=== PATIENT | female | born 1960 | race Caucasian/White ===

== ENCOUNTER 2022-06-18 08:00 | Outpatient (CLI) | payer BC, SELFPAY ==
--- NOTE | 2022-06-18 08:15 | MR_ITS ---
[facility] [address] [facility] [address] Phone:?[phone] Fax:?[phone] Referring Physician Information: José Miguel Camacho [address] [facility] [address] Phone:?[phone] Fax:?[phone] Patient:Glen Buitrago D.O.B:?1960 Sex:?Female Phone:?[phone] [facility] MRN:?[id number] Exam Date:?06/18/2022 ? EXAM: MRI EXAMINATION OF THE LEFT FOOT CLINICAL INFORMATION: Left foot pain. Status post injury. No history of surgery to this area. Evaluate lateral dorsal pain. TECHNICAL INFORMATION: Axial PD and STIR. Coronal T1, T2 and STIR. Sagittal PD and T2-weighted images acquired. INTERPRETATION: Bones and joints: DJD with minimal subchondral cystic change involving the first MTP joint. No evidence for an acute fracture or osseous contusion. No abnormal marrow edema pattern or evidence for periostosis to indicate occult stress reaction or stress fracture. No discrete osteochondral lesion or discrete lesion to indicate AVN. Mild osseous cystic changes within the tibial and fibular hallux sesamoid bones. No other marrow edema pattern identified. Ligaments: The Lisfranc ligament is intact. TMT joint alignment appears within normal limits. Collateral ligaments at the MTP joints appear intact without acute sprain or tear. Tendons: Partially visualized mild changes of peroneal tenosynovitis traversing the lateral foot. No evidence for a tendon tear or appreciable changes of tendinopathy. Remainder of the visualized flexor and extensor tendons appear intact without significant tendinopathy, and without tenosynovitis, tendon split or tendon disruption. Soft tissues: Mild to moderate fluid and edema signal between the third and fourth metatarsal heads. No evidence for a more discrete mass lesion. No other soft tissue cyst, mass or fluid collection. CONCLUSION: 1. No evidence for an occult fracture, osseous contusion or osteochondral lesion. 2. Partially visualized mild changes of peroneal tenosynovitis traversing the lateral foot. 3. Mild to moderate bursitis between the third and fourth metatarsal heads. 4. Mild first MTP joint osteoarthritis. Mild osseous cystic change to indicate additional degeneration involving the tibial and fibular hallux sesamoid bones. KES Electronically signed on 06/18/2022 1:35:00 PM by Bandar Cutler M.D.
== END 2022-06-18 08:01 | disposition home or self-care (01) ==
LOC: MRI 08:02
PROVIDERS: Visit Provider Physician Assistant Surgical
DX: S99.922A Unspecified injury of left foot, initial encounter (principal); M79.672 Pain in left foot; M77.52 Other enthesopathy of left foot and ankle; M19.072 Primary osteoarthritis, left ankle and foot
CPT/HCPCS: 73718

== ENCOUNTER 2022-12-09 13:42 | Emergency (ER) | payer BC, SELFPAY ==
[2022-12-09 14:02] VITALS: BP 107/75; PULSE 81; RESP 16; TEMP 35.8; O2SAT 98; BMI 28.7
--- NOTE | 2022-12-09 14:26 | ED.NURSE ---
Signed a Refusal of Services form at 1425 Pt left without being seen.
== END 2022-12-09 14:32 | disposition home or self-care (01) ==
LOC: ED 14:26
DX: Z53.21 Procedure and treatment not carried out due to patient leaving prior to being seen by health care provider (principal)

== ENCOUNTER 2022-12-10 08:46 | Emergency (ER) | payer BC, SELFPAY ==
[2022-12-10] VITALS (16 sets, daily range): BP systolic 109–130; BP diastolic 69–94; PULSE 75–96; RESP 18; TEMP 36.5; O2SAT 94–100; BMI 28.7
--- NOTE | 2022-12-10 09:26 | CRLHL7_ITS ---
For Patients: As a result of the Century Cures Act, medical imaging exams and procedure reports are released immediately into your electronic medical record. You may view this report before your referring provider. If you have questions, please contact your health care provider. INDICATION: Epigastric pain for 6 weeks TECHNIQUE: Axial images were obtained from the diaphragm to the pubic symphysis. Reformats were obtained in the coronal and sagittal plane. IV Contrast: 79 cc Isovue 370 Oral Contrast: None COMPARISON: Abdomen and pelvis CT 07/09/2017 FINDINGS: Lower chest: Unremarkable. Liver: Unremarkable. Normal in size and attenuation. No masses. Gallbladder and bile ducts: Gallbladder is not seen suggesting prior cholecystectomy. Minimal intrahepatic biliary dilatation. Common duct measures 10 millimeters. Spleen: Unremarkable. Normal in size without mass. Pancreas: Unremarkable. No mass or inflammation. Adrenal glands: Unremarkable. No nodules. Kidneys: The left kidney is unremarkable. Status post right nephrectomy. Vasculature: Unremarkable. GI tract: The stomach is unremarkable. No dilated loops of large or small intestine. However, there is some bowel wall thickening involving the distal ileum and terminal ileum with some mucosal hyperemia. Mild muscular atrophy of the right oblique musculature, suspect prior surgery at this level (series 2, image 64). Pelvis: Unremarkable. Bones: Mild degenerative disc disease lumbar spine. IMPRESSION: 1. Wall thickening involving the distal and terminal ileum with mucosal hyperemia consistent with an enteritis. Differential diagnosis includes inflammatory bowel disease and infectious enteritis. 2. Status post apparent cholecystectomy with minimal dilatation of the intrahepatic biliary tree and borderline diameter of the common duct. Suspect this represents post cholecystectomy reservoir effect although correlation with liver function studies can be performed. If there is a cholestatic picture, MRCP may have improved characterization. Please note that all CT scans at this facility use dose modulation, iterative reconstruction, and/or weight-based dosing when appropriate to reduce radiation dose to as low as reasonably achievable. Dictated by Dontae Stratton MD @ 12/10/2022 12:01:39 PM (Electronically Signed)
[2022-12-10] MEDS: ONDANSETRON 2 MG/ML inj 4 MG IVP (09:47)
[2022-12-10] MEDS: 0.9 % SODIUM CHLORIDE 1000 ml 1,000 ML IV (09:47)
[2022-12-10] MEDS: HYDROmorphone 0.5 mg/0.5 ml inj IVP (09:47)
[2022-12-10 09:49] LABS: Basophils Absolute Auto 0.02 K/uL (0.00-0.30); Basophils Percent Auto 0.3 % (0.0-3.0); Eosinophils Absolute Auto 0.17 K/uL (0.00-0.50); Eosinophils Percent Auto 2.8 % (0.0-7.0); Hemoglobin* 11.6 gm/dL (12.0-16.0); Immature Granulocytes Abs Auto 0.03 K/uL (0.00-0.30); Immature Granulocytes Pct Auto 0.5 %; Lymphocytes Absolute Auto 1.31 K/uL (0.90-2.90); Lymphocytes Percent Auto 21.4 % (20-44); Mean Corpuscular HGB Conc 31 gm/dL (32-36); Mean Corpuscular Hemoglobin 26 pg (26-34); Mean Corpuscular Volume 83 fL (80-100); Neutrophils Absolute Auto 4.17 K/uL (1.7-7.0); Platelet Count* 306 K/uL (140-440); RDW Coefficient of Variation % 13.9 % (11.5-15.5); Red Blood Count 4.44 m/uL (4.00-5.20); White Blood Count* 6.13 K/uL (4.50-11.00)
[2022-12-10 09:51] LABS: Slide Review Reflex No
[2022-12-10 09:58] LABS: Appearance Urine Clear (Clear); Bilirubin Urine Negative (Negative); Blood Urine Negative (Negative); Color Urine Yellow (Yellow); Glucose Urine Negative (Negative); Ketones Urine Negative (Negative); Leukocyte Esterase Urine Negative (Negative); Nitrite Urine Negative (Negative); Protein Urine Negative (Negative); Specific Gravity Urine <= 1.005 (1.000-1.030); Urobilinogen Urine 0.2 (0.2-1.0); pH Urine 5.5 (5.0-8.5)
[2022-12-10 10:02] LABS: Albumin* 3.7 g/dL (3.3-5.0); Chloride* 107 mmol/L (96-114); Potassium* 4.1 mmol/L (3.6-5.1); Sodium* 137 mmol/L (135-149)
[2022-12-10 10:04] LABS: Amylase* 43 U/L (18-89); Carbon Dioxide* 25 mmol/L (20-32); Creatinine* 1.1 mg/dL (0.5-1.5); Estimated Glomerular Filt Rate 56 ml/min; Total Protein* 6.4 g/dL (6.0-8.3)
[2022-12-10 10:05] LABS: Alkaline Phosphatase* 81 U/L (40-150); Aspartate Amino Transferase* 19 U/L (12-35); Bilirubin Direct* 0.3 mg/dL (0.0-0.5); Bilirubin Total* 0.4 mg/dL (0.1-1.5); Blood Urea Nitrogen* 13 mg/dL (7-30); Calcium* 8.8 mg/dL (8.4-10.6); Glucose* 104 mg/dL (60-115); Lipase* 93 U/L (23-300)
[2022-12-10 10:06] LABS: Alanine Aminotransferase* 16 U/L (4-35)
--- NOTE | 2022-12-10 10:12 | ED_ITS ---
HPI - Abdominal Pain General Date Seen: 12/10/22 Chief Complaint: Abdominal Pain Stated Complaint: Abdominal Pain/Diarrhea Time Seen by Provider: 12/10/22 08:49 Source: patient Mode of arrival: ambulatory Limitations: no limitations History of Present Illness HPI narrative: Patient is a 62-year-old female presents here for evaluation of epigastric discomfort, she has had for the past 6 weeks. It has gradually been worse, the last 3 weeks she has lost approximately 15 lb, whenever she eats she gets the epigastric discomfort. It is always there at a low level but worse, with any sort to eating. A little bit of radiation to her back, but no other radiation anywhere else, she has tried a number remedies including Tums, Pepto-Bismol. But these have not really given her relief. She came to the emergency room yesterday but because of the wait times left, as she had another appointment. She is having some diarrhea she describes 3-4 stools per day, loose, is somewhat dark, but no blood within them. She has also vomited a couple times also did with this. Pain most recently over the weekend but there is no blood or darkening over vomit. She does have a previous history of endoscopy at least 10 years ago, for reflux. Colonoscopy was also done 10 years ago, History of previous cholecystectomy, appendectomy, and or right-sided nephrectomy done for the indication of renal cell cancer. She is taking her medications as directed, she takes nonsteroidals every day for chronic headaches and has done so for greater than 6 years. MD elicited complaint: abdominal pain Related Data Patient : No Home Medications Medication Instructions Recorded Confirmed esomeprazole magnesium 40 mg 40 mg PO DAILY 05/09/22 12/09/22 capsule,delayed release montelukast 10 mg tablet 10 mg PO QDAY 05/09/22 12/09/22 nortriptyline 25 mg capsule 25 mg PO QDAY 05/09/22 12/09/22 trazodone 100 mg tablet 200 mg PO QDAY 05/09/22 12/09/22 acetaminophen 650 mg 650 mg PO Q8H 05/10/22 12/09/22 tablet,extended release (Tylenol Arthritis Pain) ascorbic acid (vitamin C) 500 mg mg PO 05/10/22 12/09/22 capsule zinc gluconate 100 mg tablet 100 mg PO ONCE 05/10/22 12/09/22 Previous Rx's Medication Instructions Recorded albuterol sulfate 90 mcg/actuation 2 inh inhalation Q6-8H PRN 05/16/22 aerosol inhaler shortness of breath or wheezing #6.7 ea oxycodone-acetaminophen 5 mg-325 1 tab PO QID PRN pain #14 tabs 12/10/22 mg tablet (Percocet) sucralfate 1 gram tablet (Carafate) 1 g PO TID #90 tabs 12/10/22 Allergies Allergy/AdvReac Type Severity Reaction Status Date / Time aspirin Allergy Intermediate emesis Verified 12/10/22 10:52 codeine Allergy Intermediate emesis Verified 12/10/22 10:52 house dust Allergy Intermediate Difficulty Verified 12/10/22 10:52 Breathing mold Allergy Intermediate Difficulty Verified 12/10/22 10:52 Breathing Penicillins Allergy Intermediate Swelling Verified 12/10/22 10:52 of Lip/Tongue/Throat sumatriptan Allergy Unknown Verified 12/10/22 10:52 Review of Systems Status of ROS Reports: 10 or more systems reviewed and unremarkable except as noted in History and below PFSH PFS Medical History Fracture of left foot ?S92.902A - Unspecified fracture of left foot, initial encounter for closed fracture (ICD-10) Surgical History Fibroids ?D21.9 - Benign neoplasm of connective and other soft tissue, unspecified (ICD-10) H/O arthroscopy of right knee ?Z98.890 - Other specified postprocedural states (ICD-10) H/O esophagogastroduodenoscopy ?Z98.890 - Other specified postprocedural states (ICD-10) H/O: hysterectomy ?Z90.710 - Acquired absence of both cervix and uterus (ICD-10) History of appendectomy ?Z90.49 - Acquired absence of other specified parts of digestive tract (ICD- 10) History of unilateral nephrectomy ?Z90.5 - Acquired absence of kidney (ICD-10) Hx of cholecystectomy ?Z90.49 - Acquired absence of other specified parts of digestive tract (ICD- 10) Status post surgical manipulation of ankle joint ?Z98.890 - Other specified postprocedural states (ICD-10) Family History Sister Breast cancer Brother Lung cancer Mother Coronary artery disease Stroke Brain aneurysm Unknown High blood pressure Paternal Grandmother Diabetes Uncle Prostate cancer Social History Smoking Status: Former smoker Do you use any of these nicotine containing products: None Second hand tobacco smoke exposure: No How often do you have a drink containing alcohol: never AUDIT-C Alcohol total score: 0 Non-prescribed substance use: denies use Exam Narrative: Exam Narrative: Patient is seen and stabilization room 2, she has no distress speaking to me normally, her pupils are equal round reactive to light, there is no scleral icterus redness or TMs are normal her oropharynx is normal there is no lymphadenopathy anterior posterior chains, chest is good air entry bilaterally w ith no wheezing crackles noted no splinting, no signs of respiratory distress. Heart sounds no clicks murmurs or gallops are noted, there is no tenderness to palpation over chest she is very tender on light tell palpation over her epigastric region, in right upper quadrant region. Bowel sounds are normal throughout all other areas, she has a little bit of tenderness lower down, there is no peritoneal signs, no CVA tenderness, no hernias noted. No organomegaly from what I can see. Lower extremity show no pitting edema swelling she moves extremities independently and well. Skin reveals no petechiae rashes, she is neurologically intact in her upper lower extremities, and moves normally. Const: Vital Signs, click to edit/add: Vital Signs - 24 hr 12/10/22 08:53 12/10/22 09:58 12/10/22 10:00 Temperature 97.7 F Pulse Rate 82 Pulse Rate [Pulse Oximeter] 96 92 Respiratory Rate 18 18 Blood Pressure Blood Pressure [Ri ght Upper Arm] 128/82 130/94 H Pulse Oximetry 100 100 99 Oxygen Delivery Me thod Room Air Room Air 12/10/22 10:01 12/10/22 10:30 12/10/22 10:31 Temperature Pulse Rate 75 84 81 Pulse Rate [Pulse Oximeter] Respiratory Rate Blood Pressure 110/78 109/80 Blood Pressure [Ri ght Upper Arm] Pulse Oximetry 99 96 99 Oxygen Delivery Me thod 12/10/22 11:00 12/10/22 11:01 12/10/22 11:10 Temperature Pulse Rate 81 90 Pulse Rate [Pulse Oximeter] Respiratory Rate Blood Pressure 117/79 Blood Pressure [Ri ght Upper Arm] Pulse Oximetry 98 98 Oxygen Delivery Me thod 12/10/22 11:30 12/10/22 11:31 12/10/22 12:00 Temperature Pulse Rate 88 79 76 Pulse Rate [Pulse Oximeter] Respiratory Rate Blood Pressure 120/77 Blood Pressure [Ri ght Upper Arm] Pulse Oximetry 95 96 97 Oxygen Delivery Me thod 12/10/22 12:01 12/10/22 12:02 12/10/22 12:30 Temperature Pulse Rate 82 76 75 Pulse Rate [Pulse Oximeter] Respiratory Rate Blood Pressure 112/69 Blood Pressure [Ri ght Upper Arm] Pulse Oximetry 94 96 96 Oxygen Delivery Me thod 12/10/22 12:31 Temperature Pulse Rate 80 Pulse Rate [Pulse Oximeter] Respiratory Rate Blood Pressure 116/75 Blood Pressure [Ri ght Upper Arm] Pulse Oximetry 96 Oxygen Delivery Me thod Documenting provider has reviewed patient's vital signs: yes Course Course Hospital Course: Discussed with the patient, her CT shows some mild thickening possibly concerning for ileitis, given her pain however I think this is more likely upper GI in nature, I spoke to both Dr. Alejandra Solo from General surgery, and also Dr. Dagoberto Norwood. Patient is stable, and I think would benefit from a urgent upper endoscopy, explained this to the patient also, we will try to make this happen either or Friday this week, will put the patient on Carafate, continue with her proton pump inhibitor, give her some pain medication, if she has any bleeding, increasing pain, or other issue she will come back to the ER, but I think this is a good plan, if this is upper endoscopy is negative then the workup will go forward for the other possibilities including inflammatory bowel disease. Reassuring CT is discussed with her. Vital Signs Vital signs: Initial Vital Signs Temperature 97.7 F 12/10/22 08:53 Temperature Source Temporal Artery Scan 12/10/22 08:53 Pulse Rate 96 12/10/22 08:53 Respiratory Rate 18 12/10/22 08:53 Blood Pressure 128/82 12/10/22 08:53 Blood Pressure Mean 97 12/10/22 08:53 Blood Pressure Position Sitting 12/10/22 08:53 Pulse Oximetry 100 12/10/22 08:53 Oxygen Delivery Method Room Air 12/10/22 08:53 Vital Signs Temperature 97.7 F 12/10/22 08:53 Pulse Rate 96 12/10/22 08:53 Respiratory Rate 18 12/10/22 08:53 Blood Pressure 128/82 12/10/22 08:53 Pulse Oximetry 100 12/10/22 08:53 Oxygen Delivery Method Room Air 12/10/22 08:53 Temperature 97.7 F 12/10/22 08:53 Pulse Rate 80 12/10/22 12:31 Respiratory Rate 18 12/10/22 09:58 Blood Pressure 116/75 12/10/22 12:31 Pulse Oximetry 96 12/10/22 12:31 Oxygen Delivery Method Room Air 12/10/22 09:58 MDM - Abdominal Pain MDM Narrative Medical decision making narrative: During the evaluation of this patient I considered multiple differential diagnosis including life-threatening differentials which are appendicitis, aortic aneurysm, mesenteric ischemia, bowel perforation, ectopic , volvulus and bowel obstruction, other differential diagnosis include but are not limited to inflammatory bowel disease, cholecystitis, pancreatitis, hepatitis, gastritis, GERD, diverticulitis, peptic ulcer disease, pyelonephritis/UTI, renal colic/stone, pelvic inflammatory disease, cervicitis, endometritis, intrauterine , dysfunctional uterine bleeding, ovarian cyst/torsion, spontaneous as well as other etiologies Medical Records Attestation: I reviewed the patient's medical records. Lab Data Attestation: I reviewed the patient's lab results. Lab results narrative: Mildly low hemoglobin that is slightly lower than previous. Labs: Lab Results 12/10/22 Range/Units 09:40 WBC 6.13 (4.50-11.00) K/uL RBC 4.44 (4.00-5.20) m/uL Hgb 11.6 L (12.0-16.0) gm/dL Hct 37.0 (33.0-51.0) % MCV 83 (80-100) fL MCH 26 (26-34) pg MCHC 31 L (32-36) gm/dL RDW Coeff of Myriam 13.9 (11.5-15.5) % Plt Count 306 (140-440) K/uL Neut % (Auto) 68.0 (42.0-72.0) % Lymph % (Auto) 21.4 (20-44) % [place] % (Auto) 7.0 (0.0-11.0) % Eos % (Auto) 2.8 (0.0-7.0) % Baso % (Auto) 0.3 (0.0-3.0) % Neut # (Auto) 4.17 (1.7-7.0) K/uL Lymph # (Auto) 1.31 (0.90-2.90) K/uL [place] # (Auto) 0.40 (0.00-0.90) K/UL Eos # (Auto) 0.17 (0.00-0.50) K/uL Baso # (Auto) 0.02 (0.00-0.30) K/uL Sodium 137 (135-149) mmol/L Potassium 4.1 (3.6-5.1) mmol/L Chloride 107 (96-114) mmol/L Carbon Dioxide 25 (20-32) mmol/L BUN 13 (7-30) mg/dL Creatinine 1.1 (0.5-1.5) mg/dL Estimated Creat Clear 43.30 Estimated GFR 56 ml/min Glucose 104 (60-115) mg/dL Calcium 8.8 (8.4-10.6) mg/dL Total Bilirubin 0.4 (0.1-1.5) mg/dL Direct Bilirubin 0.3 (0.0-0.5) mg/dL AST 19 (12-35) U/L ALT 16 (4-35) U/L Alkaline Phosphatase 81 (40-150) U/L Total Protein 6.4 (6.0-8.3) g/dL Albumin 3.7 (3.3-5.0) g/dL Amylase 43 (18-89) U/L Lipase 93 (23-300) U/L Urine Color Yellow (Yellow) Urine Appearance Clear (Clear) Urine pH 5.5 (5.0-8.5) Ur Specific [place] <= 1.005 (1.000-1.030) Urine Protein Negative (Negative) Urine Glucose (UA) Negative (Negative) Urine Ketones Negative (Negative) Urine Blood Negative (Negative) Urine Nitrite Negative (Negative) Urine Bilirubin Negative (Negative) Urine Urobilinogen 0.2 (0.2-1.0) Ur Leukocyte Esterase Negative (Negative) Urine RBC 0-2 (0-2) Urine WBC 0-2 (0-5) Ur Squamous Epith Cells None (None-Few) Urine Bacteria Few A (None) Ethyl Alcohol < 0.01 L (0.01-0.03) % SARS-CoV-2 (PCR) Negative SARS-CoV-2 (Negative) Influenza Type A (PCR) Negative PCR FLU A (Negative) Influenza Type B (PCR) Negative PCR FLU B (Negative) RSV (PCR) Negative PCR RSV (Negative) POC Troponin I 0.00 L (0.01-0.04) ng/ml Imaging Data CT scan - abdomen: Attestation: I have reviewed the pertinent imaging results. Radiologist's impression: atient: BEVERLEY GONZALES Facility:?[facility] Patient ID:?[id number] Site Patient ID:?[id number]. Site :?[id number] Study:?CT Abdomen/Pelvis W/ 79CC [id number] 10:56:19 AM Ordering Physician:Bessie Nunez Final Report: INDICATION: Epigastric pain for 6 weeks TECHNIQUE: Axial images were obtained from the diaphragm to the pubic symphysis. Reformats were obtained in the coronal and sagittal plane. IV Contrast: 79 cc Isovue 370 Oral Contrast: None COMPARISON: Abdomen and pelvis CT 07/09/2017 FINDINGS: Lower chest: Unremarkable. Liver: Unremarkable. Normal in size and attenuation. No masses. Gallbladder and bile ducts: Gallbladder is not seen suggesting prior cholecystectomy. Minimal intrahepatic biliary dilatation. Common duct measures 10 millimeters. Spleen: Unremarkable. Normal in size without mass. Pancreas: Unremarkable. No mass or inflammation. Adrenal glands: Unremarkable. No nodules. Kidneys: The left kidney is unremarkable. Status post right nephrectomy. Vasculature: Unremarkable. GI tract: The stomach is unremarkable. No dilated loops of large or small intestine. However, there is some bowel wall thickening involving the distal ileum and terminal ileum with some mucosal hyperemia. Mild muscular atrophy of the right oblique musculature, suspect prior surgery at this level (series 2, image 64). Pelvis: Unremarkable. Bones: Mild degenerative disc disease lumbar spine. IMPRESSION: 1. Wall thickening involving the distal and terminal ileum with mucosal hyperemia consistent with an enteritis. Differential diagnosis includes inflammatory bowel disease and infectious enteritis. 2. Status post apparent cholecystectomy with minimal dilatation of the intrahepatic biliary tree and borderline diameter of the common duct. Suspect this represents post cholecystectomy reservoir effect although correlation with liver function studies can be performed. If there is a cholestatic picture, MRCP may have improved characterization. Please note that all CT scans at this facility use dose modulation, iterative reconstruction, and/or weight-based dosing when appropriate to reduce radiation dose to as low as reasonably achievable. Dictated by Dontae Stratton MD @ 12/10/2022 12:01:39 PM (Electronic Signature) Discharge Plan Discharge Clinical Impression: Abdominal pain Patient Disposition: Home w/ Parent or Adult Condition: Stable Instructions: Gastritis (ED), Diet for Stomach Ulcers and Gastritis (ED), GERD (Gastroesophageal Reflux Disease) (DC), Abdominal Pain (ED), Upper Endoscopy (DC) Additional Instructions: home,rest and clear fluids, Endoscopy on friday, discussed with and , if vomiting is worse, or passing blood then return to the ER Activity Level: Light activity Discharge Diet: Full Liquid and Clear Liquid Prescriptions: New sucralfate [Carafate] 1 gram tablet 1 g PO TID Qty: 90 2RF oxycodone-acetaminophen [Percocet] 5-325 mg tablet 1 tab PO QID PRN (Reason: pain) Qty: 14 0RF No Action zinc gluconate 100 mg tablet 100 mg PO ONCE ascorbic acid (vitamin C) 500 mg capsule PO acetaminophen [Tylenol Arthritis Pain] 650 mg tablet extended release 650 mg PO Q8H trazodone 100 mg tablet 200 mg PO QDAY esomeprazole magnesium 40 mg capsule,delayed release(DR/EC) 40 mg PO DAILY montelukast 10 mg tablet 10 mg PO QDAY Patient Comments: TAKE 1 TAB BY MOUTH AT BEDTIME nortriptyline 25 mg capsule 25 mg PO QDAY albuterol sulfate 90 mcg/actuation HFA aerosol inhaler 2 inh inhalation Q6-8H PRN (Reason: shortness of breath or wheezing) Qty: 6.7 5RF Follow Up/Referrals: Andrew Israel PA-C [Primary Care Provider] - Stand Alone Forms: [employer] Info Instructions
[2022-12-10 10:13] LABS: Ethanol* < 0.01 % (0.01-0.03)
[2022-12-10 10:22] LABS: Bacteria Urine Few; RBC Urine 0-2 (0-2); WBC Urine 0-2 (0-5)
[2022-12-10 10:26] LABS: PCR FLU A Negative PCR FLU A (Negative); PCR FLU B Negative PCR FLU B (Negative); PCR RSV Negative PCR RSV (Negative)
[2022-12-10 10:27] LABS: SARS PCR* Negative SARS-CoV-2 (Negative)
[2022-12-10] MEDS: MORPHINE 4 MG/ML INJ IVP (11:56)
== END 2022-12-10 12:40 | disposition home or self-care (01) ==
PROVIDERS: Emergency Provider Family Medicine; PCP Physician Assistant Medical
DX: R10.13 Epigastric pain (principal)
CPT/HCPCS: 36415; 74177; 80048; 80076; 81001; 82077; 82150; 83690; 84484; 85025; 87086; 87186; 87631; 96374; 96375; 99284; J1170; J2270; J2405; J7030; Q9967

== ENCOUNTER 2022-12-13 08:00 | Outpatient (CLI) | payer BC, SELFPAY ==
--- NOTE | 2022-12-13 09:49 | W.ANESCHARGE ---
Anesthesia Charges Start Date/Time Anesthesia Start Date: 12/13/22 Anesthesia Start Time: 09:29 Stop Date/Time Anesthesia Stop Date: 12/13/22 Anesthesia Stop Time: 09:46
== END 2022-12-13 08:01 | disposition home or self-care (01) ==
PROVIDERS: PCP Physician Assistant Medical; Visit Provider Internal Medicine
DX: R19.8 Other specified symptoms and signs involving the digestive system and abdomen (principal)
CPT/HCPCS: 00731; 43239; 88305; 88342; J2405; J3490

== ENCOUNTER 2023-01-02 08:59 | Outpatient (CLI) | payer BC, SELFPAY | END 2023-01-02 09:00 | disposition home or self-care (01) | LOC: NFLDREF 01-04 08:21 | PROVIDERS: PCP Physician Assistant Medical; Referring Provider Physician Assistant Medical; Visit Provider Physician Assistant Medical | DX: R19.7 Diarrhea, unspecified (principal) | CPT/HCPCS: 87505 ==

== ENCOUNTER 2023-01-07 13:55 | Outpatient (REF) | payer BC, SELFPAY ==
[2023-01-07 14:21] LABS: Basophils Absolute Auto 0.02 K/uL (0.00-0.30); Basophils Percent Auto 0.2 % (0.0-3.0); Eosinophils Absolute Auto 0.17 K/uL (0.00-0.50); Hematocrit 41.2 % (33.0-51.0); Hemoglobin* 12.7 gm/dL (12.0-16.0); Immature Granulocytes Abs Auto 0.04 K/uL (0.00-0.30); Immature Granulocytes Pct Auto 0.5 %; Lymphocytes Absolute Auto 1.81 K/uL (0.90-2.90); Lymphocytes Percent Auto 20.9 % (20-44); Mean Corpuscular HGB Conc 31 gm/dL (32-36); Mean Corpuscular Hemoglobin 26 pg (26-34); Mean Corpuscular Volume 85 fL (80-100); Monocytes Percent Auto 5.5 % (0.0-11.0); Neutrophils Absolute Auto 6.14 K/uL (1.7-7.0); Neutrophils Percent Auto 70.9 % (42.0-72.0); Platelet Count* 366 K/uL (140-440); RDW Coefficient of Variation % 13.7 % (11.5-15.5); Red Blood Count 4.87 m/uL (4.00-5.20); White Blood Count* 8.66 K/uL (4.50-11.00)
[2023-01-07 14:22] LABS: Slide Review Reflex No
[2023-01-07 15:37] LABS: Erythrocyte SedimentationRate* 9 mm/hr (2-20)
[2023-01-07 16:12] LABS: Albumin* 3.9 g/dL (3.3-5.0); Chloride* 105 mmol/L (96-114); Sodium* 139 mmol/L (135-149)
[2023-01-07 16:13] LABS: Potassium* 3.8 mmol/L (3.6-5.1)
[2023-01-07 16:15] LABS: Aspartate Amino Transferase* 19 U/L (12-35); Bilirubin Total* 0.4 mg/dL (0.1-1.5); Carbon Dioxide* 26 mmol/L (20-32); Estimated Glomerular Filt Rate 63 ml/min; Total Protein* 6.4 g/dL (6.0-8.3)
[2023-01-07 16:16] LABS: Alanine Aminotransferase* 14 U/L (4-35); Alkaline Phosphatase* 78 U/L (40-150); Blood Urea Nitrogen* 12 mg/dL (7-30); Glucose* 92 mg/dL (60-115)
[2023-01-07 16:45] LABS: Thyroid Stimulating Hormone* 0.603 uIU/mL (0.270-4.20)
== END 2023-01-07 13:56 | disposition home or self-care (01) ==
LOC: NPINS 13:55
PROVIDERS: PCP Physician Assistant Medical; Visit Provider Physician Assistant
DX: R19.7 Diarrhea, unspecified (principal)
CPT/HCPCS: 80053; 84443; 85025; 85651; 86140

== ENCOUNTER 2023-04-18 12:32 | Outpatient (REF) | payer BC, SELFPAY ==
[2023-04-18 12:53] LABS: Iron* 42 ug/dL (37-170)
[2023-04-18 13:03] LABS: Percent Iron Saturation 10 % (20-50); Total Iron Binding Capacity 417 ug/dL (265-497)
[2023-04-18 13:30] LABS: Ferritin* 14.8 ng/mL (11.1-264.0)
[2023-04-19 13:09] LABS: Folate, Serum 15.9 ng/mL (>=5.9)
== END 2023-04-18 12:33 | disposition home or self-care (01) ==
LOC: NPINS 12:32
PROVIDERS: PCP Physician Assistant Medical
DX: K50.00 Crohn's disease of small intestine without complications (principal)
CPT/HCPCS: 82728; 82746; 83540; 83550

== ENCOUNTER 2023-04-25 13:27 | Outpatient (REF) | payer BC, SELFPAY ==
[2023-04-25 15:03] LABS: C.Difficile Negative (Negative); CDIFFEPI 027 PRESUMPTIVE NEGATIVE (Negative)
== END 2023-04-25 13:28 | disposition home or self-care (01) ==
LOC: NPINS 13:27
PROVIDERS: PCP Physician Assistant Medical; Visit Provider Colon & Rectal Surgery
DX: R19.7 Diarrhea, unspecified (principal)
CPT/HCPCS: 87493

== ENCOUNTER 2023-07-18 22:28 | Outpatient (REF) | payer BC, SELFPAY ==
--- OUTSIDE RECORDS SUMMARY | 2023-07-18 22:32 | XMS_ITS | Continuity of Care Document ---
Author Name Unknown Organization [facility] Address [address] [address] [place] [address] Phone Care Team Providers Care Science Manager Name Role Phone Bhavin Rosales MD, Adithya Unavailable Unavailabl e Allergies, Adverse Reactions, Alerts Substance Reaction Status Criticality Nausea/Vomiting Active No Informati on MEPERIDINE HCL Nausea/Vomiting Active No Informa tion oxycodone Nausea/Vomiting Active No Informati on OXYCODONE HCL Nausea/Vomiting Active No Informat ion acetaminophen Nausea/Vomiting Active No Informat ion aspirin Active No Information sumatriptan Active No Information PENICILLIN Active No Information mold Active No Information codeine Active No Information latex Active No Information Medications Medication Instructions Dosage Effective Dates (start - stop) Status Comments Tylenol 325 mg tablet Take Tylenol 650mg PO half hour before infusion - Active Remicade 100 mg intravenous solution Administer Remicade 5mg/kg every eight weeks, infuse by IV route - Active Venofer 200 mg iron/10 mL intravenous solution Administer 5 200mg doses of Venofer by IV route over a 14 day period over at least 15 minutes - Active DILAUDID (unknown strength) take .5 mg by oral route every 4 - 6 hours as needed Not Available - Active enoxaparin 40 mg/0.4 mL subcutaneous syringe inject 0.4 milliliter by subcutaneous route every day 40 MG - Active cyanocobalamin (vit B-12) 1,000 mcg/mL injection solution Administer Vitamin B-12 1,000mcg/mL every month, by intramuscular route - Active sodium chloride 0.9 % intravenous solution Administer 0.9% NaCl 500mL over a minimum of 31 minutes, one time, by IV route - Active methocarbamol 500 mg tablet take 1 tablet by oral route 4 times every day 500 MG - Active Senokot 8.6 mg tablet take 2 tablet by oral route every bedtime 2 tablet - Active esomeprazole magnesium 40 mg capsule,delayed release take 1 capsule by oral route 2 times daily 30 minutes to 1 hour before breakfast and dinner - Active Remicade 100 mg intravenous solution Administer Remicade 5mg/kg at weeks 0, 2 and 6. Infuse by IV route. - Active Remicade 100 mg intravenous solution Administer Remicade 5mg/kg every eight weeks, infuse by IV route - Active acetaminophen ER 650 mg tablet,extended release take 1 tablet by oral route every 8 hours as needed swallowing whole with water. Do not break, crush, dissolve and/or chew. as needed 650 MG - Active ondansetron 4 mg disintegrating tablet Take 1-2 tablets by mouth every 8 hours as needed for nausea during colon prep. - Active procedure date 01/28/23 Proair Digihaler 90 mcg/actuation aerosol powder breath act, sensor inhale 2 puff by inhalation route every 4 - 6 hours as needed as needed 180 MCG - Active famotidine 40 mg tablet take 1 tablet by oral route every day at bedtime 40 MG - Active nortriptyline 25 mg capsule take 4 capsule by oral route every day 100 MG - Active TRAZODONE HCL (unknown strength) patient takes 200mg Not Available - Active Procedures Procedure Date Colonoscopy Flex; W/bx 1/mx Moderate Sedation, Initial 15 minutes Oc Init Inpt Cons New/est Mod-hi 3 Subsqt Hosp-da E&m Minr Compl 3 Subsqt Hosp-da E&m Minr Compl 3 Venofer Iv Infus Therap/dx-by Phys; To 23 Methylpred Na Succinate-40 Mg 3 Each Add Seq IV Push, Non Chem 23 Inj Diphenhydramine Hcl To 50 3 Venofer Iv Infus Therap/dx-by Phys; To 23 Remicade Per 10 Mg Remicade Per 10 Mg IV Infusion Up To 1 Hour Each Additional Hour Routine Serum Collection Offic/outpt E&m Estab Low-mod 3 Routine Serum Collection Init Inpt Cons New/est Mod-hi 3 Subsqt Hosp-da E&m Minr Compl 3 Remicade Per 10 Mg Remicade Per 10 Mg IV Infusion Up To 1 Hour Each Additional Hour Offic/outpt E&m Estab Low-mod 3 Subsqt Hosp-da E&m Minr Compl 3 Subsqt Hosp-da E&m Sig Compl 3 23 Subsqt Hosp-da E&m Minr Compl 3 Subsqt Hosp-da E&m Minr Compl 3 Subsqt Hosp-da E&m Minr Compl 3 Subsqt Hosp-da E&m Minr Compl 3 Subsqt Hosp-da E&m Stable 15 M 23 Subsqt Hosp-da E&m Stable 15 M 23 Init Inpt Cons New/est Mod-hi 3 Offic/outpt E&m Estab Mod-hi 2 23 Colonoscopy Flex; W/remov Les- 23 Colonoscopy Flex; W/bx 1/mx Level Iv-surg Path Gross/micro Office Cons New/estab Mod Advance Directives Directive Yes / No Effective Date File Name No Information Encounters Encounter Description Practice Location Reason(s) For Visit Diagnoses Date Provider Providers Copied on Encounter [facility], [address] [address], [place], [id number], [place] tel:[phone] [facility] Crohn's disease of small intestine without complications 3 Bhavin Haji. [address] [facility], [facility] [address], [place], [address], [place]. tel:[phone] [facility], [address] [address], [place], [place], [address], [place] tel:[phone] [facility] No Information - 3 Saulo Malave. [address], [id number], [place]. tel:[phone] Referring Provider: Andrew PRADHAN, [address], [place], [address]. tel:[phone] Init Inpt Cons New/est Mod-hi [facility], [address] [address], [place], [place], [address], [place] tel:[phone] [facility] No Information 3 Marshall Hernández. [address] [facility], [address], [id number], [place]. tel:[phone] Referring Provider: Andrew PRADHAN [address], [place], [address]. tel:[phone] [facility], [address] [address], [place], [address], [place] tel:[phone] [facility] Crohn's disease of small intestine without complications 9 3 Edstrmeredith Cuellar. [address] [facility], [facility] [address], [place], [address], [place]. tel:[phone] [facility], [address] [address], [place], [address], [place] tel:[phone] [facility] Crohn's disease of small intestine without complications 0 3 Edstrmeredith Cuellar. [address] [facility], [facility] [address], [place], [place], [address], [place]. tel:[phone] [facility], [address] [address], [place], [address], [place] tel:[phone] [facility] Iron deficiency anemia, unspecified Sep-0 3 Al Encinas. [address] [facility], [address], [address], [place]. tel:[phone] Referring Provider: Referral Self. [facility], [address] [address], [place], [address], [place] tel:[phone] [facility] Iron deficiency anemia, unspecified Sep-0 3 Manuel Lemons. [address] [facility], [facility] [address], [place], [address], [place]. tel:[phone] Referring Provider: Referral Self. [facility], [address] [address], [place], [address], [place] tel:[phone] [facility] Iron deficiency anemia, unspecified iron deficiency anemia type Sep-0 3 Edstrmeredith Cuellar. [address] [facility], [facility] [address], [place], [address], [place]. tel:[phone] [facility], [address] [address], [place], [address], [place] tel:[phone] [facility] No Information 3 Edstrmeredith Cuellar. [address] [facility], [facility] [address], [place], [address], [place]. tel:[phone] [facility], [address] [address], [place], [address], [place] tel:[phone] [facility] Crohn's disease of small intestine without complications 3 Christopher Pak. [address] [facility], [facility] [address], [place], [place], [address], [place]. tel:[phone] Referring Provider: Referral Self. [facility], [address] [address], [place], [address], [place] tel:[phone] [facility] Crohn's disease of small intestine without complications 3 Emerson Cuellar. [address] [facility], [facility] [address], [place], [place], [address], [place]. tel:[phone] Referring Provider: Alisa WEST, [address] [facility] [address], [place], [address]. tel:[phone] [facility], [address] [address], [place], [address], [place] tel:[phone] [facility] Iron deficiency anemia, unspecified iron deficiency anemia type 3 Emerson Cuellar. [address] [facility], [facility] [address], [address], [place]. tel:[phone] [facility], [address] [address], [place], [address], [place] tel:[phone] [facility] Terminal ileitis without complication 3 Emerson Cuellar. [address] [facility], [facility] [address], [address], [place]. [phone] [facility], [address] [address], [place], [address], [place] tel:[phone] [facility] Terminal ileitis without complication 3 [place] Cuellar. [address] [facility], [facility] [address], [place], [address], [place]. tel:[phone] Offic/outpt E&m Estab Low-mod [facility], [address] [address], [place], [address], [place] tel:[phone] [facility] GI Symptoms or Concerns (chief complaint) Additional Narrative (chief complaint) Terminal ileitis without complication 3 Emerson Cuellar. [address] [facility], [address], [address], [place]. tel:[phone] Referring Provider: Referral Self. [facility], [address] [address], [place], [address], [place] tel:[phone] [facility] Terminal ileitis without complication 3 Sonny Freeman. [address] [facility] [address], [place], [address], [place]. tel:[phone] [facility], [address] [address], [place], [address], [place] tel:[phone] [facility] Terminal ileitis without complication 3 Sonny Freeman. [address] [place] [address], [id number], [place]. tel:[phone] Init Inpt Cons New/est Mod-hi [facility], [address] [address], [place], [address], [place] tel:[phone] [facility] No Information 3 Citlalli Gupta. [address] [facility], [address], [address], [place]. tel:[phone] Referring Provider: Carolin Harris PAC R, [address], [place], [address]. tel:[phone] [facility], [address] [address], [place], [address], [place] tel:[phone] [facility] B12 deficiency 3 Sonny Freeman. [address] [facility], [facility] [address], [address], [place]. tel:[phone] [facility], [address] [address], [place], [address], [place] tel:[phone] [facility] Terminal ileitis without complication 3 Reji Ashley. [address] [facility], [facility] [address], [place], [address], [place]. tel:[phone] Referring Provider: Referral Self. Offic/outpt E&m Estab Low-mod [facility], [address] [address], [facility] [place], [address], [place] tel:[phone] [facility] GI Symptoms or Concerns (chief complaint) Terminal ileitis without complicationD ietary counseling and surveillance 3 Sonny Freeman. [address] [facility], [facility] [address], [address], [place]. tel:[phone] Referring Provider: Referral Self. [facility], [address] [address], [facility] [place], [address], [place] tel:[phone] [facility] Terminal ileitis without complication 3 Chong Mckeon. [address] [facility], [facility] [address], [place], [address], [place]. tel:[phone] Kenny Limon MD. tel:[phone] Subsqt Hosp-da E&m Minr Compl [facility], [address] [address], [place], [place], [address], [place] tel:[phone] [facility] No Information 3 Arjun Pascual. [address] [facility], [facility] [address], [place], [address], [place]. tel:[phone] Referring Provider: Alton Díaz DO, [address] [facility] [address], [place], [address]. tel:[phone] [facility], [address] [address], [facility], [place], [address], [place] tel:[phone] [facility] No Information 3 Edstrmeredith Cuellar. [address] [facility], [facility] [address], [address], [place]. tel:[phone] Subsqt Hosp-da E&m Sig Compl 3 [facility], [address] [address], [place], [address], [place] tel:[phone] [facility] No Information 3 Marshall Hernández. [address] [facility], [facility] [address], [place], [place], [address], [place]. tel:[phone] Referring Provider: Betty Olivares NP, [address] [facility] [address], [place], [address]. tel:[phone] Subsqt Hosp-da E&m Minr Compl [facility], [address] [address], [place], [address], [place] tel:[phone] [place] [address] No Information 3 Alexander Foley. [address] [facility], [facility] [address], [address], [place]. [phone] Referring Provider: Og Munoz MD S, [address] [facility] [address], [place], [address]. tel:[phone] [facility], [address] [address], [place], [address], [place] tel:[phone] [place] [address] No Information 3 FerrazDeTole do [facility] Jeannine. [address] [facility], [facility] [address], [place], [place], [address], [place]. tel:[phone] Subsqt Hosp-da E&m Minr Compl [facility], [address] [address], [place], [address], [place] tel:[phone] [facility] No Information 3 Zoë Bazan. [address] [facility], [facility] [address], [place], [address], [place]. [phone] Referring Provider: Betty Olivares NP, [address] [place] [address] [address], [place], [address]. tel:[phone] [facility], [address] [address], [place], [address], [place] tel:[phone] [facility] Terminal ileitis without complication 3 Citlalli Gupta. [address] [facility], [facility] [address], [place], [place], [address], [place]. tel:[phone] Subsqt Hosp-da E&m Minr Compl [facility], [address] [address], [place], [address], [place] tel:[phone] [facility] No Information 3 Citlalli Gupta. [address] [facility], [address], [address], [place]. tel:[phone] Referring Provider: Candy Lennon NP, [address] [place] [address], [address]. tel:[phone] Subsqt Hosp-da E&m Minr Compl [facility], [address] [address], [place], [address], [place] tel:[phone] [facility] No Information 3 No Information Init Inpt Cons New/est Mod-hi [facility], [address] [address], [place], [address], [place] tel:[phone] [facility] No Information 3 Edmond Pedro. [address] [facility], [facility] [address], [place], [place], [address], [place]. tel:[phone] Referring Provider: Mayela Pruitt NP, [address] [place] [address], [address]. tel:[phone] Offic/outpt E&m Estab Mod-hi 2 [facility], [address] [address], [place], [address], [place] tel:[phone] [facility] GI Symptoms or Concerns (chief complaint) Additional Narrative (chief complaint) Terminal ileitis without complicationD iarrhea, unspecifiedEp igastric painAbdominal pain, lowerWeight loss 3 Edstrom [facility] Cuellar. [address] [facility], [address], [id number], [place]. tel:[phone] Kenny Limon MD. tel:[phone] Provider: Referral Self. [facility], [address] [address], [place], [address], [place] tel:[phone] [facility] Chronic diarrhea 3 Mariano Engel [address] [facility], [facility] [address], [place], [address], [place]. tel:[phone] Kenny Limon MD. tel:[phone] [facility], [address] [address], [place], [address], [place] tel:[phone] [facility] GI Symptoms or Concerns (chief complaint) Chronic diarrheaColor ectal polyp detected on colonoscopyTe rminal ileitis without complicationD iarrhea, unspecifiedBe nign neoplasm of cecumNoninfec tive gastroenterit is and colitis, unspecifiedBe nign neoplasm of cecum 3 Mariano Engel [address] [facility], [facility] [address], [place], [address], [place]. tel:[phone] Kenny Limon MD. tel:[phone] Provider: Andrew PRADHAN, [address], [place], [address]. tel:[phone] [facility], [address] [address], [place], [address], [place] tel:[phone] [facility] No Information 3 Mariano Engel [address] [facility], [facility] [address], [place], [address], [place]. tel:[phone] [facility], [address] [address], [place], [address], [place] tel:[phone] [facility] Acute diarrhea May-0 3 Jude PRADHAN Ness. [address] [facility], [facility] [address], [place], [place], [address], [place]. tel:[phone] Referring Provider: Referral Self. Office Cons New/estab Mod [facility], [address] [address], [place], [place], [address], [place] tel:[phone] [facility] GI Symptoms or Concerns (chief complaint) Acute diarrhea 3 Jude PRADHAN Ness. [address] [facility], [address], [place], [place], [address], [place]. tel:[phone] Kenny Liomn MD. tel:[phone] Provider: Andrew PRADHAN, [address], [place], [address]. tel:[phone] Family History Family Member Type Diagnosis Age At Onset Brother Problem (finding) Cancer, esophageal Mother Problem coronary artery disease Brother Problem (finding) Alcoholism Mother Problem (finding) Hemochromatosis Brother Problem Cancer, lung Sister Problem (finding) Cancer, breast Brother Problem (finding) Asthma Sister Problem (finding) Cancer, brain Mother Problem (finding) Asthma Father Problem (finding) Cancer, lung Father Problem (finding) Alcoholism Sister Problem Cancer, breast Immunizations Vaccine Date Status Comments SARS-COV-2 (COVID-19) vaccin e, mRNA, spike protein, LNP, preservative free, 30 mcg/0.3mL dose administered Note: [facility] bi-direct ional interface ; Source: Other Registry SARS-COV-2 (COVID-19) vaccin e, mRNA, spike protein, LNP, preservative free, 30 mcg/0.3mL dose administered Note: [facility] bi-direct ional interface ; Source: Other Registry Afluria Qd administered Note: [facility] bi-directional interface ; Source: Other Registry Influenza, injectable, [place] Canine Kidney, preservative free, quadrivalent administered Note: [facility] bi- directional interface ; Source: Other Registry Afluria Qd administered Note: [facility] bi-directional interface ; Source: Other Registry influenza, high dose seasona l, preservative-free administered Note: [facility] bi-direct ional interface ; Source: Other Registry Influenza, seasonal, injecta ble, preservative free administered Note: [facility] bi-direct ional interface ; Source: Other Registry tetanus toxoid, reduced diphtheria toxoid, and acellular pertussis vaccine, adsorbed administered Note: [facility] b i-directional interface ; Source: Other Registry Influenza, seasonal, injecta ble, preservative free administered Note: [facility] bi-direct ional interface ; Source: Other Registry Influenza, seasonal, injectable administe red Note: [facility] bi- directional interface ; Source: Other Registry Payers Payer name Insurance type Covered libertarian ID Authoriza timalcolm(s) [facility] [id number] [facility] CI Remicade Social History Type Description Quantity Date Captured Comments Alcohol Use Details Unknown Caffeine Use Details Unknown Tobacco Use Status No Information Smoking Status No Information Sex Female Chief Complaint And Reason For Visit No Information Reason For Referral Reason For Referral No Information Plan Of Treatment Date Type Action Status Goal Lifestyle education regardin g diet completed Referral Ordered: follow-up visit with Pete Dennis MD 6 Months Appointment date/timeframe: 6 Months ordered Referral Ordered: Administer Vitamin B-12 1,000mcg/mL every month, by intramuscular route Appointment date/timeframe: 03/20/2023 ordered Referral Ordered: follow-up visit with IBD MD in [facility] 3 Months Appointment date/timeframe: 3 Months ordered Referral Ordered: referred to Madison Iverson MD Ileitis and severe RLQ pain First Available Appointment date/timeframe: 04/03/2023 ordered Referral Ordered: follow-up visit with Ness PRADHAN 6 Weeks Appointment date/timeframe: 6 Weeks ordered Referral Ordered: follow-up visit for [facility] First Available Appointment date/timeframe: 02/10/2023 ordered Referral Ordered: Colonoscopy Appointment date/timeframe: 01/28/2023 ordered Appointment Hortensia Buitrago BOOKED Appointment Hortensia Buitrago BOOKED History Of Present Illness Encounter Date Complaint History Of Prese nt Illness Additional Narrative Hortensia is a 63-year-old female with history of RCC s/p nephrectomy , CKD stage 3 presenting to clinic today for Crohn's disease follow up after recent hospitalization and surgery. 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 She was admitted to the hospital in February and was treated with IV steroids without improvement prompting Remicade to be given at that time. On review of records this was given February 23. She had second induction dose on March 04 through our office. Unfortunately, she continued to have ongoing pain and developed bloody diarrhea prompting her to be rehospitalized in March. CT scan at that time showed no significant change in 3 segments of TI with wall thickening and mucosal hyperenhancement with associated luminal narrowing, no abscess or fistula. This led to laparoscopic ileocecal resection with Dr. Iverson (colorectal surgery) on March 21. Pathology showed active, chronic ileitis with colon margin with tubular adenoma. No evidence of malignancy. It appears Dr. Dennis has requested review of the pathology through our office. There has been some question on NSAID induced ileitis as she has a history of Aleve use for at least the last 2 years (4 tablets a day) for headaches. She has stopped all NSAID use since the spring. Through the course of her illness she has had significant weight loss, ~30lbs. Today, she notes having increased pain after discharge from the hospital and was rehospitalized on March 31. I was able to view a portion of her records. A CT scan at that time showed wall thickening at the anastomosis and distended small bowel loop proximal to the anastomosis consistent with possible postoperative ileus, along with very small extraluminal air likely normal postoperative findings. She was treated with antibiotics and notes today that she has one more day left. C diff PCR and enteric stool panel were negative during that admission as well. She continues to have right sided abdominal pain but states it is more of a p ulling sensation. She is having 5-10 mainly liquid stools without bloody. She has lost 3 lbs since her surgery in March. Denies fevers, chills, nausea, vomiting. She has a CT scan set up with Dr. Iverson on 04/14 and a postop visit on 04/21. She has Remicade infusion arranged for 04/24 through our office. Labs from presentation to the hospital according to our consultation note showed a normal CBC, elevated creatinine 1.14, otherwise normal CMP. She had an IBD profile lab testing including ACCA, ALCA, AMCA, pANCA, Minnie levels that were not consistent with IBD in February. EGD 12/13/2022, endoscopically normal. Gastric biopsies, chronic gastritis, but negative H. pylori. Esophageal and duodenal biopsies were normal.CT abdomen and pelvis 12/10/2022 revealing thickened distal ileum with mucosal hyperemia. Prior cholecystectomy with borderline dilated CBD.CT abdomen and pelvis 01/20/2023. Stable hyperemia of distal small bowel loops suggestive of chronic inflammation and colon filled with fluid, enlarged mesenteric lymph nodes, stable.Colonoscopy 01/28/2023: Narrowing, ulcerations, scarring in the terminal ileum. Biopsies revealed nonspecific mildly active chronic ileitis without specific features. Random right and left colon biopsies were normal. She had a 4 mm cecal with SSA.Stool studies including C. diff were negative in the past.Health Maintenance:Hepatitis B surface Ag negative, not immune (02/2023). Quantiferon - negative 02/2023. TPMT - pending today. Vitamin D - not taking. Vitamin B12 - low 218. On vitamin B12 injections. Flu vaccine - 2019. COVID 19 vaccine - initial series 2020, ?boosters. Zoster vaccine - undocumented. Hepatitis B vaccine - will discuss at a later visit. Pneumococcal vaccines - undocumented. Derm eval - will discuss if Remicade is continued for skin cancer screening annually. GI Symptoms or Concerns GI Symptoms or Concerns Hortensia is a 62-year-old recently diagnosed with stricturing ileal Crohn's and started on Remicade during recent hospitalization. She is scheduled for her 2nd induction infusion at [facility] tomorrow. Additionally, she is on a prednisone taper, currently 30 mg along with Zofran, nortriptyline, Pepcid, Nexium, and Senokot.She is very frustrated with her current symptoms and does not feel like she is improving. During my exam a mild palpation of the right lower quadrant caused her to have severe pain and tears. Although she has persistent severe pain she reports that it is much better than prior to the hospitalization. Currently, she reports her pain is a 3/10, whereas prior to hospitalization, it was 10/10 and disabling. Prior to hospitalization, she was stooling 10-15 times a day and now she is describing stooling about 5 times a day. Although stooling 5 times a day, she reports that occasionally she feels constipated and cannot go. She still has the pain in her right lower quadrant. The only thing she is taking for the pain is Tylenol. She no longer uses Aleve.On November 2022, she developed acute onset of pain across her lower abdomen, nausea, vomiting, and diarrhea. She was having up to 15 liquid nonbloody stools. She reports a 30 pounds weight loss. She was prescribed Nexium and famotidine without relief. It was discovered that she was using Aleve 2 tablets twice a day (4 tablets daily) every day for at least 2 years because of headaches.EGD 12/13/2022, endoscopically normal. Gastric biopsies, chronic gastritis, but negative H. pylori. Esophageal and duodenal biopsies were normal.CT abdomen and pelvis 12/10/2022 revealing thickened distal ileum with mucosal hyperemia. Prior cholecystectomy with borderline dilated CBD.CT abdomen and pelvis 01/20/2023. Stable hyperemia of distal small bowel loops suggestive of chronic inflammation and colon filled with fluid, enlarged mesenteric lymph nodes, stable.Colonoscopy 01/28/2023: Narrowing, ulcerations, scarring in the terminal ileum. Biopsies revealed nonspecific mildly active chronic ileitis without specific features. Random right and left colon biopsies were normal. She had a 4 mm cecal with SSA.Stool studies including C. diff were negative.Because of severe abdominal pain and poor response to high-dose oral prednisone, she was admitted to the hospital. She was seen by Colorectal surgeon, Dr. Madison Iverson. She was given IV Solu-Medrol and 1 dose of IV Remicade. Additional Narrative GI Symptoms or Concerns This is a pleasant 62-year-old female presenting to clinic today accompanied by her for follow-up after recent colonoscopy performed for symptoms of nonbloody diarrhea and abdominal pain, weight loss. Patient developed acute onset of epigastric pain with associated nausea, vomiting, diarrhea on November 28. Unfortunately, she has not had any improvement of her symptoms since the onset other than vomiting. She mainly just has nausea at this point. Her abdominal pain initially was more epigastric but now also includes her lower abdomen. She has been experiencing frequent nonbloody diarrhea, approximately 14-15 liquid stools a day. She reports losing approximately 30 pounds since November. She reports eating or drinking tend to worsen her symptoms. She has been supplementing with Pedialyte to stay hydrated. No associated fevers or chills. No hematemesis. She has tried Imodium without relief. She is also been placed on Nexium and her dose was increased to 20 milligrams twice a day after her last visit in December along with the addition of famotidine 40mg at bedtime. She tends to forget the 2nd dose of Nexium. Overall, these medications have not been helpful. I note that she is down 3 pounds since her last visit a little over a month ago. She has a history of chronic NSAID use with Aleve for years on a regular basis. She stopped this after her last visit approximately 5 weeks ago. Denies any other NSAIDs. She recently had a colonoscopy on January 28 and was placed on 40mg of prednisone after biopsy showed chronic ileitis. She has been on this for over a week, reportedly taking 30mg presently. She has had no change in her symptoms even on 40mg of prednisone. Patient has had extensive workup for her symptoms. Labs on December 10 showed mild anemia with a hemoglobin of 11.6, otherwise unremarkable CBC. BMP, hepatic function panel, normal. Urinalysis with few bacteria, otherwise unremarkable. COVID and influenza testing negative. Infections stool studies for Giardia, Cryptosporidium, Cyclospora, routine enteric culture negative in December. Recent infectious stool studies with a comprehensive stool panel were negative on January 06 through our office (C diff included). Repeat labs on January 07 showed a normal ESR, CRP, CBC, CMP, and TSH. On December 10 - CT abdomen and pelvis with contrast that showed wall thickening in the distal and terminal ileum with some mucosal hyperemia, evidence of prior cholecystectomy with minimal dilation of the intrahepatic biliary tree and borderline diameter of the common bile duct. On January [address] abdomen/pelvis with IV contrast showed stable hyperemia of the distal small bowel loops suggestive of chronic inflammation, fluid-filled colon suggestive of diarrheal illness, persistent enlarged mesenteric lymph nodes (stable prior scan), measuring up to 2.1 centimeters, prior cholecystectomy with improved appearance of the biliary tree without common bile duct stone. On December 13 she had an upper endoscopy through [facility] that was endoscopically normal. mid and distal esophageal biopsies and duodenal biopsies were normal. Gastric biopsy showed chronic, active gastritis, negative for H pylori. On January 28 colonoscopy showed inflammation with ulceration and stenosis at the terminal ileum, internal hemorrhoids, sessile serrated adenoma at the cecum. Right and left colon biopsies were normal. Terminal ileum biopsy showed nonspecific mild active chronic ileitis. GI Symptoms or Concerns GI Symptoms or Concerns Hortensia Buitrago is a 62-year-old female seen today at the request of Andrew Israel PA-C for concerns of diarrhea and reflux.Past medical history is significant for hypertension, GERD, hyperlipidemia and osteoarthritis. I received 36 pages of outside records from [facility] which I reviewed in preparation for this visit. These included several outpatient visits with Andrew Israel as well as an ER visit to [facility] on 12/10/22. Labs 12/10 revaled mild anemia with Hgb 11.6- CBC otherwise unremarkable. BMP, hepatic function panel wnl. UA with few bacteria but otherwise unremarkable. . COVID and Influenza testing negative. CT Abdomen pelvis with contrast revealed wall thickening in the distal and terminal ileum with some mucosal hyperemia. She was noted to be s/p cholecystectomy with minimal dilatation of the intrahepatic biliary tree and borderline diameter of the CBD. EGD was subsequently completed at [facility] on 12/13/22 which revealed chronic active gastritis but was otherwise unremarkable including biopsies of the mid/ distal esophagus and duodenum. Stool studies were also ordered which patient reports she dropped off at her clinic yesterday. This included a GI parasite panel, rotavirus antigen, stool culture, ova and parasites, C diff, H pylori antigen and norovirus PCR. patient reports that she went on vacation to [place] on November 28 developed a stabbing epigastric pain while eating pretzels on the plane and has had nausea, vomiting, diarrhea and abdominal pain since that time. Although, she does report that the vomiting has now subsided. She denies any sick contacts or suspicious foods while she was on vacation and her has not gotten sick. She was recently treated for UTI however, this was after her symptoms began. She has not had any melena or hematochezia. She has had some chills but no fevers.. Prior to her upper endoscopy she had been taking for Aleve daily for years for headaches. Since the onset of symptoms she has lost about 30 pounds as she is unable to eat. Eating and drinking makes her abdominal pain worse. She does note that magic mouthwash did help somewhat and she was able to eat with this. She has been trying to drink Pedialyte as well to stay hydrated.She notes that since onset of symptoms pain has moved from the upper abdomen to the lower abdomen. She continues with significant diarrhea 5 bowel movements so far today and on average has been having around 12 bowel movements daily. Stool starts out more formed in the morning and become complete liquid later on. She has not been trying any medications to manage her diarrhea. she does note a significant history of reflux since she was in her 20s. She was previously on omeprazole daily was recently changed to Nexium from omeprazole and has also been taking famotidine at night which she reports has been managing her reflux symptoms well. She does note a prior colonoscopy with [facility] about 12 years ago. She notes she was advised at that time to repeat colonoscopy in 10 years. SURGICAL HISTORY Hysterectomy, appendectomy, unilateral nephrectomy for renal cell cancer, cholecystectomyFAMILY HISTORY No history of colon cancerNephew and 3 nieces with Crohn'sNiece has Celiac? Grandmother with IBD? SOCIAL HISTORY Endorses very little alcohol intake ~ 10 alcohlic drinks yearly No history of tobacco use Functional Status Date Functional Assessmen t No Information Instructions Date Instruction Additional Infor shayna Question NSAID or Cr ohns. [facility] 03/21/2023 RS [id number] Related to Terminal ileitis without complication Pathology review Related to Term inal ileitis without complication B12 1000 mcg IM week ly x 4 then monthly indefinitely Related to B12 deficiency - Labs tomorrow incl uding IBD profile- Continue Remicade induction- Follow up with colorectal surgeon Dr. Madison Iverson - Follow up IBD clinic in [facility]- Colonoscopy in ~ 5 months- Taper prednisone as previously directed- Address health maintenance in follow up when off prednisone- Avoid all NSAIDS including Aleve Related to Terminal ileitis without complication IBD Folder Related to Termi nal ileitis without complication IBD Health Maintenance Related t o Terminal ileitis without complication Lifestyle education regarding di et Related to Dietary counseling and surveillance Infliximab IV per standard je[facility] col. Related to Crohn's disease of small intestine without complications I recommended going to the hospital for admission for IV steroids given her non-response to prednisone and degree of pain/diarrhea, weight loss. She may require colorectal surgery consult and potentially initiation of infliximab in the hospital. I contacted the Allan JANSEN MD working today to provide update on patient pending presentation. I also updated Dr. Vernon who is covering [facility] this week. Related to Terminal ileitis without complication Colon Cancer Prevention Related to Colorectal polyp detected on colonoscopy Colon Polyps Related to Color ectal polyp detected on colonoscopy Hemorrhoids Related to Color ectal polyp detected on colonoscopy High Fiber Diet Related to Color ectal polyp detected on colonoscopy Assessments Type Assessment Date assessment Crohn's disease of small intesti ne without complications Patient Care Teams Name Effective Dates (start - stop) Status Members No Information
[2023-07-19 00:34] LABS: Basophils Absolute Auto 0.03 K/uL (0.00-0.30); Basophils Percent Auto 0.6 % (0.0-3.0); Eosinophils Absolute Auto 0.12 K/uL (0.00-0.50); Eosinophils Percent Auto 2.3 % (0.0-7.0); Hemoglobin* 13.6 gm/dL (12.0-16.0); Immature Granulocytes Abs Auto 0.04 K/uL (0.00-0.30); Immature Granulocytes Pct Auto 0.8 %; Lymphocytes Absolute Auto 2.21 K/uL (0.90-2.90); Lymphocytes Percent Auto 42.7 % (20-44); Mean Corpuscular HGB Conc 32 gm/dL (32-36); Mean Corpuscular Hemoglobin 27 pg (26-34); Mean Corpuscular Volume 84 fL (80-100); Monocytes Percent Auto 8.5 % (0.0-11.0); Neutrophils Absolute Auto 2.33 K/uL (1.7-7.0); Neutrophils Percent Auto 45.1 % (42.0-72.0); Platelet Count* 244 K/uL (140-440); White Blood Count* 5.17 K/uL (4.50-11.00)
[2023-07-19 00:44] LABS: Slide Review Reflex No
[2023-07-19 02:32] LABS: Iron* 103 ug/dL (37-170)
[2023-07-19 02:42] LABS: Percent Iron Saturation 34 % (20-50); Total Iron Binding Capacity 300 ug/dL (265-497)
[2023-07-19 03:09] LABS: Ferritin* 34.4 ng/mL (11.1-264.0)
[2023-07-19 03:22] LABS: Vitamin B12* 734 pg/mL (243-894)
== END 2023-07-18 22:29 | disposition home or self-care (01) ==
LOC: NPINS 22:28
PROVIDERS: PCP Physician Assistant Medical; Visit Provider Internal Medicine Gastroenterology
DX: K50.00 Crohn's disease of small intestine without complications (principal)
CPT/HCPCS: 82607; 82728; 83540; 83550; 85025

== ENCOUNTER 2023-08-12 13:57 | Outpatient (REF) | payer BC, SELFPAY ==
[2023-08-15 07:12] LABS: Calprotectin, Fecal 57 ug/g (<=49)
[2023-08-16 01:36] LABS: Cryptosporidium by PCR Not Detected; Cyclospora cayetanensis by PCR Not Detected; Dientamoeba fragilis by PCR Not Detected; Entamoeba histolytica by PCR Not Detected; Giardia by PCR Not Detected
== END 2023-08-12 13:58 | disposition home or self-care (01) ==
LOC: NPINS 13:57
PROVIDERS: PCP Physician Assistant Medical
DX: K50.00 Crohn's disease of small intestine without complications (principal)
CPT/HCPCS: 83993; 87505

== ENCOUNTER 2023-09-17 14:30 | Outpatient (REF) | payer BC, SELFPAY ==
--- OUTSIDE RECORDS SUMMARY | 2023-09-17 14:34 | XMS_ITS | Encounter Summary ---
Author Name Unknown Organization [facility] Address [address] [place] [id number] Care Team Providers Care Sheet Metal Technician Name Role Phone Andrew Israel PA-C Primary Care Provider [phone] Encounter Details Date Type Department Care Team (Latest Contact Info) Description 08/07/2023 Travel Social History Tobacco Use Types Packs/Day Years Used Date Smoking Tobacco: Never Assessed Adolescent Education Answer Date Record ed Getting School Help Needed Not on file 06/17 Sex and Gender Information Value Date Recorded Sex Assigned at Not on file Gender Identity Not on file Sexual Orientation Not on file documented as of this encounter Plan of Treatment Upcoming Encounters Date Type Department Care Team (Late st Contact Info) Description 10/01/2023 12:45 PM ELECTRONICS INSTRUCTOR Appointment [facility] [id number] [place] [id number] EdstromAlisa PA-C [facility] [address] [place] [address] [place] JOSHI [id number] documented as of this encounter Visit Diagnoses Not on filedocumented in this encounter Care Teams Sheet Metal Technician Relationship Specialty Start Date End Date Andrew Israel PA-C [place] [id number] [facility] [place] [id number] PCP - General 05/15/23 documented as of this encounter
--- OUTSIDE RECORDS SUMMARY | 2023-09-17 14:34 | XMS_ITS | Referral Summary ---
Author Name Unknown Organization [facility] Address [address] [place] [id number] Care Team Providers Care Track Service Worker Name Role Phone Andrew Israel PA-C Primary Care Provider [phone] Encounters Date Type Department Care Team Description 08/07/2023 Travel 08/07/2023 4:15 PM LOGISTICS SUPERVISOR - 08/07/2023 8:41 PM LOGISTICS SUPERVISOR Emergency [facility] Emergency Dept [address] [place] [address] Car Paris MD Crohn's disease of colon without complication (H) Discharge Disposition: Home or Self Care 06/16/2023 5:22 PM CDT - 06/22/2023 6:15 PM CDT Hospital Encounter [facility] [address] [place] [address] Ruma Ponce MD McDonald, Lindsey E, DO Rigstad, Beau, MD Farnan, Christopher M, MD Abdominal pain, unspecified abdominal location (Primary Dx); Acute colitis; Crohn's disease with complication, unspecified gastrointestinal tract location (H); Pyuria Discharge Disposition: Home or Self Care 06/20/2023 8:50 AM CDT - 06/20/2023 9:[address] [facility] [place] [address] [place] [address] Ananda Vernon MD Colonoscopy with biopsies from Last 3 Months Allergies Active Allergy Reactions Criticality Noted Date Comments Aspirin Nausea and Vomiting Medium 02/11/2023 Codeine Nausea and Vomiting 02/11/2023 Meperidine Nausea and Vomiting Medium 02/10/2023 N/V Latex Hives High 02/11/2023 Mold 02/11/2023 Oxycodone Anaphylaxis,Hives,Sw el ling High 02/10/2023 Throat swelling, per pt Pt tolerates [place]/Vicodin (06/22/2023) Penicillin G Anaphylaxis High 02/11/2023 Oxycodone-Acetaminoph en Nausea and Vomiting Medium 02/10/2023 N/V Sumatriptan Palpitations High 02/11/2023 Medications Medication Sig Dispensed Refills Start Date End Date Status acetaminophen (TYLENOL) 650 MG CR tablet Take 650 mg by mouth At Bedtime 0 Active montelukast (SINGULAIR) 10 MG tablet Take 10 mg by mouth At Bedtime 0 Active traZODone (DESYREL) 100 MG tablet Take 200 mg by mouth At Bedtime 0 Active esomeprazole (NEXIUM) [address] capsule Take 40 mg by mouth 2 times daily (before meals) Take 30-60 minutes before eating. 0 Active nortriptyline (PAMELOR) 25 MG capsule Take 25 mg by mouth At Bedtime 0 Active famotidine (PEPCID) 40 MG tablet Take 40 mg by mouth At Bedtime 0 Active albuterol (PROAIR HFA/PROVENTIL HFA/VENTOLIN HFA) 108 (90 Base) MCG/ACT inhaler Inhale 2 puffs into the lungs every 6 hours as needed for shortness of breath, wheezing or cough 0 Active bisacodyl (DULCOLAX) 10 MG suppositoryIndication s:RLQ abdominal pain,Partial small bowel obstruction (H) Place 1 suppository (10 mg) rectally 2 times daily as needed for constipation 10 suppository 1 3 Active ondansetron (ZOFRAN ODT) 4 MG ODT tabIndications:IBD (inflammatory bowel disease),Nausea Take 1 tablet (4 mg) by mouth every 8 hours as needed for nausea 15 tablet 2 3 Active methocarbamol (ROBAXIN) 500 MG tabletIndications:RLQ abdominal pain,Partial small bowel obstruction (H),IBD (inflammatory bowel disease),Nausea Take 1 tablet (500 mg) by mouth 4 times daily as needed for muscle spasms 15 tablet 1 3 Active cyanocobalamin (CYANOCOBALAMIN) 1000 MCG/ML injection Inject 1,000 mcg as directed every 30 days 0 Active acetaminophen (TYLENOL) 500 MG tabletIndications:RLQ abdominal pain Take 1-2 tablets (500-1,000 mg) by mouth every 6 hours as needed for mild pain 0 3 Active diphenhydrAMINE (BENADRYL) 25 MG capsule Take 1 capsule (25 mg) by mouth every 6 hours as needed for itching or allergies 30 capsule 0 3 Active HYDROcodone-acetamino phen (NORCO) 5-325 MG tabletIndications:Acu te colitis,Crohn's disease with complication, unspecified gastrointestinal tract location (H),Abdominal pain, unspecified abdominal location Take 1-2 tablets by mouth every 6 hours as needed for severe pain (max acetaminophen (4 gram a day including tylenol)) 20 tablet 0 3 Active hydrOXYzine (ATARAX) 25 MG tabletIndications:Acu te colitis,Crohn's disease with complication, unspecified gastrointestinal tract location (H),Abdominal pain, unspecified abdominal location Take 1 tablet (25 mg) by mouth every 6 hours as needed for other (adjuvant pain) 20 tablet 0 3 Active Active Problems Problem Noted Date Diagnosed Date Acute colitis 06/16/2023 Dizziness 03/31/2023 Abnormal stools 03/31/2023 History of colon surgery 03/31/2023 Abdominal pain, unspecified abdominal location 0 03/31/2023 Intractable abdominal pain 03/19/2023 Crohn's disease of colon with complication 03/19 RLQ abdominal pain 02/10/2023 Immunizations Name Administration Dates Next Due COVID-19 MONOVALENT 12+ (Pfizer) 12/26/2020,11/08 Social History Tobacco Use Types Packs/Day Years Used Date Smoking Tobacco: Never Assessed Tobacco Cessation:Counseling Given: Not Answered Adolescent Education Answer Date Record ed Getting School Help Needed Not on file 06/17 Sex and Gender Information Value Date Recorded Sex Assigned at Not on file Gender Identity Not on file Sexual Orientation Not on file Last Filed Vital Signs Vital Sign Reading Time Taken Comments Blood Pressure 142/92 08/07/2023 7:17 PM LOGISTICS SUPERVISOR Pulse 92 08/07/2023 2:20 PM LOGISTICS SUPERVISOR Temperature 36.1 ??C (97 ??F) 08/07/2023 2:20 PM LOGISTICS SUPERVISOR Respiratory Rate 18 08/07/2023 2:20 PM LOGISTICS SUPERVISOR Oxygen Saturation 99% 08/07/2023 7:20 PM LOGISTICS SUPERVISOR Inhaled Oxygen Concentration - - Weight 69.3 kg (152 lb 12.5 oz) 06/19/2023 9:00 AM CDT Height 160 cm (5' 3) 03/31/2023 10:48 PM CDT Body Mass Index 27.06 03/31/2023 10:48 PM CDT Plan of Treatment Upcoming Encounters Date Type Department Care Team (Late st Contact Info) Description 10/01/2023 12:45 PM LOGISTICS SUPERVISOR Appointment [facility] Imaging [id number] [facility] [address] [place] [address] Edstrom, Alisa Andrews PA-C [facility] [address] [place] [address] [address] [place] [id number] Procedures Procedure Name Priority Date/Time Associated Diagnosis Comments CT ABDOMEN PELVIS W CONTRAST STAT 08/07/2023 6:19 PM LOGISTICS SUPERVISOR ROUTINE UA WITH MICROSCOPIC STAT 08/07/2023 5:26 PM LOGISTICS SUPERVISOR CBC WITH PLATELETS & DIFFERENTIAL STAT 08/07/2023 3:05 PM LOGISTICS SUPERVISOR CBC WITH PLATELETS AND DIFFERENTIAL STAT 08/07/2023 3:05 PM LOGISTICS SUPERVISOR COMPREHENSIVE METABOLIC PANEL STAT 08/07/2023 3:05 PM LOGISTICS SUPERVISOR SURGICAL PATHOLOGY EXAM Routine 06/20/2023 9:04 AM CDT COLONOSCOPY Routine 06/20/2023 8:38 AM CDT COLONOSCOPY, WITH POLYPECTOMY AND BIOPSY 06/20/2023 8:36 AM CDT Crohn disease (H) CBC WITH PLATELETS & DIFFERENTIAL Routine 06/20/2023 6:22 AM CDT CBC WITH PLATELETS AND DIFFERENTIAL Routine 06/20/2023 6:22 AM CDT BASIC METABOLIC PANEL Routine 06/20/2023 6:22 AM CDT CALPROTECTIN FECES STAT 06/17/2023 2: 20 PM CDT C. DIFFICILE TOXIN B PCR WITH REFLEX TO C. DIFFICILE ANTIGEN AND TOXINS A/B EIA STAT 06/17/2023 2:19 PM CDT ENTERIC BACTERIA AND VIRUS PANEL BY PCR STAT 06/17/2023 2:19 PM CDT CBC WITH PLATELETS STAT 06/17/2023 7: 18 AM CDT BASIC METABOLIC PANEL STAT 06/17/2023 7:18 AM CDT from Last 3 Months Results * Abd/pelvis CT, IV contrast only TRAUMA / AAA (08/07/2023 6:19 PM LOGISTICS SUPERVISOR) Anatomical Region Laterality Modality Abdomen/Pelvis, SUBRAD CT TIFFANIE DY, UMP CT ABDOMEN PELVIS, RAD CT Computed Tomography 08/07/2023 6:19 PM LOGISTICS SUPERVISOR Impressions 08/07/2023 6:53 PM LOGISTICS SUPERVISOR IMPRESSION: 1. ??Mild acute colitis of the rectum and residual colon, improved from prior. 2. ??Ileocolic resection. 3. ??Right nephrectomy. 4. ??Hysterectomy. 5. ??Cholecystectomy. Narrative 08/07/2023 6:53 PM LOGISTICS SUPERVISOR EXAM: CT ABDOMEN PELVIS W CONTRAST LOCATION: [facility] DATE: 08/07/2023 INDICATION: Right lower quadrant pain; Crohn's disease with recent ileocolic anastomosis. COMPARISON: 06/16/2023. TECHNIQUE: CT scan of the abdomen and pelvis was performed following injection of IV contrast. Multiplanar reformats were obtained. Dose reduction techniques were used. CONTRAST: 78 mL Isovue 370. FINDINGS: LOWER CHEST: Atherosclerosis of coronary arteries. HEPATOBILIARY: Liver enhances normally and is normal in size. Gallbladder is normal. No intrahepatic or intrahepatic biliary ductal dilatation. PANCREAS: Enhances normally. No peripancreatic inflammatory fat stranding. SPLEEN: Enhances normally. Normal size. Likely benign, small hypodense lesion of the spleen; no further follow-up recommended. ADRENAL GLANDS: Normal. KIDNEYS: Right nephrectomy. Left kidney enhances normally, without hydronephrosis. No nephroureterolithiasis. Urinary bladder is unremarkable. PELVIC ORGANS: Hysterectomy. BOWEL: Previous ileocolic resection. Mild diffuse wall thickening of the residual colon and rectum, improved from previous examination. Liquefied stool throughout the residual colon and rectum. No evidence of acute gastrointestinal obstruction. No intraperitoneal free fluid or free air. LYMPH NODES: No suspicious abdominal or pelvic lymphadenopathy. VASCULATURE: No abdominal aortic aneurysm. Qyhf-pa-jawqtthm atheromatous disease. MUSCULOSKELETAL: No suspicious abnormality. OTHER: No additionally significant abnormalities. Procedure Note Stan Meehan MD - 08/07/2023 EXAM: CT ABDOMEN PELVIS W CONTRAST LOCATION: [facility] DATE: 08/07/2023 INDICATION: Right lower quadrant pain; Crohn's disease with recentileocolic anastomosis. COMPARISON: 06/16/2023. TECHNIQUE: CT scan of the abdomen and pelvis was performed followinginjection of IV contrast. Multiplanar reformats were obtained. Dosereduction techniques were used. CONTRAST: 78 mL Isovue 370. FINDINGS: LOWER CHEST: Atherosclerosis of coronary arteries. HEPATOBILIARY: Liver enhances normally and is normal in size. Gallbladder is normal. No intrahepatic or intrahepatic biliary ductal dilatation. PANCREAS: Enhances normally. No peripancreatic inflammatory fatstranding. SPLEEN: Enhances normally. Normal size. Likely benign, small hypodenselesion of the spleen; no further follow-up recommended. ADRENAL GLANDS: Normal. KIDNEYS: Right nephrectomy. Left kidney enhances normally, withouthydronephrosis. No nephroureterolithiasis. Urinary bladder is unremarkable. PELVIC ORGANS: Hysterectomy. BOWEL: Previous ileocolic resection. Mild diffuse wall thickening of theresidual colon and rectum, improved from previous examination. Liquefiedstool throughout the residual colon and rectum. No evidence of acutegastrointestinal obstruction. No intraperitoneal free fluid or free air. LYMPH NODES: No suspicious abdominal or pelvic lymphadenopathy. VASCULATURE: No abdominal aortic aneurysm. Qwoq-io-ofbkmeam atheromatousdisease. MUSCULOSKELETAL: No suspicious abnormality. OTHER: No additionally significant abnormalities. IMPRESSION: 1. Mild acute colitis of the rectum and residual colon, improved fromprior. 2. Ileocolic resection. 3. Right nephrectomy. 4. Hysterectomy. 5. Cholecystectomy. Car Paris MD G CT ORDERABLES * (ABNORMAL) UA with Microscopic (08/07/2023 5:26 PM LOGISTICS SUPERVISOR) Color Urine Light Yellow Colorless, Straw, Light Yellow, Yellow 08/07/2023 5:42 PM LOGISTICS SUPERVISOR [facility] Appearance Urine Clear Clear 08/07/20 5:42 PM LOGISTICS SUPERVISOR [facility] Glucose Urine Negative Negative mg/dL 08/07/2023 5:42 PM LOGISTICS SUPERVISOR [facility] Bilirubin Urine Negative Negative 5:42 PM LOGISTICS SUPERVISOR [facility] Ketones Urine Negative Negative mg/dL 08/07/2023 5:42 PM LOGISTICS SUPERVISOR [facility] Specific [place] Urine 1.006 1.003 - 1.035 08/07/2023 5:42 PM LOGISTICS SUPERVISOR [facility] Blood Urine Negative Negative 08/07/2023 5:42 PM LOGISTICS SUPERVISOR [facility] pH Urine 5.0 5.0 - 7.0 08/07/2023 5:42 PM LOGISTICS SUPERVISOR [facility] Protein Albumin Urine Negative Negative mg/dL 08/07/2023 5:42 PM LOGISTICS SUPERVISOR [facility] Urobilinogen Urine Normal Normal, 2.0 mg/dL 08/07/2023 5:42 PM LOGISTICS SUPERVISOR [facility] Nitrite Urine Negative Negative 08/07/2023 5:42 PM LOGISTICS SUPERVISOR [facility] Leukocyte Esterase Urine Negative Negative 08/07/2023 5:42 PM LOGISTICS SUPERVISOR [facility] Mucus Urine Present(A) None Seen /LPF 08/07/2023 5:42 PM LOGISTICS SUPERVISOR [facility] RBC Urine <1 <=2 /HPF 08/07/2023 5:42 PM LOGISTICS SUPERVISOR [facility] WBC Urine <1 <=5 /HPF 08/07/2023 5:42 PM LOGISTICS SUPERVISOR [facility] Urine MID-STREAM URINE SPECIMEN / Unknown Non-blood Collection / Unknown 08/07/2023 5:26 PM LOGISTICS SUPERVISOR 08/07/2023 5:30 PM LOGISTICS SUPERVISOR Car Paris MD LAB - URINE ORDER [facility] Lab [address] Lab (1st floor, no room number) [place] [address], [facility] [phone] * CBC with platelets and differential (08/07/2023 3:05 PM LOGISTICS SUPERVISOR) Only the most recent of2 resultswithin the time period is included. WBC Count 4.5 4.0 - 11.0 10e3/uL 08/07/2023 3:14 PM LOGISTICS SUPERVISOR [facility] RBC Count 4.78 3.80 - 5.20 10e6/uL 08/07/2023 3:14 PM LOGISTICS SUPERVISOR [facility] Hemoglobin 13.2 11.7 - 15.7 g/dL 08/07/2023 3:14 PM LOGISTICS SUPERVISOR [facility] Hematocrit 40.7 35.0 - 47.0 % 08/07/2023 3:14 PM LOGISTICS SUPERVISOR [facility] MCV 85 78 - 100 fL 08/07/2023 3:14 PM LOGISTICS SUPERVISOR [facility] MCH 27.6 26.5 - 33.0 pg 08/07/2023 3:14 PM LOGISTICS SUPERVISOR [facility] MCHC 32.4 31.5 - 36.5 g/dL 08/07/2023 3:14 PM LOGISTICS SUPERVISOR [facility] RDW 14.6 10.0 - 15.0 % 08/07/2023 3:14 PM LOGISTICS SUPERVISOR [facility] Platelet Count 215 150 - 450 10e3/uL 08/07/2023 3:14 PM LOGISTICS SUPERVISOR [facility] % Neutrophils 48 % 08/07/2023 3:14 PM LOGISTICS SUPERVISOR [facility] % Lymphocytes 35 % 08/07/2023 3:14 PM LOGISTICS SUPERVISOR [facility] % Monocytes 13 % 08/07/2023 3:14 PM LOGISTICS SUPERVISOR [facility] % Eosinophils 2 % 08/07/2023 3:14 PM LOGISTICS SUPERVISOR [facility] % Basophils 1 % 08/07/2023 3:14 PM LOGISTICS SUPERVISOR [facility] % Immature Granulocytes 1 % 08/07/2023 3:14 PM LOGISTICS SUPERVISOR [facility] NRBCs per 100 WBC 0 <1 /100 023 3:14 PM LOGISTICS SUPERVISOR [facility] Absolute Neutrophils 2.3 1.6 - 8.3 10e3/uL 08/07/2023 3:14 PM LOGISTICS SUPERVISOR [facility] Absolute Lymphocytes 1.6 0.8 - 5.3 10e3/uL 08/07/2023 3:14 PM LOGISTICS SUPERVISOR [facility] Absolute Monocytes 0.6 0.0 - 1.3 10e3/uL 08/07/2023 3:14 PM LOGISTICS SUPERVISOR [facility] Absolute Eosinophils 0.1 0.0 - 0.7 10e3/uL 08/07/2023 3:14 PM LOGISTICS SUPERVISOR [facility] Absolute Basophils 0.0 0.0 - 0.2 10e3/uL 08/07/2023 3:14 PM LOGISTICS SUPERVISOR [facility] Absolute Immature Granulocytes 0.0 <=0.4 10e3/uL 08/07/2023 3:14 PM LOGISTICS SUPERVISOR [facility] Absolute NRBCs 0.0 10e3/uL 08/07/2023 3:14 PM LOGISTICS SUPERVISOR [facility] Blood STRUCTURE OF LEFT UPPER LIMB / Unknown Venipuncture / Unknown 08/07/2023 3:05 PM LOGISTICS SUPERVISOR 08/07/2023 3:10 PM LOGISTICS SUPERVISOR Car Paris MD LAB - BLOOD ORDER [facility] Acute [facility] Lab [address] Lab (1st floor, no room number) [place] [address], [facility] [phone] * (ABNORMAL) Comprehensive metabolic panel (08/07/2023 3:05 PM LOGISTICS SUPERVISOR) [facility] Signature Sodium 139 135 - 145 mmol/L 08/07/2023 3:34 PM LOGISTICS SUPERVISOR LABORATORY Comment:Reference intervals for this test were updated on 06/03/2023 to more accurately reflect our healthy population. There may be differences in the flagging of prior results with similar values performed with this method. Interpretation of those prior results can be made in the context of the updated reference intervals. Potassium 4.3 3.4 - 5.3 mmol/L 08/07/2023 3:34 PM LOGISTICS SUPERVISOR LABORATORY Carbon Dioxide (CO2) 23 22 - 29 mmol/L 08/07/2023 3:34 PM LOGISTICS SUPERVISOR [facility] Anion Gap 11 7 - 15 mmol/L 08/07/2023 3:34 PM LOGISTICS SUPERVISOR LABORATORY Urea Nitrogen 6.8(L) 8.0 - 23.0 mg/dL 08/07/2023 3:34 PM LOGISTICS SUPERVISOR LABORATORY Creatinine 1.08(H) 0.51 - 0.95 mg/dL 08/07/2023 3:34 PM LOGISTICS SUPERVISOR [facility] GFR Estimate 57(L) >60 mL/min/1. 73m2 08/07/2023 3:34 PM LOGISTICS SUPERVISOR [facility] Calcium 8.9 8.8 - 10.2 mg/dL 08/07/2023 3:34 PM LOGISTICS SUPERVISOR [facility] Chloride 105 98 - 107 mmol/L 08/07/2023 3:34 PM LOGISTICS SUPERVISOR [facility] Glucose 116(H) 70 - 99 mg/dL 08/07/2023 3:34 PM LOGISTICS SUPERVISOR [facility] Alkaline Phosphatase 95 40 - 150 U/L 08/07/2023 3:34 PM LOGISTICS SUPERVISOR [facility] Comment:Reference intervals for this test were updated on 07/22/2023 to more accurately reflect our healthy population. There may be differences in the flagging of prior results with similar values performed with this method. Interpretation of those prior results can be made in the context of the updated reference intervals. AST 28 0 - 45 U/L 08/07/2023 3:34 PM LOGISTICS SUPERVISOR [facility] Comment:Reference intervals for this test were updated on 02/17/2023 to more accurately reflect our healthy population. There may be differences in the flagging of prior results with similar values performed with this method. Interpretation of those prior results can be made in the context of the updated reference intervals. ALT 28 0 - 50 U/L 08/07/2023 3:34 PM LOGISTICS SUPERVISOR [facility] Comment:Reference intervals for this test were updated on 02/17/2023 to more accurately reflect our healthy population. There may be differences in the flagging of prior results with similar values performed with this method. Interpretation of those prior results can be made in the context of the updated reference intervals. Protein Total 6.9 6.4 - 8.3 g/dL 08/07/2023 3:34 PM LOGISTICS SUPERVISOR [facility] Albumin 4.2 3.5 - 5.2 g/dL 08/07/2023 3:34 PM LOGISTICS SUPERVISOR [facility] Bilirubin Total 0.4 <=1.2 mg/dL 08/07/2023 3:34 PM LOGISTICS SUPERVISOR [facility] Blood STRUCTURE OF LEFT UPPER LIMB / Unknown Venipuncture / Unknown 08/07/2023 3:05 PM LOGISTICS SUPERVISOR 08/07/2023 3:10 PM LOGISTICS SUPERVISOR Car Paris MD LAB - BLOOD ORDER [facility] Lab [address] [facility] Lab (1st floor, no room number) [place] [address], [facility] [phone] * Surgical Pathology Exam (06/20/2023 9:04 AM CDT) Case Report Surgical Pathology Report ? Case: [id number] ? Authorizing Provider: ??Ananda Vernon MD ?Collected: ? 06/20/2023 09:04 AM ? Ordering Location: ? [facility] ?Received: ?06/20/2023 09:19 AM ? End[facility] [place] ? Pathologist: ? Cecile St MD PhD ? Specimen: ?Large Intestine, Colon, Random, Random Right Colon biopsies R/O CMV ? 06/23/2023 11:42 AM CDT LABORATORY Final Diagnosis A.Colon, right side, random locations , biopsies: - Colonic mucosa with no specific histopathologic abnormalities. - No features of an acute, chronic or microscopic colitis identified. - Negative for dysplasia or malignancy. 06/23/2023 11:42 AM CDT LABORATORY Clinical Information Procedure: Colonoscopy with biopsies Pre-op Diagnosis: Crohn disease (H) [K50.90] Post-op Diagnosis: K50.90 - Crohn disease (H) [ICD-10-CM] 06/23/2023 11:42 AM CDT LABORATORY Gross Description A(1). Large Intestine, Colon, Random, Random Right Colon biopsies R/O CMV: The specimen is received in formalin, labeled with the patient's name, medical record number and other identifying information and designated ? random right colon biopsies r/o CMV? . It consists of 6 claudio soft tissue fragments ranging from 0.2-0.5 cm. Entirely submitted in one cassette. ([facility]) 06/23/2023 11:42 AM CDT LABORATORY Microscopic Description Microscopic examination was performed. 06/23/2023 11:42 AM CDT LABORATORY Performing Labs The technical component of this testing was completed at [facility] Laboratory 06/23/2023 11:42 AM CDT LABORATORY Case Images 06/23/2023 11:42 AM CDT LABORATORY Biopsy COLON STRUCTURE / Unknown 06/20/2023 9:04 AM CDT 06/20/2023 9:19 AM CDT [facility] Lab [address] [facility] Lab (1st floor, no room number) [place] [address], [facility] [phone] * COLONOSCOPY (06/20/2023 8:38 AM CDT) COLONOSCOPY [facility] Patient Name: Hortensia Buitrago ?Procedure Date: 06/20/2023 8:38 AM ? Date of : 1960 ? Admit Type: Inpatient Age: 63 ? Gender: Female Attending MD: ANANDA VERNON MD, ?Total Sedation Time: _22_ minutes of continuous bedside 1:1 Instrument Name: 253 - Pediatric Colonoscope Procedure: ?Colonoscopy Indications: ?Crohn's disease of the colon Providers: ?ANANDA VERNON MD (Doctor) Referring MD: ? Medicines: ?Midazolam 4 mg IV, Fentanyl 150 micrograms IV, ?Ondansetron 4 mg IV Complications: ?No immediate complications. Procedure: ?Pre-Anesthesia Assessment: ?- Prior to the procedure, a History and Physical ?was performed, and patient medications and ?allergies were reviewed. The patient is competent. ?The risks and benefits of the procedure and the ?sedation options and risks were discussed with the ?patient. All questions were answered and informed ?consent was obtained. Patient identification and ?proposed procedure were verified by the physician ?in the procedure room. Mental Status Examination: ?alert and oriented. Airway Examination: normal ?oropharyngeal airway and neck mobility. Respiratory ?Examination: clear to auscultation. CV Examination: ?regular rate and rhythm. ASA Grade Assessment: II - ?A patient with mild systemic disease. After ?reviewing the risks and benefits, the patient was ?deemed in satisfactory condition to undergo the ?procedure. The anesthesia plan was to use moderate ?sedation / analgesia (conscious sedation). ?Immediately prior to administration of medications, ?the patient was re-assessed for adequacy to receive ?sedatives. The heart rate, respiratory rate, oxygen ?saturations, blood pressure, adequacy of pulmonary ?ventilation, and response to care were monitored ?throughout the procedure. The physical status of ?the patient was re-assessed after the procedure. ?After obtaining informed consent, the colonoscope ?was passed under direct vision. Throughout the ?procedure, the patient's blood pressure, pulse, and ?oxygen saturations were monitored continuously. The ?Olympus Pediatric Colonoscope Model #[id number]-II236B, ?[place] #253, SN #[id number] was introduced through the ?anus and advanced to the terminal ileum. The ?colonoscopy was performed without difficulty. The ?patient tolerated the procedure well. The quality ?of the bowel preparation was good. ? Findings: ? The perianal and digital rectal examinations were normal. ? The terminal ileum appeared normal. ? There was evidence of a prior end-to-side ileo-colonic anastomosis in ? the ascending colon. This was patent and was characterized by healthy ? appearing mucosa. The anastomosis was traversed. ? Normal mucosa was found in the entire colon. Biopsies were taken of the ? right colon with a cold forceps for histology. ? Internal hemorrhoids were found during retroflexion. ? Impression: ? - The examined portion of the ileum was normal. ?- Patent end-to-side ileo-colonic anastomosis, ?characterized by healthy appearing mucosa. ?- Normal mucosa in the entire examined colon. ?Biopsied. ?- Internal hemorrhoids. Recommendation: ? - Return patient to [facility] for [facility] care. ?- Advance diet as tolerated. ?- Hopefully she continues to improve. Will follow. ? Electonically signed by Ananda Vernon MD ANANDA VERNON MD 06/20/2023 9:29:14 AM I was physically present for the entire viewing portion of the exam. ANANDA VERNON MD Number of Addenda: 0 Note Initiated On: 06/20/2023 8:38 AM MRN: ?[id number] Procedure Date: ? 06/20/2023 8:38:02 AM Total Procedure Duration: 0 hours 17 minutes 16 seconds Estimated Blood Loss: ? Scope In: 8:54:15 AM Scope Out: 9:11:31 AM RADIOLOGY RESULTS 06/20/2023 8:38 AM CDT Ananda Vernon MD PROCEDURES RADIOLOGY RESULTS * (ABNORMAL) Basic metabolic panel (06/20/2023 6:22 AM CDT) Only the most recent of2 resultswithin the time period is included. Sodium 141 135 - 145 mmol/L 06/20/2023 6:52 AM CDT [facility] Comment:Reference intervals for this test were updated on 06/03/2023 to more accurately reflect our healthy population. There may be differences in the flagging of prior results with similar values performed with this method. Interpretation of those prior results can be made in the context of the updated reference intervals. Potassium 3.8 3.4 - 5.3 mmol/L 06/20/2023 6:52 AM CDT [facility] Chloride 104 98 - 107 mmol/L 06/20/2023 6:52 AM CDT [facility] Carbon Dioxide (CO2) 28 22 - 29 mmol/L 06/20/2023 6:52 AM CDT [facility] Anion Gap 9 7 - 15 mmol/L 06/20/2023 6:52 AM CDT [facility] Urea Nitrogen 9.2 8.0 - 23.0 mg/dL 06/20/2023 6:52 AM CDT [facility] Creatinine 1.00(H) 0.51 - 0.95 mg/dL 06/20/2023 6:52 AM CDT [facility] GFR Estimate 63 >60 mL/min/1. 73m2 06/20/2023 6:52 AM CDT [facility] Calcium 9.5 8.8 - 10.2 mg/dL 06/20/2023 6:52 AM CDT [facility] Glucose 110(H) 70 - 99 mg/dL 06/20/2023 6:52 AM CDT [facility] Blood STRUCTURE OF LEFT UPPER LIMB / Unknown Venipuncture / Unknown 06/20/2023 6:22 AM CDT 06/20/2023 6:28 AM CDT Valdez Gallardo MD LAB - BLOOD ORDER [facility] [address] ([facility]st [facility], no room number) [place] [address], [facility] [phone] * Calprotectin Feces (06/17/2023 2:20 PM CDT) Calprotectin Feces 30.1 0.0 - 49.9 mg/kg 06/18/2023 12:45 PM CDT [facility] Comment:Normal Stool RECTAL CONTENTS / Unknown Non-blood Collection / Unknown 06/17/2023 2:20 PM CDT 06/17/2023 2:25 PM CDT Aldo Flores MD LAB - STOOLS ORDERAB LES [facility]Endo [address] [facility] [address], [facility] [phone] * Enteric Bacteria and Virus Panel PCR (06/17/2023 2:19 PM CDT) Campylobacter species Negative Negative 06/17/2023 7:17 PM CDT [facility] Salmonella species Negative Negative 2022 7:17 PM CDT [facility] Vibrio species Negative Negative 06/17/2023 7:17 PM CDT [facility] Vibrio cholerae Negative Negative 7:17 PM CDT [facility] Yersinia enterocolitica Negative Negative 06/17/2023 7:17 PM CDT [facility] Enteropathogenic E. coli (EPEC) Negative Negative, NA 06/17/2023 7:17 PM CDT [facility] Shiga-like toxin-producing E. coli (STEC) Negative Negative 06/17/2023 7:17 PM CDT [facility] Shigella/Enteroinvas tammi E. coli (EIEC) Negative Negative 06/17/2023 7:17 PM CDT [facility] Cryptosporidium species Negative Negative 06/17/2023 7:17 PM CDT [facility] Giardia lamblia Negative Negative 7:17 PM CDT [facility] Norovirus Gl/Gll Negative Negative 06/17/20 7:17 PM CDT [facility] Rotavirus A Negative Negative 06/17/2023 7:17 PM CDT [facility] Plesiomonas shigelloides Negative Negative 06/17/2023 7:17 PM CDT [facility] Enteroaggregative E. coli (EAEC) Negative Negative 06/17/2023 7:17 PM CDT [facility] Enterotoxigenic E. coli (ETEC) Negative Negative 06/17/2023 7:17 PM CDT [facility] E. coli O157 NA Negative, NA 06/17/2023 7:17 PM CDT [facility] Cyclospora cayetanensis Negative Negative 06/17/2023 7:17 PM CDT [facility] Entamoeba histolytica Negative Negative 06/17/2023 7:17 PM CDT [facility] Adenovirus F40/41 Negative Negative 023 7:17 PM CDT [facility] Astrovirus Negative Negative 06/17/2023 7:17 PM CDT [facility] Sapovirus Negative Negative 06/17/2023 7:17 PM CDT [facility] Stool RECTAL CONTENTS / Unknown Non-blood Collection / Unknown 06/17/2023 2:19 PM CDT 06/17/2023 2:26 PM CDT Narrative [facility] - 06/17/2023 7:17 PM CDT Assay performed using the FDA-cleared FilmArray GI Panel from [facility] ??A negative result should not rule out infection in patients with a probability for gastrointestinal infection. The assay does not test for all potential infectious agents of diarrheal disease. ??Positive results do not distinguish between a viable or replicating organism and the presence of a nonviable organism or nucleic acid, nor do they exclude the possibility of coinfection by organisms not in the panel. ??Results are intended to aid in the diagnosis of illness and are meant to be used in conjunction with other clinical findings. This test has been verified and is performed by the Infectious [facility] Diagnostic Laboratory at [facility]. This laboratory is certified under the Clinical Laboratory Improvement Amendments of 1988 (CLIA-88) as qualified to perform high complexity clinical laboratory testing. Ruma Ponce MD LAB - MICRO GENERAL ORDERABLES [facility] Inf. Diseases Diag. Lab [address] [place] [address], [facility] [phone] * C. difficile Toxin B PCR with reflex to C. difficile Antigen and Toxins A/B EIA (06/17/2023 2:19 PMCDT) [facility] C Difficile Toxin B by PCR Negative Negative 06/17/2023 6:04 PM CDT [facility] Comment:A negative result do es not exclude actual disease due to C. difficile and may be due to improper collection, handling and storage of the specimen or the number of organisms in the specimen is below the detection limit of the assay. Stool RECTAL CONTENTS / Unknown Non-blood Collection / Unknown 06/17/2023 2:19 PM CDT 06/17/2023 2:26 PM CDT [facility] - 06/17/2023 6:04 PM CDT The Cepheid Xpert C. difficile Assay, performed on the [employer], is a qualitative in vitro diagnostic test for rapid detection of toxin B gene sequences from unformed (liquid or soft) stool specimens collected from patients suspected of having Clostridioides difficile infection (CDI). The test utilizes automated real-time polymerase chain reaction (PCR) to detect toxin gene sequences associated with toxin producing C. difficile. The Xpert C. difficile Assay is intended as an aid in the diagnosis of CDI. Ruma Ponce MD LAB - MICRO GENERAL ORDERABLES [facility] Inf. Diseases Diag. Lab [address] [place] [address], [place] [phone] * CBC with platelets (06/17/2023 7:18 AM CDT) [facility] WBC Count 4.0 4.0 - 11.0 10e3/uL 06/17/2023 7:34 AM CDT [facility] RBC Count 4.56 3.80 - 5.20 10e6/uL 06/17/2023 7:34 AM CDT [facility] Hemoglobin 12.4 11.7 - 15.7 g/dL 06/17/2023 7:34 AM CDT [facility] Hematocrit 39.0 35.0 - 47.0 % 06/17/2023 7:34 AM CDT [facility] MCV 86 78 - 100 fL 06/17/2023 7:34 AM CDT [facility] MCH 27.2 26.5 - 33.0 pg 06/17/2023 7:34 AM CDT [facility] MCHC 31.8 31.5 - 36.5 g/dL 06/17/2023 7:34 AM CDT [facility] RDW 13.1 10.0 - 15.0 % 06/17/2023 7:34 AM CDT [facility] Platelet Count 188 150 - 450 10e3/uL 06/17/2023 7:34 AM CDT [facility] Blood STRUCTURE OF LEFT UPPER LIMB / Unknown Venipuncture / Unknown 06/17/2023 7:18 AM CDT 06/17/2023 7:30 AM CDT Aldo Flores MD LAB - BLOOD ORDERABL ES [facility] [address] Lab (1st floor, no room number) [place] [address], [facility] [phone] from Last 3 Months Advance Directives For more information, please contact: [phone] Latest Code Status on File Code Status Date Activated Date Inactivated Comments Full Code 06/16/2023 11:50 PM 06/22/2023 8:34 PM All basic and advanced life-sustaining interventions are performed as appropriate Question Answer Comments Code status determined by: Discussion with patient/ legal decision maker Code Status History Code Status Date Activated Date Inactivated Comments Full Code 03/31/2023 10:48 PM 04/02/2023 3:29 PM All basic and advanced life-sustaining interventions are performed as appropriate Question Answer Comments Code status determined by: Discussion with patient/ legal decision maker Full Code 03/21/2023 8:47 PM 03/26/2023 2:37 PM All b asic and advanced life-sustaining interventions are performed as appropriate Question Answer Comments Code status determined by: Discussion with patient/ legal decision maker Full Code 03/20/2023 12:00 AM 03/21/2023 8:47 PM All basic and advanced life-sustaining interventions are performed as appropriate Question Answer Comments Code status determined by: Discussion with patient/ legal decision maker Full Code 02/10/2023 11:59 PM 02/23/2023 3:03 PM All b asic and advanced life-sustaining interventions are performed as appropriate Question Answer Comments Code status determined by: Discussion with patient/ legal decision maker Care Teams Track Service Worker Relationship Specialty Start Date End Date Andrew Israel PA-C [facility] [address] [place] [address] PCP - General 05/15/23
--- OUTSIDE RECORDS SUMMARY | 2023-09-17 14:34 | XMS_ITS | Encounter Summary ---
Author Name Unknown Organization [facility] Address [address] [place] [id number] Care Team Providers Care Senior Counsel Commercial Name Role Phone Andrew Israel PA-C Primary Care Provider [phone] Reason for Visit * Reason Comments Diarrhea Encounter Details Date Type Department Care Team ([facility] st Contact Info) Description 08/07/2023 4:15 PM CREAM DIPPER - 08/07/2023 8:41 PM CREAM DIPPER Emergency [facility] Emergency Dept [address] [place] [address] Car Paris MD [facility] [address] [place] [address] [place] [address] [phone] Crohn's disease of colon without complication (H) Discharge Disposition: Home or Self Care Social History Tobacco Use Types Packs/Day Years Used Date Smoking Tobacco: Never Assessed Adolescent Education Answer Date Record ed Getting School Help Needed Not on file 06/17 Sex and Gender Information Value Date Recorded Sex Assigned at Not on file Gender Identity Not on file Sexual Orientation Not on file documented as of this encounter Last Filed Vital Signs Vital Sign Reading Time Taken Comments Blood Pressure 142/92 08/07/2023 7:17 PM CREAM DIPPER Pulse 92 08/07/2023 2:20 PM CREAM DIPPER Temperature 36.1 ??C (97 ??F) 08/07/2023 2:20 PM CREAM DIPPER Respiratory Rate 18 08/07/2023 2:20 PM CREAM DIPPER Oxygen Saturation 99% 08/07/2023 7:20 PM CREAM DIPPER Inhaled Oxygen Concentration - - Weight - - Height - - Body Mass Index - - documented in this encounter Discharge Instructions * Discharge Instructions* Car Paris MD - 08/07/2023 7:40 PM CREAM DIPPER We will call you to try to arrange close follow-up for you early next week. You should take 40 mg of prednisone to help treat your flare, you should return here if she develop worsening pain, high fever or significant bloody stool. M DIPPER documented in this encounter Medications at Time of Discharge Medication Sig Dispensed Refills Start Date End Date acetaminophen (TYLENOL) 500 MG tabletIndications:RLQ abdominal pain Take 1-2 tablets (500-1,000 mg) by mouth every 6 hours as needed for mild pain 0 04/02/2023 acetaminophen (TYLENOL) 650 MG CR tablet Take 650 mg by mouth At Bedtime 0 albuterol (PROAIR HFA/PROVENTIL HFA/VENTOLIN HFA) 108 (90 Base) MCG/ACT inhaler Inhale 2 puffs into the lungs every 6 hours as needed for shortness of breath, wheezing or cough 0 bisacodyl (DULCOLAX) 10 MG suppositoryIndications :RLQ abdominal pain,Partial small bowel obstruction (H) Place 1 suppository (10 mg) rectally 2 times daily as needed for constipation 10 suppository 1 02/23/2023 cyanocobalamin (CYANOCOBALAMIN) 1000 MCG/ML injection Inject 1,000 mcg as directed every 30 days 0 diphenhydrAMINE (BENADRYL) 25 MG capsule Take 1 capsule (25 mg) by mouth every 6 hours as needed for itching or allergies 30 capsule 0 05/15/2023 esomeprazole (NEXIUM) [address] capsule Take 40 mg by mouth 2 times daily (before meals) Take 30-60 minutes before eating. 0 famotidine (PEPCID) 40 MG tablet Take 40 mg by mouth At Bedtime 0 HYDROcodone-acetaminop hen (NORCO) 5-325 MG tabletIndications:Acut e colitis,Crohn's disease with complication, unspecified gastrointestinal tract location (H),Abdominal pain, unspecified abdominal location Take 1-2 tablets by mouth every 6 hours as needed for severe pain (max acetaminophen (4 gram a day including tylenol)) 20 tablet 0 06/22/2023 hydrOXYzine (ATARAX) 25 MG tabletIndications:Acut e colitis,Crohn's disease with complication, unspecified gastrointestinal tract location (H),Abdominal pain, unspecified abdominal location Take 1 tablet (25 mg) by mouth every 6 hours as needed for other (adjuvant pain) 20 tablet 0 06/22/2023 methocarbamol (ROBAXIN) 500 MG tabletIndications:RLQ abdominal pain,Partial small bowel obstruction (H),IBD (inflammatory bowel disease),Nausea Take 1 tablet (500 mg) by mouth 4 times daily as needed for muscle spasms 15 tablet 1 02/23/2023 montelukast (SINGULAIR) 10 MG tablet Take 10 mg by mouth At Bedtime 0 nortriptyline (PAMELOR) 25 MG capsule Take 25 mg by mouth At Bedtime 0 ondansetron (ZOFRAN ODT) 4 MG ODT tabIndications:IBD (inflammatory bowel disease),Nausea Take 1 tablet (4 mg) by mouth every 8 hours as needed for nausea 15 tablet 2 02/23/2023 traZODone (DESYREL) 100 MG tablet Take 200 mg by mouth At Bedtime 0 predniSONE (DELTASONE) 20 MG tablet Take 2 tablets (40 mg) by mouth daily for 5 days 10 tablet 0 08/07/2023 3 documented as of this encounter ED Notes * Irma Rice RN - 08/07/2023 2:21 PM CST Pt here for diarrhea, nausea, and vomiting. Hx of crohn's and usually flares shortly before her next Remicade infusion which is scheduled for next week. M DIPPER * Car Paris MD - 08/07/2023 2:14 PM CST History Chief Complaint: Diarrhea The history is provided by the patient. Hortensia Buitrago is a 63 year old female with history of Crohn's disease who presents to the ED for evaluation of nausea, vomiting, and diarrhea. Hortensia reports diffuse lower abdominal pain that wraps around her right side to her back. She had a dark stool today that gradually lightened with 8 bowel movements today. She states she usually experiences a flare of her Crohn's shortly before her Remicade infusions. Her next infusion is scheduled for next week. She has received 4 doses so far. She has been taking Tylenol at home for these symptoms. She was recently on steroids during her [id number]/9-06/22 and was discharged home with them. Independent Historian: None - Patient Only Review of External Notes: Discharge summary from June of this year, admission for Crohn's flare required IV high-dose steroids. Medications: Bisacodyl Albuterol Cyanocobalamin Diphenhydramine Esomeprazole Famotidine Hydromorphone Methocarbamol Montelukast Nortriptyline Zofran Senokot Trazodone Past Medical History: Crohn's disease Allergic rhinitis due to pollen Headache Grave's disease PONV Past Surgical History: Laparoscopic resect ileocecal Appendectomy Cholecystectomy Nephrectomy Colonoscopy Physical Exam Patient Vitals for the past 24 hrs: BP Temp Temp src Pulse Resp SpO2 08/07/231919 -- -- -- -- -- 99 % 08/07/231916 (!) 142/92 -- -- -- -- -- 08/07/23 1420 126/88 97 ??F (36.1 ??C) Temporal 92 18 100 % Physical Exam Constitutional: Alert, attentive, GCS 15 Eyes: EOM are normal, anicteric, conjugate gaze CV: distal extremities warm, well perfused Chest: Non-labored breathing on RA GI: No distension. No guarding or rebound. Focal RLQ tenderness. Neurological: Alert, attentive, moving all extremities equally. Skin: Skin is warm and dry. Emergency Department Course Imaging: Abd/pelvis CT, IV contrast only TRAUMA / AAA Final Result IMPRESSION: 1. Mild acute colitis of the rectum and residual colon, improved from prior. 2. Ileocolic resection. 3. Right nephrectomy. 4. Hysterectomy. 5. Cholecystectomy. Report per radiology Laboratory: Labs Ordered and Resulted from Time of ED Arrival to Time of ED Departure COMPREHENSIVE METABOLIC PANEL - Abnormal Result Value Sodium 139 Potassium 4.3 Carbon Dioxide (CO2) 23 Anion Gap 11 Urea Nitrogen 6.8 (*) Creatinine 1.08 (*) GFR Estimate 57 (*) Calcium 8.9 Chloride 105 Glucose 116 (*) Alkaline Phosphatase 95 AST 28 ALT 28 Protein Total 6.9 Albumin 4.2 Bilirubin Total 0.4 ROUTINE UA WITH MICROSCOPIC - Abnormal Color Urine Light Yellow Appearance Urine Clear Glucose Urine Negative Bilirubin Urine Negative Ketones Urine Negative Specific [place] Urine 1.006 Blood Urine Negative pH Urine 5.0 Protein Albumin Urine Negative Urobilinogen Urine Normal Nitrite Urine Negative Leukocyte Esterase Urine Negative Mucus Urine Present (*) RBC Urine <1 WBC Urine <1 CBC WITH PLATELETS AND DIFFERENTIAL WBC Count 4.5 RBC Count 4.78 Hemoglobin 13.2 Hematocrit 40.7 MCV 85 MCH 27.6 MCHC 32.4 RDW 14.6 Platelet Count 215 % Neutrophils 48 % Lymphocytes 35 % Monocytes 13 % Eosinophils 2 % Basophils 1 % Immature Granulocytes 1 NRBCs per 100 WBC 0 Absolute Neutrophils 2.3 Absolute Lymphocytes 1.6 Absolute Monocytes 0.6 Absolute Eosinophils 0.1 Absolute Basophils 0.0 Absolute Immature Granulocytes 0.0 Absolute NRBCs 0.0 Procedures None Emergency Department Course & Assessments: Interventions: Medications HYDROmorphone (PF) (DILAUDID) injection 0.5 mg (has no administration in time range) ondansetron (ZOFRAN) injection 4 mg (4 mg Intravenous $Given 08/07/23 1734) sodium chloride (PF) 0.9% PF flush 100 mL (59 mLs Intravenous $Given 08/07/231810) iopamidol (ISOVUE-370) solution 500 mL (78 mLs Intravenous $Given 08/07/231810) Assessments: 1620 I obtained history and examined the patient as noted above. 2038 I rechecked the patient and explained findings. Patient discharged home with instructions regarding supportive care, medications, and reasons to return. The importance of close follow-up was reviewed. Independent Interpretation (X-rays, CTs, rhythm strip): None Consultations/Discussion of Management or Tests: [address] Sheriff of [facility] regarding the patient's history and presentation in the emergency department today. Social Determinants of Health affecting care: None Disposition: The patient was discharged to home. Impression & Plan [facility] Diagnoses: None Medical Decision Makin-year-old woman past medical history seen for Crohn's disease status post ileocolic anastomosis on Remicade presenting for worsening lower abdominal pain and diarrhea which she reports is typical to happen several days prior to her next Remicade infusion which is due next week. Due to her degree of tenderness, I did proceed with CT imaging which shows mild colitis, she does not have any overt infectious symptoms, I did review her presentation with on-call GI provider given her previous admission for high-dose of steroids, he felt this time she can be managed as an outpatient with oral prednisone, 40 mg she was given enough for through the weekend, Ritika will plan to reach out to her to arr angie follow-up in clinic and will plan to either increase her Remicade dose or move up her frequency. Precautions reviewed and she was discharged. Diagnosis: ICD-10-CM 1. Crohn's disease of colon without complication (H) K50.10 Discharge Medications: Discharge Medication List as of 08/07/2023 7:47 PM START taking these medications Details predniSONE (DELTASONE) 20 MG tablet Take 2 tablets (40 mg) by mouth daily for 5 days, Disp-10 tablet, R-0, Local Print Car Paris MD [facility] 12:15 AM 08/08/23 Scribe Disclosure: Johanna Ruffin Hailie, am serving as a scribe at 4:20 PM on 08/07/2023 to document services personally performed by Car Paris MD based on my observations and the provider's statements to me. 08/07/2023 Car Paris MD Dunbar, John Forrest, MD 08/08/23 0015 M DIPPER 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/2023 12:45 PM CREAM DIPPER Appointment [facility] [address] [place] [address] DavidtrAlisa harper PA-C [facility] [address] [place] [address] COLTEN JOSHI [phone] documented as of this encounter Procedures Procedure Name Priority Date/Time Associated Diagnosis Comments CT ABDOMEN PELVIS W CONTRAST STAT 08/07/2023 6:19 PM CREAM DIPPER ROUTINE UA WITH MICROSCOPIC STAT 08/07/2023 5:26 PM CREAM DIPPER CBC WITH PLATELETS AND DIFFERENTIAL STAT 08/07/2023 3:05 PM CREAM DIPPER CBC WITH PLATELETS & DIFFERENTIAL STAT 08/07/2023 3:05 PM CREAM DIPPER COMPREHENSIVE METABOLIC PANEL STAT 08/07/2023 3:05 PM CREAM DIPPER documented in this encounter Results * Abd/pelvis CT, IV contrast only TRAUMA / AAA (08/07/2023 6:19 PM CREAM DIPPER) Anatomical Region Laterality Modality Abdomen/Pelvis, SUBRAD CT TIFFANIE DY, UMP CT ABDOMEN PELVIS, RAD CT Computed Tomography 08/07/2023 6:19 PM CREAM DIPPER Impressions 08/07/2023 6:53 PM CREAM DIPPER IMPRESSION: 1. ??Mild acute colitis of the rectum and residual colon, improved from prior. 2. ??Ileocolic resection. 3. ??Right nephrectomy. 4. ??Hysterectomy. 5. ??Cholecystectomy. Narrative 08/07/2023 6:53 PM CREAM DIPPER EXAM: CT ABDOMEN PELVIS W CONTRAST LOCATION: [facility] DATE: 08/07/2023 INDICATION: Right lower quadrant pain; [...] pelvic lymphadenopathy. VASCULATURE: No abdominal aortic aneurysm. [id number] atheromatous disease. MUSCULOSKELETAL: No suspicious abnormality. OTHER: No additionally significant abnormalities. Procedure Note Stan Meehan MD - 08/07/2023 EXAM: CT ABDOMEN PELVIS W CONTRAST LOCATION: [facility] DATE: 08/07/2023 INDICATION: Right lower quadrant pain; [...] pelvic lymphadenopathy. VASCULATURE: No abdominal aortic aneurysm. Ihqn-[id number] atheromatousdisease. MUSCULOSKELETAL: No suspicious abnormality. OTHER: No additionally significant abnormalities. IMPRESSION: 1. Mild acute colitis of the rectum and residual colon, improved fromprior. 2. Ileocolic resection. 3. Right nephrectomy. 4. Hysterectomy. 5. Cholecystectomy. Car Paris MD [facility] ORDERABLES * (ABNORMAL) UA with Microscopic (08/07/2023 5:26 PM CREAM DIPPER) Color Urine Light Yellow Colorless, Straw, Light Yellow, Yellow 08/07/2023 5:42 PM [facility] LAB[facility]ORY Appearance Urine Clear Clear 08/07/20 5:42 PM [facility] Glucose Urine Negative Negative mg/dL 08/07/2023 5:42 PM CREAM DIPPER [facility] Bilirubin Urine Negative Negative 5:42 PM [facility] Ketones Urine Negative Negative mg/dL 08/07/2023 5:42 PM [facility]PER LABORAT[facility] Specific [place] Urine 1.006 1.003 - 1.035 08/07/2023 5:42 PM [facility] Blood Urine Negative Negative 08/07/2023 5:42 PM [facility] pH Urine 5.0 5.0 - 7.0 08/07/2023 5:42 PM [facility] Protein Albumin Urine Negative Negative mg/dL 08/07/2023 5:42 PM [facility] Urobilinogen Urine Normal Normal, 2.0 mg/dL 08/07/2023 5:42 PM [facility] Nitrite Urine Negative Negative 08/07/2023 5:42 PM [facility] Leukocyte Esterase Urine Negative Negative 08/07/2023 5:42 PM [facility] Mucus Urine Present(A) None Seen /LPF 08/07/2023 5:42 PM [facility] RBC Urine <1 <=2 /HPF 08/07/2023 5:42 PM [facility] WBC Urine <1 <=5 /HPF 08/07/2023 5:42 PM [facility] Urine MID-STREAM URINE SPECIMEN / Unknown Non-blood Collection / Unknown 08/07/2023 5:26 PM CREAM DIPPER 08/07/2023 5:30 PM CREAM DIPPER Car Paris MD LAB - URINE ORDER [facility] [address] Lab (1st floor, no room number) [place] [address], [facility] [phone] * CBC with platelets and differential (08/07/2023 3:05 PM CREAM DIPPER) WBC Count 4.5 4.0 - 11.0 10e3/uL 08/07/2023 3:14 PM [facility] RBC Count 4.78 3.80 - 5.20 10e6/uL 08/07/2023 3:14 PM [facility] Hemoglobin 13.2 11.7 - 15.7 g/dL 08/07/2023 3:14 PM [facility] Hematocrit 40.7 35.0 - 47.0 % 08/07/2023 3:14 PM [facility] MCV 85 78 - 100 fL 08/07/2023 3:14 PM [facility] MCH 27.6 26.5 - 33.0 pg 08/07/2023 3:14 PM [facility] MCHC 32.4 31.5 - 36.5 g/dL 08/07/2023 3:14 PM [facility] RDW 14.6 10.0 - 15.0 % 08/07/2023 3:14 PM [facility] Platelet Count 215 150 - 450 10e3/uL 08/07/2023 3:14 PM [facility] % Neutrophils 48 % 08/07/2023 3:14 PM [facility] % Lymphocytes 35 % 08/07/2023 3:14 PM [facility] % Monocytes 13 % 08/07/2023 3:14 PM [facility] % Eosinophils 2 % 08/07/2023 3:14 PM [facility] % Basophils 1 % 08/07/2023 3:14 PM [facility] % Immature Granulocytes 1 % 08/07/2023 3:14 PM [facility] NRBCs per 100 WBC 0 <1 /100 023 3:14 PM [facility] Absolute Neutrophils 2.3 1.6 - 8.3 10e3/uL 08/07/2023 3:14 PM [facility] Absolute Lymphocytes 1.6 0.8 - 5.3 10e3/uL 08/07/2023 3:14 PM [facility] Absolute Monocytes 0.6 0.0 - 1.3 10e3/uL 08/07/2023 3:14 PM [facility] Absolute Eosinophils 0.1 0.0 - 0.7 10e3/uL 08/07/2023 3:14 PM [facility] Absolute Basophils 0.0 0.0 - 0.2 10e3/uL 08/07/2023 3:14 PM [facility] Absolute Immature Granulocytes 0.0 <=0.4 10e3/uL 08/07/2023 3:14 PM [facility] Absolute NRBCs 0.0 10e3/uL 08/07/2023 3:14 PM [facility] Blood STRUCTURE OF LEFT UPPER LIMB / Unknown Venipuncture / Unknown 08/07/2023 3:05 PM CREAM DIPPER 08/07/2023 3:10 PM CREAM DIPPER Car Paris MD LAB - BLOOD ORDER [facility] [address] Lab (1st floor, no room number) [place] [address], [facility] [phone] * (ABNORMAL) Comprehensive metabolic panel (08/07/2023 3:05 PM CREAM DIPPER) [facility] Sodium 139 135 - 145 mmol/L 08/07/2023 3:34 PM [facility] Comment:Reference intervals for this test were updated on 06/03/2023 to more accurately reflect our healthy population. There may be differences in the flagging of prior results with similar values performed with this method. Interpretation of those prior results can be made in the context of the updated reference intervals. Potassium 4.3 3.4 - 5.3 mmol/L 08/07/2023 3:34 PM [facility] Carbon Dioxide (CO2) 23 22 - 29 mmol/L 08/07/2023 3:34 PM [facility] Anion Gap 11 7 - 15 mmol/L 08/07/2023 3:34 PM [facility] Urea Nitrogen 6.8(L) 8.0 - 23.0 mg/dL 08/07/2023 3:34 PM [facility] Creatinine 1.08(H) 0.51 - 0.95 mg/dL 08/07/2023 3:34 PM [facility] GFR Estimate 57(L) >60 mL/min/1. 73m2 08/07/2023 3:34 PM [facility] Calcium 8.9 8.8 - 10.2 mg/dL 08/07/2023 3:34 PM [facility] Chloride 105 98 - 107 mmol/L 08/07/2023 3:34 PM [facility] Glucose 116(H) 70 - 99 mg/dL 08/07/2023 3:34 PM [facility] Alkaline Phosphatase 95 40 - 150 U/L 08/07/2023 3:34 PM [facility] Comment:Reference intervals for this test were updated on 07/22/2023 to more accurately reflect our healthy population. There may be differences in the flagging of prior results with similar values performed with this method. Interpretation of those prior results can be made in the context of the updated reference intervals. AST 28 0 - 45 U/L 08/07/2023 3:34 PM [facility] Comment:Reference intervals for this test were updated on 02/17/2023 to more accurately reflect our healthy population. There may be differences in the flagging of prior results with similar values performed with this method. Interpretation of those prior results can be made in the context of the updated reference intervals. ALT 28 0 - 50 U/L 08/07/2023 3:34 PM [facility] Comment:Reference intervals for this test were updated on 02/17/2023 to more accurately reflect our healthy population. There may be differences in the flagging of prior results with similar values performed with this method. Interpretation of those prior results can be made in the context of the updated reference intervals. Protein Total 6.9 6.4 - 8.3 g/dL 08/07/2023 3:34 PM [facility] Albumin 4.2 3.5 - 5.2 g/dL 08/07/2023 3:34 PM [facility] Bilirubin Total 0.4 <=1.2 mg/dL 08/07/2023 3:34 PM [facility] Blood STRUCTURE OF LEFT UPPER LIMB / Unknown Venipuncture / Unknown 08/07/2023 3:05 PM CREAM DIPPER 08/07/2023 3:10 PM CREAM DIPPER Car Paris MD LAB - BLOOD ORDER [facility] [address] [facility] Lab (1st floor, no room number) [place] [address], [facility] [phone] documented in this encounter Visit Diagnoses Diagnosis Crohn's disease of colon without complication (H) documented in this encounter Administered Medications Inactive Administered Medications - up to 3 most recent administrations Medication Order MAR Action Action Date Dose Rate Site HYDROmorphone (PF) (DILAUDID) injection 0.5 mg 0.5 mg, Intravenous, EVERY 15 MIN PRN, severe pain, Starting on Betty 08/07/23 at 1625, For 3 doses iopamidol (ISOVUE-370) solution 500 mL 500 mL, Intravenous, ONCE, On Betty 08/07/23 at 1810, For 1 dose $Given 08/07/2023 6:11 PM CREAM DIPPER 78 mLs ondansetron (ZOFRAN) injection 4 mg 4 mg, Intravenous, ONCE, Administer over 2-5 Minutes, On Betty 08/07/23 at 1630, For 1 dose, Irritant. $Given 08/07/2023 5:34 PM CREAM DIPPER 4 mg sodium chloride (PF) 0.9% PF flush 100 mL 100 mL, Intravenous, ONCE, On Betty 08/07/23 at 1810, For 1 dose $Given 08/07/2023 6:11 PM CREAM DIPPER 59 mLs documented in this encounter Active and Recently Administered Medications Times are shown in CREAM DIPPER. Scheduled Medication Order 08/05/2023 08/06/2023 08/07/2023 iopamidol (ISOVUE-370) solution 500 mL (COMPLETED) 500 mL, Intravenous, ONCE, On Betty 08/07/23 at 1810, For 1 dose 1810 ($Given - Provi courtney: Jana Ventura) ondansetron (ZOFRAN) injection 4 mg (COMPLETED) 4 mg, Intravenous, ONCE, Administer over 2-5 Minutes, On Betty 08/07/23 at 1630, For 1 dose, Irritant. 1734 ($Given - Provi courtney: Irma Rice RN) sodium chloride (PF) 0.9% PF flush 100 mL (COMPLETED) 100 mL, Intravenous, ONCE, On Betty 08/07/23 at 1810, For 1 dose 1810 ($Given - Provi courtney: Jana Ventura) PRN Medication Order 08/05/2023 08/06/2023 08/07/2023 HYDROmorphone (PF) (DILAUDID) injection 0.5 mg 0.5 mg, Intravenous, EVERY 15 MIN PRN, severe pain, Starting on Betty 08/07/23 at 1625, For 3 doses documented in this encounter Care Teams Senior Counsel Commercial Relationship Specialty Start Date End Date Israel, Mukti, PA-C [place] [address] [place] [address] PCP - General 05/15/23 documented as of this encounter
--- OUTSIDE RECORDS SUMMARY | 2023-09-17 14:34 | XMS_ITS | Clinical Summary ---
Author Name Unknown Organization [place] Address [address] [place] [address] Care Team Providers Care Interface Control Officer Name Role Phone Andrew Israel PA-C Primary Care Provider [phone] Allergies Active Allergy Reactions Criticality Noted Date Comments Aspirin Nausea and Vomiting Medium 02/11/2023 Codeine Nausea and Vomiting 02/11/2023 Meperidine Nausea and Vomiting Medium 02/10/2023 N/V Latex Hives High 02/11/2023 Mold 02/11/2023 Oxycodone Anaphylaxis,Hives,Sw el ling High 02/10/2023 Throat swelling, per pt Pt tolerates Tetonia/Vicodin (06/22/2023) Penicillin G Anaphylaxis High 02/11/2023 Oxycodone-Acetaminoph [...] with complication 03/19 RLQ abdominal pain 02/10/2023 Encounters Date Type Department Care Team Description 08/07/2023 4:15 PM FEDERAL JAVA DEVELOPER - 08/07/2023 8:41 PM FEDERAL JAVA DEVELOPER Emergency [facility] Emergency Dept [address] [place] [address] Car Paris MD Crohn's disease of colon without complication (H) Discharge Disposition: Home or Self Care 08/07/2023 Travel 06/20/2023 8:50 AM CDT - 06/20/2023 9:40 AM CDT Surgery [facility] [address] [place] [address] Veronika Vernon MD Colonoscopy with biopsies 06/16/2023 5:22 PM CDT - 06/22/2023 6:15 PM CDT Hospital Encounter [facility] [address] [place] [address] Ruma Ponce MD McDonald, Lindsey E, DO Rigstad, Beau, MD Farnan, Christopher M, MD Abdominal pain, unspecified abdominal location (Primary Dx); Acute colitis; Crohn's disease with complication, unspecified gastrointestinal tract location (H); Pyuria Discharge Disposition: Home or Self Care from Last 3 Months Immunizations Name Administration Dates Next Due COVID-19 MONOVALENT 12+ (Pfizer) 12/26/2020,11/08 Family History Medical History Relation Comments Colon Cancer Niece Relation Status Comments Niece Social History Tobacco Use Types Packs/Day Years [...] Comments Blood Pressure 142/92 08/07/2023 7:17 PM FEDERAL JAVA DEVELOPER Pulse 92 08/07/2023 2:20 PM FEDERAL JAVA DEVELOPER Temperature 36.1 ??C (97 ??F) 08/07/2023 2:20 PM FEDERAL JAVA DEVELOPER Respiratory Rate 18 08/07/2023 2:20 PM FEDERAL JAVA DEVELOPER Oxygen Saturation 99% 08/07/2023 7:20 PM FEDERAL JAVA DEVELOPER Inhaled Oxygen Concentration - - Weight 69.3 kg (152 lb 12.5 oz) 06/19/2023 9:00 AM CDT Height 160 cm (5' 3) 03/31/2023 10:48 PM CDT Body Mass Index 27.06 03/31/2023 10:48 PM CDT Plan of Treatment Upcoming Encounters Date Type Department Care Team (Late st Contact Info) Description 10/01/2023 12:45 PM FEDERAL JAVA DEVELOPER Appointment [facility] [address] [place] [address] [place] [address] Edstrom, Alisa Andrews PA-C [place] [facility] [address] [place] [address] [place] [address] Health Maintenance Due Date Last Done Comments ADVANCE CARE PLANNING 1960 ANNUAL REVIEW OF HM ORDERS 1960 CT COLONOGRAPHY 1960 FIT 1960 FLEX SIG 1960 MAMMO SCREENING 1960 YEARLY PREVENTIVE VISIT 1960 sDNA (Cologuard) 1960 Pneumococcal Vaccine: Pediatrics (0 to 5 Years) and At-Risk Patients (6 to 64 Years) (1 of 2 - PCV) 1965 HIV SCREENING 1974 HEPATITIS C SCREENING 1977 PAP 1980 LIPID 2004 RSV VACCINE ( & 60+) (1 - 1-dose 60+ series) 2019 PHQ-2 (once per calendar year) 2023 COVID-19 Vaccine (4 - 2022- season) 2023 08/04/2023, 12/26/2020, 12/05/2020 ZOSTER IMMUNIZATION (2 of 2) 09/29/2023 08/04/2023 DTAP/TDAP/TD IMMUNIZATION (3 - Td or Tdap) 01/03/2032 01/02/2022, 05/28/2011, 05/17/2004 COLONOSCOPY 06/20/2033 06/20/2023, 06/08, 06/20/2023, Additional history exists COLORECTAL CANCER SCREENING 06/20/2033 INFLUENZA VACCINE Completed 08/04/2023, , 07/03/2017, Additional history exists HPV IMMUNIZATION Aged Out No longer e ligible based on patient's age to complete this topic IPV IMMUNIZATION Aged Out No longer e ligible based on patient's age to complete this topic MENINGITIS IMMUNIZATION Aged Out No l onger eligible based on patient's age to complete this topic RSV MONOCLONAL ANTIBODY Aged Out No l onger eligible based on patient's age to complete this topic Procedures Procedure Name Priority Date/Time Associated Diagnosis Comments CT ABDOMEN PELVIS W CONTRAST STAT 08/07/2023 6:19 PM FEDERAL JAVA DEVELOPER ROUTINE UA WITH MICROSCOPIC STAT 08/07/2023 5:26 PM FEDERAL JAVA DEVELOPER CBC WITH PLATELETS & DIFFERENTIAL STAT 08/07/2023 3:05 PM FEDERAL JAVA DEVELOPER CBC WITH PLATELETS AND DIFFERENTIAL STAT 08/07/2023 3:05 PM FEDERAL JAVA DEVELOPER COMPREHENSIVE METABOLIC PANEL STAT 08/07/2023 3:05 PM FEDERAL JAVA DEVELOPER SURGICAL PATHOLOGY EXAM Routine 06/20/2023 9:04 AM [...] only TRAUMA / AAA (08/07/2023 6:19 PM FEDERAL JAVA DEVELOPER) Anatomical Region Laterality Modality Abdomen/Pelvis, SUBRAD CT TIFFANIE DY, UMP CT ABDOMEN PELVIS, RAD CT Computed Tomography 08/07/2023 6:19 PM FEDERAL JAVA DEVELOPER Impressions 08/07/2023 6:53 PM FEDERAL JAVA DEVELOPER IMPRESSION: 1. ??Mild acute colitis of the rectum and residual colon, improved from prior. 2. ??Ileocolic resection. 3. ??Right nephrectomy. 4. ??Hysterectomy. 5. ??Cholecystectomy. Narrative 08/07/2023 6:53 PM FEDERAL JAVA DEVELOPER EXAM: CT ABDOMEN PELVIS W CONTRAST LOCATION: [facility] DATE: 08/07/2023 INDICATION: Right lower quadrant [...] pelvic lymphadenopathy. VASCULATURE: No abdominal aortic aneurysm. Cxrk-eb-nonjaotc atheromatous disease. MUSCULOSKELETAL: No suspicious abnormality. OTHER: No additionally significant abnormalities. Procedure Note Stan Meehan MD - 08/07/2023 EXAM: CT ABDOMEN PELVIS W CONTRAST LOCATION: [facility] DATE: 08/07/2023 INDICATION: Right lower quadrant [...] pelvic lymphadenopathy. VASCULATURE: No abdominal aortic aneurysm. Rkzb-fo-ohcttace atheromatousdisease. MUSCULOSKELETAL: No suspicious abnormality. OTHER: No additionally significant abnormalities. IMPRESSION: 1. Mild acute colitis of the rectum and residual colon, improved fromprior. 2. Ileocolic resection. 3. Right nephrectomy. 4. Hysterectomy. 5. Cholecystectomy. Car Paris MD G CT ORDERABLES * (ABNORMAL) UA with Microscopic (08/07/2023 5:26 PM FEDERAL JAVA DEVELOPER) Color Urine Light Yellow Colorless, Straw, Light Yellow, Yellow 08/07/2023 5:42 PM FEDERAL JAVA DEVELOPER LABORATORY Appearance Urine Clear Clear 08/07/20 5:42 PM FEDERAL JAVA DEVELOPER [facility] Glucose Urine Negative Negative mg/dL 08/07/2023 5:42 PM FEDERAL JAVA DEVELOPER LABORATORY Bilirubin Urine Negative Negative 5:42 PM FEDERAL JAVA DEVELOPER [facility] Ketones Urine Negative Negative mg/dL 08/07/2023 5:42 PM FEDERAL JAVA DEVELOPER LABORATORY Specific [place] Urine 1.006 1.003 - 1.035 08/07/2023 5:42 PM FEDERAL JAVA DEVELOPER LABORATORY Blood Urine Negative Negative 08/07/2023 5:42 PM FEDERAL JAVA DEVELOPER LABORATORY pH Urine 5.0 5.0 - 7.0 08/07/2023 5:42 PM FEDERAL JAVA DEVELOPER LABORATORY Protein Albumin Urine Negative Negative mg/dL 08/07/2023 5:42 PM FEDERAL JAVA DEVELOPER LABORATORY Urobilinogen Urine Normal Normal, 2.0 mg/dL 08/07/2023 5:42 PM FEDERAL JAVA DEVELOPER LABORATORY Nitrite Urine Negative Negative 08/07/2023 5:42 PM FEDERAL JAVA DEVELOPER [facility] Leukocyte Esterase Urine Negative Negative 08/07/2023 5:42 PM FEDERAL JAVA DEVELOPER LABORATORY Mucus Urine Present(A) None Seen /LPF 08/07/2023 5:42 PM FEDERAL JAVA DEVELOPER LABORATORY RBC Urine <1 <=2 /HPF 08/07/2023 5:42 PM FEDERAL JAVA DEVELOPER [facility] WBC Urine <1 <=5 /HPF 08/07/2023 5:42 PM FEDERAL JAVA DEVELOPER LABORATORY Urine MID-STREAM URINE SPECIMEN / Unknown Non-blood Collection / Unknown 08/07/2023 5:26 PM FEDERAL JAVA DEVELOPER 08/07/2023 5:30 PM FEDERAL JAVA DEVELOPER Car Paris MD LAB - URINE ORDER NATALIIA LABORAT[facility] Lab [address] Lab (1st floor, no room number) [place] [address], [facility] [phone] * CBC with platelets and differential (08/07/2023 3:05 PM FEDERAL JAVA DEVELOPER) Only the most recent of2 resultswithin the time period is included. WBC Count 4.5 4.0 - 11.0 10e3/uL 08/07/2023 3:14 PM FEDERAL JAVA DEVELOPER [facility] RBC Count 4.78 3.80 - 5.20 10e6/uL 08/07/2023 3:14 PM FEDERAL JAVA DEVELOPER [facility] Hemoglobin 13.2 11.7 - 15.7 g/dL 08/07/2023 3:14 PM FEDERAL JAVA DEVELOPER [facility] Hematocrit 40.7 35.0 - 47.0 % 08/07/2023 3:14 PM FEDERAL JAVA DEVELOPER [facility] MCV 85 78 - 100 fL 08/07/2023 3:14 PM FEDERAL JAVA DEVELOPER [facility] MCH 27.6 26.5 - 33.0 pg 08/07/2023 3:14 PM FEDERAL JAVA DEVELOPER [facility] MCHC 32.4 31.5 - 36.5 g/dL 08/07/2023 3:14 PM FEDERAL JAVA DEVELOPER [facility] RDW 14.6 10.0 - 15.0 % 08/07/2023 3:14 PM FEDERAL JAVA DEVELOPER [facility] Platelet Count 215 150 - 450 10e3/uL 08/07/2023 3:14 PM FEDERAL JAVA DEVELOPER [facility] % Neutrophils 48 % 08/07/2023 3:14 PM FEDERAL JAVA DEVELOPER [facility] % Lymphocytes 35 % 08/07/2023 3:14 PM FEDERAL JAVA DEVELOPER [facility] % Monocytes 13 % 08/07/2023 3:14 PM FEDERAL JAVA DEVELOPER [facility] % Eosinophils 2 % 08/07/2023 3:14 PM FEDERAL JAVA DEVELOPER [facility] % Basophils 1 % 08/07/2023 3:14 PM FEDERAL JAVA DEVELOPER [facility] % Immature Granulocytes 1 % 08/07/2023 3:14 PM FEDERAL JAVA DEVELOPER [facility] NRBCs per 100 WBC 0 <1 /100 023 3:14 PM FEDERAL JAVA DEVELOPER [facility] Absolute Neutrophils 2.3 1.6 - 8.3 10e3/uL 08/07/2023 3:14 PM FEDERAL JAVA DEVELOPER [facility] Absolute Lymphocytes 1.6 0.8 - 5.3 10e3/uL 08/07/2023 3:14 PM FEDERAL JAVA DEVELOPER [facility] Absolute Monocytes 0.6 0.0 - 1.3 10e3/uL 08/07/2023 3:14 PM FEDERAL JAVA DEVELOPER [facility] Absolute Eosinophils 0.1 0.0 - 0.7 10e3/uL 08/07/2023 3:14 PM FEDERAL JAVA DEVELOPER [facility] Absolute Basophils 0.0 0.0 - 0.2 10e3/uL 08/07/2023 3:14 PM FEDERAL JAVA DEVELOPER [facility] Absolute Immature Granulocytes 0.0 <=0.4 10e3/uL 08/07/2023 3:14 PM FEDERAL JAVA DEVELOPER [facility] Absolute NRBCs 0.0 10e3/uL 08/07/2023 3:14 PM FEDERAL JAVA DEVELOPER [facility] Blood STRUCTURE OF LEFT UPPER LIMB / Unknown Venipuncture / Unknown 08/07/2023 3:05 PM FEDERAL JAVA DEVELOPER 08/07/2023 3:10 PM FEDERAL JAVA DEVELOPER Car Paris MD LAB - BLOOD ORDER [facility] Lab [address] [facility] Lab (1st floor, no room number) [place] [address], [facility] [phone] * (ABNORMAL) Comprehensive metabolic panel (08/07/2023 3:05 PM FEDERAL JAVA DEVELOPER) Sodium 139 135 - 145 mmol/L 08/07/2023 3:34 PM FEDERAL JAVA DEVELOPER LABORATORY Comment:Reference intervals for this test were updated on 06/03/2023 to more accurately reflect our healthy population. There may be differences in the flagging of prior results with similar values performed with this method. Interpretation of those prior results can be made in the context of the updated reference intervals. Potassium 4.3 3.4 - 5.3 mmol/L 08/07/2023 3:34 PM FEDERAL JAVA DEVELOPER LABORATORY Carbon Dioxide (CO2) 23 22 - 29 mmol/L 08/07/2023 3:34 PM FEDERAL JAVA DEVELOPER LABORATORY Anion Gap 11 7 - 15 mmol/L 08/07/2023 3:34 PM FEDERAL JAVA DEVELOPER LABORATORY Urea Nitrogen 6.8(L) 8.0 - 23.0 mg/dL 08/07/2023 3:34 PM FEDERAL JAVA DEVELOPER LABORATORY Creatinine 1.08(H) 0.51 - 0.95 mg/dL 08/07/2023 3:34 PM FEDERAL JAVA DEVELOPER LABORATORY GFR Estimate 57(L) >60 mL/min/1. 73m2 08/07/2023 3:34 PM FEDERAL JAVA DEVELOPER LABORATORY Calcium 8.9 8.8 - 10.2 mg/dL 08/07/2023 3:34 PM FEDERAL JAVA DEVELOPER [facility] Chloride 105 98 - 107 mmol/L 08/07/2023 3:34 PM FEDERAL JAVA DEVELOPER [facility] Glucose 116(H) 70 - 99 mg/dL 08/07/2023 3:34 PM FEDERAL JAVA DEVELOPER [facility] Alkaline Phosphatase 95 40 - 150 U/L 08/07/2023 3:34 PM FEDERAL JAVA DEVELOPER [facility] Comment:Reference intervals for this test were updated on 07/22/2023 to more accurately reflect our healthy population. There may be differences in the flagging of prior results with similar values performed with this method. Interpretation of those prior results can be made in the context of the updated reference intervals. AST 28 0 - 45 U/L 08/07/2023 3:34 PM FEDERAL JAVA DEVELOPER [facility] Comment:Reference intervals for this test were updated on 02/17/2023 to more accurately reflect our healthy population. There may be differences in the flagging of prior results with similar values performed with this method. Interpretation of those prior results can be made in the context of the updated reference intervals. ALT 28 0 - 50 U/L 08/07/2023 3:34 PM FEDERAL JAVA DEVELOPER [facility] Comment:Reference intervals for this test were updated on 02/17/2023 to more accurately reflect our healthy population. There may be differences in the flagging of prior results with similar values performed with this method. Interpretation of those prior results can be made in the context of the updated reference intervals. Protein Total 6.9 6.4 - 8.3 g/dL 08/07/2023 3:34 PM FEDERAL JAVA DEVELOPER [facility] Albumin 4.2 3.5 - 5.2 g/dL 08/07/2023 3:34 PM FEDERAL JAVA DEVELOPER [facility] Bilirubin Total 0.4 <=1.2 mg/dL 08/07/2023 3:34 PM FEDERAL JAVA DEVELOPER [facility] Blood STRUCTURE OF LEFT UPPER LIMB / Unknown Venipuncture / Unknown 08/07/2023 3:05 PM FEDERAL JAVA DEVELOPER 08/07/2023 3:10 PM FEDERAL JAVA DEVELOPER Car Paris MD LAB - BLOOD ORDER NATALIIA [facility] [address] [facility] (1st floor, no room number) [place] [address], [facility] [phone] * Surgical Pathology Exam (06/20/2023 9:04 AM CDT) Case Report Surgical Pathology Report ? Case: [id number] ? Authorizing Provider: ??Veronika Vernon MD ?Collected: ? 06/20/2023 09:04 AM ? Ordering Location: ? [facility] ?Received: ?06/20/2023 09:19 AM ? [facility] ? Pathologist: ? Cecile St MD PhD [...] 0.2-0.5 cm. Entirely submitted in one cassette. (Ana Rosa Michealjasejohn) 06/23/2023 11:42 AM CDT LABORATORY Microscopic Description Microscopic examination was performed. 06/23/2023 11:42 AM CDT LABORATORY Performing Labs The technical component of this testing was completed at [facility] 06/23/2023 11:42 AM CDT LABORATORY Case Images 06/23/2023 11:42 AM CDT LABORATORY Biopsy COLON STRUCTURE / Unknown 06/20/2023 9:04 AM CDT 06/20/2023 9:19 AM CDT Veronika CAZARES - GERBER [facility] Acute Care Lab [address] [facility] Lab (1st floor, no room number) [place] [address], [facility] [phone] * COLONOSCOPY (06/20/2023 8:38 AM CDT) COLONOSCOPY [facility] Patient Name: Hortensia Buitrago ?Procedure Date: 06/20/2023 8:38 AM ? Date of : 1960 ? Admit Type: Inpatient Age: 63 ? Gender: Female Attending MD: VERONIKA VERNON MD, ?Total Sedation Time: _22_ minutes of continuous bedside 1:1 Instrument Name: 253 - Pediatric Colonoscope Procedure: ?Colonoscopy Indications: ?Crohn's disease of the colon Providers: ?VERONIKA VERNON MD (Doctor) Referring MD: ? Medicines: [...] monitored continuously. The ?Olympus Pediatric Colonoscope Model #[id number], ?[place] #253, SN #[id number] was introduced through the ?anus and advanced [...] improve. Will follow. ? Electonically signed by Veronika Vernon MD VERONIKA VERNON MD 06/20/2023 9:29:14 AM I was physically present for the entire viewing portion of the exam. VERONIKA VERNON MD Number of Addenda: 0 Note Initiated On: 06/20/2023 8:38 AM MRN: ?[id number] Procedure Date: ? 06/20/2023 8:38:02 AM Total Procedure Duration: 0 hours 17 minutes 16 seconds Estimated Blood Loss: ? Scope In: 8:54:15 AM Scope Out: 9:11:31 AM RADIOLOGY RESULTS 06/20/2023 8:38 AM CDT Veronika Vernon MD PROCEDURES RADIOLOGY RESULTS * (ABNORMAL) [...] - 10.2 mg/dL 06/20/2023 6:52 AM CDT [facility] LAB[facility]AT[facility] Glucose 110(H) 70 - 99 mg/dL 06/20/2023 6:52 AM CDT [facility] Blood STRUCTURE OF LEFT UPPER LIMB / Unknown Venipuncture / Unknown 06/20/2023 6:22 AM CDT 06/20/2023 6:28 AM CDT Valdez Gallardo MD LAB - BLOOD ORDER NATALIIA [facility] Acute Care Lab [address] [facility] Lab (1st floor, no room number) [place] [address], [facility] [phone] * Calprotectin Feces (06/17/2023 2:20 PM CDT) Calprotectin Feces 30.1 0.0 - 49.9 mg/kg 06/18/2023 12:45 PM CDT [facility]/PROT/END O Comment:Normal Stool RECTAL CONTENTS / Unknown Non-blood Collection / Unknown 06/17/2023 2:20 PM CDT 06/17/2023 2:25 PM CDT Aldo Flores MD LAB - STOOLS ORDERAB LES [facility]/PROT/ENDO [facility] Core/Prot/Endo [address] [facility] [address] [facility], [address] [place] [address], [facility] [phone] * Enteric Bacteria and Virus Panel PCR [...] PM CDT Assay performed using the FDA-cleared AnimalvitaeArray GI Panel from [employer] ??A negative result should not rule [...] by the Infectious Diseases Diagnostic Laboratory at [facility]. This laboratory is certified under the Clinical Laboratory Improvement Amendments of 1988 (CLIA-88) as qualified to perform high complexity clinical laboratory testing. Ruma Ponce MD LAB - MICRO GENERAL ORDERABLES Performing Organization Address City/[facility]/ZIP Co de Phone Number [facility] Inf. Diseases Diag. Lab [address] [facility], [address] [place] [address], [facility] [phone] * C. difficile Toxin B PCR with reflex to C. difficile Antigen and Toxins A/B EIA (06/17/2023 2:19 PMCDT) [facility] C Difficile Toxin B by PCR [...] 2:19 PM CDT 06/17/2023 2:[address] [facility] IDD LABORATORY - 06/17/2023 6:04 PM CDT The CepKidlandiaid Xpert C. difficile Assay, performed on the [employer] GeneXpert?? Instrument Systems, is a qualitative in vitro [...] Ponce MD LAB - MICRO GENERAL ORDERABLES Performing Organization Address [facility] Co de Phone Number [facility] Inf. Diseases Diag. Lab [address] [facility], [address] [place] [address], [facility] [phone] * CBC with platelets (06/17/2023 7:18 AM CDT) WBC Count 4.0 4.0 - 11.0 10e3/uL [...] LAB - BLOOD ORDERABL ES [facility] LAB[facility]AT[facility] Acute Care Lab [address] Lab (1st floor, no room number) [place] [address], [facility] [phone] from Last 3 Months Advance Directives For more information, please contact: [phone] Latest Code Status on File Code Status [...] with patient/ legal decision maker Care Teams Interface Control Officer Relationship Specialty Start Date End Date Andrew Israel PA-C [facility] [address] [place] [place] [address] PCP - General 05/15/23
--- OUTSIDE RECORDS SUMMARY | 2023-09-17 14:35 | XMS_ITS | Encounter Summary ---
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 Name Role Phone Andrew Israel PA-C Primary Care Provider [phone] Reason for Visit * Reason Comments Diarrhea * Auth/Cert (Routine) Specialty Diagnoses / Procedures Referred By Contac t Referred To Contact EMERGENCY MEDICINE Diagnoses Acute colitis Acute colitis Emergency Dept [address] [place] [address] Referral ID Status Reason Start Date Expiration Date Visits Re quested Visits Authorized [id number] 1 1 Encounter Details Date Type Department Care Team (Late st Contact Info) Description 06/20/2023 8:50 AM CDT - 06/20/2023 9:40 AM CDT Surgery [facility] [place] [address] [place] [address] Veronika Glass MD [facility] [address] [place] [id number] Colonoscopy with biopsies Surgery Details Date/Time Status Location OR Service Patient Class Case Class Case Type Trauma Case? 06/20/23 8:50 AM Posted GI GI B Gastroenterology Inpatient NEST 5 - Semi-Urg ent (within 48hrs) Panel 1 Procedure LRB Anes Op Region Wound Class Comments Colonoscopy with biopsies N/A Moderate Sedation Rectum II-Clean Contaminated Surgeon Surgeon Role Service Panel Veronika Glass MD Primary Gastroenterology 1 documented in this encounter Social History Tobacco Use Types Packs/Day Years Used Date Smoking Tobacco: Never Assessed Tobacco Cessation:Counseling Given: Not Answered Adolescent Education Answer Date Record ed Getting School Help Needed Not on file 06/17 Sex and Gender Information Value Date Recorded Sex Assigned at Not on file Gender Identity Not on file Sexual Orientation Not on file COVID-19 Exposure Response Date Recorded In the last 10 days, have yo u been in contact with someone who was confirmed or suspected to have Coronavirus/COVID-19? No / Unsure 06/16/2023 5:14 PM CDT documented as of this encounter Last Filed Vital Signs Vital Sign Reading Time Taken Comments Blood Pressure 128/84 06/20/2023 9:38 AM CDT Pulse 76 06/20/2023 9:38 AM CDT Temperature 36.9 ??C (98.4 ??F) 06/20/2023 1 2:24 AM CDT Respiratory Rate 14 06/20/2023 9:38 AM CDT Oxygen Saturation 97% 06/20/2023 9:38 AM CDT Inhaled Oxygen Concentration - - Weight 69.3 kg (152 lb 12.5 oz) 06/19/2023 9:00 AM CDT Height - - Body Mass Index 27.06 03/31/2023 10:48 PM CDT documented in this encounter Discharge Summaries * Philipp Bynum MD - 06/22/2023 10:35 AM CDT [facility] Hospitalist Discharge Summary Date of Admission: 06/16/2023 Date of Discharge: 06/22/2023 Discharging Provider: Philipp Bynum MD Discharge Service: Hospitalist Service Primary Care Physician Andrew Israel Discharge Diagnoses Crohn's disease with acute flare Abdominal pain History of ileocolic resection Possible E. coli UTI Stage II chronic kidney disease Hospital Course Hortensia Buitrago is a 63 year old female admitted on 06/16/2023. She has a history of Crohn's diseasefor which she had ileocolic resection for refractory disease in March, Remicade as needed therapy. Surgery in March had several months of good symptom control without issue. Over the last 5 days has had persistent watery diarrhea, upwards of 10 stools each day, no blood in the stool but mucus present. [facility] consulted from the ED, recommended starting IV Solu-Medrol, formal GI consult placed patient underwent a colonoscopy 06/20/2023. Crohn's disease with acute flare/ S/p ileocolic resection 03/2023 Admitted in February of this year with SBO related to Crohn's disease, initially treated medically but eventually opted for ileocolic resection 03/21. Since then treated with steroid taper, started on Remicade and did not have any diarrhea or abdominal pain since discharge. About 5 days higher to admission she started having worsening abdominal pain and frequent watery diarrhea with some mucus present. No blood appreciated in the stool. CT on admission showed wall thickening and mucosal enhancement of the ascending and sigmoid colon suggesting of acute colitis, but no joanna complications with the anastomosis or evidence of obstruction. Systemic inflammatory markers were negative, fecal calprotectin was 30.1. She was started on IV steroids and has remained on them since admission along with Remicade. Her symptoms are slowly improving. Her C. difficile was negative. She was placed on a full liquid diet. She was seen by GI and underwent a colonoscopy 06/20/2023 which did not show any significant inflammation. Biopsies were taken, pathology pending from 06/20 I suspect will not be useful. She was found to have internal hemorrhoids. She was placed back on a full liquid diet and will advanceher diet slowly. She continues to have pain though seems to be doing better. Her goal is to be using oral pain medication Vicodin and atarax so she can go home. She has been getting Dilaudid which has been stopped. Her diet is being tolerated. Denies any nausea or vomiting. Goal is for her to go home with a prednisone taper which I have ordered as well. She will return home when she feels that her symptoms can be controlled with oral medications. #Suspected urinary tract infection with isolated E. coli on earlier urine culture -Urinalysis sent earlier during admission process showed bacteriuria and some pyuria. Culture showed susceptible E. coli 50-100 K. Patient is allergic to penicillin and it was resistant to Macrobid. Patient was placed on a short course of Cipro which she will continue and finish. Chronic kidney disease, stage II Baseline creatinine appears to be 1-1.1. Creatinine on arrival 1.08. Will monitor with daily labs. Patient's creatinine now is 1 with a GFR of 63. Clinically Significant Risk Factors Significant Results and Procedures Most Recent 3 CBC's: Recent Labs Lab Test 06/20/23 0622 06/17/23 0718 06/16/23 1737 WBC 6.7 4.0 5.7 HGB 12.5 12.4 13.9 MCV 84 86 86 PLT 224 188 209 Most Recent 3 BMP's: Recent Labs Lab Test 06/20/23 0622 06/17/23 0718 06/16/23 1737 NA 141 141 139 POTASSIUM 3.8 4.3 3.6 CHLORIDE 104 109* 103 CO2 23 BUN 9.2 6.4* 7.4* CR 1.00* 0.91 1.08* ANIONGAP 9 10 13 DAJA 9.5 9.2 9.4 GLC 110* 123* 95 Most Recent Urinalysis: Recent Labs Lab Test 06/16/23 1750 COLOR Light Yellow APPEARANCE Clear URINEGLC Negative URINEBILI Negative URINEKETONE Negative SG 1.013 UBLD Negative URINEPH 5.0 PROTEIN Negative NITRITE Negative LEUKEST Small* RBCU 1 WBCU 7* , Results for orders placed or performed during the hospital encounter of 06/16/23 CT Abdomen Pelvis w Contrast Narrative EXAM: CT ABDOMEN PELVIS W CONTRAST LOCATION: [facility] DATE: 06/16/2023 INDICATION: hx Crohn's, RUQ epigastric pain COMPARISON: CT abdomen and pelvis 03/31/2023 TECHNIQUE: CT scan of the abdomen and pelvis was performed following injection of IV contrast. Multiplanar reformats were obtained. Dose reduction techniques were used. CONTRAST: 75mL Isovue 370 FINDINGS: LOWER CHEST: Normal. HEPATOBILIARY: The liver is unremarkable. Cholecystectomy. PANCREAS: Normal. SPLEEN: Small hypodense splenic lesion is unchanged. ADRENAL GLANDS: Normal. KIDNEYS/BLADDER: Right nephrectomy. BOWEL: Ileocolic resection. Mild wall thickening and mucosal enhancement involving the residual ascending colon and sigmoid colon. Fluid within the sigmoid colon. No evidence for obstruction. LYMPH NODES: Normal. VASCULATURE: Unremarkable. PELVIC ORGANS: Hysterectomy. No free pelvic fluid. MUSCULOSKELETAL: Advanced degenerative disc disease L5 level. Impression IMPRESSION: 1. Ileocolic anastomosis. Wall thickening and mucosal enhancement involving the ascending and sigmoid colon suggesting an acute colitis. No evidence for obstruction. 2. Fluid in the sigmoid colon well likely result in diarrhea. Follow up/instructions: Patient can follow-up with her primary care provider for ongoing pain control Pending test results at discharge: Unresulted Labs Ordered in the Past 30 Days of this Admission Date and Time Order Name Status Description 06/20/2023 9:09 AM Surgical Pathology Exam In process These results will be followed up by primary care provider/GI Discharge Orders Reason for your hospital stay Abdominal pain, crohn's Follow-up and recommended labs and tests Follow up with primary care provider, Andrew Israel, within 7 days for hospital follow- up. No followup labs or test are needed.Follow up pain Activity Your activity upon discharge: activity as tolerated Diet Follow this diet upon discharge: Orders Placed This Encounter Snacks/Supplements Adult: Other; Chocolate Ensure + 4 oz milk at 10 am + chocolate Ensure w/ ice cream at dinner; With Meals Advance Diet as Tolerated: Regular Diet Adult Discharge Disposition Discharged to home Condition at discharge: Stable Consultations This Hospital Stay GASTROENTEROLOGY IP CONSULT Code Status Full Code Time Spent on this Encounter I, Philipp Bynum MD, personally saw the patient today and spent less than or equal to 30 minutes discharging this patient. Brandt with nursing, GI notes reviewed This document was created using voice recognition technology. Please excuse any typographical errors that may have occurred. Please call with any questions. Philipp Bynum MD [facility] [address] [facility] [address] Physical Exam Vital Signs: Temp: 98 ??F (36.7 ??C) Temp src: Oral BP: 130/85 Pulse: 82 Resp: 16 SpO2: 96 % O2 Device: None (Room air) Weight: 152 lbs 12.46 oz Exam seems to be slightly better from yesterday GEN: Patient appears her stated age, sitting up in bed, does not appear appreciably ill, wants to go home but also wants to make sure she is not can come back HEENT; membranes are moist Lungs: equal chest expansion, clear to auscultation, no wheezes, no stridor, no crackles, good air movement Heart: normal rate, normal rhythm, no murmurs Abdomen: Little hypoactive bowel sounds, some right-sided tenderness, no rebound or guarding Extremities: no deformities, no edema moves all extremities Neuro; follow commands, alert and oriented x3, spontaneous speech, coherent, moves all extremities spontaneously, no focal deficits Discharge Medications Current Discharge Medication List START taking these medications Details HYDROcodone-acetaminophen (NORCO) 5-325 MG tablet Take 1-2 tablets by mouth every 6 hours as neededfor severe pain (max acetaminophen (4 gram a day including tylenol)) Qty: 20 tablet, Refills: 0 Associated Diagnoses: Acute colitis; Crohn's disease with complication, unspecified gastrointestinal tract location (H); Abdominal pain, unspecified abdominal location hydrOXYzine (ATARAX) 25 MG tablet Take 1 tablet (25 mg) by mouth every 6 hours as needed for other (adjuvant pain) Qty: 20 tablet, Refills: 0 Associated Diagnoses: Acute colitis; Crohn's disease with complication, unspecified gastrointestinal tract location (H); Abdominal pain, unspecified abdominal location predniSONE (DELTASONE) 10 MG tablet Take 6 tablets (60 mg) by mouth daily for 3 days, THEN 4 tablets (40 mg) daily for 3 days, THEN 2 tablets (20 mg) daily for 3 days, THEN 1 tablet (10 mg) daily for4 days. Qty: 40 tablet, Refills: 0 Associated Diagnoses: Acute colitis; Crohn's disease with complication, unspecified gastrointestinal tract location (H); Abdominal pain, unspecified abdominal location CONTINUE these medications which have NOT CHANGED Details acetaminophen (TYLENOL) 500 MG tablet Take 1-2 tablets (500-1,000 mg) by mouth every 6 hours as needed for mild pain Associated Diagnoses: RLQ abdominal pain acetaminophen (TYLENOL) 650 MG CR tablet Take 650 mg by mouth At Bedtime albuterol (PROAIR HFA/PROVENTIL HFA/VENTOLIN HFA) 108 (90 Base) MCG/ACT inhaler Inhale 2 puffs intothe lungs every 6 hours as needed for shortness of breath, wheezing or cough bisacodyl (DULCOLAX) [address] 1 suppository (10 mg) rectally 2 times daily as neededfor constipation Qty: 10 suppository, Refills: 1 Associated Diagnoses: RLQ abdominal pain; Partial small bowel obstruction (H) cyanocobalamin (CYANOCOBALAMIN) 1000 MCG/ML injection Inject 1,000 mcg as directed every 30 days diphenhydrAMINE (BENADRYL) 25 MG capsule Take 1 capsule (25 mg) by mouth every 6 hours as needed for itching or allergies Qty: 30 capsule, Refills: 0 esomeprazole (NEXIUM) [address] capsule Take 40 mg by mouth 2 times daily (before meals) Take 30-60 minutes before eating. famotidine (PEPCID) 40 MG tablet Take 40 mg by mouth At Bedtime methocarbamol (ROBAXIN) 500 MG tablet Take 1 tablet (500 mg) by mouth 4 times daily as needed for muscle spasms Qty: 15 tablet, Refills: 1 Associated Diagnoses: RLQ abdominal pain; Partial small bowel obstruction (H); IBD (inflammatory bowel disease); Nausea montelukast (SINGULAIR) 10 MG tablet Take 10 mg by mouth At Bedtime nortriptyline (PAMELOR) 25 MG capsule Take 25 mg by mouth At Bedtime ondansetron (ZOFRAN ODT) 4 MG ODT tab Take 1 tablet (4 mg) by mouth every 8 hours as needed for nausea Qty: 15 tablet, Refills: 2 Associated Diagnoses: IBD (inflammatory bowel disease); Nausea traZODone (DESYREL) 100 MG tablet Take 200 mg by mouth At Bedtime Allergies Allergies Allergen Reactions Latex Hives Oxycodone Anaphylaxis, Hives and Swelling Throat swelling, per pt Penicillin G Anaphylaxis Sumatriptan Palpitations Aspirin Nausea and Vomiting Demerol Hcl [Meperidine] Nausea and Vomiting N/V Percocet [Oxycodone-Acetaminophen] Nausea and Vomiting N/V Codeine Nausea and Vomiting Mold documented in this encounter Discharge Instructions * Discharge Instructions* Jade Jean RN - 06/20/2023 9:24 AM CDT The patient has received a copy of the Provation Report the doctor has written and was discussed with the patient and given to primary RN prior to returning to the inpatient floor. All questions wereanswered and patient has provider's office phone number for further questions or concerns. * Attachments The following attachments cannot be sent through Care Everywhere. * Hemorrhoids (Tanzanian) documented in this encounter Medications at Time [...] by mouth At Bedtime 0 predniSONE (DELTASONE) 10 MG tabletIndications:Acut e colitis,Crohn's disease with complication, unspecified gastrointestinal tract location (H),Abdominal pain, unspecified abdominal location Take 6 tablets (60 mg) by mouth daily for 3 days, THEN 4 tablets (40 mg) daily for 3 days, THEN 2 tablets (20 mg) daily for 3 days, THEN 1 tablet (10 mg) daily for 4 days. 40 tablet 0 06/22/2023 3 documented as of this encounter Progress Notes * Stan Harrington MD - 06/21/2023 3:57 PM CDT [facility] Medicine Progress Note - GI Date of Admission: 06/16/2023 Assessment & Plan Abdominal pain, etiology unclear. This patient has a history of Crohn's ileocolitis with an unremarkable colonoscopy, and no evidence for active disease. The abdominal pain is point like and is not consistent with Crohn's, or partial bowel obstruction. There is no evidence for pancreatitis or biliary colic. There may be a functional component to the pain as I cannot come up with any organic source at this time. The pain certainly seems disproportionate to the findings and exam. At this time we will maintain the patient's pain control and maintain a regular diet. I am okay with discharge except that we do not have the patient's pain under control at this time. Diet: Snacks/Supplements Adult: Other; Chocolate Ensure + 4 oz milk at 10 am + chocolate Ensure w/ ice cream at dinner; With Meals Advance Diet as Tolerated: Regular Diet Adult DVT Prophylaxis: Defer to primary service Uribe Catheter: Not present Lines: None Cardiac Monitoring: None Code Status: Full Code Clinically Significant Risk Factors Stan Harrington MD, [facility] Securely message with [employer] (more info) Text page via [employer] Paging/Directory Interval History The patient reports no ongoing diarrhea and has actually had no stool since last night. She still reports abdominal pain in the right mid and right lower abdomen but this is relatively localized. There is been no nausea or vomiting the patient has a decreased appetite but says she is eating and tolerating a regular diet. She has no heartburn or regurgitation no dysphagia or odynophagia. Note is made that the patient's recent colonoscopy showed an unremarkable anastomosis and unremarkable colon biopsies are pending. CT scan did show mucosal enhancement and wall thickening in the leftcolon consistent with colitis but this was not seen at colonoscopy. Physical Exam Vital Signs: Temp: 98.6 ??F (37 ??C) Temp src: Oral BP: (!) 148/85 Pulse: 73 Resp: 18 SpO2: 97 % [id number]: None (Room air) Weight: 152 lbs 12.46 oz General Appearance: normal Respiratory: clear Cardiovascular: rrr GI: soft, abd. Mild tenderness without guarding or rebound in point areas of the right mid and right lower abd 25 MINUTES SPENT BY ME on the date of service doing chart review, history, exam, documentation & further activities per the note. Data PAST 24 HR DATA REVIEWED Imaging results reviewed over the past 24 hrs: No results found for this or any previous visit (from the past 24 hour(s)). * See Milton RN - 06/21/2023 1:23 PM CDT Pts pain down to a 5/10 after dilaudid given, Pt up walking halls x3 this shift. Family was at bedside, * Philipp Bynum MD - 06/21/2023 9:18 AM CDT [facility] Medicine Progress Note - Hospitalist Service Date of Admission: 06/16/2023 Assessment & Plan Hortensia Buitrago is a 63 year old female admitted on 06/16/2023. She has a history of Crohn's diseasefor which she had ileocolic resection for refractory disease in March, Remicade as needed therapy. Surgery in March had several months of good symptom control without issue. Over the last 5 days has had persistent watery diarrhea, upwards of 10 stools each day, no blood in the stool but mucus present. [facility] consulted from the ED, recommended starting IV Solu-Medrol, formal GI consult placed patient underwent a colonoscopy 06/20/2023. Crohn's disease with acute flare/ S/p ileocolic resection 03/2023 Admitted in February of this year with SBO related to Crohn's disease, initially treated medically but eventually opted for ileocolic resection 03/21. Since then treated with steroid taper, started on Remicade and did not have any diarrhea or abdominal pain since discharge. About 5 days higher to admission she started having worsening abdominal pain and frequent watery diarrhea with some mucus present. No blood appreciated in the stool. CT this admission showed wall thickening and mucosal enhancement of the ascending and sigmoid colon suggesting of acute colitis, but no joanna complications with the anastomosis or evidence of obstruction. Systemic inflammatory markers were negative, fecal calprotectin was 30.1. She was started on IV steroids and has remained on them since admission along with Remicade. Her symptoms are slowly improving. Her C. difficile was negative. She was placed on a full liquid diet. She was seen by GI and underwent a colonoscopy 06/20/2023 which did not show any significant inflammation. Biopsies were taken, pathology pending from 06/20. She was found to have internal hemorrhoids. She was placed back on a full liquid diet and will advance her diet slowly. She continues to have pain. Her goal is to be using oral pain medication Vicodin and atarax so she can go home. We will place the patient back on full liquid diet today and hopefully can transition her to a soft diet as her symptoms improved. GI needs to weigh in and make a decision on ongoing steroids for home and a taper. Transition to orals. #Suspected urinary tract infection with isolated E. coli on earlier urine culture -Urinalysis sent earlier during admission process showed bacteriuria and some pyuria. Culture showed susceptible E. coli 50-100 K. Patient is allergic to penicillin and it was resistant to Macrobid. Patient was placed on a short course of Cipro which she will continue and finish. Chronic kidney disease, stage II Baseline creatinine appears to be 1-1.1. Creatinine on arrival 1.08. Will monitor with daily labs. Patient's creatinine now is 1 with a GFR of 63. Diet: Snacks/Supplements Adult: Other; Chocolate Ensure + 4 oz milk at 10 am + chocolate Ensure w/ ice cream at dinner; With Meals Advance Diet as Tolerated: Regular Diet Adult DVT Prophylaxis: Pneumatic Compression Devices Uribe Catheter: Not present Lines: None Cardiac Monitoring: None Code Status: Full Code Clinically Significant Risk Factors Disposition Plan Expected Discharge Date: Anticipating she will still be requiring inpatient care at least in the next 1-2 more days, need to be able to advance her diet so she can sustain herself at home. Needs to be using oral pain medicines that she can use at home. Also need a plan for oral steroids per GI Discussed with bedside nursing Philipp Bynum MD Hospitalist Service [facility] Securely message with [employer] (more info) Text page via [facility] Paging/Directory Interval History Patient has started to advance her diet. She still has ongoing pain but overall seems to be doing better. Has not had any bowel movements but has not been eating much yet. Has had minimal flatus. Physical Exam Vital Signs: Temp: 98.6 ??F (37 ??C) Temp src: Oral BP: (!) 148/85 Pulse: 73 Resp: 18 SpO2: 97 % [id number]: None (Room air) Weight: 152 lbs 12.46 oz Exam is really unchanged from yesterday GEN: Patient appears her stated age, sitting up in bed, does not appear appreciably ill, is frustrated that she still here HEENT; membranes are moist Lungs: equal chest expansion, clear to auscultation, no wheezes, no stridor, no crackles, good air movement Heart: normal rate, normal rhythm, no murmurs Abdomen: Little hypoactive bowel sounds, no significant tenderness, no rebound or guarding Extremities: no deformities, no edema moves all extremities Neuro; follow commands, alert and oriented x3, spontaneous speech, coherent, moves all extremities spontaneously, no focal deficits Data Imaging results reviewed over the past 24 hrs: No results found for this or any previous visit (from the past 24 hour(s)). * Philipp Bynum MD - 06/20/2023 1:04 PM CDT [facility] Medicine Progress Note - Hospitalist Service Date of Admission: 06/16/2023 Assessment & Plan Hortensia Buitrago is a 63 year old female admitted on 06/16/2023. She has a history of Crohn's diseasefor which she had ileocolic resection for refractory disease in March, Remicade as needed therapy. Surgery in March had several months of good symptom control without issue. Over the last 5 days has had persistent watery diarrhea, upwards of 10 stools each day, no blood in the stool but mucus present. [facility] consulted from the ED, recommended starting IV Solu-Medrol, formal GI consult placed patient underwent a colonoscopy 06/20/2023. Crohn's disease with acute flare/ S/p ileocolic resection 03/2023 Admitted in February of this year with SBO related to Crohn's disease, initially treated medically but eventually opted for ileocolic resection 03/21. Since then treated with steroid taper, started on Remicade and did not have any diarrhea or abdominal pain since discharge. About 5 days higher to admission she started having worsening abdominal pain and frequent watery diarrhea with some mucus present. No blood appreciated in the stool. CT this admission showed wall thickening and mucosal enhancement of the ascending and sigmoid colon suggesting of acute colitis, but no joanna complications with the anastomosis or evidence of obstruction. Systemic inflammatory markers were negative, fecal calprotectin ordered but not collected yet. She has been started on IV steroids since admission along with Remicade. Her symptoms are slowly improving. Her C. difficile was negative. She was placed on a fullliquid diet. She was seen by GI and underwent a colonoscopy 06/20/2023 which did not show any significant inflammation. Biopsies were taken. She was found to have internal hemorrhoids. We will place the patient back on full liquid diet today and hopefully can transition her to a soft diet as her symptoms improved. #Suspected urinary tract infection with isolated E. coli on earlier urine culture -Urinalysis sent earlier during admission process showed bacteriuria and some pyuria. Culture showed susceptible E. coli 50-100 K. Patient is allergic to penicillin and it was resistant to Macrobid. Patient was placed on a short course of Cipro which she will continue and finish. Chronic kidney disease, stage II Baseline creatinine appears to be 1-1.1. Creatinine on arrival 1.08. Will monitor with daily labs. Patient's creatinine now is 1 with a GFR of 63. Diet: Snacks/Supplements Adult: Other; Chocolate Ensure + 4 oz milk at 10 am + chocolate Ensure w/ ice cream at dinner; With Meals Full Liquid Diet DVT Prophylaxis: Pneumatic Compression Devices Uribe Catheter: Not present Lines: None Cardiac Monitoring: None Code Status: Full Code Clinically Significant Risk Factors Disposition Plan Expected Discharge Date: Anticipating she will still be requiring inpatient care at least in the next 1-2 more days, need to be able to advance her diet so she can sustain herself at home. Discussed with bedside nursing, social work, case management, also was informed of the results fromGI about her colonoscopy Philipp Bynum MD Hospitalist Service [facility] Securely message with [employer] (more info) Text page via [facility] Paging/Directory Interval History Patient is new to me. States that maybe her pains a little bit better but still having loose stools. She underwent no colonoscopy prep overnight and did fine. I saw the patient prior to colonoscopy but this note is written after it and she did fine with the procedure that did not show any significant inflammation. She had been tolerating her full liquid diet. She is passing gas. Denies any blood i n her stools. She states that the pain is little bit more tolerable today. She is feeling hungry and wants to be able to eat. Physical Exam Vital Signs: Temp: 98.4 ??F (36.9 ??C) Temp src: Oral BP: 128/84 Pulse: 76 Resp: 14 SpO2: 97 % O2 Device: None (Room air) Oxygen Delivery: 4 LPM Weight: 152 lbs 12.46 oz Exam is really unchanged from yesterday GEN: Patient appears her stated age, sitting up in bed, does not appear appreciably ill HEENT; membranes are moist Lungs: equal chest expansion, clear to auscultation, no wheezes, no stridor, no crackles, good air movement Heart: normal rate, normal rhythm, no murmurs Abdomen: normal bowel sounds, no significant tenderness, no rebound or guarding Extremities: no deformities, no edema moves all extremities Neuro; follow commands, alert and oriented x3, spontaneous speech, coherent, moves all extremities spontaneously, no focal deficits Data I have personally reviewed the following data over the past 24 hrs: 6.7 \ 12.5 / 224 141 104 9.2 / 110 (H) 3.8 28 1.00 (H) \ Imaging results reviewed over the past 24 hrs: No results found for this or any previous visit (from the past 24 hour(s)). * Betty Olivares APRN SENIOR FORMULATION SCIENTIST - 06/19/2023 11:17 AM CDT Images from the original note were not included. GASTROENTEROLOGY PROGRESS NOTE CC: Abdominal pain, diarrhea SUBJECTIVE: Not much improvement in abdominal pain. Tolerating full liquid OBJECTIVE: General Appearance: Not in distress BP (!) 141/72 (BP Location: Left arm) Pulse 95 Temp 98.5 ??F (36.9 ??C) (Oral) Resp 16 Wt 69.3 kg (152 lb 12.5 oz) SpO2 100% BMI 27.06 kg/m?? Temp (24hrs), Av.1 ??F (36.7 ??C), Min:97.6 ??F (36.4 ??C), Max:98.6 ??F (37 ??C) Patient Vitals for the past 72 hrs: Weight 06/19/23 0900 69.3 kg (152 lb 12.5 oz) Intake/Output Summary (Last 24 hours) at 06/18/2023 1028 Last data filed at 06/17/2023 1526 Gross per 24 hour Intake 1884 ml Output -- Net 1884 ml PHYSICAL EXAM General: alert, oriented, NAD SKIN: no suspicious lesions, rashes, jaundice, or spider angiomas EYES: No scleral icterus RESPIRATORY: Non labored breathing GASTROINTESTINAL: Active bowel sounds, abdomen soft and very tender on palpation. NEURO:Grossly WNL. Additional Comments: ROS, FH, SH: See initial GI consult for details. I have reviewed the patient's new clinical lab results: Recent Labs Lab Test 06/17/2371706/16/23173604/02/23621 WBC 4.0 5.7 7.3 HGB 12.4 13.9 8.6* MCV 86 86 91 PLT 188 209 339 Recent Labs Lab Test 06/17/2371706/16/23173604/02/23621 POTASSIUM 4.3 3.6 3.7 CHLORIDE 109* 103 110* CO2 BUN 6.4* 7.4* 13.4 ANIONGAP 10 13 9 Recent Labs Lab Test 06/16/23 1750 06/16/23 1737 03/31/23 1717 03/31/23 1608 03/19/23 1816 03/19/23 1530 ALBUMIN -- 4.7 -- 3.9 -- 4.3 BILITOTAL -- 0.4 -- 0.3 -- 0.5 ALT -- 15 -- 28 -- 17 AST -- 24 -- 29 -- 18 PROTEIN Negative -- Negative -- Negative -- LIPASE -- 27 -- 56 -- -- Imaging and procedures: CTAP 06/16 IMPRESSION: 1. Ileocolic anastomosis. Wall thickening and mucosal enhancement involving the ascending and sigmoid colon suggesting an acute colitis. No evidence for obstruction. 2. Fluid in the sigmoid colon well likely result in diarrhea. I personally reviewed the patient's new imaging results. Problem list pertaining to GI: Abdominal pain Diarrhea Crohn's disease S/p ileal resection Assessment: This is a 63 y-o female with a stricturing ileal disease, this was diagnosed in January 2023, underwent ileal resection due to ongoing symptoms, on remicade 5mg/kg every Q8 weeks, who presented to hospital for on evaluation of worsening abdominal pain, non bloody diarrhea. No fevers or chills or ill contact with anyone who was sick. CT showed wall thickening and mucosal enhancement involving the ascending and sigmoid colon suggesting an acute colitis. No evidence for obstruction. She had three small bowel movements yesterday. Non today. C-diff and enteric pathogen negative. Fecal calprotectin level within normal range Plan: - Continue clear liquid diet - Continue IV steroid - Remicade infusing - Pain medication and antiemetics as needed - Ambulate - Minimize narcotics as much as possible - Colonoscopy tomorrow I will discuss with Dr. Glass Time spent: 20 minutes, greater than 50% of the visit was spent in counseling/coordination of care. Betty Oliavres CNP [facility] ([facility]) [phone] * Valdez Gallardo MD - 06/19/2023 10:34 AM CDT [facility] Progress Note - Hospitalist Service Date of Admission: 06/16/2023 Assessment & Plan Hortensia Buitrago is a 63 year old female admitted on 06/16/2023. She has a history of Crohn's diseasefor which she had ileocolic resection for refractory disease in March, Remicade as needed therapy. Surgery in March had several months of good symptom control without issue. Over the last 5 days has had persistent watery diarrhea, upwards of 10 stools each day, no blood in the stool but mucus present. [facility] consulted from the ED, recommended starting IV Solu-Medrol, formal GI consult placed. Crohn's disease S/p ileocolic resection 03/2023 Admitted in February of this year with SBO related to Crohn's disease, initially treated medically but eventually opted for ileocolic resection 03/21. Since then treated with steroid taper, started on Remicade and did not have any diarrhea or abdominal pain since discharge. -About 5 days ago started having worsening abdominal pain and frequent watery diarrhea with some mucus present. No blood appreciated in the stool. CT this admission showed wall thickening and mucosalenhancement of the ascending and sigmoid colon suggesting of acute colitis, but no joanna complications with the anastomosis or evidence of obstruction. Systemic inflammatory markers were negative, fecal calprotectin ordered but not collected yet. -Started on IV steroids since admission -Tolerating liquid diet currently on full -Remain on IV methylprednisone care of GI service -Plans for Remicade infusion - Negative C. difficile study #Suspected urinary tract infection with isolated E. coli on earlier urine culture -Urinalysis sent earlier during admission process -Showed bacteriuria and some pyuria -Urine cultures grew E. Coli -Allergic to penicillin -We will cover with short course of oral Cipro at least the next 3 days Chronic kidney disease Baseline creatinine appears to be 1-1.1. Creatinine on arrival 1.08. Will monitor with daily labs. -Most recent kidney function normal at 0.9 Diet: Full Liquid Diet DVT Prophylaxis: Pneumatic Compression Devices Uribe Catheter: Not present Lines: None Cardiac Monitoring: None Code Status: Full Code Clinically Significant Risk Factors Disposition Plan Expected Discharge Date: Anticipating she will still be requiring inpatient care at least in the next 1-2 more days Valdez Gallardo MD, MD Hospitalist Service [facility] Securely message with [employer] (more info) Text page via [facility] Paging/Directory Interval History Continuing medicine service care today. Seen and examined. Chart reviewed. I met this very pleasantlady while she is sitting comfortably in hospital bed. Case discussed with nursing service. No significant issues reported overnight such as bloody stooling. No diarrhea. Passing flatus. Voiding freely. Some abdominal cramps earlier but no complaints of any uncontrolled pain. Tolerating liquid diet. Afebrile. Denies any urinary symptoms such as hematuria or hematuria or dysuria. Not requiring oxygen support, remained afebrile. Physical Exam Vital Signs: Temp: 98.1 ??F (36.7 ??C) Temp src: Oral BP: (!) 142/74 Pulse: 72 Resp: 16 SpO2: 97 % O2 Device: None (Room air) Weight: 152 lbs 12.46 oz HEENT; Atraumatic, normocephalic, pinkish conjuctiva, pupils bilateral reactive Skin: warm and moist, no rashes Lungs: equal chest expansion, clear to auscultation, no wheezes, no stridor, no crackles, Heart: normal rate, normal rhythm, no rubs or gallops. Abdomen: normal bowel sounds, no significant tenderness, no guarding, no peritoneal signs Extremities: no deformities, no edema Neuro; follow commands, alert and oriented x3, spontaneous speech, coherent, moves all extremities spontaneously Psych; no hallucination, euthymic mood, not agitated Medical Decision Making 45 MINUTES SPENT BY ME on the date of service doing chart review, history, exam, documentation & further activities per the note. MANAGEMENT DISCUSSED with the following over the past 24 hours: Yes NOTE(S)/MEDICAL RECORDS REVIEWED over the past 24 hours: Yes Data Imaging results reviewed over the past 24 hrs: No results found for this or any previous visit (from the past 24 hour(s)). * Jelani Sullivan, RD - 06/19/2023 7:56 AM CDT CLINICAL NUTRITION SERVICES - ASSESSMENT NOTE Recommendations Ordered by Registered Dietitian (RD): - Ordered chocolate Ensure Enlive at 10 am snack and chocolate Ensure milkshake with dinner - Encouraged po intake, emphasizing the importance of choosing options that don't exacerbate GI symptoms. Future/Additional Recommendations: check tolerance of oral nutrition supplements Malnutrition: Patient does not meet two of the above criteria necessary for diagnosing malnutritionbut is at risk for developing malnutrition REASON FOR ASSESSMENT Hortensia Buitrago is a 63 year old female seen by Registered Dietitian for Admission Nutrition Risk Screen PMHx: Crohn's disease for which she had ileocolic resection for refractory disease in March, Remicade as needed therapy. Surgery in March had several months of good symptom control without issue. Over the last 5 days has had persistent watery diarrhea, upwards of 10 stools each day, no blood in the stool but mucus presen. Also found to have a UTI and CKD. NUTRITION HISTORY - Information obtained from chart review and pt at bedside, who was very polite and engaging - Patient follows a low fiber diet at home/knows what foods do/don't cause GI distress. - Typical food/fluid intake is toast and cream of wheat or bananas breakfast, diced chicken salad or a grilled chicken sandwich, and dinner is a hamburger or steak, if cooked well done. Pt main source of protein is chicken. - Diet history pt endorsed the poor appetite, stating this has been going on for years and didn't even increase when on Prednisone. Hortensia said the diarrhea issues have been going on for much of herlife, while the Crohn's Dx is relatively new, and she thinks her attenuated appetite is compensatory to avoid GI distress/diarrhea. Hortensia thought her UBW was 146-151 or 152 lb. Bedside RN took a bed weight during interview, which was 69.3 kg (152.5 lb). - Supplements - Hortensia drinks Ensure at times at home, and loves chocolate in general. She was eager to receive a chocolate Ensure Enlive @ 10 am snack and likes to mix that with milk, to drink in two sittings. When told about the Ensure milkshake, pt was eager to have that with dinner. Hortensia has tried the Gelatein and doesn't like these. CURRENT NUTRITION ORDERS Diet Order: Full liquid Current Intake/Tolerance: No BM recorded so far this admit (x3 BM per GI note 06/18). No po intake on 06/17 and 50% x1 meal 06/18. NUTRITION FOCUSED PHYSICAL ASSESSMENT FOR DIAGNOSING MALNUTRITION) Yes Observed: Muscle wasting (refer to documentation in Malnutrition section) Obtained from Chart/Interdisciplinary Team: Per MD and H&P notes, - I met this very pleasant lady while she is sitting comfortably in hospital bed. She mentioned that she had no issues with tolerance of her liquid diet. No nausea or vomiting. Had no bowel movement this morning. Appears to be in better spirits. - Over the last 5 days has had persistent watery diarrhea, upwards of 10 stools each day, no bloodin the stool but mucus present. ANTHROPOMETRICS Height: 5' 3 Weight: 67.6 kg (03/31/2023) Weight Status: Overweight BMI 25-29.9 IBW: 115 lb (52.3 kg) % IBW: 130% Weight History: wt is fluctuating Wt Readings from Last 10 Encounters: 06/19/23 69.3 kg (152 lb 12.5 oz) 03/31/23 67.6 kg (149 lb) 03/25/23 70.8 kg (156 lb 1.6 oz) 02/21/23 64.7 kg (142 lb 11.2 oz) LABS BUN 6.4 (L), BGM 107-123 (H) MEDICATIONS Medications reviewed ASSESSED NUTRITION NEEDS PER APPROVED PRACTICE GUIDELINES: Dosing Weight 56.1 kg Adjusted BW Estimated Energy Needs: 4618-7919 kcals (25-30 Kcal/Kg) Justification: maintenance Estimated Protein Needs: 56-67 grams protein (1-1.2 g pro/Kg) Justification: maintenance Estimated Fluid Needs: 4308-2751 mL (1 mL/Kcal) Justification: maintenance MALNUTRITION: % Weight Loss: Weight loss does not meet criteria for malnutrition % Intake: Decreased intake does not meet criteria for malnutrition Subcutaneous Fat Loss: None observed Muscle Loss: Temporal region mild depletion, Upper Arm region mild depletion, and Dorsal hand region mild depletion Fluid Retention: None noted Malnutrition Diagnosis: Patient does not meet two of the above criteria necessary for diagnosing malnutrition but is at risk for developing malnutrition NUTRITION DIAGNOSIS: Inadequate oral intake related to Altered GI function as evidenced by poor appetite, sub-optimal pointake and mild muscle wasting. NUTRITION INTERVENTIONS Recommendations / Nutrition Prescription - Ordered chocolate Ensure Enlive at 10 am snack and chocolate Ensure milkshake with dinner - Encouraged po intake, emphasizing the importance of choosing options that don't exacerbate GI symptoms. Implementation Nutrition education: Per Provider order if indicated General/healthful diet and Medical Food Supplement, as above Nutrition Goals Patient to consume 75-100% of nutritionally adequate meal trays TID, or the equivalent with supplements/snacks. MONITORING AND EVALUATION: Progress towards goals will be monitored and evaluated per protocol and Practice Guidelines Jelani Sullivan RD Associated attestation - Yulissa Peguero RD - 06/19/2023 11:24 AM CDT Co-signing chart note for registration and licensure eligible staff. Yulissa Peguero RDN, LD Clinical Dietitian 3rd floor/ICU: [phone] All other floors: [phone] Weekend/holiday: [phone] Office: [phone] * Valdez Gallardo MD - 06/18/2023 11:09 AM CDT [facility] Progress Note - Hospitalist Service Date of Admission: 06/16/2023 Assessment & Plan Hortensia Buitrago is a 63 year old female admitted on 06/16/2023. She has a history of Crohn's diseasefor which she had ileocolic resection for refractory disease in March, Remicade as needed therapy. Surgery in March had several months of good symptom control without issue. Over the last 5 days has had persistent watery diarrhea, upwards of 10 stools each day, no blood in the stool but mucus present. [facility] consulted from the ED, recommended starting IV Solu-Medrol, formal GI consult placed. Crohn's disease S/p ileocolic resection 03/2023 Admitted in February of this year with SBO related to Crohn's disease, initially treated medically but eventually opted for ileocolic resection 03/21. Since then treated with steroid taper, started on Remicade and did not have any diarrhea or abdominal pain since discharge. -About 5 days ago started having worsening abdominal pain and frequent watery diarrhea with some mucus present. No blood appreciated in the stool. CT this admission showed wall thickening and mucosalenhancement of the ascending and sigmoid colon suggesting of acute colitis, but no joanna complications with the anastomosis or evidence of obstruction. Systemic inflammatory markers were negative, fecal calprotectin ordered but not collected yet. -Started on IV steroids since admission -Tolerating clear liquid diet. Ms. Buitrago is asking for advancement to at least full liquids as she was able to tolerate liquids earlier with no further recurrent issues of worsening abdominal symptomatology - GI consulted, appreciate assistance - IV methylprednisolone 20 mg every 8 hours -Plans for Remicade infusion - Negative C. difficile study #Suspected urinary tract infection with isolated E. coli on earlier urine culture -Urinalysis sent earlier during admission process -Showed bacteriuria and some pyuria -Urine cultures grew E. Coli -Allergic to penicillin -We will cover with short course of oral Cipro at least the next 3 days Chronic kidney disease Baseline creatinine appears to be 1-1.1. Creatinine on arrival 1.08. Will monitor with daily labs. -Most recent kidney function normal at 0.9 Diet: Full Liquid Diet DVT Prophylaxis: Pneumatic Compression Devices Uribe Catheter: Not present Lines: None Cardiac Monitoring: None Code Status: Full Code Clinically Significant Risk Factors Disposition Plan Expected Discharge Date: Anticipating she will still be requiring inpatient care at least in the next 2 more days Valdez Gallardo MD, MD Hospitalist Service [facility] Secure[employer] message with [employer] (more info) Text page via [facility] Paging/Directory Interval History Continuing medicine service care today. Seen and examined. Chart reviewed. I met this very pleasantlady while she is sitting comfortably in hospital bed. She mentioned that she had no issues with tolerance of her liquid diet. No nausea or vomiting. Had no bowel movement this morning. No reported bleeding tendencies either. Remained afebrile. Not requiring oxygen support. Appears to be in better spirits. Denies any abdominal cramping, shortness of breath. Not requiring oxygen support. No mentalstatus changes. Physical Exam Vital Signs: Temp: 97.6 ??F (36.4 ??C) Temp src: Oral BP: 114/66 Pulse: 72 Resp: 18 SpO2: 95 % O2 Device: None (Room air) Weight: 0 lbs 0 oz HEENT; Atraumatic, normocephalic, pinkish conjuctiva, pupils bilateral reactive Skin: warm and moist, no rashes Lungs: equal chest expansion, clear to auscultation, no wheezes, no stridor, no crackles, Heart: normal rate, normal rhythm, no rubs or gallops. Abdomen: normal bowel sounds, no significant tenderness, no guarding, no peritoneal signs Extremities: no deformities, no edema Neuro; follow commands, alert and oriented x3, spontaneous speech, coherent, moves all extremities spontaneously Psych; no hallucination, euthymic mood, not agitated Medical Decision Making 40 MINUTES SPENT BY ME on the date of service doing chart review, history, exam, documentation & further activities per the note. MANAGEMENT DISCUSSED with the following over the past 24 hours: Yes NOTE(S)/MEDICAL RECORDS REVIEWED over the past 24 hours: Y Data Imaging results reviewed over the past 24 hrs: No results found for this or any previous visit (from the past 24 hour(s)). * Betty Olivares APRN SENIOR FORMULATION SCIENTIST - 06/18/2023 10:28 AM CDT Images from the original note were not included. GASTROENTEROLOGY PROGRESS NOTE CC: Abdominal pain, diarrhea SUBJECTIVE: She reports ongoing right sided abdominal pain. This is intermittent and severe in intensity. OBJECTIVE: General Appearance: Not in distress BP 114/66 Pulse 72 Temp 97.6 ??F (36.4 ??C) (Oral) Resp 18 SpO2 95% Temp (24hrs), Av.1 ??F (36.7 ??C), Min:97.6 ??F (36.4 ??C), Max:98.6 ??F (37 ??C) No data found. Intake/Output Summary (Last 24 hours) at 06/18/2023 1028 Last data filed at 06/17/2023 1526 Gross per 24 hour Intake 1884 ml Output -- Net 1884 ml PHYSICAL EXAM General: alert, oriented, NAD SKIN: no suspicious lesions, rashes, jaundice, or spider angiomas EYES: No scleral icterus RESPIRATORY: Non labored breathing GASTROINTESTINAL: Active bowel sounds, abdomen soft and very tender on palpation. NEURO:Grossly WNL. Additional Comments: ROS, FH, SH: See initial GI consult for details. I have reviewed the patient's new clinical lab results: Recent Labs Lab Test 06/17/23 0706/16/23173604/02/23 0622 WBC 4.0 5.7 7.3 HGB 12.4 13.9 8.6* MCV 86 86 91 PLT 188 209 339 Recent Labs Lab Test 06/17/23 0718 06/16/23173604/02/23 0622 POTASSIUM 4.3 3.6 3.7 CHLORIDE 109* 103 110* CO2 23 26 BUN 6.4* 7.4* 13.4 ANIONGAP 10 13 9 Recent Labs Lab Test 06/16/23 1750 06/16/23 1737 03/31/23 1717 03/31/23 1608 03/19/23 1816 03/19/23 1530 ALBUMIN -- 4.7 -- 3.9 -- 4.3 BILITOTAL -- 0.4 -- 0.3 -- 0.5 ALT -- 15 -- 28 -- 17 AST -- 24 -- 29 -- 18 PROTEIN Negative -- Negative -- Negative -- LIPASE -- 27 -- 56 -- -- Imaging and procedures: CTAP 06/16 IMPRESSION: 1. Ileocolic anastomosis. Wall thickening and mucosal enhancement involving the ascending and sigmoid colon suggesting an acute colitis. No evidence for obstruction. 2. Fluid in the sigmoid colon well likely result in diarrhea. I personally reviewed the patient's new imaging results. Problem list pertaining to GI: Abdominal pain Diarrhea Crohn's disease S/p ileal resection Assessment: This is a 63 y-o female with a stricturing ileal disease, this was diagnosed in January 2023, underwent ileal resection due to ongoing symptoms, on remicade 5mg/kg every Q8 weeks, who presented to hospital for on evaluation of worsening abdominal pain, non bloody diarrhea. No fevers or chills or ill contact with anyone who was sick. CT showed wall thickening and mucosal enhancement involving the ascending and sigmoid colon suggesting an acute colitis. No evidence for obstruction. She had three small bowel movements yesterday. Non today. C-diff and enteric pathogen negative. Fecal calprotectin is pending. Plan: - Continue clear liquid diet - Continue IV steroid - Remicade tomorrow - Pain medication and antiemetics as needed - Ambulate - Minimize narcotics as much as possible - GI will follow I will discuss with Dr. Glass Time spent: 20 minutes, greater than 50% of the visit was spent in counseling/coordination of care. Betty Olivares CNP [facility] ([facility]) [phone] * Valdez Gallardo MD - 06/18/2023 7:34 AM CDT Urine culture grew E coli. UA earlier showed some bacteriuria and pyuria Allergic to PCN Added short course of Cipro C diff studies earlier negative * Jana Haque RN - 06/17/2023 6:21 PM CDT Pt admitted from ED today with Chron's and r/o C.diff. She is A/O x4, up independent in the room. Had BM x1 which was watery. Cidff was negative, enteric panel pending. Continues to have abd pain which she has received IV dilaudid x2, Robaxin x2, and tylenol. She is also using a heating pad. BS faint and not passing flatus. On IV Solumedrol. Clear liquid diet, tolerating. No N/V. GI following. * Valdez Gallardo MD - 06/17/2023 10:16 AM CDT [facility] Progress Note - Hospitalist Service Date of Admission: 06/16/2023 Assessment & Plan Hortensia Buitrago is a 63 year old female admitted on 06/16/2023. She has a history of Crohn's diseasefor which she had ileocolic resection for refractory disease in March, Remicade as needed therapy. Surgery in March had several months of good symptom control without issue. Over the last 5 days has had persistent watery diarrhea, upwards of 10 stools each day, no blood in the stool but mucus present. [facility] consulted from the ED, recommended starting IV Solu-Medrol, formal GI consult placed. Crohn's disease S/p ileocolic resection 03/2023 Admitted in February of this year with SBO related to Crohn's disease, initially treated medically but eventually opted for ileocolic resection 03/21. Since then treated with steroid taper, started on Remicade and did not have any diarrhea or abdominal pain since discharge. -About 5 days ago started having worsening abdominal pain and frequent watery diarrhea with some mucus present. No blood appreciated in the stool. CT this admission showed wall thickening and mucosalenhancement of the ascending and sigmoid colon suggesting of acute colitis, but no joanna complications with the anastomosis or evidence of obstruction. Systemic inflammatory markers were negative, fecal calprotectin ordered but not collected yet. -Started on IV steroids since admission -Currently n.p.o. since midnight. Will await further instructions from GI service - GI consulted, appreciate assistance - IV methylprednisolone 20 mg every 8 hours - Follow-up stool studies, fecal calprotectin Chronic kidney disease Baseline creatinine appears to be 1-1.1. Creatinine on arrival 1.08. Will monitor with daily labs. -Most recent kidney function normal at 0.9 Diet: Clear Liquid Diet DVT Prophylaxis: Pneumatic Compression Devices Uribe Catheter: Not present Lines: None Cardiac Monitoring: None Code Status: Full Code Clinically Significant Risk Factors Present on Admission Disposition Plan Expected Discharge Date: Anticipating she will still be requiring inpatient care at least in the next 2 more days Valdez Gallardo MD, MD Hospitalist Service [facility] Securely message with Vocera (more info) Text page via [facility] Paging/Directory Interval History I assume medicine service care today. Seen and examined. Chart reviewed. I met this very pleasant lady while she is lying comfortably in bed and was able to tolerate her liquids. Earlier this morning patient is complaining of some intermittent nausea and still with intermittentabdominal discomfort. No diarrhea. No reported bleeding tendencies either. Currently not requiring oxygen support. Afebrile. No reports of being agitated or combative overnight. Physical Exam Vital Signs: Temp: 97.9 ??F (36.6 ??C) Temp src: Oral BP: 132/83 Pulse: 81 Resp: 18 SpO2: 98 % O2 Device: None (Room air) Weight: 0 lbs 0 oz HEENT; Atraumatic, normocephalic, pinkish conjuctiva, pupils bilateral reactive Skin: warm and moist, no rashes Lungs: equal chest expansion, clear to auscultation, no wheezes, no stridor, no crackles, Heart: normal rate, normal rhythm, no rubs or gallops. Abdomen: normal bowel sounds, some diffuse tenderness, no guarding, no peritoneal signs Extremities: no deformities, no edema Neuro; follow commands, alert and oriented x3, spontaneous speech, coherent, moves all extremities spontaneously Psych; no hallucination, euthymic mood, not agitated Medical Decision Making 50 MINUTES SPENT BY ME on the date of service doing chart review, history, exam, documentation & further activities per the note. MANAGEMENT DISCUSSED with the following over the past 24 hours: Yes NOTE(S)/MEDICAL RECORDS REVIEWED over the past 24 hours: Yes Data I have personally reviewed the following data over the past 24 hrs: 4.0 \ 12.4 / 188 141 109 (H) 6.4 (L) / 123 (H) 4.3 22 0.91 \ ALT: 15 AST: 24 AP: 87 TBILI: 0.4 ALB: 4.7 TOT PROTEIN: 7.0 LIPASE: 27 Procal: N/A CRP: <3.00 Lactic Acid: N/A Imaging results reviewed over the past 24 hrs: Recent Results (from the past 24 hour(s)) CT Abdomen Pelvis w Contrast Narrative EXAM: CT ABDOMEN PELVIS W CONTRAST LOCATION: [facility] DATE: 06/16/2023 INDICATION: hx Crohn's, RUQ epigastric pain COMPARISON: CT abdomen and pelvis 03/31/2023 TECHNIQUE: CT scan of the abdomen and pelvis was performed following injection of IV contrast. Multiplanar reformats were obtained. Dose reduction techniques were used. CONTRAST: 75mL Isovue 370 FINDINGS: LOWER CHEST: Normal. HEPATOBILIARY: The liver is unremarkable. Cholecystectomy. PANCREAS: Normal. SPLEEN: Small hypodense splenic lesion is unchanged. ADRENAL GLANDS: Normal. KIDNEYS/BLADDER: Right nephrectomy. BOWEL: Ileocolic resection. Mild wall thickening and mucosal enhancement involving the residual ascending colon and sigmoid colon. Fluid within the sigmoid colon. No evidence for obstruction. LYMPH NODES: Normal. VASCULATURE: Unremarkable. PELVIC ORGANS: Hysterectomy. No free pelvic fluid. MUSCULOSKELETAL: Advanced degenerative disc disease L5 level. Impression IMPRESSION: 1. Ileocolic anastomosis. Wall thickening and mucosal enhancement involving the ascending and sigmoid colon suggesting an acute colitis. No evidence for obstruction. 2. Fluid in the sigmoid colon well likely result in diarrhea. * Shreya Mace RN - 06/17/2023 9:47 AM CDT [facility] ED Boarding Nurse Handoff Addendum Report: Date/time: 06/17/2023, 9:47 AM Activity Level: standby Fall Risk: Yes: nonskid shoes/slippers when out of bed, arm band in place, and patient and family education Active Infusions: NS 100ml/hr Current Meds Due: NA Current care needs: Collect stool specimen Oxygen requirements (liters/min and/or FiO2): NA Respiratory status: Room air Vital signs (within last 30 minutes): Vitals: 06/16/23 1720 06/16/23 2300 06/16/23 2346 06/17/23 0742 BP: (!) 134/96 135/76 (!) 128/97 99/70 BP Location: Right arm Pulse: 101 80 80 Resp: 16 18 Temp: 97.8 ??F (36.6 ??C) 97.9 ??F (36.6 ??C) 97.9 ??F (36.6 ??C) TempSrc: Temporal Oral Oral SpO2: 100% 97% 100% Focused assessment within last 30 minutes: A&Ox4, SBA. Pain RUQ, RLQ abdominal and epigastric. Had dilaudid 0624, can have next at 1024. Tylenol & zofran given 0930. May advance to CL diet per MD. Has not been able to produce BM, feels she may have better luck after drinking some coffee. ED Boarding Nurse name: Shreya Mace RN documented in this encounter H&P Notes * Aldo Flores MD - 06/16/2023 10:57 PM CDT [facility] History and Physical - Hospitalist Service Date of Admission: 06/16/2023 Assessment & Plan Hortensia Buitrago is a 63 year old female admitted on 06/16/2023. She has a history of Crohn's diseasefor which she had ileocolic resection for refractory disease in March, Remicade as needed therapy. Surgery in March had several months of good symptom control without issue. Over the last 5 days has had persistent watery diarrhea, upwards of 10 stools each day, no blood in the stool but mucus present. [facility] consulted from the ED, recommended starting IV Solu-Medrol, formal GI consult placed. Crohn's disease S/p ileocolic resection 03/2023 Admitted in February of this year with SBO related to Crohn's disease, initially treated medically but eventually opted for ileocolic resection 03/21. Since then treated with steroid taper, started on Remicade and did not have any diarrhea or abdominal pain since discharge. About 5 days ago started having worsening abdominal pain and frequent watery diarrhea with some mucus present. No blood appreciated in the stool. CT this admission showed wall thickening and mucosal enhancement of the ascending and sigmoid colon suggesting of acute colitis, but no joanna complications with the anastomosis or evidence of obstruction. Systemic inflammatory markers were negative, fecal calprotectin ordered but not collected yet. ED physician spoke with [facility], recommended starting IV methylprednisolone every 8 hours. Formal consult to [facility] placed. We will keep n.p.o. at midnight. - GI consulted, appreciate assistance - IV methylprednisolone 20 mg every 8 hours - N.p.o. at midnight - Follow-up stool studies, fecal calprotectin Chronic kidney disease Baseline creatinine appears to be 1-1.1. Creatinine on arrival 1.08. Will monitor with daily labs. Diet: Regular, n.p.o. at midnight DVT Prophylaxis: Pneumatic Compression Devices Uribe Catheter: Not present Lines: None Cardiac Monitoring: None Code Status: Full code Clinically Significant Risk Factors Present on Admission Disposition Plan Expected Discharge Date: 06/18/2023 Aldo Flores MD Hospitalist Service [facility] Securely message with HeatGenie (more info) Text page via [facility] Paging/Directory Chief Complaint Abdominal pain, diarrhea History is obtained from the patient History of Present Illness Hortensia Buitrago is a 63 year old female with history of Crohn's disease on Remicade for maintenancetherapy, ileocolic resection 03/21/2023 for refractory Crohn's disease who presented to the ED with 5 days of worsening abdominal discomfort and diarrhea. Following her discharge from the hospital in March, patient had good control of her symptoms with no abdominal pain, soft stools but no significant diarrhea since then. Over the last 4 days abdominal discomfort in the right lower and right upper quadrants has gotten worse, diarrhea becoming more frequent with 8-10 stools per day. Diarrhea has been watery brown, occasional mucus present, but no blood in the diarrhea. Denies any fevers, chills,night sweats. In the ED CT of the abdomen was obtained which showed no significant changes to the stenosis from prior surgery, but thickening of the ascending and sigmoid colon consistent with acute colitis. Systemic inflammatory markers negative. C. difficile, enteric panel, and fecal calprotectin ordered. [facility] consulted from the ED, recommended starting IV methylprednisolone and admitting for pain control and further work-up of acute colitis. Past Medical History No past medical history on file. Past Surgical History Past Surgical History: Procedure Laterality Date LAPAROSCOPIC RESECTION ILEOCECAL N/A 03/21/2023 Procedure: Laparoscopic assisted ileocolic resection; Surgeon: Madison Iverson MD; Location: OR Prior to Admission Medications Prior to Admission Medications Prescriptions Last Dose Informant Patient Reported? Taking? acetaminophen (TYLENOL) 500 MG tablet prn No Yes Sig: Take 1-2 tablets (500-1,000 mg) by mouth every 6 hours as needed for mild pain acetaminophen (TYLENOL) 650 MG CR tablet 06/15/2023 Yes Yes Sig: Take 650 mg by mouth At Bedtime albuterol (PROAIR HFA/PROVENTIL HFA/VENTOLIN HFA) 108 (90 Base) MCG/ACT inhaler prn Yes Yes Sig: Inhale 2 puffs into the lungs every 6 hours as needed for shortness of breath, wheezing or cough bisacodyl (DULCOLAX) 10 MG suppository prn No Yes Sig: Place 1 suppository (10 mg) rectally 2 times daily as needed for constipation cyanocobalamin (CYANOCOBALAMIN) 1000 MCG/ML injection 05/16/2023 Yes Yes Sig: Inject 1,000 mcg as directed every 30 days diphenhydrAMINE (BENADRYL) 25 MG capsule prn No Yes Sig: Take 1 capsule (25 mg) by mouth every 6 hours as needed for itching or allergies esomeprazole (NEXIUM) [address] capsule 06/16/2023 at am Yes Yes Sig: Take 40 mg by mouth 2 times daily (before meals) Take 30-60 minutes before eating. famotidine (PEPCID) 40 MG tablet 06/15/2023 Yes Yes Sig: Take 40 mg by mouth At Bedtime methocarbamol (ROBAXIN) 500 MG tablet 06/16/2023 at am No Yes Sig: Take 1 tablet (500 mg) by mouth 4 times daily as needed for muscle spasms montelukast (SINGULAIR) 10 MG tablet 06/15/2023 Yes Yes Sig: Take 10 mg by mouth At Bedtime nortriptyline (PAMELOR) 25 MG capsule 06/15/2023 Yes Yes Sig: Take 25 mg by mouth At Bedtime ondansetron (ZOFRAN ODT) 4 MG ODT tab No Yes Sig: Take 1 tablet (4 mg) by mouth every 8 hours as needed for nausea traZODone (DESYREL) 100 MG tablet 06/15/2023 Yes Yes Sig: Take 200 mg by mouth At Bedtime Facility-Administered Medications: None Review of Systems The 10 point Review of Systems is negative other than noted in the HPI or here. Physical Exam Vital Signs: Temp: 97.8 ??F (36.6 ??C) Temp src: Temporal BP: (!) 134/96 Pulse: 101 Resp: 16 SpO2: 100 % O2 Device: None (Room air) Weight: 0 lbs 0 oz Constitutional: awake, alert, cooperative, no apparent distress, and appears stated age Respiratory: No increased work of breathing, good air exchange, clear to auscultation bilaterally, no crackles or wheezing Cardiovascular: Normal apical impulse, regular rate and rhythm, normal S1 and S2, no S3 or S4, and no murmur noted GI: Soft, quite tender to palpation in the left lower, right lower, and right upper quadrants. No guarding, rigidity, or rebound tenderness present Musculoskeletal: There is no redness, warmth, or swelling of the joints. Full range of motion noted. Motor strength is 5 out of 5 all extremities bilaterally. Tone is normal. Neurologic: Awake alert and oriented x3, mentating appropriately, answering questions Medical Decision Making 60 MINUTES SPENT BY ME on the date of service doing chart review, history, exam, documentation & further activities per the note. Data I have personally reviewed the following data over the past 24 hrs: 5.7 \ 13.9 / 209 139 103 7.4 (L) / 95 3.6 23 1.08 (H) \ ALT: 15 AST: 24 AP: 87 TBILI: 0.4 ALB: 4.7 TOT PROTEIN: 7.0 LIPASE: 27 Procal: N/A CRP: <3.00 Lactic Acid: N/A Imaging results reviewed over the past 24 hrs: Recent Results (from the past 24 hour(s)) CT Abdomen Pelvis w Contrast Narrative EXAM: CT ABDOMEN PELVIS W CONTRAST LOCATION: [facility] DATE: 06/16/2023 INDICATION: hx Crohn's, RUQ epigastric pain COMPARISON: CT abdomen and pelvis 03/31/2023 TECHNIQUE: CT scan of the abdomen and pelvis was performed following injection of IV contrast. Multiplanar reformats were obtained. Dose reduction techniques were used. CONTRAST: 75mL Isovue 370 FINDINGS: LOWER CHEST: Normal. HEPATOBILIARY: The liver is unremarkable. Cholecystectomy. PANCREAS: Normal. SPLEEN: Small hypodense splenic lesion is unchanged. ADRENAL GLANDS: Normal. KIDNEYS/BLADDER: Right nephrectomy. BOWEL: Ileocolic resection. Mild wall thickening and mucosal enhancement involving the residual ascending colon and sigmoid colon. Fluid within the sigmoid colon. No evidence for obstruction. LYMPH NODES: Normal. VASCULATURE: Unremarkable. PELVIC ORGANS: Hysterectomy. No free pelvic fluid. MUSCULOSKELETAL: Advanced degenerative disc disease L5 level. Impression IMPRESSION: 1. Ileocolic anastomosis. Wall thickening and mucosal enhancement involving the ascending and sigmoid colon suggesting an acute colitis. No evidence for obstruction. 2. Fluid in the sigmoid colon well likely result in diarrhea. documented in this encounter Consult Notes * Betty Olivares APRN SENIOR FORMULATION SCIENTIST - 06/17/2023 8:16 AM CDTAssociated Order(s): GASTROENTEROLOGY IP CONSULT Images from the original note were not included. GASTROENTEROLOGY CONSULTATION Hortensia Buitrago [address] [place] [id number] 63 year old female Admission Date/Time: 06/16/2023 Primary Care Provider: Andrwe Israel We were asked to see the patient in consultation by Dr. Flores for evaluation of Colitis in the setting of Crohn's . CC: Abdominal pain and diarrhea HPI: Hortensia Buitrago is a 63 year old female with a history of ileal stricturing crohn's in Jan, 2023 . She was admitted to the hospital in February and was treated with IV steroids without improvement prompting. She was treated with Remicade on February 23. She had second induction dose on March 04 throughour office. Unfortunately, she continued to pain and developed bloody diarrhea prompting her to be rehospitalized in March. CTAP showed no significant change in 3 segments of TI with wall thickening and mucosal hyperenhancement with associated luminal narrowing, no abscess or fistula. This led to laparoscopic ileocecal resection with Dr. Iverson (colorectal surgery) on March 21. Pathology showed active, chronic ileitis with colon margin with tubular adenoma. The ileum was markedly strictured, narrowing the lumen to approximately 1 cm in diameter. No evidence of malignancy. Today, patient reports that she had multiple loose, watery, non bloody stools since last week. This was associated with sever right sided abdominal pain and nausea. No fevers or chills. No contact with anyone who was sick with GI symptoms. No stools today. She is on remicade at this time. Next dose is scheduled on this . CTAP on this admission showed Ileocolic anastomosis. Wall thickening and mucosal enhancement involving the ascending and sigmoid colon suggesting an acute colitis. No evidence for obstruction. Fluid in the sigmoid colon well likely result in diarrhea. CBC, CMP, and CRP is unremarkable. EGD 12/13/2022, endoscopically normal. Gastric biopsies, chronic gastritis, but negative H. pylori.Esophageal and duodenal biopsies were normal. Colonoscopy 01/28/2023: Narrowing, ulcerations, scarring in the terminal ileum. Biopsies revealed nonspecific mildly active chronic ileitis without specific features. Random right and left colon biopsies were normal. She had a 4 mm cecal with SSA. PAST MEDICAL HISTORY: Patient Active Problem List Diagnosis Date Noted Acute colitis 06/16/2023 Priority: Medium Dizziness 03/31/2023 Priority: Medium Abnormal stools 03/31/2023 Priority: Medium History of colon surgery 03/31/2023 Priority: Medium Abdominal pain, unspecified abdominal location 03/31/2023 Priority: Medium Intractable abdominal pain 03/19/2023 Priority: Medium Crohn's disease of colon with complication (H) 03/19/2023 Priority: Medium RLQ abdominal pain 02/10/2023 Priority: Medium ROS: A comprehensive ten point review of systems was negative aside from those in mentioned in the HPI. MEDICATIONS: Prior to Admission medications Medication Sig Start Date End Date Taking? Authorizing Provider acetaminophen (TYLENOL) 500 MG tablet Take 1-2 tablets (500-1,000 mg) by mouth every 6 hours as needed for mild pain 04/02/23 Yes Jackie Hooks PA-C acetaminophen (TYLENOL) 650 MG CR tablet Take 650 mg by mouth At Bedtime Yes Unknown, Entered By History albuterol (PROAIR HFA/PROVENTIL HFA/VENTOLIN HFA) 108 (90 Base) MCG/ACT inhaler Inhale 2 puffs intothe lungs every 6 hours as needed for shortness of breath, wheezing or cough Yes Unknown, Entered By History bisacodyl (DULCOLAX) [address] 1 suppository (10 mg) rectally 2 times daily as neededfor constipation 02/23/23 Yes Eva Hammond DO cyanocobalamin (CYANOCOBALAMIN) 1000 MCG/ML injection Inject 1,000 mcg as directed every 30 days Yes Unknown, Entered By History diphenhydrAMINE (BENADRYL) 25 MG capsule Take 1 capsule (25 mg) by mouth every 6 hours as needed for itching or allergies 05/15/23 Yes Isreal Stark MD esomeprazole (NEXIUM) [address] capsule Take 40 mg by mouth 2 times daily (before meals) Take 30-60 minutes before eating. Yes Unknown, Entered By History famotidine (PEPCID) 40 MG tablet Take 40 mg by mouth At Bedtime Yes Unknown, Entered By History methocarbamol (ROBAXIN) 500 MG tablet Take 1 tablet (500 mg) by mouth 4 times daily as needed for muscle spasms 02/23/23 Yes Eva Hammond DO montelukast (SINGULAIR) 10 MG tablet Take 10 mg by mouth At Bedtime Yes Unknown, Entered By History nortriptyline (PAMELOR) 25 MG capsule Take 25 mg by mouth At Bedtime Yes Unknown, Entered By History ondansetron (ZOFRAN ODT) 4 MG ODT tab Take 1 tablet (4 mg) by mouth every 8 hours as needed for nausea 02/23/23 Yes Eva Hammond DO traZODone (DESYREL) 100 MG tablet Take 200 mg by mouth At Bedtime Yes Unknown, Entered By History ALLERGIES: Allergies Allergen Reactions Latex Hives Oxycodone Anaphylaxis, Hives and Swelling Throat swelling, per pt Penicillin G Anaphylaxis Sumatriptan Palpitations Aspirin Nausea and Vomiting Demerol Hcl [Meperidine] Nausea and Vomiting N/V Percocet [Oxycodone-Acetaminophen] Nausea and Vomiting N/V Codeine Nausea and Vomiting Mold SOCIAL HISTORY: FAMILY HISTORY: No family history on file. PHYSICAL EXAM: BP 99/70 (BP Location: Right arm) Pulse 80 Temp 97.9 ??F (36.6 ??C) (Oral) Resp 18 SpO2 100% General: alert, oriented, NAD SKIN: no suspicious lesions, rashes, jaundice, or spider angiomas EYES: No scleral icterus RESPIRATORY: Non labored breathing, Lungs clear CARDIOVASCULAR: RRR. No murmurs, clicks gallops or rub GASTROINTESTINAL: Active bowel sounds, abdomen soft and right upper and lower abdominal tenderness on palpation. JOINT/EXTREMITIES: extremities normal- no gross deformities noted. No edema. NEURO: Grossly WNL. PSYCH: no abnormal anxiety/depression LABS: I reviewed the patient's new clinical lab test results. Recent Labs Lab Test 06/17/2371706/16/23173604/02/23 06 WBC 4.0 5.7 7.3 HGB 12.4 13.9 8.6* MCV 86 86 91 PLT 188 209 339 Recent Labs Lab Test 06/17/2371706/16/23173604/02/23 0622 NA 141 139 145 POTASSIUM 4.3 3.6 3.7 CHLORIDE 109* 103 110* CO2 23 26 BUN 6.4* 7.4* 13.4 ANIONGAP 10 13 9 DAJA 9.2 9.4 8.8 Recent Labs Lab Test 06/16/23 1750 06/16/23 17303/31/23 1717 03/31/23 1608 03/19/23 1816 03/19/23 1530 ALBUMIN -- 4.7 -- 3.9 -- 4.3 BILITOTAL -- 0.4 -- 0.3 -- 0.5 ALT -- 15 -- 28 -- 17 AST -- 24 -- 29 -- 18 ALKPHOS -- 87 -- 72 -- 66 PROTEIN Negative -- Negative -- Negative -- LIPASE -- 27 -- 56 -- -- IMAGING/PROCEDURES: CTAP 06/16 IMPRESSION: 1. Ileocolic anastomosis. Wall thickening and mucosal enhancement involving the ascending and sigmoid colon suggesting an acute colitis. No evidence for obstruction. 2. Fluid in the sigmoid colon well likely result in diarrhea. I personally reviewed the patient's new imaging results. Problem list pertaining to GI: Abdominal pain Diarrhea Crohn's disease S/p ileal resection Assessment: This is a 63 y-o female with a stricturing ileal disease, this was diagnosed in January 2023, underwent ileac resection due to ongoing symptoms, on remicade 5mg/kg every Q8 weeks, who presented to hospital for on evaluation of worsening abdominal pain, diarrhea. CT showed wall thickening and mucosal enhancement involving the ascending and sigmoid colon suggesting an acute colitis. No evidence for obstruction. No diarrhea since the admission. Differentials considered are infectious or inflammatory colitis. Plan: - agree with stool studies - Pain management - Antiemetics as needed. - If no improvement we might consider colonoscopy - Clear liquid diet for now - GI will follow I will discuss with Dr. Glass Thank you for allowing me to participate in the care of this patient. Please contact me with any questions or concerns. Total time spent: Approximately, 45 minutes was spent providing patient care, including patient evaluation, reviewing documentation/test results, and order puller. Thank you for asking us to participate in the care of this patient. Betty Olivares, DELANEY [facility] ([facility]) [phone] Associated attestation - eVronika Glass MD - 06/17/2023 5:18 PM CDT GI/Hepatology Staff addendum This patient was discussed in detail with NPPA, seen and examined by myself, please see my findingsas outlined below. She was well until June 12, when she began to experience right lower quadrant abdominal pain as well as multiple episodes per day of diarrhea. She denies any blood in her stool. She denies any fevers, nausea, or weight loss. Her symptoms did not improve and therefore she presented to the emergency room. She states she did not have a bowel movement today until she started taking liquids, at which time she again had diarrhea. Physical Exam: General Appearance: alert, oriented x3, no acute distress. BP 133/83 (BP Location: Left arm) Pulse 77 Temp 98 ??F (36.7 ??C) (Oral) Resp 18 SpO2 97% : COMMENTS: Reviewed the patient's pertinent lab and imaging results. Assessment and Plan: 63 year old female history of Crohn's disease, who was admitted with abdominalpain and diarrhea. CT scan shows colitis. Main differential is inflammatory versus infectious. We are awaiting stool studies. Continue supportive care with IV fluids, pain control as you are. Steroids were started in the ER, can continue pending results of the stool studies. Will follow with you. Total time spent on patient care activities 25 minutes Veronika Glsas MD documented in this encounter ED Notes * Jana Haque, RN - 06/16/2023 8:41 PM CDT [facility] ED Nurse Handoff Report ED Chief complaint: Diarrhea . ED Diagnosis: Final diagnoses: Acute colitis Allergies: Allergies Allergen Reactions Latex Hives Oxycodone Anaphylaxis, Hives and Swelling Throat swelling, per pt Penicillin G Anaphylaxis Sumatriptan Palpitations Aspirin Nausea and Vomiting Demerol Hcl [Meperidine] Nausea and Vomiting N/V Percocet [Oxycodone-Acetaminophen] Nausea and Vomiting N/V Codeine Nausea and Vomiting Mold Code Status: Full Code Activity level - Baseline/Home: independent. Activity Level - Current: independent. Lift room needed: No. Bariatric: No Supervisor [employer] Needed: No Isolation: Yes. Infection: Not Applicable C-Diff Pending. Respiratory status: Room air Vital Signs (within 30 minutes): Vitals: 06/16/23 1720 BP: (!) 134/96 Pulse: 101 Resp: 16 Temp: 97.8 ??F (36.6 ??C) TempSrc: Temporal SpO2: 100% Cardiac Rhythm: , Pain level: Patient confused: No. Patient Falls Risk: patient and family education and room door open. Elimination Status: Has voided Patient Report - Initial Complaint: diarrhea. Focused Assessment: Patient presented with abdominal pain and diarrhea. Patient has a history of Crohn's disease with last round of Remicade 8 weeks prior. She follows with [facility] as well as Dr. Madison Iverson of colorectal surgery. Crohn's has been complicated by ileocolic resection for refractory Crohn's. 4 days prior she had the gradual onset of epigastric/right upper quadrant and lower abdominal pain. Pain is severe and radiates to the back. This been accompanied by increased stool frequency from 3-8 stools per day. No associated bloody stool or fever. She is nauseated without vomiting. Abnormal Results: Labs Ordered and Resulted from Time of ED Arrival to Time of ED Departure COMPREHENSIVE METABOLIC PANEL - Abnormal Result Value Sodium 139 Potassium 3.6 Carbon Dioxide (CO2) 23 Anion Gap 13 Urea Nitrogen 7.4 (*) Creatinine 1.08 (*) GFR Estimate 57 (*) Calcium 9.4 Chloride 103 Glucose 95 Alkaline Phosphatase 87 AST 24 ALT 15 Protein Total 7.0 Albumin 4.7 Bilirubin Total 0.4 ROUTINE UA WITH MICROSCOPIC REFLEX TO CULTURE - Abnormal Color Urine Light Yellow Appearance Urine Clear Glucose Urine Negative Bilirubin Urine Negative Ketones Urine Negative Specific Woodruff Urine 1.013 Blood Urine Negative pH Urine 5.0 Protein Albumin Urine Negative Urobilinogen Urine Normal Nitrite Urine Negative Leukocyte Esterase Urine Small (*) Bacteria Urine Many (*) Mucus Urine Present (*) RBC Urine 1 WBC Urine 7 (*) Squamous Epithelials Urine <1 LIPASE - Normal Lipase 27 ERYTHROCYTE SEDIMENTATION RATE AUTO - Normal Erythrocyte Sedimentation Rate 5 CRP INFLAMMATION - Normal CRP Inflammation <3.00 CBC WITH PLATELETS AND DIFFERENTIAL WBC Count 5.7 RBC Count 5.02 Hemoglobin 13.9 Hematocrit 43.2 MCV 86 MCH 27.7 MCHC 32.2 RDW 13.2 Platelet Count 209 % Neutrophils 55 % Lymphocytes 36 % Monocytes 7 Mids % (Monos, Eos, Basos) % Eosinophils 1 % Basophils 1 % Immature Granulocytes 0 NRBCs per 100 WBC 0 Absolute Neutrophils 3.1 Absolute Lymphocytes 2.1 Absolute Monocytes 0.4 Mids Abs (Monos, Eos, Basos) Absolute Eosinophils 0.1 Absolute Basophils 0.1 Absolute Immature Granulocytes 0.0 Absolute NRBCs 0.0 CALPROTECTIN FECES ENTERIC BACTERIA AND VIRUS PANEL BY PCR C. DIFFICILE TOXIN B PCR WITH REFLEX TO C. DIFFICILE ANTIGEN AND TOXINS A/B EIA URINE CULTURE CT Abdomen Pelvis w Contrast Final Result IMPRESSION: 1. Ileocolic anastomosis. Wall thickening and mucosal enhancement involving the ascending and sigmoid colon suggesting an acute colitis. No evidence for obstruction. 2. Fluid in the sigmoid colon well likely result in diarrhea. Treatments provided: see MAR Family Comments: at bedside OBS brochure/video discussed/provided to patient: Yes ED Medications: Medications lactated ringers BOLUS 1,000 mL (has no administration in time range) methylPREDNISolone sodium succinate (solu-MEDROL) injection 20 mg (20 mg Intravenous $Given ) sodium chloride 0.9% BOLUS 1,000 mL (1,000 mLs Intravenous $New Bag 06/16/23 4117) ondansetron (ZOFRAN) injection 4 mg (4 mg Intravenous $Given 06/16/23 174) iopamidol (ISOVUE-370) solution 500 mL (75 mLs Intravenous $Given 06/16/23 180) CT scan flush (59 mLs Intravenous $Given 06/16/231801) Drips infusing: No For the majority of the shift this patient was Green. Interventions performed were NA. Sepsis treatment initiated: No Cares/treatment/interventions/medications to be completed following ED care: NA ED Nurse Name: Angella Negro RN 8:41 PM RECEIVING UNIT ED HANDOFF REVIEW Above ED Nurse Handoff Report was reviewed: Yes Reviewed by: Jana Haque RN on June 17, 2023 at 9:11 AM * Gabriella Solitario RN - 06/16/2023 5:19 PM CDT Pt presents to the ED with complaint of diarrhea for the last 3 days. Today pt states she had 8 watery stools. Pt states she has abd pain 03/17. Pt had surgery for chron's in March. Triage Assessment Row Name 06/16/23 1718 Triage Assessment (Adult) Airway WDL WDL Respiratory WDL Respiratory WDL WDL Skin Circulation/Temperature WDL Skin Circulation/Temperature WDL WDL Cardiac WDL Cardiac WDL X;rhythm Pulse Rate & Regularity tachycardic Peripheral/Neurovascular WDL Peripheral Neurovascular WDL WDL Cognitive/Neuro/Behavioral WDL Cognitive/Neuro/Behavioral WDL WDL * Manuel Rossi MD - 06/16/2023 5:14 PM CDT PIT/Triage Evaluation Patient presented with abdominal pain and diarrhea. Patient has a history of Crohn's disease with last round of Remicade 8 weeks prior. She follows with [facility] as well as Dr. Madison Iverson of colorectal surgery. Crohn's has been complicated by ileocolic resection for refractory Crohn's. 4 days prior she had the gradual onset of epigastric/right upper quadrant and lower abdominal pain. Pain issevere and radiates to the back. This been accompanied by increased stool frequency from 3-8 stoolsper day. No associated bloody stool or fever. She is nauseated without vomiting. Exam is notable for: Patient Vitals for the past 24 hrs: BP Temp Temp src Pulse Resp SpO2 06/16/23 1720 (!) 134/96 97.8 ??F (36.6 ??C) Temporal 101 16 100 % HEENT: Oropharynx is moist Eyes: Conjunctiva normal CV: Normal perfusion PULM: No respiratory distress. No stridor. ABD: Soft, non-distended. Moderate-severe tenderness in the RUQ/epigastric area. Bowel sounds normal. No pulsatile masses. No rebound, guarding or rigidity. No CVA tenderness. MSK: No gross deformity to all four extremities. LYMPH: No cervical lymphadenopathy. NEURO: Alert. Good muscular tone, no atrophy. Skin: Warm, dry and intact. Psych: Mood is good and affect is appropriate. Appropriate interventions for symptom management were initiated if applicable. Appropriate diagnostic tests were initiated if indicated. Important information for subsequent clinician: Fluids, antiemetics, labs including C. difficile testing and CT scan of the abdomen ordered. I briefly evaluated the patient and developed an initial plan of care. I discussed this plan and explained that this brief interaction does not constitute a full evaluation. Patient/family understands that they should wait to be fully evaluated and discuss any test results with another clinician prior to leaving the hospital. Manuel Rossi MD 06/16/23 1733 * Ruma Ponce MD - 06/16/2023 5:14 PM CDT History Chief Complaint: Diarrhea HPI Hortensia Buitrago is a 63 year old female with a history of Crohn's who presents to the ED with diarrhea and abdominal pain. Patient reports that 4 days ago she began having diarrhea and right sided abdominal pain which has been progressively worsening. Reports 8 episodes of diarrhea today. Also complains of nausea. Denies fever, cough, or cold symptoms, dysuria, urinary frequency, recent antibiotics, blood in stool, melena, history of c-difficile, medications for Crohn's disease, or vomiting. Patient follows with [facility]. Recently had a cholecystectomy for Chron's disease 3 months ago. Patient recently went to [place] but denies any other travel. Independent Historian: None - Patient Only Review of External Notes: I reviewed the note from 03/31/23 when patient was admitted for Crohn's disease and RLQ abdominal pain. Medications: Bisacodyl Albuterol Cyanocobalamin Diphenhydramine Esomeprazole Famotidine Hydromorphone Methocarbamol Montelukast Nortriptyline Zofran Senokot Trazodone Past Medical History: Chron's disease of colon Past Surgical History: Laparoscopic resect ileocecal Appendectomy Cholecystectomy Physical Exam Patient Vitals for the past 24 hrs: BP Temp Temp src Pulse Resp SpO2 06/16/23 1720 (!) 134/96 97.8 ??F (36.6 ??C) Temporal 101 16 100 % Physical Exam Nursing note and vitals reviewed. Constitutional: Appears well-developed and well-nourished. HENT: Head: Atraumatic. Mouth/Throat: Oropharynx is clear and moist. No oropharyngeal exudate. Dry mucous membranes. Eyes: Pupils are equal, round, and reactive to light. Neck: Normal range of motion. Neck supple. No tracheal deviation present. No thyromegaly present. Cardiovascular: Normal rate, regular rhythm, no murmur Pulmonary/Chest: Breath sounds are clear and equal without wheezes or crackles. Abdominal: Soft. Bowel sounds are normal. Exhibits no distension and no mass. Tenderness across lower abdomen and right side of abdomen with guarding but no rebound. Musculoskeletal: Exhibits no edema. Lymphadenopathy: No cervical adenopathy. Neurological: Alert and oriented to person, place, and time. Skin: Skin is warm and dry. No rash noted. No pallor. Emergency Department Course Imaging: CT Abdomen Pelvis w Contrast Final Result IMPRESSION: 1. Ileocolic anastomosis. Wall thickening and mucosal enhancement involving the ascending and sigmoid colon suggesting an acute colitis. No evidence for obstruction. 2. Fluid in the sigmoid colon well likely result in diarrhea. Report per radiology Laboratory: Labs Ordered and Resulted from Time of ED Arrival to Time of ED Departure COMPREHENSIVE METABOLIC PANEL - Abnormal Result Value Sodium 139 Potassium 3.6 Carbon Dioxide (CO2) 23 Anion Gap 13 Urea Nitrogen 7.4 (*) Creatinine 1.08 (*) GFR Estimate 57 (*) Calcium 9.4 Chloride 103 Glucose 95 Alkaline Phosphatase 87 AST 24 ALT 15 Protein Total 7.0 Albumin 4.7 Bilirubin Total 0.4 ROUTINE UA WITH MICROSCOPIC REFLEX TO CULTURE - Abnormal Color Urine Light Yellow Appearance Urine Clear Glucose Urine Negative Bilirubin Urine Negative Ketones Urine Negative Specific Woodruff Urine 1.013 Blood Urine Negative pH Urine 5.0 Protein Albumin Urine Negative Urobilinogen Urine Normal Nitrite Urine Negative Leukocyte Esterase Urine Small (*) Bacteria Urine Many (*) Mucus Urine Present (*) RBC Urine 1 WBC Urine 7 (*) Squamous Epithelials Urine <1 LIPASE - Normal Lipase 27 ERYTHROCYTE SEDIMENTATION RATE AUTO - Normal Erythrocyte Sedimentation Rate 5 CRP INFLAMMATION - Normal CRP Inflammation <3.00 CBC WITH PLATELETS AND DIFFERENTIAL WBC Count 5.7 RBC Count 5.02 Hemoglobin 13.9 Hematocrit 43.2 MCV 86 MCH 27.7 MCHC 32.2 RDW 13.2 Platelet Count 209 % Neutrophils 55 % Lymphocytes 36 % Monocytes 7 Mids % (Monos, Eos, Basos) % Eosinophils 1 % Basophils 1 % Immature Granulocytes 0 NRBCs per 100 WBC 0 Absolute Neutrophils 3.1 Absolute Lymphocytes 2.1 Absolute Monocytes 0.4 Mids Abs (Monos, Eos, Basos) Absolute Eosinophils 0.1 Absolute Basophils 0.1 Absolute Immature Granulocytes 0.0 Absolute NRBCs 0.0 C. DIFFICILE TOXIN B PCR WITH REFLEX TO C. DIFFICILE ANTIGEN AND TOXINS A/B EIA Procedures None Emergency Department Course & Assessments: Interventions: Medications sodium chloride 0.9% BOLUS 1,000 mL (1,000 mLs Intravenous $New Bag 06/16/231739) ondansetron (ZOFRAN) injection 4 mg (4 mg Intravenous $Given 06/16/231741) iopamidol (ISOVUE-370) solution 500 mL (75 mLs Intravenous $Given 06/16/231801) CT scan flush (59 mLs Intravenous $Given 06/16/231801) Assessments: 1941 I obtained history and examined the patient as noted above. Independent Interpretation (X-rays, CTs, rhythm strip): none Consultations/Discussion of Management or Tests: [address] Sheriff from [facility] about the care and treatment of the patient. [address] Flores of the hospitalist service who accepts the patient for admission. Social Determinants of Health affecting care: None Disposition: The patient was admitted to the hospital under the care of Dr. Flores. Impression & Plan [facility] Diagnoses: None Medical Decision Making: I found this patient to have acute colitis as a cause of her diarrhea and abdominal pain. I feel that this is likely an exacerbation of Crohn's colitis, so I consulted [facility] on-call who recommended to give her Solu-Medrol 20 mg every 8 hours and she was admitted to the care of the hospitalist service. She was also given pain medication and IV fluid hydration. C. difficile stool testing was ordered. She was not having any signs of bacterial sepsis at this time. Her urine showed 7 WBCs and many bacteria so her urine was cultured, however I did not feel that antibiotics wereindicated at this time pending urine culture, since she does not have any UTI symptoms or fever. Diagnosis: ICD-10-CM 1. Acute colitis K52.9 2. Crohn's disease with complication, unspecified gastrointestinal tract location (H) K50.919 3. Pyuria R82.81 Discharge Medications: New Prescriptions No medications on file Scribe Disclosure: Moise Ruffin, am serving as a scribe at 6:44 PM on 06/16/2023 to document services personally performed by Ruma Ponce MD based on my observations and the provider's statements to me. 06/16/2023 Ruma Ponce MD [place], Cheri Lee, MD 06/16/23 1724 documented in this encounter Miscellaneous Notes * Plan of Care - Lucille Day RN - 06/22/2023 6:15 PM CDT Removed PIV. Patient received discharge meds. Reviewed AVS with patient. All questions/concerns were addressed. Provided wheelchair transport to 's waiting car. * Plan of Care - Kallie Etienne RN - 06/22/2023 7:46 AM CDT Pt is alert and oriented x4 pain managed by IV Dilaudid and [place], Independent in the room, voidingw/o difficulty, passing flatus, on Low fiber diet, possible discharge today. Continue with POC. BP 138/83 (BP Location: Left arm, Patient Position: Semi-Gould's, Cuff Size: Adult Large) Pulse 68 Temp 98.4 ??F (36.9 ??C) (Oral) Resp 18 Wt 69.3 kg (152 lb 12.5 oz) SpO2 96% BMI 27.06 kg/m?? * Plan of Care - Lucille Day RN - 06/21/2023 6:05 PM CDT A&Ox4, independent in the room and SBA ambulating the halls, low appetite due to pain, giving IV dilaudid and po norco for pain. VSS on RA. Due for BM. Patient frustrated that MNCAMILO LOU stated he was unable to determine cause of pain. * Plan of Care - See Milton RN - 06/21/2023 1:06 PM CDT Goal Outcome Evaluation: Pt alert and orientated x4, pleasant. Up independent in room, ambulated in hallways x2 this shift. Now on regular diet. L/S clear. PIV S/L patent. [place] and then dilaudid given for pain, as pt was not getting relief from oral meds. Pt at bedside. Tried to eat lunch, did not go very well as pt was in pain 7/10. Pt stated pain goal is 2-3. After giving dilaudid pain is 5/10. Pt is voiding fine. * Plan of Care - Chari Kwon RN - 06/21/2023 6:12 AM CDT BP 147/85 Pulse 73 Temp 97.9 ??F Resp 16 SpO2 98% Patient is alert and oriented x4, IV dilaudid and robaxin was given for pain, RA, IV saline locked,independent in room with transfers, on a regular diet at this time, if patient is tolerating diet well can go home. * Plan of Care - Wilian Fischer RN - 06/20/2023 8:24 PM CDT RN - VSS. Pt c/o ongoing abdominal discomfort however endorsing improvement since admission. Still requiring occasional IV medication for relief. Diet adv to low fiber - Pt attempting - but not tolerating well - Diet adv to regular for tomorrow AM at req of pt. Pt up ad gerry in room. Endorsed nauseax1 and receiving zofran. No bowel movement since prior to colonoscopy earlier. Plan for ongoing monitoring of diet tolerance. * Utilization Review - Diana Rm MD - 06/20/2023 11:52 AM CDT Admission Status; Secondary Review Determination Under the authority of the Utilization Management Committee, the utilization review process indicated a secondary review on the above patient. The review outcome is based on review of the medical records, discussions with staff, and applying clinical experience noted on the date of the review. (xxx) Inpatient Status Appropriate - This patient's medical care is consistent with medical management for inpatient care and reasonable inpatient medical practice. () Observation Status Appropriate - This patient does not meet hospital inpatient criteria and is placed in observation status. If this patient's primary payer is Medicare and was admitted as an inpatient, Condition Code 44 should be used and patient status changed to observation. () Admission Status NOT Appropriate - This patient's medical care is not consistent with medical management for Inpatient or Observation Status. RATIONALE FOR DETERMINATION Hortensia Buitrago is a 63 year old female with a history of Crohn's disease for which she had ileocolic resection in March, now admitted 06/16/2023 with 5 days of abdominal pain and persistent watery diarrhea. CT scan showed wall thickening and mucosal enhancement of the ascending and sigmoid colon suggestive of acute colitis. No joanna complications with the anastomosis or evidence of obstruction. C diff and stool studies negative. She was admitted for close clinical monitoring, IV steroids, IV pain medication, GI consultation and further evaluation. She continues to have pain requiring repeated doses of IV pain medication. Colonoscopy completed this morning due to persistent symptoms. IP status is appropriate. The severity of illness, intensity of service provided, expected LOS and risk for adverse outcome make the care complex, high risk and appropriate for hospital admission. The information on this document is developed by the utilization review team in order for the business office to ensure compliance. This only denotes the appropriateness of proper admission status and does not reflect the quality of care rendered. The definitions of Inpatient Status and Observation Status used in making the determination above are those provided in the CMS Coverage Manual, Chapter 1 and Chapter 6, section 70.4. Sincerely, Diana Rm MD Physician Advisor Utilization Review/ Case Management [facility]. * Plan of Care - See Milton RN - 06/20/2023 11:24 AM CDT Goal Outcome Evaluation: Pt had colonoscopy this am. Pt alert and orientated x4 pleasant. Up and Independent in room. Showered today and linens changed. Dilaudid given for pain. Using heating pad on abdomen for pain. for pain, Robaxin given x1, dilaudid x2, tylenol x1. Lung sounds clear. Full liquid diet, had some cream ofwheat. Pt wanted to sleep, gave benadryl. * Pre-Procedure - Veronika Glass MD - 06/20/2023 8:48 AM CDT INPATIENT PRE-PROCEDURE NOTE CHIEF COMPLAINT / REASON FOR PROCEDURE: crohn;s Admission History and Physical Reviewed, including past medical history, social history family history, ROS, and interval progress notes: on chart-<30 days old; updated within 7 days. PRE-SEDATION ASSESSMENT: Lung Exam: normal Heart Exam: normal Airway Exam: Normal Previous reaction to anesthesia/sedation: NO Sedation plan based on assessment:Moderate (conscious) sedation ASA Classification: 2 - Mild systemic disease IMPRESSION: crohn's PLAN: colonoscopy Veronika Glass MD * Plan of Care - Irma Santillan RN - 06/20/2023 5:42 AM CDT Shift from [id number] Inpatient Progress Note: For complete assessment see flow sheet documentation. BP 138/87 (BP Location: Left arm) Pulse 70 Temp 98.4 ??F (36.9 ??C) (Oral) Resp 16 Wt 69.3 kg (152 lb 12.5 oz) SpO2 95% BMI 27.06 kg/m?? Orientation: AO x4 Neuros: Intact Pain status: Rated pain 6-8/10 in lower abdomen, dilaudid given x2 and was effective. Activity: Up independently Resp: WDL Cardiac: WDL GI: Abdominal discomfort noted : WDL LDA: PIV in RAC Infusions: SL Diet: Clear liquid Safety: Call light within reach, gripper socks on, reminder to call if dizzy/lightheaded Discharge Plan: Discharge when medically stable * Care Plan - Alpa Story RN - 06/19/2023 10:48 AM CDT Started remicade at 137ml/hr. Premedicated with tylenol. Patient got a headache, so decreased to 68.5ml/hr. tolerated well besides headache.tolerating clear liquids well. Gave iv dilaudid for pain. Bowel prep for colonoscopy tomorrow started around 1700, gave zofran prior. Temp: 98 ??F (36.7 ??C) Temp src: Oral BP: 133/86 Pulse: 69 Resp: 16 SpO2: 96 % O2 Device: None (Room air) * Plan of Care - Yanna Salgado RN - 06/19/2023 5:13 AM CDT Vitals are Temp: 98.1 ??F (36.7 ??C) Temp src: Oral BP: 125/71 Pulse: 67 Resp: 16 SpO2: 93 %. Patient is Alert and Oriented x4. They are independent with no assistive devices . Pt is a Full liquid diet. Tolerating well. They are complaining of 6-8/10 pain in their abdomen. Dilaudid given for pain. Patient is Saline locked. Denies nausea/dizziness/SOB. RA. Solu-Medrol q8hrs. PO Cipro q12hrs.GI following. Plan is for Remicade infusion today and pain control. * Plan of Care - Candy Dixon RN - 06/18/2023 2:24 PM CDT VSS, able to progress diet to full liquid and patient is tolerating this well. Ambulating up ad-gerry. Was able to shower today and patient expressed this helped her. Still having some pain that is treated with tylenol and IV dilaudid. Plan to advance diet, continue steroids, and possibly discharge tomorrow. * Plan of Care - Bernadine Wilhelm RN - 06/18/2023 5:01 AM CDT Aox4. VSS on RA. Tolerating IV Dilaudid for right abdominal pain. Zofran given for nausea. NS running @ 100. On IV Solu Medrol. Voiding good, passing gas. Hypoactive bowel sound. Skin wdl. Clear liquid diet, tolerating. Up ad gerry. Pt refusing bed alarm. Cdiff came back negative. Plan: Pain management, await further instructions from GI service, IVF, follow up stool studies and daily lab monitoring. * Plan of Care - Christa Bowen RN - 06/17/2023 6:30 AM CDT [facility] ED Boarding Nurse Handoff Addendum Report: Date/time: 06/17/2023, 6:37 AM Activity Level: standby Fall Risk: Yes: nonskid shoes/slippers when out of bed, patient and family education, and activity supervised Active Infusions: NS Current Meds Due: See MAR Current care needs: Per plan of care Respiratory status: Room air Vital signs (within last 30 minutes): Vitals: 06/16/23 1720 06/16/23 2300 06/16/23 2346 BP: (!) 134/96 135/76 (!) 128/97 Pulse: 101 80 Resp: 16 Temp: 97.8 ??F (36.6 ??C) 97.9 ??F (36.6 ??C) TempSrc: Temporal Oral SpO2: 100% 97% Focused assessment within last 30 minutes: A&O x4. VSS, RA. Up w/ SBA; steady gait. NPO since midnight. Enteric precautions for c-diff rule-out. Pt unable to produce stool sample at this time. Abd pain managed w/ PRN IV dilaudid x2. Cont NS infusing at 125 ml/hr. On IV solumedrol q8h. Plan for GI. ED Boarding Nurse name: Christa Nguyễn RN * Pharmacy-Admission Medication History - Car Kramer RPH - 06/16/2023 9:26 PM CDT Pharmacist Admission Medication History Admission medication history is complete. The information provided in this note is only as accurateas the sources available at the time of the update. Information Source(s): Patient via in-person Pertinent Information: none Changes made to MATERIAL DISPOSITION INSPECTOR medication list: Added: None Deleted: dilaudid, miralax, senna Changed: None Medication Affordability: Not including over the counter (OTC) medications, was there a time in the past 3 months when you did not take your medications as prescribed because of cost?: No Allergies reviewed with patient and updates made in EHR: yes Medication History Completed By: Car Kramer RPH 06/16/2023 9:26 PM MATERIAL DISPOSITION INSPECTOR Med List Medication Sig Last Dose acetaminophen (TYLENOL) 500 MG tablet Take 1-2 tablets (500-1,000 mg) by mouth every 6 hours as needed for mild pain prn acetaminophen (TYLENOL) 650 MG CR tablet Take 650 mg by mouth At Bedtime 06/15/2023 albuterol (PROAIR HFA/PROVENTIL HFA/VENTOLIN HFA) 108 (90 Base) MCG/ACT inhaler Inhale 2 puffs intothe lungs every 6 hours as needed for shortness of breath, wheezing or cough prn bisacodyl (DULCOLAX) [address] 1 suppository (10 mg) rectally 2 times daily as neededfor constipation prn cyanocobalamin (CYANOCOBALAMIN) 1000 MCG/ML injection Inject 1,000 mcg as directed every 30 days 05/16/2023 diphenhydrAMINE (BENADRYL) 25 MG capsule Take 1 capsule (25 mg) by mouth every 6 hours as needed for itching or allergies prn esomeprazole (NEXIUM) [address] capsule Take 40 mg by mouth 2 times daily (before meals) Take 30-60 minutes before eating. 06/16/2023 at am famotidine (PEPCID) 40 MG tablet Take 40 mg by mouth At Bedtime 06/15/2023 methocarbamol (ROBAXIN) 500 MG tablet Take 1 tablet (500 mg) by mouth 4 times daily as needed for muscle spasms 06/16/2023 at am montelukast (SINGULAIR) 10 MG tablet Take 10 mg by mouth At Bedtime 06/15/2023 nortriptyline (PAMELOR) 25 MG capsule Take 25 mg by mouth At Bedtime 06/15/2023 ondansetron (ZOFRAN ODT) 4 MG ODT tab Take 1 tablet (4 mg) by mouth every 8 hours as needed for nausea traZODone (DESYREL) 100 MG tablet Take 200 mg by mouth At Bedtime 06/15/2023 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/2023 12:45 PM PERSONAL INJURY LEGAL ASSISTANT Appointment [facility] [id number] [address] [place] [phone] Alisa Norman PA-C [facility] [address] [place] [address] COLTEN JOSHI [id number] documented as of this encounter Procedures Procedure Name Priority Date/Time Associated Diagnosis Comments SURGICAL PATHOLOGY EXAM Routine 06/20/2023 9:04 AM CDT COLONOSCOPY Routine 06/20/2023 8:38 AM CDT COLONOSCOPY, WITH POLYPECTOMY AND BIOPSY 06/20/2023 8:36 AM CDT Crohn disease (H) CBC WITH PLATELETS AND DIFFERENTIAL Routine 06/20/2023 6:22 AM CDT CBC WITH PLATELETS & DIFFERENTIAL Routine 06/20/2023 6:22 AM CDT BASIC METABOLIC PANEL Routine 06/20/2023 6:22 AM CDT CALPROTECTIN FECES STAT 06/17/2023 2: 20 PM CDT ENTERIC BACTERIA AND VIRUS PANEL BY PCR STAT 06/17/2023 2:19 PM CDT C. DIFFICILE TOXIN B PCR WITH REFLEX TO C. DIFFICILE ANTIGEN AND TOXINS A/B EIA STAT 06/17/2023 2:19 PM CDT BASIC METABOLIC PANEL STAT 06/17/2023 7:18 AM CDT CBC WITH PLATELETS STAT 06/17/2023 7: [address] ABDOMEN PELVIS W CONTRAST STAT 06/16/2023 6:09 PM CDT ROUTINE UA WITH MICROSCOPIC REFLEX TO CULTURE STAT 06/16/2023 5:50 PM CDT URINE CULTURE Add-On 06/16/2023 5:50 PM CDT EXTRA TUBE STAT 06/16/2023 5:37 PM CDT EXTRA RED TOP TUBE STAT 06/16/2023 5: 37 PM CDT EXTRA BLUE TOP TUBE STAT 06/16/2023 5 :37 PM CDT CBC WITH PLATELETS AND DIFFERENTIAL STAT 06/16/2023 5:37 PM CDT CBC WITH PLATELETS & DIFFERENTIAL STAT 06/16/2023 5:37 PM CDT LIPASE STAT 06/16/2023 5:37 PM CDT ERYTHROCYTE SEDIMENTATION RATE AUTO STAT 06/16/2023 5:37 PM CDT CRP INFLAMMATION STAT 06/16/2023 5:37 PM CDT COMPREHENSIVE METABOLIC PANEL STAT 06/16/2023 5:37 PM CDT documented in this encounter Results * Surgical Pathology Exam (06/20/2023 9:04 AM CDT) Case Report Surgical Pathology Report ? Case: [id number] ? Authorizing Provider: ??Veronika Glass MD ?Collected: ? 06/20/2023 09:04 AM ? Ordering Location: ? [facility] ?Received: ?06/20/2023 09:19 AM ? [facility] [place] ? Pathologist: ? Cecile St MD PhD ? Specimen: ?Large Intestine, Colon, Random, Random Right Colon biopsies R/O CMV ? 06/23/2023 11:42 AM [facility] LABORATORY Final Diagnosis A.Colon, right side, random locations , biopsies: - Colonic mucosa with no specific histopathologic abnormalities. - No features of an acute, chronic or microscopic colitis identified. - Negative for dysplasia or malignancy. 06/23/2023 11:42 AM [facility] Clinical Information Procedure: Colonoscopy with biopsies Pre-op Diagnosis: Crohn disease (H) [K50.90] Post-op Diagnosis: K50.90 - Crohn disease (H) [ICD-10-CM] 06/23/2023 11:42 AM [facility] Gross Description A(1). Large Intestine, Colon, Random, Random Right Colon biopsies R/O CMV: The specimen is received in formalin, labeled with the patient's name, medical record number and other identifying information and designated ? random right colon biopsies r/o CMV? . It consists of 6 claudio soft tissue fragments ranging from 0.2-0.5 cm. Entirely submitted in one cassette. ([facility]) 06/23/2023 11:42 AM [facility] Microscopic Description Microscopic examination was performed. 06/23/2023 11:42 AM [facility] Performing Labs The technical component of this testing was completed at [facility] 06/23/2023 11:42 AM [facility] Case Images 06/23/2023 11:42 AM [facility] Biopsy COLON STRUCTURE / Unknown 06/20/2023 9:04 AM CDT 06/20/2023 9:19 AM CDT Veronika CAZARES - GERBER [facility] Acute Care Lab [address] [facility] Lab (1st floor, no room number) [place] [address], [facility] [phone] * COLONOSCOPY (06/20/2023 8:38 AM CDT) COLONOSCOPY [facility] Patient Name: Hortensia Buitrago ?Procedure Date: 06/20/2023 8:38 AM ? Date of : 1960 ? Admit Type: Inpatient Age: 63 ? Gender: Female Attending MD: VERONIKA GLASS MD, ?Total Sedation Time: _22_ minutes of continuous bedside 1:1 Instrument Name: 253 - Pediatric Colonoscope Procedure: ?Colonoscopy Indications: ?Crohn's disease of the colon Providers: ?VERONIKA GLASS MD (Doctor) Referring MD: ? Medicines: ?Midazolam [...] monitored continuously. The ?Olympus Pediatric Colonoscope Model #[id number]-XZ303W, ?[place] #253, SN #[id number] was introduced through the ?anus and advanced [...] Will follow. ? Electonically signed by Veronika Glass MD VERONIKA GLASS MD 06/20/2023 9:29:14 AM I was physically present for the entire viewing portion of the exam. VERONIKA GLASS MD Number of Addenda: 0 Note Initiated On: 06/20/2023 8:38 AM MRN: ?[id number] Procedure Date: ? 06/20/2023 8:38:02 AM Total Procedure Duration: 0 hours 17 minutes 16 seconds Estimated Blood Loss: ? Scope In: 8:54:15 AM Scope Out: 9:11:31 AM RADIOLOGY RESULTS 06/20/2023 8:38 AM CDT Veronika Glass MD PROCEDURES RADIOLOGY RESULTS * CBC with platelets and differential (06/20/2023 6:22 AM CDT) WBC Count 6.7 4.0 - 11.0 10e3/uL 06/20/2023 6:38 AM CDT [facility] RBC Count 4.59 3.80 - 5.20 10e6/uL 06/20/2023 6:38 AM CDT [facility] Hemoglobin 12.5 11.7 - 15.7 g/dL 06/20/2023 6:38 AM CDT [facility] Hematocrit 38.6 35.0 - 47.0 % 06/20/2023 6:38 AM CDT [facility] MCV 84 78 - 100 fL 06/20/2023 6:38 AM CDT [facility] MCH 27.2 26.5 - 33.0 pg 06/20/2023 6:38 AM CDT [facility] MCHC 32.4 31.5 - 36.5 g/dL 06/20/2023 6:38 AM CDT [facility] RDW 13.1 10.0 - 15.0 % 06/20/2023 6:38 AM CDT [facility] Platelet Count 224 150 - 450 10e3/uL 06/20/2023 6:38 AM CDT [facility] % Neutrophils 75 % 06/20/2023 6:38 AM CDT [facility] % Lymphocytes 18 % 06/20/2023 6:38 AM CDT [facility] % Monocytes 6 % 06/20/2023 6:38 AM CDT [facility] Mids % (Monos, Eos, Basos) MAMIE 06/20/2023 6:38 AM CDT [facility] % Eosinophils 0 % 06/20/2023 6:38 AM CDT [facility] % Basophils 0 % 06/20/2023 6:38 AM CDT [facility] % Immature Granulocytes 1 % 06/20/2023 6:38 AM CDT [facility] NRBCs per 100 WBC 0 <1 /100 023 6:38 AM CDT [facility] Absolute Neutrophils 5.1 1.6 - 8.3 10e3/uL 06/20/2023 6:38 AM CDT [facility] Absolute Lymphocytes 1.2 0.8 - 5.3 10e3/uL 06/20/2023 6:38 AM CDT [facility] Absolute Monocytes 0.4 0.0 - 1.3 10e3/uL 06/20/2023 6:38 AM CDT [facility] Mids Abs (Monos, Eos, Basos) MAMIE 06/20/2023 6:38 AM CDT [facility] Absolute Eosinophils 0.0 0.0 - 0.7 10e3/uL 06/20/2023 6:38 AM CDT [facility] Absolute Basophils 0.0 0.0 - 0.2 10e3/uL 06/20/2023 6:38 AM CDT [facility] Absolute Immature Granulocytes 0.0 <=0.4 10e3/uL 06/20/2023 6:38 AM CDT [facility] Absolute NRBCs 0.0 10e3/uL 06/20/2023 6:38 AM CDT LABORATORY Blood STRUCTURE OF LEFT UPPER LIMB / Unknown Venipuncture / Unknown 06/20/2023 6:22 AM CDT 06/20/2023 6:28 AM CDT Al Berny Gallardo MD LAB - BLOOD ORDER NATALIIA LABORATORY [facility] Acute Care Lab [address] Lab (1st floor, no room number) [place] [address] [phone] * (ABNORMAL) Basic metabolic panel (06/20/2023 6:22 AM CDT) [facility] Sodium 141 135 - 145 mmol/L 06/20/2023 6:52 AM CDT LABORATORY Comment:Reference intervals for this test were updated on 06/03/2023 to more accurately reflect our healthy population. There may be differences in the flagging of prior results with similar values performed with this method. Interpretation of those prior results can be made in the context of the updated reference intervals. Potassium 3.8 3.4 - 5.3 mmol/L 06/20/2023 6:52 AM CDT LABORATORY Chloride 104 98 - 107 mmol/L 06/20/2023 6:52 AM CDT LABORATORY Carbon Dioxide (CO2) 28 22 - 29 mmol/L 06/20/2023 6:52 AM CDT LABORATORY Anion Gap 9 7 - 15 mmol/L 06/20/2023 6:52 AM CDT LABORATORY Urea Nitrogen 9.2 8.0 - 23.0 mg/dL 06/20/2023 6:52 AM CDT LABORATORY Creatinine 1.00(H) 0.51 - 0.95 mg/dL 06/20/2023 6:52 AM CDT LABORATORY GFR Estimate 63 >60 mL/min/1. 73m2 06/20/2023 6:52 AM CDT LABORATORY Calcium 9.5 8.8 - 10.2 mg/dL 06/20/2023 6:52 AM CDT LABORATORY Glucose 110(H) 70 - 99 mg/dL 06/20/2023 6:52 AM CDT LABORATORY Blood STRUCTURE OF LEFT UPPER LIMB / Unknown Venipuncture / Unknown 06/20/2023 6:22 AM CDT 06/20/2023 6:28 AM CDT Valdez Gallardo MD LAB - BLOOD ORDER NATALIIA [facility] Acute Care Lab [address] Lab (1st floor, no room number) [place] [address], [facility] [phone] * Calprotectin Feces (06/17/2023 2:20 PM CDT) Calprotectin Feces 30.1 0.0 - 49.9 mg/kg 06/18/2023 12:45 PM CDT [facility]PROT/END O Comment:Normal Stool RECTAL CONTENTS / Unknown Non-blood Collection / Unknown 06/17/2023 2:20 PM CDT 06/17/2023 2:25 PM CDT Aldo Flores MD LAB - STOOLS ORDERAB LES [facility]PROT/ENDO [facility]/Prot/Endo [address] [facility] [address], [facility] [phone] * C. difficile Toxin B PCR with reflex to C. difficile Antigen and Toxins A/B EIA (06/17/2023 2:19 PMCDT) C Difficile Toxin B by PCR Negative [...] CDT Narrative [facility] - 06/17/2023 6:04 PM CDT The Cepheid Xpert C. difficile Assay, performed on the [employer] Gene[employer]pert?? Instrument Systems, is a qualitative in [...] - MICRO GENERAL ORDERABLES [facility] Inf. Diseases Diag. Lab [address] [facility], [address] [place] [address], [facility] [phone] * Enteric Bacteria and Virus Panel PCR [...] using the FDA-cleared FilmArray GI Panel from [employer] ??A negative result should not rule [...] by the Infectious Diseases Diagnostic Laboratory at [facility]. This laboratory is certified under the Clinical Laboratory Improvement Amendments of 1988 (CLIA-88) as qualified to perform high complexity clinical laboratory testing. Ruma Ponce MD LAB - MICRO GENERAL ORDERABLES [facility] Inf. Diseases Diag. Lab [address] [facility], [address] [place] [address], [place] [phone] * CBC with platelets (06/17/2023 7:18 AM [...] LAB - BLOOD ORDERABL ES [facility] Acute Care Lab [address] [facility] Lab (1st floor, no room number) [place] [address], [place] [phone] * (ABNORMAL) Basic metabolic panel (06/17/2023 7:18 AM CDT) Sodium 141 135 - 145 mmol/L 06/17/2023 7:56 AM CDT [facility] Comment:Reference intervals for this test were updated on 06/03/2023 to more accurately reflect our healthy population. There may be differences in the flagging of prior results with similar values performed with this method. Interpretation of those prior results can be made in the context of the updated reference intervals. Potassium 4.3 3.4 - 5.3 mmol/L 06/17/2023 7:56 AM CDT LABORATORY Chloride 109(H) 98 - 107 mmol/L 06/17/2023 7:56 AM CDT LABORATORY Carbon Dioxide (CO2) 22 22 - 29 mmol/L 06/17/2023 7:56 AM CDT LABORATORY Anion Gap 10 7 - 15 mmol/L 06/17/2023 7:56 AM CDT LABORATORY Urea Nitrogen 6.4(L) 8.0 - 23.0 mg/dL 06/17/2023 7:56 AM CDT LABORATORY Creatinine 0.91 0.51 - 0.95 mg/dL 06/17/2023 7:56 AM CDT LABORATORY GFR Estimate 70 >60 mL/min/1. 73m2 06/17/2023 7:56 AM CDT LABORATORY Calcium 9.2 8.8 - 10.2 mg/dL 06/17/2023 7:56 AM CDT LABORATORY Glucose 123(H) 70 - 99 mg/dL 06/17/2023 7:56 AM CDT LABORATORY Blood STRUCTURE OF LEFT UPPER LIMB / Unknown Venipuncture / Unknown 06/17/2023 7:18 AM CDT 06/17/2023 7:30 AM CDT Aldo Flores MD LAB - BLOOD ORDERABL ES LABORATORY [facility] Acute Care Lab [address] [facility] Lab (1st floor, no room number) [place] [address], [facility] [phone] * CT Abdomen Pelvis w Contrast (06/16/2023 6:09 PM CDT) Anatomical Region Laterality Modality Abdomen/Pelvis, SUBRAD CT TIFFANIE DY, UMP CT ABDOMEN PELVIS, RAD CT Computed Tomography 06/16/2023 6:09 PM CDT Impressions 06/16/2023 6:28 PM CDT IMPRESSION: 1. ??Ileocolic anastomosis. Wall thickening and mucosal enhancement involving the ascending and sigmoid colon suggesting an acute colitis. No evidence for obstruction. 2. ??Fluid in the sigmoid colon well likely result in diarrhea. Narrative 06/16/2023 6:28 PM CDT EXAM: CT ABDOMEN PELVIS W CONTRAST LOCATION: [facility] DATE: 06/16/2023 INDICATION: hx Crohn's, RUQ epigastric pain COMPARISON: CT abdomen and pelvis 03/31/2023 TECHNIQUE: CT scan of the abdomen and pelvis was performed following injection of IV contrast. Multiplanar reformats were obtained. Dose reduction techniques were used. CONTRAST: 75mL Isovue 370 FINDINGS: LOWER CHEST: Normal. HEPATOBILIARY: The liver is unremarkable. Cholecystectomy. PANCREAS: Normal. SPLEEN: Small hypodense splenic lesion is unchanged. ADRENAL GLANDS: Normal. KIDNEYS/BLADDER: Right nephrectomy. BOWEL: Ileocolic resection. Mild wall thickening and mucosal enhancement involving the residual ascending colon and sigmoid colon. Fluid within the sigmoid colon. No evidence for obstruction. LYMPH NODES: Normal. VASCULATURE: Unremarkable. PELVIC ORGANS: Hysterectomy. No free pelvic fluid. MUSCULOSKELETAL: Advanced degenerative disc disease L5 level. Procedure Note Yury Shepherd MD - 06/16/2023 EXAM: CT ABDOMEN PELVIS W CONTRAST LOCATION: [facility] DATE: 06/16/2023 INDICATION: hx Crohn's, RUQ epigastric pain COMPARISON: CT abdomen and pelvis 03/31/2023 TECHNIQUE: CT scan of the abdomen and pelvis was performed followinginjection of IV contrast. Multiplanar reformats were obtained. Dosereduction techniques were used. CONTRAST: 75mL Isovue 370 FINDINGS: LOWER CHEST: Normal. HEPATOBILIARY: The liver is unremarkable. Cholecystectomy. PANCREAS: Normal. SPLEEN: Small hypodense splenic lesion is unchanged. ADRENAL GLANDS: Normal. KIDNEYS/BLADDER: Right nephrectomy. BOWEL: Ileocolic resection. Mild wall thickening and mucosal enhancementinvolving the residual ascending colon and sigmoid colon. Fluid within thesigmoid colon. No evidence for obstruction. LYMPH NODES: Normal. VASCULATURE: Unremarkable. PELVIC ORGANS: Hysterectomy. No free pelvic fluid. MUSCULOSKELETAL: Advanced degenerative disc disease L5 level. IMPRESSION: 1. Ileocolic anastomosis. Wall thickening and mucosal enhancementinvolving the ascending and sigmoid colon suggesting an acute colitis. Noevidence for obstruction. 2. Fluid in the sigmoid colon well likely result in diarrhea. Manuel Rossi MD IMG CT ORDERABLES * (ABNORMAL) Urine Culture (06/16/2023 5:50 PM CDT) Culture 50,000-100,000 CFU/mL Escherichia coli(A) MAMIE 06/18/2023 3:38 AM CDT [facility] Urine URINE SPECIMEN OBTAINED BY CLEAN CATCH PROCEDURE / Unknown Non-blood Collection / Unknown 06/16/2023 5:50 PM CDT 06/16/2023 6:05 PM CDT Narrative Organism Antibiotic Method Susceptibility Escherichia coli Ampicillin MAMIE 4 ug/mL: Susceptible Escherichia coli Ampicillin/ Sulbactam MAMIE <=2 ug/mL: Susceptible Escherichia coli Piperacillin/Tazobactam MAMIE <=4 ug/mL: Susceptible Escherichia coli Cefazolin MAMIE <=4 ug/mL: Susceptible Comment:Cefazolin PA C breakpoints are for the treatment of uncomplicated urinary tract infections. For the treatment of systemic infections, please contact the laboratory for additional testing. Escherichia coli Cefoxitin MAMIE <=4 ug/mL: Susceptible Escherichia coli Ceftazidime MAMIE <=1 ug/mL: Susceptible Escherichia coli Ceftriaxone MAMIE <=1 ug/mL: Susceptible Escherichia coli Cefepime MAMIE <=1 ug/mL: Susceptible Escherichia coli Gentamicin MAMIE <=1 ug/mL: Susceptible Escherichia coli Tobramycin MAMIE <=1 ug/mL: Susceptible Escherichia coli Ciprofloxacin MAMIE <=0.25 ug/mL: Susceptible Escherichia coli Levofloxacin MAMIE <=0.12 ug/mL: Susceptible Escherichia coli Nitrofurantoin MAMIE 128 ug/mL: Resistant Escherichia coli Trimethoprim/Sulfamethoxazole MAMIE <=1/19 ug/mL: Susceptible Ruma Ponce MD LAB - MICRO GENERAL ORDERABLES [facility] Inf. Diseases Diag. Lab [address] [facility] [place] [address], [facility] [phone] * (ABNORMAL) UA with Microscopic reflex to Culture (06/16/2023 5:50 PM CDT) Color Urine Light Yellow Colorless, Straw, Light Yellow, Yellow 06/16/2023 6:16 PM CDT [facility] Appearance Urine Clear Clear 06/16/20 6:16 PM CDT [facility] Glucose Urine Negative Negative mg/dL 06/16/2023 6:16 PM CDT [facility] Bilirubin Urine Negative Negative 6:16 PM CDT [facility] Ketones Urine Negative Negative mg/dL 06/16/2023 6:16 PM CDT [facility] Specific [place] Urine 1.013 1.003 - 1.035 06/16/2023 6:16 PM CDT [facility] Blood Urine Negative Negative 06/16/2023 6:16 PM CDT LABORATORY pH Urine 5.0 5.0 - 7.0 06/16/2023 6:16 PM CDT [facility] Protein Albumin Urine Negative Negative mg/dL 06/16/2023 6:16 PM CDT LABORATORY Urobilinogen Urine Normal Normal, 2.0 mg/dL 06/16/2023 6:16 PM CDT [facility] Nitrite Urine Negative Negative 06/16/2023 6:16 PM CDT [facility] Leukocyte Esterase Urine Small(A) Negative 06/16/2023 6:16 PM CDT LABORATORY Bacteria Urine Many(A) None Seen /HPF 06/16/2023 6:16 PM CDT LABORATORY Mucus Urine Present(A) None Seen /LPF 06/16/2023 6:16 PM CDT LABORATORY RBC Urine 1 <=2 /HPF 06/16/2023 6:16 PM CDT LABORATORY WBC Urine 7(H) <=5 /HPF 06/16/2023 6:16 PM CDT LABORATORY Squamous Epithelials Urine <1 <=1 /HPF 06/16/2023 6:16 PM CDT LABORATORY Urine URINE SPECIMEN OBTAINED BY CLEAN CATCH PROCEDURE / Unknown Non-blood Collection / Unknown 06/16/2023 5:50 PM CDT 06/16/2023 6:05 PM CDT Narrative [facility] - 06/16/2023 6:16 PM CDT Urine Culture not indicated Manuel Rossi MD LAB - URINE ORDER NATALIIA [facility] Acute Care Lab [address] Lab (1st floor, no room number) [place] [phone], [facility] [phone] * Extra Red Top Tube (06/16/2023 5:37 PM CDT) Hold Specimen [facility] 06/16/2023 7:02 PM CDT [facility] Blood STRUCTURE OF RIGHT UPPER LIMB / Unknown Venipuncture / Unknown 06/16/2023 5:37 PM CDT 06/16/2023 5:47 PM CDT Ruma Ponce MD LAB - BLOOD ORDERAB LES Performing Organization Address City/[facility]/ZIP Co de Phone Number [facility] [address] Lab (1st floor, no room number) [place] [phone], [facility] [phone] * Extra Blue Top Tube (06/16/2023 5:37 PM CDT) Hold Specimen [facility] 06/16/2023 7:02 PM CDT [facility] Blood STRUCTURE OF RIGHT UPPER LIMB / Unknown Venipuncture / Unknown 06/16/2023 5:37 PM CDT 06/16/2023 5:47 PM CDT Ruma Ponce MD LAB - BLOOD ORDERAB LES [facility] Acute Care Lab [address] Lab (1st floor, no room number) [place] [phone], [facility] [phone] * CBC with platelets and differential (06/16/2023 5:37 PM CDT) WBC Count 5.7 4.0 - 11.0 10e3/uL 06/16/2023 5:50 PM CDT LABORATORY RBC Count 5.02 3.80 - 5.20 10e6/uL 06/16/2023 5:50 PM CDT [facility] Hemoglobin 13.9 11.7 - 15.7 g/dL 06/16/2023 5:50 PM CDT [facility] Hematocrit 43.2 35.0 - 47.0 % 06/16/2023 5:50 PM CDT [facility] MCV 86 78 - 100 fL 06/16/2023 5:50 PM CDT [facility] MCH 27.7 26.5 - 33.0 pg 06/16/2023 5:50 PM CDT [facility] MCHC 32.2 31.5 - 36.5 g/dL 06/16/2023 5:50 PM CDT [facility] RDW 13.2 10.0 - 15.0 % 06/16/2023 5:50 PM CDT [facility] Platelet Count 209 150 - 450 10e3/uL 06/16/2023 5:50 PM CDT [facility] % Neutrophils 55 % 06/16/2023 5:50 PM CDT [facility] % Lymphocytes 36 % 06/16/2023 5:50 PM CDT [facility] % Monocytes 7 % 06/16/2023 5:50 PM CDT [facility] Mids % (Monos, Eos, Basos) MAMIE 06/16/2023 5:50 PM CDT [facility] % Eosinophils 1 % 06/16/2023 5:50 PM CDT [facility] % Basophils 1 % 06/16/2023 5:50 PM CDT [facility] % Immature Granulocytes 0 % 06/16/2023 5:50 PM CDT [facility] NRBCs per 100 WBC 0 <1 /100 023 5:50 PM CDT [facility] Absolute Neutrophils 3.1 1.6 - 8.3 10e3/uL 06/16/2023 5:50 PM CDT [facility] Absolute Lymphocytes 2.1 0.8 - 5.3 10e3/uL 06/16/2023 5:50 PM CDT [facility] Absolute Monocytes 0.4 0.0 - 1.3 10e3/uL 06/16/2023 5:50 PM CDT [facility] Mids Abs (Monos, Eos, Basos) MAMIE 06/16/2023 5:50 PM CDT [facility] Absolute Eosinophils 0.1 0.0 - 0.7 10e3/uL 06/16/2023 5:50 PM CDT [facility] Absolute Basophils 0.1 0.0 - 0.2 10e3/uL 06/16/2023 5:50 PM CDT [facility] Absolute Immature Granulocytes 0.0 <=0.4 10e3/uL 06/16/2023 5:50 PM CDT [facility] Absolute NRBCs 0.0 10e3/uL 06/16/2023 5:50 PM CDT [facility] Blood STRUCTURE OF RIGHT UPPER LIMB / Unknown Venipuncture / Unknown 06/16/2023 5:37 PM CDT 06/16/2023 5:47 PM CDT Manuel Rossi MD LAB - BLOOD ORDER NATALIIA [facility] Lab [address] Lab (1st floor, no room number) [place] [phone], [facility] [phone] * CRP inflammation (06/16/2023 5:37 PM CDT) CRP Inflammation <3.00 <5.00 mg/L 06/16/20 6:19 PM CDT [facility] Blood STRUCTURE OF RIGHT UPPER LIMB / Unknown Venipuncture / Unknown 06/16/2023 5:37 PM CDT 06/16/2023 5:47 PM CDT Manuel Rossi MD LAB - BLOOD ORDER NATALIIA [facility] Acute Care Lab [address] Lab (1st floor, no room number) [place] [address], [place] [phone] * Erythrocyte sedimentation rate auto (06/16/2023 5:37 PM CDT) Erythrocyte Sedimentation Rate 5 0 - 30 mm/hr 06/16/2023 6:27 PM CDT [facility] Blood STRUCTURE OF RIGHT UPPER LIMB / Unknown Venipuncture / Unknown 06/16/2023 5:37 PM CDT 06/16/2023 5:47 PM CDT Manuel Rossi MD LAB - BLOOD ORDER NATALIIA LABORATORY [facility] Lab [address] Lab (1st floor, no room number) [place] [address], [facility] [phone] * Lipase (06/16/2023 5:37 PM CDT) Lipase 27 13 - 60 U/L 06/16/2023 6:19 PM CDT LABORATORY Blood STRUCTURE OF RIGHT UPPER LIMB / Unknown Venipuncture / Unknown 06/16/2023 5:37 PM CDT 06/16/2023 5:47 PM CDT Manuel Rossi MD LAB - BLOOD ORDER NATALIIA Performing Organization Address City/[facility]/ZIP Co de Phone Number LABORATORY [facility] [address] Lab (1st floor, no room number) [place] [address], [facility] [phone] * (ABNORMAL) Comprehensive metabolic panel (06/16/2023 5:37 PM CDT) Sodium 139 135 - 145 mmol/L 06/16/2023 6:19 PM CDT LABORATORY Comment:Reference intervals for this test were updated on 06/03/2023 to more accurately reflect our healthy population. There may be differences in the flagging of prior results with similar values performed with this method. Interpretation of those prior results can be made in the context of the updated reference intervals. Potassium 3.6 3.4 - 5.3 mmol/L 06/16/2023 6:19 PM CDT [facility] Carbon Dioxide (CO2) 23 22 - 29 mmol/L 06/16/2023 6:19 PM CDT [facility] Anion Gap 13 7 - 15 mmol/L 06/16/2023 6:19 PM CDT [facility] Urea Nitrogen 7.4(L) 8.0 - 23.0 mg/dL 06/16/2023 6:19 PM CDT [facility] Creatinine 1.08(H) 0.51 - 0.95 mg/dL 06/16/2023 6:19 PM CDT [facility] GFR Estimate 57(L) >60 mL/min/1. 73m2 06/16/2023 6:19 PM CDT [facility] Calcium 9.4 8.8 - 10.2 mg/dL 06/16/2023 6:19 PM CDT [facility] Chloride 103 98 - 107 mmol/L 06/16/2023 6:19 PM CDT [facility] Glucose 95 70 - 99 mg/dL 06/16/2023 6:19 PM CDT [facility] Alkaline Phosphatase 87 35 - 104 U/L 06/16/2023 6:19 PM CDT [facility] AST 24 0 - 45 U/L 06/16/2023 6:19 PM CDT [facility] Comment:Reference intervals for this test were updated on 02/17/2023 to more accurately reflect our healthy population. There may be differences in the flagging of prior results with similar values performed with this method. Interpretation of those prior results can be made in the context of the updated reference intervals. ALT 15 0 - 50 U/L 06/16/2023 6:19 PM CDT [facility] Comment:Reference intervals for this test were updated on 02/17/2023 to more accurately reflect our healthy population. There may be differences in the flagging of prior results with similar values performed with this method. Interpretation of those prior results can be made in the context of the updated reference intervals. Protein Total 7.0 6.4 - 8.3 g/dL 06/16/2023 6:19 PM CDT [facility] Albumin 4.7 3.5 - 5.2 g/dL 06/16/2023 6:19 PM CDT [facility] Bilirubin Total 0.4 <=1.2 mg/dL 06/16/2023 6:19 PM CDT [facility] Blood STRUCTURE OF RIGHT UPPER LIMB / Unknown Venipuncture / Unknown 06/16/2023 5:37 PM CDT 06/16/2023 5:47 PM CDT Manuel Rossi MD LAB - BLOOD ORDER NATAL[facility] [address] [facility] (1st floor, no room number) [place] [address], [facility] [phone] documented in this encounter Visit Diagnoses Diagnosis Acute colitis- Primary Other and unspecified noninfectious gastroenteritis and colitis Acute colitis Other and unspecified noninfectious gastroenteritis and colitis Crohn's disease with complication, unspecified gastrointestinal tract location (H) Pyuria Other nonspecific finding on examination of urine Abdominal pain, unspecified abdominal location Crohn disease (H) Regional enteritis of unspecified site documented in this encounter Admitting Diagnoses Diagnosis Acute colitis Other and unspecified noninfectious gastroenteritis and colitis documented in this encounter Administered Medications Inactive Administered Medications - up to 3 most recent administrations Medication Order MAR Action Action Date Dose Rate Site acetaminophen (TYLENOL) tablet 500-1,000 mg 500-1,000 mg, Oral, EVERY 6 HOURS PRN, mild pain, Starting on 06/16/23 at 2350, Maximum acetaminophen dose from all sources = 75 mg/kg/day not to exceed 4 gram $Given 06/22/2023 8:16 AM CDT 1,000 mg $Given 06/21/2023 3:41 PM CDT 1,000 mg $Given 06/20/2023 7:58 PM CDT 1,000 mg diphenhydrAMINE (BENADRYL) capsule 50 mg 50 mg, Oral, AT BEDTIME PRN, itching, sleep, Starting on Fri06/20/23 at 1409 $Given 06/20/2023 2:27 PM CDT 50 m g HYDROcodone-acetaminophen (NORCO) 5-325 MG per tablet 1-2 tablet 1-2 tablet, Oral, EVERY 6 HOURS PRN, severe pain, Starting on Fri06/22/23 at 1139, Maximum acetaminophen dose from all sources= 75 mg/kg/day not to exceed 4 grams $Given 06/22/2023 6:00 PM CDT 2 tablets $Given 06/22/2023 11:48 AM CDT 1 tablet hydrOXYzine (ATARAX) tablet 25 mg 25 mg, Oral, EVERY 6 HOURS PRN, other, adjuvant pain, Starting on 06/21/23 at 0922, Start with 25 mg for the initial dose. If the 25 mg dose is ineffective, increase to the 50 mg dose at the next administration time and maintain further doses at 50 mg. If the 50 mg dose is ineffective, contact the provider. hydrOXYzine (ATARAX) tablet 50 mg 50 mg, Oral, EVERY 6 HOURS PRN, other, adjuvant pain, Starting on Fri06/21/23 at 0922, Start with 25 mg for the initial dose. If the 25 mg dose is ineffective, increase to the 50 mg dose at the next administration time and maintain further doses at 50 mg. If the 50 mg dose is ineffective, contact the provider. $Given 06/22/2023 6:00 PM CDT 50 mg $Given 06/22/2023 9:58 AM CDT 50 mg methocarbamol (ROBAXIN) tablet 500 mg 500 mg, Oral, 4 TIMES DAILY PRN, muscle spasms, Starting on Fri06/17/23 at 1057 $Given 06/22/2023 6:00 PM CDT 500 mg $Given 06/22/2023 1:05 PM CDT 500 mg $Given 06/22/2023 8:16 AM CDT 500 mg montelukast (SINGULAIR) tablet 10 mg 10 mg, Oral, AT BEDTIME, First dose on Fri06/16/23 at 2355 $Given 06/21/2023 10:15 PM CDT 10 mg $Given 06/20/2023 9:55 PM CDT 10 mg $Given 06/19/2023 10:04 PM CDT 10 mg naloxone (NARCAN) injection 0.2 mg 0.2 mg, Intravenous, EVERY 2 MIN PRN, opioid reversal, Starting on Fri06/17/23 at 1123, Administer intravenous route when available and notify provider when administered. For unintended sedation or respiratory depression if all of the below criteria are met: ~ respiratory rate LESS than or EQUAL to 8. ~SaO2 less than 92% and or/end-tidal CO2 is greater than 50. ~ the patient is receiving an opioid, has unintended sedations assessed as RASS (-3), and is currently not on mechanical ventilation. RASS scale moderate (-3) is movement or eye opening to voice but no eye contact. Patient Monitoring Once the patient has demonstrated a response to the naloxone, continue to monitor respiratory rate, depth, oxygen saturation and end-tidal CO2 (if available) every 15 minutes x 2, then every 30 minutes x 2, then every 1 hour x 1 after each naloxone dose. Consider transfer to ICU if patient respiratory parameters have not improved after 4 naloxone doses. naloxone (NARCAN) injection 0.2 mg 0.2 mg, Intramuscular, EVERY 2 MIN PRN, opioid reversal, Starting on Fri06/17/23 at 1123, Administer intramuscular if an intravenous route is not available and notify provider when administered. For unintended sedation or respiratory depression if all of the below criteria are met: ~ respiratory rate LESS than or EQUAL to 8. ~SaO2 less than 92% and or/end-tidal CO2 is greater than 50. ~ the patient is receiving an opioid, has unintended sedations assessed as RASS (-3), and is currently not on mechanical ventilation. RASS scale moderate (-3) is movement or eye opening to voice but no eye contact. Patient Monitoring Once the patient has demonstrated a response to the naloxone, continue to monitor respiratory rate, depth, oxygen saturation and end-tidal CO2 (if available) every 15 minutes x 2, then every 30 minutes x 2, then every 1 hour x 1 after each naloxone dose. Consider transfer to ICU if patient respiratory parameters have not improved after 4 naloxone doses. naloxone (NARCAN) injection 0.4 mg 0.4 mg, Intravenous, EVERY 2 MIN PRN, opioid reversal, Starting on Fri06/17/23 at 1123, Administer intravenous route when available and notify provider when administered. For unintended sedation or respiratory depression if all of the below criteria are met: ~ respiratory rate LESS than or EQUAL to 8. ~ SaO2 less than 92% and or/end-tidal CO2 is greater than 50. ~ the patient is receiving an opioid, has unintended sedation assessed as RASS (-4) or (-5) and patient is currently not on mechanical ventilation. RASS scale (-4) is deep sedation with no response to voice but movement or eye opening to physical stimulation. RASS scale (-5) is unarousable. Patient Monitoring Once the patient has demonstrated a response to the naloxone, continue to monitor respiratory rate, depth, oxygen saturation and end-tidal CO2 (if available) every 15 minutes x 2, then every 30 minutes x 2, then every 1 hour x 1 after each naloxone dose. Consider transfer to ICU if patient respiratory parameters have not improved after 4 naloxone doses. naloxone (NARCAN) injection 0.4 mg 0.4 mg, Intramuscular, EVERY 2 MIN PRN, opioid reversal, Starting on Fri06/17/23 at 1123, Administer intramuscular if an intravenous route is not available and notify provider when administered. For unintended sedation or respiratory depression if all of the below criteria are met: ~ respiratory rate LESS than or EQUAL to 8. ~ SaO2 less than 92% and or/end-tidal CO2 is greater than 50. ~ the patient is receiving an opioid, has unintended sedation assessed as RASS (-4) or (-5) and patient is currently not on mechanical ventilation. RASS scale (-4) is deep sedation with no response to voice but movement or eye opening to physical stimulation. RASS scale (-5) is unarousable. Patient Monitoring Once the patient has demonstrated a response to the naloxone, continue to monitor respiratory rate, depth, oxygen saturation and end-tidal CO2 (if available) every 15 minutes x 2, then every 30 minutes x 2, then every 1 hour x 1 after each naloxone dose. Consider transfer to ICU if patient respiratory parameters have not improved after 4 naloxone doses. nortriptyline (PAMELOR) capsule 25 mg 25 mg, Oral, AT BEDTIME, First dose on Fri06/17/23 at 2200 $Given 06/21/2023 10:15 PM CDT 25 mg $Given 06/20/2023 9:55 PM CDT 25 mg $Given 06/19/2023 10:04 PM CDT 25 mg ondansetron (ZOFRAN) injection 4 mg 4 mg, Intravenous, EVERY 6 HOURS PRN, nausea, vomiting, Administer over 2-5 Minutes, Starting on Fri06/17/23 at 0843, Irritant. $Given 06/21/2023 12:09 PM CDT 4 mg $Given 06/20/2023 10:35 PM CDT 4 mg $Given 06/20/2023 12:54 AM CDT 4 mg pantoprazole (PROTONIX) EC tablet 40 mg 40 mg, Oral, 2 TIMES DAILY BEFORE MEALS, First dose on Fri06/17/23 at 0730, DO NOT CRUSH. $Given 06/22/2023 4:37 PM CDT 40 mg $Given 06/22/2023 8:09 AM CDT 40 mg $Given 06/21/2023 4:34 PM CDT 40 mg predniSONE (DELTASONE) tablet 10 mg 10 mg, Oral, DAILY, First dose on Fri07/01/23 at 0900, For 4 doses, 4th order in taper predniSONE (DELTASONE) tablet 20 mg 20 mg, Oral, DAILY, First dose on Fri06/28/23 at 0900, For 3 doses, 3rd order in taper predniSONE (DELTASONE) tablet 40 mg 40 mg, Oral, DAILY, First dose on Fri06/25/23 at 0900, For 3 doses, 2nd order in taper predniSONE (DELTASONE) tablet 60 mg 60 mg, Oral, DAILY, First dose on Fri06/22/23 at 0900, For 3 doses, 1st order in taper $Given 06/22/2023 8:09 AM CDT 60 mg sodium chloride 0.9 % infusion Intravenous, CONTINUOUS PRN, Intra-procedure, Starting on Fri06/20/23 at 0846, Until Fri06/20/23 at 0944 $New Bag 06/20/2023 8:46 AM CDT 125 mL/hr 125 mL/hr traZODone (DESYREL) tablet 200 mg 200 mg, Oral, AT BEDTIME, First dose on Fri06/17/23 at 2200 $Given 06/21/2023 10:15 PM CDT 200 mg $Given 06/20/2023 9:55 PM CDT 200 mg $Given 06/19/2023 10:03 PM CDT 200 mg documented in this encounter Active and Recently Administered Medications Times are shown in CDT. Scheduled Medication Order 06/20/2023 06/21/2023 06/22/2023 ciprofloxacin (CIPRO) tablet 500 mg (COMPLETED) Routine, 500 mg, Oral, EVERY 12 HOURS SCHEDULED, First dose on Fri06/18/23 at 0800, For 3 days, Administer at least 2 hours before or 4 hours after aluminum, calcium, iron, zinc or magnesium containing medications. May be taken with food or on an empty stomach. Do not administer alone with a dairy product like milk or yogurt or calcium-fortified juice, but may be administered with a meal containing dairy. Hold tube feeding 1 hour before and 1 hour after administration, Indications: Urinary Tract Infection 1011 ($Given - Provider: See Milton RN)1957 ($Given - Provider: Wilian Fischer RN) methylPREDNISolone sodium succinate (solu-MEDROL) injection 20 mg (CANCELED) 20 mg, Intravenous, EVERY 8 HOURS, First dose on Fri06/16/23 at 1955, Doses greater than or equal to 1000 mg administer over 60 minutes Doses greater than or equal to 500 mg administer over 30-60 minutes Doses greater than or equal to 250 mg administer over 15-30 minutes Doses less than or equal to 125 mg IVP over 3-5 minutes 0444 ($Given - Provider: Irma Santillan RN)1144 ($Given - Provider: See Milton, IFRAH)1959 ($Given - Provider: Wilian Fischer, IFRAH) 0434 ($Given - Provider: Chari Kwon, IFRAH)1200 ($Given - Provider: See Milton RN - Comment: 20mg)2034 ($Given - Provider: Kallie Etienne RN) 0428 ($Given - Provider: Kallie Etienne RN) montelukast (SINGULAIR) tablet 10 mg 10 mg, Oral, AT BEDTIME, First dose on Fri06/16/23 at 2355 2155 ($Given - Provider: Wilian Fischer RN) 2215 ($Given - Provider: Kallie Etienne RN) nortriptyline (PAMELOR) capsule 25 mg 25 mg, Oral, AT BEDTIME, First dose on Fri06/17/23 at 2200 2155 ($Given - Provider: Wilian Fischer, IFRAH) 2215 ($Given - Provider: Kallie Etienne RN) pantoprazole (PROTONIX) EC tablet 40 mg 40 mg, Oral, 2 TIMES DAILY BEFORE MEALS, First dose on Fri06/17/23 at 0730, DO NOT CRUSH. 0634 ($Given - Provider: Irma Santillan RN)1713 ($Given - Provider: Wilian Fischer RN) 0655 ($Given - Provider: Chari Kwon, IFRAH)1634 ($Given - Provider: Lucille Day, IFRAH) 0809 ($Given - Provider: Lucille Day, RN)1637 ($Given - Provider: Lucille Day, IFRAH) predniSONE (DELTASONE) tablet 10 mg(Linked Group 1) 10 mg, Oral, DAILY, First dose on Fri07/01/23 at 0900, For 4 doses, 4th order in taper predniSONE (DELTASONE) tablet 20 mg(Linked Group 1) 20 mg, Oral, DAILY, First dose on Fri06/28/23 at 0900, For 3 doses, 3rd order in taper predniSONE (DELTASONE) tablet 40 mg(Linked Group 1) 40 mg, Oral, DAILY, First dose on Fri06/25/23 at 0900, For 3 doses, 2nd order in taper predniSONE (DELTASONE) tablet 60 mg(Linked Group 1) 60 mg, Oral, DAILY, First dose on Fri06/22/23 at 0900, For 3 doses, 1st order in taper 0809 ($Given - Provider: Lucille Day, IFRAH) traZODone (DESYREL) tablet 200 mg 200 mg, Oral, AT BEDTIME, First dose on Fri06/17/23 at 2200 2155 ($Given - Provider: Wilian Fischer, IFRAH) 2215 ($Given - Provider: Kallie Etienne RN) PRN Medication Order 06/20/2023 06/21/2023 06/22/2023 acetaminophen (TYLENOL) tablet 500-1,000 mg 500-1,000 mg, Oral, EVERY 6 HOURS PRN, mild pain, Starting on Fri06/16/23 at 2350, Maximum acetaminophen dose from all sources = 75 mg/kg/day not to exceed 4 gram 1354 ($Given - Provider: See Milton RN)1958 ($Given - Provider: Wilian Fischer, IFRAH) 1541 ($Given - Provider: Lucille Day, IFRAH) 0816 ($Given - Provider: Lucille Day, IFRAH) albuterol (PROVENTIL HFA/VENTOLIN HFA) inhaler 2 puff, Inhalation, EVERY 6 HOURS PRN, shortness of breath, wheezing, cough, Starting on Fri06/16/23 at 2350, Check the dose counter on the inhaler to ensure there are doses remaining before administering. Prime by spraying into the air 4 times prior to first use and if not used within 2 weeks. diphenhydrAMINE (BENADRYL) capsule 50 mg 50 mg, Oral, AT BEDTIME PRN, itching, sleep, Starting on Fri06/20/23 at 1409 1427 ($Given - Provider: See Milton RN) fentaNYL (PF) (SUBLIMAZE) injection 50-100 mcg (CANCELED) 50-100 mcg, Intravenous, EVERY 5 MIN PRN, severe pain, If inadequate response may repeat every 3 min PRN severe pain; when verbally requested by provider., Starting on Fri06/20/23 at 0848, Doses can be exceeded under direct oversight of patient by physician., Intra-procedure 0850 ($Given - Provider: Wilfrido Mcgowan, RN)0854 ($Given - Provider: Wilfrido Mcgowan RN) HYDROcodone-acetaminophe n (NORCO) 5-325 MG per tablet 1 tablet (CANCELED) 1 tablet, Oral, EVERY 6 HOURS PRN, severe pain, Starting on Fri06/21/23 at 0919, Maximum acetaminophen dose from all sources= 75 mg/kg/day not to exceed 4 grams 1201 ($Given - Provider: See Milton RN)1832 ($Given - Provider: Lucille Day, IFRAH) 0427 ($Given - Provider: Kallie Etienne RN)0958 ($Given - Provider: Lucille Day, RN) HYDROcodone-acetaminophe n (NORCO) 5-325 MG per tablet 1-2 tablet 1-2 tablet, Oral, EVERY 6 HOURS PRN, severe pain, Starting on Fri06/22/23 at 1139, Maximum acetaminophen dose from all sources= 75 mg/kg/day not to exceed 4 grams 1148 ($Given - Provider: Lucille Day, IFRAH)1800 ($Given - Provider: Lucille Day, IFRAH) HYDROmorphone (PF) (DILAUDID) injection 0.5 mg (CANCELED) 0.5 mg, Intravenous, EVERY 4 HOURS PRN, moderate pain, Starting on 06/16/23 at 2319 0046 ($Given - Provider: Irma Santillan, IFRAH)0444 ($Given - Provider: Irma Santillan, IFRAH)1011 ($Given - Provider: See Milton, IFRAH)1354 ($Given - Provider: See Milton RN)2156 ($Given - Provider: Wilian Fischer RN) 0447 ($Given - Provider: Chari Kwon RN)0830 ($Given - Provider: See Milton, IFRAH)1246 ($Given - Provider: See Milton RN)1636 ($Given - Provider: Lucille Day RN)2041 ($Given - Provider: Kallie Etienne, IFRAH) 0042 ($Given - Provider: Kallie Etienne, IFRAH) hydrOXYzine (ATARAX) tablet 25 mg(Linked Group 2) 25 mg, Oral, EVERY 6 HOURS PRN, other, adjuvant pain, Starting on 06/21/23 at 0922, Start with 25 mg for the initial dose. If the 25 mg dose is ineffective, increase to the 50 mg dose at the next administration time and maintain further doses at 50 mg. If the 50 mg dose is ineffective, contact the provider. 0958 (See Alternativ e - Provider: Lucille Day RN)1800 (See Alternative - Provider: Lucille Day RN) hydrOXYzine (ATARAX) tablet 50 mg(Linked Group 2) 50 mg, Oral, EVERY 6 HOURS PRN, other, adjuvant pain, Starting on 06/21/23 at 0922, Start with 25 mg for the initial dose. If the 25 mg dose is ineffective, increase to the 50 mg dose at the next administration time and maintain further doses at 50 mg. If the 50 mg dose is ineffective, contact the provider. 0958 ($Given - Provider: Lucille Dya RN)1800 ($Given - Provider: Lucille Day RN) methocarbamol (ROBAXIN) tablet 500 mg 500 mg, Oral, 4 TIMES DAILY PRN, muscle spasms, Starting on Fri06/17/23 at 1057 1149 ($Given - Provider: See Milton, IFRAH)1721 ($Given - Provider: Wilian Fischer, IFRAH)2207 ($Given - Provider: Wilian Fischer, IFRAH) 0447 ($Given - Provider: Chari Kwon, IFRAH)1201 ($Given - Provider: See Milton, IFRAH)1541 ($Given - Provider: Lucille Day RN) 0816 ($Given - Provider: Lucille Day, IFRAH)1305 ($Given - Provider: Lucille Day, RN)1800 ($Given - Provider: Lucille Day, RN) midazolam (VERSED) injection 0.5-2 mg (CANCELED) 0.5-2 mg, Intravenous, EVERY 4 MIN PRN, sedation, If inadequate response may repeat every 4 minutes PRN sedation until desired response; when verbally requested by provider., Starting on Fri06/20/23 at 0848, Doses can be exceeded under direct oversight of patient by physician. This drug may cause significant respiratory depression. Monitor respiratory status and vital signs carefully for 1 hour after each dose., Intra-procedure 0849 ($Given - Provider: Wilfrido Mcgowan RN)0854 ($Given - Provider: Wilfrido Mcgowan RN)0858 ($Given - Provider: Wilfrido Mcgowan RN) naloxone (NARCAN) injection 0.2 mg(Linked Group 3) 0.2 mg, Intravenous, EVERY 2 MIN PRN, opioid reversal, Starting on Fri06/17/23 at 1123, Administer intravenous route when available and notify provider when administered. For unintended sedation or respiratory depression if all of the below criteria are met: ~ respiratory rate LESS than or EQUAL to 8. ~SaO2 less than 92% and or/end-tidal CO2 is greater than 50. ~ the patient is receiving an opioid, has unintended sedations assessed as RASS (-3), and is currently not on mechanical ventilation. RASS scale moderate (-3) is movement or eye opening to voice but no eye contact. Patient Monitoring Once the patient has demonstrated a response to the naloxone, continue to monitor respiratory rate, depth, oxygen saturation and end-tidal CO2 (if available) every 15 minutes x 2, then every 30 minutes x 2, then every 1 hour x 1 after each naloxone dose. Consider transfer to ICU if patient respiratory parameters have not improved after 4 naloxone doses. naloxone (NARCAN) injection 0.2 mg(Linked Group 3) 0.2 mg, Intramuscular, EVERY 2 MIN PRN, opioid reversal, Starting on Fri06/17/23 at 1123, Administer intramuscular if an intravenous route is not available and notify provider when administered. For unintended sedation or respiratory depression if all of the below criteria are met: ~ respiratory rate LESS than or EQUAL to 8. ~SaO2 less than 92% and or/end-tidal CO2 is greater than 50. ~ the patient is receiving an opioid, has unintended sedations assessed as RASS (-3), and is currently not on mechanical ventilation. RASS scale moderate (-3) is movement or eye opening to voice but no eye contact. Patient Monitoring Once the patient has demonstrated a response to the naloxone, continue to monitor respiratory rate, depth, oxygen saturation and end-tidal CO2 (if available) every 15 minutes x 2, then every 30 minutes x 2, then every 1 hour x 1 after each naloxone dose. Consider transfer to ICU if patient respiratory parameters have not improved after 4 naloxone doses. naloxone (NARCAN) injection 0.4 mg(Linked Group 3) 0.4 mg, Intravenous, EVERY 2 MIN PRN, opioid reversal, Starting on Fri06/17/23 at 1123, Administer intravenous route when available and notify provider when administered. For unintended sedation or respiratory depression if all of the below criteria are met: ~ respiratory rate LESS than or EQUAL to 8. ~ SaO2 less than 92% and or/end-tidal CO2 is greater than 50. ~ the patient is receiving an opioid, has unintended sedation assessed as RASS (-4) or (-5) and patient is currently not on mechanical ventilation. RASS scale (-4) is deep sedation with no response to voice but movement or eye opening to physical stimulation. RASS scale (-5) is unarousable. Patient Monitoring Once the patient has demonstrated a response to the naloxone, continue to monitor respiratory rate, depth, oxygen saturation and end-tidal CO2 (if available) every 15 minutes x 2, then every 30 minutes x 2, then every 1 hour x 1 after each naloxone dose. Consider transfer to ICU if patient respiratory parameters have not improved after 4 naloxone doses. naloxone (NARCAN) injection 0.4 mg(Linked Group 3) 0.4 mg, Intramuscular, EVERY 2 MIN PRN, opioid reversal, Starting on Fri06/17/23 at 1123, Administer intramuscular if an intravenous route is not available and notify provider when administered. For unintended sedation or respiratory depression if all of the below criteria are met: ~ respiratory rate LESS than or EQUAL to 8. ~ SaO2 less than 92% and or/end-tidal CO2 is greater than 50. ~ the patient is receiving an opioid, has unintended sedation assessed as RASS (-4) or (-5) and patient is currently not on mechanical ventilation. RASS scale (-4) is deep sedation with no response to voice but movement or eye opening to physical stimulation. RASS scale (-5) is unarousable. Patient Monitoring Once the patient has demonstrated a response to the naloxone, continue to monitor respiratory rate, depth, oxygen saturation and end-tidal CO2 (if available) every 15 minutes x 2, then every 30 minutes x 2, then every 1 hour x 1 after each naloxone dose. Consider transfer to ICU if patient respiratory parameters have not improved after 4 naloxone doses. ondansetron (ZOFRAN) injection 4 mg 4 mg, Intravenous, EVERY 6 HOURS PRN, nausea, vomiting, Administer over 2-5 Minutes, Starting on Fri06/17/23 at 0843, Irritant. 0054 ($Given - Provider: Irma Santillan RN)2235 ($Given - Provider: Wilian Fischer RN) 1209 ($Given - Provider: See Milton, IFRAH) ondansetron (ZOFRAN) injection 4 mg (COMPLETED) 4 mg, Intravenous, ONCE PRN, nausea, vomiting, Administer over 2-5 Minutes, Starting on Fri06/20/23 at 0757, For 1 dose, Give in ENDO pre procedure prep area. Irritant., Pre-procedure 0807 ($Given - Provider: Wilfrido Mcgowan RN) sodium chloride 0.9 % infusion (COMPLETED) Intravenous, CONTINUOUS PRN, Intra-procedure, Starting on Fri06/20/23 at 0846, Until Fri06/20/23 at 0944 0846 ($New Bag - Provider: Wilfrido Mcgowan RN - Comment: GREGORY) Linked Groups Order Group 1: predniSONE (DELTASONE) tablet 60 mgJump to med 60 mg, Oral, DAILY, First dose on Fri06/22/23 at 0900, For 3 doses, 1st order in taper Followed by predniSONE (DELTASONE) tablet 40 mgJump to med 40 mg, Oral, DAILY, First dose on Fri06/25/23 at 0900, For 3 doses, 2nd order in taper Followed by predniSONE (DELTASONE) tablet 20 mgJump to med 20 mg, Oral, DAILY, First dose on Fri06/28/23 at 0900, For 3 doses, 3rd order in taper Followed by predniSONE (DELTASONE) tablet 10 mgJump to med 10 mg, Oral, DAILY, First dose on Fri07/01/23 at 0900, For 4 doses, 4th order in taper Group 2: hydrOXYzine (ATARAX) tablet 25 mgJump to med 25 mg, Oral, EVERY 6 HOURS PRN, other, adjuvant pain, Starting on Fri06/21/23 at 0922, Start with 25 mg for the initial dose. If the 25 mg dose is ineffective, increase to the 50 mg dose at the next administration time and maintain further doses at 50 mg. If the 50 mg dose is ineffective, contact the provider. Or hydrOXYzine (ATARAX) tablet 50 mgJump to med 50 mg, Oral, EVERY 6 HOURS PRN, other, adjuvant pain, Starting on Fri06/21/23 at 0922, Start with 25 mg for the initial dose. If the 25 mg dose is ineffective, increase to the 50 mg dose at the next administration time and maintain further doses at 50 mg. If the 50 mg dose is ineffective, contact the provider. Group 3: naloxone (NARCAN) injection 0.2 mgJump to med 0.2 mg, Intravenous, EVERY 2 MIN PRN, opioid reversal, Starting on Fri06/17/23 at 1123, Administer intravenous route when available and notify provider when administered. For unintended sedation or respiratory depression if all of the below criteria are met: ~ respiratory rate LESS than or EQUAL to 8. ~SaO2 less than 92% and or/end-tidal CO2 is greater than 50. ~ the patient is receiving an opioid, has unintended sedations assessed as RASS (-3), and is currently not on mechanical ventilation. RASS scale moderate (-3) is movement or eye opening to voice but no eye contact. Patient Monitoring Once the patient has demonstrated a response to the naloxone, continue to monitor respiratory rate, depth, oxygen saturation and end-tidal CO2 (if available) every 15 minutes x 2, then every 30 minutes x 2, then every 1 hour x 1 after each naloxone dose. Consider transfer to ICU if patient respiratory parameters have not improved after 4 naloxone doses. Or naloxone (NARCAN) injection 0.4 mgJump to med 0.4 mg, Intravenous, EVERY 2 MIN PRN, opioid reversal, Starting on Fri06/17/23 at 1123, Administer intravenous route when available and notify provider when administered. For unintended sedation or respiratory depression if all of the below criteria are met: ~ respiratory rate LESS than or EQUAL to 8. ~ SaO2 less than 92% and or/end-tidal CO2 is greater than 50. ~ the patient is receiving an opioid, has unintended sedation assessed as RASS (-4) or (-5) and patient is currently not on mechanical ventilation. RASS scale (-4) is deep sedation with no response to voice but movement or eye opening to physical stimulation. RASS scale (-5) is unarousable. Patient Monitoring Once the patient has demonstrated a response to the naloxone, continue to monitor respiratory rate, depth, oxygen saturation and end-tidal CO2 (if available) every 15 minutes x 2, then every 30 minutes x 2, then every 1 hour x 1 after each naloxone dose. Consider transfer to ICU if patient respiratory parameters have not improved after 4 naloxone doses. Or naloxone (NARCAN) injection 0.2 mgJump to med 0.2 mg, Intramuscular, EVERY 2 MIN PRN, opioid reversal, Starting on Fri06/17/23 at 1123, Administer intramuscular if an intravenous route is not available and notify provider when administered. For unintended sedation or respiratory depression if all of the below criteria are met: ~ respiratory rate LESS than or EQUAL to 8. ~SaO2 less than 92% and or/end-tidal CO2 is greater than 50. ~ the patient is receiving an opioid, has unintended sedations assessed as RASS (-3), and is currently not on mechanical ventilation. RASS scale moderate (-3) is movement or eye opening to voice but no eye contact. Patient Monitoring Once the patient has demonstrated a response to the naloxone, continue to monitor respiratory rate, depth, oxygen saturation and end-tidal CO2 (if available) every 15 minutes x 2, then every 30 minutes x 2, then every 1 hour x 1 after each naloxone dose. Consider transfer to ICU if patient respiratory parameters have not improved after 4 naloxone doses. Or naloxone (NARCAN) injection 0.4 mgJump to med 0.4 mg, Intramuscular, EVERY 2 MIN PRN, opioid reversal, Starting on Fri06/17/23 at 1123, Administer intramuscular if an intravenous route is not available and notify provider when administered. For unintended sedation or respiratory depression if all of the below criteria are met: ~ respiratory rate LESS than or EQUAL to 8. ~ SaO2 less than 92% and or/end-tidal CO2 is greater than 50. ~ the patient is receiving an opioid, has unintended sedation assessed as RASS (-4) or (-5) and patient is currently not on mechanical ventilation. RASS scale (-4) is deep sedation with no response to voice but movement or eye opening to physical stimulation. RASS scale (-5) is unarousable. Patient Monitoring Once the patient has demonstrated a response to the naloxone, continue to monitor respiratory rate, depth, oxygen saturation and end-tidal CO2 (if available) every 15 minutes x 2, then every 30 minutes x 2, then every 1 hour x 1 after each naloxone dose. Consider transfer to ICU if patient respiratory parameters have not improved after 4 naloxone doses. documented in this encounter Additional Health Concerns Infection Onset Date Last Indicated Resolved Time Rule Out C-difficile 06/16/2023 06/16/2023 023 6:46 PM CDT Rule Out C-difficile 06/16/2023 06/17/2023 023 6:04 PM CDT documented as of this encounter Care Teams [employer] Relationship Specialty Start Date End Date Andrew Israel PA-C [address] [place] [address] PCP - General 05/15/23 documented as of this encounter
--- OUTSIDE RECORDS SUMMARY | 2023-09-17 14:35 | XMS_ITS | Encounter Summary ---
Author Name Unknown Organization [facility] Address [address] [place] [address] Care Team Providers Care Horse Racing Analyst Name Role Phone Andrew Israel PA-C Primary Care Provider [phone] Reason for Visit * Reason Comments Diarrhea * Auth/Cert (Routine) Specialty Diagnoses / Procedures Referred By Contac t Referred To Contact EMERGENCY MEDICINE Diagnoses Acute colitis Acute colitis Emergency Dept [address] [place] [address] Referral ID Status Reason Start Date Expiration Date Visits Re quested Visits Authorized [id number] 1 1 Encounter Details Date Type Department Care Team (Late st Contact Info) Description 06/16/2023 5:22 PM CDT - 06/22/2023 6:15 PM CDT Hospital Encounter [facility] [address] [place] [address] Ruma Ponce MD [facility] [address] [address] Miryam Sebastian DO [facility] [address] [facility] [address] [facility] [place] [address] Aldo Flores MD [address], [facility] [place] [address] Jesus Angulo MD [facility] [address] [address] [address] [address] [place] [address] Abdominal pain, unspecified abdominal location (Primary Dx); Acute colitis; Crohn's disease with complication, unspecified gastrointestinal tract location (H); Pyuria Discharge Disposition: Home or Self Care Social [...] Sign Reading Time Taken Comments Blood Pressure 130/85 06/22/2023 8:19 AM CDT Pulse 82 06/22/2023 8:19 AM CDT Temperature 36.7 ??C (98 ??F) 06/22/2023 8:19 AM CDT Respiratory Rate 16 06/22/2023 8:19 AM CDT Oxygen Saturation 96% 06/22/2023 8:19 AM CDT Inhaled Oxygen Concentration - - Weight 69.3 kg (152 lb 12.5 oz) 06/19/2023 9:00 AM CDT Height - - Body Mass Index 27.06 03/31/2023 10:48 PM CDT documented in this encounter Discharge Summaries * Philipp Bynum MD - 06/22/2023 10:35 AM CDT [facility] Hospitalist Discharge Summary Date of Admission: 06/16/2023 [...] Recent 3 CBC's: Recent Labs Lab Test 06/20/2362106/17/2371706/16/23 1737 WBC 6.7 4.0 5.7 HGB 12.5 12.4 13.9 MCV 84 86 86 PLT 224 188 209 Most Recent 3 BMP's: Recent Labs Lab Test 06/20/2362106/17/2371706/16/23 1737 NA 141 141 139 POTASSIUM 3.8 4.3 3.6 CHLORIDE 104 109* 103 CO2 28 22 23 BUN 9.2 6.4* 7.4* CR 1.00* [...] EXAM: CT ABDOMEN PELVIS W CONTRAST LOCATION: [facility] DATE: 06/16/2023 INDICATION: hx Crohn's, RUQ epigastric [...] call with any questions. Philipp Bynum MD [facility] [address] [facility] [address] Physical Exam Vital Signs: Temp: 98 ??F [...] be sent through Care Everywhere. * Hemorrhoids (Belgian) documented in this encounter Medications at Time [...] Harrington MD - 06/21/2023 3:57 PM CDT [facility] Medicine Progress Note - GI Date of [...] Clinically Significant Risk Factors Stan Harrington MD, [facility] Securely message with [employer] (more info) Text page via [employer] Paging/Directory Interval History The patient reports no [...] Pulse: 73 Resp: 18 SpO2: 97 % O6Qubisx: None (Room air) Weight: 152 lbs 12.46 [...] shift. Family was at bedside, * Philipp yBnum MD - 06/21/2023 9:18 AM CDT [facility] Medicine Progress Note - Hospitalist Service [...] bedside nursing Philipp Bynum MD Hospitalist Service [facility] Securely message with [employer] (more info) Text page via [employer] Paging/Directory Interval History Patient has started to advance her diet. She still has ongoing pain but overall seems to be doing better. Has not had any bowel movements but has not been eating much yet. Has had minimal flatus. Physical Exam Vital Signs: Temp: 98.6 ??F (37 ??C) Temp src: Oral BP: (!) 148/85 Pulse: 73 Resp: 18 SpO2: 97 % U8Qiwjdm: None (Room air) Weight: 152 lbs 12.46 [...] Bynum MD - 06/20/2023 1:04 PM CDT [facility] Medicine Progress Note - Hospitalist Service [...] her colonoscopy Philipp Bynum MD Hospitalist Service [facility] Securely message with [employer] (more info) Text page via [facility] Paging/Directory Interval History Patient is new to [...] past 24 hour(s)). * Betty Olivares APRN FINANCIAL AUDITOR - 06/19/2023 11:17 AM CDT Images from [...] lab results: Recent Labs Lab Test 06/17/23 0718 06/16/23 1737 04/02/23 0622 WBC 4.0 5.7 7.3 HGB 12.4 13.9 8.6* MCV 86 86 91 PLT 188 209 339 Recent Labs Lab Test 06/17/23 0718 06/16/23 1737 04/02/23 0622 POTASSIUM 4.3 3.6 3.7 CHLORIDE 109* 103 110* CO2 26 BUN 6.4* 7.4* 13.4 ANIONGAP 10 [...] in counseling/coordination of care. Betty Olivares CNP [facility] ([facility]) [phone] * Valdez Gallardo MD - 06/19/2023 10:34 AM CDT [facility] Medicine Progress Note - Hospitalist Service [...] blood in the stool but mucus present. [facility] consulted from the ED, recommended starting IV [...] next 1-2 more days Valdez Gallardo MD, Hospitalist Service [facility] Securely message with [employer] (more info) Text page via [facility] Paging/Directory Interval History Continuing medicine service care [...] (from the past 24 hour(s)). * Jelani Sullivan RD - 06/19/2023 7:56 AM CDT CLINICAL [...] 56.1 kg Adjusted BW Estimated Energy Needs: 6579-5268 kcals (25-30 Kcal/Kg) Justification: maintenance Estimated Protein Needs: 56-67 grams protein (1-1.2 g pro/Kg) Justification: maintenance Estimated Fluid Needs: 2852-6543 mL (1 mL/Kcal) Justification: maintenance MALNUTRITION: % [...] Peguero RDN, LD Clinical Dietitian 3rd floor/ICU: [phone] All other floors: [phone] Weekend/holiday: [phone] Office: [phone] * Valdez Gallardo MD - 06/18/2023 11:09 AM CDT [facility] Medicine Progress Note - Hospitalist Service [...] days Valdez Gallardo MD, MD Hospitalist Service [facility] Securely message with [employer] (more info) Text page via [employer] Paging/Directory Interval History Continuing medicine service care [...] past 24 hour(s)). * Betty Olivares APRN FINANCIAL AUDITOR - 06/18/2023 10:28 AM CDT Images from [...] lab results: Recent Labs Lab Test 06/17/23 0718 06/16/23173604/02/23 0622 WBC 4.0 5.7 7.3 HGB 12.4 13.9 8.6* MCV 86 86 91 PLT 188 209 339 Recent Labs Lab Test 06/17/23 0718 06/16/23 1737 04/02/23 0622 POTASSIUM 4.3 3.6 3.7 CHLORIDE 109* 103 110* CO2 26 BUN 6.4* 7.4* 13.4 ANIONGAP 10 [...] in counseling/coordination of care. Betty Olivares CNP [facility] ([facility]) [phone] * Valdez Gallardo MD - 06/18/2023 7:34 [...] Gallardo MD - 06/17/2023 10:16 AM CDT [facility] Medicine Progress Note - Hospitalist Service [...] days Valdez Gallardo MD, MD Hospitalist Service [facility] Securely message with [employer] (more info) Text page via [employer] Paging/Directory Interval History I assume medicine service [...] EXAM: CT ABDOMEN PELVIS W CONTRAST LOCATION: [facility] DATE: 06/16/2023 INDICATION: hx Crohn's, RUQ epigastric [...] Mace RN - 06/17/2023 9:47 AM CDT [facility] ED Boarding Nurse Handoff Addendum Report: Date/time: [...] Flores MD - 06/16/2023 10:57 PM CDT [facility] History and Physical - Hospitalist Service Date [...] not collected yet. ED physician spoke with [facility], recommended starting IV methylprednisolone every 8 hours. [...] Date: 06/18/2023 Aldo Flores MD Hospitalist Service [facility] Securely message with Armed[employer]illa (more info) Text page via [facility] Paging/Directory Chief Complaint Abdominal pain, diarrhea History [...] EXAM: CT ABDOMEN PELVIS W CONTRAST LOCATION: [facility] DATE: 06/16/2023 INDICATION: hx Crohn's, RUQ epigastric [...] encounter Consult Notes * Betty Olivares APRN FINANCIAL AUDITOR - 06/17/2023 8:16 AM CDTAssociated Order(s): GASTROENTEROLOGY IP CONSULT Images from the original note were not included. GASTROENTEROLOGY CONSULTATION Hortensia Buitrago [address] [place] [id number] 63 year old female Admission Date/Time: 06/16/2023 Primary Care Provider: Andrew Israel We were asked to see the [...] lab test results. Recent Labs Lab Test 06/17/2371706/16/23173604/02/23621 WBC 4.0 5.7 7.3 HGB 12.4 13.9 8.6* MCV 86 86 91 PLT 188 209 339 Recent Labs Lab Test 06/17/2371706/16/23173604/02/2322 NA 141 139 145 POTASSIUM 4.3 3.6 3.7 CHLORIDE 109* 103 110* CO2 23 26 BUN 6.4* 7.4* 13.4 ANIONGAP 10 13 9 DAJA 9.2 9.4 8.8 Recent Labs Lab Test 06/16/23 1750 06/16/23173603/31/23 1717 03/31/23 1608 03/19/23 1816 03/19/23 1530 [...] including patient evaluation, reviewing documentation/test results, and bordereau clerk. Thank you for asking us to participate in the care of this patient. Betty Olivares, DELANEY [facility] ([facility]) [phone] Associated attestation - Veronika Glass MD - 06/17/2023 5:18 PM CDT [...] spent on patient care activities 25 minutes Veroniak Glass MD documented in this encounter ED Notes * Jana Haque RN - 06/16/2023 8:41 PM CDT [facility] ED Nurse Handoff Report ED Chief [...] independent. Lift room needed: No. Bariatric: No Gate Agent Needed: No Isolation: Yes. Infection: Not Applicable [...] Bilirubin Urine Negative Ketones Urine Negative Specific [place] Urine 1.013 Blood Urine Negative pH Urine [...] in March. Triage Assessment Row Name 06/16/23 7008 Triage Assessment (Adult) Airway WDL WDL Respiratory [...] leaving the hospital. Manuel Rossi MD 06/16/23 1731 * Ruma Ponce MD - 06/16/2023 5:14 [...] 3 months ago. Patient recently went to [place] but denies any other travel. Independent Historian: [...] Bilirubin Urine Negative Ketones Urine Negative Specific [place] Urine 1.013 Blood Urine Negative pH Urine [...] flush (59 mLs Intravenous $Given 06/16/231801) Assessments: 194 I obtained history and examined the patient as noted above. Independent Interpretation (X-rays, CTs, rhythm strip): none Consultations/Discussion of Management or Tests: [address] Sheriff from [facility] about the care and treatment of the patient. [address] Flores of the hospitalist service who accepts the patient for admission. Social Determinants of Health affecting care: None Disposition: The patient was admitted to the hospital under the care of Dr. Flores. Impression & Plan [facility] Diagnoses: None Medical Decision Making: I found [...] Prescriptions No medications on file Scribe Disclosure: Augustin Moise Alves, am serving as a scribe at 6:44 PM on 06/16/2023 to document services personally performed by Ruma Ponce MD based on my observations and the provider's statements to me. 06/16/2023 Ruma Ponce MD [place], Cheri Lee, MD 06/16/23 8853 documented in this encounter Miscellaneous Notes * [...] x4 pain managed by IV Dilaudid and [place], Independent in the room, voidingw/o difficulty, passing [...] Due for BM. Patient frustrated that MNCAMILO OLU stated he was unable to determine cause of pain. * Plan of Care - See Milton RN - 06/21/2023 1:06 PM CDT Goal Outcome Evaluation: Pt alert and orientated x4, pleasant. Up independent in room, ambulated in hallways x2 this shift. Now on regular diet. L/S clear. PIV S/L patent. [place] and then dilaudid given for pain, as [...] MD Physician Advisor Utilization Review/ Case Management [facility]. * Plan of Care - See [...] - 06/20/2023 5:42 AM CDT Shift from [id number] Inpatient Progress Note: For complete assessment see [...] monitoring. * Plan of Care - Christa Bowen, IFRAH - 06/17/2023 6:30 AM CDT [facility] ED Boarding Nurse Handoff Addendum Report: Date/time: [...] Nguyễn RN * Pharmacy-Admission Medication History - Cra Kramer RPH - 06/16/2023 9:26 PM CDT Pharmacist Admission Medication History Admission medication history is complete. The information provided in this note is only as accurateas the sources available at the time of the update. 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 Case: [id number] ? Authorizing Provider: ??Link, Veronika Downing MD ?Collected: ? 06/20/2023 09:04 AM ? Ordering Location: ? [facility] ?Received: ?06/20/2023 09:19 AM ? [facility] [place] ? Pathologist: ? Cecile St MD PhD [...] 0.2-0.5 cm. Entirely submitted in one cassette. ([facility]) 06/23/2023 11:42 AM CDT LABORATORY Microscopic Description Microscopic examination was performed. 06/23/2023 11:42 AM CDT LABORATORY Performing Labs The technical component of this testing was completed at [facility] 06/23/2023 11:42 AM CDT LABORATORY Case Images 06/23/2023 11:42 AM CDT LABORATORY Biopsy COLON STRUCTURE / Unknown 06/20/2023 9:04 AM CDT 06/20/2023 9:19 AM CDT Veronika [facility] [place] [facility] Acute Care Lab [address] [facility] Lab (1st floor, no room number) [place] [address], [facility] [phone] * COLONOSCOPY (06/20/2023 8:38 AM CDT) COLONOSCOPY [facility] Patient Name: Hortensia Buitrago ?Procedure Date: [...] and ?oxygen saturations were monitored continuously. The ?Markerly Pediatric Colonoscope Model #[id number]-OT285Q, ?Endora #253, SN #[id number] was introduced through the ?anus and advanced [...] Note Initiated On: 06/20/2023 8:38 AM MRN: ?[id number] Procedure Date: ? 06/20/2023 8:38:02 AM Total [...] NRBCs 0.0 10e3/uL 06/20/2023 6:38 AM CDT [facility] Blood STRUCTURE OF LEFT UPPER LIMB / Unknown Venipuncture / Unknown 06/20/2023 6:22 AM CDT 06/20/2023 6:28 AM CDT Al Berny Gallardo MD LAB - BLOOD ORDER NATALIIA [facility] Acute Care Lab [address] [facility] Lab (1st floor, no room number) [place] [address], [facility] [phone] * (ABNORMAL) Basic metabolic panel (06/20/2023 6:22 AM CDT) Sodium 141 135 - 145 mmol/L 06/20/2023 [...] MD LAB - BLOOD ORDER NATALIIA LABORATORY [facility] Acute Care Lab [address] Lab (1st floor, no room number) [place] [address], [place] [phone] * Calprotectin Feces (06/17/2023 2:20 PM CDT) Calprotectin Feces 30.1 0.0 - 49.9 mg/kg 06/18/2023 12:45 PM CDT [facility] SPECIAL[facility] CORE/PROT/END O Comment:Normal Stool RECTAL CONTENTS / Unknown Non-blood Collection / Unknown 06/17/2023 2:20 PM CDT 06/17/2023 2:25 PM CDT Aldo Flores MD LAB - STOOLS ORDERAB LES [facility] SPECIALTY CORE/PROT/ENDO [facility] Specialty Core/Prot/Endo [address] [facility] [address] [facility], [address] [place] [address], [facility] [phone] * C. difficile Toxin B PCR with [...] LABORATORY - 06/17/2023 6:04 PM CDT The EnGeneIC Xpert C. difficile Assay, performed on the [employer] Systems, is a qualitative in vitro [...] - MICRO GENERAL ORDERABLES [facility] IDD LABORATORY [facility] Inf. Diseases Diag. Lab [address] [facility], [address] [place] [address], [facility] [phone] * Enteric Bacteria and Virus Panel PCR [...] PM CDT Assay performed using the FDA-cleared Arrayent HealthArray GI Panel from [employer] ??A negative result should not rule [...] by the Infectious Diseases Diagnostic Laboratory at [facility]. This laboratory is certified under the Clinical Laboratory Improvement Amendments of 1988 (CLIA-88) as qualified to perform high complexity clinical laboratory testing. Ruma Ponce MD LAB - MICRO GENERAL ORDERABLES [facility] Inf. Diseases Diag. Lab [address] [facility], [address] [place] [address], [facility] [phone] * CBC with platelets (06/17/2023 7:18 AM CDT) Pathologist [facility] WBC Count 4.0 4.0 - 11.0 10e3/uL [...] LAB - BLOOD ORDERABL ES RH LABORATORY [facility] Acute Care Lab [address] Lab (1st floor, no room number) [place] [address], [facility] [phone] * (ABNORMAL) Basic metabolic panel (06/17/2023 7:18 AM CDT) Sodium 141 135 - 145 mmol/L 06/17/2023 7:56 AM CDT LABORATORY Comment:Reference intervals for this [...] MD LAB - BLOOD ORDERABL ES LABORATORY [facility] Acute Care Lab [address] Lab (1st floor, no room number) [place] [address], [facility] [phone] * CT Abdomen Pelvis w Contrast (06/16/2023 [...] EXAM: CT ABDOMEN PELVIS W CONTRAST LOCATION: [facility] DATE: 06/16/2023 INDICATION: hx Crohn's, RUQ epigastric [...] EXAM: CT ABDOMEN PELVIS W CONTRAST LOCATION: [facility] DATE: 06/16/2023 INDICATION: hx Crohn's, RUQ epigastric [...] (ABNORMAL) Urine Culture (06/16/2023 5:50 PM CDT) Pathologist [facility] Culture 50,000-100,000 CFU/mL Escherichia coli(A) MAMIE 06/18/2023 [...] coli Cefazolin MAMIE <=4 ug/mL: Susceptible Comment:Cefazolin ID C breakpoints are for the treatment of [...] - MICRO GENERAL ORDERABLES [facility] ID[facility]ORAT[facility] Inf. Diseases Diag. Lab [address] [facility], [address] [place] [address], [facility] [phone] * (ABNORMAL) UA with Microscopic reflex to [...] 06/16/2023 6:16 PM CDT [facility] Specific [place] Urine 1.013 1.003 - 1.035 06/16/2023 6:16 PM CDT [facility] Blood Urine Negative Negative 06/16/2023 6:16 PM CDT [facility] pH Urine 5.0 5.0 - 7.0 06/16/2023 6:16 PM CDT [facility] Protein Albumin Urine Negative Negative mg/dL 06/16/2023 6:16 PM CDT [facility] Urobilinogen Urine Normal Normal, 2.0 mg/dL 06/16/2023 6:16 PM CDT [facility] Nitrite Urine Negative Negative 06/16/2023 6:16 PM CDT [facility] Leukocyte Esterase Urine Small(A) Negative 06/16/2023 6:16 PM CDT [facility] Bacteria Urine Many(A) None Seen /HPF 06/16/2023 6:16 PM CDT [facility] Mucus Urine Present(A) None Seen /LPF 06/16/2023 6:16 PM CDT [facility] RBC Urine 1 <=2 /HPF 06/16/2023 6:16 PM CDT [facility] WBC Urine 7(H) <=5 /HPF 06/16/2023 6:16 PM CDT [facility] Squamous Epithelials Urine <1 <=1 /HPF 06/16/2023 6:16 PM CDT [facility] Urine URINE SPECIMEN OBTAINED BY CLEAN CATCH PROCEDURE / Unknown Non-blood Collection / Unknown 06/16/2023 5:50 PM CDT 06/16/2023 6:05 PM CDT Narrative [facility] - 06/16/2023 6:16 PM CDT Urine Culture not indicated Manuel Rossi MD LAB - URINE ORDER NATALIIA [facility] Care Lab [address] Lab (1st floor, no room number) [place] [address], [facility] [phone] * Extra Red Top Tube (06/16/2023 5:37 PM CDT) Hold Specimen [facility] 06/16/2023 7:02 PM CDT [facility] Blood STRUCTURE OF RIGHT UPPER LIMB / Unknown Venipuncture / Unknown 06/16/2023 5:37 PM CDT 06/16/2023 5:47 PM CDT Ruma Ponce MD LAB - BLOOD ORDERAB LES [facility] Care Lab [address] Lab (1st floor, no room number) [place] [address], [facility] [phone] * Extra Blue Top Tube (06/16/2023 5:37 PM CDT) Hold Specimen [facility] 06/16/2023 7:02 PM CDT [facility] Blood STRUCTURE OF RIGHT UPPER LIMB / Unknown Venipuncture / Unknown 06/16/2023 5:37 PM CDT 06/16/2023 5:47 PM CDT Ruma Ponce MD LAB - BLOOD ORDERAB LES [facility] Care Lab [address] Lab (1st floor, no room number) [place] [address], [facility] [phone] * CBC with platelets and differential (06/16/2023 5:37 PM CDT) [facility] Signature WBC Count 5.7 4.0 - 11.0 10e3/uL 06/16/2023 5:50 PM CDT [facility] LAB[facility] RBC Count 5.02 3.80 - 5.20 [...] Rossi MD LAB - BLOOD ORDER NATALIIA [facility] Acute Care Lab [address] Lab (1st floor, no room number) [place] [address], [facility] [phone] * CRP inflammation (06/16/2023 5:37 PM CDT) CRP Inflammation <3.00 <5.00 mg/L 06/16/20 6:19 PM CDT [facility] LAB[facility] Blood STRUCTURE OF RIGHT UPPER LIMB / Unknown Venipuncture / Unknown 06/16/2023 5:37 PM CDT 06/16/2023 5:47 PM CDT Manuel Rossi MD LAB - BLOOD ORDER NATALIIA [facility] Acute Care Lab [address] Lab (1st floor, no room number) [place] [address], [facility] [phone] * Erythrocyte sedimentation rate auto (06/16/2023 5:37 PM CDT) Erythrocyte Sedimentation Rate 5 0 - 30 mm/hr 06/16/2023 6:27 PM CDT [facility] Blood STRUCTURE OF RIGHT UPPER LIMB / Unknown Venipuncture / Unknown 06/16/2023 5:37 PM CDT 06/16/2023 5:47 PM CDT Manuel Rossi MD LAB - BLOOD ORDER NATALIIA LABORATORY [facility] Acute Care Lab [address] Lab (1st floor, no room number) [place] [address], [facility] [phone] * Lipase (06/16/2023 5:37 PM CDT) Lipase 27 13 - 60 U/L 06/16/2023 6:19 PM CDT LABORATORY Blood STRUCTURE OF RIGHT UPPER LIMB / Unknown Venipuncture / Unknown 06/16/2023 5:37 PM CDT 06/16/2023 5:47 PM CDT Manuel Rossi MD LAB - BLOOD ORDER NATALIIA Performing Organization Address City/[facility]/ZIP Co de Phone Number [facility] Care Lab [address] Lab (1st floor, no room number) [place] [address], [facility] [phone] * (ABNORMAL) Comprehensive metabolic panel (06/16/2023 5:37 PM CDT) Sodium 139 135 - 145 mmol/L 06/16/2023 6:19 PM CDT [facility] Comment:Reference [...] - 23.0 mg/dL 06/16/2023 6:19 PM CDT [facility] Creatinine 1.08(H) 0.51 - 0.95 mg/dL [...] Rossi MD LAB - BLOOD ORDER NATALIIA [facility] Acute Care Lab [address] Lab (1st floor, no room number) [place] [address], [facility] [phone] documented in this encounter Visit Diagnoses Diagnosis Acute colitis- Primary Other and unspecified noninfectious gastroenteritis and colitis Acute colitis Other and unspecified noninfectious gastroenteritis and colitis Crohn's disease with complication, unspecified gastrointestinal tract location (H) Pyuria Other nonspecific finding on examination of urine Abdominal pain, unspecified abdominal location documented in this encounter Admitting Diagnoses Diagnosis [...] $Given 06/20/2023 7:58 PM CDT 1,000 mg bisacodyl (DULCOLAX) EC tablet 10 mg 10 mg, Oral, ONCE, On Betyt 06/19/23 at 1500, For 1 dose, To be given now. Hold for loose stools unless being administered as part of a bowel prep regimen prior to a procedure. $Given 06/19/2023 4:09 PM CDT 1 0 mg ciprofloxacin (CIPRO) tablet 500 mg Routine, 500 mg, Oral, EVERY 12 HOURS [...] hour after administration, Indications: Urinary Tract Infection $Given 06/20/2023 7:58 PM CDT 500 mg $Given 06/20/2023 10:11 AM CDT 500 mg $Given 06/19/2023 8:47 PM CDT [address] scan flush Intravenous, 100 mL, ONCE, On 06/16/23 at 1805, For 1 dose, This entry is for use by Radiology to intermittently used as a flush in patients receiving a CT scan. $Given 06/16/2023 6:02 PM CDT 59 mLs diphenhydrAMINE (BENADRYL) capsule 50 mg 50 mg, Oral, AT BEDTIME PRN, itching, sleep, Starting on Fri06/20/23 at 1409 $Given 06/20/2023 2:27 PM CDT 50 mg fentaNYL (PF) (SUBLIMAZE) injection 50-100 mcg 50-100 mcg, Intravenous, EVERY 5 MIN PRN, severe pain, If inadequate response may repeat every 3 min PRN severe pain; when verbally requested by provider., Starting on Fri06/20/23 at 0848, Doses can be exceeded under direct oversight of patient by physician., Intra-procedure $Given 06/20/2023 8:54 AM CDT 50 mcg $Given 06/20/2023 8:50 AM CDT 100 mcg HYDROcodone-acetaminophen (NORCO) 5-325 MG per tablet 1 tablet 1 tablet, Oral, EVERY 6 HOURS PRN, severe pain, Starting on 06/21/23 at 0919, Maximum acetaminophen dose from all sources= 75 mg/kg/day not to exceed 4 grams $Given 06/22/2023 9:58 AM CDT 1 tablet $Given 06/22/2023 4:27 AM CDT 1 tablet $Given 06/21/2023 6:32 PM CDT 1 tablet HYDROcodone-acetaminophen (NORCO) 5-325 MG per tablet 1-2 tablet 1-2 tablet, Oral, EVERY 6 HOURS PRN, severe pain, Starting on 06/22/23 at 1139, Maximum acetaminophen dose from all sources= 75 mg/kg/day not to exceed 4 grams $Given 06/22/2023 6:00 PM CDT 2 tablets $Given 06/22/2023 11:48 AM CDT 1 tablet HYDROmorphone (PF) (DILAUDID) injection 0.5 mg 0.5 mg, Intravenous, EVERY 30 MIN PRN, moderate pain, severe pain, Starting on 06/16/23 at 2114, For 3 doses $Given 06/16/2023 10:48 PM CDT 0.5 mg HYDROmorphone (PF) (DILAUDID) injection 0.5 mg 0.5 mg, Intravenous, EVERY 4 HOURS PRN, moderate pain, Starting on 06/16/23 at 2319 $Given 06/22/2023 12:42 AM CDT 0.5 mg $Given 06/21/2023 8:41 PM CDT 0.5 mg $Given 06/21/2023 4:36 PM CDT 0.5 mg hydrOXYzine (ATARAX) tablet 25 mg 25 mg, [...] $Given 06/22/2023 9:58 AM CDT 50 mg inFLIXimab (REMICADE) 300 mg in sodium chloride 0.9 % 275 mL infusion 300 mg, Intravenous, ONCE, On Betty 06/19/23 at 1000, For 1 dose, Administer over 120 Minutes, Monitor for infusion reaction. Decrease rate by 1/2 and notify prescriber if patient experiences headache, fever, chills, nausea, back pain, chest tightness, palpitations, dizziness, sweating, itching, flushing, or irritation at infusion site. STOP the infusion, maintain line patency with NS, and notify the prescriber STAT if the patient experiences hypotension (drop in BP by 20% of baseline), shortness of breath, dyspnea, wheezing, sneezing, or hives. Dose rounded to nearest 100 mg (ordered as 5 mg/kg) Administer through an in-line, sterile, non-pyrogenic, low protein-binding 0.2-0.22 micron filter. Rate/Dose Change 06/19/2023 10:40 AM CDT 68.5 mL/hr $New Bag 06/19/2023 9:52 AM CDT 300 mg 137.5 mL/hr iopamidol (ISOVUE-370) solution 500 mL 500 mL, Intravenous, ONCE, On Fri06/16/23 at 1805, For 1 dose $Given 06/16/2023 6:02 PM CDT 75 mLs lactated ringers BOLUS 1,000 mL Intravenous, 1,000 mL, ONCE, at 1,000 mL/hr, Administer over 1 Hours, On Fri06/16/23 at 1850, For 1 dose $New Bag 06/16/2023 8:43 PM CDT 1,000 mLs 1000 mL/hr methocarbamol (ROBAXIN) tablet 500 mg 500 mg, Oral, 4 TIMES DAILY PRN, muscle spasms, Starting on Fri06/17/23 at 1057 $Given 06/22/2023 6:00 PM CDT 500 mg $Given 06/22/2023 1:05 PM CDT 500 mg $Given 06/22/2023 8:16 AM CDT 500 mg methylPREDNISolone sodium succinate (solu-MEDROL) injection 20 mg 20 mg, Intravenous, EVERY 8 HOURS, First dose on Fri06/16/23 at 1955, Doses greater than or equal to 1000 mg administer over 60 minutes Doses greater than or equal to 500 mg administer over 30-60 minutes Doses greater than or equal to 250 mg administer over 15-30 minutes Doses less than or equal to 125 mg IVP over 3-5 minutes $Given 06/22/2023 4:28 AM CDT 20 mg $Given 06/21/2023 8:34 PM CDT 20 mg $Given 06/21/2023 12:00 PM CDT 20 mg midazolam (VERSED) injection 0.5-2 mg 0.5-2 mg, Intravenous, EVERY 4 MIN PRN, sedation, If inadequate response may repeat every 4 minutes PRN sedation until desired response; when verbally requested by provider., Starting on Fri06/20/23 at 0848, Doses can be exceeded under direct oversight of patient by physician. This drug may cause significant respiratory depression. Monitor respiratory status and vital signs carefully for 1 hour after each dose., Intra-procedure $Given 06/20/2023 8:58 AM CDT 1 mg $Given 06/20/2023 8:54 AM CDT 1 mg $Given 06/20/2023 8:49 AM CDT 2 mg montelukast (SINGULAIR) tablet 10 mg 10 [...] AT BEDTIME, First dose on Fri06/16/23 at 2325 $Given 06/17/2023 12:10 AM CDT 25 mg nortriptyline (PAMELOR) capsule 25 mg 25 mg, Oral, AT BEDTIME, First dose on Fri06/17/23 at 2200 $Given 06/21/2023 10:15 PM CDT 25 mg $Given 06/20/2023 9:55 PM CDT 25 mg $Given 06/19/2023 10:04 PM CDT 25 mg ondansetron (ZOFRAN) injection 4 mg 4 mg, Intravenous, ONCE, Administer over 2-5 Minutes, On Fri06/16/23 at 1735, For 1 dose, Irritant. $Given 06/16/2023 5:42 PM CDT 4 mg ondansetron (ZOFRAN) injection 4 mg 4 mg, Intravenous, EVERY 6 HOURS PRN, nausea, vomiting, Administer over 2-5 Minutes, Starting on Fri06/17/23 at 0843, Irritant. $Given 06/21/2023 12:09 PM CDT 4 mg $Given 06/20/2023 10:35 PM CDT 4 mg $Given 06/20/2023 12:54 AM CDT 4 mg ondansetron (ZOFRAN) injection 4 mg 4 mg, Intravenous, ONCE PRN, nausea, vomiting, Administer over 2-5 Minutes, Starting on Fri06/20/23 at 0757, For 1 dose, Give in ENDO pre procedure prep area. Irritant., Pre-procedure $Given 06/20/2023 8:07 AM CDT 4 mg pantoprazole (PROTONIX) EC tablet 40 mg 40 mg, Oral, 2 TIMES DAILY BEFORE MEALS, First dose on Fri06/17/23 at 0730, DO NOT CRUSH. $Given 06/22/2023 4:37 PM CDT 40 mg $Given 06/22/2023 8:09 AM CDT 40 mg $Given 06/21/2023 4:34 PM CDT 40 mg polyethylene glycol (MIRALAX) powder 238 g 238 g, Oral, ONCE, On Betty 06/19/23 at 1600, For 1 dose, Mix with 64 oz. of Gatorade. At 1700 begin drinking 8 oz. every 15 minutes until gone. $Given 06/19/2023 5:01 PM CDT 238 g predniSONE (DELTASONE) tablet 10 mg 10 mg, [...] 60 mg sodium chloride 0.9 % infusion at 100 mL/hr, Intravenous, CONTINUOUS, Starting on Fri06/16/23 at 2115, Until Fri06/18/23 at 1109 $New Bag 06/18/2023 9:03 AM CDT 100 mL/hr $New Bag 06/18/2023 12:18 AM CDT 100 mL/hr $New Bag 06/17/2023 3:26 PM CDT 100 mL/hr sodium chloride 0.9% BOLUS 1,000 mL Intravenous, 1,000 mL, ONCE, at 1,000 mL/hr, Administer over 1 Hours, On Fri06/16/23 at 1735, For 1 dose $New Bag 06/16/2023 5:40 PM CDT 1,000 mLs 1000 mL/hr traZODone (DESYREL) tablet 200 mg 200 mg, Oral, AT BEDTIME, First dose on Fri06/16/23 at 2325 $Given 06/16/2023 11:51 PM CDT 200 mg traZODone (DESYREL) tablet 200 mg 200 mg, [...] Irma Santillan RN)1144 ($Given - Provider: See Milton RN)195 ($Given - Provider: Wilian Fischer, IFRAH) 0434 ($Given - Provider: Chari Kwon RN)1200 ($Given - Provider: See Milton RN - Comment: 20mg)2033 ($Given - Provider: Kallie Etienne RN) 0428 ($Given - Provider: Kallie Etienne RN) montelukast (SINGULAIR) tablet 10 mg 10 mg, Oral, AT BEDTIME, First dose on Fri06/16/23 at 2355 2155 ($Given - Provider: Wilian Fischer, IFRAH) 2215 ($Given - Provider: Kallie Etienne, IFRAH) nortriptyline (PAMELOR) capsule 25 mg 25 mg, Oral, AT BEDTIME, First dose on Fri06/17/23 at 2200 2155 ($Given - Provider: Wilian Fischer, IFRAH) 2215 ($Given - Provider: Kallie Etienne, IFRAH) pantoprazole (PROTONIX) EC tablet 40 mg 40 mg, Oral, 2 TIMES DAILY BEFORE MEALS, First dose on Fri06/17/23 at 0730, DO NOT CRUSH. 0634 ($Given - Provider: Irma Santillan RN)1713 ($Given - Provider: Wilian Fischer, IFRAH) 0655 ($Given - Provider: Chari Kwon RN)1634 ($Given - Provider: Lucille Day RN) 0809 ($Given - Provider: Lucille Day, IFRAH)1637 ($Given - Provider: Lucille Day, IFRAH) predniSONE [...] in taper 0809 ($Given - Provider: Lucille Day RN) traZODone (DESYREL) tablet 200 mg 200 mg, Oral, AT BEDTIME, First dose on Fri06/17/23 at 2200 2155 ($Given - Provider: Wilian Fischer, IFRAH) 2371 ($Given - Provider: Kallie Etienne RN) PRN Medication Order 06/20/2023 06/21/2023 06/22/2023 acetaminophen (TYLENOL) tablet 500-1,000 mg 500-1,000 mg, Oral, EVERY 6 HOURS PRN, mild pain, Starting on Fri06/16/23 at 2350, Maximum acetaminophen dose from all sources = 75 mg/kg/day not to exceed 4 gram 1354 ($Given - Provider: See Milton RN)1958 ($Given - Provider: Wilian Fischer, RN) 1541 ($Given - Provider: Lucille Day, RN) 0816 ($Given - Provider: Lucille Day, RN) albuterol (PROVENTIL HFA/VENTOLIN HFA) inhaler 2 puff, Inhalation, EVERY 6 HOURS PRN, shortness of breath, wheezing, cough, Starting on 06/16/23 at 2350, Check the dose counter on [...] Intra-procedure 0850 ($Given - Provider: Wilfrido Mcgowan, IFRAH)0854 ($Given - Provider: Wilfrido Mcgowan RN) HYDROcodone-acetaminophe n (NORCO) 5-325 MG per tablet 1 tablet (CANCELED) 1 tablet, Oral, EVERY 6 HOURS PRN, severe pain, Starting on Fri06/21/23 at 0919, Maximum acetaminophen dose from all sources= 75 mg/kg/day not to exceed 4 grams 1201 ($Given - Provider: See Milton RN)1832 ($Given - Provider: Lucille Day, IFRAH) 0427 ($Given - Provider: Kallie Etienne, IFRAH)0958 ($Given - Provider: Lucille Day RN) HYDROcodone-acetaminophe n (NORCO) 5-325 MG per tablet 1-2 tablet 1-2 tablet, Oral, EVERY 6 HOURS PRN, severe pain, Starting on Fri06/22/23 at 1139, Maximum acetaminophen dose from all sources= 75 mg/kg/day not to exceed 4 grams 1148 ($Given - Provider: Lucille Day RN)1800 ($Given - Provider: Lucille Day RN) HYDROmorphone (PF) (DILAUDID) injection 0.5 mg (CANCELED) 0.5 mg, Intravenous, EVERY 4 HOURS PRN, moderate pain, Starting on 06/16/23 at 2319 0046 ($Given - Provider: Irma Santillan RN)0444 ($Given - Provider: Irma Santillan RN)1011 ($Given - Provider: See Milton RN)1354 ($Given - Provider: See Milton, IFRAH)2156 ($Given - Provider: Wilian Fischer RN) 0447 ($Given - Provider: Chari Kwon RN)0830 ($Given - Provider: See Milton, IFRAH)1246 ($Given - Provider: See Milton, IFRAH)1636 ($Given - Provider: Lucille Day RN)2041 ($Given - Provider: Kallie Etienne RN) 0042 ($Given - Provider: Kallie Etienne RN) hydrOXYzine (ATARAX) tablet 25 mg(Linked Group 2) [...] the provider. 0958 ($Given - Provider: Lucille Day RN)1800 ($Given - Provider: Lucille Day RN) methocarbamol (ROBAXIN) tablet 500 mg 500 mg, Oral, 4 TIMES DAILY PRN, muscle spasms, Starting on Fri06/17/23 at 1057 1149 ($Given - Provider: See Milton RN)1721 ($Given - Provider: Wilian Fischer, IFRAH)2207 ($Given - Provider: Wilian Fischer, IFRAH) 0447 ($Given - Provider: Chari Kwon RN)1201 ($Given - Provider: See Milton, IFRAH)1541 ($Given - Provider: Lucille Day, IFRAH) 0816 ($Given - Provider: Lucille Day, RN)1305 ($Given - Provider: Lucille Day, IFRAH)1800 ($Given - Provider: Lucille Day, IFRAH) midazolam (VERSED) injection 0.5-2 mg (CANCELED) 0.5-2 [...] 0843, Irritant. 0054 ($Given - Provider: Irma Santillan, IFRAH)2235 ($Given - Provider: Wilian Fischer RN) 1209 ($Given - Provider: See Milton RN) ondansetron (ZOFRAN) injection 4 mg (COMPLETED) 4 mg, Intravenous, ONCE PRN, nausea, vomiting, Administer over 2-5 Minutes, Starting on Fri06/20/23 at 0757, For 1 dose, Give in ENDO pre procedure prep area. Irritant., Pre-procedure 0807 ($Given - Provider: Wilfrido Mcgowan RN) sodium chloride 0.9 % infusion (COMPLETED) Intravenous, CONTINUOUS PRN, Intra-procedure, Starting on Fri06/20/23 at 0846, Until Discontinued 0846 ($New Bag - Provider: Wilfrido Mcgowan [...] 20 mg, Oral, DAILY, First dose on 06/28/23 at 0900, For 3 doses, 3rd order in taper Followed by predniSONE (DELTASONE) tablet 10 mgJump to med 10 mg, Oral, DAILY, First dose on Tu07/01/23 at 0900, For 4 doses, 4th order [...] documented as of this encounter Care Teams Horse Racing Analyst Relationship Specialty Start Date End Date Andrew Israel PA-C [facility] [address] [place] [address] PCP - General 05/15/23 documented as of this encounter
--- OUTSIDE RECORDS SUMMARY | 2023-09-17 14:35 | XMS_ITS | Encounter Summary ---
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 Appointment [facility] [id number] [address] [place] [address] Alisa Norman PA-C [facility] [address] [place] [address] COLTEN JOSHI [phone] documented as of this encounter Visit Diagnoses Not on filedocumented in this encounter Additional Health Concerns Infection Onset Date Last Indicated Resolved Time Rule Out C-difficile 06/16/2023 06/16/2023 023 6:46 PM CDT Rule Out C-difficile 06/16/2023 06/17/2023 023 6:04 PM CDT documented as of this encounter Care Teams Aviation Safety Inspector Relationship Specialty Start Date End Date Andrew Israel PA-C [address] [place] [address] PCP - General 05/15/23 documented as of this encounter
--- OUTSIDE RECORDS SUMMARY | 2023-09-17 14:36 | XMS_ITS | Encounter Summary ---
Author Name Unknown Organization [facility] Address [address] [place] [address] Care Team Providers Care Quality Technician Name Role Phone No Ref-Primary, Physician Primary Care Provider Reason for Visit * Reason Comments Dizziness * Auth/Cert (Routine) Specialty Diagnoses / Procedures Referred By Contac t Referred To Contact Med Surg Diagnoses Dizziness Abnormal stools History of colon surgery Abdominal pain, unspecified abdominal location Dizziness History of colon surgery Abdominal pain, unspecified abdominal location Abnormal stools Observation Dept [address] [place] [address] Referral ID Status Reason Start Date Expiration Date Visits Re quested Visits Authorized [id number] 1 1 Encounter Details Date Type Department Care Team (Late st Contact Info) Description 03/31/2023 4:16 PM CDT - 04/02/2023 1:29 PM CDT Emergency [facility] Observation Dept [address] [place] [address] Stan Toure MD [facility] [address] [place], [place] [id number] Aiden Borjas MD [address] [place] [address] RLQ abdominal pain (Primary Dx); Dizziness; History of colon surgery; Abdominal pain, unspecified abdominal location; Abnormal stools; Crohn disease (H) Discharge Disposition: Home or Self Care Social History Tobacco Use Types Packs/Day Years Used Date Smoking Tobacco: Never Assessed Sex and Gender Information Value Date Recorded Sex Assigned at Not on file Gender Identity Not on file Sexual Orientation Not on file COVID-19 Exposure Response Date Recorded In the last 10 days, have yo u been in contact with someone who was confirmed or suspected to have Coronavirus/COVID-19? No / Unsure 03/31/2023 3:56 PM CDT documented as of this encounter Last Filed Vital Signs Vital Sign Reading Time Taken Comments Blood Pressure 141/83 04/02/2023 8:00 AM CDT Pulse 84 04/02/2023 8:00 AM CDT Temperature 36.7 ??C (98.1 ??F) 04/02/2023 8:00 AM CD T Respiratory Rate 16 04/02/2023 11:06 AM CDT Oxygen Saturation 100% 04/02/2023 11:06 AM CDT Inhaled Oxygen Concentration - - Weight 67.6 kg (149 lb) 03/31/2023 10:48 PM CDT Height 160 cm (5' 3) 03/31/2023 10:48 PM CDT Body Mass Index 26.39 03/31/2023 10:48 PM CDT documented in this encounter Discharge Summaries * Jackie Hooks PA-C - 04/02/2023 1:29 PM CDT [facility] Hospitalist Discharge Summary Date of Admission: 03/31/2023 Date of Discharge: 04/02/2023 1:29 PM Discharging Provider: Jackie Hooks PA-C Discharge Service: Hospitalist Service Discharge Diagnoses Abdominal pain Crohn's disease with recent complication S/p open ileocolic resection for crohn's with TI stricture, with post-op course c/b anastomotic bleed Anemia Follow-ups Needed After Discharge Follow-up Appointments Follow-up and recommended labs and tests Follow up with PCP 7-14 days to recheck hgb, discuss when due for repeat B12 injection. - Continue low dose Flagyl for perianastomotic inflammation. Will need 10 days at discharge. - Will need CT scan in 10 days which our office can set up. Post op clinic visit scheduled for 04/21. ??For questions, please contact the CRS office at [phone]. ?? Unresulted Labs Ordered in the Past 30 Days of this Admission No orders found from 03/01/2023 to 04/01/2023. These results will be followed up by n/a Discharge Disposition Discharged to home Condition at discharge: Stable Hospital Course }Hortensia Buitrago??is a 63 year old??female??with a PMH significant for??Crohn's disease??s/p ileocolic resection 03/21 due to medically refractory Crohn's colitis,??asthma, migraines, CKD??and renal cell cancer that was managed surgically with right nephrectomy in 2008, who was??admitted on??03/31/2023??with increasing abdominal pain, malaise. ?? She was admitted in February with SBO related to Crohn's disease, treated with Prednisone taper and started on Remicade. Discharged home with planned follow up. Returned to hospital on 03/19 with ongoing abd pain and diarrhea, found to have ileitis with luminal narrowing. GI and CRS consulted, CRS optedfor ileocolic resection on 03/21 and continued on prednisone taper, next dose of Remicade held. Alsohad acute blood loss anemia during that admission due to presumed anastomotic bleed, received 1 unit PRBCs. ?? Returned to ED with increase in abd pain, malaise, 2 episodes of melena. Work up including??CT abd/pelvis shows postop changes with wall thickening around anastomosis with distended loops of small bowel, concerning for post op ileus. CRS aware, reviewed CT, felt changes are post op, recommend monitoring and stool studies. WBC normal, Hgb stable at 10.3.??Admitted. Hgb stable. CRS consulted. Enteric, c diff testing was negative. Started on flagyl for kirsten anastomotic inflammation with plans for follow up imaging with CRS office. ? Crohn's disease with complication S/p open ileocolic resection for crohn's with TI stricture, with post-op course c/b anastomotic bleed Returned to ED with increase in abd pain, malaise, 2 episodes of melena. Work up including??CT abd/pelvis shows postop changes with wall thickening around anastomosis with distended loops of small bowel, concerning for post op ileus. CRS aware, reviewed CT, felt changes are post op, recommend monitoring and stool studies. WBC normal, Hgb stable at 10.3.??Admitted to observation, NPO. Advancing diet, monitoring hgb. -> CRS consulted: recommending holding off on Remicade infusion until clearance post op with Dr Iverson 04/21.Will need CT scan in 10 days which CRS office can set up. Post op clinic visit scheduled for 04/21. -low fiber diet, regress if issues -low dose Flagyl for perianastomotic inflammation. Will need 10 days at discharge. - Pain management as needed -stool studies c diff, enteric in process -continue Prednisone??(5 mg for 7 days)??and Lovenox - tolerating diet, hemoglobin stable and pain better controlled ?? Acute Blood Loss anemia Had acute blood loss anemia during that admission due to presumed anastomotic bleed, received 1 unit PRBCs. WBC normal, Hgb stable at 10.3 -> 8.7, possible dilutional contribution. No melena here.May have symptomatic anemia with occasional lightheadedness. Last EGD 12/13/2022, endoscopically normal. Gastric biopsies, chronic gastritis, but negative H. pylori. Esophageal and duodenal biopsies were normal. - continue ENGINE TURNER b12, ppi ?? Chronic kidney disease Renal cell ca s/p nephrectomy - Creatinine stable - Continue follow labs - Avoid nephrotoxins? Asthma: no acute exacerbation - resume singulair, ok to use home albuterol inhaler prn ?? Consultations This Hospital Stay COLORECTAL SURGERY IP CONSULT CARE MANAGEMENT / SOCIAL WORK IP CONSULT Code Status Prior Time Spent on this Encounter I, Jackie Hooks PA-C, personally saw the patient today and spent greater than 30 minutes discharging this patient. Jackie Hooks PA-C Interval History Mild right sided abdominal discomfort, intermittent. Improved with pain medication. Tolerating normal diet. No nausea, vomiting. Fewer loose stools, no hematochezia. No lightheadedness dizziness. Physical Exam BP (!) 141/83 (BP Location: Right arm) Pulse 84 Temp 98.1 ??F (36.7 ??C) (Oral) Resp 16 Ht 1.6 m (5' 3) Wt 67.6 kg (149 lb) SpO2 100% BMI 26.39 kg/m?? Constitutional: Awake, alert, no apparent distress Respiratory: Normal work of breathing. Lungs clear to auscultation bilaterally, no crackles or wheezing. Cardiovascular: Regular rate and rhythm, normal S1 and S2, and no murmur appreciated. GI: Bowel sounds present. soft, non-distended, midline tenderness near incisions. No guarding or rebound tenderness. Skin/Integument: Warm, dry. no peripheral edema. Neuro: No focal deficits. Moving all extremities with normal strength. Coordination and sensation grossly intact. Speech clear. No focal deficits. Psych: Appropriate affect. Primary Care Physician Physician No Ref-Primary Discharge Orders Reason for your hospital stay Abdominal pain Follow-up and recommended labs and tests Follow up with PCP 7-14 days to recheck hgb, discuss when due for repeat B12 injection. - Continue low dose Flagyl for perianastomotic inflammation. Will need 10 days at discharge. - Will need CT scan in 10 days which our office can set up. Post op clinic visit scheduled for 04/21. ??For questions, please contact the CRS office at [phone]. ?? Activity Your activity upon discharge: activity as tolerated, take extra time going from sitting to standing When to contact your care team Call your primary care doctor if you have any of the following: temperature greater than 101 F, worsening shortness of breath, increased swelling, worsening pain, new or unrelenting diarrhea, or any other concerning symptoms. Call 911 or go to the emergency room if you need immediate assistance. Diet Follow this diet upon discharge: Orders Placed This Encounter Low Fiber Diet Significant Results and Procedures Results for orders placed or performed during the hospital encounter of 03/31/23 CT Abdomen Pelvis w Contrast Narrative EXAM: CT ABDOMEN PELVIS W CONTRAST LOCATION: [facility] DATE: 03/31/2023 INDICATION: Abd pain, recent iliocolic resection on 03/21/2023. History of Crohn's disease. COMPARISON: CT abdomen and pelvis 03/19/2023 TECHNIQUE: CT scan of the abdomen and pelvis was performed following injection of IV contrast. Multiplanar reformats were obtained. Dose reduction techniques were used. CONTRAST: 79 mL Isovue 370 FINDINGS: LOWER CHEST: Normal. HEPATOBILIARY: Cholecystectomy. PANCREAS: Normal. SPLEEN: Small hypodense splenic lesion too small to further characterize, but likely represents a cyst. ADRENAL GLANDS: Normal. KIDNEYS/BLADDER: Right nephrectomy. BOWEL: Recent postoperative changes ileocolic resection, with wall thickening and tiny gas pocket at the surgical anastomosis, and stranding in the adjacent mesentery. No localized fluid collections or evidence for abscess. The small bowel proximal to the anastomosis is distended with fluid, but no definite evidence for obstruction. LYMPH NODES: Normal. VASCULATURE: Atherosclerotic disease abdominal aorta. PELVIC ORGANS: Hysterectomy. No free pelvic fluid. MUSCULOSKELETAL: Degenerative disc disease L5 level. Impression IMPRESSION: 1. Postop changes ileocolic resection with wall thickening at the anastomosis and stranding/edema in the mesentery. Tiny extraluminal gas collection near the anastomosis presumed postoperative. No other findings for free air. 2. No evidence for abscess formation. 3. Small bowel loop proximal to the anastomosis is distended with fluid and may represent a postoperative ileus. No definite findings for obstruction. Discharge Medications Discharge Medication List as of 04/02/2023 1:19 PM START taking these medications Details acetaminophen (TYLENOL) 500 MG tablet Take 1-2 tablets (500-1,000 mg) by mouth every 6 hours as needed for mild pain, No Print Out metroNIDAZOLE (FLAGYL) 500 MG tablet Take 1 tablet (500 mg) by mouth 2 times daily for 10 days, Disp-20 tablet, R-0, E-Prescribe CONTINUE these medications which have CHANGED Details HYDROmorphone (DILAUDID) 2 MG tablet Take 0.5 tablets (1 mg) by mouth every 4 hours as needed for severe pain, Disp-9 tablet, R-0, Local Print inFLIXimab (REMICADE) 100 MG injection Inject 338 mg into the vein once for 1 dose at weeks 0, 2 and 6, then every 8 weeks. Infuse by IV route. Hold until approved outpatient follow up., No Print Out CONTINUE these medications which have NOT CHANGED Details acetaminophen (TYLENOL) 650 MG CR tablet Take 650 mg by mouth At Bedtime, Historical albuterol (PROAIR HFA/PROVENTIL HFA/VENTOLIN HFA) 108 (90 Base) MCG/ACT inhaler Inhale 2 puffs intothe lungs every 6 hours as needed for shortness of breath, wheezing or cough, Historical bisacodyl (DULCOLAX) [address] 1 suppository (10 mg) rectally 2 times daily as neededfor constipation, Disp-10 suppository, R-1, E-Prescribe cyanocobalamin (CYANOCOBALAMIN) 1000 MCG/ML injection Inject 1,000 mcg as directed every 30 days, Historical enoxaparin ANTICOAGULANT (LOVENOX) 40 MG/0.4ML syringe Inject 0.4 mLs (40 mg) Subcutaneous every 24hours for 28 days, Disp-11.2 mL, R-0, E-Prescribe esomeprazole (NEXIUM) [address] capsule Take 40 mg by mouth 2 times daily (before meals) Take 30-60 minutes before eating., Historical famotidine (PEPCID) 40 MG tablet Take 40 mg by mouth At Bedtime, Historical methocarbamol (ROBAXIN) 500 MG tablet Take 1 tablet (500 mg) by mouth 4 times daily as needed for muscle spasms, Disp-15 tablet, R-1, E-Prescribe montelukast (SINGULAIR) 10 MG tablet Take 10 mg by mouth At Bedtime, Historical nortriptyline (PAMELOR) 25 MG capsule Take 25 mg by mouth At Bedtime, Historical ondansetron (ZOFRAN ODT) 4 MG ODT tab Take 1 tablet (4 mg) by mouth every 8 hours as needed for nausea, Disp-15 tablet, R-2, E-Prescribe polyethylene glycol (MIRALAX) 17 GM/Dose powder Take 17 g by mouth daily, Disp- 510 g, R-3, E-Prescribe predniSONE (DELTASONE) 10 MG tablet Take 1 tablet (10 mg) by mouth daily for 7 days, THEN 0.5 tablets (5 mg) daily for 7 days., Disp-11 tablet, R-0, No Print Out sennosides (SENOKOT) 8.6 MG tablet Take 1-2 tablets by mouth 2 times daily as needed for constipation, Disp-90 tablet, R-1, E-Prescribe traZODone (DESYREL) 100 MG tablet Take 200 mg by mouth At Bedtime, Historical Allergies Allergies Allergen Reactions ??? Latex Hives ??? Oxycodone Anaphylaxis, Hives and Swelling Throat swelling, per pt ??? Penicillin G Anaphylaxis ??? Sumatriptan Palpitations ??? Aspirin Nausea and Vomiting ??? Demerol Hcl [Meperidine] Nausea and Vomiting N/V ??? Percocet [Oxycodone-Acetaminophen] Nausea and Vomiting N/V ??? Codeine Nausea and Vomiting ??? Mold Associated attestation - Aiden Borjas MD - 04/10/2023 2:57 PM CDT Physician Attestation I have reviewed and discussed with the advanced practice provider their discharge plan for Hortensia Buitrago. I did not participate in a shared visit by interviewing or examining the patient and this should be billed as an advanced practice provider only discharge. Aiden Borjas MD Date of Service (when I saw the patient): I did not personally see this patient today. documented in this encounter Medications at Time of Discharge Medication Sig Dispensed Refills Start Date End Date acetaminophen (TYLENOL) 500 MG tabletIndications:RL Q abdominal pain Take 1-2 tablets (500-1,000 mg) [...] or cough 0 bisacodyl (DULCOLAX) 10 MG suppositoryIndicatio ns:RLQ abdominal pain,Partial small bowel obstruction (H) Place 1 suppository (10 mg) rectally 2 times daily as needed for constipation 10 suppository 1 02/23/2023 cyanocobalamin (CYANOCOBALAMIN) 1000 MCG/ML injection Inject 1,000 mcg as directed every 30 days 0 esomeprazole (NEXIUM) [address] capsule Take 40 mg by mouth 2 times daily (before meals) Take 30-60 minutes before eating. 0 famotidine (PEPCID) 40 MG tablet Take 40 mg by mouth At Bedtime 0 methocarbamol (ROBAXIN) 500 MG tabletIndications:RL Q abdominal pain,Partial small bowel obstruction (H),IBD (inflammatory [...] 200 mg by mouth At Bedtime 0 enoxaparin ANTICOAGULANT (LOVENOX) 40 MG/0.4ML syringeIndications:C rohn's disease of colon with complication (H) Inject 0.4 mLs (40 mg) Subcutaneous every 24 hours for 28 days 11.2 mL 0 03/26/2023 04/23/2023 inFLIXimab (REMICADE) 100 MG injectionIndications :RLQ abdominal pain Inject 338 mg into the vein once for 1 dose at weeks 0, 2 and 6, then every 8 weeks. Infuse by IV route. Hold until approved outpatient follow up. 0 04/02/2023 04/02/2023 metroNIDAZOLE (FLAGYL) 500 MG tabletIndications:Po ssible post-op infection Take 1 tablet (500 mg) by mouth 2 times daily for 10 days 20 tablet 0 04/02/2023 04/12/2023 predniSONE (DELTASONE) 10 MG tabletIndications:Cr ohn's disease of colon with complication (H) Take 1 tablet (10 mg) by mouth daily for 7 days, THEN 0.5 tablets (5 mg) daily for 7 days. 11 tablet 0 03/27/2023 04/10/2023 HYDROmorphone (DILAUDID) 2 MG tabletIndications:RL Q abdominal pain Take 0.5 tablets (1 mg) by mouth every 4 hours as needed for severe pain 9 tablet 0 04/02/2023 06/16/2023 polyethylene glycol (MIRALAX) 17 GM/Dose powderIndications:RL Q abdominal pain,Partial small bowel obstruction (H) Take 17 g by mouth daily 510 g 3 02/23/2023 06/16/2023 sennosides (SENOKOT) 8.6 MG tabletIndications:RL Q abdominal pain,Partial small bowel obstruction (H) Take 1-2 tablets by mouth 2 times daily as needed for constipation 90 tablet 1 02/23/2023 06/16/2023 documented as of this encounter Progress Notes * Roberta Ramirez PA-C - 04/02/2023 9:07 AM CDT [facility] PROGRESS NOTE April 02, 2023 Post-op Day # 12 SUBJECTIVE: Patient feeling okay. Still having some right sided abdominal pain. Tolerating regular diet. Occasional nausea. Had 4 loose stools yesterday, none today. OBJECTIVE: Temp: [98 ??F (36.7 ??C)-98.7 ??F (37.1 ??C)] 98.1 ??F (36.7 ??C) Pulse: [84-102] 84 Resp: [16-20] 20 BP: (118-145)/(66-83) 141/83 SpO2: [96 %-98 %] 98 % No intake or output data in the 24 hours ending 04/02/23 0907 GENERAL: Awake, alert, no acute distress, sitting up in bed HEAD: Nomocephalic atraumatic SCLERA: anicteric EXTREMITIES: warm and well perfused ABDOMEN: Soft, RLQ tenderness, non-distended, no rebound or guarding, no peritoneal signs INCISION: C/d/i. Some bruising. LABS: Lab Results Component Value Date WBC 7.3 04/02/2023 Lab Results Component Value Date HGB 8.6 04/02/2023 Lab Results Component Value Date HCT 27.6 04/02/2023 Lab Results Component Value Date PLT 339 04/02/2023 Last Basic Metabolic Panel: Lab Results Component Value Date NA 145 04/02/2023 Lab Results Component Value Date POTASSIUM 3.7 04/02/2023 Lab Results Component Value Date CHLORIDE 110 04/02/2023 Lab Results Component Value Date DAJA 8.8 04/02/2023 Lab Results Component Value Date CO2 26 04/02/2023 Lab Results Component Value Date BUN 13.4 04/02/2023 Lab Results Component Value Date CR 0.97 04/02/2023 Lab Results Component Value Date GLC 88 04/02/2023 GLC 107 03/21/2023 ASSESSMENT/PLAN: Jorjeis a 63 year old??POD#12 s/p open ileocolic resection for crohn's with TIstricture, with post-op course c/b anastomotic bleed, now presenting with overall malaise/weakness with worsening abdominal pain and increasing bowel frequency. CT scan with some wall thickening around the anastomosis with small gas collection presumed to be postoperative changes. No abscess identified. Stool studies negative. ?? - Low fiber diet - Continue low dose Flagyl for perianastomotic inflammation. Will need 10 days at discharge. - Pain management as needed - No plans for surgery - Okay to discharge from a CRS standpoint. Will need CT scan in 10 days which our office can set up. Post op clinic visit scheduled for 04/21. For questions/paging, please contact the CRS office at [phone]. Roberta Ramirez PA-C [facility] * Jackie Hooks PA-C - 04/01/2023 10:10 AM CDT [facility] Progress Note - Hospitalist Service Date of Admission: 03/31/2023 Assessment & Plan Hortensia Buitrago is a 63 year old female with a PMH significant for??Crohn's disease s/p ileocolic resection 03/21 due to medically refractory Crohn's colitis,??asthma, migraines,CKD and renal cell cancer that was managed surgically with right nephrectomy in 2008, who was admitted on 03/31/2023 with increasing abdominal pain, malaise. She was admitted in February with SBO related to Crohn's disease, treated with Prednisone taper and started on Remicade. Discharged home with planned follow up. Returned to hospital on 03/19 with ongoing abd pain and diarrhea, found to have ileitis with luminal narrowing. GI and CRS consulted, CRS optedfor ileocolic resection on 03/21 and continued on prednisone taper, next dose of Remicade held. Alsohad acute blood loss anemia during that admission due to presumed anastomotic bleed, received 1 unit PRBCs. Returned to ED with increase in abd pain, malaise, 2 episodes of melena. Work up including CT abd/pelvis shows postop changes with wall thickening around anastomosis with distended loops of small bowel, concerning for post op ileus. CRS aware, reviewed CT, felt changes are post op, recommend monitoring and stool studies. WBC normal, Hgb stable at 10.3. Admitted to observation, NPO. Advancing diet, monitoring hgb. Crohn's disease with complication S/p open ileocolic resection for crohn's with TI stricture, with post-op course c/b anastomotic bleed Returned to ED with increase in abd pain, malaise, 2 episodes of melena. Work up including CT abd/pelvis shows postop changes with wall thickening around anastomosis with distended loops of small bowel, concerning for post op ileus. CRS aware, reviewed CT, felt changes are post op, recommend monitoring and stool studies. WBC normal, Hgb stable at 10.3. Admitted to observation, NPO. Advancing diet, monitoring hgb. -> CRS consulted: recommending holding off on Remicade infusion until clearance post op with Dr Iverson 04/21 -low fiber diet, regress if issues -starting flagyl empirically -analgesia prn -stool studies c diff, enteric in process -continue Prednisone (2 more days of 10 mg then 5 mg for 7 days) and Lovenox -Dissipate home tomorrow if tolerating diet, hemoglobin stable and pain better controlled Acute Blood Loss anemia Had acute blood loss anemia during that admission due to presumed anastomotic bleed, received 1 unit PRBCs. WBC normal, Hgb stable at 10.3 -> 8.7, possible dilutional contribution. No melena here.May have symptomatic anemia with occasional lightheadedness. Last EGD 12/13/2022, endoscopically normal. Gastric biopsies, chronic gastritis, but negative H. pylori. Esophageal and duodenal biopsies were normal. - monitor stool output for melena -asked RN to check orthostatic BP today - trend hgb, repeating in AM unless melanotic stools today in which case would make npo - type and cross - transfuse for hgb <7 - continue ENGINE TURNER b12, ppi Chronic kidney disease Renal cell ca s/p nephrectomy - Creatinine stable - Continue follow labs - IVFs per above - Avoid nephrotoxins ?? Asthma: no acute exacerbation - resume singulair, ok to use home albuterol inhaler prn ?? Diet: Low Fiber Diet DVT Prophylaxis: Enoxaparin (Lovenox) SQ Uribe Catheter: Not present Lines: None Cardiac Monitoring: None Code Status: Full Code Clinically Significant Risk Factors Present on Admission # Drug Induced Coagulation Defect: home medication list includes an anticoagulant medication # Overweight: Estimated body mass index is 26.39 kg/m?? as calculated from the following: Height as of this encounter: 1.6 m (5' 3). Weight as of this encounter: 67.6 kg (149 lb). Disposition Plan Expected Discharge Date: 04/01/2023 Jackie Hooks PA-C Hospitalist Service [facility] Securely message with Web and Rank (more info) Text page via [facility] Paging/Directory Interval History One loose bm today, no blood. Abdominal pain better, 4/10 Tolerating diet, ate breakfast. No nausea or vomiting Afebrile Passing gas Lightheadedness better, not oob yet today Physical Exam Vital Signs: Temp: 98.4 ??F (36.9 ??C) Temp src: Oral BP: 132/75 Pulse: 86 Resp: 18 SpO2: 96 % O2 Device: None (Room air) Weight: 149 lbs 0 oz Constitutional: Awake, alert, no apparent distress Respiratory: Normal work of breathing. Lungs clear to auscultation bilaterally, no crackles or wheezing. Cardiovascular: Regular rate and rhythm, normal S1 and S2, and no murmur appreciated. GI: Bowel sounds present. soft, non-distended, midline tenderness near incisions. No guarding or rebound tenderness. Skin/Integument: Warm, dry. no peripheral edema. Neuro: No focal deficits. Moving all extremities with normal strength. Coordination and sensation grossly intact. Speech clear. No focal deficits. Psych: Appropriate affect. Medical Decision Making 55 MINUTES SPENT BY ME on the date of service doing chart review, history, exam, documentation & further activities per the note. Data PAST 24 HR DATA REVIEWED [id number]} Associated attestation - Aiden Borjas MD - 04/01/2023 3:30 PM CDT Physician Attestation I have reviewed and discussed with the advanced practice provider their history, physical and plan for Hortensia Salina Buitrago. I did not participate in a shared visit by interviewing or examining the patient and this should be billed as an advanced practice provider only visit. Aiden Borjas MD Date of Service (when I saw the patient): I did not personally see this patient today. * Madison Iverson MD - 04/01/2023 9:42 AM CDT Images from the original note were not included. [facility]ON [facility] RECTAL SURGERY PROGRESS NOTE April 01, 2023 Post-op Day: #11 SUBJECTIVE: Feeling a little better today. No nausea or vomiting. Pain is better today and is controlled. Had one loose bowel movement this morning. No blood. Does report 2 dark/black loose stool yesterday morning. OBJECTIVE: Temp: [97.7 ??F (36.5 ??C)-98.4 ??F (36.9 ??C)] 98.4 ??F (36.9 ??C) Pulse: [82-110] 86 Resp: [12-18] 18 BP: (116-156)/(72-93) 132/75 SpO2: [95 %-100 %] 96 % No intake or output data in the 24 hours ending 04/01/23 0942 GENERAL: Awake, alert, no acute distress, lying in bed HEAD: Nomocephalic atraumatic SCLERA: anicteric EXTREMITIES: warm and well perfused ABDOMEN: Soft, mild tenderness on the right, non-distended, no rebound or guarding, no peritoneal signs INCISION: C/d/i LABS: Lab Results Component Value Date WBC 7.9 04/01/2023 Lab Results Component Value Date HGB 8.7 04/01/2023 Lab Results Component Value Date HCT 27.7 04/01/2023 Lab Results Component Value Date PLT 339 04/01/2023 Last Basic Metabolic Panel: Lab Results Component Value Date NA 141 04/01/2023 Lab Results Component Value Date POTASSIUM 3.6 04/01/2023 Lab Results Component Value Date CHLORIDE 109 04/01/2023 Lab Results Component Value Date DAJA 8.7 04/01/2023 Lab Results Component Value Date CO2 24 04/01/2023 Lab Results Component Value Date BUN 12.4 04/01/2023 Lab Results Component Value Date CR 0.89 04/01/2023 Lab Results Component Value Date GLC 89 04/01/2023 GLC 107 03/21/2023 ASSESSMENT/PLAN: Hortensia is a 63 year old POD#11 s/p open ileocolic resection for crohn's with TI stricture, with post-op course c/b anastomotic bleed, now presenting with overall malaise/weakness with worsening abdominal pain and increasing bowel frequency. CT scan with some wall thickening aroundthe anastomosis with small gas collection presumed to be postoperative changes. No abscess identified. - Low fiber diet - Await stool studies - Start Flagyl today - Pain management as needed - No plans for surgery - Would recommend holding off Remicade infusion until after her post op visit with Dr. Iverson on 04/21 given recent surgery. For questions/paging, please contact the CRS office at [phone]. Roberta Ramirez PA-C [facility] Attending Note Patient seen and examined independently. Agree with above assessment and plan. Feeling better today. Having loose bowel movements. No bleeding. No narcotics recently although didget to yesterday. C. difficile negative Abdomen soft with focal right lower quadrant tenderness without rebound or guarding. Plan: Okay to resume low fiber diet. We will start low-dose oral Flagyl to help with perianastomotic inflammation. Will allow for outpatient follow-up with [facility] for Remicade typically 4 weeks after surgery if doingwell. Discussed this with Dr. Dennis No plans for surgery at this time. If clinical decline or fails to improve may need to consider repeat imaging however overall seems better than yesterday. I suspect a component of dehydration with frequent loose stools. Madison Iverson MD [facility] [address], [address] [place] [address] T: [phone] F: [phone] [email or web address] documented in this encounter H&P Notes * Odalys Knight PA-C - 03/31/2023 8:49 PM CDT [facility] History and Physical - Hospitalist Service Date of Admission: 03/31/2023 Assessment & Plan Hortensia Buitrago is a 63 year old female with a PMH significant for Crohn's disease s/p ileocolic resection 03/21 due to medically refractory Crohn's colitis, asthma, migraines, CKD and renal cell cancer that was managed surgically with right nephrectomy in 2008, who was admitted on 03/31/2023 with increasing abdominal pain and feeling off POD#10 from ileocolic resection. 1. Crohn's disease POD#10 ileocolic resection with anastomosis Occasional melena Increasing abdominal pain Possible ileus Admitted in February with SBO related to Crohn's disease, treated with Prednisone taper and started on Remicade. Discharged home with planned follow up. Returned to hospital on 03/19 with ongoing abd painand diarrhea, found to have ileitis with luminal narrowing. GI and CRS consulted, CRS opted for ileocolic resection on 03/21 and continued on prednisone taper, next dose of Remicade held. Also had acute blood loss anemia during that admission due to presumed anastomotic bleed, received 1 unit PRBCs. Returns today with increase in abd pain and feeling off since yesterday. 2 episodes of melena this morning, then returned to watery stools of normal color. Notes hot flashes (does not typically measure temp) and one measured temp of [address] abd/pelvis shows postop changes with wall thickening around anastomosis with distended loops of small bowel, concerning for post op ileus. CRS aware,reviewed CT, felt changes are post op, recommend monitoring and stool studies. WBC normal, Hgb stable at 10.3. R bound tenderness noted in RUQ. - admit to OBS - send stool sample for c diff and enteric panel - gentle IVFs overnight - pain control and supportive cares - NPO per CRS - continue Prednisone (2 more days of 10 mg then 5 mg for 7 days) and Lovenox - CRS consult 2. Chronic kidney disease Renal cell ca s/p nephrectomy - Creatinine stable - Continue follow labs - IVFs per above - Avoid nephrotoxins 3. Asthma: no acute exacerbation - resume maria del carmen donato to use home albuterol inhaler prn Diet: NPO DVT Prophylaxis: Enoxaparin (Lovenox) SQ Uribe Catheter: Not present Lines: None Cardiac Monitoring: None Code Status: Full code Clinically Significant Risk Factors Present on Admission # Drug Induced Coagulation Defect: home medication list includes an anticoagulant medication # Overweight: Estimated body mass index is 27.65 kg/m?? as calculated from the following: Height as of 03/20/23: 1.6 m (5' 3). Weight as of 03/25/23: 70.8 kg (156 lb 1.6 oz). Disposition Plan Expected Discharge Date: 04/01/2023 The patient's care was discussed with the Patient, Patient's Family, and ED provider, Dr. Toure . Odalys Knight PA-C Hospitalist Service [facility] Securely message with [employer] (more info) Text page via [facility] Paging/Directory Chief Complaint Abd pain History is obtained from the patient History of Present Illness Hortensia Buitrago is a 63 year old female with a PMH significant for Crohn's disease s/p ileocolic resection 03/21 due to medically refractory Crohn's colitis, asthma, migraines, CKD and renal cell cancer that was managed surgically with right nephrectomy in 2008, who presents to the ED with increasing abdominal pain and feeling off since yesterday. Patient notes a history of Crohn's, she was treated for Crohn's flare in early February but did not improve. She was admitted here on 03/19 for concerns ofacute on chronic ileitis. Colorectal surgery was consulted and patient ultimately underwent an ileocolic resection with anastomosis. Patient symptoms improved and she was able to tolerate oral intakeprior to discharge. She states her stools have not been normal for very long time. She states this morning she woke up and had to dark black stools followed by normal colored watery stools. She noteshot flashes but does not always measure her temperature. She did check a temp last Friday which was99. She denies chest pain, shortness of breath, nausea, vomiting or dysuria. She is on Lovenox injections for DVT prophylaxis. She is also still on a prednisone taper. In the ED, she is mildly tachycardic, vital signs otherwise stable. CMP is fairly unremarkable, creatinine is stable at 1.03. CBC is unremarkable, hemoglobin stable at 10.3. UA is unremarkable. EKG shows sinus rhythm. CT abdomen pelvis shows postop changes of ileocolic resection with wall thickening at the anastomosis and stranding in the mesentery, no evidence of abscess formation. There is a small bowel loop proximal to the anastomosis that is distended with fluid and may represent a postoperative ileus. She was given 1 L normal saline bolus and 40 mg IV Protonix. Colorectal surgery was consulted from the ED and did evaluate the patient. They recommended stool studies, observation overnight, recheck hemoglobin in the morning and n.p.o. Past Medical History Crohn's disease CKD RCC s/p nephrectomy Asthma Migraines Past Surgical History Past Surgical History: Procedure Laterality Date LAPAROSCOPIC RESECTION ILEOCECAL N/A 03/21/2023 Procedure: Laparoscopic assisted ileocolic resection; Surgeon: Madison Iverson MD; Location: [facility] OR S/p R nephrectomy 2008 Prior to Admission Medications Prior to Admission Medications Prescriptions Last Dose Informant Patient Reported? Taking? acetaminophen (TYLENOL) 650 MG CR tablet Yes No Sig: Take 650 mg by mouth At Bedtime albuterol (PROAIR HFA/PROVENTIL HFA/VENTOLIN HFA) 108 (90 Base) MCG/ACT inhaler Yes No Sig: Inhale 2 puffs into the lungs every 6 hours as needed for shortness of breath, wheezing or cough bisacodyl (DULCOLAX) 10 MG suppository No No Sig: Place 1 suppository (10 mg) rectally 2 times daily as needed for constipation enoxaparin ANTICOAGULANT (LOVENOX) 40 MG/0.4ML syringe No No Sig: Inject 0.4 mLs (40 mg) Subcutaneous every 24 hours for 28 days esomeprazole (NEXIUM) [address] capsule Yes No Sig: Take 40 mg by mouth 2 times daily (before meals) Take 30-60 minutes before eating. famotidine (PEPCID) 40 MG tablet Yes No Sig: Take 40 mg by mouth At Bedtime methocarbamol (ROBAXIN) 500 MG tablet No No Sig: Take 1 tablet (500 mg) by mouth 4 times daily as needed for muscle spasms montelukast (SINGULAIR) 10 MG tablet Yes No Sig: Take 10 mg by mouth At Bedtime nortriptyline (PAMELOR) 25 MG capsule Yes No Sig: Take 25 mg by mouth At Bedtime ondansetron (ZOFRAN ODT) 4 MG ODT tab No No Sig: Take 1 tablet (4 mg) by mouth every 8 hours as needed for nausea polyethylene glycol (MIRALAX) 17 GM/Dose powder No No Sig: Take 17 g by mouth daily predniSONE (DELTASONE) 10 MG tablet No No Sig: Take 1 tablet (10 mg) by mouth daily for 7 days, THEN 0.5 tablets (5 mg) daily for 7 days. sennosides (SENOKOT) 8.6 MG tablet No No Sig: Take 1-2 tablets by mouth 2 times daily as needed for constipation traZODone (DESYREL) 100 MG tablet Yes No Sig: Take 200 mg by mouth At Bedtime Facility-Administered Medications: None Physical Exam Vital Signs: Temp: 97.7 ??F (36.5 ??C) Temp src: Temporal BP: (!) 146/93 Pulse: 110 Resp: 16 SpO2: 99 % O2 Device: None (Room air) Weight: 0 lbs 0 oz GENERAL: Comfortable. PSYCH: pleasant, oriented, No acute distress. HEENT: Atraumatic, normocephalic. Normal conjunctiva, normal hearing, and oropharynx is normal. NECK: Supple, no neck vein distention. HEART: Normal S1, S2 with no murmur, no pericardial rub, gallops or S3 or S4. LUNGS: Clear to auscultation, normal Respiratory effort. No wheezing, rales or ronchi. GI: Soft, normal bowel sounds. Rebound tenderness in RUQ, non distended. Midline incision healing well EXTREMITIES: No pedal edema, +2 pulses bilateral and equal. SKIN: Dry to touch, No rash, wound or ulcerations. NEUROLOGIC: CN 2-12 intact, BL 5/5 symmetric upper and lower extremity strength, sensation is intact with no focal deficits. Medical Decision Making 75+ MINUTES SPENT BY ME on the date of service doing chart review, history, exam, documentation & further activities per the note. Data I have personally reviewed the following data over the past 24 hrs: 10.6 \ 10.3 (L) / 405 139; 140 105; 105 18.7; 18.5 / 111 (H); 112 (H) 3.9; 4.1 21 (L); 20 (L) 1.01 (H); 1.03 (H) \ ALT: 28 AST: 29 AP: 72 TBILI: 0.3 ALB: 3.9 TOT PROTEIN: 7.0 LIPASE: 56 Imaging results reviewed over the past 24 hrs: Recent Results (from the past 24 hour(s)) CT Abdomen Pelvis w Contrast Narrative EXAM: CT ABDOMEN PELVIS W CONTRAST LOCATION: [facility] DATE: 03/31/2023 INDICATION: Abd pain, recent iliocolic resection on 03/21/2023. History of Crohn's disease. COMPARISON: CT abdomen and pelvis 03/19/2023 TECHNIQUE: CT scan of the abdomen and pelvis was performed following injection of IV contrast. Multiplanar reformats were obtained. Dose reduction techniques were used. CONTRAST: 79 mL Isovue 370 FINDINGS: LOWER CHEST: Normal. HEPATOBILIARY: Cholecystectomy. PANCREAS: Normal. SPLEEN: Small hypodense splenic lesion too small to further characterize, but likely represents a cyst. ADRENAL GLANDS: Normal. KIDNEYS/BLADDER: Right nephrectomy. BOWEL: Recent postoperative changes ileocolic resection, with wall thickening and tiny gas pocket at the surgical anastomosis, and stranding in the adjacent mesentery. No localized fluid collections or evidence for abscess. The small bowel proximal to the anastomosis is distended with fluid, but no definite evidence for obstruction. LYMPH NODES: Normal. VASCULATURE: Atherosclerotic disease abdominal aorta. PELVIC ORGANS: Hysterectomy. No free pelvic fluid. MUSCULOSKELETAL: Degenerative disc disease L5 level. Impression IMPRESSION: 1. Postop changes ileocolic resection with wall thickening at the anastomosis and stranding/edema in the mesentery. Tiny extraluminal gas collection near the anastomosis presumed postoperative. No other findings for free air. 2. No evidence for abscess formation. 3. Small bowel loop proximal to the anastomosis is distended with fluid and may represent a postoperative ileus. No definite findings for obstruction. Associated attestation - Aiden Borjas MD - 04/01/2023 3:30 PM CDT Physician Attestation I have reviewed and discussed with the advanced practice provider their history, physical and plan for Hortensia Buitrago. I did not participate in a shared visit by interviewing or examining the patient and this should be billed as an advanced practice provider only visit. Aiden Borjas MD Date of Service (when I saw the patient): I did not personally see this patient today. documented in this encounter Consult Notes * Peggy Strong RN - 04/01/2023 11:48 AM CDTAssociated Order(s): CARE MANAGEMENT / SOCIAL WORK IP CONSULT Care Management Discharge Note Discharge Date: 04/02/2023 Discharge Disposition: Home Additional Information: Pt admitted with possible ileus, history of Crohn's disease and is POD#10 ileocolic resection with anastomosis. Pt was recently admitted from 03/19-03/26 she was seen by IFRAH DOMINGUEZ on 03/23 and denied havingany discharge needs. Per chart review, she lives at home with her spouse and is independent at baseline. Pt noted to have unplanned readmission risk of 23%. Per AM care rounds, pt does not have any anticipated discharge needs at this time. Will clear consult, please call if needs arise. Peggy Strong [employer] INVENTORY CLERK Inpatient Care Coordination [facility] * Issa Bruno MD - 03/31/2023 5:14 PM CDT Images from the original note were not included. [facility] Colon and Rectal Surgery Consult Note Name: Hortensia Buitrago Date of : 1960 Age: [age] year old Date of admission: 03/31/2023 Primary care provider: No Ref-Primary, Physician Requesting Physician: n/a Reason for consult: recent surgery History of Present Illness: Hortensia Buitrago is a 63 year old woman with recent open ileocolic resection on 03/21/2023 (Dr. Iverson) for medical refractory crohn's with recurrent SBO from TI stricture. Post-op course was complicated by anastomotic bleed, which was managed and resolved conservatively and with PRBC transfusion. Patient was discharged home on POD#5 on PO steroid taper and lovenox injection. Patient reported that she was initially doing well upon discharge; tolerating diet, no nausea/vomiting, fevers or chills. Was having flatus and multiple loose BMs per day. However, yesterday she began not feeling well with dizziness and weakness, also intermittent right sided abdominal pain, crampy in nature, which was man aged with tylenol. She was also having increased bowel frequency; 8 yesterday and 13 today, two of which were black stools. She reports episodic cold sweats today, denied fevers, SOB, CP, dysuria or productive cough. She does report chest tightness. She has been taking her steroids and lovenox injection, though lovenox not taken today. In the ED, patient was afeb, but tachy to 110s. BP stable. Labs pending, but ones from earlier withWBC of 10.6, H/H 10.3/33 from 8.2/26 upon discharge. Cr 1.0 Colonoscopy History: 01/28/23: Inflammation with ulceration and stenosis at the terminal ileum. Pathrevealed mild active chronic ileitis at the terminal ileum. Past abdominal surgery:Right nephrectomy, appendectomy, cholecystectomy Past Medical History: No past medical history on file. Past Surgical History: Past Surgical History: Procedure Laterality Date LAPAROSCOPIC RESECTION ILEOCECAL N/A 03/21/2023 Procedure: Laparoscopic assisted ileocolic resection; Surgeon: Madison Iverson MD; Location: OR Social History: Social History Tobacco Use Smoking status: Not on file Smokeless tobacco: Not on file Substance Use Topics Alcohol use: Not on file Family History: No family history on file. Allergies: Allergies Allergen Reactions Latex Hives Oxycodone Anaphylaxis, Hives and Swelling Throat swelling, per pt Penicillin G Anaphylaxis Sumatriptan Palpitations Aspirin Nausea and Vomiting Demerol Hcl [Meperidine] Nausea and Vomiting N/V Percocet [Oxycodone-Acetaminophen] Nausea and Vomiting N/V Codeine Nausea and Vomiting Mold Medications: sodium chloride 0.9% 1,000 mL Intravenous Once Review of Systems: A comprehensive greater than 10 system review of systems was carried out. Pertinent positives and negatives are noted above. Otherwise negative for contributory info. Physical Exam: Blood pressure (!) 146/93, pulse 110, temperature 97.7 ??F (36.5 ??C), temperature source Temporal,resp. rate 16, SpO2 99 %. No intake or output data in the 24 hours ending 03/31/23 1656 Exam: General - Awake alert and oriented, non toxic, but slightly lethargic Pulm - Non-labored breathing with normal respiratory effort CVS - tachy with normal rhythm, no peripheral edema Abd - soft, mild distension, ttp on right side. No guarding, rigidity or peritoneal signs. Incisionsites c/d/i Data Reviewed: No results found for this or any previous visit (from the past 24 hour(s)). Recent Labs Lab 03/31/23 1608 03/26/23 0659 03/25/23 0638 WBC 10.6 7.2 7.1 HGB 10.3* 8.2* 8.6* HCT 33.1* 25.7* 26.5* MCV 92 92 91 PLT 405 220 214 Lab Results Component Value Date NA 139 03/31/2023 NA 143 03/25/2023 NA 139 03/24/2023 Lab Results Component Value Date CHLORIDE 105 03/31/2023 CHLORIDE 107 03/25/2023 CHLORIDE 105 03/24/2023 Lab Results Component Value Date BUN 18.7 03/31/2023 BUN 12.7 03/25/2023 BUN 17.5 03/24/2023 Lab Results Component Value Date POTASSIUM 3.9 03/31/2023 POTASSIUM 3.9 03/25/2023 POTASSIUM 4.0 03/24/2023 Lab Results Component Value Date CO2 21 03/31/2023 CO2 29 03/25/2023 CO2 28 03/24/2023 Lab Results Component Value Date CR 1.01 03/31/2023 CR 1.00 03/25/2023 CR 1.01 03/24/2023 Assessment and Plan: Hortensia Buitrago is a 63 year old POD#5 s/p open ileocolic resection for crohn's with TI stricture, with post-op course c/b anastomotic bleed, now presenting with overall malaise/weakness with worsening abdominal pain and increasing bowel frequency. Although patient is tender on right side, there isno evidence of peritonitis and she is clinically stable. No indication for acute surgical intervention. Differential includes C diff infection, anastomotic leak, intra- abdominal abscess or dehydration from increased GI loss. Agree with full evaluation by ED- labs, C diff/stool studies and CT A/P. Further reccs pending complete work up. Although, if work up is unremarkable, will recommend admission to medicine for resuscitation and further observation. Plan: Admit to medicine pending ED evaluation Surgery: no indication for urgent surgery at this time. Diet: NPO IV Fluids: LR @100 Antibiotics: No indication for abx at this time Medications: Cont home steroids and lovenox injection for DVT PPx I&O? s: strict I&O? s Labs: - Reviewed: Yes Imaging: - CT abd/pelvis pending - Ordered Activity: OOB, ambulate as able DVT prophylaxis: SCD???s, lovenox Ppx pending ED evaluation This plan has been discussed with Dr. Iverson Patient specific identified risk factors considered as part of today???s evaluation include: crohns, immunosuppressed, recent surgery Additional history obtained from chart review. Time spent on consultation: 30 minutes, greater than50% spent on counseling and/or coordination of care. Issa Bruno MD [facility] Fellow [facility] [id number] [place] [address] [place] [address] T: [phone] F: [phone] Associated attestation - Madison Iverson MD - 04/11/2023 7:23 AM CDT Physician Attestation I saw and evaluated Hortensia Buitrago as part of a shared VAMP LINER/PA visit. Postop day 10 Having loose bowel movements. No bleeding. No narcotics recently although did get to yesterday. C. difficile negative Abdomen soft with focal right lower quadrant tenderness without rebound or guarding. Plan: Okay to resume low fiber diet. We will start low-dose oral Flagyl to help with perianastomotic inflammation. Will allow for outpatient follow-up with [facility] for Remicade typically 4 weeks after surgery if doingwell. Discussed this with Dr. Dennis No plans for surgery at this time. If clinical decline or fails to improve may need to consider repeat imaging however overall seems better than yesterday. I suspect a component of dehydration with frequent loose stools. Madison Iverson MD, MD Date of Service (when I saw the patient): 04/01/23 documented in this encounter ED Notes * Tyler Roberson RN - 03/31/2023 10:10 PM CDT [facility] ED Nurse Handoff Report ED Chief complaint: Dizziness . ED Diagnosis: Final diagnoses: Dizziness History of colon surgery Abdominal pain, unspecified abdominal location Abnormal stools Allergies: Allergies Allergen Reactions Latex Hives Oxycodone Anaphylaxis, Hives and Swelling Throat swelling, per pt Penicillin G Anaphylaxis Sumatriptan Palpitations Aspirin Nausea and Vomiting Demerol Hcl [Meperidine] Nausea and Vomiting N/V Percocet [Oxycodone-Acetaminophen] Nausea and Vomiting N/V Codeine Nausea and Vomiting Mold Code Status: Full Code Activity level - Baseline/Home: independent. Activity Level - Current: standby. Lift room needed: No. Bariatric: No Bean Sorter Needed: No Isolation: Yes. Infection: Not Applicable C-Diff Pending. Respiratory status: Room air Vital Signs (within 30 minutes): Vitals: 03/31/23 1600 03/31/23 2000 03/31/23 2100 03/31/23 2200 BP: (!) 146/93 (!) 144/86 (!) 141/88 (!) 130/93 Pulse: 110 89 82 83 Resp: 16 12 14 Temp: 97.7 ??F (36.5 ??C) TempSrc: Temporal SpO2: 99% 95% 96% 96% Cardiac Rhythm: , Pain level: Patient confused: No. Patient Falls Risk: patient and family education. Elimination Status: Has voided Patient Report - Initial Complaint: Colon surgery on 03/21. Required hospitalization and blood transfusion after surgery. Started feeling dizzy yesterday. Feels similar to when she needed blood in thehospital. Went to clinic appointment today, immediately sent her to ER for eval. VSS in triage. . Focused Assessment: Hortensia Buitrago is a 63 year old female who presents with some dizziness. States that she was hospitalized from 03/19-03/26. She has a history of crohn's disease. States that stool was black this morning 2 times and then after went to normal. State she has increased tiredness and dizziness. states she does not feel right. Was not on antibiotics in the hospital. 2 tylenolevery 6 hours but does not seem to subsided the pain. Yesterday the stool was brown and is liquid. Weak and dizzy feels like anemia when she was in the hospital. Denies any fevers, vomiting, and alcohol use. Abnormal Results: Labs Ordered and Resulted from Time of ED Arrival to Time of ED Departure BASIC METABOLIC PANEL - Abnormal Result Value Sodium 139 Potassium 3.9 Chloride 105 Carbon Dioxide (CO2) 21 (*) Anion Gap 13 Urea Nitrogen 18.7 Creatinine 1.01 (*) Calcium 9.6 Glucose 111 (*) GFR Estimate 62 CBC WITH PLATELETS AND DIFFERENTIAL - Abnormal WBC Count 10.6 RBC Count 3.60 (*) Hemoglobin 10.3 (*) Hematocrit 33.1 (*) MCV 92 MCH 28.6 MCHC 31.1 (*) RDW 15.2 (*) Platelet Count 405 % Neutrophils 82 % Lymphocytes 12 % Monocytes 3 % Eosinophils 1 % Basophils 0 % Immature Granulocytes 2 NRBCs per 100 WBC 0 Absolute Neutrophils 8.5 (*) Absolute Lymphocytes 1.3 Absolute Monocytes 0.3 Absolute Eosinophils 0.1 Absolute Basophils 0.0 Absolute Immature Granulocytes 0.2 Absolute NRBCs 0.0 COMPREHENSIVE METABOLIC PANEL - Abnormal Sodium 140 Potassium 4.1 Chloride 105 Carbon Dioxide (CO2) 20 (*) Anion Gap 15 Urea Nitrogen 18.5 Creatinine 1.03 (*) Calcium 9.7 Glucose 112 (*) Alkaline Phosphatase 72 AST 29 ALT 28 Protein Total 7.0 Albumin 3.9 Bilirubin Total 0.3 GFR Estimate 60 (*) ROUTINE UA WITH MICROSCOPIC REFLEX TO CULTURE - Abnormal Color Urine Light Yellow Appearance Urine Clear Glucose Urine Negative Bilirubin Urine Negative Ketones Urine Negative Specific [place] Urine 1.010 Blood Urine Negative pH Urine 5.0 Protein Albumin Urine Negative Urobilinogen Urine Normal Nitrite Urine Negative Leukocyte Esterase Urine Negative Mucus Urine Present (*) RBC Urine <1 WBC Urine <1 LIPASE - Normal Lipase 56 ENTERIC BACTERIA AND VIRUS PANEL BY PCR C. DIFFICILE TOXIN B PCR WITH REFLEX TO C. DIFFICILE ANTIGEN AND TOXINS A/B EIA CT Abdomen Pelvis w Contrast Final Result IMPRESSION: 1. Postop changes ileocolic resection with wall thickening at the anastomosis and stranding/edema in the mesentery. Tiny extraluminal gas collection near the anastomosis presumed postoperative. No other findings for free air. 2. No evidence for abscess formation. 3. Small bowel loop proximal to the anastomosis is distended with fluid and may represent a postoperative ileus. No definite findings for obstruction. Treatments provided: See MAR Family Comments: spouse at bedside OBS brochure/video discussed/provided to patient: Yes ED Medications: Medications HYDROmorphone (PF) (DILAUDID) injection 0.5 mg (0.5 mg Intravenous $Given 03/31/232032) 0.9% sodium chloride BOLUS (0 mLs Intravenous Stopped 03/31/232032) iopamidol (ISOVUE-370) solution 120 mL (79 mLs Intravenous $Given 03/31/231715) Saline CT scan flush (60 mLs Intravenous $Given 03/31/231716) pantoprazole (PROTONIX) IV push injection 40 mg (40 mg Intravenous $Given 03/31/232032) Drips infusing: No For the majority of the shift this patient was Green. Interventions performed were N/A. Sepsis treatment initiated: No Cares/treatment/interventions/medications to be completed following ED care: stool studies, pain management ED Nurse Name: Natasha Frazier RN 10:10 PM RECEIVING UNIT ED HANDOFF REVIEW Above ED Nurse Handoff Report was reviewed: Yes Reviewed by: Tyler Roberson RN on March 31, 2023 at 10:19 PM * Brenda Jc RN - 03/31/2023 4:43 PM CDT Colorectal seeing pt then pt will go wait in lobby. * Isreal Stark MD - 03/31/2023 4:24 PM CDT Tele-PIT/Intake Evaluation Video-Visit Details Type of service: Video Visit Video Start Time (time video started): 4:24 PM Video End Time (time video stopped): 4:30 PM Originating Location (pt. Location): [facility] Distant Location (provider location): [facility] Mode of Communication: Video Conference via Payoff Patient verbally consented to [place] televisit. History: This patient is a 63-year-old woman with a history of Crohn's disease. She was admitted to the hospital earlier this month and discharged on March 26. On the she had an ileocolic resection. GI and colorectal surgery continue to follow. She is due to restart her Remicade tomorrow. While in the hospital she became anemic and required a blood transfusion. Over the course of the last 1 to 2 days now she has become increasingly weak and fatigued. She was referred by her primary care physician for consideration of worsening anemia or need for blood transfusion. She denies fever or vomiting. Shehas very frequent loose stools which she says she has had related to her Crohn's disease in the past. Her abdominal incisions seem to be healing well. Exam: General: No distress Respiratory: Breathing comfortably Abdomen: No distention Skin: Well perfused Neurologic: Sitting up, speech is fluent Patient Vitals for the past 24 hrs: BP Temp Temp src Pulse Resp SpO2 03/31/23 1600 (!) 146/93 97.7 ??F (36.5 ??C) Temporal 110 16 99 % Appropriate interventions for symptom management were initiated if applicable. Appropriate diagnostic tests were initiated if indicated. Important information for subsequent clinician: Given that the patient was recently in the hospital we will proceed with a work- up. She will have IV fluids. Hemoglobin actually has increased compared to previously. We will get stool studies to rule out C. difficile given that she was recently in the hospital. We will get a CT scan to look at theanastomosis. I briefly evaluated the patient and developed an initial plan of care. I discussed this plan and explained that this brief interaction does not constitute a full evaluation. Patient/family understands that they should wait to be fully evaluated and discuss any test results with another clinician prior to leaving the hospital. Isreal Stark MD 03/31/23 1632 * Cori Hull RN - 03/31/2023 4:01 PM CDT Colon surgery on 03/21. Required hospitalization and blood transfusion after surgery. Started feeling dizzy yesterday. Feels similar to when she needed blood in the hospital. Went to clinic appointment today, MD immediately sent her to ER for eval. VSS in triage. * Stan Toure MD - 03/31/2023 3:56 PM CDT History Chief Complaint: Dizziness, weakness and abdominal pain The history is provided by the patient and the spouse. Hortensia Buitrago is a 63 year old female who presents with weakness, dizziness and abdominal symptoms. States that she was hospitalized from 03/19-03/26 for complications related to her previously diagnosed Crohn's disease, she had an ileocolic resection with a local colorectal surgery team while hospitalized and required blood transfusion for acute blood loss anemia. Over the last day or so she hasbeen feeling overall more weak and tired. She had several episodes of liquid black stool this morning, though stool has now returned to its normal creamy brown color, always very loose. No vomiting. No fever. She feels similarly to the way she felt when she was hospitalized and needed blood transf usion. Independent Historian: Spouse/Partner - They report per HPI at bedside, who expresses that the patient is frustrated by having to be back in the hospital yet again. Review of External Notes: I personally performed electronic chart review including the discharge summary from March 26 at which time she was discharged from a 1 week hospitalization here at [facility], she had been admitted for anemia and Crohn's ileitis, she also has a history of renal cell carcinoma status post prior nephrectomy. Patient was seen in the emergency department today by the colorectal surgery fellow before I first met the patient, I reviewed their note as part of the patient's evaluation today. Medications: Albuterol Bisacodyl Enoxaparin Esomeprazole Famotidine Methocarbamol Montelukast Nortriptyline Ondansetron Prednisone Sennosides Trazodone Past Medical History: Allergic rhinitis Headache Kidney cancer Grave's disease Past Surgical History: Laparoscopic resection ileocecal Physical Exam Patient Vitals for the past 24 hrs: BP Temp Temp src Pulse Resp SpO2 Height Weight 03/31/23 2248 (!) 156/91 98 ??F (36.7 ??C) Oral 96 15 100 % 1.6 m (5' 3) 67.6 kg (149 lb) 03/31/23 2200 (!) 130/93 -- -- 83 14 96 % -- -- 03/31/23 2100 (!) 141/88 -- -- 82 12 96 % -- -- 03/31/23 2000 (!) 144/86 -- -- 89 -- 95 % -- -- 03/31/23 1600 (!) 146/93 97.7 ??F (36.5 ??C) Temporal 110 16 99 % -- -- Physical Exam General: Chronically ill appearing woman recumbent in room 34, at bedside HENT: mucous membranes slightly dry CV: rate as above, no murmur audible Resp: normal effort, speaks in full phrases, no stridor, no cough observed GI: Abdomen soft but tender especially in the right side, negative Garces sign, no distention MSK: no bony tenderness, no CVAT Skin: appropriately warm and dry, multiple abdominal surgical sites are clean dry and intact Neuro: alert, clear speech, oriented Psych: cooperative, manifests frustration at her recurrent symptoms, no apparent hallucinations Emergency Department Course ECG ECG taken at 2017, ECG read at 2018 Normal sinus rhythm Minim al voltage criteria for LVH, may be normal variant. Rate 84 bpm. PA interval 138 ms. QRS duration 76 ms. QT/QTc 376/444 ms. P-R-T axes 40 -15 45. Imaging: CT Abdomen Pelvis w Contrast Final Result IMPRESSION: 1. Postop changes ileocolic resection with wall thickening at the anastomosis and stranding/edema in the mesentery. Tiny extraluminal gas collection near the anastomosis presumed postoperative. No other findings for free air. 2. No evidence for abscess formation. 3. Small bowel loop proximal to the anastomosis is distended with fluid and may represent a postoperative ileus. No definite findings for obstruction. Report per radiology Laboratory: Labs Ordered and Resulted from Time of ED Arrival to Time of ED Departure BASIC METABOLIC PANEL - Abnormal Result Value Sodium 139 Potassium 3.9 Chloride 105 Carbon Dioxide (CO2) 21 (*) Anion Gap 13 Urea Nitrogen 18.7 Creatinine 1.01 (*) Calcium 9.6 Glucose 111 (*) GFR Estimate 62 CBC WITH PLATELETS AND DIFFERENTIAL - Abnormal WBC Count 10.6 RBC Count 3.60 (*) Hemoglobin 10.3 (*) Hematocrit 33.1 (*) MCV 92 MCH 28.6 MCHC 31.1 (*) RDW 15.2 (*) Platelet Count 405 % Neutrophils 82 % Lymphocytes 12 % Monocytes 3 % Eosinophils 1 % Basophils 0 % Immature Granulocytes 2 NRBCs per 100 WBC 0 Absolute Neutrophils 8.5 (*) Absolute Lymphocytes 1.3 Absolute Monocytes 0.3 Absolute Eosinophils 0.1 Absolute Basophils 0.0 Absolute Immature Granulocytes 0.2 Absolute NRBCs 0.0 COMPREHENSIVE METABOLIC PANEL - Abnormal Sodium 140 Potassium 4.1 Chloride 105 Carbon Dioxide (CO2) 20 (*) Anion Gap 15 Urea Nitrogen 18.5 Creatinine 1.03 (*) Calcium 9.7 Glucose 112 (*) Alkaline Phosphatase 72 AST 29 ALT 28 Protein Total 7.0 Albumin 3.9 Bilirubin Total 0.3 GFR Estimate 60 (*) ROUTINE UA WITH MICROSCOPIC REFLEX TO CULTURE - Abnormal Color Urine Light Yellow Appearance Urine Clear Glucose Urine Negative Bilirubin Urine Negative Ketones Urine Negative Specific [place] Urine 1.010 Blood Urine Negative pH Urine 5.0 Protein Albumin Urine Negative Urobilinogen Urine Normal Nitrite Urine Negative Leukocyte Esterase Urine Negative Mucus Urine Present (*) RBC Urine <1 WBC Urine <1 LIPASE - Normal Lipase 56 ENTERIC BACTERIA AND VIRUS PANEL BY PCR C. DIFFICILE TOXIN B PCR WITH REFLEX TO C. DIFFICILE ANTIGEN AND TOXINS A/B EIA Emergency Department Course & Assessments: Interventions: Medications enoxaparin ANTICOAGULANT (LOVENOX) injection 40 mg (has no administration in time range) pantoprazole (PROTONIX) EC tablet 40 mg (has no administration in time range) famotidine (PEPCID) tablet 40 mg (40 mg Oral $Given 03/31/232315) methocarbamol (ROBAXIN) tablet 500 mg (has no administration in time range) nortriptyline (PAMELOR) capsule 25 mg (25 mg Oral $Given 03/31/232301) montelukast (SINGULAIR) tablet 10 mg (10 mg Oral $Given 03/31/232301) predniSONE (DELTASONE) tablet 10 mg (has no administration in time range) traZODone (DESYREL) tablet 200 mg (200 mg Oral $Given 03/31/232301) predniSONE (DELTASONE) tablet 5 mg (has no administration in time range) melatonin tablet 1 mg (has no administration in time range) ondansetron (ZOFRAN ODT) ODT tab 4 mg (4 mg Oral $Given 03/31/232315) Or ondansetron (ZOFRAN) injection 4 mg ( Intravenous See Alternative 03/31/232315) lidocaine 1 % 0.1-1 mL (has no administration in time range) lidocaine (LMX4) cream (has no administration in time range) sodium chloride (PF) 0.9% PF flush 3 mL (has no administration in time range) sodium chloride (PF) 0.9% PF flush 3 mL (3 mLs Intracatheter $Given 03/31/232307) lactated ringers infusion ( Intravenous $New Bag 03/31/232306) acetaminophen (TYLENOL) tablet 975 mg (975 mg Oral $Given 03/31/232301) HYDROmorphone (DILAUDID) half-tab 1 mg (has no administration in time range) HYDROmorphone (DILAUDID) injection 0.2 mg (0.2 mg Intravenous $Given 03/31/232315) naloxone (NARCAN) injection 0.2 mg (has no administration in time range) Or naloxone (NARCAN) injection 0.4 mg (has no administration in time range) Or naloxone (NARCAN) injection 0.2 mg (has no administration in time range) Or naloxone (NARCAN) injection 0.4 mg (has no administration in time range) 0.9% sodium chloride BOLUS (0 mLs Intravenous Stopped 03/31/232032) iopamidol (ISOVUE-370) solution 120 mL (79 mLs Intravenous $Given 03/31/231715) Saline CT scan flush (60 mLs Intravenous $Given 03/31/231716) pantoprazole (PROTONIX) IV push injection 40 mg (40 mg Intravenous $Given 03/31/232032) Assessments: 1999 I obtained history and examined the patient as noted above. Independent Interpretation (X-rays, CTs, rhythm strip): I personally reviewed the CT and noted the findings. Consultations/Discussion of Management or Tests: [address] Santos, Colon Rectal, regarding the patient's history and presentation in theemergency department today. [address] Knight of the hospitalist team regarding the patient, who accepted the patient for admission. Social Determinants of Health affecting care: Healthcare Access/Compliance Disposition: The patient was admitted to the hospital under the care of Dr. Borjas. Impression & Plan Medical Decision Making: The specific etiology of her presenting symptoms is unclear despite extensive testing as above. Shereports feeling dizzy though on further questioning this seems to be a generalized weakness and lightheadedness, likely multifactorial including some degree of dehydration and deconditioning from herrecent hospitalizations and surgery. She describes some liquid black stool today, upper GI bleed but certainly considered and remains on the differential, though fortunately, her hemoglobin at this time is actually several grams higher than it had been at last check. For this reason, in combinationwith satisfactory blood pressures at this time, I do not think she requires immediate transfusion of blood though she will require close monitoring here in the hospital and serial hemoglobins at a minimum. She does have some abdominal tenderness especially on the right side, she has had a CT, has been seen in person by the colorectal surgery team, and I did speak with the surgery team again afterCT was resulted to confirm that they do not feel she needs any immediate procedural intervention. However, they do recommend that she be admitted to the hospitalist service for further multidisciplinary care, the colorectal surgery team they will continue to follow her as well. C. difficile colitisand other infectious etiologies remain on the differential. Findings and plan explained to the patie nt and her , who agree with them. Diagnosis: ICD-10-CM 1. Dizziness R42 2. History of colon surgery Z98.890 3. Abdominal pain, unspecified abdominal location R10.9 4. Abnormal stools R19.5 Scribe Disclosure: I, Doroteo Lake, am serving as a scribe at 7:57 PM on 03/31/2023 to document services personally performed by Stan Toure MD based on my observations and the provider's statements to me. 03/31/2023 Stan Toure MD Reitsema, Jeffrey Alan, MD 04/01/23 0206 documented in this encounter Miscellaneous Notes * Plan of Care - Martir Armas RN - 04/02/2023 1:27 PM CDT Patient's After Visit Summary was reviewed with patient and/or spouse. Patient verbalized understanding of After Visit Summary, recommended follow up and was given an opportunity to ask questions. Discharge medications sent home with patient/family: YES Discharged with spouse OBSERVATION patient END time: 1328 * Plan of Care - Martir Armas RN - 04/02/2023 12:00 PM CDT PRIMARY DIAGNOSIS: Abdominal pain OUTPATIENT/OBSERVATION GOALS TO BE MET BEFORE DISCHARGE: ADLs back to baseline: Yes Activity and level of assistance: Ambulating independently. Pain status: Pain free. Return to near baseline physical activity: Yes [employer] Nurse Safe discharge environment identified: Yes Barriers to discharge: No Entered by: Martir Armas RN 04/02/2023 Please review provider order for any additional goals. Nurse to notify provider when observation goals have been met and patient is ready for discharge. A&O X4. VSS. Independent in room. Tolerating low fiber diet and oral medications. No IV access.Colorectal following and has cleared for discharge and pt will have to follow outpatient. Pt reports pain in right lower abdomen, 1mg PO dilaudid given. Pt negative for otho bp. Discharge today. Bed in lowest position and call light within reach. Blood pressure (!) 141/83, pulse 84, temperature 98.1 ??F (36.7 ??C), temperature source Oral, resp. rate 16, height 1.6 m (5' 3), weight 67.6 kg (149 lb), SpO2 100 %. * Plan of Care - Martir Armas RN - 04/02/2023 8:00 AM CDT PRIMARY DIAGNOSIS: Abdominal pain OUTPATIENT/OBSERVATION GOALS TO BE MET BEFORE DISCHARGE: ADLs back to baseline: Yes Activity and level of assistance: Ambulating independently. Pain status: Pain free. Return to near baseline physical activity: Yes [employer] Nurse Safe discharge environment identified: Yes Barriers to discharge: No Entered by: Martir Armas RN 04/02/2023 Please review provider order for any additional goals. Nurse to notify provider when observation goals have been met and patient is ready for discharge. A&O X4. VSS. Independent in room. Tolerating low fiber diet and oral medications. No IV access.Colorectal following and has cleared for discharge and pt will have to follow outpatient. Pt reports pain in right lower abdomen, 1mg PO dilaudid given. Pt negative for otho bp. Discharge later today. Bed in lowest position and call light within reach. Blood pressure (!) 141/83, pulse 84, temperature 98.1 ??F (36.7 ??C), temperature source Oral, resp. rate 16, height 1.6 m (5' 3), weight 67.6 kg (149 lb), SpO2 100 %. * Plan of Care - Leesa Vernon RN - 04/02/2023 4:00 AM CDT PRIMARY DIAGNOSIS: Abdominal pain OUTPATIENT/OBSERVATION GOALS TO BE MET BEFORE DISCHARGE: ADLs back to baseline: Yes Activity and level of assistance: Ambulating independently. Pain status: Pain free. Return to near baseline physical activity: Yes [employer] Nurse Safe discharge environment identified: Yes Barriers to discharge: No BP 118/66 (BP Location: Right arm) Pulse 86 Temp 98 ??F (36.7 ??C) (Oral) Resp 17 Ht 1.6 m (5' 3) Wt 67.6 kg (149 lb) SpO2 96% BMI 26.39 kg/m?? Pt is A&Ox4. VSS on RA. Pt denies pain. Pt on low fiber diet. No IV access. Colorectal following. Entered by: Leesa Vernon RN 04/02/2023 Please review provider order for any additional goals. Nurse to notify provider when observation goals have been met and patient is ready for discharge. * Plan of Care - Leesa Vernon RN - 04/02/2023 12:00 AM CDT PRIMARY DIAGNOSIS: Abdominal pain OUTPATIENT/OBSERVATION GOALS TO BE MET BEFORE DISCHARGE: ADLs back to baseline: Yes Activity and level of assistance: Ambulating independently. Pain status: Pain free. Return to near baseline physical activity: Yes [employer] Nurse Safe discharge environment identified: Yes Barriers to discharge: No Entered by: Leesa Vernon RN 04/02/2023 Please review provider order for any additional goals. Nurse to notify provider when observation goals have been met and patient is ready for discharge. * Plan of Care - Kelsey Peralta RN - 04/01/2023 8:00 PM CDT PRIMARY DIAGNOSIS: Dizziness,Weakness & Abdominal Pain OUTPATIENT/OBSERVATION GOALS TO BE MET BEFORE DISCHARGE: 1. Pain Status: Improved-controlled with oral pain medications. 2. Return to near baseline physical activity: No 3. Cleared for discharge by consultants (if involved): No [employer] Nurse Safe discharge environment identified: Yes Barriers to discharge: Yes Entered by: Kelsey Peralta RN 04/01/2023 Patient is A & O x 4, Lung sounds CTA. Bowel sounds hyperactive, LBM 04/01. Patient is independent, took a shower, expressed feeling fresh afterwards. Pt has not reported pain this shift. Scheduled Tylenol given at 2119. Denies any rectal bleeding, continent of bladder, voiding adequately. Pt onLow fibre diet, tolerating well. After the shower, patient's IV became wet and loose. Sanitation Technician tried to change the dressing but the IV came out. Pt refused to get a new one, said she can have a new onetomorrow if needed. Hgb 8.7, Colorectal surgery is following. Will continue to monitor. BP (!) 143/77 (BP Location: Right arm) Pulse 84 Temp 98.1 ??F (36.7 ??C) (Oral) Resp 16 Ht 1.6 m (5' 3) Wt 67.6 kg (149 lb) SpO2 96% BMI 26.39 kg/m?? Please review provider order for any additional goals. Nurse to notify provider when observation goals have been met and patient is ready for discharge. * Plan of Care - Kelsey Peralta RN - 04/01/2023 4:00 PM CDT PRIMARY DIAGNOSIS: Dizziness,Weakness & Abdominal Pain OUTPATIENT/OBSERVATION GOALS TO BE MET BEFORE DISCHARGE: 1. Pain Status: Improved-controlled with oral pain medications. 2. Return to near baseline physical activity: No 3. Cleared for discharge by consultants (if involved): No [employer] Nurse Safe discharge environment identified: Yes Barriers to discharge: Yes Entered by: Kelsey Peralta RN 04/01/2023 Patient is A & O x 4, Lung sounds CTA. Bowel sounds hyperactive, LBM 04/01. Patient is independent, has not reported pain so far during this shift. Denies any rectal bleeding, continent of bladder, voiding adequately. Pt on Low fibre diet, tolerating well. Hgb 8.7, PIV to left hand infusing LR at 100 ml/hr, Colorectal surgery is following. BP 125/75 (BP Location: Right arm) Pulse 102 Temp 98.6 ??F (37 ??C) (Oral) Resp 17 Ht 1.6 m(5' 3) Wt 67.6 kg (149 lb) SpO2 97% BMI 26.39 kg/m?? Please review provider order for any additional goals. Nurse to notify provider when observation goals have been met and patient is ready for discharge. * Pharmacy-Admission Medication History - Ron Villagomez [facility] - 04/01/2023 9:18 AM CDT Pharmacist Admission Medication History Admission medication history is complete. The information provided in this note is only as accurateas the sources available at the time of the update. Medication reconciliation/reorder completed by provider prior to medication history? Yes Information Source(s): [facility] Pertinent Information: None Changes made to [facility] [employer] medication list: Added: Cyanocobalamin inj, Infliximab inj [both clinic administered] Deleted: None Changed: None Medication Affordability: Not including over the counter (OTC) medications, was there a time in the past 3 months when you did not take your medications as prescribed because of cost?: No Allergies reviewed with patient and updates made in EHR: no Medication History Completed By: Ron Villagomez Nicol 04/01/2023 9:19 AM Prior to Admission medications Medication Sig Last Dose Taking? Auth Provider Research And Development Researcher End Date acetaminophen (TYLENOL) 650 MG CR tablet Take 650 mg by mouth At Bedtime 03/30/2023 at Yes Unknown, Entered By History albuterol (PROAIR HFA/PROVENTIL HFA/VENTOLIN HFA) 108 (90 Base) MCG/ACT inhaler Inhale 2 puffs intothe lungs every 6 hours as needed for shortness of breath, wheezing or cough More than a month Yes Unknown, Entered By History Yes bisacodyl (DULCOLAX) [address] 1 suppository (10 mg) rectally 2 times daily as neededfor constipation Unknown Yes Eva Hammond, cyanocobalamin (CYANOCOBALAMIN) 1000 MCG/ML injection Inject 1,000 mcg as directed every 30 days More than a month at Was due 03/20/23 Yes Unknown, Entered By History enoxaparin ANTICOAGULANT (LOVENOX) 40 MG/0.4ML syringe Inject 0.4 mLs (40 mg) Subcutaneous every 24hours for 28 days 03/30/2023 at 1100 Yes Homar Colón MD 04/23/23 esomeprazole (NEXIUM) [address] capsule Take 40 mg by mouth 2 times daily (before meals) Take 30-60 minutes before eating. 03/31/2023 at x1 Yes Unknown, Entered By History famotidine (PEPCID) 40 MG tablet Take 40 mg by mouth At Bedtime 03/30/2023 Yes Unknown, Entered By History inFLIXimab (REMICADE) 100 MG injection Inject 5 mg/kg into the vein at weeks 0, 2 and 6, then every8 weeks. Infuse by IV route. 03/04/2023 at Next dose (wk 6) due 04/01 Yes Unknown, Entered By History methocarbamol (ROBAXIN) 500 MG tablet Take 1 tablet (500 mg) by mouth 4 times daily as needed for muscle spasms Unknown Yes Eva Hammond DO montelukast (SINGULAIR) 10 MG tablet Take 10 mg by mouth At Bedtime 03/30/2023 at HS Yes Unknown, Entered By History Yes nortriptyline (PAMELOR) 25 MG capsule Take 25 mg by mouth At Bedtime 03/30/2023 at HS Yes Unknown, Entered By History Yes ondansetron (ZOFRAN ODT) 4 MG ODT tab Take 1 tablet (4 mg) by mouth every 8 hours as needed for nausea Unknown Yes Eva Hammond DO polyethylene glycol (MIRALAX) 17 GM/Dose powder Take 17 g by mouth daily Unknown Yes Eva Hammond DO predniSONE (DELTASONE) 10 MG tablet Take 1 tablet (10 mg) by mouth daily for 7 days, THEN 0.5 tablets (5 mg) daily for 7 days. 03/31/2023 at AM (1 dose of 10mg left, then 5mg x7 days) Yes Homar Colón MD No 04/10/23 sennosides (SENOKOT) 8.6 MG tablet Take 1-2 tablets by mouth 2 times daily as needed for constipation Unknown Yes Eva Hammond DO traZODone (DESYREL) 100 MG tablet Take 200 mg by mouth At Bedtime 03/30/2023 at HS Yes Unknown, Entered By History Yes * Plan of Care - Kaylie Noonan RN - 04/01/2023 8:00 AM CDT PRIMARY DIAGNOSIS: GENERALIZED WEAKNESS/Abdominal Sx OUTPATIENT/OBSERVATION GOALS TO BE MET BEFORE DISCHARGE 1. Orthostatic performed: No 2. Tolerating PO medications: Yes 3. Return to near baseline physical activity: Yes 4. Cleared for discharge by consultants (if involved): No [employer] Nurse Safe discharge environment identified: Yes Barriers to discharge: Yes Entered by: Kaylie Noonan RN 04/01/2023 3:02 PM Pt A/O x4 and makes needs known. Independent of mobility. C/O 4-5/10 abdominal pain. 1mg PO dilaudid given for pain and was effective. LR restarted at 100 mL/hr. Stool sample collected. Enteric precautions maintained. Low fiber diet, tolerating. VSS. Vital signs: Temp: 98.7 ??F (37.1 ??C) Temp src: Oral BP: 124/75 Pulse: 95 Resp: 18 SpO2: 97 % O2 Device: None (Room air) Height: 160 cm (5' 3) Weight: 67.6 kg (149 lb) Estimated body mass index is 26.39 kg/m?? as calculated from the following: Height as of this encounter: 1.6 m (5' 3). Weight as of this encounter: 67.6 kg (149 lb). Please review provider order for any additional goals. Nurse to notify provider when observation goals have been met and patient is ready for discharge. * Plan of Care - Kaylie Noonan RN - 04/01/2023 8:00 AM CDT PRIMARY DIAGNOSIS: GENERALIZED WEAKNESS/Abdominal Sx OUTPATIENT/OBSERVATION GOALS TO BE MET BEFORE DISCHARGE 1. Orthostatic performed: No 2. Tolerating PO medications: Yes 3. Return to near baseline physical activity: Yes 4. Cleared for discharge by consultants (if involved): No [employer] Nurse Safe discharge environment identified: Yes Barriers to discharge: Yes Entered by: Kaylie Noonan RN 04/01/2023 3:05 PM Pt A/O x4 and makes needs known. Independent of mobility. C/O 4-5/10 abdominal pain. 1mg PO dilaudid given for pain and was effective. LR restarted at 100 mL/hr. Stool sample collected. Enteric precautions maintained. Low fiber diet, tolerating. VSS. *1200 addendum: enteric precautions discontinued. Ambulated the unit. No s/s of bleeding. Scheduledtylenol given. Vital signs: Temp: 98.7 ??F (37.1 ??C) Temp src: Oral BP: 124/75 Pulse: 95 Resp: 18 SpO2: 97 % O2 Device: None (Room air) Height: 160 cm (5' 3) Weight: 67.6 kg (149 lb) Estimated body mass index is 26.39 kg/m?? as calculated from the following: Height as of this encounter: 1.6 m (5' 3). Weight as of this encounter: 67.6 kg (149 lb). Please review provider order for any additional goals. Nurse to notify provider when observation goals have been met and patient is ready for discharge. * Plan of Care - Tyler Roberson RN - 04/01/2023 5:41 AM CDT PRIMARY DIAGNOSIS: Dizziness, Abnormal Stools OUTPATIENT/OBSERVATION GOALS TO BE MET BEFORE DISCHARGE: ADLs back to baseline: Yes Activity and level of assistance: Ambulating independently. Pain status: Improved but still requiring IV narcotics. Return to near baseline physical activity: Yes [employer] Nurse Safe discharge environment identified: Yes Barriers to discharge: Yes Entered by: Tyler Roberson RN 04/01/2023 5:41 AM BP 116/72 (BP Location: Right arm) Pulse 87 Temp 98 ??F (36.7 ??C) (Oral) Resp 16 Ht 1.6 m (5' 3) Wt 67.6 kg (149 lb) SpO2 98% BMI 26.39 kg/m?? Pt is A&O x4, Pt tolerated oral medications. Pt was curious if she will be receiving her Remicade while she is admitted and wants to know if she will also be seeing Gastroenterology as well. Pt has had IVF at 100 ml/hr overnight. Pt is still needing stool samples collected. Pt is sleeping and able to make needs known. Will continue to follow plan of care. Please review provider order for any additional goals. Nurse to notify provider when observation goals have been met and patient is ready for discharge. * Plan of Care - Tyler Roberson RN - 04/01/2023 12:06 AM CDT ROOM # 221 Living Situation (if not independent, order SW consult): Home w/ spouse Facility name: chain person: Dominic [phone] Activity level at baseline: Ind Activity level on admit: Ind Who will be transporting you at discharge: Dominic Patient registered to observation; given Patient Bill of Rights; given the opportunity to ask questions about observation status and their plan of care. Patient has been oriented to the observation room, bathroom and call light is in place. Discussed discharge goals and expectations with patient/family. 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 [address] [facility] [address] [place] [address] Alisa Norman PA-C [facility] [address] [place] [address] [place] [id number] Scheduled Orders Name Type Priority Associated Diagnoses Orde r Schedule CT Abdomen Pelvis w Contrast Imaging Routine Crohn disease (H) One time imaging for 1 Occurrences starting 04/02/2023 until 04/02/2023 documented as of this encounter Procedures Procedure Name Priority Date/Time Associated Diagnosis Comments BASIC METABOLIC PANEL Routine 04/02/2023 6:22 AM CDT CBC WITH PLATELETS Routine 04/02/2023 6: 22 AM CDT ENTERIC BACTERIA AND VIRUS PANEL BY PCR STAT 04/01/2023 8:14 AM CDT C. DIFFICILE TOXIN B PCR WITH REFLEX TO C. DIFFICILE ANTIGEN AND TOXINS A/B EIA STAT 04/01/2023 8:13 AM CDT TYPE AND SCREEN, ADULT Routine 7:58 AM CDT ABO/RH TYPE AND SCREEN Routine 7:58 AM CDT BASIC METABOLIC PANEL Routine 04/01/2023 7:02 AM CDT CBC WITH PLATELETS Routine 04/01/2023 7: 02 AM CDT EKG 12-LEAD, TRACING ONLY STAT 03/31/2023 8:[address] ABDOMEN PELVIS W CONTRAST STAT 03/31/2023 5:40 PM CDT ROUTINE UA WITH MICROSCOPIC REFLEX TO CULTURE STAT 03/31/2023 5:17 PM CDT EXTRA TUBE STAT 03/31/2023 4:08 PM CDT EXTRA BLOOD BANK PURPLE TOP TUBE STAT 03/31/2023 4:08 PM CDT EXTRA BLOOD BANK PURPLE TOP TUBE STAT 03/31/2023 4:08 PM CDT EXTRA RED TOP TUBE STAT 03/31/2023 4: 08 PM CDT EXTRA BLUE TOP TUBE STAT 03/31/2023 4 :08 PM CDT CBC WITH PLATELETS AND DIFFERENTIAL STAT 03/31/2023 4:08 PM CDT CBC WITH PLATELETS & DIFFERENTIAL STAT 03/31/2023 4:08 PM CDT LIPASE Add-On 03/31/2023 4:08 PM CDT COMPREHENSIVE METABOLIC PANEL STAT 03/31/2023 4:08 PM CDT BASIC METABOLIC PANEL STAT 03/31/2023 4:08 PM CDT documented in this encounter Results * (ABNORMAL) CBC with platelets (04/02/2023 6:22 AM CDT) [facility] WBC Count 7.3 4.0 - 11.0 10e3/uL 04/02/2023 6:38 AM CDT [facility] RBC Count 3.04(L) 3.80 - 5.20 10e6/uL 04/02/2023 6:38 AM CDT [facility] Hemoglobin 8.6(L) 11.7 - 15.7 g/dL 04/02/2023 6:38 AM CDT [facility] Hematocrit 27.6(L) 35.0 - 47.0 % 04/02/2023 6:38 AM CDT [facility] MCV 91 78 - 100 fL 04/02/2023 6:38 AM CDT [facility] MCH 28.3 26.5 - 33.0 pg 04/02/2023 6:38 AM CDT [facility] MCHC 31.2(L) 31.5 - 36.5 g/dL 04/02/2023 6:38 AM CDT [facility] RDW 15.3(H) 10.0 - 15.0 % 04/02/2023 6:38 AM CDT [facility] Platelet Count 339 150 - 450 10e3/uL 04/02/2023 6:38 AM CDT [facility] Blood STRUCTURE OF RIGHT UPPER LIMB / Unknown Venipuncture / Unknown 04/02/2023 6:22 AM CDT 04/02/2023 6:34 AM CDT Jackie Hooks PA-C LAB - BLOOD ORD ERABLES [facility] [address] Lab (1st floor, no room number) [place] [address], [facility] [phone] * (ABNORMAL) Basic metabolic panel (04/02/2023 6:22 AM CDT) Pathologist [facility] Sodium 145 136 - 145 mmol/L 04/02/2023 6:59 AM CDT LABORATORY Potassium 3.7 3.4 - 5.3 mmol/L 04/02/2023 6:59 AM CDT LABORATORY Chloride 110(H) 98 - 107 mmol/L 04/02/2023 6:59 AM CDT LABORATORY Carbon Dioxide (CO2) 26 22 - 29 mmol/L 04/02/2023 6:59 AM CDT LABORATORY Anion Gap 9 7 - 15 mmol/L 04/02/2023 6:59 AM CDT LABORATORY Urea Nitrogen 13.4 8.0 - 23.0 mg/dL 04/02/2023 6:59 AM CDT LABORATORY Creatinine 0.97(H) 0.51 - 0.95 mg/dL 04/02/2023 6:59 AM CDT LABORATORY Calcium 8.8 8.8 - 10.2 mg/dL 04/02/2023 6:59 AM CDT LABORATORY Glucose 88 70 - 99 mg/dL 04/02/2023 6:59 AM CDT LABORATORY GFR Estimate 65 >60 mL/min/1.7 3m2 04/02/2023 6:59 AM CDT LABORATORY Blood STRUCTURE OF RIGHT UPPER LIMB / Unknown Venipuncture / Unknown 04/02/2023 6:22 AM CDT 04/02/2023 6:34 AM CDT Jackie Hooks PA-C LAB - BLOOD ORD ERABLES LABORATORY [facility] [address] Lab (1st floor, no room number) [place] [address], [facility] [phone] * Enteric Bacteria and Virus Panel PCR (04/01/2023 8:14 AM CDT) Pathologist [facility] Campylobacter species Negative Negative 04/01/2023 12:45 PM CDT [facility] Salmonella species Negative Negative 2022 12:45 PM CDT [facility] Vibrio species Negative Negative 04/01/2023 12:45 PM CDT [facility] Vibrio cholerae Negative Negative 12:45 PM CDT [facility] Yersinia enterocolitica Negative Negative 04/01/2023 12:45 PM CDT [facility] Enteropathogenic E. coli (EPEC) Negative Negative, NA 04/01/2023 12:45 PM CDT [facility] Shiga-like toxin-producing E. coli (STEC) Negative Negative 04/01/2023 12:45 PM CDT [facility] Shigella/Enteroinvas tammi E. coli (EIEC) Negative Negative 04/01/2023 12:45 PM CDT [facility] Cryptosporidium species Negative Negative 04/01/2023 12:45 PM CDT [facility] Giardia lamblia Negative Negative 12:45 PM CDT [facility] Norovirus Gl/Gll Negative Negative 04/01/20 12:45 PM CDT [facility] Rotavirus A Negative Negative 04/01/2023 12:45 PM CDT [facility] Plesiomonas shigelloides Negative Negative 04/01/2023 12:45 PM CDT [facility] Enteroaggregative E. coli (EAEC) Negative Negative 04/01/2023 12:45 PM CDT [facility] Enterotoxigenic E. coli (ETEC) Negative Negative 04/01/2023 12:45 PM CDT [facility] E. coli O157 NA Negative, NA 04/01/2023 12:45 PM CDT [facility] Cyclospora cayetanensis Negative Negative 04/01/2023 12:45 PM CDT [facility] Entamoeba histolytica Negative Negative 04/01/2023 12:45 PM CDT [facility] Adenovirus F40/41 Negative Negative 023 12:45 PM CDT [facility] Astrovirus Negative Negative 04/01/2023 12:45 PM CDT [facility] Sapovirus Negative Negative 04/01/2023 12:45 PM CDT [facility] Stool RECTAL CONTENTS / Unknown Non-blood Collection / Unknown 04/01/2023 8:14 AM CDT 04/01/2023 8:21 AM CDT Narrative [facility] - 04/01/2023 12:45 PM CDT Assay performed using the FDA-cleared HexaTechArray GI Panel from [employer] ??A negative result should not rule [...] by the Infectious Diseases Diagnostic Laboratory at [facility]. This laboratory is certified under the Clinical Laboratory Improvement Amendments of 1988 (CLIA-88) as qualified to perform high complexity clinical laboratory testing. Odalys Knight PA-C LAB - MICRO GENE [facility] ORDERABLES [facility] Inf. Diseases Diag. Lab [address], [address] [place] [address], [facility] [phone] * C. difficile Toxin B PCR with reflex to C. difficile Antigen and Toxins A/B EIA (04/01/2023 8:13 AMCDT) Pathologist [facility] C Difficile Toxin B by PCR Negative Negative 04/01/2023 11:56 AM CDT [facility] Comment:A negative result do es not exclude actual disease due to C. difficile and may be due to improper collection, handling and storage of the specimen or the number of organisms in the specimen is below the detection limit of the assay. Stool RECTAL CONTENTS / Unknown Non-blood Collection / Unknown 04/01/2023 8:13 AM CDT 04/01/2023 8:21 AM CDT Narrative [facility] - 04/01/2023 11:56 AM CDT The [employer] Xpert C. difficile Assay, performed on the [employer] GeneXpert?? Instrument Systems, is a qualitative in [...] an aid in the diagnosis of CDI. Odalys Knight PA-C LAB - MICRO GENE RAL ORDERABLES [facility] Inf. Diseases Diag. Lab [address], [address] [place] [address], [facility] [phone] * Adult Type and Screen (04/01/2023 7:58 AM CDT) ABO/RH(D) A POS 04/01/2023 7:48 AM CDT [facility] BLOOD BANK Antibody Screen Negative Negative 04/01/2023 7:48 AM CDT [facility] SPECIMEN EXPIRATION DATE [id number] 04/01/2023 7:48 AM CDT [facility] Blood STRUCTURE OF RIGHT UPPER LIMB / Unknown Venipuncture / Unknown 04/01/2023 7:58 AM CDT 04/01/2023 8:13 AM CDT Jackie Hooks PA-C LAB - BLOOD BAN K TEST ORDER [facility] BLOOD BANK [address] [place] [address], [facility] * (ABNORMAL) CBC with platelets (04/01/2023 7:02 AM CDT) WBC Count 7.9 4.0 - 11.0 10e3/uL 04/01/2023 7:32 AM CDT [facility] RBC Count 3.08(L) 3.80 - 5.20 10e6/uL 04/01/2023 7:32 AM CDT [facility] Hemoglobin 8.7(L) 11.7 - 15.7 g/dL 04/01/2023 7:32 AM CDT [facility] Hematocrit 27.7(L) 35.0 - 47.0 % 04/01/2023 7:32 AM CDT [facility] MCV 90 78 - 100 fL 04/01/2023 7:32 AM CDT [facility] MCH 28.2 26.5 - 33.0 pg 04/01/2023 7:32 AM CDT [facility] MCHC 31.4(L) 31.5 - 36.5 g/dL 04/01/2023 7:32 AM CDT [facility] RDW 15.3(H) 10.0 - 15.0 % 04/01/2023 7:32 AM CDT [facility] Platelet Count 339 150 - 450 10e3/uL 04/01/2023 7:32 AM CDT [facility] Blood STRUCTURE OF RIGHT UPPER LIMB / Unknown Venipuncture / Unknown 04/01/2023 7:02 AM CDT 04/01/2023 7:28 AM CDT Odalys Knight PA-C LAB - BLOOD [place] [facility] LABORAT[facility] Lab [address] [facility] Lab (1st floor, no room number) [place] [address], [facility] [phone] * (ABNORMAL) Basic metabolic panel (04/01/2023 7:02 AM CDT) Sodium 141 136 - 145 mmol/L 04/01/2023 7:51 AM CDT [facility] Potassium 3.6 3.4 - 5.3 mmol/L 04/01/2023 7:51 AM CDT LABORATORY Chloride 109(H) 98 - 107 mmol/L 04/01/2023 7:51 AM CDT [facility] Carbon Dioxide (CO2) 24 22 - 29 mmol/L 04/01/2023 7:51 AM CDT [facility] Anion Gap 8 7 - 15 mmol/L 04/01/2023 7:51 AM CDT [facility] Urea Nitrogen 12.4 8.0 - 23.0 mg/dL 04/01/2023 7:51 AM CDT [facility] Creatinine 0.89 0.51 - 0.95 mg/dL 04/01/2023 7:51 AM CDT [facility] Calcium 8.7(L) 8.8 - 10.2 mg/dL 04/01/2023 7:51 AM CDT [facility] Glucose 89 70 - 99 mg/dL 04/01/2023 7:51 AM CDT [facility] GFR Estimate 72 >60 mL/min/1.7 3m2 04/01/2023 7:51 AM CDT [facility] Blood STRUCTURE OF RIGHT UPPER LIMB / Unknown Venipuncture / Unknown 04/01/2023 7:02 AM CDT 04/01/2023 7:28 AM CDT Odalys Knight PA-C LAB - BLOOD ORDE SAMANTHA [facility] Lab [address] Lab (1st floor, no room number) [place] [address] [phone] * EKG 12 lead (03/31/2023 8:17 PM CDT) Systolic Blood Pressure mmHg RADIOLOGY RESULTS Diastolic Blood Pressure mmHg RADIOLOGY RESULTS Ventricular Rate 84 BPM RAD IOLOGY RESULTS Atrial Rate 84 BPM RADIOLOG Y RESULTS PA Interval 138 ms RADIOLOG Y RESULTS QRS Duration 76 ms RADIOLO GY RESULTS QT 376 ms RADIOLOGY RESULTS QTc 444 ms RADIOLOGY RESULTS P [place] 40 degrees RADIOLOGY RESULTS R AXIS -15 degrees RADIOLOGY RESULTS T [place] 45 degrees RADIOLOGY RESULTS Interpretation ECG Sinus rhythm Minimal voltage criteria for LVH, may be normal variant Borderline ECG No previous ECGs available Confirmed by - EMERGENCY ROOM, PHYSICIAN ([id number]), state editor EMILIO CERVANTES ([id number]) on 04/01/2023 7:11:59 AM RADIOLOGY RESULTS 03/31/2023 8:17 PM CDT 04/01/2023 7:11 AM CDT Stan Toure MD ECG ORDERABLES RADIOLOGY RESULTS * CT Abdomen Pelvis w Contrast (03/31/2023 5:40 PM CDT) Anatomical Region Laterality Modality Abdomen/Pelvis, SUBRAD CT TIFFANIE DY, UMP CT ABDOMEN PELVIS, RAD CT Computed Tomography 03/31/2023 5:40 PM CDT Impressions 03/31/2023 6:01 PM CDT IMPRESSION: 1. ??Postop changes ileocolic resection with wall thickening at the anastomosis and stranding/edema in the mesentery. Tiny extraluminal gas collection near the anastomosis presumed postoperative. No other findings for free air. 2. ??No evidence for abscess formation. 3. ??Small bowel loop proximal to the anastomosis is distended with fluid and may represent a postoperative ileus. No definite findings for obstruction. Narrative 03/31/2023 6:01 PM CDT EXAM: CT ABDOMEN PELVIS W CONTRAST LOCATION: [facility] DATE: 03/31/2023 INDICATION: Abd pain, recent iliocolic resection on 03/21/2023. History of Crohn's disease. COMPARISON: CT abdomen and pelvis 03/19/2023 TECHNIQUE: CT scan of the abdomen and pelvis was performed following injection of IV contrast. Multiplanar reformats were obtained. Dose reduction techniques were used. CONTRAST: 79 mL Isovue 370 FINDINGS: LOWER CHEST: Normal. HEPATOBILIARY: Cholecystectomy. PANCREAS: Normal. SPLEEN: Small hypodense splenic lesion too small to further characterize, but likely represents a cyst. ADRENAL GLANDS: Normal. KIDNEYS/BLADDER: Right nephrectomy. BOWEL: Recent postoperative changes ileocolic resection, with wall thickening and tiny gas pocket at the surgical anastomosis, and stranding in the adjacent mesentery. No localized fluid collections or evidence for abscess. The small bowel proximal to the anastomosis is distended with fluid, but no definite evidence for obstruction. LYMPH NODES: Normal. VASCULATURE: Atherosclerotic disease abdominal aorta. PELVIC ORGANS: Hysterectomy. No free pelvic fluid. MUSCULOSKELETAL: Degenerative disc disease L5 level. Procedure Note Yury Shepherd MD - 03/31/2023 EXAM: CT ABDOMEN PELVIS W CONTRAST LOCATION: [facility] DATE: 03/31/2023 INDICATION: Abd pain, recent iliocolic resection on 03/21/2023. History ofCrohn's disease. COMPARISON: CT abdomen and pelvis 03/19/2023 TECHNIQUE: CT scan of the abdomen and pelvis was performed followinginjection of IV contrast. Multiplanar reformats were obtained. Dosereduction techniques were used. CONTRAST: 79 mL Isovue 370 FINDINGS: LOWER CHEST: Normal. HEPATOBILIARY: Cholecystectomy. PANCREAS: Normal. SPLEEN: Small hypodense splenic lesion too small to further characterize,but likely represents a cyst. ADRENAL GLANDS: Normal. KIDNEYS/BLADDER: Right nephrectomy. BOWEL: Recent postoperative changes ileocolic resection, with wallthickening and tiny gas pocket at the surgical anastomosis, and strandingin the adjacent mesentery. No localized fluid collections or evidence forabscess. The small bowel proximal to the anastomosis is distended with fluid, but no definite evidence forobstruction. LYMPH NODES: Normal. VASCULATURE: Atherosclerotic disease abdominal aorta. PELVIC ORGANS: Hysterectomy. No free pelvic fluid. MUSCULOSKELETAL: Degenerative disc disease L5 level. IMPRESSION: 1. Postop changes ileocolic resection with wall thickening at theanastomosis and stranding/edema in the mesentery. Tiny extraluminal gascollection near the anastomosis presumed postoperative. No other findingsfor free air. 2. No evidence for abscess formation. 3. Small bowel loop proximal to the anastomosis is distended with fluidand may represent a postoperative ileus. No definite findings forobstruction. Isreal Stark MD IMG CT ORDERABL ES * (ABNORMAL) UA with Microscopic reflex to Culture (03/31/2023 5:17 PM CDT) Color Urine Light Yellow Colorless, Straw, Light Yellow, Yellow 03/31/2023 5:29 PM CDT [facility] Appearance Urine Clear Clear 03/31/20 5:29 PM CDT [facility] Glucose Urine Negative Negative mg/dL 03/31/2023 5:29 PM CDT [facility] Bilirubin Urine Negative Negative 5:29 PM CDT [facility] Ketones Urine Negative Negative mg/dL 03/31/2023 5:29 PM CDT [facility] Specific [place] Urine 1.010 1.003 - 1.035 03/31/2023 5:29 PM CDT [facility] Blood Urine Negative Negative 03/31/2023 5:29 PM CDT LABORATORY pH Urine 5.0 5.0 - 7.0 03/31/2023 5:29 PM CDT [facility] Protein Albumin Urine Negative Negative mg/dL 03/31/2023 5:29 PM CDT [facility] Urobilinogen Urine Normal Normal, 2.0 mg/dL 03/31/2023 5:29 PM CDT [facility] Nitrite Urine Negative Negative 03/31/2023 5:29 PM CDT [facility] Leukocyte Esterase Urine Negative Negative 03/31/2023 5:29 PM CDT [facility] Mucus Urine Present(A) None Seen /LPF 03/31/2023 5:29 PM CDT [facility] RBC Urine <1 <=2 /HPF 03/31/2023 5:29 PM CDT [facility] WBC Urine <1 <=5 /HPF 03/31/2023 5:29 PM CDT [facility] Urine URINE SPECIMEN OBTAINED BY CLEAN CATCH PROCEDURE / Unknown Non-blood Collection / Unknown 03/31/2023 5:17 PM CDT 03/31/2023 5:22 PM CDT Narrative [facility] - 03/31/2023 5:29 PM CDT Urine Culture not indicated Isreal Stark MD LAB - URINE ORD ERABLES [facility] [address] Lab (1st floor, no room number) [place] [address], [facility] [phone] * Lipase (03/31/2023 4:08 PM CDT) Lipase 56 13 - 60 U/L 03/31/2023 8:31 PM CDT [facility] Blood BLOOD SPECIMEN / Unknown Venipuncture / Unknown 03/31/2023 4:08 PM CDT 03/31/2023 4:13 PM CDT Stan Toure MD LAB - BLOOD ORD ERABLES [facility] [address] Lab (1st floor, no room number) [place] [address], [facility] [phone] * (ABNORMAL) Comprehensive metabolic panel (03/31/2023 4:08 PM CDT) Sodium 140 136 - 145 mmol/L 03/31/2023 5:13 PM CDT [facility] Potassium 4.1 3.4 - 5.3 mmol/L 03/31/2023 5:13 PM CDT [facility] Chloride 105 98 - 107 mmol/L 03/31/2023 5:13 PM CDT [facility] Carbon Dioxide (CO2) 20(L) 22 - 29 mmol/L 03/31/2023 5:13 PM CDT [facility] Anion Gap 15 7 - 15 mmol/L 03/31/2023 5:13 PM CDT [facility] Urea Nitrogen 18.5 8.0 - 23.0 mg/dL 03/31/2023 5:13 PM CDT [facility] Creatinine 1.03(H) 0.51 - 0.95 mg/dL 03/31/2023 5:13 PM CDT [facility] Calcium 9.7 8.8 - 10.2 mg/dL 03/31/2023 5:13 PM CDT [facility] Glucose 112(H) 70 - 99 mg/dL 03/31/2023 5:13 PM CDT [facility] Alkaline Phosphatase 72 35 - 104 U/L 03/31/2023 5:13 PM CDT [facility] AST 29 0 - 45 U/L 03/31/2023 5:13 PM CDT [facility] Comment:Reference intervals for this test were updated on 02/17/2023 to more accurately reflect our healthy population. There may be differences in the flagging of prior results with similar values performed with this method. Interpretation of those prior results can be made in the context of the updated reference intervals. ALT 28 0 - 50 U/L 03/31/2023 5:13 PM CDT [facility] Comment:Reference intervals for this test were updated on 02/17/2023 to more accurately reflect our healthy population. There may be differences in the flagging of prior results with similar values performed with this method. Interpretation of those prior results can be made in the context of the updated reference intervals. Protein Total 7.0 6.4 - 8.3 g/dL 03/31/2023 5:13 PM CDT [facility] Albumin 3.9 3.5 - 5.2 g/dL 03/31/2023 5:13 PM CDT [facility] Bilirubin Total 0.3 <=1.2 mg/dL 03/31/2023 5:13 PM CDT [facility] GFR Estimate 60(L) >60 mL/min/1. 73m2 03/31/2023 5:13 PM CDT [facility] Blood BLOOD SPECIMEN / Unknown Venipuncture / Unknown 03/31/2023 4:08 PM CDT 03/31/2023 4:13 PM CDT Isreal Stark MD LAB - BLOOD ORD ERABLES [facility] Lab [address] Lab (1st floor, no room number) [place] [id number], [facility] [phone] * Extra Blood Bank Purple Top Tube (03/31/2023 4:08 PM CDT) Hold Specimen [facility] 03/31/2023 5:16 PM CDT [facility] Blood BLOOD SPECIMEN / Unknown Venipuncture / Unknown 03/31/2023 4:08 PM CDT 03/31/2023 4:13 PM CDT Stan Toure MD LAB - BLOOD ORD ERABLES [facility] Lab [address] Lab (1st floor, no room number) [place] [address], [facility] [phone] * Extra Blood Bank Purple Top Tube (03/31/2023 4:08 PM CDT) Hold Specimen [facility] 03/31/2023 5:16 PM CDT [facility] Blood BLOOD SPECIMEN / Unknown Venipuncture / Unknown 03/31/2023 4:08 PM CDT 03/31/2023 4:13 PM CDT Stan Toure MD LAB - BLOOD ORD ERABLES [facility] [address] Lab (1st floor, no room number) [place] [address], [facility] [phone] * Extra Red Top Tube (03/31/2023 4:08 PM CDT) Hold Specimen [facility] 03/31/2023 5:16 PM CDT [facility] Blood BLOOD SPECIMEN / Unknown Venipuncture / Unknown 03/31/2023 4:08 PM CDT 03/31/2023 4:13 PM CDT Stan Toure MD LAB - BLOOD ORD ERABLES [facility] [address] Lab (1st floor, no room number) [place] [address], [facility] [phone] * Extra Blue Top Tube (03/31/2023 4:08 PM CDT) Hold Specimen [facility] 03/31/2023 5:16 PM CDT [facility] Blood BLOOD SPECIMEN / Unknown Venipuncture / Unknown 03/31/2023 4:08 PM CDT 03/31/2023 4:13 PM CDT Stan Toure MD LAB - BLOOD ORD ERABLES [facility] [address] Lab (1st floor, no room number) [place] [address], [facility] [phone] * (ABNORMAL) CBC with platelets and differential (03/31/2023 4:08 PM CDT) Pathologist [facility] WBC Count 10.6 4.0 - 11.0 10e3/uL 03/31/2023 4:17 PM CDT [facility] RBC Count 3.60(L) 3.80 - 5.20 10e6/uL 03/31/2023 4:17 PM CDT [facility] Hemoglobin 10.3(L) 11.7 - 15.7 g/dL 03/31/2023 4:17 PM CDT [facility] Hematocrit 33.1(L) 35.0 - 47.0 % 03/31/2023 4:17 PM CDT [facility] MCV 92 78 - 100 fL 03/31/2023 4:17 PM CDT [facility] MCH 28.6 26.5 - 33.0 pg 03/31/2023 4:17 PM CDT [facility] MCHC 31.1(L) 31.5 - 36.5 g/dL 03/31/2023 4:17 PM CDT [facility] RDW 15.2(H) 10.0 - 15.0 % 03/31/2023 4:17 PM CDT [facility] Platelet Count 405 150 - 450 10e3/uL 03/31/2023 4:17 PM CDT [facility] % Neutrophils 82 % 03/31/2023 4:17 PM CDT [facility] % Lymphocytes 12 % 03/31/2023 4:17 PM CDT [facility] % Monocytes 3 % 03/31/2023 4:17 PM CDT [facility] % Eosinophils 1 % 03/31/2023 4:17 PM CDT [facility] % Basophils 0 % 03/31/2023 4:17 PM CDT [facility] % Immature Granulocytes 2 % 03/31/2023 4:17 PM CDT [facility] NRBCs per 100 WBC 0 <1 /100 023 4:17 PM CDT [facility] Absolute Neutrophils 8.5(H) 1.6 - 8.3 10e3/uL 03/31/2023 4:17 PM CDT [facility] Absolute Lymphocytes 1.3 0.8 - 5.3 10e3/uL 03/31/2023 4:17 PM CDT [facility] Absolute Monocytes 0.3 0.0 - 1.3 10e3/uL 03/31/2023 4:17 PM CDT [facility] Absolute Eosinophils 0.1 0.0 - 0.7 10e3/uL 03/31/2023 4:17 PM CDT [facility] Absolute Basophils 0.0 0.0 - 0.2 10e3/uL 03/31/2023 4:17 PM CDT [facility] Absolute Immature Granulocytes 0.2 <=0.4 10e3/uL 03/31/2023 4:17 PM CDT [facility] Absolute NRBCs 0.0 10e3/uL 03/31/2023 4:17 PM CDT [facility] Blood BLOOD SPECIMEN / Unknown Venipuncture / Unknown 03/31/2023 4:08 PM CDT 03/31/2023 4:13 PM CDT Stan Torue MD LAB - BLOOD ORD ERABLES [facility] [address] Lab (1st floor, no room number) [place] [address], [facility] [phone] * (ABNORMAL) Basic metabolic panel (BMP) (03/31/2023 4:08 PM CDT) Sodium 139 136 - 145 mmol/L 03/31/2023 4:35 PM [facility]T [facility] Potassium 3.9 3.4 - 5.3 mmol/L 03/31/2023 4:35 PM CDT [facility] Chloride 105 98 - 107 mmol/L 03/31/2023 4:35 PM CDT [facility] Carbon Dioxide (CO2) 21(L) 22 - 29 mmol/L 03/31/2023 4:35 PM CDT [facility] Anion Gap 13 7 - 15 mmol/L 03/31/2023 4:35 PM CDT [facility] Urea Nitrogen 18.7 8.0 - 23.0 mg/dL 03/31/2023 4:35 PM CDT [facility] Creatinine 1.01(H) 0.51 - 0.95 mg/dL 03/31/2023 4:35 PM CDT [facility] Calcium 9.6 8.8 - 10.2 mg/dL 03/31/2023 4:35 PM CDT [facility] Glucose 111(H) 70 - 99 mg/dL 03/31/2023 4:35 PM CDT [facility] GFR Estimate 62 >60 mL/min/1.7 3m2 03/31/2023 4:35 PM CDT [facility] Blood BLOOD SPECIMEN / Unknown Venipuncture / Unknown 03/31/2023 4:08 PM CDT 03/31/2023 4:13 PM CDT Stan Toure MD LAB - BLOOD ORD ERABLES [facility] [address] [facility] Lab (1st floor, no room number) [place] [address], [place] [phone] documented in this encounter Visit Diagnoses Diagnosis Abnormal stools- Primary Abnormal feces Dizziness Dizziness and giddiness History of colon surgery Abdominal pain, unspecified abdominal location Abnormal stools Abnormal feces RLQ abdominal pain Abdominal pain, right lower quadrant Crohn disease (H) Regional enteritis of unspecified site Dizziness Dizziness and giddiness History of colon surgery Abdominal pain, unspecified abdominal location documented in this encounter Admitting Diagnoses Diagnosis Abnormal stools Abnormal feces documented in this encounter Administered Medications Inactive Administered Medications - up to 3 most recent administrations Medication Order MAR Action Action Date Dose Rate Site 0.9% sodium chloride BOLUS Intravenous, 1,000 mL, ONCE, at 1,000 mL/hr, Administer over 1 Hours, On Fri03/31/23 at 1635, For 1 dose $New Bag 03/31/2023 4:42 PM CDT 1,000 mLs 1000 mL/hr acetaminophen (TYLENOL) tablet 975 mg 975 mg, Oral, EVERY 8 HOURS, First dose on Fri03/31/23 at 2300, Maximum acetaminophen dose from all sources = 75 mg/kg/day not to exceed 4 grams/day. $Given 04/02/2023 6:14 AM CDT 975 mg $Given 04/01/2023 9:19 PM CDT 975 mg $Given 04/01/2023 2:37 PM CDT 975 mg enoxaparin ANTICOAGULANT (LOVENOX) injection 40 mg 40 mg, Subcutaneous, EVERY 24 HOURS, First dose on Fri04/01/23 at 0800 $Given 04/02/2023 8:18 AM CDT 40 mg $Given 04/01/2023 9:13 AM CDT 40 mg famotidine (PEPCID) tablet 40 mg 40 mg, Oral, AT BEDTIME, First dose on Fri03/31/23 at 2300 $Given 04/01/2023 9:20 PM CDT 40 mg $Given 03/31/2023 11:16 PM CDT 40 mg HYDROmorphone (DILAUDID) half-tab 1 mg 1 mg, Oral, EVERY 4 HOURS PRN, moderate pain, IF pain not managed with non-pharmacological and non-opioid interventions, Starting on Fri03/31/23 at 2247, May use concomitant with non-opioid analgesics. $Given 04/02/2023 8:39 AM CDT 1 mg $Given 04/01/2023 10:34 AM CDT 1 mg HYDROmorphone (DILAUDID) injection 0.2 mg 0.2 mg, Intravenous, EVERY 2 HOURS PRN, moderate pain, IF patient cannot take oral opioid OR IF pain not managed with non-pharmacological, non-opioid, or oral opioid interventions if ordered, Starting on Fri03/31/23 at 2247, May use concomitant with non-opioid analgesics. $Given 03/31/2023 11:16 PM CDT 0.2 mg HYDROmorphone (PF) (DILAUDID) injection 0.5 mg 0.5 mg, Intravenous, EVERY 20 MIN PRN, severe pain, Starting on Fri03/31/23 at 2006, For 2 doses $Given 03/31/2023 8:33 PM CDT 0.5 mg iopamidol (ISOVUE-370) solution 120 mL 120 mL, Intravenous, ONCE, On Fri03/31/23 at 1720, For 1 dose $Given 03/31/2023 5:16 PM CDT 79 mLs lactated ringers infusion at 100 mL/hr, Intravenous, CONTINUOUS, Starting on Fri03/31/23 at 2300, Until Fri04/01/23 at 0859 $New Bag 03/31/2023 11:07 PM CDT 100 mL/hr lactated ringers infusion at 100 mL/hr, Intravenous, CONTINUOUS, Saline lock when tolerating PO, Starting on Fri04/01/23 at 1030, Until Fri04/01/23 at 1033 $New Bag 04/01/2023 10:29 AM CDT 100 mL/hr lactated ringers infusion at 100 mL/hr, Intravenous, CONTINUOUS, Saline lock when tolerating PO, Starting on Fri04/01/23 at 1100, Until Fri04/01/23 at 1559 $New Bag 04/01/2023 10:37 AM CDT 100 mL/hr metroNIDAZOLE (FLAGYL) tablet 500 mg Routine, 500 mg, Oral, 2 TIMES DAILY, First dose on Fri04/01/23 at 0930, Changed to Metronidazole 500mg BID per Automatic Dose Adjustment Policy., Indications: Possible post-op infection $Given 04/02/2023 8:18 AM CDT 500 mg $Given 04/01/2023 7:29 PM CDT 500 mg $Given 04/01/2023 10:29 AM CDT 500 mg montelukast (SINGULAIR) tablet 10 mg 10 mg, Oral, AT BEDTIME, First dose on Fri03/31/23 at 2300 $Given 04/01/2023 9:19 PM CDT 10 mg $Given 03/31/2023 11:02 PM CDT 10 mg naloxone (NARCAN) injection 0.2 mg 0.2 mg, Intravenous, EVERY 2 MIN PRN, opioid reversal, Starting on Fri03/31/23 at 2250, Administer intravenous route when available and notify [...] 2 MIN PRN, opioid reversal, Starting on Fri03/31/23 at 2250, Administer intramuscular if an intravenous route is [...] 2 MIN PRN, opioid reversal, Starting on Fri03/31/23 at 2250, Administer intravenous route when available and notify [...] 2 MIN PRN, opioid reversal, Starting on Fri03/31/23 at 2250, Administer intramuscular if an intravenous route is [...] mg, Oral, AT BEDTIME, First dose on Fri03/31/23 at 2300 $Given 04/01/2023 9:19 PM CDT 25 mg $Given 03/31/2023 11:02 PM CDT 25 mg ondansetron (ZOFRAN ODT) ODT tab 4 mg 4 mg, Oral, EVERY 6 HOURS PRN, nausea, vomiting, Starting on Fri03/31/23 at 2247, This is Step 1 of nausea and vomiting management. If nausea not resolved in 15 minutes, go to Step 2 prochlorperazine (COMPAZINE). With dry hands, peel back foil backing and gently remove tablet. Do not push oral disintegrating tablet through foil backing. Administer immediately on tongue and oral disintegrating tablet dissolves in seconds, then swallow with saliva. Liquid not required. $Given 03/31/2023 11:16 PM CDT 4 mg ondansetron (ZOFRAN) injection 4 mg 4 mg, Intravenous, EVERY 6 HOURS PRN, nausea, vomiting, Administer over 2-5 Minutes, Starting on Fri03/31/23 at 2247, Give IF patient unable to tolerate oral medication. This is Step 1 of nausea and vomiting management. If nausea not resolved in 15 minutes, go to Step 2 prochlorperazine (COMPAZINE). Irritant. pantoprazole (PROTONIX) EC tablet 40 mg 40 mg, Oral, 2 TIMES DAILY BEFORE MEALS, First dose on Fri04/01/23 at 0930, This therapy was substituted for esomeprazole (NEXIUM) 20 mg every morning before breakfast. $Given 04/02/2023 6:14 AM CDT 40 mg $Given 04/01/2023 4:22 PM CDT 40 mg $Given 04/01/2023 9:13 AM CDT 40 mg pantoprazole (PROTONIX) IV push injection 40 mg 40 mg, Intravenous, ONCE, On Fri03/31/23 at 2009, For 1 dose, Irritant. $Given 03/31/2023 8:33 PM CDT 40 mg predniSONE (DELTASONE) tablet 10 mg 10 mg, Oral, DAILY, First dose on Fri04/01/23 at 0930, For 1 dose $Given 04/01/2023 10:29 AM CDT 10 mg predniSONE (DELTASONE) tablet 5 mg 5 mg, Oral, DAILY, First dose on Fri04/02/23 at 0800, For 7 days $Given 04/02/2023 8:18 AM CDT [address] scan flush Intravenous, 100 mL, ONCE, On Fri03/31/23 at 1720, For 1 dose $Given 03/31/2023 5:17 PM CDT 60 mLs sodium chloride (PF) 0.9% PF flush 3 mL 3 mL, Intracatheter, EVERY 8 HOURS, First dose on Fri03/31/23 at 2300, And Q1H PRN, to lock peripheral IV dormant line. $Given 03/31/2023 11:08 PM CDT 3 mLs traZODone (DESYREL) tablet 200 mg 200 mg, Oral, AT BEDTIME, First dose on Fri03/31/23 at 2300 $Given 04/01/2023 9:19 PM CDT 200 mg $Given 03/31/2023 11:02 PM CDT 200 mg documented in this encounter Active and Recently Administered Medications Times are shown in CDT. Scheduled Medication Order 03/31/2023 04/01/2023 04/02/2023 0.9% sodium chloride BOLUS (COMPLETED) Intravenous, 1,000 mL, ONCE, at 1,000 mL/hr, Administer over 1 Hours, On Fri03/31/23 at 1635, For 1 dose 1642 ($New Bag - Provider: Brenda Jc, RN)2032 (Stopped - Provider: Natasha Frazier RN) acetaminophen (TYLENOL) tablet 975 mg 975 mg, Oral, EVERY 8 HOURS, First dose on Fri03/31/23 at 2300, Maximum acetaminophen dose from all sources = 75 mg/kg/day not to exceed 4 grams/day. 2302 ($Given - Provider: Tyler Roberson RN) 0633 ($Given - Provider: Tyler Roberson RN)1437 ($Given - Provider: Kaylie Noonan RN)2119 ($Given - Provider: Kelsey Peralta RN) 0614 ($Given - Provider: Leesa Vernon RN)1400 (Canceled Entry - Provider: Orders Generic Provider - Comment: Automatically canceled at discontinue of medication order) enoxaparin ANTICOAGULANT (LOVENOX) injection 40 mg 40 mg, Subcutaneous, EVERY 24 HOURS, First dose on Fri04/01/23 at 0800 0913 ($Given - Provider: Kaylie Noonan RN) 0818 ($Given - Provider: Martir Armas RN) famotidine (PEPCID) tablet 40 mg 40 mg, Oral, AT BEDTIME, First dose on Fri03/31/23 at 2300 2316 ($Given - Provider: Tyler Roberson RN) 2119 ($Given - Provider: Kelsey Peralta RN) iopamidol (ISOVUE-370) solution 120 mL (COMPLETED) 120 mL, Intravenous, ONCE, On Fri03/31/23 at 1720, For 1 dose 1716 ($Given - Provider: TAHIR Ortega) metroNIDAZOLE (FLAGYL) tablet 500 mg Routine, 500 mg, Oral, 2 TIMES DAILY, First dose on Fri04/01/23 at 0930, Changed to Metronidazole 500mg BID per Automatic Dose Adjustment Policy., Indications: Possible post-op infection 1029 ($Given - Provider: Kaylie Noonan RN)1929 ($Given - Provider: Kelsey Peralta RN) 0818 ($Given - Provider: Martir Armas RN) montelukast (SINGULAIR) tablet 10 mg 10 mg, Oral, AT BEDTIME, First dose on Fri03/31/23 at 2300 2302 ($Given - Provider: Tyler Roberson RN) 2118 ($Given - Provider: Kelsey Peralta RN) nortriptyline (PAMELOR) capsule 25 mg 25 mg, Oral, AT BEDTIME, First dose on Fri03/31/23 at 2300 2302 ($Given - Provider: Tyler Rboerson RN) 2118 ($Given - Provider: Kelsey Peralta RN) pantoprazole (PROTONIX) EC tablet 40 mg 40 mg, Oral, 2 TIMES DAILY BEFORE MEALS, First dose on Fri04/01/23 at 0930, This therapy was substituted for esomeprazole (NEXIUM) 20 mg every morning before breakfast. 09 ($Given - Provider: Kaylie Noonan RN)1622 ($Given - Provider: Kelsey Peralta RN) 0614 ($Given - Provider: Leesa Vernon, RN) pantoprazole (PROTONIX) IV push injection 40 mg (COMPLETED) 40 mg, Intravenous, ONCE, On Fri03/31/23 at 2009, For 1 dose, Irritant. 2032 ($Given - Provider: Natasha Frazier RN) predniSONE (DELTASONE) tablet 10 mg (COMPLETED) 10 mg, Oral, DAILY, First dose on Fri04/01/23 at 0930, For 1 dose 1029 ($Given - Provider: Kaylie Noonan RN) predniSONE (DELTASONE) tablet 5 mg 5 mg, Oral, DAILY, First dose on Fri04/02/23 at 0800, For 7 days 0818 ($Given - Provider: Martir Armas RN) Saline CT scan flush (COMPLETED) Intravenous, 100 mL, ONCE, On Fri03/31/23 at 1720, For 1 dose 1717 ($Given - Provider: EPIFANIO OrtegaT) sodium chloride (PF) 0.9% PF flush 3 mL 3 mL, Intracatheter, EVERY 8 HOURS, First dose on Fri03/31/23 at 2300, And Q1H PRN, to lock peripheral IV dormant line. 2308 ($Given - Provider: Tyler Roberson RN) 0642 (Not Given - Provider: Tyler Roberson RN - Reason: IV Infusing)1414 (Not Given - Provider: Kaylie Noonan RN - Reason: IV Infusing)2233 (Not Given - Provider: Kelsey Peralta RN - Reason: No IV Access - Comment: IV pulled out after shower. Pt didn't want a new one.) 0629 (Not Given - Provider: Leesa Vernon, IFRAH - Reason: Loss of IV access)1500 (Canceled Entry - Provider: Orders Generic Provider - Comment: Automatically canceled at discontinue of medication order) traZODone (DESYREL) tablet 200 mg 200 mg, Oral, AT BEDTIME, First dose on Fri03/31/23 at 2300 2302 ($Given - Provider: Tyler Roberson, RN) 2119 ($Given - Provider: Kelsey Peralta RN) Continuous Medication Order 03/31/2023 04/01/2023 04/02/2023 lactated ringers infusion () at 100 mL/hr, Intravenous, CONTINUOUS, Starting on Fri03/31/23 at 2300, Until Fri04/01/23 at 0859 2307 ($New Bag - Provider: Tyler Roberson RN) lactated ringers infusion (CANCELED) at 100 mL/hr, Intravenous, CONTINUOUS, Saline lock when tolerating PO, Starting on Fri04/01/23 at 1030, Until Fri04/01/23 at 1033 1029 ($New Bag - Provider: Kaylie Noonan RN) lactated ringers infusion () at 100 mL/hr, Intravenous, CONTINUOUS, Saline lock when tolerating PO, Starting on Fri04/01/23 at 1100, Until Fri04/01/23 at 1559 1037 ($New Bag - Provider: Kaylie Noonan RN) PRN Medication Order 03/31/2023 04/01/2023 04/02/2023 HYDROmorphone (DILAUDID) half-tab 1 mg 1 mg, Oral, EVERY 4 HOURS PRN, moderate pain, IF pain not managed with non-pharmacological and non-opioid interventions, Starting on Fri03/31/23 at 2247, May use concomitant with non-opioid analgesics. 1034 ($Given - Provider: Kaylie Noonan RN) 0839 ($Given - Provider: Martir Armas RN) HYDROmorphone (DILAUDID) injection 0.2 mg 0.2 mg, Intravenous, EVERY 2 HOURS PRN, moderate pain, IF patient cannot take oral opioid OR IF pain not managed with non-pharmacological, non-opioid, or oral opioid interventions if ordered, Starting on Fri03/31/23 at 2247, May use concomitant with non-opioid analgesics. 2316 ($Given - Provider: Tyler Roberson RN) HYDROmorphone (PF) (DILAUDID) injection 0.5 mg (CANCELED) 0.5 mg, Intravenous, EVERY 20 MIN PRN, severe pain, Starting on Fri03/31/23 at 2005, For 2 doses 2032 ($Given - Provider: Natasha Frazier RN) lidocaine (LMX4) cream Topical, EVERY 1 HOUR PRN, pain, with VAD insertion or accessing implanted port., Starting on Fri03/31/23 at 2247, Do NOT give if patient has a history of allergy to any local anesthetic or any carlos product. Apply at least 30 minutes prior to VAD insertion or port access. In divided doses as needed for size of site for VAD insertion with MAX Dose: 2.5 g (?? of 5 g tube). lidocaine 1 % 0.1-1 mL 0.1-1 mL, Other, EVERY 1 HOUR PRN, mild pain with VAD insertion., Starting on Fri03/31/23 at 2247, Do NOT give if patient has a history of allergy to any local anesthetic or any carlos product. MAX dose 1 mL subcutaneous OR intradermal in divided doses as needed for VAD insertion. melatonin tablet 1 mg 1 mg, Oral, AT BEDTIME PRN, sleep, Starting on Fri03/31/23 at 2247, Do not give unless at least 6 hours of uninterrupted sleep is expected. methocarbamol (ROBAXIN) tablet 500 mg 500 mg, Oral, 4 TIMES DAILY PRN, muscle spasms, Starting on Fri03/31/23 at 2247 naloxone (NARCAN) injection 0.2 mg(Linked Group 1) 0.2 mg, Intravenous, EVERY 2 MIN PRN, opioid reversal, Starting on Fri03/31/23 at 2250, Administer intravenous route when available and notify [...] doses. naloxone (NARCAN) injection 0.2 mg(Linked Group 1) 0.2 mg, Intramuscular, EVERY 2 MIN PRN, opioid reversal, Starting on Fri03/31/23 at 2250, Administer intramuscular if an intravenous route is [...] doses. naloxone (NARCAN) injection 0.4 mg(Linked Group 1) 0.4 mg, Intravenous, EVERY 2 MIN PRN, opioid reversal, Starting on Fri03/31/23 at 2250, Administer intravenous route when available and notify [...] doses. naloxone (NARCAN) injection 0.4 mg(Linked Group 1) 0.4 mg, Intramuscular, EVERY 2 MIN PRN, opioid reversal, Starting on Fri03/31/23 at 2250, Administer intramuscular if an intravenous route is [...] not improved after 4 naloxone doses. ondansetron (ZOFRAN ODT) ODT tab 4 mg(Linked Group 2) 4 mg, Oral, EVERY 6 HOURS PRN, nausea, vomiting, Starting on Fri03/31/23 at 2247, This is Step 1 of nausea and vomiting management. If nausea not resolved in 15 minutes, go to Step 2 prochlorperazine (COMPAZINE). With dry hands, peel back foil backing and gently remove tablet. Do not push oral disintegrating tablet through foil backing. Administer immediately on tongue and oral disintegrating tablet dissolves in seconds, then swallow with saliva. Liquid not required. 2316 ($Given - Provider: Tyler Roberson RN) ondansetron (ZOFRAN) injection 4 mg(Linked Group 2) 4 mg, Intravenous, EVERY 6 HOURS PRN, nausea, vomiting, Administer over 2-5 Minutes, Starting on Fri03/31/23 at 2247, Give IF patient unable to tolerate oral medication. This is Step 1 of nausea and vomiting management. If nausea not resolved in 15 minutes, go to Step 2 prochlorperazine (COMPAZINE). Irritant. 2316 (See Alternative - Provider: Tyler Roberson RN) sodium chloride (PF) 0.9% PF flush 3 mL 3 mL, Intracatheter, EVERY 1 MIN PRN, line flush, Starting on Fri03/31/23 at 2247, for peripheral IV flush post IV meds Linked Groups Order Group 1: naloxone (NARCAN) injection 0.2 mgJump to med 0.2 mg, Intravenous, EVERY 2 MIN PRN, opioid reversal, Starting on Fri03/31/23 at 2250, Administer intravenous route when available and notify [...] 2 MIN PRN, opioid reversal, Starting on Fri03/31/23 at 2250, Administer intravenous route when available and notify [...] 2 MIN PRN, opioid reversal, Starting on Fri03/31/23 at 2250, Administer intramuscular if an intravenous route is [...] 2 MIN PRN, opioid reversal, Starting on Fri03/31/23 at 2250, Administer intramuscular if an intravenous route is [...] have not improved after 4 naloxone doses. Group 2: ondansetron (ZOFRAN ODT) ODT tab 4 mgJump to med 4 mg, Oral, EVERY 6 HOURS PRN, nausea, vomiting, Starting on Fri03/31/23 at 2247, This is Step 1 of nausea and vomiting management. If nausea not resolved in 15 minutes, go to Step 2 prochlorperazine (COMPAZINE). With dry hands, peel back foil backing and gently remove tablet. Do not push oral disintegrating tablet through foil backing. Administer immediately on tongue and oral disintegrating tablet dissolves in seconds, then swallow with saliva. Liquid not required. Or ondansetron (ZOFRAN) injection 4 mgJump to med 4 mg, Intravenous, EVERY 6 HOURS PRN, nausea, vomiting, Administer over 2-5 Minutes, Starting on 03/31/23 at 2247, Give IF patient unable to tolerate oral medication. This is Step 1 of nausea and vomiting management. If nausea not resolved in 15 minutes, go to Step 2 prochlorperazine (COMPAZINE). Irritant. documented in this encounter Additional Health Concerns Infection Onset Date Last Indicated Resolved Time Rule Out C-difficile 03/31/2023 04/01/2023 023 11:56 AM CDT documented as of this encounter Care Teams Quality Technician Relationship Specialty Start Date End Date No Ref-Primary, Physician PCP - General 02/10/23 05/14/23 documented as of this encounter
--- OUTSIDE RECORDS SUMMARY | 2023-09-17 14:36 | XMS_ITS | Encounter Summary ---
Author Name Unknown Organization [facility] Address [address] [place] [address] Care Team Providers Care City Distribution Clerk Name Role Phone No Ref-Primary, Physician Primary Care Provider Encounter Details Date Type Department Care Team (Latest Contact Info) Description 03/31/2023 Travel Social History Tobacco Use Types Packs/Day [...] st Contact Info) Description 10/01/2023 12:45 PM MEDICAL COMMUNICATION SPECIALIST Appointment [facility] [id number] [facility] [address] [place] [address] Alisa Norman PA-C [facility] [address] [place] [address] [place]HI [id number] documented as of this encounter Visit Diagnoses Not on filedocumented in this encounter Additional Health Concerns Infection Onset Date Last Indicated Resolved Time Rule Out C-difficile 03/31/2023 04/01/2023 023 11:56 AM CDT documented as of this encounter Care Teams City Distribution Clerk Relationship Specialty Start Date End Date No Ref-Primary, Physician PCP - General 6/5/23 9/6/23 documented as of this encounter
--- OUTSIDE RECORDS SUMMARY | 2023-09-17 14:36 | XMS_ITS | Encounter Summary ---
Author Name Unknown Organization [place] Address [address] [place] [id number] Care Team Providers Care Exhibition Specialist Name Role Phone Andrew Israel PA-C Primary Care Provider [phone] Reason for Visit * Reason Comments Allergic Reaction Encounter Details Date Type Department Care Team (Late st Contact Info) Description 05/15/2023 12:05 PM CDT - 05/15/2023 2:[address] [facility] Emergency Dept [address] [place] [address] Thomas Sosa MD [facility] [address] [place] [address] [id number] Isreal Abarca MD [address] [place] [id number] Allergic reaction, initial encounter Discharge Disposition: Home or Self Care Social History Tobacco Use Types Packs/Day Years Used Date Smoking Tobacco: Never Assessed Sex and Gender Information Value Date Recorded Sex Assigned at Not on file Gender Identity Not on file Sexual Orientation Not on file documented as of this encounter Last Filed Vital Signs Vital Sign Reading Time Taken Comments Blood Pressure 123/70 05/15/2023 2:25 PM CDT Pulse 98 05/15/2023 2:30 PM CDT Temperature 36.4 ??C (97.6 ??F) 05/15/2023 12:09 PM C DT Respiratory Rate 16 05/15/2023 2:45 PM CDT Oxygen Saturation 98% 05/15/2023 2:45 PM CDT Inhaled Oxygen Concentration - - Weight - - Height - - Body Mass Index - - documented in this encounter Discharge Instructions * Discharge Instructions* Isreal Abarca MD - 05/15/2023 2:38 PM CDT Return to the ER for difficulty breathing, recurrent rash, or any new concerns. * Attachments The following attachments cannot be sent through Care Everywhere. * Allergic Reaction (Lib[place]) documented in this encounter Medications at Time of Discharge Medication Sig Dispensed Refills Start Date End Date diphenhydrAMINE (BENADRYL) 25 MG capsule Take 1 capsule (25 mg) by mouth every 6 hours as needed for itching or allergies 30 capsule 0 05/15/2023 acetaminophen (TYLENOL) 500 MG tabletIndications:R LQ abdominal pain Take 1-2 tablets (500-1,000 mg) [...] or cough 0 bisacodyl (DULCOLAX) 10 MG suppositoryIndicati ons:RLQ abdominal pain,Partial small bowel obstruction (H) Place [...] At Bedtime 0 methocarbamol (ROBAXIN) 500 MG tabletIndications:R LQ abdominal pain,Partial small bowel obstruction (H),IBD (inflammatory [...] tablets (40 mg) by mouth daily for 2 days Take two tablets daily for 4 more days. 4 tablet 0 05/16/2023 05/18/2023 HYDROmorphone (DILAUDID) 2 MG tabletIndications:R LQ abdominal pain Take 0.5 tablets (1 mg) by mouth every 4 hours as needed for severe pain 9 tablet 0 04/02/2023 06/16/2023 polyethylene glycol (MIRALAX) 17 GM/Dose powderIndications:R LQ abdominal pain,Partial small bowel obstruction (H) Take 17 g by mouth daily 510 g 3 02/23/2023 06/16/2023 sennosides (SENOKOT) 8.6 MG tabletIndications:R LQ abdominal pain,Partial small bowel obstruction (H) Take 1-2 tablets by mouth 2 times daily as needed for constipation 90 tablet 1 02/23/2023 06/16/2023 documented as of this encounter ED Notes * Luna Paz RN - 05/15/2023 12:11 PM CDT Patient arrives via EMS from clinic were she was getting an iron infusion. She reports she had someitching, rash, and throat swelling. ABCs intact, A&Ox4. 50mg benadryl and 50 solumedrol given at clinic prior to arrival. Triage Assessment Row Name 05/15/23 1211 Triage Assessment (Adult) Airway WDL WDL Respiratory WDL Respiratory WDL WDL Skin Circulation/Temperature WDL Skin Circulation/Temperature WDL WDL Cardiac WDL Cardiac WDL WDL Peripheral/Neurovascular WDL Peripheral Neurovascular WDL WDL Cognitive/Neuro/Behavioral WDL Cognitive/Neuro/Behavioral WDL WDL [place] Coma Scale Best Eye Response 4-->(E4) spontaneous Best Motor Response 6-->(M6) obeys commands Best Verbal Response 5-->(V5) oriented [place] Coma Scale Score 15 * Emy Jung RN - 05/15/2023 12:05 PM CDT Bed: ED11 Expected date: Expected time: Means of arrival: Comments: [facility] allergic rxn- TRIAGE * Isreal Abarca MD - 05/15/2023 12:05 PM CDT History Chief Complaint: Allergic Reaction HPI Hortensia Buitrago is a 63 year old female with history of Crohn's disease who follows through [facility]. She had an ileocolic resection on March 21 due to medically refractory Crohn's colitis. She has been on Remicade. She has previously been on steroid tapers. She has had multiple hospitalizationsfor Crohn's disease with complications including anemia. Today she was at the outpatient infusion center getting an iron infusion. She was noted to have a pruritic rash and sensation of swelling of the throat. She was given 2 doses of diphenhydramine, 25 mg each IV. She is also given 50 mg of Solu-Medrol along with IV fluids. She feels that her rash has resolved but she continues to have a scratchy and swollen sensation in the throat. She is not drooling or stridorous. Independent Historian: History taken from EMS who provides information about the patient's treatment at the infusion center. Review of External Notes: Discharge summary reviewed from April 02, 2023 and the patient was admitted for complications related to her Crohn's disease. Medications: diphenhydrAMINE (BENADRYL) 25 MG capsule [START ON 05/16/2023] predniSONE (DELTASONE) 20 MG tablet acetaminophen (TYLENOL) 500 MG tablet acetaminophen (TYLENOL) 650 MG CR tablet albuterol (PROAIR HFA/PROVENTIL HFA/VENTOLIN HFA) 108 (90 Base) MCG/ACT inhaler bisacodyl (DULCOLAX) 10 MG suppository cyanocobalamin (CYANOCOBALAMIN) 1000 MCG/ML injection esomeprazole (NEXIUM) [address] capsule famotidine (PEPCID) 40 MG tablet HYDROmorphone (DILAUDID) 2 MG tablet methocarbamol (ROBAXIN) 500 MG tablet montelukast (SINGULAIR) 10 MG tablet nortriptyline (PAMELOR) 25 MG capsule ondansetron (ZOFRAN ODT) 4 MG ODT tab polyethylene glycol (MIRALAX) 17 GM/Dose powder sennosides (SENOKOT) 8.6 MG tablet traZODone (DESYREL) 100 MG tablet Past Medical History: No past medical history on file. Past Surgical History: Past Surgical History: Procedure Laterality Date LAPAROSCOPIC RESECTION ILEOCECAL N/A 03/21/2023 Procedure: Laparoscopic assisted ileocolic resection; Surgeon: Madison Iverson MD; Location: OR Physical Exam Patient Vitals for the past 24 hrs: BP Temp Temp src Pulse Resp SpO2 05/15/23 1425 123/70 -- -- -- -- 99 % 05/15/23 1420 -- -- -- -- -- 99 % 05/15/23 1415 -- -- -- 101 -- 98 % 05/15/23 1410 115/70 -- -- -- -- 96 % 05/15/23 1405 -- -- -- -- -- 98 % 05/15/23 1400 -- -- -- 105 -- 97 % 05/15/23 1355 128/69 -- -- -- -- 98 % 05/15/23 1350 -- -- -- -- -- 100 % 05/15/23 1345 -- -- -- 102 -- 98 % 05/15/23 1340 132/62 -- -- -- 16 96 % 05/15/23 1325 (!) 140/72 -- -- -- 16 100 % 05/15/23 1315 -- -- -- 103 -- 100 % 05/15/23 1310 127/70 -- -- -- 16 98 % 05/15/23 1305 -- -- -- -- -- 100 % 05/15/23 1300 -- -- -- 96 -- 98 % 05/15/23 1255 129/73 -- -- -- -- 99 % 05/15/23 1250 -- -- -- -- -- 99 % 05/15/23 1245 (!) 150/78 -- -- 93 -- 99 % 05/15/23 1225 -- -- -- -- 16 100 % 05/15/23 1220 -- -- -- -- -- 98 % 05/15/23 1215 -- -- -- -- -- 95 % 05/15/23 1209 (!) 140/85 97.6 ??F (36.4 ??C) Oral 82 18 99 % Physical Exam Constitutional: General: She is not in acute distress. Appearance: Normal appearance. She is not diaphoretic. HENT: Head: Atraumatic. Right Ear: External ear normal. Left Ear: External ear normal. Nose: Nose normal. Mouth/Throat: Mouth: Mucous membranes are moist. Pharynx: Oropharynx is clear. No oropharyngeal exudate or posterior oropharyngeal erythema. Comments: No drooling or stridor. Airway widely patent. No elevation of the floor the mouth. Tongueappears normal. Uvula appears normal. Eyes: General: No scleral icterus. Conjunctiva/sclera: Conjunctivae normal. Cardiovascular: Rate and Rhythm: Normal rate. Heart sounds: Normal heart sounds. Pulmonary: Effort: No respiratory distress. Breath sounds: Normal breath sounds. Abdominal: General: Abdomen is flat. There is no distension. Tenderness: There is no abdominal tenderness. Musculoskeletal: Cervical back: Neck supple. Skin: General: Skin is warm. Capillary Refill: Capillary refill takes less than 2 seconds. Findings: No rash. Neurological: General: No focal deficit present. Mental Status: She is alert and oriented to person, place, and time. Psychiatric: Mood and Affect: Mood normal. Behavior: Behavior normal. Emergency Department Course Emergency Department Course & Assessments: Interventions: Medications lidocaine 1 % 0.1-1 mL (has no administration in time range) lidocaine (LMX4) cream (has no administration in time range) sodium chloride (PF) 0.9% PF flush 3 mL (has no administration in time range) sodium chloride (PF) 0.9% PF flush 3 mL (has no administration in time range) 0.9% sodium chloride BOLUS (0 mLs Intravenous Stopped 05/15/23 1436) famotidine (PEPCID) injection 20 mg (20 mg Intravenous $Given 05/15/23 1237) EPINEPHrine (ADRENALIN) kit 0.3-0.5 mg (0.5 mg Intramuscular $Given 05/15/23 1224) Disposition: The patient was discharged to home. Impression & Plan Medical Decision Making: This patient is a 63-year-old who presents to the ED with an allergic reaction following an iron infusion through [facility]. She received Solu-Medrol and Benadryl prehospital. The rash resolved but she still had an abnormal sensation in her throat. She received epinephrine and IV Pepcid. She hasbeen observed for another 2-1/2 hours. She feels improved. No difficulty breathing or swallowing. No recurrence of her rash or any rebound reaction. She is appropriate for discharge. She is already been working with her provider for different iron formulation. She will continue 2 more days of prednisone and continue outpatient antihistamines as well. We discussed return precautions. Diagnosis: ICD-10-CM 1. Allergic reaction, initial encounter T78.40XA Discharge Medications: New Prescriptions DIPHENHYDRAMINE (BENADRYL) 25 MG CAPSULE Take 1 capsule (25 mg) by mouth every 6 hours as needed for itching or allergies PREDNISONE (DELTASONE) 20 MG TABLET Take 2 tablets (40 mg) by mouth daily for 2 days Take two tablets daily for 4 more days. Isreal Abarca MD 05/15/2023 Isreal Abarca MD 05/15/23 144 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/2023 12:45 PM ENGINEERING ILLUSTRATOR Appointment [facility] [id number] [facility] [address] [place] [address] Alisa Norman PA-C [facility] [address] [place] [address] [place] [id number] documented as of this encounter Visit Diagnoses Diagnosis Allergic reaction, initial encounter documented in this encounter Administered Medications Inactive Administered Medications - up to 3 most recent administrations Medication Order MAR Action Action Date Dose Rate Site 0.9% sodium chloride BOLUS Intravenous, 1,000 mL, ONCE, On Betty 05/15/23 at 1215, For 1 dose, Wide Open $New Bag 05/15/2023 12:37 PM CDT 1,000 mLs EPINEPHrine (ADRENALIN) kit 0.3-0.5 mg 0.3-0.5 mg, Intramuscular, ONCE, On Betty 05/15/23 at 1215, For 1 dose, 0.3 mg for patient 30-50 kg 0.5 mg for patient greater than 50 kg For anaphylaxis Administer IM in mid outer thigh if possible due to faster absorption See kit labeling for dosing instructions. Not for direct undiluted intravenous injection (1mg/mL = 1:1000). Protect from light. $Given 05/15/2023 12:24 PM CDT 0.5 mg famotidine (PEPCID) injection 20 mg 20 mg, Intravenous, Administer over 2 Minutes, ONCE, On Betty 05/15/23 at 1215, For 1 dose, For ordered IV doses 1-20 mg, give IV Push diluted with 5-10 mL NS over a minimum of 2 minutes. $Given 05/15/2023 12:37 PM CDT 20 mg lidocaine (LMX4) cream Topical, EVERY 1 HOUR PRN, pain, with VAD insertion, Starting on Betty 05/15/23 at 1211, Apply at least 30 minutes prior to VAD insertion in divided doses as needed for size of site for insertion. MAX Dose: 2.5 g (?? of 5 g tube) Do NOT give if patient has a history of allergy to any local anesthetic or any carlos product. Do NOT use both lidocaine intradermal/subcutaneous injection and the lidocaine cream on the same site. lidocaine 1 % 0.1-1 mL 0.1-1 mL, Other, EVERY 1 HOUR PRN, mild pain with VAD insertion, Starting on Betty 05/15/23 at 1211, MAX dose 1 mL subcutaneous OR intradermal along the side of the vein in divided doses as needed for VAD insertion. Do NOT give if patient has a history of allergy to any local anesthetic or any carlos product. Do NOT use both lidocaine intradermal/subcutaneous injection and the lidocaine cream on the same site. sodium chloride (PF) 0.9% PF flush 3 mL 3 mL, Intracatheter, EVERY 8 HOURS, First dose on Betty 05/15/23 at 1215, to lock peripheral IV dormant line sodium chloride (PF) 0.9% PF flush 3 mL 3 mL, Intracatheter, EVERY 1 MIN PRN, line flush, other, to ensure patency or to lock dormant line, Starting on Betty 05/15/23 at 1211 documented in this encounter Active and Recently Administered Medications Times are shown in CDT. Scheduled Medication Order 05/13/2023 05/14/2023 05/15/2023 0.9% sodium chloride BOLUS (COMPLETED) Intravenous, 1,000 mL, ONCE, On Betty 05/15/23 at 1215, For 1 dose, Wide Open 1237 ($New Bag - Pro vider: Luna Paz RN)1436 (Stopped - Provider: Luna Paz RN) EPINEPHrine (ADRENALIN) kit 0.3-0.5 mg (COMPLETED) 0.3-0.5 mg, Intramuscular, ONCE, On Betty 05/15/23 at 1215, For 1 dose, 0.3 mg for patient 30-50 kg 0.5 mg for patient greater than 50 kg For anaphylaxis Administer IM in mid outer thigh if possible due to faster absorption See kit labeling for dosing instructions. Not for direct undiluted intravenous injection (1mg/mL = 1:1000). Protect from light. 1224 ($Given - Provi courtney: Luna Paz RN) famotidine (PEPCID) injection 20 mg (COMPLETED) 20 mg, Intravenous, Administer over 2 Minutes, ONCE, On Betty 05/15/23 at 1215, For 1 dose, For ordered IV doses 1-20 mg, give IV Push diluted with 5-10 mL NS over a minimum of 2 minutes. 1237 ($Given - Provi courtney: Luna Paz RN) sodium chloride (PF) 0.9% PF flush 3 mL 3 mL, Intracatheter, EVERY 8 HOURS, First dose on Betty 05/15/23 at 1215, to lock peripheral IV dormant line 1215 (Canceled Entry - Provider: Orders Generic Provider - Comment: Automatically canceled at discontinue of medication order) PRN Medication Order 05/13/2023 05/14/2023 05/15/2023 lidocaine (LMX4) cream Topical, EVERY 1 HOUR PRN, pain, with VAD insertion, Starting on Betty 05/15/23 at 1211, Apply at least 30 minutes prior to VAD insertion in divided doses as needed for size of site for insertion. MAX Dose: 2.5 g (?? of 5 g tube) Do NOT give if patient has a history of allergy to any local anesthetic or any carlos product. Do NOT use both lidocaine intradermal/subcutaneous injection and the lidocaine cream on the same site. lidocaine 1 % 0.1-1 mL 0.1-1 mL, Other, EVERY 1 HOUR PRN, mild pain with VAD insertion, Starting on Betty 05/15/23 at 1211, MAX dose 1 mL subcutaneous OR intradermal along the side of the vein in divided doses as needed for VAD insertion. Do NOT give if patient has a history of allergy to any local anesthetic or any carlos product. Do NOT use both lidocaine intradermal/subcutaneous injection and the lidocaine cream on the same site. sodium chloride (PF) 0.9% PF flush 3 mL 3 mL, Intracatheter, EVERY 1 MIN PRN, line flush, other, to ensure patency or to lock dormant line, Starting on Betty 05/15/23 at 1211 documented in this encounter Care Teams Exhibition Specialist Relationship Specialty Start Date End Date Andrew Israel PA-C [place] [id number] [place] [id number] PCP - General 05/15/23 documented as of this encounter
--- OUTSIDE RECORDS SUMMARY | 2023-09-17 14:37 | XMS_ITS | Encounter Summary ---
Author Name Unknown Organization [facility] Address [address] [place] [address]. [place] [address] Care Team Providers Care [employer] Name Role Phone No Ref-Primary, Physician Primary Care Provider Georges Car Bermudez DO Unavailable Reason for Visit * Auth/Cert (Routine) Specialty Diagnoses / Procedures Referred By Contjn t Referred To Contact EMERGENCY MEDICINE Diagnoses Intractable abdominal pain Crohn's disease of colon with complication (H) Intractable abdominal pain Emergency Dept [address] [place] [address] Referral ID Status Reason Start Date Expiration Date Visits Re quested Visits Authorized [id number] 1 1 Encounter Details Date Type Department Care Team (Late st Contact Info) Description 03/21/2023 3:18 PM CDT Anesthesia Event [facility] PeriOp Services [address] [place] [address] Eldon Story MD [facility] [id number] [place] [address] Len Lopez APRN [facility] [place] [address] [facility] [place] [address] Anesthesia Record Procedure Summary Procedure Name Responsible Anesthesiologist Anesthesia Start Time Anesthesia Stop Time Laparoscopic assisted ileocolic resection (Abdomen) Eldon Story MD 03/21/23 1518 03/21/23 1829 Events Date Time Event Comment 03/21/2023 1518 An Start 1518 MD Present 1519 An Start Data 1520 AN REASSESS I attest that I have identified and re-evaluated the patient immediately before the induction of anesthesia and I am satisfied that the anesthetic plan is suitable for the patient's condition and procedure. The first vital signs recorded are pre- induction. Jesus Alberto Juarez APRN [employer] 1527 Present 1527 An Induction 1529 MD Present 1530 An Intubation 1531 MD Present 1535 MD Present 1535 MD Present 1535 MD Present 1541 Anesthesia Ready for Procedu re 1543 Present 1543 MD Present 1630 MD Present 1707 MD Present 1740 MD Present 1753 Present 1807 MD Present 1822 AN Extubation All extubation criteria met prior to removal. 182 an stop data 1829 An Stop Electronically signed by Kaylie Stuart APRN [employer] W[employer] on March 21, 2023 6:29 PM Meds Name Total midazolam 1 mg/mL 2 mg fentaNYL 50 mcg/mL 100 mcg HYDROmorphone 1 mg/mL 1 mg ketorolac 30 mg/mL 15 mg lidocaine 2% 50 mg propofol 10 mg/mL 747.56 mg rocuronium 10 mg/mL 100 mg phenylephrine (GINO-SYNEPHRINE) injection 100 mcg dexamethasone (DECADRON) 4 mg/mL 8 mg ondansetron 2 mg/mL 4 mg glycopyrrolate 0.2 mg/mL 0.2 mg sugammadex (BRIDION) 200mg/2mL 200 mg clindamycin (CLEOCIN) 900 mg in 50 mL NS intermittent infusion 900 mg gentamicin (GARAMYCIN) 300 m g in sodium chloride 0.9 % 50 mL intermittent infusion 300 mg hydrocortisone 100mg 100 mg lactated ringers infusion 500 mL sodium chloride 0.9% infusion 1,000 mL * Agents Name NO HELIOX O2 N2O Air Exp Sevoflurane Exp Isoflurane Exp Desflurane Exp N2O Ins Sevoflurane Ins Isoflurane Ins Desflurane O2 Auxiliary * Blood No blood administrations on file. Lines, Drains, and Airways Type Details Placement Removal Incision/Surgical Site 03/21/23; 180; Abdomen; glue x3 incisions (1 mini lap, 2 port sites) 03/21/23 180 by Tiarra Ferro RN Peripheral IV 03/19/23; 1900; 20 G ; BD; Right; Antecubital fossa 03/19/23 1900 by Karuna Matta RN 03/23/23 1900 by Liberty Louis RN ETT Placement Date: 03/21/23; Placement Time: 1530 (created via procedure documentation); Mask Ventilation: 1; Induction Type: Intravenous; Ease of Intubation: Easy; Technique: Direct laryngoscopy; ETT Type: Single; Tube Size: 7 mm; DL Blade Size: MAC 3; Grade View: 1; Adjucts: Stylet; Placement Person: [employer] WATCHER; Attempts: 1; Depth: 21 cm 03/21/23 1530 by Jesus Alberto Juarez APRN [employer] W[employer] 03/21/23 1822 by Kaylie Francisco APRN CRNA Urethral Catheter 03/21/23; 1540; No; /GI/GROUP MARKETING VP Pelvic Procedure; 16 fr; POD 1 03/21/23 1540 by Tiarra Ferro RN 03/22/23 1230 by Subha Ball RN documented in this encounter Social History Tobacco [...] suspected to have Coronavirus/COVID-19? No / Unsure 03/19/2023 3:05 PM CDT documented as of this encounter OR Notes * Anesthesia Postprocedure Evaluation - Jana Gil MD - 03/21/2023 6:31 PM CDT Patient: Hortensia Buitrago Procedure: Procedure(s): Laparoscopic ileocolic resection Anesthesia Type: General Note: Disposition: Inpatient Postop Pain Control: Uneventful Sign Out: Well controlled pain PONV: No Neuro/Psych: Uneventful Sign Out: Acceptable/Baseline neuro status Airway/Respiratory: Uneventful Sign Out: Acceptable/Baseline resp. status CV/Hemodynamics: Uneventful Sign Out: Acceptable CV status; No obvious hypovolemia; No obvious fluid overload Other NRE: DID A NON-ROUTINE EVENT OCCUR? No Last vitals: Vitals Value Taken Time BP 123/78 03/21/23 1825 Temp Pulse 100 03/21/23 1829 Resp 23 03/21/23 1829 SpO2 99 % 03/21/23 1829 Vitals shown include unvalidated device data. Electronically Signed By: Jana Gil MD March 21, 2023 6:31 PM * Anesthesia Procedure Notes - Jesus Alberto Juarez APRN CRNA - 03/21/2023 3:56 PM CDTAssociated Order(s): Airway Airway Procedure Start/Stop Times: 03/21/2023 3:30 PM Staff - [employer] WATCHER: Jesus Alberto Juarez APRN CRNA Performed By: CRNAIndications and Patient Condition Indications for airway management: kirsten-procedural, airway protection and altered level of consciousness Induction type:intravenous Mask difficulty assessment: 1 - vent by mask Final Airway Details Final airway type: endotracheal airway Successful airway: ETT - single Endotracheal Airway Details ETT size (mm): 7.0 Cuffed: yes Successful intubation technique: direct laryngoscopy DL Blade Type: MAC 3 Grade View of Cords: 1 Adjucts: stylet Position: Right Measured from: gums/teeth Secured at (cm): 21 Bite block used: None Post intubation assessment Placement verified by: capnometry, equal breath sounds and chest rise Number of attempts at approach: 1 Secured with: plastic tape Ease of procedure: easy Dentition: Intact Medication(s) Administered Medication Administration Time: 03/21/2023 3:30 PM * Anesthesia Preprocedure Evaluation - Stan Lazcano MD - 03/21/2023 2:18 PM CDT Anesthesia Pre-Procedure Evaluation Patient: Hortensia Buitrago : 1960 Procedure : Procedure(s): Laparoscopic ileocolic resection, possible stoma No past medical history on file. No past surgical history on file. Allergies Allergen Reactions ??? Latex Hives ??? Oxycodone Anaphylaxis, Hives and Swelling Throat swelling, per pt ??? Penicillin G Anaphylaxis ??? Sumatriptan Palpitations ??? Aspirin Nausea and Vomiting ??? Demerol Hcl [Meperidine] Nausea and Vomiting N/V ??? Percocet [Oxycodone-Acetaminophen] Nausea and Vomiting N/V ??? Codeine Nausea and Vomiting ??? Mold Social History Tobacco Use ??? Smoking status: Not on file ??? Smokeless tobacco: Not on file Substance Use Topics ??? Alcohol use: Not on file Wt Readings from Last 1 Encounters: 03/20/23 70.2 kg (154 lb 12.8 oz) Anesthesia Evaluation Pt has had prior anesthetic. Type: General. History of anesthetic complications - PONV. nauseated with multiple medications. ROS/MED HX ENT/Pulmonary: - neg pulmonary ROS Neurologic: - neg neurologic ROS Cardiovascular: - neg cardiovascular ROS METS/Exercise Tolerance: Hematologic: - neg hematologic ROS Musculoskeletal: - neg musculoskeletal ROS GI/Hepatic: Comment: Crohn's disease with sx ileal narrowing (+) Inflammatory bowel disease, Renal/Genitourinary: (+) renal disease, Endo: - neg endo ROS Psychiatric/Substance Use: - neg psychiatric ROS Infectious Disease: - neg infectious disease ROS Malignancy: (+) Malignancy, History of Other.Other CA renal cell cancer with nephrectomy Remission status post Surgery. Other: - neg other ROS Physical Exam Airway Mallampati: I TM distance: > 3 FB Neck ROM: full Mouth opening: > 3 cm Respiratory Devices and Support Dental (+) Modest Abnormalities - crowns, retainers, 1 or 2 missing teeth Cardiovascular cardiovascular exam normal Rhythm and rate: regular and normal Pulmonary pulmonary exam normal Other findings: Lab Test 03/20/23 03/19/23 02/22/23 0806 1530 0649 WBC 7.4 9.8 13.5* HGB 11.5* 12.7 12.5 MCV 92 91 88 PLT 242 294 244 Lab Test 03/21/23 03/20/23 03/19/23 02/23/23 1338 0806 1530 0648 NA -- 140 138 137 POTASSIUM -- 4.2 4.7 4.0 4.0 CHLORIDE -- 105 101 101 CO2 -- 27 26 23 BUN -- 9.7 10.0 20.0 CR -- 1.04* 1.14* 1.11* ANIONGAP -- 8 11 13 DAJA -- 8.5* 9.4 8.9 GLC 107* 87 102* 118* OUTSIDE LABS: CBC: Lab Results Component Value Date WBC 7.4 03/20/2023 WBC 9.8 03/19/2023 HGB 11.5 (L) 03/20/2023 HGB 12.7 03/19/2023 HCT 37.3 03/20/2023 HCT 41.4 03/19/2023 PLT 242 03/20/2023 PLT 294 03/19/2023 BMP: Lab Results Component Value Date NA 140 03/20/2023 NA 138 03/19/2023 POTASSIUM 4.2 03/20/2023 POTASSIUM 4.7 03/19/2023 CHLORIDE 105 03/20/2023 CHLORIDE 101 03/19/2023 CO2 27 03/20/2023 CO2 26 03/19/2023 BUN 9.7 03/20/2023 BUN 10.0 03/19/2023 CR 1.04 (H) 03/20/2023 CR 1.14 (H) 03/19/2023 GLC 107 (H) 03/21/2023 GLC 87 03/20/2023 COAGS: No results found for: PTT, INR, FIBR POC: No results found for: BGM, HCG, HCGS HEPATIC: Lab Results Component Value Date ALBUMIN 4.3 03/19/2023 PROTTOTAL 6.5 03/19/2023 ALT 17 03/19/2023 AST 18 03/19/2023 ALKPHOS 66 03/19/2023 BILITOTAL 0.5 03/19/2023 OTHER: Lab Results Component Value Date LACT 1.0 03/19/2023 DAJA 8.5 (L) 03/20/2023 PHOS 2.8 02/23/2023 MAG 2.3 02/23/2023 Anesthesia Plan ASA Status: 3 NPO Status: NPO Appropriate Anesthesia Type: General. - Airway: ETT Induction: Intravenous. Maintenance: Balanced. Consents Anesthesia Plan(s) and associated risks, benefits, and realistic alternatives discussed. Questions answered and patient/veterans service representative(s) expressed understanding. - Discussed: Risks, Benefits and Alternatives for BOTH SEDATION and the PROCEDURE were discussed - Discussed with: Patient - Extended Intubation/Ventilatory Support Discussed: No. - Patient is DNR/DNI Status: No Use of blood products discussed: No . Postoperative Care Pain management: IV analgesics, Oral pain medications, Multi-modal analgesia. PONV prophylaxis: Ondansetron (or other 5HT-3), Dexamethasone or Solumedrol, Background Propofol Infusion, Scopolamine patch Comments: Stan Lazcano MD documented in this encounter Miscellaneous Notes * Anesthesia Care Transfer Note - Kaylie Stuart APRN CRNA - 03/21/2023 6:28 PM CDT Patient: Hortnesia Buitrago Procedure: Procedure(s): Laparoscopic ileocolic resection Diagnosis: Crohn's disease of colon with complication (H) [K50.119] Diagnosis Additional Information: No value filed. Anesthesia Type: General Note: Oropharynx: oropharynx clear of all foreign objects Level of Consciousness: drowsy Oxygen Supplementation: face mask Independent Airway: airway patency satisfactory and stable Dentition: dentition unchanged Vital Signs Stable: post-procedure vital signs reviewed and stable Report to RN Given: handoff report given Patient transferred to: PACU Handoff Report: Identifed the Patient, Identified the Reponsible Provider, Reviewed the pertinent medical history, Discussed the surgical course, Reviewed Intra-OP anesthesia mangement and issues during anesthesia, Set expectations for post-procedure period and Allowed opportunity for questions andacknowledgement of understanding Vitals: Vitals Value Taken Time BP 123/78 03/21/23 1825 Temp Pulse 88 03/21/23 1828 Resp 17 03/21/23 1828 SpO2 99 % 03/21/23 1828 Vitals shown include unvalidated device data. Electronically Signed By: Kaylie Stuart APRN CRNA March 21, 2023 6:28 PM 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/2023 12:45 PM HAND POLISHER Appointment [facility] [id number] [place] [address] Alisa Norman PA-C [facility] [address] [place] [address] [place] [address] documented as of this encounter Procedures Procedure Name Priority Date/Time Associated Diagnosis Comments ANE AIRWAY ETT PERFORMABLE Routine 03/21/2023 3:30 PM CDT documented in this encounter Results * ANE AIRWAY ETT PERFORMABLE (03/21/2023 3:30 PM CDT) Narrative Jesus Alberto Juarez APRN [employer]ATCH[employer] - 03/21/2023 3:30 PM CDT Jesus Alberto Juarez APRN CRNA ? 03/21/2023 ??3:56 PM Airway ? Procedure Start/Stop Times: 03/21/2023 3:30 PM Staff - ? [employer] WATCHER: Jesus Alberto Juarez APRN CRNA ? Performed By: CRNAIndications and Patient Condition ? Indications for airway management: kirsten-procedural, airway protection and altered level of consciousness ? Induction type:intravenous ? Mask difficulty assessment: 1 - vent by mask Final Airway Details ? Final airway type: endotracheal airway ? Successful airway: ETT - single Endotracheal Airway Details ? ETT size (mm): 7.0 ? Cuffed: yes ? Successful intubation technique: direct laryngoscopy ? DL Blade Type: MAC 3 ? Grade View of Cords: 1 ? Adjucts: stylet ? Position: Right ? Measured from: gums/teeth ? Secured at (cm): 21 ? Bite block used: None Post intubation assessment ? Placement verified by: capnometry, equal breath sounds and chest rise ? Number of attempts at approach: 1 ? Secured with: plastic tape ? Ease of procedure: easy ? Dentition: Intact Medication(s) Administered Medication Administration Time: 03/21/2023 3:30 PM Stan Lazcano MD [facility] [place] documented in this encounter Visit Diagnoses Not on filedocumented in this encounter Administered Medications Inactive Administered Medications - up to 3 most recent administrations Medication Order MAR Action Action Date Dose Rate Site clindamycin (CLEOCIN) 900 mg in 50 mL NS intermittent infusion Routine, 900 mg, Intravenous, PRE-OP/PRE-PROCEDURE, Starting on Fri03/21/23 at 1445, For 1 dose, Give first dose within 1 hour PRIOR to incision, Indications: Perioperative Pharmacoprophylaxis, Pre-procedure $Given 03/21/2023 3:24 PM CDT 900 mg dexamethasone (DECADRON) injection Intravenous, PRN, Administer over 1 Minutes, Starting on Fri03/21/23 at 1524, Anesthesia Intra-op $Given 03/21/2023 3:24 PM CDT 8 mg fentaNYL (PF) (SUBLIMAZE) injection Intravenous, PRN, Administer over 3-5 Minutes, Starting on Fri03/21/23 at 1524, Anesthesia Intra-op $Given 03/21/2023 3:24 PM CDT 100 mcg gentamicin (GARAMYCIN) 300 mg in sodium chloride 0.9 % 50 mL intermittent infusion Routine, 300 mg (rounded from 297.5 mg = 5 mg/kg ? 59.5 kg Adjusted weight), Intravenous, PRE-OP/PRE-PROCEDURE, Starting on Fri03/21/23 at 1445, For 1 dose, Give first dose within 1 hour PRIOR to incision., Indications: Perioperative Pharmacoprophylaxis, Pre-procedure $New Bag 03/21/2023 3:20 PM CDT 300 mg glycopyrrolate (ROBINUL) injection Intravenous, PRN, Administer over 1-2 Minutes, Starting on Fri03/21/23 at 1524, Anesthesia Intra-op $Given 03/21/2023 3:24 PM CDT 0.2 mg hydrocortisone sodium succinate PF (solu-CORTEF) injection Intravenous, PRN, Administer over 1-4 Minutes, Starting on Fri03/21/23 at 1632, Anesthesia Intra-op $Given 03/21/2023 4:32 PM CDT 100 mg HYDROmorphone (DILAUDID) injection Intravenous, PRN, Starting on Fri03/21/23 at 1524, Anesthesia Intra-op $Given 03/21/2023 3:24 PM CDT 1 mg ketorolac (TORADOL) injection Intravenous, PRN, Administer over 2 Minutes, Starting on Fri03/21/23 at 1524, Anesthesia Intra-op $Given 03/21/2023 3:24 PM CDT 15 mg lactated ringers infusion at 10 mL/hr, Intravenous, CONTINUOUS, IF patient NOT on dialysis., Pre-procedure, Starting on Fri03/21/23 at 1500, Until Fri03/21/23 at 1824 $New Bag 03/21/2023 4:39 PM CDT lidocaine 2% injection (MDV) Intravenous, PRN, Starting on Fri03/21/23 at 1524, Anesthesia Intra-op $Given 03/21/2023 3:24 PM CDT 50 mg midazolam (VERSED) injection Intravenous, Administer over 2 Minutes, PRN, Starting on Fri03/21/23 at 1518, Anesthesia Intra-op $Given 03/21/2023 3:18 PM CDT 2 mg ondansetron (ZOFRAN) injection Intravenous, PRN, Administer over 2-5 Minutes, Starting on Fri03/21/23 at 1524, Anesthesia Intra-op $Given 03/21/2023 3:24 PM CDT 4 mg phenylephrine (GINO-SYNEPHRINE) injection Intravenous, CONTINUOUS PRN, Starting on Fri03/21/23 at 1552, Anesthesia Intra-op $New Bag 03/21/2023 3:52 PM CDT 100 mcg propofol (DIPRIVAN) injection 10 mg/mL vial Intravenous, PRN, Starting on Fri03/21/23 at 1524, Anesthesia Intra-op $New Bag 03/21/2023 4:18 PM CDT 75 mcg/kg/min 31.59 mL/hr $Given 03/21/2023 3:24 PM CDT 200 mg rocuronium injection Intravenous, PRN, Starting on Fri03/21/23 at 1524, Anesthesia Intra-op $Given 03/21/2023 4:55 PM CDT 10 mg $Given 03/21/2023 4:36 PM CDT 20 mg $Given 03/21/2023 4:01 PM CDT 20 mg sodium chloride 0.9% infusion at 75 mL/hr, Intravenous, CONTINUOUS, Starting on Betty 03/20/23 at 0005, Until 03/22/23 at 1308 Restarted 03/21/2023 3:18 PM CDT Rate/Dose Change 03/21/2023 10:12 AM CDT 75 mL/ hr $New Bag 03/20/2023 11:58 PM CDT 100 mL/hr sugammadex (BRIDION) injection Intravenous, PRN, Starting on Fri03/21/23 at 1807, Anesthesia Intra-op $Given 03/21/2023 6:07 PM CDT 200 mg documented in this encounter Care Teams [employer] Relationship Specialty Start Date End Date No Ref-Primary, Physician PCP - General 02/10/23 05/14/23 Car Su DO [address] [place] [address] Assigned Pain Medication Provider 02/22/23 03/21/23 documented as of this encounter
--- OUTSIDE RECORDS SUMMARY | 2023-09-17 14:37 | XMS_ITS | Encounter Summary ---
Author Name Unknown Organization [facility] Address [address] [place] [id number] Care Team Providers Care Process Eng Name Role Phone No Ref-Primary, Physician Primary Care Provider Georges Car Bermudez DO Unavailable [phone] Reason for Visit * Reason Comments Abdominal Pain * Auth/Cert (Routine) Specialty Diagnoses / Procedures Referred By Esa t Referred To Contact EMERGENCY MEDICINE Diagnoses Intractable abdominal pain Crohn's disease of colon with complication (H) Intractable abdominal pain Emergency Dept [address] [place] [address] Referral ID Status Reason Start Date Expiration Date Visits Re quested Visits Authorized [id number] 1 1 Encounter Details Date Type Department Care Team (Late st Contact Info) Description 03/21/2023 3:15 PM CDT - 03/21/2023 7:50 PM CDT Surgery [facility] PeriOp Services [address] [place] [id number] Madison Iverson MD COLON RECTAL SURGERY [address] [id number] Laparoscopic assisted ileocolic resection Surgery Details Date/Time Status Location OR Service Patient Class Case Class Case Type Trauma Case? 03/21/23 3:15 PM Posted RH OR OR 03 [place] Inpatient Panel 1 Procedure [facility] Anes Op Region Wound Class Comments Laparoscopic assisted ileoco lic resection N/A General Abdomen II-Clean Contaminated Surgeon Surgeon Role Service Panel Roberta Ramirez PA-C Assisting Terminal Gauger Authori radha 1 Madison Iverson MD Primary [place] 1 Special Needs Multiple allergies documented in this encounter Social History Tobacco [...] Sign Reading Time Taken Comments Blood Pressure 119/102 03/21/2023 7:40 PM CDT Pulse 92 03/21/2023 7:40 PM CDT Temperature 36.2 ??C (97.2 ??F) 03/21/2023 7:25 PM CD T Respiratory Rate 11 03/21/2023 7:40 PM CDT Oxygen Saturation 100% 03/21/2023 7:40 PM CDT Inhaled Oxygen Concentration - - Weight 70.2 kg (154 lb 12.8 oz) 03/20/2023 9:26 AM CDT Height 160 cm (5' 3) 03/20/2023 9:26 AM CDT Body Mass Index 27.65 03/20/2023 9:26 AM CDT documented in this encounter Discharge Summaries * Mayela Fung RN - 03/26/2023 12:24 PM CDT Discharge Note Patient discharged to home via private vehicle accompanied by friend. IV: Discontinued Prescriptions printed and given to patient/family. Belongings reviewed and sent with patient and family. Home medications returned to patient: NA Equipment sent with: N/A. patient verbalizes understanding of discharge instructions. AVS given to patient. Additional education completed? Anticoagulation Therapy and Low fiber diet * Homar Colón MD - 03/26/2023 10:04 AM CDT [facility] Hospitalist Discharge Summary Date of Admission: 03/19/2023 Date of Discharge: 03/26/2023 Discharging Provider: Homar Colón MD Discharge Service: Hospitalist Service Discharge Diagnoses ABLA Acute on chronic Crohn's ileitis Lactic acidosis CKD stage III History of RCC status post nephrectomy Clinically Significant Risk Factors # Overweight: Estimated body mass index is 27.65 kg/m?? as calculated from the following: Height as of this encounter: 1.6 m (5' 3). Weight as of this encounter: 70.8 kg (156 lb 1.6 oz). Follow-ups Needed After Discharge Follow-up Appointments Follow-up and recommended labs and tests Follow up with primary care provider, Physician No Ref-Primary, within 7 days for hospital follow- up. No follow up labs or test are needed. Follow up with Dr. Madison Iverson ,Colon & Rectal Surgery [id number] [place] [address], [address] [place] [address] within 2 - 4 weeks or hospital follow- up and to follow up on results. No follow up labs or test are needed. Unresulted Labs Ordered in the Past 30 Days of this Admission Date and Time Order Name Status Description 03/21/2023 6:04 PM Surgical Pathology Exam In process These results will be followed up by CRS Discharge Disposition Discharged to home Condition at discharge: Stable Hospital Course 63F with hx of RCC s/p nephrectomy w/ CKD Stage III and Crohn's disease on Remicade with recent hospitalization discharged on steroid taper re-presents with ongoing abdominal pain and diarrhea and found to have ongoing evidence of ileitis on CT scan with luminal narrowing. CRS and GI were consultedand patient underwent ileocolic resection on 03/21/23. ?? PLAN ?? Acute blood loss anemia - Colorectal surgery following. [place] to be secondary to an anastomotic bleed. Blood is decreasing and dark, so possible that bleeding has stopped. - Hemodynamically stable. - CRS transfuse 1 unit(s) PRBCs on 03/23 due to symptomatic anemia.??Only one episode of dark blood today. -Hg 8.6 g - Continue to trend Hgb.??Transfuse if Hgb < 7 or per CRS. - SubQ Lovenox on hold -Plan to monitor CBC if hemoglobin stable in the a.m. she can be discharged ?? Crohn's Ileitis, Acute on Chronic -Presents with ongoing abdominal pain 2/2 ileitis that continues after recent admission under similar circumstances where she received IV steroids -Abdominal pain and diarrhea continued despite steroid taper and Remicade on outpatient basis - On admission, ongoing evidence of ileitis on CT scan with luminal narrowing - CRS and GI were consulted and patient underwent ileocolic resection on 03/21/23. - Planning to complete steroid taper. If bleeding below resolves and tolerating diet, can consider transition to oral regimen in coming days. - Diet advanced per CRS.??Does still have IVF running at 75 ml/hour. If tolerating diet well enoughtomorrow, would consider stopping. - Continue to encourage mobility and ambulation. - GI has signed off. Cancel upcoming dose of Remicade. Keep follow up appointment at [facility] [place], colonoscopy in 5-6 months. - Avoid NSAIDS. ?? Lactic Acidosis - Present on admission. Suspect 2/2 hypovolemia. Resolved. ?? RCC s/p nephrectomy w/ CKD Stage III - Cr at baseline - Avoid nephrotoxins ?? Consultations This Hospital Stay GASTROENTEROLOGY IP CONSULT COLORECTAL SURGERY IP CONSULT WOUND OSTOMY CONTINENCE NURSE IP CONSULT PHYSICAL THERAPY ADULT IP CONSULT CARE MANAGEMENT / SOCIAL WORK IP CONSULT Code Status Full Code Time Spent on this Encounter I, Homar Colón MD, personally saw the patient today and spent greater than 30 minutes discharging this patient. Homar Colón MD [place] [address] MEDICAL SURGICAL [address] [facility] [id number] Physical Exam Vital Signs: Temp: 97.7 ??F (36.5 ??C) Temp src: Oral BP: 134/68 Pulse: 81 Resp: 16 SpO2: 96 % O2 Device: None (Room air) Weight: 156 lbs 1.6 oz Constitutional:??Pleasant woman seen sitting up in bed in the afternoon. Family at bedside. Alert and oriented x3. Continues to appear slightly uncomfortable, but otherwise no acute distress. HEENT:??NCAT. EOMI. Moist oral mucosa. Respiratory:??Clear to auscultation bilaterally on anterior exam. No crackles or wheezes. Cardiovascular:??Regular rate and rhythm. GI:??Patient defers abdominal exam at this time secondary to pain. Note that colorectal surgery is following post-operatively after bowel resection. ?? Musculoskeletal:??No gross deformities. Neurologic:??Alert and oriented x3. No focal neurologic deficits. Did not assess gait. Primary Care Physician Physician No Ref-Primary Discharge Orders Reason for your hospital stay Acute on Chronic Crohn's Ileitis s/p underwent ileocolic resection on 03/21/23 Follow-up and recommended labs and tests Follow up with primary care provider, Physician No Ref-Primary, within 7 days for hospital follow- up. No follow up labs or test are needed. Follow up with Dr. Madison Iverson ,Colon & Rectal Surgery [id number] [place] [address], [address] [place] [address] within 2 - 4 weeks or hospital follow- up and to follow up on results. No follow up labs or test are needed. Activity Your activity upon discharge: activity as tolerated Diet Follow this diet upon discharge: Orders Placed This Encounter Snacks/Supplements Adult: Ensure Enlive; Between Meals Low Fiber Diet Significant Results and Procedures Results for orders placed or performed during the hospital encounter of 03/19/23 CT Abdomen Pelvis w Contrast Narrative EXAM: CT ABDOMEN PELVIS W CONTRAST LOCATION: [facility] DATE: 03/19/2023 INDICATION: Abdominal pain. Crohn's disease. COMPARISON: 02/20/2023 TECHNIQUE: CT scan of the abdomen and pelvis was performed following injection of IV contrast. Multiplanar reformats were obtained. Dose reduction techniques were used. CONTRAST: 71mL Isovue 370 FINDINGS: LOWER CHEST: Unremarkable. HEPATOBILIARY: Liver appears normal. Status post cholecystectomy. No biliary dilatation. PANCREAS: Normal. SPLEEN: Unchanged 0.6 cm low-attenuation lesion in the spleen, too small to characterize. ADRENAL GLANDS: Normal. KIDNEYS/BLADDER: Status post right nephrectomy. Left kidney appears normal. No hydronephrosis. Urinary bladder appears normal. BOWEL: No significant change in 3 segments of terminal ileum demonstrating wall thickening and mucosal hyperenhancement with associated luminal narrowing. The mid to distal sigmoid colon is decompressed, which obscures the previously described segments of luminal narrowing. No definite inflammatory change involving the colon. No bowel obstruction. Noabscess. Appendix not visualized, although no secondary signs of acute appendicitis. LYMPH NODES: No lymphadenopathy. VASCULATURE: Moderate atherosclerotic calcifications. PELVIC ORGANS: Status post hysterectomy. MUSCULOSKELETAL: Multilevel degenerative changes of the spine. Impression IMPRESSION: 1. No significant change in 3 segments of terminal ileum demonstrating acute on chronic ileitis with luminal narrowing. No bowel obstruction. No abscess. Discharge Medications Current Discharge Medication List START taking these medications Details enoxaparin ANTICOAGULANT (LOVENOX) 40 MG/0.4ML syringe Inject 0.4 mLs (40 mg) Subcutaneous every 24hours for 28 days Qty: 11.2 mL, Refills: 0 Associated Diagnoses: Crohn's disease of colon with complication (H) CONTINUE these medications which have CHANGED Details predniSONE (DELTASONE) 10 MG tablet Take 1 tablet (10 mg) by mouth daily for 7 days, THEN 0.5 tablets (5 mg) daily for 7 days. Qty: 11 tablet, Refills: 0 Associated Diagnoses: Crohn's disease of colon with complication (H) CONTINUE these medications which have NOT CHANGED [...] abdominal pain; Partial small bowel obstruction (H) esomeprazole (NEXIUM) [address] capsule Take [...] Associated Diagnoses: IBD (inflammatory bowel disease); Nausea polyethylene glycol (MIRALAX) 17 GM/Dose powder Take 17 g by mouth daily Qty: 510 g, Refills: 3 Associated Diagnoses: RLQ abdominal pain; Partial small bowel obstruction (H) sennosides (SENOKOT) 8.6 MG tablet Take 1-2 tablets by mouth 2 times daily as needed for constipation Qty: 90 tablet, Refills: 1 Associated Diagnoses: RLQ abdominal pain; Partial small bowel obstruction (H) traZODone (DESYREL) 100 MG tablet Take 200 mg by mouth At Bedtime Allergies Allergies Allergen Reactions ??? Latex Hives ??? Oxycodone Anaphylaxis, Hives and Swelling Throat swelling, per pt ??? Penicillin G Anaphylaxis ??? Sumatriptan Palpitations ??? Aspirin Nausea and Vomiting ??? Demerol Hcl [Meperidine] Nausea and Vomiting N/V ??? Percocet [Oxycodone-Acetaminophen] Nausea and Vomiting N/V ??? Codeine Nausea and Vomiting ??? Mold documented in this encounter Discharge Instructions * Attachments The following attachments cannot be sent through Care Everywhere. * (S) EATING A LOW-FIBER DIET ([place]ORUBA) * Diet, Low-Fiber (Guatemalan) documented in this encounter Medications at Time of Discharge Medication Sig Dispensed Refills Start Date End Date acetaminophen (TYLENOL) 650 MG CR [...] needed for constipation 10 suppository 1 02/23/2023 esomeprazole (NEXIUM) [address] capsule Take [...] 28 days 11.2 mL 0 03/26/2023 04/23/2023 predniSONE (DELTASONE) 10 MG tabletIndications:Cr ohn's disease of colon with complication (H) Take 1 tablet (10 mg) by mouth daily for 7 days, THEN 0.5 tablets (5 mg) daily for 7 days. 11 tablet 0 03/27/2023 04/10/2023 polyethylene glycol (MIRALAX) 17 GM/Dose powderIndications:RL Q [...] Progress Notes * Roberta Ramirez PA-C - 03/26/2023 8:25 AM CDT Images from the original note were not included. COLON & RECTAL SURGERY PROGRESS NOTE March 26, 2023 Post-op Day # 5 SUBJECTIVE: Tolerating a diet. +BM/gas. Darker stool last night. No nausea and vomiting. Feels ready to go home. Pain is controlled. OBJECTIVE: Temp: [97.7 ??F (36.5 ??C)-98.6 ??F (37 ??C)] 97.7 ??F (36.5 ??C) Pulse: [81-89] 81 Resp: [16-18] 16 BP: (111-134)/(41-68) 134/68 SpO2: [94 %-96 %] 96 % No intake or output data in the 24 hours ending 03/26/23 0825 GENERAL: Awake, alert, no acute distress, lying in bed HEAD: Nomocephalic atraumatic SCLERA: anicteric EXTREMITIES: warm and well perfused ABDOMEN: Soft, appropriately tender, non-distended, no rebound or guarding, no peritoneal signs. INCISION: C/d/i. LABS: Lab Results Component Value Date WBC 7.2 03/26/2023 Lab Results Component Value Date HGB 8.2 03/26/2023 Lab Results Component Value Date HCT 25.7 03/26/2023 Lab Results Component Value Date PLT 220 03/26/2023 Last Basic Metabolic Panel: Lab Results Component Value Date NA 143 03/25/2023 Lab Results Component Value Date POTASSIUM 3.9 03/25/2023 Lab Results Component Value Date CHLORIDE 107 03/25/2023 Lab Results Component Value Date DAJA 8.5 03/25/2023 Lab Results Component Value Date CO2 29 03/25/2023 Lab Results Component Value Date BUN 12.7 03/25/2023 Lab Results Component Value Date CR 1.00 03/25/2023 Lab Results Component Value Date GLC 94 03/25/2023 GLC 107 03/21/2023 ASSESSMENT/PLAN: 63 y/o woman??POD#5??s/p ileocolic resection with post-course complicated by anastomotic bleed. Hgb 8.2 this morning. ?? - Low fiber diet - Steroid taper. 10mg of prednisone for 7 days total. Then decrease to 5mg for 7 days. - Pain management as needed - Encourage ambulation - Restart Lovenox today for ppx. Will need this at discharge for 28 days post op so please provide education. - May be able to discharge later today if no further bleeding with Lovenox. - Would hold off on next Remicade infusion until after her post op visit in one month For questions/paging, please contact the CRS office at [phone]. Roberta Ramirez PA-C [facility] Attending Note Patient seen and examined independently. Agree with above assessment and plan. Green/ dark stools. Tolerating low fiber. Wants to go home abd soft, incision CDI Plan restart lovenox if doing well can discharge after lunch. Follow up for a ost op check in 3-4 weeks Hold Remicade until after post op visit. Madison Iverson MD [facility] [address] [facility], [address] [place] [address] T: [phone] F: [phone] [email or web address] ADDENDUM: Length of stay: 5 days Indicate Y or N for the following: UTI No C diff No PNA No SSI No DVT No PE No CVA No VT No Enterocutaneous fistula No Peripheral nerve injury No Abscess (not adjacent to anastomosis) No Leak No Treated with: Antibiotics N/A Drain N/A Reoperation N/A within 30 days No Reintubation No Reoperation No Procedure N/A * Madison Iverson MD - 03/25/2023 12:18 PM CDT Images from the original note were not included. COLON & RECTAL SURGERY PROGRESS NOTE March 25, 2023 Post-op Day # 4 SUBJECTIVE: Feels well. Tolerating low fiber diet. No nausea or vomiting. + gas. No BM. Has had a few more episodes of passing dark blood, most recently this morning. Pain is controlled. AVSS. Hgb 8.6. OBJECTIVE: Temp: [98 ??F (36.7 ??C)-99.2 ??F (37.3 ??C)] 98 ??F (36.7 ??C) Pulse: [86-91] 86 Resp: [18-20] 18 BP: (100-121)/(55-66) 121/66 SpO2: [90 %-98 %] 90 % Intake/Output Summary (Last 24 hours) at 03/25/2023 1218 Last data filed at 03/24/2023 2100 Gross per 24 hour Intake 1307 ml Output 900 ml Net 407 ml GENERAL: Awake, alert, no acute distress, sitting up in her chair HEAD: Nomocephalic atraumatic SCLERA: anicteric EXTREMITIES: warm and well perfused ABDOMEN: Soft, appropriately tender, non-distended, no rebound or guarding, no peritoneal signs INCISION: C/d/i, some bruising LABS: Lab Results Component Value Date WBC 7.1 03/25/2023 Lab Results Component Value Date HGB 8.6 03/25/2023 Lab Results Component Value Date HCT 26.5 03/25/2023 Lab Results Component Value Date PLT 214 03/25/2023 Last Basic Metabolic Panel: Lab Results Component Value Date NA 143 03/25/2023 Lab Results Component Value Date POTASSIUM 3.9 03/25/2023 Lab Results Component Value Date CHLORIDE 107 03/25/2023 Lab Results Component Value Date DAJA 8.5 03/25/2023 Lab Results Component Value Date CO2 29 03/25/2023 Lab Results Component Value Date BUN 12.7 03/25/2023 Lab Results Component Value Date CR 1.00 03/25/2023 Lab Results Component Value Date GLC 94 03/25/2023 GLC 107 03/21/2023 ASSESSMENT/PLAN: 63 y/o woman??POD#4??s/p ileocolic resection with post-course complicated by anastomotic bleed. No further bleeding since yesterday afternoon. Hgb 8.6 this morning. ?? - Low fiber diet - Steroid taper - Pain management as needed - Encourage ambulation - Hold Lovenox. Continue to monitor hemoglobin and for signs of bleeding. For questions/paging, please contact the CRS office at [phone]. Roberta Ramirez PA-C [facility] Attending Note Patient seen and examined independently. Agree with above assessment and plan. Frequent loose stools this after noon. No further blood abd soft, incision cdi Plan Oral steroids LFD Likely discharge home tomorrow. Madison Iverson MD [facility] [address] [facility], [address] [place] [address] T: [phone] F: [phone] [email or web address] * Homar Colón MD - 03/25/2023 10:12 AM CDT [facility] Medicine Progress Note - Hospitalist Service Date of Admission: 03/19/2023 Assessment & Plan 63F with hx of RCC s/p nephrectomy w/ CKD Stage III and Crohn's disease on Remicade with recent hospitalization discharged on steroid taper re-presents with ongoing abdominal pain and diarrhea and found to have ongoing evidence of ileitis on CT scan with luminal narrowing. CRS and GI were consultedand patient underwent ileocolic resection on 03/21/23. ?? PLAN ?? Acute blood loss anemia - Colorectal surgery following. [place] to be secondary to an anastomotic bleed. Blood is decreasing and dark, so possible that bleeding has stopped. - Hemodynamically stable. - CRS transfuse 1 unit(s) PRBCs on 03/23 due to symptomatic anemia. Only one episode of dark blood today. -Hg 8.6 g - Continue to trend Hgb. Transfuse if Hgb < 7 or per CRS. - SubQ Lovenox on hold -Plan to monitor CBC if hemoglobin stable in the a.m. she can be discharged ?? Crohn's Ileitis, Acute on Chronic -Presents with ongoing abdominal pain 2/2 ileitis that continues after recent admission under similar circumstances where she received IV steroids -Abdominal pain and diarrhea continued despite steroid taper and Remicade on outpatient basis - On admission, ongoing evidence of ileitis on CT scan with luminal narrowing - CRS and GI were consulted and patient underwent ileocolic resection on 03/21/23. - Planning to complete steroid taper. If bleeding below resolves and tolerating diet, can consider transition to oral regimen in coming days. - Diet advanced per CRS. Does still have IVF running at 75 ml/hour. If tolerating diet well enough tomorrow, would consider stopping. - Continue to encourage mobility and ambulation. - GI has signed off. Cancel upcoming dose of Remicade. Keep follow up appointment at [facility] in scheduled, colonoscopy in 5-6 months. - Avoid NSAIDS. ?? Lactic Acidosis - Present on admission. Suspect 2/2 hypovolemia. Resolved. ?? RCC s/p nephrectomy w/ CKD Stage III - Cr at baseline - Avoid nephrotoxins Diet: Low Fiber Diet Snacks/Supplements Adult: Ensure Enlive; Between Meals DVT Prophylaxis: Pneumatic Compression Devices Salazar Catheter: Not present Lines: None Cardiac Monitoring: None Code Status: Full Code Clinically Significant Risk Factors # Overweight: Estimated body mass index is 28.35 kg/m?? as calculated from the following: Height as of this encounter: 1.6 m (5' 3). Weight as of this encounter: 72.6 kg (160 lb 0.9 oz). Disposition Plan Expected Discharge Date: 03/25/2023 Destination: home Homar Colón MD Hospitalist Service [facility] Securely message with [employer] (more info) Text page via [facility] Paging/Directory Interval History Patient seen examined at bedside/chart reviewed. She complains of moderate abdominal pain with somenausea. She has been up and ambulatory and walking the halls. She reported a bowel movement that was dark this AM. Hg 8.6 g this a.m. Physical Exam Vital Signs: Temp: 98 ??F (36.7 ??C) Temp src: Oral BP: 121/66 Pulse: 86 Resp: 18 SpO2: 90 % O2 Device: None (Room air) Weight: 160 lbs .86 oz Nurse guardian family member Mayela Constitutional: Pleasant woman seen sitting up in bed in the afternoon. Family at bedside. Alert and oriented x3. Continues to appear slightly uncomfortable, but otherwise no acute distress. HEENT: NCAT. EOMI. Moist oral mucosa. Respiratory: Clear to auscultation bilaterally on anterior exam. No crackles or wheezes. Cardiovascular: Regular rate and rhythm. GI: Patient defers abdominal exam at this time secondary to pain. Note that colorectal surgery is following post-operatively after bowel resection. Musculoskeletal: No gross deformities. Neurologic: Alert and oriented x3. No focal neurologic deficits. Did not assess gait. Medical Decision Making 40 MINUTES SPENT BY ME on the date of service doing chart review, history, exam, documentation & further activities per the note. Data NOTE: Data reviewed over the past 24 hrs contributes toward MDM complexity * Chris Mcmahan, RD - 03/25/2023 12:43 AM CDT CLINICAL NUTRITION SERVICES - ASSESSMENT NOTE Nutrition Prescription RECOMMENDATIONS FOR MDs/PROVIDERS TO ORDER: None Malnutrition Status: Patient does not meet criteria for malnutrition Recommendations already ordered by Registered Dietitian (RD): Chocolate ensure BID b/ln meals Multivitamin w/ cosign as pt is meeting < 75% nutrition needs Future/Additional Recommendations: Adjust supplements pending PO intake/pt preference REASON FOR ASSESSMENT Hortensia Buitrago is a/an 63 year old female assessed by the dietitian for Admission Nutrition Risk Screen for positive Patient presents with Crohn's, RCC s/p nephrectomy, CKD3, acute blood loss anemia NUTRITION HISTORY Patient was following a low fiber diet at home of no more than 13g fiber daily. Pt was concerned that she was getting too much fiber at home as she was having up to 8g of fiber in a single meal. Pt could not verbalize how she felt after eating the 8g of fiber. Pt's family bought her two Crohn's disease books/cookbooks written by a Physician and a Registered Dietitian respectively. Pt stated she has had a poor appetite of < 50% usual intake since November 28, 2022. Pt noted herweight fluctuates with stated UBW 175-180lbs. Pt drinks a chocolate Ensure at 10am and 2pm CURRENT NUTRITION ORDERS Diet: Low Fiber Intake/Tolerance: pt eating 50-100% of meals per nursing records and receiving on average 751kcals and 28g protein daily LABS Labs reviewed: Cr 1.01, anion gap 6, hgb 9.2, hematocrit 27.4, rbc 2.99, RDW 16.1 MEDICATIONS Medications reviewed: deltasone, lactated ringers ANTHROPOMETRICS Height: 160 cm (5' 3) Most Recent Weight: 73.5 kg (162 lb 0.6 oz) IBW: 52.4 kg BMI: Overweight BMI 25-29.9 Weight History: Wt Readings from Last 30 Encounters: 03/24/23 73.5 kg (162 lb 0.6 oz) 02/21/23 64.7 kg (142 lb 11.2 oz) No other wt hx available Dosing Weight: 73.5 kg and 57.7kg ABW for protein/fluid ASSESSED NUTRITION NEEDS Estimated Energy Needs: 1512 kcals/day ([place] Jeor) Justification: Maintenance and Overweight Estimated Protein Needs: 46 grams protein/day (0.8 grams of pro/kg) Justification: CKD and Maintenance Estimated Fluid Needs: 1730 mL/day (30 mL/kg) Justification: Maintenance PHYSICAL FINDINGS See malnutrition section below. No abnormal nutrition-related physical findings observed. MALNUTRITION: % Weight Loss: None noted % Intake: Decreased intake does not meet criteria for malnutrition as it has only been 6 days of eating < 75% estimated energy needs Subcutaneous Fat Loss: None observed Muscle Loss: Temporal region mild depletion, Clavicle bone region mild depletion and Posterior calfregion mild depletion Fluid Retention: None noted Malnutrition Diagnosis: Patient does not meet two of the above criteria necessary for diagnosing malnutrition NUTRITION DIAGNOSIS Inadequate protein-energy intake related to Crohn's disease as evidenced by meeting < 75% nutrition needs for 6 days INTERVENTIONS Implementation Nutrition Education: Provided education on slowing increasing fiber as tolerated per physician direction Multivitamin/mineral supplement therapy Goals Patient to consume 75-100% of nutritionally adequate meals three times per day, or the equivalent with supplements/snacks. Total avg nutritional intake to meet a minimum of 1512 kcal/kg and 46 g PRO/kg daily (per dosing wt73.5 kg and 57.7 kg). Monitoring/Evaluation Progress toward goals will be monitored and evaluated per protocol. PO intake, supplement tolerance, wt, labs * Ella Suarez MD - 03/24/2023 8:38 PM CDT [facility] Hospitalist Progress Note Assessment & Plan ASSESSMENT 63F with hx of RCC s/p nephrectomy w/ CKD Stage III and Crohn's disease on Remicade with recent hospitalization discharged on steroid taper re-presents with ongoing abdominal pain and diarrhea and found to have ongoing evidence of ileitis on CT scan with luminal narrowing. CRS and GI were consultedand patient underwent ileocolic resection on 03/21/23. PLAN Acute blood loss anemia - Colorectal surgery following. [place] to be secondary to an anastomotic bleed. Blood is decreasing and dark, so possible that bleeding has stopped. - Hemodynamically stable. - Colorectal surgery did transfuse 1 unit(s) PRBCs on 03/23 due to symptomatic anemia. Only one episode of dark blood today. No bright red blood. - Continue to trend Hgb. Transfuse if Hgb < 7 or per CRS. - SubQ Lovenox on hold. Crohn's Ileitis, Acute on Chronic -Presents with ongoing abdominal pain 2/2 ileitis that continues after recent admission under similar circumstances where she received IV steroids -Abdominal pain and diarrhea continued despite steroid taper and Remicade on outpatient basis - On admission, ongoing evidence of ileitis on CT scan with luminal narrowing - CRS and GI were consulted and patient underwent ileocolic resection on 03/21/23. - Planning to complete steroid taper. If bleeding below resolves and tolerating diet, can consider transition to oral regimen in coming days. - Diet advanced per CRS. Does still have IVF running at 75 ml/hour. If tolerating diet well enough tomorrow, would consider stopping. - Continue to encourage mobility and ambulation. - GI has signed off. Cancel upcoming dose of Remicade. Keep follow up appointment at [facility] in scheduled, colonoscopy in 5-6 months. - Avoid NSAIDS. Lactic Acidosis - Present on admission. Suspect 2/2 hypovolemia. Resolved. RCC s/p nephrectomy w/ CKD Stage III - Cr at baseline - Avoid nephrotoxins DVT Prophylaxis: Enoxaparin (Lovenox) subcutaneous is now held with bleeding. SCDs are ordered. Code Status: Full Code Expected discharge: Pending post-operative course. Ella Suarez MD FACP Hospitalist Service [facility] Securely message with [employer] (more info) Text page via [facility] Paging/Directory Subjective Patient with one episode of dark blood reported from rectum today. No bright red blood. Tolerating low fiber diet. Ambulating well in hallway today. Otherwise no new complaints or acute events. Objective Blood pressure 100/55, pulse 91, temperature 99.2 ??F (37.3 ??C), temperature source Oral, resp. rate 20, height 1.6 m (5' 3), weight 73.5 kg (162 lb 0.6 oz), SpO2 98 %. Constitutional: Pleasant woman seen sitting up in bed in the afternoon. Family at bedside. Alert and oriented x3. Continues to appear slightly uncomfortable, but otherwise no acute distress. HEENT: NCAT. EOMI. Moist oral mucosa. Respiratory: Clear to auscultation bilaterally on anterior exam. No crackles or wheezes. Cardiovascular: Regular rate and rhythm. GI: Patient defers abdominal exam at this time secondary to pain. Note that colorectal surgery is following post-operatively after bowel resection. Musculoskeletal: No gross deformities. Neurologic: Alert and oriented x3. No focal neurologic deficits. Did not assess gait. Medications ??? lactated ringers 75 mL/hr at 03/24/23 1659 ??? [Held by provider] enoxaparin ANTICOAGULANT 40 mg Subcutaneous Q24H ??? esomeprazole 40 mg Oral BID AC ??? montelukast 10 mg Oral At Bedtime ??? nortriptyline 25 mg Oral At Bedtime ??? predniSONE 10 mg Oral Daily ??? sodium chloride (PF) 3 mL Intracatheter Q8H ??? traZODone 200 mg Oral At Bedtime Data Recent Labs Lab 03/24/23 0658 03/23/23 2211 03/23/23 1723 03/23/23 0607 03/22/23 1611 03/22/23 0638 03/20/23 0806 03/19/23 1530 WBC 9.8 -- -- 9.8 -- 14.2* < > 9.8 HGB 8.7* 9.4* 9.6* 7.9* < > 9.5* < > 12.7 MCV 92 -- -- 92 -- 92 < > 91 PLT 195 -- -- 240 -- 277 < > 294 NA 139 -- -- 139 -- 139 < > 138 POTASSIUM 4.0 -- -- 4.2 -- 4.1 < > 4.7 CHLORIDE 105 -- -- 106 -- 106 < > 101 CO2 28 -- -- 26 -- 25 < > 26 BUN 17.5 -- -- 29.0* -- 16.0 < > 10.0 CR 1.01* -- -- 1.05* -- 1.01* < > 1.14* ANIONGAP 6* -- -- 7 -- 8 < > 11 DAJA 8.6* -- -- 8.5* -- 8.3* < > 9.4 GLC 96 -- -- 104* -- 103* < > 102* ALBUMIN -- -- -- -- -- -- -- 4.3 PROTTOTAL -- -- -- -- -- -- -- 6.5 BILITOTAL -- -- -- -- -- -- -- 0.5 ALKPHOS -- -- -- -- -- -- -- 66 ALT -- -- -- -- -- -- -- 17 AST -- -- -- -- -- -- -- 18 < > = values in this interval not displayed. No results found for this or any previous visit (from the past 24 hour(s)). * Johnnie Eduardo - 03/24/2023 11:22 AM CDT [facility] Progress Note [facility] Med/Surg 5 Saw pt, [place], per admission request. She had company ([employer]) and requested that I come visit later, but requested prayer for healing and pain relief. We shared prayer together. Plan: I and other chaplains remain available for further support. Sam Lal Qc Analyst [facility] routine referrals *[id number] [facility] available 31/03 for emergent requests/referrals, either by paging the on-call disability rater or by entering an BUSTER/STAT consult in [facility] (this will also page the on-call disability rater). * Madison Iverson MD - 03/24/2023 10:53 AM CDT Images from the original note were not included. COLON & RECTAL SURGERY PROGRESS NOTE March 24, 2023 Post-op Day # 3 SUBJECTIVE: Pain is controlled. She has been tolerating full liquids without nausea and vomiting. No BM or gas yet. No further bleeding episodes since transfusion yesterday. Hgb 8.7 from 9.4. OBJECTIVE: Temp: [97.2 ??F (36.2 ??C)-98.9 ??F (37.2 ??C)] 98.8 ??F (37.1 ??C) Pulse: [84-98] 94 Resp: [18-20] 20 BP: (100-120)/(56-71) 100/62 SpO2: [94 %-99 %] 97 % Intake/Output Summary (Last 24 hours) at 03/24/2023 1053 Last data filed at 03/24/2023 0942 Gross per 24 hour Intake 1088 ml Output 1250 ml Net -162 ml GENERAL: Awake, alert, no acute distress, lying in bed HEAD: Nomocephalic atraumatic SCLERA: anicteric EXTREMITIES: warm and well perfused ABDOMEN: Soft, appropriately tender, non-distended, no rebound or guarding, no peritoneal signs. INCISION: C/d/i, some bruising noted LABS: Lab Results Component Value Date WBC 9.8 03/24/2023 Lab Results Component Value Date HGB 8.7 03/24/2023 Lab Results Component Value Date HCT 27.4 03/24/2023 Lab Results Component Value Date PLT 195 03/24/2023 Last Basic Metabolic Panel: Lab Results Component Value Date NA 139 03/24/2023 Lab Results Component Value Date POTASSIUM 4.0 03/24/2023 Lab Results Component Value Date CHLORIDE 105 03/24/2023 Lab Results Component Value Date DAJA 8.6 03/24/2023 Lab Results Component Value Date CO2 28 03/24/2023 Lab Results Component Value Date BUN 17.5 03/24/2023 Lab Results Component Value Date CR 1.01 03/24/2023 Lab Results Component Value Date GLC 96 03/24/2023 GLC 107 03/21/2023 ASSESSMENT/PLAN: 63 y/o woman POD#3 s/p ileocolic resection with post-course complicated by anastomotic bleed. No further bleeding since yesterday afternoon. Hgb 8.7 this morning. - Low fiber diet - Steroid taper - Pain management as needed - Encourage ambulation - Hold Lovenox. Continue to monitor hemoglobin and for signs of bleeding. For questions/paging, please contact the CRS office at [phone]. Roberta Ramirez PA-C [facility]al [facility] Attending Note Patient seen and examined independently. Agree with above assessment and plan. Up walking some. Voiding well. Pain controlled with occasional oral Dilaudid and Tylenol. Did have some gas with some dark blood this morning. No bright red blood. Abdomen: Soft, nontender, nondistended. Incision clean dry and intact. Plan: Continue low fiber diet, oral steroids, pain management as needed, continue to hold Lovenox until hemoglobin stable. CBC ordered for tomorrow morning. Pathology results pending. Madison Iverson MD [facility] [address], [address] [place] [address] T: [phone] F: [phone] [email or web address] * Subha Ball RN - 03/23/2023 6:46 PM CDT End of Shift Summary For vital signs and complete assessments, please see documentation flowsheets. Pertinent assessments: A/Ox4, VSS, c/o abdominal pain but much improved since yesterday, tylenol & ice given & dilaudid x1. Lap sites and midline incision open to air, Denies N/V. X3 episodesof dark blood when going to the BR, did relay to MD. Pt initially symptomatic of low hgb w/ dizziness, but did improve w/ blood administration. Major Shift Events: Blood transfusion for bleeding + symptomatic low hgb Treatment Plan: Pain management. IV Hydrocortisone. Diet advancement. Encourage mobility. Return ofbowel function. Bedside Nurse: Subha Ball RN * Ella Suarez MD - 03/23/2023 5:00 PM CDT [facility] Hospitalist Progress Note Assessment & Plan ASSESSMENT 63F with hx of RCC s/p nephrectomy w/ CKD Stage III and Crohn's disease on Remicade with recent hospitalization discharged on steroid taper re-presents with ongoing abdominal pain and diarrhea and found to have ongoing evidence of ileitis on CT scan with luminal narrowing. CRS and GI were consultedand patient underwent ileocolic resection on 03/21/23. PLAN Crohn's Ileitis, Acute on Chronic -Presents with ongoing abdominal pain 2/2 ileitis that continues after recent admission under similar circumstances where she received IV steroids -Abdominal pain and diarrhea continued despite steroid taper and Remicade on outpatient basis - On admission, ongoing evidence of ileitis on CT scan with luminal narrowing - CRS and GI were consulted and patient underwent ileocolic resection on 03/21/23. - Planning to complete steroid taper. If bleeding below resolves and tolerating diet, can consider transition to oral regimen in coming days. - Diet advanced per CRS. - GI has signed off. Cancel upcoming dose of Remicade. Keep follow up appointment at [facility] [place], colonoscopy in 5-6 months. - Avoid NSAIDS Acute blood loss anemia - Colorectal surgery following. [place] to be secondary to an anastomotic bleed. Blood is decreasing and dark, so possible that bleeding has stopped. - Hemodynamically stable. - Colorectal surgery did transfuse 1 unit(s) PRBCs on 03/23 due to symptomatic anemia. - Continue to trend Hgb. - SubQ Lovenox on hold. Lactic Acidosis - Present on admission. Suspect 2/2 hypovolemia. Resolved. RCC s/p nephrectomy w/ CKD Stage III - Cr at baseline - Avoid nephrotoxins DVT Prophylaxis: Enoxaparin (Lovenox) subcutaneous is now held with bleeding. SCDs are ordered. Code Status: Full Code Expected discharge: Inpatient for another 2-3 more days depending on clinical progression after surgery. Ella Suarez MD FACP Hospitalist Service [facility] Securely message with [employer] (more info) Text page via [facility] Paging/Directory Subjective Patient with blood reported from rectum this morning. Hgb has trended down to 7.9 this morning. Colorectal surgery transfusing 1 unit(s) PRBCs due to symptomatic anemia. Has had 3 more episodes of dark blood from rectum for remainder of day, though amount decreasing and patient remaining hemodynamically stable. Continue full liquid diet at this time per CRS. Objective Blood pressure 120/58, pulse 89, temperature 97.2 ??F (36.2 ??C), temperature source Oral, resp. rate 18, height 1.6 m (5' 3), weight 70.2 kg (154 lb 12.8 oz), SpO2 98 %. Constitutional: Pleasant woman seen sitting up in bed in the afternoon. Family at bedside. Alert and oriented x3. Continues to appear slightly uncomfortable, but otherwise no acute distress. HEENT: NCAT. EOMI. Moist oral mucosa. Respiratory: Clear to auscultation bilaterally on anterior exam. No crackles or wheezes. Cardiovascular: Regular rate and rhythm. GI: Patient defers abdominal exam at this time secondary to pain. Note that colorectal surgery is following post-operatively after bowel resection. Musculoskeletal: No gross deformities. Neurologic: Alert and oriented x3. No focal neurologic deficits. Did not assess gait. Medications ??? lactated ringers 75 mL/hr at 03/23/23 0721 ??? acetaminophen 975 mg Oral Q8H ??? [Held by provider] enoxaparin ANTICOAGULANT 40 mg Subcutaneous Q24H ??? esomeprazole 40 mg Oral BID AC ??? hydrocortisone sodium succinate PF 25 mg Intravenous Q12H ??? montelukast 10 mg Oral At Bedtime ??? nortriptyline 25 mg Oral At Bedtime ??? sodium chloride (PF) 3 mL Intracatheter Q8H ??? traZODone 200 mg Oral At Bedtime Data Recent Labs Lab 03/23/23 0607 03/22/23 1611 03/22/23 0638 03/21/23 2128 03/21/23 1338 03/20/23 0806 03/19/23 1530 WBC 9.8 -- 14.2* -- -- 7.4 9.8 HGB 7.9* 8.8* 9.5* -- -- 11.5* 12.7 MCV 92 -- 92 -- -- 92 91 PLT 240 -- 277 -- -- 242 294 NA 139 -- 139 -- -- 140 138 POTASSIUM 4.2 -- 4.1 -- -- 4.2 4.7 CHLORIDE 106 -- 106 -- -- 105 101 CO2 26 -- 25 -- -- 27 26 BUN 29.0* -- 16.0 -- -- 9.7 10.0 CR 1.05* -- 1.01* 0.99* -- 1.04* 1.14* ANIONGAP 7 -- 8 -- -- 8 11 DAJA 8.5* -- 8.3* -- -- 8.5* 9.4 GLC 104* -- 103* -- 107* 87 102* ALBUMIN -- -- -- -- -- -- 4.3 PROTTOTAL -- -- -- -- -- -- 6.5 BILITOTAL -- -- -- -- -- -- 0.5 ALKPHOS -- -- -- -- -- -- 66 ALT -- -- -- -- -- -- 17 AST -- -- -- -- -- -- 18 No results found for this or any previous visit (from the past 24 hour(s)). * Issa Bruno MD - 03/23/2023 11:45 AM CDT Images from the original note were not included. Colon & Rectal Surgery Progress Note Interval History: POD#2 3 episodes of large volume of dark blood per rectum, with last episode overnight. Hgb also downtrending from 11.5 to 9.5 to 8.8 to 7.9 Reports dizziness this morning. Otherwise, tolerating fulls, no bowel function and voiding adequately. Medications: I have reviewed this patient's current medications Physical Exam: BP 100/60 Pulse 88 Temp 97.8 ??F (36.6 ??C) (Oral) Resp 18 Ht 1.6 m (5' 3) Wt 70.2 kg (154 lb 12.8 oz) SpO2 97% BMI 27.42 kg/m?? Intake/Output Summary (Last 24 hours) at 03/22/2023 1046 Last data filed at 03/22/2023 0723 Gross per 24 hour Intake 2303.75 ml Output 725 ml Net 1578.75 ml GEN: alert ABD: Soft, mild distension, ttp on right side, no rebound or guarding. Incision sites- c.d.i Data: Lab Results Component Value Date WBC 14.2 03/22/2023 Lab Results Component Value Date RBC 3.38 03/22/2023 Lab Results Component Value Date HGB 9.5 03/22/2023 Lab Results Component Value Date HCT 31.2 03/22/2023 No components found for: MCT Lab Results Component Value Date MCV 92 03/22/2023 Lab Results Component Value Date MCH 28.1 03/22/2023 Lab Results Component Value Date MCHC 30.4 03/22/2023 Lab Results Component Value Date RDW 16.4 03/22/2023 Lab Results Component Value Date PLT 277 03/22/2023 Last Comprehensive Metabolic Panel: Lab Results Component Value Date NA 139 03/23/2023 POTASSIUM 4.2 03/23/2023 CHLORIDE 106 03/23/2023 CO2 26 03/23/2023 ANIONGAP 7 03/23/2023 GLC 104 (H) 03/23/2023 BUN 29.0 (H) 03/23/2023 CR 1.05 (H) 03/23/2023 GFRESTIMATED 59 (L) 03/23/2023 DAJA 8.5 (L) 03/23/2023 Assessment and Plan: 63 y/o woman POD#2 s/p lap ileocolic resection with post-course complicated by anastomotic bleed. Patient is clinically stable but symptomatic, so will transfuse 1uPRBC. Given trend of hgb and that blood was dark, likely the bleeding has stopped, but might still have further dark BMs from residuals - Cont fulls - Will give 1uPRBC for symptomatic anemia, check post-tx hgb. - Can stop IVFs after transusion - Strict I/Os, monitor UOP - Multimodal pain meds - steroid taper - Lovenox held Discussed with Dr. Sergio Bruno MD [facility] Fellow [facility] [address] [place] [address] T: [phone] F: [phone] * Ritesh Leach, PT - 03/23/2023 10:26 AM CDT 03/23/23 0942 Appointment Info Signing Clinician's Name / Credentials (PT) Ritesh Leach DPT Living Environment People in Home spouse Current Living Arrangements house Home Accessibility stairs to enter home Number of Stairs, Main Entrance 2 Stair Railings, Main Entrance railings safe and in good condition Transportation Anticipated family or friend will provide Self-Care Usual Activity Tolerance excellent Current Activity Tolerance good Equipment Currently Used at Home none Fall history within last six months no General Information Onset of Illness/Injury or Date of Surgery 03/19/23 Referring Physician Ella Suarez MD Patient/Family Therapy Goals Statement (PT) Return home Pertinent History of Current Problem (include personal factors and/or comorbidities that impact thePOC) Per chart review patient is a 63F with hx of RCC s/p nephrectomy w/ CKD Stage III and Crohn's disease on Remicade with recent hospitalization discharged on steroid taper re-presents with ongoingabdominal pain and diarrhea and found to have ongoing evidence of ileitis on CT scan with luminal narrowing. CRS and GI were consulted and patient underwent ileocolic resection on 03/21/23. Cognition Affect/Mental Status (Cognition) WNL Orientation Status (Cognition) oriented x 4 Follows Commands (Cognition) WNL Integumentary/Edema Integumentary/Edema no deficits were identifed Posture Posture Not impaired Range of Motion (ROM) Range of Motion ROM is WFL Strength (Manual Muscle Testing) Strength (Manual Muscle Testing) strength is WFL;No deficits observed during functional mobility Bed Mobility Bed Mobility no deficits identified Transfers Transfers no deficits identified Gait/Stairs (Locomotion) [place] Level (Gait) independent Distance in Feet 35 Pattern (Gait) step-through;swing-through Balance Balance no deficits were identified Coordination Coordination no deficits were identified Muscle Tone Muscle Tone no deficits were identified Clinical Impression Criteria for Skilled Therapeutic Intervention Evaluation only PT Diagnosis (PT) Impaired functional mobility Influenced by the following impairments decreased activity tolerance Functional limitations due to impairments Impaired functional mobility Clinical Presentation (PT Evaluation Complexity) Stable/Uncomplicated Clinical Presentation Rationale clinical judgement Clinical Decision Making (Complexity) low complexity Clinical Impression Comments Patient presents near functional baseline. No skilled physical therapyneeds identified PT Total Evaluation Time PT Eval, Low Complexity Minutes (21594) 24 PT Discharge Planning PT Plan Evaluation only PT Discharge Recommendation (DC Rec) home PT Rationale for DC Rec Patient performed functional mobility with independence and good safety awarenss. Able to ambulate hallway with nursing staff. No skilled physical therapy needs identified. Good support at home Total Session Time Total Session Time (sum of timed and untimed services) 24 * Subha Ball RN - 03/22/2023 6:36 PM CDT End of Shift Summary For vital signs and complete assessments, please see documentation flowsheets. Pertinent assessments: Pt A/O. VSS. Weaned off o2. Dilaudid 5x given for abdo pain. Zofran for intermittent nausea. BS hypo. Midline incision and lap sited w/ liquid bandage, BASILIA. [place] removed, pt voided. Pt needs encouragement to eat the fulls. Pt had an episode of when she went to the bathroom she had a medium amount of blood come out when she tried to have a BM, MD notified, denies being symptomatic w/ any abnormal dizziness or any other symptoms. Ambulated hallways x2 Major Shift Events: Sal[place] removed, med amount of blood on trying to have a BM Treatment Plan: pain management, encourage diet, encourage ambulation, monitor for return of bowel function Bedside Nurse: Subha Ball RN * Ella Suarez MD - 03/22/2023 1:01 PM CDT [facility] Hospitalist Progress Note Assessment & Plan ASSESSMENT 63F with hx of RCC s/p nephrectomy w/ CKD Stage III and Crohn's disease on Remicade with recent hospitalization discharged on steroid taper re-presents with ongoing abdominal pain and diarrhea and found to have ongoing evidence of ileitis on CT scan with luminal narrowing. CRS and GI were consultedand patient underwent ileocolic resection on 03/21/23. PLAN Crohn's Ileitis, Acute on Chronic -Presents with ongoing abdominal pain 2/2 ileitis that continues after recent admission under similar circumstances where she received IV steroids -Abdominal pain and diarrhea continued despite steroid taper and Remicade on outpatient basis - On admission, ongoing evidence of ileitis on CT scan with luminal narrowing - CRS and GI were consulted and patient underwent ileocolic resection on 03/21/23. - Can complete solu-cortef taper. - IV fluids. - Diet advanced per CRS. - GI has signed off. Cancel upcoming dose of Remicade. Keep follow up appointment at [facility] in [place], colonoscopy in 5-6 months. - Avoid NSAIDS Lactic Acidosis - Suspect 2/2 hypovolemia. Resolved. RCC s/p nephrectomy w/ CKD Stage III - Cr at baseline - Avoid nephrotoxins DVT Prophylaxis: Enoxaparin (Lovenox) SQ Code Status: Full Code Expected discharge: Inpatient for another 2-3 more days depending on clinical progression after surgery. Ella Suarez MD [facility] Hospitalist Service [facility] Securely message with [employer] (more info) Text page via [facility] Paging/Directory Subjective Patient seen. Family at bedside. Reporting continued pain. CRS has advanced to full liquids. Other than pain, no new complaints. Objective Blood pressure 104/56, pulse 72, temperature 98.2 ??F (36.8 ??C), temperature source Oral, resp. rate 17, height 1.6 m (5' 3), weight 70.2 kg (154 lb 12.8 oz), SpO2 95 %. Constitutional: Pleasant woman seen resting in bed. Family at bedside. Alert and oriented x3. Appears slightly uncomfortable, but otherwise no acute distress. HEENT: NCAT. EOMI. Moist oral mucosa. Respiratory: Clear to auscultation bilaterally on anterior exam. No crackles or wheezes. Cardiovascular: Regular rate and rhythm. GI: Soft. Tender post-op. Musculoskeletal: No gross deformities. Neurologic: Alert and oriented x3. No focal neurologic deficits. Did not assess gait. Medications ??? lactated ringers 75 mL/hr at 03/22/23 0802 ??? acetaminophen 975 mg Oral Q8H ??? enoxaparin ANTICOAGULANT 40 mg Subcutaneous Q24H ??? esomeprazole 40 mg Oral BID AC ??? hydrocortisone sodium succinate PF 50 mg Intravenous Q8H Followed by ??? hydrocortisone sodium succinate PF 50 mg Intravenous BID Followed by ??? [START ON 03/23/2023] hydrocortisone sodium succinate PF 25 mg Intravenous Q12H ??? montelukast 10 mg Oral At Bedtime ??? nortriptyline 25 mg Oral At Bedtime ??? scopolamine 1 patch Transdermal Once ??? scopolamine Transdermal Q8H ??? sodium chloride (PF) 3 mL Intracatheter Q8H ??? traZODone 200 mg Oral At Bedtime Data Recent Labs Lab 03/22/23 0638 03/21/23 2128 03/21/23 1338 03/20/23 0806 03/19/23 1530 WBC 14.2* -- -- 7.4 9.8 HGB 9.5* -- -- 11.5* 12.7 MCV 92 -- -- 92 91 PLT 277 -- -- 242 294 NA 139 -- -- 140 138 POTASSIUM 4.1 -- -- 4.2 4.7 CHLORIDE 106 -- -- 105 101 CO2 25 -- -- 27 26 BUN 16.0 -- -- 9.7 10.0 CR 1.01* 0.99* -- 1.04* 1.14* ANIONGAP 8 -- -- 8 11 DAJA 8.3* -- -- 8.5* 9.4 GLC 103* -- 107* 87 102* ALBUMIN -- -- -- -- 4.3 PROTTOTAL -- -- -- -- 6.5 BILITOTAL -- -- -- -- 0.5 ALKPHOS -- -- -- -- 66 ALT -- -- -- -- 17 AST -- -- -- -- 18 No results found for this or any previous visit (from the past 24 hour(s)). * Ana Luisa Hill MD - 03/22/2023 10:45 AM CDT Images from the original note were not included. Colon & Rectal Surgery Progress Note Interval History: POD#1 Acute pain overnigth after moving in bed. Pain better this am. Denies n/v. No Flatus or BM. VSS. Medications: I have reviewed this patient's current medications Physical Exam: BP 104/56 (BP Location: Left arm) Pulse 72 Temp 98.2 ??F (36.8 ??C) (Oral) Resp 17 Ht 1.6 m(5' 3) Wt 70.2 kg (154 lb 12.8 oz) SpO2 95% BMI 27.42 kg/m?? Intake/Output Summary (Last 24 hours) at 03/22/2023 1046 Last data filed at 03/22/2023 0723 Gross per 24 hour Intake 2303.75 ml Output 725 ml Net 1578.75 ml GEN: alert ABD: Soft, ttp per midline incision, mild distention Data: Lab Results Component Value Date WBC 14.2 03/22/2023 Lab Results Component Value Date RBC 3.38 03/22/2023 Lab Results Component Value Date HGB 9.5 03/22/2023 Lab Results Component Value Date HCT 31.2 03/22/2023 No components found for: MCT Lab Results Component Value Date MCV 92 03/22/2023 Lab Results Component Value Date MCH 28.1 03/22/2023 Lab Results Component Value Date MCHC 30.4 03/22/2023 Lab Results Component Value Date RDW 16.4 03/22/2023 Lab Results Component Value Date PLT 277 03/22/2023 Last Comprehensive Metabolic Panel: Lab Results Component Value Date NA 139 03/22/2023 POTASSIUM 4.1 03/22/2023 CHLORIDE 106 03/22/2023 CO2 25 03/22/2023 ANIONGAP 8 03/22/2023 GLC 103 (H) 03/22/2023 BUN 16.0 03/22/2023 CR 1.01 (H) 03/22/2023 GFRESTIMATED 62 03/22/2023 DAJA 8.3 (L) 03/22/2023 Assessment and Plan: POD#1 s/p lap ileocolic resection. - ok for fulls - IVFs - IV/PO pain meds - remove salazar - Lovenox for DVT ppx Maryse Hill MD, FACS FASCRS Colorectal [facility] [address] [address] T: [phone] F: [phone] * Subha Ball RN - 03/21/2023 6:47 PM CDT End of Shift Summary For vital signs and complete assessments, please see documentation flowsheets. Pertinent assessments: Pt A/Ox4. VSS. IV dilaudid given for abd pain. BS hypoactive. LS clear. HS regular Major Shift Events: Surgery today Treatment Plan: pain management, bowel management Bedside Nurse: Subha Ball RN * Candy Lennon APRN [employer] - 03/21/2023 12:32 PM CDT Images from the original note were not included. [facility] Progress Note Interval History: Pain 6/10 in RLQ today. Nervous, but ready for surgery. Physical Exam: BP 118/74 (BP Location: Left arm) Pulse 79 Temp 98.1 ??F (36.7 ??C) (Oral) Resp 20 Ht 1.6 m(5' 3) Wt 70.2 kg (154 lb 12.8 oz) SpO2 98% BMI 27.42 kg/m?? Temp (24hrs), Av.3 ??F (36.8 ??C), Min:98 ??F (36.7 ??C), Max:98.7 ??F (37.1 ??C) Patient Vitals for the past 72 hrs: Weight 03/20/23 0926 70.2 kg (154 lb 12.8 oz) Intake/Output Summary (Last 24 hours) at 03/21/2023 1232 Last data filed at 03/21/2023 0053 Gross per 24 hour Intake 2453.33 ml Output -- Net 2453.33 ml Constitutional: No acute distress Abdomen: Soft, mild RLQ tenderness (after pain medication), hyperactive BS Laboratory Data Recent Labs Lab Test 03/20/23 0806 03/19/23 1530 02/22/23 0649 WBC 7.4 9.8 13.5* HGB 11.5* 12.7 12.5 MCV 92 91 88 PLT 242 294 244 Recent Labs Lab Test 03/20/23 0806 03/19/23 1530 02/23/23 0648 NA 140 138 137 POTASSIUM 4.2 4.7 4.0 4.0 CHLORIDE 105 101 101 CO2 27 26 23 BUN 9.7 10.0 20.0 CR 1.04* 1.14* 1.11* ANIONGAP 8 11 13 DAJA 8.5* 9.4 8.9 Recent Labs Lab Test 03/19/23 1816 03/19/23 1530 02/17/23 0721 02/11/23 0700 ALBUMIN -- 4.3 3.1* 3.6 BILITOTAL -- 0.5 0.4 0.2 DBIL -- <0.20 -- -- ALT -- 17 15 8* AST -- 18 10 13 ALKPHOS -- 66 57 68 PROTEIN Negative -- -- -- Imaging EXAM: CT ABDOMEN PELVIS W CONTRAST LOCATION: [facility] DATE: 03/19/2023 ?? INDICATION: Abdominal pain. Crohn's disease. COMPARISON: 02/20/2023 TECHNIQUE: CT scan of the abdomen and pelvis was performed following injection of IV contrast. Multiplanar reformats were obtained. Dose reduction techniques were used. CONTRAST: 71mL Isovue 370 ?? FINDINGS: LOWER CHEST: Unremarkable. ?? HEPATOBILIARY: Liver appears normal. Status post cholecystectomy. No biliary dilatation. ?? PANCREAS: Normal. ?? SPLEEN: Unchanged 0.6 cm low-attenuation lesion in the spleen, too small to characterize. ?? ADRENAL GLANDS: Normal. ?? KIDNEYS/BLADDER: Status post right nephrectomy. Left kidney appears normal. No hydronephrosis. Urinary bladder appears normal. ?? BOWEL: No significant change in 3 segments of terminal ileum demonstrating wall thickening and mucosal hyperenhancement with associated luminal narrowing. The mid to distal sigmoid colon is decompressed, which obscures the previously described segments of luminal narrowing. No definite inflammatory change involving the colon. No bowel obstruction. Noabscess. Appendix not visualized, although no secondary signs of acute appendicitis. ?? LYMPH NODES: No lymphadenopathy. ?? VASCULATURE: Moderate atherosclerotic calcifications. ?? PELVIC ORGANS: Status post hysterectomy. ?? MUSCULOSKELETAL: Multilevel degenerative changes of the spine. ? IMPRESSION: 1. ??No significant change in 3 segments of terminal ileum demonstrating acute on chronic ileitis with luminal narrowing. No bowel obstruction. No abscess. Assessment & Plan: 63 year old female with PMH including asthma, migraines and renal cell cancer that was managed surgically with right nephrectomy in 2008??who presented to emergency room??with??complaints of ongoing abdominal pain, nausea/vomiting and loose stools since her discharge from [facility] about 3 weeks ago for suspected Crohn's ileitis. Colonoscopy in January showed TI inflammation with ulceration and stricture. Biopsies showed chronic ileitis with nonspecific features, nondiagnostic in setting of previous chronic Aleve use. No NSAID use since January. Continued symptoms of severe abdominal pain, nausea, occasional vomiting and loose stools since November. Treated for presumed Crohn's ileitis with steroids and initiation of Remicade 02/18/2023 without improvement. She has failed to respond to outpatient treatment(prednisone and first two remicade doses). CT on admission shows no significant change in 3 segments of TI showing acute on chronic ileitis with luminal narrowing. Plan is for ileocolonic resection with Dr. Iverson today. ?? Plan -Cares per CRS -Due for next Vitamin B12 IM in 6 days -IV solumedrol 8mg/day (equivelant to 10mg prednisone per day)- taper per CRS -Tentative plan: cancel upcoming dose of Remicade, follow up appointment at [facility] in April as scheduled, colonoscopy in 5-6 months -Avoid NSAIDS -No further GI recommendations at this time. We will sign off. Please call with any concerns or questions/reconsult as needed. Discussed with Dr. Saulo Lennon, [facility] Office: [phone] * Jassi Nolasco MD - 03/21/2023 9:38 AM CDT [facility] Hospitalist Progress Note Assessment & Plan ASSESSMENT 63F with hx of RCC s/p nephrectomy w/ CKD Stage III and Crohn's disease on Remicade with recent hospitalization discharged on steroid taper re-presents with ongoing abdominal pain and diarrhea and found to have ongoing evidence of ileitis on CT scan with luminal narrowing. CRS and GI following, surgical options are being considered. Colorectal Surgery have plans for surgery today. PLAN Crohn's Ileitis, Acute on Chronic -Presents with ongoing abdominal pain 2/2 ileitis that continues after recent adm under similar circumstances where she received IV steroids -Abdominal pain and diarrhea continue despite steroid taper and Remicade on outpatient basis -On adm, ongoing evidence of ileitis on CT scan with luminal narrowing -CRS and GI following, surgical options are being considered PLAN -Methylprednisolone 8mg IV q24 (equiv to pt's home pred taper per GI recs) -NS@75ml/hr -NPO for surgery -CRS and GI following, appreciate recommendations Lactic Acidosis -Suspect 2/2 hypovolemia, no evidence of sepsis RCC s/p nephrectomy w/ CKD Stage III -Cr currently at baseline -Avoid nephrotoxins DVT Prophy -SCDs Disposition -Inpatient for another 2-3 more days depending on clinical progression after surgery Karan Hines MD Subjective Seen at bedside. Still mild ongoing pain. CRS have plans for surgery this afternoon. Objective Blood pressure 118/74, pulse 79, temperature 98.1 ??F (36.7 ??C), temperature source Oral, resp. rate 20, height 1.6 m (5' 3), weight 70.2 kg (154 lb 12.8 oz), SpO2 98 %. PHYSICAL EXAM General: In no acute distress CV: RRR. Lungs: CTAB. Nl WOB. Abd: Mild tenderness in BL lower quadrants. Ext: No edema. LABS AND IMAGING Reviewed and pertinent results discussed in assessment and plan. * Madison Iverson MD - 03/21/2023 8:32 AM CDT Colon & Rectal Surgery Progress Note Interval History: HD#2 Tolerated prep with numerous lose stools, no bleeding, continued abdominal pain. Stoma site marked yesterday Medications: I have reviewed this patient's current medications Physical Exam: Blood pressure 118/74, pulse 79, temperature 98.1 ??F (36.7 ??C), temperature source Oral, resp. rate 20, height 1.6 m (5' 3), weight 70.2 kg (154 lb 12.8 oz), SpO2 98 %. Intake/Output Summary (Last 24 hours) at 03/21/2023 0832 Last data filed at 03/21/2023 0053 Gross per 24 hour Intake 2453.33 ml Output -- Net 2453.33 ml GEN: alert ABD: Soft, round mild tenderness without rebound or guarding Data: Lab Results Component Value Date NA 140 03/20/2023 Lab Results Component Value Date CHLORIDE 105 03/20/2023 Lab Results Component Value Date BUN 9.7 03/20/2023 Lab Results Component Value Date POTASSIUM 4.2 03/20/2023 Lab Results Component Value Date CO2 27 03/20/2023 Lab Results Component Value Date CR 1.04 03/20/2023 CR 1.14 03/19/2023 Lab Results Component Value Date HGB 11.5 (L) 03/20/2023 HGB 12.7 03/19/2023 Lab Results Component Value Date PLT 242 03/20/2023 PLT 294 03/19/2023 Lab Results Component Value Date WBC 7.4 03/20/2023 WBC 9.8 03/19/2023 Assessment and Plan: Plan for surgery this after noon. Questions answered. Hibiclens shower today. NPO Madison Iverson MD [facility] Office * Jassi Nolasco MD - 03/20/2023 9:57 AM CDT [facility] Hospitalist Progress Note Assessment & Plan ASSESSMENT 63F with hx of RCC s/p nephrectomy w/ CKD Stage III and Crohn's disease on Remicade with recent hospitalization discharged on steroid taper re-presents with ongoing abdominal pain and diarrhea and found to have ongoing evidence of ileitis on CT scan with luminal narrowing. CRS and GI following, surgical options are being considered. PLAN Crohn's Ileitis, Acute on Chronic -Presents with ongoing abdominal pain 2/2 ileitis that continues after recent adm under similar circumstances where she received IV steroids -Abdominal pain and diarrhea continue despite steroid taper and Remicade on outpatient basis -On adm, ongoing evidence of ileitis on CT scan with luminal narrowing -CRS and GI following, surgical options are being considered PLAN -Methylprednisolone 20mg IV q8 -NS@100ml/hr -CLD -CRS and GI following, appreciate recommendations Lactic Acidosis -Suspect 2/2 hypovolemia, no evidence of sepsis RCC s/p nephrectomy w/ CKD Stage III -Cr currently at baseline -Avoid nephrotoxins DVT Prophy -SCDs Disposition -Inpatient for another 2-3 more days depending on surgical plans Karan Hines MD Subjective Seen at bedside along with CRS PA. Considering surgical options and patient seems like she would beagreeable to this. Objective Blood pressure 123/70, pulse 75, temperature 98.6 ??F (37 ??C), temperature source Oral, resp. rate20, height 1.6 m (5' 3), weight 70.2 kg (154 lb 12.8 oz), SpO2 97 %. PHYSICAL EXAM General: In no acute distress CV: RRR. Lungs: CTAB. Nl WOB. Abd: Mild tenderness in BL lower quadrants. Ext: No edema. LABS AND IMAGING Reviewed and pertinent results discussed in assessment and plan. documented in this encounter H&P Notes * Carolin Harris PA-C - 03/19/2023 11:35 PM CDT [facility] Admission History and Physical Examination NAME: Hortensia Buitrago : 1960 Date of Admission: 03/19/2023 Assessment & Plan Hortensia Buitrago is a 63 year old female with a PMH significant for Crohn's disease, asthma, migraines and renal cell cancer that was managed surgically with right nephrectomy in 2008 who presented toemergency room with complaints of ongoing abdominal pain [facility]. She was seen by GI and CRS and the plan for was her to see how she responds to steroid taper and continued Remicaid. However since discharge home, she has persistent abd pain, in fact she saw Dr. Iverson last Friday and felt that given her persistent pain and minimal response to steroids and Remicaid, she will likely need to undergo surgery for ileal stricture. #Acute on chronic ileitis with luminal narrowing without obvious bowel obstruction or abscess Unfortunately patient has had persistent pain and limited response to steroid taper (currently on 10 mg QW) and Remicade. She comes in with worsening lower abdominal pain along with nausea and vomiting. Seen by Dr. Iverson last Friday as well as discussion with GI recommending proceeding with likely surgery. -Admit as inpatient status -Continue IV fluid hydration -Clear liquid diet for now -Pain control as needed -GI as well as colorectal surgery consult -Continue MANAGER OF RADIOLOGY oral steroids for now #Lactic acidosis -Resolved after IV fluids, likely related to hypovolemia #Chronic kidney disease #Renal cell ca s/p nephrectomy -Creatinine stable -Continue follow labs - Avoid nephrotoxins #Asthma: no acute exacerbation Awaiting formal pharmacy reconciliation to resume home medications. DVT Prophylaxis: Low Risk/Ambulatory with no VTE prophylaxis indicated Code Status: Full Code Expected Discharge Date: 03/21/2023 Carolin Harris PA-C Primary Care Physician Physician No Ref-Primary Chief Complaint Abd pain History is obtained from the patient Discussed with Dr. Villarreal in the ED, full chart review including lab work, imaging, and vital signs were reviewed. History of Present Illness Hortensia Buitrago is a 63 year old female with a PMH significant for Crohn's disease, asthma, migraines and renal cell cancer that was managed surgically with right nephrectomy in 2008 who presented toemergency room with complaints of ongoing abdominal pain [facility]. She was seen by GI and CRS and the plan for was her to see how she responds to steroids and continued Remicaid. However since discharge home,she has persistent abd pain, in fact she saw Dr. Iverson last Friday and felt that given her persistent pain and minimal response to steroids and Remicaid, she will likely need to undergo surgery for ileal stricture. Past Medical History I have reviewed this patient's medical history and updated it with pertinent information if needed. No past medical history on file. Past Surgical History I have reviewed this patient's surgical history and updated it with pertinent information if needed. No past surgical history on file. Prior to Admission Medications Prior to Admission [...] 2 times daily as needed for constipation esomeprazole (NEXIUM) [address] capsule Yes [...] ondansetron (ZOFRAN ODT) 4 MG ODT tab Yes No Sig: Take 4-8 mg by mouth every 8 hours as needed for nausea ondansetron (ZOFRAN ODT) 4 MG ODT tab No No Sig: Take 1 tablet (4 mg) by mouth every 8 hours as needed for nausea polyethylene glycol (MIRALAX) 17 GM/Dose powder No No Sig: Take 17 g by mouth daily predniSONE (DELTASONE) 5 MG tablet No No Sig: Take 3 tablets (15 mg) by mouth daily for 7 days, THEN 2 tablets (10 mg) daily for 7 days, THEN 1 tablet (5 mg) daily for 7 days. sennosides (SENOKOT) 8.6 MG tablet No No Sig: Take 1-2 tablets by mouth 2 times daily as needed for constipation traZODone (DESYREL) 100 MG tablet Yes No Sig: Take 200 mg by mouth At Bedtime Facility-Administered Medications: None Allergies Allergies Allergen Reactions Latex Hives Oxycodone Anaphylaxis, Hives and Swelling Throat swelling, per pt Penicillin G Anaphylaxis Sumatriptan Palpitations Aspirin Nausea and Vomiting Demerol Hcl [Meperidine] Nausea and Vomiting N/V Percocet [Oxycodone-Acetaminophen] Nausea and Vomiting N/V Codeine Nausea and Vomiting Mold Social History I have reviewed this patient's social history and updated it with pertinent information if needed. Hortensia Buitrago Family History I have reviewed this patient's family history and updated it with pertinent information if needed. No family history on file. Review of Systems The 10 point Review of Systems is negative other than noted in the HPI or here. Physical Exam Temp: 97.7 ??F (36.5 ??C) Temp src: Oral BP: 128/79 Pulse: 83 Resp: 18 SpO2: 100 % O2 Device: None (Room air) Vital Signs with Ranges Temp: [97.7 ??F (36.5 ??C)-98.2 ??F (36.8 ??C)] 97.7 ??F (36.5 ??C) Pulse: [74-98] 83 Resp: [18] 18 BP: (123-140)/(79-97) 128/79 SpO2: [100 %] 100 % 0 lbs 0 oz Constitutional: Awake, alert, no apparent distress. Eyes: Conjunctiva and pupils examined and normal. HEENT: Moist mucous membranes, normal dentition. Respiratory: Clear to auscultation bilaterally, no crackles or wheezing. Cardiovascular: Regular rate and rhythm, normal S1 and S2, and no murmur noted. GI: Soft, non-distended, mild tenderness to palpation, bowel sounds present. No rebound tenderness or guarding. Lymph/Hematologic: No anterior cervical or supraclavicular adenopathy. Skin: No rashes, no cyanosis, no edema. Musculoskeletal: No deformities noted. No erythema or tenderness. Moving all extremities. Neurologic: No focal deficits noted. Speech is clear. Coordination and strength grossly normal. Psychiatric: Appropriate affect. Data Data reviewed today: Imaging: Recent Results (from the past 24 hour(s)) CT Abdomen Pelvis w Contrast Narrative EXAM: CT ABDOMEN PELVIS W CONTRAST LOCATION: [facility] DATE: 03/19/2023 INDICATION: Abdominal pain. Crohn's disease. COMPARISON: 02/20/2023 TECHNIQUE: CT scan of the abdomen and pelvis was performed following injection of IV contrast. Multiplanar reformats were obtained. Dose reduction techniques were used. CONTRAST: 71mL Isovue 370 FINDINGS: LOWER CHEST: Unremarkable. HEPATOBILIARY: Liver appears normal. Status post cholecystectomy. No biliary dilatation. PANCREAS: Normal. SPLEEN: Unchanged 0.6 cm low-attenuation lesion in the spleen, too small to characterize. ADRENAL GLANDS: Normal. KIDNEYS/BLADDER: Status post right nephrectomy. Left kidney appears normal. No hydronephrosis. Urinary bladder appears normal. BOWEL: No significant change in 3 segments of terminal ileum demonstrating wall thickening and mucosal hyperenhancement with associated luminal narrowing. The mid to distal sigmoid colon is decompressed, which obscures the previously described segments of luminal narrowing. No definite inflammatory change involving the colon. No bowel obstruction. Noabscess. Appendix not visualized, although no secondary signs of acute appendicitis. LYMPH NODES: No lymphadenopathy. VASCULATURE: Moderate atherosclerotic calcifications. PELVIC ORGANS: Status post hysterectomy. MUSCULOSKELETAL: Multilevel degenerative changes of the spine. Impression IMPRESSION: 1. No significant change in 3 segments of terminal ileum demonstrating acute on chronic ileitis with luminal narrowing. No bowel obstruction. No abscess. Recent Labs Lab 03/19/23 1530 WBC 9.8 HGB 12.7 MCV 91 PLT 294 NA 138 POTASSIUM 4.7 CHLORIDE 101 CO2 26 BUN 10.0 CR 1.14* ANIONGAP 11 DAJA 9.4 GLC 102* ALBUMIN 4.3 PROTTOTAL 6.5 BILITOTAL 0.5 ALKPHOS 66 ALT 17 AST 18 Carolin Harris PA-C [facility] Medicine March 19, 2023 Securely message with the [employer] Console (learn more here) Text page via [facility] Paging/Directory Associated attestation - Kai Su DO - 03/29/2023 2:19 PM CDT Physician Attestation I have reviewed and discussed with the advanced practice provider their history, physical and plan for Hortensia Buitrago. I did not participate in a shared visit by interviewing or examining the patient and this should be billed as an advanced practice provider only visit. Kai Su, Date of Service (when I saw the patient): I did not personally see this patient today. documented in this encounter Consult Notes * Laine Clemens RN - 03/23/2023 11:06 AM CDTAssociated Order(s): CARE MANAGEMENT / SOCIAL WORK IP CONSULT Care Management Initial Consult General Information Assessment completed with: Patient, Type of CM/SW Visit: Initial Assessment Primary Care Provider verified and updated as needed: Readmission within the last 30 days: Reason for Consult: discharge planning Communication Assessment Patient's communication style: spoken language (Guatemalan or Bilingual) Cognitive Cognitive/Neuro/Behavioral: WDL Living Environment: People in home: Spouse Current living Arrangements: House Able to return to prior arrangements: Yes Family/Social Support: Care provided by: Self Provides care for: Marital Status: Description of Support System: Supportive, Involved Support Assessment: Adequate family and caregiver support Current Resources: Patient receiving home care services: No Community Resources: Equipment currently used at home: none Supplies currently used at home: Does the patient's insurance plan have a 3 day qualifying hospital stay waiver? No Lifestyle & Psychosocial Needs: Social Determinants of Health Tobacco Use: Not on file Alcohol Use: Not on file Financial Resource Strain: Not on file Food Insecurity: Not on file Transportation Needs: Not on file Physical Activity: Not on file Stress: Not on file Social Connections: Not on file Intimate Partner Violence: Not on file Depression: Not on file Housing Stability: Not on file Functional Status: Prior to admission patient needed assistance: Dependent ADLs:: Independent Dependent IADLs:: Independent Assesssment of Functional Status: At functional baseline Care Management Discharge Note Discharge Date: 03/24/2023 Discharge Disposition: Home Discharge Services: Discharge DME: Raised Toilet Seat Discharge Transportation: family or friend will provide Private pay costs discussed: Not applicable Does the patient's insurance plan have a 3 day qualifying hospital stay waiver? No Patient/Family in Agreement with the Plan: yes Handoff Referral Completed: No Additional Information: CM consulted for elevated URR. Pt admitted with Crohns Ileitis, S/P ileocolic resection. PT evaluated pt and determined pt is safe to discharge home. Met with pt at bedside. Pt lives with supportive spouse and is not anticipating any discharge needs other than the possible need for an elevated toilet seat which she will either borrow or purchase. Spouse will provide transportation home. Please call if any needs arise. Laine Clemens RN Inpatient Care Coordination [facility] * Odalys Valladares RN - 03/20/2023 1:16 PM CDTAssociated Order(s): WOUND OSTOMY CONTINENCE NURSE IP CONSULT [facility] WOC Nurse Ostomy Marking and Education Data: History: 63F with hx of RCC s/p nephrectomy w/ CKD Stage III and Crohn's disease on Remicade with recent hospitalization discharged on steroid taper re-presents with ongoing abdominal pain and diarrhea and found to have ongoing evidence of ileitis on CT scan with luminal narrowing. CRS and GI following, surgical options are being considered. ??? Pt referred by Dr. Iverson ??? Who is present for marking and education: Patient ??? Type of ostomy surgery: Ileostomy ??? Abdomen: Crease to right side near umbilicus. Previous kidney removal with flat scar. Intervention: ?? Patient's chart evaluated. ?? Assessments done today: Belt line, previous abdominal surgeries and scars, and abdominal muscles. Pt observed lying, sitting and standing. ?? Education: Reviewed upcoming surgery, stoma construction, post-op expectations, and general ostomy cares/concerns. ?? All patient / family questions answered. ?? Patient marked with x using surgical marker then allowed to dry 3 minutes and sealed with 3M Cavilon No Sting barrier film. Pt marked RUQ Assessment: ?? Abdomen marked on the RUQ ?? Learning needs/ comprehension: Patient familiar with intestinal anatomy. Reviewed stoma creation, pouching, WOC role, and post op expectations. Plan: ?? Plan: ? Surgery scheduled for: 03/21 ?? Will plan to follow patient post operatively Odalys Valladares RN CWOCN Contact [facility] Nurse ([facility]) Dept. Office Number: [phone] * Roberta Ramirez PA-C - 03/20/2023 11:52 AM CDTAssociated Order(s): COLORECTAL SURGERY IP CONSULT [facility] Colon and Rectal Surgery Consult Note Name: Hortensia Buitrago Date of : 1960 Age: [age] year old Date of admission: 03/19/2023 Primary care provider: Jeana Ref-Primary, Physician Requesting Physician: Carolin Harris PA-C Reason for consult: Crohn's ileitis with stricture History of Present Illness: Hortensia Buitrago is a 63 year old female with a history of renal cell carcinoma s/p right nephrectomy in 2008, CKD, Crohn's disease (on Remicade), seen at the request of Carolin Harris PA-C, presents with abdominal pain. Patient was recently hospitalized from 02/11 - 02/23 for Crohn's ileitis with a small bowel obstruction and stricture. She was started on IV steroids and had a Remicade infusion while inpatient. Patientwas subsequently discharged on an oral steroid taper. Since discharging from the hospital, she reports having ongoing intermittent abdominal pain. She had another infusion of Remicade on 03/04 and is currently on an oral steroid taper (10mg). She unfortunately had worsening abdominal pain and then developed some nausea with 3 episodes of emesis. She presented to the ER given her worsening symptoms. In the ER, patient was afebrile with normal vital signs. Labs were remarkable for creatinine 1.14, albumin 4.3, WBC 9.8, hgb 12.7. A CT scan of the abdomen/pelvis revealed persistent wall thickeningand luminal narrowing in 3 segments of the terminal ileum suggestive of acute on chronic ileitis. Patient was admitted for further management. She is comfortably resting in bed. She reports ongoing abdominal pain that has slightly improved since being admitted. She has some nausea, but has not had any further emesis. She has had continued daily loose bowel movements. Her last bowel movement was this morning without any blood. She had 4 loose stools yesterday and 8 loose stools the day prior. Of note, patient was seen in clinic with Dr. Iverson on 03/07/23 and a laparoscopic ileocolic resection was discussed. At that time, patient wished to think about surgery. In further discussion today, patient is now open to surgical resection. Colonoscopy History: 01/28/23: Inflammation with ulceration and stenosis at the terminal ileum. Pathrevealed mild active chronic ileitis at the terminal ileum. Surgical History: Right nephrectomy, appendectomy, cholecystectomy Past Medical History: No past medical history on file. Past Surgical History: No past surgical history on file. Social History: Social History Tobacco Use ??? Smoking status: Not on file ??? Smokeless tobacco: Not on file Substance Use Topics ??? Alcohol use: Not on file Family History: No family history on file. Allergies: Allergies Allergen Reactions ??? Latex Hives ??? Oxycodone Anaphylaxis, Hives and Swelling Throat swelling, per pt ??? Penicillin G Anaphylaxis ??? Sumatriptan Palpitations ??? Aspirin Nausea and Vomiting ??? Demerol Hcl [Meperidine] Nausea and Vomiting N/V ??? Percocet [Oxycodone-Acetaminophen] Nausea and Vomiting N/V ??? Codeine Nausea and Vomiting ??? Mold Medications: ??? acetaminophen 650 mg Oral At Bedtime ??? esomeprazole 40 mg Oral BID AC ??? methylPREDNISolone 20 mg Intravenous Q8H ??? montelukast 10 mg Oral At Bedtime ??? nortriptyline 25 mg Oral At Bedtime ??? polyethylene glycol 17 g Oral Daily ??? polyethylene glycol 238 g Oral Once ??? senna-docusate 1 tablet Oral BID Or ??? senna-docusate 2 tablet Oral BID ??? traZODone 200 mg Oral At Bedtime Review of Systems: A comprehensive greater than 10 system review of systems was carried out. Pertinent positives and negatives are noted above. Otherwise negative for contributory info. Physical Exam: Blood pressure 123/70, pulse 75, temperature 98.6 ??F (37 ??C), temperature source Oral, resp. rate20, height 1.6 m (5' 3), weight 70.2 kg (154 lb 12.8 oz), SpO2 97 %. No intake or output data in the 24 hours ending 03/20/23 1151 EXAM: GEN: Awake alert and oriented, appears stated age PULM: Non-labored breathing with normal respiratory effort CVS: reg rate and rhythm, no peripheral edema ABD: Soft, lower abdominal tenderness greater on the right, non- distended. No rebound or guarding RECTAL: Rectal exam was deferred NEURO: CN II-XII grossly intact MSK: extremeties with no clubbing, cyanosis or edema; able to ambulate PSYCH: responsive, alert, cooperative; oriented x3; appropriate mood and affect EXT/SKIN: inspection reveals no rashes, lesions or ulcers, normal coloring Data Reviewed: Results for orders placed or performed during the hospital encounter of 03/19/23 CT Abdomen Pelvis w Contrast Narrative EXAM: CT ABDOMEN PELVIS W CONTRAST LOCATION: [facility] DATE: 03/19/2023 INDICATION: Abdominal pain. Crohn's disease. COMPARISON: 02/20/2023 TECHNIQUE: CT scan of the abdomen and pelvis was performed following injection of IV contrast. Multiplanar reformats were obtained. Dose reduction techniques were used. CONTRAST: 71mL Isovue 370 FINDINGS: LOWER CHEST: Unremarkable. HEPATOBILIARY: Liver appears normal. Status post cholecystectomy. No biliary dilatation. PANCREAS: Normal. SPLEEN: Unchanged 0.6 cm low-attenuation lesion in the spleen, too small to characterize. ADRENAL GLANDS: Normal. KIDNEYS/BLADDER: Status post right nephrectomy. Left kidney appears normal. No hydronephrosis. Urinary bladder appears normal. BOWEL: No significant change in 3 segments of terminal ileum demonstrating wall thickening and mucosal hyperenhancement with associated luminal narrowing. The mid to distal sigmoid colon is decompressed, which obscures the previously described segments of luminal narrowing. No definite inflammatory change involving the colon. No bowel obstruction. Noabscess. Appendix not visualized, although no secondary signs of acute appendicitis. LYMPH NODES: No lymphadenopathy. VASCULATURE: Moderate atherosclerotic calcifications. PELVIC ORGANS: Status post hysterectomy. MUSCULOSKELETAL: Multilevel degenerative changes of the spine. Impression IMPRESSION: 1. No significant change in 3 segments of terminal ileum demonstrating acute on chronic ileitis with luminal narrowing. No bowel obstruction. No abscess. Recent Labs Lab 03/20/23 0806 03/19/23 1530 WBC 7.4 9.8 HGB 11.5* 12.7 HCT 37.3 41.4 MCV 92 91 PLT 242 294 Recent Labs Lab 03/20/23 0806 03/19/23 1530 NA 140 138 POTASSIUM 4.2 4.7 CHLORIDE 105 101 CO2 27 26 ANIONGAP 8 11 GLC 87 102* BUN 9.7 10.0 CR 1.04* 1.14* GFRESTIMATED 60* 53* DAJA 8.5* 9.4 PROTTOTAL -- 6.5 ALBUMIN -- 4.3 BILITOTAL -- 0.5 ALKPHOS -- 66 AST -- 18 ALT -- 17 No results for input(s): INR in the last 168 hours. Recent Labs Lab 03/19/23 2130 03/19/23 1909 LACT 1.0 2.1* Recent Labs Lab 03/19/23 1816 COLOR Straw APPEARANCE Clear URINEGLC Negative URINEBILI Negative URINEKETONE Negative SG 1.005 UBLD Negative URINEPH 5.5 PROTEIN Negative NITRITE Negative LEUKEST Negative RBCU <1 WBCU 0 Assessment and Plan: Hortensia Buitrago is a 63 year old female with a history of renal cell carcinoma s/p right nephrectomy in 2008, CKD, Crohn's disease (on Remicade), seen at the request of Carolin Harris PA-C, who was recently hospitalized from 02/11 - 02/23 for Crohn's ileitis with a small bowel obstruction. She was started on IV steroids and had a Remicade infusion while inpatient. Patient was discharged on an oral steroid taper. Since discharging from the hospital, she reports having ongoing intermittent abdominalpain despite being on Remicade and on an oral steroid taper. A CT scan of the abdomen pelvis revealed persistent wall thickening and luminal narrowing in 3 segments of the terminal ileum suggestive of acute on chronic ileitis. Abdominal exam was soft with some lower abdominal tenderness that was greater on the right. She is currently hemodynamically stable. No emergent surgery is indicated. Discussed that as she has had persistent symptoms despite Remicade and oral steroids, would recommend surgery this admission. This would likely include a laparoscopic ileocolic resection with a possible stoma. Patient understood and is open to surgery. Surgery is tentatively scheduled for tomorrow afternoon with Dr. Iverson. Will try a slow Miralax bowel prep today. She should be NPO at midnight. WOCN consult for marking of a possible stoma. Plan: 1. Admit to hospitalist 2. Surgery: No emergent surgery indicated. Laparoscopic ileocolic resection with possible stoma tentatively scheduled for tomorrow afternoon with Dr. Iverson 3. Diet: Clear liquids. NPO at midnight. 4. IV Fluids: Per hospitalist 5. Antibiotics: Not indicated at this time. 6. Medications: Continue home meds per hospitalist 7. I&O? s: strict I&O? s 8. Labs: - Reviewed - Ordered: None 9. Imaging: - Dr. Iverson and myself have personally viewed: CT abd/pelvis - Ordered: None 10. Activity: ambulate as tolerated, encourage OOB 11. DVT prophylaxis: SCD???s 12. This plan has been discussed with Dr. Iverson Patient specific identified risk factors considered as part of today???s evaluation include: Crohn's disease, on steroids, previous abdominal surgeries including a right nephrectomy Additional history obtained from chart and patient. Time spent on consultation: 55 minutes, greaterthan 50 percent of the total encounter time is spent in counseling and/or coordination of care Roberta Ramirez PA-C [facility] Associated attestation - Madison Iverson MD - 03/20/2023 4:31 PM CDT Physician Attestation I saw and evaluated Hortensia Buitrago as part of a shared HOUSE SHORER/PA visit. I personally reviewed the vital signs, medications, labs, and imaging. I personally performed the substantive portion of the history for this visit - please see the NATHALIA'sdocumentation for full details. Vogel additional history findings made by me: Hawa is a 63-year-old woman who had a right nephrectomy in 2008 for renal cell carcinoma. She has some mild renal insufficiency, Remicade who was hospitalized in mid February for ileitis. During that admission she was treated with IV steroids and started on Remicade. She had tapered down to 10 mg yesterday. She has worsening abdominal pain with diarrhea that may have had some blood in it, and vomiting. This prompted her to come into the ER where she was found to have a creatinine of 1.1, albumin of 4, hemoglobin of near 13, and a CT scan with persistent wall thickening and luminal narrowing withmultifocal distal small bowel disease coming up to the terminal ileum. At this point she is relatively comfortable on IV steroids. She has no further nausea today. She did tolerate a Gatorade and MiraLAX bowel prep since admission. She is having loose stools without bleeding. Prior surgery includes a right nephrectomy, appendectomy, open cholecystectomy, and a vaginal hysterectomy. I personally performed the substantive portion of the physical exam - please see the NATHALIA's documentation for full details. She is awake alert and oriented. Abdomen is soft with mild right lower quadrant and suprapubic tenderness. No rebound or guarding. I personally performed the substantive portion of the medical decision making for this visit - please see the NATHALIA's documentation for full details. Vogel management decisions made by me and carried out under my direction: Hawa is a 63-year-old woman with Remicade who has had 2 doses of Remicade and continues to have significant abdominal pain, intermittent nausea and vomiting as well as diarrhea. I saw her at her last admission as well as in the office and she is mentally ready to proceed with surgery. We discussedplan for laparoscopic assisted likely open ileocolic resection with possible stoma. We reviewed therisks of bleeding, infection, damage surrounding structures, fistula, hernias, and other risks associated with major abdominal surgery and general anesthesia including but not limited to DVT, PE, heart attack, stroke, other cardiopulmonary events, and even . Patient agreed and wished to proceed with surgery tomorrow. She should be n.p.o. after midnight, wound ostomy care nurse marking, continue IV steroids at maintenance dose. Madison Iverson MD, MD Date of Service (when I saw the patient): 03/20/23 * Candy Lennon, SUN LEGUILLON DEBEADER - 03/20/2023 7:54 AM CDTAssociated Order(s): GASTROENTEROLOGY IP CONSULT Images from the original note were not included. GASTROENTEROLOGY CONSULTATION Hortensia Buitrago [address] [place] [id number] 63 year old female Admission Date/Time: 03/19/2023 Primary Care Provider: No Ref-Primary, Physician We were asked to see the patient in consultation by Dr. Harris for evaluation of persistent Crohn's ileitis. HPI: Hortensia Buitrago is a 63 year old female with PMH including Crohn's disease, asthma, migraines and renal cell cancer that was managed surgically with right nephrectomy in 2008??who presented to emergency room with complaints of ongoing abdominal pain decreased stool output since her discharge from [facility] about 3 weeks ago for Crohn's flare. She developed acute GI symptoms of abdominal pain, nausea/vomiting and diarrhea in November of this year while on vacation. EGD 12/13/2022: endoscopically normal. Gastric biopsy showed chronic gastritis, H pylori neg. Esophageal and duodenal biopsies normal. Colonoscopy 01/28/2023: narrowing, ulcerations, scarring in TI. Biopsies showed nonspecific mildly active chronic ileitis without specific features. Random right and left colon biopsies normal. 4mm Cecal with SSA. This was in the setting of NSAID use. She failed outpatient treatment with PO prednisone. At last admission (02/10- 02/23/23) she was startedon Remicade 5mg/kg on 02/18/23 and has received the first two induction doses. Next dose is scheduled April 01. She was transitioned to PO prednisone with taper and discharged to home. She states shehas continued to have severe RLQ pain. The only time she had any relief of the pain was when she was on IV steroids. This past Friday she had increase in her usual bowel movement frequency (baseline3) to 8 diarrheal stools with associated vomiting, prompting her to come in. She is nauseated without vomiting since admission. Zofran is helping. She feels miserable and frustrated with ongoing symptoms. No NSAID use since her colonoscopy. Per H&P, she saw Dr. Iverson last Friday and felt that given her persistent pain and minimal response to steroids and Remicaid, she will likely need to undergo surgery for ileal stricture. This is tentatively planned tomorrow. Labs: WBC normal 9.8, Hgb 12.7, CMP shows elevated creatinine at 1.14 with otherwise unremarkable CMP. Lactic acid initially elevated at 2.1, 1.[address] Abdomen 03/19/23: No significant change in 3 segments of terminal ileum demonstrating acute on chronic ileitis with luminal narrowing. No bowel obstruction. No abscess. She has vitamin B12 deficiency (218) and was started on Vitamin B12 injections two weeks ago (weekly for 1 month, monthly thereafter). IBD profile normal 03/04/2023. ROS: A comprehensive ten point review of systems was negative aside from those in mentioned in the HPI. MEDICATIONS: No current facility-administered medications on file prior to encounter. acetaminophen (TYLENOL) 650 MG CR tablet, Take 650 mg by mouth At Bedtime albuterol (PROAIR HFA/PROVENTIL HFA/VENTOLIN HFA) 108 (90 Base) MCG/ACT inhaler, Inhale 2 puffs into the lungs every 6 hours as needed for shortness of breath, wheezing or cough bisacodyl (DULCOLAX) 10 MG suppository, Place 1 suppository (10 mg) rectally 2 times daily as needed for constipation esomeprazole (NEXIUM) [address] capsule, Take 40 mg by mouth 2 times daily (before meals) Take 30-60minutes before eating. famotidine (PEPCID) 40 MG tablet, Take 40 mg by mouth At Bedtime methocarbamol (ROBAXIN) 500 MG tablet, Take 1 tablet (500 mg) by mouth 4 times daily as needed for muscle spasms montelukast (SINGULAIR) 10 MG tablet, Take 10 mg by mouth At Bedtime nortriptyline (PAMELOR) 25 MG capsule, Take 25 mg by mouth At Bedtime ondansetron (ZOFRAN ODT) 4 MG ODT tab, Take 1 tablet (4 mg) by mouth every 8 hours as needed for nausea ondansetron (ZOFRAN ODT) 4 MG ODT tab, Take 4-8 mg by mouth every 8 hours as needed for nausea polyethylene glycol (MIRALAX) 17 GM/Dose powder, Take 17 g by mouth daily predniSONE (DELTASONE) 5 MG tablet, Take 3 tablets (15 mg) by mouth daily for 7 days, THEN 2 tablets (10 mg) daily for 7 days, THEN 1 tablet (5 mg) daily for 7 days. sennosides (SENOKOT) 8.6 MG tablet, Take 1-2 tablets by mouth 2 times daily as needed for constipation traZODone (DESYREL) 100 MG tablet, Take 200 mg by mouth At Bedtime ALLERGIES: Allergies Allergen Reactions ??? Latex Hives ??? Oxycodone Anaphylaxis, Hives and Swelling Throat swelling, per pt ??? Penicillin G Anaphylaxis ??? Sumatriptan Palpitations ??? Aspirin Nausea and Vomiting ??? Demerol Hcl [Meperidine] Nausea and Vomiting N/V ??? Percocet [Oxycodone-Acetaminophen] Nausea and Vomiting N/V ??? Codeine Nausea and Vomiting ??? Mold No past medical history on file. No past surgical history on file. SOCIAL HISTORY: FAMILY HISTORY: No family history on file. PHYSICAL EXAM: BP 129/78 (BP Location: Left arm) Pulse 79 Temp 97.6 ??F (36.4 ??C) (Oral) Resp 20 SpO2 98% Constitutional: healthy, alert, no acute distress Cardiovascular: regular rate and rhythm, no murmur or edema Respiratory: clear to auscultation bilaterally Psychiatric: normal pleasant affect ENT: mucous membranes are moist, no oral lesions are noted, no scleral icterus Abdomen: soft, severe RLQ tenderness with rebound, non-distended, normally active bowel sounds Neuro: Neurologically intact grossly Skin: warm, dry, no rashes are noted LABORATORY WORK Recent Labs Lab Test 03/19/23 1530 02/22/23 0649 02/21/23 0643 WBC 9.8 13.5* 12.1* HGB 12.7 12.5 12.5 MCV 91 88 88 PLT 294 244 238 Recent Labs Lab Test 03/19/23 1530 02/23/23 0648 02/22/23 0649 NA 138 137 140 POTASSIUM 4.7 4.0 4.0 4.8 CHLORIDE 101 101 102 CO2 26 23 30* BUN 10.0 20.0 20.2 CR 1.14* 1.11* 1.10* ANIONGAP 11 13 8 DAJA 9.4 8.9 9.2 Recent Labs Lab Test 03/19/23 1816 03/19/23 1530 02/17/23 0721 02/11/23 0700 ALBUMIN -- 4.3 3.1* 3.6 BILITOTAL -- 0.5 0.4 0.2 DBIL -- <0.20 -- -- ALT -- 17 15 8* AST -- 18 10 13 ALKPHOS -- 66 57 68 PROTEIN Negative -- -- -- IMAGING EXAM: CT ABDOMEN PELVIS W CONTRAST LOCATION: [facility] DATE: 03/19/2023 ?? INDICATION: Abdominal pain. Crohn's disease. COMPARISON: 02/20/2023 TECHNIQUE: CT scan of the abdomen and pelvis was performed following injection of IV contrast. Multiplanar reformats were obtained. Dose reduction techniques were used. CONTRAST: 71mL Isovue 370 ?? FINDINGS: LOWER CHEST: Unremarkable. ?? HEPATOBILIARY: Liver appears normal. Status post cholecystectomy. No biliary dilatation. ?? PANCREAS: Normal. ?? SPLEEN: Unchanged 0.6 cm low-attenuation lesion in the spleen, too small to characterize. ?? ADRENAL GLANDS: Normal. ?? KIDNEYS/BLADDER: Status post right nephrectomy. Left kidney appears normal. No hydronephrosis. Urinary bladder appears normal. ?? BOWEL: No significant change in 3 segments of terminal ileum demonstrating wall thickening and mucosal hyperenhancement with associated luminal narrowing. The mid to distal sigmoid colon is decompressed, which obscures the previously described segments of luminal narrowing. No definite inflammatory change involving the colon. No bowel obstruction. Noabscess. Appendix not visualized, although no secondary signs of acute appendicitis. ?? LYMPH NODES: No lymphadenopathy. ?? VASCULATURE: Moderate atherosclerotic calcifications. ?? PELVIC ORGANS: Status post hysterectomy. ?? MUSCULOSKELETAL: Multilevel degenerative changes of the spine. ?? IMPRESSION: 1. No significant change in 3 segments of terminal ileum demonstrating acute on chronic ileitis with luminal narrowing. No bowel obstruction. No abscess. CONSULTATION ASSESSMENT AND PLAN 63 year old female with PMH including asthma, migraines and renal cell cancer that was managed surgically with right nephrectomy in 2008??who presented to emergency room with complaints of ongoing abdominal pain decreased stool output since her discharge from [facility] about 3 weeks ago for suspected Crohn's ileitis. Colonoscopy in January showed TI ulcerating and stricture. Biopsies showed chronic ileitiswith nonspecific features, nondiagnostic in setting of previous chronic Aleve use. No NSAID use since January. Continued symptoms of severe abdominal pain, nausea, occasional vomiting and loose stools since November. Treated for presumed Crohn's ileitis with steroids and initiation of Remicade 02/18/2023 without improvement. She has failed to respond to outpatient treatment. CT on admission shows no significant change in 3 segments of TI showing acute on chronic ileitis with luminal narrowing. She has severe RLQ tenderness on exam. Plan -NPO/diet per surgery -Vitamin B12 today; repeat in 7 days, monthly thereafter -IV solumedrol 8mg/day (equivelant to 10mg prednisone per day) -Colorectal surgery has been consulted and is planning tentative resection tomorrow -IBD clinic follow up after surgery to review path/determine maintenance plan/next colonoscopy timing -Avoid all NSAIDS I will discuss the patient plan with Dr. Vernon. Thank you for asking us to participate in the care of this patient. Total time: 50 minutes [facility]andy Lennon [facility] Office: [phone] Associated attestation - Ananda Vernon MD - 03/20/2023 4:38 PM CDT GI/Hepatology Staff addendum This patient was discussed in detail with NPPA, seen and examined by myself, please see my findingsas outlined below. She was admitted at the beginning of February with ileal inflammation and a partial bowel obstruction. Concern was for Crohn's disease, however she was also taking 3 to 4 tablets of Aleve per day. She was treated with steroids and Remicade and discharged. She got a second dose of Remicade as an outpatient. Despite this, she continues to have severe abdominal pain, and does not feel that her symptoms have been getting better. If anything, over the past week she feels they have been getting worse, which caused her to present to the emergency room. Physical Exam: General Appearance: alert, oriented x3, no acute distress. BP 123/70 (BP Location: Left arm) Pulse 75 Temp 98.6 ??F (37 ??C) (Oral) Resp 20 Ht 1.6 m (5' 3) Wt 70.2 kg (154 lb 12.8 oz) SpO2 97% BMI 27.42 kg/m?? : Eye: sclera anicteric. GI: Soft, NABS, moderate diffuse tenderness without rebound. COMMENTS: Reviewed the patient's pertinent lab and imaging results. Assessment and Plan: 63 year old female with ileum inflammation. This may represent Crohn's disease, however it also may be secondary to her Aleve. She did undergo an IBD panel which was totally normal, which does make Crohn's disease less likely. I did discuss her case with Dr. Iverson. She has not responded to steroids and 2 doses of Remicade, and I do agree with surgery as scheduled for tomorrow. If there is no definitive evidence of Crohn's disease on pathology, I would not recommend continuing the Remicade. Total time spent on patient care activities 32 minutes Ananda Vernon MD documented in this encounter ED Notes * Brina Harmon RN - 03/19/2023 9:28 PM CDT [facility] ED Nurse Handoff Report ED Chief complaint: Abdominal Pain . ED Diagnosis: Final diagnoses: Crohn's disease of colon with complication (H) Intractable abdominal pain Allergies: Allergies Allergen Reactions ??? Latex Hives ??? Oxycodone Anaphylaxis, Hives and Swelling Throat swelling, per pt ??? Penicillin G Anaphylaxis ??? Sumatriptan Palpitations ??? Aspirin Nausea and Vomiting ??? Demerol Hcl [Meperidine] Nausea and Vomiting N/V ??? Percocet [Oxycodone-Acetaminophen] Nausea and Vomiting N/V ??? Codeine Nausea and Vomiting ??? Mold Code Status: Full Code Activity level - Baseline/Home: independent. Activity Level - Current: standby. Lift room needed: No. Bariatric: No Check Clerk Needed: No Isolation: No. Infection: Not Applicable. Respiratory status: Room air Vital Signs (within 30 minutes): Vitals: 03/19/23 1517 03/19/23 1944 BP: (!) 123/97 (!) 140/82 Pulse: 98 74 Resp: 18 Temp: 98.2 ??F (36.8 ??C) TempSrc: Oral SpO2: 100% Cardiac Rhythm: , Pain level: Patient confused: No. Patient Falls Risk: patient and family education. Elimination Status: Has voided Patient Report - Initial Complaint: Abdominal pain. Focused Assessment: Pt arrives for Chrons flair up x2 bloody stools yesterdat, emesis x3 yesterday. 4 diarrhea episodes today without blood. Abd cramping and pain, back pain, nausea. ABCs intact A&Ox4 Abnormal Results: Labs Ordered and Resulted from Time of ED Arrival to Time of ED Departure CBC WITH PLATELETS - Abnormal Result Value WBC Count 9.8 RBC Count 4.56 Hemoglobin 12.7 Hematocrit 41.4 MCV 91 MCH 27.9 MCHC 30.7 (*) RDW 16.5 (*) Platelet Count 294 BASIC METABOLIC PANEL - Abnormal Sodium 138 Potassium 4.7 Chloride 101 Carbon Dioxide (CO2) 26 Anion Gap 11 Urea Nitrogen 10.0 Creatinine 1.14 (*) Calcium 9.4 Glucose 102 (*) GFR Estimate 53 (*) LACTIC ACID WHOLE BLOOD - Abnormal Lactic Acid 2.1 (*) ROUTINE UA WITH MICROSCOPIC REFLEX TO CULTURE - Abnormal Color Urine Straw Appearance Urine Clear Glucose Urine Negative Bilirubin Urine Negative Ketones Urine Negative Specific [place] Urine 1.005 Blood Urine Negative pH Urine 5.5 Protein Albumin Urine Negative Urobilinogen Urine Normal Nitrite Urine Negative Leukocyte Esterase Urine Negative Mucus Urine Present (*) RBC Urine <1 WBC Urine 0 HEPATIC FUNCTION PANEL - Normal Protein Total 6.5 Albumin 4.3 Bilirubin Total 0.5 Alkaline Phosphatase 66 AST 18 ALT 17 Bilirubin Direct <0.20 LACTIC ACID WHOLE BLOOD LACTIC ACID WHOLE BLOOD CT Abdomen Pelvis w Contrast Final Result IMPRESSION: 1. No significant change in 3 segments of terminal ileum demonstrating acute on chronic ileitis with luminal narrowing. No bowel obstruction. No abscess. Treatments provided: See MAR Family Comments: family at bedside OBS brochure/video discussed/provided to patient: No ED Medications: Medications ondansetron (ZOFRAN) injection 4 mg (4 mg Intravenous $Given 03/19/231905) HYDROmorphone (PF) (DILAUDID) injection 0.5 mg (0.5 mg Intravenous Not Given 03/19/231956) HYDROmorphone (DILAUDID) injection 1 mg (has no administration in time range) ondansetron (ZOFRAN ODT) ODT tab 4 mg (4 mg Oral $Given 03/19/23 152) 0.9% sodium chloride BOLUS (0 mLs Intravenous Stopped 03/19/232125) iopamidol (ISOVUE-370) solution 500 mL (71 mLs Intravenous $Given 03/19/232030) CT scan flush (58 mLs Intravenous $Given 03/19/232030) Drips infusing: No For the majority of the shift this patient was Green. Interventions performed were NA. Sepsis treatment initiated: No Cares/treatment/interventions/medications to be completed following ED care: NA ED Nurse Name: Karina Alvarado RN 9:28 PM RECEIVING UNIT ED HANDOFF REVIEW Above ED Nurse Handoff Report was reviewed: Yes Reviewed by: Brina Harmon RN on March 20, 2023 at 8:56 AM * Alicia Dockery RN - 03/19/2023 7:36 PM CDT Bed: ED18 Expected date: 03/19/23 Expected time: 7:24 PM Means of arrival: Comments: Endo rm 46 * Angella Negro RN - 03/19/2023 3:12 PM CDT Pt arrives for Chrons flair up x2 bloody stools yesterdat, emesis x3 yesterday. 4 diarrhea episodes today without blood. Abd cramping and pain, back pain, nausea. ABCs intact A&Ox4 * Mona Villarreal MD - 03/19/2023 3:05 PM CDT History Chief Complaint: Abdominal Pain The history is provided by the patient. Hortensia Buitrago is a 63 year old female who has a history of Crohn's and presents with lower abdominal pain. Patient states that she has had diarrhea and has had 8 episodes. States that she has noticed blood in a few of them. Also notices that she well get the sweats and then the next minute have the chills. She also recently started throwing up. She takes prednisone and then infusions of remicade. Last time she was in the hospital was February 10. Independent Historian: None - Patient Only Review of External Notes: None Medications: Albuterol Bisacodyl Esomeprazole Famotidine Methocarbamol Montelukast Nortriptyline Ondansetron Polyethylene glycol Prednisone Sennosides Trazodone Past Medical History: Kidney cancer Graves disease Allergic rhinitis Kidney cancer Physical Exam Patient Vitals for the past 24 hrs: BP Temp Temp src Pulse Resp SpO2 03/19/23 1944 (!) 140/82 -- -- 74 -- -- 03/19/23 1517 (!) 123/97 98.2 ??F (36.8 ??C) Oral 98 18 100 % Physical Exam Constitutional: Appearance: She is well-developed. HENT: Right Ear: External ear normal. Left Ear: External ear normal. Mouth/Throat: Mouth: Mucous membranes are moist. Pharynx: Oropharynx is clear. No oropharyngeal exudate or posterior oropharyngeal erythema. Eyes: General: No scleral icterus. Conjunctiva/sclera: Conjunctivae normal. Pupils: Pupils are equal, round, and reactive to light. Cardiovascular: Rate and Rhythm: Regular rhythm. Tachycardia present. Heart sounds: Normal heart sounds. No murmur heard. No friction rub. No gallop. Pulmonary: Effort: Pulmonary effort is normal. No respiratory distress. Breath sounds: Normal breath sounds. No wheezing or rales. Abdominal: General: Bowel sounds are normal. There is no distension. Palpations: Abdomen is soft. There is no mass. Tenderness: There is abdominal tenderness. There is guarding. There is no right CVA tenderness or left CVA tenderness. Comments: Diffuse abd TTP Musculoskeletal: General: Normal range of motion. Cervical back: Normal range of motion and neck supple. Skin: General: Skin is warm and dry. Capillary Refill: Capillary refill takes less than 2 seconds. Findings: No rash. Neurological: Mental Status: She is alert. Emergency Department Course Imaging: CT Abdomen Pelvis w Contrast Final Result IMPRESSION: 1. No significant change in 3 segments of terminal ileum demonstrating acute on chronic ileitis with luminal narrowing. No bowel obstruction. No abscess. Report per radiology Laboratory: Labs Ordered and Resulted from Time of ED Arrival to Time of ED Departure CBC WITH PLATELETS - Abnormal Result Value WBC Count 9.8 RBC Count 4.56 Hemoglobin 12.7 Hematocrit 41.4 MCV 91 MCH 27.9 MCHC 30.7 (*) RDW 16.5 (*) Platelet Count 294 BASIC METABOLIC PANEL - Abnormal Sodium 138 Potassium 4.7 Chloride 101 Carbon Dioxide (CO2) 26 Anion Gap 11 Urea Nitrogen 10.0 Creatinine 1.14 (*) Calcium 9.4 Glucose 102 (*) GFR Estimate 53 (*) LACTIC ACID WHOLE BLOOD - Abnormal Lactic Acid 2.1 (*) ROUTINE UA WITH MICROSCOPIC REFLEX TO CULTURE - Abnormal Color Urine Straw Appearance Urine Clear Glucose Urine Negative Bilirubin Urine Negative Ketones Urine Negative Specific [place] Urine 1.005 Blood Urine Negative pH Urine 5.5 Protein Albumin Urine Negative Urobilinogen Urine Normal Nitrite Urine Negative Leukocyte Esterase Urine Negative Mucus Urine Present (*) RBC Urine <1 WBC Urine 0 HEPATIC FUNCTION PANEL - Normal Protein Total 6.5 Albumin 4.3 Bilirubin Total 0.5 Alkaline Phosphatase 66 AST 18 ALT 17 Bilirubin Direct <0.20 Emergency Department Course & Assessments: Interventions: Medications ondansetron (ZOFRAN) injection 4 mg (4 mg Intravenous $Given 03/19/231905) HYDROmorphone (PF) (DILAUDID) injection 0.5 mg (0.5 mg Intravenous Not Given 03/19/231956) ondansetron (ZOFRAN ODT) ODT tab 4 mg (4 mg Oral $Given 03/19/231524) 0.9% sodium chloride BOLUS (1,000 mLs Intravenous $New Bag 03/19/231906) iopamidol (ISOVUE-370) solution 500 mL (71 mLs Intravenous $Given 03/19/232030) CT scan flush (58 mLs Intravenous $Given 03/19/232030) Assessments: 1801 I obtained history and examined the patient as noted above. Independent Interpretation (X-rays, CTs, rhythm strip): None Consultations/Discussion of Management or Tests: Hospitalist APC Harris, admitting for Social Determinants of Health affecting care: None Disposition: The patient was admitted to the hospital under the care of Dr. Su. Impression & Plan [facility] Diagnoses: None Medical Decision Making: Patient presents today for evaluation of severe abdominal pain. She had a long hospital stay in February for Crohn's flare. She is having recurrent pain with vomiting and nausea. She has not had surgery yet. Her evaluation showed mildly elevated lactic likely due to dehydration. CT was performed which did not show any acute complication. She is having severe pain still and requires pain control with IV narcotics. She also requires GI and colorectal surgery evaluation at this point. She is agreeablewith the plan. She will continue to receive IV fluids and pain medication. She is admitted to Dr. Su. Diagnosis: ICD-10-CM 1. Crohn's disease of colon with complication (H) K50.119 2. Intractable abdominal pain R10.9 Scribe Disclosure: IDoroteo, am serving as a scribe at 6:10 PM on 03/19/2023 to document services personally performed by Mona Villarreal MD based on my observations and the provider's statements to me. 03/19/2023 Mona Villarreal MD Cheng, Wenlan, MD 03/19/23 2130 documented in this encounter Miscellaneous Notes * Pharmacy - Discharge Medication Reconciliation and Education - Blaine Hinson [facility] - 03/26/2023 11:53 AM CDT Discharge medication review for this patient is complete. [id number] medication education was provided by the pharmacist. See [facility] for allergy information, immunization status, and discharge medication list. Pharmacist assisted with medication reconciliation of discharge medications. Patient was informed to START taking the following NEW medications (and reason why, if known): Lovenox subcutaneous for 28 days. Patient was educated on the following for each new or changed medication listed above: Rationale for therapy Duration of treatment Common side effects Importance of compliance Missed doses Self monitoring parameters Left written materials and instructions (Clinical notes from [facility]) for new medications: Yes OUTCOMES: Patient verbalized understanding * Plan of Care - Stephanie Chawla RN - 03/26/2023 6:10 AM CDT A&Ox4, Ind. LS clear, denied SOB, N/V. Midline abdominal incision-dermabond BASILIA, no drainage, healing well.Moderate abdominal pain overnight described as cramping-PO dilaudid, ice & binder with relief. VSS. Continent B&B. No peripheral IV. Major Shift Events: Uneventful night, slept well. No significant change in condition. Treatment Plan: Pt hopes to discharge to home today. Tolerating low fiber diet. Pain management- PO dilaudid, monitor HgB-patient received 1unit on 03/23 for HgB 7.9. * Plan of Care - Candy Michel RN - 03/25/2023 10:37 PM CDT To Do: End of Shift Summary For vital signs and complete assessments, please see documentation flowsheets. Pertinent assessments: A&Ox4, Ind. LS clear, denied SOB, N/V. Abd incision BASILIA, no drainage, healing well. Pain at abd 6/10, give P.O dilaudid. VSS. Continent B&B. No peripheral IV. Major Shift Events: none Treatment Plan: may discharge tomorrow depending on hemoglobin level. Bedside Nurse: Candy Michel RN * Plan of Care - Mayela Fung RN - 03/25/2023 2:59 PM CDT Goal Outcome Evaluation: Pertinent assessments: A&O, VSS, up ind in room and halls. Ate fair, did not want the protein supplements. HGB trending down, 9.2-8.6. No IV access, ok'd per hospitalist. Major Shift Events: Cont to have tarry dark stools. C/o abd pain, received Tylenol and Dilaudid, effective at pain management. Treatment Plan: CBC in AM, will determine discharge. * Plan of Care - Ingrid Jeter RN - 03/25/2023 6:07 AM CDT Goal Outcome Evaluation: Pertinent assessments: Pt A&Ox4, VSS, on RA. SBA to BR. PIV infusing LR at 75mL /hr, infiltrated. Admitting paged and OK to leave PIV out overnight since pt is such a hard stick and she is drinking water. To be addressed in morning, may need vascular access. Midline incision, lap sites CDI, some bruising. Scheduled tylenol for abd pain. Slept well. Major Shift Events: none Treatment Plan: Cont to advance diet, pain management. Steroid taper. Bedside Nurse: Ingrid Jeter RN * Plan of Care - Chris Mcmahan RD - 03/25/2023 1:18 AM CDT Goal Outcome Evaluation: Plan of Care Reviewed With: patient Overall Patient Progress: no changeOverall Patient Progress: no change Outcome Evaluation: Pt has been eating <75% estimated energy needs for 6 days. Ordered chocolateEnsure Enlive BID b/n meals and multivitamin w/ cosign. * Plan of Care - Liberty Louis RN - 03/24/2023 11:42 PM CDT Goal Outcome Evaluation: Plan of Care Reviewed With: patient Overall Patient Progress: improvingOverall Patient Progress: improving Pertinent assessments: A&Ox4, VSS. SBA to BR. 4x liquid BM this shift. Dark black, no visible clots. PIV infusing LR at 75mL /hr, infiltrated. Admitting paged and OK to leave PIV out overnight since pt is such a hard stick and she is drinking water. To be addressed in morning, may need vascularaccess. Abd pain throughout shift, PRN dilaudid and robaxin given with some relief. Low fiber diet tolerated. Midline incision, lap sites CDI, some bruising. Hgb recheck 9.2. Major Shift Events: loss of PIV Treatment Plan: Cont to advance diet, pain management. Steroid taper, monitor hgb. Bedside Nurse: LIBERTY LOUIS, IFRAH * Plan of Care - Mayela Fung RN - 03/24/2023 2:22 PM CDT Goal Outcome Evaluation: Pertinent assessments: A&O, VSS afebrile. C/o abdominal pain throughout shift, 5-7 pain rating.Using IS intermittenly. Ate fair. Major Shift Events: Up SBA around unit, pain controlled with scheduled Tylenol and PRN Dilaudid. Treatment Plan: Cont to advance diet, pain management. Steroid taper. * Plan of Care - Carmella Conway RN - 03/24/2023 6:39 AM CDT Pertinent assessments: Pt Aox4, VSS on room air. Ambulates SBA. C/o abdominal pain. Dilaudid PO andtylenol given with relief. Ice applied intermittently. Lap sites and midline incision open to air, CDI with brusing. Denies feeling dizzy, nausea, SOB. LR infusing at 75mL/hr. Encourage oral fluids, activity as tolerated. No BM this shift. No gas yet. Voiding in the bathroom. Major Shift Events: Pain management. Slept. Treatment Plan: Pain management. IV Hydrocortisone. Diet advancement. Encourage mobility. Return ofbowel function. Monitor Hgb. * Plan of Care - Liberty Louis RN - 03/23/2023 11:36 PM CDT Goal Outcome Evaluation: Plan of Care Reviewed With: patient Overall Patient Progress: no changeOverall Patient Progress: no change Pertinent assessments: Assumed cares [id number]. Pt A&Ox4, VSS, c/o abdominal pain, PRN dilaudidand robaxin given with some relief. Ice applied intermittently. Lap sites and midline incision opento air, CDI with brusing. Denies feeling dizzy, nausea, SOB. New PIV placed by saul RG in R forearm. IVF LR running at 75mL/hr. Encouraged oral fluids, activity as tolerated. No BM this shift. Major Shift Events: new PIV Treatment Plan: Pain management. IV Hydrocortisone. Diet advancement. Encourage mobility. Return ofbowel function. Bedside Nurse: LIBERTY LOUIS RN * Plan of Care - Brayden Baxter RN - 03/23/2023 5:37 AM CDT End of Shift Summary For vital signs and complete assessments, please see documentation flowsheets. Pertinent assessments: A/Ox4, VSS, c/o abdominal pain 03/17. PRN Dilaudid given x1 Lap sites and midline incision open to air, Denies N/V. Major Shift Events: None Treatment Plan: Pain management. IV Hydrocortisone. Diet advancement. Encourage mobility. Return ofbowel function. Bedside Nurse: Brayden Baxter RN * Plan of Care - Edelmira Gibson RN - 03/22/2023 6:50 AM CDT Goal Outcome Evaluation: Plan of Care Reviewed With: patient To Do: End of Shift Summary For vital signs and complete assessments, please see documentation flowsheets. Pertinent assessments: Pt A/O. VSS. Capno, O2 4L NC, Dilaudid 5x given for abdo pain.Zofran for intermittent nausea. BS hypo. Midline incision and lap sited w/ liquid bandage, BASILIA. Salazar patent Major Shift Events Transferred from PACU Treatment Plan: symptom management, solu-Cortef, await bowel return and diet advancement. Bedside Nurse: Edelmira Gibson RN * Brief Op Note - Issa Bruno MD - 03/21/2023 6:52 PM CDT [facility] Brief Operative Note Pre-operative diagnosis: Crohn's disease of colon with complication (H) [K50.119] Post-operative diagnosis Same as pre-operative diagnosis Procedure: Procedure(s): Laparoscopic ileocolic resection Surgeon: Surgeon(s) and Role: * Madison Iverson MD - Primary * Roberta Ramirez PA-C - Assisting Anesthesia: General Estimated Blood Loss: Less than 50 ml Drains: none Specimens: ID Type Source Tests Collected by Time Destination 1 : TERMINAL ILEUM AND CECUM Resection Small Intestine, Terminal Ileum SURGICAL PATHOLOGY EXAM Madison Iverson MD 03/21/2023 5:39 PM Findings: ~50cm of diseased terminal ileum resected and stapled side to side ileocolic anastomosis created. . Complications: None. Implants: * No implants in log * Condition on discharge from OR: Satisfactory Issa Bruno MD [facility] [phone]. ADDENDUM: PATIENT DATA Indicate Y or N: Home O2 No Hemodialysis No Transplant patient No Cirrhosis No Steroids in last 30 days Yes Immunomodulators in last 30 days Yes Anticoagulation at time of surgery No List medication n/a Prior abdominal surgery Yes Pelvic irradiation No Albumin within 30 days if known 4.3 Hgb within 30 days if known 11.5 Hemoglobin Date Value Ref Range Status 03/20/2023 11.5 (L) 11.7 - 15.7 g/dL Final ] Cr within 30 days if known 1.04 Creatinine Date Value Ref Range Status 03/20/2023 1.04 (H) 0.51 - 0.95 mg/dL Final ] Body mass index is 27.42 kg/m??. OR DATA Emergent No <24 hours No <1 week Yes Bowel Prep Yes Antibiotics No DVT prophylaxis Heparin No SCD Yes None No Drain No ASA (1,2,3,4) 3 OR time (min) 143 Stents No Transfuse >/= 2U No Anastomosis Stapled Yes Handsewn No Leak Test Positive No Negative No Not done No * Op Note - Madison Iverson MD - 03/21/2023 3:45 PM CDT OPERATIVE NOTE PERIOPERATIVE DIAGNOSIS: Medically refractory Crohn's with bowel obstruction POSTOPERATIVE DIAGNOSIS: Same PROCEDURE: Laparoscopic assisted ileocolic resection SURGEON: Madison Iverson MD Terminal Gauger: Roberta Ramirez PA-C and Dr. Bruno, [facility] colorectal surgery fellow ANESTHESIA: Tap block and general anesthesia INDICATIONS FOR PROCEDURE: Hawa is a 63-year-old woman has recently been diagnosed with Crohn's. She was admitted earlier in February after failing outpatient steroids and started on IV steroids and subsequently given Remicade. She was discharged and had her second dose of Remicade. She comes back to the hospital several days ago with increased abdominal pain, nausea, and vomiting. Imaging shows long segment of terminal ileum inflammation without abscess or fistula. We discussed the possibility ofcontinued management medical management versus proceeding with surgery. Reviewed the risks of bleeding, infection, alteration of bowel function, stoma, and other risks associated with major abdominalsurgery and general anesthesia including but not limited to DVT, PE, heart attack, stroke, hernias,fistula, demonstrating structures, other infectious complications, and even . She is at increased risk of having had prior right nephrectomy, open cholecystectomy, and hysterectomy as well and on going immunosuppression on steroids (10 mg of prednisone), and Remicade. She understood and she very much wished to proceed with surgery as she has been feeling miserable since her diagnosis. FINDINGS: -Approximately 40 cm of inflamed terminal ileum was removed and primary anastomosis was created. The colon and small bowel margin appeared grossly normal on the specimen. DESCRIPTION OF PROCEDURE: After informed consent was obtained patient was taken the operating positioned in the supine position. She was intubated. Salazar catheter and orogastric tube were placed. Shewas positioned in modified lithotomy position with her arm padded and tucked at her side. After appropriate timeout we began laparoscopically by making a 1 cm incision above the umbilicus. Dissectionwas carried to the fascia and the peritoneal cavity was entered without. Small port was inserted. Inspection revealed adhesions consistent with a open cholecystectomy. The visualized portion of the small bowel showed thickening and creeping fat on the distal small bowel. A tap block was done injecting 7.5 cc of quarter percent Marcaine into 3-4 quadrants, of the right upper quadrant could not be seen at that time. Two 5 mm ports were placed in the left lateral abdomen. The patient was to from the right side abdomen and the cecum was identified. The lateral attachments were incised to enter around the hepatic flexure. This was somewhat tedious as she had a right nephrectomy colon as well as the mesentery was adherent into the retroperitoneum. Able to release the anterior attachments of the. And obesity duration for surgery. We turned our attention to the small bowel and could see that this was thickened but not adherent to the sigmoid colon or any other areas. Once we had done as this bleeding could laterally we elected to open. Port was removed and we also endoscopically 3 cm above and below the umbilicus incorporating the Chaves incision. 5 mm ports were removed. A large Kaleb was placed. We were able to bring out the right colon and complete the dissection carefully identifying the duodenum and fully mobilizing the hepatic flexure. We then palpated the small bowel and found soft compliant small bowel roughly 40 cm from the ileocecal valve. A window was made through the mesentery here and the LigaSure was used to divide the mesentery somewhat close to the bowel although where the mesentery was more soft and compliant. Numerous fires were made with each bite and careful inspection for hemostasis was confirmed. Wemade a window in the right colon mesentery as well and joined our small bowel dissection. The treatment inspected for hemostasis which was excellent. We then lined up a [id number] functional end-to-end anastomosis. Colotomy and enterotomy were made and soft complete bowel. The common channel was created using a LISA 75 blue load. Inspection within the anastomosis revealed healthy bowel and hemostatic anastomosis. We then used the TA 90 to close the common enterotomy after offsetting the staplelines with the specimen was then divided and passed off the field. We opened the specimen revealingmargins with grossly normal bowel for several centimeters. We then irrigated the abdomen with several liters of warm saline. Was irrigated with several liters of warm saline and reinspected in the retroperitoneum which was nicely hemostatic. We inspected the cut edge of the mesentery which was nicely hemostatic as well. The small bowel and no additional lesions were noted. We then removed the Kaleb and switch to clean gowns and gloves as well as a clean closure tray. The fascia was reapproximated using 0 PDS. Skin edges reapproximated 4-0 Monocryl and the extraction site as well as the 2 port sites. Dermabond was placed. Sponge, instrument, and needle counts were correct at the end of the case. COMPLICATIONS: No immediate complications SPECIMENS: Terminal ileum and right colon Estimated blood loss 50 cc Madison Iverson MD * Plan of Care - Edelmira Gibson RN - 03/21/2023 6:38 AM CDT Goal Outcome Evaluation: Plan of Care Reviewed With: patient To Do: End of Shift Summary For vital signs and complete assessments, please see documentation flowsheets. Pertinent assessments: Pt A/Ox4. VSS. Dilaudid given for abdo pain. Zofran for intermittent nausea.Up ind Major Shift Events: none Treatment Plan: symptom management for surgery today. Bedside Nurse: Edelmira Gibson RN * Plan of Care - Brina Harmon RN - 03/20/2023 6:21 PM CDT End of Shift Summary For vital signs and complete assessments, please see documentation flowsheets. Pertinent assessments: A&Ox4. VSS. Zofran x1. Tylenol x1 for abdominal pain. Abdomen tender. BShypoactive. Stoma marking done by WOC. CLD, npo at midnight. Up ind. Major Shift Events: bowel prep finished, good results Treatment Plan: Surgery 03/21 with CRS. * Pharmacy-Admission Medication History - Jassi Lynch RPH - 03/20/2023 9:47 AM CDT Pharmacist Admission Medication History Admission medication history is complete. The information provided in this note is only as accurateas the sources available at the time of the update. Medication reconciliation/reorder completed by provider prior to medication history? No Information Source(s): Patient via in-person Pertinent Information: Patient brought in her esomeprazole because she knows we don't have it and she will want it insteadof omeprazole. Changes made to MANAGER OF RADIOLOGY medication list: ??? Added: None ??? Deleted: None ??? Changed: None Medication Affordability: Not including over the counter (OTC) medications, was there a time in the past 3 months when you did not take your medications as prescribed because of cost?: No Allergies reviewed with patient and updates made in EHR: yes Medication History Completed By: Jassi Lynch RPH 03/20/2023 9:47 AM Prior to Admission medications Medication Sig Last Dose Taking? Auth Provider [facility] End Date acetaminophen (TYLENOL) 650 MG CR tablet Take 650 mg by mouth At Bedtime 03/20/2023 at 0020 Yes Unknown, Entered By History albuterol (PROAIR HFA/PROVENTIL HFA/VENTOLIN HFA) 108 (90 Base) MCG/ACT inhaler Inhale 2 puffs intothe lungs every 6 hours as needed for shortness of breath, wheezing or cough Past Week at prn Yes Unknown, Entered By History Yes bisacodyl (DULCOLAX) [address] 1 suppository (10 mg) rectally 2 times daily as neededfor constipation Past Month Yes Eva Hammond DO esomeprazole (NEXIUM) [address] capsule Take 40 mg by mouth 2 times daily (before meals) Take 30-60 minutes before eating. 03/19/2023 at AM Yes Unknown, Entered By History famotidine (PEPCID) 40 MG tablet Take 40 mg by mouth At Bedtime 03/18/2023 at PM Yes Unknown, Entered By History methocarbamol (ROBAXIN) 500 MG tablet Take 1 tablet (500 mg) by mouth 4 times daily as needed for muscle spasms 03/18/2023 at prn Yes Eva Hammond DO montelukast (SINGULAIR) 10 MG tablet Take 10 mg by mouth At Bedtime 03/20/2023 at 0053 Yes Unknown, Entered By History Yes nortriptyline (PAMELOR) 25 MG capsule Take 25 mg by mouth At Bedtime 03/20/2023 at 0053 Yes Unknown,Entered By History Yes ondansetron (ZOFRAN ODT) 4 MG ODT tab Take 1 tablet (4 mg) by mouth every 8 hours as needed for nausea 03/19/2023 at 1525 Yes Eva Hammond DO polyethylene glycol (MIRALAX) 17 GM/Dose powder Take 17 g by mouth daily 03/20/2023 at 0800 Yes Eva Hammond DO predniSONE (DELTASONE) 5 MG tablet Take 3 tablets (15 mg) by mouth daily for 7 days, THEN 2 tablets(10 mg) daily for 7 days, THEN 1 tablet (5 mg) daily for 7 days. 03/19/2023 Yes Eva Hammond DO No 04/03/23 sennosides (SENOKOT) 8.6 MG tablet Take 1-2 tablets by mouth 2 times daily as needed for constipation at prn Yes Eva Hammond, traZODone (DESYREL) 100 MG tablet Take 200 mg by mouth At Bedtime 03/20/2023 at 0020 Yes Unknown, Entered By History Yes * Plan of Care - Jesus Negrete RN - 03/20/2023 6:55 AM CDT Pt is alert and oriented x4. Pt was given Dilaudid for abdominal pain. Pt is on IVF NS @100ml/hr. Pt is on clear liquid diet. Pt is SBA in transfer and cares. VSS. Plan: GI and Colorectal consult. Noacute distress noted during the shift. Pt is sleeping in bed and call light within reach. Will continue to monitor and assess pt. 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 [facility] [id number] [facility] [address] [place] [address] Alisa Norman PA-C [facility] [address] [place] [address] [place] J[place]HI [id number] documented as of this encounter Procedures Procedure Name Priority Date/Time Associated Diagnosis Comments CBC WITH PLATELETS AND DIFFERENTIAL Routine 03/26/2023 6:59 AM CDT EXTRA GREEN TOP TUBE (LAB USE ONLY) Routine 03/26/2023 6:59 AM CDT CBC WITH PLATELETS & DIFFERENTIAL Routine 03/26/2023 6:59 AM CDT BASIC METABOLIC PANEL Routine 03/25/2023 6:38 AM CDT CBC WITH PLATELETS Routine 03/25/2023 6: 38 AM CDT HEMOGLOBIN Routine 03/24/2023 9:04 PM CDT CBC WITH PLATELETS AND DIFFERENTIAL Routine 03/24/2023 6:58 AM CDT CBC WITH PLATELETS & DIFFERENTIAL Routine 03/24/2023 6:58 AM CDT BASIC METABOLIC PANEL Routine 03/24/2023 6:58 AM CDT HEMOGLOBIN Timed 03/23/2023 10:11 PM CDT HEMOGLOBIN Timed 03/23/2023 5:23 PM CDT TRANSFUSE RED BLOOD CELLS (UNIT) Routine 03/23/2023 12:22 PM CDT PREPARE RED BLOOD CELLS (UNIT) Routine 03/23/2023 11:32 AM CDT CBC WITH PLATELETS AND DIFFERENTIAL Routine 03/23/2023 6:07 AM CDT CBC WITH PLATELETS & DIFFERENTIAL Routine 03/23/2023 6:07 AM CDT BASIC METABOLIC PANEL Routine 03/23/2023 6:07 AM CDT HEMOGLOBIN Routine 03/22/2023 4:11 PM CDT BASIC METABOLIC PANEL Routine 03/22/2023 6:38 AM CDT CBC WITH PLATELETS Routine 03/22/2023 6: 38 AM CDT CREATININE Routine 03/21/2023 9:28 PM CDT SURGICAL PATHOLOGY EXAM Routine 03/21/2023 5:39 PM CDT EXCISION, CECUM WITH ILEUM, LAPAROSCOPIC 03/21/2023 2:53 PM CDT Crohn's disease of colon with complication (H) Special Needs Multiple allergies GLUCOSE BY METER Routine 03/21/2023 1:38 PM CDT TYPE AND SCREEN, ADULT Routine 03/20/2023 12:12 PM CDT PREALBUMIN Routine 03/20/2023 12:12 PM CDT ABO/RH TYPE AND SCREEN Routine 03/20/2023 12:12 PM CDT BASIC METABOLIC PANEL STAT 03/20/2023 8:06 AM CDT CBC WITH PLATELETS STAT 03/20/2023 8: 06 AM CDT LACTIC ACID WHOLE BLOOD STAT 03/19/2023 9:[address] ABDOMEN PELVIS W CONTRAST STAT 03/19/2023 8:56 PM CDT LACTIC ACID WHOLE BLOOD STAT 03/19/2023 7:09 PM CDT ROUTINE UA WITH MICROSCOPIC REFLEX TO CULTURE STAT 03/19/2023 6:16 PM CDT EXTRA TUBE STAT 03/19/2023 3:30 PM CDT EXTRA RED TOP TUBE STAT 03/19/2023 3: 30 PM CDT EXTRA BLUE TOP TUBE STAT 03/19/2023 3 :30 PM CDT HEPATIC FUNCTION PANEL STAT 03/19/2023 3:30 PM CDT BASIC METABOLIC PANEL STAT 03/19/2023 3:30 PM CDT CBC WITH PLATELETS STAT 03/19/2023 3: 30 PM CDT documented in this encounter Results * (ABNORMAL) CBC with platelets and differential (03/26/2023 6:59 AM CDT) [facility] WBC Count 7.2 4.0 - 11.0 10e3/uL 03/26/2023 7:12 AM CDT [facility] RBC Count 2.81(L) 3.80 - 5.20 10e6/uL 03/26/2023 7:12 AM CDT [facility] Hemoglobin 8.2(L) 11.7 - 15.7 g/dL 03/26/2023 7:12 AM CDT [facility] Hematocrit 25.7(L) 35.0 - 47.0 % 03/26/2023 7:12 AM CDT [facility] MCV 92 78 - 100 fL 03/26/2023 7:12 AM CDT [facility] MCH 29.2 26.5 - 33.0 pg 03/26/2023 7:12 AM CDT [facility] MCHC 31.9 31.5 - 36.5 g/dL 03/26/2023 7:12 AM CDT [facility] RDW 15.9(H) 10.0 - 15.0 % 03/26/2023 7:12 AM CDT [facility] Platelet Count 220 150 - 450 10e3/uL 03/26/2023 7:12 AM CDT [facility] % Neutrophils 57 % 03/26/2023 7:12 AM CDT [facility] % Lymphocytes 33 % 03/26/2023 7:12 AM CDT [facility] % Monocytes 7 % 03/26/2023 7:12 AM CDT [facility] % Eosinophils 2 % 03/26/2023 7:12 AM CDT [facility] % Basophils 0 % 03/26/2023 7:12 AM CDT [facility] % Immature Granulocytes 1 % 03/26/2023 7:12 AM CDT [facility] NRBCs per 100 WBC 0 <1 /100 023 7:12 AM CDT [facility] Absolute Neutrophils 4.1 1.6 - 8.3 10e3/uL 03/26/2023 7:12 AM CDT [facility] Absolute Lymphocytes 2.4 0.8 - 5.3 10e3/uL 03/26/2023 7:12 AM CDT [facility] Absolute Monocytes 0.5 0.0 - 1.3 10e3/uL 03/26/2023 7:12 AM CDT [facility] Absolute Eosinophils 0.1 0.0 - 0.7 10e3/uL 03/26/2023 7:12 AM CDT [facility] Absolute Basophils 0.0 0.0 - 0.2 10e3/uL 03/26/2023 7:12 AM CDT [facility] Absolute Immature Granulocytes 0.1 <=0.4 10e3/uL 03/26/2023 7:12 AM CDT [facility] Absolute NRBCs 0.0 10e3/uL 03/26/2023 7:12 AM CDT [facility] Blood STRUCTURE OF RIGHT HAND / Unknown Venipuncture / Unknown 03/26/2023 6:59 AM CDT 03/26/2023 7:07 AM CDT Homar Colón MD LAB - BLOOD ORDERABL ES [facility] [address] Lab (1st floor, no room number) [place] [phone], [facility] [phone] * Extra Green Top Tube (LAB USE ONLY) (03/26/2023 6:59 AM CDT) Hold Specimen JIC 03/26/2023 8:16 AM CDT [facility] Blood STRUCTURE OF RIGHT HAND / Unknown Venipuncture / Unknown 03/26/2023 6:59 AM CDT 03/26/2023 7:07 AM CDT Mona Villarreal MD LAB - BLOOD ORDERABL ES [facility] [address] Lab (1st floor, no room number) [place] [phone], [facility] [phone] * (ABNORMAL) Basic metabolic panel (03/25/2023 6:38 AM CDT) Sodium 143 136 - 145 mmol/L 03/25/2023 7:15 AM CDT [facility] Potassium 3.9 3.4 - 5.3 mmol/L 03/25/2023 7:15 AM CDT [facility] Chloride 107 98 - 107 mmol/L 03/25/2023 7:15 AM CDT [facility] Carbon Dioxide (CO2) 29 22 - 29 mmol/L 03/25/2023 7:15 AM CDT [facility] Anion Gap 7 7 - 15 mmol/L 03/25/2023 7:15 AM CDT [facility] Urea Nitrogen 12.7 8.0 - 23.0 mg/dL 03/25/2023 7:15 AM CDT [facility] Creatinine 1.00(H) 0.51 - 0.95 mg/dL 03/25/2023 7:15 AM CDT [facility] Calcium 8.5(L) 8.8 - 10.2 mg/dL 03/25/2023 7:15 AM CDT [facility] Glucose 94 70 - 99 mg/dL 03/25/2023 7:15 AM CDT [facility] GFR Estimate 63 >60 mL/min/1.7 3m2 03/25/2023 7:15 AM CDT LABORATORY Blood STRUCTURE OF RIGHT UPPER LIMB / Unknown Venipuncture / Unknown 03/25/2023 6:38 AM CDT 03/25/2023 6:55 AM CDT Ella Suarez MD LAB - BLOOD ORDER NATALIIA LABORAT[facility] [address] [facility] Lab (1st floor, no room number) [place] [address] [phone] * (ABNORMAL) CBC with platelets (03/25/2023 6:38 AM CDT) WBC Count 7.1 4.0 - 11.0 10e3/uL 03/25/2023 6:59 AM CDT [facility] RBC Count 2.91(L) 3.80 - 5.20 10e6/uL 03/25/2023 6:59 AM CDT [facility] Hemoglobin 8.6(L) 11.7 - 15.7 g/dL 03/25/2023 6:59 AM CDT [facility] Hematocrit 26.5(L) 35.0 - 47.0 % 03/25/2023 6:59 AM CDT [facility] MCV 91 78 - 100 fL 03/25/2023 6:59 AM CDT [facility] MCH 29.6 26.5 - 33.0 pg 03/25/2023 6:59 AM CDT [facility] MCHC 32.5 31.5 - 36.5 g/dL 03/25/2023 6:59 AM CDT [facility] RDW 16.0(H) 10.0 - 15.0 % 03/25/2023 6:59 AM CDT [facility] Platelet Count 214 150 - 450 10e3/uL 03/25/2023 6:59 AM CDT [facility] Blood STRUCTURE OF RIGHT UPPER LIMB / Unknown Venipuncture / Unknown 03/25/2023 6:38 AM CDT 03/25/2023 6:55 AM CDT Madison Iverson MD LAB - BLOOD ORDERA BLES LABORATORY [facility] [address] Lab (1st floor, no room number) [place] [address], [facility] [phone] * (ABNORMAL) Hemoglobin (03/24/2023 9:04 PM CDT) Hemoglobin 9.2(L) 11.7 - 15.7 g/dL 03/24/2023 9:30 PM CDT [facility] Blood STRUCTURE OF LEFT UPPER LIMB / Unknown Venipuncture / Unknown 03/24/2023 9:04 PM CDT 03/24/2023 9:22 PM CDT Ella Suarez MD LAB - BLOOD ORDER NATALIIA LABORATORY [facility] [address] Lab (1st floor, no room number) [place] [address], [facility] [phone] * (ABNORMAL) CBC with platelets and differential (03/24/2023 6:58 AM CDT) WBC Count 9.8 4.0 - 11.0 10e3/uL 03/24/2023 7:26 AM CDT [facility] RBC Count 2.99(L) 3.80 - 5.20 10e6/uL 03/24/2023 7:26 AM CDT [facility] Hemoglobin 8.7(L) 11.7 - 15.7 g/dL 03/24/2023 7:26 AM CDT [facility] Hematocrit 27.4(L) 35.0 - 47.0 % 03/24/2023 7:26 AM CDT [facility] MCV 92 78 - 100 fL 03/24/2023 7:26 AM CDT [facility] MCH 29.1 26.5 - 33.0 pg 03/24/2023 7:26 AM CDT [facility] MCHC 31.8 31.5 - 36.5 g/dL 03/24/2023 7:26 AM CDT [facility] RDW 16.1(H) 10.0 - 15.0 % 03/24/2023 7:26 AM CDT [facility] Platelet Count 195 150 - 450 10e3/uL 03/24/2023 7:26 AM CDT [facility] % Neutrophils 66 % 03/24/2023 7:26 AM CDT [facility] % Lymphocytes 24 % 03/24/2023 7:26 AM CDT [facility] % Monocytes 8 % 03/24/2023 7:26 AM CDT [facility] % Eosinophils 1 % 03/24/2023 7:26 AM CDT [facility] % Basophils 0 % 03/24/2023 7:26 AM CDT [facility] % Immature Granulocytes 1 % 03/24/2023 7:26 AM CDT [facility] NRBCs per 100 WBC 0 <1 /100 023 7:26 AM CDT [facility] Absolute Neutrophils 6.5 1.6 - 8.3 10e3/uL 03/24/2023 7:26 AM CDT [facility] Absolute Lymphocytes 2.3 0.8 - 5.3 10e3/uL 03/24/2023 7:26 AM CDT [facility] Absolute Monocytes 0.8 0.0 - 1.3 10e3/uL 03/24/2023 7:26 AM CDT [facility] Absolute Eosinophils 0.1 0.0 - 0.7 10e3/uL 03/24/2023 7:26 AM CDT [facility] Absolute Basophils 0.0 0.0 - 0.2 10e3/uL 03/24/2023 7:26 AM CDT [facility] Absolute Immature Granulocytes 0.1 <=0.4 10e3/uL 03/24/2023 7:26 AM CDT [facility] Absolute NRBCs 0.0 10e3/uL 03/24/2023 7:26 AM CDT [facility] Blood STRUCTURE OF LEFT UPPER LIMB / Unknown Venipuncture / Unknown 03/24/2023 6:58 AM CDT 03/24/2023 7:18 AM CDT Ella Suarez MD LAB - BLOOD ORDER NATALIIA [facility] [address] Lab (1st floor, no room number) [place] [address], [facility] [phone] * (ABNORMAL) Basic metabolic panel (03/24/2023 6:58 AM CDT) Sodium 139 136 - 145 mmol/L 03/24/2023 7:51 AM CDT LABORATORY Potassium 4.0 3.4 - 5.3 mmol/L 03/24/2023 7:51 AM CDT LABORATORY Chloride 105 98 - 107 mmol/L 03/24/2023 7:51 AM CDT LABORATORY Carbon Dioxide (CO2) 28 22 - 29 mmol/L 03/24/2023 7:51 AM CDT LABORATORY Anion Gap 6(L) 7 - 15 mmol/L 03/24/2023 7:51 AM CDT LABORATORY Urea Nitrogen 17.5 8.0 - 23.0 mg/dL 03/24/2023 7:51 AM CDT LABORATORY Creatinine 1.01(H) 0.51 - 0.95 mg/dL 03/24/2023 7:51 AM CDT LABORATORY Calcium 8.6(L) 8.8 - 10.2 mg/dL 03/24/2023 7:51 AM CDT LABORATORY Glucose 96 70 - 99 mg/dL 03/24/2023 7:51 AM CDT LABORATORY GFR Estimate 62 >60 mL/min/1.7 3m2 03/24/2023 7:51 AM CDT [facility] Blood STRUCTURE OF LEFT UPPER LIMB / Unknown Venipuncture / Unknown 03/24/2023 6:58 AM CDT 03/24/2023 7:19 AM CDT Ella Suarez MD LAB - BLOOD ORDER NATALIIA [facility] [address] Lab (1st floor, no room number) [place] [address], [facility] [phone] * (ABNORMAL) Hemoglobin (03/23/2023 10:11 PM CDT) Hemoglobin 9.4(L) 11.7 - 15.7 g/dL 03/23/2023 10:25 PM CDT [facility] Blood STRUCTURE OF LEFT UPPER LIMB / Unknown Venipuncture / Unknown 03/23/2023 10:11 PM CDT 03/23/2023 10:22 PM CDT Ella Suarez MD LAB - BLOOD ORDER NATALIIA Performing Organization Address City/[facility]/ZIP Co de Phone Number [facility] [address] Lab (1st floor, no room number) [place] [address], [facility] [phone] * (ABNORMAL) Hemoglobin (03/23/2023 5:23 PM CDT) Hemoglobin 9.6(L) 11.7 - 15.7 g/dL 03/23/2023 5:28 PM CDT [facility] Blood STRUCTURE OF LEFT UPPER LIMB / Unknown Venipuncture / Unknown 03/23/2023 5:23 PM CDT 03/23/2023 5:25 PM CDT Madison Iverson MD LAB - BLOOD ORDERA BLES [facility] [address] Lab (1st floor, no room number) [place] [address], [facility] [phone] * Transfuse red blood cells (unit) (03/23/2023 4:18 PM CDT) Issa Bruno MD BLOOD TRANSFUSION OR DERABLES * Transfuse red blood cells (unit), 1 Units (03/23/2023 4:18 PM CDT) Issa Bruno MD BLOOD TRANSFUSION OR DERABLES * Prepare red blood cells (unit) (03/23/2023 11:32 AM CDT) Pathologist [facility] Blood Component Type Red Blood Cells RH BLOOD BANK Product Code [id number] RH BLOO D BANK Unit Status Transfused RH BLOO D BANK Unit Number [id number] RH B LOOD BANK CROSSMATCH Compatible RH BLOOD BANK CODING SYSTEM [id number] RH BLO OD BANK ISSUE DATE AND TIME [id number] RH BLOOD BANK UNIT ABO/RH A+ RH BLOOD BANK UNIT TYPE [id number] RH BL OOD BANK 03/23/2023 11:3 2 AM CDT Issa Bruno MD BLOOD BANK PRODUCT O RDERABLES RH BLOOD BANK [address] [place] [address], [facility] * (ABNORMAL) CBC with platelets and differential (03/23/2023 6:07 AM CDT) Pathologist [facility] WBC Count 9.8 4.0 - 11.0 10e3/uL 03/23/2023 6:23 AM CDT [facility] RBC Count 2.80(L) 3.80 - 5.20 10e6/uL 03/23/2023 6:23 AM CDT [facility] Hemoglobin 7.9(L) 11.7 - 15.7 g/dL 03/23/2023 6:23 AM CDT [facility] Hematocrit 25.8(L) 35.0 - 47.0 % 03/23/2023 6:23 AM CDT [facility] MCV 92 78 - 100 fL 03/23/2023 6:23 AM CDT [facility] MCH 28.2 26.5 - 33.0 pg 03/23/2023 6:23 AM CDT [facility] MCHC 30.6(L) 31.5 - 36.5 g/dL 03/23/2023 6:23 AM CDT [facility] RDW 16.6(H) 10.0 - 15.0 % 03/23/2023 6:23 AM CDT [facility] Platelet Count 240 150 - 450 10e3/uL 03/23/2023 6:23 AM CDT [facility] % Neutrophils 70 % 03/23/2023 6:23 AM CDT [facility] % Lymphocytes 21 % 03/23/2023 6:23 AM CDT [facility] % Monocytes 7 % 03/23/2023 6:23 AM CDT [facility] % Eosinophils 1 % 03/23/2023 6:23 AM CDT [facility] % Basophils 0 % 03/23/2023 6:23 AM CDT [facility] % Immature Granulocytes 1 % 03/23/2023 6:23 AM CDT [facility] NRBCs per 100 WBC 0 <1 /100 023 6:23 AM CDT [facility] Absolute Neutrophils 6.9 1.6 - 8.3 10e3/uL 03/23/2023 6:23 AM CDT [facility] Absolute Lymphocytes 2.1 0.8 - 5.3 10e3/uL 03/23/2023 6:23 AM CDT [facility] Absolute Monocytes 0.7 0.0 - 1.3 10e3/uL 03/23/2023 6:23 AM CDT [facility] Absolute Eosinophils 0.1 0.0 - 0.7 10e3/uL 03/23/2023 6:23 AM CDT [facility] Absolute Basophils 0.0 0.0 - 0.2 10e3/uL 03/23/2023 6:23 AM CDT [facility] Absolute Immature Granulocytes 0.1 <=0.4 10e3/uL 03/23/2023 6:23 AM CDT [facility] Absolute NRBCs 0.0 10e3/uL 03/23/2023 6:23 AM CDT [facility] Blood STRUCTURE OF LEFT UPPER LIMB / Unknown Venipuncture / Unknown 03/23/2023 6:07 AM CDT 03/23/2023 6:12 AM CDT Ella Suarez MD LAB - BLOOD ORDER NATALIIA LABORATORY [facility] [address] Lab (1st floor, no room number) [place] [address], [facility] [phone] * (ABNORMAL) Basic metabolic panel (03/23/2023 6:07 AM CDT) Sodium 139 136 - 145 mmol/L 03/23/2023 6:40 AM CDT LABORATORY Potassium 4.2 3.4 - 5.3 mmol/L 03/23/2023 6:40 AM CDT LABORATORY Chloride 106 98 - 107 mmol/L 03/23/2023 6:40 AM CDT LABORATORY Carbon Dioxide (CO2) 26 22 - 29 mmol/L 03/23/2023 6:40 AM CDT LABORATORY Anion Gap 7 7 - 15 mmol/L 03/23/2023 6:40 AM CDT LABORATORY Urea Nitrogen 29.0(H) 8.0 - 23.0 mg/dL 03/23/2023 6:40 AM CDT LABORATORY Creatinine 1.05(H) 0.51 - 0.95 mg/dL 03/23/2023 6:40 AM CDT LABORATORY Calcium 8.5(L) 8.8 - 10.2 mg/dL 03/23/2023 6:40 AM CDT LABORATORY Glucose 104(H) 70 - 99 mg/dL 03/23/2023 6:40 AM CDT LABORATORY GFR Estimate 59(L) >60 mL/min/1.7 3m2 03/23/2023 6:40 AM CDT LABORATORY Blood STRUCTURE OF LEFT UPPER LIMB / Unknown Venipuncture / Unknown 03/23/2023 6:07 AM CDT 03/23/2023 6:12 AM CDT Ella Suarez MD LAB - BLOOD ORDER NATALIIA [facility] [address] Lab (1st floor, no room number) [place] [address], [facility] [phone] * (ABNORMAL) Hemoglobin (03/22/2023 4:11 PM CDT) Hemoglobin 8.8(L) 11.7 - 15.7 g/dL 03/22/2023 4:18 PM CDT [facility] Blood STRUCTURE OF LEFT UPPER LIMB / Unknown Venipuncture / Unknown 03/22/2023 4:11 PM CDT 03/22/2023 4:15 PM CDT Issa Bruno MD LAB - BLOOD ORDERABL ES [facility] [address] [facility] Lab (1st floor, no room number) [place] [address], [facility] [phone] * (ABNORMAL) CBC with platelets (03/22/2023 6:38 AM CDT) WBC Count 14.2(H) 4.0 - 11.0 10e3/uL 03/22/2023 7:09 AM CDT [facility] RBC Count 3.38(L) 3.80 - 5.20 10e6/uL 03/22/2023 7:09 AM CDT [facility] Hemoglobin 9.5(L) 11.7 - 15.7 g/dL 03/22/2023 7:09 AM CDT [facility] Hematocrit 31.2(L) 35.0 - 47.0 % 03/22/2023 7:09 AM CDT [facility] MCV 92 78 - 100 fL 03/22/2023 7:09 AM CDT [facility] MCH 28.1 26.5 - 33.0 pg 03/22/2023 7:09 AM CDT [facility] MCHC 30.4(L) 31.5 - 36.5 g/dL 03/22/2023 7:09 AM CDT [facility] RDW 16.4(H) 10.0 - 15.0 % 03/22/2023 7:09 AM CDT [facility] Platelet Count 277 150 - 450 10e3/uL 03/22/2023 7:09 AM CDT [facility] Blood STRUCTURE OF LEFT UPPER LIMB / Unknown Venipuncture / Unknown 03/22/2023 6:38 AM CDT 03/22/2023 7:04 AM CDT Jassi Nolasco MD LAB - BLOO D ORDERABLES [facility] [address] Lab (1st floor, no room number) [place] [address], [facility] [phone] * (ABNORMAL) Basic metabolic panel (03/22/2023 6:38 AM CDT) [facility] Sodium 139 136 - 145 mmol/L 03/22/2023 7:28 AM CDT LABORATORY Potassium 4.1 3.4 - 5.3 mmol/L 03/22/2023 7:28 AM CDT LABORATORY Chloride 106 98 - 107 mmol/L 03/22/2023 7:28 AM CDT LABORATORY Carbon Dioxide (CO2) 25 22 - 29 mmol/L 03/22/2023 7:28 AM CDT LABORATORY Anion Gap 8 7 - 15 mmol/L 03/22/2023 7:28 AM CDT LABORATORY Urea Nitrogen 16.0 8.0 - 23.0 mg/dL 03/22/2023 7:28 AM CDT LABORATORY Creatinine 1.01(H) 0.51 - 0.95 mg/dL 03/22/2023 7:28 AM CDT LABORATORY Calcium 8.3(L) 8.8 - 10.2 mg/dL 03/22/2023 7:28 AM CDT LABORATORY Glucose 103(H) 70 - 99 mg/dL 03/22/2023 7:28 AM CDT LABORATORY GFR Estimate 62 >60 mL/min/1.7 3m2 03/22/2023 7:28 AM CDT LABORATORY Blood STRUCTURE OF LEFT UPPER LIMB / Unknown Venipuncture / Unknown 03/22/2023 6:38 AM CDT 03/22/2023 7:04 AM CDT Jassi Nolasco MD LAB - BLOO D ORDERABLES [facility] [address] Lab (1st floor, no room number) [place] [address], [facility] [phone] * (ABNORMAL) Creatinine (03/21/2023 9:28 PM CDT) Creatinine 0.99(H) 0.51 - 0.95 mg/dL 03/21/2023 9:52 PM CDT LABORATORY GFR Estimate 63 >60 mL/min/1.7 3m2 03/21/2023 9:52 PM CDT LABORATORY Blood STRUCTURE OF LEFT UPPER LIMB / Unknown Venipuncture / Unknown 03/21/2023 9:28 PM CDT 03/21/2023 9:34 PM CDT Madison Iverson MD LAB - BLOOD ORDERA BLES Performing Organization Address City/State/[facility] Co de Phone Number LABORATORY [facility] [address], no room number) [place] [id number], [facility] [phone] * Surgical Pathology Exam (03/21/2023 5:39 PM CDT) Case Report Surgical Pathology Report ? Case: [id number] ? Authorizing Provider: ??Madison Iverson MD ?Collected: ? 03/21/2023 05:39 PM ? Ordering Location: ? [facility] ?? Received: ?03/21/2023 06:19 PM ? Main OR ? Pathologist: ? Cecile St MD PhD ? Specimen: ?Small Intestine, Terminal Ileum, TERMINAL ILEUM AND CECUM ? 03/27/2023 3:28 PM CDT LABORATORY Final Diagnosis A(1). TERMINAL ILEUM AND CECUM, EXCISION: -Small bowel with active chronic ileitis and prominent reactive epithelial changes. -Active chronic inflammatory changes extend to proximal (small bowel) margin. -Colon with distal (colonic) margin tubular adenoma (1 mm) -Negative for high-grade dysplasia and malignancy. 03/27/2023 3:28 PM CDT LABORATORY Clinical Information Procedure: Laparoscopic assisted ileocolic resection Pre-op Diagnosis: Crohn's disease of colon with complication (H) [K50.119] Post-op Diagnosis: K50.119 - Crohn's disease of colon with complication (H) [ICD-10-CM] 03/27/2023 3:28 PM CDT LABORATORY Gross Description A(1). Small Intestine, Terminal Ileum, TERMINAL ILEUM AND CECUM: The specimen is received in formalin labeled with the patient's name, medical record number and other identifying information and designated terminal ileum and cecum. It consists of an ileocolic resection specimen including terminal ileum (32 cm in length by 1.5-2 cm in diameter) and cecum (8.5 cm in length by 3-6 cm in diameter). An appendix is not appreciated grossly. The specimen is opened to reveal diffuse claudio, nodular mucosa predominantly within the ileum. The ileum is also markedly strictured, narrowing the lumen to approximately 1 cm in diameter. Sectioning reveals no discrete lesions or masses. Locomotive Oiler sections are submitted. Summary of sections: A1-en face proximal margin, split sections A2-en face distal margin, split sections G8-W9-xzzdnauwlvsxpy terminal ileum mucosa sequentially submitted from proximal to distal every 10 cm A6-ileocecal valve A7-cecal mucosa (BRETT Green ASCP CM) 03/27/2023 3:28 PM CDT [facility] Microscopic Description Microscopic examination was performed. Case was reviewed intradepartmentally 03/27/2023 3:28 PM CDT [facility] Performing Labs The technical component of this testing was completed at [facility] 03/27/2023 3:28 PM CDT [facility] Case Images 03/27/2023 3:28 PM CDT [facility] Resection STRUCTURE OF DISTAL PORTION OF ILEUM / Unknown 03/21/2023 5:39 PM CDT 03/21/2023 6:19 PM CDT Madison CAZARES - GERBER AP [facility] [address] Lab (1st floor, no room number) [place] [id number], [place] [phone] * (ABNORMAL) Glucose by meter (03/21/2023 1:38 PM CDT) GLUCOSE BY METER POCT 107(H) 70 - 99 mg/dL 03/21/2023 1:45 PM CDT [facility] POC Blood, Capillary BLOOD SPECIMEN / Unknown 03/21/2023 1:38 PM CDT 03/21/2023 1:45 PM CDT Mona Villarreal MD LAB - BEDEEPAK POCT LABORATORY POC [facility] [address] Lab (1st floor, no room number) [place] [phone], [place] [phone] * Adult Type and Screen (03/20/2023 12:12 PM CDT) ABO/RH(D) A POS 03/20/2023 12:03 PM CDT [facility] B[facility] Antibody Screen Negative Negative 03/20/2023 12:03 PM CDT [facility] B[facility] SPECIMEN EXPIRATION DATE [id number] 03/20/2023 12:03 PM CDT [facility] Blood STRUCTURE OF LEFT UPPER LIMB / Unknown Venipuncture / Unknown 03/20/2023 12:12 PM CDT 03/20/2023 12:16 PM CDT Roberta Ramirez PA-C LAB - BLOOD BANK T EST ORDER [facility] BLOOD BANK [address] [place] [address], [facility] * Prealbumin (03/20/2023 12:12 PM CDT) Prealbumin 39 15 - 45 mg/dL 03/21/2023 12:15 PM CDT [facility] C[facility]/PROT/ENDO Blood STRUCTURE OF LEFT UPPER LIMB / Unknown Venipuncture / Unknown 03/20/2023 12:12 PM CDT 03/20/2023 12:16 PM CDT Roberta Ramirez PA-C LAB - BLOOD ORDERA BLES [facility] CORE/PROT/ENDO [facility] Core/Prot/Endo [facility], Room [address] [phone] * (ABNORMAL) CBC with platelets (03/20/2023 8:06 AM CDT) WBC Count 7.4 4.0 - 11.0 10e3/uL 03/20/2023 8:19 AM CDT [facility] RBC Count 4.06 3.80 - 5.20 10e6/uL 03/20/2023 8:19 AM CDT [facility] Hemoglobin 11.5(L) 11.7 - 15.7 g/dL 03/20/2023 8:19 AM CDT [facility] Hematocrit 37.3 35.0 - 47.0 % 03/20/2023 8:19 AM CDT [facility] MCV 92 78 - 100 fL 03/20/2023 8:19 AM CDT [facility] MCH 28.3 26.5 - 33.0 pg 03/20/2023 8:19 AM CDT [facility] MCHC 30.8(L) 31.5 - 36.5 g/dL 03/20/2023 8:19 AM CDT [facility] RDW 16.6(H) 10.0 - 15.0 % 03/20/2023 8:19 AM CDT [facility] Platelet Count 242 150 - 450 10e3/uL 03/20/2023 8:19 AM CDT [facility] Blood STRUCTURE OF RIGHT HAND / Unknown Venipuncture / Unknown 03/20/2023 8:06 AM CDT 03/20/2023 8:16 AM CDT Carolin Harris PA-C LAB - BLOOD ORDER NATALIIA LABORAT[facility] [address] Lab (1st floor, no room number) [place] [address] [phone] * (ABNORMAL) Basic metabolic panel (03/20/2023 8:06 AM CDT) Sodium 140 136 - 145 mmol/L 03/20/2023 8:37 AM CDT LABORATORY Potassium 4.2 3.4 - 5.3 mmol/L 03/20/2023 8:37 AM CDT LABORATORY Chloride 105 98 - 107 mmol/L 03/20/2023 8:37 AM CDT LABORATORY Carbon Dioxide (CO2) 27 22 - 29 mmol/L 03/20/2023 8:37 AM CDT LABORATORY Anion Gap 8 7 - 15 mmol/L 03/20/2023 8:37 AM CDT LABORATORY Urea Nitrogen 9.7 8.0 - 23.0 mg/dL 03/20/2023 8:37 AM CDT LABORATORY Creatinine 1.04(H) 0.51 - 0.95 mg/dL 03/20/2023 8:37 AM CDT LABORATORY Calcium 8.5(L) 8.8 - 10.2 mg/dL 03/20/2023 8:37 AM CDT LABORATORY Glucose 87 70 - 99 mg/dL 03/20/2023 8:37 AM CDT [facility] GFR Estimate 60(L) >60 mL/min/1.7 3m2 03/20/2023 8:37 AM CDT [facility] Blood STRUCTURE OF RIGHT HAND / Unknown Venipuncture / Unknown 03/20/2023 8:06 AM CDT 03/20/2023 8:17 AM CDT Carolin Harris PA-C LAB - BLOOD ORDER NATALIIA LABORAT[facility] [address] Lab (1st floor, no room number) [place] [address], [facility] [phone] * Lactic acid whole blood (03/19/2023 9:30 PM CDT) Lactic Acid 1.0 0.7 - 2.0 mmol/L 03/19/2023 9:38 PM CDT [facility] Blood BLOOD SPECIMEN / Unknown Venipuncture / Unknown 03/19/2023 9:30 PM CDT 03/19/2023 9:36 PM CDT Mona Villarreal MD LAB - BLOOD ORDERABL ES [facility] [address] Lab (1st floor, no room number) [place] [address], [facility] [phone] * CT Abdomen Pelvis w Contrast (03/19/2023 8:56 PM CDT) Anatomical Region Laterality Modality Abdomen/Pelvis, SUBRAD CT TIFFANIE DY, UMP CT ABDOMEN PELVIS, RAD CT Computed Tomography 03/19/2023 8:56 PM CDT Impressions 03/19/2023 9:10 PM CDT IMPRESSION: 1. ??No significant change in 3 segments of terminal ileum demonstrating acute on chronic ileitis with luminal narrowing. No bowel obstruction. No abscess. Narrative 03/19/2023 9:10 PM CDT EXAM: CT ABDOMEN PELVIS W CONTRAST LOCATION: [facility] DATE: 03/19/2023 INDICATION: Abdominal pain. Crohn's disease. COMPARISON: 02/20/2023 TECHNIQUE: CT scan of the abdomen and pelvis was performed following injection of IV contrast. Multiplanar reformats were obtained. Dose reduction techniques were used. CONTRAST: 71mL Isovue 370 FINDINGS: LOWER CHEST: Unremarkable. HEPATOBILIARY: Liver appears normal. Status post cholecystectomy. No biliary dilatation. PANCREAS: Normal. SPLEEN: Unchanged 0.6 cm low-attenuation lesion in the spleen, too small to characterize. ADRENAL GLANDS: Normal. KIDNEYS/BLADDER: Status post right nephrectomy. Left kidney appears normal. No hydronephrosis. Urinary bladder appears normal. BOWEL: No significant change in 3 segments of terminal ileum demonstrating wall thickening and mucosal hyperenhancement with associated luminal narrowing. The mid to distal sigmoid colon is decompressed, which obscures the previously described segments of luminal narrowing. No definite inflammatory change involving the colon. No bowel obstruction. No abscess. Appendix not visualized, although no secondary signs of acute appendicitis. LYMPH NODES: No lymphadenopathy. VASCULATURE: Moderate atherosclerotic calcifications. PELVIC ORGANS: Status post hysterectomy. MUSCULOSKELETAL: Multilevel degenerative changes of the spine. Procedure Note Dylan Correa MD - 03/19/2023 EXAM: CT ABDOMEN PELVIS W CONTRAST LOCATION: [facility] DATE: 03/19/2023 INDICATION: Abdominal pain. Crohn's disease. COMPARISON: 02/20/2023 TECHNIQUE: CT scan of the abdomen and pelvis was performed followinginjection of IV contrast. Multiplanar reformats were obtained. Dosereduction techniques were used. CONTRAST: 71mL Isovue 370 FINDINGS: LOWER CHEST: Unremarkable. HEPATOBILIARY: Liver appears normal. Status post cholecystectomy. Nobiliary dilatation. PANCREAS: Normal. SPLEEN: Unchanged 0.6 cm low-attenuation lesion in the spleen, too smallto characterize. ADRENAL GLANDS: Normal. KIDNEYS/BLADDER: Status post right nephrectomy. Left kidney appearsnormal. No hydronephrosis. Urinary bladder appears normal. BOWEL: No significant change in 3 segments of terminal ileum demonstratingwall thickening and mucosal hyperenhancement with associated luminalnarrowing. The mid to distal sigmoid colon is decompressed, which obscuresthe previously described segments of luminal narrowing. No definite inflammatory change involving the colon.No bowel obstruction. No abscess. Appendix not visualized, although nosecondary signs of acute appendicitis. LYMPH NODES: No lymphadenopathy. VASCULATURE: Moderate atherosclerotic calcifications. PELVIC ORGANS: Status post hysterectomy. MUSCULOSKELETAL: Multilevel degenerative changes of the spine. IMPRESSION: 1. No significant change in 3 segments of terminal ileum demonstratingacute on chronic ileitis with luminal narrowing. No bowel obstruction. Noabscess. Mona Villarreal MD IMG CT ORDERABLES * (ABNORMAL) Lactic acid whole blood (03/19/2023 7:09 PM CDT) Lactic Acid 2.1(H) 0.7 - 2.0 mmol/L 03/19/2023 7:17 PM CDT LABORATORY Blood BLOOD SPECIMEN / Unknown Venipuncture / Unknown 03/19/2023 7:09 PM CDT 03/19/2023 7:16 PM CDT Mona Villarreal MD LAB - BLOOD ORDERABL ES LABORATORY [facility] [address] [facility] Lab (1st floor, no room number) [place] [address], [facility] [phone] * (ABNORMAL) UA with Microscopic reflex to Culture (03/19/2023 6:16 PM CDT) Color Urine Straw Colorless, Straw, Light Yellow, Yellow 03/19/2023 6:30 PM CDT LABORATORY Appearance Urine Clear Clear 03/19/20 23 6:30 PM CDT LABORATORY Glucose Urine Negative Negative mg/dL 03/19/2023 6:30 PM CDT LABORATORY Bilirubin Urine Negative Negative 3 6:30 PM CDT LABORATORY Ketones Urine Negative Negative mg/dL 03/19/2023 6:30 PM CDT LABORATORY Specific [place] Urine 1.005 1.003 - 1.035 03/19/2023 6:30 PM CDT LABORATORY Blood Urine Negative Negative 03/19/2023 6:30 PM CDT LABORATORY pH Urine 5.5 5.0 - 7.0 03/19/2023 6:30 PM CDT LABORATORY Protein Albumin Urine Negative Negative mg/dL 03/19/2023 6:30 PM CDT [facility] Urobilinogen Urine Normal Normal, 2.0 mg/dL 03/19/2023 6:30 PM CDT [facility] Nitrite Urine Negative Negative 03/19/2023 6:30 PM CDT [facility] Leukocyte Esterase Urine Negative Negative 03/19/2023 6:30 PM CDT [facility] Mucus Urine Present(A) None Seen /LPF 03/19/2023 6:30 PM CDT [facility] RBC Urine <1 <=2 /HPF 03/19/2023 6:30 PM CDT [facility] WBC Urine 0 <=5 /HPF 03/19/2023 6:30 PM CDT [facility] Urine URINE SPECIMEN OBTAINED BY CLEAN CATCH PROCEDURE / Unknown Non-blood Collection / Unknown 03/19/2023 6:16 PM CDT 03/19/2023 6:23 PM CDT Narrative [facility] - 03/19/2023 6:30 PM CDT Urine Culture not indicated Mona Villarreal MD LAB - URINE ORDERABL ES LABORATORY [facility] [address] [facility] Lab (1st floor, no room number) [place] [address], [facility] [phone] * Hepatic function panel (03/19/2023 3:30 PM CDT) Protein Total 6.5 6.4 - 8.3 g/dL 03/19/2023 6:21 PM CDT [facility] Albumin 4.3 3.5 - 5.2 g/dL 03/19/2023 6:21 PM CDT [facility] Bilirubin Total 0.5 <=1.2 mg/dL 03/19/2023 6:21 PM CDT [facility] Alkaline Phosphatase 66 35 - 104 U/L 03/19/2023 6:21 PM CDT [facility] AST 18 0 - 45 U/L 03/19/2023 6:21 PM CDT [facility] Comment:Reference intervals for this test were updated on 02/17/2023 to more accurately reflect our healthy population. There may be differences in the flagging of prior results with similar values performed with this method. Interpretation of those prior results can be made in the context of the updated reference intervals. ALT 17 0 - 50 U/L 03/19/2023 6:21 PM CDT [facility] Comment:Reference intervals for this test were updated on 02/17/2023 to more accurately reflect our healthy population. There may be differences in the flagging of prior results with similar values performed with this method. Interpretation of those prior results can be made in the context of the updated reference intervals. Bilirubin Direct <0.20 0.00 - 0.30 mg/dL 03/19/2023 6:21 PM CDT [facility] Blood STRUCTURE OF RIGHT UPPER LIMB / Unknown Venipuncture / Unknown 03/19/2023 3:30 PM CDT 03/19/2023 3:34 PM CDT Mona Villarreal MD LAB - BLOOD ORDERABL ES Performing Organization Address City/[facility]/ZIP Co de Phone Number [facility] [address] Lab (1st floor, no room number) [place] [address], [facility] [phone] * Extra Red Top Tube (03/19/2023 3:30 PM CDT) Hold Specimen [facility] 03/19/2023 4:47 PM CDT [facility] Blood STRUCTURE OF RIGHT UPPER LIMB / Unknown Venipuncture / Unknown 03/19/2023 3:30 PM CDT 03/19/2023 3:34 PM CDT Mona Villarreal MD LAB - BLOOD ORDERABL ES [facility] [address] Lab (1st floor, no room number) [place] [address], [facility] [phone] * Extra Blue Top Tube (03/19/2023 3:30 PM CDT) Hold Specimen [facility] 03/19/2023 4:47 PM CDT [facility] Blood STRUCTURE OF RIGHT UPPER LIMB / Unknown Venipuncture / Unknown 03/19/2023 3:30 PM CDT 03/19/2023 3:34 PM CDT Mona Villarreal MD LAB - BLOOD ORDERABL ES [facility] [address] Lab (1st floor, no room number) [place] [address], [facility] [phone] * (ABNORMAL) Basic metabolic panel (BMP) (03/19/2023 3:30 PM CDT) [facility] Sodium 138 136 - 145 mmol/L 03/19/2023 3:57 PM CDT LABORATORY Potassium 4.7 3.4 - 5.3 mmol/L 03/19/2023 3:57 PM CDT LABORATORY Chloride 101 98 - 107 mmol/L 03/19/2023 3:57 PM CDT LABORATORY Carbon Dioxide (CO2) 26 22 - 29 mmol/L 03/19/2023 3:57 PM CDT LABORATORY Anion Gap 11 7 - 15 mmol/L 03/19/2023 3:57 PM CDT LABORATORY Urea Nitrogen 10.0 8.0 - 23.0 mg/dL 03/19/2023 3:57 PM CDT LABORATORY Creatinine 1.14(H) 0.51 - 0.95 mg/dL 03/19/2023 3:57 PM CDT LABORATORY Calcium 9.4 8.8 - 10.2 mg/dL 03/19/2023 3:57 PM CDT LABORATORY Glucose 102(H) 70 - 99 mg/dL 03/19/2023 3:57 PM CDT LABORATORY GFR Estimate 53(L) >60 mL/min/1.7 3m2 03/19/2023 3:57 PM CDT LABORATORY Blood STRUCTURE OF RIGHT UPPER LIMB / Unknown Venipuncture / Unknown 03/19/2023 3:30 PM CDT 03/19/2023 3:34 PM CDT Mona Villarreal MD LAB - BLOOD ORDERABL ES [facility] [address] Lab (1st floor, no room number) [place] [address], [facility] [phone] * (ABNORMAL) CBC (platelets, no diff) (03/19/2023 3:30 PM CDT) WBC Count 9.8 4.0 - 11.0 10e3/uL 03/19/2023 3:38 PM CDT [facility] RBC Count 4.56 3.80 - 5.20 10e6/uL 03/19/2023 3:38 PM CDT [facility] Hemoglobin 12.7 11.7 - 15.7 g/dL 03/19/2023 3:38 PM CDT [facility] Hematocrit 41.4 35.0 - 47.0 % 03/19/2023 3:38 PM CDT RH [facility] MCV 91 78 - 100 fL 03/19/2023 3:38 PM CDT [facility] MCH 27.9 26.5 - 33.0 pg 03/19/2023 3:38 PM CDT [facility] MCHC 30.7(L) 31.5 - 36.5 g/dL 03/19/2023 3:38 PM CDT [facility] RDW 16.5(H) 10.0 - 15.0 % 03/19/2023 3:38 PM CDT [facility] Platelet Count 294 150 - 450 10e3/uL 03/19/2023 3:38 PM CDT [facility] Blood STRUCTURE OF RIGHT UPPER LIMB / Unknown Venipuncture / Unknown 03/19/2023 3:30 PM CDT 03/19/2023 3:34 PM CDT Mona Villarreal MD LAB - BLOOD ORDERABL ES [facility] LAB[facility]ORY [facility] [address] Lab (1st floor, no room number) [place] [address], [facility] [phone] documented in this encounter Visit Diagnoses Diagnosis Intractable abdominal pain- Primary Abdominal pain, unspecified site Crohn's disease of colon with complication (H) Intractable abdominal pain Abdominal pain, unspecified site Crohn's disease of colon with complication (H) Crohn's disease of colon with complication (H) documented in this encounter Admitting Diagnoses Diagnosis Intractable abdominal pain Abdominal pain, unspecified site documented in this encounter Administered Medications Inactive Administered Medications - up to 3 most recent administrations Medication Order MAR Action Action Date Dose Rate Site acetaminophen (TYLENOL) tablet 650 mg 650 mg, Oral, EVERY 4 HOURS PRN, other, For optimal non-opioid multimodal pain management to improve pain control., Starting on 03/24/23 at 0000, May give first dose 4 hours after last scheduled dose of acetaminophen (TYLENOL). Maximum acetaminophen dose from all sources = 75 mg/kg/day not to exceed 4 grams/day. $Given 03/26/2023 9:34 AM CDT 650 mg $Given 03/25/2023 1:09 PM CDT 650 mg $Given 03/25/2023 8:15 AM CDT 650 mg benzocaine 20% (HURRICAINE/TOPEX) 20 % spray 0.5-1 mL 0.5-1 mL (1-2 spray), Mouth/Throat, EVERY 3 HOURS PRN, sore throat, Starting on 03/22/23 at 1440 $Given 03/22/2023 3:05 PM CDT 0.5 mLs bupivacaine 0.25 % - EPINEPHrine 1:200,000 (PF) injection PRN, Starting on Fri03/21/23 at 1727, Intra-procedure $Given 03/21/2023 5:27 PM CDT 22 mLs enoxaparin ANTICOAGULANT (LOVENOX) injection 40 mg 40 mg, Subcutaneous, EVERY 24 HOURS, First dose on 03/22/23 at 1300, Check to make sure start date/time is 12-24 hours post op unless documented complication, AND no sooner than 22 hours post op if spinal anesthesia used. Continue until discharge to home. HOLD if platelet count falls below 50% of baseline or less than 100,000/??L and notify provider. $Given 03/22/2023 12:32 PM CDT 40 mg esomeprazole (nexIUM) CR caps 40 mg [PT SUPPLIED] 40 mg, Oral, 2 TIMES DAILY BEFORE MEALS, First dose on Betty 03/20/23 at 1100 $Given 03/26/2023 6:19 AM CDT 40 mg $Given 03/25/2023 5:20 PM CDT 40 mg $Given 03/25/2023 8:15 AM CDT 40 mg HYDROmorphone (DILAUDID) injection 0.2 mg 0.2 mg, Intravenous, EVERY 2 HOURS PRN, moderate pain, Starting on Fri03/21/23 at 2046, IF patient unable to take oral pain medication or pain not controlled with oral analgesics. Hold IV PRN opioid dose for analgesic side effects. Notify provider to assess for uncontrolled pain or analgesic side effects. $Given 03/22/2023 11:46 AM CDT 0.2 mg $Given 03/22/2023 11:19 AM CDT 0.2 mg HYDROmorphone (DILAUDID) injection 0.4 mg 0.4 mg, Intravenous, EVERY 2 HOURS PRN, severe pain, Starting on Fri03/21/23 at 2046, IF patient unable to take oral pain medication or pain not controlled with oral analgesics. Hold IV PRN opioid dose for analgesic side effects. Notify provider to assess for uncontrolled pain or analgesic side effects. $Given 03/22/2023 8:58 AM CDT 0.4 mg $Given 03/22/2023 7:05 AM CDT 0.4 mg $Given 03/22/2023 5:05 AM CDT 0.4 mg HYDROmorphone (DILAUDID) tablet 2 mg 2 mg, Oral, EVERY 4 HOURS PRN, moderate pain, Starting on Fri03/21/23 at 2046, Hold oral PRN dose for analgesic side effects. Notify provider to assess for uncontrolled pain or analgesic side effects. Hold while on IV COMMIS CHEF or with regular IV opioid dosing. $Given 03/25/2023 9:39 PM CDT 2 mg $Given 03/25/2023 2:11 PM CDT 2 mg $Given 03/24/2023 7:53 PM CDT 2 mg HYDROmorphone (DILAUDID) tablet 4 mg 4 mg, Oral, EVERY 4 HOURS PRN, severe pain, Starting on Fri03/21/23 at 2046, Hold oral PRN dose for analgesic side effects. Notify provider to assess for uncontrolled pain or analgesic side effects. Hold while on IV COMMIS CHEF or with regular IV opioid dosing. $Given 03/26/2023 6:19 AM CDT 4 mg $Given 03/26/2023 1:59 AM CDT 4 mg $Given 03/23/2023 4:48 AM CDT 4 mg lactated ringers infusion at 75 mL/hr, Intravenous, CONTINUOUS, Change to saline lock when well tolerated., Starting on Fri03/21/23 at 2100, Until Fri03/26/23 at 1437 Rate/Dose Verify 03/24/2023 4:59 PM CDT 7 5 mL/hr Rate/Dose Verify 03/24/2023 2:00 PM CDT 75 mL/h r $New Bag 03/23/2023 8:48 PM CDT 75 mL/hr methocarbamol (ROBAXIN) tablet 500 mg 500 mg, Oral, 4 TIMES DAILY PRN, muscle spasms, Starting on Fri03/20/23 at 0000 $Given 03/26/2023 9:34 AM CDT 500 mg $Given 03/26/2023 12:20 AM CDT 500 mg $Given 03/24/2023 10:29 PM CDT 500 mg montelukast (SINGULAIR) tablet 10 mg 10 mg, Oral, AT BEDTIME, First dose on Fri03/20/23 at 0005 $Given 03/25/2023 9:35 PM CDT 10 mg $Given 03/24/2023 10:03 PM CDT 10 mg $Given 03/23/2023 9:13 PM CDT 10 mg multivitamin, therapeutic (THERA-VIT) tablet 1 tablet 1 tablet, Oral, DAILY, First dose on Fri03/25/23 at 0900 $Given 03/26/2023 9:22 AM CDT 1 tablet $Given 03/25/2023 8:15 AM CDT 1 tablet naloxone (NARCAN) injection 0.2 mg 0.2 mg, Intravenous, EVERY 2 MIN PRN, opioid reversal, Starting on Fri03/20/23 at 1023, Administer intravenous route when available and notify [...] 2 MIN PRN, opioid reversal, Starting on Betty 03/20/23 at 1023, Administer intramuscular if an intravenous route is [...] 2 MIN PRN, opioid reversal, Starting on Betty 03/20/23 at 1023, Administer intravenous route when available and notify [...] 2 MIN PRN, opioid reversal, Starting on Betty 03/20/23 at 1023, Administer intramuscular if an intravenous route is [...] mg, Oral, AT BEDTIME, First dose on Betty 03/20/23 at 0005 $Given 03/25/2023 9:35 PM CDT 25 mg $Given 03/24/2023 10:03 PM CDT 25 mg $Given 03/23/2023 9:13 PM CDT 25 mg ondansetron (ZOFRAN ODT) ODT tab 4 mg 4 mg, Oral, EVERY 6 HOURS PRN, nausea, vomiting, Starting on Fri03/21/23 at 2047, This is Step 1 of nausea and vomiting management. If nausea not resolved in 15 minutes, go to Step 2 prochlorperazine (COMPAZINE). Do NOT administer if patient received granisetron (KYTRIL) pre-operatively. With dry hands, peel back foil backing and gently remove tablet. Do not push oral disintegrating tablet through foil backing. Administer immediately on tongue and oral disintegrating tablet dissolves in seconds, then swallow with saliva. Liquid not required. ondansetron (ZOFRAN) injection 4 mg 4 mg, Intravenous, EVERY 6 HOURS PRN, nausea, vomiting, Administer over 2-5 Minutes, Starting on Fri03/21/23 at 2047, Give IF patient unable to tolerate oral medication. This is Step 1 of nausea and vomiting management. If nausea not resolved in 15 minutes, go to Step 2 prochlorperazine (COMPAZINE). Do NOT administer if patient received granisetron (KYTRIL) pre-operatively. Irritant. $Given 03/22/2023 12:32 PM CDT 4 mg $Given 03/21/2023 9:24 PM CDT 4 mg predniSONE (DELTASONE) tablet 10 mg 10 mg, Oral, DAILY, First dose on Fri03/24/23 at 1700 $Given 03/26/2023 9:22 AM CDT 10 mg $Given 03/25/2023 8:15 AM CDT 10 mg $Given 03/24/2023 4:55 PM CDT 10 mg prochlorperazine (COMPAZINE) injection 10 mg 10 mg, Intravenous, EVERY 6 HOURS PRN, nausea, vomiting, Administer over 1-2 Minutes, Starting on Betty 03/20/23 at 0000, IF patient unable to tolerate oral medication. This is Step 2 of nausea and vomiting management. Give if nausea not resolved 15 minutes after giving ondansetron (ZOFRAN). $Given 03/20/2023 8:56 PM CDT 1 0 mg prochlorperazine (COMPAZINE) suppository 25 mg 25 mg, Rectal, EVERY 12 HOURS PRN, nausea, vomiting, Starting on Betty 03/20/23 at 0000, This is Step 2 of nausea and vomiting management. Give if nausea not resolved 15 minutes after giving ondansetron (ZOFRAN). prochlorperazine (COMPAZINE) tablet 10 mg 10 mg, Oral, EVERY 6 HOURS PRN, vomiting, Starting on Betty 03/20/23 at 0000, This is Step 2 of nausea and vomiting management. Give if nausea not resolved 15 minutes after giving ondansetron (ZOFRAN). sodium chloride (PF) 0.9% PF flush 3 mL 3 mL, Intracatheter, EVERY 8 HOURS, First dose on Fri03/21/23 at 2100, to lock peripheral IV dormant line $Given 03/23/2023 8:51 PM CDT 3 mLs $Given 03/22/2023 10:35 PM CDT 3 mLs sodium chloride 0.9% (bottle) irrigation PRN, Starting on Fri03/21/23 at 1750, Intra-procedure $Given 03/21/2023 5:50 PM CDT 3,000 mLs traZODone (DESYREL) tablet 200 mg 200 mg, Oral, AT BEDTIME, First dose on Betty 03/20/23 at 0005 $Given 03/25/2023 9:35 PM CDT 200 mg $Given 03/24/2023 10:03 PM CDT 200 mg $Given 03/23/2023 9:13 PM CDT 200 mg documented in this encounter Active and Recently Administered Medications Times are shown in CDT. Scheduled Medication Order 03/24/2023 03/25/2023 03/26/2023 acetaminophen (TYLENOL) tablet 975 mg (COMPLETED) 975 mg, Oral, EVERY 8 HOURS, First dose on Fri03/21/23 at 2100, For 3 days, Administer for multimodal surgical pain management. Maximum acetaminophen dose from all sources = 75 mg/kg/day not to exceed 4 grams/day. 0539 ($Given - Provider: Carmella Conway RN)1401 ($Given - Provider: Mayela Fung RN) enoxaparin ANTICOAGULANT (LOVENOX) injection 40 mg 40 mg, Subcutaneous, EVERY 24 HOURS, First dose on Fri03/22/23 at 1300, Check to make sure start date/time is 12-24 hours post op unless documented complication, AND no sooner than 22 hours post op if spinal anesthesia used. Continue until discharge to home. HOLD if platelet count falls below 50% of baseline or less than 100,000/??L and notify provider. 1300 (Automatically Held - Provider: Issa Bruno MD) 1300 (Automatically Held - Provider: Issa Bruno MD) 0827 (Unheld by provider - Provider: Roberta Ramirez PA-C)1300 (Canceled Entry - Provider: Orders Generic Provider - Comment: Automatically canceled at discontinue of medication order) esomeprazole (nexIUM) CR caps 40 mg [PT SUPPLIED] 40 mg, Oral, 2 TIMES DAILY BEFORE MEALS, First dose on Betty 03/20/23 at 1100 0908 ($Given - Provider: Mayela Fung RN)1656 ($Given - Provider: Liberty Louis RN) 0815 ($Given - Provider: Mayela Fung RN)1720 ($Given - Provider: Candy Michel RN) 0619 ($Given - Provider: Stephanie Chawla, IFRAH)0649 (Canceled Entry - Provider: Stephanie Chawla, RN) hydrocortisone sodium succinate PF (solu-CORTEF) injection 25 mg (CANCELED)(Linked Group 1) 25 mg, Intravenous, EVERY 12 HOURS, Administer over 1-4 Minutes, First dose on Fri03/23/23 at 2100, For 14 days, 3rd order in taper 0948 ($Given - Provider: Mayela Fung RN) montelukast (SINGULAIR) tablet 10 mg 10 mg, Oral, AT BEDTIME, First dose on Fri03/20/23 at 0005 2203 ($Given - Provider: Liberty Louis RN) 2135 ($Given - Provider: Candy Michel RN) multivitamin, therapeutic (THERA-VIT) tablet 1 tablet 1 tablet, Oral, DAILY, First dose on Fri03/25/23 at 0900 0815 ($Given - Provider: Mayela Fung RN) 0922 ($Given - Provider: Mayela Fung RN) nortriptyline (PAMELOR) capsule 25 mg 25 mg, Oral, AT BEDTIME, First dose on Fri03/20/23 at 0005 2203 ($Given - Provider: Liberty Louis RN) 2135 ($Given - Provider: Candy Michel RN) predniSONE (DELTASONE) tablet 10 mg 10 mg, Oral, DAILY, First dose on Fri03/24/23 at 1700 1655 ($Given - Provider: Liberty Louis RN) 0815 ($Given - Provider: Mayela Fung RN) 0922 ($Given - Provider: Mayela Fung RN) sodium chloride (PF) 0.9% PF flush 3 mL 3 mL, Intracatheter, EVERY 8 HOURS, First dose on Fri03/21/23 at 2100, to lock peripheral IV dormant line 0403 (Not Given - Provider: Carmella Conway RN - Reason: IV Infusing)1352 (Not Given - Provider: Mayela Fung RN - Reason: IV Infusing)2032 (Not Given - Provider: Liberty Louis RN - Reason: IV Infusing) 0400 (Not Given - Provider: Ingrid Jeter RN - Reason: No IV Access)1301 (Not Given - Provider: Myaela Fung RN - Reason: Loss of IV access)2136 (Not Given - Provider: Candy Michel RN - Reason: No IV Access) 0913 (Not Given - Provider: Mayela Fung RN - Reason: No IV Access) traZODone (DESYREL) tablet 200 mg 200 mg, Oral, AT BEDTIME, First dose on Betty 03/20/23 at 0005 2203 ($Given - Provider: Liberty Louis RN) 2135 ($Given - Provider: Candy Michel RN) Continuous Medication Order 03/24/2023 03/25/2023 03/26/2023 lactated ringers infusion at 75 mL/hr, Intravenous, CONTINUOUS, Change to saline lock when well tolerated., Starting on Fri03/21/23 at 2100, Until Fri03/26/23 at 1437 1400 (Rate/Dose Verify - Provider: Mayela Fung RN)1659 (Rate/Dose Verify - Provider: Liberty Louis RN)2100 (Stopped - Provider: Liberty Louis RN) PRN Medication Order 03/24/2023 03/25/2023 03/26/2023 acetaminophen (TYLENOL) tablet 650 mg 650 mg, Oral, EVERY 4 HOURS PRN, other, For optimal non-opioid multimodal pain management to improve pain control., Starting on Fri03/24/23 at 0000, May give first dose 4 hours after last scheduled dose of acetaminophen (TYLENOL). Maximum acetaminophen dose from all sources = 75 mg/kg/day not to exceed 4 grams/day. 0815 ($Given - Provider: Mayela Fung RN)1309 ($Given - Provider: Mayela Fung RN) 0934 ($Given - Provider: Mayela Fung RN) benzocaine 20% (HURRICAINE/TOPEX) 20 % spray 0.5-1 mL 0.5-1 mL (1-2 spray), Mouth/Throat, EVERY 3 HOURS PRN, sore throat, Starting on Fri03/22/23 at 1440 HYDROmorphone (DILAUDID) injection 0.2 mg(Linked Group 2) 0.2 mg, Intravenous, EVERY 2 HOURS PRN, moderate pain, Starting on Fri03/21/23 at 2046, IF patient unable to take oral pain medication or pain not controlled with oral analgesics. Hold IV PRN opioid dose for analgesic side effects. Notify provider to assess for uncontrolled pain or analgesic side effects. HYDROmorphone (DILAUDID) injection 0.4 mg(Linked Group 2) 0.4 mg, Intravenous, EVERY 2 HOURS PRN, severe pain, Starting on Fri03/21/23 at 2046, IF patient unable to take oral pain medication or pain not controlled with oral analgesics. Hold IV PRN opioid dose for analgesic side effects. Notify provider to assess for uncontrolled pain or analgesic side effects. HYDROmorphone (DILAUDID) tablet 2 mg(Linked Group 3) 2 mg, Oral, EVERY 4 HOURS PRN, moderate pain, Starting on Fri03/21/23 at 2046, Hold oral PRN dose for analgesic side effects. Notify provider to assess for uncontrolled pain or analgesic side effects. Hold while on IV COMMIS CHEF or with regular IV opioid dosing. 0154 ($Given - Provider: Carmella Conway RN)0959 ($Given - Provider: Mayela Fung RN)1952 ($Given - Provider: Liberty Louis RN) 1411 ($Given - Provider: Mayela Fung RN)2139 ($Given - Provider: Candy Michel RN) 0159 (See Alternative - Provider: Stephanie Chawla RN)0619 (See Alternative - Provider: Stephanie Chawla, IFRAH) HYDROmorphone (DILAUDID) tablet 4 mg(Linked Group 3) 4 mg, Oral, EVERY 4 HOURS PRN, severe pain, Starting on Fri03/21/23 at 2046, Hold oral PRN dose for analgesic side effects. Notify provider to assess for uncontrolled pain or analgesic side effects. Hold while on IV COMMIS CHEF or with regular IV opioid dosing. 0154 (See Alternative - Provider: Carmella Conway RN)0959 (See Alternative - Provider: Mayela Fung RN)1953 (See Alternative - Provider: Liberty Louis RN) 1411 (See Alternative - Provider: Mayela Fung, RN)2139 (See Alternative - Provider: Candy Michel RN) 0159 ($Given - Provider: Stephanie Chawla, RN)0619 ($Given - Provider: Stephanie Chawla, RN) lidocaine (LMX4) cream Topical, EVERY 1 HOUR PRN, pain, with VAD insertion, Starting on Fri03/21/23 at 2046, Apply at least 30 minutes prior to [...] mild pain with VAD insertion, Starting on Fri03/21/23 at 2046, MAX dose 1 mL subcutaneous OR intradermal along the side of the vein in divided doses as needed for VAD insertion. Do NOT give if patient has a history of allergy to any local anesthetic or any carlos product. Do NOT use both lidocaine intradermal/subcutaneous injection and the lidocaine cream on the same site. melatonin tablet 1 mg 1 mg, Oral, AT BEDTIME PRN, sleep, Starting on Fri03/20/23 at 0000, Do not give unless at least 6 hours of uninterrupted sleep is expected. methocarbamol (ROBAXIN) tablet 500 mg 500 mg, Oral, 4 TIMES DAILY PRN, muscle spasms, Starting on Fri03/20/23 at 0000 2229 ($Given - Provider: Liberty Louis, RN) 0020 ($Given - Provider: Stephanie Chawla, RN)0934 ($Given - Provider: Mayela Fung, IFRAH) naloxone (NARCAN) injection 0.2 mg(Linked Group 4) 0.2 mg, Intravenous, EVERY 2 MIN PRN, opioid reversal, Starting on Fri03/20/23 at 1023, Administer intravenous route when available and notify [...] doses. naloxone (NARCAN) injection 0.2 mg(Linked Group 4) 0.2 mg, Intramuscular, EVERY 2 MIN PRN, opioid reversal, Starting on Betty 03/20/23 at 1023, Administer intramuscular if an intravenous route is [...] doses. naloxone (NARCAN) injection 0.4 mg(Linked Group 4) 0.4 mg, Intravenous, EVERY 2 MIN PRN, opioid reversal, Starting on Betty 03/20/23 at 1023, Administer intravenous route when available and notify [...] doses. naloxone (NARCAN) injection 0.4 mg(Linked Group 4) 0.4 mg, Intramuscular, EVERY 2 MIN PRN, opioid reversal, Starting on Betty 03/20/23 at 1023, Administer intramuscular if an intravenous route is [...] (ZOFRAN ODT) ODT tab 4 mg(Linked Group 5) 4 mg, Oral, EVERY 6 HOURS PRN, nausea, vomiting, Starting on Fri03/21/23 at 2047, This is Step 1 of nausea and vomiting management. If nausea not resolved in 15 minutes, go to Step 2 prochlorperazine (COMPAZINE). Do NOT administer if patient received granisetron (KYTRIL) pre-operatively. With dry hands, peel back foil backing and gently remove tablet. Do not push oral disintegrating tablet through foil backing. Administer immediately on tongue and oral disintegrating tablet dissolves in seconds, then swallow with saliva. Liquid not required. ondansetron (ZOFRAN) injection 4 mg(Linked Group 5) 4 mg, Intravenous, EVERY 6 HOURS PRN, nausea, vomiting, Administer over 2-5 Minutes, Starting on Fri03/21/23 at 7, Give IF patient unable to tolerate oral medication. This is Step 1 of nausea and vomiting management. If nausea not resolved in 15 minutes, go to Step 2 prochlorperazine (COMPAZINE). Do NOT administer if patient received granisetron (KYTRIL) pre-operatively. Irritant. prochlorperazine (COMPAZINE) injection 10 mg(Linked Group 6) 10 mg, Intravenous, EVERY 6 HOURS PRN, nausea, vomiting, Administer over 1-2 Minutes, Starting on Betty 03/20/23 at 0000, IF patient unable to tolerate oral medication. This is Step 2 of nausea and vomiting management. Give if nausea not resolved 15 minutes after giving ondansetron (ZOFRAN). prochlorperazine (COMPAZINE) suppository 25 mg(Linked Group 6) 25 mg, Rectal, EVERY 12 HOURS PRN, nausea, vomiting, Starting on Betyt 03/20/23 at 0000, This is Step 2 of nausea and vomiting management. Give if nausea not resolved 15 minutes after giving ondansetron (ZOFRAN). prochlorperazine (COMPAZINE) tablet 10 mg(Linked Group 6) 10 mg, Oral, EVERY 6 HOURS PRN, vomiting, Starting on Betty 03/20/23 at 0000, This is Step 2 of nausea and vomiting management. Give if nausea not resolved 15 minutes after giving ondansetron (ZOFRAN). sennosides (SENOKOT) tablet 1-2 tablet 1-2 tablet, Oral, 2 TIMES DAILY PRN, constipation, Starting on Betty 03/20/23 at 0000, Hold for loose stools. sodium chloride (PF) 0.9% PF flush 3 mL 3 mL, Intracatheter, EVERY 1 MIN PRN, line flush, other, to ensure patency or to lock dormant line, Starting on Fri03/21/23 at 2047 Linked Groups Order Group 1: hydrocortisone sodium succinate PF (solu-CORTEF) injection 50 mg (COMPLETED) 50 mg, Intravenous, EVERY 8 HOURS, Administer over 1-4 Minutes, First dose on Fri03/21/23 at 2100, For 3 doses, 1st order in taper Followed by hydrocortisone sodium succinate PF (solu-CORTEF) injection 50 mg (COMPLETED) 50 mg, Intravenous, 2 TIMES DAILY, Administer over 1-4 Minutes, First dose on Fri03/22/23 at 2100, For 2 doses, 2nd order in taper Followed by hydrocortisone sodium succinate PF (solu-CORTEF) injection 25 mg (CANCELED)Jump to med 25 mg, Intravenous, EVERY 12 HOURS, Administer over 1-4 Minutes, First dose on Fri03/23/23 at 2100, For 14 days, 3rd order in taper Group 2: HYDROmorphone (DILAUDID) injection 0.2 mgJump to med 0.2 mg, Intravenous, EVERY 2 HOURS PRN, moderate pain, Starting on Fri03/21/23 at 2047, IF patient unable to take oral pain medication or pain not controlled with oral analgesics. Hold IV PRN opioid dose for analgesic side effects. Notify provider to assess for uncontrolled pain or analgesic side effects. Or HYDROmorphone (DILAUDID) injection 0.4 mgJump to med 0.4 mg, Intravenous, EVERY 2 HOURS PRN, severe pain, Starting on Fri03/21/23 at 2047, IF patient unable to take oral pain medication or pain not controlled with oral analgesics. Hold IV PRN opioid dose for analgesic side effects. Notify provider to assess for uncontrolled pain or analgesic side effects. Group 3: HYDROmorphone (DILAUDID) tablet 2 mgJump to med 2 mg, Oral, EVERY 4 HOURS PRN, moderate pain, Starting on Fri03/21/23 at 2047, Hold oral PRN dose for analgesic side effects. Notify provider to assess for uncontrolled pain or analgesic side effects. Hold while on IV COMMIS CHEF or with regular IV opioid dosing. Or HYDROmorphone (DILAUDID) tablet 4 mgJump to med 4 mg, Oral, EVERY 4 HOURS PRN, severe pain, Starting on Fri03/21/23 at 2047, Hold oral PRN dose for analgesic side effects. Notify provider to assess for uncontrolled pain or analgesic side effects. Hold while on IV COMMIS CHEF or with regular IV opioid dosing. Group 4: naloxone (NARCAN) injection 0.2 mgJump to med 0.2 mg, Intravenous, EVERY 2 MIN PRN, opioid reversal, Starting on Fri03/20/23 at 1023, Administer intravenous route when available and notify [...] 2 MIN PRN, opioid reversal, Starting on Betty 03/20/23 at 1023, Administer intravenous route when available and notify [...] 2 MIN PRN, opioid reversal, Starting on Betty 03/20/23 at 1023, Administer intramuscular if an intravenous route is [...] 2 MIN PRN, opioid reversal, Starting on Fri03/20/23 at 1023, Administer intramuscular if an intravenous route is [...] not improved after 4 naloxone doses. Group 5: ondansetron (ZOFRAN ODT) ODT tab 4 mgJump to med 4 mg, Oral, EVERY 6 HOURS PRN, nausea, vomiting, Starting on Fri03/21/23 at 2047, This is Step 1 of nausea and vomiting management. If nausea not resolved in 15 minutes, go to Step 2 prochlorperazine (COMPAZINE). Do NOT administer if patient received granisetron (KYTRIL) pre-operatively. With dry hands, peel back foil backing and gently remove tablet. Do not push oral disintegrating tablet through foil backing. Administer immediately on tongue and oral disintegrating tablet dissolves in seconds, then swallow with saliva. Liquid not required. Or ondansetron (ZOFRAN) injection 4 mgJump to med 4 mg, Intravenous, EVERY 6 HOURS PRN, nausea, vomiting, Administer over 2-5 Minutes, Starting on 03/21/23 at 2047, Give IF patient unable to tolerate oral medication. This is Step 1 of nausea and vomiting management. If nausea not resolved in 15 minutes, go to Step 2 prochlorperazine (COMPAZINE). Do NOT administer if patient received granisetron (KYTRIL) pre-operatively. Irritant. Group 6: prochlorperazine (COMPAZINE) injection 10 mgJump to med 10 mg, Intravenous, EVERY 6 HOURS PRN, nausea, vomiting, Administer over 1-2 Minutes, Starting on Betty 03/20/23 at 0000, IF patient unable to tolerate oral medication. This is Step 2 of nausea and vomiting management. Give if nausea not resolved 15 minutes after giving ondansetron (ZOFRAN). Or prochlorperazine (COMPAZINE) tablet 10 mgJump to med 10 mg, Oral, EVERY 6 HOURS PRN, vomiting, Starting on Betty 03/20/23 at 0000, This is Step 2 of nausea and vomiting management. Give if nausea not resolved 15 minutes after giving ondansetron (ZOFRAN). Or prochlorperazine (COMPAZINE) suppository 25 mgJump to med 25 mg, Rectal, EVERY 12 HOURS PRN, nausea, vomiting, Starting on Betty 03/20/23 at 0000, This is Step 2 of nausea and vomiting management. Give if nausea not resolved 15 minutes after giving ondansetron (ZOFRAN). documented in this encounter Care Teams Process Eng Relationship Specialty Start Date End Date No Ref-Primary, Physician PCP - General 02/10/23 05/14/23 Car Su DO [address] [place] [address] Assigned Pain Medication Provider 02/22/23 03/21/23 documented as of this encounter
--- OUTSIDE RECORDS SUMMARY | 2023-09-17 14:37 | XMS_ITS | Encounter Summary ---
Author Name Unknown Organization [facility] Address [address] [place] [address] Care Team Providers Care Director Of Rooms Name Role Phone No Ref-Primary, Physician Primary Care Provider Car Su DO Unavailable Reason for Visit * Reason Comments Abdominal Pain * Auth/Cert (Routine) Specialty Diagnoses / Procedures Referred By Esa carvajal Referred To Contact EMERGENCY MEDICINE Diagnoses Intractable abdominal pain Crohn's disease of colon with complication (H) Intractable abdominal pain Emergency Dept [address] [place] [address] Referral ID Status Reason Start Date Expiration Date Visits Re quested Visits Authorized [id number] 1 1 Encounter Details Date Type Department Care Team (Late st Contact Info) Description 03/19/2023 5:35 PM CDT - 03/26/2023 12:37 PM CDT Hospital Encounter [place] [address] Medical Surgical [address] [place] [id number] Mona Villarreal MD [facility] [address] [place] [address] Miryam Sebastian DO [facility] [address] [address] Kai Su DO [address] [place], [place] [id number] Crohn's disease of colon with complication (H); Intractable abdominal pain Discharge Disposition: Home or Self Care Social [...] Sign Reading Time Taken Comments Blood Pressure 134/68 03/26/2023 7:52 AM CDT Pulse 81 03/26/2023 7:52 AM CDT Temperature 36.5 ??C (97.7 ??F) 03/26/2023 7:52 AM CD T Respiratory Rate 16 03/26/2023 7:52 AM CDT Oxygen Saturation 96% 03/26/2023 7:52 AM CDT Inhaled Oxygen Concentration - - Weight 70.8 kg (156 lb 1.6 oz) 03/25/2023 7:30 A M CDT Height 160 cm (5' 3) 03/20/2023 [...] Colón MD - 03/26/2023 10:04 AM CDT [facility] Hospitalist Discharge Summary Date of Admission: [...] Dr. Madison Iverson ,Colon & Rectal Surgery [id number] [place] [address], [address] [place] [id number] within 2 - 4 weeks or hospital [...] blood loss anemia - Colorectal surgery following. [place] to be secondary to an anastomotic bleed. [...] of Remicade. Keep follow up appointment at [facility] [place], colonoscopy in 5-6 [...] minutes discharging this patient. Homar Colón MD [place] [address] MEDICAL SURGICAL [address] [facility] [facility] [place] [address] Physical Exam Vital Signs: Temp: 97.7 ??F [...] Dr. Madison Iverson ,Colon & Rectal Surgery [id number] [place] [address], [address] [place] [address] within 2 - 4 weeks or hospital [...] EXAM: CT ABDOMEN PELVIS W CONTRAST LOCATION: [facility] DATE: 03/19/2023 INDICATION: Abdominal pain. Crohn's [...] Everywhere. * (S) EATING A LOW-FIBER DIET (BELARUSIAN) * Diet, Low-Fiber (Occitan) documented in this encounter Medications at Time [...] questions/paging, please contact the CRS office at [phone]. Roberta Ramirez PA-C Colon & Rectal Surgery [...] Iverson MD [facility] [address], [address] [place] [address] T: [phone] F: [phone] [email or web address] ADDENDUM: Length of stay: 5 days Indicate Y or N for the following: UTI No C diff No PNA No SSI No DVT No PE No CVA No MS No Enterocutaneous fistula No Peripheral nerve injury [...] questions/paging, please contact the CRS office at [phone]. Roberta Ramirez PA-C [facility] Colon [facility] Surgery Attending Note Patient seen and examined independently. Agree with above assessment and plan. Frequent loose stools this after noon. No further blood abd soft, incision cdi Plan Oral steroids LFD Likely discharge home tomorrow. Madison Iverson MD [facility] [address], [address] [place] [address] T: [phone] F: [phone] [email or web address] * Homar Colón MD - 03/25/2023 10:12 AM CDT [facility] Medicine Progress Note - Hospitalist Service [...] blood loss anemia - Colorectal surgery following. [place] to be secondary to an anastomotic bleed. [...] of Remicade. Keep follow up appointment at [facility] [place], colonoscopy in 5-6 months. - Avoid [...] Destination: home Homar Colón MD Hospitalist Service [facility] Securely message with AXS-One (more info) Text page via [facility] Paging/Directory Interval History Patient seen examined [...] air) Weight: 160 lbs .86 oz Nurse design lead Mayela Constitutional: Pleasant woman seen sitting up [...] NUTRITION NEEDS Estimated Energy Needs: 1512 kcals/day (Arabi St Jeor) Justification: Maintenance and Overweight Estimated [...] Suarez MD - 03/24/2023 8:38 PM CDT [facility] Hospitalist Progress Note Assessment & Plan [...] blood loss anemia - Colorectal surgery following. [place] to be secondary to an anastomotic bleed. [...] of Remicade. Keep follow up appointment at [facility] [place], colonoscopy in 5-6 months. - Avoid NSAIDS. Lactic Acidosis - Present on admission. Suspect 2/2 hypovolemia. Resolved. RCC s/p nephrectomy w/ CKD Stage III - Cr at baseline - Avoid nephrotoxins DVT Prophylaxis: Enoxaparin (Lovenox) subcutaneous is now held with bleeding. SCDs are ordered. Code Status: Full Code Expected discharge: Pending post-operative course. Ella Suarez MD FACP Hospitalist Service [facility] Securely message with AXS-One (more info) Text page via [facility] Paging/Directory Subjective Patient with one episode [...] Hortensia, per admission request. She had company ([employer]) and requested that I come visit later, but requested prayer for healing and pain relief. We shared prayer together. Plan: I and other chaplains remain available for further support. Sam Lal Freight Representative Plant Changer [facility] routine referrals *[id number] [facility] available 31/03 for emergent requests/referrals, either by paging the on-call biztalk administrator or by entering an BUSTER/STAT consult in [facility] (this will also page the on-call biztalk administrator). * Madison Iverson MD - 03/24/2023 10:53 [...] questions/paging, please contact the CRS office at [phone]. Roberta Ramirez PA-C Colon & Rectal Surgery [...] Iverson MD [facility] [address], [address] [place] [id number] T: [phone] F: [phone] [email or web address] * Subha Ball RN - 03/23/2023 [...] Suarez MD - 03/23/2023 5:00 PM CDT [facility] Hospitalist Progress Note Assessment & Plan [...] of Remicade. Keep follow up appointment at [facility] in [place], colonoscopy in 5-6 months. - Avoid NSAIDS Acute blood loss anemia - Colorectal surgery following. [place] to be secondary to an anastomotic bleed. [...] surgery. Ella Suarez MD FACP Hospitalist Service [facility] Securely message with AXS-One (more info) Text page via [email or web address] Paging/Directory Subjective Patient with blood reported from [...] Surgery Fellow [facility] [address] [address] T: [phone] F: * Ritesh Leach, PT - 03/23/2023 10:26 [...] Transfers Transfers no deficits identified Gait/Stairs (Locomotion) Winkler Level (Gait) independent Distance in Feet 35 [...] Evaluation Time PT Eval, Low Complexity Minutes (86589) 24 PT Discharge Planning PT Plan Evaluation only PT Discharge Recommendation (DC Rec) home PT Rationale for DC Rec Patient performed functional mobility with independence and good safety awarenss. Able to ambulate hallway with nursing staff. No skilled physical therapy needs identified. Good support at home Total Session Time Total Session Time (sum of timed and untimed services) 24 * Subha Ball, RN - 03/22/2023 6:36 PM CDT End [...] return of bowel function Bedside Nurse: Subha Ball, RN * Ella Suarez MD - 03/22/2023 1:01 PM CDT [facility] Hospitalist Progress Note Assessment & Plan [...] of Remicade. Keep follow up appointment at [facility] in scheduled, colonoscopy in 5-6 months. - Avoid NSAIDS Lactic Acidosis - Suspect 2/2 hypovolemia. Resolved. RCC s/p nephrectomy w/ CKD Stage III - Cr at baseline - Avoid nephrotoxins DVT Prophylaxis: Enoxaparin (Lovenox) SQ Code Status: Full Code Expected discharge: Inpatient for another 2-3 more days depending on clinical progression after surgery. Ella Suarez MD [facility] Hospital[facility] Service [facility] Securely message with AXS-One (more info) Text page via [facility] Paging/Directory Subjective Patient seen. Family at [...] Colorectal Surgery [facility] [address] [facility] [place] [address] T: [phone] F: [phone] * Subha Ball RN - 03/21/2023 6:47 PM CDT End of Shift Summary For vital signs and complete assessments, please see documentation flowsheets. Pertinent assessments: Pt A/Ox4. VSS. IV dilaudid given for abd pain. BS hypoactive. LS clear. HS regular Major Shift Events: Surgery today Treatment Plan: pain management, bowel management Bedside Nurse: Subha Ball RN * Candy Lennon APRN MANAGER RENEWABLE ENERGY - 03/21/2023 12:32 PM CDT Images from [...] EXAM: CT ABDOMEN PELVIS W CONTRAST LOCATION: [facility] DATE: 03/19/2023 ?? INDICATION: Abdominal pain. [...] and loose stools since her discharge from [facility] about 3 weeks ago for suspected Crohn's [...] dose of Remicade, follow up appointment at [facility] in [place] scheduled, colonoscopy in 5-6 months -Avoid NSAIDS -No further GI recommendations at this time. We will sign off. Please call with any concerns or questions/reconsult as needed. Discussed with Dr. Saulo Lennon, MANAGER RENEWABLE ENERGY [facility] Digestive Health Office: [phone] * Jassi Nolasco MD - 03/21/2023 9:38 AM CDT [facility] Hospitalist Progress Note Assessment & Plan [...] Nolasco MD - 03/20/2023 9:57 AM CDT [facility] Hospitalist Progress Note Assessment & Plan [...] Harris PA-C - 03/19/2023 11:35 PM CDT [facility] Admission History and Physical Examination NAME: Hortensia Buitrago : 1960 Date of Admission: 03/19/2023 Assessment & Plan Hortensia Buitrago is a 63 year old female with a PMH significant for Crohn's disease, asthma, migraines and renal cell cancer that was managed surgically with right nephrectomy in 2008 who presented toemergency room with complaints of ongoing abdominal pain [facility] [...] as well as colorectal surgery consult -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 Crohn's [...] ALT 17 AST 18 Carolin Harris PA-C [facility] Medicine March 19, 2023 Securely message with the LightPath Apps Console (learn more here) Text page via [facility] Paging/Directory Associated attestation - Kai Su [...] Communication Assessment Patient's communication style: spoken language (Occitan or Bilingual) Cognitive Cognitive/Neuro/Behavioral: WDL Living Environment: [...] arise. Laine Clemens RN Inpatient Care Coordination [facility] * Odalys Valladares RN - 03/20/2023 1:16 PM CDTAssociated Order(s): WOUND OSTOMY CONTINENCE NURSE IP CONSULT [facility] WOC Nurse Ostomy Marking and Education Data: [...] operatively Odalys Valladares RN CWOCN Contact Via [facility] Nurse ([facility]) Dept. Office Number: [phone] * Roberta Ramirez PA-C - 03/20/2023 11:52 AM CDTAssociated Order(s): COLORECTAL SURGERY IP CONSULT [facility] Colon and Rectal Surgery Consult Note [...] (on Remicade), seen at the request of Carolni Harris PA-C, presents with abdominal pain. Patient [...] EXAM: CT ABDOMEN PELVIS W CONTRAST LOCATION: [facility] DATE: 03/19/2023 INDICATION: Abdominal pain. Crohn's [...] Hortensia Buitrago as part of a shared SEED TESTER/PA visit. I personally reviewed the vital signs, [...] the patient): 03/20/23 * Candy Lennon, SUN MANAGER RENEWABLE ENERGY - 03/20/2023 7:54 AM CDTAssociated Order(s): GASTROENTEROLOGY IP CONSULT Images from the original note were not included. GASTROENTEROLOGY CONSULTATION Hortensia Buitrago [address] [place] [id number] 63 year old female Admission Date/Time: 03/19/2023 [...] decreased stool output since her discharge from [facility] about 3 weeks ago for Crohn's flare. [...] EXAM: CT ABDOMEN PELVIS W CONTRAST LOCATION: [facility] DATE: 03/19/2023 ?? INDICATION: Abdominal pain. [...] decreased stool output since her discharge from [facility] about 3 weeks ago for suspected Crohn's [...] Total time: 50 minutes [facility]andy [facility] Office: [phone] Associated attestation - Ananda Vernon MD - [...] Harmon RN - 03/19/2023 9:[address] [facility] ED Nurse Handoff Report ED Chief [...] standby. Lift room needed: No. Bariatric: No Drapery Hemmer Automatic Needed: No Isolation: No. Infection: Not Applicable. [...] Bilirubin Urine Negative Ketones Urine Negative Specific Hurst Urine 1.005 Blood Urine Negative pH Urine [...] BP Temp Temp src Pulse Resp SpO2 07/12/23 1944 (!) 140/82 -- -- 74 -- [...] Bilirubin Urine Negative Ketones Urine Negative Specific Hurst Urine 1.005 Blood Urine Negative pH Urine [...] care of Dr. Su. Impression & Plan [facility] Diagnoses: None Medical Decision Making: Patient presents [...] 2. Intractable abdominal pain R10.9 Scribe Disclosure: Doroteo Ruffin, am serving as a scribe at 6:10 PM on 03/19/2023 to document services personally performed by Mona Villarreal MD based on my observations and the provider's statements to me. 03/19/2023 Mona Villarreal MD Cheng, Wenlan, MD 03/19/23 2130 documented in this encounter Miscellaneous Notes * Pharmacy - Discharge Medication Reconciliation and Education - Blaine Hinson [facility] - 03/26/2023 11:53 AM CDT Discharge medication review for this patient is complete. [id number]-ftgu medication education was provided by the pharmacist. See [facility] for allergy information, immunization status, [...] written materials and instructions (Clinical notes from [facility]) for new medications: Yes OUTCOMES: Patient [...] LS clear, denied SOB, N/V. Abd incision PLASTICS FABRICATOR OR WELDER, no drainage, healing well. Pain at abd 02/15, give P.O dilaudid. VSS. Continent B&B. No [...] Steroid taper, monitor hgb. Bedside Nurse: LIBERTY LOUIS RN * Plan of Care - Mayela [...] changeOverall Patient Progress: no change Pertinent assessments: [facility] cares [phone]. Pt A&Ox4, VSS, c/o abdominal pain, PRN [...] incision and lap sited w/ liquid bandage, PLASTICS FABRICATOR OR WELDER. Salazar patent Major Shift Events Transferred from PACU Treatment Plan: symptom management, solu-Cortef, await bowel return and diet advancement. Bedside Nurse: Edelmira Gibson RN * Brief Op Note - Issa Bruno MD - 03/21/2023 6:52 PM CDT [facility] Brief Operative Note Pre-operative diagnosis: Crohn's disease [...] MD [facility] [phone]. ADDENDUM: PATIENT DATA Indicate Y or N: [...] assisted ileocolic resection SURGEON: Madison Iverson MD Blood Tester: Roberta Ramirez PA-C and Dr. Bruno, [facility] colorectal surgery fellow ANESTHESIA: Tap block [...] was excellent. We then lined up a [id number]-cf-tgzj functional end-to-end anastomosis. Colotomy and enterotomy were [...] want it insteadof omeprazole. Changes made to INDUCTION COORDINATION POWER ENGINEER medication list: ??? Added: None ??? Deleted: [...] Medication Sig Last Dose Taking? Auth Provider Business Operations Analyst End Date acetaminophen (TYLENOL) 650 MG CR [...] st Contact Info) Description 10/01/2023 12:45 PM BINDERY MACHINE OPERATOR Appointment [facility] [address] [place] [address] Alisa Norman PA-C [facility] [address] [place] [address] [address] [phone] documented as of this encounter Procedures Procedure [...] platelets and differential (03/26/2023 6:59 AM CDT) WBC Count 7.2 4.0 - 11.0 10e3/uL [...] Colón MD LAB - BLOOD ORDERABL ES [facility] [address] [employer] Lab (1st floor, no room number) [place] [id number], [facility] [phone] * Extra Green Top Tube (LAB USE ONLY) (03/26/2023 6:59 AM CDT) Hold Specimen [facility] 03/26/2023 8:16 AM CDT [facility] Blood STRUCTURE OF RIGHT HAND / Unknown Venipuncture / Unknown 03/26/2023 6:59 AM CDT 03/26/2023 7:07 AM CDT Mona Villarreal MD LAB - BLOOD ORDERABL ES [facility] [address] Lab (1st floor, no room number) [place] [address], [place] [phone] * (ABNORMAL) Basic metabolic panel (03/25/2023 6:38 [...] MD LAB - BLOOD ORDER NATALIIA LABORATORY [facility] [address] [facility] Lab (1st floor, no room number) [place] [address], [facility] [phone] * (ABNORMAL) CBC with platelets (03/25/2023 6:38 [...] Iverson MD LAB - BLOOD ORDERA BLES [facility] [address] Lab (1st floor, no room number) [place] [address], [facility] [phone] * (ABNORMAL) Hemoglobin (03/24/2023 9:04 PM CDT) Hemoglobin 9.2(L) 11.7 - 15.7 g/dL 03/24/2023 9:30 PM CDT [facility] Blood STRUCTURE OF LEFT UPPER LIMB / Unknown Venipuncture / Unknown 03/24/2023 9:04 PM CDT 03/24/2023 9:22 PM CDT Ella Suarez MD LAB - BLOOD ORDER NATALIIA LAB[facility]AT[facility] [address] Lab (1st floor, no room number) [place] [address], [facility] [phone] * (ABNORMAL) CBC with platelets and differential [...] LAB - BLOOD ORDER NATALIIA [facility] [address] [facility] Lab (1st floor, no room number) [place] [address], [facility] [phone] * (ABNORMAL) Basic metabolic panel (03/24/2023 6:58 [...] - 10.2 mg/dL 03/24/2023 7:51 AM CDT [facility] Glucose 96 70 - 99 mg/dL 03/24/2023 7:51 AM CDT LABORATORY GFR Estimate 62 >60 mL/min/1.7 3m2 03/24/2023 7:51 AM CDT LABORATORY Blood STRUCTURE OF LEFT UPPER LIMB / Unknown Venipuncture / Unknown 03/24/2023 6:58 AM CDT 03/24/2023 7:19 AM CDT Ella Suarez MD LAB - BLOOD ORDER NATALIIA [facility] [address] Lab (1st floor, no room number) [place] [address], [facility] [phone] * (ABNORMAL) Hemoglobin (03/23/2023 10:11 PM CDT) Hemoglobin 9.4(L) 11.7 - 15.7 g/dL 03/23/2023 10:25 PM CDT [facility] Blood STRUCTURE OF LEFT UPPER LIMB / Unknown Venipuncture / Unknown 03/23/2023 10:11 PM CDT 03/23/2023 10:22 PM CDT Ella Suarez MD LAB - BLOOD ORDER NATAILIA Performing Organization Address City/[facility]/ZIP Co de Phone Number [facility] [address] Lab (1st floor, no room number) [place] [address], [facility] [phone] * (ABNORMAL) Hemoglobin (03/23/2023 5:23 PM CDT) Hemoglobin 9.6(L) 11.7 - 15.7 g/dL 03/23/2023 5:28 PM CDT [facility] Blood STRUCTURE OF LEFT UPPER LIMB / Unknown Venipuncture / Unknown 03/23/2023 5:23 PM CDT 03/23/2023 5:25 PM CDT Madison Iverson MD LAB - BLOOD ORDERA BLES [facility] [address] Lab (1st floor, no room number) [place] [address], [facility] [phone] * Transfuse red blood cells (unit) (03/23/2023 4:18 PM CDT) Issa Bruno MD BLOOD TRANSFUSION OR DERABLES * Transfuse red blood cells (unit), 1 Units (03/23/2023 4:18 PM CDT) Issa Bruno MD BLOOD TRANSFUSION OR DERABLES * Prepare red blood cells (unit) (03/23/2023 11:32 AM CDT) Blood Component Type Red Blood Cells [facility] BLOOD BANK Product Code [id number] RH BLOO D BANK Unit Status Transfused RH BLOO D BANK Unit Number [id number] RH B LOOD BANK CROSSMATCH Compatible RH BLOOD BANK CODING SYSTEM [id number] RH BLO OD BANK ISSUE DATE AND TIME [id number] RH BLOOD BANK UNIT ABO/RH A+ RH BLOOD BANK UNIT TYPE ISBT 6200 RH BL OOD BANK 03/23/2023 11:3 2 AM CDT Issa Bruno MD BLOOD BANK PRODUCT O RDERABLES [facility] BLOOD BANK [address] [place] [address], [facility] * (ABNORMAL) CBC with platelets and differential (03/23/2023 6:07 AM CDT) WBC Count 9.8 4.0 - [...] LAB - BLOOD ORDER NATALIIA [facility] LAB[facility]AT[facility] [address] Lab (1st floor, no room number) [place] [address], [facility] [phone] * (ABNORMAL) Basic metabolic panel (03/23/2023 6:07 [...] MD LAB - BLOOD ORDER NATALIIA LABORATORY [facility] [address] Lab (1st floor, no room number) [place] [address], [facility] [phone] * (ABNORMAL) Hemoglobin (03/22/2023 4:11 PM CDT) Hemoglobin 8.8(L) 11.7 - 15.7 g/dL 03/22/2023 4:18 PM CDT [facility] Blood STRUCTURE OF LEFT UPPER LIMB / Unknown Venipuncture / Unknown 03/22/2023 4:11 PM CDT 03/22/2023 4:15 PM CDT Issa Bruno MD LAB - BLOOD ORDERABL ES [facility] [address] [facility] Lab (1st floor, no room number) [place] [address], [facility] [phone] * (ABNORMAL) CBC with platelets (03/22/2023 6:38 [...] Nolasco MD LAB - BLOO D ORDERABLES LABORATORY [facility] [address] Lab (1st floor, no room number) [place] [address], [facility] [phone] * (ABNORMAL) Basic metabolic panel (03/22/2023 6:38 AM CDT) [facility] Sodium 139 136 - 145 mmol/L [...] Nolasco MD LAB - BLOO D ORDERABLES LABORATORY [facility] [address] Lab (1st floor, no room number) [place] [id number], [facility] [phone] * (ABNORMAL) Creatinine (03/21/2023 9:28 PM CDT) Creatinine 0.99(H) 0.51 - 0.95 mg/dL 03/21/2023 9:52 PM CDT LABORATORY GFR Estimate 63 >60 mL/min/1.7 3m2 03/21/2023 9:52 PM CDT LABORATORY Blood STRUCTURE OF LEFT UPPER LIMB / Unknown Venipuncture / Unknown 03/21/2023 9:28 PM CDT 03/21/2023 9:34 PM CDT Madison Iverson MD LAB - BLOOD ORDERA BLES LABORATORY [facility] [address] [facility], no room number) [place] [address], [facility] [phone] * Surgical Pathology Exam (03/21/2023 5:39 PM CDT) Case Report Surgical Pathology Report ? Case: [id number] ? Authorizing Provider: ??Madison Iverson MD ?Collected: ? 03/21/2023 05:39 PM ? Ordering Location: ? [facility] ?? Received: ?03/21/2023 06:19 PM ? [...] Sectioning reveals no discrete lesions or masses. Gas Analyst sections are submitted. Summary of sections: A1-en face proximal margin, split sections A2-en face distal margin, split sections A9-W4-okmcezmbdegqpr terminal ileum mucosa sequentially submitted from proximal to distal every 10 cm A6-ileocecal valve A7-cecal mucosa (BRETT Green [facility]P CM) 03/27/2023 3:28 PM CDT [facility] Microscopic Description Microscopic examination was performed. Case was reviewed intradepartmentally 03/27/2023 3:28 PM CDT [facility] LABORATORY Performing Labs The technical component of this testing was completed at [facility] 03/27/2023 3:28 PM CDT [facility] LABORATORY Case Images 03/27/2023 3:28 PM CDT [facility] LABORATORY Resection STRUCTURE OF DISTAL PORTION OF ILEUM / Unknown 03/21/2023 5:39 PM CDT 03/21/2023 6:19 PM CDT Madison Iverson MD LAB - GERBER AP LABORATORY [facility] [address] (1st floor, no room number) [place] [id number], [facility] [phone] * (ABNORMAL) Glucose by meter (03/21/2023 1:38 PM CDT) GLUCOSE BY METER POCT 107(H) 70 - 99 mg/dL 03/21/2023 1:45 PM CDT LABORATORY POC Blood, Capillary BLOOD SPECIMEN / Unknown 03/21/2023 1:38 PM CDT 03/21/2023 1:45 PM CDT Mona Villarreal MD LAB - GERBER POCT LABORATORY POC [facility] [address] (1st floor, no room number) [place] [phone], [place] [phone] * Adult Type and Screen (03/20/2023 12:12 PM CDT) ABO/RH(D) A POS 03/20/2023 12:03 PM CDT RH BLOOD BANK Antibody Screen Negative Negative 03/20/2023 12:03 PM CDT RH BLOOD BANK SPECIMEN EXPIRATION DATE [id number] 03/20/2023 12:03 PM CDT RH BLOOD BANK Blood STRUCTURE OF LEFT UPPER LIMB / Unknown Venipuncture / Unknown 03/20/2023 12:12 PM CDT 03/20/2023 12:16 PM CDT Roberta Ramirez PA-C LAB - BLOOD BANK T EST ORDER RH BLOOD BANK [address] [place] [address], [facility] * Prealbumin (03/20/2023 12:12 PM CDT) Prealbumin 39 15 - 45 mg/dL 03/21/2023 12:15 PM CDT [facility] CORE/PROT/ENDO Blood STRUCTURE OF LEFT UPPER LIMB / Unknown Venipuncture / Unknown 03/20/2023 12:12 PM CDT 03/20/2023 12:16 PM CDT Roberta Ramirez PA-C LAB - BLOOD ORDERA BLES [facility] CORE/PROT/ENDO [facility] Special[facility] Core/Prot/Endo [address] [facility], Room [address] [phone] * (ABNORMAL) CBC with platelets (03/20/2023 8:06 [...] PA-C LAB - BLOOD ORDER NATALIIA LABORATORY [facility] [address] Lab (1st floor, no room number) [place] [address], [facility] [phone] * (ABNORMAL) Basic metabolic panel (03/20/2023 8:06 [...] Harris PA-C LAB - BLOOD ORDER NATALIIA [facility] [address] Lab (1st floor, no room number) [place] [address], [facility] [phone] * Lactic acid whole blood (03/19/2023 9:30 PM CDT) Lactic Acid 1.0 0.7 - 2.0 mmol/L 03/19/2023 9:38 PM CDT [facility] LABORATORY Blood BLOOD SPECIMEN / Unknown Venipuncture / Unknown 03/19/2023 9:30 PM CDT 03/19/2023 9:36 PM CDT Mona Villarreal MD LAB - BLOOD ORDERABL ES [facility] [address] Lab (1st floor, no room number) [place] [address], [facility] [phone] * CT Abdomen Pelvis w Contrast (03/19/2023 [...] EXAM: CT ABDOMEN PELVIS W CONTRAST LOCATION: [facility] DATE: 03/19/2023 INDICATION: Abdominal pain. Crohn's [...] degenerative changes of the spine. Procedure Note GuDylan MD - 03/19/2023 EXAM: CT ABDOMEN PELVIS W CONTRAST LOCATION: [facility] DATE: 03/19/2023 INDICATION: Abdominal pain. Crohn's [...] MD LAB - BLOOD ORDERABL ES LABORATORY [facility] [address] Lab (1st floor, no room number) [place] [address], [facility] [phone] * (ABNORMAL) UA with Microscopic reflex to Culture (03/19/2023 6:16 PM CDT) Color Urine Straw Colorless, Straw, Light Yellow, Yellow 03/19/2023 6:30 PM CDT LABORATORY Appearance Urine Clear Clear 03/19/20 6:30 PM CDT LABORATORY Glucose Urine Negative Negative mg/dL 03/19/2023 6:30 PM CDT LABORATORY Bilirubin Urine Negative Negative 3 6:30 PM CDT LABORATORY Ketones Urine Negative Negative mg/dL 03/19/2023 6:30 PM CDT LABORATORY Specific [place]st Urine 1.005 1.003 - 1.035 03/19/2023 6:30 PM CDT RH LABORATORY Blood Urine Negative Negative 03/19/2023 6:30 [...] MD LAB - URINE ORDERABL ES LABORATORY [facility] [address] [facility] Lab (1st floor, no room number) [place] [address], [facility] [phone] * Hepatic function panel (03/19/2023 3:30 PM [...] - BLOOD ORDERABL ES Performing Organization Address City/[facility]/ZIP Co de Phone Number [facility] [address] Lab (1st floor, no room number) [place] [address], [facility] [phone] * Extra Red Top Tube (03/19/2023 3:30 PM CDT) Hold Specimen [facility] 03/19/2023 4:47 PM CDT RH LABORATORY Blood STRUCTURE OF RIGHT UPPER LIMB / Unknown Venipuncture / Unknown 03/19/2023 3:30 PM CDT 03/19/2023 3:34 PM CDT Mona Villarreal MD LAB - BLOOD ORDERABL ES [facility] [address] Lab (1st floor, no room number) [place] [address], [facility] [phone] * Extra Blue Top Tube (03/19/2023 3:30 PM CDT) Hold Specimen [facility] 03/19/2023 4:47 PM CDT RH LABORATORY Blood STRUCTURE OF RIGHT UPPER LIMB / Unknown Venipuncture / Unknown 03/19/2023 3:30 PM CDT 03/19/2023 3:34 PM CDT Mona Villarreal MD LAB - BLOOD ORDERABL ES [facility] [address] Lab (1st floor, no room number) [place] [address], [facility] [phone] * (ABNORMAL) Basic metabolic panel (BMP) (03/19/2023 3:30 PM CDT) [facility] Sodium 138 136 - 145 mmol/L [...] Villarreal MD LAB - BLOOD ORDERABL ES [facility] [address] Lab (1st floor, no room number) [place] [address], [facility] [phone] * (ABNORMAL) CBC (platelets, no diff) (03/19/2023 [...] LAB - BLOOD ORDERABL ES RH LABORATORY [facility] [address] Lab (1st floor, no room number) [place] [address], [facility] [phone] documented in this encounter Visit Diagnoses Diagnosis [...] 1,000 mL/hr, Administer over 1 Hours, On Fri03/19/23 at 1805, For 1 dose $New Bag 03/19/2023 7:07 PM CDT 1,000 mLs 1000 mL/hr acetaminophen (TYLENOL) tablet 650 mg 650 mg, Oral, AT BEDTIME, First dose on Fri03/20/23 at 0005, DO NOT CRUSH. Formulary alternate for Tylenol CR Maximum acetaminophen dose from all sources = 75 mg/kg/day not to exceed 4 grams/day. $Given 03/20/2023 9:36 PM CDT 650 mg $Given 03/20/2023 12:20 AM CDT 650 mg acetaminophen (TYLENOL) tablet 650 mg 650 mg, Oral, EVERY 6 HOURS PRN, mild pain, other, and adjunct with moderate or severe pain or per patient request, Starting on Fri03/20/23 at 0000, Alternate with ibuprofen if ordered. Maximum acetaminophen dose from all sources = 75 mg/kg/day not to exceed 4 grams/day. $Given 03/20/2023 4:47 PM CDT 650 mg acetaminophen (TYLENOL) tablet 650 mg 650 mg, [...] $Given 03/25/2023 8:15 AM CDT 650 mg acetaminophen (TYLENOL) tablet 975 mg 975 mg, Oral, EVERY 8 HOURS, First dose on Fri03/21/23 at 2100, For 3 days, Administer for multimodal surgical pain management. Maximum acetaminophen dose from all sources = 75 mg/kg/day not to exceed 4 grams/day. $Given 03/24/2023 2:01 PM CDT 97 5 mg $Given 03/24/2023 5:39 AM CDT 975 mg $Given 03/23/2023 8:15 PM CDT 975 mg benzocaine 20% (HURRICAINE/TOPEX) 20 % spray 0.5-1 mL 0.5-1 mL (1-2 spray), Mouth/Throat, EVERY 3 HOURS PRN, sore throat, Starting on 03/22/23 at 1440 $Given 03/22/2023 3:05 PM CDT 0.5 mLs clindamycin (CLEOCIN) 900 mg in 50 mL NS intermittent infusion Routine, 900 mg, Intravenous, SEE ADMIN INSTRUCTIONS, Starting on Fri03/21/23 at 1445, Intra-Op Dose. Give every 6 hours while patient in surgery, starting 6 hours after pre-op dose., Indications: Perioperative Pharmacoprophylaxis, Pre-procedure $Given 03/21/2023 3:10 PM CDT 900 mg 100 mL/hr CT scan flush Intravenous, 100 mL, ONCE, On Fri03/19/23 at 2035, For 1 dose, This entry is for use by Radiology to intermittently used as a flush in patients receiving a CT scan. $Given 03/19/2023 8:31 PM CDT 58 mLs cyanocobalamin injection 1,000 mcg 1,000 mcg, Intramuscular, ONCE, On Betty 03/20/23 at 1400, For 1 dose $Given 03/20/2023 2:03 PM CDT 1,000 mcg enoxaparin ANTICOAGULANT (LOVENOX) injection 40 mg 40 [...] $Given 03/25/2023 8:15 AM CDT 40 mg fentaNYL (PF) (SUBLIMAZE) injection 50 mcg 50 mcg, Intravenous, EVERY 5 MIN PRN, severe pain, Give fentaNYL (SUBLIMAZE) first if HYDROmorphone (DILAUDID) also ordered., Starting on Fri03/21/23 at 1841, Administer fentaNYL (SUBLIMAZE) for acute pain control. Move to HYDROmorphone (DILAUDID): - IF patient has received up to 200 mcg of fentaNYL (SUBLIMAZE), OR - IF patient has received 2 doses of fentaNYL (SUBLIMAZE) AND continues to have severe pain (pain score greater than or equal to seven (7) or is unable to participate in post op recovery due to pain. Wait 5 minutes AFTER last fentaNYL (SUBLIMAZE) dose before administering HYDROmorphone (DILADUDID). Postop Anesthesia Phase I only. Notify Provider to assess for uncontrolled pain or analgesic side effects. DO NOT revert back to fentanyl (SUBLIMAZE) after administering HYDROmorphone (DILAUDID)., PACU $Given 03/21/2023 7:51 PM CDT 50 mcg $Given 03/21/2023 7:43 PM CDT 50 mcg $Given 03/21/2023 7:13 PM CDT 50 mcg hydrocortisone sodium succinate PF (solu-CORTEF) injection 25 mg 25 mg, Intravenous, EVERY 12 HOURS, Administer over 1-4 Minutes, First dose on Fri03/23/23 at 2100, For 14 days, 3rd order in taper $Given 03/24/2023 9:48 AM CDT 25 mg $Given 03/23/2023 9:13 PM CDT 25 mg hydrocortisone sodium succinate PF (solu-CORTEF) injection 50 mg 50 mg, Intravenous, EVERY 8 HOURS, Administer over 1-4 Minutes, First dose on Fri03/21/23 at 2100, For 3 doses, 1st order in taper $Given 03/22/2023 1:52 PM CDT 50 mg $Given 03/22/2023 5:04 AM CDT 50 mg $Given 03/21/2023 10:06 PM CDT 50 mg hydrocortisone sodium succinate PF (solu-CORTEF) injection 50 mg 50 mg, Intravenous, 2 TIMES DAILY, Administer over 1-4 Minutes, First dose on Fri03/22/23 at 2100, For 2 doses, 2nd order in taper $Given 03/23/2023 9:05 AM CDT 50 mg $Given 03/22/2023 10:32 PM CDT 50 mg HYDROmorphone (DILAUDID) injection 0.2 mg 0.2 mg, Intravenous, EVERY 2 HOURS PRN, moderate pain, IF patient cannot take oral opioid OR IF pain not managed with non-pharmacological, non-opioid, or oral opioid interventions if ordered, Starting on Betty 03/20/23 at 0000, May use concomitant with non-opioid analgesics. $Given 03/21/2023 12:13 PM CDT 0.2 mg $Given 03/21/2023 10:12 AM CDT 0.2 mg $Given 03/21/2023 7:32 AM CDT 0.2 mg HYDROmorphone (DILAUDID) injection 0.2 mg 0.2 [...] 5:05 AM CDT 0.4 mg HYDROmorphone (DILAUDID) injection 1 mg 1 mg, Intravenous, ONCE, On Fri03/19/23 at 2125, For 1 dose $Given 03/19/2023 9:30 PM CDT 1 mg HYDROmorphone (DILAUDID) tablet 2 mg 2 mg, Oral, EVERY 4 HOURS PRN, moderate pain, Starting on Fri03/21/23 at 2047, Hold oral PRN dose for analgesic side effects. Notify provider to assess for uncontrolled pain or analgesic side effects. Hold while on IV BOTTLE CAPPING MACHINE OPERATOR or with regular IV opioid dosing. $Given [...] analgesic side effects. Hold while on IV BOTTLE CAPPING MACHINE OPERATOR or with regular IV opioid dosing. $Given 03/26/2023 6:19 AM CDT 4 mg $Given 03/26/2023 1:59 AM CDT 4 mg $Given 03/23/2023 4:48 AM CDT 4 mg HYDROmorphone (PF) (DILAUDID) injection 0.5 mg 0.5 mg, Intravenous, EVERY 30 MIN PRN, moderate pain, severe pain, Starting on Fri03/19/23 at 1801, For 3 doses, Notify the provider to assess for uncontrolled pain or analgesic side effects. Hold while on IV BOTTLE CAPPING MACHINE OPERATOR or with regular IV opioid dosing. $Given 03/19/2023 7:07 PM CDT 0.5 mg iopamidol (ISOVUE-370) solution 500 mL 500 mL, Intravenous, ONCE, On Fri03/19/23 at 2035, For 1 dose $Given 03/19/2023 8:31 PM CDT 71 mLs lactated ringers infusion at 75 mL/hr, Intravenous, CONTINUOUS, Change to saline lock when well tolerated., Starting on Fri03/21/23 at 2100, Until Fri03/26/23 at 1437 Rate/Dose Verify 03/24/2023 4:59 PM CDT 75 mL/hr Rate/Dose Verify 03/24/2023 2:00 PM CDT 75 mL/h r $New Bag 03/23/2023 8:48 PM CDT 75 mL/hr methocarbamol (ROBAXIN) tablet 500 mg 500 mg, Oral, 4 TIMES DAILY PRN, muscle spasms, Starting on Fri03/20/23 at 0000 $Given 03/26/2023 9:34 AM CDT 500 mg $Given 03/26/2023 12:20 AM CDT 500 mg $Given 03/24/2023 10:29 PM CDT 500 mg methylPREDNISolone sodium succinate (solu-MEDROL) injection 20 mg 20 mg, Intravenous, EVERY 8 HOURS, First dose on Fri03/20/23 at 0805, Doses greater than or equal to 1000 mg administer over 60 minutes Doses greater than or equal to 500 mg administer over 30-60 minutes Doses greater than or equal to 250 mg administer over 15-30 minutes Doses less than or equal to 125 mg IVP over 3-5 minutes $Given 03/21/2023 8:39 AM CDT 20 mg $Given 03/20/2023 11:58 PM CDT 20 mg $Given 03/20/2023 4:45 PM CDT 20 mg montelukast (SINGULAIR) tablet 10 mg 10 [...] ODT tab 4 mg 4 mg, Oral, ONCE, On Fri03/19/23 at 1520, For 1 dose, With dry hands, peel back foil backing and gently remove tablet. Do not push oral disintegrating tablet through foil backing. Administer immediately on tongue and oral disintegrating tablet dissolves in seconds, then swallow with saliva. Liquid not required. $Given 03/19/2023 3: 25 PM CDT 4 mg ondansetron (ZOFRAN ODT) ODT tab 4 [...] injection 4 mg 4 mg, Intravenous, EVERY 30 MIN PRN, nausea, vomiting, Administer over 2-5 Minutes, Starting on Fri03/19/23 at 1801, For 3 doses, May repeat in 30 minutes as needed, up to 3 doses. Irritant. $Given 03/19/2023 7:06 PM CDT 4 mg ondansetron (ZOFRAN) injection 4 mg 4 mg, Intravenous, EVERY 6 HOURS PRN, nausea, vomiting, Administer over 2-5 Minutes, Starting on Fri03/20/23 at 0000, Give IF patient unable to tolerate oral medication. This is Step 1 of nausea and vomiting management. If nausea not resolved in 15 minutes, go to Step 2 prochlorperazine (COMPAZINE). Irritant. $Given 03/20/2023 3:46 PM CDT 4 mg $Given 03/20/2023 9:35 AM CDT 4 mg ondansetron (ZOFRAN) injection [...] $Given 03/21/2023 9:24 PM CDT 4 mg polyethylene glycol (MIRALAX) Packet 17 g 17 g, Oral, DAILY, First dose on Betty 03/20/23 at 0800, 1 Packet = 17 grams. Mix each gram with at least 1/2 ounce (15 mL) of water - 8 ounces for 17 g dose, 4 ounces for 8.5 g dose, 2 ounces for 4 g dose. Follow with the same volume of water. Hold for loose stools unless being administered as part of a bowel prep regimen or bowel clean out. $Given 03/20/2023 8:08 AM CDT 17 g polyethylene glycol (MIRALAX) powder 238 g 238 g, Oral, ONCE, On Fri03/20/23 at 1100, For 1 dose, Mix 238 grams with 64 ounces of lemonade or Powerade/Gatorade until dissolved. Patient to drink one 8-ounce glass every 15 minutes until solution is completed (total of 1920 mL $Given 03/20/2023 11:58 AM CDT 238 g predniSONE (DELTASONE) tablet 10 mg 10 mg, Oral, DAILY, First dose on Fri03/24/23 at 1700 $Given 03/26/2023 9:22 AM CDT 10 mg $Given 03/25/2023 8:15 AM CDT 10 mg $Given 03/24/2023 4:55 PM CDT 10 mg prochlorperazine (COMPAZINE) injection 10 mg 10 mg, Intravenous, EVERY 6 HOURS PRN, nausea, vomiting, Administer over 1-2 Minutes, Starting on Fri03/20/23 at 0000, IF patient unable to tolerate oral medication. This is Step 2 of nausea and vomiting management. Give if nausea not resolved 15 minutes after giving ondansetron (ZOFRAN). $Given 03/20/2023 8:56 PM CDT 10 mg prochlorperazine (COMPAZINE) suppository 25 mg 25 mg, Rectal, EVERY 12 HOURS PRN, nausea, vomiting, Starting on Fri03/20/23 at 0000, This is Step 2 of nausea and vomiting management. Give if nausea not resolved 15 minutes after giving ondansetron (ZOFRAN). prochlorperazine (COMPAZINE) tablet 10 mg 10 mg, Oral, EVERY 6 HOURS PRN, vomiting, Starting on Fri03/20/23 at 0000, This is Step 2 of nausea and vomiting management. Give if nausea not resolved 15 minutes after giving ondansetron (ZOFRAN). scopolamine (TRANSDERM) 72 hr patch 1 patch 1 patch, Transdermal, ONCE, Administer over 24 Hours, On Fri03/21/23 at 1430, For 1 dose, Apply patch to skin, behind ear. Place in Pre-Op. Remove patch after 24 hours. Each 1.5 mg patch delivers 1 mg of scopolamine. Reminder: Remove previous patch before applying new patch., Pre-procedure $Patch/Med Applied 03/21/2023 2:30 PM CDT 1 patch Behind Left Ear senna-docusate (SENOKOT-S/PERICOLACE) 8.6-50 MG per tablet 1 tablet 1 tablet, Oral, 2 TIMES DAILY, First dose on Fri03/20/23 at 0800, If no bowel movement in 24 hours, increase to 2 tablets by mouth. Hold for loose stools. $Given 03/20/2023 8:08 AM CDT 1 tablet sodium chloride (PF) 0.9% PF flush 3 mL 3 mL, Intracatheter, EVERY 8 HOURS, First dose on Fri03/21/23 at 2100, to lock peripheral IV dormant line $Given 03/23/2023 8:51 PM CDT 3 mLs $Given 03/22/2023 10:35 PM CDT 3 mLs sodium chloride 0.9% infusion at 75 mL/hr, Intravenous, CONTINUOUS, Starting on Betty 03/20/23 at 0005, Until 03/22/23 at 1308 Restarted 03/21/2023 3:18 PM CDT Rate/Dose Change 03/21/2023 10:12 AM CDT 75 mL/ hr $New Bag 03/20/2023 11:58 PM CDT 100 mL/hr traZODone (DESYREL) tablet 200 mg 200 [...] Mayela Fung RN)1720 ($Given - Provider: Candy Michel, IFRAH) 0619 ($Given - Provider: Stephanie Chawla, IFRAH)0649 (Canceled Entry - Provider: Stephanie Chawla RN) hydrocortisone sodium succinate PF (solu-CORTEF) injection [...] 2203 ($Given - Provider: Liberty Louis RN) 213 ($Given - Provider: Candy Michel RN) predniSONE (DELTASONE) tablet 10 mg 10 mg, Oral, DAILY, First dose on Fri03/24/23 at 1700 1655 ($Given - Provider: Liberty Luois RN) 0815 ($Given - Provider: Mayela Fung RN) 0922 ($Given - Provider: Mayela Fung RN) sodium chloride (PF) 0.9% PF flush 3 mL 3 mL, Intracatheter, EVERY 8 HOURS, First dose on Fri03/21/23 at 2100, to lock peripheral IV dormant line 0403 (Not Given - Provider: Carmella Conway RN - Reason: IV Infusing)1352 (Not Given - Provider: Mayela Fung RN - Reason: IV Infusing)2033 (Not Given - Provider: Liberty Louis RN - Reason: IV Infusing) 0400 (Not Given - Provider: Ingrid Jeter RN - Reason: No IV Access)1301 (Not Given - Provider: Mayela Fung RN - Reason: Loss of IV access)2136 (Not Given - Provider: Candy Michel RN - Reason: No IV Access) 0913 (Not Given - Provider: Mayela Fung RN - Reason: No IV Access) traZODone (DESYREL) tablet 200 mg 200 mg, Oral, AT BEDTIME, First dose on Fri03/20/23 at 0005 2203 ($Given - Provider: Liberty Louis RN) 213 ($Given - Provider: Candy Michel RN) Continuous Medication Order 03/24/2023 03/25/2023 03/26/2023 lactated ringers infusion at 75 mL/hr, Intravenous, CONTINUOUS, Change to saline lock when well tolerated., Starting on Fri03/21/23 at 2100, Until Fri03/26/23 at 1437 1400 (Rate/Dose Verify - Provider: Mayela Fung RN)1659 (Rate/Dose Verify - Provider: Liberty Louis, RN)2100 (Stopped - Provider: Liberty Louis, RN) PRN Medication Order 03/24/2023 03/25/2023 03/26/2023 [...] analgesic side effects. Hold while on IV BOTTLE CAPPING MACHINE OPERATOR or with regular IV opioid dosing. 0154 ($Given - Provider: Carmella Conway RN)0959 ($Given - Provider: Mayela Fung RN)1952 ($Given - Provider: Liberty Louis RN) 1410 ($Given - Provider: Mayela Fung RN)2138 ($Given - Provider: Candy Michel RN) 0159 (See Alternative - Provider: Stephanie Chawla, IFRAH)0619 (See Alternative - Provider: Stephanie Chawla, IFRAH) HYDROmorphone (DILAUDID) tablet 4 mg(Linked Group 3) 4 mg, Oral, EVERY 4 HOURS PRN, severe pain, Starting on Fri03/21/23 at 2046, Hold oral PRN dose for analgesic side effects. Notify provider to assess for uncontrolled pain or analgesic side effects. Hold while on IV BOTTLE CAPPING MACHINE OPERATOR or with regular IV opioid dosing. 0154 (See Alternative - Provider: Carmella Conway RN)0959 (See Alternative - Provider: Mayela Fung RN)1952 (See Alternative - Provider: Liberty Louis RN) 1410 (See Alternative - Provider: Mayela Fung RN)2138 (See Alternative - Provider: Candy Michel RN) 015 ($Given - Provider: Stephanie Chawla, IFRAH)0619 ($Given - Provider: Stephanie Chawla, IFRAH) lidocaine (LMX4) cream Topical, EVERY 1 HOUR [...] with VAD insertion, Starting on Fri03/21/23 at 2047, MAX dose 1 mL subcutaneous OR intradermal [...] Oral, AT BEDTIME PRN, sleep, Starting on Betty 03/20/23 at 0000, Do not give unless at least 6 hours of uninterrupted sleep is expected. methocarbamol (ROBAXIN) tablet 500 mg 500 mg, Oral, 4 TIMES DAILY PRN, muscle spasms, Starting on Fri03/20/23 at 0000 2229 ($Given - Provider: Liberty Louis, IFRAH) 0020 ($Given - Provider: Stephanie Chawla RN)0934 ($Given - Provider: Mayela Fung RN) naloxone (NARCAN) injection 0.2 mg(Linked Group 4) [...] lock dormant line, Starting on Fri03/21/23 at 2046 Linked Groups Order Group 1: hydrocortisone sodium [...] analgesic side effects. Hold while on IV BOTTLE CAPPING MACHINE OPERATOR or with regular IV opioid dosing. Or HYDROmorphone (DILAUDID) tablet 4 mgJump to med 4 mg, Oral, EVERY 4 HOURS PRN, severe pain, Starting on Fri03/21/23 at 2046, Hold oral PRN dose for analgesic side effects. Notify provider to assess for uncontrolled pain or analgesic side effects. Hold while on IV BOTTLE CAPPING MACHINE OPERATOR or with regular IV opioid dosing. Group [...] (ZOFRAN). documented in this encounter Care Teams Director Of Rooms Relationship Specialty Start Date End Date No Ref-Primary, Physician PCP - General 02/10/23 05/14/23 Car Su DO [address] [place] [address] Assigned Pain Medication Provider 02/22/23 03/21/23 documented as of this encounter
--- OUTSIDE RECORDS SUMMARY | 2023-09-17 14:38 | XMS_ITS | Encounter Summary ---
Author Name Unknown Organization [facility] Address [address] [place] [id number] Care Team Providers Care Steel Heater Name Role Phone No Ref-Primary, Physician Primary Care Provider Car Su Aidan DO Unavailable Reason for Visit * Reason Comments Abdominal Pain * Auth/Cert (Routine) Specialty Diagnoses / Procedures Referred By Esa carvajal Referred To Contact Pediatrics Diagnoses RLQ abdominal pain Partial small bowel obstruction (H) RLQ abdominal pain Pediatrics [address] [place] [address] Referral ID Status Reason Start Date Expiration Date Visits Re quested Visits Authorized [id number] 1 1 Encounter Details Date Type Department Care Team (Late st Contact Info) Description 02/10/2023 9:11 PM CDT - 02/23/2023 12:45 PM CDT Hospital Encounter [facility] Pediatric [address] [place] [address] Philipp Schneider DO [facility] [address] [place] [id number] Lukasz Weaver MD HOSPITALIST [address] [place], [place] [id number] IBD (inflammatory bowel disease) (Primary Dx); RLQ abdominal pain; Partial small bowel obstruction (H); Nausea Discharge Disposition: Home or Self Care Social [...] suspected to have Coronavirus/COVID-19? No / Unsure 02/10/2023 6:46 PM CDT documented as of this encounter Last Filed Vital Signs Vital Sign Reading Time Taken Comments Blood Pressure 125/82 02/23/2023 8:21 AM CDT Pulse 83 02/23/2023 8:21 AM CDT Temperature 36.6 ??C (97.9 ??F) 02/23/2023 8:21 AM CD T Respiratory Rate 18 02/23/2023 8:21 AM CDT Oxygen Saturation 99% 02/23/2023 8:21 AM CDT Inhaled Oxygen Concentration - - Weight 64.7 kg (142 lb 11.2 oz) 02/21/2023 7:59 AM CDT Height 160 cm (5' 3) 02/11/2023 12:52 AM CDT Body Mass Index 25.28 02/11/2023 12:52 AM CDT documented in this encounter Discharge Summaries * Eva Hammond DO - 02/23/2023 9:26 AM CDT [facility] Hospitalist Discharge Summary Date of Admission: 02/10/2023 Date of Discharge: 02/23/2023 Discharging Provider: Eva Hammond DO Discharge Service: Hospitalist Service Discharge Diagnoses Partial SBO, resolved Recent dx Crohns with evidence of ileal stricture. Leukocytosis, thought to be demargination primarily related to steroids, ongoing but stable FRANCISCO Moderate Protein-Calorie Malnutrition GERD MDD Insomnia Clinically Significant Risk Factors # Overweight: Estimated body mass index is 25.28 kg/m?? as calculated from the following: Height as of this encounter: 1.6 m (5' 3). Weight as of this encounter: 64.7 kg (142 lb 11.2 oz). # Moderate Malnutrition: based on nutrition assessment Follow-ups Needed After Discharge Follow-up Appointments Follow-up and recommended labs and tests Follow up with primary care provider, Physician No Ref-Primary, within 7 days for hospital follow- up. IBD clinic follow up within 2-4 wks. Discharge Disposition Discharged to home Condition at discharge: Stable Hospital Course Ms. Hortensia Buitrago is a 62 year old female??with hx Crohn's disease diagnosed early this year, asthma, migraines and renal cell cancer that was managed surgically with right nephrectomy in 2008 who presented to emergency room with diarrhea, nausea, and abdominal pain. ??Working dx is Crohn's disease, unclear whether acutely inflammed v scarring causing partial small bowel obstruction.GI following while inpatient and recommended a steroid taper and close [facility] and IBD clinic follow. Patient understood and agreed to the plan. All questions were answered with plan as outlined below. ?? Partial SBO, resolved. This appears to be due to the Crohns' associated areas of small intestinal narrowing. Recent dx Crohns with evidence of ileal stricture. It is not fully clear to what degree the stricture is still inflammatory (and reversible) v whether it is scar (and irreversible). Pain is improved after initiation of Remicade, but no change yet regarding the stool output, etc. Leukocytosis, thought to be demargination primarily related to steroids, ongoing but stable She presented to emergency room with diarrhea, nausea, and abdominal pain. Ms. Buitrago was admitted and initiated on IV solumedrol and had been improving when she transitioned to oral prednisone on 02/14. Following the discontinuation of IV steroids, she developed increased post prandial abd pain, nausea, decreased gas and no BM since Friday. GI signed off Wednesday 02/14, but re-consulted on 02/16. On 02/17 she was again started on IV methylprednisolone. CRS was included in the evaluation on 02/17 and pt was seen by Dr. Snowden. On 02/18, started on Remicade and appears to have tolerated that well. 02/22 Pain was improved, she had had flatus and 2 small BMs in the last 24 hours. Had some gas pain and reported symptoms of GERD on interview. Of note, colonoscopy completed through [facility] evidently showed a distal ileal stricture due to scar. This was also seen on CT scan dated 02/10/2023. CT scan on 02/20 - Several segments of luminal narrowing and mucosal hyperenhancement in the distal ileum suggest acute on chronic Crohn's ileitis, apparent narrowed short segments in the distal sigmoid colon, no SBO -GI following - transitioned to PO steroids, taper down by 10mg/wk, until at 20mg, then down by 5mg per wk. - Received remicade on 02/18, outpatient infusion already scheduled - PRN suppository - Colorectal surgery with no surgery planned at this time. -Low Fiber diet -PRN robaxin for pain -PRN zofran for nausea -bowel regimen with miralax, senna and suppository - titrate to BMs daily or every other day ?? FRANCISCO, Probably due to dehydration on admission; baseline creat is 0.9. -outpatient BMP in follow up ?? Moderate Protein-Calorie Malnutrition ?? 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 MDD - EMBOSSER OPERATOR nortriptyline ?? Insomnia - EMBOSSER OPERATOR trazodone Consultations This Hospital Stay GASTROENTEROLOGY IP CONSULT SPIRITUAL HEALTH SERVICES IP CONSULT GASTROENTEROLOGY IP CONSULT COLORECTAL SURGERY IP CONSULT NUTRITION SERVICES ADULT IP CONSULT SPIRITUAL HEALTH SERVICES IP CONSULT Code Status Full Code Time Spent on this Encounter I, Eva Hammond DO, personally saw the patient today and spent greater than 30 minutes discharging this patient. Eva Hammond DO [facility] [address] [facility] [address] Physical Exam Vital Signs: Temp: 97.9 ??F (36.6 ??C) Temp src: Oral BP: 125/82 Pulse: 83 Resp: 18 SpO2: 99 % O2 Device: None (Room air) Weight: 142 lbs 11.2 oz Constitutional:??awake,??alert??and cooperative HEENT:??normocepalic, atramatic Respiratory:??no increased work of breathing,??good air exchange??and clear to auscultation Cardiovascular:??regular rate and rhythm??and no murmur noted GI: soft and non tender, slightly distended to abdomen. No rebound tenderness Skin:??no rashes or lesions on exposed skin Neurologic:??alert, oriented, no focal deficits noted Primary Care Physician Physician No Ref-Primary Discharge Orders Basic metabolic panel Reason for your hospital stay IBD flare Partial SBO. This appears to be due to the Crohns' associated areas of small intestinal narrowing. Recent dx Crohns with evidence of ileal stricture Follow-up and recommended labs and tests Follow up with primary care provider, Physician No Ref-Primary, within 7 days for hospital follow- up. IBD clinic follow up within 2-4 wks. Activity Your activity upon discharge: activity as tolerated Miscellaneous DME Order DME Documentation: Describe the reason for need to support medical necessity: IBD, chronic chrons with stricture causing intermittent abdominal pain and cramping. I, the undersigned, certify that the above prescribed supplies are medically necessary for this patient and is both reasonable and necessary in reference to accepted standards of medical and necessary in reference to accepted standards of medical practice in the treatment of this patient's condition and is not prescribed as a convenience. Diet Follow this diet upon discharge: Orders Placed This Encounter Snacks/Supplements Adult: Ensure Enlive; Between Meals Low Fiber Diet Significant Results and Procedures Most Recent 3 CBC's: Recent Labs Lab Test 02/22/23 0649 02/21/23 0643 02/19/23 0522 WBC 13.5* 12.1* 8.2 HGB 12.5 12.5 11.7 MCV 88 88 89 PLT 244 238 222 Most Recent 3 BMP's: Recent Labs Lab Test 02/23/23 0648 02/22/23 0649 02/21/23 0643 02/20/23 0658 NA -- 140 139 138 POTASSIUM 4.0 4.8 4.8 4.4 CHLORIDE -- 102 104 104 CO2 -- 30* 28 25 BUN -- 20.2 14.0 14.8 CR -- 1.10* 1.09* 1.06* ANIONGAP -- 8 7 9 DAJA -- 9.2 9.1 9.0 GLC -- 91 116* 154* Most Recent 2 LFT's: Recent Labs Lab Test 02/17/23 0721 02/11/23 0700 AST 10 13 ALT 15 8* ALKPHOS 57 68 BILITOTAL 0.4 0.2 7-Day Micro Results No results found for the last 168 hours. , Results for orders placed or performed during the hospital encounter of 02/10/23 CT Abdomen Pelvis w Contrast Narrative EXAM: CT ABDOMEN PELVIS W CONTRAST LOCATION: [facility] DATE/TIME: 02/10/2023 10:57 PM CDT INDICATION: RLQ pain; Crohn's. COMPARISON: None. TECHNIQUE: CT scan of the abdomen and pelvis was performed following injection of IV contrast. Multiplanar reformats were obtained. Dose reduction techniques were used. CONTRAST: 75 mL Isovue 370 FINDINGS: LOWER CHEST: Normal. HEPATOBILIARY: The gallbladder is absent. PANCREAS: Normal. SPLEEN: Normal. ADRENAL GLANDS: Normal. KIDNEYS/BLADDER: The right kidney is absent. The left kidney is unremarkable. BOWEL: There are several narrowed segments of ileum with resulting small bowel dilatation proximally. No definite active inflammatory changes. There is no free intraperitoneal gas. Trace amount of free pelvic fluid. LYMPH NODES: Normal. VASCULATURE: Atherosclerotic calcification of the aorta and its branches. No aneurysm. PELVIC ORGANS: The uterus is absent. There is no adnexal mass. MUSCULOSKELETAL: Degenerative disease in the spine. Impression IMPRESSION: 1. There are segments of narrowed distal small bowel causing a partial small bowel obstruction. No definite active inflammation. No abscess formation. US Lower Extremity Venous Duplex Right Narrative VENOUS ULTRASOUND RIGHT LOWER EXTREMITY 02/17/2023 2:32 PM HISTORY: Pain without obvious swelling. Question of deep vein thrombosis (DVT) COMPARISON: None. Technique: Color Doppler and spectral waveform analysis performed throughout the deep veins of the right lower extremity. FINDINGS: The right common femoral, proximal greater saphenous, femoral, and popliteal veins demonstrate normal blood flow, compression, and augmentation. Posterior tibial and peroneal veins are compressible. Contralateral left common femoral vein is patent. Impression IMPRESSION: Negative for DVT in the right lower extremity. MAIKEL PATEL MD XR Abdomen 2 Views Narrative ABDOMEN TWO VIEWS 02/17/2023 1:04 PM HISTORY: Admit with partial small bowel obstruction re Crohn's, recurrent symptoms. Evaluate for obstruction vs ileus. COMPARISON: CT abdomen and pelvis on 02/10/2023. Impression IMPRESSION: Upright and supine views of the abdomen and pelvis were obtained. Nonobstructive bowel gas pattern. No free peritoneal or portal venous gas. Surgical clips in the right upper quadrant and right mid abdomen. Multiple pelvic phleboliths. QUETA MCLEOD MD XR Gastrografin Challenge Narrative XR GASTROGRAFIN CHALLENGE 02/17/2023 9:45 PM HISTORY: Persistent SBO COMPARISON: Same date abdominal radiograph, CT abdomen/pelvis 02/10/2023 Impression IMPRESSION: Mildly dilated distal small bowel, similar to prior CT scan same day radiograph. Administered oral contrast reached the colon by 8 hours. Cholecystectomy. Multiple pelvic phleboliths. Bones are unchanged. MAIKEL GOODEN MD SYSTEM ID: [id number] CT Abdomen Pelvis w Contrast Narrative CT ABDOMEN AND PELVIS WITH CONTRAST 02/20/2023 11:36 AM CLINICAL HISTORY: Abdominal pain. TECHNIQUE: CT scan of the abdomen and pelvis was performed following injection of IV contrast. Multiplanar reformats were obtained. Dose reduction techniques were used. CONTRAST: 58mL Isovue-370 COMPARISON: CT of the abdomen and pelvis performed 02/10/2023. FINDINGS: LOWER CHEST: Small calcified granuloma in the right lower lobe. HEPATOBILIARY: The gallbladder is not seen, and is likely surgically absent. No hepatic masses are seen. PANCREAS: Normal. SPLEEN: Normal. ADRENAL GLANDS: Normal. KIDNEYS/BLADDER: Right nephrectomy. Left kidney is unremarkable. No hydronephrosis. BOWEL: Several narrowed segments of distal ileum demonstrate mucosal hyperenhancement. These overall have a similar appearance to the previous exam (for example, series 3 image 160). Short segments of apparent narrowing in the distal sigmoid colon were not as well seen on the previous exam, but also likely unchanged with no convincing associated mucosal hyperenhancement. No evidence for associated bowel obstruction. The appendix is not visualized, however, there are no secondary signs of appendicitis. PELVIC ORGANS: Hysterectomy. No free fluid in the pelvis. LYMPH NODES: No enlarged lymph nodes are identified in the abdomen or pelvis. VASCULATURE: Mild atherosclerotic aortoiliac calcification. ADDITIONAL FINDINGS: Degenerative changes in the visualized thoracolumbar spine. MUSCULOSKELETAL: Unremarkable. Impression IMPRESSION: 1. Several segments of luminal narrowing and mucosal hyperenhancement in the distal ileum suggest acute on chronic Crohn's ileitis. 2. There are also apparent narrowed short segments in the distal sigmoid colon. 3. No evidence for associated bowel obstruction. JOAQUÍN LUNA MD Discharge Medications Current Discharge Medication List START taking these medications Details bisacodyl (DULCOLAX) [address] 1 suppository (10 mg) rectally 2 times daily as neededfor constipation Qty: 10 suppository, Refills: 1 Associated Diagnoses: RLQ abdominal pain; Partial small bowel obstruction (H) methocarbamol (ROBAXIN) 500 MG tablet Take 1 tablet (500 mg) by mouth 4 times daily as needed for muscle spasms Qty: 15 tablet, Refills: 1 Associated Diagnoses: RLQ abdominal pain; Partial small bowel obstruction (H); IBD (inflammatory bowel disease); Nausea !! ondansetron (ZOFRAN ODT) 4 MG ODT tab [...] abdominal pain; Partial small bowel obstruction (H) !! - Potential duplicate medications found. Please discuss with provider. CONTINUE these medications which have CHANGED Details !! predniSONE (DELTASONE) 10 MG tablet Take 4 tablets (40 mg) by mouth daily for 3 days, THEN 3 tablets (30 mg) daily for 7 days, THEN 2 tablets (20 mg) daily for 7 days. Qty: 47 tablet, Refills: 0 Associated Diagnoses: IBD (inflammatory bowel disease) !! predniSONE (DELTASONE) 5 MG tablet Take 3 tablets (15 mg) by mouth daily for 7 days, THEN 2 tablets (10 mg) daily for 7 days, THEN 1 tablet (5 mg) daily for 7 days. Qty: 42 tablet, Refills: 0 Associated Diagnoses: IBD (inflammatory bowel disease) !! - Potential duplicate medications found. Please discuss with provider. CONTINUE these medications which have NOT CHANGED Details acetaminophen (TYLENOL) 650 MG CR tablet Take 650 mg by mouth At Bedtime albuterol (PROAIR HFA/PROVENTIL HFA/VENTOLIN HFA) 108 (90 Base) MCG/ACT inhaler Inhale 2 puffs intothe lungs every 6 hours as needed for shortness of breath, wheezing or cough esomeprazole (NEXIUM) [address] capsule Take 40 mg by mouth 2 times daily (before meals) Take 30-60 minutes before eating. famotidine (PEPCID) 40 MG tablet Take 40 mg by mouth At Bedtime montelukast (SINGULAIR) 10 MG tablet Take 10 mg by mouth At Bedtime nortriptyline (PAMELOR) 25 MG capsule Take 25 mg by mouth At Bedtime !! ondansetron (ZOFRAN ODT) 4 MG ODT tab Take 4-8 mg by mouth every 8 hours as needed for nausea traZODone (DESYREL) 100 MG tablet Take 200 mg by mouth At Bedtime !! - Potential duplicate medications found. Please discuss with provider. Allergies Allergies Allergen Reactions ??? Latex Hives ??? Oxycodone Anaphylaxis, Hives and Swelling Throat swelling, per pt ??? Penicillin G Anaphylaxis ??? Sumatriptan Palpitations ??? Aspirin Nausea and Vomiting ??? Demerol Hcl [Meperidine] Nausea and Vomiting N/V ??? Percocet [Oxycodone-Acetaminophen] Nausea and Vomiting N/V ??? Codeine Nausea and Vomiting ??? Mold documented in this encounter Discharge Instructions * Discharge Instructions* Cori Hassan RN - 02/23/2023 11:46 AM CDT Images from the original note were not included. Crohn???s Disease Crohn???s disease is inflammation of the intestinal tract that comes and goes in flare-ups. This duke chronic (long-term) illness. During a flare-up, intense abdominal (belly) pain and fever may be felt. Mucus, blood, or pus may appear in the stool. Between flare-ups, inflammation lessens and thereusually are no symptoms. Crohn???s disease is a form of inflammatory bowel disease (IBD). Symptoms of Crohn's disease may include: Abdominal cramps and pain Diarrhea, sometimes bloody, occasionally alternating with constipation Mucus in stools Rectal bleeding Rectal pain Fever Low energy Decreased appetite and weight loss Bloating or swollen abdomen Nausea or vomiting Joint aches Sores in mouth Red, painful eye problems Rashes in anal area or other anal problems Abscess (infection) or fistula (abnormal opening in the digestive tract) No one knows exactly what causes Crohn's disease, and there is no cure. The goal of treatment is tocontrol and relieve symptoms and prevent complications, so you can lead a full and active life. No single treatment works for everyone, but many things can be done to help. Diet Foods did not cause your Crohn's disease. But they can affect it. Unfortunately, there is no one diet that works for everyone. Keep a food log to figure out what you are sensitive to. Below are some things to try. Eat more slowly and smaller amounts at a time, but more often. Remember, you can always eat more ifyou are still hungry. But you can???t eat less once you???ve eaten too much. High fiber foods are complicated. While they may help constipation and diarrhea, they can make the bloating, cramping, and gas worse. If your Crohn's disease involves the small intestine, staying away from lactose- containing dairy products can help relieve some symptoms. Try limiting spicy or fatty foods. Consume lean protein meats, such as fish and poultry. Eat less sugar. Bloating or passing excess gas may be controlled. Stay away from gassy foods, such as beans, cabbage, broccoli, and cauliflower. Stay away from certain types of fruits and fruit juices, such as pear, peach, and prune. Caffeine, alcohol, and stimulants may make symptoms worse. These include coffee, tea, sodas, energydrinks, and chocolate. Lifestyle Although stress does not cause Crohn's, it's often a factor in flare-ups. It can also affect how you feel about and cope with your health problem. Look for things that seem to make your symptoms worse, such as stress and emotions. Counseling can often help relieve stress. So can self-help measures, such as exercise, yoga, and meditation. Depression can be a part of this illness and antidepressants may be prescribed. This may actually help with diarrhea, constipation, and cramping, as well as depression. Smoking doesn't cause Crohn's. But it can make the symptoms worse. It can also make the disease more severe and harder to control. It's very important to stop smoking if you have Crohn's disease. Medicines Your healthcare provider may prescribe medicines. If so, take them as directed. In Crohn's disease,long-term medicine is usually needed. This is because control of the disease is very important to prevent complications in the future. Control is called remission. The goal of treatment is remission.Complications can include continued inflammation, a blockage (obstruction), a communication betweendifferent organs (a fistula), a pocket of pus (abscess), and anal problems. This is why it's very important to follow your treatment plan carefully. For acute flare-ups, prescription medicine can be prescribed. Call your healthcare provider if you need this. Ask your healthcare provider before taking any antidiarrheal medicines. Medicines to control Crohn's disease include pills, intravenous infusions, and injections. Your healthcare provider can discuss the pros and cons of different medicines with you. Don???t take anti-inflammatory medicines like ibuprofen or naproxen. Consider nutritional supplements. This is especially true if the diarrhea is prolonged, or you aren't eating or are losing weight. If you need supplements, talk it over with your healthcare provider for the best recommendation. Stay away from herbal supplements. They are not evaluated by the FDA. Because of this, there is no wayto be certain of their safety and purity. Follow-up care Follow up with your healthcare provider, or as advised. If a stool sample was taken or cultures were done, you will be advised if your treatment plan needs to change. You may also need blood tests, procedures, or imaging studies. Call as directed for the results. Support Joining a support group for people with Crohn???s disease can be a source of useful information on how others are coping with this illness. They are available in person, on the phone, or on the Web. Contact the following resources for more information: Crohn???s and Colitis Foundation of [employer] , www.ccfa.org National Digestive Diseases Information Clearinghouse (NDDIC), www.digestive.niddk.nih.gov When to get medical advice Call your healthcare provider right away if any of the following occur: Fever of 100.4??F (38??C) or higher, or as directed by your healthcare provider Abdominal (belly) pain that doesn't get better when you take the usual measures Mucus, pus, or small amounts of blood in the stool (dark or bright red) Repeated vomiting Abdominal swelling and pain that doesn???t go away after a few hours Call 911 Call 911 if any of the following occur: Trouble breathing Confusion Extreme sleepiness or trouble waking up Fainting or loss of consciousness Rapid heart rate Large amount of blood in the stool (dark or bright red) Mele phillips reviewed this educational content on 06/08/2022 ?? [id number] [employer], [employer]. All rights reserved. This information is not intended as a substitute for professional medical care. Always follow your healthcare professional's instructions. * Attachments The following attachments cannot be sent through Care Everywhere. * (S) EATING A LOW-FIBER DIET (KINYARWANDA) * Diet, Low-Fiber (Ugandan) * Eating a Low-Fiber Diet (Ugandan) documented in this encounter Medications at Time [...] At Bedtime 0 predniSONE (DELTASONE) 10 MG tabletIndications:I BD (inflammatory bowel disease) Take 4 tablets (40 mg) by mouth daily for 3 days, THEN 3 tablets (30 mg) daily for 7 days, THEN 2 tablets (20 mg) daily for 7 days. 47 tablet 0 02/24/2023 03/13/2023 ondansetron (ZOFRAN ODT) 4 MG ODT tab Take 4-8 mg by mouth every 8 hours as needed for nausea 0 03/20/2023 polyethylene glycol (MIRALAX) 17 GM/Dose powderIndications:R LQ abdominal pain,Partial small bowel obstruction (H) Take 17 g by mouth daily 510 g 3 02/23/2023 06/16/2023 predniSONE (DELTASONE) 5 MG tabletIndications:I BD (inflammatory bowel disease) Take 3 tablets (15 mg) by mouth daily for 7 days, THEN 2 tablets (10 mg) daily for 7 days, THEN 1 tablet (5 mg) daily for 7 days. 42 tablet 0 03/13/2023 03/26/2023 sennosides (SENOKOT) 8.6 MG tabletIndications:R LQ abdominal pain,Partial small bowel obstruction (H) Take 1-2 tablets by mouth 2 times daily as needed for constipation 90 tablet 1 02/23/2023 06/16/2023 documented as of this encounter Progress Notes * Alton Díaz DO - 02/22/2023 2:48 PM CDT Images from the original note were not included. [facility] Progress Note IMPRESSION: Ileitis, non-diagnostic pathology from colonoscopy 01/2023 in the setting of chronic NSAIDs, being treated as Crohn's ileitis with steroids and Remicade, first dose 02/18. RECOMMENDATIONS: -May be able to discharge tomorrow pending diet tolerance and additional BMs. -Suggest IBD clinic follow up within 2-4 wks. -Prednisone taper down by 10mg/wk, until at 20mg, then down by 5mg per wk. Please call with questions, will sign off. Total time spent in chart review, direct medical discussion, examination, and documentation was 20 minutes Alton Díaz DO [facility] SUBJECTIVE: Feeling somewhat better, tolerating po, no BM today. OBJECTIVE: BP (!) 113/90 (BP Location: Right arm, Patient Position: Semi-Gould's, Cuff Size: Adult Regular) Pulse 86 Temp 97.8 ??F (36.6 ??C) (Oral) Resp 16 Ht 1.6 m (5' 3) Wt 64.7 kg (142 lb 11.2 oz) SpO2 97% BMI 25.28 kg/m?? Temp (24hrs), Av.9 ??F (36.6 ??C), Min:97.8 ??F (36.6 ??C), Max:98 ??F (36.7 ??C) Patient Vitals for the past 72 hrs: Weight 02/21/23 0759 64.7 kg (142 lb 11.2 oz) Intake/Output Summary (Last 24 hours) at 02/22/2023 1448 Last data filed at 02/22/2023 1100 Gross per 24 hour Intake 2830 ml Output 2550 ml Net 280 ml PHYSICAL EXAM GEN: Alert, oriented x3, communicative and in NAD. ABD: ND, +BS, mildly TTP throughout. SKIN: No rash, jaundice or spider angiomata Additional Data: I have reviewed the patient's new clinical lab results: Recent Labs Lab Test 02/22/23 0649 02/21/23 0643 02/19/23 0522 WBC 13.5* 12.1* 8.2 HGB 12.5 12.5 11.7 MCV 88 88 89 PLT 244 238 222 Recent Labs Lab Test 02/22/23 0649 02/21/23 0643 06/15/23 0658 POTASSIUM 4.8 4.8 4.4 CHLORIDE 102 104 104 CO2 30* 28 25 BUN 20.2 14.0 14.8 ANIONGAP 8 7 9 Recent Labs Lab Test 02/17/23 0721 02/11/23 0700 02/10/23 1854 ALBUMIN 3.1* 3.6 4.2 BILITOTAL 0.4 0.2 0.3 ALT 15 8* 12 AST 10 13 13 * Eva Hammond DO - 02/22/2023 8:51 AM CDT [facility] Medicine Progress Note - Hospitalist Service Date of Admission: 02/10/2023 Assessment & Plan Ms. Hortensia Buitrago is a 62 year old female with hx Crohn's disease diagnosed early this year, asthma, migraines and renal cell cancer that was managed surgically with right nephrectomy in 2008 who presented to emergency room with diarrhea, nausea, and abdominal pain. Working dx is Crohn's disease,unclear whether acutely inflammed v scarring causing partial small bowel obstruction.GI following, pending ongoing clinical improvement and passage of gas/bowel movement. Likely discharge 02/23. Partial SBO. This appears to be due to the Crohns' associated areas of small intestinal narrowing. Recent dx Crohns with evidence of ileal stricture. It is not fully clear to what degree the stricture is still inflammatory (and reversible) v whether it is scar (and irreversible). Pain is improved after initiation of Remicade, but no change yet regarding the stool output, etc. Leukocytosis, thought to be demargination primarily related to steroids, ongoing but stable She presented to emergency room with diarrhea, nausea, and abdominal pain. Ms. Buitrago was admitted and initiated on IV solumedrol and had been improving when she transitioned to oral prednisone on 02/14. Following the discontinuation of IV steroids, she developed increased post prandial abd pain, nausea, decreased gas and no BM since Friday. GI signed off Wednesday 02/14, but re-consulted on 02/16. On 02/17 she was again started on IV methylprednisolone. CRS was included in the evaluation on 02/17 and pt was seen by Dr. Snowden. On 02/18, started on Remicade and appears to have tolerated that well. 02/22 Pain is now improved, she has had flatus and 2 small BMs in the last 24 hours. Having some gas pain and reporting symptoms of GERD on interview. Of note, colonoscopy completed through [facility] showed a distal ileal stricture due to scar. This was also seen on CT scan dated 02/10/2023. -CT scan on 02/20 - Several segments of luminal narrowing and mucosal hyperenhancement in the distalileum suggest acute on chronic Crohn's ileitis, apparent narrowed short segments in the distal sigmoid colon, no SBO -GI following - transitioned to PO steroids, prednisone 40 mg daily on 02/21 - Received remicade on 02/18 - PRN suppository - Colorectal surgery with no surgery planned at this time. -Low Fiber diet -start PRN simethicone, robaxin for pain -continue PRN zofran for nausea , TUMS added for GERD FRANCISCO, persistent Probably due to dehydration on admission; baseline creat is 0.9. -BMP in AM Moderate Protein-Calorie Malnutrition GERD - EMBOSSER OPERATOR pantoprazole MDD - EMBOSSER OPERATOR nortriptyline Insomnia - EMBOSSER OPERATOR trazodone Diet: Advance Diet as Tolerated: Low Fiber; Low Fiber DVT Prophylaxis: Pneumatic Compression Devices Uribe Catheter: Not present Lines: None Cardiac Monitoring: None Code Status: Full Code Disposition Plan: likely 02/23/23 Eva Hammond DO Hospitalist Service [facility] Securely message with [employer] (more info) Text page via [facility] Paging/Directory Interval History Stable night. Patient passed gas and had a bowel movement yesterday Had some GERD symptoms this morning in addition to some RLQ pain consistent with gas pains She has no melena, hematochezia, no other bleeding Reports no other new concerns or complaints Physical Exam Vital Signs: Temp: 97.6 ??F (36.4 ??C) Temp src: Oral BP: 113/70 Pulse: 79 Resp: 20 SpO2: 97 % O2 Device: None (Room air) Weight: 147 lbs 7.8 oz Constitutional:??awake,??alert??and cooperative HEENT:??normocepalic, atramatic Respiratory:??no increased work of breathing,??good air exchange??and clear to auscultation Cardiovascular:??regular rate and rhythm??and no murmur noted GI: minimally tender to RLQ with slightly distended to abdomen. No rebound tenderness Skin:??no rashes or lesions on exposed skin Neurologic:??alert, oriented, no focal deficits noted Data PAST 24 HR DATA REVIEWED Results for orders placed or performed during the hospital encounter of 02/10/23 (from the past 24 hour(s)) CBC with platelets Result Value Ref Range WBC Count 13.5 (H) 4.0 - 11.0 10e3/uL RBC Count 4.60 3.80 - 5.20 10e6/uL Hemoglobin 12.5 11.7 - 15.7 g/dL Hematocrit 40.5 35.0 - 47.0 % MCV 88 78 - 100 fL MCH 27.2 26.5 - 33.0 pg MCHC 30.9 (L) 31.5 - 36.5 g/dL RDW 15.0 10.0 - 15.0 % Platelet Count 244 150 - 450 10e3/uL Magnesium Result Value Ref Range Magnesium 2.4 (H) 1.7 - 2.3 mg/dL Phosphorus Result Value Ref Range Phosphorus 3.5 2.5 - 4.5 mg/dL * Johnnie Eduardo - 02/21/2023 1:29 PM CDT [facility] Progress Note [facility] (Adults Overflow) I met with Hortensia per consult request. I introduced myself and my role and Hortensia indicated that she did not need a supervisor shop at this time. She indicated that she would let the nurse know if she wanted to see a supervisor shop. Plan: I and other chaplains remain available for further support. [facility] Licensed Practical Nurse [employer] [facility] routine referrals *[id number] available 31/03 for emergent requests/referrals, either by paging the on-call supervisor shop or by entering an BUSTER/STAT consult in [facility] (this will also page the on-call supervisor shop). Associated attestation - Calin Trent - 02/24/2023 10:24 AM CDT Calin Ruffin, staff supervisor shop have reviewed and agree with the following supervisor shop student's note on 02/24/2023 at 10:24 AM. * Eva Hammond DO - 02/21/2023 12:50 PM CDT [facility] Medicine Progress Note - Hospitalist Service Date of Admission: 02/10/2023 Assessment & Plan Ms. Hortensia Buitrago is a 62 year old female with hx Crohn's disease diagnosed early this year, asthma, migraines and renal cell cancer that was managed surgically with right nephrectomy in 2008 who presented to emergency room with diarrhea, nausea, and abdominal pain. Working dx is Crohn's disease,unclear whether acutely inflammed v scarring causing partial small bowel obstruction.GI following, pending ongoing clinical improvement and passage of gas/bowel movement. Partial SBO. This appears to be due to the Crohns' associated areas of small intestinal narrowing. Recent dx Crohns with evidence of ileal stricture. It is not fully clear to what degree the stricture is still inflammatory (and reversible) v whether it is scar (and irreversible). Pain is improved after initiation of Remicade, but no change yet regarding the stool output, etc. Leukocytosis, thought to be demargination primarily related to steroids, ongoing but stable Presented to emergency room with diarrhea, nausea, and abdominal pain. Ms. Buitrago was admitted and initiated on IV solumedrol and had been improving when she transitioned to oral prednisone on 02/14. Following the discontinuation of IV steroids, she developed increased post prandial abd pain, nausea, decreased gas and no BM since Friday. GI signed off Wednesday 02/14, but re-consulted on 02/16. On 02/17 she was again started on IV methylprednisolone. CRS was included in the evaluation on 02/17 and pt was seen by Dr. Snowden. On 02/18, started on Remicade and appears to have tolerated that well. 02/21 Painis now improved, but she continues to have decreased flatus and stool output. Nausea also persists e specially with meals, is premedicating with Zofran. Of note, colonoscopy completed through [facility] showed a distal ileal stricture due to scar. This was also seen on CT scan dated 02/10/2023. -CT scan on 02/20 - Several segments of luminal narrowing and mucosal hyperenhancement in the distalileum suggest acute on chronic Crohn's ileitis, apparent narrowed short segments in the distal sigmoid colon, no SBO -GI following - transitioned to PO steroids - Received remicade on 02/18 - PRN suppository - Colorectal surgery with no surgery planned at this time. -Cont IVF to TKO until pt is able to take adequate volume of food -Low Fiber diet today. FRANCISCO, persistent Probably due to dehydration on admission; baseline creat is 0.9. -monitor BMP Moderate Protein-Calorie Malnutrition Diet: Advance Diet as Tolerated: Low Fiber; Low Fiber DVT Prophylaxis: Pneumatic Compression Devices Uribe Catheter: Not present Lines: None Cardiac Monitoring: None Code Status: Full Code Disposition Plan: TBD. Pt will need to able to take adequate oral intake prior to discharge, pass gas/bowel movement as well Eva Hammond DO Hospitalist Service [facility] Securely message with [employer] (more info) Text page via [facility] Paging/Directory Interval History Stable night. No major changes overnight. Patient reports trying to eat dinner without any premedication of Zofran last night, this resulted in pretty significant nausea for her, this morning she premedicated her breakfast with Zofran and reports that her nausea was much improved She has not had a bowel movement or passed gas, abdominal pain is well managed She remains frustrated with the fact that nothing is moving from her bottom, but she does not report any new fever or chills, otherwise symptoms are stable and she reports no other new concerns or complaints today Physical Exam Vital Signs: Temp: 97.6 ??F (36.4 ??C) Temp src: Oral BP: 113/70 Pulse: 79 Resp: 20 SpO2: 97 % O2 Device: None (Room air) Weight: 147 lbs 7.8 oz Constitutional:??awake,??alert??and cooperative HEENT:??normocepalic, atramatic Respiratory:??no increased work of breathing,??good air exchange??and clear to auscultation Cardiovascular:??regular rate and rhythm??and no murmur noted GI: minimally tender and distended to abdomen. No rebound tenderness, mildly distended Skin:??no rashes or lesions on exposed skin Neurologic:??alert, oriented, no focal deficits noted Data PAST 24 HR DATA REVIEWED Results for orders placed or performed during the hospital encounter of 02/10/23 (from the past 24 hour(s)) CBC with platelets Result Value Ref Range WBC Count 12.1 (H) 4.0 - 11.0 10e3/uL RBC Count 4.59 3.80 - 5.20 10e6/uL Hemoglobin 12.5 11.7 - 15.7 g/dL Hematocrit 40.2 35.0 - 47.0 % MCV 88 78 - 100 fL MCH 27.2 26.5 - 33.0 pg MCHC 31.1 (L) 31.5 - 36.5 g/dL RDW 14.9 10.0 - 15.0 % Platelet Count 238 150 - 450 10e3/uL Basic metabolic panel Result Value Ref Range Sodium 139 136 - 145 mmol/L Potassium 4.8 3.4 - 5.3 mmol/L Chloride 104 98 - 107 mmol/L Carbon Dioxide (CO2) 28 22 - 29 mmol/L Anion Gap 7 7 - 15 mmol/L Urea Nitrogen 14.0 8.0 - 23.0 mg/dL Creatinine 1.09 (H) 0.51 - 0.95 mg/dL Calcium 9.1 8.8 - 10.2 mg/dL Glucose 116 (H) 70 - 99 mg/dL GFR Estimate 57 (L) >60 mL/min/1.73m2 Magnesium Result Value Ref Range Magnesium 2.3 1.7 - 2.3 mg/dL Phosphorus Result Value Ref Range Phosphorus 3.8 2.5 - 4.5 mg/dL * Deidra Ramirez RD, LANI - 02/21/2023 11:25 AM CDT Clinical Nutrition Brief Note Chart check on patient being followed by nutrition services. Spoke with patient about PO intake andoral nutritional supplements. Patient reports that she is feeling full after consuming AM ensure, not feeling hungry for lunch given this. Low appetite at baseline. Encouraged small more frequent meals, plan to change oral nutritional supplements to half portions BID thinned out with skim milk and placed over ice. Discussed low fiber options on the menu. Deidra Ramirez RD, LANI Clinical Dietitian 3rd floor/ICU: [phone] All other floors: [phone] Weekend/holiday: [phone] Office: [phone] * Eva Hammond DO - 02/20/2023 4:03 PM CDT [facility] Medicine Progress Note - Hospitalist Service Date of Admission: 02/10/2023 Assessment & Plan Ms. Hortensia Buitrago is a 62 year old female with hx Crohn's disease diagnosed early this year, asthma, migraines and renal cell cancer that was managed surgically with right nephrectomy in 2008 who presented to emergency room with diarrhea, nausea, and abdominal pain. Working dx is Crohn's disease,unclear whether acutely inflammed v scarring causing partial small bowel obstruction.GI following, no ongoing clinical improvement. Partial SBO. This appears to be due to the Crohns' associated areas of small intestinal narrowing. Recent dx Crohns with evidence of ileal stricture. It is not fully clear to what degree the stricture is still inflammatory (and reversible) v whether it is scar (and irreversible). Pain is improved after initiation of Remicade, but no change yet regarding the stool output, etc. Leukocytosis, thought to be demargination primarily related to steroids. Presented to emergency room with diarrhea, nausea, and abdominal pain. Ms. Buitrago was admitted and initiated on IV solumedrol and had been improving when she transitioned to oral prednisone on 02/14. Following the discontinuation of IV steroids, she developed increased post prandial abd pain, nausea, decreased gas and no BM since Friday. GI had signed off Wednesday 02/14, but re-consulted GI on 02/16. On 02/17 at which point she was again started on IV methylprednisolone. CRS was included in the evaluation on 02/17 and pt was seen by Dr. Snowden. On 02/18, Ms. Buitrago was started on Remicade and appears to have tolerated that well. Pain is now improved, but she continues to have decreased flatus and stooloutput. Nausea also persists. Of note, colonoscopy completed through [facility] showed a distal ileal stricture due to scar. This was also seen on CT scan dated 02/10/2023. -GI following - On IV steroid - Received remicade on 02/18 - Colorectal surgery following, no surgery planned at this time. - CT abdomen and pelvis due to ongoing symptoms. -Cont IVF until pt is able to take adequate volume of food. Advanced to Low Fiber diet today. FRANCISCO. Probably due to dehydration on admission; baseline creat is 0.9. -monitor BMP Diet: Advance Diet as Tolerated: Low Fiber; Low Fiber DVT Prophylaxis: Pneumatic Compression Devices Uribe Catheter: Not present Lines: None Cardiac Monitoring: None Code Status: Full Code Disposition Plan: TBD. Pt will need to able to take adequate oral intake prior to discharge. [facility] Hammond [facility] Securely message with [employer] (more info) Text page via [facility] Paging/Directory Interval History Stable night. No major changes overnight. She reports that she tried to eat scrambled eggs last night and had nausea with this, she again tried to eat some breakfast today and had a couple bites with recurrent symptoms But frustrated with her symptoms but understands that she needs to stay in the hospital to figure out what is going on and so that she can tolerate p.o. intake She does not report any new fever or chills, otherwise symptoms are stable and she reports no othernew concerns or complaints Physical Exam Vital Signs: Temp: 97.6 ??F (36.4 ??C) Temp src: Oral BP: 113/70 Pulse: 79 Resp: 20 SpO2: 97 % O2 Device: None (Room air) Weight: 147 lbs 7.8 oz Constitutional:??awake,??alert??and cooperative HEENT:??normocepalic, atramatic Respiratory:??no increased work of breathing,??good air exchange??and clear to auscultation Cardiovascular:??regular rate and rhythm??and no murmur noted GI:??tender to palpation RLQ with milder discomfort diffusely. No rebound tenderness, mildly distended Skin:??no rashes or lesions on exposed skin Neurologic:??alert, oriented, no focal deficits noted Data PAST 24 HR DATA REVIEWED Results for orders placed or performed during the hospital encounter of 02/10/23 (from the past 24 hour(s)) Basic metabolic panel Result Value Ref Range Sodium 138 136 - 145 mmol/L Potassium 4.4 3.4 - 5.3 mmol/L Chloride 104 98 - 107 mmol/L Carbon Dioxide (CO2) 25 22 - 29 mmol/L Anion Gap 9 7 - 15 mmol/L Urea Nitrogen 14.8 8.0 - 23.0 mg/dL Creatinine 1.06 (H) 0.51 - 0.95 mg/dL Calcium 9.0 8.8 - 10.2 mg/dL Glucose 154 (H) 70 - 99 mg/dL GFR Estimate 59 (L) >60 mL/min/1.73m2 CT Abdomen Pelvis w Contrast Narrative CT ABDOMEN AND PELVIS WITH CONTRAST 02/20/2023 11:36 AM CLINICAL HISTORY: Abdominal pain. TECHNIQUE: CT scan of the abdomen and pelvis was performed following injection of IV contrast. Multiplanar reformats were obtained. Dose reduction techniques were used. CONTRAST: 58mL Isovue-370 COMPARISON: CT of the abdomen and pelvis performed 02/10/2023. FINDINGS: LOWER CHEST: Small calcified granuloma in the right lower lobe. HEPATOBILIARY: The gallbladder is not seen, and is likely surgically absent. No hepatic masses are seen. PANCREAS: Normal. SPLEEN: Normal. ADRENAL GLANDS: Normal. KIDNEYS/BLADDER: Right nephrectomy. Left kidney is unremarkable. No hydronephrosis. BOWEL: Several narrowed segments of distal ileum demonstrate mucosal hyperenhancement. These overall have a similar appearance to the previous exam (for example, series 3 image 160). Short segments of apparent narrowing in the distal sigmoid colon were not as well seen on the previous exam, but also likely unchanged with no convincing associated mucosal hyperenhancement. No evidence for associated bowel obstruction. The appendix is not visualized, however, there are no secondary signs of appendicitis. PELVIC ORGANS: Hysterectomy. No free fluid in the pelvis. LYMPH NODES: No enlarged lymph nodes are identified in the abdomen or pelvis. VASCULATURE: Mild atherosclerotic aortoiliac calcification. ADDITIONAL FINDINGS: Degenerative changes in the visualized thoracolumbar spine. MUSCULOSKELETAL: Unremarkable. Impression IMPRESSION: 1. Several segments of luminal narrowing and mucosal hyperenhancement in the distal ileum suggest acute on chronic Crohn's ileitis. 2. There are also apparent narrowed short segments in the distal sigmoid colon. 3. No evidence for associated bowel obstruction. JOAQUÍN LUNA MD * Betty Olivares APRN APPLICATION DESIGN ENGINEER - 02/20/2023 10:50 AM CDT Images from the original note were not included. GASTROENTEROLOGY PROGRESS NOTE SUBJECTIVE: On low residue diet. Concerned about inadequate oral intake. Reports nausea which responds to Zofran. Not passing gas. No bowel movements. OBJECTIVE: General Appearance: Sitting on he recliner BP 114/71 Pulse 100 Temp 97.9 ??F (36.6 ??C) (Oral) Resp 20 Ht 1.6 m (5' 3) Wt 66.1 kg (145 lb 11.2 oz) SpO2 98% BMI 25.81 kg/m?? Temp (24hrs), Av.9 ??F (36.6 ??C), Min:97.6 ??F (36.4 ??C), Max:98.2 ??F (36.8 ??C) No data found. Intake/Output Summary (Last 24 hours) at 02/20/2023 0842 Last data filed at 02/19/2023 2200 Gross per 24 hour Intake 740 ml Output -- Net 740 ml PHYSICAL EXAM General: alert, oriented, NAD SKIN: no suspicious lesions, rashes, jaundice, or spider angiomas EYES: No scleral icterus RESPIRATORY: Non labored breathing GASTROINTESTINAL: Active bowel sounds, soft NEURO:Grossly WNL. Additional Comments: ROS, FH, SH: See initial GI consult for details. I have reviewed the patient's new clinical lab results: Recent Labs Lab Test 02/19/2352102/17/2372002/16/2358 02/15/23 1011 WBC 8.2 9.6 -- 14.3* HGB 11.7 11.5* -- 12.5 MCV 89 87 -- 87 PLT 222 239 283 303 Recent Labs Lab Test 02/20/2358 02/19/23 0522 02/17/23 0721 POTASSIUM 4.4 4.4 3.8 CHLORIDE 104 104 105 CO2 25 26 26 BUN 14.8 12.0 18.4 ANIONGAP 9 7 8 Recent Labs Lab Test 02/17/23 0721 02/11/23 0700 02/10/23 1854 ALBUMIN 3.1* 3.6 4.2 BILITOTAL 0.4 0.2 0.3 ALT 15 8* 12 AST 10 13 13 Creatinine Date Value Ref Range Status 02/20/2023 1.06 (H) 0.51 - 0.95 mg/dL Final Imaging and procedures: XR GASTROGRAFIN CHALLENGE 02/17/2023 9:45 PM ?? HISTORY: Persistent SBO ?? COMPARISON: Same date abdominal radiograph, CT abdomen/pelvis 02/10/2023 ?? IMPRESSION: Mildly dilated distal small bowel, similar to prior CT scan same day radiograph. Administered oral contrast reached the colon by 8 hours. Cholecystectomy. Multiple pelvic phleboliths. Bones are Unchanged. CT scan 02/20 BOWEL: Several narrowed segments of distal ileum demonstrate mucosal hyperenhancement. These overall have a similar appearance to the previous exam (for example, series 3 image 160). Short segments of apparent narrowing in the distal sigmoid colon were not as well seen on the previous exam, but also likely unchanged with no convincing associated mucosal hyperenhancement. No evidence for associated bowel obstruction. The appendix is not visualized, however, there are no secondary signs of appendicitis. IMPRESSION: 1. Several segments of luminal narrowing and mucosal hyperenhancement in the distal ileum suggest acute on chronic Crohn's ileitis. 2. There are also apparent narrowed short segments in the distal sigmoid colon. 3. No evidence for associated bowel obstruction. Problem list pertaining to GI: Crohn's disease Assessment: This is a 62 y-o female with Crohn' disease. Who was sent to ED for an evaluation of worsening nausea or vomiting. Imaging on arrival showed narrowed distal small bowel causing a partial small bowel obstruction. No definite active inflammation noted on CT scan, though she has had inflammation noted on recent imaging. Colonoscopy in January 2023 showed stenosis as well as an ulceration at the ileum, pathology showed nonspecific mildly active chronic ileitis. Repeat CT yesterday showed chronic ileitis, negative for evidence of SBO. EGD 12/13/2022 was endoscopically normal. Esophageal and duodenal biopsies normal. Gastric biopsies showed chronic gastritis, negative for H. Pylori. Plan: - Oral steroids - Received remicade on 02/18, next infusions are scheduled. - Colorectal surgery following, no surgery planned at this time. - CT shows chronic ileitis, negative for evidence of SBO. - Discontinue IVF, strict Intake and out put - Possible discharge tomorrow I will discuss with Dr. Munoz Time spent: 30 minutes, greater than 50% of the visit was spent in counseling/coordination of care. Betty Olivares CNP [facility] ([facility]) [phone] * Apolinar Munoz MD - 02/19/2023 2:36 PM CDT GASTROENTEROLOGY PROGRESS NOTE SUBJECTIVE: Pain is gone since getting Remicade. Still has cramping and diarrhea. Ready to advance diet. OBJECTIVE: BP 117/86 (BP Location: Right arm) Pulse 63 Temp 98.2 ??F (36.8 ??C) (Oral) Resp 18 Ht 1.6 m (5' 3) Wt 66.1 kg (145 lb 11.2 oz) SpO2 98% BMI 25.81 kg/m?? Temp (24hrs), Av.9 ??F (36.6 ??C), Min:97.5 ??F (36.4 ??C), Max:98.2 ??F (36.8 ??C) Patient Vitals for the past 72 hrs: Weight 02/17/23 1044 66.1 kg (145 lb 11.2 oz) 02/16/23 1532 66.9 kg (147 lb 7.8 oz) Intake/Output Summary (Last 24 hours) at 02/19/2023 1436 Last data filed at 02/19/2023 0900 Gross per 24 hour Intake 1445 ml Output -- Net 1445 ml PHYSICAL EXAM Cardiovascular: Normal Respiratory: Normal Gastrointestinal: Active BS, soft, minimal tenderness RLQ JOINT/EXTREMITIES: No calf tenderness Recent Labs Lab Test 02/19/23 0522 02/17/23 0721 02/16/23 0558 02/15/23 1011 WBC 8.2 9.6 -- 14.3* HGB 11.7 11.5* -- 12.5 MCV 89 87 -- 87 PLT 222 239 283 303 Recent Labs Lab Test 02/19/23 0522 02/17/23 0721 02/15/23 1011 POTASSIUM 4.4 3.8 3.2* CHLORIDE 104 105 104 CO2 26 26 24 BUN 12.0 18.4 22.6 ANIONGAP 7 8 10 Recent Labs Lab Test 02/17/23 0721 02/11/23 0700 02/10/23 1854 ALBUMIN 3.1* 3.6 4.2 BILITOTAL 0.4 0.2 0.3 ALT 15 8* 12 AST 10 13 13 Principal Problem: Ileal Crohn's Assessment: Pain is gone since Remicade. Hope that there will be continued improvement in the narrowing at the ileocecal area. Plan: Advance diet. Continue IV steroids. Hope to transition to oral prednisone soon. Apolinar Munoz MD [facility] Office: [phone] * Madison Iverson MD - 02/19/2023 8:50 AM CDT Colon & Rectal Surgery Progress Note Interval History: Remicade given yesterday. Overall feeling better. Several small loose stools. No bleeding. Medications: I have reviewed this patient's current medications Physical Exam: Blood pressure 129/80, pulse 62, temperature 97.5 ??F (36.4 ??C), temperature source Oral, resp. rate 18, height 1.6 m (5' 3), weight 66.1 kg (145 lb 11.2 oz), SpO2 98 %. Intake/Output Summary (Last 24 hours) at 02/19/2023 0851 Last data filed at 02/18/2023 2233 Gross per 24 hour Intake 1325 ml Output -- Net 1325 ml GEN: Alert ABD: Soft, nontender, nondistended Data: Lab Results Component Value Date NA 137 02/19/2023 Lab Results Component Value Date CHLORIDE 104 02/19/2023 Lab Results Component Value Date BUN 12.0 02/19/2023 Lab Results Component Value Date POTASSIUM 4.4 02/19/2023 Lab Results Component Value Date CO2 26 02/19/2023 Lab Results Component Value Date CR 1.01 02/19/2023 CR 1.12 02/17/2023 Lab Results Component Value Date HGB 11.7 02/19/2023 HGB 11.5 (L) 02/17/2023 Lab Results Component Value Date PLT 222 02/19/2023 PLT 239 02/17/2023 Lab Results Component Value Date WBC 8.2 02/19/2023 WBC 9.6 02/17/2023 Assessment and Plan: No plans for urgent surgery at this time. Diet per GI. we will follow more peripherally as GI is managing her Crohn's disease medically. Please call if there is any concerns relevant to the colorectal surgery team. Madison Iverson MD [facility] Office * Ulises Rondon MD - 02/19/2023 7:57 AM CDT [facility] Medicine Progress Note - Hospitalist Service Date of Admission: 02/10/2023 Assessment & Plan Hortensia Buitrago is a 62 year old female with hx Crohn's disease diagnosed early this year, asthma, and migraines. She presented to emergency room with diarrhea, nausea, and abdominal pain. Working dxis Crohn's disease, unclear whether acutely inflammed v scarring causing partial small bowel obstruction. Note past medical history includes renal cell cancer that was managed surgically with right nephrectomy in 2008. In addition, patient underwent hysterectomy in the remote past though she did not tellme the indication. Otherwise, the patient has been quite healthy until this past year when she was having abdominal complaints and was ultimately diagnosed with chron's disease. [facility] showed a distal ileal stricture due to scar. This was also seen on CT scan dated 02/10/2023. Ms. Buitrago was admitted and initiated on IV solumedrol and had been improving when she transitioned to oral prednisone on 02/14. Following the discontinuation of IV steroids, she developed increased post prandial abd pain, nausea, decreased gas and no BM since Friday. GI had signed off Wednesday 02/14, butre- consulted GI on 02/16. Since admission on 02/10. Ms. Buitrago had seen minimal improvement until 02/17 at which point she was again started on IV methylprednisolone. CRS was included in the evaluation on 02/17 and pt was seen by Dr. Snowden. On 02/18, Ms. Buitrago was started on Remicade and appears to have tolerated that well. Painis now improved, but she continues to have decreased flatus and stool output. Nausea also persists. DX: 1. Partial SBO. This appears to be due to the Crohns' associated areas of small intestinal narrowing. 2. Recent dx Crohns with evidence of ileal stricture. It is not fully clear to what degree the stricture is still inflammatory (and reversible) v whether it is scar (and irreversible). Pain is improved after initiation of Remicade, but no change yet regarding the stool output, etc. 3. FRANCISCO, improved. Probably due to dehydration on admission; baseline creat is 0.9. 4. Leukocytosis, thought to be demargination primarily related to steroids. PLAN: 1. Continues steroid taper per gastroenterology. 2. Cont IVF until pt is able to take adequate volume of food. Advanced to Low Fiber diet today. 3. Remicade and steroids per [place] [facility]. Diet: Advance Diet as Tolerated: Low Fiber; Low Fiber DVT Prophylaxis: Pneumatic Compression Devices Uribe Catheter: Not present Lines: None Cardiac Monitoring: None Code Status: Full Code Disposition Plan TBD. Pt will need to able to take adequate oral intake prior to discharge. Ulises Rondon MD Hospitalist Service [facility] Securely message with [employer] (more info) Text page via [facility] Paging/Directory Interval History Stable night. No major changes overnight. No flatus or stool, no emesis but continues to have mild nausea. Pt very hungry. RLQ pain is improved. Physical Exam Vital Signs: Temp: 97.6 ??F (36.4 ??C) Temp src: Oral BP: 113/70 Pulse: 79 Resp: 20 SpO2: 97 % O2 Device: None (Room air) Weight: 147 lbs 7.8 oz Constitutional:??awake,??alert??and cooperative Eyes:??pupils equal, round and reactive to light??and conjunctiva normal ENT:??normocepalic, without obvious abnormality, atramatic Respiratory:??no increased work of breathing,??good air exchange??and clear to auscultation Cardiovascular:??regular rate and rhythm??and no murmur noted GI:??tender to palpation RLQ with milder discomfort diffusely. No rebound tenderness, diminished bowel sounds Skin:??no bruising or bleeding Neurologic:??alert, oriented, no focal deficits 40 MINUTES SPENT BY ME on the date of service doing chart review, history, exam, documentation & further activities per the note. Data PAST 24 HR DATA REVIEWED Results for orders placed or performed during the hospital encounter of 02/10/23 (from the past 24 hour(s)) CBC with platelets Result Value Ref Range WBC Count 8.2 4.0 - 11.0 10e3/uL RBC Count 4.36 3.80 - 5.20 10e6/uL Hemoglobin 11.7 11.7 - 15.7 g/dL Hematocrit 38.6 35.0 - 47.0 % MCV 89 78 - 100 fL MCH 26.8 26.5 - 33.0 pg MCHC 30.3 (L) 31.5 - 36.5 g/dL RDW 14.6 10.0 - 15.0 % Platelet Count 222 150 - 450 10e3/uL Extra Tube Narrative The following orders were created for panel order Extra Tube. Procedure Abnormality Status --------- ------ Extra Green Top (Naomi...[[id number]] Final result Please view results for these tests on the individual orders. Extra Green Top (Naomi Heparin) Tube Result Value Ref Range Hold Specimen [facility] Basic metabolic panel Result Value Ref Range Sodium 137 136 - 145 mmol/L Potassium 4.4 3.4 - 5.3 mmol/L Chloride 104 98 - 107 mmol/L Carbon Dioxide (CO2) 26 22 - 29 mmol/L Anion Gap 7 7 - 15 mmol/L Urea Nitrogen 12.0 8.0 - 23.0 mg/dL Creatinine 1.01 (H) 0.51 - 0.95 mg/dL Calcium 8.8 8.8 - 10.2 mg/dL Glucose 119 (H) 70 - 99 mg/dL GFR Estimate 62 >60 mL/min/1.73m2 * Keiry Freeman RN - 02/19/2023 6:58 AM CDT Orientation: Alert and oriented. VSS. RA. LS: Clear GI: Abdominal discomfort and tenderness. Denies passing gas. No BM. Low constant nausea, IV compazine x1 with relief. : Adequate urine output. Skin: Bilateral bruising on forearms from previous PIV sites. Activity: Independent. Pt slept comfortably throughout shift. Pain: 0-6/10. Updates/Plan: Pt tolerated water intake with slight increase in nausea, ate a popsicle and reportedincrease in pain, nausea, and bloating but resolved over time. Continue with current cares. * Hortensia Dominguez PA-C - 02/18/2023 1:10 PM CDT Images from the original note were not included. GASTROENTEROLOGY PROGRESS NOTE SUBJECTIVE: Continued abdominal pain of 3 out of 10. This is tolerable for her. No nausea or vomiting. She has not been passing any gas or stool. She is tolerating clear liquids. OBJECTIVE: BP 106/77 (BP Location: Right arm, Patient Position: Semi-Gould's, Cuff Size: Adult Regular) Pulse 70 Temp 97.9 ??F (36.6 ??C) (Oral) Resp 16 Ht 1.6 m (5' 3) Wt 66.1 kg (145 lb 11.2 oz) SpO2 95% BMI 25.81 kg/m?? Temp (24hrs), Av.7 ??F (36.5 ??C), Min:97.3 ??F (36.3 ??C), Max:97.9 ??F (36.6 ??C) Patient Vitals for the past 72 hrs: Weight 02/17/23 1044 66.1 kg (145 lb 11.2 oz) 02/16/23 1532 66.9 kg (147 lb 7.8 oz) No intake or output data in the 24 hours ending 02/18/23 1310 PHYSICAL EXAM Constitutional: NAD Abdomen: soft, RLQ tenderness, no rebound or guarding Additional Comments: ROS, FH, SH: See initial GI consult for details. I have reviewed the patient's new clinical lab results: Recent Labs Lab Test 02/17/23 0721 02/16/23 0558 02/15/23 1011 02/14/23 0639 WBC 9.6 -- 14.3* 13.5* HGB 11.5* -- 12.5 12.4 MCV 87 -- 87 86 PLT 239 283 303 323 Recent Labs Lab Test 02/17/23 0721 02/15/23 1011 02/14/23 0639 POTASSIUM 3.8 3.2* 4.2 CHLORIDE 105 104 106 CO2 26 24 26 BUN 18.4 22.6 18.1 ANIONGAP 8 10 8 Recent Labs Lab Test 02/17/23 0721 02/11/23 0700 02/10/23 1854 ALBUMIN 3.1* 3.6 4.2 BILITOTAL 0.4 0.2 0.3 ALT 15 8* 12 AST 10 13 13 ASSESSMENT/ PLAN Hortensia Buitrago is a 62-year-old female recently diagnosed with ileal Crohn's disease presenting with worsening symptoms of nausea, vomiting, abdominal pain, unintentional weight loss and diarrhea. Additional medical history includes nephrectomy for kidney cancer, appendectomy, and cholecystectomy. 1. Ileal Crohn's disease: Patient has undergone extensive work-up in November. ??Recent colonoscopy was performed that showed inflammation, stenosis as well as an ulceration at the ileum, pathology showed nonspecific mildly active chronic ileitis. ??Presentation and work-up is most consistent with ileal Crohn's disease, though do note that she had been using NSAIDs regularly which may affect findings. The patient's symptoms had not been responding to outpatient prednisone. ??Imaging on arrival showed narrowed distal small bowel causing a partial small bowel obstruction. No??definite active inflammation noted on CT scan, though she has had inflammation noted on recent imaging.?It is likely that her symptoms are a combination of??inflammation related to her underlying Crohn's disease as well as??ileal stenosis??seen during her colonoscopy. ?? --No evidence of abscess/fistula on imaging. -- As patient was failing steroids, colorectal surgery was consulted. Concern for fibrostenotic component of her disease given lack of improvement on IV steroids. -- Gastrografin study 02/17 revealed mildly dilated small bowel with oral contrast reaching the colon. No plans for immediate surgery per colorectal team. May need to be considered in the future. -- Plan to maximize medical therapy with initiation of Remicade today, 5 mg/kg. Patient does have insurance coverage for Remicade. We will give urgent rescue dose today. My office will contact patient for her next dose in 2 weeks. QuantiFERON negative, hepatitis B negative. We will continue to follow. Discussed with Dr. Alexander Dominguez PA-C [facility] ( [facility]) * Madison Iverson MD - 02/18/2023 8:31 AM CDT Images from the original note were not included. COLON & RECTAL SURGERY PROGRESS NOTE February 18, 2023 SUBJECTIVE: Still reporting some right sided abdominal pain. Has had 2 small loose stools yesterday. No flatus. Some mild nausea, no vomiting. OBJECTIVE: Temp: [97.3 ??F (36.3 ??C)-97.9 ??F (36.6 ??C)] 97.5 ??F (36.4 ??C) Pulse: [68-98] 98 Resp: [18] 18 BP: (118-123)/(75-86) 123/86 SpO2: [96 %-98 %] 98 % No intake or output data in the 24 hours ending 02/18/23 0831 GENERAL: Awake, alert, no acute distress, lying in bed HEAD: Nomocephalic atraumatic SCLERA: anicteric EXTREMITIES: warm and well perfused ABDOMEN: Soft, mild right-sided tenderness, mildly distended, no rebound or guarding, no peritonealsigns LABS: Lab Results Component Value Date WBC 9.6 02/17/2023 Lab Results Component Value Date HGB 11.5 02/17/2023 Lab Results Component Value Date HCT 36.7 02/17/2023 Lab Results Component Value Date PLT 239 02/17/2023 Last Basic Metabolic Panel: Lab Results Component Value Date NA 139 02/17/2023 Lab Results Component Value Date POTASSIUM 3.8 02/17/2023 Lab Results Component Value Date CHLORIDE 105 02/17/2023 Lab Results Component Value Date DAJA 8.4 02/17/2023 Lab Results Component Value Date CO2 26 02/17/2023 Lab Results Component Value Date BUN 18.4 02/17/2023 Lab Results Component Value Date CR 1.12 02/17/2023 Lab Results Component Value Date GLC 89 02/17/2023 ASSESSMENT/PLAN: Hortensia is a 62 year old woman with a recent diagnosis of Crohn's that was admitted on 02/11 with abdominal pain and nausea. A CT scan of the abdomen pelvis revealed segments of narrowed distal small bowel causing a SBO. She was intitially started on IV steroids and had some improvement. She was transitioned to oral steroids on 02/14. Unfortunately, she had a reoccurrence of obstructive symptoms so was restarted on IV steroids on 02/17. Gastrografin study 02/17 revealed mildly dilated distal small bowel with oral contrast reaching the colon. - Clear liquids. If worsening pain, nausea, or vomiting would back down to NPO. - Pain management as needed - Medical management of Crohn's per GI - No current plans for surgery Will discuss with Dr. Iverson For questions/paging, please contact the CRS office at [phone]. Roberta Ramirez PA-C [facility] Colon and Rectal Surgery Attending Note Patient seen and examined independently. Agree with above assessment and plan. Feeling better. + small liquid stool after SBFT. abd soft, non-tender Plan Per GI Remicade about to start. No plan for urgent surgery at this time Diet recommendations per GI. Madison Iverson MD [facility] [address], [address] [place] [address] T: [phone] F: [phone] [email or web address] * Ulises Rondon MD - 02/18/2023 7:39 AM CDT [facility] Medicine Progress Note - Hospitalist Service Date of Admission: 02/10/2023 Assessment & Plan Hortensia Buitrago is a 62 year old female with hx Crohn's disease diagnosed early this year, asthma, and migraines. She presented to emergency room with diarrhea, nausea, and abdominal pain. Working dxis Crohn's disease, unclear whether acutely inflammed v scarring causing partial small bowel obstruction. Note past medical history includes renal cell cancer that was managed surgically with right nephrectomy in 2008. In addition, patient underwent hysterectomy in the remote past though she did not tellme the indication. Otherwise, the patient has been quite healthy until this past year when she was having abdominal complaints and was ultimately diagnosed with chron's disease. [facility]oscopy completed[facility] evidently showed a distal ileal stricture due to scar. This was also seen on CT scan dated 02/10/2023. Ms. Buitrago was admitted and initiated on IV solumedrol and had been improving when she transitioned to oral prednisone on 02/14. Following the discontinuation of IV steroids, she developed increased post prandial abd pain, nausea, decreased gas and no BM since Friday. GI had signed off Wednesday 02/14, butre- consulted GI on 02/16. Since admission on 02/10. Ms. Buitrago had seen minimal improvement until 02/17 at which point she was again started on IV methylprednisolone. CRS was ultimately included in the evaluation on 02/17. At thistime, the plan is for the patient to undergo a trial of Remicade in a hope to avoid surgery. Partial small bowel obstruction, persistent pain and low stool output Ileal stricture identified on prior colonoscopy and confirmed on CT. Unclear to what degree this isscar v reversible inflammatory -noted on CT segments of narrowed distal small bowel causing a partial SBO. No definite active inflammation... -Records from [facility] indicates stenosis of her terminal ileum which I believewas identified on January 28, 2023 on colonoscopy. -CRS completed a gastrografin small bowel study which continues to show lengths of small intestinalnarrowing. GI and CRS have decided to pursue medical therapy today with initiation of Remicade for therapeutic trial. ?? Possible Crohn's exacerbation. -Gastroenterology following, on PPI -completed 3 days IV steroids, started on long oral prednisone taper 02/14 but had worsening symptomssince transition. Preceding this admission, also had treatment failure after transitioning to oral prednisone Acute kidney injury. -Creatinine initially elevated at 1.3. -Likely prerenal due to dehydration from profuse diarrhea -off fluids, Cr stable Leukocytosis -likely from steroids, c dif negative Diarrhea -negative for C dif, sounds like chronic issue for her w/SBO possibly contributing Diet: Advance Diet as Tolerated: Low Fiber; Low Fiber DVT Prophylaxis: Pneumatic Compression Devices Uribe Catheter: Not present Lines: None Cardiac Monitoring: None Code Status: Full Code Disposition Plan To be determined. Patient continues to have incompletely managed medical issues. Ulises Rondon MD Hospitalist Service [facility] Securely message with [employer] (more info) Text page via [employer] Paging/Directory Interval History Stable night. GI has decided to proceed with Remicade. I returned to the pt after Remicade infusion which evidently went well. Minimal stool and gas output. Some nausea with oral intake. Still on clear liquid diet only. Denies SOB. Up and ambulating in halls. Physical Exam Vital Signs: Temp: 97.6 ??F (36.4 ??C) Temp src: Oral BP: 113/70 Pulse: 79 Resp: 20 SpO2: 97 % O2 Device: None (Room air) Weight: 147 lbs 7.8 oz Constitutional:??awake,??alert??and cooperative Eyes:??pupils equal, round and reactive to light??and conjunctiva normal ENT:??normocepalic, without obvious abnormality, atramatic Respiratory:??no increased work of breathing,??good air exchange??and clear to auscultation Cardiovascular:??regular rate and rhythm??and no murmur noted GI:??tender to palpation RLQ with milder discomfort diffusely. No rebound tenderness, diminished bowel sounds Skin:??no bruising or bleeding Neurologic:??alert, oriented, no focal deficits 40 MINUTES SPENT BY ME on the date of service doing chart review, history, exam, documentation & further activities per the note. Data PAST 24 HR DATA REVIEWED Results for orders placed or performed during the hospital encounter of 02/10/23 (from the past 24 hour(s)) XR Gastrografin Challenge Narrative XR GASTROGRAFIN CHALLENGE 02/17/2023 9:45 PM HISTORY: Persistent SBO COMPARISON: Same date abdominal radiograph, CT abdomen/pelvis 02/10/2023 Impression IMPRESSION: Mildly dilated distal small bowel, similar to prior CT scan same day radiograph. Administered oral contrast reached the colon by 8 hours. Cholecystectomy. Multiple pelvic phleboliths. Bones are unchanged. MAIKEL GOODEN MD SYSTEM ID: [id number] * Candy Lennon APRN APPLICATION DESIGN ENGINEER - 02/17/2023 10:17 AM CDT Images from the original note were not included. [facility] Gastroenterology Progress note Interval History: Called back Friday for recurrent symptoms on PO prednisone. Stopped stooling Friday morning (had scant stool x1 yesterday). Nausea got worse this weekend. No vomiting. Moderate RLQ pain. Vital Signs: BP 119/85 (BP Location: Right arm, Patient Position: Semi-Gould's, Cuff Size: Adult Regular) Pulse 73 Temp 97.9 ??F (36.6 ??C) (Oral) Resp 18 Ht 1.6 m (5' 3) Wt 66.9 kg (147 lb 7.8 oz) SpO2 96% BMI 26.13 kg/m?? Temp (24hrs), Av ??F (36.7 ??C), Min:97.9 ??F (36.6 ??C), Max:98.1 ??F (36.7 ??C) Patient Vitals for the past 72 hrs: Weight 02/16/23 1532 66.9 kg (147 lb 7.8 oz) Intake/Output Summary (Last 24 hours) at 02/14/2023 1001 Last data filed at 02/14/2023 0732 Gross per 24 hour Intake 680 ml Output 600 ml Net 80 ml Constitutional: NAD with heating pad on Respiratory: non-labored Abdomen: soft, moderate RLQ pain without rebound nondistended, extremely rare BS Additional Comments: ROS, FH, SH: See initial GI consult for details. Laboratory Data: Recent Labs Lab Test 02/17/23 0702/16/23 0558 02/15/23 1011 02/14/23 0639 WBC 9.6 -- 14.3* 13.5* HGB 11.5* -- 12.5 12.4 MCV 87 -- 87 86 PLT 239 283 303 323 Recent Labs Lab Test 02/17/23 0721 02/16/23 0558 02/15/23 1011 02/14/23 0639 NA 139 -- 138 140 POTASSIUM 3.8 -- 3.2* 4.2 CHLORIDE 105 -- 104 106 CO2 26 -- 24 26 BUN 18.4 -- 22.6 18.1 CR 1.12* 1.13* 1.16* 1.06* ANIONGAP 8 -- 10 8 DAJA 8.4* -- 8.7* 9.0 Recent Labs Lab Test 02/17/23 0721 02/11/23 0700 02/10/23 1854 ALBUMIN 3.1* 3.6 4.2 BILITOTAL 0.4 0.2 0.3 ALT 15 8* 12 AST 10 13 [address] A/P 02/10/2023 1. ??There are segments of narrowed distal small bowel causing a partial small bowel obstruction. No definite active inflammation. No abscess formation. ?? ASSESSMENT AND PLAN:? Crohn's Disease Abdominal Pain Diarrhea Partial SBO ?? This patient is a 62-year-old female who has had gastrointestinal symptoms including nausea, vomiting, unintended weight loss, abdominal pain, and diarrhea in November for which she has undergone an extensive work-up. ??Recent colonoscopy was performed that showed stenosis as well as an ulceration at the ileum, pathology showed nonspecific mildly active chronic ileitis. ??Presentation and work-up ismost consistent with ileal Crohn's disease, though do note that she had been using NSAIDs regularlywhich may affect findings. ?? She was advised to come to the ED due to the severity of her symptoms and as she had not responded to oral prednisone. ??Imaging on arrival showed narrowed distal small bowel causing a partial small bowel obstruction. No??definite active inflammation noted on CT scan, though she has had inflammation noted on recent imaging.?It is likely that her symptoms are a combination of??inflammation related to her underlying Crohn's disease as well as??ileal stenosis??seen during her colonoscopy. Hepatitis B and TB quant gold negative. C. Diff negative. Steroids started 02/11 with resolution of abdominal pain and improvement of diarrhea-- switched back to oral steroid taper on 02/14. Failing PO steroids after being switched on 02/14 with recurrent obstructive symptoms. May need surgery vs initiation of biologic while inpatient. ?? Plan -- NPO, ice chips OK -- Stop oral prednisone. Restart IV solumedrol -- Repeat imaging-- creat slightly up. Will discuss XR vs CT with Dr. Munoz -- Consult CRS after imaging Addendum: Discussed with Dr. Munoz. XR showed nonobstructive bowel gas pattern. Will plan on starting Remicade tomorrow after discussion with patient. Will send note to our biologics department to get approval for outpatient coverage. 25 minutes spent on patient care including chart review, patient visit, documentation, coordination. Candy Lennon CNP [facility] Office: [phone] * Ulises Rondon MD - 02/17/2023 7:23 AM CDT [facility] Medicine Progress Note - Hospitalist Service Date of Admission: 02/10/2023 Assessment & Plan Hortensia Buitrago is a 62 year old female with hx Crohn's disease diagnosed early this year, asthma, and migraines. She presented to emergency room with diarrhea, nausea, and abdominal pain. Working dxis Crohn's disease, unclear whether acutely inflammed v scarring causing partial small bowel obstruction. Admitted and initiated on IV solumedrol and had been improving and transitioned to oral prednisone on 02/14. Since then has had increased post prandial abd pain, nausea and decreased gas and no BM since Friday. GI signed off Friday but re- consulted GI on 02/16. Note past medical history includes renal cell cancer that was managed surgically with right nephrectomy in 2008. In addition, patient underwent hysterectomy in the remote past though she did not tellme the indication. Otherwise, the patient has been quite healthy until this past year when she was having abdominal complaints and was ultimately diagnosed with chron's disease. Colonoscopy completedthrough [facility] evidently showed a distal ileal stricture due to scar. This was also seen on CT scan dated 02/10/2023. Partial small bowel obstruction, persistent pain and low stool output. -noted on CT segments of narrowed distal small bowel causing a partial SBO. No definite active inflammation... -Records from [facility] indicates stenosis of her terminal ileum which I believewas identified on January 28, 2023 on colonoscopy. -possible contribution of narcotics (though the patient has only received about 100 mg tramadol in the last 24 hours). -Refractory to multiple courses of steroid. -Colorectal surgery consultation is requested ?? Possible Crohn's exacerbation. -Gastroenterology following, on PPI -completed 3 days IV steroids, started on long oral prednisone taper 02/14 but has had worsening symptoms since transition. Preceding this admission, also had treatment failure after transitioning to oral prednisone -reconsult GI to evaluate, unclear if developing treatment failure. Acute kidney injury. -Creatinine initially elevated at 1.3. -Likely prerenal due to dehydration from profuse diarrhea -off fluids, Cr stable Leukocytosis -likely from steroids, c dif negative Diarrhea -negative for C dif, sounds like chronic issue for her w/SBO possibly contributing Diet: Advance Diet as Tolerated: Low Fiber; Low Fiber DVT Prophylaxis: Pneumatic Compression Devices Uribe Catheter: Not present Lines: None Cardiac Monitoring: None Code Status: Full Code Disposition Plan To be determined. Patient continues to have incompletely managed medical issues. Ulises Rondon MD Hospitalist Service [facility] Securely message with [employer] (more info) Text page via [facility] Paging/Directory Interval History Chart reviewed, pt interviewed. Pt admitted on 02/10 and started on IV solumedrol with equivocal improvement. In the past couple of days improvement has stalled. I communicated with Dr. Og Munoz today who indicated that it was appropriate to include colorectal surgery and considerations. I later spoke with Dr. Madison Iverson who already completed a consultation today. Gastrografin small bowel follow-through is pending. The patient incidentally noted right calf pain without significant swelling. Physical Exam Vital Signs: Temp: 97.6 ??F (36.4 ??C) Temp src: Oral BP: 113/70 Pulse: 79 Resp: 20 SpO2: 97 % O2 Device: None (Room air) Weight: 147 lbs 7.8 oz Constitutional:??awake,??alert??and cooperative Eyes:??pupils equal, round and reactive to light??and conjunctiva normal ENT:??normocepalic, without obvious abnormality, atramatic Respiratory:??no increased work of breathing,??good air exchange??and clear to auscultation Cardiovascular:??regular rate and rhythm??and no murmur noted GI:??tender to palpation RLQ and milder discomfort diffusely as well. No rebound tenderness, diminished bowel sounds Skin:??no bruising or bleeding Neurologic:??alert, oriented, no focal deficits 50 MINUTES SPENT BY ME on the date of service doing chart review, history, exam, documentation & further activities per the note. Data PAST 24 HR DATA REVIEWED Imaging results reviewed over the past 24 hrs: Results for orders placed or performed during the hospital encounter of 02/10/23 (from the past 24 hour(s)) CBC with Platelets & Differential Narrative The following orders were created for panel order CBC with Platelets & Differential. Procedure Abnormality Status --------- ------ CBC with platelets and d...[[id number]] Abnormal Final result Please view results for these tests on the individual orders. Comprehensive metabolic panel Result Value Ref Range Sodium 139 136 - 145 mmol/L Potassium 3.8 3.4 - 5.3 mmol/L Chloride 105 98 - 107 mmol/L Carbon Dioxide (CO2) 26 22 - 29 mmol/L Anion Gap 8 7 - 15 mmol/L Urea Nitrogen 18.4 8.0 - 23.0 mg/dL Creatinine 1.12 (H) 0.51 - 0.95 mg/dL Calcium 8.4 (L) 8.8 - 10.2 mg/dL Glucose 89 70 - 99 mg/dL Alkaline Phosphatase 57 35 - 104 U/L AST 10 10 - 35 U/L ALT 15 10 - 35 U/L Protein Total 5.0 (L) 6.4 - 8.3 g/dL Albumin 3.1 (L) 3.5 - 5.2 g/dL Bilirubin Total 0.4 <=1.2 mg/dL GFR Estimate 55 (L) >60 mL/min/1.73m2 CBC with platelets and differential Result Value Ref Range WBC Count 9.6 4.0 - 11.0 10e3/uL RBC Count 4.22 3.80 - 5.20 10e6/uL Hemoglobin 11.5 (L) 11.7 - 15.7 g/dL Hematocrit 36.7 35.0 - 47.0 % MCV 87 78 - 100 fL MCH 27.3 26.5 - 33.0 pg MCHC 31.3 (L) 31.5 - 36.5 g/dL RDW 14.7 10.0 - 15.0 % Platelet Count 239 150 - 450 10e3/uL % Neutrophils 64 % % Lymphocytes 25 % % Monocytes 8 % % Eosinophils 1 % % Basophils 0 % % Immature Granulocytes 2 % NRBCs per 100 WBC 0 <1 /100 Absolute Neutrophils 6.2 1.6 - 8.3 10e3/uL Absolute Lymphocytes 2.4 0.8 - 5.3 10e3/uL Absolute Monocytes 0.8 0.0 - 1.3 10e3/uL Absolute Eosinophils 0.1 0.0 - 0.7 10e3/uL Absolute Basophils 0.0 0.0 - 0.2 10e3/uL Absolute Immature Granulocytes 0.2 <=0.4 10e3/uL Absolute NRBCs 0.0 10e3/uL XR Abdomen 2 Views Narrative ABDOMEN TWO VIEWS 02/17/2023 1:04 PM HISTORY: Admit with partial small bowel obstruction re Crohn's, recurrent symptoms. Evaluate for obstruction vs ileus. COMPARISON: CT abdomen and pelvis on 02/10/2023. Impression IMPRESSION: Upright and supine views of the abdomen and pelvis were obtained. Nonobstructive bowel gas pattern. No free peritoneal or portal venous gas. Surgical clips in the right upper quadrant and right mid abdomen. Multiple pelvic phleboliths. QUETA MCLEOD MD US Lower Extremity Venous Duplex Right Narrative VENOUS ULTRASOUND RIGHT LOWER EXTREMITY 02/17/2023 2:32 PM HISTORY: Pain without obvious swelling. Question of deep vein thrombosis (DVT) COMPARISON: None. Technique: Color Doppler and spectral waveform analysis performed throughout the deep veins of the right lower extremity. FINDINGS: The right common femoral, proximal greater saphenous, femoral, and popliteal veins demonstrate normal blood flow, compression, and augmentation. Posterior tibial and peroneal veins are compressible. Contralateral left common femoral vein is patent. Impression IMPRESSION: Negative for DVT in the right lower extremity. MAIKEL PATEL MD * Massiel Mckenna MD - 02/16/2023 6:21 PM CDT GI Brief Note Contacted this evening about request for GI re-evaluation. GI had signed off 02/14. Patient admitted 02/11 with new, recent diagnosis of Crohn's and CT showing partial SBO. Transitioned to oral steroids 02/14, patient with minimal stool output and flatus still having abdominal pain. Is tolerating some low fiber diet and ambulating. Notes reviewed, ongoing abdominal tenderness. Last dilaudid 02/15. Cr trending up slightly. May be having some ileus from narcotics v. Ongoing symptoms from Crohns. - if worsening of pain tonight of fever make NPO and consider repeat imaging - repeat BMP and CBC with morning labs - if no improvement in symptoms tomorrow and creatinine stable could consider repeating imaging We will plan to formally see patient tomorrow, please call in the meantime with questions. Massiel Mckenna MD [facility] [phone] * Calin Pradhan DO - 02/16/2023 1:19 PM CDT [facility] Medicine Progress Note - Hospitalist Service Date of Admission: 02/10/2023 Assessment & Plan Hortensia Buitrago is a 62 year old female with a past medical history significant for Crohn's disease, asthma, and migraines. She presented to emergency room with diarrhea, nausea, and abdominal pain. Found to have acute Crohn's exacerbation causing partial small bowel obstruction. Admitted and initiated on IV solumedrol and had been improving and transitioned to oral prednisone on 02/14. Since then has had increased post prandial abd pain, nausea and decreased gas and no BM since Friday. GI signed off Friday but will reconsult today ?? Partial small bowel obstruction. -noted on CT, 2/2 acute crohns dx -stop IV narcotics, due to drug allergies ok for tramadol -seemed to have resolved but worsening symptoms past 48 hours are concerning ?? Acute Crohn's exacerbation. -Gastroenterology previously following, on PPI -completed 3 days IV steroids, started on long oral prednisone taper 02/14 but has had worsening symptoms since transition. Preceding this admission had treatment failure after transitioning to oral prednisone and is concerned could be happening again -reconsult GI to evaluate, unclear if developing treatment failure. ? If repeat CT would be beneficial Acute kidney injury. -Creatinine initially elevated at 1.3. -Likely prerenal due to dehydration from profuse diarrhea -off fluids, Cr stable Leukocytosis -likely from steroids, c dif negative Diarrhea -negative for C dif, sounds like chronic issue for her w/SBO possibly contributing Diet: Advance Diet as Tolerated: Low Fiber; Low Fiber DVT Prophylaxis: Pneumatic Compression Devices Uribe Catheter: Not present Lines: None Cardiac Monitoring: None Code Status: Full Code Disposition Plan await GI reevaluation and improvement, unclear timetable Calin Pradhan, Hospitalist Service [facility] Securely message with [email or web address] (more info) Text page via [employer] Paging/Directory Interval History Continues to have some post prandial abd discomfort, nausea but no vomiting. Oral intake has been variable but poorer last 24 hours. No fever or chills but has not been passing gas and no BM for a few days. She is concerned about going home on the oral steroids as she had to be readmitted last timeand symptoms have gotten worse since we transitioned from IV to PO steroids. Physical Exam Vital Signs: Temp: (P) 98.8 ??F (37.1 ??C) Temp src: (P) Oral BP: (P) 119/70 Pulse: (P) 83 Resp: (P) 18 SpO2: (P) 96 % O2 Device: (P) None (Room air) Weight: 147 lbs 12.8 oz Constitutional:??awake,??alert??and cooperative Eyes:??pupils equal, round and reactive to light??and conjunctiva normal ENT:??normocepalic, without obvious abnormality, atramatic Respiratory:??no increased work of breathing,??good air exchange??and clear to auscultation Cardiovascular:??regular rate and rhythm??and no murmur noted GI:??exquisitely tender to palpation RLQ and diffusely as well, rebound tenderness, diminished bowel sounds Skin:??no bruising or bleeding Neurologic:??alert, oriented, no focal deficits 45 MINUTES SPENT BY ME on the date of service doing chart review, history, exam, documentation & further activities per the note. Data PAST 24 HR DATA REVIEWED I have personally reviewed the following data over the past 24 hrs: N/A \ N/A / 283 N/A N/A N/A / N/A N/A N/A 1.13 (H) \ Imaging results reviewed over the past 24 hrs: No results found for this or any previous visit (from the past 24 hour(s)). * Calin Pradhan DO - 02/15/2023 2:14 PM CDT [facility] Medicine Progress Note - Hospitalist Service Date of Admission: 02/10/2023 Assessment & Plan Hortensia Buitrago is a 62 year old female with a past medical history significant for Crohn's disease, asthma, and migraines. She presented to emergency room with diarrhea, nausea, and abdominal pain. Found to have acute Crohn's exacerbation causing partial small bowel obstruction. ?? Partial small bowel obstruction. -noted on CT, 2/2 acute crohns dx -seems to be slowly improving as abd pain much improved although nausea and diarrhea persist -diet advanced and overall tolerating well, some mild discomfort while eating rapidly -ok to discharge when patient agreeable, wishes to wait additional day -stop IV narcotics, due to drug allergies ok for tramadol ?? Acute Crohn's exacerbation. -Gastroenterology following -completed 3 days IV steroids, started on long oral prednisone taper 02/14 -on PPI ?? Acute kidney injury. -Creatinine initially elevated at 1.3. -Likely prerenal due to dehydration from profuse diarrhea -off fluids, Cr stable Leukocytosis -likely from steroids, c dif negative Diarrhea -negative for C dif, sounds like chronic issue for her w/SBO possibly contributing Diet: Advance Diet as Tolerated: Low Fiber; Low Fiber DVT Prophylaxis: Pneumatic Compression Devices Uribe Catheter: Not present Lines: None Cardiac Monitoring: None Code Status: Full Code Disposition Plan Ok to discharge from medical perspective, patient wishes to be monitored additional day Calin Pradhan DO Hospitalist Service [facility] Securely message with [employer] (more info) Text page via [facility] Paging/Directory Interval History Mild abd pain, occasional nausea but tolerating diet ok. Reports eating too hastily last night and had some recurrence of discomfort. Afebrile and tolerating steroids well Physical Exam Vital Signs: Temp: 97.7 ??F (36.5 ??C) Temp src: Oral BP: 111/82 Pulse: 76 Resp: 20 SpO2: 98 % O2 Device: None (Room air) Weight: 147 lbs 12.8 oz Constitutional:??awake,??alert??and cooperative Eyes:??pupils equal, round and reactive to light??and conjunctiva normal ENT:??normocepalic, without obvious abnormality, atramatic Respiratory:??no increased work of breathing,??good air exchange??and clear to auscultation Cardiovascular:??regular rate and rhythm??and no murmur noted GI:??markedly improved abd tenderness, no rebound, improved bowel sounds Skin:??no bruising or bleeding Neurologic:??alert, oriented, no focal deficits 45 MINUTES SPENT BY ME on the date of service doing chart review, history, exam, documentation & further activities per the note. Data PAST 24 HR DATA REVIEWED I have personally reviewed the following data over the past 24 hrs: 14.3 (H) \ 12.5 / 303 138 104 22.6 / 115 (H) 3.2 (L) 24 1.16 (H) \ Imaging results reviewed over the past 24 hrs: No results found for this or any previous visit (from the past 24 hour(s)). * Ella Lucia PA-C - 02/14/2023 10:01 AM CDT Images from the original note were not included. [facility]ology Progress note Interval History: No abdominal pain. 4 small loose (not liquid) bowel movements. No rectal bleeding or melena. No n/v. Tolerating low fiber diet. Vital Signs: BP (!) 146/76 (BP Location: Left arm) Pulse 69 Temp 97.9 ??F (36.6 ??C) (Oral) Resp 16 Ht 1.6 m (5' 3) Wt 67 kg (147 lb 12.8 oz) SpO2 97% BMI 26.18 kg/m?? Temp (24hrs), Av ??F (36.7 ??C), Min:97.9 ??F (36.6 ??C), Max:98.1 ??F (36.7 ??C) Patient Vitals for the past 72 hrs: Weight 02/12/23 1203 67 kg (147 lb 12.8 oz) Intake/Output Summary (Last 24 hours) at 02/14/2023 1001 Last data filed at 02/14/2023 0732 Gross per 24 hour Intake 680 ml Output 600 ml Net 80 ml Constitutional: NAD, comfortable, just showered, sitting in bed in street clothes Respiratory: non-labored Abdomen: soft, non-tender, nondistended, +BS Additional Comments: ROS, FH, SH: See initial GI consult for details. Laboratory Data: Recent Labs Lab Test 02/14/23 0639 02/13/23 0656 02/12/23 0858 02/11/23 0700 WBC 13.5* -- 15.2* 12.3* HGB 12.4 -- 12.9 12.1 MCV 86 -- 86 88 PLT 323 327 363 313 Recent Labs Lab Test 02/14/23 0639 02/13/23 0656 02/12/23 0858 02/11/23 0700 NA 140 -- 140 140 POTASSIUM 4.2 -- 5.2 5.1 CHLORIDE 106 -- 105 105 CO2 26 -- 26 25 BUN 18.1 -- 14.2 16.9 CR 1.06* 0.99* 0.93 1.10* ANIONGAP 8 -- 9 10 DAJA 9.0 -- 9.3 8.7* Recent Labs Lab Test 02/11/23 0700 02/10/23 1854 ALBUMIN 3.6 4.2 BILITOTAL 0.2 0.3 ALT 8* 12 AST 13 [address] A/P 02/10/2023 1. ??There are segments of narrowed distal small bowel causing a partial small bowel obstruction. No definite active inflammation. No abscess formation. ?? ASSESSMENT AND PLAN:? Crohn's Disease Abdominal Pain Diarrhea Partial SBO ?? This patient is a 62-year-old female who has had gastrointestinal symptoms including nausea, vomiting, unintended weight loss, abdominal pain, and diarrhea in November for which she has undergone an extensive work-up. ??Recent colonoscopy was performed that showed stenosis as well as an ulceration at the ileum, pathology showed nonspecific mildly active chronic ileitis. ??Presentation and work-up ismost consistent with ileal Crohn's disease, though do note that she had been using NSAIDs regularlywhich may affect findings. ?? She was advised to come to the ED due to the severity of her symptoms and as she had not responded to oral prednisone. ??Imaging on arrival showed narrowed distal small bowel causing a partial small bowel obstruction. No??definite active inflammation noted on CT scan, though she has had inflammation noted on recent imaging.?It is likely that her symptoms are a combination of??inflammation related to her underlying Crohn's disease as well as??ileal stenosis??seen during her colonoscopy. Hepatitis B and TB quant gold negative. C. Diff negative. Steroids started 02/11 with resolution of abdominal pain and improvement of diarrhea-- switched back to oral steroid taper on 02/14 ?? Plan -- Will start on oral prednisone taper-- start with 40mg daily x 7 days and decrease by 5mg every 7days. -- Has [facility] follow up already scheduled at the end of February, continue with this visit. -- Ok for discharge from GI perspective. GI will sign off, please call with questions/concerns. Discussed with Dr. Vernon. 15 minutes spent on patient care including chart review, patient visit, documentation, coordination. Ella Lucia PA-C [facility] Dig[facility]ive Health until 12PM Office: [phone] * Calin Pradhan DO - 02/14/2023 9:08 AM CDT [facility] Medicine Progress Note - Hospitalist Service Date of Admission: 02/10/2023 Assessment & Plan Hortensia Buitrago is a 62 year old female with a past medical history significant for Crohn's disease, asthma, and migraines. She presented to emergency room with diarrhea, nausea, and abdominal pain. Found to have acute Crohn's exacerbation causing partial small bowel obstruction. ?? Partial small bowel obstruction. -noted on CT, 2/2 acute crohns dx -seems to be slowly improving as abd pain much improved although nausea and diarrhea persist -GI advanced diet to clears, patient has been hesitant to advance further so far but obstructive symptoms seem to be resolved -fluids stopped ?? Acute Crohn's exacerbation. -Gastroenterology following -completed 3 days IV steroids, defer start of oral steroids to GI team ?? Acute kidney injury. -Creatinine initially elevated at 1.3. -Likely prerenal due to dehydration from profuse diarrhea -oral intake improving, stop fluids and follow-up BMP in am Leukocytosis -likely from steroids, ruling out C dif as below -afebrile, monitor off antibiotics for now Diarrhea -negative for C dif, sounds like chronic issue for her w/SBO possibly contributing Diet: Advance Diet as Tolerated: Low Fiber; Low Fiber DVT Prophylaxis: Pneumatic Compression Devices Uribe Catheter: Not present Lines: None Cardiac Monitoring: None Code Status: Full Code Disposition Plan Possibly next 1-3 days Calin Pradhan DO Hospitalist Service [facility] Securely message with [email or web address] (more info) Text page via [employer] Paging/Directory Interval History No overnight events. Passing gas and liquid stool but no significant abd pain. Tolerating clear liquids, some nausea but seemed more psychological as didn't like the chicken broth apparently. Physical Exam Vital Signs: Temp: 97.9 ??F (36.6 ??C) Temp src: Oral BP: (!) 146/76 Pulse: 69 Resp: 16 SpO2: 97 % O2 Device: None (Room air) Weight: 147 lbs 12.8 oz Constitutional:??awake,??alert??and cooperative Eyes:??pupils equal, round and reactive to light??and conjunctiva normal ENT:??normocepalic, without obvious abnormality, atramatic Respiratory:??no increased work of breathing,??good air exchange??and clear to auscultation Cardiovascular:??regular rate and rhythm??and no murmur noted GI:??markedly improved abd tenderness, no rebound, improved bowel sounds Skin:??no bruising or bleeding Neurologic:??alert, oriented, no focal deficits 45 MINUTES SPENT BY ME on the date of service doing chart review, history, exam, documentation & further activities per the note. Data PAST 24 HR DATA REVIEWED I have personally reviewed the following data over the past 24 hrs: 13.5 (H) \ 12.4 / 323 140 106 18.1 / 100 (H) 4.2 26 1.06 (H) \ Imaging results reviewed over the past 24 hrs: No results found for this or any previous visit (from the past 24 hour(s)). * Deidra Ramirez RD, LD - 02/14/2023 9:02 AM CDT CLINICAL NUTRITION SERVICES - ASSESSMENT NOTE Recommendations Ordered by Registered Dietitian (RD): Diet per GI - currently on a low fiber diet Malnutrition Diagnosis: Unable to determine due to lack of weight hx, nutrition hx and nutrition focused physical exam REASON FOR ASSESSMENT Hortensia Buitrago is a 62 year old female seen by Registered Dietitian for Admission Nutrition Risk Screen for positive Past medical history: migraine, asthma,? Depression/insomnia Admitted for: Moderately severe exacerbation of Crohn's disease NUTRITION HISTORY - Information obtained from chart - attempted to see patient x 2, patient not available - Food allergies: NKFA CURRENT NUTRITION ORDERS Diet Order: ADAT: Low Fiber Current Intake/Tolerance: No information recorded in the flowsheets to comment on. NPO/clear liquids x 2-3 days. Obtained from Chart/Interdisciplinary Team: - GI following - Reviewed stooling patterns - No documented PI ANTHROPOMETRICS Height: 5' 3 Weight: 67 kg ( 147 lbs 12.8 oz) Body mass index is 26.18 kg/m??. Weight Status: Overweight BMI 25-29.9 Weight History: No weight history to comment Wt Readings from Last 10 Encounters: 02/12/23 67 kg (147 lb 12.8 oz) LABS Labs reviewed Labs: Electrolytes Potassium (mmol/L) Date Value 02/14/2023 4.2 02/12/2023 5.2 02/11/2023 5.1 Blood Glucose Glucose (mg/dL) Date Value 02/14/2023 100 (H) 02/12/2023 130 (H) 02/11/2023 142 (H) 02/10/2023 131 (H) Inflammatory Markers WBC Count (10e3/uL) Date Value 02/14/2023 13.5 (H) 02/12/2023 15.2 (H) 02/11/2023 12.3 (H) Albumin (g/dL) Date Value 02/11/2023 3.6 02/10/2023 4.2 Sodium (mmol/L) Date Value 02/14/2023 140 02/12/2023 140 02/11/2023 140 Renal Urea Nitrogen (mg/dL) Date Value 02/14/2023 18.1 02/12/2023 14.2 02/11/2023 16.9 Creatinine (mg/dL) Date Value 02/14/2023 1.06 (H) 02/13/2023 0.99 (H) 02/12/2023 0.93 Additional Ketones Urine (mg/dL) Date Value 11/30/2004 Negative MEDICATIONS Medications reviewed ??? nortriptyline 25 mg Oral At Bedtime ??? sodium chloride (PF) 3 mL Intracatheter Q8H ??? traZODone 200 mg Oral At Bedtime diphenhydrAMINE, HYDROmorphone, lidocaine 4%, lidocaine (buffered or not buffered), melatonin, naloxone OR naloxone OR naloxone OR naloxone, oxyCODONE, prochlorperazine OR prochlorperazine, sodium chloride (PF) ASSESSED NUTRITION NEEDS PER APPROVED PRACTICE GUIDELINES: Dosing Weight 67 kg Estimated Energy Needs: 9559-8539 kcals (25-30 Kcal/Kg) Justification: maintenance Estimated Protein Needs: 67-80 grams protein (1-1.2 g pro/Kg) Justification: maintenance Estimated Fluid Needs: per MD NUTRITION DIAGNOSIS: Predicted inadequate nutrient intake related to potential for PO intake to decline pending clinicalcourse - diet tolerance NUTRITION INTERVENTIONS Recommendations / Nutrition Prescription Diet per GI - currently on a low fiber diet Implementation Nutrition education: patient not available in the room with 2 attempts, left low fiber handouts in her room. Nutrition Goals Patient to consume 75% of meals or oral nutritional supplements ordered TID MONITORING AND EVALUATION: Progress towards goals will be monitored and evaluated per protocol and Practice Guidelines Deidra Ramirez RD, LD Clinical Dietitian 3rd floor/ICU: [phone] All other floors: [phone] Weekend/holiday: [phone] Office: [phone] * Calin Pradhan DO - 02/13/2023 1:00 PM CDTFormatting of this note is different from the [facility] Medicine Progress Note - Hospitalist Service Date of Admission: 02/10/2023 Assessment & Plan Hortensia Buitrago is a 62 year old female with a past medical history significant for Crohn's disease, asthma, and migraines. She presented to emergency room with diarrhea, nausea, and abdominal pain. Found to have acute Crohn's exacerbation causing partial small bowel obstruction. ?? Partial small bowel obstruction. -noted on CT, 2/2 acute crohns dx -seems to be slowly improving as abd pain much improved although nausea and diarrhea persist -GI advanced diet to clears today, monitor response -decrease IVF to 75 until consistently tolerating oral intake ?? Acute Crohn's exacerbation. -Gastroenterology following -tolerating IV steroids well, await further improvement ?? Acute kidney injury. -Creatinine initially elevated at 1.3. -Likely prerenal due to dehydration from profuse diarrhea -CLD and fluids as above Leukocytosis -likely from steroids, ruling out C dif as below -afebrile, monitor off antibiotics for now Diarrhea -negative for C dif Diet: NPO for Medical/Clinical Reasons Except for: Ice Chips DVT Prophylaxis: Pneumatic Compression Devices Uribe Catheter: Not present Lines: None Cardiac Monitoring: None Code Status: Full Code Disposition Plan await improvement, unclear timetable Calin Pradhan, DO Hospitalist Service [facility] Securely message with [employer] (more info) Text page via [facility] Paging/Directory Interval History No significant overnight events, still with some pain but seems more positional and able to press on her own abdomen today. Still with some persistent nausea and diarrhea but no vomiting. No fever orchills Physical Exam Vital Signs: Temp: 98.2 ??F (36.8 ??C) Temp src: Oral BP: (!) 145/86 Pulse: 74 Resp: 13 SpO2: 97 % O2 Device: None (Room air) Weight: 147 lbs 12.8 oz Constitutional: awake, alert and cooperative Eyes: pupils equal, round and reactive to light and conjunctiva normal ENT: normocepalic, without obvious abnormality, atramatic Respiratory: no increased work of breathing, good air exchange and clear to auscultation Cardiovascular: regular rate and rhythm and no murmur noted GI: markedly improved abd tenderness, no rebound, improved bowel sounds Skin: no bruising or bleeding Neurologic: alert, oriented, no focal deficits 55 MINUTES SPENT BY ME on the date of service doing chart review, history, exam, documentation & further activities per the note. Data PAST 24 HR DATA REVIEWED I have personally reviewed the following data over the past 24 hrs: N/A \ N/A / 327 N/A N/A N/A / N/A N/A N/A 0.99 (H) \ Imaging results reviewed over the past 24 hrs: No results found for this or any previous visit (from the past 24 hour(s)). * Ella Lucia PA-C - 02/13/2023 12:54 PM CDT Images from the original note were not included. [place] [facility] G[facility]ology Progress note Interval History: Doing much better- feels like a new person. No abdominal pain even with palpation. Stools seem barak forming up somewhat. About 8 bowel movements per 24 hours. No bloody or black stools. No n/v. Vital Signs: BP (!) 145/86 (BP Location: Right arm) Pulse 74 Temp 98.2 ??F (36.8 ??C) (Oral) Resp 13 Ht 1.6 m (5' 3) Wt 67 kg (147 lb 12.8 oz) SpO2 97% BMI 26.18 kg/m?? Temp (24hrs), Av.1 ??F (36.7 ??C), Min:98.1 ??F (36.7 ??C), Max:98.2 ??F (36.8 ??C) Patient Vitals for the past 72 hrs: Weight 02/12/23 1203 67 kg (147 lb 12.8 oz) 02/11/23 0052 68.9 kg (152 lb) Intake/Output Summary (Last 24 hours) at 02/13/2023 1254 Last data filed at 02/13/2023 0400 Gross per 24 hour Intake -- Output 1000 ml Net -1000 ml Constitutional: NAD, comfortable, sitting up in bed. Is in street clothes- t shirt and shorts. Cardiovascular: RRR Respiratory: Non-labored Abdomen: soft, non-tender, nondistended, +BS Additional Comments: ROS, FH, SH: See initial GI consult for details. Laboratory Data: Recent Labs Lab Test 02/13/2356 02/12/23 0858 02/11/23 0702/10/23 1854 WBC -- 15.2* 12.3* 14.2* HGB -- 12.9 12.1 13.1 MCV -- 86 88 87 PLT 327 363 313 404 Recent Labs Lab Test 02/13/2356 02/12/23 0858 02/11/23 0702/10/23 1854 NA -- 140 140 140 POTASSIUM -- 5.2 5.1 4.7 CHLORIDE -- 105 105 102 CO2 -- 26 25 24 BUN -- 14.2 16.9 14.7 CR 0.99* 0.93 1.10* 1.26* ANIONGAP -- 9 10 14 DAJA -- 9.3 8.7* 9.1 Recent Labs Lab Test 02/11/23 0700 02/10/23 1854 ALBUMIN 3.6 4.2 BILITOTAL 0.2 0.3 ALT 8* 12 AST 13 [address] A/P 02/10/2023 1. ??There are segments of narrowed distal small bowel causing a partial small bowel obstruction. No definite active inflammation. No abscess formation. ?? ASSESSMENT AND PLAN:? Crohn's Disease Abdominal Pain Diarrhea Partial SBO ?? This patient is a 62-year-old female who has had gastrointestinal symptoms including nausea, vomiting, unintended weight loss, abdominal pain, and diarrhea in November for which she has undergone an extensive work-up. ??Recent colonoscopy was performed that showed stenosis as well as an ulceration at the ileum, pathology showed nonspecific mildly active chronic ileitis. ??Presentation and work-up ismost consistent with ileal Crohn's disease, though do note that she had been using NSAIDs regularlywhich may affect findings. She was advised to come to the ED due to the severity of her symptoms and as she had not responded to oral prednisone. ??Imaging on arrival showed narrowed distal small bowel causing a partial small bowel obstruction. No??definite active inflammation noted on CT scan, though she has had inflammation noted on recent imaging.?It is likely that her symptoms are a combination of??inflammation related to her underlying Crohn's disease as well as??ileal stenosis??seen during her colonoscopy. She may benefit from colorectal surgery consult if she does not respond to steroids-- hepatitis B negative, TB quant pending. C. Diff negative. Steroids started 02/11 with resolution of abdominal pain and improvement of diarrhea. ?? Plan --Advance to clear liquids and if going well, can advance as tolerated to low fiber --Pain management per primary team. --IV Solumedrol Q8H. Will likely switch to oral steroid taper tomorrow. --Quantiferon gold pending Will discuss with Dr. Vernon. 20 minutes spent on patient care including chart review, patient visit, documentation, coordination. Ella Lucia PA-C [facility] until 12PM Office: [phone] * Keiry Freeman, RN - 02/12/2023 11:40 PM CDT [id number] Orientation: Alert and oriented. VSS. Htn. RA. LS: Clear GI: Abdominal discomfort and tenderness. Per pt improved since yesterday. Passing gas. BM x5. Continuous nausea. Compazine x3 with relief. Per pt when has ice chips she feels she has a BM shortly after. C-diff tested, negative. : Adequate urine output. Skin: WDL Activity: Independent. Pt attempting to sleep between cares. IV benadryl x2 for sleep. Pain: 2-02/15. IV dilaudid x1 Updates/Plan: Pt got new IV in left forearm, intermittently tender. Hot compress applied with decrease in IV rate to 75 mL/hr with relief. Continue with IVF, Q8 IV solumedrol. Pain/nausea management.Monitor I&Os. * Calin Pradhan DO - 02/12/2023 1:36 PM CDT [facility] Medicine Progress Note - Hospitalist Service Date of Admission: 02/10/2023 Assessment & Plan Hortensia Buitrago is a 62 year old female with a past medical history significant for Crohn's disease, asthma, and migraines. She presented to emergency room with diarrhea, nausea, and abdominal pain. Found to have acute Crohn's exacerbation causing partial small bowel obstruction. ?? Partial small bowel obstruction. -noted on CT, tolerating some ice chips -GI following, advance diet per them ?? Acute Crohn's exacerbation. -Gastroenterology following -tolerating IV steroids well, await further improvement ?? Acute kidney injury. -Creatinine initially elevated at 1.3. -Likely prerenal due to dehydration from profuse diarrhea. -now improved, cont IVF until oral intake improved Leukocytosis -likely from steroids, ruling out C dif as below -afebrile, monitor off antibiotics for now Diarrhea -check C dif Diet: NPO for Medical/Clinical Reasons Except for: Ice Chips DVT Prophylaxis: Pneumatic Compression Devices Uribe Catheter: Not present Lines: None Cardiac Monitoring: None Code Status: Full Code Disposition Plan Await improvement, likely another 1-2 days at least Calin Pradhan DO Hospitalist Service [facility] Securely message with [employer] (more info) Text page via [employer] Paging/Directory Interval History She's hungry but only tolerating ice chips currently. Severe abd pain with palpation but not in much pain at rest. Afebrile overnight, did have some diarrhea overnight-appx 8 stools and C dif is ordered Physical Exam Vital Signs: Temp: 98.1 ??F (36.7 ??C) Temp src: Oral BP: (!) 153/90 Pulse: 76 Resp: 16 SpO2: 98 % O2 Device: None (Room air) Weight: 147 lbs 12.8 oz Constitutional: awake, alert and cooperative Eyes: pupils equal, round and reactive to light and conjunctiva normal ENT: normocepalic, without obvious abnormality, atramatic Respiratory: no increased work of breathing, good air exchange and clear to auscultation Cardiovascular: regular rate and rhythm and no murmur noted GI: exquisitely tender to palpation rather diffusely, decreased but present bowel sounds Skin: no bruising or bleeding Neurologic: alert, oriented, no focal deficits 45 MINUTES SPENT BY ME on the date of service doing chart review, history, exam, documentation & further activities per the note. Data PAST 24 HR DATA REVIEWED I have personally reviewed the following data over the past 24 hrs: 15.2 (H) \ 12.9 / 363 140 105 14.2 / 130 (H) 5.2 26 0.93 \ Imaging results reviewed over the past 24 hrs: No results found for this or any previous visit (from the past 24 hour(s)). * Ella Lucia PA-C - 02/12/2023 10:12 AM CDT Images from the original note were not included. [place] [facility] Gastroenterology Progress note Interval History: Patient seen in the morning. RLQ pain persists but has improved. 8 bowel movements since 1 AM (notes that as an outpatient she had been having 15 BMs per 24 hours). Some waves of nausea, no vomiting.Ice chips with some increased pain. Vital Signs: BP 137/83 Pulse 88 Temp 98 ??F (36.7 ??C) (Oral) Resp 16 Ht 1.6 m (5' 3) Wt 68.9 kg (152lb) SpO2 98% BMI 26.93 kg/m?? Temp (24hrs), Av.1 ??F (36.7 ??C), Min:97.8 ??F (36.6 ??C), Max:98.2 ??F (36.8 ??C) Patient Vitals for the past 72 hrs: Weight 02/11/23 0052 68.9 kg (152 lb) Intake/Output Summary (Last 24 hours) at 02/12/2023 1012 Last data filed at 02/12/2023 0527 Gross per 24 hour Intake 2201.25 ml Output 2300 ml Net -98.75 ml Constitutional: NAD, comfortable, laying in bed, wearing street clothes Cardiovascular: RRR Respiratory: non-labored Abdomen: soft, non-distended, +BS, tender RLQ Additional Comments: ROS, FH, SH: See initial GI consult for details. Laboratory Data: Recent Labs Lab Test 02/12/23 0858 02/11/23 0700 02/10/23 1854 WBC 15.2* 12.3* 14.2* HGB 12.9 12.1 13.1 MCV 86 88 87 PLT 363 313 404 Recent Labs Lab Test 02/12/23 0858 02/11/23 0700 02/10/23 1854 NA 140 140 140 POTASSIUM 5.2 5.1 4.7 CHLORIDE 105 105 102 CO2 26 25 24 BUN 14.2 16.9 14.7 CR 0.93 1.10* 1.26* ANIONGAP 9 10 14 DAJA 9.3 8.7* 9.1 Recent Labs Lab Test 02/11/23 0700 02/10/23 1854 ALBUMIN 3.6 4.2 BILITOTAL 0.2 0.3 ALT 8* 12 AST 13 [address] A/P 02/10/2023 1. ??There are segments of narrowed distal small bowel causing a partial small bowel obstruction. No definite active inflammation. No abscess formation. ?? ASSESSMENT AND PLAN:?? Crohn's Disease Abdominal Pain Diarrhea Partial SBO ?? This patient is a 62-year-old female who has had gastrointestinal symptoms including nausea, vomiting, unintended weight loss, abdominal pain, and diarrhea in November for which she has undergone an extensive work-up. Recent colonoscopy was performed that showed stenosis as well as an ulceration at the ileum, pathology showed nonspecific mildly active chronic ileitis. Presentation and work-up is most consistent with ileal Crohn's disease, though do note that she had been using NSAIDs regularly which may affect findings. ?? She was advised to come to the ED yesterday due to the severity of her symptoms and as she had not responded to oral prednisone. Imaging on arrival showed narrowed distal small bowel causing a partial small bowel obstruction. No definite active inflammation noted on CT scan, though she has had inflammation noted on recent imaging. It is likely that her symptoms are a combination of inflammation related to her underlying Crohn's disease as well as ileal stenosis seen during her colonoscopy. She may benefit from colorectal surgery consult if she does not respond to steroids. We did briefly discuss long-term management of Crohn's disease with biologic therapy as well today. IV steroids started on 02/11. ?? Plan --NPO for now. --C diff pending. --Pain management per primary team. --IV Solumedrol Q8H. --Hepatitis B serologies, quantiferon gold pending --Will consider CRS consult if she does not respond to steroids- would give the IV steroids at least another day. Will discuss with Dr. Vernon. 20 minutes spent on patient care including chart review, patient visit, documentation, coordination. Ella Lucia PA-C [facility] until 12PM Office: [phone] * Candy Miller RN - 02/12/2023 6:34 AM CDT Shift Summary - Pt vital sign stable and afebrile. Pt has appeared to have rested throughout shift, but reports shewas unable to sleep much at all. Pt did receive a new PIV to right hand, and IV fluids continue to infuse per orders. Pt remains NPO, except for ice chips. Pt received dilaudid x1 and compazine x1 this shift. Many visitors at beginning of shift, but no calls/visits since 2029. Passing flatus. Pt upto bathroom to void and reports several loose/liqud stools since around 0. Will continue to monitor pts comfort level, intake/output, vital signs, and provide interventions as needed. * Keiry Fereman RN - 02/11/2023 7:09 PM CDT Orientation: Alert and oriented. VSS. RA. LS: Clear GI: Abdominal discomfort/tenderness. Not Passing gas. No BM. Denies N/V. : Adequate urine output. Skin: WDL Activity: Independent. SBA with unplugging PIV pole. Pain: 3-6/10. 0.3 mg IV dilaudid x1. Heat applied. Updates/Plan: IVF. IV solumedrol. Continue with current cares. * Swapnil Lawrence DO - 02/11/2023 12:32 PM CDT [facility] Medicine Progress Note - Hospitalist Service Date of Admission: 02/10/2023 Assessment & Plan Hortensia Buitrago is a 62 year old female with a past medical history significant for Crohn's disease, asthma, and migraines. She presented to emergency room with diarrhea, nausea, and abdominal pain. Found to have acute Crohn's exacerbation causing partial small bowel obstruction. Partial small bowel obstruction. -NPO. -Continuous IV fluids. -Gastroenterology consult. Acute Crohn's exacerbation. -Gastroenterology consult. -IV fluids. -IV methylprednisolone. -Pain medications as needed. Acute kidney injury. -Creatinine initially elevated at 1.3. -Likely prerenal due to dehydration from profuse diarrhea. -Creatinine improved 1.1 today. -Continue IV fluids. -Avoid nephrotoxins as able. -Recheck metabolic panel tomorrow. Diet: NPO for Medical/Clinical Reasons Except for: Ice Chips DVT Prophylaxis: Pneumatic Compression Devices Uribe Catheter: Not present Lines: None Cardiac Monitoring: None Code Status: Full Code Clinically Significant Risk Factors Present on Admission # Overweight: Estimated body mass index is 26.93 kg/m?? as calculated from the following: Height as of this encounter: 1.6 m (5' 3). Weight as of this encounter: 68.9 kg (152 lb). Disposition Plan Expected Discharge Date: 02/12/2023 Swapnil Lawrence DO Hospitalist Service [facility] Securely message with [employer] (more info) Text page via [employer] Paging/Directory Interval History Having abdominal pain. No diarrhea since last night. Occasional nausea. [place] chills. Denies chest pain, shortness of breath, fevers. Physical Exam Vital Signs: Temp: 97.8 ??F (36.6 ??C) Temp src: Oral BP: 132/77 Pulse: 78 Resp: 16 SpO2: 97 % O2 Device: None (Room air) Weight: 152 lbs 0 oz Gen: NAD, A&Ox3. Eyes: PERRL, sclera anicteric. OP: MMM, no lesions. Neck: Supple. CV: Regular, no murmurs. Lung: CTA b/l, normal effort. Ab: +BS, soft. Skin: Warm, dry to touch. No rash. Ext: No pitting edema LE b/l. Medical Decision Making 32 MINUTES SPENT BY ME on the date of service doing chart review, history, exam, documentation & further activities per the note. Data I have personally reviewed the following data over the past 24 hrs: 12.3 (H) \ 12.1 / 313 140 105 16.9 / 142 (H) 5.1 25 1.10 (H) \ ALT: 8 (L) AST: 13 AP: 68 TBILI: 0.2 ALB: 3.6 TOT PROTEIN: 5.7 (L) LIPASE: N/A Imaging results reviewed over the past 24 hrs: Recent Results (from the past 24 hour(s)) CT Abdomen Pelvis w Contrast Narrative EXAM: CT ABDOMEN PELVIS W CONTRAST LOCATION: [facility] DATE/TIME: 02/10/2023 10:57 PM CDT INDICATION: RLQ pain; Crohn's. COMPARISON: None. TECHNIQUE: CT scan of the abdomen and pelvis was performed following injection of IV contrast. Multiplanar reformats were obtained. Dose reduction techniques were used. CONTRAST: 75 mL Isovue 370 FINDINGS: LOWER CHEST: Normal. HEPATOBILIARY: The gallbladder is absent. PANCREAS: Normal. SPLEEN: Normal. ADRENAL GLANDS: Normal. KIDNEYS/BLADDER: The right kidney is absent. The left kidney is unremarkable. BOWEL: There are several narrowed segments of ileum with resulting small bowel dilatation proximally. No definite active inflammatory changes. There is no free intraperitoneal gas. Trace amount of free pelvic fluid. LYMPH NODES: Normal. VASCULATURE: Atherosclerotic calcification of the aorta and its branches. No aneurysm. PELVIC ORGANS: The uterus is absent. There is no adnexal mass. MUSCULOSKELETAL: Degenerative disease in the spine. Impression IMPRESSION: 1. There are segments of narrowed distal small bowel causing a partial small bowel obstruction. No definite active inflammation. No abscess formation. * Candy Westbrook - 02/11/2023 11:41 AM CDT SPIRITUAL HEALTH SERVICES Progress Note Peds (Adult patient) Saw pt Hortensia Buitrago per admission request for visit. Daughter present. Patient/Family Understanding of Illness and Goals of Care - Patient understands that she is at due to complications from Crohn's disease. Distress and Loss - She is concerned that she might need surgery. Strengths, Coping, and Resources - Her daughters are loving and supportive. Meaning, Beliefs and Spirituality - She is [employer] and finds comfort in reading scripture. Plan of Care - No spiritual needs at this time. [facility] Licensed Practical Nurse * Candy Miller RN - 02/11/2023 12:50 AM CDT Pt arrived to floor, from ED, at this time. Pt transported via cart and escorted by ED staff. Pt ambulated from cart to scale, then to bed, independently. Pt rating abdominal pain 5 (0-10 scale), andreports it is less than earlier. Pt is complaining of intermittent nausea. Pt oriented to room, floor, and plan for shift. Pt given scheduled solumedrol and prn compazine. Pts allergies reviewed and allergy band placed on right wrist. Pt became tearful when she stated it was recently her 20th anniversary and they were to be in [place] at this time. Pt accepted spiritual health services visit whilehere. Will continue to monitor pt comfort level, intake/output, vital signs, and provide interventions as needed. documented in this encounter H&P Notes * Lukasz Weaver MD - 02/10/2023 11:36 PM CDT [facility] History and Physical - Hospitalist Service Date of Admission: 02/10/2023 Assessment & Plan Hortensia Buitrago is a 62 year old female admitted on 02/10/2023. Moderately severe exacerbation of Crohn's disease CT scan shows segments of narrowing distal small bowel causing a partial bowel obstruction Patient comes with nausea vomiting abdominal pain and diarrhea Has failed oral prednisone therapy of 40 mg daily as outpatient and continue to have up to 14 loosestools. Will give IV Solu-Medrol IV fluids Nausea medication Compazine which could also help in her headache Pain medication Keep patient n.p.o. Consult GI Give Lovenox for DVT prophylax Asthma Without any acute exacerbation Give ProAir as needed Migraine We will give Compazine which will have both nausea as well as migraine Acute kidney injury Probably from dehydration from having 14 loose stools Insomnia Depression Trazodone will be continued after medication reconciliation is done and patient can eat Medication reconciliation has not been completed as yet Diet: NPO DVT Prophylaxis: Enoxaparin (Lovenox) SQ Uribe Catheter: Not present Lines: None Cardiac Monitoring: None Code Status: Full code Clinically Significant Risk Factors Present on Admission Disposition Plan Inpatient admission Lukasz Weaver MD Hospitalist Service [facility] Securely message with [employer] (more info) Text page via [employer] Paging/Directory Chief Complaint Diarrhea History is obtained from the patient, medical records and my discussion with emergency department physician History of Present Illness Hortensia Buitrago is a 62 year old lady with history of migraine, asthma,? Depression/insomnia came into [facility] 02/10/2023 with symptoms of diarrhea which has been ongoing for the past 10 days for more. She was started on prednisone 10 days ago increased from 5 mg daily to 40 mg daily. This has not decreased her symptoms but rather has increased abdominal pain which she describes as10/10 in the lower abdomen suprapubic area. She had 14 loose stools on the day of admission. There was no blood in it it was somewhat dark in color. She denies any fever because she does not check itnevertheless had chills on and off. She has nausea and vomited many times since November. She vomited a day prior to admission. Past Medical History Asthma Migraine Crohn's disease diagnosed in colonoscopy that was done 01/29/2023 Past Surgical History No past surgical history on file. Prior to Admission Medications Patient said that she takes Lasix 40 mg daily Nortriptyline 25 mg daily for migraine prednisone 5 mg daily that was increased as mentioned above ProAir inhaler for asthma Zofran as needed Trazodone 200 mg daily Review of Systems Has had a headache especially since contrast was given for CT scan, there is no blurring of vision or double vision, neck pain jaw pain or shoulder pain, chest pain, shortness of breath, cough or increased sputum production, otherwise as mentioned above has nausea, vomiting, abdominal pain, diarrhea. Denies any urinary symptoms of burning or increased frequency. Denies any weakness of upper or lower extremities or any seizure activity. Fever but has chills. Denies bleeding from anywhere else. No rashes or cellulitis. Social History Denies any smoking rarely drinks alcohol lives with her Family History Patient's nieces and nephews have Crohn's disease Allergies Allergies Allergen Reactions ??? Demerol Hcl [Meperidine] N/V ??? Oxycodone N/V ??? Percocet [Oxycodone-Acetaminophen] N/V Physical Exam Vital Signs: Temp: 98.2 ??F (36.8 ??C) Temp src: Temporal BP: (!) 140/98 Pulse: 100 Resp: 20 SpO2: 98 % Weight: 0 lbs 0 oz GENERAL: Patient does not look in any acute distress HEENT: EOM+, Conjunctiva is clear NECK: no Jugular Venous distention HEART: S1 S2 regular Rate and Rhythm, no murmur, LUNGS: Respirations are not laboured, Lungs are clear to auscultation Crepitations or Wheezing ABDOMEN: Soft, there is RLQ tenderness, Bowel Sounds are Positive LOWER LIMBS: no Pedal Edema Bilaterally DIRECTOR OF FINANCIAL REPORTING: Alert, Oriented x 3, Moving all the Four Limbs Data Imaging results reviewed over the past 24 hrs: Recent Results (from the past 24 hour(s)) CT Abdomen Pelvis w Contrast Narrative EXAM: CT ABDOMEN PELVIS W CONTRAST LOCATION: [facility] DATE/TIME: 02/10/2023 10:57 PM CDT INDICATION: RLQ pain; Crohn's. COMPARISON: None. TECHNIQUE: CT scan of the abdomen and pelvis was performed following injection of IV contrast. Multiplanar reformats were obtained. Dose reduction techniques were used. CONTRAST: 75 mL Isovue 370 FINDINGS: LOWER CHEST: Normal. HEPATOBILIARY: The gallbladder is absent. PANCREAS: Normal. SPLEEN: Normal. ADRENAL GLANDS: Normal. KIDNEYS/BLADDER: The right kidney is absent. The left kidney is unremarkable. BOWEL: There are several narrowed segments of ileum with resulting small bowel dilatation proximally. No definite active inflammatory changes. There is no free intraperitoneal gas. Trace amount of free pelvic fluid. LYMPH NODES: Normal. VASCULATURE: Atherosclerotic calcification of the aorta and its branches. No aneurysm. PELVIC ORGANS: The uterus is absent. There is no adnexal mass. MUSCULOSKELETAL: Degenerative disease in the spine. Impression IMPRESSION: 1. There are segments of narrowed distal small bowel causing a partial small bowel obstruction. No definite active inflammation. No abscess formation. Most Recent 3 CBC's:Recent Labs Lab Test 02/10/23 185 WBC 14.2* HGB 13.1 MCV 87 PLT 404 Most Recent 3 BMP's:Recent Labs Lab Test 02/10/231853 NA 140 POTASSIUM 4.7 CHLORIDE 102 CO2 24 BUN 14.7 CR 1.26* ANIONGAP 14 DAJA 9.1 GLC 131* Most Recent 2 LFT's:Recent Labs Lab Test 02/10/231853 AST 13 ALT 12 ALKPHOS 81 BILITOTAL 0.3 documented in this encounter Consult Notes * Deidra Ramirez, BERNARDINO, LD - 02/18/2023 12:36 PM CDTAssociated Order(s): NUTRITION SERVICES ADULT IP CONSULT CLINICAL NUTRITION SERVICES - REASSESSMENT NOTE Recommendations Ordered by Registered Dietitian (RD): Diet advancement per MD - if unable to advance the diet and considering alternative nutrition supplementation please consult with pharmacy/nutrition to start and manage TPN Ordered Ensure Clear BID between meals (la), discussed changing to more calorically dense optionof ensure enlive once diet advances. Ariel prefers chocolate. Malnutrition: % Weight Loss: > 2% in 1 week (severe malnutrition) % Intake: </= 75% for >/= 7 days (moderatemalnutrition) Subcutaneous Fat Loss: None observed Muscle Loss: None observed Fluid Retention: None noted Malnutrition Diagnosis: Moderate malnutrition In Context of: Acute illness or injury Chronic illness or disease EVALUATION OF PROGRESS TOWARD GOALS Diet: Clear Liquids Intake/Tolerance: Patient NPO/clear liquids x 3 days, then advanced to low fiber on 02/14. Downgradedto NPO on 02/17 given recurrence of obstructive symptoms. Increased back to clear liquids on 02/18. Patient consuming bites-50% of meals ordered when diet order allowed. Overall consuming <50-75% ofnutritional needs during admission. 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 Was consuming a meal food and beverage associate at the request of her daughter. NKFA. Answered questions surrounding low fiber diet handout provided on 02/14. ASSESSED NUTRITION NEEDS: ?? Dosing Weight 67 kg Estimated Energy Needs: 4756-9330 kcals (25-30 Kcal/Kg) Justification: maintenance Estimated Protein Needs: 67-80 grams protein (1-1.2 g pro/Kg) Justification: maintenance Estimated Fluid Needs: per MD ?? NEW FINDINGS: - GI following - Received nutrition education consult with the comment pt with Crohns and related partial SBO. ??Needs info about supplements as well as ultimate plan for low fiber diet. RD provided handouts on the low fiber diet on 02/14. - labs: Labs: Electrolytes Potassium (mmol/L) Date Value 02/17/2023 3.8 02/15/2023 3.2 (L) 02/14/2023 4.2 Blood Glucose Glucose (mg/dL) Date Value 02/17/2023 89 02/15/2023 115 (H) 02/14/2023 100 (H) 02/12/2023 130 (H) 02/11/2023 142 (H) Inflammatory Markers WBC Count (10e3/uL) Date Value 02/17/2023 9.6 02/15/2023 14.3 (H) 02/14/2023 13.5 (H) Albumin (g/dL) Date Value 02/17/2023 3.1 (L) 02/11/2023 3.6 02/10/2023 4.2 Sodium (mmol/L) Date Value 02/17/2023 139 02/15/2023 138 02/14/2023 140 Renal Urea Nitrogen (mg/dL) Date Value 02/17/2023 18.4 02/15/2023 22.6 02/14/2023 18.1 Creatinine (mg/dL) Date Value 02/17/2023 1.12 (H) 02/16/2023 1.13 (H) 02/15/2023 1.16 (H) Additional Ketones Urine (mg/dL) Date Value 11/30/2004 Negative - medications: ??? famotidine 20 mg Oral At Bedtime ??? inFLIXimab 300 mg Intravenous Once ??? methylPREDNISolone 20 mg Intravenous Q8H ??? montelukast 10 mg Oral At Bedtime ??? nortriptyline 25 mg Oral At Bedtime ??? sodium chloride (PF) 3 mL Intracatheter Q8H ??? traZODone 200 mg Oral At Bedtime ??? 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 Weight loss of 2.8 kg (4%) since admission Vitals: 02/11/23 0052 02/12/23 1203 02/16/23 1532 02/17/23 1044 Weight: 68.9 kg (152 lb) 67 kg (147 lb 12.8 oz) 66.9 kg (147 lb 7.8 oz) 66.1 kg (145 lb 11.2 oz) Previous Goals: Patient to consume 75% of meals or oral nutritional supplements ordered TID Evaluation: Not met Previous Nutrition Diagnosis: Predicted inadequate nutrient intake related to potential for PO intake to decline pending clinicalcourse - diet tolerance Evaluation: Declining CURRENT NUTRITION DIAGNOSIS Inadequate oral intake related to altered GI function as evidenced by patient likely consuming <50-75% of nutritional needs x 8 days, currently on clear liquids INTERVENTIONS Recommendations / Nutrition Prescription Diet advancement per MD - if unable to advance the diet and considering alternative nutrition supplementation please consult with pharmacy/nutrition to start and manage TPN Ordered Ensure Clear BID between meals (la), discussed changing to more calorically dense optionof ensure enlive once diet advances. Ariel prefers chocolate. Implementation Medical Food Supplement: as above Goals Diet advancement to >/=full liquids in the next 24-48 hours vs consideration of nutrition support MONITORING AND EVALUATION: Progress towards goals will be monitored and evaluated per protocol and Practice Guidelines Deidra Ramirez RD, LD Clinical Dietitian 3rd floor/ICU: [phone] All other floors: [phone] Weekend/holiday: [phone] Office: [phone] * Roberta Ramirez PA-C - 02/17/2023 12:54 PM CDTAssociated Order(s): COLORECTAL SURGERY IP CONSULT [facility] Colon [facility] Rectal Surgery Consult Note Name: Hortensia Buitrago Date of : 1960 Age: [age] year old Date of admission: 02/10/2023 Primary care provider: No Ref-Primary, Physician Requesting Physician: Dr. Rondon Reason for consult: SBO History of Present Illness: Hortensia Buitrago is a 62 year old female with a recent diagnosis of Crohn's, seen at the request of Dr. Rondon, presents with abdominal pain and nausea. Patient has been having ongoing abdominal symptoms since November. She then had a colonoscopy on January 28 which revealed inflammation with ulceration and stenosis at the terminal ileum. Biopsies showed mild active chronic ileitis at the TI. She was started on oral steroids for 10 days for which she did not have any improvement. She was then recommended to present to the ER given ongoing symptoms for possible IV steroids. In the ER, she was afebrile and vital signs were within normal limits. Labs were remarkable for creatinine 1.26, WBC 14.2, and a hgb 13.1. A CT scan of the abdomen/pelvis revealedsegments of narrowed distal small bowel causing a partial SBO. She was admitted for further manageme nt. GI was consulted and she was started on IV steroids. Initially she showed improvement and was advanced to a low fiber diet. Unfortunately, after starting the oral steroids on 02/14 she started to have repeat obstructive symptoms including increased nausea and abdominal pain. GI was re-consulted and are planning to restart her on IV steroids. Patient was resting comfortably in her chair. She is still having abdominal pain that is worse withany oral intake. She is nauseous, but has not had any episodes of vomiting. Her last true bowel movement was on Friday (4 days ago). She had a small loose stool yesterday. She has not passed any gas recently. Colonoscopy History: 01/28/23: Inflammation with ulceration and stenosis at the terminal ileum. Biopsies showed mild active chronic ileitis at the TI. Surgical History: Right nephrectomy, appendectomy, cholecystectomy Past [...] Nausea and Vomiting ??? Mold Medications: ??? famotidine 20 mg Oral At Bedtime ??? methylPREDNISolone 20 mg Intravenous Q8H ??? [...] for contributory info. Physical Exam: Blood pressure 119/85, pulse 73, temperature 97.9 ??F (36.6 ??C), temperature source Oral, resp. rate 18, height 1.6 m (5' 3), weight 66.1 kg (145 lb 11.2 oz), SpO2 96 %. Intake/Output Summary (Last 24 hours) at 02/17/2023 1255 Last data filed at 02/16/2023 1800 Gross per 24 hour Intake 120 ml Output -- Net 120 ml EXAM: GEN: Awake alert and oriented, appears stated age PULM: Non-labored breathing with normal respiratory effort CVS: reg rate and rhythm, no peripheral edema ABD: Soft, right sided tenderness, non distended. No rebound or guarding RECTAL: Rectal exam was deferred NEURO: CN II-XII grossly intact MSK: extremeties with no clubbing, cyanosis or edema; able to ambulate PSYCH: responsive, alert, cooperative; oriented x3; appropriate mood and affect EXT/SKIN: inspection reveals no rashes, lesions or ulcers, normal coloring Data Reviewed: Results for orders placed or performed during the hospital encounter of 02/10/23 CT Abdomen Pelvis w Contrast Narrative EXAM: CT ABDOMEN PELVIS W CONTRAST LOCATION: [facility] DATE/TIME: 02/10/2023 10:57 PM CDT INDICATION: RLQ pain; Crohn's. COMPARISON: None. TECHNIQUE: CT scan of the abdomen and pelvis was performed following injection of IV contrast. Multiplanar reformats were obtained. Dose reduction techniques were used. CONTRAST: 75 mL Isovue 370 FINDINGS: LOWER CHEST: Normal. HEPATOBILIARY: The gallbladder is absent. PANCREAS: Normal. SPLEEN: Normal. ADRENAL GLANDS: Normal. KIDNEYS/BLADDER: The right kidney is absent. The left kidney is unremarkable. BOWEL: There are several narrowed segments of ileum with resulting small bowel dilatation proximally. No definite active inflammatory changes. There is no free intraperitoneal gas. Trace amount of free pelvic fluid. LYMPH NODES: Normal. VASCULATURE: Atherosclerotic calcification of the aorta and its branches. No aneurysm. PELVIC ORGANS: The uterus is absent. There is no adnexal mass. MUSCULOSKELETAL: Degenerative disease in the spine. Impression IMPRESSION: 1. There are segments of narrowed distal small bowel causing a partial small bowel obstruction. No definite active inflammation. No abscess formation. Recent Labs Lab 02/17/23 0721 02/16/23 0558 02/15/23 1011 02/14/23 0639 WBC 9.6 -- 14.3* 13.5* HGB 11.5* -- 12.5 12.4 HCT 36.7 -- 39.9 39.3 MCV 87 -- 87 86 PLT 239 283 303 323 Recent Labs Lab 02/17/23 0721 02/16/23 0558 02/15/23 1011 02/14/23 0639 02/12/23 0858 02/11/23 0700 02/10/23 1854 NA 139 -- 138 140 < > 140 140 POTASSIUM 3.8 -- 3.2* 4.2 < > 5.1 4.7 CHLORIDE 105 -- 104 106 < > 105 102 CO2 26 -- 24 26 < > 25 24 ANIONGAP 8 -- 10 8 < > 10 14 GLC 89 -- 115* 100* < > 142* 131* BUN 18.4 -- 22.6 18.1 < > 16.9 14.7 CR 1.12* 1.13* 1.16* 1.06* < > 1.10* 1.26* GFRESTIMATED 55* 54* 53* 59* < > 56* 48* DAJA 8.4* -- 8.7* 9.0 < > 8.7* 9.1 PROTTOTAL 5.0* -- -- -- -- 5.7* 6.8 ALBUMIN 3.1* -- -- -- -- 3.6 4.2 BILITOTAL 0.4 -- -- -- -- 0.2 0.3 ALKPHOS 57 -- -- -- -- 68 81 AST 10 -- -- -- -- 13 13 ALT 15 -- -- -- -- 8* 12 < > = values in this interval not displayed. No results for input(s): INR in the last 168 hours. No results for input(s): LACT in the last 168 hours. No results for input(s): COLOR, APPEARANCE, URINEGLC, URINEBILI, URINEKETONE, SG, UBLD, URINEPH, PROTEIN, UROBILINOGEN, NITRITE, LEUKEST, RBCU, WBCU in the last 168 hours. Assessment and Plan: Hortensia Buitrago is a 62 year old female with a recent diagnosis of Crohn's, seen at the request of Dr. Ronodn, presents with abdominal pain and nausea. CT scan of the abdomen pelvis revealed segmentsof narrowed distal small bowel causing a partial SBO. She has had a recent colonoscopy on 01/28/23 that revealed inflammation with ulceration and stenosis at the terminal ileum. Pathology showed mild active chronic ileitis at the TI. She has been on oral steroids twice now within the past month without much improvement in her symptoms. She is now restarting IV steroids per GI. She is currently hemodynamically stable, so no emergent surgery is indicated at this time. Recommend to continue conserva tive management at this time including bowel rest and IV steroids. A gastrografin challenge was ordered to further evaluate the obstruction. Briefly discussed that if she continues to not improve with conservative management, she may require surgical resection of this area which may result in a temporary stoma. Patient understood. Appreciate GI assistance with the medical management of her Crohn's disease. Will await the results of the gastrografin challenge. Plan: 1. Surgery: No emergent surgery indicated 2. Diet: NPO 3. IV Fluids: Per hospitalist 4. Antibiotics: Not indicated 5. Medications: Continue home meds per hospitalist 6. I&O? s: strict I&O? s 7. Labs: - Reviewed: - Ordered: Prealbumin 8. Imaging: - Dr. Iverson and myself have personally viewed: CT abd/pelvis - Ordered: Gastrografin challenge 9. Activity: ambulate as tolerated, encourage OOB 10. DVT prophylaxis: SCD???s, 11. This plan has been discussed with Dr. Grahn Patient specific identified risk factors considered as part of today???s evaluation include: RecentCrohn's diagnosis, persistent SBO, previous abdominal surgeries including a right nephrectomy Additional history obtained from chart and patient. Time spent on consultation: 50 minutes, yfnan 50 percent of the total encounter time is spent in counseling and/or coordination of care Roberta Ramirez PA-C [facility] Associated attestation - Madison Iverson MD - 02/17/2023 6:10 PM CDT Images from the original note were not included. Physician Attestation I saw and evaluated Hortensia Buitrago as part of a shared CORPORATION SECRETARY/PA visit. I personally reviewed the vital signs, medications, labs, and imaging. I personally performed the substantive portion of the medical decision making for this visit - please see the NATHALIA's documentation for full details. I personally performed the substantive portion of the history for this visit - please see the NATHALIA'sdocumentation for full details. Vogel additional history findings made by me: Hawa is a 62-year-old woman who has been having intermittent pains in the abdomen for several months. She had a CT scan showing some terminal ileal inflammation. This prompted her to get a colonoscopy on January 28 which showed inflammation and ulceration of the terminal ileum. Biopsies of the colon were normal. She was given oral steroids and had minimal improvement in her abdominal pain. She came into the emergency room and started on IV steroids 7 days ago. She felt better on IV steroids after a few days and was switched to oral steroids again and has now had no further bowel movements over the past 3 days. She does note she passed a small amount of gas and a small amount of liquid stool yesterday but it was very tiny. No bleeding. She had half a grilled cheese sandwich last night withoutany increased pain. She has baseline nausea that is not made worse with eating. No vomiting recently. She feels mildly distended. Past surgical history includes a right nephrectomy for kidney cancer, appendectomy, and cholecystectomy. I personally performed the substantive portion of the physical exam - please see the NATHALIA's documentation for full details. I concur with the NATHALIA exam findings, in addition I have noted: She is awake alert and oriented resting comfortably in bed. She is able to move around to flatten out. Abdomen is soft, mildly distended. No rebound or guarding. There is a well- healed right subcostal incision without hernias. Vogel management decisions made by me and carried out under my direction: Hawa is a 62-year-old woman with ileocolic Crohn's. In reviewing her CT scan there is multifocal stenosis within the distal ileum. There were 2 short segment stenosis and then a more long segment with dilatation between and proximal to the longer segment. There is no clear evidence of fistula or abscess. In absence of improve ment on 5 days of steroids plus the 10-day she had preoperatively 1 would certainly be concerned ofa more fibrostenotic component of her disease. That is the case and she has no other medical options that are thought to be realistic options we might need to consider a laparoscopic assisted ileocolic resection. In anticipation of this but potential we will obtain a small bowel follow- through as well as some nutritional lab studies. I discussed with Hawa that if she has poor nutrition or concerns of her healing with dilatation ofthe bowel we often need to consider an ileostomy. She is at high risk for dehydration and acute renal injury given her solitary kidney. We will need to complete the rest of her work-up here and discussed with GI next best steps. Fortunately at this point she is not toxic. I remember commend backingher down to clears only if she is really not having any bowel function but will await the results of the Gastrografin study. A total of 60 minutes was spent on this consultation. Greater than 50% was spent in counseling coordinating care, reviewing images and reports, and coordinating with other providers. Madison Iverson MD [facility] [id number], [address] [place] [address] T: [phone] F: [phone] [email or web address] Madison Iverson MD, MD Date of Service (when I saw the patient): 02/17/23 * Mayela Pruitt APRN APPLICATION DESIGN ENGINEER - 02/11/2023 1:30 PM CDTAssociated Order(s): GASTROENTEROLOGY IP CONSULT Images from the original note were not included. GASTROENTEROLOGY CONSULTATION Hortensia Buitrago [address] [facility] [id number] 62 year old female Admission Date/Time: 02/10/2023 Primary Care Provider: No Ref-Primary, Physician We were asked to see the patient in consultation by Dr. Weaver for evaluation of Crohn's disease. CC: Abdominal pain, diarrhea HPI: Hortensia Buitrago is a 62 year old female who recently underwent work-up at [facility] with findings suggestive of Crohn's disease and was seen in IBD clinic yesterday where she was advised to come to the emergency room due to the severity of her symptoms and treatment failure with oral steroids. CT scan upon arrival noted segments of narrowed distal small bowel causing a partial small bowel obstruction. No definite active inflammation or abscess formation noted. CBC with mildly elevated WBC at 14.2, hemoglobin normal at 13.1. The patient began having symptoms of nausea, vomiting, diarrhea on November 28. She underwent a colonoscopy on January 28 which showed inflammation with ulceration and stenosis at the terminal ileum. Terminal ileum biopsy showed nonspecific mild active chronic ileitis. Right and left colon biopsies were normal. Following her procedure she was started on prednisone 40 mg daily which she took for 10 days. Unfortunately she did not find any improvement with the prednisone. In fact her symptoms have continued to worsen. Over the past several weeks she reports an average of 10-15 urgent and urgent and watery bowel movements per day. Denies blood in her stool. She also has had significant and severe abdominal pain that is diffuse and exacerbated by oral intake. She has not yet have a bowel movement today. Her pain has improved with analgesics. Of note, she had been using Aleve twice daily for years but discontinued this as advised in December. She does have a nephew and nieces with Crohn's disease. She has undergone an extensive work-up for her symptoms as outlined below: EGD 12/13/2022 was endoscopically normal. Esophageal and duodenal biopsies normal. Gastric biopsies showed chronic gastritis, negative for H. Pylori. CT A/P on 12/10/2022 showed wall thickening in the distal and terminal ileum with some mucosal hyperemia, evidence of prior cholecystectomy with minimal dilation of biliary tree and borderline diameterof CBD. CT A/P on 01/20/2023 showed stable hyperemia of the distal small bowel loops suggestive of chronic inflammation, fluid-filled colon suggestive of diarrheal illness, enlarged mesenteric lymph nodes that were stable, improved appearance of biliary tree without CBD stone. Prior negative enteric pathogen panel and C. Diff testing. PAST MEDICAL HISTORY: Patient Active Problem List Diagnosis Date Noted ??? RLQ abdominal pain 02/10/2023 Priority: Medium ROS: A comprehensive ten point review of systems was negative aside from those in mentioned in the HPI. MEDICATIONS: Prior to Admission medications Medication Sig Start Date End Date Taking? Authorizing Provider acetaminophen (TYLENOL) 650 MG CR tablet Take 650 mg by mouth At Bedtime Yes Unknown, Entered By History albuterol (PROAIR HFA/PROVENTIL HFA/VENTOLIN HFA) 108 (90 Base) MCG/ACT inhaler Inhale 2 puffs intothe lungs every 6 hours as needed for shortness of breath, wheezing or cough Yes Unknown, Entered By History esomeprazole (NEXIUM) [address] capsule Take 40 mg by mouth 2 times daily (before meals) Take 30-60 minutes before eating. Yes Unknown, Entered By History famotidine (PEPCID) 40 MG tablet Take 40 mg by mouth At Bedtime Yes Unknown, Entered By History montelukast (SINGULAIR) 10 MG tablet Take 10 mg by mouth At Bedtime Yes Unknown, Entered By History nortriptyline (PAMELOR) 25 MG capsule Take 25 mg by mouth At Bedtime Yes Unknown, Entered By History ondansetron (ZOFRAN ODT) 4 MG ODT tab Take 4-8 mg by mouth every 8 hours as needed for nausea Yes Unknown, Entered By History predniSONE (DELTASONE) 5 MG tablet Take by mouth See Admin Instructions Yes Unknown, Entered By History traZODone (DESYREL) 100 MG tablet Take 200 mg by mouth At Bedtime Yes Unknown, Entered By History ALLERGIES: Allergies Allergen Reactions ??? Latex Hives ??? Penicillin G Anaphylaxis ??? Sumatriptan Palpitations ??? Aspirin Nausea and Vomiting ??? Demerol Hcl [Meperidine] Nausea and Vomiting N/V ??? Oxycodone Nausea and Vomiting N/V ??? Percocet [Oxycodone-Acetaminophen] Nausea and Vomiting N/V ??? Codeine Nausea and Vomiting ??? Mold SOCIAL HISTORY: FAMILY HISTORY: No family history on file. PHYSICAL EXAM: BP 132/77 Pulse 78 Temp 97.8 ??F (36.6 ??C) (Oral) Resp 16 Ht 1.6 m (5' 3) Wt 68.9 kg (152 lb) SpO2 97% BMI 26.93 kg/m?? PHYSICAL EXAM: General: alert, oriented, NAD SKIN: no suspicious lesions, rashes, jaundice, or spider angiomas HEAD: Normocephalic. No masses, lesions, tenderness or abnormalities EYES: No scleral icterus ENT: ENT exam normal, no neck nodes or sinus tenderness RESPIRATORY: negative, Good diaphragmatic excursion. Lungs clear CARDIOVASCULAR: negative, PMI normal. No lifts, heaves, or thrills. RRR. No murmurs, clicks gallopsor rub GASTROINTESTINAL: abdomen rounded, soft, marked tenderness to palpation of lower quadrants, hypoactive bowel sounds. JOINT/EXTREMITIES: extremities normal- no gross deformities noted, gait normal and normal muscle tone NEURO: alert and oriented PSYCH: appropriate LABS: I reviewed the patient's new clinical lab test results. Recent Labs Lab Test 02/11/23 0702/10/23 1854 WBC 12.3* 14.2* HGB 12.1 13.1 MCV 88 87 PLT 313 404 Recent Labs Lab Test 02/11/23 0700 02/10/23 1854 NA 140 140 POTASSIUM 5.1 4.7 CHLORIDE 105 102 CO2 25 24 BUN 16.9 14.7 ANIONGAP 10 14 DAJA 8.7* 9.1 Recent Labs Lab Test 02/11/23 0700 02/10/23 1854 ALBUMIN 3.6 4.2 BILITOTAL 0.2 0.3 ALT 8* 12 AST 13 13 ALKPHOS 68 81 IMAGING I personally reviewed the patient's new imaging results CT A/P 02/10/2023 1. There are segments of narrowed distal small bowel causing a partial small bowel obstruction. No definite active inflammation. No abscess formation. CONSULTATION ASSESSMENT AND PLAN: Crohn's Disease Abdominal Pain Diarrhea Partial SBO This patient is a 62-year-old female who has had gastrointestinal symptoms including nausea, vomiting, unintended weight loss, abdominal pain, and diarrhea in November for which she has undergone an extensive work-up. Recent colonoscopy was performed that showed stenosis as well as an ulceration at the ileum, pathology showed nonspecific mildly active chronic ileitis. Presentation and work-up is most consistent with ileal Crohn's disease, though do note that she had been using NSAIDs regularly which may affect findings. She was advised to come to the ED yesterday due to the severity of her symptoms and as she had not responded to oral prednisone. Imaging on arrival showed narrowed distal small bowel causing a partial small bowel obstruction. No definite active inflammation noted on CT scan, though she has had inflammation noted on recent imaging. It is likely that her symptoms are a combination of inflammation related to her underlying Crohn's disease as well as ileal stenosis seen during her colonoscopy. She may benefit from colorectal surgery consult if she does not respond to steroids. We did briefly discuss long-term management of Crohn's disease with biologic therapy as well today. Plan --NPO for now. --Pain management per primary team. --IV Solumedrol Q8H. --Hepatitis B serologies, quantiferon gold in anticipation of starting biologic therapy. --Consider Colorectal Surgery Consultation if she does not respond to steroids. --We will continue to follow. I will discuss her case with Dr. Vernon, GI staff physician. Total time spent: Approximately, 45 minutes was spent providing patient care, including patient evaluation, reviewing documentation/test results, and parts order and stock clerk. Thank you for asking us to participate in the care of this patient. [facility] [phone] Associated attestation - Ananda Vernon MD - 02/11/2023 5:12 PM CDT GI/Hepatology Staff addendum This patient was discussed in detail with NPPA, seen and examined by myself, please see my findingsas outlined below. She began to have symptoms in November, and had a CT scan which showed inflammation of the terminal ileum. In January she underwent a colonoscopy which showed inflammation and stenosis of the terminal ileum. She was started on oral prednisone, but has not had significant response. She continues to have sig nificant right lower quadrant pain and diarrhea, and therefore was instructed to present to the emergency room. She was started on IV steroids. Today she states that her diarrhea has resolved, although she actually notes she has not passed flatus today. She continues to have abdominal pain. She feels that this is improved from when she came in, but still a 5 out of 10 in severity. She does feel somewhat hungry. Physical Exam: General Appearance: alert, oriented x3, no acute distress. BP 139/78 Pulse 72 Temp 98.1 ??F (36.7 ??C) (Oral) Resp 16 Ht 1.6 m (5' 3) Wt 68.9 kg (152 lb) SpO2 97% BMI 26.93 kg/m?? : Eye: sclera anicteric. GI: Soft, NABS, NT/ND. Neuro: no asterixis. COMMENTS: Reviewed the patient's pertinent lab and imaging results. Assessment and Plan: 62 year old female with signs and symptoms most consistent with Crohn's disease. She has stenosis of her terminal ileum, and it is unclear how much of this is related to active inflammation versus scarring. I do agree with IV Solu-Medrol. I explained that if she does not have improvement over the next 24 to 48 hours, we would likely need to consult colorectal surgery. However if she does improve, then we would be able to advance her diet, and discussed transitioning her to a biologic. Total time spent on patient care activities 22 minutes Ananda Vernon MD documented in this encounter ED Notes * Phil Herrera RN - 02/10/2023 11:11 PM CDT Bed: ED19 Expected date: Expected time: Means of arrival: Comments: FT1 * Candy Miller RN - 02/10/2023 10:49 PM CDT [facility] ED Nurse Handoff Report ED Chief complaint: Abdominal Pain . ED Diagnosis: Final diagnoses: RLQ abdominal pain Allergies: Allergies Allergen Reactions ??? Demerol Hcl [Meperidine] N/V ??? Oxycodone N/V ??? Percocet [Oxycodone-Acetaminophen] N/V Code Status: Full Code Activity level - Baseline/Home: independent. Activity Level - Current: assist of 1. Lift room needed: No. Bariatric: No Computer Tape Librarian Needed: No Isolation: No. Infection: Not Applicable. Respiratory status: Room air Vital Signs (within 30 minutes): Vitals: 02/10/23 1847 BP: (!) 140/98 Pulse: 100 Resp: 20 Temp: 98.2 ??F (36.8 ??C) TempSrc: Temporal SpO2: 98% Cardiac Rhythm: , Pain level: Patient confused: No. Patient Falls Risk: nonskid shoes/slippers when out of bed and patient and family education. Elimination Status: Has voided Patient Report - Initial Complaint: Abdominal pain. Focused Assessment: ED arrival note: Diarrhea and lower abdominal pain. Colonoscopy done last month that shows crohns. Sent here for IV steroids. Hortensia Buitrago is a 62 year old female with history of Crohn's disease who presents with lower abdominal pain and diarrhea for a few weeks now with 14 episodes of diarrhea today. She was seen for a follow-up at [facility] today and referred here for IV steroids. She has been on 40 mg prednisone for 10 days without relief. Denies blood in stool. Reports when she eats, she immediately passes watery stool. Denies vomiting. Abnormal Results: Labs Ordered and Resulted from Time of ED Arrival to Time of ED Departure COMPREHENSIVE METABOLIC PANEL - Abnormal Result Value Sodium 140 Potassium 4.7 Chloride 102 Carbon Dioxide (CO2) 24 Anion Gap 14 Urea Nitrogen 14.7 Creatinine 1.26 (*) Calcium 9.1 Glucose 131 (*) Alkaline Phosphatase 81 AST 13 ALT 12 Protein Total 6.8 Albumin 4.2 Bilirubin Total 0.3 GFR Estimate 48 (*) CBC WITH PLATELETS AND DIFFERENTIAL - Abnormal WBC Count 14.2 (*) RBC Count 4.85 Hemoglobin 13.1 Hematocrit 42.1 MCV 87 MCH 27.0 MCHC 31.1 (*) RDW 15.0 Platelet Count 404 % Neutrophils 86 % Lymphocytes 8 % Monocytes 4 % Eosinophils 0 % Basophils 0 % Immature Granulocytes 2 NRBCs per 100 WBC 0 Absolute Neutrophils 12.2 (*) Absolute Lymphocytes 1.2 Absolute Monocytes 0.5 Absolute Eosinophils 0.0 Absolute Basophils 0.1 Absolute Immature Granulocytes 0.[address] Abdomen Pelvis w Contrast (Results Pending) Treatments provided: See MAR Family Comments: at bedside OBS brochure/video discussed/provided to patient: Yes ED Medications: Medications 0.9% sodium chloride BOLUS (1,000 mLs Intravenous $New Bag 02/10/23 0592) iopamidol (ISOVUE-370) solution 500 mL (has no administration in time range) CT scan flush (has no administration in time range) morphine (PF) injection 4 mg (4 mg Intravenous $Given 02/10/23 5122) ondansetron (ZOFRAN) injection 4 mg (4 mg Intravenous $Given 02/10/23 9610) Drips infusing: No For the majority of the shift this patient was Green. Interventions performed were N/A. Sepsis treatment initiated: No Cares/treatment/interventions/medications to be completed following ED care: N/A ED Nurse Name: Samantha Garcia RN 10:49 PM RECEIVING UNIT ED HANDOFF REVIEW Above ED Nurse Handoff Report was reviewed: Yes Reviewed by: Candy Miller RN on February 11, 2023 at 12:29 AM * Dagoberto Mazariegos RN - 02/10/2023 6:45 PM CDT Diarrhea and lower abdominal pain. Colonoscopy done last month that shows crohns. Sent here for IV steroids. * Philipp Schneider DO - 02/10/2023 6:30 PM CDT History Chief Complaint: Abdominal Pain The history is provided by the patient. Hortensia Buitrago is a 62 year old female with history of Crohn's disease who presents with lower abdominal pain and diarrhea for a few weeks now with 14 episodes of diarrhea today. She was seen for a follow-up at [facility] today and referred here for IV steroids. She has been on 40 mg prednisone for 10 days without relief. Denies blood in stool. Reports when she eats, she immediately passes watery stool. Denies vomiting. Independent Historian: None - Patient Only Review of External Notes: Reviewed [facility] notes. Reviewed ED note from [facility] on 01/20. She had imaging performed at that time, results summarized below. CT Abdomen Pelvis from 01/20/23 showed mcuosal hyperemia of small bowel suggesting chronic inflammatory bowel disease. ROS: See HPI Allergies: Demerol Hcl [Meperidine] Oxycodone Percocet [Oxycodone-Acetaminophen] Physical Exam Patient Vitals for the past 24 hrs: BP Temp Temp src Pulse Resp SpO2 Height Weight 02/11/23 0052 (!) 141/92 98 ??F (36.7 ??C) Oral 82 18 98 % 1.6 m (5' 3) 68.9 kg (152 lb) 02/10/23 1847 (!) 140/98 98.2 ??F (36.8 ??C) Temporal 100 20 98 % -- -- Physical Exam Constitutional: Vital signs reviewed as above. HENT: Head: No external signs of trauma noted. Eyes: Conjunctivae are normal. Pupils are equal, round, and reactive to light. Cardiovascular: Tachycardic rate, regular rhythm and normal heart sounds. Exam reveals no friction rub. No murmur heard. Pulmonary/Chest: Effort normal and breath sounds normal. No respiratory distress. There are no wheezes. There are no rales. Gastrointestinal: Soft. Bowel sounds normal. There is no distension. There is significant RLQ tenderness. There is no rebound or guarding. Musculoskeletal: Normal range of motion. Normal Tone Neurological: Patient is alert and oriented to person, place, and time. Skin: Skin is warm and dry. Patient is not diaphoretic Psychiatric: The patient appears calm Emergency Department Course Imaging: CT Abdomen Pelvis w Contrast Final Result IMPRESSION: 1. There are segments of narrowed distal small bowel causing a partial small bowel obstruction. No definite active inflammation. No abscess formation. Report per radiology Laboratory: Labs Ordered and Resulted from Time of ED Arrival to Time of ED Departure COMPREHENSIVE METABOLIC PANEL - Abnormal Result Value Sodium 140 Potassium 4.7 Chloride 102 Carbon Dioxide (CO2) 24 Anion Gap 14 Urea Nitrogen 14.7 Creatinine 1.26 (*) Calcium 9.1 Glucose 131 (*) Alkaline Phosphatase 81 AST 13 ALT 12 Protein Total 6.8 Albumin 4.2 Bilirubin Total 0.3 GFR Estimate 48 (*) CBC WITH PLATELETS AND DIFFERENTIAL - Abnormal WBC Count 14.2 (*) RBC Count 4.85 Hemoglobin 13.1 Hematocrit 42.1 MCV 87 MCH 27.0 MCHC 31.1 (*) RDW 15.0 Platelet Count 404 % Neutrophils 86 % Lymphocytes 8 % Monocytes 4 % Eosinophils 0 % Basophils 0 % Immature Granulocytes 2 NRBCs per 100 WBC 0 Absolute Neutrophils 12.2 (*) Absolute Lymphocytes 1.2 Absolute Monocytes 0.5 Absolute Eosinophils 0.0 Absolute Basophils 0.1 Absolute Immature Granulocytes 0.2 Absolute NRBCs 0.0 Emergency Department Course & Assessments: Interventions: Medications lidocaine 1 % 0.1-1 mL (has no administration in time range) lidocaine (LMX4) cream (has no administration in time range) sodium chloride (PF) 0.9% PF flush 3 mL (3 mLs Intracatheter Not Given 02/11/23 0000) sodium chloride (PF) 0.9% PF flush 3 mL (has no administration in time range) melatonin tablet 1 mg (has no administration in time range) enoxaparin ANTICOAGULANT (LOVENOX) injection 40 mg (has no administration in time range) sodium chloride 0.9% infusion ( Intravenous $New Bag 02/11/23 0021) methylPREDNISolone sodium succinate (solu-MEDROL) injection 62.5 mg (has no administration in time range) prochlorperazine (COMPAZINE) injection 10 mg (has no administration in time range) Or prochlorperazine (COMPAZINE) suppository 25 mg (has no administration in time range) 0.9% sodium chloride BOLUS (0 mLs Intravenous Stopped 02/10/23 235) morphine (PF) injection 4 mg (4 mg Intravenous $Given 02/10/23 2242) ondansetron (ZOFRAN) injection 4 mg (4 mg Intravenous $Given 02/10/23 223) iopamidol (ISOVUE-370) solution 500 mL (75 mLs Intravenous $Given 02/10/23 2251) CT scan flush (59 mLs Intravenous $Given 02/10/23 225) morphine (PF) injection 4 mg (4 mg Intravenous $Given 02/10/23 2338) Assessments, Independent Interpretation, Consult/Discussion of ManagementTests: ED Course as of 02/11/23 0110 FriFeb 10, [id number] I obtained the history and examined the patient as noted above. 2227 D/W Dr. Turcios ([facility]). Would like repeat CT. If no abscess/surgical problem, would start solumedrol 20mg IV q8h [address] Weaver, of the hospitalist team, regarding the patient. They accepted the patient for admission. 2305 I rechecked and updated the patient. 2325 I rechecked and updated the patient. [address] Weaver once again. Social Determinants of Health affecting care: None Disposition: The patient was admitted to the hospital under the care of Dr. Weaver. Impression & Plan [facility] Diagnoses: None Code Status: Full Code Medical Decision Making: This 62-year-old female patient presents to the ED due to abdominal pain. Please see the HPI and exam for specifics. The patient was referred here from GI due to concerns for terminal ileitis. Lab results and CT results are noted above. Findings are most notable for leukocytosis, increased creatinine, and a partial small bowel obstruction. I discussed the case with gastroenterology and the hospitalist service and we will admit the patient for ongoing monitoring and care. Critical Care time: was 0 minutes for this patient excluding procedures. Diagnosis: ICD-10-CM 1. RLQ abdominal pain R10.31 2. Partial small bowel obstruction (H) K56.600 Scribe Disclosure: I, Rachel Leyva, am serving as a scribe at 10:15 PM on 02/10/2023 to document services personally performed by Philipp Schneider DO based on my observations and the provider's statements to me. 02/10/2023 Philipp Schneider DO Burns, Bradley Joseph, DO 02/11/23 0111 documented in this encounter Miscellaneous Notes * Plan of Care - Cori Hassan RN - 02/23/2023 9:23 AM CDT Goal Outcome Evaluation: [phone] Plan of Care Reviewed With: patient Overall Patient Progress: improving A&O x3, vital signs WDL for patient. Continues to have RLQ cramping pain, well managed with PRNTylenol and heat. Eating a low fat diet, small frequent meals. Heartburn improved with home medication. Passing gas, had another small BM this morning. Voiding without difficulty. Walking in the halls. All discharge goals met. Discharge education, follow-up, and medications reviewed with patient and spouse per MD orders; both verbalizing understanding. Patient discharged home with spouse at 1240.No additional concerns at this time. * Plan of Care - Guerda Sharma RN - 02/23/2023 4:44 AM CDT VS: Afebrile. Occasional hypertension. Respiratory: WDL. GI: Normoactive bowel sounds. Intermittent nausea. Pain and tenderness located in RLQ. Pt reports not passing gas. PRN senna x1 given. : Voiding. Activity: Independent. Pt walking frequently in room and in the halls. Pain: Rated pain 3-6. PRN Tylenol x2 and PRN Robaxin x1 given. Plan: Encourage oral intake. Encourage ambulation. * Plan of Care - Cori Hassan RN - 02/22/2023 11:31 AM CDT Goal Outcome Evaluation: [id number] Plan of Care Reviewed With: patient Overall Patient Progress: improving A&O x3, vitals WDL for patient. Complaining of sharp abd pain in RLQ, thinking gas pains. Well managed with PRN Tylenol and simethicone. Continues to eat small frequent meals, drinking fluids without difficulty. Giving PRN Zofran before meals. Active bowel sounds, passing gas. No BM since last night, giving scheduled Miralax and PRN Senna. Encouraging frequent ambulation today, patient going for several walks in the halls/outside. No additional concerns at this time. * Plan of Care - Guerda Sharma RN - 02/22/2023 5:38 AM CDT VS: VSS. Afebrile. Respiratory: WDL. GI: Tender in RLQ area and general abdominal discomfort. Normoactive bowel sounds. Intermittent nausea and reflux when ambulating; PRN Zofran x1 given. Occasionally passing gas. : Voiding. Skin: Brusing on R and L arms from previous IV pokes. Activity: Independent. Showered. Pain: Rated pain 2-6. PRN Tylenol x1 given. Lines: IV removed due to pain at site. Plan: Pain management. Encourage oral intake. * Plan of Care - Cori Hassan RN - 02/21/2023 2:53 PM CDT Goal Outcome Evaluation: [phone] Plan of Care Reviewed With: patient Overall Patient Progress: no change A&O x3, vital signs WDL for patient. Denies abdominal pain, describes it more as discomfort andnausea post meal. Well managed with PRN Zofran before meals. Eating small portions of low fiber diet, encouraging protein intake and fluids. IV running at TKO for PO trial; good PO intake today. Transitioned to PO Prednisone today. Started on Miralax and suppository this morning, small hard BM thisafternoon x2 and passing gas. Ambulating independently in the [place]. Patient teary and frustrated this morning due to longer than expected hospital stay, however, feeling hopeful now that she's had a BM. Family visit this afternoon. No additional concerns at this time. * Plan of Care - Odalys Yoder RN - 02/21/2023 5:42 AM CDT Goal Outcome Evaluation: Orientation: Alert and oriented x4 VSS. 98% on RA. afebrile. LS: clear and equal bilaterally. GI: denies Passing gas. no BM. Denies N/V. Hypoactive bowel sounds on L, active bowel sounds on R. : Adequate urine output. Skin: scattered bruising to bilateral arms from prior IV access Activity: Independent. Pt slept comfortably throughout shift. Pain: 4/10 abdominal cramping. Tylenol x1. Heating pad for comfort. Updates/Plan: frustrated but understanding with hospitalization. Expressed desires to get home soonbut that she knows she's where she needs to be to get the best care possible. Continue with currentcares. * Plan of Care - Marisa Isaacs RN - 02/20/2023 11:50 PM CDT Goal Outcome Evaluation: Overall Patient Progress: no changeOverall Patient Progress: no change Vital Signs: Afebrile, VSS Pain/Comfort: Pt continues to have discomfort after eating, feeling like she had a heavy blockagein mid upper stomach, given po zofran and pt started to feel better Assessment: Not passing gas, bowel sounds present, no stool, Overall feels pain has improved Diet: Ate 100% of tray (low fiber diet-soft mushy food), was hungry, but then felt discomfort aftereating Output: voiding, not passing gas Activity/Ambulation: Up walking frequently Social: here to visit Plan: Continue with IV solumedrol, continue with present cares, keep pt updated on plan of care. * Plan of Care - Kristin Mabry RN - 02/20/2023 1:41 PM CDT Goal Outcome Evaluation: Updates: Hawa is doing well today. VSS. Independent in room/hallways. Pt rested comfortably between cares. Repeat CT done today. Resp: WDL GI/: Last liquid stool / evening before having dinner. Since dinner, no BMs today. Still - flatus. Feels distended, abd tender in RLQ. No N/V. Tolerating ensures and some chips, not tolerating low fiber diet well today. Going to try more low fiber food for dinner. Voiding, UO WDL. IV: WDL R forearm, infusing D5 1/2NS +20 KCL@75. Monitor closely. Will need midline per VAT if thisIV infiltrates. Pain/Comfort: 12/16. Tylenol providing adequate pain management per pt. Skin: WDL x bruises scattered on arms from multiple needle sticks Social: Friends visited today Plan: IV solumedrol q8h, monitor diet tolerance and GI symptoms, and provide for comfort and needs. * Plan of Care - Keiry Freeman RN - 02/20/2023 5:53 AM CDT Goal Outcome Evaluation: Orientation: Alert and oriented. VSS. RA. LS: clear GI: Abdominal discomfort, bloating per pt. Not passing gas. No BM. Intermittent nausea, PO zofran x1 : Adequate urine output. Skin: Bilateral scattered bruises on forearms from previous PIVs Activity: Independent. Pt slept comfortably throughout shift. Pain: 3/10. Tylenol x1 Updates/Plan: IVF, pain/nausea management. Continue with current cares. * Plan of Care - Isa Nix RN - 02/19/2023 6:59 PM CDT Pt. A/O x4. VSS. Slight pain and discomfort in abdomen. Frequent diarrhea. Tolerating clears throughout the morning- needed PRN Zofran x1. Pt advanced to low fiber diet this afternoon. Ate half of scrambled eggs and some cooked carrots at 1800 with increased discomfort in stomach. Heat pack applied. Pt on IV solumedrol. IVF running at 75ml/hr. Independent in the room. [facility] following. Plan to continue IV steroids and advance on low fiber diet as tolerated. Will continue to provide supportive cares. * Provider Notification - Keiry Freeman RN - 02/18/2023 9:28 PM CDT Paged at 2127 - - pt felt like IV was feeling tender, decreased fluids from 100 to 75 mL with relief per pt. * Plan of Care - Shanika Reilly RN - 02/18/2023 6:49 PM CDT BP 104/73 (BP Location: Right arm) Pulse 68 Temp 97.8 ??F (36.6 ??C) (Oral) Resp 16 Ht 1.6 m (5' 3) Wt 66.1 kg (145 lb 11.2 oz) SpO2 95% BMI 25.81 kg/m?? Problem: Plan of Care - These are the overarching goals to be used throughout the patient stay. Goal: Absence of Hospital-Acquired Illness or Injury Outcome: Progressing Intervention: Prevent Skin Injury Recent Flowsheet Documentation Taken 02/18/20231828 by Shanika Reilly RN Body Position: position changed independently Intervention: Prevent and Manage VTE (Venous Thromboembolism) Risk Recent Flowsheet Documentation Taken 02/18/20231828 by Shanika Reilly RN VTE Prevention/Management: SCDs (sequential compression devices) off, pt up and independent in the room Taken 02/18/2023 08 by Shanika Reilly RN VTE Prevention/Management: SCDs (sequential compression devices) off Problem: Intestinal Obstruction Goal: Optimal Bowel Function Intervention: Promote Bowel Function Recent Flowsheet Documentation Taken 02/18/20231828 by Shanika Reilly RN Body Position: position changed independently, up walking in the hallways Head of Bed (HOB) Positioning: HOB at 30-45 degrees Positioning/Transfer Devices: ??? pillows ??? in use Chair: Shifted weight Goal Outcome Evaluation: * Plan of Care - Deidra Ramirez RD, LD - 02/18/2023 3:31 PM CDT Goal Outcome Evaluation: Patient now returned to clear liquids. Added diet appropriate oral nutritional supplements. Deidra Ramirez RD, [facility] Clinical Dietitian 3rd floor/ICU: [phone] All other floors: [phone] Weekend/holiday: [phone] Office: [phone] * Plan of Care - Yulissa Culp RN - 02/18/2023 6:05 AM CDT Goal Outcome Evaluation: Patient alert and oriented x4, vital sign stubble, Pt on a room air, Pt has been NPO since last night. Up ind in room. X2 BM and Passing flatus this shift. RLQ abd pain, given tylenol, tramadol and Zofran. Pt c/o intermittent nausea, given zofran x1. New IV placed by vascular access this afternoon shift. Pt slept throughout the night shift manager. Will continue to provide supportive cares. * Plan of Care - Marisa Isaacs RN - 02/18/2023 12:07 AM CDT Goal Outcome Evaluation: Plan of Care Reviewed With: patient Overall Patient Progress: improvingOverall Patient Progress: improving Afebrile, VSS, abdomen soft, bowel sounds heard, pt NPO t/o shift, did go down to gastrografin x ray at 2130. IV fluids continue at 100/hr. Pt received IV solumedrol as ordered this evening. Pt did c/o some R lower quadrant pain at HS rating pain to a 7, ultram given and pt resting comfortably whenrounding at 2330. Did state she had passed small amount of liquid stool (2300), denied passing gas.Will continue to monitor pain, continue with present plan. * Plan of Care - Katia Thomason RN - 02/17/2023 2:52 PM CDT Goal Outcome Evaluation: Plan of Care Reviewed With: patient Overall Patient Progress: improvingOverall Patient Progress: improving VSS. Pt has been NPO since last night. Up ind in room. No BM and denies passing flatus this shift. RLQ abd pain, given tylenol and tramadol. C/o intermittent nausea, given zofran x1. New IV placed byvascular access this afternoon. Pt completed gastrografin at 1330, plan on Xray at 2130. * Plan of Care - Vale Irwin RN - 02/17/2023 12:30 AM CDT Patient vitals stable. Patient up and walking halls this evening and up in room chair. Patient has been up to the restroom. Patient reports intermittent nausea and RLQ tenderness. Patient states thatshe is not passing gas or belching. BS audible and active in al 4 quadrants. States that she hasn'montrell a BM in 4 days, except for a small liquid BM earlier today. Patient requested her IV be removed due to discomfort and she is aware that she may need another one, if an IV is required tomorrow, she would rather have removed now and another placed, if need be. Patient resting comfortably overnight. Plan is for GI consult tomorrow morning. Goal Outcome Evaluation: Plan of Care Reviewed With: patient Overall Patient Progress: improvingOverall Patient Progress: improving * Plan of Care - Marisa Isaacs RN - 02/16/2023 11:33 PM CDT Goal Outcome Evaluation: Plan of Care Reviewed With: patient Overall Patient Progress: no changeOverall Patient Progress: no change [id number] Afebrile, VSS, lungs clear, bowel sounds heard in all 4 quadrants. Pt denies passing gas but had 1 small liq stool. Up walking frequently to try to get things moving. GI reconsulted today, unable to come today but will see in am. Dr. Mckenna (GI) did order labs for am. Pt continues on low fiber diet but does state she has some mild pain after eating. Pain in RLQ down to groin. Pain to a 5 and tylenol given. Will continue to assess pain and toleration of diet. Keep pt updated on plan of care. * Plan of Care - Rhonda Ramon RN - 02/16/2023 2:00 PM CDT Goal Outcome Evaluation: Plan of Care Reviewed With: patient Vital Signs: VSS. Afebrile. Pain/Comfort: Pain this morning a 6/10 after breakfast and 3 cups of coffee. Ultram given. Pain now3/10. Assessment: Bowel sounds active in upper quadrants. Not audible in lower quadrants. Abdomen soft, slightly rounded. Tender. Diet: Tolerating low fiber diet without nausea. Output: Voiding. No gas. No stool Activity/Ambulation: Ambulating frequently. Sitting up in chair. Social: here to visit. * Plan of Care - Odalys Yoder RN - 02/16/2023 5:36 AM CDT Goal Outcome Evaluation: Orientation: Alert and oriented x4 VSS. 97% on RA. Afebrile. LS: clear and equal bilaterally. GI: denies Passing gas. no BM. Denies N/V. : Adequate urine output. Skin: scattered bruising to bilateral forearms from prior IV sites. Activity: Independent. Pt slept comfortably throughout shift. Pain: 4/10 abdominal pain radiating to back. Tramadol x1. Updates/Plan: possible discharge home later today. Pt anxious about this as she has not passed gas yet. Continue with current cares. * Plan of Care - Marisa Isaacs RN - 02/15/2023 10:28 PM CDT Goal Outcome Evaluation: Plan of Care Reviewed With: patient Overall Patient Progress: no changeOverall Patient Progress: no change Vital Signs: afebrile, VSS Pain/Comfort:Is having mild discomfort after eating supper, feels like it is blocked in mid upperabdomen. Bowel sounds present but not passing gas Assessment: continuing to have some abdominal pain after eating and has stated she will eat very light tomorrow, zofran x1 this evening for nausea (2217) Diet: mild discomfort after eating low fiber diet, good fluid intake Output: No stools, voiding well Activity/Ambulation:up frequently this evening walking in halls Plan: will continue with present cares, update pt on plan of care * Plan of Care - Blanka Montes RN - 02/15/2023 2:25 PM CDT Goal Outcome Evaluation: Pt up ad gerry in room. Alert and oriented. IV at TKO to maintain access. Oral zofran today and also tylenol for headache with relief. She feels like she needs her nexium and pepcid added to meds as is feeling some acid reflux with eating and so MD restarted pepcid. present today. Tolerating low fiber diet. She feels off today and that she wants to stay one more night due to symptoms. Tolerating her own bottled water as she does not like the water at the hospital. No loose stools. Will monitor. * Plan of Care - Odalys Yoder RN - 02/15/2023 5:07 AM CDT Goal Outcome Evaluation: Orientation: Alert and oriented x4 VSS. 99% on RA. Afebrile. LS: clear and equal bilaterally. GI: denies Passing gas. no BM. Intermittent nausea. Compazine x1 with relief in symptoms : Adequate urine output. Skin: intact Activity: Independent. Pt slept comfortably throughout shift. Pain: 5/10 abdominal pain. Well controlled with IV pain medication. Dilaudid x1 with relief in symptoms. Updates/Plan: new IV placed and set to TKO to maintain patency of line. Pain control and nausea control as needed. Pt states increased pain attributed to overdoing it at dinner. Continue with current cares. * Plan of Care - Marisa Isaacs RN - 02/14/2023 11:37 PM CDT Goal Outcome Evaluation: Plan of Care Reviewed With: patient Overall Patient Progress: improvingOverall Patient Progress: improving Vital Signs: Afebrile, VSS Pain/Comfort: Having some abdominal cramping after eating low fiber diet, tyl given x1 Assessment: having intermittent nausea, zofran IV given x2 for good relief, sheron low fiber diet although having some cramping after eating, liq stool x1, good bowel sounds heard although states is notpassing gas Diet:ate about half of low fiber diet Output:voiding well, stool x1 Activity/Ambulation: Up ad gerry in halls and in room Social: family here to visit Plan: will continue to monitor pain, toleration of diet * Plan of Care - Blanka Montes RN - 02/14/2023 2:33 PM CDT Goal Outcome Evaluation: Pt up ad gerry in halls. Denies pain or nausea. Able to tolerate clears today and small amount low fiber foods for late breakfast. Hyper bowel sounds. Voiding well and 1 loose stool today with with red tinge but had red jello so is switching to orange jello. PO prednisone begun today. Alert and oriented, pleasant. Showered today. Will monitor. * Plan of Care - Kristin Mabry RN - 02/14/2023 1:57 AM CDT Goal Outcome Evaluation: Updates: VSS, Bps slighlty elevated. Independent in room. Ambulated in [place] x1. Pt rested comfortably between cares. 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 Continues to decline trazodone until she is able to tolerate more PO, so IV benadryl given at bedtime at pt's request. Reports back soreness, requested staff give back rub. Resp: WDL GI/: + flatus, 1 loose BM overnight at 2100, hyperactive BS. Abdominal tenderness to R/LLQ on palpation, nondistended. Mild nausea, compazine given x1 with good effect. Tolerating clear liquid dietok, some increased abdominal pain after lemon ice and taking too large of sips of water. Tolerated about 500mL throughout the night. Voiding, UO WDL. IV: New IV placed by flyer in R forearm. WDL, infusing NS@50. Pain/Comfort: 0/10. Skin: WDL Plan: Possible oral steroids today, goal is to ADAT to low fiber, AM labs pending, and provide for comfort and needs. * Plan of Care - Destini Koch RN - 02/13/2023 7:53 PM CDT Goal Outcome Evaluation: Plan of Care Reviewed With: patient Overall Patient Progress: improvingOverall Patient Progress: improving Elevated BP. Denies pain. Tolerating clears. IV solumedrol complete; plan to transition to orals inmorning. * Plan of Care - Madison Ferraro RN - 02/13/2023 12:08 PM CDT Goal Outcome Evaluation [id number]: Orientation: Alert and oriented x4. VSS except for hypertension. 99% on room air. LS: Clear and equal bilaterally. GI: Patient is passing gas. No BM this shift. Denies N/V. Audible bowel sounds. Advanced to a clearliquid diet. : Adequate urine output. Patient ambulating to the bathroom independently as needed. Skin: C/d/i. Activity: Independent. Patient took a shower this shift. Pt rested comfortably throughout shift between cares. Pain: 0/10. Patient denies any pain. Updates/Plan: Advanced to clear liquid diet, monitor tolerance. IV steroids. Monitor vital signs. Manage pain. Continue with current cares. * Plan of Care - Guerda Sharma RN - 02/13/2023 6:39 AM CDT VS: Afebrile. Respiratory: WDL. GI: Audible bowel sounds. 2 loose stools overnight per pt; passing gas. Intermittent nausea; IV compazine x1 given. Abdominal discomfort. : Voiding. Activity: Independent in room. Pain: Rated pain 4-6. IV Dilaudid x1 given. Lines: L PIV infusing NS @ 75 mL/hr. Plan: Pain management. IV fluids. Promote pt comfort. * Provider Notification - Keiry Freeman RN - 02/12/2023 3:28 PM CDT Paged at [phone]: FYI when trouble shooting pt IV, flushed and pt had severe pain at insertion site that traveled up her arm about 2 inches. IV removed with pain intermittently present. Cold applied intermittently. New IV placed. * Provider Notification - Keiry Freeman RN - 02/11/2023 3:45 PM CDT Paged at [phone]: Pt requesting her Trazodone and Nortiptyline scheduled at 2100 d/t these are home medications she takes consistently to help her sleep and with her headaches. * Plan of Care - Madison Ferraro RN - 02/11/2023 1:01 PM CDT Goal Outcome Evaluation: Orientation: Alert and oriented x4. VSS. 97% on room air. LS: Clear and equal bilaterally. GI: Patient is not passing gas. Last BM yesterday per patient. Denies N/V. : Adequate urine output. Tracking input and output. Skin: C/d/I. Activity: SBA. Pt ambulated to bathroom with SBA as needed. Pain: 2-7/10 pain in lower abdomen. PRN Dilaudid given x2 with relief per pt. Patient complaining of hunger frequently, this nurse provided education on NPO status and patient verbalized understanding. Updates/Plan: Continue NPO status. IVF. Manage pain. IV Solumedrol Q8H. Continue with current cares. * Pharmacy-Admission Medication History - Tyler Calhoun [facility] - 02/11/2023 11:44 AM CDT Pharmacist Admission Medication History Admission medication history is complete. The information provided in this note is only as accurateas the sources available at the time of the update. Medication reconciliation/reorder completed by provider prior to medication history? No Information Source(s): Patient via written list Changes made to EMBOSSER OPERATOR medication list: ??? Added: all medications ??? Deleted: None ??? Changed: None Medication Affordability: Not including over the counter (OTC) medications, was there a time in the past 3 months when you did not take your medications as prescribed because of cost?: No Allergies reviewed with patient and updates made in EHR: yes Medication History Completed By: Tyler Calhoun Nicol 02/11/2023 11:44 AM Prior to Admission medications Medication Sig Last Dose Taking? Auth Provider Jail End Date acetaminophen (TYLENOL) 650 MG CR tablet Take 650 mg by mouth At Bedtime 02/09/2023 at hs Yes Unknown, Entered By History albuterol (PROAIR HFA/PROVENTIL HFA/VENTOLIN HFA) 108 (90 Base) MCG/ACT inhaler Inhale 2 puffs intothe lungs every 6 hours as needed for shortness of breath, wheezing or cough Yes Unknown, Entered By History Yes esomeprazole (NEXIUM) [address] capsule Take 40 mg by mouth 2 times daily (before meals) Take 30-60 minutes before eating. 02/10/2023 at am Yes Unknown, Entered By History famotidine (PEPCID) 40 MG tablet Take 40 mg by mouth At Bedtime 02/09/2023 at hs Yes Unknown, EnteredBy History montelukast (SINGULAIR) 10 MG tablet Take 10 mg by mouth At Bedtime 02/09/2023 at hs Yes Unknown, Entered By History Yes nortriptyline (PAMELOR) 25 MG capsule Take 25 mg by mouth At Bedtime 02/09/2023 at hs Yes Unknown, Entered By History Yes ondansetron (ZOFRAN ODT) 4 MG ODT tab Take 4-8 mg by mouth every 8 hours as needed for nausea Yes Unknown, Entered By History predniSONE (DELTASONE) 5 MG tablet Take by mouth See Admin Instructions 02/10/2023 at am Yes Unknown,Entered By History traZODone (DESYREL) 100 MG tablet Take 200 mg by mouth At Bedtime 02/09/2023 at hs Yes Unknown, Entered By History Yes * Plan of Care - Candy Miller RN - 02/11/2023 6:14 AM CDT Shift Summary [id number]- Pt reports she has not slept well since arriving to floor, but has been trying to rest. Dilaudid given x1 for abdominal discomfort. Compazine given x1 for nausea. No diarrhea episodes. VSS. Afebrile.Pt remains NPO. Will continue to monitor pts comfort level, intake/output, vital signs, and provideinterventions as needed. 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 PACKER Appointment [facility] [id number] [address] [facility] [place] [address] Alisa Norman PA-C [facility] [address] [place] [address] COLTEN JOSHI [id number] documented as of this encounter Procedures Procedure Name Priority Date/Time Associated Diagnosis Comments POTASSIUM Routine 02/23/2023 6:48 AM CDT PHOSPHORUS Routine 02/23/2023 6:48 AM CDT MAGNESIUM Routine 02/23/2023 6:48 AM CDT BASIC METABOLIC PANEL Add-On 02/23/2023 6:48 AM CDT RLQ abdominal pain Partial small bowel obstruction (H) IBD (inflammatory bowel disease) Nausea PHOSPHORUS Routine 02/22/2023 6:49 AM CDT MAGNESIUM Routine 02/22/2023 6:49 AM CDT BASIC METABOLIC PANEL Add-On 02/22/2023 6:49 AM CDT CBC WITH PLATELETS STAT 02/22/2023 6: 49 AM CDT PHOSPHORUS Routine 02/21/2023 6:43 AM CDT MAGNESIUM Routine 02/21/2023 6:43 AM CDT BASIC METABOLIC PANEL Routine 02/21/2023 6:43 AM CDT CBC WITH PLATELETS Routine 02/21/2023 6: [address] ABDOMEN PELVIS W CONTRAST STAT 02/20/2023 11:36 AM CDT BASIC METABOLIC PANEL Routine 02/20/2023 6:58 AM CDT EXTRA TUBE Routine 02/19/2023 5:22 AM CDT EXTRA GREEN TOP (LITHIUM HEPARIN) TUBE Routine 02/19/2023 5:22 AM CDT BASIC METABOLIC PANEL Add-On 02/19/2023 5:22 AM CDT CBC WITH PLATELETS STAT 02/19/2023 5: 22 AM CDT XR GASTROGRAFIN CHALLENGE Routine 02/17/2023 9:45 PM CDT US LOWER EXTREMITY VENOUS DUPLEX RIGHT Routine 02/17/2023 2:32 PM CDT XR ABDOMEN 2 VIEWS Routine 02/17/2023 1: 04 PM CDT CBC WITH PLATELETS AND DIFFERENTIAL Routine 02/17/2023 7:21 AM CDT CBC WITH PLATELETS & DIFFERENTIAL Routine 02/17/2023 7:21 AM CDT PREALBUMIN Add-On 02/17/2023 7:21 AM CDT COMPREHENSIVE METABOLIC PANEL Routine 02/17/2023 7:21 AM CDT PLATELET COUNT STAT 02/16/2023 5:58 AM CDT CREATININE Routine 02/16/2023 5:58 AM CDT BASIC METABOLIC PANEL Routine 02/15/2023 10:11 AM CDT CBC WITH PLATELETS Routine 02/15/2023 10 :11 AM CDT BASIC METABOLIC PANEL Routine 02/14/2023 6:39 AM CDT CBC WITH PLATELETS Routine 02/14/2023 6: 39 AM CDT PLATELET COUNT STAT 02/13/2023 6:56 AM CDT CREATININE Routine 02/13/2023 6:56 AM CDT C. DIFFICILE TOXIN B PCR WITH REFLEX TO C. DIFFICILE ANTIGEN AND TOXINS A/B EIA Routine 02/12/2023 12:38 PM CDT BASIC METABOLIC PANEL Routine 02/12/2023 8:58 AM CDT CBC WITH PLATELETS Routine 02/12/2023 8: 58 AM CDT QUANTIFERON TB GOLD PLUS Routine 02/11/2023 2:28 PM CDT QUANTIFERON TB GOLD PLUS PURPLE TUBE Routine 02/11/2023 2:28 PM CDT QUANTIFERON TB GOLD PLUS YELLOW TUBE Routine 02/11/2023 2:28 PM CDT QUANTIFERON TB GOLD PLUS GREEN TUBE Routine 02/11/2023 2:28 PM CDT QUANTIFERON TB GOLD PLUS FATIMA TUBE Routine 02/11/2023 2:28 PM CDT QUANTIFERON-TB GOLD PLUS Routine 02/11/2023 2:28 PM CDT COMPREHENSIVE METABOLIC PANEL Routine 02/11/2023 7:00 AM CDT CBC WITH PLATELETS Routine 02/11/2023 7: [address] ABDOMEN PELVIS W CONTRAST STAT 02/10/2023 10:57 PM CDT EXTRA TUBE STAT 02/10/2023 6:54 PM CDT EXTRA RED TOP TUBE STAT 02/10/2023 6: 54 PM CDT EXTRA BLUE TOP TUBE STAT 02/10/2023 6 :54 PM CDT CBC WITH PLATELETS AND DIFFERENTIAL STAT 02/10/2023 6:54 PM CDT HEPATITIS B SURFACE ANTIBODY Add-On 02/10/2023 6:54 PM CDT CBC WITH PLATELETS & DIFFERENTIAL STAT 02/10/2023 6:54 PM CDT HEPATITIS B SURFACE ANTIGEN Add-On 02/10/2023 6:54 PM CDT HEPATITIS B CORE ANTIBODY Add-On 02/10/2023 6:54 PM CDT COMPREHENSIVE METABOLIC PANEL STAT 02/10/2023 6:54 PM CDT documented in this encounter Results * (ABNORMAL) Basic metabolic panel (02/23/2023 6:48 AM CDT) Sodium 137 136 - 145 mmol/L 02/23/2023 10:08 AM CDT LABORATORY Potassium 4.0 3.4 - 5.3 mmol/L 02/23/2023 10:08 AM CDT LABORATORY Chloride 101 98 - 107 mmol/L 02/23/2023 10:08 AM CDT LABORATORY Carbon Dioxide (CO2) 23 22 - 29 mmol/L 02/23/2023 10:08 AM CDT LABORATORY Anion Gap 13 7 - 15 mmol/L 02/23/2023 10:08 AM CDT LABORATORY Urea Nitrogen 20.0 8.0 - 23.0 mg/dL 02/23/2023 10:08 AM CDT LABORATORY Creatinine 1.11(H) 0.51 - 0.95 mg/dL 02/23/2023 10:08 AM CDT LABORATORY Calcium 8.9 8.8 - 10.2 mg/dL 02/23/2023 10:08 AM CDT LABORATORY Glucose 118(H) 70 - 99 mg/dL 02/23/2023 10:08 AM CDT LABORATORY GFR Estimate 56(L) >60 mL/min/1.7 3m2 02/23/2023 10:08 AM CDT LABORATORY Comment:eGFR calculated usin 2020 CKD-EPI equation. Blood STRUCTURE OF RIGHT HAND / Unknown Venipuncture / Unknown 02/23/2023 6:48 AM CDT 02/23/2023 6:56 AM CDT Eva Hammond DO LAB - BLOOD ORDERA BLES LABORATORY [facility] Acute Care Lab [address] [facility] Lab (1st floor, no room number) [place] [address], [facility] [phone] * Phosphorus (02/23/2023 6:48 AM CDT) Phosphorus 2.8 2.5 - 4.5 mg/dL 02/23/2023 7:27 AM CDT RH LABORATORY Blood STRUCTURE OF RIGHT HAND / Unknown Venipuncture / Unknown 02/23/2023 6:48 AM CDT 02/23/2023 6:56 AM CDT Lukasz Weaver MD LAB - BLOOD ORDERABL ES Performing Organization Address City/[facility]/ZIP Co de Phone Number [facility] Acute Care Lab [address] Lab (1st floor, no room number) [place] [address], [facility] [phone] * Magnesium (02/23/2023 6:48 AM CDT) Magnesium 2.3 1.7 - 2.3 mg/dL 02/23/2023 7:27 AM CDT RH LABORATORY Blood STRUCTURE OF RIGHT HAND / Unknown Venipuncture / Unknown 02/23/2023 6:48 AM CDT 02/23/2023 6:56 AM CDT Lukasz Weaver MD LAB - BLOOD ORDERABL ES Performing Organization Address [facility]/ZIP Co de Phone Number [facility] Care Lab [address] Lab (1st floor, no room number) [place] [address], [facility] [phone] * Potassium (02/23/2023 6:48 AM CDT) Potassium 4.0 3.4 - 5.3 mmol/L 02/23/2023 7:27 AM CDT RH LABORATORY Blood STRUCTURE OF RIGHT HAND / Unknown Venipuncture / Unknown 02/23/2023 6:48 AM CDT 02/23/2023 6:56 AM CDT Lukasz Weaver MD LAB - BLOOD ORDERABL ES [facility] Acute Care Lab [address] Lab (1st floor, no room number) [place] [address], [facility] [phone] * (ABNORMAL) Basic metabolic panel (02/22/2023 6:49 AM CDT) Sodium 140 136 - 145 mmol/L 02/22/2023 10:38 AM CDT LABORATORY Potassium 4.8 3.4 - 5.3 mmol/L 02/22/2023 10:38 AM CDT LABORATORY Chloride 102 98 - 107 mmol/L 02/22/2023 10:38 AM CDT LABORATORY Carbon Dioxide (CO2) 30(H) 22 - 29 mmol/L 02/22/2023 10:38 AM CDT LABORATORY Anion Gap 8 7 - 15 mmol/L 02/22/2023 10:38 AM CDT LABORATORY Urea Nitrogen 20.2 8.0 - 23.0 mg/dL 02/22/2023 10:38 AM CDT LABORATORY Creatinine 1.10(H) 0.51 - 0.95 mg/dL 02/22/2023 10:38 AM CDT LABORATORY Calcium 9.2 8.8 - 10.2 mg/dL 02/22/2023 10:38 AM CDT LABORATORY Glucose 91 70 - 99 mg/dL 02/22/2023 10:38 AM CDT LABORATORY GFR Estimate 56(L) >60 mL/min/1.7 3m2 02/22/2023 10:38 AM CDT LABORATORY Comment:eGFR calculated usin 2020 CKD-EPI equation. Blood BLOOD SPECIMEN / Unknown Venipuncture / Unknown 02/22/2023 6:49 AM CDT 02/22/2023 10:15 AM CDT Lukasz Weaver MD LAB - BLOOD ORDERABL ES LABORATORY [facility] Acute Care Lab [address] Lab (1st floor, no room number) [place] [address], [facility] [phone] * Phosphorus (02/22/2023 6:49 AM CDT) Phosphorus 3.5 2.5 - 4.5 mg/dL 02/22/2023 7:25 AM CDT LABORATORY Blood STRUCTURE OF RIGHT UPPER LIMB / Unknown Venipuncture / Unknown 02/22/2023 6:49 AM CDT 02/22/2023 7:01 AM CDT Lukasz Weaver MD LAB - BLOOD ORDERABL ES LABORATORY [facility] Acute Care Lab [address] Lab (1st floor, no room number) [place] [phone], [facility] [phone] * (ABNORMAL) Magnesium (02/22/2023 6:49 AM CDT) Magnesium 2.4(H) 1.7 - 2.3 mg/dL 02/22/2023 7:25 AM CDT RH LABORATORY Blood STRUCTURE OF RIGHT UPPER LIMB / Unknown Venipuncture / Unknown 02/22/2023 6:49 AM CDT 02/22/2023 7:01 AM CDT Lukasz Weaver MD LAB - BLOOD ORDERABL ES Performing Organization Address [facility]/ZIP Co de Phone Number LABORATORY [facility] Acute Care Lab [address] Lab (1st floor, no room number) [place] [address], [facility] [phone] * (ABNORMAL) CBC with platelets (02/22/2023 6:49 AM CDT) WBC Count 13.5(H) 4.0 - 11.0 10e3/uL 02/22/2023 7:09 AM CDT RH LABORATORY RBC Count 4.60 3.80 - 5.20 10e6/uL 02/22/2023 7:09 AM CDT RH LABORATORY Hemoglobin 12.5 11.7 - 15.7 g/dL 02/22/2023 7:09 AM CDT RH LABORATORY Hematocrit 40.5 35.0 - 47.0 % 02/22/2023 7:09 AM CDT RH LABORATORY MCV 88 78 - 100 fL 02/22/2023 7:09 AM CDT RH LABORATORY MCH 27.2 26.5 - 33.0 pg 02/22/2023 7:09 AM CDT RH LABORATORY MCHC 30.9(L) 31.5 - 36.5 g/dL 02/22/2023 7:09 AM CDT RH LABORATORY RDW 15.0 10.0 - 15.0 % 02/22/2023 7:09 AM CDT RH LABORATORY Platelet Count 244 150 - 450 10e3/uL 02/22/2023 7:09 AM CDT RH LABORATORY Blood STRUCTURE OF RIGHT UPPER LIMB / Unknown Venipuncture / Unknown 02/22/2023 6:49 AM CDT 02/22/2023 7:01 AM CDT Eva Hammond DO LAB - BLOOD ORDERA BLES LABORATORY [facility] [address] [facility], no room number) [place] [phone], [facility] [phone] * Phosphorus (02/21/2023 6:43 AM CDT) Phosphorus 3.8 2.5 - 4.5 mg/dL 02/21/2023 7:16 AM CDT RH LABORATORY Blood STRUCTURE OF LEFT UPPER LIMB / Unknown Venipuncture / Unknown 02/21/2023 6:43 AM CDT 02/21/2023 6:49 AM CDT Eva Hammond DO LAB - BLOOD ORDERA BLES LABORATORY [facility] Acute Care Lab [address] Lab (1st floor, no room number) [place] [address], [facility] [phone] * Magnesium (02/21/2023 6:43 AM CDT) Magnesium 2.3 1.7 - 2.3 mg/dL 02/21/2023 7:16 AM CDT RH LABORATORY Blood STRUCTURE OF LEFT UPPER LIMB / Unknown Venipuncture / Unknown 02/21/2023 6:43 AM CDT 02/21/2023 6:49 AM CDT Eav Hammond DO LAB - BLOOD ORDERA BLES LABORATORY [facility] Acute Care Lab [address] Lab (1st floor, no room number) [place] [address], [facility] [phone] * (ABNORMAL) Basic metabolic panel (02/21/2023 6:43 AM CDT) Sodium 139 136 - 145 mmol/L 02/21/2023 7:16 AM CDT LABORATORY Potassium 4.8 3.4 - 5.3 mmol/L 02/21/2023 7:16 AM CDT LABORATORY Chloride 104 98 - 107 mmol/L 02/21/2023 7:16 AM CDT LABORATORY Carbon Dioxide (CO2) 28 22 - 29 mmol/L 02/21/2023 7:16 AM CDT LABORATORY Anion Gap 7 7 - 15 mmol/L 02/21/2023 7:16 AM CDT LABORATORY Urea Nitrogen 14.0 8.0 - 23.0 mg/dL 02/21/2023 7:16 AM CDT LABORATORY Creatinine 1.09(H) 0.51 - 0.95 mg/dL 02/21/2023 7:16 AM CDT LABORATORY Calcium 9.1 8.8 - 10.2 mg/dL 02/21/2023 7:16 AM CDT LABORATORY Glucose 116(H) 70 - 99 mg/dL 02/21/2023 7:16 AM CDT LABORATORY GFR Estimate 57(L) >60 mL/min/1.7 3m2 02/21/2023 7:16 AM CDT LABORATORY Comment:eGFR calculated usin 2020 CKD-EPI equation. Blood STRUCTURE OF LEFT UPPER LIMB / Unknown Venipuncture / Unknown 02/21/2023 6:43 AM CDT 02/21/2023 6:49 AM CDT Eva Hammond DO LAB - BLOOD ORDERA BLES LABORATORY [facility] Lab [address] Lab (1st floor, no room number) [place] [address], [facility] [phone] * (ABNORMAL) CBC with platelets (02/21/2023 6:43 AM CDT) WBC Count 12.1(H) 4.0 - 11.0 10e3/uL 02/21/2023 6:52 AM CDT RH LABORATORY RBC Count 4.59 3.80 - 5.20 10e6/uL 02/21/2023 6:52 AM CDT RH LABORATORY Hemoglobin 12.5 11.7 - 15.7 g/dL 02/21/2023 6:52 AM CDT RH LABORATORY Hematocrit 40.2 35.0 - 47.0 % 02/21/2023 6:52 AM CDT RH LABORATORY MCV 88 78 - 100 fL 02/21/2023 6:52 AM CDT RH LABORATORY MCH 27.2 26.5 - 33.0 pg 02/21/2023 6:52 AM CDT RH LABORATORY MCHC 31.1(L) 31.5 - 36.5 g/dL 02/21/2023 6:52 AM CDT RH LABORATORY RDW 14.9 10.0 - 15.0 % 02/21/2023 6:52 AM CDT RH LABORATORY Platelet Count 238 150 - 450 10e3/uL 02/21/2023 6:52 AM CDT RH LABORATORY Blood STRUCTURE OF LEFT UPPER LIMB / Unknown Venipuncture / Unknown 02/21/2023 6:43 AM CDT 02/21/2023 6:49 AM CDT Eva Hammond DO LAB - BLOOD ORDERA BLES RH LABORATORY [facility] Acute Care Lab [address] Lab (1st floor, no room number) [place] [address], [facility] [phone] * CT Abdomen Pelvis w Contrast (02/20/2023 11:36 AM CDT) Anatomical Region Laterality Modality Abdomen/Pelvis, SUBRAD CT TIFFANIE DY, UMP CT ABDOMEN PELVIS, RAD CT Computed Tomography Impressions 02/20/2023 12:50 PM CDT IMPRESSION: 1. ??Several segments of luminal narrowing and mucosal hyperenhancement in the distal ileum suggest acute on chronic Crohn's ileitis. 2. ??There are also apparent narrowed short segments in the distal sigmoid colon. 3. ??No evidence for associated bowel obstruction. JOAQUÍN LUNA MD Narrative 02/20/2023 12:[address] ABDOMEN AND PELVIS WITH CONTRAST 02/20/2023 11:36 AM CLINICAL HISTORY: Abdominal pain. TECHNIQUE: CT scan of the abdomen and pelvis was performed following injection of IV contrast. Multiplanar reformats were obtained. Dose reduction techniques were used. CONTRAST: 58mL Isovue-370 COMPARISON: CT of the abdomen and pelvis performed 02/10/2023. FINDINGS: LOWER CHEST: Small calcified granuloma in the right lower lobe. HEPATOBILIARY: The gallbladder is not seen, and is likely surgically absent. No hepatic masses are seen. PANCREAS: Normal. SPLEEN: Normal. ADRENAL GLANDS: Normal. KIDNEYS/BLADDER: Right nephrectomy. Left kidney is unremarkable. No hydronephrosis. BOWEL: Several narrowed segments of distal ileum demonstrate mucosal hyperenhancement. These overall have a similar appearance to the previous exam (for example, series 3 image 160). Short segments of apparent narrowing in the distal sigmoid colon were not as well seen on the previous exam, but also likely unchanged with no convincing associated mucosal hyperenhancement. No evidence for associated bowel obstruction. The appendix is not visualized, however, there are no secondary signs of appendicitis. PELVIC ORGANS: Hysterectomy. No free fluid in the pelvis. LYMPH NODES: No enlarged lymph nodes are identified in the abdomen or pelvis. VASCULATURE: Mild atherosclerotic aortoiliac calcification. ADDITIONAL FINDINGS: Degenerative changes in the visualized thoracolumbar spine. MUSCULOSKELETAL: Unremarkable. Procedure Note Joaquín Luna MD - 02/20/2023 CT ABDOMEN AND PELVIS WITH CONTRAST 02/20/2023 11:36 AM CLINICAL HISTORY: Abdominal pain. TECHNIQUE: CT scan of the abdomen and pelvis was performed following injection of IV contrast. Multiplanar reformats were obtained. Dose reduction techniques were used. CONTRAST: 58mL Isovue-370 COMPARISON: CT of the abdomen and pelvis performed 02/10/2023. FINDINGS: LOWER CHEST: Small calcified granuloma in the right lower lobe. HEPATOBILIARY: The gallbladder is not seen, and is likely surgically absent. No hepatic masses are seen. PANCREAS: Normal. SPLEEN: Normal. ADRENAL GLANDS: Normal. KIDNEYS/BLADDER: Right nephrectomy. Left kidney is unremarkable. No hydronephrosis. BOWEL: Several narrowed segments of distal ileum demonstrate mucosal hyperenhancement. These overall have a similar appearance to the previous exam (for example, series 3 image 160). Short segments of apparent narrowing in the distal sigmoid colon were not as well seen on the previous exam, but also likely unchanged with no convincing associated mucosal hyperenhancement. No evidence for associated bowel obstruction. The appendix is not visualized, however, there are no secondary signs of appendicitis. PELVIC ORGANS: Hysterectomy. No free fluid in the pelvis. LYMPH NODES: No enlarged lymph nodes are identified in the abdomen or pelvis. VASCULATURE: Mild atherosclerotic aortoiliac calcification. ADDITIONAL FINDINGS: Degenerative changes in the visualized thoracolumbar spine. MUSCULOSKELETAL: Unremarkable. IMPRESSION: 1. Several segments of luminal narrowing and mucosal hyperenhancement in the distal ileum suggest acute on chronic Crohn's ileitis. 2. There are also apparent narrowed short segments in the distal sigmoid colon. 3. No evidence for associated bowel obstruction. JOAQUÍN LUNA MD [facility] CT ORDERABL ES * (ABNORMAL) Basic metabolic panel (02/20/2023 6:58 AM CDT) Sodium 138 136 - 145 mmol/L 02/20/2023 7:32 AM CDT [facility] Potassium 4.4 3.4 - 5.3 mmol/L 02/20/2023 7:32 AM CDT [facility] Chloride 104 98 - 107 mmol/L 02/20/2023 7:32 AM CDT [facility] Carbon Dioxide (CO2) 25 22 - 29 mmol/L 02/20/2023 7:32 AM CDT [facility] Anion Gap 9 7 - 15 mmol/L 02/20/2023 7:32 AM CDT [facility] Urea Nitrogen 14.8 8.0 - 23.0 mg/dL 02/20/2023 7:32 AM CDT [facility] Creatinine 1.06(H) 0.51 - 0.95 mg/dL 02/20/2023 7:32 AM CDT LABORATORY Calcium 9.0 8.8 - 10.2 mg/dL 02/20/2023 7:32 AM CDT LABORATORY Glucose 154(H) 70 - 99 mg/dL 02/20/2023 7:32 AM CDT LABORATORY GFR Estimate 59(L) >60 mL/min/1.7 3m2 02/20/2023 7:32 AM CDT LABORATORY Comment:eGFR calculated usin 2020 CKD-EPI equation. Blood STRUCTURE OF LEFT UPPER LIMB / Unknown Venipuncture / Unknown 02/20/2023 6:58 AM CDT 02/20/2023 7:02 AM CDT Ulises Rondon MD LAB - BLOOD ORDERABL ES LABORATORY [facility] Lab [address] Lab (1st floor, no room number) [place] [address] [phone] * (ABNORMAL) Basic metabolic panel (02/19/2023 5:22 AM CDT) Sodium 137 136 - 145 mmol/L 02/19/2023 7:28 AM CDT LABORATORY Potassium 4.4 3.4 - 5.3 mmol/L 02/19/2023 7:28 AM CDT LABORATORY Chloride 104 98 - 107 mmol/L 02/19/2023 7:28 AM CDT LABORATORY Carbon Dioxide (CO2) 26 22 - 29 mmol/L 02/19/2023 7:28 AM CDT LABORATORY Anion Gap 7 7 - 15 mmol/L 02/19/2023 7:28 AM CDT LABORATORY Urea Nitrogen 12.0 8.0 - 23.0 mg/dL 02/19/2023 7:28 AM CDT LABORATORY Creatinine 1.01(H) 0.51 - 0.95 mg/dL 02/19/2023 7:28 AM CDT LABORATORY Calcium 8.8 8.8 - 10.2 mg/dL 02/19/2023 7:28 AM CDT LABORATORY Glucose 119(H) 70 - 99 mg/dL 02/19/2023 7:28 AM CDT [facility] GFR Estimate 62 >60 mL/min/1.7 3m2 02/19/2023 7:28 AM CDT [facility] Comment:eGFR calculated usin 2020 CKD-EPI equation. Blood STRUCTURE OF RIGHT UPPER LIMB / Unknown Venipuncture / Unknown 02/19/2023 5:22 AM CDT 02/19/2023 5:43 AM CDT Lukasz Weaver MD LAB - BLOOD ORDERABL ES LABORATORY [facility] Lab [address] Lab (1st floor, no room number) [place] [address], [facility] [phone] * Extra Green Top (Naomi Heparin) Tube (02/19/2023 5:22 AM CDT) Hold Specimen [facility] 02/19/2023 6:46 AM CDT [facility] Blood STRUCTURE OF RIGHT UPPER LIMB / Unknown Venipuncture / Unknown 02/19/2023 5:22 AM CDT 02/19/2023 5:43 AM CDT Lukasz Weaver MD LAB - BLOOD ORDERABL ES LABORATORY [facility] Lab [address] Lab (1st floor, no room number) [place] [address], [facility] [phone] * (ABNORMAL) CBC with platelets (02/19/2023 5:22 AM CDT) WBC Count 8.2 4.0 - 11.0 10e3/uL 02/19/2023 5:37 AM CDT [facility] RBC Count 4.36 3.80 - 5.20 10e6/uL 02/19/2023 5:37 AM CDT [facility] Hemoglobin 11.7 11.7 - 15.7 g/dL 02/19/2023 5:37 AM CDT [facility] Hematocrit 38.6 35.0 - 47.0 % 02/19/2023 5:37 AM CDT [facility] MCV 89 78 - 100 fL 02/19/2023 5:37 AM CDT [facility] MCH 26.8 26.5 - 33.0 pg 02/19/2023 5:37 AM CDT [facility] MCHC 30.3(L) 31.5 - 36.5 g/dL 02/19/2023 5:37 AM CDT [facility] RDW 14.6 10.0 - 15.0 % 02/19/2023 5:37 AM CDT [facility] Platelet Count 222 150 - 450 10e3/uL 02/19/2023 5:37 AM CDT [facility] Blood STRUCTURE OF RIGHT UPPER LIMB / Unknown Venipuncture / Unknown 02/19/2023 5:22 AM CDT 02/19/2023 5:32 AM CDT Ulises Rondon MD LAB - BLOOD ORDERABL ES [facility] [address] Lab (1st floor, no room number) [place] [address], [facility] [phone] * XR Gastrografin Challenge (02/17/2023 9:45 PM CDT) Anatomical Region Laterality Modality Abdomen/Pelvis Digital Radiogra phy Impressions 02/17/2023 10:11 PM CDT IMPRESSION: Mildly dilated distal small bowel, similar to prior CT scan same day radiograph. Administered oral contrast reached the colon by 8 hours. Cholecystectomy. Multiple pelvic phleboliths. Bones are unchanged. MAIKEL GOODEN MD SYSTEM ID: [id number] Narrative 02/17/2023 10:11 PM CDT XR GASTROGRAFIN CHALLENGE ?? 02/17/2023 9:45 PM HISTORY: Persistent SBO COMPARISON: Same date abdominal radiograph, CT abdomen/pelvis 02/10/2023 Procedure Note Maikel Gooden MD - 02/17/2023 XR GASTROGRAFIN CHALLENGE 02/17/2023 9:45 PM HISTORY: Persistent SBO COMPARISON: Same date abdominal radiograph, CT abdomen/pelvis 02/10/2023 IMPRESSION: Mildly dilated distal small bowel, similar to prior CT scan same day radiograph. Administered oral contrast reached the colon by 8 hours. Cholecystectomy. Multiple pelvic phleboliths. Bones are unchanged. MAIKEL GOODEN MD SYSTEM ID: [id number] Roberta James GARCIA IMG DIAGNOSTIC MELVA GING ORDERABLES * US Lower Extremity Venous Duplex Right (02/17/2023 2:32 PM CDT) Anatomical Region Laterality Modality Lower Extremity Ultrasound Impressions 02/17/2023 3:04 PM CDT IMPRESSION: Negative for DVT in the right lower extremity. MAIKEL PATEL MD Narrative 02/17/2023 3:04 PM CDT VENOUS ULTRASOUND RIGHT LOWER EXTREMITY ??02/17/2023 2:32 PM HISTORY: Pain without obvious swelling. Question of deep vein thrombosis (DVT) COMPARISON: None. Technique: Color Doppler and spectral waveform analysis performed throughout the deep veins of the right lower extremity. FINDINGS: The right common femoral, proximal greater saphenous, femoral, and popliteal veins demonstrate normal blood flow, compression, and augmentation. Posterior tibial and peroneal veins are compressible. Contralateral left common femoral vein is patent. Procedure Note Maikel Patel MD - 02/17/2023 VENOUS ULTRASOUND RIGHT LOWER EXTREMITY 02/17/2023 2:32 PM HISTORY: Pain without obvious swelling. Question of deep vein thrombosis (DVT) COMPARISON: None. Technique: Color Doppler and spectral waveform analysis performed throughout the deep veins of the right lower extremity. FINDINGS: The right common femoral, proximal greater saphenous, femoral, and popliteal veins demonstrate normal blood flow, compression, and augmentation. Posterior tibial and peroneal veins are compressible. Contralateral left common femoral vein is patent. IMPRESSION: Negative for DVT in the right lower extremity. MAIKEL PATEL MD Ulises Rondon MD IMG US ORDERABLES * XR Abdomen 2 Views (02/17/2023 1:04 PM CDT) Anatomical Region Laterality Modality Abdomen/Pelvis Digital Radiogra phy Impressions 02/17/2023 2:28 PM CDT IMPRESSION: Upright and supine views of the abdomen and pelvis were obtained. Nonobstructive bowel gas pattern. No free peritoneal or portal venous gas. Surgical clips in the right upper quadrant and right mid abdomen. Multiple pelvic phleboliths. QUETA MCLEOD MD Narrative 02/17/2023 2:28 PM CDT ABDOMEN TWO VIEWS ?? 02/17/2023 1:04 PM HISTORY: Admit with partial small bowel obstruction re Crohn's, recurrent symptoms. Evaluate for obstruction vs ileus. COMPARISON: CT abdomen and pelvis on 02/10/2023. Procedure Note Queta Mcleod MD - 02/17/2023 ABDOMEN TWO VIEWS 02/17/2023 1:04 PM HISTORY: Admit with partial small bowel obstruction re Crohn's, recurrent symptoms. Evaluate for obstruction vs ileus. COMPARISON: CT abdomen and pelvis on 02/10/2023. IMPRESSION: Upright and supine views of the abdomen and pelvis were obtained. Nonobstructive bowel gas pattern. No free peritoneal or portal venous gas. Surgical clips in the right upper quadrant and right mid abdomen. Multiple pelvic phleboliths. QUETA MCLEOD MD [employer] IMG DIAGNO STIC IMAGING ORDERABLES * Prealbumin (02/17/2023 7:21 AM CDT) Prealbumin 32 15 - 45 mg/dL 02/18/2023 12:33 PM CDT SPECIALTY CORE/PROT/ENDO Blood STRUCTURE OF RIGHT UPPER LIMB / Unknown Venipuncture / Unknown 02/17/2023 7:21 AM CDT 02/17/2023 7:29 AM CDT Roberta Ramirez PA-C LAB - BLOOD ORDERA BLES [facility] [address] [facility] [address] [facility], [address] [place] [address], [facility] [phone] SPECIALTY CORE/PROT/ENDO Specialty Core/Prot/Endo [address] [facility] [place], [address] [place] [address] * (ABNORMAL) CBC with platelets and differential (02/17/2023 7:21 AM CDT) WBC Count 9.6 4.0 - 11.0 10e3/uL 02/17/2023 7:35 AM CDT [facility] RBC Count 4.22 3.80 - 5.20 10e6/uL 02/17/2023 7:35 AM CDT [facility] Hemoglobin 11.5(L) 11.7 - 15.7 g/dL 02/17/2023 7:35 AM CDT [facility] Hematocrit 36.7 35.0 - 47.0 % 02/17/2023 7:35 AM CDT [facility] MCV 87 78 - 100 fL 02/17/2023 7:35 AM CDT [facility] MCH 27.3 26.5 - 33.0 pg 02/17/2023 7:35 AM CDT [facility] MCHC 31.3(L) 31.5 - 36.5 g/dL 02/17/2023 7:35 AM CDT [facility] RDW 14.7 10.0 - 15.0 % 02/17/2023 7:35 AM CDT [facility] Platelet Count 239 150 - 450 10e3/uL 02/17/2023 7:35 AM CDT [facility] % Neutrophils 64 % 02/17/2023 7:35 AM CDT [facility] % Lymphocytes 25 % 02/17/2023 7:35 AM CDT [facility] % Monocytes 8 % 02/17/2023 7:35 AM CDT [facility] % Eosinophils 1 % 02/17/2023 7:35 AM CDT [facility] % Basophils 0 % 02/17/2023 7:35 AM CDT [facility] % Immature Granulocytes 2 % 02/17/2023 7:35 AM CDT [facility] NRBCs per 100 WBC 0 <1 /100 023 7:35 AM CDT [facility] Absolute Neutrophils 6.2 1.6 - 8.3 10e3/uL 02/17/2023 7:35 AM CDT [facility] Absolute Lymphocytes 2.4 0.8 - 5.3 10e3/uL 02/17/2023 7:35 AM CDT LABORATORY Absolute Monocytes 0.8 0.0 - 1.3 10e3/uL 02/17/2023 7:35 AM CDT [facility] Absolute Eosinophils 0.1 0.0 - 0.7 10e3/uL 02/17/2023 7:35 AM CDT LABORATORY Absolute Basophils 0.0 0.0 - 0.2 10e3/uL 02/17/2023 7:35 AM CDT [facility] Absolute Immature Granulocytes 0.2 <=0.4 10e3/uL 02/17/2023 7:35 AM CDT [facility] Absolute NRBCs 0.0 10e3/uL 02/17/2023 7:35 AM CDT LABORATORY Blood STRUCTURE OF RIGHT UPPER LIMB / Unknown Venipuncture / Unknown 02/17/2023 7:21 AM CDT 02/17/2023 7:29 AM CDT Massiel Mckenna MD LAB - BLOOD ORD ERABLES LABORATORY [facility] [address] [facility] Lab (1st floor, no room number) [place] [address], [facility] [phone] * (ABNORMAL) Comprehensive metabolic panel (02/17/2023 7:21 AM CDT) Sodium 139 136 - 145 mmol/L 02/17/2023 7:53 AM CDT LABORATORY Potassium 3.8 3.4 - 5.3 mmol/L 02/17/2023 7:53 AM CDT LABORATORY Chloride 105 98 - 107 mmol/L 02/17/2023 7:53 AM CDT LABORATORY Carbon Dioxide (CO2) 26 22 - 29 mmol/L 02/17/2023 7:53 AM CDT LABORATORY Anion Gap 8 7 - 15 mmol/L 02/17/2023 7:53 AM CDT LABORATORY Urea Nitrogen 18.4 8.0 - 23.0 mg/dL 02/17/2023 7:53 AM CDT LABORATORY Creatinine 1.12(H) 0.51 - 0.95 mg/dL 02/17/2023 7:53 AM CDT LABORATORY Calcium 8.4(L) 8.8 - 10.2 mg/dL 02/17/2023 7:53 AM CDT LABORATORY Glucose 89 70 - 99 mg/dL 02/17/2023 7:53 AM CDT [facility] Alkaline Phosphatase 57 35 - 104 U/L 02/17/2023 7:53 AM CDT [facility] AST 10 10 - 35 U/L 02/17/2023 7:53 AM CDT LABORATORY ALT 15 10 - 35 U/L 02/17/2023 7:53 AM CDT LABORATORY Protein Total 5.0(L) 6.4 - 8.3 g/dL 02/17/2023 7:53 AM CDT [facility] Albumin 3.1(L) 3.5 - 5.2 g/dL 02/17/2023 7:53 AM CDT LABORATORY Bilirubin Total 0.4 <=1.2 mg/dL 02/17/2023 7:53 AM CDT LABORATORY GFR Estimate 55(L) >60 mL/min/1.7 3m2 02/17/2023 7:53 AM CDT LABORATORY Comment:eGFR calculated usin g 2020 CKD-EPI equation. Blood STRUCTURE OF RIGHT UPPER LIMB / Unknown Venipuncture / Unknown 02/17/2023 7:21 AM CDT 02/17/2023 7:29 AM CDT Massiel Mckenna MD LAB - BLOOD ORD ERABLES LABORATORY [facility] [address] [facility] Lab (1st floor, no room number) [place] [address] [phone] * (ABNORMAL) Creatinine (02/16/2023 5:58 AM CDT) Creatinine 1.13(H) 0.51 - 0.95 mg/dL 02/16/2023 7:04 AM CDT LABORATORY GFR Estimate 54(L) >60 mL/min/1.7 3m2 02/16/2023 7:04 AM CDT LABORATORY Comment:eGFR calculated usin g 2020 CKD-EPI equation. Blood STRUCTURE OF LEFT UPPER LIMB / Unknown Venipuncture / Unknown 02/16/2023 5:58 AM CDT 02/16/2023 6:45 AM CDT Lukasz Weaver MD LAB - BLOOD ORDERABL ES LABORATORY [facility] [address] Lab (1st floor, no room number) [place] [address], [facility] [phone] * Platelet count (02/16/2023 5:58 AM CDT) Platelet Count 283 150 - 450 10e3/uL 02/16/2023 6:49 AM CDT LABORATORY Blood STRUCTURE OF LEFT UPPER LIMB / Unknown Venipuncture / Unknown 02/16/2023 5:58 AM CDT 02/16/2023 6:46 AM CDT Lukasz Weaver MD LAB - BLOOD ORDERABL ES LABORATORY [facility] [address] Lab (1st floor, no room number) [place] [phone], [facility] [phone] * (ABNORMAL) Basic metabolic panel (02/15/2023 10:11 AM CDT) Sodium 138 136 - 145 mmol/L 02/15/2023 10:47 AM CDT LABORATORY Potassium 3.2(L) 3.4 - 5.3 mmol/L 02/15/2023 10:47 AM CDT LABORATORY Chloride 104 98 - 107 mmol/L 02/15/2023 10:47 AM CDT LABORATORY Carbon Dioxide (CO2) 24 22 - 29 mmol/L 02/15/2023 10:47 AM CDT LABORATORY Anion Gap 10 7 - 15 mmol/L 02/15/2023 10:47 AM CDT LABORATORY Urea Nitrogen 22.6 8.0 - 23.0 mg/dL 02/15/2023 10:47 AM CDT LABORATORY Creatinine 1.16(H) 0.51 - 0.95 mg/dL 02/15/2023 10:47 AM CDT [facility] Calcium 8.7(L) 8.8 - 10.2 mg/dL 02/15/2023 10:47 AM CDT [facility] Glucose 115(H) 70 - 99 mg/dL 02/15/2023 10:47 AM CDT [facility] GFR Estimate 53(L) >60 mL/min/1.7 3m2 02/15/2023 10:47 AM CDT [facility] Comment:eGFR calculated usin 2020 CKD-EPI equation. Blood STRUCTURE OF LEFT UPPER LIMB / Unknown Venipuncture / Unknown 02/15/2023 10:11 AM CDT 02/15/2023 10:24 AM CDT Calin Pradhan DO LAB - BLOOD ORDERABL ES [facility] [address] [facility] ([facility], no room number) [place] [address] [phone] * (ABNORMAL) CBC with platelets (02/15/2023 10:11 AM CDT) WBC Count 14.3(H) 4.0 - 11.0 10e3/uL 02/15/2023 10:28 AM CDT [facility] RBC Count 4.61 3.80 - 5.20 10e6/uL 02/15/2023 10:28 AM CDT [facility] Hemoglobin 12.5 11.7 - 15.7 g/dL 02/15/2023 10:28 AM CDT [facility] Hematocrit 39.9 35.0 - 47.0 % 02/15/2023 10:28 AM CDT [facility] MCV 87 78 - 100 fL 02/15/2023 10:28 AM CDT [facility] MCH 27.1 26.5 - 33.0 pg 02/15/2023 10:28 AM CDT [facility] MCHC 31.3(L) 31.5 - 36.5 g/dL 02/15/2023 10:28 AM CDT [facility] RDW 14.6 10.0 - 15.0 % 02/15/2023 10:28 AM CDT [facility] Platelet Count 303 150 - 450 10e3/uL 02/15/2023 10:28 AM CDT LABORATORY Blood STRUCTURE OF LEFT UPPER LIMB / Unknown Venipuncture / Unknown 02/15/2023 10:11 AM CDT 02/15/2023 10:23 AM CDT Calin A Carolynn DO LAB - BLOOD ORDERABL ES LABORATORY [facility] [address] Lab (1st floor, no room number) [place] [address], [facility] [phone] * (ABNORMAL) Basic metabolic panel (02/14/2023 6:39 AM CDT) Sodium 140 136 - 145 mmol/L 02/14/2023 7:16 AM CDT LABORATORY Potassium 4.2 3.4 - 5.3 mmol/L 02/14/2023 7:16 AM CDT LABORATORY Chloride 106 98 - 107 mmol/L 02/14/2023 7:16 AM CDT LABORATORY Carbon Dioxide (CO2) 26 22 - 29 mmol/L 02/14/2023 7:16 AM CDT LABORATORY Anion Gap 8 7 - 15 mmol/L 02/14/2023 7:16 AM CDT LABORATORY Urea Nitrogen 18.1 8.0 - 23.0 mg/dL 02/14/2023 7:16 AM CDT LABORATORY Creatinine 1.06(H) 0.51 - 0.95 mg/dL 02/14/2023 7:16 AM CDT LABORATORY Calcium 9.0 8.8 - 10.2 mg/dL 02/14/2023 7:16 AM CDT LABORATORY Glucose 100(H) 70 - 99 mg/dL 02/14/2023 7:16 AM CDT LABORATORY GFR Estimate 59(L) >60 mL/min/1.7 3m2 02/14/2023 7:16 AM CDT LABORATORY Comment:eGFR calculated usin g 2020 CKD-EPI equation. Blood STRUCTURE OF LEFT UPPER LIMB / Unknown Venipuncture / Unknown 02/14/2023 6:39 AM CDT 02/14/2023 6:42 AM CDT Calin A Carolynn DO LAB - BLOOD ORDERABL ES LABORATORY [facility] [address] Lab (1st floor, no room number) [place] [address], [facility] [phone] * (ABNORMAL) CBC with platelets (02/14/2023 6:39 AM CDT) [facility] WBC Count 13.5(H) 4.0 - 11.0 10e3/uL 02/14/2023 6:45 AM CDT [facility] RBC Count 4.57 3.80 - 5.20 10e6/uL 02/14/2023 6:45 AM CDT [facility] Hemoglobin 12.4 11.7 - 15.7 g/dL 02/14/2023 6:45 AM CDT [facility] Hematocrit 39.3 35.0 - 47.0 % 02/14/2023 6:45 AM CDT [facility] MCV 86 78 - 100 fL 02/14/2023 6:45 AM CDT [facility] MCH 27.1 26.5 - 33.0 pg 02/14/2023 6:45 AM CDT [facility] MCHC 31.6 31.5 - 36.5 g/dL 02/14/2023 6:45 AM CDT [facility] RDW 14.6 10.0 - 15.0 % 02/14/2023 6:45 AM CDT [facility] Platelet Count 323 150 - 450 10e3/uL 02/14/2023 6:45 AM CDT [facility] Blood STRUCTURE OF LEFT UPPER LIMB / Unknown Venipuncture / Unknown 02/14/2023 6:39 AM CDT 02/14/2023 6:42 AM CDT Calin A Carolynn DO LAB - BLOOD ORDERABL ES LABORATORY [facility] [address] Lab (1st floor, no room number) [place] [address], [facility] [phone] * (ABNORMAL) Creatinine (02/13/2023 6:56 AM CDT) Creatinine 0.99(H) 0.51 - 0.95 mg/dL 02/13/2023 7:27 AM CDT [facility] GFR Estimate 64 >60 mL/min/1.7 3m2 02/13/2023 7:27 AM CDT [facility] Comment:eGFR calculated usin g 2020 CKD-EPI equation. Blood STRUCTURE OF RIGHT UPPER LIMB / Unknown Venipuncture / Unknown 02/13/2023 6:56 AM CDT 02/13/2023 7:06 AM CDT Lukasz Weaver MD LAB - BLOOD ORDERABL ES [facility] [address] Lab (1st floor, no room number) [place] [address], [facility] [phone] * Platelet count (02/13/2023 6:56 AM CDT) Platelet Count 327 150 - 450 10e3/uL 02/13/2023 7:11 AM CDT LABORATORY Blood STRUCTURE OF RIGHT UPPER LIMB / Unknown Venipuncture / Unknown 02/13/2023 6:56 AM CDT 02/13/2023 7:06 AM CDT Lukasz Weaver MD LAB - BLOOD ORDERABL ES [facility] [address] Lab (1st floor, no room number) [place] [address], [place] [phone] * C. difficile Toxin B PCR with reflex to C. difficile Antigen and Toxins A/B EIA (02/12/2023 12:38 PM CDT) C Difficile Toxin B by PCR Negative Negative 02/12/2023 5:16 PM CDT [facility] Comment:A negative result do es not exclude actual disease due to C. difficile and may be due to improper collection, handling and storage of the specimen or the number of organisms in the specimen is below the detection limit of the assay. Stool RECTAL CONTENTS / Unknown Non-blood Collection / Unknown 02/12/2023 12:38 PM CDT 02/12/2023 12:59 PM CDT Narrative [facility] - 02/12/2023 5:16 PM CDT [employer] Xpert C. difficile Assay, performed on the [employer], is a qualitative in vitro [...] an aid in the diagnosis of CDI. Calin Pradhan DO LAB - MICRO GENERAL ORDERABLES [facility] Inf. Diseases Diag. Lab [address] [facility], [address] [place] [address] [phone] * (ABNORMAL) CBC with platelets (02/12/2023 8:58 AM CDT) WBC Count 15.2(H) 4.0 - 11.0 10e3/uL 02/12/2023 9:06 AM CDT [facility] RBC Count 4.82 3.80 - 5.20 10e6/uL 02/12/2023 9:06 AM CDT [facility] Hemoglobin 12.9 11.7 - 15.7 g/dL 02/12/2023 9:06 AM CDT [facility] Hematocrit 41.2 35.0 - 47.0 % 02/12/2023 9:06 AM CDT [facility] MCV 86 78 - 100 fL 02/12/2023 9:06 AM CDT [facility] MCH 26.8 26.5 - 33.0 pg 02/12/2023 9:06 AM CDT [facility] MCHC 31.3(L) 31.5 - 36.5 g/dL 02/12/2023 9:06 AM CDT LABORATORY RDW 14.6 10.0 - 15.0 % 02/12/2023 9:06 AM CDT LABORATORY Platelet Count 363 150 - 450 10e3/uL 02/12/2023 9:06 AM CDT LABORATORY Blood STRUCTURE OF LEFT UPPER LIMB / Unknown Venipuncture / Unknown 02/12/2023 8:58 AM CDT 02/12/2023 9:02 AM CDT Swapnil Lawrence DO LAB - BLOOD ORDERA [facility] [address] [facility] (1st floor, no room number) [place] [address], [facility] [phone] * (ABNORMAL) Basic metabolic panel (02/12/2023 8:58 AM CDT) Sodium 140 136 - 145 mmol/L 02/12/2023 9:24 AM CDT LABORATORY Potassium 5.2 3.4 - 5.3 mmol/L 02/12/2023 9:24 AM CDT LABORATORY Chloride 105 98 - 107 mmol/L 02/12/2023 9:24 AM CDT LABORATORY Carbon Dioxide (CO2) 26 22 - 29 mmol/L 02/12/2023 9:24 AM CDT LABORATORY Anion Gap 9 7 - 15 mmol/L 02/12/2023 9:24 AM CDT LABORATORY Urea Nitrogen 14.2 8.0 - 23.0 mg/dL 02/12/2023 9:24 AM CDT LABORATORY Creatinine 0.93 0.51 - 0.95 mg/dL 02/12/2023 9:24 AM CDT LABORATORY Calcium 9.3 8.8 - 10.2 mg/dL 02/12/2023 9:24 AM CDT LABORATORY Glucose 130(H) 70 - 99 mg/dL 02/12/2023 9:24 AM CDT LABORATORY GFR Estimate 69 >60 mL/min/1.7 3m2 02/12/2023 9:24 AM CDT LABORATORY Comment:eGFR calculated usin 2020 CKD-EPI equation. Blood STRUCTURE OF LEFT UPPER LIMB / Unknown Venipuncture / Unknown 02/12/2023 8:58 AM CDT 02/12/2023 9:02 AM CDT Swapnil Lawrence DO LAB - BLOOD ORDERA BLES [facility] [address] Lab (1st floor, no room number) [place] [address], [facility] [phone] * Quantiferon TB Gold Plus (02/11/2023 2:28 PM CDT) [facility] Quantiferon-TB Gold Plus Negative Negative 02/13/2023 11:24 AM CDT UM SPECIALTY CORE/PROT/END O Comment: No interferon gamma response to M.tuberculosis antigens was detected. Infection with M.tuberculosis is unlikely, however a single negative result does not exclude infection. In patients at high risk for infection, a second test should be considered in accordance with the 2017 ATS/IDSA/CDC Clinical Pract ice Guidelines for Diagnosis of Tuberculosis in Adults and Children TB1 Ag minus Nil Value 0.00 IU/mL 02/13/2023 11:24 AM CDT UM SPECIALTY CORE/PROT/END O TB2 Ag minus Nil Value 0.00 IU/mL 02/13/2023 11:24 AM CDT UM SPECIALTY CORE/PROT/END O Mitogen minus Nil Result 3.46 IU/mL 02/13/2023 11:24 AM CDT UM SPECIALTY CORE/PROT/END O Nil Result 0.00 IU/mL 02/13/2023 11:24 AM CDT UM SPECIALTY CORE/PROT/END O Blood STRUCTURE OF LEFT UPPER LIMB / Unknown Venipuncture / Unknown 02/11/2023 2:28 PM CDT 02/11/2023 2:33 PM CDT Mayela Pruitt APRN APPLICATION DESIGN ENGINEER LAB - MAMIE RO GENERAL ORDERABLES UM SPECIALTY CORE/PROT/ENDO UM Specialty Core/Prot/Endo [address], [address] [place], [place] [address] [phone] * Quantiferon TB Gold Plus Purple Tube (02/11/2023 2:28 PM CDT) Quantiferon Mitogen 3.46 IU/mL 02/13/2023 10:35 AM CDT SPECIALTY CORE/PROT/ENDO Blood STRUCTURE OF LEFT UPPER LIMB / Unknown Venipuncture / Unknown 02/11/2023 2:28 PM CDT 02/11/2023 2:33 PM CDT Mayela Pruitt APRN [facility] LAB - MAMIE RO GENERAL ORDERABLES UM SPECIALTY CORE/PROT/ENDO Specialty Core/Prot/Endo [address] [facility], [facility] [address] [phone] * Quantiferon TB Gold Plus Yellow Tube (02/11/2023 2:28 PM CDT) Quantiferon TB2 Tube 0.00 02/13/2023 10:34 AM CDT SPECIALTY CORE/PROT/ENDO Blood STRUCTURE OF LEFT UPPER LIMB / Unknown Venipuncture / Unknown 02/11/2023 2:28 PM CDT 02/11/2023 2:33 PM CDT Mayela Pruitt APRN [facility] LAB - [facility] RO GENERAL ORDERABLES UM SPECIALTY CORE/PROT/ENDO Specialty Core/Prot/Endo [address] [facility], Room [address] [phone] * Quantiferon TB Gold Plus Green Tube (02/11/2023 2:28 PM CDT) Quantiferon TB1 Tube 0.00 IU/mL 02/13/2023 10:34 AM CDT SPECIALTY CORE/PROT/ENDO Blood STRUCTURE OF LEFT UPPER LIMB / Unknown Venipuncture / Unknown 02/11/2023 2:28 PM CDT 02/11/2023 2:33 PM CDT Mayela Pruitt APRN [facility] LAB - MAMIE RO GENERAL ORDERABLES UM SPECIALTY CORE/PROT/ENDO Specialty Core/Prot/Endo [address] [facility], Room [address] [phone] * Quantiferon TB Gold Plus Fatima Tube (02/11/2023 2:28 PM CDT) Pathologist [facility] Quantiferon Nil Tube 0.00 IU/mL 02/13/2023 10:33 AM CDT SPECIALTY CORE/PROT/ENDO Blood STRUCTURE OF LEFT UPPER LIMB / Unknown Venipuncture / Unknown 02/11/2023 2:28 PM CDT 02/11/2023 2:33 PM CDT Mayela Pruitt APRN [facility] LAB - [facility] RO GENERAL ORDERABLES Performing Organization Address City/[facility]/ZIP Co de Phone Number UM SPECIALTY CORE/PROT/ENDO Specialty Core/Prot/Endo [address] [facility], Room [address] [phone] * (ABNORMAL) CBC with platelets (02/11/2023 7:00 AM CDT) WBC Count 12.3(H) 4.0 - 11.0 10e3/uL 02/11/2023 7:24 AM CDT [facility] LABORATORY RBC Count 4.52 3.80 - 5.20 10e6/uL 02/11/2023 7:24 AM CDT [facility] LABORATORY Hemoglobin 12.1 11.7 - 15.7 g/dL 02/11/2023 7:24 AM CDT [facility] LABORATORY Hematocrit 39.8 35.0 - 47.0 % 02/11/2023 7:24 AM CDT RH LABORATORY MCV 88 78 - 100 fL 02/11/2023 7:24 AM CDT RH LABORATORY MCH 26.8 26.5 - 33.0 pg 02/11/2023 7:24 AM CDT RH LABORATORY MCHC 30.4(L) 31.5 - 36.5 g/dL 02/11/2023 7:24 AM CDT LABORATORY RDW 15.1(H) 10.0 - 15.0 % 02/11/2023 7:24 AM CDT LABORATORY Platelet Count 313 150 - 450 10e3/uL 02/11/2023 7:24 AM CDT LABORATORY Blood STRUCTURE OF LEFT UPPER LIMB / Unknown Venipuncture / Unknown 02/11/2023 7:00 AM CDT 02/11/2023 7:16 AM CDT Lukasz Weaver MD LAB - BLOOD ORDERABL ES LABORATORY [facility] Acute [facility] Lab [address] Lab (1st floor, no room number) [place] [address], [facility] [phone] * (ABNORMAL) Comprehensive metabolic panel (02/11/2023 7:00 AM CDT) Sodium 140 136 - 145 mmol/L 02/11/2023 7:39 AM CDT LABORATORY Potassium 5.1 3.4 - 5.3 mmol/L 02/11/2023 7:39 AM CDT LABORATORY Chloride 105 98 - 107 mmol/L 02/11/2023 7:39 AM CDT LABORATORY Carbon Dioxide (CO2) 25 22 - 29 mmol/L 02/11/2023 7:39 AM CDT LABORATORY Anion Gap 10 7 - 15 mmol/L 02/11/2023 7:39 AM CDT LABORATORY Urea Nitrogen 16.9 8.0 - 23.0 mg/dL 02/11/2023 7:39 AM CDT LABORATORY Creatinine 1.10(H) 0.51 - 0.95 mg/dL 02/11/2023 7:39 AM CDT LABORATORY Calcium 8.7(L) 8.8 - 10.2 mg/dL 02/11/2023 7:39 AM CDT LABORATORY Glucose 142(H) 70 - 99 mg/dL 02/11/2023 7:39 AM CDT LABORATORY Alkaline Phosphatase 68 35 - 104 U/L 02/11/2023 7:39 AM CDT LABORATORY AST 13 10 - 35 U/L 02/11/2023 7:39 AM CDT LABORATORY ALT 8(L) 10 - 35 U/L 02/11/2023 7:39 AM CDT LABORATORY Protein Total 5.7(L) 6.4 - 8.3 g/dL 02/11/2023 7:39 AM CDT RH LABORATORY Albumin 3.6 3.5 - 5.2 g/dL 02/11/2023 7:39 AM CDT LABORATORY Bilirubin Total 0.2 <=1.2 mg/dL 02/11/2023 7:39 AM CDT LABORATORY GFR Estimate 56(L) >60 mL/min/1.7 3m2 02/11/2023 7:39 AM CDT [facility] LABORATORY Comment:eGFR calculated usin 2020 CKD-EPI equation. Blood STRUCTURE OF LEFT UPPER LIMB / Unknown Venipuncture / Unknown 02/11/2023 7:00 AM CDT 02/11/2023 7:16 AM CDT Lukasz Weaver MD LAB - BLOOD ORDERABL ES [facility] [address] Lab (1st floor, no room number) [place] [address], [facility] [phone] * CT Abdomen Pelvis w Contrast (02/10/2023 10:57 PM CDT) Anatomical Region Laterality Modality Abdomen/Pelvis, SUBRAD CT TIFFANIE DY, UMP CT ABDOMEN PELVIS, RAD CT Computed Tomography 02/10/2023 10:5 7 PM CDT Impressions 02/10/2023 11:58 PM CDT IMPRESSION: 1. ??There are segments of narrowed distal small bowel causing a partial small bowel obstruction. No definite active inflammation. No abscess formation. Narrative 02/10/2023 11:58 PM CDT EXAM: CT ABDOMEN PELVIS W CONTRAST LOCATION: [facility] DATE/TIME: 02/10/2023 10:57 PM CDT INDICATION: RLQ pain; Crohn's. COMPARISON: None. TECHNIQUE: CT scan of the abdomen and pelvis was performed following injection of IV contrast. Multiplanar reformats were obtained. Dose reduction techniques were used. CONTRAST: 75 mL Isovue 370 FINDINGS: LOWER CHEST: Normal. HEPATOBILIARY: The gallbladder is absent. PANCREAS: Normal. SPLEEN: Normal. ADRENAL GLANDS: Normal. KIDNEYS/BLADDER: The right kidney is absent. The left kidney is unremarkable. BOWEL: There are several narrowed segments of ileum with resulting small bowel dilatation proximally. No definite active inflammatory changes. There is no free intraperitoneal gas. Trace amount of free pelvic fluid. LYMPH NODES: Normal. VASCULATURE: Atherosclerotic calcification of the aorta and its branches. No aneurysm. PELVIC ORGANS: The uterus is absent. There is no adnexal mass. MUSCULOSKELETAL: Degenerative disease in the spine. Procedure Note Swapnil Mathews MD - 02/11/2023 EXAM: CT ABDOMEN PELVIS W CONTRAST LOCATION: [facility] DATE/TIME: 02/10/2023 10:57 PM CDT INDICATION: RLQ pain; Crohn's. COMPARISON: None. TECHNIQUE: CT scan of the abdomen and pelvis was performed followinginjection of IV contrast. Multiplanar reformats were obtained. Dosereduction techniques were used. CONTRAST: 75 mL Isovue 370 FINDINGS: LOWER CHEST: Normal. HEPATOBILIARY: The gallbladder is absent. PANCREAS: Normal. SPLEEN: Normal. ADRENAL GLANDS: Normal. KIDNEYS/BLADDER: The right kidney is absent. The left kidney isunremarkable. BOWEL: There are several narrowed segments of ileum with resulting smallbowel dilatation proximally. No definite active inflammatory changes.There is no free intraperitoneal gas. Trace amount of free pelvic fluid. LYMPH NODES: Normal. VASCULATURE: Atherosclerotic calcification of the aorta and its branches.No aneurysm. PELVIC ORGANS: The uterus is absent. There is no adnexal mass. MUSCULOSKELETAL: Degenerative disease in the spine. IMPRESSION: 1. There are segments of narrowed distal small bowel causing a partialsmall bowel obstruction. No definite active inflammation. No abscessformation. Philipp Schneider DO IMG CT ORDERABLE S * Hepatitis B Surface Antibody (02/10/2023 6:54 PM CDT) Hepatitis B Surface Antibody Instrument Value 0.79 <8.00 m[IU]/mL 02/12/2023 11:12 AM CDT SPECIALTY CORE/PROT/END O Hepatitis B Surface Antibody Nonreactive 02/12/2023 11:12 AM CDT UM SPECIALTY CORE/PROT/END O Comment:No antibody detected when the value is less than 8.00 mIU/mL. Blood STRUCTURE OF RIGHT UPPER LIMB / Unknown Venipuncture / Unknown 02/10/2023 6:54 PM CDT 02/10/2023 7:01 PM CDT Mayela Pruitt APRN APPLICATION DESIGN ENGINEER LAB - BLO OD ORDERABLES Performing Organization Address City/[facility]/ZIP Co de Phone Number UM SPECIALTY CORE/PROT/ENDO UM Specialty Core/Prot/Endo [address] [facility], Room [address] [phone] * Hepatitis B surface antigen (02/10/2023 6:54 PM CDT) Hepatitis B Surface Antigen Nonreactive Nonreactive 02/12/2023 11:12 AM CDT SPECIALTY CORE/PROT/EN DO Blood STRUCTURE OF RIGHT UPPER LIMB / Unknown Venipuncture / Unknown 02/10/2023 6:54 PM CDT 02/10/2023 7:01 PM CDT Mayela Pruitt APRN APPLICATION DESIGN ENGINEER LAB - BLO OD ORDERABLES Performing Organization Address City/[facility] Co de Phone Number UM SPECIALTY CORE/PROT/ENDO Specialty Core/Prot/Endo [address] [place] [address], [address] [phone] * Hepatitis B core antibody (02/10/2023 6:54 PM CDT) Hepatitis B Core Antibody Total Nonreactive Nonreactive 02/12/2023 11:12 AM CDT SPECIALTY CORE/PROT/EN DO Blood STRUCTURE OF RIGHT UPPER LIMB / Unknown Venipuncture / Unknown 02/10/2023 6:54 PM CDT 02/10/2023 7:01 PM CDT Mayela Pruitt APRN APPLICATION DESIGN ENGINEER LAB - BLO OD ORDERABLES UM SPECIALTY CORE/PROT/ENDO UM Specialty Core/Prot/Endo [address] [facility] [address] Building, [address] [place] [address], [facility] [phone] * Extra Red Top Tube (02/10/2023 6:54 PM CDT) Hold Specimen [facility] 02/10/2023 8:04 PM CDT RH LABORATORY Blood STRUCTURE OF RIGHT UPPER LIMB / Unknown Venipuncture / Unknown 02/10/2023 6:54 PM CDT 02/10/2023 7:01 PM CDT Philipp Schneider LAB - BLOOD [facility] Lab [address] Lab (1st floor, no room number) [place] [address], [facility] [phone] * Extra Blue Top Tube (02/10/2023 6:54 PM CDT) Hold Specimen [facility] 02/10/2023 8:04 PM CDT RH LABORATORY Blood STRUCTURE OF RIGHT UPPER LIMB / Unknown Venipuncture / Unknown 02/10/2023 6:54 PM CDT 02/10/2023 7:01 PM CDT Philipp Schneider LAB - BLOOD ORDE SAMANTHA [facility] Lab [address] Lab (1st floor, no room number) [place] [address], [facility] [phone] * (ABNORMAL) CBC with platelets and differential (02/10/2023 6:54 PM CDT) WBC Count 14.2(H) 4.0 - 11.0 10e3/uL 02/10/2023 7:04 PM CDT RH LABORATORY RBC Count 4.85 3.80 - 5.20 10e6/uL 02/10/2023 7:04 PM CDT RH LABORATORY Hemoglobin 13.1 11.7 - 15.7 g/dL 02/10/2023 7:04 PM CDT [facility] LABORATORY Hematocrit 42.1 35.0 - 47.0 % 02/10/2023 7:04 PM CDT RH LABORATORY MCV 87 78 - 100 fL 02/10/2023 7:04 PM CDT RH LABORATORY MCH 27.0 26.5 - 33.0 pg 02/10/2023 7:04 PM CDT RH LABORATORY MCHC 31.1(L) 31.5 - 36.5 g/dL 02/10/2023 7:04 PM CDT RH LABORATORY RDW 15.0 10.0 - 15.0 % 02/10/2023 7:04 PM CDT RH LABORATORY Platelet Count 404 150 - 450 10e3/uL 02/10/2023 7:04 PM CDT RH LABORATORY % Neutrophils 86 % 02/10/2023 7:04 PM CDT RH LABORAT[facility] % Lymphocytes 8 % 02/10/2023 7:04 PM CDT RH LAB[facility]AT[facility] % Monocytes 4 % 02/10/2023 7:04 PM CDT [facility] LAB[facility]AT[facility] % Eosinophils 0 % 02/10/2023 7:04 PM CDT RH LAB[facility]ATORY % Basophils 0 % 02/10/2023 7:04 PM CDT RH LABORATORY % Immature Granulocytes 2 % 02/10/2023 7:04 PM CDT RH LABORATORY NRBCs per 100 WBC 0 <1 /100 023 7:04 PM CDT RH LABORATORY Absolute Neutrophils 12.2(H) 1.6 - 8.3 10e3/uL 02/10/2023 7:04 PM CDT RH LABORATORY Absolute Lymphocytes 1.2 0.8 - 5.3 10e3/uL 02/10/2023 7:04 PM CDT RH LABORATORY Absolute Monocytes 0.5 0.0 - 1.3 10e3/uL 02/10/2023 7:04 PM CDT RH LABORATORY Absolute Eosinophils 0.0 0.0 - 0.7 10e3/uL 02/10/2023 7:04 PM CDT RH LABORATORY Absolute Basophils 0.1 0.0 - 0.2 10e3/uL 02/10/2023 7:04 PM CDT RH LABORATORY Absolute Immature Granulocytes 0.2 <=0.4 10e3/uL 02/10/2023 7:04 PM CDT RH LABORATORY Absolute NRBCs 0.0 10e3/uL 02/10/2023 7:04 PM CDT LABORATORY Blood STRUCTURE OF RIGHT UPPER LIMB / Unknown Venipuncture / Unknown 02/10/2023 6:54 PM CDT 02/10/2023 7:01 PM CDT Philipp Schneider LAB - BLOOD RUSS SAMANTHA [facility] LABORATORY [facility] Acute [facility] Lab [address] Lab (1st floor, no room number) [place] [address], [facility] [phone] * (ABNORMAL) Comprehensive metabolic panel (02/10/2023 6:54 PM CDT) Sodium 140 136 - 145 mmol/L 02/10/2023 7:19 PM CDT LABORATORY Potassium 4.7 3.4 - 5.3 mmol/L 02/10/2023 7:19 PM CDT LABORATORY Chloride 102 98 - 107 mmol/L 02/10/2023 7:19 PM CDT LABORATORY Carbon Dioxide (CO2) 24 22 - 29 mmol/L 02/10/2023 7:19 PM CDT LABORATORY Anion Gap 14 7 - 15 mmol/L 02/10/2023 7:19 PM CDT LABORATORY Urea Nitrogen 14.7 8.0 - 23.0 mg/dL 02/10/2023 7:19 PM CDT LABORATORY Creatinine 1.26(H) 0.51 - 0.95 mg/dL 02/10/2023 7:19 PM CDT LABORATORY Calcium 9.1 8.8 - 10.2 mg/dL 02/10/2023 7:19 PM CDT LABORATORY Glucose 131(H) 70 - 99 mg/dL 02/10/2023 7:19 PM CDT RH LABORATORY Alkaline Phosphatase 81 35 - 104 U/L 02/10/2023 7:19 PM CDT [facility] LABORATORY AST 13 10 - 35 U/L 02/10/2023 7:19 PM CDT RH LABORATORY ALT 12 10 - 35 U/L 02/10/2023 7:19 PM CDT LABORATORY Protein Total 6.8 6.4 - 8.3 g/dL 02/10/2023 7:19 PM CDT RH LABORATORY Albumin 4.2 3.5 - 5.2 g/dL 02/10/2023 7:19 PM CDT RH LABORATORY Bilirubin Total 0.3 <=1.2 mg/dL 02/10/2023 7:19 PM CDT RH LABORATORY GFR Estimate 48(L) >60 mL/min/1.7 3m2 02/10/2023 7:19 PM CDT RH LABORATORY Comment:eGFR calculated usin g 2020 CKD-EPI equation. Blood STRUCTURE OF RIGHT UPPER LIMB / Unknown Venipuncture / Unknown 02/10/2023 6:54 PM CDT 02/10/2023 7:01 PM CDT Philipp Schneider DO LAB - BLOOD RUSS SINGH LABORATORY [facility] Lab [address] Lab (1st floor, no room number) [place] [address], [facility] [phone] documented in this encounter Visit Diagnoses Diagnosis RLQ abdominal pain- Primary Abdominal pain, right lower quadrant RLQ abdominal pain Abdominal pain, right lower quadrant Partial small bowel obstruction (H) Unspecified intestinal obstruction IBD (inflammatory bowel disease) Other and unspecified noninfectious gastroenteritis and colitis Nausea Nausea alone documented in this encounter Admitting Diagnoses Diagnosis RLQ abdominal pain Abdominal pain, right lower quadrant documented in this encounter Administered Medications Inactive Administered Medications - up to 3 most recent administrations Medication Order MAR Action Action Date Dose Rate Site 0.9% sodium chloride BOLUS Intravenous, 1,000 mL, ONCE, at 1,000 mL/hr, Administer over 1 Hours, On 02/10/23 at 2225, For 1 dose $New Bag 02/10/2023 10:45 PM CDT 1,000 mLs 1000 mL/hr 0.9% sodium chloride BOLUS Intravenous, 100 mL, ONCE, On Betty 02/20/23 at 1200, For 1 dose $New Bag 02/20/2023 11:32 AM CDT 100 mLs acetaminophen (TYLENOL) Suppository 650 mg 650 mg, Rectal, EVERY 4 HOURS PRN, mild pain, Starting on 02/22/23 at 0930, Maximum acetaminophen dose from all sources= 75 mg/kg/day or 4 g/day. acetaminophen (TYLENOL) tablet 650 mg 650 mg, Oral, EVERY 4 HOURS PRN, mild pain, Starting on Fri02/14/23 at 2114, Maximum acetaminophen dose from all sources = 75 mg/kg/day not to exceed 4 grams/day. $Given 02/22/2023 8:36 AM CDT 650 mg $Given 02/21/2023 10:49 PM CDT 650 mg $Given 02/21/2023 12:03 AM CDT 650 mg acetaminophen (TYLENOL) tablet 975 mg 975 mg, Oral, 3 TIMES DAILY PRN, mild pain, Starting on 02/22/23 at 0930, Maximum acetaminophen dose from all sources = 75 mg/kg/day not to exceed 4 grams/day. $Given 02/23/2023 5:40 AM CDT 975 mg $Given 02/22/2023 9:46 PM CDT 975 mg $Given 02/22/2023 11:45 AM CDT 975 mg bisacodyl (DULCOLAX) suppository 10 mg 10 mg, Rectal, ONCE, On Fri02/21/23 at 0900, For 1 dose, Hold for loose stools. $Given 02/21/2023 12:35 PM CDT 10 mg bisacodyl (DULCOLAX) suppository 10 mg 10 mg, Rectal, 2 TIMES DAILY PRN, constipation, Starting on Fri02/21/23 at 1249, Hold for loose stools. calcium carbonate (TUMS) chewable tablet 500 mg 500 mg, Oral, DAILY PRN, heartburn, Starting on Fri02/22/23 at 0827 $Given 02/22/2023 2:43 PM CDT [address] scan flush Intravenous, 100 mL, ONCE, On Fri02/10/23 at 2250, For 1 dose, This entry is for use by Radiology to intermittently used as a flush in patients receiving a CT scan. $Given 02/10/2023 10:51 PM CDT 59 mLs dextrose 5% and 0.45% NaCl + KCl 20 mEq/L infusion at 1-30 mL/hr, Intravenous, CONTINUOUS, Starting on Fri02/17/23 at 1530, Until 02/22/23 at 0853 Rate/Dose Change 02/21/2023 2:25 PM CDT 10 mL/hr $New Bag 02/21/2023 11:29 AM CDT 100 mL/hr $New Bag 02/20/2023 9:54 PM CDT 100 mL/hr diatrizoate meglumine-sodium (GASTROGRAFIN/GASTROVIEW) 66-10 % solution 75 mL 75 mL, Oral, ONCE, On Fri02/17/23 at 1300, For 1 dose, Mix 75 ml of Gastrografin with 75ml of water have patient drink, Call XR @ *[id number] when done drinking. Keep patient NPO until test done with abd film 8 hours after drinking contrast $Given 02/17/2023 1:31 PM CDT 75 mLs diphenhydrAMINE (BENADRYL) injection 25 mg 25 mg, Intravenous, EVERY 6 HOURS PRN, itching, sleep, Starting on Fri02/12/23 at 1159 $Given 02/13/2023 10:04 PM CDT 25 mg $Given 02/12/2023 9:06 PM CDT 25 mg $Given 02/12/2023 12:31 PM CDT 25 mg enoxaparin ANTICOAGULANT (LOVENOX) injection 40 mg 40 mg, Subcutaneous, EVERY 24 HOURS, First dose on Fri02/11/23 at 0800, HOLD if platelet count falls below 50% of baseline or less than 100,000/??L and notify provider. $Given 02/11/2023 8:30 AM CDT 40 mg esomeprazole (nexIUM) CR capsule 40 mg - Patient Supplied 40 mg, Oral, 2 TIMES DAILY BEFORE MEALS, First dose on Fri02/22/23 at 1800 $Given 02/23/2023 8:20 AM CDT 40 mg $Given 02/22/2023 8:25 PM CDT 40 mg famotidine (PEPCID) tablet 20 mg 20 mg, Oral, AT BEDTIME, First dose (after last modification) on Fri02/16/23 at 2200, Dose adjusted per renal dosing policy. Estimated CrCl = 30-50 mL/min. $Given 02/21/2023 10:48 PM CDT 20 mg $Given 02/20/2023 9:01 PM CDT 20 mg $Given 02/19/2023 10:06 PM CDT 20 mg famotidine (PEPCID) tablet 40 mg 40 mg, Oral, AT BEDTIME, First dose on 02/15/23 at 2200 $Given 02/15/2023 10:01 PM CDT 40 mg HYDROmorphone (PF) (DILAUDID) injection 0.3 mg 0.3 mg, Intravenous, EVERY 2 HOURS PRN, severe pain, Starting on Fri02/11/23 at 0148 $Given 02/15/2023 12:19 AM CDT 0.3 mg $Given 02/13/2023 4:45 AM CDT 0.3 mg $Given 02/12/2023 3:37 PM CDT 0.3 mg inFLIXimab (REMICADE) 300 mg in sodium chloride 0.9 % 275 mL infusion 300 mg, Intravenous, ONCE, On Fri02/18/23 at 1130, For 1 dose, Administer over 120 Minutes, [...] of breath, dyspnea, wheezing, sneezing, or hives. Administer through an in-line, sterile, non-pyrogenic, low protein-binding 0.2-0.22 micron filter. $New Bag 02/18/2023 12:40 PM CDT 300 mg 137.5 mL/hr iopamidol (ISOVUE-370) solution 500 mL 500 mL, Intravenous, ONCE, On Fri02/10/23 at 2250, For 1 dose $Given 02/10/2023 10:51 PM CDT 75 mLs iopamidol (ISOVUE-370) solution 500 mL 500 mL, Intravenous, ONCE, On Betty 02/20/23 at 1200, For 1 dose $Given 02/20/2023 11:34 AM CDT 58 mLs lidocaine (LMX4) cream Topical, EVERY 1 HOUR PRN, pain, with VAD insertion, Starting on Fri02/10/23 at 2359, Apply at least 30 minutes prior to VAD insertion in divided doses as needed for size of site for insertion. MAX Dose: 2.5 g (?? of 5 g tube) Do NOT give if patient has a history of allergy to any local anesthetic or any carlos product. Do NOT use both lidocaine intradermal/subcutaneous injection and the lidocaine cream on the same site. $Given 02/11/2023 9:05 PM CDT lidocaine (LMX4) cream Topical, DAILY PRN, other, for IV start, Starting on Fri02/11/23 at 2034, For 1 dose, Apply to area of IV $Given 02/11/2023 9:05 PM CDT methocarbamol (ROBAXIN) tablet 500 mg 500 mg, Oral, 4 TIMES DAILY PRN, muscle spasms, Starting on Fri02/22/23 at 0828 $Given 02/23/2023 4:18 AM CDT 500 mg $Given 02/22/2023 1:09 PM CDT 500 mg methylPREDNISolone sodium succinate (solu-MEDROL) injection 20 mg 20 mg, Intravenous, EVERY 8 HOURS, First dose on Fri02/17/23 at 1200, Doses greater than or equal to 1000 mg administer over 60 minutes Doses greater than or equal to 500 mg administer over 30-60 minutes Doses greater than or equal to 250 mg administer over 15-30 minutes Doses less than or equal to 125 mg IVP over 3-5 minutes $Given 02/21/2023 7:49 AM CDT 20 mg $Given 02/21/2023 12:04 AM CDT 20 mg $Given 02/20/2023 4:01 PM CDT 20 mg methylPREDNISolone sodium succinate (solu-MEDROL) injection 62.5 mg 62.5 mg (rounded from 60 mg), Intravenous, EVERY 8 HOURS, First dose on Fri02/11/23 at 0130, For 3 days, 1st order in taper $Given 02/13/2023 5:55 PM CDT 62.5 mg $Given 02/13/2023 9:10 AM CDT 62.5 mg $Given 02/13/2023 1:24 AM CDT 62.5 mg montelukast (SINGULAIR) tablet 10 mg 10 mg, Oral, AT BEDTIME, First dose on Fri02/15/23 at 2200 $Given 02/22/2023 9:48 PM CDT 10 mg $Given 02/21/2023 10:49 PM CDT 10 mg $Given 02/20/2023 9:02 PM CDT 10 mg morphine (PF) injection 4 mg 4 mg, Intravenous, ONCE, On Fri02/10/23 at 2225, For 1 dose $Given 02/10/2023 10:42 PM CDT 4 mg morphine (PF) injection 4 mg 4 mg, Intravenous, ONCE, On Fri02/10/23 at 2335, For 1 dose $Given 02/10/2023 11:38 PM CDT 4 mg naloxone (NARCAN) injection 0.2 mg 0.2 mg, Intravenous, EVERY 2 MIN PRN, opioid reversal, Starting on Fri02/11/23 at 0154, Administer intravenous route when available and notify [...] 2 MIN PRN, opioid reversal, Starting on Fri02/11/23 at 0154, Administer intramuscular if an intravenous route is [...] 2 MIN PRN, opioid reversal, Starting on Fri02/11/23 at 0154, Administer intravenous route when available and notify [...] 2 MIN PRN, opioid reversal, Starting on Fri02/11/23 at 0154, Administer intramuscular if an intravenous route is [...] mg, Oral, AT BEDTIME, First dose on Fri02/11/23 at 2200 $Given 02/22/2023 9:48 PM CDT 25 mg $Given 02/21/2023 10:48 PM CDT 25 mg $Given 02/20/2023 9:02 PM CDT 25 mg ondansetron (ZOFRAN ODT) ODT tab 4 mg 4 mg, Oral, EVERY 6 HOURS PRN, nausea, vomiting, Starting on Fri02/15/23 at 0721, With dry hands, peel back foil backing and gently remove tablet. Do not push oral disintegrating tablet through foil backing. Administer immediately on tongue and oral disintegrating tablet dissolves in seconds, then swallow with saliva. Liquid not required. $Given 02/23/2023 8: 43 AM CDT 4 mg $Given 02/22/2023 2:43 PM CDT 4 mg $Given 02/22/2023 6:21 AM CDT 4 mg ondansetron (ZOFRAN) injection 4 mg 4 mg, Intravenous, ONCE, Administer over 2-5 Minutes, On Fri02/10/23 at 2225, For 1 dose, Irritant. $Given 02/10/2023 10:36 PM CDT 4 mg ondansetron (ZOFRAN) injection 4 mg 4 mg, Intravenous, EVERY 6 HOURS PRN, nausea, vomiting, Administer over 2-5 Minutes, Starting on Fri02/14/23 at 1547, Irritant. $Given 02/14/2023 10:36 PM CDT 4 mg $Given 02/14/2023 4:11 PM CDT 4 mg pantoprazole (PROTONIX) EC tablet 40 mg 40 mg, Oral, 2 TIMES DAILY BEFORE MEALS, First dose on Fri02/22/23 at 0900, DO NOT CRUSH. $Given 02/22/2023 9:55 AM CDT 40 mg polyethylene glycol (MIRALAX) Packet 17 g 17 g, Oral, DAILY, First dose on Fri02/21/23 at 0900, 1 Packet = 17 grams. Mix each gram with at least 1/2 ounce (15 mL) of water - 8 ounces for 17 g dose, 4 ounces for 8.5 g dose, 2 ounces for 4 g dose. Follow with the same volume of water. Hold for loose stools unless being administered as part of a bowel prep regimen or bowel clean out. $Given 02/23/2023 8:20 AM CDT 17 g $Given 02/22/2023 8:36 AM CDT 17 g $Given 02/21/2023 12:36 PM CDT 17 g predniSONE (DELTASONE) tablet 40 mg 40 mg, Oral, DAILY, First dose on Fri02/14/23 at 1230, Prednisone taper: 40mg daily x 7 days then decrease by 5mg every 7 days. $Given 02/17/2023 9:20 AM CDT 40 m g $Given 02/16/2023 8:38 AM CDT 40 mg $Given 02/15/2023 9:32 AM CDT 40 mg predniSONE (DELTASONE) tablet 40 mg 40 mg, Oral, DAILY, First dose on Fri02/21/23 at 1600, Start steroid taper $Given 02/23/2023 8:20 AM CDT 40 mg $Given 02/22/2023 8:36 AM CDT 40 mg $Given 02/21/2023 4:46 PM CDT 40 mg prochlorperazine (COMPAZINE) injection 10 mg 10 mg, Intravenous, EVERY 6 HOURS PRN, nausea, vomiting, Administer over 1-2 Minutes, Starting on Fri02/10/23 at 2359 $Given 02/18/2023 10:20 PM CDT 10 mg $Given 02/18/2023 12:29 PM CDT 10 mg $Given 02/15/2023 12:18 AM CDT 10 mg prochlorperazine (COMPAZINE) suppository 25 mg 25 mg, Rectal, EVERY 12 HOURS PRN, nausea, vomiting, Starting on Fri02/10/23 at 2359 prochlorperazine (COMPAZINE) tablet 10 mg 10 mg, Oral, EVERY 6 HOURS PRN, nausea, vomiting, Starting on Fri02/18/23 at 1141 sennosides (SENOKOT) tablet 8.6 mg 8.6 mg, Oral, 2 TIMES DAILY PRN, constipation, Starting on Fri02/21/23 at 1248, If the patient has multiple cough medications ordered PRN, offer in the following order per policy. ??Move to the next available step if the earlier step is ineffective. Step 1 - guaifenesin (single agent); Step 2 - dextromethorphan (or dextromethorphan + guaifenesin); Step 3 - benzonatate; Step 4 - codeine (or codeine + guaifenesin). Hold for loose stools. $Given 02/23/2023 4:18 AM CDT 8.6 mg $Given 02/22/2023 4:19 PM CDT 8.6 mg $Given 02/22/2023 11:46 AM CDT 8.6 mg simethicone (MYLICON) chewable tablet 80 mg 80 mg, Oral, EVERY 6 HOURS PRN, cramping, Starting on 02/22/23 at 0827 $Given 02/22/2023 9:55 AM CDT 80 mg sodium chloride (PF) 0.9% PF flush 3 mL 3 mL, Intracatheter, EVERY 8 HOURS, First dose on Fri02/11/23 at 0000, to lock peripheral IV dormant line $Given 02/19/2023 11:59 PM CDT 3 mLs $Given 02/19/2023 5:50 PM CDT 3 mLs $Given 02/19/2023 9:43 AM CDT 3 mLs sodium chloride (PF) 0.9% PF flush 3 mL 3 mL, Intracatheter, EVERY 1 MIN PRN, line flush, other, to ensure patency or to lock dormant line, Starting on Fri02/10/23 at 2359 $Given 02/14/2023 10:3 9 PM CDT 3 mLs $Given 02/14/2023 10:37 PM CDT 3 mLs $Given 02/14/2023 9:14 PM CDT 3 mLs sodium chloride 0.9% infusion at 50 mL/hr, Intravenous, CONTINUOUS, Starting on Fri02/11/23 at 0000, Until Fri02/14/23 at 0908 Restarted 02/13/2023 10:03 PM CDT 50 mL/hr $New Bag 02/13/2023 6:11 PM CDT 50 mL/hr Rate/Dose Change 02/13/2023 1:55 PM CDT 50 mL/h r traMADol (ULTRAM) tablet 50 mg 50 mg, Oral, EVERY 6 HOURS PRN, moderate pain, Starting on 02/15/23 at 0957 $Given 02/18/2023 3:26 AM CDT 50 mg $Given 02/17/2023 10:21 PM CDT 50 mg $Given 02/17/2023 12:26 PM CDT 50 mg traZODone (DESYREL) tablet 200 mg 200 mg, Oral, AT BEDTIME, First dose on Fri02/11/23 at 2200 $Given 02/22/2023 9:47 PM CDT 200 mg $Given 02/21/2023 10:47 PM CDT 200 mg $Given 02/20/2023 9:04 PM CDT 200 mg documented in this encounter Active and Recently Administered Medications Times are shown in CDT. Scheduled Medication Order 02/21/2023 02/22/2023 02/23/2023 bisacodyl (DULCOLAX) suppository 10 mg (COMPLETED) 10 mg, Rectal, ONCE, On Fri02/21/23 at 0900, For 1 dose, Hold for loose stools. 1235 ($Given - Provider: Cori Hassan RN) esomeprazole (nexIUM) CR capsule 40 mg - Patient Supplied 40 mg, Oral, 2 TIMES DAILY BEFORE MEALS, First dose on Fri02/22/23 at 1800 2024 ($Given - Provider: Guerda Sharma RN - Comment: pt request to take before bed tonight) 0820 ($Given - Provider: Cori Hassan RN) famotidine (PEPCID) tablet 20 mg (CANCELED) 20 mg, Oral, AT BEDTIME, First dose (after last modification) on Fri02/16/23 at 2200, Dose adjusted per renal dosing policy. Estimated CrCl = 30-50 mL/min. 2248 ($Given - Provider: Guerda Sharma RN) methylPREDNISolone sodium succinate (solu-MEDROL) injection 20 mg (CANCELED) 20 mg, Intravenous, EVERY 8 HOURS, First dose on Fri02/17/23 at 1200, Doses greater than or equal to 1000 mg administer over 60 minutes Doses greater than or equal to 500 mg administer over 30-60 minutes Doses greater than or equal to 250 mg administer over 15-30 minutes Doses less than or equal to 125 mg IVP over 3-5 minutes 0004 ($Given - Provider: Odalys Rodas RN)0749 ($Given - Provider: Cori Hassan RN) montelukast (SINGULAIR) tablet 10 mg 10 mg, Oral, AT BEDTIME, First dose on Fri02/15/23 at 2200 2249 ($Given - Provider: Guerda Sharma, IFRAH) 2148 ($Given - Provider: Guerda Sharma, RN) nortriptyline (PAMELOR) capsule 25 mg 25 mg, Oral, AT BEDTIME, First dose on Fri02/11/23 at 2200 2248 ($Given - Provider: Guerda Sharma, IFRAH) 2148 ($Given - Provider: Guerda Sharma, RN) pantoprazole (PROTONIX) EC tablet 40 mg (CANCELED) 40 mg, Oral, 2 TIMES DAILY BEFORE MEALS, First dose on Fri02/22/23 at 0900, DO NOT CRUSH. 0955 ($Given - Provider: Cori Hassan RN)1754 (Canceled Entry - Provider: Ewa Booth RN) polyethylene glycol (MIRALAX) Packet 17 g 17 g, Oral, DAILY, First dose on Fri02/21/23 at 0900, 1 Packet = 17 grams. Mix each gram with at least 1/2 ounce (15 mL) of water - 8 ounces for 17 g dose, 4 ounces for 8.5 g dose, 2 ounces for 4 g dose. Follow with the same volume of water. Hold for loose stools unless being administered as part of a bowel prep regimen or bowel clean out. 1236 ($Given - Provider: Cori Hassan RN) 0836 ($Given - Provider: Cori Hassan RN) 0820 ($Given - Provider: Cori Hassan, RN) predniSONE (DELTASONE) tablet 40 mg 40 mg, Oral, DAILY, First dose on Fri02/21/23 at 1600, Start steroid taper 1646 ($Given - Provider: Chong Finn RN) 0836 ($Given - Provider: Cori Hassan, RN) 0820 ($Given - Provider: Cori Hassan, RN) sodium chloride (PF) 0.9% PF flush 3 mL 3 mL, Intracatheter, EVERY 8 HOURS, First dose on Fri02/11/23 at 0000, to lock peripheral IV dormant line 0010 (Not Given - Provider: Odalys Rodas RN - Reason: IV Infusing)0816 (Not Given - Provider: Cori Hassan RN - Reason: IV Infusing)1645 (Not Given - Provider: Chong Finn RN - Reason: IV Infusing) 0000 (Not Given - Provider: uGerda Sharma RN - Reason: Loss of IV access)0844 (Not Given - Provider: Cori Hassan RN - Reason: No IV Access)1719 (Not Given - Provider: Ewa Booth RN - Reason: Patient/family refused) 0000 (Not Given - Provider: Guerda Sharma RN - Reason: No IV Access)0849 (Not Given - Provider: Cori Hassan RN - Reason: No IV Access) traZODone (DESYREL) tablet 200 mg 200 mg, Oral, AT BEDTIME, First dose on Fri02/11/23 at 2200 2247 ($Given - Provider: Guerda Sharma RN) 2147 ($Given - Provider: Guerda Sharma RN) Continuous Medication Order 02/21/2023 02/22/2023 02/23/2023 dextrose 5% and 0.45% NaCl + KCl 20 mEq/L infusion (CANCELED) at 1-30 mL/hr, Intravenous, CONTINUOUS, Starting on Fri02/17/23 at 1530, Until 02/22/23 at 0853 1129 ($New Bag - Provider: Cori Hassan RN)1425 (Rate/Dose Change - Provider: Cori Hassan RN - Comment: TKO rate.) PRN Medication Order 02/21/2023 02/22/2023 02/23/2023 acetaminophen (TYLENOL) Suppository 650 mg(Linked Group 1) 650 mg, Rectal, EVERY 4 HOURS PRN, mild pain, Starting on 02/22/23 at 0930, Maximum acetaminophen dose from all sources= 75 mg/kg/day or 4 g/day. 1145 (See Alternative - Provider: Cori Hassan RN)2146 (See Alternative - Provider: Guerda Sharma RN) 0540 (See Alternative - Provider: Guerda Sharma RN) acetaminophen (TYLENOL) tablet 650 mg (CANCELED) 650 mg, Oral, EVERY 4 HOURS PRN, mild pain, Starting on Fri02/14/23 at 2114, Maximum acetaminophen dose from all sources = 75 mg/kg/day not to exceed 4 grams/day. 0003 ($Given - Provider: Odalys Rodas RN)2249 ($Given - Provider: Guerda Sharma, IFRAH) 0836 ($Given - Provider: Cori Hassan, IRFAH) acetaminophen (TYLENOL) tablet 975 mg(Linked Group 1) 975 mg, Oral, 3 TIMES DAILY PRN, mild pain, Starting on 02/22/23 at 0930, Maximum acetaminophen dose from all sources = 75 mg/kg/day not to exceed 4 grams/day. 1145 ($Given - Provider: Cori Hassan RN)2146 ($Given - Provider: Guerda Sharma RN) 0540 ($Given - Provider: Guerda Sharma RN) bisacodyl (DULCOLAX) suppository 10 mg 10 mg, Rectal, 2 TIMES DAILY PRN, constipation, Starting on Fri02/21/23 at 1249, Hold for loose stools. calcium carbonate (TUMS) chewable tablet 500 mg 500 mg, Oral, DAILY PRN, heartburn, Starting on 02/22/23 at 0827 1443 ($Given - Provider: Cori Hassan RN) lidocaine (LMX4) cream Topical, EVERY 1 HOUR PRN, pain, with VAD insertion, Starting on Fri02/10/23 at 2359, Apply at least 30 minutes prior to [...] mild pain with VAD insertion, Starting on Fri02/10/23 at 2359, MAX dose 1 mL subcutaneous OR intradermal [...] Oral, AT BEDTIME PRN, sleep, Starting on 02/10/23 at 2359, Do not give unless at least 6 hours of uninterrupted sleep is expected. methocarbamol (ROBAXIN) tablet 500 mg 500 mg, Oral, 4 TIMES DAILY PRN, muscle spasms, Starting on 02/22/23 at 0828 1309 ($Given - Provider: Cori Hassan RN) 0418 ($Given - Provider: Guerda Sharma RN) naloxone (NARCAN) injection 0.2 mg(Linked Group 2) 0.2 mg, Intravenous, EVERY 2 MIN PRN, opioid reversal, Starting on Fri02/11/23 at 0154, Administer intravenous route when available and notify [...] doses. naloxone (NARCAN) injection 0.2 mg(Linked Group 2) 0.2 mg, Intramuscular, EVERY 2 MIN PRN, opioid reversal, Starting on Fri02/11/23 at 0154, Administer intramuscular if an intravenous route is [...] doses. naloxone (NARCAN) injection 0.4 mg(Linked Group 2) 0.4 mg, Intravenous, EVERY 2 MIN PRN, opioid reversal, Starting on Fri02/11/23 at 0154, Administer intravenous route when available and notify [...] doses. naloxone (NARCAN) injection 0.4 mg(Linked Group 2) 0.4 mg, Intramuscular, EVERY 2 MIN PRN, opioid reversal, Starting on Fri02/11/23 at 0154, Administer intramuscular if an intravenous route is [...] doses. ondansetron (ZOFRAN ODT) ODT tab 4 mg 4 mg, Oral, EVERY 6 HOURS PRN, nausea, vomiting, Starting on 02/15/23 at 0721, With dry hands, peel back foil backing and gently remove tablet. Do not push oral disintegrating tablet through foil backing. Administer immediately on tongue and oral disintegrating tablet dissolves in seconds, then swallow with saliva. Liquid not required. 0748 ($Given - Provider: Cori Hassan, RN)1404 ($Given - Provider: Cori Hassan, RN)1940 ($Given - Provider: Cori Hassan, RN) 0621 ($Given - Provider: Guerda Sharma RN)1443 ($Given - Provider: Cori Hassan, RN) 0843 ($Given - Provider: Cori Hassan, RN) prochlorperazine (COMPAZINE) injection 10 mg(Linked Group 3) 10 mg, Intravenous, EVERY 6 HOURS PRN, nausea, vomiting, Administer over 1-2 Minutes, Starting on 02/10/23 at 2359 prochlorperazine (COMPAZINE) suppository 25 mg(Linked Group 3) 25 mg, Rectal, EVERY 12 HOURS PRN, nausea, vomiting, Starting on Fri02/10/23 at 2359 prochlorperazine (COMPAZINE) tablet 10 mg 10 mg, Oral, EVERY 6 HOURS PRN, nausea, vomiting, Starting on Tu02/18/23 at 1141 sennosides (SENOKOT) tablet 8.6 mg 8.6 mg, Oral, 2 TIMES DAILY PRN, constipation, Starting on Fri02/21/23 at 1248, If the patient has multiple cough medications ordered PRN, offer in the following order per policy. ??Move to the next available step if the earlier step is ineffective. Step 1 - guaifenesin (single agent); Step 2 - dextromethorphan (or dextromethorphan + guaifenesin); Step 3 - benzonatate; Step 4 - codeine (or codeine + guaifenesin). Hold for loose stools. 1646 ($Given - Provider: Chong Finn RN) 1146 ($Given - Provider: Cori Hassan, RN)1619 ($Given - Provider: Ewa Booth, RN) 0418 ($Given - Provider: Guerda Sharma RN) simethicone (MYLICON) chewable tablet 80 mg 80 mg, Oral, EVERY 6 HOURS PRN, cramping, Starting on 02/22/23 at 0827 0955 ($Given - Provider: Cori Hassan, RN) sodium chloride (PF) 0.9% PF flush 3 mL 3 mL, Intracatheter, EVERY 1 MIN PRN, line flush, other, to ensure patency or to lock dormant line, Starting on 02/10/23 at 2359 traMADol (ULTRAM) tablet 50 mg 50 mg, Oral, EVERY 6 HOURS PRN, moderate pain, Starting on 02/15/23 at 0957 Linked Groups Order Group 1: acetaminophen (TYLENOL) tablet 975 mgJump to med 975 mg, Oral, 3 TIMES DAILY PRN, mild pain, Starting on 02/22/23 at 0930, Maximum acetaminophen dose from all sources = 75 mg/kg/day not to exceed 4 grams/day. Or acetaminophen (TYLENOL) Suppository 650 mgJump to med 650 mg, Rectal, EVERY 4 HOURS PRN, mild pain, Starting on 02/22/23 at 0930, Maximum acetaminophen dose from all sources= 75 mg/kg/day or 4 g/day. Group 2: naloxone (NARCAN) injection 0.2 mgJump to med 0.2 mg, Intravenous, EVERY 2 MIN PRN, opioid reversal, Starting on Fri02/11/23 at 0154, Administer intravenous route when available and notify [...] 2 MIN PRN, opioid reversal, Starting on Fri02/11/23 at 0154, Administer intravenous route when available and notify [...] 2 MIN PRN, opioid reversal, Starting on Fri02/11/23 at 0154, Administer intramuscular if an intravenous route is [...] 2 MIN PRN, opioid reversal, Starting on Fri02/11/23 at 0154, Administer intramuscular if an intravenous route is [...] not improved after 4 naloxone doses. Group 3: prochlorperazine (COMPAZINE) injection 10 mgJump to med 10 mg, Intravenous, EVERY 6 HOURS PRN, nausea, vomiting, Administer over 1-2 Minutes, Starting on Fri02/10/23 at 2359 Or prochlorperazine (COMPAZINE) suppository 25 mgJump to med 25 mg, Rectal, EVERY 12 HOURS PRN, nausea, vomiting, Starting on Fri02/10/23 at 2359 documented in this encounter Additional Health Concerns Infection Onset Date Last Indicated Resolved Time Rule Out C-difficile 02/12/2023 02/12/2023 023 5:16 PM CDT documented as of this encounter Care Teams Steel Heater Relationship Specialty Start Date End Date No Ref-Primary, Physician PCP - General 02/10/23 05/14/23 Car Su DO [address] [place] [address] Assigned Pain Medication Provider 02/22/23 03/21/23 documented as of this encounter
--- OUTSIDE RECORDS SUMMARY | 2023-09-17 14:38 | XMS_ITS | Encounter Summary ---
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 [id number] [address] [place] [id number] Alisa Norman PA-C [place] [facility] [address] [place] [address] [place] [id number] documented as of this encounter Visit Diagnoses Not on filedocumented in this encounter Care Teams Children'S Aide Relationship Specialty Start Date End Date No Ref-Primary, Physician PCP - General 02/10/23 05/14/23 Car Su DO [address] [place] [address] Assigned Pain Medication Provider 02/22/23 03/21/23 documented as of this encounter
--- OUTSIDE RECORDS SUMMARY | 2023-09-17 14:39 | XMS_ITS | Clinical Summary ---
Author Name Unknown Organization [facility] Address [place], [place] [address] Care Team Providers Care Laborer Operator Name Role Phone Adithya Patten MD Primary Care Provider Allergies Active Allergy Reactions Criticality Noted Date Comments Aspirin Shortness Of Breath,Rash,Palpitations,Vomiting 12/10/2005 Codeine Vomiting 12/10/2005 Mold Shortness Of Breath 02/13/2017 Penicillins Shortness Of Breath,Rash,Palpitations 12/10/2005 Medications Medication Sig Dispensed Refills Start Date End Date Status acetaminophen SR (TYLENOL ARTHRITIS) 650 mg extended release tablet Take 1 tablet by mouth every 8 hours if needed. Max acetaminophen dose: 4000mg in 24 hrs. 1 in am 1 in pm 0 11/01/2010 Active montelukast (SINGULAIR) 10 mg tablet Take 1 tablet by mouth at bedtime. 0 11/01/2010 Active traZODone (DESYREL) 50 mg tablet TAKE 1-3 TABS BY MOUTH AT BEDTIME 11 02/04/2017 Active esomeprazole (NEXIUM) 40 mg capsule Take 40 mg by mouth once daily. 11 02/03/2017 Active loratadine-pseudoep hedrine, 10-240 mg, 24 hr (CLARITIN-D 24 HOUR) 10-240 mg per tablet Take 1 tablet by mouth once daily. 0 02/13/2017 Active nortriptyline (PAMELOR) 25 mg capsule 0 09/11/2019 Active Active Problems No known active problems Family History Medical History Relation Name Comments Hypertension Mother Diabetes Paternal Grandmother Other Paternal Grandmother Glaucom a-blind Relation Name Status Comments Mother Paternal Grandmother Social History Tobacco Use Types Packs/Day Years Used Date Smoking Tobacco: Former Cigarettes Q uit: 12/07/2008 Smokeless Tobacco: Never Alcohol Use Standard Drinks/Week Comments Not Asked 0 (1 standard drink = 0.6 oz pur e alcohol) Sex and Gender Information Value Date Recorded Sex Assigned at Not on file Gender Identity Not on file Sexual Orientation Not on file Obstetrics History Last Filed Vital Signs Vital Sign Reading Time Taken Comments Blood Pressure 114/81 02/18/2017 1:29 PM CDT Pulse 78 02/18/2017 1:29 PM CDT Temperature 36.9 ??C (98.5 ??F) 05/23/2009 10:00 AM C DT Respiratory Rate 18 05/23/2009 4:30 PM CDT Oxygen Saturation 99% 05/23/2009 4:30 PM CDT Inhaled Oxygen Concentration - - Weight 68 kg (150 lb) 05/23/2009 10:00 AM CDT Height 157.5 cm (5' 2) 05/23/2009 10:00 AM CDT Body Mass Index 27.44 05/23/2009 10:00 AM CDT Plan of Treatment Health Maintenance Due Date Last Done Comments COVID-19 vaccine series (#1) 1959 Tdap 1970 Depression screening for age 12+ 1971 HIV for age 15-65 1974 BMI (ht and wt on same day) for age 18+ 1977 Hepatitis C screening for ag e 18-79 1977 Tetanus booster 1979 Pap test for age 21-65 1980 Colonoscopy through age 75 2004 Lipids for age 45-75 2004 Mammogram for age 45-75 2004 Zoster (shingles) series for age 50+ (1 of 2) 2009 Influenza for age 50-64 05/09/2023 Pneumococcal series for age 6-64 Aged Out No longer eligible based on patient's age to complete this topic Advance Directives Latest Code Status on File Code Status Date Activated Date Inactivated Comments Full Code 05/23/2009 10:06 AM 05/24/2009 2:39 AM Care Teams Laborer Operator Relationship Specialty Start Date End Date Adithya Patten MD PCP - General 05/21/09
--- OUTSIDE RECORDS SUMMARY | 2023-09-17 14:39 | XMS_ITS | Encounter Summary ---
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
--- OUTSIDE RECORDS SUMMARY | 2023-09-17 14:39 | XMS_ITS ---
Author Name Unknown Organization [facility] Address [address] [place] [address] Care Team Providers Care Earring Maker Name Role Phone Andrew Israel PA-C Primary Care Provider [phone] Transitional Care Management Status:Closed (Closed) Start date:03/27/2023 Enrollment date:03/27/2023 End date:04/10/2023 Close reason:Goals met Continued Care and Services Coordination
[2023-09-17 16:05] LABS: C.Difficile Negative (Negative); CDIFFEPI 027 PRESUMPTIVE NEGATIVE (Negative)
== END 2023-09-17 14:31 | disposition home or self-care (01) ==
LOC: NPINS 14:30
PROVIDERS: PCP Physician Assistant Medical
DX: K50.00 Crohn's disease of small intestine without complications (principal)
CPT/HCPCS: 87493

== ENCOUNTER 2023-10-01 13:23 | Outpatient (CLI) | payer BC, SELFPAY | END 2023-10-01 13:24 | disposition home or self-care (01) | PROVIDERS: PCP Physician Assistant Medical; Visit Provider Family Medicine | DX: K50.10 Crohn's disease of large intestine without complications (principal) | CPT/HCPCS: 80053; 86140 ==

== ENCOUNTER 2023-10-13 10:32 | Outpatient (CLI) | payer BC, SELFPAY ==
[2023-10-13 16:23] LABS: Vitamin B12* 997 pg/mL (243-894)
== END 2023-10-13 10:33 | disposition home or self-care (01) ==
PROVIDERS: PCP Physician Assistant Medical; Visit Provider Family Medicine
DX: D50.9 Iron deficiency anemia, unspecified (principal); E78.5 Hyperlipidemia, unspecified; I10 Essential (primary) hypertension
CPT/HCPCS: 80061; 82043; 82570; 82607

== ENCOUNTER 2023-10-20 07:40 | Outpatient (CLI) | payer BC, SELFPAY ==
--- OUTSIDE RECORDS SUMMARY | 2023-10-20 07:43 | XMS_ITS | Clinical Summary ---
Author Name Unknown Organization [facility] Address [address] [place] [id number] Care Team Providers Care Harbor Engineer Name Role Phone Andrew Israel PA-C Primary Care Provider [phone] Allergies Active Allergy Reactions Criticality Noted Date Comments Aspirin Nausea and Vomiting Medium 02/11/2023 Codeine Nausea and Vomiting 02/11/2023 Meperidine Nausea and Vomiting Medium 02/10/2023 N/V Latex Hives High 02/11/2023 Mold 02/11/2023 Oxycodone Anaphylaxis,Hives,Sw el ling High 02/10/2023 Throat swelling, per pt Pt tolerates [place]/Vicodin (06/22/2023) Penicillin G Anaphylaxis High 02/11/2023 Oxycodone-Acetaminoph [...] cough 0 Active bisacodyl (DULCOLAX) 10 MG suppositoryIndicatio ns:RLQ abdominal pain,Partial small bowel obstruction (H) Place 1 suppository (10 mg) rectally 2 times daily as needed for constipation 10 suppository 1 3 Active ondansetron (ZOFRAN ODT) 4 MG ODT tabIndications:IBD (inflammatory bowel disease),Nausea Take 1 tablet (4 mg) by mouth every 8 hours as needed for nausea 15 tablet 2 3 Active methocarbamol (ROBAXIN) 500 MG tabletIndications:RL Q abdominal pain,Partial small bowel obstruction (H),IBD (inflammatory bowel disease),Nausea Take 1 tablet (500 mg) by mouth 4 times daily as needed for muscle spasms 15 tablet 1 3 Active cyanocobalamin (CYANOCOBALAMIN) 1000 MCG/ML injection Inject 1,000 mcg as directed every 30 days 0 Active acetaminophen (TYLENOL) 500 MG tabletIndications:RL Q abdominal pain Take 1-2 tablets (500-1,000 mg) by mouth every 6 hours as needed for mild pain 0 3 Active cholecalciferol (VITAMIN D3) 10 mcg (400 units) TABS tablet Take 10 mcg by mouth daily 0 Active Bioflavonoid Products (VITAMIN C) CHEW Take 1 tablet by mouth daily 0 Active medical cannabis (Patient's own supply) Take 1 Dose by mouth See Admin Instructions (The purpose of this order is to document that the patient reports taking medical cannabis. This is not a prescription, and is not used to certify that the patient has a qualifying medical condition.) 25 MG EDIBLE 0 Active inFLIXimab (REMICADE IV)Indications:Gastr oenterologist has changed the frequency to every 6 weeks Inject 10 mg/kg into the vein once every eight weeks 0 Active dicyclomine (BENTYL) 20 MG tabletIndications:In tractable abdominal pain Take 1 tablet (20 mg) by mouth 4 times daily (before meals and nightly) 30 tablet 0 4 Active hydrOXYzine HCl (ATARAX) 25 MG tabletIndications:Ac comanche colitis,Crohn's disease with complication, unspecified gastrointestinal tract location (H),Abdominal pain, unspecified abdominal location Take 1 tablet (25 mg) by mouth every 6 hours as needed for other (adjuvant pain) 30 tablet 0 4 Active HYDROmorphone (DILAUDID) 2 MG tabletIndications:In tractable abdominal pain Take 1 tablet (2 mg) by mouth every 4 hours as needed for severe pain (IF pain not managed with non-pharmacologic al and non-opioid interventions) 12 tablet 0 4 Active simethicone (MYLICON) 80 MG chewable tabletIndications:In tractable abdominal pain Take 1 tablet (80 mg) by mouth every 6 hours as needed for cramping 30 tablet 0 4 Active diphenhydrAMINE (BENADRYL) 25 MG capsule Take 1 capsule (25 mg) by mouth every 6 hours as needed for itching or allergies 30 capsule 0 3 024 Discontin ued(Stop at Discharge ) HYDROcodone-acetamin ophen (NORCO) 5-325 MG tabletIndications:Ac comanche colitis,Crohn's disease with complication, unspecified gastrointestinal tract location (H),Abdominal pain, unspecified abdominal location Take 1-2 tablets by mouth every 6 hours as needed for severe pain (max acetaminophen (4 gram a day including tylenol)) 20 tablet 0 3 024 Discontin ued(Med Rec(No AVS / No eCancel)) hydrOXYzine (ATARAX) 25 MG tabletIndications:Ac comanche colitis,Crohn's disease with complication, unspecified gastrointestinal tract location (H),Abdominal pain, unspecified abdominal location Take 1 tablet (25 mg) by mouth every 6 hours as needed for other (adjuvant pain) 20 tablet 0 3 024 Discontin ued(Med Rec(No AVS / No eCancel)) dicyclomine (BENTYL) 10 MG capsule Take 10 mg by mouth 4 times daily (before meals and nightly) 0 024 Discontin ued(Stop at Discharge ) Active Problems Problem Noted Date Diagnosed Date History of Crohn's disease 09/22/2023 Intractable lower abdominal pain 09/22/2023 Diarrhea, unspecified type 09/22/2023 Acute colitis 06/16/2023 Dizziness 03/31/2023 Abnormal stools 03/31/2023 History of colon surgery 03/31/2023 Abdominal pain, unspecified abdominal location 0 03/31/2023 Intractable abdominal pain 03/19/2023 Crohn's disease of colon with complication 03/19 RLQ abdominal pain 02/10/2023 Encounters Date Type Department Care Team Description 09/22/2023 5:27 PM TRAVELING STOREKEEPER - 09/25/2023 1:15 PM TRAVELING STOREKEEPER Emergency [facility] Pediatric [address] [place] [address] Eddy Mackay MD Ancona, Brent A, DO Pappas Richter, Ellen, DO Dunbar, John Forrest, MD Intractable abdominal pain (Primary Dx); Intractable lower abdominal pain; Diarrhea, unspecified type; History of Crohn's disease; Acute colitis; Crohn's disease with complication, unspecified gastrointestinal tract location (H); Abdominal pain, unspecified abdominal location Discharge Disposition: Home or Self Care 09/22/2023 Travel 08/07/2023 4:15 PM TRAVELING STOREKEEPER - 08/07/2023 8:41 PM TRAVELING STOREKEEPER Emergency [facility] Emergency Dept [address] [place] [address] Car Paris MD Crohn's disease of colon without complication (H) Discharge Disposition: Home or Self Care 08/07/2023 Travel from Last 3 Months Immunizations Name Administration Dates Next Due COVID-19 MONOVALENT 12+ (Pfizer) 12/26/2020,03 Family History Medical History Relation Comments Colon [...] Sign Reading Time Taken Comments Blood Pressure 126/92 09/25/2023 8:18 AM TRAVELING STOREKEEPER Pulse 97 09/25/2023 8:18 AM TRAVELING STOREKEEPER Temperature 36.6 ??C (97.9 ??F) 09/25/2023 8:18 AM CS T Respiratory Rate 16 09/25/2023 8:18 AM TRAVELING STOREKEEPER Oxygen Saturation 98% 09/25/2023 8:18 AM TRAVELING STOREKEEPER Inhaled Oxygen Concentration - - Weight 70.5 kg (155 lb 8 oz) 09/23/2023 2:55 PM TRAVELING STOREKEEPER Height 160 cm (5' 3) 03/31/2023 10:48 PM CDT Body Mass Index 27.55 03/31/2023 10:48 PM CDT Plan of Treatment Health Maintenance Due [...] HEPATITIS C SCREENING 1977 PAP 1980 LIPID 1999 RSV VACCINE ( & 60+) (1 - 1-dose 60+ series) 2019 PHQ-2 (once per calendar year) 2023 ZOSTER IMMUNIZATION (2 of 2) 09/29/2023 08/04/2023 GLUCOSE 09/23/2026 09/23/2023, 09/08, 08/07/2023, Additional history exists DTAP/TDAP/TD IMMUNIZATION (3 - Td or Tdap) 01/03/2032 01/02/2022, 05/28/2011, 05/17/2004 COLONOSCOPY 06/20/2033 06/20/2023, 06/20/2023 COLORECTAL CANCER SCREENING 06/20/2033 COVID-19 Vaccine Completed 08/04/2023, , 12/05/2020 INFLUENZA VACCINE Completed 08/04/2023, , 07/03/2017, Additional [...] Procedure Name Priority Date/Time Associated Diagnosis Comments CRP INFLAMMATION Routine 09/25/2023 6:57 AM TRAVELING STOREKEEPER MR ENTEROGRAPHY W/O AND W CONTRAST Routine 09/23/2023 9:25 PM TRAVELING STOREKEEPER CBC WITH PLATELETS STAT 09/23/2023 8: 16 AM TRAVELING STOREKEEPER COMPREHENSIVE METABOLIC PANEL STAT 09/23/2023 8:[address] ABDOMEN PELVIS W CONTRAST STAT 09/22/2023 7:20 PM TRAVELING STOREKEEPER CBC WITH PLATELETS & DIFFERENTIAL STAT 09/22/2023 6:23 PM TRAVELING STOREKEEPER ERYTHROCYTE SEDIMENTATION RATE AUTO STAT 09/22/2023 6:23 PM TRAVELING STOREKEEPER CRP INFLAMMATION STAT 09/22/2023 6:23 PM TRAVELING STOREKEEPER CBC WITH PLATELETS AND DIFFERENTIAL STAT 09/22/2023 6:23 PM TRAVELING STOREKEEPER LACTIC ACID WHOLE BLOOD STAT 09/22/2023 6:23 PM TRAVELING STOREKEEPER COMPREHENSIVE METABOLIC PANEL STAT 09/22/2023 6:23 PM TRAVELING STOREKEEPER ROUTINE UA WITH MICROSCOPIC REFLEX TO CULTURE STAT 09/22/2023 6:[address] ABDOMEN PELVIS W CONTRAST STAT 08/07/2023 6:19 PM TRAVELING STOREKEEPER ROUTINE UA WITH MICROSCOPIC STAT 08/07/2023 5:26 PM TRAVELING STOREKEEPER CBC WITH PLATELETS & DIFFERENTIAL STAT 08/07/2023 3:05 PM TRAVELING STOREKEEPER CBC WITH PLATELETS AND DIFFERENTIAL STAT 08/07/2023 3:05 PM TRAVELING STOREKEEPER COMPREHENSIVE METABOLIC PANEL STAT 08/07/2023 3:05 PM TRAVELING STOREKEEPER from Last 3 Months Results * CRP inflammation (09/25/2023 6:57 AM TRAVELING STOREKEEPER) Only the most recent of2 resultswithin the time period is included. CRP Inflammation <3.00 <5.00 mg/L 09/25/19 7:39 AM TRAVELING STOREKEEPER LABORATORY Blood STRUCTURE OF LEFT UPPER LIMB / Unknown Venipuncture / Unknown 09/25/2023 6:57 AM TRAVELING STOREKEEPER 09/25/2023 7:10 AM TRAVELING STOREKEEPER Lukasz Weaver MD LAB - BLOOD ORDERABL ES [facility] Acute Care Lab [address] Lab (1st floor, no room number) [place] [address], [facility] [phone] * MR Enterography w/o & wContrast (09/23/2023 9:25 PM TRAVELING STOREKEEPER) Anatomical Region Laterality Modality Abdomen/Pelvis, SUBRAD MR BODY, UMP MR BODY, RAD MR Magnetic Resonance 09/23/2023 9:25 PM TRAVELING STOREKEEPER Impressions 09/23/2023 9:52 PM TRAVELING STOREKEEPER IMPRESSION: 1. ??Crohn disease status post ileocecectomy. No imaging signs of active inflammation. 2. ??No extraintestinal manifestations. Narrative 09/23/2023 9:52 PM TRAVELING STOREKEEPER EXAM: MRI ENTEROGRAPHY/MRI ABDOMEN AND MRI PELVIS WITHOUT AND WITH CONTRAST LOCATION: [facility] DATE: 09/23/2023 INDICATION: History of small bowel Crohn's COMPARISON: CT 09/22/2023 TECHNIQUE: Routine enterography protocol including imaging of abdomen and pelvis with axial T1 in/out phase, axial T2, coronal T2. Post contrast abdomen and pelvis axial and coronal thin-section T1 with fat sat. 1 mg Glucagon. Oral VoLumen. CONTRAST: 7mL Gadavist FINDINGS: ENTEROGRAPHY: Post surgical changes from ileocecectomy. No mural thickening, enhancement or stratification of the bowel wall. No strictures or dilatation. No stranding in the adjacent mesenteric fat or engorgement of the vasa recta. No fistulas, abscess, or obstruction. The stomach and colon are within normal limits. ADDITIONAL FINDINGS: No significant abnormality in the liver, spleen, left kidney, pancreas, and adrenal glands where visualized. The right kidney is absent. Cholecystectomy. No adenopathy. Normal pelvis. Procedure Note Tyler Dhillon MD - 09/23/2023 EXAM: MRI ENTEROGRAPHY/MRI ABDOMEN AND MRI PELVIS WITHOUT AND WITHCONTRAST LOCATION: [facility] DATE: 09/23/2023 INDICATION: History of small bowel Crohn's COMPARISON: CT 09/22/2023 TECHNIQUE: Routine enterography protocol including imaging of abdomen andpelvis with axial T1 in/out phase, axial T2, coronal T2. Post contrastabdomen and pelvis axial and coronal thin-section T1 with fat sat. 1 mgGlucagon. Oral VoLumen. CONTRAST: 7mL Gadavist FINDINGS: ENTEROGRAPHY: Post surgical changes from ileocecectomy. No muralthickening, enhancement or stratification of the bowel wall. No stricturesor dilatation. No stranding in the adjacent mesenteric fat or engorgementof the vasa recta. No fistulas, abscess, or obstruction. The stomach and colon are within normal limits. ADDITIONAL FINDINGS: No significant abnormality in the liver, spleen, leftkidney, pancreas, and adrenal glands where visualized. The right kidney isabsent. Cholecystectomy. No adenopathy. Normal pelvis. IMPRESSION: 1. Crohn disease status post ileocecectomy. No imaging signs of activeinflammation. 2. No extraintestinal manifestations. Apolinar Munoz MD [facility] MRI ORDERABLES * (ABNORMAL) Comprehensive metabolic panel (09/23/2023 8:16 AM TRAVELING STOREKEEPER) Only the most recent of3 resultswithin the time period is included. [facility] Sodium 139 135 - 145 mmol/L 09/23/2023 8:40 AM TRAVELING STOREKEEPER LABORATORY Comment:Reference intervals for this test were updated on 06/03/2023 to more accurately reflect our healthy population. There may be differences in the flagging of prior results with similar values performed with this method. Interpretation of those prior results can be made in the context of the updated reference intervals. Potassium 4.5 3.4 - 5.3 mmol/L 09/23/2023 8:40 AM [facility] Carbon Dioxide (CO2) 24 22 - 29 mmol/L 09/23/2023 8:40 AM [facility] Anion Gap 8 7 - 15 mmol/L 09/23/2023 8:40 AM [facility] Urea Nitrogen 7.1(L) 8.0 - 23.0 mg/dL 09/23/2023 8:40 AM [facility] Creatinine 0.85 0.51 - 0.95 mg/dL 09/23/2023 8:40 AM [facility] GFR Estimate 76 >60 mL/min/1. 73m2 09/23/2023 8:40 AM [facility] Calcium 8.6(L) 8.8 - 10.2 mg/dL 09/23/2023 8:40 AM [facility] Chloride 107 98 - 107 mmol/L 09/23/2023 8:40 AM [facility] Glucose 133(H) 70 - 99 mg/dL 09/23/2023 8:40 AM [facility] Alkaline Phosphatase 64 40 - 150 U/L 09/23/2023 8:40 AM [facility] Comment:Reference intervals for this test were updated on 07/22/2023 to more accurately reflect our healthy population. There may be differences in the flagging of prior results with similar values performed with this method. Interpretation of those prior results can be made in the context of the updated reference intervals. AST 16 0 - 45 U/L 09/23/2023 8:40 AM [facility] Comment:Reference intervals for this test were updated on 02/17/2023 to more accurately reflect our healthy population. There may be differences in the flagging of prior results with similar values performed with this method. Interpretation of those prior results can be made in the context of the updated reference intervals. ALT 11 0 - 50 U/L 09/23/2023 8:40 AM [facility] Comment:Reference intervals for this test were updated on 02/17/2023 to more accurately reflect our healthy population. There may be differences in the flagging of prior results with similar values performed with this method. Interpretation of those prior results can be made in the context of the updated reference intervals. Protein Total 6.0(L) 6.4 - 8.3 g/dL 09/23/2023 8:40 AM TRAVELING STOREKEEPER [facility] LABORATORY Albumin 3.9 3.5 - 5.2 g/dL 09/23/2023 8:40 AM TRAVELING STOREKEEPER [facility] Bilirubin Total 0.6 <=1.2 mg/dL 09/23/2023 8:40 AM TRAVELING STOREKEEPER [facility] LAB[facility] Blood STRUCTURE OF RIGHT UPPER LIMB / Unknown Venipuncture / Unknown 09/23/2023 8:16 AM TRAVELING STOREKEEPER 09/23/2023 8:21 AM TRAVELING STOREKEEPER Calin Pradhan DO LAB - BLOOD ORDERABL ES LABORATORY [facility] Acute Care Lab [address] Lab (1st floor, no room number) [place] [address], [facility] [phone] * CBC with platelets (09/23/2023 8:16 AM TRAVELING STOREKEEPER) Pathologist [facility] WBC Count 6.0 4.0 - 11.0 10e3/uL 09/23/2023 8:26 AM TRAVELING STOREKEEPER RH LABORATORY RBC Count 4.24 3.80 - 5.20 10e6/uL 09/23/2023 8:26 AM TRAVELING STOREKEEPER [facility] Hemoglobin 12.6 11.7 - 15.7 g/dL 09/23/2023 8:26 AM TRAVELING STOREKEEPER [facility] Hematocrit 38.4 35.0 - 47.0 % 09/23/2023 8:26 AM TRAVELING STOREKEEPER [facility] MCV 91 78 - 100 fL 09/23/2023 8:26 AM TRAVELING STOREKEEPER RH [facility]AT[facility] MCH 29.7 26.5 - 33.0 pg 09/23/2023 8:26 AM TRAVELING STOREKEEPER RH LAB[facility]AT[facility] MCHC 32.8 31.5 - 36.5 g/dL 09/23/2023 8:26 AM TRAVELING STOREKEEPER [facility] LAB[facility]AT[facility] RDW 14.3 10.0 - 15.0 % 09/23/2023 8:26 AM TRAVELING STOREKEEPER [facility] Platelet Count 191 150 - 450 10e3/uL 09/23/2023 8:26 AM TRAVELING STOREKEEPER [facility] Blood STRUCTURE OF RIGHT UPPER LIMB / Unknown Venipuncture / Unknown 09/23/2023 8:16 AM TRAVELING STOREKEEPER 09/23/2023 8:21 AM TRAVELING STOREKEEPER Calin A Carolynn DO LAB - BLOOD ORDERABL ES [facility] Acute Care Lab [address] Lab (1st floor, no room number) [place] [address], [facility] [phone] * Abd/pelvis CT, IV contrast only TRAUMA / AAA (09/22/2023 7:20 PM TRAVELING STOREKEEPER) Only the most recent of2 resultswithin the time period is included. Anatomical Region Laterality Modality Abdomen/Pelvis, SUBRAD CT TIFFANIE DY, UMP CT ABDOMEN PELVIS, RAD CT Computed Tomography 09/22/2023 7:20 PM TRAVELING STOREKEEPER Impressions 09/22/2023 7:43 PM TRAVELING STOREKEEPER IMPRESSION: 1. ??No acute findings in the abdomen or pelvis. Narrative 09/22/2023 7:43 PM TRAVELING STOREKEEPER EXAM: CT ABDOMEN PELVIS W CONTRAST LOCATION: [facility] DATE: 09/22/2023 INDICATION: Abdominal pain, hx of Crohns COMPARISON: 08/07/2023 TECHNIQUE: CT scan of the abdomen and pelvis was performed following injection of IV contrast. Multiplanar reformats were obtained. Dose reduction techniques were used. CONTRAST: 76mL Isovue 370 FINDINGS: LOWER CHEST: Normal. HEPATOBILIARY: Cholecystectomy. PANCREAS: Normal. SPLEEN: Normal size. ADRENAL GLANDS: Normal. KIDNEYS/BLADDER: Status post right nephrectomy. BOWEL: Status post ileocecectomy. No bowel obstruction or inflammatory change. LYMPH NODES: Normal. VASCULATURE: Unremarkable. PELVIC ORGANS: Hysterectomy MUSCULOSKELETAL: Unremarkable. Procedure Note Alex Miramontes MD - 09/22/2023 EXAM: CT ABDOMEN PELVIS W CONTRAST LOCATION: [facility] DATE: 09/22/2023 INDICATION: Abdominal pain, hx of Crohns COMPARISON: 08/07/2023 TECHNIQUE: CT scan of the abdomen and pelvis was performed followinginjection of IV contrast. Multiplanar reformats were obtained. Dosereduction techniques were used. CONTRAST: 76mL Isovue 370 FINDINGS: LOWER CHEST: Normal. HEPATOBILIARY: Cholecystectomy. PANCREAS: Normal. SPLEEN: Normal size. ADRENAL GLANDS: Normal. KIDNEYS/BLADDER: Status post right nephrectomy. BOWEL: Status post ileocecectomy. No bowel obstruction or inflammatorychange. LYMPH NODES: Normal. VASCULATURE: Unremarkable. PELVIC ORGANS: Hysterectomy MUSCULOSKELETAL: Unremarkable. IMPRESSION: 1. No acute findings in the abdomen or pelvis. Eddy Mackay MD IMG CT ORDERABLE S * CBC with platelets and differential (09/22/2023 6:23 PM TRAVELING STOREKEEPER) Only the most recent of2 resultswithin the time period is included. WBC Count 7.0 4.0 - 11.0 10e3/uL 09/22/2023 6:38 PM TRAVELING STOREKEEPER [facility] LAB[facility]AT[facility] RBC Count 4.44 3.80 - 5.20 10e6/uL 09/22/2023 6:38 PM TRAVELING STOREKEEPER [facility] Hemoglobin 13.4 11.7 - 15.7 g/dL 09/22/2023 6:38 PM TRAVELING STOREKEEPER [facility] LAB[facility]AT[facility] Hematocrit 40.7 35.0 - 47.0 % 09/22/2023 6:38 PM TRAVELING STOREKEEPER [facility] LAB[facility]ATORY MCV 92 78 - 100 fL 09/22/2023 6:38 PM TRAVELING STOREKEEPER [facility] LAB[facility]ATORY MCH 30.2 26.5 - 33.0 pg 09/22/2023 6:38 PM TRAVELING STOREKEEPER RH LABORATORY MCHC 32.9 31.5 - 36.5 g/dL 09/22/2023 6:38 PM TRAVELING STOREKEEPER [facility] LAB[facility] RDW 14.5 10.0 - 15.0 % 09/22/2023 6:38 PM TRAVELING STOREKEEPER [facility] Platelet Count 223 150 - 450 10e3/uL 09/22/2023 6:38 PM TRAVELING STOREKEEPER [facility] % Neutrophils 74 % 09/22/2023 6:38 PM TRAVELING STOREKEEPER [facility] % Lymphocytes 16 % 09/22/2023 6:38 PM TRAVELING STOREKEEPER [facility] LAB[facility]AT[facility] % Monocytes 7 % 09/22/2023 6:38 PM TRAVELING STOREKEEPER [facility] % Eosinophils 1 % 09/22/2023 6:38 PM TRAVELING STOREKEEPER [facility] % Basophils 1 % 09/22/2023 6:38 PM TRAVELING STOREKEEPER [facility] LAB[facility] % Immature Granulocytes 1 % 09/22/2023 6:38 PM TRAVELING STOREKEEPER RH LAB[facility]ATORY NRBCs per 100 WBC 0 <1 /100 024 6:38 PM TRAVELING STOREKEEPER [facility] LABORATORY Absolute Neutrophils 5.3 1.6 - 8.3 10e3/uL 09/22/2023 6:38 PM TRAVELING STOREKEEPER RH LABORATORY Absolute Lymphocytes 1.1 0.8 - 5.3 10e3/uL 09/22/2023 6:38 PM TRAVELING STOREKEEPER RH LABORATORY Absolute Monocytes 0.5 0.0 - 1.3 10e3/uL 09/22/2023 6:38 PM TRAVELING STOREKEEPER RH LAB[facility]AT[facility] Absolute Eosinophils 0.1 0.0 - 0.7 10e3/uL 09/22/2023 6:38 PM TRAVELING STOREKEEPER RH LABORATORY Absolute Basophils 0.0 0.0 - 0.2 10e3/uL 09/22/2023 6:38 PM TRAVELING STOREKEEPER RH LABORATORY Absolute Immature Granulocytes 0.1 <=0.4 10e3/uL 09/22/2023 6:38 PM TRAVELING STOREKEEPER RH LABORATORY Absolute NRBCs 0.0 10e3/uL 09/22/2023 6:38 PM TRAVELING STOREKEEPER [facility] LAB[facility]AT[facility] Blood BLOOD SPECIMEN / Unknown Venipuncture / Unknown 09/22/2023 6:23 PM TRAVELING STOREKEEPER 09/22/2023 6:32 PM TRAVELING STOREKEEPER Eddy Mackay MD LAB - BLOOD [facility] [address] [employer] Lab (1st floor, no room number) [place] [address], [facility] [phone] * Lactic acid whole blood (09/22/2023 6:23 PM TRAVELING STOREKEEPER) [facility] Lactic Acid 1.5 0.7 - 2.0 mmol/L 09/22/2023 6:35 PM TRAVELING STOREKEEPER LABORATORY Blood BLOOD SPECIMEN / Unknown Venipuncture / Unknown 09/22/2023 6:23 PM TRAVELING STOREKEEPER 09/22/2023 6:33 PM TRAVELING STOREKEEPER Eddy Makcay MD LAB - BLOOD [facility] Acute Care Lab [address] Lab (1st floor, no room number) [place] [address], [facility] [phone] * Erythrocyte sedimentation rate auto (09/22/2023 6:23 PM TRAVELING STOREKEEPER) Erythrocyte Sedimentation Rate 6 0 - 30 mm/hr 09/22/2023 9:40 PM TRAVELING STOREKEEPER LABORATORY Blood BLOOD SPECIMEN / Unknown Venipuncture / Unknown 09/22/2023 6:23 PM TRAVELING STOREKEEPER 09/22/2023 6:32 PM TRAVELING STOREKEEPER Eddy Mackay MD LAB - BLOOD [facility] LABORATORY [facility] Lab [address] [facility] Lab (1st floor, no room number) [place] [address], [facility] [phone] * (ABNORMAL) UA with Microscopic reflex to Culture (09/22/2023 6:01 PM TRAVELING STOREKEEPER) Color Urine Straw Colorless, Straw, Light Yellow, Yellow 09/22/2023 6:11 PM TRAVELING STOREKEEPER LABORATORY Appearance Urine Clear Clear 09/22/19 24 6:11 PM TRAVELING STOREKEEPER LABORATORY Glucose Urine Negative Negative mg/dL 09/22/2023 6:11 PM TRAVELING STOREKEEPER LABORATORY Bilirubin Urine Negative Negative 6:11 PM TRAVELING STOREKEEPER LABORATORY Ketones Urine Negative Negative mg/dL 09/22/2023 6:11 PM TRAVELING STOREKEEPER LABORATORY Specific [place] Urine 1.005 1.003 - 1.035 09/22/2023 6:11 PM TRAVELING STOREKEEPER LABORATORY Blood Urine Negative Negative 09/22/2023 6:11 PM TRAVELING STOREKEEPER LABORATORY pH Urine 5.0 5.0 - 7.0 09/22/2023 6:11 PM TRAVELING STOREKEEPER LABORATORY Protein Albumin Urine Negative Negative mg/dL 09/22/2023 6:11 PM TRAVELING STOREKEEPER LABORATORY Urobilinogen Urine Normal Normal, 2.0 mg/dL 09/22/2023 6:11 PM TRAVELING STOREKEEPER LABORATORY Nitrite Urine Negative Negative 09/22/2023 6:11 PM TRAVELING STOREKEEPER LABORATORY Leukocyte Esterase Urine Negative Negative 09/22/2023 6:11 PM [facility] Bacteria Urine Few(A) None Seen /HPF 09/22/2023 6:11 PM TRAVELING STOREKEEPER LABORATORY RBC Urine <1 <=2 /HPF 09/22/2023 6:11 PM TRAVELING STOREKEEPER LABORATORY WBC Urine <1 <=5 /HPF 09/22/2023 6:11 PM TRAVELING STOREKEEPER LABORATORY Urine URINE SPECIMEN OBTAINED BY CLEAN CATCH PROCEDURE / Unknown Non-blood Collection / Unknown 09/22/2023 6:01 PM TRAVELING STOREKEEPER 09/22/2023 6:06 PM TRAVELING STOREKEEPER Narrative LABORATORY - 09/22/2023 6:11 PM TRAVELING STOREKEEPER Urine Culture not indicated Eddy Mackay MD LAB - URINE [facility] LABORATORY [facility] Lab [address] [facility] Lab (1st floor, no room number) [place] [address], [facility] [phone] * (ABNORMAL) UA with Microscopic (08/07/2023 5:26 PM TRAVELING STOREKEEPER) Color Urine Light Yellow Colorless, Straw, Light Yellow, Yellow 08/07/2023 5:42 PM TRAVELING STOREKEEPER LABORATORY Appearance Urine Clear Clear 08/07/20 5:42 PM TRAVELING STOREKEEPER LABORATORY Glucose Urine Negative Negative mg/dL 08/07/2023 5:42 PM TRAVELING STOREKEEPER LABORATORY Bilirubin Urine Negative Negative 5:42 PM TRAVELING STOREKEEPER LABORATORY Ketones Urine Negative Negative mg/dL 08/07/2023 5:42 PM TRAVELING STOREKEEPER LABORATORY Specific [place] Urine 1.006 1.003 - 1.035 08/07/2023 5:42 PM [facility] Blood Urine Negative Negative 08/07/2023 5:42 PM [facility] pH Urine 5.0 5.0 - 7.0 08/07/2023 5:42 PM [facility] Protein Albumin Urine Negative Negative mg/dL 08/07/2023 5:42 PM [facility] Urobilinogen Urine Normal Normal, 2.0 mg/dL 08/07/2023 5:42 PM [facility] Nitrite Urine Negative Negative 08/07/2023 5:42 PM [facility] Leukocyte Esterase Urine Negative Negative 08/07/2023 5:42 PM [facility] Mucus Urine Present(A) None Seen /LPF 08/07/2023 5:42 PM [facility] RBC Urine <1 <=2 /HPF 08/07/2023 5:42 PM [facility] WBC Urine <1 <=5 /HPF 08/07/2023 5:42 PM [facility] Urine MID-STREAM URINE SPECIMEN / Unknown Non-blood Collection / Unknown 08/07/2023 5:26 PM TRAVELING STOREKEEPER 08/07/2023 5:30 PM TRA[facility]ELING STOREKEEPER Car Paris MD LAB - URINE ORDER NATAL[facility]A [facility] Acute Care Lab [address] Lab (1st floor, no room number) [place] [address], [facility] [phone] from Last 3 Months Advance Directives For more information, please contact: [phone] Latest Code Status on File Code Status Date Activated Date Inactivated Comments Full Code 09/22/2023 10:47 PM 09/25/2023 3:43 PM All basic and advanced life-sustaining interventions [...] with patient/ legal decision maker Full Code 03/31/2023 10:48 PM 04/02/2023 3:29 [...] with patient/ legal decision maker Care Teams Harbor Engineer Relationship Specialty Start Date End Date Andrew Israel PA-C [place] [address] [place] [address] PCP - General 05/15/23
--- OUTSIDE RECORDS SUMMARY | 2023-10-20 07:44 | XMS_ITS | Referral Summary ---
Author Name Unknown Organization [facility] Address [address] [place] [address] Care Team Providers Care Marriage And Family Counselor Name Role Phone Andrew Israel PA-C Primary Care Provider [phone] Encounters Date Type Department Care Team Description 09/22/2023 5:27 PM MECHANICAL ESTIMATOR - 09/25/2023 1:15 PM MECHANICAL ESTIMATOR Emergency [facility] Pediatric [address] [place] [address] Eddy Mackay MD Ancona, Brent A, DO Pappas Richter, Ellen, DO Dunbar, John Forrest, MD Intractable abdominal pain (Primary Dx); Intractable lower abdominal pain; Diarrhea, unspecified type; History of Crohn's disease; Acute colitis; Crohn's disease with complication, unspecified gastrointestinal tract location (H); Abdominal pain, unspecified abdominal location Discharge Disposition: Home or Self Care 09/22/2023 Travel 08/07/2023 Travel 08/07/2023 4:15 PM MECHANICAL ESTIMATOR - 08/07/2023 8:41 PM MECHANICAL ESTIMATOR Emergency [facility] Emergency Dept [address] [place] [address] Car Paris MD Crohn's disease of colon without complication (H) Discharge Disposition: Home or Self Care from Last 3 Months Allergies Active Allergy Reactions Criticality Noted Date Comments Aspirin Nausea and Vomiting Medium 02/11/2023 Codeine Nausea and Vomiting 02/11/2023 Meperidine Nausea and Vomiting Medium 02/10/2023 N/V Latex Hives High 02/11/2023 Mold 02/11/2023 Oxycodone Anaphylaxis,Hives,Sw el ling High 02/10/2023 Throat swelling, per pt Pt tolerates Spring/Vicodin (06/22/2023) Penicillin G Anaphylaxis High 02/11/2023 Oxycodone-Acetaminoph [...] Active hydrOXYzine HCl (ATARAX) 25 MG tabletIndications:Ac [place] colitis,Crohn's disease with complication, unspecified gastrointestinal tract [...] ) HYDROcodone-acetamin ophen (NORCO) 5-325 MG tabletIndications:Ac [place] colitis,Crohn's disease with complication, unspecified gastrointestinal tract location (H),Abdominal pain, unspecified abdominal location Take 1-2 tablets by mouth every 6 hours as needed for severe pain (max acetaminophen (4 gram a day including tylenol)) 20 tablet 0 3 024 Discontin ued(Med Rec(No AVS / No eCancel)) hydrOXYzine (ATARAX) 25 MG tabletIndications:Ac [place] colitis,Crohn's disease with complication, unspecified gastrointestinal tract [...] Comments Blood Pressure 126/92 09/25/2023 8:18 AM MECHANICAL ESTIMATOR Pulse 97 09/25/2023 8:18 AM MECHANICAL ESTIMATOR Temperature 36.6 ??C (97.9 ??F) 09/25/2023 8:18 AM CS T Respiratory Rate 16 09/25/2023 8:18 AM MECHANICAL ESTIMATOR Oxygen Saturation 98% 09/25/2023 8:18 AM MECHANICAL ESTIMATOR Inhaled Oxygen Concentration - - Weight 70.5 kg (155 lb 8 oz) 09/23/2023 2:55 PM MECHANICAL ESTIMATOR Height 160 cm (5' 3) 03/31/2023 10:48 PM CDT Body Mass Index 27.55 03/31/2023 10:48 PM CDT Plan of Treatment Not on file Procedures Procedure Name Priority Date/Time Associated Diagnosis Comments CRP INFLAMMATION Routine 09/25/2023 6:57 AM MECHANICAL ESTIMATOR MR ENTEROGRAPHY W/O AND W CONTRAST Routine 09/23/2023 9:25 PM MECHANICAL ESTIMATOR CBC WITH PLATELETS STAT 09/23/2023 8: 16 AM MECHANICAL ESTIMATOR COMPREHENSIVE METABOLIC PANEL STAT 09/23/2023 8:[address] ABDOMEN PELVIS W CONTRAST STAT 09/22/2023 7:20 PM MECHANICAL ESTIMATOR CBC WITH PLATELETS & DIFFERENTIAL STAT 09/22/2023 6:23 PM MECHANICAL ESTIMATOR ERYTHROCYTE SEDIMENTATION RATE AUTO STAT 09/22/2023 6:23 PM MECHANICAL ESTIMATOR CRP INFLAMMATION STAT 09/22/2023 6:23 PM MECHANICAL ESTIMATOR CBC WITH PLATELETS AND DIFFERENTIAL STAT 09/22/2023 6:23 PM MECHANICAL ESTIMATOR LACTIC ACID WHOLE BLOOD STAT 09/22/2023 6:23 PM MECHANICAL ESTIMATOR COMPREHENSIVE METABOLIC PANEL STAT 09/22/2023 6:23 PM MECHANICAL ESTIMATOR ROUTINE UA WITH MICROSCOPIC REFLEX TO CULTURE STAT 09/22/2023 6:[address] ABDOMEN PELVIS W CONTRAST STAT 08/07/2023 6:19 PM MECHANICAL ESTIMATOR ROUTINE UA WITH MICROSCOPIC STAT 08/07/2023 5:26 PM MECHANICAL ESTIMATOR CBC WITH PLATELETS & DIFFERENTIAL STAT 08/07/2023 3:05 PM MECHANICAL ESTIMATOR CBC WITH PLATELETS AND DIFFERENTIAL STAT 08/07/2023 3:05 PM MECHANICAL ESTIMATOR COMPREHENSIVE METABOLIC PANEL STAT 08/07/2023 3:05 PM MECHANICAL ESTIMATOR from Last 3 Months Results * CRP inflammation (09/25/2023 6:57 AM MECHANICAL ESTIMATOR) Only the most recent of2 resultswithin the time period is included. CRP Inflammation <3.00 <5.00 mg/L 09/25/19 7:39 AM [facility] Blood STRUCTURE OF LEFT UPPER LIMB / Unknown Venipuncture / Unknown 09/25/2023 6:57 AM MECHANICAL ESTIMATOR 09/25/2023 7:10 AM MECHANICAL ESTIMATOR Lukasz Weaver MD LAB - BLOOD ORDERABL ES [facility] Acute Care Lab [address] [facility] Lab (1st floor, no room number) [place] [address], [facility] [phone] * MR Enterography w/o & wContrast (09/23/2023 9:25 PM MECHANICAL ESTIMATOR) Anatomical Region Laterality Modality Abdomen/Pelvis, SUBRAD MR BODY, UMP MR BODY, RAD MR Magnetic Resonance 09/23/2023 9:25 PM MECHANICAL ESTIMATOR Impressions 09/23/2023 9:52 PM MECHANICAL ESTIMATOR IMPRESSION: 1. ??Crohn disease status post ileocecectomy. No imaging signs of active inflammation. 2. ??No extraintestinal manifestations. Narrative 09/23/2023 9:52 PM MECHANICAL ESTIMATOR EXAM: MRI ENTEROGRAPHY/MRI ABDOMEN AND MRI PELVIS [...] 2. No extraintestinal manifestations. Apolinar Munoz [place] [facility] [place] * (ABNORMAL) Comprehensive metabolic panel (09/23/2023 8:16 AM MECHANICAL ESTIMATOR) Only the most recent of3 resultswithin the time period is included. Sodium 139 135 - 145 mmol/L 09/23/2023 8:40 AM [facility] Comment:Reference intervals for this test were updated on 06/03/2023 to more accurately reflect our healthy population. There may be differences in the flagging of prior results with similar values performed with this method. Interpretation of those prior results can be made in the context of the updated reference intervals. Potassium 4.5 3.4 - 5.3 mmol/L 09/23/2023 8:40 AM [facility] Carbon Dioxide (CO2) 24 22 - 29 mmol/L 09/23/2023 8:40 AM [facility] Anion Gap 8 7 - 15 mmol/L 09/23/2023 8:40 AM [facility] Urea Nitrogen 7.1(L) 8.0 - 23.0 mg/dL 09/23/2023 8:40 AM [facility] Creatinine 0.85 0.51 - 0.95 mg/dL 09/23/2023 8:40 AM [facility] GFR Estimate 76 >60 mL/min/1. 73m2 09/23/2023 8:40 AM [facility] Calcium 8.6(L) 8.8 - 10.2 mg/dL 09/23/2023 8:40 AM [facility] Chloride 107 98 - 107 mmol/L 09/23/2023 8:40 AM [facility] Glucose 133(H) 70 - 99 mg/dL 09/23/2023 8:40 AM [facility] Alkaline Phosphatase 64 40 - 150 U/L 09/23/2023 8:40 AM [facility] Comment:Reference intervals for this test were updated on 07/22/2023 to more accurately reflect our healthy population. There may be differences in the flagging of prior results with similar values performed with this method. Interpretation of those prior results can be made in the context of the updated reference intervals. AST 16 0 - 45 U/L 09/23/2023 8:40 AM [facility] Comment:Reference intervals for this test were updated on 02/17/2023 to more accurately reflect our healthy population. There may be differences in the flagging of prior results with similar values performed with this method. Interpretation of those prior results can be made in the context of the updated reference intervals. ALT 11 0 - 50 U/L 09/23/2023 8:40 AM [facility] Comment:Reference intervals for this test were updated on 02/17/2023 to more accurately reflect our healthy population. There may be differences in the flagging of prior results with similar values performed with this method. Interpretation of those prior results can be made in the context of the updated reference intervals. Protein Total 6.0(L) 6.4 - 8.3 g/dL 09/23/2023 8:40 AM MECHANICAL ESTIMATOR [facility] Albumin 3.9 3.5 - 5.2 g/dL 09/23/2023 8:40 AM MECHANICAL ESTIMATOR [facility] Bilirubin Total 0.6 <=1.2 mg/dL 09/23/2023 8:40 AM MECHANICAL ESTIMATOR [facility] Blood STRUCTURE OF RIGHT UPPER LIMB / Unknown Venipuncture / Unknown 09/23/2023 8:16 AM MECHANICAL ESTIMATOR 09/23/2023 8:21 AM MECHANICAL ESTIMATOR Calin Salina Pradhan DO LAB - BLOOD ORDERABL ES [facility] Acute Care Lab [address] [facility] Lab (1st floor, no room number) [place] [address], [facility] [phone] * CBC with platelets (09/23/2023 8:16 AM MECHANICAL ESTIMATOR) WBC Count 6.0 4.0 - 11.0 10e3/uL 09/23/2023 8:26 AM MECHANICAL ESTIMATOR [facility] RBC Count 4.24 3.80 - 5.20 10e6/uL 09/23/2023 8:26 AM MECHANICAL ESTIMATOR [facility] Hemoglobin 12.6 11.7 - 15.7 g/dL 09/23/2023 8:26 AM MECHANICAL ESTIMATOR [facility] Hematocrit 38.4 35.0 - 47.0 % 09/23/2023 8:26 AM MECHANICAL ESTIMATOR [facility] MCV 91 78 - 100 fL 09/23/2023 8:26 AM MECHANICAL ESTIMATOR [facility] MCH 29.7 26.5 - 33.0 pg 09/23/2023 8:26 AM MECHANICAL ESTIMATOR [facility] MCHC 32.8 31.5 - 36.5 g/dL 09/23/2023 8:26 AM MECHANICAL ESTIMATOR [facility] RDW 14.3 10.0 - 15.0 % 09/23/2023 8:26 AM MECHANICAL ESTIMATOR [facility] Platelet Count 191 150 - 450 10e3/uL 09/23/2023 8:26 AM MECHANICAL ESTIMATOR LAB[facility]ORY Blood STRUCTURE OF RIGHT UPPER LIMB / Unknown Venipuncture / Unknown 09/23/2023 8:16 AM MECHANICAL ESTIMATOR 09/23/2023 8:21 AM MECHANICAL ESTIMATOR Calin A Carolynn DO LAB - BLOOD ORDERABL ES LABORATORY [facility] Acute Care Lab [address] Lab (1st floor, no room number) [place] [address], [facility] [phone] * Abd/pelvis CT, IV contrast only TRAUMA / AAA (09/22/2023 7:20 PM MECHANICAL ESTIMATOR) Only the most recent of2 resultswithin the time period is included. Anatomical Region Laterality Modality Abdomen/Pelvis, SUBRAD CT TIFFANIE DY, UMP CT ABDOMEN PELVIS, RAD CT Computed Tomography 09/22/2023 7:20 PM MECHANICAL ESTIMATOR Impressions 09/22/2023 7:43 PM MECHANICAL ESTIMATOR IMPRESSION: 1. ??No acute findings in the abdomen or pelvis. Narrative 09/22/2023 7:43 PM MECHANICAL ESTIMATOR EXAM: CT ABDOMEN PELVIS W CONTRAST LOCATION: [...] with platelets and differential (09/22/2023 6:23 PM MECHANICAL ESTIMATOR) Only the most recent of2 resultswithin the time period is included. WBC Count 7.0 4.0 - 11.0 10e3/uL 09/22/2023 6:38 PM MECHANICAL ESTIMATOR [facility] RBC Count 4.44 3.80 - 5.20 10e6/uL 09/22/2023 6:38 PM MECHANICAL ESTIMATOR [facility] Hemoglobin 13.4 11.7 - 15.7 g/dL 09/22/2023 6:38 PM MECHANICAL ESTIMATOR [facility] Hematocrit 40.7 35.0 - 47.0 % 09/22/2023 6:38 PM MECHANICAL ESTIMATOR [facility] MCV 92 78 - 100 fL 09/22/2023 6:38 PM MECHANICAL ESTIMATOR [facility] MCH 30.2 26.5 - 33.0 pg 09/22/2023 6:38 PM MECHANICAL ESTIMATOR [facility] MCHC 32.9 31.5 - 36.5 g/dL 09/22/2023 6:38 PM MECHANICAL ESTIMATOR [facility] RDW 14.5 10.0 - 15.0 % 09/22/2023 6:38 PM MECHANICAL ESTIMATOR [facility] Platelet Count 223 150 - 450 10e3/uL 09/22/2023 6:38 PM MECHANICAL ESTIMATOR [facility] % Neutrophils 74 % 09/22/2023 6:38 PM MECHANICAL ESTIMATOR [facility] % Lymphocytes 16 % 09/22/2023 6:38 PM MECHANICAL ESTIMATOR [facility] % Monocytes 7 % 09/22/2023 6:38 PM MECHANICAL ESTIMATOR [facility] % Eosinophils 1 % 09/22/2023 6:38 PM MECHANICAL ESTIMATOR [facility] % Basophils 1 % 09/22/2023 6:38 PM MECHANICAL ESTIMATOR [facility] % Immature Granulocytes 1 % 09/22/2023 6:38 PM MECHANICAL ESTIMATOR [facility] NRBCs per 100 WBC 0 <1 /100 024 6:38 PM MECHANICAL ESTIMATOR [facility] Absolute Neutrophils 5.3 1.6 - 8.3 10e3/uL 09/22/2023 6:38 PM MECHANICAL ESTIMATOR [facility] Absolute Lymphocytes 1.1 0.8 - 5.3 10e3/uL 09/22/2023 6:38 PM MECHANICAL ESTIMATOR [facility] Absolute Monocytes 0.5 0.0 - 1.3 10e3/uL 09/22/2023 6:38 PM MECHANICAL ESTIMATOR [facility] Absolute Eosinophils 0.1 0.0 - 0.7 10e3/uL 09/22/2023 6:38 PM MECHANICAL ESTIMATOR [facility] Absolute Basophils 0.0 0.0 - 0.2 10e3/uL 09/22/2023 6:38 PM MECHANICAL ESTIMATOR [facility] Absolute Immature Granulocytes 0.1 <=0.4 10e3/uL 09/22/2023 6:38 PM MECHANICAL ESTIMATOR [facility] Absolute NRBCs 0.0 10e3/uL 09/22/2023 6:38 PM MECHANICAL ESTIMATOR LABORATORY Blood BLOOD SPECIMEN / Unknown Venipuncture / Unknown 09/22/2023 6:23 PM MECHANICAL ESTIMATOR 09/22/2023 6:32 PM MECHANICAL ESTIMATOR Eddy Mackay MD LAB - BLOOD R[place] SINGH [facility] Acute Care Lab [address] Lab (1st floor, no room number) [place] [address], [facility] [phone] * Lactic acid whole blood (09/22/2023 6:23 PM MECHANICAL ESTIMATOR) Lactic Acid 1.5 0.7 - 2.0 mmol/L 09/22/2023 6:35 PM MECHANICAL ESTIMATOR LABORATORY Blood BLOOD SPECIMEN / Unknown Venipuncture / Unknown 09/22/2023 6:23 PM MECHANICAL ESTIMATOR 09/22/2023 6:33 PM MECHANICAL ESTIMATOR Eddy Mackay MD LAB - BLOOD [place] S[place] [facility] Acute Care Lab [address] Lab (1st floor, no room number) [place] [address], [facility] [phone] * Erythrocyte sedimentation rate auto (09/22/2023 6:23 PM MECHANICAL ESTIMATOR) Erythrocyte Sedimentation Rate 6 0 - 30 mm/hr 09/22/2023 9:40 PM MECHANICAL ESTIMATOR LABORATORY Blood BLOOD SPECIMEN / Unknown Venipuncture / Unknown 09/22/2023 6:23 PM MECHANICAL ESTIMATOR 09/22/2023 6:32 PM MECHANICAL ESTIMATOR Eddy Mackay MD LAB - BLOOD [place] S[place] Acute Care Lab [address] Lab (1st floor, no room number) [place] [address], [facility] [phone] * (ABNORMAL) UA with Microscopic reflex to Culture (09/22/2023 6:01 PM MECHANICAL ESTIMATOR) Color Urine Straw Colorless, Straw, Light Yellow, Yellow 09/22/2023 6:11 PM MECHANICAL ESTIMATOR LABORATORY Appearance Urine Clear Clear 09/22/19 24 6:11 PM MECHANICAL ESTIMATOR LABORATORY Glucose Urine Negative Negative mg/dL 09/22/2023 6:11 PM MECHANICAL ESTIMATOR LABORATORY Bilirubin Urine Negative Negative 6:11 PM MECHANICAL ESTIMATOR LABORATORY Ketones Urine Negative Negative mg/dL 09/22/2023 6:11 PM MECHANICAL ESTIMATOR LABORATORY Specific [place] Urine 1.005 1.003 - 1.035 09/22/2023 6:11 PM MECHANICAL ESTIMATOR LABORATORY Blood Urine Negative Negative 09/22/2023 6:11 PM MECHANICAL ESTIMATOR LABORATORY pH Urine 5.0 5.0 - 7.0 09/22/2023 6:11 PM MECHANICAL ESTIMATOR LABORATORY Protein Albumin Urine Negative Negative mg/dL 09/22/2023 6:11 PM MECHANICAL ESTIMATOR LABORATORY Urobilinogen Urine Normal Normal, 2.0 mg/dL 09/22/2023 6:11 PM MECHANICAL ESTIMATOR LABORATORY Nitrite Urine Negative Negative 09/22/2023 6:11 PM MECHANICAL ESTIMATOR LABORATORY Leukocyte Esterase Urine Negative Negative 09/22/2023 6:11 PM MECHANICAL ESTIMATOR LABORATORY Bacteria Urine Few(A) None Seen /HPF 09/22/2023 6:11 PM MECHANICAL ESTIMATOR [facility] RBC Urine <1 <=2 /HPF 09/22/2023 6:11 PM MECHANICAL ESTIMATOR [facility] WBC Urine <1 <=5 /HPF 09/22/2023 6:11 PM MECHANICAL ESTIMATOR LABORATORY Urine URINE SPECIMEN OBTAINED BY CLEAN CATCH PROCEDURE / Unknown Non-blood Collection / Unknown 09/22/2023 6:01 PM MECHANICAL ESTIMATOR 09/22/2023 6:06 PM MECHANICAL ESTIMATOR Narrative [facility] - 09/22/2023 6:11 PM MECHANICAL ESTIMATOR Urine Culture not indicated Eddy Mackay MD LAB - URINE [facility] [facility]H LABORAT[facility] Acute Care Lab [address] [facility] Lab (1st floor, no room number) [place] [address], [facility] [phone] * (ABNORMAL) UA with Microscopic (08/07/2023 5:26 PM MECHANICAL ESTIMATOR) Color Urine Light Yellow Colorless, Straw, Light Yellow, Yellow 08/07/2023 5:42 PM MECHANICAL ESTIMATOR LABORATORY Appearance Urine Clear Clear 08/07/20 5:42 PM MECHANICAL ESTIMATOR LABORATORY Glucose Urine Negative Negative mg/dL 08/07/2023 5:42 PM MECHANICAL ESTIMATOR LABORATORY Bilirubin Urine Negative Negative 5:42 PM MECHANICAL ESTIMATOR LABORATORY Ketones Urine Negative Negative mg/dL 08/07/2023 5:42 PM MECHANICAL ESTIMATOR LABORATORY Specific [place] Urine 1.006 1.003 - 1.035 08/07/2023 5:42 PM MECHANICAL ESTIMATOR LABORATORY Blood Urine Negative Negative 08/07/2023 5:42 PM MECHANICAL ESTIMATOR LABORATORY pH Urine 5.0 5.0 - 7.0 08/07/2023 5:42 PM MECHANICAL ESTIMATOR LABORATORY Protein Albumin Urine Negative Negative mg/dL 08/07/2023 5:42 PM MECHANICAL ESTIMATOR LABORATORY Urobilinogen Urine Normal Normal, 2.0 mg/dL 08/07/2023 5:42 PM MECHANICAL ESTIMATOR LABORATORY Nitrite Urine Negative Negative 08/07/2023 5:42 PM MECHANICAL ESTIMATOR LABORATORY Leukocyte Esterase Urine Negative Negative 08/07/2023 5:42 PM MECHANICAL ESTIMATOR [facility] Mucus Urine Present(A) None Seen /LPF 08/07/2023 5:42 PM MECHANICAL ESTIMATOR [facility] RBC Urine <1 <=2 /HPF 08/07/2023 5:42 PM MECHANICAL ESTIMATOR [facility] WBC Urine <1 <=5 /HPF 08/07/2023 5:42 PM MECHANICAL ESTIMATOR [facility] Urine MID-STREAM URINE SPECIMEN / Unknown Non-blood Collection / Unknown 08/07/2023 5:26 PM MECHANICAL ESTIMATOR 08/07/2023 5:30 PM MECHANICAL ESTIMATOR Car Paris MD LAB - URINE ORDER NATALIIA [facility] Acute Care Lab [address] Lab (1st floor, no room number) [place] [address], [facility] [phone] from Last 3 Months Advance Directives For more information, please contact: [phone] Latest Code Status on File Code Status [...] with patient/ legal decision maker Care Teams Marriage And Family Counselor Relationship Specialty Start Date End Date Andrew Israel PA-C [facility] [address] [place] [address] PCP - General 05/15/23
--- OUTSIDE RECORDS SUMMARY | 2023-10-20 07:44 | XMS_ITS | Encounter Summary ---
Author Name Unknown Organization [facility] Address [address] [place] [address] Care Team Providers Care Outdoor Adventure Guides Name Role Phone Andrew Israel PA-C Primary Care Provider [phone] Encounter Details Date Type Department Care Team [...] as of this encounter Plan of Treatment Not on file documented as of this encounter Visit Diagnoses Not on filedocumented in this encounter Care Teams Outdoor Adventure Guides Relationship Specialty Start Date End Date Andrew Israel PA-C [place] [address] [place] [address] PCP - General 05/15/23 documented as of this encounter
--- OUTSIDE RECORDS SUMMARY | 2023-10-20 07:44 | XMS_ITS | Encounter Summary ---
Author Name Unknown Organization [facility] Address [address] [place] [id number] Care Team Providers Care Pigs Feet Finisher Name Role Phone Andrew Israel PA-C Primary Care Provider [phone] Reason for Visit * Reason Comments Abdominal Pain * Auth/Cert (Routine) Specialty Diagnoses / Procedures Referred By Contac t Referred To Contact Pediatrics Diagnoses History of Crohn's disease Intractable lower abdominal pain Diarrhea, unspecified type Intractable lower abdominal pain Diarrhea, unspecified type History of Crohn's disease Pediatrics [address] [place] [address] Referral ID Status Reason Start Date Expiration Date Visits Re quested Visits Authorized [id number] 1 1 Encounter Details Date Type Department Care Team (Late st Contact Info) Description 09/22/2023 5:27 PM STEEL POST INSTALLER - 09/25/2023 1:15 PM STEEL POST INSTALLER Emergency [facility] [address] [place] [address] Eddy Mackay MD [facility] [address] [place], [place] [address] Calin Pradhan DO [address] [place] [id number] Radha Sommers DO [facility] [address] [place] [id number] Car Paris MD [facility] [address] [facility] [address] [facility] [address] [place] [phone] Intractable abdominal pain (Primary Dx); Intractable lower abdominal pain; Diarrhea, unspecified type; History of Crohn's disease; Acute colitis; Crohn's disease with complication, unspecified gastrointestinal tract location (H); Abdominal pain, unspecified abdominal location Discharge Disposition: Home or Self Care Social [...] Comments Blood Pressure 126/92 09/25/2023 8:18 AM STEEL POST INSTALLER Pulse 97 09/25/2023 8:18 AM STEEL POST INSTALLER Temperature 36.6 ??C (97.9 ??F) 09/25/2023 8:18 AM CS T Respiratory Rate 16 09/25/2023 8:18 AM STEEL POST INSTALLER Oxygen Saturation 98% 09/25/2023 8:18 AM STEEL POST INSTALLER Inhaled Oxygen Concentration - - Weight 70.5 kg (155 lb 8 oz) 09/23/2023 2:55 PM STEEL POST INSTALLER Height - - Body Mass Index 27.55 03/31/2023 10:48 PM CDT documented in this encounter Discharge Summaries * Lukasz Weaver MD - 09/25/2023 12:21 PM CST [facility] Hospitalist Discharge Summary Date of Admission: 09/22/2023 Date of Discharge: 09/25/2023 Discharging Provider: Lukasz Weaver MD Discharge Service: Hospitalist Service Discharge Diagnoses Crohn's disease with acute exacerbation Clinically Significant Risk Factors Follow-ups Needed After Discharge Follow-up Appointments Follow-up and recommended labs and tests Follow up with primary care provider, Andrew Israel, within 7 days for hospital follow- up. The following labs/tests are recommended: CRP Follow-up with gastroenterology as planned. Discharge Disposition Discharged to home Condition at discharge: Good Hospital Course Hortensia Buitrago is a 63 year old lady with history of Crohn's disease s/p ileocecal resection in March 2023 on chronic treatment with Remicade and steroids which are being tapered, renal cell carcinoma s/p right nephrectomy 2008, appendicectomy, cholecystectomy who came to [facility] 09/22/2023 with symptoms of diarrhea, abdominal pain, nausea and vomiting despite aggressive outpatient management she was getting worse for the past 10 days. At admission her temperature was 98.9 ??F pulse 76 blood pressure 137/84 WBC 7000 hemoglobin 13.4 platelet count 223,000 sodium 140 potassium 4.2 chloride 104 bicarb 25 BUN 7.8 creatinine 1.03 CRP less than [address] abdomen and pelvis did not show any acute findings. Patient was evaluated by gastroenterology. Dr. Munoz felt thatthe patient symptoms very beginning at 7 weeks after Remicade and therefore Remicade infusion was given in the hospital with a change plan to give it every 6 weeks as outpatient. MR enterography showe d Crohn disease status post ileocecectomy. No imaging signs of active inflammation. 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 She is currently on Remicade and prednisone, seems to get symptoms several weeks before Remicade due. Per GI, increasing frequency of Remicade and if no response, they will consider another biologic. -remicade infusion was given with solumedrol prior to infusion -continue pain control and advance diet as tolerated Consultations This Hospital Stay GASTROENTEROLOGY IP CONSULT CARE MANAGEMENT / SOCIAL WORK IP CONSULT Code Status Full Code Time Spent on this Encounter I, Lukasz Weaver MD, personally saw the patient today and spent greater than 30 minutes dischargingthis patient. Lukasz Weaver MD [facility] [address] [place] [address] Physical Exam Vital Signs: Temp: 97.9 ??F (36.6 ??C) Temp src: Oral BP: (!) 126/92 Pulse: 97 Resp: 16 SpO2: 98 % O2 Device: None (Room air) Weight: 155 lbs 8 oz GENERAL: Patient is not in acute distress HEENT: EOM+,Conjunctiva is clear NECK: no Jugular Venous distention HEART: S1 S2 regular Rate and Rhythm, there is no murmur, LUNGS: Respirations are not laboured, Lungs are clear to auscultation without Crepitations or Wheezing ABDOMEN: Soft , there is minima tenderness ,Bowel Sounds are Positive LOWER LIMBS: no Pedal Edema Bilaterally CAGE SUPERVISOR: Alert, Oriented x 3, Moving all the Four Limbs Primary Care Physician Andrew Israel Discharge Orders Reason for your hospital stay came to [facility] 09/22/2023 with symptoms of diarrhea, abdominal pain, nausea and vomiting Follow-up and recommended labs and tests Follow up with primary care provider, Andrew Israel, within 7 days for hospital follow- up. The following labs/tests are recommended: CRP Follow-up with gastroenterology as planned. Activity Your activity upon discharge: activity as tolerated Diet Follow this diet upon discharge: Orders Placed This Encounter Regular Diet Adult Significant Results and Procedures Most Recent 3 CBC's: Recent Labs Lab Test 09/23/23 0816 09/22/23 1823 08/07/23 1505 WBC 6.0 7.0 4.5 HGB 12.6 13.4 13.2 MCV 91 92 85 PLT 191 223 215 Most Recent 3 BMP's: Recent Labs Lab Test 09/23/23 0816 09/22/23 1823 08/07/23 1505 NA 139 140 139 POTASSIUM 4.5 4.2 4.3 CHLORIDE 107 104 105 CO2 23 BUN 7.1* 7.8* 6.8* CR 0.85 1.03* 1.08* ANIONGAP 8 11 11 DAJA 8.6* 9.0 8.9 GLC 133* 100* 116* Most Recent 2 LFT's: Recent Labs Lab Test 09/23/23 0816 09/22/23 1823 AST 16 15 ALT 11 15 ALKPHOS 64 71 BILITOTAL 0.6 0.7 Most Recent Urinalysis: Recent Labs Lab Test 09/22/23 1801 COLOR Straw APPEARANCE Clear URINEGLC Negative URINEBILI Negative URINEKETONE Negative SG 1.005 UBLD Negative URINEPH 5.0 PROTEIN Negative NITRITE Negative LEUKEST Negative RBCU <1 WBCU <1 , Results for orders placed or performed during the hospital encounter of 09/22/23 Abd/pelvis CT, IV contrast only TRAUMA / AAA Narrative EXAM: CT ABDOMEN PELVIS W CONTRAST LOCATION: [facility] DATE: 09/22/2023 INDICATION: Abdominal pain, hx of [...] VASCULATURE: Unremarkable. PELVIC ORGANS: Hysterectomy MUSCULOSKELETAL: Unremarkable. Impression IMPRESSION: 1. No acute findings in the abdomen or pelvis. MR Enterography w/o & wContrast Narrative EXAM: MRI ENTEROGRAPHY/MRI ABDOMEN AND MRI PELVIS WITHOUT AND WITH CONTRAST LOCATION: [facility] DATE: 09/23/2023 INDICATION: History of small bowel [...] is absent. Cholecystectomy. No adenopathy. Normal pelvis. Impression IMPRESSION: 1. Crohn disease status post ileocecectomy. No imaging signs of active inflammation. 2. No extraintestinal manifestations. Discharge Medications Current Discharge Medication List START taking these medications Details dicyclomine (BENTYL) 20 MG tablet Take 1 tablet (20 mg) by mouth 4 times daily (before meals and nightly) Qty: 30 tablet, Refills: 0 Associated Diagnoses: Intractable abdominal pain HYDROmorphone (DILAUDID) 2 MG tablet Take 1 tablet (2 mg) by mouth every 4 hours as needed for severe pain (IF pain not managed with non-pharmacological and non- opioid interventions) Qty: 12 tablet, Refills: 0 Associated Diagnoses: Intractable abdominal pain simethicone (MYLICON) 80 MG chewable tablet Take 1 tablet (80 mg) by mouth every 6 hours as needed for cramping Qty: 30 tablet, Refills: 0 Associated Diagnoses: Intractable abdominal pain CONTINUE these medications which have CHANGED Details hydrOXYzine HCl (ATARAX) 25 MG tablet Take 1 tablet (25 mg) by mouth every 6 hours as needed for other (adjuvant pain) Qty: 30 tablet, Refills: 0 Associated Diagnoses: Acute colitis; [...] for shortness of breath, wheezing or cough Bioflavonoid Products (VITAMIN C) CHEW Take 1 tablet by mouth daily bisacodyl (DULCOLAX) [address] 1 suppository (10 mg) rectally 2 times daily as neededfor constipation Qty: 10 suppository, Refills: 1 Associated Diagnoses: RLQ abdominal pain; Partial small bowel obstruction (H) cholecalciferol (VITAMIN D3) 10 mcg (400 units) TABS tablet Take 10 mcg by mouth daily cyanocobalamin (CYANOCOBALAMIN) 1000 MCG/ML injection Inject 1,000 mcg as directed every 30 days esomeprazole (NEXIUM) [address] capsule Take 40 mg by mouth 2 times daily (before meals) Take 30-60 minutes before eating. famotidine (PEPCID) 40 MG tablet Take 40 mg by mouth At Bedtime inFLIXimab (REMICADE IV) Inject 10 mg/kg into the vein once every eight weeks medical cannabis (Patient's own supply) Take 1 Dose by mouth See Admin Instructions (The purpose ofthis order is to document that the patient reports taking medical cannabis. This is not a prescription, and is not used to certify that the patient has a qualifying medical condition.) 25 MG EDIBLE methocarbamol (ROBAXIN) 500 MG tablet Take 1 [...] Take 200 mg by mouth At Bedtime STOP taking these medications dicyclomine (BENTYL) 10 MG capsule Comments: Reason for Stopping: diphenhydrAMINE (BENADRYL) 25 MG capsule Comments: Reason for Stopping: Allergies Allergies Allergen Reactions Latex Hives Oxycodone Anaphylaxis, Hives and Swelling Throat swelling, per pt Pt tolerates [place]/Vicodin (06/22/2023) Penicillin G Anaphylaxis Sumatriptan Palpitations Aspirin Nausea and Vomiting Demerol Hcl [Meperidine] Nausea and Vomiting N/V Percocet [Oxycodone-Acetaminophen] Nausea and Vomiting N/V Codeine Nausea and Vomiting Mold L POST INSTALLER documented in this encounter Discharge Instructions * Discharge Instructions* Eddy Mackay MD - 09/22/2023 8:46 PM STEEL POST INSTALLER Discharge Instructions Abdominal Pain Abdominal pain (belly pain) can be caused by many things. Your evaluation today does not show the exact cause for your pain. Your provider today has decided that it is unlikely your pain is due to a life threatening problem, or a problem requiring surgery or hospital admission. Sometimes those problems cannot be found right away, so it is very important that you follow up as directed. Sometimes only the changes which occur over time allow the cause of your pain to be found. Generally, every Emergency Department visit should have a follow-up clinic visit with either a primary or a specialty clinic/provider. Please follow-up as instructed by your emergency provider today.With abdominal pain, we often recommend very close follow-up, such as the following day. ADULTS: Return to the Emergency Department right away if: You get an oral temperature above 102oF or as directed by your provider. You have blood in your stools. This may be bright red or appear as black, tarry stools. You keep vomiting (throwing up) or cannot drink liquids. You see blood when you vomit. You cannot have a bowel movement or you cannot pass gas. Your stomach gets bloated or bigger. Your skin or the whites of your eyes look yellow. You faint. You have bloody, frequent or painful urination (peeing). You have new symptoms or anything that worries you. CHILDREN: Return to the Emergency Department right away if your child has any of the above-listed symptoms or the following: Pushes your hand away or screams/cries when his/her belly is touched. You notice your child is very fussy or weak. Your child is very tired and is too tired to eat or drink. Your child is dehydrated. Signs of dehydration can be: Significant change in the amount of wet diapers/urine. Your or child starts to have dry mouth and lips, or no saliva (spit) or tears. WOMEN: Return to the Emergency Department right away if you have any of the above-listed symptoms or the following: You have bleeding, leaking fluid or passing tissue from the vagina. You have worse pain or cramping, or pain in your shoulder or back. You have vomiting that will not stop. You have a temperature of 100oF or more. Your baby is not moving as much as usual. You faint. You get a bad headache with or without eye problems and abdominal pain. You have a seizure. You have unusual discharge from your vagina and abdominal pain. Abdominal pain is pretty common during . Your pain may or may not be related to your . You should follow-up closely with your OB provider so they can evaluate you and your baby. Until you follow-up with your regular provider, do the following: Avoid sex and do not put anything in your vagina. Drink clear fluids. Only take medications approved by your provider. MORE INFORMATION: Appendicitis: A possible cause of abdominal pain in any person who still has their appendix is acute appendicitis. Appendicitis is often hard to diagnose. Testing does not always rule out early appendicitis or other causes of abdominal pain. Close follow-up with your provider and re-evaluations maybe needed to figure out the reason for your abdominal pain. Follow-up: It is very important that you make an appointment with your clinic and go to the appointment. If you do not follow-up with your primary provider, it may result in missing an important development which could result in permanent injury or disability and/or lasting pain. If there is any problem keeping your appointment, call your provider or return to the Emergency Department. Medications: Take your medications as directed by your provider today. Before using [id number] medications, ask your provider and make sure to take the medications as directed. If you have any questions about medications, ask your provider. Diet: Resume your normal diet as much as possible, but do not eat fried, fatty or spicy foods whileyou have pain. Do not drink alcohol or have caffeine. Do not smoke tobacco. Probiotics: If you have been given an antibiotic, you may want to also take a probiotic pill or eatyogurt with live cultures. Probiotics have good bacteria to help your intestines stay healthy. Studies have shown that probiotics help prevent diarrhea (loose stools) and other intestine problems (including C. diff infection) when you take antibiotics. You can buy these without a prescription in the pharmacy section of the store. If you were given a prescription for medicine here today, be sure to read all of the information (including the package insert) that comes with your prescription. This will include important information about the medicine, its side effects, and any warnings that you need to know about. The pharmacist who fills the prescription can provide more information and answer questions you may have about the medicine. If you have questions or concerns that the pharmacist cannot address, please call or return to the Emergency Department. Remember that you can always come back to the Emergency Department if you are not able to see your regular provider in the amount of time listed above, if you get any new symptoms, or if there is anything that worries you. Discharge Instructions Adult Diarrhea You have been seen today for diarrhea (loose stools). This is usually caused by a virus, but some bacteria, parasites, medicines, or other medical conditions can cause similar symptoms. At this time your provider does not find that your diarrhea is a sign of anything dangerous or life-threatening. However, sometimes the signs of serious illness do not show up right away. If you have new or worse symptoms, you may need to be seen again in the Emergency Department or by your primary provider. Generally, every Emergency Department visit should have a follow-up clinic visit with either a primary or a specialty clinic/provider. Please follow-up as instructed by your emergency provider today. Return to the Emergency Department if: You feel you are getting dehydrated, such as being very thirsty, not urinating (peeing) like usual,or feeling faint or lightheaded. You develop a new fever. You have abdominal (belly) pain that seems worse than cramps, is in one spot, or is getting worse over time. You have blood in your stool or your stool becomes black. (Remember that if you take Pepto-Bismol??, this will turn your stool black). You feel very weak. What can I do to help myself? The most important thing to do is to drink clear liquids. It is best to have only small, frequent sips of liquids. Drinking too much at once may cause more diarrhea. You should also replace minerals,sodium and potassium lost with diarrhea. Pedialyte?? and sports drinks can help you replace these minerals. You can also drink clear liquids such as water, weak tea, apple juice, and 7-Up??. Avoid acidic liquids (orange juice), caffeine (coffee) or alcohol. Milk products will make the diarrhea worse. Eat bland (plain) foods. Soda crackers, toast, plain noodles, gelatin, applesauce and bananas are good first choices. Avoid foods that have acid, are spicy, fatty or fibrous (such as meats, coarse grains, vegetables). You may start eating these foods again in about 3 days when you are better. Sometimes treatment includes prescription medicine to prevent diarrhea. If your provider prescribesthese for you, take them as directed. Nonprescription medicine is available for the treatment of diarrhea and can be very effective. If you use it, make sure you use the dose recommended on the package. Check with your healthcare provider before you use any medicine for diarrhea. Do not take ibuprofen, or other nonsteroidal anti-inflammatory medicines, without checking with your healthcare provider. Probiotics: If you have been given an antibiotic, you may want to also take a probiotic pill or eatyogurt with live cultures. Probiotics have good bacteria to help your intestines stay healthy. Studies have shown that probiotics help prevent diarrhea and other intestine problems (including C. diff infection) when you take antibiotics. You can buy these without a prescription in the pharmacy section of the store. If you were given a prescription for medicine here today, be sure to read all of the information (including the package insert) that comes with your prescription. This will include important information about the medicine, its side effects, and any warnings that you need to know about. The pharmacist who fills the prescription can provide more information and answer questions you may have about the medicine. If you have questions or concerns that the pharmacist cannot address, please call or return to the Emergency Department. Remember that you can always come back to the Emergency Department if you are not able to see your regular provider in the amount of time listed above, if you get any new symptoms, or if there is anything that worries you. L POST INSTALLER documented in this encounter Medications at Time [...] shortness of breath, wheezing or cough 0 Bioflavonoid Products (VITAMIN C) CHEW Take 1 tablet by mouth daily 0 bisacodyl (DULCOLAX) 10 MG suppositoryIndications :RLQ abdominal pain,Partial small bowel obstruction (H) Place 1 suppository (10 mg) rectally 2 times daily as needed for constipation 10 suppository 1 02/23/2023 cholecalciferol (VITAMIN D3) 10 mcg (400 units) TABS tablet Take 10 mcg by mouth daily 0 cyanocobalamin (CYANOCOBALAMIN) 1000 MCG/ML injection Inject 1,000 mcg as directed every 30 days 0 dicyclomine (BENTYL) 20 MG tabletIndications:Intr actable abdominal pain Take 1 tablet (20 mg) by mouth 4 times daily (before meals and nightly) 30 tablet 0 09/25/2023 esomeprazole (NEXIUM) [address] capsule Take 40 mg by mouth 2 times daily (before meals) Take 30-60 minutes before eating. 0 famotidine (PEPCID) 40 MG tablet Take 40 mg by mouth At Bedtime 0 HYDROmorphone (DILAUDID) 2 MG tabletIndications:Intr actable abdominal pain Take 1 tablet (2 mg) by mouth every 4 hours as needed for severe pain (IF pain not managed with non-pharmacologica l and non-opioid interventions) 12 tablet 0 09/25/2023 hydrOXYzine HCl (ATARAX) 25 MG tabletIndications:Acut e colitis,Crohn's disease with complication, unspecified gastrointestinal tract location (H),Abdominal pain, unspecified abdominal location Take 1 tablet (25 mg) by mouth every 6 hours as needed for other (adjuvant pain) 30 tablet 0 09/25/2023 inFLIXimab (REMICADE IV)Indications:Gastroe nterologist has changed the frequency to every 6 weeks Inject 10 mg/kg into the vein once every eight weeks 0 medical cannabis (Patient's own supply) Take 1 Dose by mouth See Admin Instructions (The purpose of this order is to document that the patient reports taking medical cannabis. This is not a prescription, and is not used to certify that the patient has a qualifying medical condition.) 25 MG EDIBLE 0 methocarbamol (ROBAXIN) 500 MG tabletIndications:RLQ abdominal pain,Partial [...] needed for nausea 15 tablet 2 02/23/2023 simethicone (MYLICON) 80 MG chewable tabletIndications:Intr actable abdominal pain Take 1 tablet (80 mg) by mouth every 6 hours as needed for cramping 30 tablet 0 09/25/2023 traZODone (DESYREL) 100 MG tablet Take 200 mg by mouth At Bedtime 0 documented as of this encounter Progress Notes * Destini Koch RN - 09/25/2023 12:51 PM CST VSS. Pain controlled with simethicone, ambulation and oral pain medication prior to discharge. Tolerating regular diet. Feels full. Ambulating often in halls. Oral zofran given; states she is generally nauseated at baseline. Discharged home to self care. Discharge instructions given; all questions answered. Aware of follow up recommendations. L POST INSTALLER * Lukasz Weaver MD - 09/24/2023 2:12 PM CST .Hospitalist Medicine Progress Note [facility] Hortensai Buitrago is a 63 year old lady with history of Crohn's disease s/p ileocecal resection in March 2023 on chronic treatment with Remicade and steroids which are being tapered, renal cell carcinoma s/p right nephrectomy 2008, appendicectomy, cholecystectomy who came to [facility] 09/22/2023 with symptoms of diarrhea, abdominal pain, nausea and vomiting despite aggressive outpatient management she was getting worse for the past 10 days. At admission her temperature was 98.9 ??F pulse 76 blood pressure 137/84 WBC 7000 hemoglobin 13.4 platelet count 223,000 sodium 140 potassium 4.2 chloride 104 bicarb 25 BUN 7.8 creatinine 1.03 CRP less than [address] abdomen and pelvis did not show any acute findings. Patient was evaluated by gastroenterology. Dr. Munoz felt thatthe patient symptoms very beginning at 7 weeks after Remicade and therefore Remicade infusion was given in the hospital with a change plan to give it every 6 weeks as outpatient. MR enterography showe d Crohn disease status post ileocecectomy. No imaging signs of active inflammation. 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 She is currently on Remicade and prednisone, seems to get symptoms several weeks before Remicade due. Per GI, increasing frequency of Remicade and if no response, they will consider another biologic. -remicade infusion was given this AM with solumedrol prior to infusion -continue pain control and advance diet as tolerated Plan: Check CRP in a.m. Discharge 09/25/2023 Diet: Regular Diet Adult DVT Prophylaxis: Pneumatic Compression Devices Uribe Catheter: Not present Code Status: Full Code The patient's care was discussed with the Patient . Lukasz Weaver MD Hospitalist Service [facility] Interval History Symptoms Patient says that the abdominal pain was improved but after pressing on it this has increased to 10/10 Review of Systems: She feels that she needs to go to the bathroom at the time of my examination Data reviewed today: I reviewed all medications, new labs and imaging results over the last 24 hours. Physical Exam Vital Signs: Temp: 97.7 ??F (36.5 ??C) Temp src: Oral BP: (!) 144/97 Pulse: 96 Resp: 20 SpO2: 96 % O2 Device: None (Room air) Weight: 155 lbs 8 oz GENERAL: Patient is not in acute distress HEENT: EOM+,Conjunctiva is clear NECK: no Jugular Venous distention HEART: S1 S2 regular Rate and Rhythm, there is no murmur, LUNGS: Respirations are not laboured, Lungs are clear to auscultation without Crepitations or Wheezing ABDOMEN: Soft , there is minima tenderness ,Bowel Sounds are Positive LOWER LIMBS: no Pedal Edema Bilaterally CAGE SUPERVISOR: Alert, Oriented x 3, Moving all the Four Limbs Data Recent Labs Lab 09/23/23 0816 09/22/23 1823 WBC 6.0 7.0 HGB 12.6 13.4 MCV 91 92 PLT 191 223 NA 139 140 POTASSIUM 4.5 4.2 CHLORIDE 107 104 CO2 24 25 BUN 7.1* 7.8* CR 0.85 1.03* ANIONGAP 8 11 DAJA 8.6* 9.0 GLC 133* 100* ALBUMIN 3.9 4.5 PROTTOTAL 6.0* 7.0 BILITOTAL 0.6 0.7 ALKPHOS 64 71 ALT 11 15 AST 16 15 Recent Results (from the past 24 hour(s)) MR Enterography w/o & wContrast Narrative EXAM: MRI ENTEROGRAPHY/MRI ABDOMEN AND MRI PELVIS WITHOUT AND WITH CONTRAST LOCATION: [facility] DATE: 09/23/2023 INDICATION: History of small bowel [...] is absent. Cholecystectomy. No adenopathy. Normal pelvis. Impression IMPRESSION: 1. Crohn disease status post ileocecectomy. No imaging signs of active inflammation. 2. No extraintestinal manifestations. L POST INSTALLER * Hortensia Dominguez PA-C - 09/24/2023 11:24 AM CST Images from the original note were not included. GASTROENTEROLOGY PROGRESS NOTE SUBJECTIVE: Improvement in right-sided abdominal pain. Some bloating this morning. No diarrhea. No hematochezia. Eating regular diet without symptoms OBJECTIVE: BP (!) 140/82 Pulse 86 Temp 97.7 ??F (36.5 ??C) (Oral) Resp 20 Wt 70.5 kg (155 lb 8 oz) SpO2 97% BMI 27.55 kg/m?? Temp (24hrs), Av.9 ??F (36.6 ??C), Min:97.7 ??F (36.5 ??C), Max:98 ??F (36.7 ??C) Patient Vitals for the past 72 hrs: Weight 09/23/23 1455 70.5 kg (155 lb 8 oz) PHYSICAL EXAM Constitutional: No distress, resting comfortably Abdomen: Soft, minimal right lower quadrant abdominal discomfort, no rebound or guarding Additional Comments: ROS, FH, SH: See initial GI consult for details. I have reviewed the patient's new clinical lab results: Recent Labs Lab Test 09/23/23 0816 09/22/23 1823 08/07/23 1505 WBC 6.0 7.0 4.5 HGB 12.6 13.4 13.2 MCV 91 92 85 PLT 191 223 215 Recent Labs Lab Test 09/23/23 0816 09/22/23 1823 08/07/23 1505 POTASSIUM 4.5 4.2 4.3 CHLORIDE 107 104 105 CO2 24 25 23 BUN 7.1* 7.8* 6.8* ANIONGAP 8 11 11 Recent Labs Lab Test 09/23/23 0816 09/22/23 1823 09/22/23 1801 08/07/23 1726 08/07/23 1505 06/16/23 1750 06/16/23 1737 03/31/23 1717 03/31/23 1608 ALBUMIN 3.9 4.5 -- -- 4.2 -- 4.7 -- 3.9 BILITOTAL 0.6 0.7 -- -- 0.4 -- 0.4 -- 0.3 ALT 11 15 -- -- 28 -- 15 -- 28 AST 16 15 -- -- 28 -- 24 -- 29 PROTEIN -- -- Negative Negative -- Negative -- < > -- LIPASE -- -- -- -- -- -- 27 -- 56 < > = values in this interval not displayed. 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 1. Right lower quadrant abdominal pain with loose stool: Patient's been struggling with abdominal pain for the past few months. She has found relief with higher doses of prednisone, higher dose of infliximab, and with use of dicyclomine. CT scan of her abdomen and pelvis does not reveal any obstruction or inflammatory change. CRP is normal. Enterography just completed yesterday does not show any small bowel or colonic inflammation. No stricturing or evidence of bowel obstruction. --Given clinical picture of breakthrough symptoms at week 5-6 post Remicade, gave dose of Remicade today with plans for approval of Remicade every 6 weeks. [facility] will contact the patient once approvedto schedule infusions. -- Patient does have GI follow-up in 3 weeks with IBD MD in [place] Total time: 35 minutes of total time was spent providing patient care, including patient evaluation, reviewing documentation/test results, and eating disorder specialist. Discussed with Dr. Alexander Dominguez PA-C [facility] ( [facility]) L POST INSTALLER * Cathy Childers DO - 09/23/2023 5:44 PM CST [facility] Medicine Progress Note - Hospitalist Service Date of Admission: 09/22/2023 Assessment & Plan 63-year-old female with history of Crohn's disease status post ileocecal resection 03/2023, renal cell carcinoma status post nephrectomy with resulting CKD stage III, on Remicade chronic steroid therapy admitted with diarrhea, right-sided abdominal pain, admitted for suspected Crohn's flare. GI consulted while inpatient, Crohn's disease Stricturing ileal Crohn's disease diagnosed in January 2023, underwent ileal cecal resection for stricture in March 2023. She is currently on Remicade and prednisone, seems to get symptoms several weeks before Remicade due. Per GI, increasing frequency of Remicade and if no response, they will consider another biologic. -remicade infusion in AM -premedicating with claritin 10 mg tonight and tomorrow morning along with solumedrol prior to infusion -continue pain control and IVF Diet: Regular Diet Adult DVT Prophylaxis: Pneumatic Compression Devices Uribe Catheter: Not present Lines: None Cardiac Monitoring: None Code Status: Full Code Clinically Significant Risk Factors Present on Admission Disposition Plan Expected Discharge Date: 09/23/2023 Cathy Childers DO Hospitalist Service [facility] Securely message with [employer] (more info) Text page via [employer] Paging/Directory Interval History pain is relatively well-controlled today, no further diarrhea Physical Exam Vital Signs: Temp: 97.9 ??F (36.6 ??C) Temp src: Oral BP: (!) 149/84 Pulse: 82 Resp: 16 SpO2: 95 % O2 Device: None (Room air) Weight: 155 lbs 8 oz General: Very pleasant female , NAD Respiratory: Normal work of breathing. Musculoskeletal: Moving all extremities appropriately. Skin: No rashes or abrasions on exposed skin. Neurologic: Alert. No gross focal deficits. Psychologic: Appropriate mood and affect. Medical Decision Making 40 MINUTES SPENT BY ME on the date of service doing chart review, history, exam, documentation & further activities per the note. Data I have personally reviewed the following data over the past 24 hrs: 6.0 \ 12.6 / 191 139 107 7.1 (L) / 133 (H) 4.5 24 0.85 \ ALT: 11 AST: 16 AP: 64 TBILI: 0.6 ALB: 3.9 TOT PROTEIN: 6.0 (L) LIPASE: N/A Procal: N/A CRP: <3.00 Lactic Acid: 1.5 Imaging results reviewed over the past 24 hrs: Recent Results (from the past 24 hour(s)) Abd/pelvis CT, IV contrast only TRAUMA / AAA Narrative EXAM: CT ABDOMEN PELVIS W CONTRAST LOCATION: [facility] DATE: 09/22/2023 INDICATION: Abdominal pain, hx of [...] VASCULATURE: Unremarkable. PELVIC ORGANS: Hysterectomy MUSCULOSKELETAL: Unremarkable. Impression IMPRESSION: 1. No acute findings in the abdomen or pelvis. L POST INSTALLER documented in this encounter H&P Notes * Calin Pradhan DO - 09/22/2023 10:03 PM CST [facility] History and Physical - Hospitalist Service Date of Admission: 09/22/2023 Assessment & Plan Hortensia Buitrago is a 63 year old female w/PMH crohns disease s/p ileocolic resection on remicade and chronic steroids who presents with diarrhea and abd pain and admitted for possible crohns flare Possible crohn's flare Hx ileocolic resection on remicade, steroids -has long hx of resistant crohns, has been on remicade and steroids added in July. Had been trying to taper her steroids down but symptoms have been persistent with nausea, occasional vomiting and large volume diarrhea despite aggressive outpt management acutely worsening past 10 days. She was told by her GI team to present to ED today. They had been considering an MRI enterography study but I'm unclear if we do that here. Recent C dif testing neg as outpt -in ED no leukocytosis, afebrile. CT abd/pelvis without acute findings. Inflammatory markers are normal -discussed with patient, she feels she's improved on IV steroids in past, she's unsure if she's absorbing the prednisone -IV solumedrol 60 daily and will consult GI -antiemetics, pain control, IVF. States immodium constipates her so will avoid Mild FRANCISCO -Cr 1.03, likely from diarrhea -gentle fluids, serial labs Diet: regular DVT Prophylaxis: Pneumatic Compression Devices Uribe Catheter: Not present Lines: None Cardiac Monitoring: None Code Status: full code Calin Pradhan DO Hospitalist Service [facility] Securely message with [employer] (more info) Text page via [facility] Paging/Directory Chief Complaint Abd pain, diarrhea History of Present Illness Hortensia Buitrago is a 63 year old female w/PMH crohns disease s/p ileocolic resection on remicade and chronic steroids who presents with diarrhea and abd pain. She reports ongoing diarrhea and abd pain despite being on remicade and steroids since July. Over past 10 days has been getting worse and talked with her GI team who recommended she present to ED today. She denies any fever, CP, sob butreports chills, chronic nausea, occasional vomiting. Had C dif testing recently as outpt that was negative. Notes that she's unsure if she is absorbing her prednisone very well, feels she had improved previously while on IV steroids. In ED had CT abdomen/pelvis negative for any acute findings. No leukocytosis or fever. Cr up at 1.03. UA negative Past Medical History Past Medical History: Diagnosis Date Crohn's disease (H) PONV (postoperative nausea and vomiting) Past Surgical History Past Surgical History: Procedure Laterality Date APPENDECTOMY CHOLECYSTECTOMY COLONOSCOPY N/A 06/20/2023 Procedure: Colonoscopy with biopsies; Surgeon: Ananda Vernon MD; Location: GI LAPAROSCOPIC RESECTION ILEOCECAL N/A 03/21/2023 Procedure: Laparoscopic assisted ileocolic resection; Surgeon: Madison Iverson MD; Location: [facility] OR NEPHRECTOMY Right 2008 Prior to Admission Medications Prior to Admission Medications Prescriptions Last Dose Informant Patient Reported? Taking? HYDROcodone-acetaminophen (NORCO) 5-325 MG tablet No No Sig: Take 1-2 tablets by mouth every 6 hours as needed for severe pain (max acetaminophen (4 gram aday including tylenol)) acetaminophen (TYLENOL) 500 MG tablet No No Sig: Take 1-2 tablets (500-1,000 mg) by mouth every 6 hours as needed for mild pain acetaminophen (TYLENOL) 650 MG CR tablet Yes [...] for constipation cyanocobalamin (CYANOCOBALAMIN) 1000 MCG/ML injection Yes No Sig: Inject 1,000 mcg as directed every 30 days diphenhydrAMINE (BENADRYL) 25 MG capsule No No Sig: Take 1 capsule (25 mg) by mouth every 6 hours as needed for itching or allergies esomeprazole (NEXIUM) [address] capsule Yes No Sig: Take 40 mg by mouth 2 times daily (before meals) Take 30-60 minutes before eating. famotidine (PEPCID) 40 MG tablet Yes No Sig: Take 40 mg by mouth At Bedtime hydrOXYzine (ATARAX) 25 MG tablet No No Sig: Take 1 tablet (25 mg) by mouth every 6 hours as needed for other (adjuvant pain) methocarbamol (ROBAXIN) 500 MG tablet No No [...] for nausea traZODone (DESYREL) 100 MG tablet Yes No Sig: Take 200 mg by mouth At Bedtime Facility-Administered Medications: None Review of Systems The 10 point Review of Systems is negative other than noted in the HPI or here. Social History I have reviewed this patient's social history and updated it with pertinent information if needed. Family History I have reviewed this patient's family history and updated it with pertinent information if needed. Family History Problem Relation Age of Onset Colon Cancer Niece Allergies Allergies Allergen Reactions Latex Hives Oxycodone Anaphylaxis, Hives and Swelling Throat swelling, per pt Pt tolerates [place]/Vicodin (06/22/2023) Penicillin G Anaphylaxis Sumatriptan Palpitations Aspirin Nausea and Vomiting Demerol Hcl [Meperidine] Nausea and Vomiting N/V Percocet [Oxycodone-Acetaminophen] Nausea and Vomiting N/V Codeine Nausea and Vomiting Mold Physical Exam Vital Signs: Temp: 98.9 ??F (37.2 ??C) BP: 137/84 Pulse: 76 Resp: 20 SpO2: 98 % Weight: 0 lbs 0 oz Constitutional: awake, alert, and cooperative Eyes: pupils equal, round and reactive to light and conjunctiva normal ENT: normocepalic, without obvious abnormality, atramatic Respiratory: no increased work of breathing, good air exchange, and clear to auscultation Cardiovascular: regular rate and rhythm and no murmur noted GI: hypoactive bowel sounds, soft, non-distended, very tender to palpation mostly R side with some questionable rebound Skin: no bruising or bleeding Neurologic: alert, oriented, no focal deficits 60 MINUTES SPENT BY ME on the date of service doing chart review, history, exam, documentation & further activities per the note. Data PAST 24 HR DATA REVIEWED I have personally reviewed the following data over the past 24 hrs: 7.0 \ 13.4 / 223 140 104 7.8 (L) / 100 (H) 4.2 25 1.03 (H) \ ALT: 15 AST: 15 AP: 71 TBILI: 0.7 ALB: 4.5 TOT PROTEIN: 7.0 LIPASE: N/A Procal: N/A CRP: <3.00 Lactic Acid: 1.5 Imaging results reviewed over the past 24 hrs: Recent Results (from the past 24 hour(s)) Abd/pelvis CT, IV contrast only TRAUMA / AAA Narrative EXAM: CT ABDOMEN PELVIS W CONTRAST LOCATION: [facility] DATE: 09/22/2023 INDICATION: Abdominal pain, hx of [...] VASCULATURE: Unremarkable. PELVIC ORGANS: Hysterectomy MUSCULOSKELETAL: Unremarkable. Impression IMPRESSION: 1. No acute findings in the abdomen or pelvis. L POST INSTALLER documented in this encounter Consult Notes * Hortensia Dominguez PA-C - 09/23/2023 9:56 AM CSTAssociated Order(s): GASTROENTEROLOGY IP CONSULT Images from the original note were not included. GASTROENTEROLOGY CONSULTATION Hortensia Buitrago [address] [place] [id number] 63 year old female Admission Date/Time: 09/22/2023 Primary Care Provider: Andrew Israel Referring / Attending Physician: Dr. Pradhan We were asked to see the patient in consultation by Dr. Pradhan for evaluation of abdominal pain anddiarrhea. 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 Additional history includes RCC s/p nephrectomy with CKD stage 3 and previous cholecystectomy. Patientpresents to the emergency room with ongoing right-sided abdominal pain and loose stool. Patient reports she has been struggling with right-sided abdominal pain for the past few months. She has been experiencing loose stool and diarrhea since her ileocecal resection in March. Her IBD provider did start a course of prednisone in July. The patient notes that at higher doses it does alleviate her abdominal pain and somewhat helps with loose stool. When she gets down to 10 and 5 mg ofprednisone her abdominal pain comes back. She has tried both Imodium and cholestyramine for loose stool. The cholestyramine works very well but on a 2 g dose she was constipated for 3 days and does not want to use it again. She is not experiencing any GI bleeding. Recent C. difficile testing through [facility] was negative in early September. Her dose of infliximab was recently increased to 10 mg/kg every 8 weeks. She received 1 infusion at this dosage in early August and notes that she had relief ofall her symptoms for at least 3 weeks. Additionally in a clinic, she was given a prescription for dicyclomine. She notes that this does also help her abdominal pain when she takes it 4 times a day. Colonoscopy 06/17/2023 revealed normal colon and TI, patent anastomosis, and internal hemorrhoids. Random colon biopsy was unremarkable. A CT scan of the abdomen and pelvis with contrast did not reveal any inflammatory change nor bowel obstruction. CBC was entirely normal with normal hemoglobin and normal white count. Electrolytes andkidney function are stable. CRP is normal. PAST MEDICAL HISTORY: Patient Active Problem List Diagnosis Date Noted History of Crohn's disease 09/22/2023 Priority: Medium Intractable lower abdominal pain 09/22/2023 Priority: Medium Diarrhea, unspecified type 09/22/2023 Priority: Medium Acute colitis 06/16/2023 Priority: Medium Dizziness 03/31/2023 [...] or cough Yes Unknown, Entered By History Bioflavonoid Products (VITAMIN C) CHEW Take 1 tablet by mouth daily Yes Unknown, Entered By History bisacodyl (DULCOLAX) [address] 1 suppository (10 mg) rectally 2 times daily as neededfor constipation 02/23/23 Yes Eva Hammond DO cholecalciferol (VITAMIN D3) 10 mcg (400 units) TABS tablet Take 10 mcg by mouth daily Yes Unknown,Entered By History cyanocobalamin (CYANOCOBALAMIN) 1000 MCG/ML injection Inject 1,000 mcg as directed every 30 days Yes Unknown, Entered By History dicyclomine (BENTYL) 10 MG capsule Take 10 mg by mouth 4 times daily (before meals and nightly) YesUnknown, Entered By History diphenhydrAMINE (BENADRYL) 25 MG [...] At Bedtime Yes Unknown, Entered By History inFLIXimab (REMICADE IV) Inject 10 mg/kg into the vein once every eight weeks Yes Unknown, Entered By History medical cannabis (Patient's own supply) Take 1 Dose by mouth See Admin Instructions (The purpose ofthis order is to document that the patient reports taking medical cannabis. This is not a prescription, and is not used to certify that the patient has a qualifying medical condition.) 25 MG EDIBLE Yes Unknown, Entered By History methocarbamol (ROBAXIN) [...] Hives and Swelling Throat swelling, per pt Pt tolerates [place]/Vicodin (06/22/2023) Penicillin G Anaphylaxis Sumatriptan Palpitations Aspirin Nausea and Vomiting Demerol Hcl [Meperidine] Nausea and Vomiting N/V Percocet [Oxycodone-Acetaminophen] Nausea and Vomiting N/V Codeine Nausea and Vomiting Mold SOCIAL HISTORY: FAMILY HISTORY: Family History Problem Relation Age of Onset Colon Cancer Niece PHYSICAL EXAM: BP 133/87 (BP Location: Right arm, Patient Position: Semi-Gould's, Cuff Size: Adult Regular) Pulse 94 Temp 97.7 ??F (36.5 ??C) (Oral) Resp 18 SpO2 98% PHYSICAL EXAM: GENERAL: No distress, resting comfortably SKIN: no suspicious lesions, rashes, jaundice HEAD: Normocephalic. Atraumatic. NECK: Neck supple. No adenopathy. EYES: No scleral icterus GASTROINTESTINAL: +BS, soft, RLQ tenderness, non distended, no guarding/rebound JOINT/EXTREMITIES: no gross deformities noted, normal muscle tone NEURO: CN 2-12 grossly intact, no focal deficits PSYCH: Normal affect ADDITIONAL COMMENTS: I reviewed the patient's new clinical lab test results. Recent Labs Lab 09/23/23 0816 09/22/231822 WBC 6.0 7.0 RBC 4.24 4.44 HGB 12.6 13.4 HCT 38.4 40.7 MCV 91 92 MCH 29.7 30.2 MCHC 32.8 32.9 RDW 14.3 14.5 PLT 191 223 Recent Labs Lab Test 09/23/23 0816 09/22/23 1823 08/07/23 1505 POTASSIUM 4.5 4.2 4.3 CHLORIDE 107 104 105 CO2 24 25 23 BUN 7.1* 7.8* 6.8* ANIONGAP 8 11 11 Recent Labs Lab Test 09/23/23 0816 09/22/23 1823 09/22/23 1801 08/07/23 1726 08/07/23 1505 06/16/23 1750 06/16/23 1737 03/31/23 1717 03/31/23 1608 ALBUMIN 3.9 4.5 -- -- 4.2 -- 4.7 -- 3.9 BILITOTAL 0.6 0.7 -- -- 0.4 -- 0.4 -- 0.3 ALT 11 15 -- -- 28 -- 15 -- 28 AST 16 15 -- -- 28 -- 24 -- 29 PROTEIN -- -- Negative Negative -- Negative -- < > -- LIPASE -- -- -- -- -- -- 27 -- 56 < > = values in this interval not displayed. IMAGING / ENDOSCOPY Recent Results (from the past 24 hour(s)) Abd/pelvis CT, IV contrast only TRAUMA / AAA Narrative EXAM: CT ABDOMEN PELVIS W CONTRAST LOCATION: [facility] DATE: 09/22/2023 INDICATION: Abdominal pain, hx of [...] VASCULATURE: Unremarkable. PELVIC ORGANS: Hysterectomy MUSCULOSKELETAL: Unremarkable. Impression IMPRESSION: 1. No acute findings in the abdomen or pelvis. 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 1. Right lower quadrant abdominal pain with loose stool: Patient's been struggling with abdominal pain for the past few months. She has found relief with higher doses of prednisone, higher dose of infliximab, and with use of dicyclomine. CT scan of her abdomen and pelvis does not reveal any obstruction or inflammatory change. CRP is normal. She has no white count or fever. No evidence of GI bleeding. LFTs, electrolytes, and lactate are all normal. Most recent colonoscopy, 4 months ago did not show evidence of active disease. Patient has struggled with loose stool since her ileocecal resectionin March. -- High suspicion for functional disorder in addition to her Crohn's disease. -- Will discuss plan for IV solumedrol and possible MRe w Dr. Munoz. -- Bentyl 20 mg QID I discussed the patient plan with Dr. Munoz, GI staff physician. Thank you for asking us to participate in the care of this patient. 70 min of total time was spent providing patient care, including patient evaluation, reviewing documentation/ test results, and eating disorder specialist. Shiela Dominguez PA-C [facility] ( [facility]) L POST INSTALLER Associated attestation - Apolinar Munoz MD - 09/23/2023 2:14 PM STEEL POST INSTALLER Does not have objective evidence of Crohn's, but symptoms beginning at seven weeks after Remicade are highly suggestive. Will try to get Remicade infusion now and then every six weeks as outpatient. If Remicade not working, will need to consider different biologic. RRR CTA No BS, soft, tender lower abdomen. Twenty minutes spent on patient care. * Miryam Arredondo LGSW - 09/23/2023 8:56 AM CSTAssociated Order(s): CARE MANAGEMENT / SOCIAL WORK IP CONSULT Care Management Follow Up Length of Stay (days): 0 Expected Discharge Date: 09/23/2023 Concerns to be Addressed: elevated risk score Patient plan of care discussed at interdisciplinary rounds: No Anticipated Discharge Disposition: home Anticipated Discharge Services: none Anticipated Discharge DME: Referrals Placed by CM/SW: none Private pay costs discussed: Not applicable Additional Information: Patient has a high URR of 24%. Patient has hx of crohn's. SW reviewed chart and there are no anticipated discharge needs at this time. Please consult care management if needs arise. ERICA Butler, JORGE Emergency Room Corn Lab Technician Please contact the SW on the floor in which the patient is staying for any questions or concerns L POST INSTALLER documented in this encounter ED Notes * Adrianna Lopez RN - 09/23/2023 12:12 PM CST [facility] ED Boarding Nurse Handoff Addendum Report: Date/time: 09/23/2023, 12:12 PM Activity Level: standby Fall Risk: No Active Infusions: NS 100 mL/hr Current Meds Due: None Current care needs: None Oxygen requirements (liters/min and/or FiO2): None Respiratory status: Room air Vital signs (within last 30 minutes): Vitals: 09/23/23 0048 09/23/23 0620 09/23/23 0900 09/23/23 1208 BP: 131/83 119/78 133/87 (!) 131/97 BP Location: Right arm Right arm Right arm Right arm Patient Position: Semi-Gould's Semi-Gould's Cuff Size: Adult Regular Adult Regular Pulse: 63 77 94 82 Resp: 20 18 18 18 Temp: 98.8 ??F (37.1 ??C) 97.6 ??F (36.4 ??C) 97.7 ??F (36.5 ??C) TempSrc: Oral Oral Oral SpO2: 97% 96% 98% 96% Focused assessment within last 30 minutes: A&Ox4. VSS. C/o 7/10 pain. PRN PO Dilaudid given. Pt stated symptoms improved to 5/10 pain. C/onausea. PRN IV Zofran given. Pt stated symptoms improved. ED Boarding Nurse name: Adrianna Lopez RN L POST INSTALLER * Mayela Danielle RN - 09/22/2023 11:14 PM CST Bed: ED26 Expected date: Expected time: Means of arrival: Comments: 9 for Pa L POST INSTALLER * Alicia Dockery RN - 09/22/2023 9:44 PM CST [facility] ED Nurse Handoff Report ED Chief complaint: Abdominal Pain . ED Diagnosis: Final diagnoses: Intractable lower abdominal pain Diarrhea, unspecified type History of Crohn's disease Allergies: Allergies Allergen Reactions Latex Hives Oxycodone Anaphylaxis, Hives and Swelling Throat swelling, per pt Pt tolerates [place]/Vicodin (06/22/2023) Penicillin G Anaphylaxis Sumatriptan Palpitations Aspirin Nausea and Vomiting Demerol Hcl [Meperidine] Nausea and Vomiting N/V Percocet [Oxycodone-Acetaminophen] Nausea and Vomiting N/V Codeine Nausea and Vomiting Mold Code Status: Full Code Activity level - Baseline/Home: independent. Activity Level - Current: independent. Lift room needed: No. Bariatric: No Sugar Reprocess Operator Head Needed: No Isolation: Yes. Infection: Not Applicable C-Diff Pending. Respiratory status: Room air Vital Signs (within 30 minutes): Vitals: 09/22/23 1902 09/22/23 1930 09/22/23199909/22/23 2102 BP: 122/80 128/73 137/84 Pulse: 78 76 Resp: Temp: SpO2: 98% 99% 98% 98% Cardiac Rhythm: , Pain level: Patient confused: No. Patient Falls Risk: nonskid shoes/slippers when out of bed, arm band in place, and patient and family education. Elimination Status: Has voided Patient Report - Initial Complaint: Abdominal pain . Focused Assessment: Hortensia Buitrago is a 63 year old female with the history of Crohn's disease whopresents to the emergency room with abdominal pain. The patient states that she has had a pain in the right lower quadrant of her abdomen that radiates to her back for the past week. She reports thather pain is constant. She has also had a lot of diarrhea and reports having to use the restroom 11 times today. She has had chills and hot flashes. She reports that this pain feels like her Crohns disease flare in November. She denies being constipated, recorded fevers, issues urinating, bloody stools, and vomiting. Denies recent travel out of country, new foods, and recent courses of antibiotics. She did take Aleve which did help slightly with the pain. She did also take Tylenol every 6 hours butit did not help with pain. She started taking dicyclomine on the 8th of this month. She does receive Remicade infusions. Her last one was in August and her next on is 10/09/22. She has tried to take m edications for diarrhea but they have left her constipated for days. Abnormal Results: Labs Ordered and Resulted from Time of ED Arrival to Time of ED Departure COMPREHENSIVE METABOLIC PANEL - Abnormal Result Value Sodium 140 Potassium 4.2 Carbon Dioxide (CO2) 25 Anion Gap 11 Urea Nitrogen 7.8 (*) Creatinine 1.03 (*) GFR Estimate 60 (*) Calcium 9.0 Chloride 104 Glucose 100 (*) Alkaline Phosphatase 71 AST 15 ALT 15 Protein Total 7.0 Albumin 4.5 Bilirubin Total 0.7 ROUTINE UA WITH MICROSCOPIC REFLEX TO CULTURE - Abnormal Color Urine Straw Appearance Urine Clear Glucose Urine Negative Bilirubin Urine Negative Ketones Urine Negative Specific Chrisney Urine 1.005 Blood Urine Negative pH Urine 5.0 Protein Albumin Urine Negative Urobilinogen Urine Normal Nitrite Urine Negative Leukocyte Esterase Urine Negative Bacteria Urine Few (*) RBC Urine <1 WBC Urine <1 LACTIC ACID WHOLE BLOOD - Normal Lactic Acid 1.5 CRP INFLAMMATION - Normal CRP Inflammation <3.00 ERYTHROCYTE SEDIMENTATION RATE AUTO - Normal Erythrocyte Sedimentation Rate 6 CBC WITH PLATELETS AND DIFFERENTIAL WBC Count 7.0 RBC Count 4.44 Hemoglobin 13.4 Hematocrit 40.7 MCV 92 MCH 30.2 MCHC 32.9 RDW 14.5 Platelet Count 223 % Neutrophils 74 % Lymphocytes 16 % Monocytes 7 % Eosinophils 1 % Basophils 1 % Immature Granulocytes 1 NRBCs per 100 WBC 0 Absolute Neutrophils 5.3 Absolute Lymphocytes 1.1 Absolute Monocytes 0.5 Absolute Eosinophils 0.1 Absolute Basophils 0.0 Absolute Immature Granulocytes 0.1 Absolute NRBCs 0.0 ENTERIC BACTERIA AND VIRUS PANEL BY PCR C. DIFFICILE TOXIN B PCR WITH REFLEX TO C. DIFFICILE ANTIGEN AND TOXINS A/B EIA Abd/pelvis CT, IV contrast only TRAUMA / AAA Final Result IMPRESSION: 1. No acute findings in the abdomen or pelvis. Treatments provided: See MAR Family Comments: none OBS brochure/video discussed/provided to patient: Yes ED Medications: Medications ondansetron (ZOFRAN) injection 4 mg (4 mg Intravenous $Given 09/22/231822) sodium chloride 0.9% BOLUS 1,000 mL (1,000 mLs Intravenous $New Bag 09/22/232120) sodium chloride 0.9% BOLUS 1,000 mL (0 mLs Intravenous Stopped 09/22/232111) HYDROmorphone (PF) (DILAUDID) injection 0.5 mg (0.5 mg Intravenous $Given 09/22/232121) iopamidol (ISOVUE-370) solution 500 mL (76 mLs Intravenous $Given 09/22/231910) CT scan flush (59 mLs Intravenous $Given 09/22/231910) Drips infusing: No For the majority of the shift this patient was Green. Interventions performed were n/a. Sepsis treatment initiated: No Cares/treatment/interventions/medications to be completed following ED care: n/a ED Nurse Name: Alicia Dockery RN 9:44 PM L POST INSTALLER * Cari Angel RN - 09/22/2023 4:55 PM CST Pt referred from for a Chron's flair up. States she is having 9/10 pain and frequent diarrhea. ABCs intact. BP (!) 134/91 Pulse 77 Temp 98.9 ??F (37.2 ??C) Resp 20 SpO2 100% Triage Assessment (Adult) Row Name 09/22/23 5126 Triage Assessment Airway WDL WDL Respiratory WDL Respiratory WDL WDL Cardiac WDL Cardiac WDL WDL Cognitive/Neuro/Behavioral WDL Cognitive/Neuro/Behavioral WDL WDL L POST INSTALLER * Eddy Mackay MD - 09/22/2023 4:38 PM CST History Chief Complaint: Abdominal Pain HPI Hortensia Buitrago is a 63 year old female with the history of Crohn's disease who presents to the emergency room with abdominal pain. The patient states that she has had a pain in the right lower quadrant of her abdomen that radiates to her back for the past week. She reports that her pain is constant. She has also had a lot of diarrhea and reports having to use the restroom 11 times today. She has had chills and hot flashes. She reports that this pain feels like her Crohns disease flare in November. She denies being constipated, recorded fevers, issues urinating, bloody stools, and vomiting. Denies recent travel out of country, new foods, and recent courses of antibiotics. She did take Aleve which did help slightly with the pain. She did also take Tylenol every 6 hours but it did not help with pain. She started taking dicyclomine on the of this month. She does receive Remicade infusions. Her last one was in August and her next on is 10/09/22. She has tried to take medications for diarrhea but they have left her constipated for days. Independent Historian: None. Review of External Notes: None Medications: Albuterol inhaler Cyanocobalamin Nexium Pepcid Robaxin Pamelor Trazodone Remicade Past Medical History: Crohn's disease Graves' disease Past Surgical History: Appendectomy Cholecystectomy Colonoscopy Ileocecal resection Nephrectomy Physical Exam Patient Vitals for the past 24 hrs: BP Temp Pulse Resp SpO2 09/22/23 2200 123/76 -- 75 -- 93 % 09/22/23 210 137/84 -- 76 -- 98 % 09/22/231999 128/73 -- 78 -- 98 % 09/22/23 1930 122/80 -- -- -- 99 % 09/22/231901 -- -- -- -- 98 % 09/22/231900 -- -- -- -- 99 % 09/22/231899 (!) 126/96 -- 75 -- 98 % 09/22/231858 -- -- -- -- 99 % 09/22/231857 -- -- -- -- 98 % 09/22/231856 -- -- -- -- 99 % 09/22/231854 -- -- -- -- 99 % 09/22/231853 -- -- -- -- 99 % 09/22/231852 -- -- -- -- 100 % 09/22/231851 -- -- -- -- 99 % 09/22/231850 -- -- -- -- 99 % 09/22/231849 -- -- -- -- 99 % 09/22/231848 -- -- -- -- 100 % 09/22/231847 -- -- -- -- 98 % 09/22/231846 -- -- -- -- 98 % 09/22/231845 -- -- -- -- 98 % 09/22/231844 -- -- -- -- 98 % 09/22/231842 -- -- -- -- 98 % 09/22/231841 -- -- -- -- 98 % 09/22/231830 -- -- -- -- 96 % 09/22/231829 -- -- -- -- 96 % 09/22/231827 -- -- -- -- 97 % 09/22/231826 -- -- -- -- 97 % 09/22/231825 (!) 138/92 -- 91 -- 98 % 09/22/231824 -- -- -- -- 96 % 09/22/23 1654 (!) 134/91 98.9 ??F (37.2 ??C) 77 20 100 % Physical Exam General: Alert, no acute distress HEENT: Moist mucous membranes. Conjunctiva normal. CV: Skin warm and well perfused Pulm: No acute distress, breathing comfortably GI: Soft, right side/lower abdominal tenderness, nondistended. No guarding. + rebound tenderness MSK: Moving all extremities. No focal areas of edema, erythema Skin: WWP, no rashes, skin color normal, no diaphoresis Psych: Well-appearing, normal affect, regular speech Emergency Department Course Imaging: Abd/pelvis CT, IV contrast only TRAUMA / AAA Final Result IMPRESSION: 1. No acute findings in the abdomen or pelvis. Report per radiology Laboratory: Labs Ordered and Resulted from Time of ED Arrival to Time of ED Departure COMPREHENSIVE METABOLIC PANEL - Abnormal Result Value Sodium 140 Potassium 4.2 Carbon Dioxide (CO2) 25 Anion Gap 11 Urea Nitrogen 7.8 (*) Creatinine 1.03 (*) GFR Estimate 60 (*) Calcium 9.0 Chloride 104 Glucose 100 (*) Alkaline Phosphatase 71 AST 15 ALT 15 Protein Total 7.0 Albumin 4.5 Bilirubin Total 0.7 ROUTINE UA WITH MICROSCOPIC REFLEX TO CULTURE - Abnormal Color Urine Straw Appearance Urine Clear Glucose Urine Negative Bilirubin Urine Negative Ketones Urine Negative Specific Chrisney Urine 1.005 Blood Urine Negative pH Urine 5.0 Protein Albumin Urine Negative Urobilinogen Urine Normal Nitrite Urine Negative Leukocyte Esterase Urine Negative Bacteria Urine Few (*) RBC Urine <1 WBC Urine <1 LACTIC ACID WHOLE BLOOD - Normal Lactic Acid 1.5 CRP INFLAMMATION - Normal CRP Inflammation <3.00 ERYTHROCYTE SEDIMENTATION RATE AUTO - Normal Erythrocyte Sedimentation Rate 6 CBC WITH PLATELETS AND DIFFERENTIAL WBC Count 7.0 RBC Count 4.44 Hemoglobin 13.4 Hematocrit 40.7 MCV 92 MCH 30.2 MCHC 32.9 RDW 14.5 Platelet Count 223 % Neutrophils 74 % Lymphocytes 16 % Monocytes 7 % Eosinophils 1 % Basophils 1 % Immature Granulocytes 1 NRBCs per 100 WBC 0 Absolute Neutrophils 5.3 Absolute Lymphocytes 1.1 Absolute Monocytes 0.5 Absolute Eosinophils 0.1 Absolute Basophils 0.0 Absolute Immature Granulocytes 0.1 Absolute NRBCs 0.0 Emergency Department Course & Assessments: Interventions: Medications ondansetron (ZOFRAN) injection 4 mg (4 mg Intravenous $Given 09/22/231822) hydrOXYzine HCl (ATARAX) tablet 25 mg (has no administration in time range) montelukast (SINGULAIR) tablet 10 mg (has no administration in time range) nortriptyline (PAMELOR) capsule 25 mg (has no administration in time range) traZODone (DESYREL) tablet 200 mg (has no administration in time range) pantoprazole (PROTONIX) EC tablet 40 mg (has no administration in time range) albuterol (PROVENTIL HFA/VENTOLIN HFA) inhaler (has no administration in time range) acetaminophen (TYLENOL) CR tablet 650 mg (has no administration in time range) senna-docusate (SENOKOT-S/PERICOLACE) 8.6-50 MG per tablet 1 tablet (has no administration in time range) Or senna-docusate (SENOKOT-S/PERICOLACE) 8.6-50 MG per tablet 2 tablet (has no administration in time range) ondansetron (ZOFRAN ODT) ODT tab 4 mg (has no administration in time range) Or ondansetron (ZOFRAN) injection 4 mg (has no administration in time range) sodium chloride 0.9 % infusion (has no administration in time range) HYDROmorphone (DILAUDID) half-tab 1 mg (has no administration in time range) HYDROmorphone (DILAUDID) tablet 2 mg (has no administration in time range) HYDROmorphone (DILAUDID) injection 0.2 mg (has no administration in time range) HYDROmorphone (DILAUDID) injection 0.4 mg (has no administration in time range) methylPREDNISolone sodium succinate (solu-MEDROL) injection 62.5 mg (has no administration in time range) sodium chloride 0.9% BOLUS 1,000 mL (0 mLs Intravenous Stopped 09/22/232111) HYDROmorphone (PF) (DILAUDID) injection 0.5 mg (0.5 mg Intravenous $Given 09/22/232121) iopamidol (ISOVUE-370) solution 500 mL (76 mLs Intravenous $Given 09/22/231910) CT scan flush (59 mLs Intravenous $Given 09/22/231910) sodium chloride 0.9% BOLUS 1,000 mL (1,000 mLs Intravenous $New Bag 09/22/232120) Assessments: 1734 I obtained the history and examined the patient as noted above. Independent Interpretation (X-rays, CTs, rhythm strip): None Consultations/Discussion of Management or Tests: ED Course as of 09/22/238 FriSep 22, 20232047 I rechecked and updated the patient. She still has 7/10 pain. We will admit the patient. [address] Pradhan, of the hospitalist team, regarding the patient. They accepted thepatient for admission. Social Determinants of Health affecting care: None Disposition: The patient was admitted to the hospital under the care of Dr. Pradhan. Impression & Plan Medical Decision Makin-year-old female with history of Crohn's disease on Remicade presents emergency department valuation of 1 week of lower abdominal pain with diarrhea. Please above details of HPI and exam. She is afebrile vitally stable. She has lower abdominal tenderness on exam with notable rebound tenderness. Idid consider broad differential including Crohn's flare, gastroenteritis, nonspecific colitis, mesenteric ischemia, amongst other things. UA is normal. The rest of her basic lab studies including herinflammatory markers are normal. CT was obtained without any evidence of any acute findings. Unfortunately, patient continues to have intractable abdominal pain on reassessment despite the interventions provided above. Given her continued pain and IBD history, I feel hospital observation may be of benefit would likely consultation to GI. Patient is comfortable with this plan. Discussed case with the medicine service who accepted the patient for continued monitoring and care. Diagnosis: ICD-10-CM 1. Intractable lower abdominal pain R10.30 2. Diarrhea, unspecified type R19.7 3. History of Crohn's disease Z87.19 Scribe Disclosure: Rachel Ruffin, am serving as a scribe first aid trainer for Concepcion Perez at 7:41 PM on 09/22/2023 to document services personally performed by Eddy Mackay MD based on my observations and the provider's statements to me. Scribe Disclosure: Aida Ruffin, am serving as a scribe at 8:04 PM on 09/22/2023 to document services personally performed by Eddy Mackay MD based on my observations and the provider's statements to me. 09/22/2023 Eddy Mackay MD [place], Edgar Ronald, MD 09/22/23 9338 L POST INSTALLER documented in this encounter Miscellaneous Notes * Plan of Care - Kaylie Gao RN - 09/25/2023 4:27 AM CST Goal Outcome Evaluation: Vital Signs: WNL. Pain/Comfort: Patient rating pain as a 5-8/10. PRN pain medications given per MAR - oxy x3. Heat also applied. Patient encouraged multiple times to call RN if pain gets worse and additional IV pain medications could be given and PIV could be placed. Patient stated an understanding. Assessment: Abdomen soft, rounded and tender. Patient passing gas. Diet: patient tolerating PO intake. Drinking well - not much of an appetite. Output: patient voiding independently. No BMs this shift . Activity/Ambulation: patient up independently in room. OOB encouraged as tolerated. Social: patient calm and cooperative. Plan: Pain control. Monitor VS. Monitor I&O. Encourage PO intake as tolerated. Will continue tomonitor and will notify service with any questions or concerns. Patient reminded multiple time that an PIV could be placed if needed for additional pain medications if pain not adequately controlled with oral pain medications. Patient stated an understanding. L POST INSTALLER * Utilization Review - Nabila Gilbert MD - 09/24/2023 4:00 PM CST [facility] Utilization Review Admission Status; Secondary Review Determination Admission Date: 09/22/2023 5:27 PM Under the authority of the Utilization Management Committee, the utilization review process indicated a secondary review on the above patient. The review outcome is based on review of the medical records, discussions with staff, and applying clinical experience noted on the date of the review. (X) Observation Status Appropriate - This patient does not meet hospital inpatient criteria and is placed in observation status. If this patient's primary payer is Medicare and was admitted as an inpatient, Condition Code 44 should be used and patient status changed to observation. () Observation Status concurrent Review RATIONALE FOR DETERMINATION 63-year-old female with history of Crohn's disease status post ileocecal resection on chronic treatment with Remicade and steroids, tapered, renal cell carcinoma status post right nephrectomy, appendicectomy, cholecystectomy, admitted with diarrhea, abdominal pain, nausea and vomiting, worsening for the past 10 days, found to have low-grade fevers with normal CRP, CT abdomen pelvis unremarkable. Patient was seen by GI team and recommended to change interval of Remicade, after receiving dose this morning with Solu-Medrol and plan for advancing diet and pain control with plan for discharge tomorrow morning, does not meet criteria for inpatient stay, recommend continue observation status The severity of illness, intensity of service provided, expected LOS make the care appropriate for observation status at this time. The information on this document is developed by the utilization review team in order for the business office to ensure compliance. This only denotes the appropriateness of proper admission status and does not reflect the quality of care rendered. Sincerely, Nabila Gilbert MD Physician Advisor Utilization Review-[place] L POST INSTALLER * Plan of Care - Madison Pastor RN - 09/24/2023 11:04 AM CST Shift: 699 - 1929 Goal Outcome Evaluation: Plan of Care reviewed with: patient Overall patient progress: stable Vitals: VSS Pain: PO dilaudid given x3, IV dilaudid given x1 for pain Notable Events: Pt A&O x4, up ind in room with IV pole. Denies dizziness, lightheadedness, n/v/d. Remicade infusion administered, tolerated well. Pt got up to shower, states she had to sit down on the edge of the tub d/t shaking, reports the source as being from pain. PIV access lost after shower, removed PIV and paged MD regarding need for new one to be placed. Pt ambulated in hallways. Plan: monitor VS, manage pain/discomfort, promote rest L POST INSTALLER * Plan of Care - Odalys Yoder RN - 09/24/2023 5:36 AM STEEL POST INSTALLER Goal Outcome Evaluation: Orientation: Alert and oriented x4 VSS. 95% on RA. afebrile. LS: clear and equal bilaterally. GI: denies Passing gas. Loose BMs, intermittently incontinent per pt report. Denies N/V. : Adequate urine output. Skin: intact Activity: Independent. Pt slept comfortably throughout shift. Pain: 5/10 abdominal pain. Well controlled with IV pain medication. Dilaudid x1. Updates/Plan: pain control. Plan for Remicade infusion later today. Continue with current cares. L POST INSTALLER * Plan of Care - Kristin Mabry RN - 09/23/2023 10:50 PM CST Goal Outcome Evaluation: : Hawa is doing well, up independently. Dilaudid and zofran given x1 for abdominal pain 05/18. Went to MRI at the beginning of the shift, tolerated okay per pt. Ate cream of wheat upon return to the floor. Bedtime meds given, resting comfortably currently. NS@100. Plan: provide for comfortand needs, remicade and solumedrol tomorrow, GI following. L POST INSTALLER * Plan of Care - Anju Barrett RN - 09/23/2023 5:48 PM CST Afebrile. Received Dilaudid times one for c/o abdominal pain with relief. Received Compazine times one for c/o nausea with relief.. Abdomen distended. Denies passing flatus. Hypoactive bowel sounds. Abdomen tender in LLQ, RLQ and RUQ. Loose stool times one. Voiding. Up in room independently. Plan: IVF. IV steroids. Pain and nausea control. NPO for MRI this evening. Remicade tomorrow. Encourage ambulation. GI consulting. Monitor and provide for needs. L POST INSTALLER * Provider Notification - Kristin Mabry RN - 09/23/2023 4:10 PM STEEL POST INSTALLER Pt reporting that she has been getting migraines with remicade infusions. At her next outpatient infusion, they were going to prescribe some pre-meds to help mitigate those migraines. Pt hoping thosecan be ordered inpatient before her dose of remicade tomorrow. Called [facility] infusion clinic toinquire what those medications were. Spoke with Lucinda RG who said the pt was to get 10mg claritin the night before and the day of the infusion, along with 40mg IV SoluMedrol before the remicade to decrease risk of migraines. Shiela Dominguez paged [phone] to relay this information and hopefully get premeds ordered before remicade infusion. Awaiting call back. L POST INSTALLER * Plan of Care - Adrianna Lopez RN - 09/23/2023 8:00 AM CST PRIMARY DIAGNOSIS: NURSING - Abdominal Pain OUTPATIENT/OBSERVATION GOALS TO BE MET BEFORE DISCHARGE: ADLs back to baseline: No Activity and level of assistance: Up with standby assistance. Pain status: Improved-controlled with oral pain medications. Return to near baseline physical activity: No Duplicating Machine Operator Nurse Safe discharge environment identified: Yes Barriers to discharge: Yes Entered by: Adrianna Lopez RN 09/23/2023 A&Ox4. VSS. C/o 7/10 abdominal pain. PRN Dilaudid given. C/o nausea. PRN IV Zofran given. No further needs at this time. Please review provider order for any additional goals. Nurse to notify provider when observation goals have been met and patient is ready for discharge. L POST INSTALLER * Plan of Care - Anju Barrett RN - 09/23/2023 6:41 AM CST [facility] ED Boarding Nurse Handoff Addendum Report: Date/time: 09/23/2023, 6:41 AM Activity Level: independent Fall Risk: No Active Infusions: NS @ 100 mL Current Meds Due: 0800 med due Current care needs: pain management, fluid maintenance Oxygen requirements (liters/min and/or FiO2): no Respiratory status: Room air Vital signs (within last 30 minutes): Vitals: 09/22/23 2102 09/22/23 2200 09/23/23 0048 09/23/23 0620 BP: 137/84 123/76 131/83 119/78 BP Location: Right arm Right arm Pulse: 76 75 63 77 Resp: 20 18 Temp: 98.8 ??F (37.1 ??C) 97.6 ??F (36.4 ??C) TempSrc: Oral Oral SpO2: 98% 93% 97% 96% Focused assessment within last 30 minutes: A&Ox4. VSS. Pt reports 8/10 pain, IV PRN dilaudid given. Pt reports of nausea, PRN IV zofran was given. Pt did decline tylenol as she already received dilaudid. Meds given via IV has been causingpain/ burning feeling to pt's veins. Oral medications should just be given. IV meds should be pushed very slow. ED Boarding Nurse name: Geoffrey Bunch RN RECEIVING UNIT ED HANDOFF REVIEW Above ED Nurse Handoff Report was reviewed: Yes Reviewed by: Anju Barrett RN on September 23, 2023 at 11:41 AM L POST INSTALLER * Pharmacy-Admission Medication History - Madison Costa - 09/22/2023 10:51 PM CST [facility] Admission Medication History Admission medication history is complete. The information provided in this note is only as accurateas the sources available at the time of the update. Information Source(s): Patient via in-person Pertinent Information: NA Changes made to [employer] medication list: Added: Dicyclomine, VITAMIN D3, VITAMIN C, Remicade Deleted: norco, hydroxyzine, hydromorphone Changed: None Medication Affordability: Not including over the counter (OTC) medications, was there a time in the past 3 months when you did not take your medications as prescribed because of cost?: No Allergies reviewed with patient and updates made in EHR: yes Medication History Completed By: Madison Igor 09/22/2023 10:51 PM [employer] Med List Medication Sig Last Dose acetaminophen (TYLENOL) 500 MG tablet Take 1-2 tablets (500-1,000 mg) by mouth every 6 hours as needed for mild pain 09/21/2023 acetaminophen (TYLENOL) 650 MG CR tablet Take 650 mg by mouth At Bedtime 09/21/2023 albuterol (PROAIR HFA/PROVENTIL HFA/VENTOLIN HFA) 108 (90 Base) MCG/ACT inhaler Inhale 2 puffs intothe lungs every 6 hours as needed for shortness of breath, wheezing or cough Past Month Bioflavonoid Products (VITAMIN C) CHEW Take 1 tablet by mouth daily 09/21/2023 at AM bisacodyl (DULCOLAX) 10 MG suppository Place 1 suppository (10 mg) rectally 2 times daily as neededfor constipation More than a month cholecalciferol (VITAMIN D3) 10 mcg (400 units) TABS tablet Take 10 mcg by mouth daily 09/21/2023 atAM cyanocobalamin (CYANOCOBALAMIN) 1000 MCG/ML injection Inject 1,000 mcg as directed every 30 days 09/15/2023 dicyclomine (BENTYL) 10 MG capsule Take 10 mg by mouth 4 times daily (before meals and nightly) 09/22/2023 at AM diphenhydrAMINE (BENADRYL) 25 MG capsule Take 1 capsule (25 mg) by mouth every 6 hours as needed for itching or allergies More than a month esomeprazole (NEXIUM) [address] capsule Take 40 mg by mouth 2 times daily (before meals) Take 30-60 minutes before eating. 09/22/2023 at AM famotidine (PEPCID) 40 MG tablet Take 40 mg by mouth At Bedtime 09/21/2023 at PM inFLIXimab (REMICADE IV) Inject 10 mg into the vein once every eight weeks 08/14/2023 medical cannabis (Patient's own supply) Take 1 Dose by mouth See Admin Instructions (The purpose ofthis order is to document that the patient reports taking medical cannabis. This is not a prescription, and is not used to certify that the patient has a qualifying medical condition.) 25 MG EDIBLE 09/21/2023 at PM methocarbamol (ROBAXIN) 500 MG tablet Take 1 tablet (500 mg) by mouth 4 times daily as needed for muscle spasms 09/22/2023 at AM montelukast (SINGULAIR) 10 MG tablet Take 10 mg by mouth At Bedtime 09/21/2023 at PM nortriptyline (PAMELOR) 25 MG capsule Take 25 mg by mouth At Bedtime 09/21/2023 at PM ondansetron (ZOFRAN ODT) 4 MG ODT tab Take 1 tablet (4 mg) by mouth every 8 hours as needed for nausea Past Month traZODone (DESYREL) 100 MG tablet Take 200 mg by mouth At Bedtime 09/21/2023 at PM L POST INSTALLER Associated attestation - Car Kramer RPH - 09/22/2023 11:28 PM STEEL [employer] INSTALLER Reviewed Medication Reconcilliation completed by Poultry Sexer on September 22, 2023 Updated remicade dose from 10mg to 10mg/kg IV [id number] documented in this encounter Plan of Treatment Not on file documented as of this encounter Procedures Procedure Name Priority Date/Time Associated Diagnosis Comments CRP INFLAMMATION Routine 09/25/2023 6:57 AM STEEL POST INSTALLER MR ENTEROGRAPHY W/O AND W CONTRAST Routine 09/23/2023 9:25 PM STEEL POST INSTALLER COMPREHENSIVE METABOLIC PANEL STAT 09/23/2023 8:16 AM STEEL POST INSTALLER CBC WITH PLATELETS STAT 09/23/2023 8: [address] [address] [address] ABDOMEN PELVIS W CONTRAST STAT 09/22/2023 7:20 PM STEEL [employer] INSTALLER CBC WITH PLATELETS AND DIFFERENTIAL STAT 09/22/2023 6:23 PM STEEL [employer] INSTALLER CBC WITH PLATELETS & DIFFERENTIAL STAT 09/22/2023 6:23 PM STEEL POST INSTALLER LACTIC ACID WHOLE BLOOD STAT 09/22/2023 6:23 PM STEEL POST INSTALLER ERYTHROCYTE SEDIMENTATION RATE AUTO STAT 09/22/2023 6:23 PM STEEL POST INSTALLER CRP INFLAMMATION STAT 09/22/2023 6:23 PM STEEL [employer] INSTALLER COMPREHENSIVE METABOLIC PANEL STAT 09/22/2023 6:23 PM STEEL [employer] INSTALLER ROUTINE UA WITH MICROSCOPIC REFLEX TO CULTURE STAT 09/22/2023 6:01 PM STEEL POST INSTALLER documented in this encounter Results * CRP inflammation (09/25/2023 6:57 AM STEEL POST INSTALLER) CRP Inflammation <3.00 <5.00 mg/L 09/25/19 7:39 AM STEEL POST INSTALLER [facility] Blood STRUCTURE OF LEFT UPPER LIMB / Unknown Venipuncture / Unknown 09/25/2023 6:57 AM STEEL POST INSTALLER 09/25/2023 7:10 AM STEEL POST INSTALLER Lukasz Weaver MD LAB - BLOOD ORDERABL ES [facility] [address] Lab (1st floor, no room number) [place] [address], [facility] [phone] * MR Enterography w/o & wContrast (09/23/2023 9:25 PM STEEL POST INSTALLER) Anatomical Region Laterality Modality Abdomen/Pelvis, SUBRAD MR BODY, UMP MR BODY, RAD MR Magnetic Resonance 09/23/2023 9:25 PM STEEL POST INSTALLER Impressions 09/23/2023 9:52 PM STEEL POST INSTALLER IMPRESSION: 1. ??Crohn disease status post ileocecectomy. No imaging signs of active inflammation. 2. ??No extraintestinal manifestations. Narrative 09/23/2023 9:52 PM STEEL POST INSTALLER EXAM: MRI ENTEROGRAPHY/MRI ABDOMEN AND MRI PELVIS WITHOUT AND WITH CONTRAST LOCATION: [facility] DATE: 09/23/2023 INDICATION: History of small bowel [...] AND MRI PELVIS WITHOUT AND WITHCONTRAST LOCATION: [facility] DATE: 09/23/2023 INDICATION: History of small bowel [...] 2. No extraintestinal manifestations. Apolinar Munoz MD IMG MRI ORDERABLES * CBC with platelets (09/23/2023 8:16 AM STEEL POST INSTALLER) WBC Count 6.0 4.0 - 11.0 10e3/uL 09/23/2023 8:26 AM STEEL [employer] INST[employer]ER [facility] RBC Count 4.24 3.80 - 5.20 10e6/uL 09/23/2023 8:26 AM STEEL [employer] INST[employer] [facility] Hemoglobin 12.6 11.7 - 15.7 g/dL 09/23/2023 8:26 AM STEEL [employer] INST[employer] [facility] Hematocrit 38.4 35.0 - 47.0 % 09/23/2023 8:26 AM STEEL [employer] INST[employer]ER [facility] MCV 91 78 - 100 fL 09/23/2023 8:26 AM STEEL [employer] INST[employer]ER [facility] MCH 29.7 26.5 - 33.0 pg 09/23/2023 8:26 AM STEEL POST INSTALLER [facility] MCHC 32.8 31.5 - 36.5 g/dL 09/23/2023 8:26 AM STEEL [employer] INST[employer] [facility] RDW 14.3 10.0 - 15.0 % 09/23/2023 8:26 AM STEEL [employer] INST[employer]ER [facility] Platelet Count 191 150 - 450 10e3/uL 09/23/2023 8:26 AM STEEL POST INSTALLER [facility] Blood STRUCTURE OF RIGHT UPPER LIMB / Unknown Venipuncture / Unknown 09/23/2023 8:16 AM STEEL POST INSTALLER 09/23/2023 8:21 AM STEEL POST INSTALLER Calin A Carolynn DO LAB - BLOOD ORDERABL ES LABORATORY [facility] [address] Lab (1st floor, no room number) [place] [address], [facility] [phone] * (ABNORMAL) Comprehensive metabolic panel (09/23/2023 8:16 AM STEEL POST INSTALLER) [facility] Sodium 139 135 - 145 mmol/L 09/23/2023 8:40 AM [facility] Comment:Reference intervals for this test were updated on 06/03/2023 to more accurately reflect our healthy population. There may be differences in the flagging of prior results with similar values performed with this method. Interpretation of those prior results can be made in the context of the updated reference intervals. Potassium 4.5 3.4 - 5.3 mmol/L 09/23/2023 8:40 AM [facility] Carbon Dioxide (CO2) 24 22 - 29 mmol/L 09/23/2023 8:40 AM [facility] Anion Gap 8 7 - 15 mmol/L 09/23/2023 8:40 AM [facility] Urea Nitrogen 7.1(L) 8.0 - 23.0 mg/dL 09/23/2023 8:40 AM [facility] Creatinine 0.85 0.51 - 0.95 mg/dL 09/23/2023 8:40 AM [facility] GFR Estimate 76 >60 mL/min/1. 73m2 09/23/2023 8:40 AM [facility] Calcium 8.6(L) 8.8 - 10.2 mg/dL 09/23/2023 8:40 AM [facility] Chloride 107 98 - 107 mmol/L 09/23/2023 8:40 AM [facility] Glucose 133(H) 70 - 99 mg/dL 09/23/2023 8:40 AM [facility] Alkaline Phosphatase 64 40 - 150 U/L 09/23/2023 8:40 AM STEEL [employer] INST[employer] [facility] Comment:Reference intervals for this test were updated on 07/22/2023 to more accurately reflect our healthy population. There may be differences in the flagging of prior results with similar values performed with this method. Interpretation of those prior results can be made in the context of the updated reference intervals. AST 16 0 - 45 U/L 09/23/2023 8:40 AM STEEL [employer] INST[employer]ER [facility] Comment:Reference intervals for this test were updated on 02/17/2023 to more accurately reflect our healthy population. There may be differences in the flagging of prior results with similar values performed with this method. Interpretation of those prior results can be made in the context of the updated reference intervals. ALT 11 0 - 50 U/L 09/23/2023 8:40 AM STEEL [employer] INST[employer] [facility] Comment:Reference intervals for this test were updated on 02/17/2023 to more accurately reflect our healthy population. There may be differences in the flagging of prior results with similar values performed with this method. Interpretation of those prior results can be made in the context of the updated reference intervals. Protein Total 6.0(L) 6.4 - 8.3 g/dL 09/23/2023 8:40 AM STEEL [employer] INST[employer] [facility] Albumin 3.9 3.5 - 5.2 g/dL 09/23/2023 8:40 AM STEEL [employer] INST[employer] [facility] Bilirubin Total 0.6 <=1.2 mg/dL 09/23/2023 8:40 AM STEEL [employer] INST[employer] [facility] Blood STRUCTURE OF RIGHT UPPER LIMB / Unknown Venipuncture / Unknown 09/23/2023 8:16 AM STEEL POST INSTALLER 09/23/2023 8:21 AM STEEL POST INSTALLER Calin Pradhan DO LAB - BLOOD ORDERABL ES [facility] [address] [facility] Lab (1st floor, no room number) [place] [address], [facility] [phone] * Abd/pelvis CT, IV contrast only TRAUMA / AAA (09/22/2023 7:20 PM STEEL POST INSTALLER) Anatomical Region Laterality Modality Abdomen/Pelvis, SUBRAD CT TIFFANIE DY, UMP CT ABDOMEN PELVIS, RAD CT Computed Tomography 09/22/2023 7:20 PM STEEL POST INSTALLER Impressions 09/22/2023 7:43 PM STEEL POST INSTALLER IMPRESSION: 1. ??No acute findings in the abdomen or pelvis. Narrative 09/22/2023 7:43 PM STEEL POST INSTALLER EXAM: CT ABDOMEN PELVIS W CONTRAST LOCATION: [facility] DATE: 09/22/2023 INDICATION: Abdominal pain, hx of [...] EXAM: CT ABDOMEN PELVIS W CONTRAST LOCATION: [facility] DATE: 09/22/2023 INDICATION: Abdominal pain, hx of [...] the abdomen or pelvis. Eddy Mackay MD IM CT ORDERABLE S * Erythrocyte sedimentation rate auto (09/22/2023 6:23 PM STEEL POST INSTALLER) Erythrocyte Sedimentation Rate 6 0 - 30 mm/hr 09/22/2023 9:40 PM STEEL [employer] INSTALLER [facility] Blood BLOOD SPECIMEN / Unknown Venipuncture / Unknown 09/22/2023 6:23 PM STEEL POST INSTALLER 09/22/2023 6:32 PM STEEL POST INSTALLER Eddy Mackay MD LAB - BLOOD [facility] LABORATORY [facility] [address] Lab (1st floor, no room number) [place] [address], [facility] [phone] * CRP inflammation (09/22/2023 6:23 PM STEEL POST INSTALLER) CRP Inflammation <3.00 <5.00 mg/L 09/22/19 9:35 PM STEEL POST INSTALLER [facility] Blood BLOOD SPECIMEN / Unknown Venipuncture / Unknown 09/22/2023 6:23 PM STEEL POST INSTALLER 09/22/2023 6:32 PM STEEL POST INSTALLER Eddy Mackay MD LAB - BLOOD [facility] Performing Organization Address City/[facility]/ZIP Co de Phone Number LABORATORY [facility] [address] Lab (1st floor, no room number) [place] [address], [facility] [phone] * CBC with platelets and differential (09/22/2023 6:23 PM STEEL POST INSTALLER) WBC Count 7.0 4.0 - 11.0 10e3/uL 09/22/2023 6:38 PM STEEL [employer] INSTALLER [facility] RBC Count 4.44 3.80 - 5.20 10e6/uL 09/22/2023 6:38 PM STEEL [employer] INST[employer]ER [facility] Hemoglobin 13.4 11.7 - 15.7 g/dL 09/22/2023 6:38 PM STEEL [employer] INST[employer] [facility] Hematocrit 40.7 35.0 - 47.0 % 09/22/2023 6:38 PM STEEL [employer] INST[employer]ER [facility] MCV 92 78 - 100 fL 09/22/2023 6:38 PM STEEL [employer] INSTALLER [facility] MCH 30.2 26.5 - 33.0 pg 09/22/2023 6:38 PM STEEL [employer] INSTALLER [facility] MCHC 32.9 31.5 - 36.5 g/dL 09/22/2023 6:38 PM STEEL [employer] INST[employer]ER [facility] RDW 14.5 10.0 - 15.0 % 09/22/2023 6:38 PM STEEL [employer] INST[employer] [facility] Platelet Count 223 150 - 450 10e3/uL 09/22/2023 6:38 PM STEEL [employer] INST[employer] [facility] % Neutrophils 74 % 09/22/2023 6:38 PM STEEL [employer] INST[employer] [facility] % Lymphocytes 16 % 09/22/2023 6:38 PM STEEL [employer] INST[employer]ER [facility] % Monocytes 7 % 09/22/2023 6:38 PM STEEL [employer] INST[employer] [facility] % Eosinophils 1 % 09/22/2023 6:38 PM STEEL [employer] INSTALLER [facility] % Basophils 1 % 09/22/2023 6:38 PM STEEL [employer] INST[employer] [facility] % Immature Granulocytes 1 % 09/22/2023 6:38 PM STEEL [employer] INST[employer]ER [facility] NRBCs per 100 WBC 0 <1 /100 024 6:38 PM STEEL [employer] INSTALLER [facility] Absolute Neutrophils 5.3 1.6 - 8.3 10e3/uL 09/22/2023 6:38 PM STEEL [employer] INST[employer] [facility] Absolute Lymphocytes 1.1 0.8 - 5.3 10e3/uL 09/22/2023 6:38 PM STEEL [employer] INST[employer]ER [facility] Absolute Monocytes 0.5 0.0 - 1.3 10e3/uL 09/22/2023 6:38 PM STEEL [employer] INSTALLER [facility] Absolute Eosinophils 0.1 0.0 - 0.7 10e3/uL 09/22/2023 6:38 PM STEEL [employer] INSTALLER [facility] Absolute Basophils 0.0 0.0 - 0.2 10e3/uL 09/22/2023 6:38 PM STEEL [employer] INST[employer]ER [facility] Absolute Immature Granulocytes 0.1 <=0.4 10e3/uL 09/22/2023 6:38 PM STEEL [employer] INST[employer]ER [facility] Absolute NRBCs 0.0 10e3/uL 09/22/2023 6:38 PM STEEL [employer] INSTALLER [facility] Blood BLOOD SPECIMEN / Unknown Venipuncture / Unknown 09/22/2023 6:23 PM STEEL POST INSTALLER 09/22/2023 6:32 PM STEEL POST INSTALLER Eddy Mackay MD LAB - BLOOD [facility] [address] [facility] Lab (1st floor, no room number) [place] [address], [facility] [phone] * Lactic acid whole blood (09/22/2023 6:23 PM STEEL POST INSTALLER) Lactic Acid 1.5 0.7 - 2.0 mmol/L 09/22/2023 6:35 PM STEEL [employer] INSTALLER LABORATORY Blood BLOOD SPECIMEN / Unknown Venipuncture / Unknown 09/22/2023 6:23 PM STEEL POST INSTALLER 09/22/2023 6:33 PM STEEL POST INSTALLER Eddy Mackay MD LAB - BLOOD [facility] [address] Lab (1st floor, no room number) [place] [address], [facility] [phone] * (ABNORMAL) Comprehensive metabolic panel (09/22/2023 6:23 PM STEEL POST INSTALLER) Pathologist [facility] Sodium 140 135 - 145 mmol/L 09/22/2023 6:55 PM [facility] Comment:Reference intervals for this test were updated on 06/03/2023 to more accurately reflect our healthy population. There may be differences in the flagging of prior results with similar values performed with this method. Interpretation of those prior results can be made in the context of the updated reference intervals. Potassium 4.2 3.4 - 5.3 mmol/L 09/22/2023 6:55 PM [facility] Carbon Dioxide (CO2) 25 22 - 29 mmol/L 09/22/2023 6:55 PM [facility] Anion Gap 11 7 - 15 mmol/L 09/22/2023 6:55 PM [facility] Urea Nitrogen 7.8(L) 8.0 - 23.0 mg/dL 09/22/2023 6:55 PM [facility] Creatinine 1.03(H) 0.51 - 0.95 mg/dL 09/22/2023 6:55 PM [facility] GFR Estimate 60(L) >60 mL/min/1. 73m2 09/22/2023 6:55 PM [facility] Calcium 9.0 8.8 - 10.2 mg/dL 09/22/2023 6:55 PM [facility] Chloride 104 98 - 107 mmol/L 09/22/2023 6:55 PM [facility] Glucose 100(H) 70 - 99 mg/dL 09/22/2023 6:55 PM STEEL [employer] INST[employer] [facility] Alkaline Phosphatase 71 40 - 150 U/L 09/22/2023 6:55 PM [employer] INST[employer] [facility] Comment:Reference intervals for this test were updated on 07/22/2023 to more accurately reflect our healthy population. There may be differences in the flagging of prior results with similar values performed with this method. Interpretation of those prior results can be made in the context of the updated reference intervals. AST 15 0 - 45 U/L 09/22/2023 6:55 PM STEEL [employer] INST[employer]ER [facility] Comment:Reference intervals for this test were updated on 02/17/2023 to more accurately reflect our healthy population. There may be differences in the flagging of prior results with similar values performed with this method. Interpretation of those prior results can be made in the context of the updated reference intervals. ALT 15 0 - 50 U/L 09/22/2023 6:55 PM STEEL [employer] INST[employer] [facility] Comment:Reference intervals for this test were updated on 02/17/2023 to more accurately reflect our healthy population. There may be differences in the flagging of prior results with similar values performed with this method. Interpretation of those prior results can be made in the context of the updated reference intervals. Protein Total 7.0 6.4 - 8.3 g/dL 09/22/2023 6:55 PM STEEL [employer] INST[employer] [facility] Albumin 4.5 3.5 - 5.2 g/dL 09/22/2023 6:55 PM [employer] IN[employer] [facility] Bilirubin Total 0.7 <=1.2 mg/dL 09/22/2023 6:55 PM STE[employer] INST[employer] [facility] Blood BLOOD SPECIMEN / Unknown Venipuncture / Unknown 09/22/2023 6:23 PM STEEL POST INSTALLER 09/22/2023 6:32 PM STEEL POST INSTALLER Eddy Mackay MD LAB - BLOOD [facility] [address] [facility], no room number) [place] [address], [facility] [phone] * (ABNORMAL) UA with Microscopic reflex to Culture (09/22/2023 6:01 PM STEEL POST INSTALLER) Color Urine Straw Colorless, Straw, Light Yellow, Yellow 09/22/2023 6:11 PM STEEL [employer] INST[employer] [facility] Appearance Urine Clear Clear 09/22/19 6:11 PM STEEL [employer] INST[employer]ER LABORATORY Glucose Urine Negative Negative mg/dL 09/22/2023 6:11 PM STEEL [employer] INST[employer]ER LABORATORY Bilirubin Urine Negative Negative 6:11 PM STEEL [employer] INST[employer]ER LABORATORY Ketones Urine Negative Negative mg/dL 09/22/2023 6:11 PM STEEL [employer] INST[employer]ER LABORATORY Specific Chrisney Urine 1.005 1.003 - 1.035 09/22/2023 6:11 PM STEEL [employer] INST[employer]ER LABORATORY Blood Urine Negative Negative 09/22/2023 6:11 PM [employer] LABORATORY pH Urine 5.0 5.0 - 7.0 09/22/2023 6:11 PM [employer] LABORATORY Protein Albumin Urine Negative Negative mg/dL 09/22/2023 6:11 PM [employer] IN[employer] LABORATORY Urobilinogen Urine Normal Normal, 2.0 mg/dL 09/22/2023 6:11 PM [employer] IN[employer] LABORATORY Nitrite Urine Negative Negative 09/22/2023 6:11 PM [employer] LABORATORY Leukocyte Esterase Urine Negative Negative 09/22/2023 6:11 PM [employer] IN[employer] LABORATORY Bacteria Urine Few(A) None Seen /HPF 09/22/2023 6:11 PM [employer]EL [employer] LABORATORY RBC Urine <1 <=2 /HPF 09/22/2023 6:11 PM [employer] LABORATORY WBC Urine <1 <=5 /HPF 09/22/2023 6:11 PM [employer] INST[employer] LABORATORY Urine URINE SPECIMEN OBTAINED BY CLEAN CATCH PROCEDURE / Unknown Non-blood Collection / Unknown 09/22/2023 6:01 PM STEEL POST INSTALLER 09/22/2023 6:06 PM STEEL POST INSTALLER Narrative LABORATORY - 09/22/2023 6:11 PM STEEL [employer] INSTALLER Urine Culture not indicated Eddy Mackay MD LAB - URINE [facility] LABORATORY [facility] [address] [facility] Lab (1st floor, no room number) [place] [address], [facility] [phone] documented in this encounter Visit Diagnoses Diagnosis History of Crohn's disease- Primary Personal history of unspecified digestive disease Intractable lower abdominal pain Diarrhea, unspecified type History of Crohn's disease Personal history of unspecified digestive disease Acute colitis Other and unspecified noninfectious gastroenteritis and colitis Crohn's disease with complication, unspecified gastrointestinal tract location (H) Abdominal pain, unspecified abdominal location Intractable abdominal pain Abdominal pain, unspecified site Intractable lower abdominal pain Diarrhea, unspecified type documented in this encounter Admitting Diagnoses Diagnosis History of Crohn's disease Personal history of unspecified digestive disease documented in this encounter Administered Medications Inactive Administered Medications - up to 3 most recent administrations Medication Order MAR Action Action Date Dose Rate Site acetaminophen (TYLENOL) tablet 650 mg 650 mg, Oral, AT BEDTIME, First dose on Fri09/23/23 at 0025, Formulary alternate for Tylenol 650mg CR Maximum acetaminophen dose from all sources = 75 mg/kg/day not to exceed 4 grams/day. $Given 09/24/2023 10:34 PM STEEL [employer] INSTALLER 650 mg $Given 09/23/2023 9:46 PM STEEL [employer] INST[employer]ER [address] scan flush Intravenous, 100 mL, ONCE, On Fri09/22/23 at 1915, For 1 dose, This entry is for use by Radiology to intermittently used as a flush in patients receiving a CT scan. $Given 09/22/2023 7:11 PM STEEL [employer] INSTALLER 59 mL s dicyclomine (BENTYL) tablet 20 mg 20 mg, Oral, 4 TIMES DAILY BEFORE MEALS & NIGHTLY, First dose on Fri09/23/23 at 1630, Recommended to take before meals. $Given 09/25/2023 12:33 PM STEEL [employer] INSTALLER 20 mg $Given 09/25/2023 8:35 AM STEEL [employer] INSTALLER 20 mg $Given 09/24/2023 10:34 PM STEEL [employer] INSTALLER 20 mg gadobutrol (GADAVIST) injection 7 mL 7 mL, Intravenous, ONCE, On Fri09/23/23 at 2130, For 1 dose, Supplied by, and administered by MRI. $Given 09/23/2023 9:27 PM STEEL [employer] INSTALLER 7 mLs glucagon injection 1 mg 1 mg, Intravenous, ONCE, On Fri09/23/23 at 2130, For 1 dose $Given 09/23/2023 9:28 PM STEEL [employer] INSTALLER 1 mg HYDROmorphone (DILAUDID) half-tab 1 mg 1 mg, Oral, EVERY 4 HOURS PRN, moderate pain, IF pain not managed with non-pharmacological and non-opioid interventions, Starting on Fri09/22/23 at 2247, May use concomitant with non-opioid analgesics. $Given 09/25/2023 12:42 PM STEEL [employer] INSTALLER 1 mg $Given 09/25/2023 12:33 PM STEEL [employer] INSTALLER 1 mg HYDROmorphone (DILAUDID) injection 0.4 mg 0.4 mg, Intravenous, EVERY 2 HOURS PRN, severe pain, IF patient cannot take oral opioid OR IF pain not managed with non-pharmacological, non-opioid, or oral opioid interventions if ordered, Starting on Fri09/22/23 at 2247, May use concomitant with non-opioid analgesics. $Given 09/24/2023 11:46 AM STEEL [employer] INSTALLER 0.4 mg $Given 09/24/2023 12:09 AM STEEL [employer] INSTALLER 0.4 mg $Given 09/23/2023 7:33 PM STEEL [employer] INST[employer]ER 0.4 mg HYDROmorphone (DILAUDID) tablet 2 mg 2 mg, Oral, EVERY 4 HOURS PRN, severe pain, IF pain not managed with non-pharmacological and non-opioid interventions, Starting on Fri09/22/23 at 2247, May use concomitant with non-opioid analgesics. $Given 09/25/2023 6:37 AM STEEL [employer] INSTALLER 2 mg $Given 09/25/2023 2:20 AM STEEL [employer] INSTALLER 2 mg $Given 09/24/2023 10:34 PM STEEL [employer] INSTALLER 2 mg HYDROmorphone (PF) (DILAUDID) injection 0.5 mg 0.5 mg, Intravenous, EVERY 1 HOUR PRN, severe pain, moderate pain, Starting on Fri09/22/23 at 1742, For 3 doses $Given 09/22/2023 9:22 PM STEEL [employer] INST[employer]ER 0.5 mg $Given 09/22/2023 7:25 PM STEEL [employer] INST[employer]ER 0.5 mg $Given 09/22/2023 6:23 PM STEEL [employer] INST[employer]ER 0.5 mg hydrOXYzine HCl (ATARAX) tablet 25 mg 25 mg, Oral, EVERY 6 HOURS PRN, other, adjuvant pain, Starting on Fri09/22/23 at 2247 $Given 09/25/2023 2:20 AM STEEL [employer] INST[employer]ER 25 mg $Given 09/24/2023 7:41 PM STEEL [employer] INST[employer]ER 25 mg inFLIXimab (REMICADE) 700 mg in sodium chloride 0.9 % 275 mL infusion 700 mg, Intravenous, ONCE, On Fri09/24/23 at 1000, For 1 dose, Administer over [...] breath, dyspnea, wheezing, sneezing, or hives. Dose 700mg = 10 mg/kg Administer through an in-line, sterile, non-pyrogenic, low protein-binding 0.2-0.22 micron filter. $New Bag 09/24/2023 9:54 AM STEEL [employer] INSTALLER 700 mg 137.5 mL/hr iopamidol (ISOVUE-370) solution 500 mL 500 mL, Intravenous, ONCE, On Fri09/22/23 at 1915, For 1 dose $Given 09/22/2023 7:11 PM [employer]EL [employer] IN[employer]ER 76 mLs loratadine (CLARITIN) tablet 10 mg 10 mg, Oral, AT BEDTIME, First dose on Fri09/23/23 at 2200, For 1 dose $Given 09/23/2023 9:47 PM [employer]EL [employer] INST[employer]ER 10 mg loratadine (CLARITIN) tablet 10 mg 10 mg, Oral, EVERY MORNING, First dose on Fri09/24/23 at 0800, For 1 dose $Given 09/24/2023 7:56 AM [employer]EL [employer] INST[employer]ER 10 mg LORazepam (ATIVAN) tablet 0.5 mg 0.5 mg, Oral, EVERY 4 HOURS PRN, anxiety, prior to MRI, Starting on Fri09/23/23 at 1409 $Given 09/23/2023 6:58 PM STEEL [employer] INST[employer]ER 0.5 mg methylPREDNISolone sodium succinate (solu-MEDROL) injection 62.5 mg 62.5 mg (rounded from 60 mg), Intravenous, DAILY, First dose on Fri09/22/23 at 2250, Doses greater than or equal to 1000 mg administer over 60 minutes Doses greater than or equal to 500 mg administer over 30-60 minutes Doses greater than or equal to 250 mg administer over 15-30 minutes Doses less than or equal to 125 mg IVP over 3-5 minutes $Given 09/24/2023 7:56 AM [employer] 62.5 mg $Given 09/23/2023 9:31 AM [employer] 62.5 mg $Given 09/23/2023 12:08 AM [employer] 62.5 mg montelukast (SINGULAIR) tablet 10 mg 10 mg, Oral, AT BEDTIME, First dose on Fri09/23/23 at 0020 $Given 09/24/2023 10:34 PM [employer] 10 mg $Given 09/23/2023 9:47 PM [employer] 10 mg $Given 09/23/2023 12:33 AM [employer] 10 mg naloxone (NARCAN) injection 0.2 mg 0.2 mg, Intravenous, EVERY 2 MIN PRN, opioid reversal, Starting on Fri09/23/23 at 1604, Administer intravenous route when available and notify [...] 2 MIN PRN, opioid reversal, Starting on Fri09/23/23 at 1604, Administer intramuscular if an intravenous route is [...] 2 MIN PRN, opioid reversal, Starting on Fri09/23/23 at 1604, Administer intravenous route when available and notify [...] 2 MIN PRN, opioid reversal, Starting on Fri09/23/23 at 1604, Administer intramuscular if an intravenous route is [...] mg, Oral, AT BEDTIME, First dose on Fri09/23/23 at 0025 $Given 09/24/2023 10:34 PM [employer] 25 mg $Given 09/23/2023 9:47 PM [employer] 25 mg $Given 09/23/2023 12:32 AM [employer] 25 mg ondansetron (ZOFRAN ODT) ODT tab 4 mg 4 mg, Oral, EVERY 6 HOURS PRN, nausea, vomiting, Starting on Fri09/22/23 at 2247, This is Step 1 of nausea and vomiting management. If nausea not resolved in 15 minutes, go to Step 2 prochlorperazine (COMPAZINE). With dry hands, peel back foil backing and gently remove tablet. Do not push oral disintegrating tablet through foil backing. Administer immediately on tongue and oral disintegrating tablet dissolves in seconds, then swallow with saliva. Liquid not required. $Given 09/25/2023 8:44 AM [employer] 4 mg $Given 09/24/2023 2:25 PM [employer] 4 mg $Given 09/23/2023 12:32 AM [employer] 4 mg ondansetron (ZOFRAN) injection 4 mg 4 mg, Intravenous, EVERY 15 MIN PRN, nausea, up to three doses, Administer over 2-5 Minutes, Starting on Fri09/22/23 at 1742, Irritant. $Given 09/22/2023 6:23 PM [employer] 4 mg ondansetron (ZOFRAN) injection 4 mg 4 mg, Intravenous, EVERY 6 HOURS PRN, nausea, vomiting, Administer over 2-5 Minutes, Starting on Fri09/22/23 at 2247, Give IF patient unable to tolerate oral medication. This is Step 1 of nausea and vomiting management. If nausea not resolved in 15 minutes, go to Step 2 prochlorperazine (COMPAZINE). Irritant. $Given 09/23/2023 7:34 PM [employer] 4 mg $Given 09/23/2023 9:50 AM [employer] 4 mg pantoprazole (PROTONIX) EC tablet 40 mg 40 mg, Oral, EVERY MORNING BEFORE BREAKFAST, First dose on Fri09/23/23 at 0730, This therapy was substituted for esomeprazole (NEXIUM) 40 mg every morning before breakfast. $Given 09/25/2023 8:35 AM [employer] 40 mg $Given 09/24/2023 7:56 AM [employer] 40 mg $Given 09/23/2023 9:31 AM [employer] 40 mg prochlorperazine (COMPAZINE) injection 5 mg 5 mg, Intravenous, EVERY 6 HOURS PRN, nausea, vomiting, Administer over 1-2 Minutes, Starting on Fri09/23/23 at 1428 $Given 09/23/2023 2:51 PM [employer] 5 mg prochlorperazine (COMPAZINE) suppository 25 mg 25 mg, Rectal, EVERY 12 HOURS PRN, nausea, vomiting, Starting on Fri09/23/23 at 1428 prochlorperazine (COMPAZINE) tablet 5 mg 5 mg, Oral, EVERY 6 HOURS PRN, nausea, vomiting, Starting on Fri09/23/23 at 1428 senna-docusate (SENOKOT-S/PERICOLACE) 8.6-50 MG per tablet 1 tablet 1 tablet, Oral, 2 TIMES DAILY PRN, constipation, Starting on Fri09/22/23 at 2247, If no bowel movement in 24 hours, increase to 2 tablets by mouth. IF more than 1 constipation PRN medication is ordered, administer step-walsh as indicated, moving to the next step ONLY if prior step ineffective. Step 1: senna-docusate (SENOKOT-S; PERICOLACE) OR bisacodyl (DULCOLAX) EC tablet Step 2: polyethylene glycol (MIRALAX/GLYCOLAX) Step 3: bisacodyl (DULCOLAX) suppository Step 4: enema Hold for loose stools. $Given 09/25/2023 8:48 AM [employer] 1 tablet senna-docusate (SENOKOT-S/PERICOLACE) 8.6-50 MG per tablet 2 tablet 2 tablet, Oral, 2 TIMES DAILY PRN, constipation, Starting on Fri09/22/23 at 2247, IF more than 1 constipation PRN medication is ordered, administer step-walsh as indicated, moving to the next step ONLY if prior step ineffective. Step 1: senna-docusate (SENOKOT-S; PERICOLACE) OR bisacodyl (DULCOLAX) EC tablet Step 2: polyethylene glycol (MIRALAX/GLYCOLAX) Step 3: bisacodyl (DULCOLAX) suppository Step 4: enema Hold for loose stools. simethicone (MYLICON) chewable tablet 80 mg 80 mg, Oral, EVERY 6 HOURS PRN, cramping, Starting on Fri09/25/23 at 0643 $Given 09/25/2023 8:35 AM [employer] 80 mg sodium chloride 0.9 % infusion at 100 mL/hr, Intravenous, CONTINUOUS, Starting on Fri09/22/23 at 2250, Until Fri09/24/23 at 1928 $New Bag 09/24/2023 9:25 AM [employer] 100 mL/hr Rate/Dose Verify 09/24/2023 8:00 AM [employer] 100 mL/ hr $New Bag 09/23/2023 11:27 PM [employer] 100 mL/hr sodium chloride 0.9% BOLUS 1,000 mL Intravenous, 1,000 mL, ONCE, at 1,000 mL/hr, Administer over 1 Hours, On Fri09/22/23 at 1745, For 1 dose $New Bag 09/22/2023 6:22 PM [employer] 1,000 mLs 1000 mL/hr sodium chloride 0.9% BOLUS 1,000 mL Intravenous, 1,000 mL, ONCE, at 1,000 mL/hr, Administer over 1 Hours, On Fri09/22/23 at 2105, For 1 dose $New Bag 09/22/2023 9:21 PM [employer] 1,000 mLs 1000 mL/hr traZODone (DESYREL) tablet 200 mg 200 mg, Oral, AT BEDTIME, First dose on Fri09/23/23 at 0025 $Given 09/24/2023 10:34 PM [employer] 200 mg $Given 09/23/2023 9:46 PM [employer] 200 mg $Given 09/23/2023 12:32 AM [employer] 200 mg documented in this encounter Active and Recently Administered Medications Times are shown in [employer]. Scheduled Medication Order 09/23/2023 09/24/2023 09/25/2023 acetaminophen (TYLENOL) tablet 650 mg 650 mg, Oral, AT BEDTIME, First dose on Fri09/23/23 at 0025, Formulary alternate for Tylenol 650mg CR Maximum acetaminophen dose from all sources = 75 mg/kg/day not to exceed 4 grams/day. 0040 (Not Given - Provider: Geoffrey Bunch RN - Reason: Patient/family refused)2146 ($Given - Provider: Kristin R Mabry, RN) 2234 ($Given - Provider: Kaylie Gao, IFRAH) dicyclomine (BENTYL) tablet 20 mg 20 mg, Oral, 4 TIMES DAILY BEFORE MEALS & NIGHTLY, First dose on Fri09/23/23 at 1630, Recommended to take before meals. 1654 ($Given - Provider: Anju Barrett RN)2147 ($Given - Provider: Kristin Mabry RN) 0756 ($Given - Provider: Madison Pastor, RN)1149 ($Given - Provider: Madison Pastor, RN)1700 ($Given - Provider: Madison Pastor, RN)2234 ($Given - Provider: Kaylie Gao, IFRAH) 0835 ($Given - Provider: Destini Koch, IFRAH)1233 ($Given - Provider: Destini Koch, IFRAH) gadobutrol (GADAVIST) injection 7 mL (COMPLETED) 7 mL, Intravenous, ONCE, On Fri09/23/23 at 2130, For 1 dose, Supplied by, and administered by MRI. 2126 ($Given - Provider: Aashish Stuart) glucagon injection 1 mg (COMPLETED) 1 mg, Intravenous, ONCE, On Fri09/23/23 at 2130, For 1 dose 2127 ($Given - Provider: Aashish Stuart) inFLIXimab (REMICADE) 700 mg in sodium chloride 0.9 % 275 mL infusion (COMPLETED) 700 mg, Intravenous, ONCE, On Fri09/24/23 at 1000, For 1 dose, Administer over [...] breath, dyspnea, wheezing, sneezing, or hives. Dose 700mg = 10 mg/kg Administer through an in-line, sterile, non-pyrogenic, low protein-binding 0.2-0.22 micron filter. 0996 ($New Bag - Provider: Madison Pastor RN) loratadine (CLARITIN) tablet 10 mg (COMPLETED) 10 mg, Oral, AT BEDTIME, First dose on Fri09/23/23 at 2200, For 1 dose 2146 ($Given - Provider: Kristin Mabry RN) loratadine (CLARITIN) tablet 10 mg (COMPLETED) 10 mg, Oral, EVERY MORNING, First dose on Fri09/24/23 at 0800, For 1 dose 075 ($Given - Provider: Madison Pastor RN) methylPREDNISolone sodium succinate (solu-MEDROL) injection 62.5 mg (CANCELED) 62.5 mg (rounded from 60 mg), Intravenous, DAILY, First dose on Fri09/22/23 at 2250, Doses greater than or equal to 1000 mg administer over 60 minutes Doses greater than or equal to 500 mg administer over 30-60 minutes Doses greater than or equal to 250 mg administer over 15-30 minutes Doses less than or equal to 125 mg IVP over 3-5 minutes 0008 ($Given - Provider: Geoffrey Bunch RN)0931 ($Given - Provider: Adrianna Lopez RN) 0756 ($Given - Provider: Madison Pastor RN) montelukast (SINGULAIR) tablet 10 mg 10 mg, Oral, AT BEDTIME, First dose on Fri09/23/23 at 0020 0033 ($Given - Provider: Geoffrey Bunch RN)214 ($Given - Provider: Kristin Mabry, IFRAH) 2234 ($Given - Provider: Kaylie Gao, IFRAH) nortriptyline (PAMELOR) capsule 25 mg 25 mg, Oral, AT BEDTIME, First dose on Fri09/23/23 at 0025 0032 ($Given - Provider: Geoffrey Bunch RN)214 ($Given - Provider: Kristin Mabry, IFRAH) 223 ($Given - Provider: Kaylie Gao RN) pantoprazole (PROTONIX) EC tablet 40 mg 40 mg, Oral, EVERY MORNING BEFORE BREAKFAST, First dose on Fri09/23/23 at 0730, This therapy was substituted for esomeprazole (NEXIUM) 40 mg every morning before breakfast. 0931 ($Given - Provider: Adrianna Lopez RN) 0756 ($Given - Provider: Madison Pastor RN) 0835 ($Given - Provider: Destini Koch, IFRAH) traZODone (DESYREL) tablet 200 mg 200 mg, Oral, AT BEDTIME, First dose on Fri09/23/23 at 0025 0032 ($Given - Provider: Geoffrey Bunch RN)2146 ($Given - Provider: Kristin Mabry RN) 2234 ($Given - Provider: Kaylie Gao RN) Continuous Medication Order 09/23/2023 09/24/2023 09/25/2023 sodium chloride 0.9 % infusion (CANCELED) at 100 mL/hr, Intravenous, CONTINUOUS, Starting on Fri09/22/23 at 2250, Until Fri09/24/23 at 1928 0009 ($New Bag - Provider: Geoffrey Bunch RN)0343 (Rate/Dose Verify - Provider: Geoffrey Bunch RN)0559 (Rate/Dose Verify - Provider: Geoffrey Bunch RN)0930 (Rate/Dose Verify - Provider: Adrianna Lopez RN)1008 ($New Bag - Provider: See Milton RN)1210 (Rate/Dose Verify - Provider: Adrianna Lopez RN)2327 ($New Bag - Provider: Kristin aMbry RN) 0800 (Rate/Dose Verify - Provider: Madison Pastor RN)0925 ($New Bag - Provider: Madison Pastor RN)0954 (Stopped - Provider: Madison Pastor RN - Comment: coinciding with remicade) PRN Medication Order 09/23/2023 09/24/2023 09/25/2023 albuterol (PROVENTIL HFA/VENTOLIN HFA) inhaler 2 puff, Inhalation, EVERY 6 HOURS PRN, shortness of breath, wheezing, cough, Starting on Fri09/22/23 at 2247, Check the dose counter on the inhaler to ensure there are doses remaining before administering. Prime by spraying into the air 4 times prior to first use and if not used within 2 weeks. HYDROmorphone (DILAUDID) half-tab 1 mg 1 mg, Oral, EVERY 4 HOURS PRN, moderate pain, IF pain not managed with non-pharmacological and non-opioid interventions, Starting on Fri09/22/23 at 2247, May use concomitant with non-opioid analgesics. 1233 ($Given - Provider: Destini Koch RN)1242 ($Given - Provider: Destini Koch RN - Comment: Pulled 2 1/2 tablets to total 2 mg as is ordered on a different order.) HYDROmorphone (DILAUDID) injection 0.2 mg 0.2 mg, Intravenous, EVERY 2 HOURS PRN, moderate pain, IF patient cannot take oral opioid OR IF pain not managed with non-pharmacological, non-opioid, or oral opioid interventions if ordered, Starting on Fri09/22/23 at 2247, May use concomitant with non-opioid analgesics. HYDROmorphone (DILAUDID) injection 0.4 mg 0.4 mg, Intravenous, EVERY 2 HOURS PRN, severe pain, IF patient cannot take oral opioid OR IF pain not managed with non-pharmacological, non-opioid, or oral opioid interventions if ordered, Starting on Fri09/22/23 at 2247, May use concomitant with non-opioid analgesics. 0008 ($Given - Provider: Geoffrey Bunch RN)0351 ($Given - Provider: Geoffrey Bunch RN)1307 ($Given - Provider: Anju Barrett RN)1933 ($Given - Provider: Kristin Mabry RN) 0009 ($Given - Provider: Odalys Rodas RN)1146 ($Given - Provider: Madisno Pastor, IFRAH) HYDROmorphone (DILAUDID) tablet 2 mg 2 mg, Oral, EVERY 4 HOURS PRN, severe pain, IF pain not managed with non-pharmacological and non-opioid interventions, Starting on Fri09/22/23 at 2247, May use concomitant with non-opioid analgesics. 0945 ($Given - Provider: Adrianna Lopez RN) 0756 ($Given - Provider: Madison Pastor RN)1422 ($Given - Provider: Madison Pastor RN)1827 ($Given - Provider: Sheldon Lee RN)2234 ($Given - Provider: Kaylie Gao RN) 0220 ($Given - Provider: Kaylie Gao RN)0637 ($Given - Provider: Kaylie Gao RN) hydrOXYzine HCl (ATARAX) tablet 25 mg 25 mg, Oral, EVERY 6 HOURS PRN, other, adjuvant pain, Starting on Fri09/22/23 at 2247 1941 ($Given - Provider: Kaylie Gao RN) 0220 ($Given - Provider: Kaylie Gao RN) LORazepam (ATIVAN) tablet 0.5 mg 0.5 mg, Oral, EVERY 4 HOURS PRN, anxiety, prior to MRI, Starting on Fri09/23/23 at 1409 1858 ($Given - Provider: Anju Barrett RN) naloxone (NARCAN) injection 0.2 mg(Linked Group 1) 0.2 mg, Intravenous, EVERY 2 MIN PRN, opioid reversal, Starting on Fri09/23/23 at 1604, Administer intravenous route when available and notify [...] 2 MIN PRN, opioid reversal, Starting on Fri09/23/23 at 1604, Administer intramuscular if an intravenous route is [...] 2 MIN PRN, opioid reversal, Starting on Fri09/23/23 at 1604, Administer intravenous route when available and notify [...] 2 MIN PRN, opioid reversal, Starting on Fri09/23/23 at 1604, Administer intramuscular if an intravenous route is [...] 6 HOURS PRN, nausea, vomiting, Starting on Fri09/22/23 at 2247, This is Step 1 of nausea and vomiting management. If nausea not resolved in 15 minutes, go to Step 2 prochlorperazine (COMPAZINE). With dry hands, peel back foil backing and gently remove tablet. Do not push oral disintegrating tablet through foil backing. Administer immediately on tongue and oral disintegrating tablet dissolves in seconds, then swallow with saliva. Liquid not required. 0032 ($Given - Provider: Geoffrey Bunch RN)0950 (See Alternative - Provider: Adrianna Lopez RN)193 (See Alternative - Provider: Kristin Mabry, IFRAH) 1425 ($Given - Provider: Madison Pastor, IFRAH) 0844 ($Given - Provider: Destini Koch, IFRAH) ondansetron (ZOFRAN) injection 4 mg(Linked Group 2) 4 mg, Intravenous, EVERY 6 HOURS PRN, nausea, vomiting, Administer over 2-5 Minutes, Starting on Fri09/22/23 at 2247, Give IF patient unable to tolerate oral medication. This is Step 1 of nausea and vomiting management. If nausea not resolved in 15 minutes, go to Step 2 prochlorperazine (COMPAZINE). Irritant. 0032 (See Alternative - Provider: Geoffrey Bunch RN)0950 ($Given - Provider: Adrianna Lopez RN)193 ($Given - Provider: Kristin Mabry, IFRAH) 1425 (See Alternative - Provider: Madison Pastor, IFRAH) 0844 (See Alternative - Provider: Destini Koch, IFRAH) prochlorperazine (COMPAZINE) injection 5 mg(Linked Group 3) 5 mg, Intravenous, EVERY 6 HOURS PRN, nausea, vomiting, Administer over 1-2 Minutes, Starting on Fri09/23/23 at 1428 1451 ($Given - Provider: Anju Barrett RN) prochlorperazine (COMPAZINE) suppository 25 mg(Linked Group 3) 25 mg, Rectal, EVERY 12 HOURS PRN, nausea, vomiting, Starting on Fri09/23/23 at 1428 1451 (See Alternative - Provider: Anju Barrett RN) prochlorperazine (COMPAZINE) tablet 5 mg(Linked Group 3) 5 mg, Oral, EVERY 6 HOURS PRN, nausea, vomiting, Starting on Fri09/23/23 at 1428 1451 (See Alternative - Provider: Anju Barrett RN) senna-docusate (SENOKOT-S/PERICOLACE) 8.6-50 MG per tablet 1 tablet(Linked Group 4) 1 tablet, Oral, 2 TIMES DAILY PRN, constipation, Starting on Fri09/22/23 at 2247, If no bowel movement in 24 hours, increase to 2 tablets by mouth. IF more than 1 constipation PRN medication is ordered, administer step-walsh as indicated, moving to the next step ONLY if prior step ineffective. Step 1: senna-docusate (SENOKOT-S; PERICOLACE) OR bisacodyl (DULCOLAX) EC tablet Step 2: polyethylene glycol (MIRALAX/GLYCOLAX) Step 3: bisacodyl (DULCOLAX) suppository Step 4: enema Hold for loose stools. 0848 ($Given - Provider: Destini Koch RN) senna-docusate (SENOKOT-S/PERICOLACE) 8.6-50 MG per tablet 2 tablet(Linked Group 4) 2 tablet, Oral, 2 TIMES DAILY PRN, constipation, Starting on Fri09/22/23 at 2247, IF more than 1 constipation PRN medication is ordered, administer step-walsh as indicated, moving to the next step ONLY if prior step ineffective. Step 1: senna-docusate (SENOKOT-S; PERICOLACE) OR bisacodyl (DULCOLAX) EC tablet Step 2: polyethylene glycol (MIRALAX/GLYCOLAX) Step 3: bisacodyl (DULCOLAX) suppository Step 4: enema Hold for loose stools. 0848 (See Alternative - Provider: Destini Koch, IFRAH) simethicone (MYLICON) chewable tablet 80 mg 80 mg, Oral, EVERY 6 HOURS PRN, cramping, Starting on Betty 09/25/23 at 0643 0835 ($Given - Provider: Destini Koch RN) Linked Groups Order Group 1: naloxone (NARCAN) injection 0.2 mgJump to med 0.2 mg, Intravenous, EVERY 2 MIN PRN, opioid reversal, Starting on Fri09/23/23 at 1604, Administer intravenous route when available and notify [...] 2 MIN PRN, opioid reversal, Starting on Fri09/23/23 at 1604, Administer intravenous route when available and notify [...] 2 MIN PRN, opioid reversal, Starting on Fri09/23/23 at 1604, Administer intramuscular if an intravenous route is [...] 2 MIN PRN, opioid reversal, Starting on Fri09/23/23 at 1604, Administer intramuscular if an intravenous route is [...] 6 HOURS PRN, nausea, vomiting, Starting on Fri09/22/23 at 2247, This is Step 1 of [...] vomiting, Administer over 2-5 Minutes, Starting on Fri09/22/23 at 2247, Give IF patient unable to tolerate oral medication. This is Step 1 of nausea and vomiting management. If nausea not resolved in 15 minutes, go to Step 2 prochlorperazine (COMPAZINE). Irritant. Group 3: prochlorperazine (COMPAZINE) injection 5 mgJump to med 5 mg, Intravenous, EVERY 6 HOURS PRN, nausea, vomiting, Administer over 1-2 Minutes, Starting on Fri09/23/23 at 1428 Or prochlorperazine (COMPAZINE) tablet 5 mgJump to med 5 mg, Oral, EVERY 6 HOURS PRN, nausea, vomiting, Starting on Fri09/23/23 at 1428 Or prochlorperazine (COMPAZINE) suppository 25 mgJump to med 25 mg, Rectal, EVERY 12 HOURS PRN, nausea, vomiting, Starting on Fri09/23/23 at 1428 Group 4: senna-docusate (SENOKOT-S/PERICOLACE) 8.6-50 MG per tablet 1 tabletJump to med 1 tablet, Oral, 2 TIMES DAILY PRN, constipation, Starting on Fri09/22/23 at 2247, If no bowel movement in 24 hours, increase to 2 tablets by mouth. IF more than 1 constipation PRN medication is ordered, administer step-walsh as indicated, moving to the next step ONLY if prior step ineffective. Step 1: senna-docusate (SENOKOT-S; PERICOLACE) OR bisacodyl (DULCOLAX) EC tablet Step 2: polyethylene glycol (MIRALAX/GLYCOLAX) Step 3: bisacodyl (DULCOLAX) suppository Step 4: enema Hold for loose stools. Or senna-docusate (SENOKOT-S/PERICOLACE) 8.6-50 MG per tablet 2 tabletJump to med 2 tablet, Oral, 2 TIMES DAILY PRN, constipation, Starting on Fri09/22/23 at 2247, IF more than 1 constipation PRN medication is ordered, administer step-walsh as indicated, moving to the next step ONLY if prior step ineffective. Step 1: senna-docusate (SENOKOT-S; PERICOLACE) OR bisacodyl (DULCOLAX) EC tablet Step 2: polyethylene glycol (MIRALAX/GLYCOLAX) Step 3: bisacodyl (DULCOLAX) suppository Step 4: enema Hold for loose stools. documented in this encounter Additional Health Concerns Infection Onset Date Last Indicated Resolved Time Rule Out C-difficile 09/22/2023 09/22/2023 024 10:33 PM [employer] documented as of this encounter Care Teams P[employer] Relationship Specialty Start Date End Date Andrew Israel PA-C [address] [place] [address] PCP - General 05/15/23 documented as of this encounter
--- OUTSIDE RECORDS SUMMARY | 2023-10-20 07:44 | XMS_ITS | Encounter Summary ---
Author Name Unknown Organization [facility] Address [address] [place] [address] Care Team Providers Care Manager Logistic Name Role Phone Andrew Israel PA-C Primary Care Provider [phone] Reason for Visit * Reason Comments Diarrhea Encounter Details Date Type Department Care Team ([facility] st Contact Info) Description 08/07/2023 4:15 PM GEOINT ANALYST - 08/07/2023 8:41 PM GEOINT ANALYST Emergency [facility] Emergency Dept [address] [place] [address] Car Paris MD [facility] [address] [place] [address] [place] [id number] Crohn's disease of colon without complication (H) [...] Comments Blood Pressure 142/92 08/07/2023 7:17 PM GEOINT ANALYST Pulse 92 08/07/2023 2:20 PM GEOINT ANALYST Temperature 36.1 ??C (97 ??F) 08/07/2023 2:20 PM GEOINT ANALYST Respiratory Rate 18 08/07/2023 2:20 PM GEOINT ANALYST Oxygen Saturation 99% 08/07/2023 7:20 PM GEOINT ANALYST Inhaled Oxygen Concentration - - Weight - - Height - - Body Mass Index - - documented in this encounter Discharge Instructions * Discharge Instructions* Car Paris MD - 08/07/2023 7:40 PM GEOINT ANALYST We will call you to try to arrange close follow-up for you early next week. You should take 40 mg of prednisone to help treat your flare, you should return here if she develop worsening pain, high fever or significant bloody stool. NT ANALYST documented in this encounter Medications at Time [...] At Bedtime 0 methocarbamol (ROBAXIN) 500 MG tabletIndications:RLQ abdominal [...] 5 days 10 tablet 0 08/07/2023 3 diphenhydrAMINE (BENADRYL) 25 MG capsule Take 1 capsule (25 mg) by mouth every 6 hours as needed for itching or allergies 30 capsule 0 05/15/2023 4 HYDROcodone-acetaminop hen (NORCO) 5-325 MG tabletIndications:Acut e colitis,Crohn's disease with complication, unspecified gastrointestinal tract location (H),Abdominal pain, unspecified abdominal location Take 1-2 tablets by mouth every 6 hours as needed for severe pain (max acetaminophen (4 gram a day including tylenol)) 20 tablet 0 06/22/2023 4 hydrOXYzine (ATARAX) 25 MG tabletIndications:Acut e colitis,Crohn's disease with complication, unspecified gastrointestinal tract location (H),Abdominal pain, unspecified abdominal location Take 1 tablet (25 mg) by mouth every 6 hours as needed for other (adjuvant pain) 20 tablet 0 06/22/2023 4 documented as of this encounter ED Notes * Irma Rice RN - 08/07/2023 2:21 PM CST Pt here for diarrhea, nausea, and vomiting. Hx of crohn's and usually flares shortly before her next Remicade infusion which is scheduled for next week. NT ANALYST * Car Paris MD - 08/07/2023 2:14 [...] She was recently on steroids during her rejjnhouv04/9-06/22 and was discharged home with them. Independent [...] BP Temp Temp src Pulse Resp SpO2 08/07/230 -- -- -- -- -- 99 % 08/07/23 1917 (!) 142/92 -- -- -- -- -- [...] Bilirubin Urine Negative Ketones Urine Negative Specific [place] Urine 1.006 Blood Urine Negative pH Urine [...] [address] Sheriff of [facility] regarding the patient's history and presentation in the emergency department today. Social Determinants of Health affecting care: None Disposition: The patient was discharged to home. Impression & Plan [facility] Diagnoses: None Medical Decision Makin-year-old woman past [...] MD Dunbar, John Forrest, MD 08/08/23 0015 NT ANALYST documented in this encounter Plan of Treatment Not on file documented as of this encounter Procedures Procedure Name Priority Date/Time Associated Diagnosis Comments CT ABDOMEN PELVIS W CONTRAST STAT 08/07/2023 6:19 PM GEOINT ANALYST ROUTINE UA WITH MICROSCOPIC STAT 08/07/2023 5:26 PM GEOINT ANALYST CBC WITH PLATELETS AND DIFFERENTIAL STAT 08/07/2023 3:05 PM GEOINT ANALYST CBC WITH PLATELETS & DIFFERENTIAL STAT 08/07/2023 3:05 PM GEOINT ANALYST COMPREHENSIVE METABOLIC PANEL STAT 08/07/2023 3:05 PM GEOINT ANALYST documented in this encounter Results * Abd/pelvis CT, IV contrast only TRAUMA / AAA (08/07/2023 6:19 PM GEOINT ANALYST) Anatomical Region Laterality Modality Abdomen/Pelvis, SUBRAD CT TIFFANIE DY, UMP CT ABDOMEN PELVIS, RAD CT Computed Tomography 08/07/2023 6:19 PM GEOINT ANALYST Impressions 08/07/2023 6:53 PM GEOINT ANALYST IMPRESSION: 1. ??Mild acute colitis of the rectum and residual colon, improved from prior. 2. ??Ileocolic resection. 3. ??Right nephrectomy. 4. ??Hysterectomy. 5. ??Cholecystectomy. Narrative 08/07/2023 6:53 PM GEOINT ANALYST EXAM: CT ABDOMEN PELVIS W CONTRAST LOCATION: [facility] DATE: 08/07/2023 INDICATION: Right lower quadrant pain; [...] pelvic lymphadenopathy. VASCULATURE: No abdominal aortic aneurysm. Yozq-pd-[id number] atheromatous disease. MUSCULOSKELETAL: No suspicious abnormality. OTHER: No additionally significant abnormalities. Procedure Note Stan Meehan MD - 08/07/2023 EXAM: CT ABDOMEN PELVIS W CONTRAST LOCATION: [facility] DATE: 08/07/2023 INDICATION: Right lower quadrant pain; [...] pelvic lymphadenopathy. VASCULATURE: No abdominal aortic aneurysm. [id number]-[id number] atheromatousdisease. MUSCULOSKELETAL: No suspicious abnormality. OTHER: No additionally significant abnormalities. IMPRESSION: 1. Mild acute colitis of the rectum and residual colon, improved fromprior. 2. Ileocolic resection. 3. Right nephrectomy. 4. Hysterectomy. 5. Cholecystectomy. Car Paris MD [facility] [place] * (ABNORMAL) UA with Microscopic (08/07/2023 5:26 PM GEOINT ANALYST) Color Urine Light Yellow Colorless, Straw, Light Yellow, Yellow 08/07/2023 5:42 PM GEOINT ANALYST [facility] Appearance Urine Clear Clear 08/07/20 23 5:42 PM GEOINT ANALYST [facility] Glucose Urine Negative Negative mg/dL 08/07/2023 5:42 PM GEOINT ANALYST [facility] Bilirubin Urine Negative Negative 3 5:42 PM GEOINT ANALYST [facility] Ketones Urine Negative Negative mg/dL 08/07/2023 5:42 PM GEOINT ANALYST [facility] Specific [place] Urine 1.006 1.003 - 1.035 08/07/2023 5:42 PM GEOINT ANALYST [facility] Blood Urine Negative Negative 08/07/2023 5:42 PM GEOINT ANALYST [facility] pH Urine 5.0 5.0 - 7.0 08/07/2023 5:42 PM GEOINT ANALYST [facility] Protein Albumin Urine Negative Negative mg/dL 08/07/2023 5:42 PM GEOINT ANALYST [facility] Urobilinogen Urine Normal Normal, 2.0 mg/dL 08/07/2023 5:42 PM GEOINT ANALYST [facility] Nitrite Urine Negative Negative 08/07/2023 5:42 PM GEOINT ANALYST [facility] Leukocyte Esterase Urine Negative Negative 08/07/2023 5:42 PM GEOINT ANALYST [facility] Mucus Urine Present(A) None Seen /LPF 08/07/2023 5:42 PM GEOINT ANALYST [facility] RBC Urine <1 <=2 /HPF 08/07/2023 5:42 PM GEOINT ANALYST [facility] WBC Urine <1 <=5 /HPF 08/07/2023 5:42 PM GEOINT ANALYST LABORATORY Urine MID-STREAM URINE SPECIMEN / Unknown Non-blood Collection / Unknown 08/07/2023 5:26 PM GEOINT ANALYST 08/07/2023 5:30 PM GEOINT ANALYST Car Paris MD LAB - URINE ORDER [facility] Lab [address] [facility] Lab (1st floor, no room number) [place] [address], [facility] [phone] * CBC with platelets and differential (08/07/2023 3:05 PM GEOINT ANALYST) WBC Count 4.5 4.0 - 11.0 10e3/uL 08/07/2023 3:14 PM GEOINT ANALYST [facility] RBC Count 4.78 3.80 - 5.20 10e6/uL 08/07/2023 3:14 PM GEOINT ANALYST [facility] Hemoglobin 13.2 11.7 - 15.7 g/dL 08/07/2023 3:14 PM GEOINT ANALYST [facility] Hematocrit 40.7 35.0 - 47.0 % 08/07/2023 3:14 PM GEOINT ANALYST [facility] MCV 85 78 - 100 fL 08/07/2023 3:14 PM GEOINT ANALYST [facility] MCH 27.6 26.5 - 33.0 pg 08/07/2023 3:14 PM GEOINT ANALYST [facility] MCHC 32.4 31.5 - 36.5 g/dL 08/07/2023 3:14 PM GEOINT ANALYST [facility] RDW 14.6 10.0 - 15.0 % 08/07/2023 3:14 PM GEOINT ANALYST [facility] Platelet Count 215 150 - 450 10e3/uL 08/07/2023 3:14 PM GEOINT ANALYST [facility] % Neutrophils 48 % 08/07/2023 3:14 PM GEOINT ANALYST [facility] % Lymphocytes 35 % 08/07/2023 3:14 PM GEOINT ANALYST [facility] % Monocytes 13 % 08/07/2023 3:14 PM GEOINT ANALYST [facility] % Eosinophils 2 % 08/07/2023 3:14 PM GEOINT ANALYST [facility] % Basophils 1 % 08/07/2023 3:14 PM GEOINT ANALYST [facility] % Immature Granulocytes 1 % 08/07/2023 3:14 PM GEOINT ANALYST [facility] NRBCs per 100 WBC 0 <1 /100 023 3:14 PM GEOINT ANALYST [facility] Absolute Neutrophils 2.3 1.6 - 8.3 10e3/uL 08/07/2023 3:14 PM GEOINT ANALYST [facility] Absolute Lymphocytes 1.6 0.8 - 5.3 10e3/uL 08/07/2023 3:14 PM GEOINT ANALYST [facility] Absolute Monocytes 0.6 0.0 - 1.3 10e3/uL 08/07/2023 3:14 PM GEOINT ANALYST [facility] Absolute Eosinophils 0.1 0.0 - 0.7 10e3/uL 08/07/2023 3:14 PM GEOINT ANALYST [facility] Absolute Basophils 0.0 0.0 - 0.2 10e3/uL 08/07/2023 3:14 PM GEOINT ANALYST [facility] Absolute Immature Granulocytes 0.0 <=0.4 10e3/uL 08/07/2023 3:14 PM GEOINT ANALYST [facility] Absolute NRBCs 0.0 10e3/uL 08/07/2023 3:14 PM GEOINT ANALYST [facility] Blood STRUCTURE OF LEFT UPPER LIMB / Unknown Venipuncture / Unknown 08/07/2023 3:05 PM GEOINT ANALYST 08/07/2023 3:10 PM GEOINT ANALYST Car Paris MD LAB - BLOOD ORDER [facility] Lab [address] Lab (1st floor, no room number) [place] [address], [facility] [phone] * (ABNORMAL) Comprehensive metabolic panel (08/07/2023 3:05 PM GEOINT ANALYST) Sodium 139 135 - 145 mmol/L 08/07/2023 3:34 PM [facility] Comment:Reference intervals for this test were updated on 06/03/2023 to more accurately reflect our healthy population. There may be differences in the flagging of prior results with similar values performed with this method. Interpretation of those prior results can be made in the context of the updated reference intervals. Potassium 4.3 3.4 - 5.3 mmol/L 08/07/2023 3:34 PM [facility] Carbon Dioxide (CO2) 23 22 - 29 mmol/L 08/07/2023 3:34 PM [facility] Anion Gap 11 7 - 15 mmol/L 08/07/2023 3:34 PM [facility] Urea Nitrogen 6.8(L) 8.0 - 23.0 mg/dL 08/07/2023 3:34 PM [facility] Creatinine 1.08(H) 0.51 - 0.95 mg/dL 08/07/2023 3:34 PM [facility] GFR Estimate 57(L) >60 mL/min/1. 73m2 08/07/2023 3:34 PM [facility] Calcium 8.9 8.8 - 10.2 mg/dL 08/07/2023 3:34 PM [facility] Chloride 105 98 - 107 mmol/L 08/07/2023 3:34 PM [facility] Glucose 116(H) 70 - 99 mg/dL 08/07/2023 3:34 PM [facility] Alkaline Phosphatase 95 40 - 150 U/L 08/07/2023 3:34 PM [facility] Comment:Reference intervals for this test were updated on 07/22/2023 to more accurately reflect our healthy population. There may be differences in the flagging of prior results with similar values performed with this method. Interpretation of those prior results can be made in the context of the updated reference intervals. AST 28 0 - 45 U/L 08/07/2023 3:34 PM GEOINT ANALYST [facility] Comment:Reference intervals for this test were updated on 02/17/2023 to more accurately reflect our healthy population. There may be differences in the flagging of prior results with similar values performed with this method. Interpretation of those prior results can be made in the context of the updated reference intervals. ALT 28 0 - 50 U/L 08/07/2023 3:34 PM GEOINT ANALYST [facility] Comment:Reference intervals for this test were updated on 02/17/2023 to more accurately reflect our healthy population. There may be differences in the flagging of prior results with similar values performed with this method. Interpretation of those prior results can be made in the context of the updated reference intervals. Protein Total 6.9 6.4 - 8.3 g/dL 08/07/2023 3:34 PM GEOINT ANALYST [facility] Albumin 4.2 3.5 - 5.2 g/dL 08/07/2023 3:34 PM GEOINT ANALYST [facility] Bilirubin Total 0.4 <=1.2 mg/dL 08/07/2023 3:34 PM GEOINT ANALYST [facility] Blood STRUCTURE OF LEFT UPPER LIMB / Unknown Venipuncture / Unknown 08/07/2023 3:05 PM GEOINT ANALYST 08/07/2023 3:10 PM GEOINT ANALYST Car Paris MD LAB - BLOOD ORDER [facility] [address] [facility] Lab (1st floor, no room number) [place] [address], [facility] [phone] documented in this encounter Visit Diagnoses Diagnosis [...] For 1 dose $Given 08/07/2023 6:11 PM GEOINT ANALYST 78 mLs ondansetron (ZOFRAN) injection 4 mg 4 mg, Intravenous, ONCE, Administer over 2-5 Minutes, On Betty 08/07/23 at 1630, For 1 dose, Irritant. $Given 08/07/2023 5:34 PM GEOINT ANALYST 4 mg sodium chloride (PF) 0.9% PF flush 100 mL 100 mL, Intravenous, ONCE, On Betty 08/07/23 at 1810, For 1 dose $Given 08/07/2023 6:11 PM GEOINT ANALYST 59 mLs documented in this encounter Active and Recently Administered Medications Times are shown in GEOINT ANALYST. Scheduled Medication Order 08/05/2023 08/06/2023 08/07/2023 iopamidol (ISOVUE-370) solution 500 mL (COMPLETED) 500 mL, Intravenous, ONCE, On Betty 08/07/23 at 1810, For 1 dose 1811 ($Given - Provi courtney: Jana Ventura) ondansetron (ZOFRAN) injection 4 mg (COMPLETED) 4 mg, Intravenous, ONCE, Administer over 2-5 Minutes, On Betty 08/07/23 at 1630, For 1 dose, Irritant. 1734 ($Given - Provi courtney: Irma Rice RN) sodium chloride (PF) 0.9% PF flush 100 mL (COMPLETED) 100 mL, Intravenous, ONCE, On Betty 08/07/23 at 1810, For 1 dose 1811 ($Given - Provi courtney: Jana Shawn Contrerasosmarion) PRN Medication Order 08/05/2023 08/06/2023 08/07/2023 HYDROmorphone (PF) (DILAUDID) injection 0.5 mg 0.5 mg, Intravenous, EVERY 15 MIN PRN, severe pain, Starting on Betty 08/07/23 at 1625, For 3 doses documented in this encounter Care Teams Manager Logistic Relationship Specialty Start Date End Date Andrew Israel PA-C [facility] [address] [place] [address] PCP - General 05/15/23 documented as of this encounter
--- OUTSIDE RECORDS SUMMARY | 2023-10-20 07:44 | XMS_ITS | Encounter Summary ---
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
--- NOTE | 2023-10-20 07:45 | MM_ITS ---
BILATERAL SCREENING MAMMOGRAPHY. COMPARISON: 12/05/2020, 01/26/2018, 05/16/2016. FINDINGS: SCATTERED FIBROGLANDULAR DENSITIES ARE PRESENT. NO SUSPICIOUS MASSES OR ARCHITECTURAL DISTORTION. IMPRESSION: BENIGN. NO EVIDENCE OF MALIGNANCY. BI-RADS CATEGORY 2. BENIGN. RECOMMENDATIONS: ANNUAL BILATERAL SCREENING MAMMOGRAPHY.
--- OUTSIDE RECORDS SUMMARY | 2023-10-20 07:45 | XMS_ITS | Encounter Summary ---
Author Name Unknown Organization [facility] Address [address] [place] [address] Care Team Providers Care Bss Solution Architect Name Role Phone Andrew Israel PA-C Primary Care Provider [phone] Reason for Visit * Reason Comments Diarrhea * Auth/Cert (Routine) Specialty Diagnoses / Procedures Referred By Contac t Referred To Contact EMERGENCY MEDICINE Diagnoses Acute colitis Acute colitis Emergency Dept [address] [place] [address] Referral ID Status Reason Start Date Expiration Date Visits Re quested Visits Authorized [id number] 1 1 Encounter Details Date Type Department Care Team (Late st Contact Info) Description 06/16/2023 5:22 PM CDT - 06/22/2023 6:15 PM CDT Hospital Encounter [facility] [address] [place] [address] Ruma Ponce MD [facility] [address] [address] Miryam Sebastian DO [facility] [address] [facility] [address] [facility] [place] [address] Aldo Flores MD [address], [facility] [place] [address] Jesus Angulo MD [facility] [address] [place] [address] Abdominal pain, unspecified abdominal location [...] Bynum MD - 06/22/2023 10:35 AM CDT [facility] Hospitalist Discharge Summary Date of Admission: [...] EXAM: CT ABDOMEN PELVIS W CONTRAST LOCATION: [facility] DATE: 06/16/2023 INDICATION: hx Crohn's, RUQ epigastric [...] call with any questions. Philipp Bynum MD [facility] [address] [facility] [address] Physical Exam Vital Signs: Temp: 98 ??F [...] be sent through Care Everywhere. * Hemorrhoids (Namibian) documented in this encounter Medications at Time [...] 4 days. 40 tablet 0 06/22/2023 3 diphenhydrAMINE (BENADRYL) 25 MG capsule Take [...] 06/22/2023 4 documented as of this encounter Progress Notes * Stan Harrington MD - 06/21/2023 3:57 PM CDT [facility] Medicine Progress Note - GI Date [...] Clinically Significant Risk Factors Stan Harrington MD, [facility] Securely message with Liibook (more info) Text page via [place] Orders Paging/Directory Interval History The patient reports no [...] Pulse: 73 Resp: 18 SpO2: 97 % B9Wgeqid: None (Room air) Weight: 152 lbs 12.46 [...] Bynum MD - 06/21/2023 9:18 AM CDT [facility] Medicine Progress Note - Hospitalist Service [...] bedside nursing Philipp Bynum MD Hospitalist Service [facility] Securely message with Liibook (more info) Text page via [facility] Private Paging/Directory Interval History Patient has started to advance her diet. She still has ongoing pain but overall seems to be doing better. Has not had any bowel movements but has not been eating much yet. Has had minimal flatus. Physical Exam Vital Signs: Temp: 98.6 ??F (37 ??C) Temp src: Oral BP: (!) 148/85 Pulse: 73 Resp: 18 SpO2: 97 % E3Gzrojy: None (Room air) Weight: 152 lbs 12.46 [...] Bynum MD - 06/20/2023 1:04 PM CDT [facility] Medicine Progress Note - Hospitalist Service [...] her colonoscopy Philipp Bynum MD Hospitalist Service [facility] Securely message with Liibook (more info) Text page via [facility] Paging/Directory Interval History Patient is new to [...] past 24 hour(s)). * Betty Olivares APRN WATCH ENGINE OPERATOR - 06/19/2023 11:17 AM CDT Images from [...] in counseling/coordination of care. Betty Olivares CNP [facility] ([facility]) [phone] * Valdez Gallardo MD - 06/19/2023 10:34 AM CDT [facility] Medicine Progress Note - Hospitalist Service [...] blood in the stool but mucus present. [facility] consulted from the ED, recommended starting IV [...] days Valdez Gallardo MD, MD Hospitalist Service [facility] Securely message with Liibook (more info) Text page via [facility] Paging/Directory Interval History Continuing medicine service care [...] 56.1 kg Adjusted BW Estimated Energy Needs: 1505-8912 kcals (25-30 Kcal/Kg) Justification: maintenance Estimated Protein Needs: 56-67 grams protein (1-1.2 g pro/Kg) Justification: maintenance Estimated Fluid Needs: 7946-6158 mL (1 mL/Kcal) Justification: maintenance MALNUTRITION: % [...] Peguero RDN, LD Clinical Dietitian 3rd floor/ICU: [phone] All other floors: [phone] Weekend/holiday: [phone] Office: [phone] * Valdez Gallardo MD - 06/18/2023 11:09 AM CDT [facility] Medicine Progress Note - Hospitalist Service [...] days Valdez Gallardo MD, MD Hospitalist Service [facility] Securely message with Liibook (more info) Text page via [place] Orders Paging/Directory Interval History Continuing medicine service care [...] past 24 hour(s)). * Betty Olivares APRN WATCH ENGINE OPERATOR - 06/18/2023 10:28 AM CDT Images from [...] 209 339 Recent Labs Lab Test 06/17/23 0706/16/23173604/02/23 0622 POTASSIUM 4.3 3.6 3.7 CHLORIDE 109* [...] in counseling/coordination of care. Betty Olivares CNP [facility] ([facility]) [phone] * Valdez Gallardo MD - 06/18/2023 7:34 [...] Gallardo MD - 06/17/2023 10:16 AM CDT [facility] Medicine Progress Note - Hospitalist Service [...] days Valdez Gallardo MD, MD Hospitalist Service [facility] Securely message with Liibook (more info) Text page via [facility] Paging/Directory Interval History I assume medicine service [...] EXAM: CT ABDOMEN PELVIS W CONTRAST LOCATION: [facility] DATE: 06/16/2023 INDICATION: hx Crohn's, RUQ epigastric [...] Mace RN - 06/17/2023 9:47 AM CDT [facility] ED Boarding Nurse Handoff Addendum Report: Date/time: [...] Flores MD - 06/16/2023 10:57 PM CDT [facility] History and Physical - Hospitalist Service Date [...] not collected yet. ED physician spoke with [facility], recommended starting IV methylprednisolone every 8 hours. [...] Date: 06/18/2023 Aldo Flores MD Hospitalist Service [facility] Securely message with Liibook (more info) Text page via [facility] Paging/Directory Chief Complaint Abdominal pain, diarrhea History [...] EXAM: CT ABDOMEN PELVIS W CONTRAST LOCATION: [facility] DATE: 06/16/2023 INDICATION: hx Crohn's, RUQ epigastric [...] encounter Consult Notes * Betty Olivares APRN WATCH ENGINE OPERATOR - 06/17/2023 8:16 AM CDTAssociated Order(s): GASTROENTEROLOGY IP CONSULT Images from the original note were not included. GASTROENTEROLOGY CONSULTATION Hortensia Buitrago [address] [place] [id number] 63 year old female Admission Date/Time: 06/16/2023 [...] lab test results. Recent Labs Lab Test 06/17/23 0706/16/23173604/02/23 0622 WBC 4.0 5.7 7.3 HGB 12.4 13.9 8.6* MCV 86 86 91 PLT 188 209 339 Recent Labs Lab Test 06/17/23 0718 06/16/23173604/02/23 0622 NA 141 139 145 POTASSIUM 4.3 [...] including patient evaluation, reviewing documentation/test results, and grade recorder. Thank you for asking us to participate in the care of this patient. Betty Olivares CNP [facility] ([facility]) [phone] Associated attestation - Veronika Glass MD - [...] on patient care activities 25 minutes Veronika Glass MD documented in this encounter ED Notes * Jana Haque, RN - 06/16/2023 8:41 PM CDT [facility] ED Nurse Handoff Report ED Chief [...] independent. Lift room needed: No. Bariatric: No Physical Science Technician Needed: No Isolation: Yes. Infection: Not Applicable [...] Remicade 8 weeks prior. She follows with [facility] as well as Dr. Madison Iverson [...] Bilirubin Urine Negative Ketones Urine Negative Specific [place] Urine 1.013 Blood Urine Negative pH Urine [...] in March. Triage Assessment Row Name 06/16/23 0448 Triage Assessment (Adult) Airway WDL WDL Respiratory [...] Remicade 8 weeks prior. She follows with [facility] as well as Dr. Madison Iverson [...] leaving the hospital. Manuel Rossi MD 06/16/23 1730 * Ruma Ponce MD - 06/16/2023 5:14 [...] 3 months ago. Patient recently went to [place] but denies any other travel. Independent Historian: [...] Bilirubin Urine Negative Ketones Urine Negative Specific [place] Urine 1.013 Blood Urine Negative pH Urine [...] 4 mg (4 mg Intravenous $Given 06/16/23 332) iopamidol (ISOVUE-370) solution 500 mL (75 mLs Intravenous $Given 06/16/23 897) CT scan flush (59 mLs Intravenous $Given 06/16/23 180) Assessments: 1941 I obtained history and examined the patient as noted above. Independent Interpretation (X-rays, CTs, rhythm strip): none Consultations/Discussion of Management or Tests: [address] Sheriff from [facility] about the care and treatment of the patient. [address] Flores of the hospitalist service who accepts the patient for admission. Social Determinants of Health affecting care: None Disposition: The patient was admitted to the hospital under the care of Dr. Flores. Impression & Plan [facility] Diagnoses: None Medical Decision Making: I found this patient to have acute colitis as a cause of her diarrhea and abdominal pain. I feel that this is likely an exacerbation of Crohn's colitis, so I consulted [facility] on-call who recommended to give her [...] Prescriptions No medications on file Scribe Disclosure: I, Moise Alves, am serving as a scribe at 6:44 PM on 06/16/2023 to document services personally performed by Ruma Ponce MD based on my observations and the provider's statements to me. 06/16/2023 Ruma Ponce MD [place], Cheri Lee, MD 06/16/23 2930 documented in this encounter Miscellaneous Notes * Plan of Care - Lucille aDy RN - 06/22/2023 6:15 PM CDT Removed PIV. Patient received discharge meds. Reviewed AVS with patient. All questions/concerns were addressed. Provided wheelchair transport to 's waiting car. * Plan of Care - Kallie Etienne RN - 06/22/2023 7:46 AM CDT Pt is alert and oriented x4 pain managed by IV Dilaudid and [place], Independent in the room, voidingw/o difficulty, passing [...] RA. Due for BM. Patient frustrated that DEISY LOU stated he was unable to determine cause of pain. * Plan of Care - See Milton RN - 06/21/2023 1:06 PM CDT Goal Outcome Evaluation: Pt alert and orientated x4, pleasant. Up independent in room, ambulated in hallways x2 this shift. Now on regular diet. L/S clear. PIV S/L patent. [place] and then dilaudid given for pain, as pt was not getting relief from oral meds. Pt at bedside. Tried to eat lunch, did not go very well as pt was in pain 03/17. Pt stated pain goal is 2-3. After [...] MD Physician Advisor Utilization Review/ Case Management [facility]. * Plan of Care - See [...] - 06/20/2023 5:42 AM CDT Shift from [id number] Inpatient Progress Note: For complete assessment see [...] Bowen RN - 06/17/2023 6:30 AM CDT [facility] ED Boarding Nurse Handoff Addendum Report: Date/time: [...] in-person Pertinent Information: none Changes made to TEXTILE MACHINE MAINTENANCE MECHANIC medication list: Added: None Deleted: dilaudid, miralax, senna Changed: None Medication Affordability: Not including over the counter (OTC) medications, was there a time in the past 3 months when you did not take your medications as prescribed because of cost?: No Allergies reviewed with patient and updates made in EHR: yes Medication History Completed By: Car Kramer RPH 06/16/2023 9:26 PM TEXTILE MACHINE MAINTENANCE MECHANIC Med List Medication Sig Last Dose acetaminophen [...] Case Report Surgical Pathology Report ? Case: [id number] ? Authorizing Provider: ??Veronika Glass MD ?Collected: ? 06/20/2023 09:04 AM ? Ordering Location: ? [facility] ?Received: ?06/20/2023 09:19 AM ? [facility] ? Pathologist: ? Cecile St MD PhD ? Specimen: ?Large Intestine, Colon, Random, Random Right Colon biopsies R/O CMV ? 06/23/2023 11:42 AM [facility] Final Diagnosis A.Colon, right side, random locations , biopsies: - Colonic mucosa with no specific histopathologic abnormalities. - No features of an acute, chronic or microscopic colitis identified. - Negative for dysplasia or malignancy. 06/23/2023 11:42 AM [facility] Clinical Information Procedure: Colonoscopy with biopsies Pre-op Diagnosis: Crohn disease (H) [K50.90] Post-op Diagnosis: K50.90 - Crohn disease (H) [ICD-10-CM] 06/23/2023 11:42 AM [facility] Gross Description A(1). Large Intestine, Colon, Random, Random Right Colon biopsies R/O CMV: The specimen is received in formalin, labeled with the patient's name, medical record number and other identifying information and designated ? random right colon biopsies r/o CMV? . It consists of 6 claudio soft tissue fragments ranging from 0.2-0.5 cm. Entirely submitted in one cassette. ([facility]) 06/23/2023 11:42 AM [facility] Microscopic Description Microscopic examination was performed. 06/23/2023 11:42 AM [facility] Performing Labs The technical component of this testing was completed at [facility] 06/23/2023 11:42 AM [facility] Case Images 06/23/2023 11:42 AM [facility] Biopsy COLON STRUCTURE / Unknown 06/20/2023 9:04 AM CDT 06/20/2023 9:19 AM CDT Veronika CAZARES - GERBER [facility] [address] [facility] Lab (1st floor, no room number) [place] [address], [place] [phone] * COLONOSCOPY (06/20/2023 8:38 AM CDT) [facility] COLONOSCOPY [facility] Patient Name: Hortensia Buitrago ?Procedure Date: [...] monitored continuously. The ?[employer] Pediatric Colonoscope Model #[id number]-FB619H, ?Endora #253, SN #[id number] was introduced through the ?anus and advanced [...] Note Initiated On: 06/20/2023 8:38 AM MRN: ?[id number] Procedure Date: ? 06/20/2023 8:38:02 AM Total [...] LAB - BLOOD ORDER NATALIIA [facility]AT[facility] Acute Care Lab [address] Lab (1st floor, no room number) [place] [address], [place] [phone] * (ABNORMAL) Basic metabolic panel (06/20/2023 6:22 [...] Gallardo MD LAB - BLOOD ORDER NATALIIA [facility] [address] [facility] Lab (1st floor, no room number) [place] [address], [place] [phone] * Calprotectin Feces (06/17/2023 2:20 PM CDT) Calprotectin Feces 30.1 0.0 - 49.9 mg/kg 06/18/2023 12:45 PM CDT [facility]/PROT/END O Comment:Normal Stool RECTAL CONTENTS / Unknown Non-blood Collection / Unknown 06/17/2023 2:20 PM CDT 06/17/2023 2:25 PM CDT Aldo Flores MD LAB - STOOLS ORDERAB LES [facility]/PROT/ENDO [facility] Core/Prot/Endo [address] [facility], [place] [address], [place] [phone] * C. difficile Toxin B PCR with [...] LABORATORY - 06/17/2023 6:04 PM CDT The RealtimeBoard Xpert C. difficile Assay, performed on the RealtimeBoard GeneXpert?? Instrument Systems, is a qualitative in [...] - MICRO GENERAL ORDERABLES [facility] Inf. Diseases Diag. Lab [address] [facility], [address] [place] [address], [place] [phone] * Enteric Bacteria and Virus Panel PCR [...] 7:17 PM CDT [facility] Shigella/Enteroinvas tmami E. coli (EIEC) Negative Negative 06/17/2023 7:17 PM CDT [facility] Cryptosporidium species Negative Negative 06/17/2023 7:17 PM CDT [facility] Giardia lamblia Negative Negative 3 7:17 PM CDT [facility] Norovirus [...] using the FDA-cleared FilmArray GI Panel from [employer] ??A negative result should not rule [...] by the Infectious Diseases Diagnostic Laboratory at [facility]. This laboratory is certified under the Clinical Laboratory Improvement Amendments of 1988 (CLIA-88) as qualified to perform high complexity clinical laboratory testing. Ruma Ponce MD LAB - MICRO GENERAL ORDERABLES [facility] Inf. Diseases Diag. Lab [address] [facility], [address] [place] [address], [place] [phone] * CBC with platelets (06/17/2023 7:18 AM [...] LAB - BLOOD ORDERABL ES RH LABORATORY [facility] Acute Care Lab [address] Lab (1st floor, no room number) [place] [address], [place] [phone] * (ABNORMAL) Basic metabolic panel (06/17/2023 7:18 [...] MD LAB - BLOOD ORDERABL ES LABORATORY [facility] Acute Care Lab [address] Lab (1st floor, no room number) [place] [address], [place] [phone] * CT Abdomen Pelvis w Contrast (06/16/2023 [...] EXAM: CT ABDOMEN PELVIS W CONTRAST LOCATION: [facility] DATE: 06/16/2023 INDICATION: hx Crohn's, RUQ epigastric [...] EXAM: CT ABDOMEN PELVIS W CONTRAST LOCATION: [facility] DATE: 06/16/2023 INDICATION: hx Crohn's, RUQ epigastric [...] coli Cefazolin MAMIE <=4 ug/mL: Susceptible Comment:Cefazolin OR C breakpoints are for the treatment of [...] - MICRO GENERAL ORDERABLES [facility] Inf. Diseases Diag. Lab [address] [facility], [address] [place] [address], [place] [phone] * (ABNORMAL) UA with Microscopic reflex to [...] 06/16/2023 6:16 PM CDT [facility] LABORATORY Specific [place] Urine 1.013 1.003 - 1.035 06/16/2023 6:16 [...] Rossi MD LAB - URINE ORDER NATALIIA [facility] Lab [address] Lab (1st floor, no room number) [place] [address], [place] [phone] * Extra Red Top Tube (06/16/2023 5:37 PM CDT) Hold Specimen JI 06/16/2023 7:02 PM CDT [facility] Blood STRUCTURE OF RIGHT UPPER LIMB / Unknown Venipuncture / Unknown 06/16/2023 5:37 PM CDT 06/16/2023 5:47 PM CDT Ruma Ponce MD LAB - BLOOD ORDERAB LES Performing Organization Address City/[facility]/ZIP Co de Phone Number [facility] Care Lab [address] Lab (1st floor, no room number) [place] [address], [place] [phone] * Extra Blue Top Tube (06/16/2023 5:37 PM CDT) Hold Specimen [facility] 06/16/2023 7:02 PM CDT LABORATORY Blood STRUCTURE OF RIGHT UPPER LIMB / Unknown Venipuncture / Unknown 06/16/2023 5:37 PM CDT 06/16/2023 5:47 PM CDT Ruma Ponce MD LAB - BLOOD ORDERAB LES [facility] Care Lab [address] Lab (1st floor, no room number) [place] [address], [place] [phone] * CBC with platelets and differential (06/16/2023 [...] Rossi MD LAB - BLOOD ORDER NATALIIA [facility] Lab [address] Lab (1st floor, no room number) [place] [address], [place] [phone] * CRP inflammation (06/16/2023 5:37 PM CDT) CRP Inflammation <3.00 <5.00 mg/L 06/16/20 6:19 PM CDT [facility] Blood STRUCTURE OF RIGHT UPPER LIMB / Unknown Venipuncture / Unknown 06/16/2023 5:37 PM CDT 06/16/2023 5:47 PM CDT Manuel Rossi MD LAB - BLOOD ORDER NATALIIA [facility] Lab [address] Lab (1st floor, no room number) [place] [address], [place] [phone] * Erythrocyte sedimentation rate auto (06/16/2023 5:37 PM CDT) Erythrocyte Sedimentation Rate 5 0 - 30 mm/hr 06/16/2023 6:27 PM CDT [facility] Blood STRUCTURE OF RIGHT UPPER LIMB / Unknown Venipuncture / Unknown 06/16/2023 5:37 PM CDT 06/16/2023 5:47 PM CDT Manuel Rossi MD LAB - BLOOD ORDER NATALIIA LABORATORY [facility] Care Lab [address] Lab (1st floor, no room number) [place] [address], [place] [phone] * Lipase (06/16/2023 5:37 PM CDT) Lipase 27 13 - 60 U/L 06/16/2023 6:19 PM CDT LABORATORY Blood STRUCTURE OF RIGHT UPPER LIMB / Unknown Venipuncture / Unknown 06/16/2023 5:37 PM CDT 06/16/2023 5:47 PM CDT Manuel Rossi MD LAB - BLOOD ORDER NATALIIA Performing Organization Address City/[facility]/ZIP Co de Phone Number LABORATORY [facility] Lab [address] Lab (1st floor, no room number) [place] [address], [place] [phone] * (ABNORMAL) Comprehensive metabolic panel (06/16/2023 5:37 PM CDT) Pathologist [facility] Sodium 139 135 - 145 mmol/L 06/16/2023 [...] - 5.3 mmol/L 06/16/2023 6:19 PM CDT [facility] Carbon Dioxide (CO2) 23 22 - [...] LAB - BLOOD ORDER NATALIIA [facility] Lab [address] [facility] Lab (1st floor, no room number) [place] [address] [phone] documented in this encounter Visit Diagnoses Diagnosis [...] 10 mg 10 mg, Oral, ONCE, On Betty 06/19/23 at 1500, For 1 dose, To [...] AT BEDTIME PRN, itching, sleep, Starting on 06/20/23 at 1409 $Given 06/20/2023 2:27 PM CDT [...] mg, Oral, AT BEDTIME, First dose on 06/16/23 at 2355 $Given 06/21/2023 10:15 PM CDT [...] Infection 1011 ($Given - Provider: See Milton RN)8 ($Given - Provider: Wilian Fischer RN) methylPREDNISolone [...] Santillan RN)1144 ($Given - Provider: See Milton RN)1959 ($Given - Provider: Wilian Fischer, IFRAH) 0434 [...] 2200 2155 ($Given - Provider: Wilian Fischer, RN) 2215 ($Given - Provider: Kallie Etienne, IFRAH) pantoprazole (PROTONIX) EC tablet 40 mg 40 mg, Oral, 2 TIMES DAILY BEFORE MEALS, First dose on Fri06/17/23 at 0730, DO NOT CRUSH. 0634 ($Given - Provider: Irma Santillan RN)1713 ($Given - Provider: Wilian Fischer, IFRAH) 0655 ($Given - Provider: Chari Kwon, IFRAH)1634 [...] 2215 ($Given - Provider: Kallie Etienne, IFRAH) PRN Medication Order 06/20/2023 06/21/2023 06/22/2023 acetaminophen (TYLENOL) tablet 500-1,000 mg 500-1,000 mg, Oral, EVERY 6 HOURS PRN, mild pain, Starting on Fri06/16/23 at 2350, Maximum acetaminophen dose from all sources = 75 mg/kg/day not to exceed 4 gram 1354 ($Given - Provider: See Milton, IFRAH)1958 ($Given - Provider: Wilian Fischer RN) 1541 ($Given - Provider: Lucille Day, [...] physician., Intra-procedure 0850 ($Given - Provider: Wilfrido Mcgowan RN)0854 ($Given - Provider: Wilfrido Mcgowan RN) [...] See Milton, IFRAH)1354 ($Given - Provider: See Milton, IFRAH)2156 ($Given - Provider: Wilian Fischer RN) 0447 ($Given - Provider: Chari Kwon, IFRAH)0830 ($Given - Provider: See Milton, IFRAH)1246 ($Given - Provider: See Milton, IFRAH)1636 ($Given - Provider: Lucille Day, IFRAH)2041 ($Given - Provider: Kallie Etienne, IFRAH) 0042 [...] 0958 (See Alternativ e - Provider: Lucille Day, IFRAH)1800 (See Alternative - Provider: Lucille Day, IFRAH) hydrOXYzine (ATARAX) tablet 50 mg(Linked Group 2) [...] the provider. 0958 ($Given - Provider: Lucille Day, IFRAH)1800 ($Given - Provider: Lucille Day, RN) methocarbamol (ROBAXIN) tablet 500 mg 500 mg, Oral, 4 TIMES DAILY PRN, muscle spasms, Starting on Fri06/17/23 at 1057 1149 ($Given - Provider: See Milton, RN)1721 ($Given - Provider: Wilian Fischer, RN)2207 ($Given - Provider: Wilian Fischer, RN) 0447 ($Given - Provider: Chari Kwon, IFRAH)1201 ($Given - Provider: See Milton, RN)1541 ($Given - Provider: Lucille Day, IFRAH) 0816 ($Given - Provider: Lucille Day, IFRAH)1305 [...] Irma Santillan RN)2235 ($Given - Provider: Wilian Fischer, IFRAH) 1209 ($Given - Provider: See Milton, IFRAH) [...] documented as of this encounter Care Teams Bss Solution Architect Relationship Specialty Start Date End Date Andrew Israel PA-C [facility] [address] [place] [address] PCP - General 05/15/23 documented as of this encounter
--- OUTSIDE RECORDS SUMMARY | 2023-10-20 07:45 | XMS_ITS | Encounter Summary ---
Author Name Unknown Organization [facility] Address [address] [place] [address] Care Team Providers Care Manager Casino Name Role Phone Andrew Israel PA-C Primary Care Provider [phone] Reason for Visit * Reason Comments Diarrhea * Auth/Cert (Routine) Specialty Diagnoses / Procedures Referred By Contac t Referred To Contact EMERGENCY MEDICINE Diagnoses Acute colitis Acute colitis Emergency Dept [address] [place] [address] Referral ID Status Reason Start Date Expiration Date Visits Re quested Visits Authorized [id number] 1 1 Encounter Details Date Type Department Care Team (Late st Contact Info) Description 06/20/2023 8:50 AM CDT - 06/20/2023 9:[address] [facility] [place] [address] [place] [address] Veronika Glass MD [facility] [address] [facility] [place] [id number] Colonoscopy with biopsies Surgery Details Date/Time Status [...] Bynum MD - 06/22/2023 10:35 AM CDT [facility] Hospitalist Discharge Summary Date of Admission: 06/16/2023 [...] CT ABDOMEN PELVIS W CONTRAST LOCATION: [facility] DATE: 06/16/2023 INDICATION: hx Crohn's, RUQ epigastric [...] call with any questions. Philipp Bynum MD [facility] [address] [facility] [address] Physical Exam Vital Signs: Temp: 98 ??F [...] be sent through Care Everywhere. * Hemorrhoids (Micronesian) documented in this encounter Medications at Time [...] Harrington MD - 06/21/2023 3:57 PM CDT [facility] Medicine Progress Note - GI Date of [...] Clinically Significant Risk Factors Stan Harrington MD, [facility] Securely message with [employer]land (more info) Text page via [facility] Paging/Directory Interval History The patient reports no [...] Pulse: 73 Resp: 18 SpO2: 97 % M8Naecjo: None (Room air) Weight: 152 lbs 12.46 [...] Bynum MD - 06/21/2023 9:18 AM CDT [facility] Medicine Progress Note - Hospitalist [...] bedside nursing Philipp Bynum MD Hospitalist Service [facility] Securely message with [employer] (more info) Text page via [facility] Paging/Directory Interval History Patient has started to advance her diet. She still has ongoing pain but overall seems to be doing better. Has not had any bowel movements but has not been eating much yet. Has had minimal flatus. Physical Exam Vital Signs: Temp: 98.6 ??F (37 ??C) Temp src: Oral BP: (!) 148/85 Pulse: 73 Resp: 18 SpO2: 97 % X2Gxxenp: None (Room air) Weight: 152 lbs 12.46 [...] Bynum MD - 06/20/2023 1:04 PM CDT [facility] Medicine Progress Note - Hospitalist [...] her colonoscopy Philipp Bynum MD Hospitalist Service [facility] Securely message with [employer] (more info) Text page via [facility] Paging/Directory Interval History Patient is new [...] past 24 hour(s)). * Betty Olivares APRN BOX CLOSING MACHINE OPERATOR - 06/19/2023 11:17 AM CDT Images [...] 3.6 3.7 CHLORIDE 109* 103 110* CO2 22 23 26 BUN 6.4* 7.4* 13.4 ANIONGAP [...] in counseling/coordination of care. Betty Olivares CNP [facility] ([facility]) [phone] * Valdez Gallardo MD - 06/19/2023 10:34 AM CDT [facility] Medicine Progress Note - Hospitalist [...] days Valdez Gallardo MD, MD Hospitalist Service [facility] Securely message with [employer] (more info) Text page via [facility] Paging/Directory Interval History Continuing medicine service [...] the past 24 hour(s)). * Jelani Sullivan, BERNARDINO - 06/19/2023 7:56 AM CDT CLINICAL NUTRITION [...] 56.1 kg Adjusted BW Estimated Energy Needs: 4790-0711 kcals (25-30 Kcal/Kg) Justification: maintenance Estimated Protein Needs: 56-67 grams protein (1-1.2 g pro/Kg) Justification: maintenance Estimated Fluid Needs: 2863-8373 mL (1 mL/Kcal) Justification: maintenance MALNUTRITION: % [...] Peguero RDN, LD Clinical Dietitian 3rd floor/ICU: [phone] All other floors: [phone] Weekend/holiday: [phone] Office: [phone] * Valdez Gallardo MD - 06/18/2023 11:09 AM CDT [facility] Medicine Progress Note - Hospitalist [...] days Valdez Gallardo MD, MD Hospitalist Service [facility] Securely message with [employer] (more info) Text page via [facility] Paging/Directory Interval History Continuing medicine service [...] past 24 hour(s)). * Betty Olivares APRN BOX CLOSING MACHINE OPERATOR - 06/18/2023 10:28 AM CDT Images [...] in counseling/coordination of care. Betty Olivares CNP [facility] ([facility]) [phone] * Valdez Gallardo MD - 06/18/2023 7:34 [...] Gallardo MD - 06/17/2023 10:16 AM CDT [facility] Medicine Progress Note - Hospitalist [...] days Valdez Gallardo MD, MD Hospitalist Service [facility] Securely message with [employer] (more info) Text page via [facility] Paging/Directory Interval History I assume medicine [...] CT ABDOMEN PELVIS W CONTRAST LOCATION: [facility] DATE: 06/16/2023 INDICATION: hx Crohn's, RUQ epigastric [...] Mace RN - 06/17/2023 9:[address] [facility] ED Boarding Nurse Handoff Addendum Report: Date/time: [...] Flores MD - 06/16/2023 10:57 PM CDT [facility] History and Physical - Hospitalist [...] not collected yet. ED physician spoke with [facility], recommended starting IV methylprednisolone every 8 [...] Date: 06/18/2023 Aldo Flores MD Hospitalist Service [facility] Securely message with [employer] (more info) Text page via [facility] Paging/Directory Chief Complaint Abdominal pain, diarrhea [...] CT ABDOMEN PELVIS W CONTRAST LOCATION: [facility] DATE: 06/16/2023 INDICATION: hx Crohn's, RUQ epigastric [...] encounter Consult Notes * Betty Olivares APRN BOX CLOSING MACHINE OPERATOR - 06/17/2023 8:16 AM CDTAssociated Order(s): GASTROENTEROLOGY IP CONSULT Images from the original note were not included. GASTROENTEROLOGY CONSULTATION Hortensia Buitrago [address] [place] [id number] 63 year old female Admission Date/Time: 06/16/2023 [...] 3.6 3.7 CHLORIDE 109* 103 110* CO2 22 23 26 BUN 6.4* 7.4* 13.4 ANIONGAP [...] including patient evaluation, reviewing documentation/test results, and surgical orderly. Thank you for asking us to participate in the care of this patient. Betty Olivares, [facility] ([facility]) [phone] Associated attestation - Veronika Glass MD - [...] Haque, RN - 06/16/2023 8:41 PM CDT [facility] ED Nurse Handoff Report ED [...] independent. Lift room needed: No. Bariatric: No New Car Sales Manager Needed: No Isolation: Yes. Infection: Not Applicable [...] Remicade 8 weeks prior. She follows with [facility] as well as Dr. Madison Iverson [...] Bilirubin Urine Negative Ketones Urine Negative Specific [place] Urine 1.013 Blood Urine Negative pH Urine [...] injection 20 mg (20 mg Intravenous $Given 031) sodium chloride 0.9% BOLUS 1,000 mL (1,000 mLs Intravenous $New Bag 06/16/23 1740) ondansetron (ZOFRAN) injection 4 mg (4 mg [...] Remicade 8 weeks prior. She follows with [facility] as well as Dr. Madison Iverson [...] 3 months ago. Patient recently went to [place] but denies any other travel. Independent Historian: [...] Bilirubin Urine Negative Ketones Urine Negative Specific [place] Urine 1.013 Blood Urine Negative pH Urine [...] [address] Sheriff from [facility] about the care and treatment of the patient. [address] Flores of the hospitalist service who accepts the patient for admission. Social Determinants of Health affecting care: None Disposition: The patient was admitted to the hospital under the care of Dr. Flores. Impression & Plan [facility] Diagnoses: None Medical Decision Making: I found this patient to have acute colitis as a cause of her diarrhea and abdominal pain. I feel that this is likely an exacerbation of Crohn's colitis, so I consulted [facility] on-call who recommended to give her [...] Ponce MD [place], Cheri Lee, MD 06/16/23 5778 documented in this encounter Miscellaneous Notes * [...] x4 pain managed by IV Dilaudid and [place], Independent in the room, voidingw/o difficulty, passing [...] regular diet. L/S clear. PIV S/L patent. Br[place]wood and then dilaudid given for pain, as [...] MD Physician Advisor Utilization Review/ Case Management [facility]. * Plan of Care - See [...] - 06/20/2023 5:42 AM CDT Shift from [id number] Inpatient Progress Note: For complete assessment see [...] Bowen RN - 06/17/2023 6:[address] [facility] ED Boarding Nurse Handoff Addendum Report: Date/time: [...] in-person Pertinent Information: none Changes made to ATMOSPHERIC PHYSICS PROFESSOR medication list: Added: None Deleted: dilaudid, miralax, senna Changed: None Medication Affordability: Not including over the counter (OTC) medications, was there a time in the past 3 months when you did not take your medications as prescribed because of cost?: No Allergies reviewed with patient and updates made in EHR: yes Medication History Completed By: Car Kramer RPH 06/16/2023 9:26 PM ATMOSPHERIC PHYSICS PROFESSOR Med List Medication Sig Last Dose acetaminophen [...] Case Report Surgical Pathology Report ? Case: [id number] ? Authorizing Provider: ??Saulo, Veronika Downing MD ?Collected: ? 06/20/2023 09:04 AM ? Ordering Location: ? [facility] ?Received: ?06/20/2023 09:19 AM ? [facility] [place] ? Pathologist: ? Cecile St MD PhD [...] 0.2-0.5 cm. Entirely submitted in one cassette. ([facility]) 06/23/2023 11:42 AM CDT LABORATORY Microscopic Description Microscopic examination was performed. 06/23/2023 11:42 AM T LABORATORY Performing Labs The technical component of this testing was completed at [facility] Laboratory 06/23/2023 11:42 AM CDT LABORATORY Case Images 06/23/2023 11:42 AM T LABORATORY Biopsy COLON STRUCTURE / Unknown 06/20/2023 9:04 AM CDT 06/20/2023 9:19 AM CDT Veronika [facility] [place] [facility] [address] Lab (1st floor, no room number) [place] [address] [phone] * COLONOSCOPY (06/20/2023 8:38 AM CDT) [facility] COLONOSCOPY [facility] Patient Name: Hortensia Buitrago ?Procedure Date: 06/20/2023 [...] monitored continuously. The ?Olympus Pediatric Colonoscope Model #[id number]-WG530E, ?Endora #253, SN #[id number] was introduced through the ?anus and advanced [...] Note Initiated On: 06/20/2023 8:38 AM MRN: ?[id number] Procedure Date: ? 06/20/2023 8:38:02 AM Total [...] [facility] [address] Lab (1st floor, no room number) [place] [address], [facility] [phone] * (ABNORMAL) Basic metabolic panel (06/20/2023 6:22 [...] MD LAB - BLOOD ORDER NATALIIA LABORATORY [facility] [address] Lab (1st floor, no room number) [place] [address], [facility] [phone] * Calprotectin Feces (06/17/2023 2:20 PM CDT) Calprotectin Feces 30.1 0.0 - 49.9 mg/kg 06/18/2023 12:45 PM CDT [facility] SPECIAL[facility] CORE/PROT/END O Comment:Normal Stool RECTAL CONTENTS / Unknown Non-blood Collection / Unknown 06/17/2023 2:20 PM CDT 06/17/2023 2:25 PM CDT Aldo Flores MD LAB - STOOLS ORDERAB LES [facility] SPECIALTY CORE/PROT/ENDO [facility] Specialty Core/Prot/Endo [address] [facility] [address] [facility], [address] [place] [address], [facility] [phone] * C. difficile Toxin B PCR with [...] LABORATORY - 06/17/2023 6:04 PM CDT The [employer] Xpert C. difficile Assay, performed on the NumberPicture?? Instrument Systems, is a qualitative in vitro [...] MICRO GENERAL ORDERABLES [facility] Inf. Diseases Diag. Lab [address] [facility], [address] [place] [address], [facility] [phone] * Enteric Bacteria and Virus Panel PCR [...] PM CDT Assay performed using the FDA-cleared ResonateArray GI Panel from [employer] ??A negative result should not rule [...] MICRO GENERAL ORDERABLES [facility] Inf. Diseases Diag. Lab [address] [facility], [address] [place] [address], [place] [phone] * CBC with platelets (06/17/2023 7:18 AM [...] LAB - BLOOD ORDERABL ES RH LABORATORY [facility] [address] [facility] Lab (1st floor, no room number) [place] [address], [facility] [phone] * (ABNORMAL) Basic metabolic panel (06/17/2023 7:18 [...] - 5.3 mmol/L 06/17/2023 7:56 AM CDT RH LABORATORY Chloride 109(H) 98 - 107 mmol/L [...] Flores MD LAB - BLOOD ORDERABL ES [facility] Acute Care Lab [address] [facility] Lab (1st floor, no room number) [place] [address], [facility] [phone] * CT Abdomen Pelvis w Contrast (06/16/2023 [...] CT ABDOMEN PELVIS W CONTRAST LOCATION: [facility] DATE: 06/16/2023 INDICATION: hx Crohn's, RUQ epigastric [...] CT ABDOMEN PELVIS W CONTRAST LOCATION: [facility] DATE: 06/16/2023 INDICATION: hx Crohn's, RUQ epigastric [...] likely result in diarrhea. Manuel Rossi MD [facility] ORDERABLES * (ABNORMAL) Urine Culture (06/16/2023 [...] coli Cefazolin MAMIE <=4 ug/mL: Susceptible Comment:Cefazolin RI C breakpoints are for the treatment of [...] MICRO GENERAL ORDERABLES [facility] Inf. Diseases Diag. Lab [address] [facility], [address] [place] [address] [phone] * (ABNORMAL) UA with Microscopic reflex to [...] 06/16/2023 6:16 PM CDT RH LABORATORY Specific [place] Urine 1.013 1.003 - 1.035 06/16/2023 6:16 [...] Rossi MD LAB - URINE ORDER NATALIIA LABORATORY [facility] [address] [facility] Lab (1st floor, no room number) [place] [address], [facility] [phone] * Extra Red Top Tube (06/16/2023 5:37 PM CDT) Hold Specimen [facility] 06/16/2023 7:02 PM CDT [facility] LABORATORY Blood STRUCTURE OF RIGHT UPPER LIMB / Unknown Venipuncture / Unknown 06/16/2023 5:37 PM CDT 06/16/2023 5:47 PM CDT Ruma Ponce MD LAB - BLOOD ORDERAB LES [facility] Acute Care Lab [address] Lab (1st floor, no room number) [place] [address], [place] [phone] * Extra Blue Top Tube (06/16/2023 5:37 PM CDT) [facility] Signature Hold Specimen [facility] 06/16/2023 7:02 PM CDT [facility] LABORATORY Blood STRUCTURE OF RIGHT UPPER LIMB / Unknown Venipuncture / Unknown 06/16/2023 5:37 PM CDT 06/16/2023 5:47 PM CDT Ruma Ponce MD LAB - BLOOD ORDERAB LES [facility] Lab [address] Lab (1st floor, no room number) [place] [address], [place] [phone] * CBC with platelets and differential (06/16/2023 5:37 PM CDT) [facility] WBC Count 5.7 4.0 - 11.0 10e3/uL [...] Rossi MD LAB - BLOOD ORDER NATALIIA [facility] Acute Care Lab [address] Lab (1st floor, no room number) [place] [address], [facility] [phone] * CRP inflammation (06/16/2023 5:37 PM CDT) CRP Inflammation <3.00 <5.00 mg/L 06/16/20 6:19 PM CDT RH LABORATORY Blood STRUCTURE OF RIGHT UPPER LIMB / Unknown Venipuncture / Unknown 06/16/2023 5:37 PM CDT 06/16/2023 5:47 PM CDT Manuel Rossi MD LAB - BLOOD ORDER NATALIIA [facility] Acute Care Lab [address] Lab (1st floor, no room number) [place] [address], [facility] [phone] * Erythrocyte sedimentation rate auto (06/16/2023 5:37 PM CDT) Erythrocyte Sedimentation Rate 5 0 - 30 mm/hr 06/16/2023 6:27 PM CDT RH LABORATORY Blood STRUCTURE OF RIGHT UPPER LIMB / Unknown Venipuncture / Unknown 06/16/2023 5:37 PM CDT 06/16/2023 5:47 PM CDT Manuel Rossi MD LAB - BLOOD ORDER NATALIIA [facility] Acute Care Lab [address] Lab (1st floor, no room number) [place] [address], [place] [phone] * Lipase (06/16/2023 5:37 PM CDT) Lipase 27 13 - 60 U/L 06/16/2023 6:19 PM CDT RH LABORATORY Blood STRUCTURE OF RIGHT UPPER LIMB / Unknown Venipuncture / Unknown 06/16/2023 5:37 PM CDT 06/16/2023 5:47 PM CDT Manuel Rossi MD LAB - BLOOD ORDER NATALIIA [facility] [address] Lab (1st floor, no room number) [place] [address], [facility] [phone] * (ABNORMAL) Comprehensive metabolic panel (06/16/2023 5:37 [...] Rossi MD LAB - BLOOD ORDER NATALIIA [facility] Acute Care Lab [address] Lab (1st floor, no room number) [place] [address], [facility] [phone] documented in this encounter Visit Diagnoses Diagnosis [...] See Milton RN)195 ($Given - Provider: Wilian Fischer RN) 0434 ($Given - Provider: Chari Kwon RN)1200 ($Given - Provider: See Milton RN - Comment: 20mg)2034 ($Given - Provider: Kallie Etienne, IFRAH) 0428 ($Given - Provider: Kallie Etienne RN) [...] Day RN) 0809 ($Given - Provider: Lucille Day RN)1637 ($Given - Provider: Lucille Day RN) predniSONE (DELTASONE) tablet 10 mg(Linked Group 1) [...] For 3 doses, 1st order in taper 08 ($Given - Provider: Lucille Day, IFRAH) traZODone (DESYREL) tablet 200 mg 200 mg, Oral, AT BEDTIME, First dose on Fri06/17/23 at 2200 2155 ($Given - Provider: Wilian Fischer, RN) 2215 ($Given - Provider: Kallie Etienne RN) PRN Medication Order 06/20/2023 06/21/2023 06/22/2023 acetaminophen (TYLENOL) tablet 500-1,000 mg 500-1,000 mg, Oral, EVERY 6 HOURS PRN, mild pain, Starting on Fri06/16/23 at 2350, Maximum acetaminophen dose from all sources = 75 mg/kg/day not to exceed 4 gram 1354 ($Given - Provider: See Milton, IFRAH)1958 ($Given - Provider: Wilian Fischer, RN) 1541 ($Given - Provider: Lucille Day, IFRAH) 0816 ($Given - Provider: Lucille Day RN) albuterol (PROVENTIL HFA/VENTOLIN HFA) inhaler 2 [...] See Milton RN)1832 ($Given - Provider: Lucille Day RN) 0427 ($Given - Provider: Kallie Etienne RN)0958 ($Given - Provider: Lucille Day RN) HYDROcodone-acetaminophe [...] Chari Kwon RN)0830 ($Given - Provider: See Milton RN)1246 ($Given - Provider: See Milton, IFRAH)1636 ($Given [...] Wilian Fischer, IFRAH)2207 ($Given - Provider: Wilian Fischer RN) 0447 ($Given - Provider: Chari Kwon RN)1201 ($Given - Provider: See Milton RN)1541 ($Given - Provider: Lucille Day RN) 0816 ($Given - Provider: Lucille Day, IFRAH)1305 ($Given - Provider: Lucille Day, IFRAH)1800 ($Given [...] Mcgowan RN)0854 ($Given - Provider: Wilfrido Mcgowan RN)0832 ($Given - Provider: Wilfrido Mcgowan RN) naloxone [...] documented as of this encounter Care Teams Manager Casino Relationship Specialty Start Date End Date Andrew Israel PA-C [address] [place] [address] PCP - General 05/15/23 documented as of this encounter
--- OUTSIDE RECORDS SUMMARY | 2023-10-20 07:45 | XMS_ITS | Encounter Summary ---
Author Name Unknown Organization [place] Address [address] [place] [address] Care Team Providers Care It Teacher Name Role Phone Andrew Israel PA-C Primary Care Provider [phone] Reason for Visit * Reason Comments Allergic Reaction Encounter Details Date Type Department Care Team (Late st Contact Info) Description 05/15/2023 12:05 PM CDT - 05/15/2023 2:55 PM CDT Emergency [facility] Emergency Dept [address] [place] [address] Thomas Sosa MD [facility] [address] [place] [id number] Isreal Abarca MD [address] [place] [address] Allergic reaction, initial encounter Discharge Disposition: Home [...] sent through Care Everywhere. * Allergic Reaction (Rwandan) documented in this encounter Medications at Time of Discharge Medication Sig Dispensed Refills Start Date End Date acetaminophen (TYLENOL) 500 MG tabletIndications:R LQ abdominal [...] 200 mg by mouth At Bedtime 0 diphenhydrAMINE (BENADRYL) 25 MG capsule Take 1 capsule (25 mg) by mouth every 6 hours as needed for itching or allergies 30 capsule 0 05/15/2023 09/25/2023 predniSONE (DELTASONE) 20 MG tablet Take 2 [...] obeys commands Best Verbal Response 5-->(V5) oriented Pollock Coma Scale Score 15 * Emy Jung RN - 05/15/2023 12:05 PM CDT Bed: ED11 Expected date: Expected time: Means of arrival: Comments: [facility] allergic rxn- TRIAGE * Isreal Abarca MD - 05/15/2023 12:05 PM CDT History Chief Complaint: Allergic Reaction HPI Hortensia Buitrago is a 63 year old female with history of Crohn's disease who follows through [facility]. She had an ileocolic resection on [...] allergic reaction following an iron infusion through [facility]. She received Solu-Medrol and Benadryl prehospital. [...] Abarca MD 05/15/2023 Isreal Abarca MD 05/15/23 1441 documented in this encounter Plan of Treatment [...] minutes. 1237 ($Given - Provi courtney: Luna aPz RN) sodium chloride (PF) 0.9% PF flush [...] 1211 documented in this encounter Care Teams It Teacher Relationship Specialty Start Date End Date Andrew Israel PA-C [facility] [address] [place] [address] PCP - General 05/15/23 documented as of this encounter
--- OUTSIDE RECORDS SUMMARY | 2023-10-20 07:45 | XMS_ITS | Encounter Summary ---
Author Name Unknown Organization [place] Address [address] [place] [address] Care Team Providers Care Geothermal Technician Name Role Phone Andrew Israel PA-C Primary Care Provider [phone] Encounter Details Date Type Department Care Team [...] documented as of this encounter Care Teams Geothermal Technician Relationship Specialty Start Date End Date Andrew Israel PA-C [facility] [address] [facility] [place] [address] PCP - General 05/15/23 documented as of this encounter
--- OUTSIDE RECORDS SUMMARY | 2023-10-20 07:46 | XMS_ITS | Encounter Summary ---
Author Name Unknown Organization [facility] Address [address] [place] [address] Care Team Providers Care Lock Up Worker Name Role Phone No Ref-Primary, Physician Primary Care Provider Car Su DO Unavailable Reason for Visit * Reason Comments Abdominal Pain * Auth/Cert (Routine) Specialty Diagnoses / Procedures Referred By Esa carvajal Referred To Contact EMERGENCY MEDICINE Diagnoses Intractable abdominal pain Crohn's disease of colon with complication (H) Intractable abdominal pain Emergency Dept [address] [place] [address] Referral ID Status Reason Start Date Expiration Date Visits Re quested Visits Authorized [id number] 1 1 Encounter Details Date Type Department Care Team (Late st Contact Info) Description 03/19/2023 5:35 PM CDT - 03/26/2023 12:37 PM CDT Hospital Encounter [place] [address] Medical Surgical [address] [place] [phone] Mona Villarreal MD [facility] [address] [place] [address] Miryam Sebastian DO [facility] [address] [id number] Kai Su DO [address] [place], [place] [id number] Crohn's disease of colon with complication (H); [...] Colón MD - 03/26/2023 10:04 AM CDT [facility] Hospitalist Discharge Summary Date of Admission: [...] Dr. Madison Iverson ,Colon & Rectal Surgery [id number] [place] [address], [address] [place] [id number] within 2 - 4 weeks or hospital [...] blood loss anemia - Colorectal surgery following. Sparks to be secondary to an anastomotic bleed. [...] Remicade. Keep follow up appointment at [facility] in [place] scheduled, colonoscopy in 5-6 [...] minutes discharging this patient. Homar Colón MD [place] [address] MEDICAL SURGICAL [address] [facility] [address] Physical Exam Vital Signs: Temp: 97.7 ??F [...] Dr. Madison Iverson ,Colon & Rectal Surgery [id number] [place] [address], [address] [place] [address] within 2 - 4 weeks or hospital [...] W CONTRAST LOCATION: [facility] DATE: 03/19/2023 INDICATION: Abdominal pain. Crohn's disease. [...] Everywhere. * (S) EATING A LOW-FIBER DIET ([place] ISLANDER) * Diet, Low-Fiber (Ecuadorean) documented in this encounter Medications at Time [...] questions/paging, please contact the CRS office at [phone]. Roberta Ramirez PA-C Colon & Rectal Surgery [...] Iverson MD [facility] [address] [facility], [address] [place] [address] T: [phone] F: [phone] [email or web address] ADDENDUM: Length of stay: 5 days Indicate Y or N for the following: UTI No C diff No PNA No SSI No DVT No PE No CVA No TN No Enterocutaneous fistula No Peripheral nerve injury [...] questions/paging, please contact the CRS office at [phone]. Roberta Ramirez PA-C [facility] Colon and Rectal Surgery Attending Note Patient seen and examined independently. Agree with above assessment and plan. Frequent loose stools this after noon. No further blood abd soft, incision cdi Plan Oral steroids LFD Likely discharge home tomorrow. Madison Iverson MD [facility] [address] [facility], [address] [place] [address] T: [phone] F: [phone] [email or web address] * Homar Colón MD - 03/25/2023 10:12 AM CDT [facility] Medicine Progress Note - Hospitalist Service [...] blood loss anemia - Colorectal surgery following. Sparks to be secondary to an anastomotic bleed. [...] Remicade. Keep follow up appointment at [facility] [place], colonoscopy in 5-6 months. - Avoid [...] Destination: home Homar Colón MD Hospitalist Service [facility] Securely message with Artoo (more info) Text page via [facility] Paging/Directory Interval History Patient seen examined at [...] air) Weight: 160 lbs .86 oz Nurse floor steward/stewardess Mayela Constitutional: Pleasant woman seen sitting up [...] NUTRITION NEEDS Estimated Energy Needs: 1512 kcals/day ([place] [employer]) Justification: Maintenance and Overweight Estimated [...] Suarez MD - 03/24/2023 8:38 PM CDT [facility] Hospitalist Progress Note Assessment & Plan ASSESSMENT [...] blood loss anemia - Colorectal surgery following. Sparks to be secondary to an anastomotic bleed. [...] Remicade. Keep follow up appointment at [facility] in [place] scheduled, colonoscopy in 5-6 months. - Avoid NSAIDS. Lactic Acidosis - Present on admission. Suspect 2/2 hypovolemia. Resolved. RCC s/p nephrectomy w/ CKD Stage III - Cr at baseline - Avoid nephrotoxins DVT Prophylaxis: Enoxaparin (Lovenox) subcutaneous is now held with bleeding. SCDs are ordered. Code Status: Full Code Expected discharge: Pending post-operative course. Ella Suarez MD FACP Hospitalist Service [facility] Securely message with Artoo (more info) Text page via [facility] Paging/Directory Subjective Patient with one episode of [...] Hortensia, per admission request. She had company ([employer]) and requested that I come visit later, but requested prayer for healing and pain relief. We shared prayer together. Plan: I and other chaplains remain available for further support. Sam Lal Cnc Supervisor Sliver Lap Tender [facility] routine referrals *[id number] [facility] available 31/03 for emergent requests/referrals, either by paging the on-call forming acid dumper or by entering an BUSTER/STAT consult in [facility] (this will also page the on-call forming acid dumper). * Madison Iverson MD - 03/24/2023 10:53 [...] questions/paging, please contact the CRS office at [phone]. Roberta Ramirez PA-C Colon & Rectal Surgery [...] Iverson MD [facility] [address] [facility], [address] [place] [id number] T: [phone] F: [phone] [email or web address] * Subha Ball RN - 03/23/2023 [...] Suarez MD - 03/23/2023 5:00 PM CDT [facility] Hospitalist Progress Note Assessment & Plan ASSESSMENT [...] Remicade. Keep follow up appointment at [facility] in [place] scheduled, colonoscopy in 5-6 months. - Avoid NSAIDS Acute blood loss anemia - Colorectal surgery following. Sparks to be secondary to an anastomotic bleed. [...] surgery. Ella Suarez MD FACP Hospitalist Service [facility] Securely message with Artoo (more info) Text page via [facility] Paging/Directory Subjective Patient with blood reported from [...] Surgery Fellow [facility] [address] [place] [address] T: [phone] F: * Ritesh Leach, PT - 03/23/2023 [...] Transfers Transfers no deficits identified Gait/Stairs (Locomotion) Orondo Level (Gait) independent Distance in Feet 35 [...] Evaluation Time PT Eval, Low Complexity Minutes (60714) 24 PT Discharge Planning PT Plan Evaluation [...] incision and lap sited w/ liquid bandage, HOSPICE FELLOW. Salazar removed, pt voided. Pt needs encouragement [...] Suarez MD - 03/22/2023 1:01 PM CDT [facility] Hospitalist Progress Note Assessment & Plan ASSESSMENT [...] Remicade. Keep follow up appointment at [facility] in scheduled, colonoscopy in 5-6 months. - Avoid NSAIDS Lactic Acidosis - Suspect 2/2 hypovolemia. Resolved. RCC s/p nephrectomy w/ CKD Stage III - Cr at baseline - Avoid nephrotoxins DVT Prophylaxis: Enoxaparin (Lovenox) SQ Code Status: Full Code Expected discharge: Inpatient for another 2-3 more days depending on clinical progression after surgery. Ella Suarez [facility] Securely message with Artoo (more info) Text page via [facility] Paging/Directory Subjective Patient seen. Family at bedside. [...] Colorectal Surgery [facility] [address] [facility] [place] [address] T: [phone] F: [phone] * Subha Ball RN - 03/21/2023 6:47 PM CDT End of Shift Summary For vital signs and complete assessments, please see documentation flowsheets. Pertinent assessments: Pt A/Ox4. VSS. IV dilaudid given for abd pain. BS hypoactive. LS clear. HS regular Major Shift Events: Surgery today Treatment Plan: pain management, bowel management Bedside Nurse: Subha Ball RN * Candy Lennon APRN LUBRICATING SPECIALIST - 03/21/2023 12:32 PM CDT Images from [...] W CONTRAST LOCATION: [facility] DATE: 03/19/2023 ?? INDICATION: Abdominal pain. Crohn's [...] and loose stools since her discharge from [facility] about 3 weeks ago for [...] of Remicade, follow up appointment at [facility] in [place] scheduled, colonoscopy in 5-6 months -Avoid NSAIDS -No further GI recommendations at this time. We will sign off. Please call with any concerns or questions/reconsult as needed. Discussed with Dr. Saulo Lennon, LUBRICATING SPECIALIST [facility] Office: [phone] * Jassi Nolasco MD - 03/21/2023 9:38 AM CDT [facility] Hospitalist Progress Note Assessment & Plan ASSESSMENT [...] Nolasco MD - 03/20/2023 9:57 AM CDT [facility] Hospitalist Progress Note Assessment & Plan ASSESSMENT [...] Harris PA-C - 03/19/2023 11:35 PM CDT [facility] Admission History and Physical Examination NAME: Hortensia Buitrago : 1960 Date of Admission: 03/19/2023 Assessment & Plan Hortensia Buitrago is a 63 year old female with a PMH significant for Crohn's disease, asthma, migraines and renal cell cancer that was managed surgically with right nephrectomy in 2008 who presented toemergency room with complaints of ongoing abdominal pain [facility] [...] as well as colorectal surgery consult -Continue BILINGUAL LEGAL ASSISTANT oral steroids for now #Lactic acidosis -Resolved [...] abdominal pain [facility] [...] W CONTRAST LOCATION: [facility] DATE: 03/19/2023 INDICATION: Abdominal pain. Crohn's disease. [...] ALT 17 AST 18 Carolin Harris PA-C [facility] Medicine March 19, 2023 Securely message with the Crowdlinker Console (learn more here) Text page via [facility] Paging/Directory Associated attestation - Kai Su DO [...] Communication Assessment Patient's communication style: spoken language (Ecuadorean or Bilingual) Cognitive Cognitive/Neuro/Behavioral: WDL Living Environment: [...] arise. Laine Clemens RN Inpatient Care Coordination [facility] * Odalys Valladares RN - 03/20/2023 1:16 PM CDTAssociated Order(s): WOUND OSTOMY CONTINENCE NURSE IP CONSULT [facility] WOC Nurse Ostomy Marking and Education [...] operatively Odalys Valladares RN CWOCN Contact Via [facility] Nurse ([facility]) Dept. Office Number: [phone] * Roberta Ramirez PA-C - 03/20/2023 11:52 AM CDTAssociated Order(s): COLORECTAL SURGERY IP CONSULT [facility] Colon and Rectal Surgery Consult Note Name: [...] W CONTRAST LOCATION: [facility] DATE: 03/19/2023 INDICATION: Abdominal pain. Crohn's disease. [...] Hortensia Buitrago as part of a shared NON DESTRUCTIVE TESTING SUPERVISOR/PA visit. I personally reviewed the vital signs, [...] the patient): 03/20/23 * Candy Lennon, SUN LUBRICATING SPECIALIST - 03/20/2023 7:54 AM CDTAssociated Order(s): GASTROENTEROLOGY IP CONSULT Images from the original note were not included. GASTROENTEROLOGY CONSULTATION Hortensia Buitrago [address] [place] [id number] 63 year old female Admission Date/Time: 03/19/2023 [...] decreased stool output since her discharge from [facility] about 3 weeks ago for [...] W CONTRAST LOCATION: [facility] DATE: 03/19/2023 ?? INDICATION: Abdominal pain. Crohn's [...] decreased stool output since her discharge from [facility] about 3 weeks ago for [...] Total time: 50 minutes [facility]andy [facility] Office: [phone] Associated attestation - Ananda Vernon MD - [...] Harmon RN - 03/19/2023 9:28 PM CDT [facility] ED Nurse Handoff Report ED [...] standby. Lift room needed: No. Bariatric: No Funeral Director Needed: No Isolation: No. Infection: Not Applicable. [...] Bilirubin Urine Negative Ketones Urine Negative Specific Townsend Urine 1.005 Blood Urine Negative pH Urine [...] Bilirubin Urine Negative Ketones Urine Negative Specific Townsend Urine 1.005 Blood Urine Negative pH Urine [...] care of Dr. Su. Impression & Plan [facility] Diagnoses: None Medical Decision Making: Patient presents [...] Medication Reconciliation and Education - Blaine Hinson [facility] - 03/26/2023 11:53 AM CDT Discharge medication review for this patient is complete. Bfgz-sm-uorc medication education was provided by the pharmacist. See [facility] for allergy information, immunization status, [...] written materials and instructions (Clinical notes from [facility]) for new medications: Yes OUTCOMES: Patient verbalized [...] changeOverall Patient Progress: no change Pertinent assessments: [facility] cares [phone]. Pt A&Ox4, VSS, c/o abdominal pain, PRN [...] Bruno MD - 03/21/2023 6:52 PM CDT [facility] Brief Operative Note Pre-operative diagnosis: Crohn's [...] MD [facility] [phone]. ADDENDUM: PATIENT DATA Indicate Y or N: [...] assisted ileocolic resection SURGEON: Madison Iverson MD Material Handling Warehouse Supervisor: Roberta Ramirez PA-C and Dr. Bruno, [facility] colorectal surgery fellow ANESTHESIA: Tap block and [...] was excellent. We then lined up a eigy-vy-ktav functional end-to-end anastomosis. Colotomy and enterotomy were [...] want it insteadof omeprazole. Changes made to BILINGUAL LEGAL ASSISTANT medication list: ??? Added: None ??? Deleted: [...] Medication Sig Last Dose Taking? Auth Provider Longterm End Date acetaminophen (TYLENOL) 650 MG CR [...] platelets and differential (03/26/2023 6:59 AM CDT) [facility] WBC Count 7.2 4.0 - 11.0 10e3/uL [...] 6:59 AM CDT 03/26/2023 7:07 AM CDT Homra Colón MD LAB - BLOOD ORDERABL ES LABORATORY [facility] [address] Lab (1st floor, no room number) [place] [address], [facility] [phone] * Extra Green Top Tube (LAB USE ONLY) (03/26/2023 6:59 AM CDT) Hold Specimen JI 03/26/2023 8:16 AM CDT LABORATORY Blood STRUCTURE OF RIGHT HAND / Unknown Venipuncture / Unknown 03/26/2023 6:59 AM CDT 03/26/2023 7:07 AM CDT Mona Villarreal MD LAB - BLOOD ORDERABL ES Performing Organization Address City/[facility]/ZIP Co de Phone Number LABORATORY [facility] [address] Lab (1st floor, no room number) [place] [address], [facility] [phone] * (ABNORMAL) Basic metabolic panel (03/25/2023 6:38 AM CDT) Sodium 143 136 - 145 mmol/L 03/25/2023 7:15 AM CDT LABORATORY Potassium 3.9 3.4 - 5.3 mmol/L 03/25/2023 7:15 AM CDT LABORATORY Chloride 107 98 - 107 mmol/L 03/25/2023 7:15 AM CDT LABORATORY Carbon Dioxide (CO2) 29 22 - 29 mmol/L 03/25/2023 7:15 AM CDT LABORATORY Anion Gap 7 7 - 15 mmol/L 03/25/2023 7:15 AM CDT LABORATORY Urea Nitrogen 12.7 8.0 - 23.0 mg/dL 03/25/2023 7:15 AM CDT LABORATORY Creatinine 1.00(H) 0.51 - 0.95 mg/dL 03/25/2023 7:15 AM CDT RH LABORATORY Calcium 8.5(L) 8.8 - 10.2 mg/dL 03/25/2023 7:15 AM CDT [facility] LABORATORY Glucose 94 70 - 99 mg/dL 03/25/2023 7:15 AM CDT [facility] LABORAT[facility] GFR Estimate 63 >60 mL/min/1.7 3m2 03/25/2023 7:15 AM CDT [facility] LABORATORY Blood STRUCTURE OF RIGHT UPPER LIMB / Unknown Venipuncture / Unknown 03/25/2023 6:38 AM CDT 03/25/2023 6:55 AM CDT Ella Suarez MD LAB - BLOOD ORDER NATALIIA [facility] LABORATORY [facility] [address] Lab (1st floor, no room number) [place] [address], [facility] [phone] * (ABNORMAL) CBC with platelets (03/25/2023 6:38 [...] MD LAB - BLOOD ORDERA BLES LABORATORY [facility] [address] Lab (1st floor, no room number) [place] [address], [facility] [phone] * (ABNORMAL) Hemoglobin (03/24/2023 9:04 PM CDT) Hemoglobin 9.2(L) 11.7 - 15.7 g/dL 03/24/2023 9:30 PM CDT RH LABORATORY Blood STRUCTURE OF LEFT UPPER LIMB / Unknown Venipuncture / Unknown 03/24/2023 9:04 PM CDT 03/24/2023 9:22 PM CDT Ella Suarez MD LAB - BLOOD ORDER NATALIIA Performing Organization Address City/[facility]/ZIP Co de Phone Number LABORATORY [facility] [address] Lab (1st floor, no room number) [place] [address], [facility] [phone] * (ABNORMAL) CBC with platelets and differential [...] MD LAB - BLOOD ORDER NATALIIA LABORATORY [facility] [address] Lab (1st floor, no room number) [place] [address], [facility] [phone] * (ABNORMAL) Basic metabolic panel (03/24/2023 6:58 AM CDT) [facility] Signature Sodium 139 136 - 145 mmol/L 03/24/2023 [...] MD LAB - BLOOD ORDER NATALIIA LABORATORY [facility] [address] Lab (1st floor, no room number) [place] [address], [facility] [phone] * (ABNORMAL) Hemoglobin (03/23/2023 10:11 PM CDT) Hemoglobin 9.4(L) 11.7 - 15.7 g/dL 03/23/2023 10:25 PM CDT RH LABORATORY Blood STRUCTURE OF LEFT UPPER LIMB / Unknown Venipuncture / Unknown 03/23/2023 10:11 PM CDT 03/23/2023 10:22 PM CDT Ella Suarez MD LAB - BLOOD ORDER NATALIIA [facility] [address] Lab (1st floor, no room number) [place] [address], [facility] [phone] * (ABNORMAL) Hemoglobin (03/23/2023 5:23 PM CDT) Hemoglobin 9.6(L) 11.7 - 15.7 g/dL 03/23/2023 5:28 PM CDT [facility] LABORATORY Blood STRUCTURE OF LEFT UPPER LIMB / Unknown Venipuncture / Unknown 03/23/2023 5:23 PM CDT 03/23/2023 5:25 PM CDT Madison Iverson MD LAB - BLOOD ORDERA BLES [facility] Lab [address] Lab (1st floor, no room number) [place] [address], [facility] [phone] * Transfuse red blood cells (unit) (03/23/2023 4:18 PM CDT) Issa Bruno MD BLOOD TRANSFUSION OR DERABLES * Transfuse red blood cells (unit), 1 Units (03/23/2023 4:18 PM CDT) Issa Bruno MD BLOOD TRANSFUSION OR DERABLES * Prepare red blood cells (unit) (03/23/2023 11:32 AM CDT) Blood Component Type Red Blood Cells RH BLOOD BANK Product Code [id number] RH BLOO D BANK Unit Status Transfused RH BLOO D BANK Unit Number [id number] RH B LOOD BANK CROSSMATCH Compatible RH BLOOD BANK CODING SYSTEM [id number] RH BLO OD BANK ISSUE DATE AND TIME [id number] RH BLOOD BANK UNIT ABO/RH A+ RH BLOOD BANK UNIT TYPE ISBT 6200 RH BL OOD BANK 03/23/2023 11:3 2 AM CDT Issa Bruno MD BLOOD BANK PRODUCT O RDERABLES RH BLOOD BANK [address] [place] [address], [facility] * (ABNORMAL) CBC with platelets and [...] LAB - BLOOD ORDER NATALIIA RH LABORATORY [facility] [address] Lab (1st floor, no room number) [place] [address], [facility] [phone] * (ABNORMAL) Basic metabolic panel (03/23/2023 6:07 AM CDT) Sodium 139 136 - 145 mmol/L 03/23/2023 6:40 AM CDT RH LABORATORY Potassium 4.2 3.4 - 5.3 mmol/L 03/23/2023 6:40 AM CDT LABORATORY Chloride 106 98 - 107 mmol/L 03/23/2023 6:40 AM CDT LABORATORY Carbon Dioxide (CO2) 26 22 - 29 mmol/L 03/23/2023 6:40 AM CDT LABORATORY Anion Gap 7 7 - 15 mmol/L 03/23/2023 6:40 AM CDT LABORATORY Urea Nitrogen 29.0(H) 8.0 - 23.0 mg/dL 03/23/2023 6:40 AM CDT RH LABORATORY Creatinine 1.05(H) 0.51 - 0.95 mg/dL [...] MD LAB - BLOOD ORDER NATALIIA LABORATORY [facility] [address] Lab (1st floor, no room number) [place] [address] [phone] * (ABNORMAL) Hemoglobin (03/22/2023 4:11 PM CDT) [facility] Hemoglobin 8.8(L) 11.7 - 15.7 g/dL 03/22/2023 4:18 PM CDT LABORATORY Blood STRUCTURE OF LEFT UPPER LIMB / Unknown Venipuncture / Unknown 03/22/2023 4:11 PM CDT 03/22/2023 4:15 PM CDT Issa Bruno MD LAB - BLOOD ORDERABL ES RH LABORATORY [facility] [address] Lab (1st floor, no room number) [place] [address], [facility] [phone] * (ABNORMAL) CBC with platelets (03/22/2023 6:38 [...] MD LAB - BLOO D ORDERABLES LABORATORY [facility] [address] Lab (1st floor, no room number) [place] [address], [facility] [phone] * (ABNORMAL) Basic metabolic panel (03/22/2023 6:38 AM CDT) Sodium 139 136 - 145 mmol/L 03/22/2023 [...] Nolasco MD LAB - BLOO D ORDERABLES RH LABORATORY [facility] [address] Lab (1st floor, no room number) [place] [address], [facility] [phone] * (ABNORMAL) Creatinine (03/21/2023 9:28 PM CDT) Creatinine 0.99(H) 0.51 - 0.95 mg/dL 03/21/2023 9:52 PM CDT RH LABORATORY GFR Estimate 63 >60 mL/min/1.7 3m2 03/21/2023 9:52 PM CDT RH LABORATORY Blood STRUCTURE OF LEFT UPPER LIMB / Unknown Venipuncture / Unknown 03/21/2023 9:28 PM CDT 03/21/2023 9:34 PM CDT Madison Iverson MD LAB - BLOOD ORDERA BLES LABORATORY [facility] [address] [facility] Lab (1st floor, no room number) [place] [address], [facility] [phone] * Surgical Pathology Exam (03/21/2023 5:39 PM CDT) Case Report Surgical Pathology Report ? Case: [id number] ? Authorizing Provider: ??Madison Iverson MD ?Collected: ? 03/21/2023 05:39 PM ? Ordering Location: ? [facility] ?? Received: ?03/21/2023 06:19 PM ? [...] Sectioning reveals no discrete lesions or masses. Ticket Machine Operator sections are submitted. Summary of sections: A1-en face proximal margin, split sections A2-en face distal margin, split sections Y9-T3-wdbzmbotbhzbub terminal ileum mucosa sequentially submitted from proximal to distal every 10 cm A6-ileocecal valve A7-cecal mucosa (BRETT [facility] CM) 03/27/2023 3:28 PM CDT LABORATORY Microscopic Description Microscopic examination was performed. Case was reviewed intradepartmentally 03/27/2023 3:28 PM [facility] LABORATORY Performing Labs The technical component of this testing was completed at [facility] 03/27/2023 3:28 PM CDT RH LABORATORY Case Images 03/27/2023 3:28 PM CDT RH LABORATORY Resection STRUCTURE OF DISTAL PORTION OF ILEUM / Unknown 03/21/2023 5:39 PM CDT 03/21/2023 6:19 PM CDT Madison Iverson MD LAB - GERBER AP LABORATORY [facility] [address] Lab (1st floor, no room number) [place] [address], [place] [phone] * (ABNORMAL) Glucose by meter (03/21/2023 1:38 PM CDT) GLUCOSE BY METER POCT 107(H) 70 - 99 mg/dL 03/21/2023 1:45 PM CDT RH LABORATORY POC Blood, Capillary BLOOD SPECIMEN / Unknown 03/21/2023 1:38 PM CDT 03/21/2023 1:45 PM CDT Mona CAZARES - GERBER POCT LABORATORY [facility] [address] Lab (1st floor, no room number) [place] [address], [place] [phone] * Adult Type and Screen (03/20/2023 12:12 PM CDT) ABO/RH(D) A POS 03/20/2023 12:03 PM CDT RH BLOOD BANK Antibody Screen Negative Negative 03/20/2023 12:03 PM CDT RH BLOOD BANK SPECIMEN EXPIRATION DATE [id number] 03/20/2023 12:03 PM CDT RH BLOOD BANK Blood STRUCTURE OF LEFT UPPER LIMB / Unknown Venipuncture / Unknown 03/20/2023 12:12 PM CDT 03/20/2023 12:16 PM CDT Roberta Ramirez PA-C LAB - BLOOD BANK T EST ORDER BLOOD BANK [place] [address], [facility] * Prealbumin (03/20/2023 12:12 PM CDT) Prealbumin 39 15 - 45 mg/dL 03/21/2023 12:15 PM CDT SPECIALTY CORE/PROT/ENDO Blood STRUCTURE OF LEFT UPPER LIMB / Unknown Venipuncture / Unknown 03/20/2023 12:12 PM CDT 03/20/2023 12:16 PM CDT Roberta Ramirez PA-C LAB - BLOOD ORDERA BLES SPECIALTY CORE/PROT/ENDO Specialty Core/Prot/Endo [address] [facility], Room [address] [phone] * (ABNORMAL) CBC with platelets (03/20/2023 8:06 [...] - 450 10e3/uL 03/20/2023 8:19 AM CDT LABORATORY Blood STRUCTURE OF RIGHT HAND / Unknown Venipuncture / Unknown 03/20/2023 8:06 AM CDT 03/20/2023 8:16 AM CDT Carolin Harris PA-C LAB - BLOOD ORDER NATALIIA LABORATORY [facility] [address] Lab (1st floor, no room number) [place] [address], [facility] [phone] * (ABNORMAL) Basic metabolic panel (03/20/2023 8:06 [...] - 99 mg/dL 03/20/2023 8:37 AM CDT LABORATORY GFR Estimate 60(L) >60 mL/min/1.7 3m2 03/20/2023 8:37 AM CDT LABORATORY Blood STRUCTURE OF RIGHT HAND / Unknown Venipuncture / Unknown 03/20/2023 8:06 AM CDT 03/20/2023 8:17 AM CDT Carolin Harris PA-C LAB - BLOOD ORDER NATALIIA [facility] [address] Lab (1st floor, no room number) [place] [address], [facility] [phone] * Lactic acid whole blood (03/19/2023 9:30 PM CDT) Lactic Acid 1.0 0.7 - 2.0 mmol/L 03/19/2023 9:38 PM CDT LABORATORY Blood BLOOD SPECIMEN / Unknown Venipuncture / Unknown 03/19/2023 9:30 PM CDT 03/19/2023 9:36 PM CDT Mona Villarreal MD LAB - BLOOD ORDERABL ES Performing Organization Address [facility]/ZIP Co de Phone Number [facility] [address] Lab (1st floor, no room number) [place] [address], [facility] [phone] * CT Abdomen Pelvis w Contrast (03/19/2023 [...] W CONTRAST LOCATION: [facility] DATE: 03/19/2023 INDICATION: Abdominal pain. Crohn's disease. [...] W CONTRAST LOCATION: [facility] DATE: 03/19/2023 INDICATION: Abdominal pain. Crohn's disease. [...] No bowel obstruction. Noabscess. Mona Villarreal MD IM CT ORDERABLES * (ABNORMAL) Lactic acid whole blood (03/19/2023 7:09 PM CDT) Lactic Acid 2.1(H) 0.7 - 2.0 mmol/L 03/19/2023 7:17 PM CDT RH LABORATORY Blood BLOOD SPECIMEN / Unknown Venipuncture / Unknown 03/19/2023 7:09 PM CDT 03/19/2023 7:16 PM CDT Mona Villarreal MD LAB - BLOOD ORDERABL ES LABORATORY [facility] [address] Lab (1st floor, no room number) [place] [address], [facility] [phone] * (ABNORMAL) UA with Microscopic reflex to Culture (03/19/2023 6:16 PM CDT) Color Urine Straw Colorless, Straw, Light Yellow, Yellow 03/19/2023 6:30 PM CDT LABORATORY Appearance Urine Clear Clear 03/19/20 6:30 PM CDT LABORATORY Glucose Urine Negative Negative mg/dL 03/19/2023 6:30 PM CDT LABORATORY Bilirubin Urine Negative Negative 6:30 PM CDT LABORATORY Ketones Urine Negative Negative mg/dL 03/19/2023 6:30 PM CDT LABORATORY Specific [place]send Urine 1.005 1.003 - 1.035 03/19/2023 6:30 PM CDT LABORATORY Blood Urine Negative Negative 03/19/2023 6:30 PM CDT LABORATORY pH Urine 5.5 5.0 - 7.0 03/19/2023 6:30 PM CDT LABORATORY Protein Albumin Urine Negative Negative mg/dL 03/19/2023 6:30 PM CDT LABORATORY Urobilinogen Urine Normal Normal, 2.0 mg/dL 03/19/2023 6:30 PM CDT LABORATORY Nitrite Urine Negative Negative 03/19/2023 6:30 PM CDT LABORATORY Leukocyte Esterase Urine Negative Negative 03/19/2023 6:30 PM CDT LABORATORY Mucus Urine Present(A) None Seen /LPF 03/19/2023 6:30 PM CDT LABORATORY RBC Urine <1 <=2 /HPF 03/19/2023 [...] Villarreal MD LAB - URINE ORDERABL ES RH LABORATORY [facility] [address] [facility] Lab (1st floor, no room number) [place] [address], [facility] [phone] * Hepatic function panel (03/19/2023 3:30 PM [...] Villarreal MD LAB - BLOOD ORDERABL ES [facility] [address] Lab (1st floor, no room number) [place] [address], [facility] [phone] * Extra Red Top Tube (03/19/2023 3:30 PM CDT) Hold Specimen [facility] 03/19/2023 4:47 PM CDT RH LABORATORY Blood STRUCTURE OF RIGHT UPPER LIMB / Unknown Venipuncture / Unknown 03/19/2023 3:30 PM CDT 03/19/2023 3:34 PM CDT Mona Villarreal MD LAB - BLOOD ORDERABL ES Performing Organization Address City/[facility]/ZIP Co de Phone Number [facility] [address] Lab (1st floor, no room number) [place] [address], [facility] [phone] * Extra Blue Top Tube (03/19/2023 3:30 PM CDT) Hold Specimen [facility] 03/19/2023 4:47 PM CDT RH LABORATORY Blood STRUCTURE OF RIGHT UPPER LIMB / Unknown Venipuncture / Unknown 03/19/2023 3:30 PM CDT 03/19/2023 3:34 PM CDT Mona Villarreal MD LAB - BLOOD ORDERABL ES [facility] [address] Lab (1st floor, no room number) [place] [address], [place] [phone] * (ABNORMAL) Basic metabolic panel (BMP) (03/19/2023 3:30 PM CDT) Sodium 138 136 - 145 mmol/L 03/19/2023 3:57 PM CDT RH LABORATORY Potassium 4.7 3.4 - 5.3 mmol/L 03/19/2023 3:57 PM CDT RH LABORATORY Chloride 101 98 - 107 mmol/L 03/19/2023 3:57 PM CDT RH LABORATORY Carbon Dioxide (CO2) 26 22 - 29 mmol/L 03/19/2023 3:57 PM CDT RH LABORATORY Anion Gap 11 7 - 15 mmol/L 03/19/2023 3:57 PM CDT RH LABORATORY Urea Nitrogen 10.0 8.0 - 23.0 mg/dL 03/19/2023 3:57 PM CDT LABORATORY Creatinine 1.14(H) 0.51 - 0.95 mg/dL 03/19/2023 3:57 PM CDT RH LABORATORY Calcium 9.4 8.8 [...] MD LAB - BLOOD ORDERABL ES LABORATORY [facility] [address] Lab (1st floor, no room number) [place] [address], [facility] [phone] * (ABNORMAL) CBC (platelets, no diff) (03/19/2023 [...] MD LAB - BLOOD ORDERABL ES LABORATORY [facility] [address] [facility] (1st floor, no room number) [place] [address], [facility] [phone] documented in this encounter Visit Diagnoses Diagnosis [...] BEDTIME, First dose on Betty 03/20/23 at 0005, DO NOT CRUSH. Formulary alternate [...] pain or per patient request, Starting on Betty 03/20/23 at 0000, Alternate with ibuprofen if ordered. [...] TIMES DAILY BEFORE MEALS, First dose on Fri03/20/23 at 1100 $Given 03/26/2023 6:19 AM CDT [...] opioid interventions if ordered, Starting on Betty 23 at 0000, May use concomitant with non-opioid [...] analgesic side effects. Hold while on IV [employer]IST[employer] PLANNING ENGINEER or with regular IV opioid dosing. $Given [...] analgesic side effects. Hold while on IV [employer]IST[employer] PLANNING ENGINEER or with regular IV opioid dosing. $Given [...] analgesic side effects. Hold while on IV [employer]IST[employer] PLANNING ENGINEER or with regular IV opioid dosing. $Given [...] 17 g, Oral, DAILY, First dose on Fri03/20/23 at 0800, 1 Packet = 17 grams. [...] 10 mg, Oral, DAILY, First dose on 03/24/23 at 1700 $Given 03/26/2023 9:22 AM CDT [...] Oral, 2 TIMES DAILY, First dose on Betty 03/20/23 at 0800, If no bowel movement in [...] 75 mg/kg/day not to exceed 4 grams/day. 2791 ($Given - Provider: Carmella Conway RN)8966 ($Given - Provider: Mayela Fung RN) enoxaparin [...] TIMES DAILY BEFORE MEALS, First dose on Fri03/20/23 at 1100 0908 ($Given - Provider: Mayela [...] in taper 0948 ($Given - Provider: Mayela Fung, IFRAH) montelukast (SINGULAIR) tablet 10 mg 10 mg, Oral, AT BEDTIME, First dose on Fri03/20/23 at 0005 2203 ($Given - Provider: Liberty Louis RN) 2135 ($Given - Provider: Candy Michel, IFRAH) multivitamin, therapeutic (THERA-VIT) tablet 1 tablet 1 tablet, Oral, DAILY, First dose on Fri03/25/23 at 0900 0815 ($Given - Provider: Mayela Fung RN) 0922 ($Given - Provider: Mayela Fung, IFRAH) nortriptyline (PAMELOR) capsule 25 mg 25 [...] analgesic side effects. Hold while on IV LOGISTICS PLANNING ENGINEER or with regular IV opioid dosing. 0154 ($Given - Provider: Carmella Conway RN)0959 ($Given - Provider: Mayela Fung RN)1953 ($Given - Provider: Liberty Heriberto, RN) 1411 ($Given - Provider: Mayela Fung RN)2138 ($Given - Provider: Candy Michel RN) 0159 (See Alternative - Provider: Stephanie Chawla RN)0619 (See Alternative - Provider: Stephanie Chawla RN) HYDROmorphone (DILAUDID) tablet 4 mg(Linked Group 3) 4 mg, Oral, EVERY 4 HOURS PRN, severe pain, Starting on Fri03/21/23 at 2046, Hold oral PRN dose for analgesic side effects. Notify provider to assess for uncontrolled pain or analgesic side effects. Hold while on IV LOGIST[employer] PLANNING ENGINEER or with regular IV opioid dosing. 0154 (See Alternative - Provider: Carmella Conway RN)0959 (See Alternative - Provider: Mayela Fung RN)1952 (See Alternative - Provider: Liberty Louis RN) 141 (See Alternative - Provider: Mayela Fung RN)2138 (See Alternative - Provider: Candy Michel RN) 015 ($Given - Provider: Stephanie Chawla RN)0619 ($Given - Provider: Stephanie Chawla, IFRAH) lidocaine [...] TIMES DAILY PRN, muscle spasms, Starting on Betty 03/20/23 at 0000 2229 ($Given - Provider: Liberty Louis, RN) 0020 ($Given - Provider: Stephanie Chawla, IFRAH)0934 ($Given - Provider: Mayela Fung RN) naloxone [...] 2 MIN PRN, opioid reversal, Starting on [facility] 03/20/23 at 1023, Administer intravenous route when [...] 2 MIN PRN, opioid reversal, Starting on [facility] 03/20/23 at 1023, Administer intramuscular if an [...] over 2-5 Minutes, Starting on Fri03/21/23 at 2046, Give IF patient unable to tolerate oral [...] 2 TIMES DAILY PRN, constipation, Starting on Fri03/20/23 at 0000, Hold for loose stools. sodium [...] PRN, moderate pain, Starting on Fri03/21/23 at 7, Hold oral PRN dose for analgesic side effects. Notify provider to assess for uncontrolled pain or analgesic side effects. Hold while on IV [employer]IST[employer] PLANNING ENGINEER or with regular IV opioid dosing. Or HYDROmorphone (DILAUDID) tablet 4 mgJump to med 4 mg, Oral, EVERY 4 HOURS PRN, severe pain, Starting on Fri03/21/23 at 2046, Hold oral PRN dose for analgesic side effects. Notify provider to assess for uncontrolled pain or analgesic side effects. Hold while on IV LOGIST[employer] PLANNING ENGINEER or with regular IV opioid dosing. Group [...] (ZOFRAN). documented in this encounter Care Teams Lock Up Worker Relationship Specialty Start Date End Date No Ref-Primary, Physician PCP - General 02/10/23 05/14/23 Car Su DO [address] [place] [address] Assigned Pain Medication Provider 02/22/23 03/21/23 documented as of this encounter
--- OUTSIDE RECORDS SUMMARY | 2023-10-20 07:46 | XMS_ITS | Encounter Summary ---
Author Name Unknown Organization [place] Address [address] [place] [id number] Care Team Providers Care Staff Electronic Warfare Officer Name Role Phone No Ref-Primary, Physician Primary [...] documented as of this encounter Care Teams Staff Electronic Warfare Officer Relationship Specialty Start Date End Date No Ref-Primary, Physician PCP - General 02/10/23 05/14/23 documented as of this encounter
--- OUTSIDE RECORDS SUMMARY | 2023-10-20 07:46 | XMS_ITS | Encounter Summary ---
Author Name Unknown Organization [facility] Address [address] [place] [address] Care Team Providers Care Artificial Teeth Inspector Name Role Phone No Ref-Primary, Physician Primary Care Provider Reason for Visit * Reason Comments Dizziness * Auth/Cert (Routine) Specialty Diagnoses / Procedures Referred By Contac t Referred To Contact Med Surg Diagnoses Dizziness Abnormal stools History of colon surgery Abdominal pain, unspecified abdominal location Dizziness History of colon surgery Abdominal pain, unspecified abdominal location Abnormal stools Observation Dept [address] [place] [address] Referral ID Status Reason Start Date Expiration Date Visits Re quested Visits Authorized [id number] 1 1 Encounter Details Date Type Department Care Team (Late st Contact Info) Description 03/31/2023 4:16 PM CDT - 04/02/2023 1:29 PM CDT [facility] Observation Dept [address] [place] [address] Stan Toure MD [facility] [address] [place], [place] [address] Aiden Borjas MD [address] [place] [address] RLQ abdominal pain (Primary Dx); [...] Hooks PA-C - 04/02/2023 1:29 PM CDT [facility] Hospitalist Discharge Summary Date of Admission: 03/31/2023 [...] questions, please contact the CRS office at [phone]. ?? Unresulted Labs Ordered in the Past [...] and duodenal biopsies were normal. 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 Chronic kidney disease Renal [...] questions, please contact the CRS office at [phone]. ?? Activity Your activity upon discharge: activity [...] EXAM: CT ABDOMEN PELVIS W CONTRAST LOCATION: [facility] DATE: 03/31/2023 INDICATION: Abd pain, recent iliocolic [...] questions/paging, please contact the CRS office at [phone]. 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 Data PAST 24 HR DATA REVIEWED [id number]} Associated attestation - Aiden Borjas MD - [...] questions/paging, please contact the CRS office at [phone]. Roberta Ramirez PA-C [facility] [...] Iverson MD [facility] [address], [address] [place] [address] T: [phone] F: [phone] [email or web address] documented in this encounter H&P Notes * Odalys Knight PA-C - 03/31/2023 8:49 PM CDT [facility] History and Physical - Hospitalist Service [...] Toure . Odalys Knight PA-C Hospitalist Service [facility] Securely message with Soundsupply (more info) Text page via [facility] Paging/Directory Chief Complaint Abd pain History is [...] EXAM: CT ABDOMEN PELVIS W CONTRAST LOCATION: [facility] DATE: 03/31/2023 INDICATION: Abd pain, recent iliocolic [...] please call if needs arise. Peggy Strong TUB CHUCKER Inpatient Care Coordination [facility] * Issa Bruno MD - 03/31/2023 5:14 PM CDT Images from the original note were not included. 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 Postop day 10 Having loose bowel movements. No bleeding. No narcotics recently although did get to yesterday. C. difficile negative Abdomen soft with focal right lower quadrant tenderness without rebound or guarding. Plan: Okay to resume low fiber diet. We will start low-dose oral Flagyl to help with perianastomotic inflammation. Will allow for outpatient follow-up with [facility] for Remicade typically 4 weeks after surgery [...] Roberson RN - 03/31/2023 10:10 PM CDT [facility] ED Nurse Handoff Report ED Chief complaint: [...] standby. Lift room needed: No. Bariatric: No Almond Sorter Needed: No Isolation: Yes. Infection: Not [...] Bilirubin Urine Negative Ketones Urine Negative Specific Kathleen Urine 1.010 Blood Urine Negative pH Urine [...] stopped): 4:30 PM Originating Location (pt. Location): [facility] Distant Location (provider location): [facility] Mode of Communication: Video Conference via [employer] Patient verbally consented to [facility] televisit. History: This patient is a 63-year-old [...] from a 1 week hospitalization here at [facility], she had been admitted for anemia [...] may be normal variant. Rate 84 bpm. HI interval 138 ms. QRS duration 76 ms. [...] Bilirubin Urine Negative Ketones Urine Negative Specific Kathleen Urine 1.010 Blood Urine Negative pH Urine [...] Return to near baseline physical activity: Yes Membership Administrator Nurse Safe discharge environment identified: Yes Barriers [...] Return to near baseline physical activity: Yes Membership Administrator Nurse Safe discharge environment identified: Yes Barriers [...] Return to near baseline physical activity: Yes Membership Administrator Nurse Safe discharge environment identified: Yes Barriers [...] Return to near baseline physical activity: Yes Membership Administrator Nurse Safe discharge environment identified: Yes Barriers [...] for discharge by consultants (if involved): No Membership Administrator Nurse Safe discharge environment identified: Yes Barriers [...] shower, patient's IV became wet and loose. Customer Security Clerk tried to change the dressing but the [...] for discharge by consultants (if involved): No Membership Administrator Nurse Safe discharge environment identified: Yes Barriers [...] * Pharmacy-Admission Medication History - Ron Villagomez [facility] - 04/01/2023 9:18 AM CDT Pharmacist Admission Medication History Admission medication history is complete. The information provided in this note is only as accurateas the sources available at the time of the update. Medication reconciliation/reorder completed by provider prior to medication history? Yes Information Source(s): Patient, [facility] records[facility] Pertinent Information: None Changes made to TURRET PUNCH PRESS OPERATOR medication list: Added: Cyanocobalamin inj, Infliximab inj [...] Medication Sig Last Dose Taking? Auth Provider Care Home End Date acetaminophen (TYLENOL) 650 MG CR [...] for discharge by consultants (if involved): No Membership Administrator Nurse Safe discharge environment identified: Yes Barriers [...] for discharge by consultants (if involved): No Membership Administrator Nurse Safe discharge environment identified: Yes Barriers [...] Return to near baseline physical activity: Yes Membership Administrator Nurse Safe discharge environment identified: Yes Barriers [...] SW consult): Home w/ spouse Facility name: cashier and salesperson: Dominic [phone] Activity level at baseline: Ind Activity level [...] documented in this encounter Plan of Treatment Scheduled Orders Name Type Priority Associated Diagnoses [...] CBC with platelets (04/02/2023 6:22 AM CDT) WBC Count 7.3 4.0 - 11.0 10e3/uL [...] LAB - BLOOD ORD ERABLES [facility] LABORATORY [facility] Acute Care Lab [address] Lab (1st floor, no room number) [place] [address], [facility] [phone] * (ABNORMAL) Basic metabolic panel (04/02/2023 6:22 AM CDT) Pathologist [facility] Sodium 145 136 - 145 mmol/L 04/02/2023 6:59 AM CDT [facility] LAB[facility] Potassium 3.7 3.4 - 5.3 mmol/L 04/02/2023 6:59 AM CDT [facility] LAB[facility] Chloride 110(H) 98 - 107 mmol/L [...] PA-C LAB - BLOOD ORD ERABLES LABORATORY [facility] Acute [facility] [address] Lab (1st floor, no room number) [place] [address], [facility] [phone] * Enteric Bacteria and Virus Panel PCR (04/01/2023 8:14 AM CDT) Campylobacter species Negative Negative 04/01/2023 12:45 PM [...] PM CDT Assay performed using the FDA-cleared Blued GI Panel from [employer] ??A negative result should not rule [...] by the Infectious Diseases Diagnostic Laboratory at [facility]. This laboratory is certified under the Clinical Laboratory Improvement Amendments of 1988 (CLIA-88) as qualified to perform high complexity clinical laboratory testing. Odalys Knight PA-C LAB - MICRO GENE RAL ORDERABLES [facility] ID[facility] LABORAT[facility] Inf. Diseases Diag. Lab [address] [place] [address], [facility] [phone] * C. difficile Toxin B PCR with reflex to C. difficile Antigen and Toxins A/B EIA (04/01/2023 8:13 AMCDT) [facility] C Difficile Toxin B by PCR [...] LABORATORY - 04/01/2023 11:56 AM CDT The [employer] Xpert C. difficile Assay, performed on the [employer]?? Instrument Systems, is a qualitative in vitro [...] MICRO GENE RAL ORDERABLES [facility] Inf. Diseases Diag. Lab [address] [place] [address], [facility] [phone] * Adult Type and Screen (04/01/2023 7:58 AM CDT) ABO/RH(D) A POS 04/01/2023 7:48 AM CDT RH BLOOD BANK Antibody Screen Negative Negative 04/01/2023 7:48 AM CDT RH BLOOD BANK SPECIMEN EXPIRATION DATE [id number] 04/01/2023 7:48 AM CDT RH BLOOD BANK Blood STRUCTURE OF RIGHT UPPER LIMB / Unknown Venipuncture / Unknown 04/01/2023 7:58 AM CDT 04/01/2023 8:13 AM CDT Jackie Hooks PA-C LAB - BLOOD BAN K TEST ORDER BLOOD BANK [address] [place] [address], [facility] * (ABNORMAL) CBC with platelets (04/01/2023 7:02 [...] - 36.5 g/dL 04/01/2023 7:32 AM CDT LABORATORY RDW 15.3(H) 10.0 - 15.0 % 04/01/2023 7:32 AM CDT LABORATORY Platelet Count 339 150 - 450 10e3/uL 04/01/2023 7:32 AM CDT LABORATORY Blood STRUCTURE OF RIGHT UPPER LIMB / Unknown Venipuncture / Unknown 04/01/2023 7:02 AM CDT 04/01/2023 7:28 AM CDT Odalys Knight PA-C LAB - BLOOD RUSS SINGH LABORATORY [facility] Acute Care Lab [address] Lab (1st floor, no room number) [place] [address], [facility] [phone] * (ABNORMAL) Basic metabolic panel (04/01/2023 7:02 AM CDT) Sodium 141 136 - 145 mmol/L 04/01/2023 7:51 AM CDT LABORATORY Potassium 3.6 3.4 - 5.3 mmol/L 04/01/2023 7:51 AM CDT LABORATORY Chloride 109(H) 98 - 107 mmol/L 04/01/2023 7:51 AM CDT LABORATORY Carbon Dioxide (CO2) 24 22 - 29 mmol/L 04/01/2023 7:51 AM CDT LABORATORY Anion Gap 8 7 - 15 mmol/L 04/01/2023 7:51 AM CDT LABORATORY Urea Nitrogen 12.4 8.0 - 23.0 mg/dL 04/01/2023 7:51 AM CDT LABORATORY Creatinine 0.89 0.51 - 0.95 mg/dL 04/01/2023 7:51 AM CDT LABORATORY Calcium 8.7(L) 8.8 - 10.2 mg/dL 04/01/2023 7:51 AM CDT LABORATORY Glucose 89 70 - 99 mg/dL 04/01/2023 7:51 AM CDT LABORATORY GFR Estimate 72 >60 mL/min/1.7 3m2 04/01/2023 7:51 AM CDT RH LABORATORY Blood STRUCTURE OF RIGHT UPPER LIMB / Unknown Venipuncture / Unknown 04/01/2023 7:02 AM CDT 04/01/2023 7:28 AM CDT Odalys Knight PA-C LAB - BLOOD RUSS SINGH [facility] LABORATORY [facility] Lab [address] Lab (1st floor, no room number) [place] [address], [facility] [phone] * EKG 12 lead (03/31/2023 8:17 PM CDT) Systolic Blood Pressure mmHg RADIOLOGY RESULTS Diastolic Blood Pressure mmHg RADIOLOGY RESULTS Ventricular Rate 84 BPM RAD IOLOGY RESULTS Atrial Rate 84 BPM RADIOLOG Y RESULTS HI Interval 138 ms RADIOLOG Y RESULTS QRS Duration 76 ms RADIOLO GY RESULTS QT 376 ms RADIOLOGY RESULTS QTc 444 ms RADIOLOGY RESULTS P [place] 40 degrees RADIOLOGY RESULTS R AXIS -15 degrees RADIOLOGY RESULTS T [place] 45 degrees RADIOLOGY RESULTS Interpretation ECG Sinus rhythm Minimal voltage criteria for LVH, may be normal variant Borderline ECG No previous ECGs available Confirmed by - EMERGENCY ROOM, PHYSICIAN ([id number]), science editor EMILIO CERVANTES ([id number]) on 04/01/2023 7:11:59 AM RADIOLOGY RESULTS 03/31/2023 [...] EXAM: CT ABDOMEN PELVIS W CONTRAST LOCATION: [facility] DATE: 03/31/2023 INDICATION: Abd pain, recent iliocolic [...] EXAM: CT ABDOMEN PELVIS W CONTRAST LOCATION: [facility] DATE: 03/31/2023 INDICATION: Abd pain, recent iliocolic [...] 03/31/2023 5:29 PM CDT [facility] LABORATORY Specific Kathleen Urine 1.010 1.003 - 1.035 03/31/2023 5:29 PM CDT [facility] LABORATORY Blood Urine Negative Negative 03/31/2023 5:29 PM CDT RH LABORATORY pH Urine 5.0 [...] Stark MD LAB - URINE ORD ERABLES LABORATORY [facility] [address] Lab (1st floor, no room number) [place] [id number], [facility] [phone] * Lipase (03/31/2023 4:08 PM CDT) Lipase 56 13 - 60 U/L 03/31/2023 8:31 PM CDT LABORATORY Blood BLOOD SPECIMEN / Unknown Venipuncture / Unknown 03/31/2023 4:08 PM CDT 03/31/2023 4:13 PM CDT Stan Toure MD LAB - BLOOD ORD ERABLES [facility] [address] Lab (1st floor, no room number) [place] [address], [facility] [phone] * (ABNORMAL) Comprehensive metabolic panel (03/31/2023 4:08 PM CDT) Sodium 140 136 - 145 mmol/L 03/31/2023 5:13 PM CDT LABORATORY Potassium 4.1 3.4 - 5.3 mmol/L 03/31/2023 5:13 PM CDT LABORATORY Chloride 105 98 - 107 mmol/L 03/31/2023 5:13 PM CDT LABORATORY Carbon Dioxide (CO2) 20(L) 22 - [...] Stark MD LAB - BLOOD ORD ERABLES [facility] [address] Lab (1st floor, no room number) [place] [address], [facility] [phone] * Extra Blood Bank Purple Top Tube (03/31/2023 4:08 PM CDT) Hold Specimen [facility] 03/31/2023 5:16 PM CDT [facility] LABORATORY Blood BLOOD SPECIMEN / Unknown Venipuncture / Unknown 03/31/2023 4:08 PM CDT 03/31/2023 4:13 PM CDT Stan Toure MD LAB - BLOOD ORD ERABLES [facility] Lab [address] Lab (1st floor, no room number) [place] [address], [facility] [phone] * Extra Blood Bank Purple Top Tube (03/31/2023 4:08 PM CDT) Hold Specimen [facility] 03/31/2023 5:16 PM CDT RH LABORATORY Blood BLOOD SPECIMEN / Unknown Venipuncture / Unknown 03/31/2023 4:08 PM CDT 03/31/2023 4:13 PM CDT Stan Toure MD LAB - BLOOD ORD ERABONNIE [facility] [address] Lab (1st floor, no room number) [place] [address], [facility] [phone] * Extra Red Top Tube (03/31/2023 4:08 PM CDT) Hold Specimen [facility] 03/31/2023 5:16 PM CDT RH LABORATORY Blood BLOOD SPECIMEN / Unknown Venipuncture / Unknown 03/31/2023 4:08 PM CDT 03/31/2023 4:13 PM CDT Stan Toure MD LAB - BLOOD ORD ERABLES [facility] Lab [address] Lab (1st floor, no room number) [place] [address], [facility] [phone] * Extra Blue Top Tube (03/31/2023 4:08 PM CDT) Hold Specimen [facility] 03/31/2023 5:16 PM CDT [facility] LABORATORY Blood BLOOD SPECIMEN / Unknown Venipuncture / Unknown 03/31/2023 4:08 PM CDT 03/31/2023 4:13 PM CDT Stan Toure MD LAB - BLOOD ORD [facility] [address] Lab (1st floor, no room number) [place] [address], [facility] [phone] * (ABNORMAL) CBC with platelets and differential (03/31/2023 4:08 PM CDT) WBC Count 10.6 4.0 - 11.0 10e3/uL [...] Toure MD LAB - BLOOD ORD ERABLES RH LABORATORY [facility] Lab [address] Lab (1st floor, no room number) [place] [address], [facility] [phone] * (ABNORMAL) Basic metabolic panel (BMP) (03/31/2023 [...] Toure MD LAB - BLOOD ORD ERABLES [facility] Lab [address] Lab (1st floor, no room number) [place] [address], [facility] [phone] documented in this encounter Visit Diagnoses Diagnosis [...] Tyler Roberson RN)1437 ($Given - Provider: Kaylie Noonan, IFRAH)2119 ($Given - Provider: Kelsey Peralta, IFRAH) 0614 ($Given - Provider: Leesa Vernon RN)1400 (Canceled Entry - Provider: Orders Generic Provider - Comment: Automatically canceled at discontinue of medication order) enoxaparin ANTICOAGULANT (LOVENOX) injection 40 mg 40 mg, Subcutaneous, EVERY 24 HOURS, First dose on Fri04/01/23 at 0800 0913 ($Given - Provider: Kaylie Noonan, IFRAH) 0818 ($Given - Provider: Martir Armas RN) famotidine (PEPCID) tablet 40 mg 40 mg, Oral, AT BEDTIME, First dose on Fri03/31/23 at 2300 2316 ($Given - Provider: Tyler Roberson RN) 2120 ($Given - Provider: Kelsey Peralta RN) iopamidol (ISOVUE-370) solution 120 mL (COMPLETED) 120 mL, Intravenous, ONCE, On Fri03/31/23 at 1720, For 1 dose 1716 ($Given - Provider: EPIFANIO OrtegaT) metroNIDAZOLE (FLAGYL) tablet 500 mg Routine, 500 mg, Oral, 2 TIMES DAILY, First dose on Fri04/01/23 at 0930, Changed to Metronidazole 500mg BID per Automatic Dose Adjustment Policy., Indications: Possible post-op infection 1029 ($Given - Provider: Kaylie Noonan RN)1929 ($Given - Provider: Kelsey Peralta, IFRAH) 0818 ($Given - Provider: Martir Armas RN) montelukast (SINGULAIR) tablet 10 mg 10 mg, Oral, AT BEDTIME, First dose on Fri03/31/23 at 2300 2302 ($Given - Provider: Tyler Roberson RN) 211 ($Given - Provider: Kelsey Peralta, IFRAH) nortriptyline (PAMELOR) capsule 25 mg 25 mg, Oral, AT BEDTIME, First dose on Fri03/31/23 at 2300 2302 ($Given - Provider: Tyler Roberson RN) 2118 ($Given - Provider: Kelsye Peralta, IFRAH) pantoprazole (PROTONIX) EC tablet 40 mg 40 mg, Oral, 2 TIMES DAILY BEFORE MEALS, First dose on Fri04/01/23 at 0930, This therapy was substituted for esomeprazole (NEXIUM) 20 mg every morning before breakfast. 912 ($Given - Provider: Kaylie Noonan RN)1622 ($Given - Provider: Kelsey Peralta, IFRAH) 0614 ($Given - Provider: Leesa Vernon RN) pantoprazole (PROTONIX) IV push injection 40 mg (COMPLETED) 40 mg, Intravenous, ONCE, On Fri03/31/23 at 2009, For 1 dose, Irritant. 2032 ($Given - Provider: Natasha Frazier, IFRAH) predniSONE (DELTASONE) tablet 10 mg (COMPLETED) 10 mg, Oral, DAILY, First dose on Fri04/01/23 at 0930, For 1 dose 1029 ($Given - Provider: Kaylie Noonan, IFRAH) predniSONE (DELTASONE) tablet 5 mg 5 mg, [...] one.) 0629 (Not Given - Provider: Leesa Vernon RN - Reason: Loss of IV access)1500 (Canceled Entry - Provider: Orders Generic Provider - Comment: Automatically canceled at discontinue of medication order) traZODone (DESYREL) tablet 200 mg 200 mg, Oral, AT BEDTIME, First dose on Fri03/31/23 at 2300 2302 ($Given - Provider: Tyler Roberson RN) 2119 ($Given - Provider: Kelsey Peralta, IFRAH) Continuous Medication Order 03/31/2023 04/01/2023 04/02/2023 lactated ringers infusion () at 100 mL/hr, Intravenous, CONTINUOUS, Starting on Fri03/31/23 at 2300, Until Fri04/01/23 at 0859 2307 ($New Bag - Provider: Tyler Roberson RN) lactated ringers infusion (CANCELED) at 100 mL/hr, Intravenous, CONTINUOUS, Saline lock when tolerating PO, Starting on Fri04/01/23 at 1030, Until Fri04/01/23 at 1033 1029 ($New Bag - Provider: Kaylie Noonan, IFRAH) lactated ringers infusion () at 100 mL/hr, Intravenous, CONTINUOUS, Saline lock when tolerating PO, Starting on Fri04/01/23 at 1100, Until Fri04/01/23 at 1559 1037 ($New Bag - Provider: Kaylie Noonan, IFRAH) PRN Medication Order 03/31/2023 04/01/2023 04/02/2023 HYDROmorphone [...] not required. 2316 ($Given - Provider: Tyler Roberson, IFRAH) ondansetron (ZOFRAN) injection 4 mg(Linked Group [...] documented as of this encounter Care Teams Artificial Teeth Inspector Relationship Specialty Start Date End Date No Ref-Primary, Physician PCP - General 02/10/23 05/14/23 documented as of this encounter
--- OUTSIDE RECORDS SUMMARY | 2023-10-20 07:46 | XMS_ITS | Encounter Summary ---
Author Name Unknown Organization [facility] Address [address] [place] [address]. [place] [address] Care Team Providers Care Stretching Machine Tender Frame Name Role Phone No Ref-Primary, Physician Primary Care Provider Georges Car Bermudez DO Unavailable [phone] Reason for Visit * Auth/Cert (Routine) Specialty Diagnoses / Procedures Referred By Contjn t Referred To Contact EMERGENCY MEDICINE Diagnoses Intractable abdominal pain Crohn's disease of colon with complication (H) Intractable abdominal pain Emergency Dept [address] [place] [address] Referral ID Status Reason Start Date Expiration Date Visits Re quested Visits Authorized [id number] 1 1 Encounter Details Date Type Department Care Team (Late st Contact Info) Description 03/21/2023 3:18 PM CDT Anesthesia Event [facility] PeriOp Services [address] [place] [address] Eldon Story MD [facility] ANESTHESIA [id number] [place] [address] Len Lopez APRN [facility] ANESTHESIA [place] [address] [facility] [place] [id number] Anesthesia Record Procedure Summary Procedure Name Responsible [...] are pre- induction. Jesus Alberto Juarez APRN [employer] 1527 MD Present 1527 An Induction 1529 MD Present 1530 An Intubation 1531 MD Present 1535 MD Present 1535 MD Present 1535 MD Present 1541 Anesthesia Ready for Procedu re 1543 Present 1543 MD Present 1630 MD Present 1707 MD Present 1740 MD Present 1753 MD Present 1807 MD Present 1822 AN Extubation All extubation criteria met prior to removal. 1821 an stop data 1829 An Stop Electronically signed by Kaylie Stuart APRN [employer] on March 21, 2023 6:29 PM Meds [...] Drains, and Airways Type Details Placement Removal Peripheral IV 03/19/23; 1899; 20 G ; BD; Right; Antecubital fossa 03/19/231899 by Karuna Matta RN 03/23/231899 by Liberty Louis RN ETT Placement Date: 03/21/23; Placement Time: 1530 (created via procedure documentation); Mask Ventilation: 1; Induction Type: Intravenous; Ease of Intubation: Easy; Technique: Direct laryngoscopy; ETT Type: Single; Tube Size: 7 mm; DL Blade Size: MAC 3; Grade View: 1; Adjucts: Stylet; Placement Person: [employer] ENGINEER; Attempts: 1; Depth: 21 cm 03/21/23 1530 by Jesus Alberto Juarez APRN [employer] 03/21/23 1822 by Kaylie Francisco APRN [employer] Urethral Catheter 03/21/23; 1540; No; /GI/SPUD SORTER Pelvic Procedure; 16 fr; POD 1 03/21/23 1540 by Tiarra Ferro RN 03/22/23 1230 by Subha Ball RN Incision/Surgical Site 03/21/23; 1809; Abdomen; glue x3 incisions (1 mini lap, 2 port sites); 09/22/23; 211103/21/23 180 by Tiarra Ferro RN 09/22/232111 by Irma Bro RN documented in this encounter Social History [...] 23 03/21/23 1829 SpO2 99 % 03/21/23 182 Vitals shown include unvalidated device data. Electronically Signed By: Jana Gil MD March 21, 2023 6:31 PM * Anesthesia Procedure Notes - Jesus Alberto Juarez APRN CRNA - 03/21/2023 3:56 PM CDTAssociated Order(s): Airway Airway Procedure Start/Stop Times: 03/21/2023 3:30 PM Staff - [employer]ER: Jesus Alberto Juarez APRN CRNA Performed By: [...] and realistic alternatives discussed. Questions answered and patient/sales representative sales manager(s) expressed understanding. - Discussed: Risks, Benefits and [...] CRNA - 03/21/2023 6:28 PM CDT Patient: Hortensia Buitrago Procedure: Procedure(s): Laparoscopic ileocolic resection Diagnosis: [...] PM CDT) Narrative Jesus Alberto Juarez APRN [employer] - 03/21/2023 3:30 PM CDT Jesus Alberto Juarez APRN [employer]ER ? 03/21/2023 ??3:56 PM Airway ? Procedure Start/Stop Times: 03/21/2023 3:30 PM Staff - ? [employer] ENG[employer]ER: Jesus Alberto Juarez APRN CRNA ? Performed [...] Time: 03/21/2023 3:30 PM Stan Lazcano MD ID ANESTHES [place] documented in this encounter Visit [...] mg documented in this encounter Care Teams Stretching Machine Tender Frame Relationship Specialty Start Date End Date No Ref-Primary, Physician PCP - General 02/10/23 05/14/23 Car Su DO [address] [place] [address] Assigned Pain Medication Provider 02/22/23 03/21/23 documented as of this encounter
--- OUTSIDE RECORDS SUMMARY | 2023-10-20 07:47 | XMS_ITS | Encounter Summary ---
Author Name Unknown Organization [facility] Address [address] [place] [id number] Care Team Providers Care Mill Set Up Name Role Phone No Ref-Primary, Physician Primary Care Provider Car Su DO Unavailable [phone] Encounter Details Date Type Department Care Team [...] on filedocumented in this encounter Care Teams Mill Set Up Relationship Specialty Start Date End Date No Ref-Primary, Physician PCP - General 02/10/23 05/14/23 Car Su DO [address] [place] [address] Assigned Pain Medication Provider 02/22/23 03/21/23 documented as of this encounter
--- OUTSIDE RECORDS SUMMARY | 2023-10-20 07:47 | XMS_ITS | Encounter Summary ---
Author Name Unknown Organization [facility] Address [address] [place] [address] Care Team Providers Care Surveying Technician Name Role Phone No Ref-Primary, Physician Primary Care Provider Georges Car Bermudez DO Unavailable [phone] Reason for Visit * Reason Comments Abdominal Pain * Auth/Cert (Routine) Specialty Diagnoses / Procedures Referred By Esa t Referred To Contact EMERGENCY MEDICINE Diagnoses Intractable abdominal pain Crohn's disease of colon with complication (H) Intractable abdominal pain Emergency Dept [address] [place] [address] Referral ID Status Reason Start Date Expiration Date Visits Re quested Visits Authorized [id number] 1 1 Encounter Details Date Type Department Care Team (Late st Contact Info) Description 03/21/2023 3:15 PM CDT - 03/21/2023 7:50 PM CDT Surgery [facility] PeriOp Services [address] [place] [phone] Madison Iverson MD COLON RECTAL SURGERY [address] [id number] Laparoscopic assisted ileocolic resection Surgery Details Date/Time Status Location OR Service Patient Class Case Class Case Type Trauma Case? 03/21/23 3:15 PM Posted RH OR OR 03 Lane-Rectal Inpatient Panel 1 Procedure LRB Anes Op Region Wound Class Comments Laparoscopic assisted ileoco lic resection N/A General Abdomen II-Clean Contaminated Surgeon Surgeon Role Service Panel Roberta Ramirez PA-C Assisting Supervisor Molding Authori radha 1 Madison Iverson MD Primary Lane-Rectal 1 Special Needs Multiple allergies documented in [...] - 03/26/2023 10:04 AM CDT [facility] Hospitalist Discharge Summary Date of [...] Dr. Madison Iverson ,Colon & Rectal Surgery [id number] [place] [address], [address] [place] [address] within 2 - 4 weeks or hospital [...] blood loss anemia - Colorectal surgery following. Crane to be secondary to an anastomotic bleed. [...] of Remicade. Keep follow up appointment at [facility] in April[place] scheduled, colonoscopy in 5-6 [...] minutes discharging this patient. Homar Colón MD [place] [address] MEDICAL SURGICAL [address] [facility] [address] Physical Exam Vital Signs: Temp: 97.7 ??F [...] Dr. Madison Iverson ,Colon & Rectal Surgery [id number] [place] [address], [address] [place] [address] within 2 - 4 weeks or hospital [...] EXAM: CT ABDOMEN PELVIS W CONTRAST LOCATION: [facility] DATE: 03/19/2023 INDICATION: Abdominal pain. Crohn's [...] Everywhere. * (S) EATING A LOW-FIBER DIET (POLISH) * Diet, Low-Fiber (Martiniquais) documented in this encounter Medications at Time [...] questions/paging, please contact the CRS office at [phone]. Roberta Ramirez PA-C Colon & Rectal Surgery [...] Iverson MD [facility] [address], [address] [place] [address] T: [phone] F: [phone] [email or web address] ADDENDUM: Length of stay: 5 days Indicate Y or N for the following: UTI No C diff No PNA No SSI No DVT No PE No CVA No KS No Enterocutaneous fistula No Peripheral nerve injury No Abscess (not adjacent to anastomosis) No Leak No Treated with: Antibiotics N/A Drain N/A Reoperation N/A within 30 days No Reintubation No Reoperation No Procedure N/A * Madison vIerson MD - 03/25/2023 12:18 PM CDT Images [...] questions/paging, please contact the CRS office at [phone]. Roberta Ramirez PA-C [facility] Colon and Rectal Surgery Attending Note Patient seen and examined independently. Agree with above assessment and plan. Frequent loose stools this after noon. No further blood abd soft, incision cdi Plan Oral steroids LFD Likely discharge home tomorrow. Madison Iverson MD [facility] [address] [address], [address] [place] [address] T: [phone] F: [phone] [email or web address] * Homar Colón MD - 03/25/2023 10:[address] [facility] Medicine Progress Note - Hospitalist Service [...] blood loss anemia - Colorectal surgery following. Crane to be secondary to an anastomotic bleed. [...] of Remicade. Keep follow up appointment at [facility] in scheduled, colonoscopy in 5-6 months. [...] Destination: home Homar Colón MD Hospitalist Service 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 Crane to be secondary to an anastomotic bleed. [...] of Remicade. Keep follow up appointment at [facility] in scheduled, colonoscopy in 5-6 months. - Avoid NSAIDS. Lactic Acidosis - Present on admission. Suspect 2/2 hypovolemia. Resolved. RCC s/p nephrectomy w/ CKD Stage III - Cr at baseline - Avoid nephrotoxins DVT Prophylaxis: Enoxaparin (Lovenox) subcutaneous is now held with bleeding. SCDs are ordered. Code Status: Full Code Expected discharge: Pending post-operative course. Ella Suarez MD FACP Hospitalist Service [facility] Securely message with Blurb (more info) Text page via [facility] Paging/Directory Subjective Patient with one episode of [...] Hortensia, per admission request. She had company ([employer]) and requested that I come visit later, but requested prayer for healing and pain relief. We shared prayer together. Plan: I and other chaplains remain available for further support. Sam Lal Rn Cardiovascular Speech Therapy Teacher [facility] routine referrals *[id number] [facility] available 31/03 for emergent requests/referrals, either by paging the on-call negative restorer or by entering an BUSTER/STAT consult in [facility] (this will also page the on-call negative restorer). * Madison Iverson MD - 03/24/2023 10:53 [...] questions/paging, please contact the CRS office at [phone]. Roberta Ramirez PA-C Colon & Rectal Surgery [...] Iverson MD [facility] [address], [address] [place] [address] T: [phone] F: [phone] [email or web address] * Subha Ball RN - 03/23/2023 [...] Suarez MD - 03/23/2023 5:[address] [facility] Hospitalist Progress Note Assessment & [...] of Remicade. Keep follow up appointment at [facility] in [place] scheduled, colonoscopy in 5-6 months. - Avoid NSAIDS Acute blood loss anemia - Colorectal surgery following. Crane to be secondary to an anastomotic bleed. [...] surgery. Ella Suarez MD FACP Hospitalist Service [facility] Securely message with Blurb (more info) Text page via [facility] Paging/Directory Subjective Patient with blood reported from [...] Surgery Fellow [facility] [address] [place] [address] T: [phone] F: [phone] * Ritesh Leach, PT - 03/23/2023 10:26 [...] Transfers Transfers no deficits identified Gait/Stairs (Locomotion) Blackford Level (Gait) independent Distance in Feet 35 [...] Evaluation Time PT Eval, Low Complexity Minutes (38948) 24 PT Discharge Planning PT Plan Evaluation [...] Suarez MD - 03/22/2023 1:[address] [facility] Hospitalist Progress Note Assessment & [...] of Remicade. Keep follow up appointment at [facility] in [place] scheduled, colonoscopy in 5-6 months. - Avoid NSAIDS Lactic Acidosis - Suspect 2/2 hypovolemia. Resolved. RCC s/p nephrectomy w/ CKD Stage III - Cr at baseline - Avoid nephrotoxins DVT Prophylaxis: Enoxaparin (Lovenox) SQ Code Status: Full Code Expected discharge: Inpatient for another 2-3 more days depending on clinical progression after surgery. Ella Suarez MD [facility] Hospitalist Service [facility] Securely message with Blurb (more info) Text page via [facility] Paging/Directory Subjective Patient seen. Family at bedside. [...] Colorectal Surgery [facility] [address] [place] [address] T: [phone] F: [phone] * Subha Ball RN - 03/21/2023 6:47 PM CDT End of Shift Summary For vital signs and complete assessments, please see documentation flowsheets. Pertinent assessments: Pt A/Ox4. VSS. IV dilaudid given for abd pain. BS hypoactive. LS clear. HS regular Major Shift Events: Surgery today Treatment Plan: pain management, bowel management Bedside Nurse: Subha Ball RN * Candy Lennon APRN EMERGENCY ROOM REGISTERED NURSE - 03/21/2023 12:32 PM CDT Images from [...] EXAM: CT ABDOMEN PELVIS W CONTRAST LOCATION: [facility] DATE: 03/19/2023 ?? INDICATION: Abdominal pain. [...] and loose stools since her discharge from [facility] about 3 weeks ago for suspected [...] dose of Remicade, follow up appointment at [facility] in April as scheduled, colonoscopy in 5-6 months -Avoid NSAIDS -No further GI recommendations at this time. We will sign off. Please call with any concerns or questions/reconsult as needed. Discussed with Dr. Saulo Lennon, [facility] Digestive Health Office: [phone] * Jassi Nolasco MD - 03/21/2023 9:[address] [facility] Hospitalist Progress Note Assessment & [...] Nolasco MD - 03/20/2023 9:[address] [facility] Hospitalist Progress Note Assessment & [...] Harris PA-C - 03/19/2023 11:[address] [facility] Admission History and Physical Examination [...] abdominal [facility]. [...] as well as colorectal surgery consult -Continue SALES REPRESENTATIVE BUSINESS COURSES oral steroids for now #Lactic acidosis -Resolved [...] abdominal pain [facility] Cro[facility]'s flare. [...] EXAM: CT ABDOMEN PELVIS W CONTRAST LOCATION: [facility] DATE: 03/19/2023 INDICATION: Abdominal pain. Crohn's [...] ALT 17 AST [address] PA-C [facility] Medicine March 19, 2023 Securely message with the [employer] Console (learn more here) Text page via [facility] Paging/Directory Associated attestation - Kai Su DO [...] Communication Assessment Patient's communication style: spoken language (Martiniquais or Bilingual) Cognitive Cognitive/Neuro/Behavioral: WDL Living Environment: [...] arise. Laine Clemens RN Inpatient Care Coordination [facility] * Odalys Valladares RN - 03/20/2023 1:16 PM CDTAssociated Order(s): WOUND OSTOMY CONTINENCE NURSE IP CONSULT [facility] WOC Nurse Ostomy Marking and Education [...] operatively Odalys Valladares RN CWOCN Contact Via [facility] Nurse ([facility]) Dept. Office Number: [phone] * Roberta Ramirez PA-C - 03/20/2023 11:52 AM CDTAssociated Order(s): COLORECTAL SURGERY IP CONSULT [facility] Colon and Rectal Surgery Consult [...] EXAM: CT ABDOMEN PELVIS W CONTRAST LOCATION: [facility] DATE: 03/19/2023 INDICATION: Abdominal pain. Crohn's [...] Hortensia Buitrago as part of a shared LOAD TESTER/PA visit. I personally reviewed the vital [...] the patient): 03/20/23 * Candy Lennon, SUN EMERGENCY ROOM REGISTERED NURSE - 03/20/2023 7:54 AM CDTAssociated Order(s): GASTROENTEROLOGY IP CONSULT Images from the original note were not included. GASTROENTEROLOGY CONSULTATION Hortensia Buitrago [address] [place] [address] 63 year old female Admission Date/Time: 03/19/2023 [...] decreased stool output since her discharge from [facility] about 3 weeks ago for Crohn's [...] EXAM: CT ABDOMEN PELVIS W CONTRAST LOCATION: [facility] DATE: 03/19/2023 ?? INDICATION: Abdominal pain. [...] decreased stool output since her discharge from [facility] about 3 weeks ago for suspected [...] Total time: 50 minutes [facility] Office: [phone] Associated attestation - Ananda Vernon MD - [...] Harmon RN - 03/19/2023 9:28 PM CDT [facility] ED Nurse Handoff Report ED Chief complaint: [...] standby. Lift room needed: No. Bariatric: No Mine Utility Operator Needed: No Isolation: No. Infection: Not Applicable. [...] Bilirubin Urine Negative Ketones Urine Negative Specific [place] Urine 1.005 Blood Urine Negative pH Urine [...] Bilirubin Urine Negative Ketones Urine Negative Specific [place] Urine 1.005 Blood Urine Negative pH Urine [...] care of Dr. Su. Impression & Plan [facility] Diagnoses: None Medical Decision Making: Patient [...] Medication Reconciliation and Education - Blaine Hinson [facility] - 03/26/2023 11:53 AM CDT Discharge medication review for this patient is complete. Rhcy-af-[id number] medication education was provided by the pharmacist. See [facility] for allergy information, immunization status, [...] written materials and instructions (Clinical notes from [facility]) for new medications: Yes OUTCOMES: Patient [...] RN * Plan of Care - Chris Mcmahna RD - 03/25/2023 1:18 AM CDT Goal [...] Progress: no change Pertinent assessments: Assumed cares [id number]. Pt A&Ox4, VSS, c/o abdominal pain, PRN [...] incision and lap sited w/ liquid bandage, STANDPIPE TENDER. Salazar patent Major Shift Events Transferred from PACU Treatment Plan: symptom management, solu-Cortef, await bowel return and diet advancement. Bedside Nurse: Edelmira Gibson RN * Brief Op Note - Issa Bruno MD - 03/21/2023 6:[address] [facility] Brief Operative Note Pre-operative diagnosis: Crohn's [...] MD [facility] [phone]. ADDENDUM: PATIENT DATA Indicate Y or N: [...] assisted ileocolic resection SURGEON: Madison Iverson MD Supervisor Molding: Roberta Ramirez PA-C and Dr. Bruno, [facility] colorectal surgery fellow ANESTHESIA: Tap block [...] was excellent. We then lined up a [id number]-[id number] functional end-to-end anastomosis. Colotomy and enterotomy were [...] want it insteadof omeprazole. Changes made to SALES REPRESENTATIVE BUSINESS COURSES medication list: ??? Added: None ??? Deleted: [...] Medication Sig Last Dose Taking? Auth Provider Streetcar Operator End Date acetaminophen (TYLENOL) 650 MG CR [...] platelets and differential (03/26/2023 6:59 AM CDT) [facility] WBC Count 7.2 4.0 - 11.0 10e3/uL [...] MD LAB - BLOOD ORDERABL ES LABORATORY [facility] Acute Care Lab [address] Lab (1st floor, no room number) [place] [address], [facility] [phone] * Extra Green Top Tube (LAB USE ONLY) (03/26/2023 6:59 AM CDT) Hold Specimen JI 03/26/2023 8:16 AM CDT LABORATORY Blood STRUCTURE OF RIGHT HAND / Unknown Venipuncture / Unknown 03/26/2023 6:59 AM CDT 03/26/2023 7:07 AM CDT Mona Villarreal MD LAB - BLOOD ORDERABL ES LABORATORY [facility] [address] Lab (1st floor, no room number) [place] [address], [facility] [phone] * (ABNORMAL) Basic metabolic panel (03/25/2023 6:38 [...] LAB - BLOOD ORDER NATALIIA RH LABORATORY [facility] [address] Lab (1st floor, no room number) [place] [address], [facility] [phone] * (ABNORMAL) CBC with platelets (03/25/2023 6:38 [...] - BLOOD ORDERA BLES Performing Organization Address City/[facility]/ZIP Co de Phone Number LABORATORY [facility] [address] Lab (1st floor, no room number) [place] [address], [facility] [phone] * (ABNORMAL) Hemoglobin (03/24/2023 9:04 PM CDT) Hemoglobin 9.2(L) 11.7 - 15.7 g/dL 03/24/2023 9:30 PM CDT RH LABORATORY Blood STRUCTURE OF LEFT UPPER LIMB / Unknown Venipuncture / Unknown 03/24/2023 9:04 PM CDT 03/24/2023 9:22 PM CDT Ella Suarez MD LAB - BLOOD ORDER NATALIIA Performing Organization Address City/[facility]/ZIP Co de Phone Number LABORATORY [facility] [address] Lab (1st floor, no room number) [place] [address], [facility] [phone] * (ABNORMAL) CBC with platelets and differential [...] MD LAB - BLOOD ORDER NATALIIA LABORATORY [facility] Lab [address] Lab (1st floor, no room number) [place] [address], [facility] [phone] * (ABNORMAL) Basic metabolic panel (03/24/2023 6:58 AM CDT) [facility] Signature Sodium 139 136 - 145 mmol/L [...] MD LAB - BLOOD ORDER NATALIIA LABORATORY [facility] [address] Lab (1st floor, no room number) [place] [address], [facility] [phone] * (ABNORMAL) Hemoglobin (03/23/2023 10:11 PM CDT) Hemoglobin 9.4(L) 11.7 - 15.7 g/dL 03/23/2023 10:25 PM CDT RH LABORATORY Blood STRUCTURE OF LEFT UPPER LIMB / Unknown Venipuncture / Unknown 03/23/2023 10:11 PM CDT 03/23/2023 10:22 PM CDT Ella Suarez MD LAB - BLOOD ORDER NATALIIA [facility] Care Lab [address] Lab (1st floor, no room number) [place] [address], [facility] [phone] * (ABNORMAL) Hemoglobin (03/23/2023 5:23 PM CDT) Hemoglobin 9.6(L) 11.7 - 15.7 g/dL 03/23/2023 5:28 PM CDT RH LABORATORY Blood STRUCTURE OF LEFT UPPER LIMB / Unknown Venipuncture / Unknown 03/23/2023 5:23 PM CDT 03/23/2023 5:25 PM CDT Madison Iverson MD LAB - BLOOD ORDERA BLES [facility] Acute Care Lab [address] Lab (1st floor, no room number) [place] [address], [facility] [phone] * Transfuse red blood cells (unit) (03/23/2023 4:18 PM CDT) Issa Bruno MD BLOOD TRANSFUSION OR DERABLES * Transfuse red blood cells (unit), 1 Units (03/23/2023 4:18 PM CDT) Issa Bruno MD BLOOD TRANSFUSION OR DERABLES * Prepare red blood cells (unit) (03/23/2023 11:32 AM CDT) Blood Component Type Red Blood Cells RH BLOOD BANK Product Code [id number] RH BLOO D BANK Unit Status Transfused RH BLOO D BANK Unit Number [id number] RH B LOOD BANK CROSSMATCH Compatible RH BLOOD BANK CODING SYSTEM [id number] RH BLO OD BANK ISSUE DATE AND TIME [id number] RH BLOOD BANK UNIT ABO/RH A+ RH BLOOD BANK UNIT TYPE ISBT 6200 RH BL OOD BANK 03/23/2023 11:3 2 AM CDT Issa Bruno MD BLOOD BANK PRODUCT O RDERABLES RH BLOOD BANK [address] [place] [address], [facility] * (ABNORMAL) CBC with platelets [...] LAB - BLOOD ORDER NATALIIA RH LABORATORY [facility] Lab [address] Lab (1st floor, no room number) [place] [address], [facility] [phone] * (ABNORMAL) Basic metabolic panel (03/23/2023 6:07 [...] MD LAB - BLOOD ORDER NATALIIA LABORATORY [facility] Lab [address] Lab (1st floor, no room number) [place] [address], [facility] [phone] * (ABNORMAL) Hemoglobin (03/22/2023 4:11 PM CDT) [facility] Hemoglobin 8.8(L) 11.7 - 15.7 g/dL 03/22/2023 4:18 PM CDT LABORATORY Blood STRUCTURE OF LEFT UPPER LIMB / Unknown Venipuncture / Unknown 03/22/2023 4:11 PM CDT 03/22/2023 4:15 PM CDT Issa Bruno MD LAB - BLOOD ORDERABL ES LABORATORY [facility] Lab [address] Lab (1st floor, no room number) [place] [address], [facility] [phone] * (ABNORMAL) CBC with platelets (03/22/2023 6:38 [...] MD LAB - BLOO D ORDERABLES LABORATORY [facility] [address] Lab (1st floor, no room number) [place] [address], [place] [phone] * (ABNORMAL) Basic metabolic panel (03/22/2023 6:38 [...] MD LAB - BLOO D ORDERABLES LABORATORY [facility] [address] Lab (1st floor, no room number) [place] [address], [facility] [phone] * (ABNORMAL) Creatinine (03/21/2023 9:28 PM CDT) Creatinine 0.99(H) 0.51 - 0.95 mg/dL 03/21/2023 9:52 PM CDT LABORATORY GFR Estimate 63 >60 mL/min/1.7 3m2 03/21/2023 9:52 PM CDT LABORATORY Blood STRUCTURE OF LEFT UPPER LIMB / Unknown Venipuncture / Unknown 03/21/2023 9:28 PM CDT 03/21/2023 9:34 PM CDT Madison Iverson MD LAB [facility] LABORATORY [facility] [address] [facility] Lab (1st floor, no room number) [place] [address], [facility] [phone] * Surgical Pathology Exam (03/21/2023 5:39 PM CDT) Case Report Surgical Pathology Report ? Case: [id number] ? Authorizing Provider: ??Madison Iverson MD ?Collected: ? 03/21/2023 05:39 PM ? Ordering Location: ? [facility] ?? Received: ?03/21/2023 06:19 PM ? [...] Sectioning reveals no discrete lesions or masses. Knuckle Bender sections are submitted. Summary of sections: A1-en face proximal margin, split sections A2-en face distal margin, split sections A9-K5-qiwubqmastjmvk terminal ileum mucosa sequentially submitted from proximal to distal every 10 cm A6-ileocecal valve A7-cecal mucosa (BRETT Green ASCP CM) 03/27/2023 3:28 PM CDT LABORATORY Microscopic Description Microscopic examination was performed. Case was reviewed intradepartmentally 03/27/2023 3:28 PM T LABORATORY Performing Labs The technical component of this testing was completed at [facility] Laboratory 03/27/2023 3:28 PM CDT RH LABORATORY Case Images 03/27/2023 3:28 PM CDT RH LABORATORY Resection STRUCTURE OF DISTAL PORTION OF ILEUM / Unknown 03/21/2023 5:39 PM CDT 03/21/2023 6:19 PM CDT Madison Iverson MD LAB - GERBER AP LABORATORY [facility] [address] Lab (1st floor, no room number) [place] [address], [place] [phone] * (ABNORMAL) Glucose by meter (03/21/2023 1:38 PM CDT) GLUCOSE BY METER POCT 107(H) 70 - 99 mg/dL 03/21/2023 1:45 PM CDT RH LABORATORY POC Blood, Capillary BLOOD SPECIMEN / Unknown 03/21/2023 1:38 PM CDT 03/21/2023 1:45 PM CDT Mona CAZARES - GERBER POCT LABORATORY [facility] Acute Care Lab [address] Lab (1st floor, no room number) [place] [address], [place] [phone] * Adult Type and Screen (03/20/2023 12:12 PM CDT) ABO/RH(D) A POS 03/20/2023 12:03 PM CDT RH BLOOD BANK Antibody Screen Negative Negative 03/20/2023 12:03 PM CDT RH BLOOD BANK SPECIMEN EXPIRATION DATE [id number] 03/20/2023 12:03 PM CDT RH BLOOD BANK Blood STRUCTURE OF LEFT UPPER LIMB / Unknown Venipuncture / Unknown 03/20/2023 12:12 PM CDT 03/20/2023 12:16 PM CDT Roberta Ramirez PA-C LAB - BLOOD BANK T EST ORDER [place] [address], [facility] * Prealbumin (03/20/2023 12:12 PM CDT) Prealbumin 39 15 - 45 mg/dL 03/21/2023 12:15 PM CDT [facility] CORE/PROT/ENDO Blood STRUCTURE OF LEFT UPPER LIMB / Unknown Venipuncture / Unknown 03/20/2023 12:12 PM CDT 03/20/2023 12:16 PM CDT Roberta Ramirez PA-C LAB - BLOOD ORDERA BLES [facility]/PROT/ENDO Specialty Core/Prot/Endo [address] [facility], [address] [phone] * (ABNORMAL) CBC with platelets (03/20/2023 8:06 [...] PA-C LAB - BLOOD ORDER NATALIIA LABORATORY [facility] Acute Care Lab [address] Lab (1st floor, no room number) [place] [address], [facility] [phone] * (ABNORMAL) Basic metabolic panel (03/20/2023 8:06 [...] Harris PA-C LAB - BLOOD ORDER NATALIIA [facility] Acute Care Lab [address] Lab (1st floor, no room number) [place] [address], [facility] [phone] * Lactic acid whole blood (03/19/2023 9:30 PM CDT) Lactic Acid 1.0 0.7 - 2.0 mmol/L 03/19/2023 9:38 PM CDT LABORATORY Blood BLOOD SPECIMEN / Unknown Venipuncture / Unknown 03/19/2023 9:30 PM CDT 03/19/2023 9:36 PM CDT Mona Villarreal MD LAB - BLOOD ORDERABL ES Performing Organization Address [facility]/ZIP Co de Phone Number [facility] [address] (1st floor, no room number) [place] [address], [facility] [phone] * CT Abdomen Pelvis w Contrast (03/19/2023 [...] EXAM: CT ABDOMEN PELVIS W CONTRAST LOCATION: [facility] DATE: 03/19/2023 INDICATION: Abdominal pain. Crohn's [...] EXAM: CT ABDOMEN PELVIS W CONTRAST LOCATION: [facility] DATE: 03/19/2023 INDICATION: Abdominal pain. Crohn's [...] MD LAB - BLOOD ORDERABL ES LABORATORY [facility] [address] Lab (1st floor, no room number) [place] [address], [facility] [phone] * (ABNORMAL) UA with Microscopic reflex to Culture (03/19/2023 6:16 PM CDT) Color Urine Straw Colorless, Straw, Light Yellow, Yellow 03/19/2023 6:30 PM CDT LABORATORY Appearance Urine Clear Clear 03/19/20 6:30 PM CDT LABORATORY Glucose Urine Negative Negative mg/dL 03/19/2023 6:30 PM CDT LABORATORY Bilirubin Urine Negative Negative 6:30 PM CDT LABORATORY Ketones Urine Negative Negative mg/dL 03/19/2023 6:30 PM CDT LABORATORY Specific [place] Urine 1.005 1.003 - 1.035 03/19/2023 6:30 [...] LAB - URINE ORDERABL ES RH LABORATORY [facility] [address] (1st floor, no room number) [place] [address], [facility] [phone] * Hepatic function panel (03/19/2023 3:30 PM [...] Villarreal MD LAB - BLOOD ORDERABL ES [facility] [address] Lab (1st floor, no room number) [place] [address], [facility] [phone] * Extra Red Top Tube (03/19/2023 3:30 PM CDT) Hold Specimen [facility] 03/19/2023 4:47 PM CDT RH LABORATORY Blood STRUCTURE OF RIGHT UPPER LIMB / Unknown Venipuncture / Unknown 03/19/2023 3:30 PM CDT 03/19/2023 3:34 PM CDT Mona Villarreal MD LAB - BLOOD ORDERABL ES [facility] [address] Lab (1st floor, no room number) [place] [address], [facility] [phone] * Extra Blue Top Tube (03/19/2023 3:30 PM CDT) Hold Specimen [facility] 03/19/2023 4:47 PM CDT RH LABORATORY Blood STRUCTURE OF RIGHT UPPER LIMB / Unknown Venipuncture / Unknown 03/19/2023 3:30 PM CDT 03/19/2023 3:34 PM CDT Mona Villarreal MD LAB - BLOOD ORDERABL ES [facility] [address] Lab (1st floor, no room number) [place] [address], [place] [phone] * (ABNORMAL) Basic metabolic panel (BMP) (03/19/2023 [...] MD LAB - BLOOD ORDERABL ES LABORATORY [facility] [address] Lab (1st floor, no room number) [place] [address], [facility] [phone] * (ABNORMAL) CBC (platelets, no diff) (03/19/2023 [...] MD LAB - BLOOD ORDERABL ES LABORATORY [facility] [address] Lab (1st floor, no room number) [place] [address], [facility] [phone] documented in this encounter Visit Diagnoses Diagnosis [...] analgesic side effects. Hold while on IV SUPPORT TEACHER or with regular IV opioid dosing. $Given 03/25/2023 9:39 PM CDT 2 mg $Given 03/25/2023 2:11 PM CDT 2 mg $Given 03/24/2023 7:53 PM CDT 2 mg HYDROmorphone (DILAUDID) tablet 4 mg 4 mg, Oral, EVERY 4 HOURS PRN, severe pain, Starting on Fri03/21/23 at 7, Hold oral PRN dose for analgesic side effects. Notify provider to assess for uncontrolled pain or analgesic side effects. Hold while on IV SUPPORT TEACHER or with regular IV opioid dosing. $Given [...] PRN, nausea, vomiting, Starting on Fri03/21/23 at 2046, This is Step 1 of nausea and [...] 4 grams/day. 0539 ($Given - Provider: Carmella Conway, RN)1401 ($Given - Provider: Mayela Fung, IFRAH) enoxaparin ANTICOAGULANT (LOVENOX) injection 40 mg 40 [...] 03/20/23 at 1100 0908 ($Given - Provider: Maeyla Fung, IFRAH)1656 ($Given - Provider: Liberty Louis RN) 0815 ($Given - Provider: Mayela Fung RN)1720 ($Given - Provider: Candy Michel RN) 0619 ($Given - Provider: Stephanie Chawla, IFRAH)0649 (Canceled Entry - Provider: Stephanie Chawla, IFRAH) hydrocortisone sodium succinate PF (solu-CORTEF) injection 25 [...] Provider: Mayela Fung RN - Reason: IV Infusing)203 (Not Given - Provider: Liberty Louis RN [...] sore throat, Starting on 03/22/23 at 1440 HYDROmorphone (DILAUDID) injection 0.2 mg(Linked [...] analgesic side effects. Hold while on IV SUPPORT TEACHER or with regular IV opioid dosing. 0154 ($Given - Provider: Carmella Conway RN)0959 ($Given - Provider: Mayela Fung RN)1952 ($Given - Provider: Liberty Louis RN) 1410 ($Given - Provider: Mayela Fung RN)2138 ($Given - Provider: Candy Michel RN) 015 (See Alternative - Provider: Stephanie Chawla RN)0619 (See Alternative - Provider: Stephanie Chawla RN) HYDROmorphone (DILAUDID) tablet 4 mg(Linked Group 3) 4 mg, Oral, EVERY 4 HOURS PRN, severe pain, Starting on Fri03/21/23 at 2046, Hold oral PRN dose for analgesic side effects. Notify provider to assess for uncontrolled pain or analgesic side effects. Hold while on IV SUPPORT TEACHER or with regular IV opioid dosing. 0154 [...] 2 MIN PRN, opioid reversal, Starting on [facility] 03/20/23 at 1023, Administer intramuscular if [...] 2 MIN PRN, opioid reversal, Starting on [facility] 03/20/23 at 1023, Administer intravenous route [...] PRN, nausea, vomiting, Starting on Fri03/21/23 at 2046, This is Step 1 of nausea and [...] PRN, severe pain, Starting on Fri03/21/23 at 7, IF patient unable to take oral pain [...] analgesic side effects. Hold while on IV SUPPORT TEACHER or with regular IV opioid dosing. Or HYDROmorphone (DILAUDID) tablet 4 mgJump to med 4 mg, Oral, EVERY 4 HOURS PRN, severe pain, Starting on Fri03/21/23 at 2046, Hold oral PRN dose for analgesic side effects. Notify provider to assess for uncontrolled pain or analgesic side effects. Hold while on IV SUPPORT TEACHER or with regular IV opioid dosing. Group [...] PRN, nausea, vomiting, Starting on Fri03/21/23 at 2046, This is Step 1 of nausea and [...] (ZOFRAN). documented in this encounter Care Teams Surveying Technician Relationship Specialty Start Date End Date No Ref-Primary, Physician PCP - General 02/10/23 05/14/23 Car Su DO [address] [place] [address] Assigned Pain Medication Provider 02/22/23 03/21/23 documented as of this encounter
--- OUTSIDE RECORDS SUMMARY | 2023-10-20 07:48 | XMS_ITS | Clinical Summary ---
Author Name Unknown Organization [facility] Address [place], [place] [address] Care Team Providers Care Credit Assistant Name Role Phone Adithya Patten MD Primary [...] 10:06 AM 05/24/2009 2:39 AM Care Teams Credit Assistant Relationship Specialty Start Date End Date Adithya Patten MD PCP - General 05/21/09
--- OUTSIDE RECORDS SUMMARY | 2023-10-20 07:48 | XMS_ITS | Encounter Summary ---
Author Name Unknown Organization [facility] Address [address] [place] [id number] Care Team Providers Care Waste Management Engineer Name Role Phone No Ref-Primary, Physician Primary [...] on filedocumented in this encounter Care Teams Waste Management Engineer Relationship Specialty Start Date End Date No Ref-Primary, Physician PCP - General 02/10/23 05/14/23 documented as of this encounter
--- OUTSIDE RECORDS SUMMARY | 2023-10-20 07:48 | XMS_ITS | Encounter Summary ---
Author Name Unknown Organization [facility] Address [address] [place] [address] Care Team Providers Care Maintenance Supervisor Electrical Name Role Phone No Ref-Primary, Physician Primary Care Provider Car Su DO Unavailable [phone] Reason for Visit * Reason Comments Abdominal Pain * Auth/Cert (Routine) Specialty Diagnoses / Procedures Referred By Esa carvajal Referred To Contact Pediatrics Diagnoses RLQ abdominal pain Partial small bowel obstruction (H) RLQ abdominal pain Pediatrics [address] [place] [address] Referral ID Status Reason Start Date Expiration Date Visits Re quested Visits Authorized [id number] 1 1 Encounter Details Date Type Department Care Team (Late st Contact Info) Description 02/10/2023 9:11 PM CDT - 02/23/2023 12:45 PM CDT Hospital Encounter [facility] [address] [place] [address] Philipp Schneider DO [facility] [address] [place] [address] [place] [id number] Lukasz Weaver MD HOSPITALIST [address] [place], [place] [address] IBD (inflammatory bowel disease) (Primary Dx); RLQ [...] on interview. Of note, colonoscopy completed through [facility] evidently showed a distal ileal stricture [...] ?? Moderate Protein-Calorie Malnutrition ?? GERD - LIBRARY PARAPROFESSIONAL pantoprazole ?? MDD - LIBRARY PARAPROFESSIONAL nortriptyline ?? Insomnia - LIBRARY PARAPROFESSIONAL trazodone Consultations This Hospital Stay GASTROENTEROLOGY IP CONSULT SPIRITUAL HEALTH SERVICES IP CONSULT GASTROENTEROLOGY IP CONSULT COLORECTAL SURGERY IP CONSULT NUTRITION SERVICES ADULT IP CONSULT SPIRITUAL HEALTH SERVICES IP CONSULT Code Status Full Code Time Spent on this Encounter I, Eva Hammond DO, personally saw the patient today and spent greater than 30 minutes discharging this patient. Eva Hammond DO [facility] [address] [facility] [address] Physical Exam Vital Signs: Temp: 97.9 ??F [...] EXAM: CT ABDOMEN PELVIS W CONTRAST LOCATION: [facility] DATE/TIME: 02/10/2023 10:57 PM CDT INDICATION: [...] DVT in the right lower extremity. MAIKEL SHORT MD XR Abdomen 2 Views Narrative ABDOMEN [...] Multiple pelvic phleboliths. Bones are unchanged. MAIKEL GRIFFITH MD SYSTEM ID: [id number] CT Abdomen Pelvis w Contrast Narrative CT [...] No evidence for associated bowel obstruction. JOAQUÍN CAAL MD Discharge Medications Current Discharge Medication List [...] reviewed this educational content on 06/08/2022 ?? [id number] [employer]. All rights reserved. This information is not intended as a substitute for professional medical care. Always follow your healthcare professional's instructions. * Attachments The following attachments cannot be sent through Care Everywhere. * (S) EATING A LOW-FIBER DIET (MACANESE) * Diet, Low-Fiber (Hong Konger) * Eating a Low-Fiber Diet (Hong Konger) documented in this encounter Medications at Time [...] 200 mg by mouth At Bedtime 0 polyethylene glycol (MIRALAX) 17 GM/Dose powderIndications:R LQ abdominal pain,Partial small bowel obstruction (H) Take 17 g by mouth daily 510 g 3 02/23/2023 06/16/2023 sennosides (SENOKOT) 8.6 MG tabletIndications:R LQ abdominal pain,Partial small bowel obstruction (H) Take 1-2 tablets by mouth 2 times daily as needed for constipation 90 tablet 1 02/23/2023 06/16/2023 predniSONE (DELTASONE) 10 MG tabletIndications:I BD (inflammatory [...] hours as needed for nausea 0 03/20/2023 predniSONE (DELTASONE) 5 MG tabletIndications:I BD (inflammatory bowel disease) Take 3 tablets (15 mg) by mouth daily for 7 days, THEN 2 tablets (10 mg) daily for 7 days, THEN 1 tablet (5 mg) daily for 7 days. 42 tablet 0 03/13/2023 03/26/2023 documented as of this encounter Progress Notes * Alton Díaz, - 02/22/2023 2:48 PM CDT Images from [...] documentation was 20 minutes Alton Díaz DO [facility] SUBJECTIVE: Feeling somewhat better, tolerating po, [...] on interview. Of note, colonoscopy completed through [facility] [place] [facility] showed a distal ileal stricture due to [...] in AM Moderate Protein-Calorie Malnutrition GERD - LIBRARY PARAPROFESSIONAL pantoprazole MDD - LIBRARY PARAPROFESSIONAL nortriptyline Insomnia - LIBRARY PARAPROFESSIONAL trazodone Diet: Advance Diet as Tolerated: Low Fiber; Low Fiber DVT Prophylaxis: Pneumatic Compression Devices Uribe Catheter: Not present Lines: None Cardiac Monitoring: None Code Status: Full Code Disposition Plan: likely 02/23/23 Eva Hammond DO Hospitalist Service [facility] Securely message with Roll20 (more info) Text page via [facility] Paging/Directory Interval History Stable night. Patient passed [...] Johnnie Eduardo - 02/21/2023 1:29 PM CDT [facility] Progress Note [facility] (Adults Overflow) I met with Hortensia per consult request. I introduced myself and my role and Hortensia indicated that she did not need a policy services representative at this time. She indicated that she would let the nurse know if she wanted to see a policy services representative. Plan: I and other chaplains remain available for further support. Sam Lal Spice Cleaner Potato Chip Cooker Machine [facility] routine referrals *[id number] [facility] available 31/03 for emergent requests/referrals, either by paging the on-call policy services representative or by entering an BUSTER/STAT consult in [facility] (this will also page the on-call policy services representative). Associated attestation - Calin Trent - 02/24/2023 10:24 AM CDT Calin Ruffin, staff policy services representative have reviewed and agree with the following policy services representative student's note on 02/24/2023 at 10:24 AM. [...] with Zofran. Of note, colonoscopy completed through [facility] [place] [facility] showed a distal ileal stricture due to [...] Service [facility] Securely message with Roll20 (more info) Text page via [facility] Paging/Directory Interval History Stable night. No major [...] Ramirez RD, LANI Clinical Dietitian 3rd floor/ICU: [phone] All other floors: [phone] Weekend/holiday: [phone] Office: [phone] * Eva Hammond DO - 02/20/2023 4:03 [...] also persists. Of note, colonoscopy completed through [facility] showed a distal ileal stricture due to [...] intake prior to discharge. [facility] DO [facility] Securely message with Von (more info) Text page via [facility] Paging/Directory Interval History Stable night. No major [...] No evidence for associated bowel obstruction. JOAQUÍN CAAL MD * Betty Olivares APRN DEPORTATION OFFICER - 02/20/2023 10:50 AM CDT Images from [...] in counseling/coordination of care. Betty Olivares CNP [facility] ([facility]) [phone] * Apolinar Munoz MD - 02/19/2023 2:36 [...] to oral prednisone soon. Apolinar Munoz MD [facility] Office: [phone] * Madison Iverson MD - 02/19/2023 8:50 [...] ultimately diagnosed with chron's disease. Colonoscopy completedthrough [facility] showed a distal ileal stricture due to [...] Service [facility] Securely message with Roll20 (more info) Text page via [facility] Paging/Directory Interval History Stable night. No [...] Abnormality Status --------- ------ Extra Green Top ([place]...[[id number]] Final result Please view results for these tests on the individual orders. Extra Green Top ([place] Heparin) Tube Result Value Ref Range Hold Specimen [facility] Basic metabolic panel Result Value Ref Range [...] follow. Discussed with Dr. Alexander Dominguez PA-C [facility] ( [facility]) * Madison Iverson MD - 02/18/2023 [...] questions/paging, please contact the CRS office at [phone]. Roberta Ramirez PA-C [facility] Colon [facility] Rectal Surgery Attending Note Patient seen and examined independently. Agree with above assessment and plan. Feeling better. + small liquid stool after SBFT. abd soft, non-tender Plan Per GI Remicade about to start. No plan for urgent surgery at this time Diet recommendations per GI. Madison Iverson MD [facility] [address], [address] [place] [address] T: [phone] F: [phone] [email or web address] * Ulises Rondon MD - 02/18/2023 [...] ultimately diagnosed with chron's disease. Colonoscopy completedthrough [facility] evidently showed a distal ileal stricture [...] SBO. No definite active inflammation... -Records from [facility] indicates stenosis of her terminal ileum [...] Service [facility] Securely message with Roll20 (more info) Text page via [employer] Paging/Directory Interval History Stable night. GI has [...] Multiple pelvic phleboliths. Bones are unchanged. MAIKEL GRIFFITH MD SYSTEM ID: [id number] * Candy Lennon APRN DEPORTATION OFFICER - 02/17/2023 10:17 AM CDT Images from the original note were not included. [facility] Gastroenterology Progress note Interval History: Called back [...] patient visit, documentation, coordination. Candy Lennon CNP [facility] Digestive Health Office: [phone] * Ulises Rondon MD - 02/17/2023 7:23 [...] ultimately diagnosed with chron's disease. Colonoscopy completedthrough [facility] evidently showed a distal ileal stricture due to scar. This was also seen on CT scan dated 02/10/2023. Partial small bowel obstruction, persistent pain and low stool output. -noted on CT segments of narrowed distal small bowel causing a partial SBO. No definite active inflammation... -Records from [facility] indicates stenosis of her terminal ileum [...] Service [facility] Securely message with Roll20 (more info) Text page via [facility] Paging/Directory Interval History Chart reviewed, pt [...] Status --------- ------ CBC with platelets and d...[[id number]] Abnormal Final result Please view results for [...] DVT in the right lower extremity. MAIKEL SHORT MD * Massiel Mckenna MD - 02/16/2023 [...] the meantime with questions. Massiel Mckenna MD [facility] [phone] * Calin Pradhan DO - 02/16/2023 1:19 [...] Service [facility] Securely message with [email or web address] (more info) Text page via [employer] Paging/Directory Interval History Continues to have some [...] Service [facility] Securely message with Roll20 (more info) Text page via [facility] Paging/Directory Interval History Mild abd pain, [...] from the original note were not included. [facility] Gastroenterology Progress note Interval History: No abdominal [...] decrease by 5mg every 7days. -- Has [facility] follow up already scheduled at the end of February, continue with this visit. -- Ok for discharge from GI perspective. GI will sign off, please call with questions/concerns. Discussed with Dr. Vernon. 15 minutes spent on patient care including chart review, patient visit, documentation, coordination. Ella Lucia PA-C [facility] Digestive Health until 12PM Office: [phone] * Calin Pradhan DO - 02/14/2023 9:08 [...] Service [facility] Securely message with [email or web address] (more info) Text page via [employer] Paging/Directory Interval History No overnight events. Passing [...] Dosing Weight 67 kg Estimated Energy Needs: 6472-2910 kcals (25-30 Kcal/Kg) Justification: maintenance Estimated Protein [...] Ramirez RD, LD Clinical Dietitian 3rd floor/ICU: [phone] All other floors: [phone] Weekend/holiday: [phone] Office: [phone] * Calin Pradhan DO - 02/13/2023 1:00 PM CDTFormatting of this note is different from the [facility] Medicine Progress Note - Hospitalist Service [...] Service [facility] Securely message with Roll20 (more info) Text page via [facility] Paging/Directory Interval History No significant overnight events, [...] from the original note were not included. [facility] Gastroenterology Progress note Interval History: Doing much [...] patient visit, documentation, coordination. Ella Lucia PA-C [facility] until 12PM Office: [phone] * Keiry Freeman, RN - 02/12/2023 11:40 PM CDT [id number] Orientation: Alert and oriented. VSS. Htn. RA. [...] Service [facility] Securely message with Roll20 (more info) Text page via [employer] Paging/Directory Interval History She's hungry but only [...] from the original note were not included. [facility] Gastroenterology Progress note Interval History: Patient [...] patient visit, documentation, coordination. Ella Lucia PA-C [facility] Digestive [facility] until 12PM Office: [phone] * Candy Miller RN - 02/12/2023 6:34 [...] and provide interventions as needed. * Keiry Freeman RN - 02/11/2023 7:09 PM CDT Orientation: [...] Service [facility] Securely message with Roll20 (more info) Text page via [employer] Paging/Directory Interval History Having abdominal pain. No diarrhea since last night. Occasional nausea. [place]es chills. Denies chest pain, shortness of breath, [...] EXAM: CT ABDOMEN PELVIS W CONTRAST LOCATION: [facility] DATE/TIME: 02/10/2023 10:57 PM CDT INDICATION: [...] - No spiritual needs at this time. [facility] Remains available. Rev. Elvis LugoDiv. Staff Spice Cleaner * Candy Miller RN - 02/11/2023 12:50 [...] anniversary and they were to be in [place] at this time. Pt accepted spiritual health [...] Service [facility] Securely message with Roll20 (more info) Text page via [employer] Paging/Directory Chief Complaint Diarrhea History is obtained from the patient, medical records and my discussion with emergency department physician History of Present Illness Hortensia Buitrago is a 62 year old lady with history of migraine, asthma,? Depression/insomnia came into [facility] 02/10/2023 with symptoms of diarrhea which has [...] Positive LOWER LIMBS: no Pedal Edema Bilaterally GAMB CUTTER: Alert, Oriented x 3, Moving all the Four Limbs Data Imaging results reviewed over the past 24 hrs: Recent Results (from the past 24 hour(s)) CT Abdomen Pelvis w Contrast Narrative EXAM: CT ABDOMEN PELVIS W CONTRAST LOCATION: [facility] DATE/TIME: 02/10/2023 10:57 PM CDT INDICATION: [...] with patient, she was eating as usual LIBRARY PARAPROFESSIONAL - usually around 1 meal per day given total lack ofappetite at baseline. Was consuming a meal aws solution architect at the request of her daughter. NKFA. Answered questions surrounding low fiber diet handout provided on 02/14. ASSESSED NUTRITION NEEDS: ?? Dosing Weight 67 kg Estimated Energy Needs: 2694-1649 kcals (25-30 Kcal/Kg) Justification: maintenance Estimated Protein [...] traMADol - weight: Patient endorses weight loss LIBRARY PARAPROFESSIONAL from 186 lbs since November 2022. Weight [...] Ramirez RD, LD Clinical Dietitian 3rd floor/ICU: [phone] All other floors: [phone] Weekend/holiday: [phone] Office: [phone] * Roberta Ramirez PA-C - 02/17/2023 12:54 PM CDTAssociated Order(s): COLORECTAL SURGERY IP CONSULT [facility] [...] EXAM: CT ABDOMEN PELVIS W CONTRAST LOCATION: [facility] DATE/TIME: 02/10/2023 10:57 PM CDT INDICATION: [...] Rondon, presents with abdominal pain and nausea. CT [...] Hortensia Buitrago as part of a shared UNIT RECEPTIONIST/PA visit. I personally reviewed the vital signs, [...] Iverson MD [facility] [address], [address] [place] [address] T: [phone] F: [phone] [email or web address] Madison Iverson MD, MD Date of Service (when I saw the patient): 02/17/23 * Mayela Pruitt APRN DEPORTATION OFFICER - 02/11/2023 1:30 PM CDTAssociated Order(s): GASTROENTEROLOGY IP CONSULT Images from the original note were not included. GASTROENTEROLOGY CONSULTATION Hortensia Buitrago [address] [facility] [id number] 62 year old female Admission Date/Time: 02/10/2023 Primary Care Provider: No Ref-Primary, Physician We were asked to see the patient in consultation by Dr. Weaver for evaluation of Crohn's disease. CC: Abdominal pain, diarrhea HPI: Hortensia Buitrago is a 62 year old female who recently underwent work-up at [facility] with findings suggestive of Crohn's disease [...] including patient evaluation, reviewing documentation/test results, and warehouse order puller. Thank you for asking us to participate in the care of this patient. Mayela Pruitt, [facility] ([facility]) [phone] Associated attestation - Ananda Vernon MD - [...] 1. Lift room needed: No. Bariatric: No Diamond Merchant Needed: No Isolation: No. Infection: Not Applicable. [...] She was seen for a follow-up at [facility] today and referred here for IV [...] BOLUS (1,000 mLs Intravenous $New Bag 02/10/23 9436) iopamidol (ISOVUE-370) solution 500 mL (has no administration in time range) CT scan flush (has no administration in time range) morphine (PF) injection 4 mg (4 mg Intravenous $Given 02/10/23 2072) ondansetron (ZOFRAN) injection 4 mg (4 mg Intravenous $Given 02/10/23 5494) Drips infusing: No For the majority of [...] She was seen for a follow-up at [facility] today and referred here for IV steroids. She has been on 40 mg prednisone for 10 days without relief. Denies blood in stool. Reports when she eats, she immediately passes watery stool. Denies vomiting. Independent Historian: None - Patient Only Review of External Notes: Reviewed [facility] notes. Reviewed ED note from [facility] on 01/20. She had imaging performed at [...] as noted above. 2227 D/W Dr. Turcios ([facility]). Would like repeat CT. If no [...] care of Dr. Weaver. Impression & Plan [facility] Diagnoses: None Code Status: Full Code Medical [...] 02/23/2023 9:23 AM CDT Goal Outcome Evaluation: [id number] Plan of Care Reviewed With: patient Overall [...] 02/22/2023 11:31 AM CDT Goal Outcome Evaluation: [id number] Plan of Care Reviewed With: patient Overall [...] 02/21/2023 2:53 PM CDT Goal Outcome Evaluation: 5516-2814 Plan of Care Reviewed With: patient Overall [...] Ramirez RD, LANI Clinical Dietitian 3rd floor/ICU: [phone] All other floors: [phone] Weekend/holiday: [phone] Office: [phone] * Plan of Care - Yulissa Culp [...] this afternoon shift. Pt slept throughout the shift boss. Will continue to provide supportive cares. * [...] Progress: no changeOverall Patient Progress: no change 7229-1212 Afebrile, VSS, lungs clear, bowel sounds heard [...] x1. Pt rested comfortably between cares. Took LIBRARY PARAPROFESSIONAL nortriptyline for DAVE this evening. Continues to [...] 02/13/2023 12:08 PM CDT Goal Outcome Evaluation 0974-4516: Orientation: Alert and oriented x4. VSS except [...] - 02/12/2023 3:28 PM CDT Paged at 1524: FYI when trouble shooting pt IV, flushed and pt had severe pain at insertion site that traveled up her arm about 2 inches. IV removed with pain intermittently present. Cold applied intermittently. New IV placed. * Provider Notification - Keiry Freeman RN - 02/11/2023 3:45 PM CDT Paged at 1548: Pt requesting her Trazodone and Nortiptyline scheduled [...] * Pharmacy-Admission Medication History - [facility] - 02/11/2023 11:44 AM CDT Pharmacist Admission Medication History Admission medication history is complete. The information provided in this note is only as accurateas the sources available at the time of the update. Medication reconciliation/reorder completed by provider prior to medication history? No Information Source(s): Patient via written list Changes made to LIBRARY PARAPROFESSIONAL medication list: ??? Added: all medications ??? [...] Medication Sig Last Dose Taking? Auth Provider Artificial Snow Making Machine Operator End Date acetaminophen (TYLENOL) 650 MG [...] - 02/11/2023 6:14 AM CDT Shift Summary [id number]- Pt reports she has not slept well [...] 2:28 PM CDT QUANTIFERON TB GOLD PLUS HOBSON TUBE Routine 02/11/2023 2:28 PM CDT QUANTIFERON-TB [...] Basic metabolic panel (02/23/2023 6:48 AM CDT) [facility] Sodium 137 136 - 145 mmol/L 02/23/2023 [...] 10:08 AM CDT LABORATORY Comment:eGFR calculated usin g 2020 CKD-EPI equation. Blood STRUCTURE OF RIGHT HAND / Unknown Venipuncture / Unknown 02/23/2023 6:48 AM CDT 02/23/2023 6:56 AM CDT Eva Hammond DO LAB - BLOOD ORDERA BLES [facility] Care Lab [address] Lab (1st floor, no room number) [place] [address], [facility] [phone] * Phosphorus (02/23/2023 6:48 AM CDT) Phosphorus 2.8 2.5 - 4.5 mg/dL 02/23/2023 7:27 AM CDT LABORATORY Blood STRUCTURE OF RIGHT HAND / Unknown Venipuncture / Unknown 02/23/2023 6:48 AM CDT 02/23/2023 6:56 AM CDT Lukasz Weaver MD LAB - BLOOD ORDERABL ES [facility] [address] Lab (1st floor, no room number) [place] [id number], [facility] [phone] * Magnesium (02/23/2023 6:48 AM CDT) Magnesium 2.3 1.7 - 2.3 mg/dL 02/23/2023 7:27 AM CDT [facility] LABORATORY Blood STRUCTURE OF RIGHT HAND / Unknown Venipuncture / Unknown 02/23/2023 6:48 AM CDT 02/23/2023 6:56 AM CDT Lukasz Weaver MD LAB - BLOOD ORDERABL ES [facility] Lab [address] Lab (1st floor, no room number) [place] [phone], [facility] [phone] * Potassium (02/23/2023 6:48 AM CDT) Pathologist [facility] Potassium 4.0 3.4 - 5.3 mmol/L 02/23/2023 7:27 AM CDT [facility] LABORATORY Blood STRUCTURE OF RIGHT HAND / Unknown Venipuncture / Unknown 02/23/2023 6:48 AM CDT 02/23/2023 6:56 AM CDT Lukasz Weaver MD LAB - BLOOD ORDERABL ES LABORATORY [facility] Acute Care Lab [address] Lab (1st floor, no room number) [place] [phone], [facility] [phone] * (ABNORMAL) Basic metabolic panel (02/22/2023 6:49 AM CDT) Sodium 140 136 - 145 mmol/L 02/22/2023 10:38 AM CDT LABORATORY Potassium 4.8 3.4 - 5.3 mmol/L 02/22/2023 10:38 AM CDT [facility] LABORATORY Chloride 102 98 - 107 mmol/L 02/22/2023 10:38 AM CDT LABORATORY Carbon Dioxide (CO2) 30(H) 22 - 29 mmol/L 02/22/2023 10:38 AM CDT [facility] LABORATORY Anion Gap 8 [...] >60 mL/min/1.7 3m2 02/22/2023 10:38 AM CDT [facility] LABORATORY Comment:eGFR calculated usin g 2020 CKD-EPI equation. Blood BLOOD SPECIMEN / Unknown Venipuncture / Unknown 02/22/2023 6:49 AM CDT 02/22/2023 10:15 AM CDT Lukasz Weaver MD LAB - BLOOD ORDERABL ES Performing Organization Address City/[facility]/ZIP Co de Phone Number [facility] [address] Lab (1st floor, no room number) [place] [address], [facility] [phone] * Phosphorus (02/22/2023 6:49 AM CDT) Phosphorus 3.5 2.5 - 4.5 mg/dL 02/22/2023 7:25 AM CDT LABORATORY Blood STRUCTURE OF RIGHT UPPER LIMB / Unknown Venipuncture / Unknown 02/22/2023 6:49 AM CDT 02/22/2023 7:01 AM CDT Lukasz Weaver MD LAB - BLOOD ORDERABL ES [facility] [address] [address] [facility] (1st floor, no room number) [place] [address], [facility] [phone] * (ABNORMAL) Magnesium (02/22/2023 6:49 AM CDT) Magnesium 2.4(H) 1.7 - 2.3 mg/dL 02/22/2023 7:25 AM CDT [facility] LAB[facility] Blood STRUCTURE OF RIGHT UPPER LIMB / Unknown Venipuncture / Unknown 02/22/2023 6:49 AM CDT 02/22/2023 7:01 AM CDT Lukasz Weaver MD LAB - BLOOD ORDERABL ES [facility] LABORATORY [facility] Acute Care Lab [address] [facility] Lab (1st floor, no room number) [place] [address], [facility] [phone] * (ABNORMAL) CBC with platelets (02/22/2023 6:49 [...] 6:49 AM CDT 02/22/2023 7:01 AM CDT Evaeloy Torresjone LAB - BLOOD ORDERA BLES Performing Organization Address City/[facility]/ZIP Co de Phone Number [facility] Acute Care Lab [address] Lab (1st floor, no room number) [place] [address], [facility] [phone] * Phosphorus (02/21/2023 6:43 AM CDT) Phosphorus 3.8 2.5 - 4.5 mg/dL 02/21/2023 7:16 AM CDT [facility] LABORATORY Blood STRUCTURE OF LEFT UPPER LIMB / Unknown Venipuncture / Unknown 02/21/2023 6:43 AM CDT 02/21/2023 6:49 AM CDT Eva Manish LAB - BLOOD ORDERA BLES Performing Organization Address [facility]/ZIP Co de Phone Number [facility] Care Lab [address] Lab (1st floor, no room number) [place] [address], [facility] [phone] * Magnesium (02/21/2023 6:43 AM CDT) Magnesium 2.3 1.7 - 2.3 mg/dL 02/21/2023 7:16 AM CDT [facility] LABORATORY Blood STRUCTURE OF LEFT UPPER LIMB / Unknown Venipuncture / Unknown 02/21/2023 6:43 AM CDT 02/21/2023 6:49 AM CDT Eva Padjone LAB - BLOOD ORDERA BLES [facility] Acute [facility] Lab [address] Lab (1st floor, no room number) [place] [address], [facility] [phone] * (ABNORMAL) Basic metabolic panel (02/21/2023 6:43 AM CDT) Pathologist [facility] Sodium 139 136 - 145 mmol/L 02/21/2023 [...] 02/21/2023 7:16 AM CDT LABORATORY Comment:eGFR calculated us2020 CKD-EPI equation. Blood STRUCTURE OF LEFT UPPER LIMB / Unknown Venipuncture / Unknown 02/21/2023 6:43 AM CDT 02/21/2023 6:49 AM CDT Eva Hammond DO LAB - BLOOD ORDERA BLES LABORATORY [facility] Acute Care Lab [address] Lab (1st floor, no room number) [place] [address], [facility] [phone] * (ABNORMAL) CBC with platelets (02/21/2023 6:43 AM CDT) WBC Count 12.1(H) 4.0 - 11.0 10e3/uL 02/21/2023 6:52 AM CDT LABORATORY RBC Count 4.59 3.80 - 5.20 [...] DO LAB - BLOOD ORDERA BLES LABORATORY [facility] Acute Care Lab [address] [facility] Lab (1st floor, no room number) [place] [address], [facility] [phone] * CT Abdomen Pelvis w Contrast (02/20/2023 [...] ??No evidence for associated bowel obstruction. JOAQUÍN CAAL MD Narrative 02/20/2023 12:[address] [...] thoracolumbar spine. MUSCULOSKELETAL: Unremarkable. Procedure Note Joaquín Caal MD - 02/20/2023 CT ABDOMEN AND PELVIS [...] No evidence for associated bowel obstruction. JOAQUÍN CAAL MD Betty Olivares SUN DEPORTATION OFFICER IMG CT ORDERABL ES * (ABNORMAL) Basic metabolic [...] - 0.95 mg/dL 02/20/2023 7:32 AM CDT [facility] LAB[facility] Calcium 9.0 8.8 - 10.2 mg/dL 02/20/2023 7:32 AM CDT [facility] Glucose 154(H) 70 - 99 mg/dL 02/20/2023 7:32 AM CDT [facility] GFR Estimate 59(L) >60 mL/min/1.7 3m2 02/20/2023 7:32 AM CDT RH LABORATORY Comment:eGFR calculated usin g 2020 CKD-EPI equation. Blood STRUCTURE OF LEFT UPPER LIMB / Unknown Venipuncture / Unknown 02/20/2023 6:58 AM CDT 02/20/2023 7:02 AM CDT Ulises Rondon MD LAB - BLOOD ORDERABL ES LABORATORY [facility] Acute Care Lab [address] Lab (1st floor, no room number) [place] [address], [facility] [phone] * (ABNORMAL) Basic metabolic panel (02/19/2023 5:22 AM CDT) [facility] Signature Sodium 137 136 - 145 mmol/L 02/19/2023 [...] - 99 mg/dL 02/19/2023 7:28 AM CDT LABORATORY GFR Estimate 62 >60 mL/min/1.7 3m2 02/19/2023 7:28 AM CDT LABORATORY Comment:eGFR calculated us2020 CKD-EPI equation. Blood STRUCTURE OF RIGHT UPPER LIMB / Unknown Venipuncture / Unknown 02/19/2023 5:22 AM CDT 02/19/2023 5:43 AM CDT Lukasz A Weaver MD LAB - BLOOD ORDERABL ES LABORATORY [facility] Acute Care Lab [address] [facility] (1st floor, no room number) [place] [address], [facility] [phone] * Extra Green Top ([place] Heparin) Tube (02/19/2023 5:22 AM CDT) Hold Specimen JIC 02/19/2023 6:46 AM CDT RH LABORATORY Blood STRUCTURE OF RIGHT UPPER LIMB / Unknown Venipuncture / Unknown 02/19/2023 5:22 AM CDT 02/19/2023 5:43 AM CDT Lukasz Weaver MD LAB - BLOOD ORDERABL ES Performing Organization Address City/[facility]/ZIP Co de Phone Number LABORATORY [facility] Care Lab [address] Lab (1st floor, no room number) [place] [address], [facility] [phone] * (ABNORMAL) CBC with platelets (02/19/2023 5:22 [...] MD LAB - BLOOD ORDERABL ES LABORATORY [facility] Acute Care Lab [address] Lab (1st floor, no room number) [place] [address], [facility] [phone] * XR Gastrografin Challenge (02/17/2023 9:45 PM CDT) Anatomical Region Laterality Modality Abdomen/Pelvis Digital Radiogra phy Impressions 02/17/2023 10:11 PM CDT IMPRESSION: Mildly dilated distal small bowel, similar to prior CT scan same day radiograph. Administered oral contrast reached the colon by 8 hours. Cholecystectomy. Multiple pelvic phleboliths. Bones are unchanged. MAIKEL GRIFFITH MD SYSTEM ID: [id number] Narrative 02/17/2023 10:11 PM CDT XR GASTROGRAFIN CHALLENGE ?? 02/17/2023 9:45 PM HISTORY: Persistent SBO COMPARISON: Same date abdominal radiograph, CT abdomen/pelvis 02/10/2023 Procedure Note Maikel Griffith MD - 02/17/2023 XR GASTROGRAFIN CHALLENGE 02/17/2023 9:45 PM HISTORY: Persistent SBO COMPARISON: Same date abdominal radiograph, CT abdomen/pelvis 02/10/2023 IMPRESSION: Mildly dilated distal small bowel, similar to prior CT scan same day radiograph. Administered oral contrast reached the colon by 8 hours. Cholecystectomy. Multiple pelvic phleboliths. Bones are unchanged. MAIKEL GRIFFITH MD SYSTEM ID: [id number] Roberta Ramirez PA-C IMG DIAGNOSTIC MELVA GING ORDERABLES * US Lower Extremity Venous Duplex Right (02/17/2023 2:32 PM CDT) Anatomical Region Laterality Modality Lower Extremity Ultrasound Impressions 02/17/2023 3:04 PM CDT IMPRESSION: Negative for DVT in the right lower extremity. MAIKEL SHORT MD Narrative 02/17/2023 3:04 PM CDT VENOUS [...] femoral vein is patent. Procedure Note Maikel Short MD - 02/17/2023 VENOUS ULTRASOUND RIGHT LOWER [...] DVT in the right lower extremity. MAIKEL SHORT MD Ulises Rondon MD IMG US ORDERABLES [...] pelvic phleboliths. QUETA MCLEOD MD Candy Lennon UNIT RECEPTIONIST DEPORTATION OFFICER IMG DIAGNO STIC IMAGING ORDERABLES * Prealbumin (02/17/2023 7:21 AM CDT) Pathologist [facility] Prealbumin 32 15 - 45 mg/dL 02/18/2023 12:33 PM CDT SPECIALTY CORE/PROT/ENDO Blood STRUCTURE OF RIGHT UPPER LIMB / Unknown Venipuncture / Unknown 02/17/2023 7:21 AM CDT 02/17/2023 7:29 AM CDT Roberta Ramirez PA-C LAB - BLOOD ORDERA BLES [facility] [address] [facility] [address] [facility], [address] [address], [facility] [phone] UM SPECIALTY CORE/PROT/ENDO Specialty Core/Prot/Endo [address] [facility] [address] [facility], Room [address] [place] [id number] [place] [address] * (ABNORMAL) CBC with platelets and differential (02/17/2023 7:21 AM CDT) Pathologist [facility] WBC Count 9.6 4.0 - 11.0 10e3/uL [...] - 5.3 10e3/uL 02/17/2023 7:35 AM CDT [facility] LABORATORY Absolute Monocytes 0.8 0.0 - 1.3 10e3/uL 02/17/2023 7:35 AM CDT RH LABORATORY Absolute Eosinophils 0.1 0.0 - 0.7 10e3/uL 02/17/2023 7:35 AM CDT RH LABORATORY Absolute Basophils 0.0 0.0 - 0.2 10e3/uL 02/17/2023 7:35 AM CDT RH LABORATORY Absolute Immature Granulocytes 0.2 <=0.4 10e3/uL 02/17/2023 7:35 AM CDT RH LABORATORY Absolute NRBCs 0.0 10e3/uL 02/17/2023 7:35 AM CDT [facility] LAB[facility]ATORY Blood STRUCTURE OF RIGHT UPPER LIMB / Unknown Venipuncture / Unknown 02/17/2023 7:21 AM CDT 02/17/2023 7:29 AM CDT Massiel Mckenna MD LAB - BLOOD ORD ERABLES RH LABORATORY [facility] Acute Care Lab [address] Lab (1st floor, no room number) [place] [address], [facility] [phone] * (ABNORMAL) Comprehensive metabolic panel (02/17/2023 7:21 AM CDT) Sodium 139 136 - 145 mmol/L 02/17/2023 7:53 AM CDT LABORATORY Potassium 3.8 3.4 - 5.3 mmol/L 02/17/2023 7:53 AM CDT LABORATORY Chloride 105 98 - 107 mmol/L 02/17/2023 7:53 AM CDT LABORATORY Carbon Dioxide (CO2) 26 22 - 29 mmol/L 02/17/2023 7:53 AM CDT RH LABORATORY Anion Gap 8 7 - 15 mmol/L 02/17/2023 7:53 AM CDT LABORATORY Urea Nitrogen 18.4 8.0 - 23.0 mg/dL 02/17/2023 7:53 AM CDT LABORATORY Creatinine 1.12(H) 0.51 - 0.95 mg/dL 02/17/2023 7:53 AM CDT LABORATORY Calcium 8.4(L) 8.8 - 10.2 mg/dL 02/17/2023 7:53 AM CDT [facility] LAB[facility] Glucose 89 70 - 99 mg/dL 02/17/2023 7:53 AM CDT RH LABORATORY Alkaline Phosphatase 57 35 - 104 U/L 02/17/2023 7:53 AM CDT LABORATORY AST 10 10 - 35 U/L 02/17/2023 7:53 AM CDT RH LABORATORY ALT 15 10 - 35 U/L 02/17/2023 7:53 AM CDT RH LABORATORY Protein Total 5.0(L) 6.4 - 8.3 g/dL 02/17/2023 7:53 AM CDT RH LABORATORY Albumin 3.1(L) 3.5 - 5.2 g/dL 02/17/2023 7:53 AM CDT [facility] LAB[facility] Bilirubin Total 0.4 <=1.2 mg/dL 02/17/2023 7:53 AM CDT [facility] LAB[facility] GFR Estimate 55(L) >60 mL/min/1.7 3m2 02/17/2023 7:53 AM CDT RH LABORATORY Comment:eGFR calculated usin g 2020 CKD-EPI equation. Blood STRUCTURE OF RIGHT UPPER LIMB / Unknown Venipuncture / Unknown 02/17/2023 7:21 AM CDT 02/17/2023 7:29 AM CDT Massiel Mckenna MD LAB - BLOOD ORD ERABLES [facility] Lab [address] Lab (1st floor, no room number) [place] [address], [facility] [phone] * (ABNORMAL) Creatinine (02/16/2023 5:58 AM CDT) Creatinine 1.13(H) 0.51 - 0.95 mg/dL 02/16/2023 7:04 AM CDT [facility] LABORATORY GFR Estimate 54(L) >60 mL/min/1.7 3m2 02/16/2023 7:04 AM CDT RH LABORATORY Comment:eGFR calculated usin g 2020 CKD-EPI equation. Blood STRUCTURE OF LEFT UPPER LIMB / Unknown Venipuncture / Unknown 02/16/2023 5:58 AM CDT 02/16/2023 6:45 AM CDT Lukasz Weaver MD LAB - BLOOD ORDERABL ES [facility] Lab [address] Lab (1st floor, no room number) [place] [address], [facility] [phone] * Platelet count (02/16/2023 5:58 AM CDT) Pathologist [facility] Platelet Count 283 150 - 450 10e3/uL 02/16/2023 6:49 AM CDT LABORATORY Blood STRUCTURE OF LEFT UPPER LIMB / Unknown Venipuncture / Unknown 02/16/2023 5:58 AM CDT 02/16/2023 6:46 AM CDT Lukasz Weaver MD LAB - BLOOD ORDERABL ES LABORATORY [facility] Acute Care Lab [address] [facility] Lab (1st floor, no room number) [place] [address], [facility] [phone] * (ABNORMAL) Basic metabolic panel (02/15/2023 10:11 AM CDT) Pathologist [facility] Sodium 138 136 - 145 mmol/L 02/15/2023 [...] - 0.95 mg/dL 02/15/2023 10:47 AM CDT LABORATORY Calcium 8.7(L) 8.8 - 10.2 mg/dL 02/15/2023 10:47 AM CDT LABORATORY Glucose 115(H) 70 - 99 mg/dL 02/15/2023 10:47 AM CDT LABORATORY GFR Estimate 53(L) >60 mL/min/1.7 3m2 02/15/2023 10:47 AM CDT RH LABORATORY Comment:eGFR calculated usin g 2020 CKD-EPI equation. Blood STRUCTURE OF LEFT UPPER LIMB / Unknown Venipuncture / Unknown 02/15/2023 10:11 AM CDT 02/15/2023 10:24 AM CDT Calin A Carolynn DO LAB - BLOOD ORDERABL ES [facility] LABORATORY [facility] Acute Care Lab [address] Lab (1st floor, no room number) [place] [address], [facility] [phone] * (ABNORMAL) CBC with platelets (02/15/2023 10:11 [...] - 450 10e3/uL 02/15/2023 10:28 AM CDT RH LABORATORY Blood STRUCTURE OF LEFT UPPER LIMB / Unknown Venipuncture / Unknown 02/15/2023 10:11 AM CDT 02/15/2023 10:23 AM CDT Calin A Carolynn DO LAB - BLOOD ORDERABL ES RH LABORATORY [facility] Acute Care Lab [address] Lab (1st floor, no room number) [place] [address], [facility] [phone] * (ABNORMAL) Basic metabolic panel (02/14/2023 6:39 [...] AM CDT 02/14/2023 6:42 AM CDT Calin Pradhan DO LAB - BLOOD ORDERABL ES LABORATORY [facility] Acute Care Lab [address] Lab (1st floor, no room number) [place] [address], [facility] [phone] * (ABNORMAL) CBC with platelets (02/14/2023 6:39 AM CDT) WBC Count 13.5(H) 4.0 - [...] DO LAB - BLOOD ORDERABL ES LABORATORY [facility] Acute Care Lab [address] [facility] Lab (1st floor, no room number) [place] [address] [phone] * (ABNORMAL) Creatinine (02/13/2023 6:56 AM CDT) Creatinine 0.99(H) 0.51 - 0.95 mg/dL 02/13/2023 7:27 AM CDT RH LABORATORY GFR Estimate 64 >60 mL/min/1.7 3m2 02/13/2023 7:27 AM CDT RH LABORATORY Comment:eGFR calculated us2020 CKD-EPI equation. Blood STRUCTURE OF RIGHT UPPER LIMB / Unknown Venipuncture / Unknown 02/13/2023 6:56 AM CDT 02/13/2023 7:06 AM CDT Lukasz Weaver MD LAB - BLOOD ORDERABL ES LABORATORY [facility] Acute Care Lab [address] Lab (1st floor, no room number) [place] [address], [facility] [phone] * Platelet count (02/13/2023 6:56 AM CDT) Platelet Count 327 150 - 450 10e3/uL 02/13/2023 7:11 AM CDT LABORATORY Blood STRUCTURE OF RIGHT UPPER LIMB / Unknown Venipuncture / Unknown 02/13/2023 6:56 AM CDT 02/13/2023 7:06 AM CDT Lukasz Weaver MD LAB - BLOOD ORDERABL ES [facility] Acute [facility] Lab [address] Lab (1st floor, no room number) [place] [address], [facility] [phone] * C. difficile Toxin B PCR with [...] LABORATORY - 02/12/2023 5:16 PM CDT The [email or web address] Xpert C. difficile Assay, performed on the [employer] GeneXpert?? Instrument Systems, is a qualitative in [...] - MICRO GENERAL ORDERABLES [facility]U IDD LABORATORY [facility] Inf. Diseases Diag. Lab [address] [facility], [address] [place] [address], [facility] [phone] * (ABNORMAL) CBC with platelets (02/12/2023 8:58 [...] - 36.5 g/dL 02/12/2023 9:06 AM CDT RH LABORATORY RDW 14.6 10.0 - 15.0 % 02/12/2023 9:06 AM CDT RH LABORATORY Platelet Count 363 150 - 450 10e3/uL 02/12/2023 9:06 AM CDT RH LABORATORY Blood STRUCTURE OF LEFT UPPER LIMB / Unknown Venipuncture / Unknown 02/12/2023 8:58 AM CDT 02/12/2023 9:02 AM CDT Swapnil Lawrence DO LAB - BLOOD ORDERA BLES LABORATORY [facility] Acute Care Lab [address] Lab (1st floor, no room number) [place] [address], [facility] [phone] * (ABNORMAL) Basic metabolic panel (02/12/2023 8:58 AM CDT) [facility] Sodium 140 136 - 145 mmol/L 02/12/2023 [...] 9:24 AM CDT LABORATORY Comment:eGFR calculated usin g 2020 CKD-EPI equation. Blood STRUCTURE OF LEFT UPPER LIMB / Unknown Venipuncture / Unknown 02/12/2023 8:58 AM CDT 02/12/2023 9:02 AM CDT Swapnil Lawrence DO LAB - BLOOD ORDERA BLES [facility] Acute Care Lab [address] [employer] Lab (1st floor, no room number) [place] [address], [facility] [phone] * Quantiferon TB Gold Plus (02/11/2023 2:28 PM CDT) Quantiferon-TB Gold Plus Negative Negative 02/13/2023 11:24 AM CDT SPECIALTY CORE/PROT/END O Comment: No interferon gamma [...] Value 0.00 IU/mL 02/13/2023 11:24 AM CDT SPECIALTY CORE/PROT/END O TB2 Ag minus Nil Value 0.00 IU/mL 02/13/2023 11:24 AM CDT SPECIALTY CORE/PROT/END O Mitogen minus Nil Result 3.46 IU/mL 02/13/2023 11:24 AM CDT SPECIALTY CORE/PROT/END O Nil Result 0.00 IU/mL 02/13/2023 11:24 AM CDT SPECIALTY CORE/PROT/END O Blood STRUCTURE OF LEFT UPPER LIMB / Unknown Venipuncture / Unknown 02/11/2023 2:28 PM CDT 02/11/2023 2:33 PM CDT Mayela Pruitt APRN DEPORTATION OFFICER LAB - [address] [address] GENERAL ORDERABLES UM SPECIALTY CORE/PROT/ENDO Specialty Core/Prot/Endo [address] [facility] [address], Room [address] [place] [address], [facility] [phone] * Quantiferon TB Gold Plus Purple Tube (02/11/2023 2:28 PM CDT) Pathologist [facility] Quantiferon Mitogen 3.46 IU/mL 02/13/2023 10:35 AM CDT SPECIALTY CORE/PROT/ENDO Blood STRUCTURE OF LEFT UPPER LIMB / Unknown Venipuncture / Unknown 02/11/2023 2:28 PM CDT 02/11/2023 2:33 PM CDT Mayela Pruitt APRN [facility] LAB - [place] RO GENERAL ORDERABLES UM SPECIALTY CORE/PROT/ENDO UM Specialty Core/Prot/Endo [address] [facility] [address] Building, [address] [phone] * Quantiferon TB Gold Plus Yellow Tube (02/11/2023 2:28 PM CDT) Quantiferon TB2 Tube 0.00 02/13/2023 10:34 AM CDT SPECIALTY CORE/PROT/ENDO Blood STRUCTURE OF LEFT UPPER LIMB / Unknown Venipuncture / Unknown 02/11/2023 2:28 PM CDT 02/11/2023 2:33 PM CDT Mayela Pruitt APRN [facility] LAB - [facility] RO GENERAL ORDERABLES Performing Organization Address City/[facility]/ZIP Co de Phone Number UM SPECIALTY CORE/PROT/ENDO UM Specialty Core/Prot/Endo [address] [facility] [address] [facility], Room [address] [phone] * Quantiferon TB Gold Plus Green Tube (02/11/2023 2:28 PM CDT) Quantiferon TB1 Tube 0.00 IU/mL 02/13/2023 10:34 AM CDT UM SPECIALTY CORE/PROT/ENDO Blood STRUCTURE OF LEFT UPPER LIMB / Unknown Venipuncture / Unknown 02/11/2023 2:28 PM CDT 02/11/2023 2:33 PM CDT Mayela Pruitt APRN [facility] LAB - [facility] RO GENERAL ORDERABLES UM SPECIALTY CORE/PROT/ENDO UM Specialty Core/Prot/Endo [address] [facility] [address] Building, [address] [phone] * Quantiferon TB Gold Plus [place] Tube (02/11/2023 2:28 PM CDT) Quantiferon Nil Tube 0.00 IU/mL 02/13/2023 10:33 AM CDT SPECIALTY CORE/PROT/ENDO Blood STRUCTURE OF LEFT UPPER LIMB / Unknown Venipuncture / Unknown 02/11/2023 2:28 PM CDT 02/11/2023 2:33 PM CDT Mayela Salina Edmond UNIT RECEPTIONIST DEPORTATION OFFICER LAB - [place] RO GENERAL ORDERABLES SPECIALTY CORE/PROT/ENDO Specialty Core/Prot/Endo [address] [facility], [address] [phone] * (ABNORMAL) CBC with platelets (02/11/2023 7:00 [...] - 36.5 g/dL 02/11/2023 7:24 AM CDT RH LABORATORY RDW 15.1(H) 10.0 - 15.0 % 02/11/2023 7:24 AM CDT RH LABORATORY Platelet Count 313 150 - 450 10e3/uL 02/11/2023 7:24 AM CDT RH LABORATORY Blood STRUCTURE OF LEFT UPPER LIMB / Unknown Venipuncture / Unknown 02/11/2023 7:00 AM CDT 02/11/2023 7:16 AM CDT Lukasz Weaver MD LAB - BLOOD ORDERABL ES LABORATORY [facility] Acute Care Lab [address] Lab (1st floor, no room number) [place] [address], [facility] [phone] * (ABNORMAL) Comprehensive metabolic panel (02/11/2023 7:00 [...] - 8.3 g/dL 02/11/2023 7:39 AM CDT LABORATORY Albumin 3.6 3.5 - 5.2 g/dL 02/11/2023 7:39 AM CDT LABORATORY Bilirubin Total 0.2 <=1.2 mg/dL 02/11/2023 7:39 AM CDT RH LABORATORY GFR Estimate 56(L) >60 mL/min/1.7 3m2 02/11/2023 7:39 AM CDT LABORATORY Comment:eGFR calculated us2020 CKD-EPI equation. Blood STRUCTURE OF LEFT UPPER LIMB / Unknown Venipuncture / Unknown 02/11/2023 7:00 AM CDT 02/11/2023 7:16 AM CDT Lukasz Weaver MD LAB - BLOOD ORDERABL ES [facility] Lab [address] Lab (1st floor, no room number) [place] [address], [facility] [phone] * CT Abdomen Pelvis w Contrast (02/10/2023 [...] EXAM: CT ABDOMEN PELVIS W CONTRAST LOCATION: [facility] DATE/TIME: 02/10/2023 10:57 PM CDT INDICATION: [...] EXAM: CT ABDOMEN PELVIS W CONTRAST LOCATION: [facility] DATE/TIME: 02/10/2023 10:57 PM CDT INDICATION: [...] Surface Antibody Nonreactive 02/12/2023 11:12 AM CDT SPECIALTY CORE/PROT/END O Comment:No antibody detected when the value is less than 8.00 mIU/mL. Blood STRUCTURE OF RIGHT UPPER LIMB / Unknown Venipuncture / Unknown 02/10/2023 6:54 PM CDT 02/10/2023 7:01 PM CDT Mayela Pruitt APRN DEPORTATION OFFICER LAB - BLO OD ORDERABLES UM SPECIALTY CORE/PROT/ENDO UM Specialty Core/Prot/Endo [address] [facility] [address] [facility], Room [address] [phone] * Hepatitis B surface antigen (02/10/2023 6:54 PM CDT) Hepatitis B Surface Antigen Nonreactive Nonreactive 02/12/2023 11:12 AM CDT UM SPECIALTY CORE/PROT/EN DO Blood STRUCTURE OF RIGHT UPPER LIMB / Unknown Venipuncture / Unknown 02/10/2023 6:54 PM CDT 02/10/2023 7:01 PM CDT Mayela Pruitt APRN DEPORTATION OFFICER LAB - BLO OD ORDERABLES Performing Organization Address City/[facility]/ZIP Co de Phone Number UM SPECIALTY CORE/PROT/ENDO UM Specialty Core/Prot/Endo [address] [facility], [address] [phone] * Hepatitis B core antibody (02/10/2023 6:54 PM CDT) Hepatitis B Core Antibody Total Nonreactive Nonreactive 02/12/2023 11:12 AM CDT SPECIALTY CORE/PROT/EN DO Blood STRUCTURE OF RIGHT UPPER LIMB / Unknown Venipuncture / Unknown 02/10/2023 6:54 PM CDT 02/10/2023 7:01 PM CDT Mayela Pruitt APRN DEPORTATION OFFICER LAB - BLO OD ORDERABLES UM SPECIALTY CORE/PROT/ENDO Specialty Core/Prot/Endo [address] [facility] [address] [facility], [address] [phone] * Extra Red Top Tube (02/10/2023 6:54 PM CDT) Hold Specimen JIC 02/10/2023 8:04 PM CDT LABORATORY Blood STRUCTURE OF RIGHT UPPER LIMB / Unknown Venipuncture / Unknown 02/10/2023 6:54 PM CDT 02/10/2023 7:01 PM CDT Philipp Schneider DO LAB - BLOOD RUSS SINGH [facility] [address] Lab (1st floor, no room number) [place] [address], [facility] [phone] * Extra Blue Top Tube (02/10/2023 6:54 PM CDT) Hold Specimen JI 02/10/2023 8:04 PM CDT [facility] LABORATORY Blood STRUCTURE OF RIGHT UPPER LIMB / Unknown Venipuncture / Unknown 02/10/2023 6:54 PM CDT 02/10/2023 7:01 PM CDT Philipp Schneider DO LAB - BLOOD RUSS SINGH Performing Organization Address [facility]/ZIP Co de Phone Number [facility] [address] Lab (1st floor, no room number) [place] [address], [facility] [phone] * (ABNORMAL) CBC with platelets and differential [...] NRBCs 0.0 10e3/uL 02/10/2023 7:04 PM CDT [facility] LABORATORY Blood STRUCTURE OF RIGHT UPPER LIMB / Unknown Venipuncture / Unknown 02/10/2023 6:54 PM CDT 02/10/2023 7:01 PM CDT Philipp Schneider DO LAB - BLOOD KAROLINAE SAMANTHA [facility] [address] [facility] Lab (1st floor, no room number) [place] [address], [facility] [phone] * (ABNORMAL) Comprehensive metabolic panel (02/10/2023 6:54 PM CDT) Sodium 140 136 - 145 mmol/L 02/10/2023 7:19 PM CDT [facility] Potassium 4.7 3.4 - 5.3 mmol/L 02/10/2023 7:19 PM CDT [facility] Chloride 102 98 - 107 mmol/L 02/10/2023 7:19 PM CDT [facility] Carbon Dioxide (CO2) 24 22 - 29 mmol/L 02/10/2023 7:19 PM CDT [facility] Anion Gap 14 7 - 15 mmol/L 02/10/2023 7:19 PM CDT [facility] Urea Nitrogen 14.7 8.0 - 23.0 mg/dL 02/10/2023 7:19 PM CDT [facility] Creatinine 1.26(H) 0.51 - 0.95 mg/dL 02/10/2023 7:19 PM CDT [facility] Calcium 9.1 8.8 - 10.2 mg/dL 02/10/2023 7:19 PM CDT [facility] Glucose 131(H) 70 - 99 mg/dL 02/10/2023 7:19 PM CDT [facility] Alkaline Phosphatase 81 35 - 104 U/L 02/10/2023 7:19 PM CDT [facility] AST 13 10 - 35 U/L 02/10/2023 7:19 PM CDT [facility] ALT 12 10 - 35 U/L 02/10/2023 7:19 PM CDT [facility] Protein Total 6.8 6.4 - 8.3 g/dL 02/10/2023 7:19 PM CDT [facility] Albumin 4.2 3.5 - 5.2 g/dL 02/10/2023 7:19 PM CDT [facility] Bilirubin Total 0.3 <=1.2 mg/dL 02/10/2023 7:19 PM CDT [facility] GFR Estimate 48(L) >60 mL/min/1.7 3m2 02/10/2023 7:19 PM CDT [facility] Comment:eGFR calculated usin 2020 CKD-EPI equation. Blood STRUCTURE OF RIGHT UPPER LIMB / Unknown Venipuncture / Unknown 02/10/2023 6:54 PM CDT 02/10/2023 7:01 PM CDT Philippbeverly Quinn Schneider DO LAB - BLOOD KAROLINAE SAMANTHA [facility] [address] [facility] (1st floor, no room number) [place] [address], [facility] [phone] documented in this encounter Visit Diagnoses Diagnosis [...] PRN, heartburn, Starting on 02/22/23 at 0827 $Given 02/22/2023 2:43 PM CDT [...] water have patient drink, Call XR @ *[phone] when done drinking. Keep patient NPO until [...] First dose on Fri02/15/23 at 2200 $Given 02/15/2023 10:01 PM CDT [...] 500 mL 500 mL, Intravenous, ONCE, On Fri02/20/23 at 1200, For 1 dose $Given 02/20/2023 [...] 6 HOURS PRN, nausea, vomiting, Starting on 6/10/23 at 0721, With dry hands, peel back [...] EVERY 6 HOURS PRN, cramping, Starting on Fri02/22/23 at 0827 $Given 02/22/2023 9:55 AM CDT [...] 6 HOURS PRN, moderate pain, Starting on Fri02/15/23 at 0957 $Given 02/18/2023 3:26 AM CDT [...] loose stools. 1235 ($Given - Provider: Cori Hassan, RN) esomeprazole (nexIUM) CR capsule 40 mg - Patient Supplied 40 mg, Oral, 2 TIMES DAILY BEFORE MEALS, First dose on Fri02/22/23 at 1800 2024 ($Given - Provider: Guerda Sharma RN - Comment: pt request to take before bed tonight) 0820 ($Given - Provider: Cori Hassan, RN) famotidine (PEPCID) tablet 20 mg (CANCELED) 20 mg, Oral, AT BEDTIME, First dose (after last modification) on Fri02/16/23 at 2200, Dose adjusted per renal dosing policy. Estimated CrCl = 30-50 mL/min. 2248 ($Given - Provider: Guerda Sharma, IFRAH) methylPREDNISolone sodium succinate (solu-MEDROL) injection 20 mg [...] Odalys Rodas RN)0749 ($Given - Provider: Cori Hassan, IFRAH) montelukast (SINGULAIR) tablet 10 mg 10 mg, Oral, AT BEDTIME, First dose on Fri02/15/23 at 2200 2249 ($Given - Provider: Guerda Sharma, IFRAH) 2148 ($Given - Provider: Guerda Sharma, IFRAH) nortriptyline (PAMELOR) capsule 25 mg 25 mg, Oral, AT BEDTIME, First dose on Fri02/11/23 at 2200 2248 ($Given - Provider: Guerda Sharma, RN) 2148 ($Given - Provider: Guerda Sharma RN) pantoprazole (PROTONIX) EC tablet 40 mg [...] Hassan RN) 0820 ($Given - Provider: Cori Hassan RN) predniSONE (DELTASONE) tablet 40 mg 40 mg, Oral, DAILY, First dose on Fri02/21/23 at 1600, Start steroid taper 1646 ($Given - Provider: Chong Finn, IFRAH) 0836 ($Given - Provider: Cori Hassan RN) 0820 ($Given - Provider: Cori Hassan RN) sodium chloride (PF) 0.9% PF flush [...] IV Infusing) 0000 (Not Given - Provider: Guerda Sharma RN - Reason: Loss of IV [...] Odalys Rodas RN)2249 ($Given - Provider: Guerda Sharma RN) 0836 ($Given - Provider: Cori Hassan RN) acetaminophen (TYLENOL) tablet 975 mg(Linked Group 1) [...] PRN, heartburn, Starting on Fri02/22/23 at 0827 1443 ($Given - Provider: Cori [...] Oral, AT BEDTIME PRN, sleep, Starting on Fri02/10/23 at 2359, Do not give unless at [...] not required. 0748 ($Given - Provider: Cori Hassan RN)1404 ($Given - Provider: Cori Hassan RN)1940 ($Given - Provider: Cori Hassan RN) 0621 ($Given - Provider: Guerda Sharma, RN)1443 ($Given - Provider: Cori Hassan RN) 0843 ($Given - Provider: Cori Hassan RN) prochlorperazine (COMPAZINE) injection 10 mg(Linked Group [...] Finn RN) 1146 ($Given - Provider: Cori Hassan RN)1619 ($Given - Provider: Ewa Booth RN) 0418 ($Given - Provider: Guerda Sharma, IFRAH) simethicone (MYLICON) chewable tablet 80 mg 80 mg, Oral, EVERY 6 HOURS PRN, cramping, Starting on 02/22/23 at 0827 0955 ($Given - Provider: Cori Hassan RN) sodium chloride (PF) 0.9% PF flush 3 mL 3 mL, Intracatheter, EVERY 1 MIN PRN, line flush, other, to ensure patency or to lock dormant line, Starting on Fri02/10/23 at 2359 traMADol (ULTRAM) tablet 50 mg 50 mg, Oral, EVERY 6 HOURS PRN, moderate pain, Starting on Fri02/15/23 at 0957 Linked Groups Order Group 1: acetaminophen (TYLENOL) tablet 975 mgJump to med 975 mg, Oral, 3 TIMES DAILY PRN, mild pain, Starting on Fri02/22/23 at 0930, Maximum acetaminophen dose from all sources = 75 mg/kg/day not to exceed 4 grams/day. Or acetaminophen (TYLENOL) Suppository 650 mgJump to med 650 mg, Rectal, EVERY 4 HOURS PRN, mild pain, Starting on Fri02/22/23 at 0930, Maximum acetaminophen dose from all [...] documented as of this encounter Care Teams Maintenance Supervisor Electrical Relationship Specialty Start Date End Date No Ref-Primary, Physician PCP - General 02/10/23 05/14/23 Car Su DO [address] [place] [address] Assigned Pain Medication Provider 02/22/23 03/21/23 documented as of this encounter
--- OUTSIDE RECORDS SUMMARY | 2023-10-20 07:48 | XMS_ITS ---
Author Name Unknown Organization [facility] Address [address] [place] [id number] Care Team Providers Care Trim Setter Name Role Phone Andrew Israel PA-C Primary Care Provider [phone] Transitional Care Management Status:Closed (Closed) Start date:03/27/2023 Enrollment date:03/27/2023 End date:04/10/2023 Close reason:Goals met Continued Care and Services Coordination
--- NOTE | 2023-10-20 09:00 | CT_ITS ---
Final Report Patient: BEVERLEY GONZALES Facility:?[facility] Patient ID:?[id number] Site Patient ID:?[id number]. Site :?[id number] Study:?CT Chest LOW DOSE-10/20/2023 5:52:00 PM Ordering Physician:CADY Final Report: INDICATION: Lung cancer screening. History of smoking. High risk patient with greater than 45 pack-year smoking history. TECHNIQUE: Low-dose lung cancer screening non-contrast CT chest. Dose reduction techniques were used. COMPARISON: 09/23/2012 FINDINGS: NODULES: Stable tiny nodular densities in both lung apices associated with pleural-parenchymal scarring. LUNGS AND PLEURA: No infiltrate. Emphysema. MEDIASTINUM: No adenopathy. CORONARY ARTERY CALCIFICATION: None. LIMITED UPPER ABDOMEN: Gallbladder absent. MUSCULOSKELETAL: Normal. IMPRESSION: 1. Negative for lung cancer screening purposes. LUNG-RADS CATEGORY: 1: Negative. RADIOLOGIST RECOMMENDATION: Continue annual screening with low-dose CT chest in 12 months. Please note that all CT scans at this facility use dose modulation, iterative reconstruction, and/or weight-based dosing when appropriate to reduce radiation dose to as low as reasonably achievable. Dictated by Alex Talbot MD @ 10/24/2023 2:52:54 PM (Electronic Signature)
== END 2023-10-20 07:41 | disposition home or self-care (01) ==
LOC: MAMMO 07:41
PROVIDERS: PCP Physician Assistant Medical; Visit Provider Physician Assistant Medical
DX: Z87.891 Personal history of nicotine dependence (principal); Z12.2 Encounter for screening for malignant neoplasm of respiratory organs; Z12.31 Encounter for screening mammogram for malignant neoplasm of breast
CPT/HCPCS: 71271; 77063; 77067

== ENCOUNTER 2023-11-14 12:41 | Outpatient (REF) | payer BC, SELFPAY ==
[2023-11-14 14:02] LABS: C.Difficile Negative (Negative); CDIFFEPI 027 PRESUMPTIVE NEGATIVE (Negative)
[2023-11-18 19:07] LABS: Calprotectin, Fecal 54 ug/g (<=49)
== END 2023-11-14 12:42 | disposition home or self-care (01) ==
LOC: NPINS 12:41
PROVIDERS: PCP Physician Assistant Medical; Visit Provider Internal Medicine Gastroenterology
DX: K50.00 Crohn's disease of small intestine without complications (principal)
CPT/HCPCS: 83993; 87493

== ENCOUNTER 2024-01-20 21:09 | Outpatient (REF) | payer BC, SELFPAY ==
--- OUTSIDE RECORDS SUMMARY | 2024-01-20 21:12 | XMS_ITS | Clinical Summary ---
Author Name Unknown Organization [facility] Address [address] [place] [id number] Care Team Providers Care Revising Clerk Name Role Phone Andrew Israel PA-C Primary Care Provider [phone] Allergies Active Allergy Reactions Criticality Noted Date Comments Acetaminophen Nausea and Vomiting 01/28/2023 Aspirin Nausea and Vomiting Medium 02/11/2023 Codeine Nausea and Vomiting 02/11/2023 Meperidine Nausea and Vomiting Medium 02/10/2023 N/V Latex Hives High 02/11/2023 Mold 02/11/2023 Oxycodone Anaphylaxis,Hives,Sw e lling High 02/10/2023 Throat swelling, per pt Pt tolerates [place]/Vicodin (06/22/2023) Penicillin G Anaphylaxis High 02/11/2023 Oxycodone-Acetaminophen Nausea and Vomiting Medium 01/2023 N/V Sumatriptan Palpitations High 02/11/2023 Medications Medication Sig Dispensed Refills Start Date End Date Status montelukast (SINGULAIR) 10 MG tablet Take 10 mg by mouth At Bedtime Active traZODone (DESYREL) 100 MG tablet Take 200 mg by mouth At Bedtime Active esomeprazole (NEXIUM) [address] capsule Take 40 mg by mouth 2 times daily (before meals) Take 30-60 minutes before eating. Active nortriptyline (PAMELOR) 25 MG capsule Take 25 mg by mouth At Bedtime Active famotidine (PEPCID) 40 MG tablet Take 40 mg by mouth At Bedtime Active albuterol (PROAIR HFA/PROVENTIL HFA/VENTOLIN HFA) 108 (90 Base) MCG/ACT inhaler Inhale 2 puffs into the lungs every 6 hours as needed for shortness of breath, wheezing or cough Active bisacodyl (DULCOLAX) 10 MG suppositoryIndication s:RLQ abdominal pain,Partial small bowel obstruction (H) Place 1 suppository (10 mg) rectally 2 times daily as needed for constipation 10 suppository 1 3 Active methocarbamol (ROBAXIN) 500 MG tabletIndications:RLQ abdominal pain,Partial small bowel obstruction (H),IBD (inflammatory bowel disease),Nausea Take 1 tablet (500 mg) by mouth 4 times daily as needed for muscle spasms 15 tablet 1 3 Active Additional Information Patient taking differently: 1,000 mgOral2 TIMES DAILY, Reported on 11/29/2023 cyanocobalamin (CYANOCOBALAMIN) 1000 MCG/ML injection Inject 1,000 mcg as directed every 30 days Active acetaminophen (TYLENOL) 500 MG tabletIndications:RLQ abdominal pain Take 1-2 tablets (500-1,000 mg) by mouth every 6 hours as needed for mild pain 3 Active medical cannabis (Patient's own supply) Take 1 Dose by mouth See Admin Instructions (The purpose of this order is to document that the patient reports taking medical cannabis. This is not a prescription, and is not used to certify that the patient has a qualifying medical condition.) 25 MG EDIBLE Active inFLIXimab (REMICADE IV)Indications:Gastro enterologist has changed the frequency to every 6 weeks Inject 10 mg/kg into the vein once every eight weeks Active dicyclomine (BENTYL) 20 MG tabletIndications:Int ractable abdominal pain Take 1 tablet (20 mg) by mouth 4 times daily (before meals and nightly) 30 tablet 4 Active simethicone (MYLICON) 80 MG chewable tabletIndications:Int ractable abdominal pain Take 1 tablet (80 mg) by mouth every 6 hours as needed for cramping 30 tablet 4 Active vitamin C (ASCORBIC ACID) 1000 MG TABS Take 1,000 mg by mouth daily Active Vitamin D3 (CHOLECALCIFEROL) 25 mcg (1000 units) tablet Take 25 mcg by mouth daily Active predniSONE (DELTASONE) 5 MG tablet Take by mouth daily Starting 11/26/23 80 mg dailly for 1 week, then 70 mg dailly for 1 week 60 mg dailly for 1 week 50 mg dailly for 1 week 40 mg dailly for 1 week 30 mg dailly for 1 week 20 mg dailly for 1 week 10 mg dailly for 1 week Active ondansetron (ZOFRAN ODT) 4 MG ODT tabIndications:Crohn' s disease with complication, unspecified gastrointestinal tract location (H) Take 1 tablet (4 mg) by mouth every 8 hours as needed for nausea 20 tablet Active hydrOXYzine HCl (ATARAX) 25 MG tabletIndications:Telex Operator hn's disease with complication, unspecified gastrointestinal tract location (H) Take 1 tablet (25 mg) by mouth every 6 hours as needed for other (adjuvant pain) 20 tablet Active Active Problems Problem Noted Date Diagnosed Date Generalized abdominal pain 11/29/2023 Exacerbation of Crohn's disease with complicatio n 11/29/2023 Crohn disease 11/29/2023 History of Crohn's disease 09/22/2023 Intractable lower abdominal pain 09/22/2023 Diarrhea, unspecified type 09/22/2023 Acute colitis 06/16/2023 Dizziness 03/31/2023 Abnormal stools 03/31/2023 History of colon surgery 03/31/2023 Abdominal pain, unspecified abdominal location 0 03/31/2023 Intractable abdominal pain 03/19/2023 Crohn's disease of colon with complication 03/19 RLQ abdominal pain 02/10/2023 Encounters Date Type Department Care Team Description 11/29/2023 2:06 PM CDT - 12/09/2023 5:06 PM CDT Hospital Encounter [facility] [address] [place] [phone] Jesus Will MD Hess, Toy, MD Galindez, Al Gilbert, MD Crohn's disease with complication, unspecified gastrointestinal tract location (H) (Primary Dx); Exacerbation of Crohn's disease with complication (H); Generalized abdominal pain; IBD (inflammatory bowel disease); Nausea Discharge Disposition: Home or Self Care 11/29/2023 Travel from Last 3 Months Immunizations Name [...] Sign Reading Time Taken Comments Blood Pressure 119/86 12/09/2023 8:18 AM CDT Pulse 72 12/09/2023 8:18 AM CDT Temperature 36.3 ??C (97.4 ??F) 12/09/2023 8:18 AM CD T Respiratory Rate 16 12/09/2023 8:18 AM CDT Oxygen Saturation 94% 12/09/2023 8:18 AM CDT Inhaled Oxygen Concentration - - Weight 67.1 kg (148 lb) 12/06/2023 1:48 PM CDT Height 160 cm (5' 3) 11/30/2023 3:18 AM CDT Body Mass Index 26.22 11/30/2023 3:18 AM CDT Plan of Treatment Health Maintenance [...] IMMUNIZATION (2 of 2) 09/29/2023 08/04/2023 GLUCOSE 12/08/2026 12/09/2023, 11/08, 12/03/2023, Additional history exists DTAP/TDAP/TD IMMUNIZATION (3 - Td or Tdap) 01/03/2032 01/02/2022, 05/28/2011, 05/17/2004 COLONOSCOPY 06/20/2033 06/20/2023, 06/08, 06/20/2023, Additional history exists COLORECTAL CANCER SCREENING 06/20/2033 COVID-19 Vaccine Completed [...] Associated Diagnosis Comments BASIC METABOLIC PANEL Routine 12/09/2023 7:49 AM CDT CRP INFLAMMATION Routine 12/09/2023 7:49 AM CDT MAGNESIUM Routine 12/08/2023 6:57 AM CDT POTASSIUM Routine 12/08/2023 6:57 AM CDT CRP INFLAMMATION Routine 12/08/2023 6:57 AM CDT MAGNESIUM Add-On 12/07/2023 6:50 AM CDT BASIC METABOLIC PANEL Routine 12/07/2023 6:50 AM CDT CBC WITH PLATELETS Routine 12/07/2023 6: 50 AM CDT CRP INFLAMMATION Routine 12/07/2023 6:50 AM CDT MAGNESIUM Routine 12/06/2023 6:02 AM CDT POTASSIUM Routine 12/06/2023 6:02 AM CDT CRP INFLAMMATION Routine 12/06/2023 6:02 AM CDT URINE CULTURE Routine 12/06/2023 1:40 AM CDT ROUTINE UA WITH MICROSCOPIC REFLEX TO CULTURE Routine 12/06/2023 1:40 AM CDT MAGNESIUM Routine 12/05/2023 7:43 AM CDT POTASSIUM Routine 12/05/2023 7:43 AM CDT CRP INFLAMMATION Routine 12/05/2023 7:43 AM CDT MAGNESIUM Routine 12/04/2023 6:53 AM CDT POTASSIUM Routine 12/04/2023 6:53 AM CDT CRP INFLAMMATION Routine 12/04/2023 6:53 AM CDT MR ENTEROGRAPHY W/O AND W CONTRAST Routine 12/03/2023 9:11 AM CDT CBC WITH PLATELETS & DIFFERENTIAL Routine 12/03/2023 7:20 AM CDT CBC WITH PLATELETS AND DIFFERENTIAL Routine 12/03/2023 7:20 AM CDT BASIC METABOLIC PANEL Routine 12/03/2023 7:20 AM CDT MAGNESIUM Routine 12/03/2023 7:20 AM CDT CRP INFLAMMATION Routine 12/03/2023 7:20 AM CDT MAGNESIUM Routine 12/02/2023 7:45 AM CDT POTASSIUM Routine 12/02/2023 7:45 AM CDT CRP INFLAMMATION Routine 12/02/2023 7:45 AM CDT MAGNESIUM Routine 12/01/2023 7:01 AM CDT BASIC METABOLIC PANEL Routine 12/01/2023 7:01 AM CDT CBC WITH PLATELETS Routine 12/01/2023 7: 01 AM CDT CRP INFLAMMATION Routine 12/01/2023 7:01 AM CDT POTASSIUM Timed 11/30/2023 1:48 PM CDT MAGNESIUM Routine 11/30/2023 7:06 AM CDT CBC WITH PLATELETS Routine 11/30/2023 7: 06 AM CDT BASIC METABOLIC PANEL Routine 11/30/2023 7:06 AM CDT CMV ANTIBODY IGG STAT 11/29/2023 7:32 PM CDT CMV ANTIBODY IGM STAT 11/29/2023 7:[address] ABDOMEN PELVIS W CONTRAST STAT 11/29/2023 4:13 PM CDT CBC WITH PLATELETS & DIFFERENTIAL STAT 11/29/2023 3:28 PM CDT CBC WITH PLATELETS AND DIFFERENTIAL STAT 11/29/2023 3:28 PM CDT CRP INFLAMMATION STAT 11/29/2023 3:28 PM CDT ERYTHROCYTE SEDIMENTATION RATE AUTO STAT 11/29/2023 3:28 PM CDT COMPREHENSIVE METABOLIC PANEL STAT 11/29/2023 3:28 PM CDT ROUTINE UA WITH MICROSCOPIC REFLEX TO CULTURE STAT 11/29/2023 3:26 PM CDT COLONOSCOPY Routine 06/20/2023 8:38 AM CDT from Last 3 Months or Most Recently Relevant to Health Maintenance Results * CRP inflammation (12/09/2023 7:49 AM CDT) Only the most recent of10 resultswithin the time period is included. CRP Inflammation 3.72 <5.00 mg/L 12/09/19 8:19 AM CDT LABORATORY Blood STRUCTURE OF RIGHT HAND / Unknown Venipuncture / Unknown 12/09/2023 7:49 AM CDT 12/09/2023 7:57 AM CDT Kai Su DO LAB - BLOOD ORDER NATALIIA LABORAT[facility] [address] [facility] Lab (1st floor, no room number) [place] [address] * (ABNORMAL) Basic metabolic panel (12/09/2023 7:49 AM CDT) Only the most recent of5 resultswithin the time period is included. Pathologist [facility] Sodium 137 135 - 145 mmol/L 12/09/2023 8:19 AM CDT LABORATORY Comment:Reference intervals for this test were updated on 06/03/2023 to more accurately reflect our healthy population. There may be differences in the flagging of prior results with similar values performed with this method. Interpretation of those prior results can be made in the context of the updated reference intervals. Potassium 4.6 3.4 - 5.3 mmol/L 12/09/2023 8:19 AM CDT LABORATORY Chloride 101 98 - 107 mmol/L 12/09/2023 8:19 AM CDT LABORATORY Carbon Dioxide (CO2) 29 22 - 29 mmol/L 12/09/2023 8:19 AM CDT LABORATORY Anion Gap 7 7 - 15 mmol/L 12/09/2023 8:19 AM CDT LABORATORY Urea Nitrogen 15.8 8.0 - 23.0 mg/dL 12/09/2023 8:19 AM CDT LABORATORY Creatinine 1.02(H) 0.51 - 0.95 mg/dL 12/09/2023 8:19 AM CDT [facility] GFR Estimate 61 >60 mL/min/1. 73m2 12/09/2023 8:19 AM CDT [facility] Calcium 8.7(L) 8.8 - 10.2 mg/dL 12/09/2023 8:19 AM CDT [facility] Glucose 126(H) 70 - 99 mg/dL 12/09/2023 8:19 AM CDT [facility] Blood STRUCTURE OF RIGHT HAND / Unknown Venipuncture / Unknown 12/09/2023 7:49 AM CDT 12/09/2023 7:57 AM CDT Cathy Childers DO LAB - BLOOD ORDERABL ES LABORATORY [facility] [address] Lab (1st floor, no room number) [address] [place] [address] * Potassium (12/08/2023 6:57 AM CDT) Only the most recent of6 resultswithin the time period is included. Potassium 4.7 3.4 - 5.3 mmol/L 12/08/2023 7:28 AM CDT [facility] LABORATORY Blood STRUCTURE OF RIGHT HAND / Unknown Venipuncture / Unknown 12/08/2023 6:57 AM CDT 12/08/2023 7:08 AM CDT Eusebio Zhang MD LAB - BLOOD ORDERABL ES LABORATORY [facility] [address] Lab (1st floor, no room number) [place] [phone] [place] [address] * (ABNORMAL) Magnesium (12/08/2023 6:57 AM CDT) Only the most recent of9 resultswithin the time period is included. Magnesium 2.4(H) 1.7 - 2.3 mg/dL 12/08/2023 7:28 AM CDT [facility] LABORATORY Blood STRUCTURE OF RIGHT HAND / Unknown Venipuncture / Unknown 12/08/2023 6:57 AM CDT 12/08/2023 7:08 AM CDT Eusebio Zhang MD LAB - BLOOD ORDERABL ES LABORATORY [facility] [address] Lab (1st floor, no room number) [place] [address] * (ABNORMAL) CBC with platelets (12/07/2023 6:50 AM CDT) Only the most recent of3 resultswithin the time period is included. WBC Count 13.4(H) 4.0 - 11.0 10e3/uL 12/07/2023 7:08 AM CDT [facility] RBC Count 4.46 3.80 - 5.20 10e6/uL 12/07/2023 7:08 AM CDT [facility] Hemoglobin 13.3 11.7 - 15.7 g/dL 12/07/2023 7:08 AM CDT [facility] Hematocrit 40.3 35.0 - 47.0 % 12/07/2023 7:08 AM CDT [facility] MCV 90 78 - 100 fL 12/07/2023 7:08 AM CDT [facility] MCH 29.8 26.5 - 33.0 pg 12/07/2023 7:08 AM CDT [facility] MCHC 33.0 31.5 - 36.5 g/dL 12/07/2023 7:08 AM CDT [facility] RDW 12.4 10.0 - 15.0 % 12/07/2023 7:08 AM CDT [facility] Platelet Count 253 150 - 450 10e3/uL 12/07/2023 7:08 AM CDT [facility] Blood STRUCTURE OF LEFT UPPER LIMB / Unknown Venipuncture / Unknown 12/07/2023 6:50 AM CDT 12/07/2023 7:05 AM CDT Cathy Childers DO LAB - BLOOD ORDERABL ES LABORATORY [facility] [address] Lab (1st floor, no room number) [place] [address], [facility] * (ABNORMAL) UA with Microscopic reflex to Culture (12/06/2023 1:40 AM CDT) Only the most recent of2 resultswithin the time period is included. Color Urine Straw Colorless, Straw, Light Yellow, Yellow 12/06/2023 2:45 AM CDT LABORATORY Appearance Urine Clear Clear 12/06/19 24 2:45 AM CDT LABORATORY Glucose Urine Negative Negative mg/dL 12/06/2023 2:45 AM CDT LABORATORY Bilirubin Urine Negative Negative 2:45 AM CDT LABORATORY Ketones Urine Negative Negative mg/dL 12/06/2023 2:45 AM CDT LABORATORY Specific [place] Urine 1.005 1.003 - 1.035 12/06/2023 2:45 AM CDT LABORATORY Blood Urine Negative Negative 12/06/2023 2:45 AM CDT LABORATORY pH Urine 6.0 5.0 - 7.0 12/06/2023 2:45 AM CDT LABORATORY Protein Albumin Urine Negative Negative mg/dL 12/06/2023 2:45 AM CDT LABORATORY Urobilinogen Urine Normal Normal, 2.0 mg/dL 12/06/2023 2:45 AM CDT LABORATORY Nitrite Urine Positive(A) Negative 12/06/2023 2:45 AM CDT LABORATORY Leukocyte Esterase Urine Negative Negative 12/06/2023 2:45 AM CDT LABORATORY Bacteria Urine Few(A) None Seen /HPF 12/06/2023 2:45 AM CDT LABORATORY RBC Urine <1 <=2 /HPF 12/06/2023 2:45 AM CDT LABORATORY WBC Urine 1 <=5 /HPF 12/06/2023 2:45 AM CDT LABORATORY Urine URINE SPECIMEN OBTAINED BY CLEAN CATCH PROCEDURE / Unknown Non-blood Collection / Unknown 12/06/2023 1:40 AM CDT 12/06/2023 1:50 AM CDT Narrative LABORATORY - 12/06/2023 2:45 AM CDT Urine Culture ordered based on laboratory criteria Al Berny Gallardo MD LAB - URINE ORDER NATALIIA LABORATORY [facility] [address] [facility] Lab (1st floor, no room number) [place] [address] * (ABNORMAL) Urine Culture (12/06/2023 1:40 AM CDT) Culture >100,000 CFU/mL Escherichia coli(A) 12/07/2023 9:23 PM CDT [facility] IDD LABORATORY Urine URINE SPECIMEN OBTAINED BY CLEAN CATCH PROCEDURE / Unknown Non-blood Collection / Unknown 12/06/2023 1:40 AM CDT 12/06/2023 2:45 AM CDT Narrative Organism Antibiotic Method Susceptibility Escherichia coli Ampicillin MAMIE <=2 ug/mL: Susceptible Escherichia coli Ampicillin/ Sulbactam MAMIE <=2 ug/mL: Susceptible Escherichia coli Piperacillin/Tazobactam MAMIE <=4 ug/mL: Susceptible Escherichia coli Cefazolin MAMIE <=4 ug/mL: Susceptible Comment:Cefazolin [place] C breakpoints are for the treatment of [...] <=0.12 ug/mL: Susceptible Escherichia coli Nitrofurantoin MAMIE <=16 ug/mL: Susceptible Escherichia coli Trimethoprim/Sulfamethoxazole MAMIE <=1/19 ug/mL: Susceptible Al Berny Gallardo MD LAB - MICRO GENER AL ORDERABLES [facility] LABORATORY [facility]. Diseases Di[facility]. Lab [address] [facility] [place] [address] * MR Enterography w/o & wContrast (12/03/2023 9:11 AM CDT) Anatomical Region Laterality Modality Abdomen/Pelvis, SUBRAD MR BODY, UMP MR BODY, RAD MR Magnetic Resonance Impressions 12/03/2023 12:04 PM CDT IMPRESSION: 1. ??There is a short segment of bowel wall thickening and enhancement in the distal ileum, new since the previous exam and suspicious for active Crohn's inflammation. 2. ??Trace amount of free fluid in the right lower quadrant and several mildly prominent mesenteric lymph nodes in the right lower quadrant are nonspecific, but likely also related to distal small bowel inflammation. 3. ??Moderate to large amount of stool throughout the colon suggests constipation. 4. ??Multiple mildly prominent loops of mid and distal small bowel with no definite transition point suggests ileus, although an early small bowel obstruction is difficult to exclude from this appearance, and close follow-up is recommended. JOAQUÍN LUNA MD SYSTEM ID: ??[id number] Narrative 12/03/2023 12:04 PM CDT MR ENTEROGRAPHY WITHOUT AND WITH CONTRAST 12/03/2023 9:11 AM INDICATION: Worsening abdominal pain. History of Crohn's disease. COMPARISON: MR enterography 09/23/2023. TECHNIQUE: Routine enterography protocol including imaging of abdomen and pelvis with axial T1 in/out phase, axial T2, coronal T2. Post contrast abdomen and pelvis axial and coronal thin-section T1 with fat sat. 1 mg Glucagon. Oral VoLumen. CONTRAST: 7 mL Gadavist FINDINGS: ENTEROGRAPHY: Postoperative changes of ileocecal resection. There is a short segment of mild bowel wall thickening in the distal ileum measuring approximately 3.5 cm, new since the previous exam (series 12 image 23). There are numerous loops of mildly prominent fluid and stool-filled loops of mid and distal small bowel noted. Findings suggest ileus, although a small bowel obstruction is difficult to exclude entirely from this appearance. No evidence for abscess or fistula. Moderate to large amount of stool throughout the colon suggests constipation. The appendix is not seen, and is surgically absent by history. Stomach is grossly unremarkable. ADDITIONAL FINDINGS: Cholecystectomy. No intrahepatic biliary dilatation. The common duct is mildly prominent at 0.9 cm, possibly related to the patient's age and postcholecystectomy state. Right nephrectomy. No lymphadenopathy. There are multiple mildly prominent mesenteric lymph nodes in the right lower quadrant, new since the previous exam, and likely reactive. The visualized portions of the liver and spleen are unremarkable. The pancreas, adrenal glands, and left kidney are unremarkable. No hydronephrosis. There is a trace amount of nonspecific free fluid in the right lower quadrant. Procedure Note Joaquín Luna MD - 12/03/2023 MR ENTEROGRAPHY WITHOUT AND WITH CONTRAST 12/03/2023 9:11 AM INDICATION: Worsening abdominal pain. History of Crohn's disease. COMPARISON: MR enterography 09/23/2023. TECHNIQUE: Routine enterography protocol including imaging of abdomen and pelvis with axial T1 in/out phase, axial T2, coronal T2. Post contrast abdomen and pelvis axial and coronal thin-section T1 with fat sat. 1 mg Glucagon. Oral VoLumen. CONTRAST: 7 mL Gadavist FINDINGS: ENTEROGRAPHY: Postoperative changes of ileocecal resection. There is a short segment of mild bowel wall thickening in the distal ileum measuring approximately 3.5 cm, new since the previous exam (series 12 image 23). There are numerous loops of mildly prominent fluid and stool-filled loops of mid and distal small bowel noted. Findings suggest ileus, although a small bowel obstruction is difficult to exclude entirely from this appearance. No evidence for abscess or fistula. Moderate to large amount of stool throughout the colon suggests constipation. The appendix is not seen, and is surgically absent by history. Stomach is grossly unremarkable. ADDITIONAL FINDINGS: Cholecystectomy. No intrahepatic biliary dilatation. The common duct is mildly prominent at 0.9 cm, possibly related to the patient's age and postcholecystectomy state. Right nephrectomy. No lymphadenopathy. There are multiple mildly prominent mesenteric lymph nodes in the right lower quadrant, new since the previous exam, and likely reactive. The visualized portions of the liver and spleen are unremarkable. The pancreas, adrenal glands, and left kidney are unremarkable. No hydronephrosis. There is a trace amount of nonspecific free fluid in the right lower quadrant. IMPRESSION: 1. There is a short segment of bowel wall thickening and enhancement in the distal ileum, new since the previous exam and suspicious for active Crohn's inflammation. 2. Trace amount of free fluid in the right lower quadrant and several mildly prominent mesenteric lymph nodes in the right lower quadrant are nonspecific, but likely also related to distal small bowel inflammation. 3. Moderate to large amount of stool throughout the colon suggests constipation. 4. Multiple mildly prominent loops of mid and distal small bowel with no definite transition point suggests ileus, although an early small bowel obstruction is difficult to exclude from this appearance, and close follow-up is recommended. JOAQUÍN LUNA MD SYSTEM ID: [id number] Hortensia Dominguez PA-C IMG MRI ORD ERABLES * (ABNORMAL) CBC with platelets and differential (12/03/2023 7:20 AM CDT) Only the most recent of2 resultswithin the time period is included. WBC Count 13.6(H) 4.0 - 11.0 10e3/uL 12/03/2023 7:44 AM CDT [facility] LAB[facility] RBC Count 4.50 3.80 - 5.20 10e6/uL 12/03/2023 7:44 AM CDT [facility] Hemoglobin 13.5 11.7 - 15.7 g/dL 12/03/2023 7:44 AM CDT [facility] Hematocrit 40.2 35.0 - 47.0 % 12/03/2023 7:44 AM CDT [facility] MCV 89 78 - 100 fL 12/03/2023 7:44 AM CDT [facility] MCH 30.0 26.5 - 33.0 pg 12/03/2023 7:44 AM CDT [facility] MCHC 33.6 31.5 - 36.5 g/dL 12/03/2023 7:44 AM CDT [facility] RDW 12.4 10.0 - 15.0 % 12/03/2023 7:44 AM CDT [facility] Platelet Count 241 150 - 450 10e3/uL 12/03/2023 7:44 AM CDT [facility] % Neutrophils 85 % 12/03/2023 7:44 AM CDT [facility] % Lymphocytes 8 % 12/03/2023 7:44 AM CDT [facility] % Monocytes 6 % 12/03/2023 7:44 AM CDT [facility] % Eosinophils 0 % 12/03/2023 7:44 AM CDT [facility] % Basophils 0 % 12/03/2023 7:44 AM CDT [facility] % Immature Granulocytes 1 % 12/03/2023 7:44 AM CDT [facility] LAB[facility]ORY NRBCs per 100 WBC 0 <1 /100 024 7:44 AM CDT [facility] LAB[facility] Absolute Neutrophils 11.4(H) 1.6 - 8.3 10e3/uL 12/03/2023 7:44 AM CDT [facility] Absolute Lymphocytes 1.1 0.8 - 5.3 10e3/uL 12/03/2023 7:44 AM CDT [facility] LAB[facility] Absolute Monocytes 0.9 0.0 - 1.3 10e3/uL 12/03/2023 7:44 AM CDT [facility] LAB[facility] Absolute Eosinophils 0.0 0.0 - 0.7 10e3/uL 12/03/2023 7:44 AM CDT [facility] Absolute Basophils 0.0 0.0 - 0.2 10e3/uL 12/03/2023 7:44 AM CDT [facility] Absolute Immature Granulocytes 0.2 <=0.4 10e3/uL 12/03/2023 7:44 AM CDT [facility] LAB[facility] Absolute NRBCs 0.0 10e3/uL 12/03/2023 7:44 AM CDT LABORATORY Blood STRUCTURE OF LEFT UPPER LIMB / Unknown Venipuncture / Unknown 12/03/2023 7:20 AM CDT 12/03/2023 7:41 AM CDT Al Berny Gallardo MD LAB - BLOOD ORDER NATALIIA LABORATORY [facility] [address] [facility] Lab (1st floor, no room number) [place] [address] * CMV antibody IgM (11/29/2023 7:32 PM CDT) CMV Kimmy IgM Instrument Value <8.0 <30.0 AU/mL 12/01/2023 10:27 AM CDT [facility] C[facility]/PROT/END O CMV Antibody IgM Negative Negative 12/01/2023 10:27 AM CDT SPECIALTY CORE/PROT/END O Blood STRUCTURE OF RIGHT UPPER LIMB / Unknown Venipuncture / Unknown 11/29/2023 7:32 PM CDT 11/29/2023 7:37 PM CDT Narrative SPECIALTY CORE/PROT/ENDO - 12/01/2023 10:27 AM CDT Results from any one IgM assay should not be used as a sole determinant of a current or recent infection. Because an IgM test can yield false positive results and low-level IgM antibody may persist for more than 12 months post infection, reliance on a single test result could be misleading. Acute infection is best diagnosed by demonstrating the conversion of IgG from negative to positive. If an acute infection is suspected,consider obtaining a new specimen and submit for both IgG and IgM testing in two or more weeks. Eusebio Zhang MD LAB - BLOOD ORDERABL ES Performing Organization Address [facility] Co de Phone Number SPECIALTY CORE/PROT/ENDO Specialty Core/Prot/Endo [address] [facility], [address] * (ABNORMAL) CMV Antibody IgG (11/29/2023 7:32 PM CDT) [facility] CMV Kimmy IgG Instrument Value 6.80(H) <0.60 U/mL 12/01/2023 10:14 AM CDT SPECIALTY CORE/PROT/EN DO CMV Antibody IgG Positive, suggests recent or past exposure.(A) No detectable antibody. 12/01/2023 10:14 AM CDT SPECIALTY CORE/PROT/EN DO Blood STRUCTURE OF RIGHT UPPER LIMB / Unknown Venipuncture / Unknown 11/29/2023 7:32 PM CDT 11/29/2023 7:37 PM CDT Eusebio Zhang MD LAB - BLOOD ORDERABL ES Performing Organization Address [facility] de Phone Number SPECIALTY CORE/PROT/ENDO Specialty Core/Prot/Endo 500 [facility], Room [address] * CT Abdomen Pelvis w Contrast (11/29/2023 4:13 PM CDT) Anatomical Region Laterality Modality Abdomen/Pelvis, SUBRAD CT TIFFANIE DY, UMP CT ABDOMEN PELVIS, RAD CT Computed Tomography 11/29/2023 4:13 PM CDT Impressions 11/29/2023 5:25 PM CDT IMPRESSION: 1. ??Mild wall thickening and mucosal hyperenhancement of the colon. This is suggestive of a mild infectious colitis. Narrative 11/29/2023 5:25 PM CDT EXAM: CT ABDOMEN PELVIS W CONTRAST LOCATION: [facility] DATE: 11/29/2023 INDICATION: Severe abd pain and diarrhea COMPARISON: CT abdomen pelvis, 09/22/2023 TECHNIQUE: CT scan of the abdomen and pelvis was performed following injection of IV contrast. Multiplanar reformats were obtained. Dose reduction techniques were used. CONTRAST: 78mL Isovue 370 FINDINGS: LOWER CHEST: Normal. HEPATOBILIARY: Cholecystectomy. PANCREAS: Normal. SPLEEN: 5 mm low dense lesion within the spleen is unchanged. This is nonspecific though likely benign. ADRENAL GLANDS: Normal. KIDNEYS/BLADDER: Right nephrectomy. BOWEL: Surgical changes of a right hemicolectomy. There is mild wall thickening and mucosal hyperenhancement throughout the colon. No bowel obstruction. LYMPH NODES: Normal. VASCULATURE: Normal. PELVIC ORGANS: Hysterectomy. MUSCULOSKELETAL: Normal. Procedure Note Blaine Tilley MD - 11/29/2023 EXAM: CT ABDOMEN PELVIS W CONTRAST LOCATION: [facility] DATE: 11/29/2023 INDICATION: Severe abd pain and diarrhea COMPARISON: CT abdomen pelvis, 09/22/2023 TECHNIQUE: CT scan of the abdomen and pelvis was performed followinginjection of IV contrast. Multiplanar reformats were obtained. Dosereduction techniques were used. CONTRAST: 78mL Isovue 370 FINDINGS: LOWER CHEST: Normal. HEPATOBILIARY: Cholecystectomy. PANCREAS: Normal. SPLEEN: 5 mm low dense lesion within the spleen is unchanged. This isnonspecific though likely benign. ADRENAL GLANDS: Normal. KIDNEYS/BLADDER: Right nephrectomy. BOWEL: Surgical changes of a right hemicolectomy. There is mild wallthickening and mucosal hyperenhancement throughout the colon. No bowelobstruction. LYMPH NODES: Normal. VASCULATURE: Normal. PELVIC ORGANS: Hysterectomy. MUSCULOSKELETAL: Normal. IMPRESSION: 1. Mild wall thickening and mucosal hyperenhancement of the colon. Thisis suggestive of a mild infectious colitis. Jesus Will MD IMG CT ORDERABLE S * Erythrocyte sedimentation rate auto (11/29/2023 3:28 PM CDT) Erythrocyte Sedimentation Rate 3 0 - 30 mm/hr 11/29/2023 3:57 PM CDT [facility] Blood BLOOD SPECIMEN / Unknown Venipuncture / Unknown 11/29/2023 3:28 PM CDT 11/29/2023 3:42 PM CDT Jesus Will MD LAB - BLOOD [facility] Acute Care Lab [address] Lab (1st floor, no room number) [place] [address], [facility] * (ABNORMAL) Comprehensive metabolic panel (11/29/2023 3:28 PM CDT) [facility] Sodium 138 135 - 145 mmol/L 11/29/2023 4:03 PM CDT [facility] Comment:Reference intervals for this test were updated on 06/03/2023 to more accurately reflect our healthy population. There may be differences in the flagging of prior results with similar values performed with this method. Interpretation of those prior results can be made in the context of the updated reference intervals. Potassium 4.4 3.4 - 5.3 mmol/L 11/29/2023 4:03 PM CDT LABORATORY Carbon Dioxide (CO2) 24 22 - 29 mmol/L 11/29/2023 4:03 PM CDT [facility] Anion Gap 12 7 - 15 mmol/L 11/29/2023 4:03 PM CDT [facility] Urea Nitrogen 13.0 8.0 - 23.0 mg/dL 11/29/2023 4:03 PM CDT LABORATORY Creatinine 1.02(H) 0.51 - 0.95 mg/dL 11/29/2023 4:03 PM CDT LABORATORY GFR Estimate 61 >60 mL/min/1. 73m2 11/29/2023 4:03 PM CDT LABORATORY Calcium 9.6 8.8 - 10.2 mg/dL 11/29/2023 4:03 PM CDT [facility] Chloride 102 98 - 107 mmol/L 11/29/2023 4:03 PM CDT LABORATORY Glucose 111(H) 70 - 99 mg/dL 11/29/2023 4:03 PM CDT [facility] Alkaline Phosphatase 71 40 - 150 U/L 11/29/2023 4:03 PM CDT LABORATORY Comment:Reference intervals for this test were updated on 07/22/2023 to more accurately reflect our healthy population. There may be differences in the flagging of prior results with similar values performed with this method. Interpretation of those prior results can be made in the context of the updated reference intervals. AST 17 0 - 45 U/L 11/29/2023 4:03 PM CDT [facility] Comment:Reference intervals for this test were updated on 02/17/2023 to more accurately reflect our healthy population. There may be differences in the flagging of prior results with similar values performed with this method. Interpretation of those prior results can be made in the context of the updated reference intervals. ALT 13 0 - 50 U/L 11/29/2023 4:03 PM CDT [facility] Comment:Reference intervals for this test were updated on 02/17/2023 to more accurately reflect our healthy population. There may be differences in the flagging of prior results with similar values performed with this method. Interpretation of those prior results can be made in the context of the updated reference intervals. Protein Total 7.3 6.4 - 8.3 g/dL 11/29/2023 4:03 PM CDT [facility] Albumin 4.7 3.5 - 5.2 g/dL 11/29/2023 4:03 PM CDT [facility] Bilirubin Total 0.3 <=1.2 mg/dL 11/29/2023 4:03 PM CDT [facility] Blood BLOOD SPECIMEN / Unknown Venipuncture / Unknown 11/29/2023 3:28 PM CDT 11/29/2023 3:42 PM CDT Jesus Will MD LAB - BLOOD [facility] Organization Address City/State/ZIP Co de Phone Number LABORATORY [facility] Lab [address] Lab (1st floor, no room number) [place] [address], [facility] * COLONOSCOPY (06/20/2023 8:38 AM CDT) [facility] Patient Name: Hortensia Buitrago ?Procedure [...] monitored continuously. The ?Olympus Pediatric Colonoscope Model #PCF-WB261V, ?Endora #253, SN #[id number] was introduced through the ?anus and advanced [...] Note Initiated On: 06/20/2023 8:38 AM MRN: ?[id number] Procedure Date: ? 06/20/2023 8:38:02 AM Total Procedure Duration: 0 hours 17 minutes 16 seconds Estimated Blood Loss: ? Scope In: 8:54:15 AM Scope Out: 9:11:31 AM RADIOLOGY RESULTS 06/20/2023 8:38 AM CDT Veronika Vernon MD PROCEDURES RADIOLOGY RESULTS from Last 3 Months or Most Recently Relevant to Health Maintenance Advance Directives For more information, please contact: [phone] * Full Code (Latest Code Status on File) Date Activated Date Inactivated Comments 11/29/2023 6:29 PM 12/09/2023 7:06 PM All basic and advanced life-sustaining interventions are performed as appropriate Question Answer Comments Code status determined by: Discussion with patie nt/ legal decision maker * Full Code Date Activated Date Inactivated Comments 09/22/2023 10:47 PM 09/25/2023 3:43 PM All basic a nd advanced life-sustaining interventions are performed as appropriate Question Answer Comments Code status determined by: Discussion with patie nt/ legal decision maker * Full Code Date Activated Date Inactivated Comments 06/16/2023 11:50 PM 06/22/2023 8:34 PM All basic and advanced life-sustaining interventions are performed as appropriate Question Answer Comments Code status determined by: Discussion with patie nt/ legal decision maker * Full Code Date Activated Date Inactivated Comments 03/31/2023 10:48 PM 04/02/2023 3:29 PM All basic a nd advanced life-sustaining interventions are performed as appropriate Question Answer Comments Code status determined by: Discussion with patie nt/ legal decision maker * Full Code Date Activated Date Inactivated Comments 03/21/2023 8:47 PM 03/26/2023 2:37 PM All basic an d advanced life-sustaining interventions are performed as appropriate Question Answer Comments Code status determined by: Discussion with luca nt/ legal decision maker Care Teams Revising Clerk Relationship Specialty Start Date End Date Andrew Israel PA-C [facility] [address] [place] [address] PCP - General 05/15/23
--- OUTSIDE RECORDS SUMMARY | 2024-01-20 21:13 | XMS_ITS | Referral Summary ---
Author Name Unknown Organization [place] Address [address] [place] [address] Care Team Providers Care Shoe Shanker Name Role Phone Andrew Israel PA-C Primary Care Provider [phone] Encounters Date Type Department Care Team Description 11/29/2023 2:06 PM CDT - 12/09/2023 5:06 PM CDT Hospital Encounter [facility] Pediatric [address] [place] [id number] Jesus Will MD Hess, Toy, MD Galindez, Al Gilbert, MD Crohn's disease with complication, unspecified gastrointestinal tract location (H) (Primary Dx); Exacerbation of Crohn's disease with complication (H); Generalized abdominal pain; IBD (inflammatory bowel disease); Nausea Discharge Disposition: Home or Self Care 11/29/2023 Travel from Last 3 Months Allergies Active Allergy Reactions Criticality Noted Date Comments Acetaminophen Nausea and Vomiting 01/28/2023 Aspirin Nausea and Vomiting Medium 02/11/2023 Codeine Nausea and Vomiting 02/11/2023 Meperidine Nausea and Vomiting Medium 02/10/2023 N/V Latex Hives High 02/11/2023 Mold 02/11/2023 Oxycodone Anaphylaxis,Hives,Sw e lling High 02/10/2023 Throat swelling, per pt Pt tolerates [place]/Vicodin (06/22/2023) Penicillin G Anaphylaxis High 02/11/2023 Oxycodone-Acetaminophen [...] hours as needed for nausea 20 tablet 4 Active hydrOXYzine HCl (ATARAX) 25 MG tabletIndications:[employer] hn's disease with complication, unspecified gastrointestinal tract location (H) Take 1 tablet (25 mg) by mouth every 6 hours as needed for other (adjuvant pain) 20 tablet 4 Active Active Problems Problem Noted Date Diagnosed [...] Administration Dates Next Due COVID-19 MONOVALENT 12+ ([employer] ([employer])) 12/26/2020,11/08 Social History Tobacco Use Types Packs/Day [...] 11/30/2023 3:18 AM CDT Plan of Treatment Not on file [...] of10 resultswithin the time period is included. [facility] CRP Inflammation 3.72 <5.00 mg/L 12/09/19 8:19 AM CDT LABORATORY Blood STRUCTURE OF RIGHT HAND / Unknown Venipuncture / Unknown 12/09/2023 7:49 AM CDT 12/09/2023 7:57 AM CDT Kai Su DO LAB - BLOOD ORDER NATALIIA LABORATORY [facility] Acute Care Lab [address] [facility] Lab (1st floor, no room number) [place] [address] * (ABNORMAL) Basic metabolic panel (12/09/2023 7:49 AM CDT) Only the most recent of5 resultswithin the time period is included. [facility] Sodium 137 135 - 145 mmol/L 12/09/2023 [...] - 23.0 mg/dL 12/09/2023 8:19 AM CDT [facility] Creatinine 1.02(H) 0.51 - 0.95 mg/dL 12/09/2023 8:19 AM CDT [facility] GFR Estimate 61 >60 mL/min/1. 73m2 12/09/2023 8:19 AM CDT [facility] Calcium 8.7(L) 8.8 - 10.2 mg/dL 12/09/2023 8:19 AM CDT LABORATORY Glucose 126(H) 70 - 99 mg/dL 12/09/2023 8:19 AM CDT [facility] Blood STRUCTURE OF RIGHT HAND / Unknown Venipuncture / Unknown 12/09/2023 7:49 AM CDT 12/09/2023 7:57 AM CDT Cathy Childers DO LAB - BLOOD ORDERABL ES Performing Organization Address City/[facility]/ZIP Co de Phone Number LABORATORY [facility] Care Lab [address] Lab (1st floor, no room number) [address] * Potassium (12/08/2023 6:57 AM CDT) Only the most recent of6 resultswithin the time period is included. Potassium 4.7 3.4 - 5.3 mmol/L 12/08/2023 7:28 AM CDT LABORATORY Blood STRUCTURE OF RIGHT HAND / Unknown Venipuncture / Unknown 12/08/2023 6:57 AM CDT 12/08/2023 7:08 AM CDT Eusebio Zhang MD LAB - BLOOD ORDERABL ES LABORATORY [facility] Lab [address] Lab (1st floor, no room number) [address] * (ABNORMAL) Magnesium (12/08/2023 6:57 AM CDT) Only the most recent of9 resultswithin the time period is included. Magnesium 2.4(H) 1.7 - 2.3 mg/dL 12/08/2023 7:28 AM CDT [facility] Blood STRUCTURE OF RIGHT HAND / Unknown Venipuncture / Unknown 12/08/2023 6:57 AM CDT 12/08/2023 7:08 AM CDT Eusebio Zhang MD LAB - BLOOD ORDERABL ES LABORATORY [facility] Acute Care Lab [address] Lab (1st floor, no room number) [place] [address] * (ABNORMAL) CBC with platelets (12/07/2023 6:50 [...] DO LAB - BLOOD ORDERABL ES LABORATORY [facility] Acute Care Lab [address] Lab (1st floor, no room number) [place] [address], [facility] * (ABNORMAL) UA with Microscopic reflex [...] mg/dL 12/06/2023 2:45 AM CDT LABORATORY Specific [place] Urine 1.005 1.003 - 1.035 12/06/2023 2:45 [...] AM CDT 12/06/2023 1:50 AM CDT Narrative [facility] - 12/06/2023 2:45 AM CDT Urine Culture ordered based on laboratory criteria Valdez Gallardo MD LAB - URINE ORDER NATALIIA [facility] Acute Care Lab [address] [facility] Lab (1st floor, no room number) [place] [address] * (ABNORMAL) Urine Culture (12/06/2023 1:40 AM [...] coli Cefazolin MAMIE <=4 ug/mL: Susceptible Comment:Cefazolin CT C breakpoints are for the treatment of [...] Escherichia coli Trimethoprim/Sulfamethoxazole MAMIE <=1/19 ug/mL: Susceptible Valdez Gallardo MD LAB - MICRO GENER AL ORDERABLES [facility] IDD LABORATORY [facility] Inf. Diseases Diag. Lab [address] [facility], [address] [place] [address], [facility] * MR Enterography w/o & wContrast [...] is recommended. JOAQUÍN LUNA MD SYSTEM ID: ??[id number] Narrative 12/03/2023 12:04 PM CDT MR ENTEROGRAPHY [...] is recommended. JOAQUÍN LUNA MD SYSTEM ID: [id number] Hortensia Dominguez PA-C IMG MRI ORD ERABLES [...] MD LAB - BLOOD ORDER NATALIIA LABORATORY [facility] Acute Care Lab [address] [facility] Lab (1st floor, no room number) [place] [address], [facility] * CMV antibody IgM (11/29/2023 7:32 PM CDT) CMV Kimmy IgM Instrument Value <8.0 <30.0 AU/mL 12/01/2023 10:27 AM CDT SPECIALTY CORE/PROT/END O CMV Antibody IgM Negative Negative 12/01/2023 10:27 AM CDT SPECIALTY CORE/PROT/END O Blood STRUCTURE OF RIGHT UPPER LIMB / Unknown Venipuncture / Unknown 11/29/2023 7:32 PM CDT 11/29/2023 7:37 PM CDT Narrative [facility] SPECIALTY CORE/PROT/ENDO - 12/01/2023 10:27 AM CDT [...] - BLOOD ORDERABL ES Performing Organization Address [facility] Co de Phone Number UM SPECIALTY CORE/PROT/ENDO Specialty Core/Prot/Endo 500 [facility], Room [address] * (ABNORMAL) CMV Antibody IgG (11/29/2023 7:32 PM CDT) CMV Kimmy IgG Instrument Value 6.80(H) <0.60 U/mL 12/01/2023 10:14 AM CDT [facility] SPECIALTY CORE/PROT/EN DO CMV Antibody IgG Positive, suggests recent or past exposure.(A) No detectable antibody. 12/01/2023 10:14 AM CDT SPECIALTY CORE/PROT/EN DO Blood STRUCTURE OF RIGHT UPPER LIMB / Unknown Venipuncture / Unknown 11/29/2023 7:32 PM CDT 11/29/2023 7:37 PM CDT Eusebio Zhang MD LAB - BLOOD ORDERABL ES Performing Organization Address [facility] Co de Phone Number SPECIALTY CORE/PROT/ENDO Specialty Core/Prot/Endo 500 [facility], Room [address] * CT Abdomen Pelvis w Contrast [...] W CONTRAST LOCATION: [facility] DATE: 11/29/2023 INDICATION: Severe abd pain [...] W CONTRAST LOCATION: [facility] DATE: 11/29/2023 INDICATION: Severe abd pain [...] a mild infectious colitis. Jesus Will MD [facility] CT ORDERABLE S * Erythrocyte sedimentation rate auto (11/29/2023 3:28 PM CDT) Erythrocyte Sedimentation Rate 3 0 - 30 mm/hr 11/29/2023 3:57 PM CDT [facility] Blood BLOOD SPECIMEN / Unknown Venipuncture / Unknown 11/29/2023 3:28 PM CDT 11/29/2023 3:42 PM CDT Jesus Will MD LAB - BLOOD R[facility] SING[facility] Acute Care Lab [address] Lab (1st floor, no room number) [place] [address] * (ABNORMAL) Comprehensive metabolic panel (11/29/2023 3:28 PM CDT) Pathologist [facility] Sodium 138 135 - 145 mmol/L 11/29/2023 [...] - 5.3 mmol/L 11/29/2023 4:03 PM CDT [facility] Carbon Dioxide (CO2) 24 22 - 29 mmol/L 11/29/2023 4:03 PM CDT [facility] Anion Gap 12 7 - 15 mmol/L 11/29/2023 4:03 PM CDT [facility] Urea Nitrogen 13.0 8.0 - 23.0 mg/dL 11/29/2023 4:03 PM CDT [facility] Creatinine 1.02(H) 0.51 - 0.95 mg/dL 11/29/2023 4:03 PM CDT [facility] GFR Estimate 61 >60 mL/min/1. 73m2 11/29/2023 4:03 PM CDT [facility] Calcium 9.6 8.8 - 10.2 mg/dL 11/29/2023 4:03 PM CDT [facility] Chloride 102 98 - 107 mmol/L 11/29/2023 4:03 PM CDT [facility] Glucose 111(H) 70 - 99 mg/dL 11/29/2023 4:03 PM CDT [facility] Alkaline Phosphatase 71 40 - 150 U/L 11/29/2023 4:03 PM CDT [facility]ATORY [...] Will MD LAB - BLOOD R[facility] SING[facility] Organization Address City/State/ZIP Co de Phone Number [facility] Acute Care Lab [address] Lab (1st floor, no room number) [place] [address], [facility] * COLONOSCOPY (06/20/2023 8:38 AM CDT) [facility] COLONOSCOPY [facility] Patient Name: Hortensia Buitrago [...] monitored continuously. The ?Olympus Pediatric Colonoscope Model #PCF-NT831B, ?Endora #253, SN #[id number] was introduced through the ?anus and advanced [...] Note Initiated On: 06/20/2023 8:38 AM MRN: ?[id number] Procedure Date: ? 06/20/2023 8:38:02 AM Total Procedure Duration: 0 hours 17 minutes 16 seconds Estimated Blood Loss: ? Scope In: 8:54:15 AM Scope Out: 9:11:31 AM RADIOLOGY RESULTS 06/20/2023 8:38 AM CDT Veronika Vernon MD PROCEDURES Performing Organization Address City/State/[facility] Co de Phone Number RADIOLOGY RESULTS from Last 3 Months or Most Recently Relevant to Health Maintenance Advance Directives For more information, please contact: [phone] * Full Code (Latest Code Status on [...] Discussion with patie nt/ legal decision maker Care Teams Shoe Shanker Relationship Specialty Start Date End Date Andrew Israel PA-C [facility] [address] [place] [address] PCP - General 05/15/23
--- OUTSIDE RECORDS SUMMARY | 2024-01-20 21:13 | XMS_ITS | Encounter Summary ---
Author Name Unknown Organization [place] Address [address] [place] [address] Care Team Providers Care Logging Equipment Operator Name Role Phone Andrew Israel PA-C Primary Care Provider [phone] Encounter Details Date Type Department Care Team (Latest Contact Info) Description 11/29/2023 Travel Social History Tobacco Use Types Packs/Day [...] Last Indicated Resolved Time Rule Out C-difficile 11/29/2023 11/29/2023 024 2:05 AM CDT documented as of this encounter Care Teams Logging Equipment Operator Relationship Specialty Start Date End Date Andrew Israel PA-C [facility] [address] [place] [address] PCP - General 05/15/23 documented as of this encounter
--- OUTSIDE RECORDS SUMMARY | 2024-01-20 21:13 | XMS_ITS ---
Author Name Unknown Organization [place] Address [address] [place] [address] Care Team Providers Care Lead Material Handler Name Role Phone Andrew Israel PA-C Primary Care Provider [phone] Transitional Care Management Status:Closed (Closed) Start date:12/10/2023 Enrollment date:12/11/2023 End date:12/24/2023 Close reason:Goals met Continued Care and Services Coordination
--- OUTSIDE RECORDS SUMMARY | 2024-01-20 21:13 | XMS_ITS | Encounter Summary ---
Author Name Unknown Organization [facility] Address [address] [place] [id number] Care Team Providers [employer] Name Role Phone Andrew Israel PA-C Primary Care Provider [phone] Reason for Visit * Reason Comments Abdominal Pain * Auth/Cert (Routine) Specialty Diagnoses / Procedures Referred By Contac t Referred To Contact Pediatrics Diagnoses Generalized abdominal pain Exacerbation of Crohn's disease with complication (H) Crohn disease (H) Exacerbation of Crohn's disease with complication (H) Generalized abdominal pain Crohn disease (H) Pediatrics [address] [place] [address] Referral ID Status Reason Start Date Expiration Date Visits Re quested Visits Authorized [id number] 1 1 Encounter Details Date Type Department Care Team (Late st Contact Info) Description 11/29/2023 2:06 PM CDT - 12/09/2023 5:06 PM CDT Hospital Encounter [facility] [address] [place] [phone] Jesus Will MD [facility] [address] [place] [id number] Eusebio Zhang MD [address] [place], [place] [id number] Valedz Gallardo MD [address] [place] [address] Crohn's disease with complication, unspecified gastrointestinal tract [...] Mass Index 26.22 11/30/2023 3:18 AM CDT documented in this encounter Discharge Summaries * Cathy Childers DO - 12/09/2023 4:18 PM CDT [facility] Hospitalist Discharge Summary Date of Admission: 11/29/2023 Date of Discharge: 12/09/2023 Discharging Provider: Cathy Childers DO Discharge Service: Hospitalist Service Discharge Diagnoses Acute Intractable Abdominal Pain Crohn's Flare Acute Kidney Injury UTI, e coli Clinically Significant Risk Factors # Overweight: Estimated body mass index is 26.22 kg/m?? as calculated from the following: Height as of this encounter: 1.6 m (5' 3). Weight as of this encounter: 67.1 kg (148 lb). Follow-ups Needed After Discharge Follow-up Appointments Follow-up and recommended labs and tests Follow up with primary care provider, Andrew Israel, within 7 days for hospital follow- up. Follow up with GI as scheduled Discharge Disposition Discharged to home Condition at discharge: Stable Hospital Course Summary of Stay: Hortensia Buitrago is a 63 year old female with a history of Crohn's disease admittedon 11/29/2023 with abdominal pain. In the emergency department, the patient found to have a BUN/creatinine 13.0/1.02, glucose 111, WBC 8.9. Urinalysis was negative for signs of infection. CT abdomen and pelvis showed mild wall thickening and mucosal hyperenhancement of the colon suggestive of mild infectious colitis. The patient was started on IV Solu-Medrol with concern for Crohn's flare. Gastroenterology was consulted to see the patient; received dose of infliximab while inpatient, plan to increase frequency of infusions as she does have relief of symptoms but wears off too quickly between doses. Switched to PO steroids and discharged with pain control and cipro course for possible UTI. Consultations This Hospital Stay GASTROENTEROLOGY IP CONSULT SPIRITUAL HEALTH SERVICES IP CONSULT CARE MANAGEMENT / SOCIAL WORK IP CONSULT Code Status Full Code Time Spent on this Encounter I, Cathy Childers DO, personally saw the patient today and spent greater than 30 minutes discharging this patient. Cathy Childers DO [facility] [address] [facility] [id number] Physical Exam Vital Signs: Temp: 97.4 ??F (36.3 ??C) Temp src: Oral BP: 119/86 Pulse: 72 Resp: 16 SpO2: 94 % O2 Device: None (Room air) Weight: 148 lbs 0 oz Primary Care Physician Andrew Israel Discharge Orders Reason for your hospital stay You were hospitalized for Crohn's flare. Follow-up and recommended labs and tests Follow up with primary care provider, Andrew Israel, within 7 days for hospital follow- up. Follow up with GI as scheduled Activity Your activity upon discharge: activity as tolerated Diet Follow this diet upon discharge: Orders Placed This Encounter Snacks/Supplements Adult: Other; any diet appropriate oral nutritional supplements; Between Meals Combination Diet Regular Diet Adult Significant Results and Procedures Most Recent 3 CBC's: Recent Labs Lab Test 12/07/23 0650 12/03/23 0720 12/01/23 0701 WBC 13.4* 13.6* 7.8 HGB 13.3 13.5 11.9 MCV 90 89 89 PLT 253 241 229 Most Recent 3 BMP's: Recent Labs Lab Test 12/09/23 0749 12/08/23 0657 12/07/23 0650 12/04/23 0653 12/03/23 0720 NA 137 -- 137 -- 138 POTASSIUM 4.6 4.7 4.6 < > 4.8 CHLORIDE 101 -- 100 -- 105 CO2 29 -- 29 -- 22 BUN 15.8 -- 20.2 -- 25.2* CR 1.02* -- 1.07* -- 0.98* ANIONGAP 7 -- 8 -- 11 DAJA 8.7* -- 8.7* -- 8.5* GLC 126* -- 121* -- 118* < > = values in this interval not displayed. Most Recent ESR & CRP: Recent Labs Lab Test 12/09/23 0749 12/01/23 0701 11/29/23 1528 SED -- -- 3 CRPI 3.72 < > <3.00 < > = values in this interval not displayed. , Results for orders placed or performed during the hospital encounter of 11/29/23 CT Abdomen Pelvis w Contrast Narrative EXAM: CT ABDOMEN PELVIS W CONTRAST LOCATION: [facility] DATE: 11/29/2023 INDICATION: Severe abd pain and [...] VASCULATURE: Normal. PELVIC ORGANS: Hysterectomy. MUSCULOSKELETAL: Normal. Impression IMPRESSION: 1. Mild wall thickening and mucosal hyperenhancement of the colon. This is suggestive of a mild infectious colitis. MR Enterography w/o & wContrast Narrative MR ENTEROGRAPHY WITHOUT AND WITH CONTRAST 12/03/2023 [...] free fluid in the right lower quadrant. Impression IMPRESSION: 1. There is a short segment [...] appearance, and close follow-up is recommended. JOAQUÍN CAAL MD SYSTEM ID: [id number] Discharge Medications Current Discharge Medication List START taking these medications Details ciprofloxacin (CIPRO) 500 MG tablet Take 1 tablet (500 mg) by mouth 2 times daily for 8 doses Qty: 8 tablet, Refills: 0 Associated Diagnoses: Crohn's disease with complication, unspecified gastrointestinal tract location (H) CONTINUE these medications which have CHANGED Details HYDROmorphone (DILAUDID) 2 MG tablet Take 1-2 tablets (2-4 mg) by mouth every 3 hours as needed forsevere pain Qty: 20 tablet, Refills: 0 Associated Diagnoses: Crohn's disease with complication, unspecified gastrointestinal tract location (H) hydrOXYzine HCl (ATARAX) 25 MG tablet Take 1 tablet (25 mg) by mouth every 6 hours as needed for other (adjuvant pain) Qty: 20 tablet, Refills: 0 Associated Diagnoses: Crohn's disease with complication, unspecified gastrointestinal tract location (H) ondansetron (ZOFRAN ODT) 4 MG ODT tab Take 1 tablet (4 mg) by mouth every 8 hours as needed for nausea Qty: 20 tablet, Refills: 0 Associated Diagnoses: Crohn's disease with complication, unspecified gastrointestinal tract location (H) CONTINUE these medications which have NOT CHANGED Details acetaminophen (TYLENOL) 500 MG tablet Take 1-2 tablets (500-1,000 mg) by mouth every 6 hours as needed for mild pain Associated Diagnoses: RLQ abdominal pain albuterol (PROAIR HFA/PROVENTIL HFA/VENTOLIN HFA) 108 (90 [...] 1,000 mcg as directed every 30 days dicyclomine (BENTYL) 20 MG tablet Take 1 tablet (20 mg) by mouth 4 times daily (before meals and nightly) Qty: 30 tablet, Refills: 0 Associated Diagnoses: Intractable abdominal pain esomeprazole (NEXIUM) [address] capsule Take [...] Take 25 mg by mouth At Bedtime predniSONE (DELTASONE) 5 MG tablet Take by mouth daily Starting 11/26/23 80 mg dailly for 1 week, then 70 mg dailly for 1 week 60 mg dailly for 1 week 50 mg dailly for 1 week 40 mg dailly for 1 week 30 mg dailly for 1 week 20 mg dailly for 1 week 10 mg dailly for 1 week simethicone (MYLICON) 80 MG chewable tablet Take 1 tablet (80 mg) by mouth every 6 hours as needed for cramping Qty: 30 tablet, Refills: 0 Associated Diagnoses: Intractable abdominal pain traZODone (DESYREL) 100 MG tablet Take 200 mg by mouth At Bedtime vitamin C (ASCORBIC ACID) 1000 MG TABS Take 1,000 mg by mouth daily Vitamin D3 (CHOLECALCIFEROL) 25 mcg (1000 units) tablet Take 25 mcg by mouth daily Allergies Allergies Allergen Reactions Latex Hives Oxycodone Anaphylaxis, Hives and Swelling Throat swelling, per pt Pt tolerates [place]/Vicodin (06/22/2023) Penicillin G Anaphylaxis Sumatriptan Palpitations Aspirin Nausea and Vomiting Demerol Hcl [Meperidine] Nausea and Vomiting N/V Percocet [Oxycodone-Acetaminophen] Nausea and Vomiting N/V Acetaminophen Nausea and Vomiting Codeine Nausea and Vomiting Mold documented in this encounter Medications at Time of Discharge Medication Sig Dispensed Refills Start Date End Date acetaminophen (TYLENOL) 500 MG tabletIndications:RLQ abdominal pain Take 1-2 tablets (500-1,000 mg) by mouth every 6 hours as needed for mild pain 04/02/2023 albuterol (PROAIR HFA/PROVENTIL HFA/VENTOLIN HFA) 108 (90 Base) MCG/ACT inhaler Inhale 2 puffs into the lungs every 6 hours as needed for shortness of breath, wheezing or cough bisacodyl (DULCOLAX) 10 MG suppositoryIndications :RLQ abdominal pain,Partial small bowel obstruction (H) Place 1 suppository (10 mg) rectally 2 times daily as needed for constipation 10 suppository 1 02/23/2023 cyanocobalamin (CYANOCOBALAMIN) 1000 MCG/ML injection Inject 1,000 mcg as directed every 30 days dicyclomine (BENTYL) 20 MG tabletIndications:Intr actable abdominal pain Take 1 tablet (20 mg) by mouth 4 times daily (before meals and nightly) 30 tablet 09/25/2023 esomeprazole (NEXIUM) [address] capsule Take 40 mg by mouth 2 times daily (before meals) Take 30-60 minutes before eating. famotidine (PEPCID) 40 MG tablet Take 40 mg by mouth At Bedtime hydrOXYzine HCl (ATARAX) 25 MG tabletIndications:Croh n's disease with complication, unspecified gastrointestinal tract location (H) Take 1 tablet (25 mg) by mouth every 6 hours as needed for other (adjuvant pain) 20 tablet 12/09/2023 inFLIXimab (REMICADE IV)Indications:Gastroe nterologist has changed the [...] 25 MG EDIBLE methocarbamol (ROBAXIN) 500 MG tabletIndications:RLQ abdominal pain,Partial small bowel obstruction (H),IBD (inflammatory bowel disease),Nausea Take 1 tablet (500 mg) by mouth 4 times daily as needed for muscle spasms 15 tablet 1 02/23/2023 montelukast (SINGULAIR) 10 MG tablet Take 10 mg by mouth At Bedtime nortriptyline (PAMELOR) 25 MG capsule Take 25 mg by mouth At Bedtime ondansetron (ZOFRAN ODT) 4 MG ODT tabIndications:Crohn's disease with complication, unspecified gastrointestinal tract location (H) Take 1 tablet (4 mg) by mouth every 8 hours as needed for nausea 20 tablet 12/09/2023 predniSONE (DELTASONE) 5 MG tablet Take by mouth daily Starting 11/26/23 80 mg dailly for 1 week, then 70 mg dailly for 1 week 60 mg dailly for 1 week 50 mg dailly for 1 week 40 mg dailly for 1 week 30 mg dailly for 1 week 20 mg dailly for 1 week 10 mg dailly for 1 week simethicone (MYLICON) 80 MG chewable tabletIndications:Intr actable abdominal pain Take 1 tablet (80 mg) by mouth every 6 hours as needed for cramping 30 tablet 09/25/2023 traZODone (DESYREL) 100 MG tablet Take 200 mg by mouth At Bedtime vitamin C (ASCORBIC ACID) 1000 MG TABS Take 1,000 mg by mouth daily Vitamin D3 (CHOLECALCIFEROL) 25 mcg (1000 units) tablet Take 25 mcg by mouth daily ciprofloxacin (CIPRO) 500 MG tabletIndications:Urin ryanne Tract Infection Take 1 tablet (500 mg) by mouth 2 times daily for 8 doses 8 tablet 12/09/2023 4 HYDROmorphone (DILAUDID) 2 MG tabletIndications:Croh n's disease with complication, unspecified gastrointestinal tract location (H) Take 1-2 tablets (2-4 mg) by mouth every 3 hours as needed for severe pain 20 tablet 12/09/2023 4 documented as of this encounter Progress Notes * Restricted notes were excluded * Alisa Norman PA-C - 12/09/2023 2:07 PM CDT Images from the original note were not included. GASTROENTEROLOGY PROGRESS NOTE SUBJECTIVE: Switched to oral steroids last evening. Pain continuing to improve. She is using oral Dilaudid as needed. Tolerated low fat diet this morning and for lunch. No stools or flatus today -feels like she needs to stool. Took senna earlier. Reflux better today. She feels ready to discharge. OBJECTIVE: BP 119/86 Pulse 72 Temp 97.4 ??F (36.3 ??C) (Oral) Resp 16 Ht 1.6 m (5' 3) Wt 67.1 kg (148 lb) SpO2 94% BMI 26.22 kg/m?? Temp (24hrs), Av.8 ??F (36.6 ??C), Min:97.6 ??F (36.4 ??C), Max:98 ??F (36.7 ??C) No data found. Intake/Output Summary (Last 24 hours) at 12/04/2023 1600 Last data filed at 12/04/2023 1500 Gross per 24 hour Intake 2069 ml Output -- Net 2069 ml PHYSICAL EXAM Gen: alert, oriented, NAD Abd: soft, hypoactive BS, nondistended, moderate tenderness RLQ/epigastrium. No rebound or guarding. Additional Comments: ROS, FH, SH: See initial GI consult for details. I have reviewed the patient's new clinical lab results: Recent Labs Lab Test 12/07/23 0650 12/03/23 0720 12/01/23 0701 WBC 13.4* 13.6* 7.8 HGB 13.3 13.5 11.9 MCV 90 89 89 PLT 253 241 229 Recent Labs Lab Test 12/09/23 0749 12/08/23 0657 12/07/23 0650 12/04/23 0653 12/03/23 0720 POTASSIUM 4.6 4.7 4.6 < > 4.8 CHLORIDE 101 -- 100 -- 105 CO2 29 -- 29 -- 22 BUN 15.8 -- 20.2 -- 25.2* ANIONGAP 7 -- 8 -- 11 < > = values in this interval not displayed. Recent Labs Lab Test 12/06/23 0140 11/29/23 1528 11/29/23 1526 09/23/23 0816 09/22/23 1823 09/22/23 1801 06/16/23 1750 06/16/23 1737 03/31/23 1717 03/31/23 1608 ALBUMIN -- 4.7 -- 3.9 4.5 -- < > 4.7 -- 3.9 BILITOTAL -- 0.3 -- 0.6 0.7 -- < > 0.4 -- 0.3 ALT -- 13 -- 11 15 -- < > 15 -- 28 AST -- 17 -- 16 15 -- < > 24 -- 29 PROTEIN Negative -- Negative -- -- Negative < > -- < > -- LIPASE -- -- -- -- -- -- -- 27 -- 56 < > = values in this interval not displayed. Assessment: 63-year-old female diagnosed with Crohn's disease in 2022 who underwent a ileocecectomy for fibrostenotic disease currently on Remicade monotherapy presenting with diarrhea and severe abdominal pain.CT scan showed mild wall thickening and mucosal hyperenhancement of the colon. 1. Crohn's ileitis. CT scan does not show any obstruction. No evidence of stricture or fistula. There was some mild wall thickening and mucosal hyperenhancement of the colon. Now diarrhea has stoppedand C diff/enteric panel not able to be collected. On 11/13 C diff was negative and fecal calprotectin was close to normal at 54 (normal <49). Remicade dosing decreased from 10mg/kg every 8 weeks toevery 6 weeks with last infusion 11/05 (~4 weeks ago) prior to presentation. 12/02 MRE shows new short segment of ileitis, multiple prominent/dilated small bowel loops without inflammation or transition point suggestive of ileus, normal colon other than large amount stools. Had minimal output with suppository, senna. 12/03 No stools, ongoing pain. Suspect a portion of the pain is related to active Crohn's but ileus/constipation could be contributing. Patient is trying to minimize narcotics. Discussed patient with IBD MD Dr. Juan from our office. He is in agreement that we give Remicade inpatient and see if this helps. He will look into insurance approval for every 4 week dosing and have her follow up with him outpatient before her next scheduled dose. 12/04 Remicade 10mg/kg given. + enema today due to minimal stooling, good results. Ileus seems resolved. 12/07. First day abdominal pain starting to improve. CRP 36 on 12/05, today 6.79. Stool no longer withmucus. 2. Renal cell carcinoma s/p right nephrectomy in 2008, CKD. Creatinine 0.98 on 12/02. 3. UTI. Started on cipro yesterday. Plan: --Continue oral prednisone taper - 40mg daily x 7 days and then taper by 5mg every 7 days (reports she has enough pills at home). --Low fiber diet as tolerated. --Protonix to 40mg BID. --Continue Pepcid/Tums prn. --Our office working with insurance to get Remicade 10mg/kg every 4 weeks approved. --Has outpatient virtual visit with IBD MD 12/14 at 10:30am. --Ok to discharge from GI standpoint. I will update Dr. Aguilar. Reviewed with Dr. Childers. Time spent: 30 minutes, greater than 50% of the visit was spent in counseling/coordination of care. Alisa Norman, [facility] ([facility]) * Cathy Childers, - 12/08/2023 6:[address] [facility] Medicine Progress Note - Hospitalist Service Date of Admission: 11/29/2023 Assessment & Plan Summary of Stay: Hortensia Buitrago is a 63 year old female with a history of Crohn's disease admittedon 11/29/2023 with abdominal pain. In the emergency department, the patient found to have a BUN/creatinine 13.0/1.02, glucose 111, WBC 8.9. Urinalysis was negative for signs of infection. CT abdomen and pelvis showed mild wall thickening and mucosal hyperenhancement of the colon suggestive of mild infectious colitis. The patient was started on IV Solu-Medrol with concern for Crohn's flare. Gastroenterology was consulted to see the patient. TODAY'S PLAN: -Remain on low fiber diet as tolerated -switching to PO steroids -start cipro 500 bid for 5 days for possible UTI Problem List: Acute Intractable Abdominal Pain Crohn's Flare - Appreciate GI recommendations - On infliximab, last dose was 11/05. Outpatient GI has been increasing frequency and dose of infliximab as her symptoms improve initially but wears off ~ 4 weeks -CRP improving -switch to PO steroids today Acute Kidney Injury - Baseline Cr = 0.8-0.9 -Stable creatinine, currently at normal levels UTI, e coli Cipro 500 mg bid x 5 days Mild Hyperkalemia -Resolved Diet: Combination Diet Regular Diet Adult Snacks/Supplements Adult: Other; any diet appropriate oral nutritional supplements; Between Meals DVT Prophylaxis: Pneumatic Compression Devices and Ambulate every shift Uribe Catheter: Not present Lines: None Cardiac Monitoring: None Code Status: Full Code Clinically Significant Risk Factors # Overweight: Estimated body mass index is 26.22 kg/m?? as calculated from the following: Height as of this encounter: 1.6 m (5' 3). Weight as of this encounter: 67.1 kg (148 lb). Disposition Plan Expected Discharge Date: 12/08/2023 Cathy Childers DO Hospitalist Service [facility] Securely message with [employer] (more info) Text page via [facility] Paging/Directory Physical Exam Vital Signs: Temp: 98 ??F (36.7 ??C) Temp src: Oral BP: (!) 144/88 Pulse: 70 Resp: 16 SpO2: 95 % [id number]: None (Room air) Weight: 148 lbs 0 oz General: Very pleasant female , NAD Respiratory: Normal work of breathing. Musculoskeletal: Moving all extremities appropriately. Skin: No rashes or abrasions on exposed skin. Neurologic: Alert. No gross focal deficits. Psychologic: Appropriate mood and affect. Medical Decision Making 50 MINUTES SPENT BY ME on the date of service doing chart review, history, exam, documentation & further activities per the note. Data I have personally reviewed the following data over the past 24 hrs: N/A \ N/A / N/A N/A N/A N/A / N/A 4.7 N/A N/A \ Procal: N/A CRP: 6.79 (H) Lactic Acid: N/A * Alisa Norman PA-C - 12/08/2023 12:42 PM CDT Images from the original note were not included. GASTROENTEROLOGY PROGRESS NOTE SUBJECTIVE: Today is the first day pain seems to be improving. Scoring 5/10 rather than 8-9/10 on pain scale. Having increased reflux/regurgitation last night and this morning. Tums helping. Tolerated low fiber diet - eating small amt. Had good stool output a couple days ago with enema, now able tostool more regularly - no blood. Passing flatus with mild stool incontinence. Had loose BM today. OBJECTIVE: BP 133/84 Pulse 72 Temp 97.4 ??F (36.3 ??C) (Oral) Resp 18 Ht 1.6 m (5' 3) Wt 67.1 kg (148 lb) SpO2 95% BMI 26.22 kg/m?? Temp (24hrs), Av.8 ??F (36.6 ??C), Min:97.6 ??F (36.4 ??C), Max:98 ??F (36.7 ??C) Patient Vitals for the past 72 hrs: Weight 12/06/23 1348 67.1 kg (148 lb) Intake/Output Summary (Last 24 hours) at 12/04/2023 1600 Last data filed at 12/04/2023 1500 Gross per 24 hour Intake 2069 ml Output -- Net 2069 ml PHYSICAL EXAM Gen: alert, oriented, NAD Abd: soft, hypoactive BS, nondistended, moderate tenderness RLQ. No rebound or guarding. Additional Comments: ROS, FH, SH: See initial GI consult for details. I have reviewed the patient's new clinical lab results: Recent Labs Lab Test 12/07/23 0650 12/03/23 0720 12/01/23 0701 WBC 13.4* 13.6* 7.8 HGB 13.3 13.5 11.9 MCV 90 89 89 PLT 253 241 229 Recent Labs Lab Test 12/08/23 0657 12/07/23 0650 12/06/23 0602 12/04/23 0653 12/03/23 0720 12/02/23 0745 12/01/23 0701 POTASSIUM 4.7 4.6 4.8 < > 4.8 < > 4.3 CHLORIDE -- 100 -- -- 105 -- 107 CO2 -- 29 -- -- 22 -- 26 BUN -- 20.2 -- -- 25.2* -- 13.2 ANIONGAP -- 8 -- -- 11 -- 9 < > = values in this interval not displayed. Recent Labs Lab Test 12/06/23 0140 11/29/23 1528 11/29/23 1526 09/23/23 0816 09/22/23 1823 09/22/23 1801 06/16/23 1750 06/16/23 1737 03/31/23 1717 03/31/23 1608 ALBUMIN -- 4.7 -- 3.9 4.5 -- < > 4.7 -- 3.9 BILITOTAL -- 0.3 -- 0.6 0.7 -- < > 0.4 -- 0.3 ALT -- 13 -- 11 15 -- < > 15 -- 28 AST -- 17 -- 16 15 -- < > 24 -- 29 PROTEIN Negative -- Negative -- -- Negative < > -- < > -- LIPASE -- -- -- -- -- -- -- 27 -- 56 < > = values in this interval not displayed. Assessment: 63-year-old female diagnosed with Crohn's disease in 2022 who underwent a ileocecectomy for fibrostenotic disease currently on Remicade monotherapy presenting with diarrhea and severe abdominal pain.CT scan showed mild wall thickening and mucosal hyperenhancement of the colon. 1. Crohn's ileitis. CT scan does not show any obstruction. No evidence of stricture or fistula. There was some mild wall thickening and mucosal hyperenhancement of the colon. Now diarrhea has stoppedand C diff/enteric panel not able to be collected. On 11/13 C diff was negative and fecal calprotectin was close to normal at 54 (normal <49). Remicade dosing decreased from 10mg/kg every 8 weeks toevery 6 weeks with last infusion 11/05 (~4 weeks ago) prior to presentation. 12/02 MRE shows new short segment of ileitis, multiple prominent/dilated small bowel loops without inflammation or transition point suggestive of ileus, normal colon other than large amount stools. Had minimal output with suppository, senna. 12/03 No stools, ongoing pain. Suspect a portion of the pain is related to active Crohn's but ileus/constipation could be contributing. Patient is trying to minimize narcotics. Discussed patient with IBD MD Dr. Juan from our office. He is in agreement that we give Remicade inpatient and see if this helps. He will look into insurance approval for every 4 week dosing and have her follow up with him outpatient before her next scheduled dose. 12/04 Remicade 10mg/kg given. + enema today due to minimal stooling, good results. Ileus seems resolved. 12/07. First day abdominal pain starting to improve. CRP 36 on 12/05, today 6.79. Stool no longer withmucus. 2. Renal cell carcinoma s/p right nephrectomy in 2008, CKD. Creatinine 0.98 on 12/02. Plan: --Stop IV steroids. --Start oral prednisone 20mg for 1600 dose today. --Start oral prednisone taper tomorrow - 40mg daily x 7 days and then taper by 5mg every 7 days (reports she has enough pills at home). --Low fiber diet as tolerated. --Increase Protonix to 40mg BID. --Continue Pepcid/Tums prn. --Our office working with insurance to get Remicade 10mg/kg every 4 weeks approved. --Has outpatient virtual visit with IBD MD 12/14 at 10:30am. I will update Dr. Aguilar. Time spent: 30 minutes, greater than 50% of the visit was spent in counseling/coordination of care. Alisa Norman, [facility] ([facility]) * Cathy Childers, - 12/07/2023 2:41 PM CDT [facility] Medicine Progress Note - Hospitalist Service Date of Admission: 11/29/2023 Assessment & Plan Summary of Stay: Hortensia Buitrago is a 63 year old female with a history of Crohn's disease admittedon 11/29/2023 with abdominal pain. In the emergency department, the patient found to have a BUN/creatinine 13.0/1.02, glucose 111, WBC 8.9. Urinalysis was negative for signs of infection. CT abdomen and pelvis showed mild wall thickening and mucosal hyperenhancement of the colon suggestive of mild infectious colitis. The patient was started on IV Solu-Medrol with concern for Crohn's flare. Gastroenterology was consulted to see the patient. TODAY'S PLAN: -1L IVF bolus -Remain on low fiber diet as tolerated -Continue with aggressive bowel regimen -Remain on IV steroids and defer to GI service -urine was collected for concerns about appearance, asymptomatic. UA itself was rather bland, culture with >100,000 e coli but she has had this on previous cultures as well and may reflect colonization. Given no symptoms will monitor for now; if developed symptoms would then treat. Problem List: Acute Intractable Abdominal Pain Crohn's Flare - Appreciate GI recommendations - On infliximab, last dose was 11/05. Outpatient GI has been increasing frequency and dose of infliximab as her symptoms improve initially but wears off ~ 4 weeks - IV solumedrol - Pain control - CMV IgM/IgG pending - CRP <3 upon arrival, increasing, will continue to trend Acute Kidney Injury - Baseline Cr = 0.8-0.9 -Stable creatinine, currently at normal levels Abnormal UA urine was collected for concerns about appearance, asymptomatic. UA itself was rather bland, culture with >100,000 e coli but she has had this on previous cultures as well and may reflect colonization. Given no symptoms will monitor for now; if developed symptoms would then treat. Mild Hyperkalemia -Resolved Diet: Combination Diet Regular Diet Adult Snacks/Supplements Adult: Other; any diet appropriate oral nutritional supplements; Between Meals DVT Prophylaxis: Pneumatic Compression Devices and Ambulate every shift Uribe Catheter: Not present Lines: None Cardiac Monitoring: None Code Status: Full Code Clinically Significant Risk Factors # Overweight: Estimated body mass index is 26.22 kg/m?? as calculated from the following: Height as of this encounter: 1.6 m (5' 3). Weight as of this encounter: 67.1 kg (148 lb). Disposition Plan Cathy Childers DO Hospitalist Service [facility] Securely message with [employer] (more info) Text page via [employer] Paging/Directory Interval History Has had several bowel movements, pain better controlled today on oral regimen. Feels better after IV fluid bolus. No urinary symptoms Physical Exam Vital Signs: Temp: 97.8 ??F (36.6 ??C) Temp src: Oral BP: 114/78 Pulse: 75 Resp: 16 SpO2: 96 % O2 Device: None (Room air) Weight: 148 lbs 0 oz General: Very pleasant female , NAD Respiratory: Normal work of breathing. Musculoskeletal: Moving all extremities appropriately. Skin: No rashes or abrasions on exposed skin. Neurologic: Alert. No gross focal deficits. Psychologic: Appropriate mood and affect. Medical Decision Making 50 MINUTES SPENT BY ME on the date of service doing chart review, history, exam, documentation & further activities per the note. Data I have personally reviewed the following data over the past 24 hrs: 13.4 (H) \ 13.3 / 253 137 100 20.2 / 121 (H) 4.6 29 1.07 (H) \ Procal: N/A CRP: 20.60 (H) Lactic Acid: N/A * Gurjit Foy MD - 12/06/2023 5:34 PM CDT Images from the original note were not included. GASTROENTEROLOGY PROGRESS NOTE IMPRESSION: Crohn's disease-new short segment of ileitis on December 02 MR enterography with multiple prominent dilated small bowel loops without inflammation or transition point suggestive of ileus. Colon normal. CT scan did show mild wall thickening mucosal enhancement of the colon. No longer has diarrhea. Symptoms continued on IV steroids. She was given Remicade 10 mg/kg dose yesterday. No improvement yet. RECOMMENDATIONS: -Continue low fiber diet - We will follow-up with patient on Friday - It can take a couple of days after Remicade infusion to see full results - Continue IV steroids - Follow-up in [facility] IBD clinic with Dr. Juan who manages the patient's IBD. Gurjit Foy MD [facility] - [facility] [phone] SUBJECTIVE: Patient reports she still having abdominal pain, does not feel improvement yet. OBJECTIVE: BP 130/85 (BP Location: Left arm) Pulse 68 Temp 97.7 ??F (36.5 ??C) (Oral) Resp 18 Ht 1.6 m(5' 3) Wt 67.1 kg (148 lb) SpO2 95% BMI 26.22 kg/m?? Temp (24hrs), Av.8 ??F (36.6 ??C), Min:97.7 ??F (36.5 ??C), Max:97.9 ??F (36.6 ??C) Patient Vitals for the past 72 hrs: Weight 12/06/23 1348 67.1 kg (148 lb) PHYSICAL EXAM GEN: Alert, NAD. HRT: reg LUNGS: CTA ABD: +BS, moderate right-sided tender, non-distended, no rebound or guarding. Additional Data: I have reviewed the patient's new clinical lab results: Recent Labs Lab Test 12/03/23 0720 12/01/23 0701 11/30/23 0706 WBC 13.6* 7.8 10.5 HGB 13.5 11.9 12.7 MCV 89 89 90 PLT 241 229 251 Recent Labs Lab Test 12/06/23 0602 12/05/23 0743 12/04/23 0653 12/03/23 0720 12/02/23 0745 12/01/23 0701 11/30/23 1348 11/30/23 0706 NA -- -- -- 138 -- 142 -- 142 POTASSIUM 4.8 4.9 4.9 4.8 < > 4.3 < > 5.4* CHLORIDE -- -- -- 105 -- 107 -- 107 CO2 -- -- -- 22 -- 26 -- 29 BUN -- -- -- 25.2* -- 13.2 -- 12.3 CR -- -- -- 0.98* -- 0.95 -- 0.91 ANIONGAP -- -- -- 11 -- 9 -- 6* DAJA -- -- -- 8.5* -- 8.6* -- 9.0 GLC -- -- -- 118* -- 100* -- 100* < > = values in this interval not displayed. Recent Labs Lab Test 12/06/23 0140 11/29/23 1528 11/29/23 1526 09/23/23 0816 09/22/23 1823 09/22/23 1801 06/16/23 1750 06/16/23 1737 03/31/23 1717 03/31/23 1608 ALBUMIN -- 4.7 -- 3.9 4.5 -- < > 4.7 -- 3.9 BILITOTAL -- 0.3 -- 0.6 0.7 -- < > 0.4 -- 0.3 ALT -- 13 -- 11 15 -- < > 15 -- 28 AST -- 17 -- 16 15 -- < > 24 -- 29 PROTEIN Negative -- Negative -- -- Negative < > -- < > -- LIPASE -- -- -- -- -- -- -- 27 -- 56 < > = values in this interval not displayed. * Cathy Childers DO - 12/06/2023 4:[address] [facility] Medicine Progress Note - Hospitalist Service Date of Admission: 11/29/2023 Assessment & Plan Summary of Stay: Hortensia Buitrago is a 63 year old female with a history of Crohn's disease admittedon 11/29/2023 with abdominal pain. In the emergency department, the patient found to have a BUN/creatinine 13.0/1.02, glucose 111, WBC 8.9. Urinalysis was negative for signs of infection. CT abdomen and pelvis showed mild wall thickening and mucosal hyperenhancement of the colon suggestive of mild infectious colitis. The patient was started on IV Solu-Medrol with concern for Crohn's flare. Gastroenterology was consulted to see the patient. TODAY'S PLAN: -received dose of her Remicade here in the hospital -Remain on low fiber diet as tolerated -Continue with aggressive bowel regimen -Remain on IV steroids and defer to GI service Problem List: Acute Intractable Abdominal Pain Crohn's Flare - Appreciate GI recommendations - On infliximab, last dose was 11/05. Outpatient GI has been increasing frequency and dose of infliximab as her symptoms improve initially but wears off ~ 4 weeks - IV solumedrol - Pain control - CMV IgM/IgG pending - CRP <3 upon arrival, increasing, will continue to trend Acute Kidney Injury - Baseline Cr = 0.8-0.9 -Stable creatinine, currently at normal levels Mild Hyperkalemia -Resolved Diet: Combination Diet Regular Diet Adult Snacks/Supplements Adult: Other; any diet appropriate oral nutritional supplements; Between Meals DVT Prophylaxis: Pneumatic Compression Devices and Ambulate every shift Uirbe Catheter: Not present Lines: None Cardiac Monitoring: None Code Status: Full Code Clinically Significant Risk Factors # Overweight: Estimated body mass index is 26.22 kg/m?? as calculated from the following: Height as of this encounter: 1.6 m (5' 3). Weight as of this encounter: 67.1 kg (148 lb). Disposition Plan Cathy Childers DO Hospitalist Service [facility] Securely message with [employer] (more info) Text page via [facility] Paging/Directory Interval History Initially better this AM, able to ambulate but now worsening of periumbilical pain/rlq pain 9/10. Physical Exam Vital Signs: Temp: 97.7 ??F (36.5 ??C) Temp src: Oral BP: 103/63 Pulse: 68 Resp: 18 SpO2: 93 % O2 Device: None (Room air) Weight: 148 lbs 0 oz General: Very pleasant female , NAD Respiratory: Normal work of breathing. GI: Abdomen soft, significantly tender RLQ/midline Musculoskeletal: Moving all extremities appropriately. Skin: No rashes or abrasions on exposed skin. Neurologic: Alert. No gross focal deficits. Psychologic: Appropriate mood and affect. Medical Decision Making 52 MINUTES SPENT BY ME on the date of service doing chart review, history, exam, documentation & further activities per the note. Data I have personally reviewed the following data over the past 24 hrs: N/A \ N/A / N/A N/A N/A N/A / N/A 4.8 N/A N/A \ Procal: N/A CRP: 36.31 (H) Lactic Acid: N/A * Deidra Ramirez, BERNARDINO, LD - 12/05/2023 1:24 PM CDT CLINICAL NUTRITION SERVICES - ASSESSMENT NOTE Recommendations Ordered by Registered Dietitian (RD): Diet per MD Ordered oral nutritional supplements PRN Malnutrition: % Weight Loss: None noted % Intake: Decreased intake does not meet criteria for malnutrition - 6 days of <75% of nutritional needs Subcutaneous Fat Loss: None observed Muscle Loss: None observed Fluid Retention: trace Malnutrition Diagnosis: Patient does not meet two of the above criteria necessary for diagnosing malnutrition - at risk for developing malnutrition REASON FOR ASSESSMENT Hortensia Buitrago is a 63 year old female seen by Registered Dietitian for LOS Past medical history: Chron's disease Admitted for: Acute Exacerbation of Chron's Disease Acute Kidney Injury NUTRITION HISTORY - Information obtained from patient and chart - Typical food/fluid intake SPOOL CLEANER HAND: pt reports a good appetite at home, no recent changes. - Supplements: none - has tried in the past during her last admission - Food allergies: NKFA CURRENT NUTRITION ORDERS Diet Order: Regular Diet Current Intake/Tolerance: Upon review of the flowsheets, pt is consuming 25-100% of meals ordered. Ordering 2-3 meals per day. Pt endorses pain and constipation as largest barriers to PO intake. Obtained from Chart/Interdisciplinary Team: - GI following - Reviewed stooling patterns - Please refer to flowsheets for more information on skin ANTHROPOMETRICS Height: 5' 3 Weight: 71.1 kg ( 156 lbs 11.95 oz) Body mass index is 27.77 kg/m??. Weight Status: Overweight BMI 25-29.9 Weight History: weight fairly stable, even increased. Patient reports that her weight fluctuates by5-6 lbs. Wt Readings from Last 10 Encounters: 12/03/23 71.1 kg (156 lb 12 oz) 09/23/23 70.5 kg (155 lb 8 oz) 06/19/23 69.3 kg (152 lb 12.5 oz) 03/31/23 67.6 kg (149 lb) 03/25/23 70.8 kg (156 lb 1.6 oz) 02/21/23 64.7 kg (142 lb 11.2 oz) LABS Labs reviewed Labs: Electrolytes Potassium (mmol/L) Date Value 12/05/2023 4.9 12/04/2023 4.9 12/03/2023 4.8 Phosphorus (mg/dL) Date Value 02/23/2023 2.8 02/22/2023 3.5 02/21/2023 3.8 Blood Glucose Glucose (mg/dL) Date Value 12/03/2023 118 (H) 12/01/2023 100 (H) 11/30/2023 100 (H) 11/29/2023 111 (H) 09/23/2023 133 (H) GLUCOSE BY METER POCT (mg/dL) Date Value 03/21/2023 107 (H) Inflammatory Markers WBC Count (10e3/uL) Date Value 12/03/2023 13.6 (H) 12/01/2023 7.8 11/30/2023 10.5 Albumin (g/dL) Date Value 11/29/2023 4.7 09/23/2023 3.9 09/22/2023 4.5 Magnesium (mg/dL) Date Value 12/05/2023 2.5 (H) 12/04/2023 2.3 12/03/2023 2.5 (H) Sodium (mmol/L) Date Value 12/03/2023 138 12/01/2023 142 11/30/2023 142 Renal Urea Nitrogen (mg/dL) Date Value 12/03/2023 25.2 (H) 12/01/2023 13.2 11/30/2023 12.3 Creatinine (mg/dL) Date Value 12/03/2023 0.98 (H) 12/01/2023 0.95 11/30/2023 0.91 Additional Ketones Urine (mg/dL) Date Value 11/29/2023 Negative 11/30/2004 Negative MEDICATIONS Medications reviewed famotidine 20 mg Oral At Bedtime inFLIXimab 10 mg/kg Intravenous Once methylPREDNISolone 20 mg Intravenous Q8H montelukast 10 mg Oral At Bedtime nortriptyline 25 mg Oral At Bedtime pantoprazole 40 mg Oral QAM AC polyethylene glycol 17 g Oral Daily sodium chloride (PF) 3 mL Intracatheter Q8H traZODone 200 mg Oral At Bedtime acetaminophen OR acetaminophen, bisacodyl, calcium carbonate, HYDROmorphone, HYDROmorphone, hydrOXYzine HCl OR hydrOXYzine HCl, lidocaine 4%, lidocaine (buffered or not buffered), naloxone OR naloxone OR naloxone OR naloxone, ondansetron OR ondansetron, senna-docusate ORsenna-docusate, simethicone, sodium chloride (PF) ASSESSED NUTRITION NEEDS PER APPROVED PRACTICE GUIDELINES: Dosing Weight 71.1 kg Estimated Energy Needs: 9446-2324 kcals (25-30 Kcal/Kg) Justification: maintenance Estimated Protein Needs: 71-85 grams protein (1-1.2 g pro/Kg) Justification: maintenance Estimated Fluid Needs: per MD NUTRITION DIAGNOSIS: Inadequate oral intake related to altered GI function, constipation and pain as evidenced by patient likely consuming <75% of nutritional needs over the past 6 days NUTRITION INTERVENTIONS Recommendations / Nutrition Prescription Diet per MD Ordered oral nutritional supplements PRN Implementation Nutrition education: Provided education on the different oral nutritional supplements offered + indications for use. Patient would like to be able to order PRN. Encouraged food from home Medical Food Supplement: as above Nutrition Goals Patient to consume 75% of meals or oral nutritional supplements ordered TID MONITORING AND EVALUATION: Progress towards goals will be monitored and evaluated per protocol and Practice Guidelines Deidra Ramirez, BERNARDINO, LD Clinical Dietitian 3rd floor/ICU: [phone] All other floors: [phone] Weekend/holiday: [phone] Office: [phone] * Alisa Norman PA-C - 12/05/2023 12:48 PM CDT Images from the original note were not included. GASTROENTEROLOGY PROGRESS NOTE SUBJECTIVE: Abdominal pain persists. IV steroids helping. Not much stool output despite suppository/senna, miralax. Had a few pebble like small stools yesterday after suppository. Mild nausea now. Novomiting. Tolerated a banana for breakfast. OBJECTIVE: BP 115/74 (BP Location: Right arm) Pulse 77 Temp 98.1 ??F (36.7 ??C) (Oral) Resp 18 Ht 1.6 m (5' 3) Wt 71.1 kg (156 lb 12 oz) SpO2 95% BMI 27.77 kg/m?? Temp (24hrs), Av.8 ??F (36.6 ??C), Min:97.6 ??F (36.4 ??C), Max:98 ??F (36.7 ??C) Patient Vitals for the past 72 hrs: Weight 12/03/23 1200 71.1 kg (156 lb 12 oz) Intake/Output Summary (Last 24 hours) at 12/04/2023 1600 Last data filed at 12/04/2023 1500 Gross per 24 hour Intake 2069 ml Output -- Net 2069 ml PHYSICAL EXAM Gen: alert, oriented, NAD Abd: soft, hypoactive BS, nondistended, moderate tenderness RLQ and LUQ. No rebound or guarding. Additional Comments: ROS, FH, SH: See initial GI consult for details. I have reviewed the patient's new clinical lab results: Recent Labs Lab Test 12/03/23 0720 12/01/23 0701 11/30/23 0706 WBC 13.6* 7.8 10.5 HGB 13.5 11.9 12.7 MCV 89 89 90 PLT 241 229 251 Recent Labs Lab Test 12/05/23 0743 12/04/23 0653 12/03/23 0720 12/02/23 0745 12/01/23 0701 11/30/23 1348 11/30/23 0706 POTASSIUM 4.9 4.9 4.8 < > 4.3 < > 5.4* CHLORIDE -- -- 105 -- 107 -- 107 CO2 -- -- 22 -- 26 -- 29 BUN -- -- 25.2* -- 13.2 -- 12.3 ANIONGAP -- -- 11 -- 9 -- 6* < > = values in this interval not displayed. Recent Labs Lab Test 11/29/23 1528 11/29/23 1526 09/23/23 0816 09/22/23 1823 09/22/23 1801 08/07/23 1726 06/16/23 1750 06/16/23 1737 03/31/23 1717 03/31/23 1608 ALBUMIN 4.7 -- 3.9 4.5 -- -- < > 4.7 -- 3.9 BILITOTAL 0.3 -- 0.6 0.7 -- -- < > 0.4 -- 0.3 ALT 13 -- 11 15 -- -- < > 15 -- 28 AST 17 -- 16 15 -- -- < > 24 -- 29 PROTEIN -- Negative -- -- Negative Negative < > -- < > -- LIPASE -- -- -- -- -- -- -- 27 -- 56 < > = values in this interval not displayed. Assessment: 63-year-old female diagnosed with Crohn's disease in 2022 who underwent a ileocecectomy for fibrostenotic disease currently on Remicade monotherapy presenting with diarrhea and severe abdominal pain.CT scan showed mild wall thickening and mucosal hyperenhancement of the colon. 1. Crohn's ileitis. CT scan does not show any obstruction. No evidence of stricture or fistula. There was some mild wall thickening and mucosal hyperenhancement of the colon. Now diarrhea has stoppedand C diff/enteric panel not able to be collected. On 11/13 C diff was negative and fecal calprotectin was close to normal at 54 (normal <49). Remicade dosing decreased from 10mg/kg every 8 weeks toevery 6 weeks with last infusion 11/05 (~4 weeks ago) prior to presentation. 12/02 MRE shows new short segment of ileitis, multiple prominent/dilated small bowel loops without inflammation or transition point suggestive of ileus, normal colon other than large amount stools. Had minimal output with suppository, senna. 12/03 No stools, ongoing pain. Suspect a portion of the pain is related to active Crohn's but ileus/constipation could be contributing. Patient is trying to minimize narcotics. Discussed patient with IBD MD Dr. Juan from our office. He is in agreement that we give Remicade inpatient and see if this helps. He will look into insurance approval for every 4 week dosing and have her follow up with him outpatient before her next scheduled dose. 12/04 Discussed dose of Remicade now in the hospital. Patient was in agreement with this plan. Getting enema today due to minimal stooling. 2. Renal cell carcinoma s/p right nephrectomy in 2008, CKD. Creatinine 0.98 on 12/02. Plan: --Remicade 10mg/kg today. --Our office inquiring with insurance on increasing dose frequency of Remicade outpatient to every 4 weeks. --Continue low fiber diet as tolerated. --Continue Miralax daily, dulcolax suppository daily prn, and Senna/colace 2 pills BID. --We will see how Remicade goes. May need more aggressive bowel meds ie prep to clear colon. --Continue IV steroids. --Our office will arrange outpatient IBD follow up with Dr. Juan in a couple weeks. Patient was reviewed with Dr. Schneider. Time spent: 40 minutes, greater than 50% of the visit was spent in counseling/coordination of care. Alisa Norman, CAROLYNN [facility] ([facility]) * Peggy Jara RN - 12/05/2023 12:37 PM CDT PRN tap water enema given. Patient tolerated well. * Valdez Gallardo MD - 12/05/2023 11:[address] [facility] Medicine Progress Note - Hospitalist Service Date of Admission: 11/29/2023 Assessment & Plan Summary of Stay: Hortensia Buitrago is a 63 year old female with a history of Crohn's disease admittedon 11/29/2023 with abdominal pain. In the emergency department, the patient found to have a BUN/creatinine 13.0/1.02, glucose 111, WBC 8.9. Urinalysis was negative for signs of infection. CT abdomen and pelvis showed mild wall thickening and mucosal hyperenhancement of the colon suggestive of mild infectious colitis. The patient was started on IV Solu-Medrol with concern for Crohn's flare. Gastroenterology was consulted to see the patient. TODAY'S PLAN: -We appreciate continuous input from [place] [facility]. -GI contemplating in administering a dose of her Remicade here in the hospital -Remain on low fiber diet as tolerated -Continue with aggressive bowel regimen -May need to pursue enema if no decent and satisfying bowel movement - agreeable for tap water enema if needed -Remain on IV steroids and defer to GI service -Check UA -Earlier and continue to reinforce minimizing narcotics if able as this can worsen ongoing constipation Problem List: Acute Intractable Abdominal Pain Crohn's Flare - Appreciate GI recommendations - On infliximab, last dose was 11/05. Outpatient GI has been increasing frequency and dose of infliximab as her symptoms improve initially but only last about 1.5 weeks - IV solumedrol - Enteric panel and cdif pcr pending - Pain control - CMV IgM/IgG pending - CRP <3 upon arrival. Trend CRP Acute Kidney Injury - Baseline Cr = 0.8-0.9 -Stable creatinine, currently at normal levels Mild Hyperkalemia -Resolved Diet: Combination Diet Regular Diet Adult DVT Prophylaxis: Pneumatic Compression Devices and Ambulate every shift Uribe Catheter: Not present Lines: None Cardiac Monitoring: None Code Status: Full Code Clinically Significant Risk Factors # Overweight: Estimated body mass index is 27.77 kg/m?? as calculated from the following: Height as of this encounter: 1.6 m (5' 3). Weight as of this encounter: 71.1 kg (156 lb 12 oz). Disposition Plan Expected Discharge Date: To be determined. Awaiting resumption of bowel function, resolution of constipation and improvement with her abdominal symptomatology of pain, discomfort and nausea. Valdez Gallardo MD, MD Hospitalist Service [facility] Securely message with [employer] (more info) Text page via [facility] [employer] Paging/Directory Interval History Continuing medicine service care for this pleasant lady whom I met this morning while she is layingcomfortably in bed. Nursing reported that patient is having some abdominal discomfort also during urination -No reports of any vomiting this morning -Stable hemodynamics Physical Exam Vital Signs: Temp: 98.1 ??F (36.7 ??C) Temp src: Oral BP: 115/74 Pulse: 77 Resp: 18 SpO2: 95 % O2 Device: None (Room air) Weight: 156 lbs 11.95 oz HEENT; Atraumatic, normocephalic, pinkish conjuctiva, pupils bilateral reactive Skin: warm and moist, no rashes Lymphatics: no cervical or axillary lymphandenopathy Lungs: equal chest expansion, clear to auscultation, no wheezes, no stridor, no crackles, Heart: normal rate, normal rhythm, no rubs or gallops. Abdomen: normal bowel sounds, some epigastric tenderness upon palpation, no guarding, no peritonealsigns Extremities: no deformities, no edema Neuro; follow [...] past 24 hrs: N/A \ N/A / N/A N/A N/A N/A / N/A 4.9 N/A N/A \ Procal: N/A CRP: 19.09 (H) Lactic Acid: N/A Imaging results reviewed over the past 24 hrs: No results found for this or any previous visit (from the past 24 hour(s)). * Emerson Alisamadi Andrews PA-C - 12/04/2023 4:00 PM CDT Images from the original note were not included. GASTROENTEROLOGY PROGRESS NOTE SUBJECTIVE: Abdominal pain persists. IV steroids helping. Had a few small stools with suppository yesterday. No stools with Miralax/Senna today, just had dulcolax suppository. No flatus. Mild nausea.No vomiting. Tolerating small amounts of low fiber diet. Minimizing narcotics but difficult due to the degree of pain intermittently. Only 1 dose of IV dilaudid today. OBJECTIVE: BP 135/82 Pulse 81 Temp 98 ??F (36.7 ??C) (Oral) Resp 15 Ht 1.6 m (5' 3) Wt 71.1 kg (156lb 12 oz) SpO2 97% BMI 27.77 kg/m?? Temp (24hrs), Av.8 ??F (36.6 ??C), Min:97.6 ??F (36.4 ??C), Max:98 ??F (36.7 ??C) Patient Vitals for the past 72 hrs: Weight 12/03/23 1200 71.1 kg (156 lb 12 oz) Intake/Output Summary (Last 24 hours) at 12/04/2023 1600 Last data filed at 12/04/2023 1500 Gross per 24 hour Intake 2069 ml Output -- Net 2069 ml PHYSICAL EXAM Gen: alert, oriented, NAD Abd: soft, hypoactive BS, nondistended, moderate tenderness RLQ and LUQ. No rebound or guarding. Additional Comments: ROS, FH, SH: See initial GI consult for details. I have reviewed the patient's new clinical lab results: Recent Labs Lab Test 12/03/23 0720 12/01/23 0701 11/30/23 0706 WBC 13.6* 7.8 10.5 HGB 13.5 11.9 12.7 MCV 89 89 90 PLT 241 229 251 Recent Labs Lab Test 12/04/23 0653 12/03/23 0720 12/02/23 0745 12/01/23 0701 11/30/23 1348 11/30/23 0706 POTASSIUM 4.9 4.8 4.2 4.3 < > 5.4* CHLORIDE -- 105 -- 107 -- 107 CO2 -- 22 -- 26 -- 29 BUN -- 25.2* -- 13.2 -- 12.3 ANIONGAP -- 11 -- 9 -- 6* < > = values in this interval not displayed. Recent Labs Lab Test 11/29/23 1528 11/29/23 1526 09/23/23 0816 09/22/23 1823 09/22/23 1801 08/07/23 1726 06/16/23 1750 06/16/23 1737 03/31/23 1717 03/31/23 1608 ALBUMIN 4.7 -- 3.9 4.5 -- -- < > 4.7 -- 3.9 BILITOTAL 0.3 -- 0.6 0.7 -- -- < > 0.4 -- 0.3 ALT 13 -- 11 15 -- -- < > 15 -- 28 AST 17 -- 16 15 -- -- < > 24 -- 29 PROTEIN -- Negative -- -- Negative Negative < > -- < > -- LIPASE -- -- -- -- -- -- -- 27 -- 56 < > = values in this interval not displayed. Assessment: 63-year-old female diagnosed with Crohn's disease in 2022 who underwent a ileocecectomy for fibrostenotic disease currently on Remicade monotherapy presenting with diarrhea and severe abdominal pain.CT scan showed mild wall thickening and mucosal hyperenhancement of the colon. 1. Crohn's ileitis. CT scan does not show any obstruction. No evidence of stricture or fistula. There was some mild wall thickening and mucosal hyperenhancement of the colon. Now diarrhea has stoppedand C diff/enteric panel not able to be collected. On 11/13 C diff was negative and fecal calprotectin was close to normal at 54 (normal <49). Remicade dosing decreased from 10mg/kg every 8 weeks toevery 6 weeks with last infusion 11/05 (~4 weeks ago) prior to presentation. 12/02 MRE shows new short segment of ileitis, multiple prominent/dilated small bowel loops without inflammation or transition point suggestive of ileus, normal colon other than large amount stools. Had minimal output with suppository, senna. 12/03 No stools, ongoing pain. Suspect a portion of the pain is related to active Crohn's but ileus/constipation could be contributing. Patient is trying to minimize narcotics. Discussed patient with IBD MD Dr. Juan from our office. He is in agreement that we give Remicade inpatient and see if this helps. He will look into insurance approval for every 4 week dosing and have her follow up with him outpatient before her next scheduled dose. 2. Renal cell carcinoma s/p right nephrectomy in 2008, CKD. Creatinine 0.98 on 12/02. Plan: --Will discuss a dose of Remicade inpatient with patient tomorrow. --Continue low fiber diet as tolerated. --Recommended enema but patient was hesitant. It is ordered prn and I encouraged her to try it if no results today. --Continue Miralax daily and Senna/colace 2 pills BID. --Continue IV steroids. Patient was reviewed with Dr. Schneider. Time spent: 40 minutes, greater than 50% of the visit was spent in counseling/coordination of care. CAROLYNN Gibbs [facility] ([facility]) * Valdez Gallardo MD - 12/04/2023 11:11 AM CDT [facility] Medicine Progress Note - Hospitalist Service Date of Admission: 11/29/2023 Assessment & Plan Summary of Stay: Hortensia Buitrago is a 63 year old female with a history of Crohn's disease admittedon 11/29/2023 with abdominal pain. In the emergency department, the patient found to have a BUN/creatinine 13.0/1.02, glucose 111, WBC 8.9. Urinalysis was negative for signs of infection. CT abdomen and pelvis showed mild wall thickening and mucosal hyperenhancement of the colon suggestive of mild infectious colitis. The patient was started on IV Solu-Medrol with concern for Crohn's flare. Gastroenterology was consulted to see the patient. TODAY'S PLAN: -We appreciate continuous input from [facility]. -Enteric panel has been discontinued since she has been in the hospital for more than 3 days now MR enterography did show findings of-distal ileum inflammation likely from Crohn's Concerning for ileus and constipation -Bowel regimen added currently with stool softeners, MiraLAX and Dulcolax -Had some small stooling yesterday -Requesting for repeat Dulcolax suppository, hopeful to defer enema if able -Agreeing in minimizing IV narcotics -Will provide with IV Pepcid this morning due to complaints of epigastric discomfort and intermittent nausea If no significant improvement GI considering also pursuing an enema -Reportedly able to demonstrate some stooling earlier -Diet changed to liquid diet. -Minimize narcotics if able as this can also worsen and a big risk factor for underlying constipation -Remain on IV corticosteroids currently on every 8 hours. Will await further plans or modificationsfrom GI service Problem List: Acute Intractable Abdominal Pain Crohn's Flare - Appreciate GI recommendations - On infliximab, last dose was 11/05. Outpatient GI has been increasing frequency and dose of infliximab as her symptoms improve initially but only last about 1.5 weeks - IV solumedrol - Enteric panel and cdif pcr pending - Pain control - CMV IgM/IgG pending - CRP <3 upon arrival. Trend CRP Acute Kidney Injury - Baseline Cr = 0.8-0.9 -Stable creatinine, currently at normal levels Mild Hyperkalemia -Resolved Diet: Combination Diet Regular Diet Adult DVT Prophylaxis: Pneumatic Compression Devices and Ambulate every shift Uribe Catheter: Not present Lines: None Cardiac Monitoring: None Code Status: Full Code Clinically Significant Risk Factors # Overweight: Estimated body mass index is 27.77 kg/m?? as calculated from the following: Height as of this encounter: 1.6 m (5' 3). Weight as of this encounter: 71.1 kg (156 lb 12 oz). Disposition Plan Expected Discharge Date: To be determined. Awaiting resumption of bowel function, resolution of constipation and improvement with her abdominal symptomatology of pain, discomfort and nausea. Valdez Gallardo MD, MD Hospitalist Service [facility] Securely message with Vocera (more info) Text page via [facility] Paging/Directory Interval History Continuing medicine service care for this pleasant lady whom I met this morning while she is layingcomfortably in bed. -She mentions some improvement earlier with some small stooling yesterday -However this morning she started to have some episodes of epigastric discomfort but no vomiting -Not requiring any oxygen support Remained afebrile. Physical Exam Vital Signs: Temp: 97.6 ??F (36.4 ??C) Temp src: Oral BP: 111/75 Pulse: 83 Resp: 14 SpO2: 95 % O2 Device: None (Room air) Weight: 156 lbs 11.95 oz HEENT; Atraumatic, normocephalic, pinkish conjuctiva, pupils bilateral reactive Skin: warm and moist, no rashes Lymphatics: no cervical or axillary lymphandenopathy Lungs: equal chest expansion, clear to auscultation, no wheezes, no stridor, no crackles, Heart: normal rate, normal rhythm, no rubs or gallops. Abdomen: normal bowel sounds, some epigastric tenderness upon palpation, no guarding, no peritonealsigns Extremities: no deformities, no edema Neuro; follow commands, alert and oriented x3, spontaneous speech, coherent, moves all extremities spontaneously Psych; no hallucination, euthymic mood, not agitated Medical Decision Making 35 MINUTES SPENT BY ME on the date of service doing chart review, history, exam, documentation & further activities per the note. MANAGEMENT DISCUSSED with the following over the past 24 hours: Yes NOTE(S)/MEDICAL RECORDS REVIEWED over the past 24 hours: Yes Data I have personally reviewed the following data over the past 24 hrs: N/A \ N/A / N/A N/A N/A N/A / N/A 4.9 N/A N/A \ Procal: N/A CRP: 21.12 (H) Lactic Acid: N/A Imaging results reviewed over the past 24 hrs: No results found for this or any previous visit (from the past 24 hour(s)). * Valdez Gallardo MD - 12/03/2023 12:24 PM CDT [facility] Medicine Progress Note - Hospitalist Service Date of Admission: 11/29/2023 Assessment & Plan Summary of Stay: Hortensia Buitrago is a 63 year old female with a history of Crohn's disease admittedon 11/29/2023 with abdominal pain. In the emergency department, the patient found to have a BUN/creatinine 13.0/1.02, glucose 111, WBC 8.9. Urinalysis was negative for signs of infection. CT abdomen and pelvis showed mild wall thickening and mucosal hyperenhancement of the colon suggestive of mild infectious colitis. The patient was started on IV Solu-Medrol with concern for Crohn's flare. Gastroenterology was consulted to see the patient. TODAY'S PLAN: -We appreciate continuous input from [place] [facility] -Enteric panel has been discontinued since she has been in the hospital for more than 3 days now MR enterography did show findings of-distal ileum inflammation likely from Crohn's Concerning for ileus and constipation -Bowel regimen added currently with stool softeners, MiraLAX and Dulcolax If no significant improvement GI considering also pursuing an enema -Diet changed to liquid diet. -Minimize narcotics if able as this can also worsen and a big risk factor for underlying constipation -Remain on IV corticosteroids currently on every 8 hours Problem List: Acute Intractable Abdominal Pain Crohn's Flare - Appreciate GI recommendations - On infliximab, last dose was 11/05. Outpatient GI has been increasing frequency and dose of infliximab as her symptoms improve initially but only last about 1.5 weeks - IV solumedrol - Enteric panel and cdif pcr pending - Pain control - CMV IgM/IgG pending - CRP <3 upon arrival. Trend CRP Acute Kidney Injury - Baseline Cr = 0.8-0.9 -Stable creatinine, currently at normal levels Mild Hyperkalemia -Resolved Diet: Combination Diet Regular Diet Adult DVT Prophylaxis: Pneumatic Compression Devices and Ambulate every shift Uribe Catheter: Not present Lines: None Cardiac Monitoring: None Code Status: Full Code Clinically Significant Risk Factors # Overweight: Estimated body mass index is 26.36 kg/m?? as calculated from the following: Height as of this encounter: 1.6 m (5' 3). Weight as of this encounter: 67.5 kg (148 lb 13 oz)., PRESENT ON ADMISSION Disposition Plan Expected Discharge Date: To be determined. Awaiting resumption of bowel function, resolution of constipation and improvement with her abdominal symptomatology of pain, discomfort and nausea. Valdez Gallardo MD, MD Hospitalist Service [facility] Securely message with Mangatar (more info) Text page via [facility] Paging/Directory Interval History Continuing medicine service care for this pleasant lady whom I met this morning while she is layingcomfortably in bed. She is still having some intermittent abdominal discomfort. No nausea or nausea or vomiting. Overnight still not feeling comfortable about her pain level. Ambulatory with no assistance. Still no bowel movement. Voiding freely. Not requiring oxygen support. Remained afebrile. Physical Exam Vital Signs: Temp: 97.6 ??F (36.4 ??C) Temp src: Oral BP: (!) 155/99 Pulse: 83 Resp: 16 SpO2: 99 % O2 Device: None (Room air) Weight: 148 lbs 12.97 oz HEENT; Atraumatic, normocephalic, pinkish conjuctiva, pupils bilateral reactive Skin: warm and moist, no rashes Lymphatics: no cervical or axillary lymphandenopathy Lungs: equal chest expansion, clear to auscultation, no wheezes, no stridor, no crackles, Heart: normal rate, normal rhythm, no rubs or gallops. Abdomen: normal bowel sounds, some epigastric tenderness upon palpation, no guarding, no peritonealsigns Extremities: no deformities, no edema Neuro; follow commands, alert and oriented x3, spontaneous speech, coherent, moves all extremities spontaneously Psych; no hallucination, euthymic mood, not agitated Medical Decision Making 40 MINUTES SPENT BY ME on the date of service doing chart review, history, exam, documentation & further activities per the note. MANAGEMENT DISCUSSED with the following over the past 24 hours: yes NOTE(S)/MEDICAL RECORDS REVIEWED over the past 24 hours: Yes Data I have personally reviewed the following data over the past 24 hrs: 13.6 (H) \ 13.5 / 241 138 105 25.2 (H) / 118 (H) 4.8 22 0.98 (H) \ Procal: N/A CRP: <3.00 Lactic Acid: N/A Imaging results reviewed over the past 24 hrs: Recent Results (from the past 24 hour(s)) MR Enterography w/o & wContrast Narrative MR ENTEROGRAPHY WITHOUT AND WITH CONTRAST 12/03/2023 [...] free fluid in the right lower quadrant. Impression IMPRESSION: 1. There is a short segment [...] appearance, and close follow-up is recommended. JOAQUÍN CAAL MD SYSTEM ID: [id number] * Hortensia Dominguez PA-C - 12/02/2023 1:40 PM CDT Images from the original note were not included. GASTROENTEROLOGY PROGRESS NOTE SUBJECTIVE: Worsening left lower quadrant abdominal pain. No bowel movement for the past 2 and halfdays. She is eating. No fever no chills. OBJECTIVE: BP 129/85 (BP Location: Left arm) Pulse 79 Temp 98.1 ??F (36.7 ??C) (Oral) Resp 16 Ht 1.6 m(5' 3) Wt 67.5 kg (148 lb 13 oz) SpO2 96% BMI 26.36 kg/m?? Temp (24hrs), Av ??F (36.7 ??C), Min:97.9 ??F (36.6 ??C), Max:98.1 ??F (36.7 ??C) Patient Vitals for the past 72 hrs: Weight 11/30/23 0318 67.5 kg (148 lb 13 oz) Intake/Output Summary (Last 24 hours) at 12/01/2023 1031 Last data filed at 12/01/2023 0800 Gross per 24 hour Intake 4297.67 ml Output -- Net 4297.67 ml PHYSICAL EXAM Constitutional: No distress, sitting up in bed looking comfortable Abdomen: Soft, nondistended, tenderness to light palpation of the left lower quadrant. Additional Comments: ROS, FH, SH: See initial GI consult for details. I have reviewed the patient's new clinical lab results: Recent Labs Lab Test 12/01/23 0701 11/30/23 0706 11/29/23 1528 WBC 7.8 10.5 8.9 HGB 11.9 12.7 13.6 MCV 89 90 90 PLT 229 251 276 Recent Labs Lab Test 12/02/23 0745 12/01/23 0701 11/30/23 1348 11/30/23 0706 11/29/23 1528 POTASSIUM 4.2 4.3 4.6 5.4* 4.4 CHLORIDE -- 107 -- 107 102 CO2 -- 26 -- 29 24 BUN -- 13.2 -- 12.3 13.0 ANIONGAP -- 9 -- 6* 12 Recent Labs Lab Test 11/29/23 1528 11/29/23 1526 09/23/23 0816 09/22/23 1823 09/22/23 1801 08/07/23 1726 06/16/23 1750 06/16/23 1737 03/31/23 1717 03/31/23 1608 ALBUMIN 4.7 -- 3.9 4.5 -- -- < > 4.7 -- 3.9 BILITOTAL 0.3 -- 0.6 0.7 -- -- < > 0.4 -- 0.3 ALT 13 -- 11 15 -- -- < > 15 -- 28 AST 17 -- 16 15 -- -- < > 24 -- 29 PROTEIN -- Negative -- -- Negative Negative < > -- < > -- LIPASE -- -- -- -- -- -- -- 27 -- 56 < > = values in this interval not displayed. ASSESSMENT/ PLAN Hortensia Buitrago is a 63-year-old female diagnosed with Crohn's disease in 2022 who underwent a ileocecectomy for fibrostenotic disease currently on Remicade monotherapy presenting with diarrhea and severe abdominal pain. Patient has been on prednisone as an outpatient without response in symptoms. 1. Crohn's disease: Diagnosis in [address] scan does not show any obstruction. No evidence of stricture or fistula. There was some mild wall thickening and mucosal hyperenhancement of the colon. This was suggestive of mild infectious colitis. C. difficile and fecal calprotectin were checked as an outpatient on 11/13. These were both negative/unremarkable. Fecal calprotectin was 54. MR enterography on September 23, 2023 did not show any signs of active inflammation. Patient has been struggling with these recurrent symptoms of abdominal pain and loose stool. She has been working with Dr. Juan ([facility]) at increasing her Remicade dose in addition to receiving more frequent infusions. He is recently received 10 mg/kg every 6 weeks. With her last infusion 3 weeks ago.Plans are in place to recheck Remicade drug levels. Pending results she may need to receive Remicade every 4 weeks. -- She does appear to be responding to the IV steroids, will change to every 8 hours -- Awaiting enteric stool panel. -- C. difficile negative on 11/13 at [facility] -- Will obtain MR enterography today given worsening abdominal pain to evaluate for continued colonic inflammation and possible small bowel inflammation. If MR enterography indicates colonic inflammation, would proceed with flexible sigmoidoscopy tomorrow. -- Can consider consulting pain management team if abdominal pain becomes difficult to control. Total time: 40 minutes of total time was spent providing patient care, including patient evaluation, reviewing documentation/test results, and circuit recorder. Discussed with Dr. Jennie Dominguez PA-C [facility] ( [facility]) * Valdez Gallardo MD - 12/02/2023 12:47 PM CDT [facility] Medicine Progress Note - Hospitalist Service Date of Admission: 11/29/2023 Assessment & Plan Summary of Stay: Hortensia Buitrago is a 63 year old female with a history of Crohn's disease admittedon 11/29/2023 with abdominal pain. In the emergency department, the patient found to have a BUN/creatinine 13.0/1.02, glucose 111, WBC 8.9. Urinalysis was negative for signs of infection. CT abdomen and pelvis showed mild wall thickening and mucosal hyperenhancement of the colon suggestive of mild infectious colitis. The patient was started on IV Solu-Medrol with concern for Crohn's flare. Gastroenterology was consulted to see the patient. TODAY'S PLAN: -We appreciate continuous input from [place] [facility] -Patient has no further diarrhea here. -Enteric panel -Ruled out for C. difficile recently -Ruled out for C. difficile recently last November 13 at [place] [facility] labs -Continued on IV Solu-Medrol currently at 20 mg every 12 hours -Will defer to GI regarding further plan in continuation of her Biologics -As needed antiemetics, as needed pain regimen Stop IV fluids as patient is now on regular diet Problem List: Acute Intractable Abdominal Pain Crohn's Flare - Appreciate GI recommendations - On infliximab, last dose was 11/05. Outpatient GI has been increasing frequency and dose of infliximab as her symptoms improve initially but only last about 1.5 weeks - IV solumedrol - Enteric panel and cdif pcr pending - Pain control - CMV IgM/IgG pending - CRP <3 upon arrival. Trend CRP Acute Kidney Injury - Baseline Cr = 0.8-0.9 -Stable creatinine, currently at normal levels Mild Hyperkalemia -Resolved Diet: Combination Diet Regular Diet Adult DVT Prophylaxis: Pneumatic Compression Devices and Ambulate every shift Uribe Catheter: Not present Lines: None Cardiac Monitoring: None Code Status: Full Code Clinically Significant Risk Factors # Overweight: Estimated body mass index is 26.36 kg/m?? as calculated from the following: Height as of this encounter: 1.6 m (5' 3). Weight as of this encounter: 67.5 kg (148 lb 13 oz)., PRESENT ON ADMISSION Disposition Plan Expected Discharge Date: 12/03/2023 Valdez Gallardo MD, MD Hospitalist Service [facility] Securely message with Mangatar (more info) Text page via [facility] Paging/Directory Interval History Continuing medicine service care for this pleasant lady whom I met this morning while she is layingcomfortably in bed. She appears to be getting frustrated with her clinical situation, due to intermittent nausea and recurrent abdominal discomfort. She mentioned that she was able to tolerate oral diet but later on started having some boring abdominal discomfort mostly at the lower quadrant area. Voiding freely. Passing flatus, no BM yet. Denies any bleeding tendencies. Not requiring oxygen support. Ambulatory with no assistance Physical Exam Vital Signs: Temp: 98.1 ??F (36.7 ??C) Temp src: Oral BP: 129/85 Pulse: 79 Resp: 16 SpO2: 96 % O2 Device: None (Room air) Weight: 148 lbs 12.97 oz HEENT; Atraumatic, normocephalic, pinkish conjuctiva, pupils bilateral reactive Skin: warm and moist, no rashes Lymphatics: no cervical or axillary lymphandenopathy Lungs: equal chest expansion, clear to auscultation, no wheezes, no stridor, no crackles, Heart: normal rate, normal rhythm, no rubs or gallops. Abdomen: normal bowel sounds, some epigastric tenderness upon palpation, no guarding, no peritonealsigns Extremities: no deformities, no edema Neuro; follow commands, alert and oriented x3, spontaneous speech, coherent, moves all extremities spontaneously Psych; no hallucination, euthymic mood, not agitated Medical Decision Making 35 MINUTES SPENT BY ME on the date of service doing chart review, history, exam, documentation & further activities per the note. MANAGEMENT DISCUSSED with the following over the past 24 hours: Yes NOTE(S)/MEDICAL RECORDS REVIEWED over the past 24 hours: Yes Data I have personally reviewed the following data over the past 24 hrs: N/A \ N/A / N/A N/A N/A N/A / N/A 4.2 N/A N/A \ Procal: N/A CRP: <3.00 Lactic Acid: N/A Imaging results reviewed over the past 24 hrs: No results found for this or any previous visit (from the past 24 hour(s)). * Valdez Gallardo MD - 12/01/2023 10:[address] [facility] Medicine Progress Note - Hospitalist Service Date of Admission: 11/29/2023 Assessment & Plan Summary of Stay: Hortensia Buitrago is a 63 year old female with a history of Crohn's disease admittedon 11/29/2023 with abdominal pain. In the emergency department, the patient found to have a BUN/creatinine 13.0/1.02, glucose 111, WBC 8.9. Urinalysis was negative for signs of infection. CT abdomen and pelvis showed mild wall thickening and mucosal hyperenhancement of the colon suggestive of mild infectious colitis. The patient was started on IV Solu-Medrol with concern for Crohn's flare. Gastroenterology was consulted to see the patient. TODAY'S PLAN: -We appreciate continuous input from [place] [facility] -Patient has no further diarrhea here. -GI wanting enteric stool panel -Ruled out for C. difficile recently -Ruled out for C. difficile recently last November 13 at [place] [facility] labs -Continued on IV Solu-Medrol currently at 20 mg every 12 hours -Will defer to GI regarding further plan in continuation of her Biologics -As needed antiemetics, as needed pain regimen Stop IV fluids as patient is now on regular diet Problem List: Acute Intractable Abdominal Pain Crohn's Flare - Appreciate GI recommendations - On infliximab, last dose was 11/05. Outpatient GI has been increasing frequency and dose of infliximab as her symptoms improve initially but only last about 1.5 weeks - IV solumedrol - Enteric panel and cdif pcr pending - Pain control - CMV IgM/IgG pending - CRP <3 upon arrival. Trend CRP Acute Kidney Injury - Baseline Cr = 0.8-0.9 -Stable creatinine, currently at normal levels Mild Hyperkalemia -Resolved Diet: Combination Diet Regular Diet Adult DVT Prophylaxis: Pneumatic Compression Devices and Ambulate every shift Uribe Catheter: Not present Lines: None Cardiac Monitoring: None Code Status: Full Code Clinically Significant Risk Factors Present on Admission # Hyperkalemia: Highest K = 5.4 mmol/L in last 2 days, will monitor as appropriate # Overweight: Estimated body mass index is 26.36 kg/m?? as calculated from the following: Height as of this encounter: 1.6 m (5' 3). Weight as of this encounter: 67.5 kg (148 lb 13 oz). Disposition Plan Expected Discharge Date: 12/03/2023 Valdez Gallardo MD, MD Hospitalist Service [facility] Securely message with Mangatar (more info) Text page via [facility] Paging/Directory Interval History I assumed medicine service care for this pleasant 63-year-old lady whom I met this morning while she is laying comfortably in bed. Reportedly she was able to tolerate regular diet earlier but in the last hour or so she starts having some nausea and shooting abdominal pain and discomfort. Denies anyshortness of breath, chest pain and no reported actual vomiting spells or any bleeding tendencies. No BM yet. No mental status changes. Remain afebrile and not requiring any oxygen support. Physical Exam Vital Signs: Temp: 98.1 ??F (36.7 ??C) Temp src: Oral BP: (!) 142/83 Pulse: 73 Resp: 16 SpO2: 98 % O2 Device: None (Room air) Weight: 148 lbs 12.97 oz HEENT; Atraumatic, normocephalic, pinkish conjuctiva, pupils bilateral reactive Skin: warm and moist, no rashes Lymphatics: no cervical or axillary lymphandenopathy Lungs: equal chest expansion, clear to auscultation, no wheezes, no stridor, no crackles, Heart: normal rate, normal rhythm, no rubs or gallops. Abdomen: normal bowel sounds, some epigastric tenderness upon palpation, no guarding, no peritonealsigns Extremities: no deformities, no edema Neuro; follow [...] following data over the past 24 hrs: 7.8 \ 11.9 / 229 142 107 13.2 / 100 (H) 4.3 26 0.95 \ Procal: N/A CRP: <3.00 Lactic Acid: N/A Imaging results reviewed over the past 24 hrs: No results found for this or any previous visit (from the past 24 hour(s)). * Hortensia Dominguez PA-C - 12/01/2023 10:31 AM CDT Images from the original note were not included. GASTROENTEROLOGY PROGRESS NOTE SUBJECTIVE: Continued abdominal discomfort with some radiation to her back. Controlled with pain medication. Patient has not had a bowel movement for 1 day. Typically she struggles with loose stool. No fever no chills. She is passing gas. OBJECTIVE: BP (!) 142/83 (BP Location: Right arm) Pulse 73 Temp 98.1 ??F (36.7 ??C) (Oral) Resp 16 Ht 1.6 m (5' 3) Wt 67.5 kg (148 lb 13 oz) SpO2 98% BMI 26.36 kg/m?? Temp (24hrs), Av ??F (36.7 ??C), Min:97.9 ??F (36.6 ??C), Max:98.1 ??F (36.7 ??C) Patient Vitals for the past 72 hrs: Weight 11/30/23 0318 67.5 kg (148 lb 13 oz) Intake/Output Summary (Last 24 hours) at 12/01/2023 1031 Last data filed at 12/01/2023 0800 Gross per 24 hour Intake 4297.67 ml Output -- Net 4297.67 ml PHYSICAL EXAM Constitutional: No distress, sitting up in bed looking comfortable Abdomen: Soft, nondistended, right and left lower quadrant discomfort to light palpation, no rebound. Additional Comments: ROS, FH, SH: See initial GI consult for details. I have reviewed the patient's new clinical lab results: Recent Labs Lab Test 12/01/23 0701 11/30/23 0706 11/29/23 1528 WBC 7.8 10.5 8.9 HGB 11.9 12.7 13.6 MCV 89 90 90 PLT 229 251 276 Recent Labs Lab Test 12/01/23 0701 11/30/23 1348 11/30/23 0706 11/29/23 1528 POTASSIUM 4.3 4.6 5.4* 4.4 CHLORIDE 107 -- 107 102 CO2 26 -- 29 24 BUN 13.2 -- 12.3 13.0 ANIONGAP 9 -- 6* 12 Recent Labs Lab Test 11/29/23 1528 11/29/23 1526 09/23/23 0816 09/22/23 1823 09/22/23 1801 08/07/23 1726 06/16/23 1750 06/16/23 1737 03/31/23 1717 03/31/23 1608 ALBUMIN 4.7 -- 3.9 4.5 -- -- < > 4.7 -- 3.9 BILITOTAL 0.3 -- 0.6 0.7 -- -- < > 0.4 -- 0.3 ALT 13 -- 11 15 -- -- < > 15 -- 28 AST 17 -- 16 15 -- -- < > 24 -- 29 PROTEIN -- Negative -- -- Negative Negative < > -- < > -- LIPASE -- -- -- -- -- -- -- 27 -- 56 < > = values in this interval not displayed. ASSESSMENT/ PLAN Hortensia Buitrago is a 63-year-old female diagnosed with Crohn's disease in 2022 who underwent a ileocecectomy for fibrostenotic disease currently on Remicade monotherapy presenting with diarrhea and severe abdominal pain. Patient has been on prednisone as an outpatient without response in symptoms. 1. Crohn's disease: Diagnosis in [address] scan does not show any obstruction. No evidence of stricture or fistula. There was some mild wall thickening and mucosal hyperenhancement of the colon. This was suggestive of mild infectious colitis. C. difficile and fecal calprotectin were checked as an outpatient on 11/13. These were both negative/unremarkable. Fecal calprotectin was 54. MR enterography on September 23, 2023 did not show any signs of active inflammation. Patient has been struggling with these recurrent symptoms of abdominal pain and loose stool. She [facility] at increasing her Remicade dose in addition to receiving more frequent infusions. He is recently received 10 mg/kg every 6 weeks. With her last infusion 3 weeks ago.Plans are in place to recheck Remicade drug levels. Pending results she may need to receive Remicade every 4 weeks. -- She does appear to be responding to the IV steroids ( solumedrol 20 mg q12) -- Awaiting enteric stool panel. -- C. difficile negative on 11/13 at [facility] -- Advance diet as tolerated. Total time: 40 minutes of total time was spent providing patient care, including patient evaluation, reviewing documentation/test results, and circuit recorder. Discussed with Dr. Jennie Dominguez PA-C [facility] ( [facility]) * Kai Su DO - 11/30/2023 1:00 PM CDT [facility] Hospitalist Progress Note Name: Hortensia Buitrago Provider: Kai Su DO Date of Service: 11/30/2023 Summary of Stay: Hortensia Buitrago is a 63 year old female with a history of Crohn's disease admittedon 11/29/2023 with abdominal pain. In the emergency department, the patient found to have a BUN/creatinine 13.0/1.02, glucose 111, WBC 8.9. Urinalysis was negative for signs of infection. CT abdomen and pelvis showed mild wall thickening and mucosal hyperenhancement of the colon suggestive of mild infectious colitis. The patient was started on IV Solu-Medrol with concern for Crohn's flare. Gastroenterology was consulted to see the patient. TODAY'S PLAN: Continue IV solumedrol and appreciate GI recommendations. Doubt infectious colitis. Has not had a BM yet today, but will try to get stool sample for cdif pcr and enteric panel. Continuepain control and added non-narcotic options to avoid any motility issues caused by narcotics. Monitor symptoms throughout the day today. Repeat potassium later today. Problem List: Acute Intractable Abdominal Pain Crohn's Flare - Appreciate GI recommendations - On infliximab, last dose was 11/05. Outpatient GI has been increasing frequency and dose of infliximab as her symptoms improve initially but only last about 1.5 weeks - IV solumedrol - Enteric panel and cdif pcr pending - Pain control - CMV IgM/IgG pending - CRP <3 upon arrival. Trend CRP Acute Kidney Injury - Baseline Cr = 0.8-0.9 - IVF - Daily BMP Mild Hyperkalemia - Recheck K at 1400 I spent 48 minutes in reviewing this patient's labs, imaging, medications, medical history. In addition time was spent interviewing the patient, communicating with family, and medical decision making. DVT Prophylaxis: Pneumatic Compression Devices Code Status: Full Code Diet: Combination Diet Regular Diet Adult Uribe Catheter: Not present Disposition: Expected discharge pending improvement in bowel function and abd pain. Family updated today: No Interval History Pt seen and examined. Pt reports ongoing lower abd and RUQ pain. No BM yet today. -Data reviewed today: I personally reviewed all new labs and imaging results over the last 24 hours. Physical Exam Temp: 97.5 ??F (36.4 ??C) Temp src: Oral BP: 132/80 Pulse: 68 Resp: 16 SpO2: 97 % O2 Device: None (Room air) Vitals: 11/30/23 0318 Weight: 67.5 kg (148 lb 13 oz) Vital Signs with Ranges Temp: [97.5 ??F (36.4 ??C)-98.5 ??F (36.9 ??C)] 97.5 ??F (36.4 ??C) Pulse: [67-99] 68 Resp: [16] 16 BP: (130-149)/(79-91) 132/80 SpO2: [96 %-99 %] 97 % No intake/output data recorded. GENERAL: No apparent distress. Awake, alert, and fully oriented. HEENT: Normocephalic, atraumatic. Extraocular movements intact. CARDIOVASCULAR: Regular rate and rhythm without murmurs or rubs. No S3. PULMONARY: Clear bilaterally. GASTROINTESTINAL: Soft, diffusely tender, non-distended. Bowel sounds hypoactive. EXTREMITIES: No cyanosis or clubbing. No edema. NEUROLOGICAL: CN 2-12 grossly intact, no focal neurological deficits. DERMATOLOGICAL: No rash, ulcer, bruising, nor jaundice. Medications sodium chloride 100 mL/hr at 11/30/23 0946 dicyclomine 20 mg Oral 4x Daily AC & HS famotidine 40 mg Oral At Bedtime methylPREDNISolone 20 mg Intravenous Q12H montelukast 10 mg Oral At Bedtime nortriptyline 25 mg Oral At Bedtime pantoprazole 40 mg Oral QAM AC sodium chloride (PF) 3 mL Intracatheter Q8H traZODone 200 mg Oral At Bedtime Data Laboratory: Recent Labs Lab 11/30/23 0706 11/29/23 1528 WBC 10.5 8.9 HGB 12.7 13.6 HCT 38.8 41.3 MCV 90 90 PLT 251 276 Recent Labs Lab 11/30/23 0706 11/29/23 1528 NA 142 138 POTASSIUM 5.4* 4.4 CHLORIDE 107 102 CO2 29 24 ANIONGAP 6* 12 GLC 100* 111* BUN 12.3 13.0 CR 0.91 1.02* GFRESTIMATED 70 61 DAJA 9.0 9.6 No results for input(s): CULT in the last 168 hours. Imaging: Recent Results (from the past 24 hour(s)) CT Abdomen Pelvis w Contrast Narrative EXAM: CT ABDOMEN PELVIS W CONTRAST LOCATION: [facility] DATE: 11/29/2023 INDICATION: Severe abd pain and [...] VASCULATURE: Normal. PELVIC ORGANS: Hysterectomy. MUSCULOSKELETAL: Normal. Impression IMPRESSION: 1. Mild wall thickening and mucosal hyperenhancement of the colon. This is suggestive of a mild infectious colitis. Kai Su DO [facility] [place] [address] Securely message with [employer] (more info) Text page via [facility] Paging/Directory 11/30/2023 documented in this encounter H&P Notes * Eusebio Zhang MD - 11/29/2023 6:17 PM CDT [facility] History and Physical - Hospitalist Service Date of Admission: 11/29/2023 Assessment & Plan Hortensia Buitrago is a 63 year old female with past medical history significant for Chron's disease who presented to [facility] on 11/29/2023 with 1 week history of profuse diarrhea. Acute Exacerbation of Chron's Disease She is now s/p ileocolic resection and has been maintained on Remicade infusions. Unfortunately, she did not initially respond to 8-week spacing of remicade and this was increased in frequency to every 6 weeks. She now presents with 1 week of profuse diarrhea not improved with oral steroids. CT abdo men/pelvis with mild wall thickening and mucosal hyperenhancement throughout the colon. She recently had a Cdiff test through [facility], but will repeat enteric panel here to rule out infectious colitis; she has no prior history of C.diff. Suspect this is Chron's flare and will treat with solumedrol fornow. -[facility] consulted, appreciate recommendations -Solumedrol 20mg IV Q12H -Enteric panel pending -CMV IgM/IgG pending Acute Kidney Injury Creatinine 1.02 on presentation, increased from prior baseline 0.9-0.85. Suspect due to mild hypovolemia in setting of profuse diarrhea. Providing IV fluids, and monitoring. Hypertension BP 130/91-149/85; suspect due to stress and/or mild hypovolemia. Is not on antihypertensives at home. Monitoring. Diet: Regular DVT Prophylaxis: Pneumatic Compression Devices Uribe Catheter: Not present Lines: None Cardiac Monitoring: None Code Status: Full Clinically Significant Risk Factors Present on Admission Disposition Plan Expected Discharge Date: 12/01/2023 Eusebio Zhang MD Hospitalist Service [facility] Securely message with [employer] (more info) Text page via [facility] Paging/Directory Chief Complaint Diarrhea History is obtained from the patient History of Present Illness Hortensia Buitrago is a 63 year old female with past medical history significant for Chron's disease who presented to [facility] on 11/29/2023 with 1 week history of profuse diarrhea. Hx of Chron's disease s/p ileocolic reseaction. She is being maintained on Remicade infusions, but had frequent flares when her infusions were every 8 weeks. She reports they were recently increased in frequency to every 6 weeks, but notices that her symptoms start to get worse at the 4 week ana rosa. Patient stated her last infusion was 11/05/2023, and for the past 1 week she has had profuse diarrhea. She stated there is no blood in her stool, but that it is very mucousy. She has 10-15 bowel movements daily when it is at its worst. Patient had been started on a course of oral steroids by [facility], but stated that it has not helped much. She also reports a Cdiff test that was performed and is negat tammi. In the emergency department, she was noted to be afebrile and vitally stable. Her laboratory studies were only notable for creatinine of 1.02; the remainder of BMP and CBC were WNL. Urinalysis was bland. CT abdomen/pelvis with mild wall thickening and mucosal hyper-enhancement of the colon. She received 1L LR + 20mg solumedrol, and was admitted for further cares. Past Medical History Past Medical History: Diagnosis [...] Prescriptions Last Dose Informant Patient Reported? Taking? Bioflavonoid Products (VITAMIN C) CHEW Yes No Sig: Take 1 tablet by mouth daily HYDROmorphone (DILAUDID) 2 MG tablet No No Sig: Take 1 tablet (2 mg) by mouth every 4 hours as needed for severe pain (IF pain not managed with non-pharmacological and non-opioid interventions) acetaminophen (TYLENOL) 500 MG tablet No No [...] 2 times daily as needed for constipation cholecalciferol (VITAMIN D3) 10 mcg (400 units) TABS tablet Yes No Sig: Take 10 mcg by mouth daily cyanocobalamin (CYANOCOBALAMIN) 1000 MCG/ML injection Yes No Sig: Inject 1,000 mcg as directed every 30 days dicyclomine (BENTYL) 20 MG tablet No No Sig: Take 1 tablet (20 mg) by mouth 4 times daily (before meals and nightly) esomeprazole (NEXIUM) [address] capsule Yes No Sig: Take 40 mg by mouth 2 times daily (before meals) Take 30-60 minutes before eating. famotidine (PEPCID) 40 MG tablet Yes No Sig: Take 40 mg by mouth At Bedtime hydrOXYzine HCl (ATARAX) 25 MG tablet No No Sig: Take 1 tablet (25 mg) by mouth every 6 hours as needed for other (adjuvant pain) inFLIXimab (REMICADE IV) Yes No Sig: Inject 10 mg/kg into the vein once every eight weeks medical cannabis (Patient's own supply) Yes No Sig: Take 1 Dose by mouth See Admin Instructions (The purpose of this order is to document that thepatient reports taking medical cannabis. This is not a prescription, and is not used to certify that the patient has a qualifying medical condition.) 25 MG EDIBLE methocarbamol (ROBAXIN) 500 MG tablet No No [...] every 8 hours as needed for nausea simethicone (MYLICON) 80 MG chewable tablet No No Sig: Take 1 tablet (80 mg) by mouth every 6 hours as needed for cramping traZODone (DESYREL) 100 MG tablet Yes No Sig: Take 200 mg by mouth At Bedtime Facility-Administered Medications: None Physical Exam Temp: 98.5 ??F (36.9 ??C) Temp src: Temporal BP: (!) 149/85 Pulse: 99 Resp: 16 SpO2: 99 % O2 Device: None (Room air) Estimated body mass index is 27.55 kg/m?? as calculated from the following: Height as of 03/31/23: 1.6 m (5' 3). Weight as of 09/23/23: 70.5 kg (155 lb 8 oz). General: Very pleasant female resting comfortably in hospital bed. Awake, alert, interactive. at bedside. HEENT: Normocephalic, atraumatic. PERRL, EOMI. Conjunctiva clear, sclerae anicteric. Mucous membranes moist. Cardiac: Regular rate and rhythm without murmur, gallop, or rub. No peripheral edema. Respiratory: Normal work of breathing. Clear to auscultation bilaterally without wheezing, rales, or rhonchi. GI: Normal, active bowel sounds. Abdomen soft, nontender, nondistended. : Deferred. Musculoskeletal: Moving all extremities appropriately. Skin: No rashes or abrasions on exposed skin. Neurologic: Alert and oriented x4. Cranial nerves II through XII grossly intact. Psychologic: Appropriate mood and affect. Medical Decision Making 45 MINUTES SPENT BY ME on the date of service doing chart review, history, exam, documentation & further activities per the note. Data I have personally reviewed the following data over the past 24 hrs: 8.9 \ 13.6 / 276 138 102 13.0 / 111 (H) 4.4 24 1.02 (H) \ ALT: 13 AST: 17 AP: 71 TBILI: 0.3 ALB: 4.7 TOT PROTEIN: 7.3 LIPASE: N/A Procal: N/A CRP: <3.00 Lactic Acid: N/A Imaging results reviewed over the past 24 hrs: Recent Results (from the past 24 hour(s)) CT Abdomen Pelvis w Contrast Narrative EXAM: CT ABDOMEN PELVIS W CONTRAST LOCATION: [facility] DATE: 11/29/2023 INDICATION: Severe abd pain and [...] VASCULATURE: Normal. PELVIC ORGANS: Hysterectomy. MUSCULOSKELETAL: Normal. Impression IMPRESSION: 1. Mild wall thickening and mucosal hyperenhancement of the colon. This is suggestive of a mild infectious colitis. documented in this encounter Consult Notes * Maria Esther Chandra MSW - 12/08/2023 1:04 PM CDTAssociated Order(s): CARE MANAGEMENT / SOCIAL WORK IP CONSULT Care Management Follow Up Length of Stay (days): 9 Expected Discharge Date: 12/08/2023 Concerns to be Addressed: Patient plan of care discussed at interdisciplinary rounds: Yes Anticipated Discharge Disposition: Anticipated Discharge Services: Anticipated Discharge DME: Patient/family educated on Medicare website which has current facility and service quality ratings: Education Provided on the Discharge Plan: Patient/Family in Agreement with the Plan: Referrals Placed by CM/SW: Private pay costs discussed: Not applicable Additional Information: Sw consulted for elevated risk score. Per chart review pt has no sw/cm needs at this time. Social work will continue to follow and assist with discharge planning as needed. ERICA Munoz, [facility] Inpatient Care Coordination [facility] [phone] ERICA Munoz * Adia Britton - 12/05/2023 9:58 AM CDTAssociated Order(s): SPIRITUAL HEALTH SERVICES IP CONSULT SP[facility]ITUAL HEALTH SERVICES - Consult Note Peds Referral Source/Reason for Visit: responding to consult request for emotional support. Summary and Recommendations - Hawa is in considerable pain and waiting for some other treatment options to be available. Hawa's family, friends, and pradeep provide a great amount of support to her. The hospital staff arealso a source of connection and comfort. Hawa is part of a [employer] y[employer] in [place] and her benzene operator is checking in with her. Plan: [facility] remains available. I will check in next week if Hawa is still in patient. Adia Britton, PhD [employer] available 31/03 for emergent requests/referrals, either by paging the on-call dope and fabric worker or by entering an BUSTER/STAT consult in [employer]), which will also page the on-call dope and fabric worker. Assessment Saw pt Hortensia Buitrago per consult request for emotional support.. Patient/Family Understanding of Illness and Goals of Care - Hawa is waiting for an insurance approval for a specific treatment option. She is in severe pain at the moment and hesitates to take pain medication while her symptoms are resolving. Distress and Loss - Hawa's father when she was 15. She is the eighth out of 11 siblings, and after her father's , the family struggled financially. She also experienced a painful loss whenher first marriage ended in divorce and the oracle ebs developer told her she couldn't participate in yazidi anymore unless she got an annulment, which she didn't want. Hawa wishes she could host her family for Jamgle and make the Easter candy she usually does for everyone. Strengths, Coping, and Resources - Hawa had an important spiritual experience two years ago: I received the Holy Spirit. This experience has allowed her to feel connected to God and God's presencehas been a major support. I wouldn't be alive if it wasn't for Him, she said. Her is alsovery supportive, and they have seven children, 18 grandchildren, and 1 great-grandchild between them. They've been for 21 years. Hawa also has friends who visit her and her benzene operator from [place] is in contact over the phone. Hawa's has suggested hosting a Spring Fling cookout for the family, to make up for missing Easter this year. Meaning, Beliefs, and Spirituality - Hawa's experience with the Holy Spirit two years ago in a [employer] y[employer]idi in [place] has been transformational. Hawa remains connected long-distance with that yazidi and benzene operator, and participates in donations to their food pantry, which is very meaningful to her. Hawa welcomes prayer and on-going support from [facility]. * Griffin Andre MD - 11/30/2023 1:30 PM CDTAssociated Order(s): GASTROENTEROLOGY IP CONSULT Images from the original note were not included. GASTROENTEROLOGY CONSULTATION Hortensia Buitrago [address] [place] [address] 63 year old female Admission Date/Time: 11/29/2023 Primary Care Provider: Andrew Israel We were asked to see the patient in consultation by Dr. Su for evaluation of abdominal pain. IRP: #1 Crohn's disease with fibrostenotic phenotype s/p ileocecal resection and anastomosis #2 Abdominal pain with intermittent flareups CT with no SBO or stricture or fistula. Some luminal content in colon is non- specific. Pt has had no BM since yesterday afternoon. - continue IV solumedrol 40 every day (or 20 BID). - if ongoing pain, then would do liquid only diet, otherwise as tolerated low fiber. - will need remicade trough/antibody drawn before next dose. - no plan for mucosal eval now but we will continue to monitor her status. - send C. Diff/path panel if loose stools. GI team will follow. Griffin Andre MD [facility] - [facility] [phone] HPI: Hortensia Buitrago is a 63 year old female who was diagnosed with Crohn's disease 2022, needed ileo-cecectomy for fibrostenotic disease, and has been on remicade monotherapy. Last colonoscopy 06/30- no endoscopic disease. Pt has continued to experience diarrhea and lower abd pain. She was admitted yesterday with flare up of pain. After presentation to ED, she has no had any bowel movements. Today, pain is better. Due to ongoing symptoms and low levels, remicade was increased to 10mg/kg 2 doses ago, and [id number], She is about 3 weeks out from last dose. Admission CT unremarkable. ROS: A comprehensive ten point review of systems was negative aside from those in mentioned in the HPI. PAST MEDICAL HISTORY: Past Medical History: Diagnosis Date Crohn's disease (H) PONV (postoperative nausea and vomiting) SOCIAL HISTORY: FAMILY HISTORY: Family History Problem Relation Age of Onset Colon Cancer Niece ALLERGIES: Allergies Allergen Reactions Latex Hives Oxycodone Anaphylaxis, Hives and Swelling Throat swelling, per pt Pt tolerates [place]/Vicodin (06/22/2023) Penicillin G Anaphylaxis Sumatriptan Palpitations Aspirin Nausea and Vomiting Demerol Hcl [Meperidine] Nausea and Vomiting N/V Percocet [Oxycodone-Acetaminophen] Nausea and Vomiting N/V Acetaminophen Nausea and Vomiting Codeine Nausea and Vomiting Mold MEDICATIONS: Prior to Admission medications Medication Sig Start Date End Date Taking? Authorizing Provider acetaminophen (TYLENOL) 500 MG tablet Take 1-2 tablets (500-1,000 mg) by mouth every 6 hours as needed for mild pain 04/02/23 Yes Jackie Hooks PA-C albuterol (PROAIR HFA/PROVENTIL HFA/VENTOLIN HFA) 108 (90 Base) MCG/ACT inhaler Inhale 2 puffs intothe lungs every 6 hours as needed for shortness of breath, wheezing or cough Yes Unknown, Entered By History bisacodyl (DULCOLAX) [address] 1 suppository (10 mg) rectally 2 times daily as neededfor constipation 02/23/23 Yes Eva Hammond, cyanocobalamin (CYANOCOBALAMIN) 1000 MCG/ML injection Inject 1,000 mcg as directed every 30 days Yes Unknown, Entered By History dicyclomine (BENTYL) 20 MG tablet Take 1 tablet (20 mg) by mouth 4 times daily (before meals and nightly) 09/25/23 Yes Lukasz Weaver MD esomeprazole (NEXIUM) [address] capsule [...] times daily as needed for muscle spasms Patient taking differently: Take 1,000 mg by mouth 2 times daily 02/23/23 Yes Eva Hammond DO montelukast (SINGULAIR) [...] for nausea 02/23/23 Yes Eva Hammond DO predniSONE (DELTASONE) 5 MG tablet Take by mouth daily Starting 11/26/23 80 mg dailly for 1 week, then 70 mg dailly for 1 week 60 mg dailly for 1 week 50 mg dailly for 1 week 40 mg dailly for 1 week 30 mg dailly for 1 week 20 mg dailly for 1 week 10 mg dailly for 1 week Yes Unknown, Entered By History simethicone (MYLICON) 80 MG chewable tablet Take 1 tablet (80 mg) by mouth every 6 hours as needed for cramping 09/25/23 Yes Lukasz Weaver MD traZODone (DESYREL) 100 MG tablet Take 200 mg by mouth At Bedtime Yes Unknown, Entered By History vitamin C (ASCORBIC ACID) 1000 MG TABS Take 1,000 mg by mouth daily Yes Unknown, Entered By History Vitamin D3 (CHOLECALCIFEROL) 25 mcg (1000 units) tablet Take 25 mcg by mouth daily Yes Unknown, Entered By History HYDROmorphone (DILAUDID) 2 MG tablet Take 1 tablet (2 mg) by mouth every 4 hours as needed for severe pain (IF pain not managed with non-pharmacological and non- opioid interventions) Patient not taking: Reported on 11/29/2023 09/25/23 Lukasz Weaver MD hydrOXYzine HCl (ATARAX) 25 MG tablet Take 1 tablet (25 mg) by mouth every 6 hours as needed for other (adjuvant pain) Patient not taking: Reported on 11/29/2023 09/25/23 Lukasz Weaver MD PHYSICAL EXAM: BP 132/80 Pulse 68 Temp 97.5 ??F (36.4 ??C) (Oral) Resp 16 Ht 1.6 m (5' 3) Wt 67.5 kg (148 lb 13 oz) SpO2 97% BMI 26.36 kg/m?? GEN: No distress, Alert, comfortable. WILMAN: No pallor, No icterus, oral mucosa moist. NECK: No thyromegaly. No mass. HEART: RRR, S1 S2 normal. LUNGS: CTA BL ABD: soft, healed surg scar, non-tender, non-distended, no peritoneal signs. NEURO: No gross motor deficits. PSYCH: A O X 3. EXTREMITIES: No pedal edema. ADDITIONAL DATA: I reviewed the patient's new clinical lab test results. Recent Labs Lab Test 11/30/23 0706 11/29/23 1528 09/23/23 0816 WBC 10.5 8.9 6.0 HGB 12.7 13.6 12.6 MCV 90 90 91 PLT 251 276 191 Recent Labs Lab Test 11/30/23 0706 11/29/23 1528 09/23/23 0816 NA 142 138 139 POTASSIUM 5.4* 4.4 4.5 CHLORIDE 107 102 107 CO2 24 BUN 12.3 13.0 7.1* CR 0.91 1.02* 0.85 ANIONGAP 6* 12 8 DAJA 9.0 9.6 8.6* GLC 100* 111* 133* Recent Labs Lab Test 11/29/23 1528 11/29/23 1526 09/23/23 0816 09/22/23 1823 09/22/23 1801 08/07/23 1726 06/16/23 1750 06/16/23 1737 03/31/23 1717 03/31/23 1608 ALBUMIN 4.7 -- 3.9 4.5 -- -- < > 4.7 -- 3.9 BILITOTAL 0.3 -- 0.6 0.7 -- -- < > 0.4 -- 0.3 ALT 13 -- 11 15 -- -- < > 15 -- 28 AST 17 -- 16 15 -- -- < > 24 -- 29 PROTEIN -- Negative -- -- Negative Negative < > -- < > -- LIPASE -- -- -- -- -- -- -- 27 -- 56 < > = values in this interval not displayed. I reviewed the patient's new imaging results. Total time: 45 minutes. documented in this encounter ED Notes * Anju Barrett RN - 11/29/2023 5:21 PM CDT [facility] ED Nurse Handoff Report Hortensia Buitrago is a 63 year old female ED Chief complaint: Abdominal Pain . ED Diagnosis: Final diagnoses: Exacerbation of Crohn's disease with complication (H) Generalized abdominal pain Allergies: Allergies Allergen Reactions Latex Hives Oxycodone Anaphylaxis, Hives and Swelling Throat swelling, per pt Pt tolerates [place]/Vicodin (06/22/2023) Penicillin G Anaphylaxis Sumatriptan Palpitations Aspirin Nausea and Vomiting Demerol Hcl [Meperidine] Nausea and Vomiting N/V Percocet [Oxycodone-Acetaminophen] Nausea and Vomiting N/V Acetaminophen Nausea and Vomiting Codeine Nausea and Vomiting Mold Code Status: Full Code Activity level - Baseline/Home: Independent. Activity Level - Current: Independent. Lift room needed: No. Bariatric: No Emergency Communications Officer Needed: No Isolation: Yes. Infection: C-Diff Pending. Vital Signs: Vitals: 11/29/23 1400 BP: (!) 130/91 Pulse: 93 Resp: 16 Temp: 98.5 ??F (36.9 ??C) TempSrc: Temporal SpO2: 98% Cardiac Rhythm: , Pain level: Patient confused: No. Patient Falls Risk: No. Elimination Status: Has voided Patient Report - Initial Complaint: . Abdominal pain Focused Assessment: Hortensia Buitrago is a 63 year old female with history of Crohn's disease who presents with abdominal pain. She has been having a Crohn's flare up since the start of the week. She has been having abdominal pain all over her abdomin. She had a stool study that showed inflammation so her GI doctor prescribed her Prednisone which she has been taking but it's not helping. She has been having diarrhea. She had 6 episodes today but has been having over 10 episodes daily over the week. She also has nausea and chills. She called a GI doctor today and was advised to come into the hospital for admission. Denies fever, vomiting, urinary issues, leg swelling, or appetite loss. Tests Performed: Labs Ordered and Resulted from Time of ED Arrival to Time of ED Departure COMPREHENSIVE METABOLIC PANEL - Abnormal Result Value Sodium 138 Potassium 4.4 Carbon Dioxide (CO2) 24 Anion Gap 12 Urea Nitrogen 13.0 Creatinine 1.02 (*) GFR Estimate 61 Calcium 9.6 Chloride 102 Glucose 111 (*) Alkaline Phosphatase 71 AST 17 ALT 13 Protein Total 7.3 Albumin 4.7 Bilirubin Total 0.3 ROUTINE UA WITH MICROSCOPIC REFLEX TO CULTURE - Abnormal Color Urine Straw Appearance Urine Clear Glucose Urine Negative Bilirubin Urine Negative Ketones Urine Negative Specific [place] Urine 1.006 Blood Urine Negative pH Urine 5.5 Protein Albumin Urine Negative Urobilinogen Urine Normal Nitrite Urine Negative Leukocyte Esterase Urine Negative Bacteria Urine Few (*) RBC Urine <1 WBC Urine <1 Squamous Epithelials Urine <1 ERYTHROCYTE SEDIMENTATION RATE AUTO - Normal Erythrocyte Sedimentation Rate 3 CRP INFLAMMATION - Normal CRP Inflammation <3.00 CBC WITH PLATELETS AND DIFFERENTIAL WBC Count 8.9 RBC Count 4.61 Hemoglobin 13.6 Hematocrit 41.3 MCV 90 MCH 29.5 MCHC 32.9 RDW 12.5 Platelet Count 276 % Neutrophils 84 % Lymphocytes 11 % Monocytes 4 % Eosinophils 0 % Basophils 0 % Immature Granulocytes 1 NRBCs per 100 WBC 0 Absolute Neutrophils 7.5 Absolute Lymphocytes 1.0 Absolute Monocytes 0.3 Absolute Eosinophils 0.0 Absolute Basophils 0.0 Absolute Immature Granulocytes 0.1 Absolute NRBCs 0.0 ENTERIC BACTERIA AND VIRUS PANEL BY PCR C. DIFFICILE TOXIN B PCR WITH REFLEX TO C. DIFFICILE ANTIGEN AND TOXINS A/B EIA CT Abdomen Pelvis w Contrast Preliminary Result IMPRESSION: 1. Mild wall thickening and mucosal hyperenhancement of the colon. This is suggestive of a mild infectious colitis. Treatments provided: See Epic Family Comments: NA OBS brochure/video discussed/provided to patient: N/A ED Medications: Medications ondansetron (ZOFRAN) injection 4 mg (4 mg Intravenous $Given 11/29/23 1533) morphine (PF) injection 4 mg (4 mg Intravenous $Given 11/29/23 1533) methylPREDNISolone sodium succinate (SOLU-MEDROL) injection 20 mg (has no administration in time range) lactated ringers BOLUS 1,000 mL (1,000 mLs Intravenous $New Bag 11/29/23 1533) CT Scan Flush (58 mLs Intravenous $Given 11/29/23 1605) iopamidol (ISOVUE-370) solution 500 mL (78 mLs Intravenous $Given 11/29/23 1605) Drips infusing: No For the majority of the shift, the patient's behavior Green. Interventions performed were NA. Sepsis treatment initiated: No Patient tested for COVID 19 prior to admission: NO ED Nurse Name/Phone Number: Massiel Callahan RN, 5:21 PM RECEIVING UNIT ED HANDOFF REVIEW Above ED Nurse Handoff Report was reviewed: Yes Reviewed by: Anju Barrett RN on November 29, 2023 at 5:50 PM I Von called the ED to inform them the note was read: No * Jaan Quintero RN - 11/29/2023 1:59 PM CDT Arrives to ED with Crohn's flare up. Abdominal pain since Friday, 6 episodes of diarrhea since this AM. Pt reports nausea and chills. Spoke to GI doctor who told her to come in and get admitted. ABCs intact. A&OX4. Last doses Tylenol 30. Zofran last night. Triage Assessment (Adult) Row Name 11/29/23 1359 Triage Assessment Airway WDL WDL Respiratory WDL Respiratory WDL WDL Skin Circulation/Temperature WDL Skin Circulation/Temperature WDL WDL Cardiac WDL Cardiac WDL WDL Peripheral/Neurovascular WDL Peripheral Neurovascular WDL WDL Cognitive/Neuro/Behavioral WDL Cognitive/Neuro/Behavioral WDL WDL * Jesus Will MD - 11/29/2023 1:56 PM CDT History Chief Complaint: Abdominal Pain The history is provided by the patient. Hortensia Buitrago is a 63 year old female with history of Crohn's disease who presents with abdominalpain. She has been having a Crohn's flare up since the start of the week. She has been having abdominal pain all over her abdomin. She had a stool study that showed inflammation so her GI doctor prescribed her Prednisone which she has been taking but it's not helping. She has been having diarrhea. She had 6 episodes today but has been having over 10 episodes daily over the week. She also has nausea and chills. She called a GI doctor today and was advised to come into the hospital for admission.Denies fever, vomiting, urinary issues, leg swelling, or appetite loss. Independent Historian: None - Patient Only Review of External Notes: See MDM Medications: Albuterol pro-air Bentyl Nexium Pepcid Dilaudid Atarax Robaxin Singulair Pamelor Zofran Desyrel Mylicon Past Medical History: Crohn's disease Acute colitis Past Surgical History: Appendectomy Cholecystectomy Nephrectomy Laparoscopic resection ileocecal Physical Exam Patient Vitals for the past 24 hrs: BP Temp Temp src Pulse Resp SpO2 11/29/23 1400 (!) 130/91 98.5 ??F (36.9 ??C) Temporal 93 16 98 % Physical Exam Constitutional: Well developed, uncomfortable nontox appearance Head: Atraumatic. Mouth/Throat: Oropharynx is clear and moist. Neck: no stridor Eyes: no scleral icterus Cardiovascular: RRR, 2+ bilat radial pulses Pulmonary/Chest: nml resp effort Abdominal: ND, soft, diffuse tenderness, no rebound or guarding Ext: Warm, well perfused Neurological: A&O, symmetric facies, moves ext x4 Skin: Skin is warm and dry. Psychiatric: Behavior is normal. Thought content normal. Nursing note and vitals reviewed. Emergency Department Course Imaging: CT Abdomen Pelvis w Contrast Final Result IMPRESSION: 1. Mild wall thickening and mucosal hyperenhancement of the colon. This is suggestive of a mild infectious colitis. Laboratory: Labs Ordered and Resulted from Time of ED Arrival to Time of ED Departure COMPREHENSIVE METABOLIC PANEL - Abnormal Result Value Sodium 138 Potassium 4.4 Carbon Dioxide (CO2) 24 Anion Gap 12 Urea Nitrogen 13.0 Creatinine 1.02 (*) GFR Estimate 61 Calcium 9.6 Chloride 102 Glucose 111 (*) Alkaline Phosphatase 71 AST 17 ALT 13 Protein Total 7.3 Albumin 4.7 Bilirubin Total 0.3 ROUTINE UA WITH MICROSCOPIC REFLEX TO CULTURE - Abnormal Color Urine Straw Appearance Urine Clear Glucose Urine Negative Bilirubin Urine Negative Ketones Urine Negative Specific [place] Urine 1.006 Blood Urine Negative pH Urine 5.5 Protein Albumin Urine Negative Urobilinogen Urine Normal Nitrite Urine Negative Leukocyte Esterase Urine Negative Bacteria Urine Few (*) RBC Urine <1 WBC Urine <1 Squamous Epithelials Urine <1 ERYTHROCYTE SEDIMENTATION RATE AUTO - Normal Erythrocyte Sedimentation Rate 3 CRP INFLAMMATION - Normal CRP Inflammation <3.00 CBC WITH PLATELETS AND DIFFERENTIAL WBC Count 8.9 RBC Count 4.61 Hemoglobin 13.6 Hematocrit 41.3 MCV 90 MCH 29.5 MCHC 32.9 RDW 12.5 Platelet Count 276 % Neutrophils 84 % Lymphocytes 11 % Monocytes 4 % Eosinophils 0 % Basophils 0 % Immature Granulocytes 1 NRBCs per 100 WBC 0 Absolute Neutrophils 7.5 Absolute Lymphocytes 1.0 Absolute Monocytes 0.3 Absolute Eosinophils 0.0 Absolute Basophils 0.0 Absolute Immature Granulocytes 0.1 Absolute NRBCs 0.0 ENTERIC BACTERIA AND VIRUS PANEL BY PCR C. DIFFICILE TOXIN B PCR WITH REFLEX TO C. DIFFICILE ANTIGEN AND TOXINS A/B EIA Procedures Emergency Department Course & Assessments: Interventions: Medications ondansetron (ZOFRAN) injection 4 mg (4 mg Intravenous $Given 11/29/231532) morphine (PF) injection 4 mg (4 mg Intravenous $Given 11/29/23 1750) methylPREDNISolone sodium succinate (SOLU-MEDROL) injection 20 mg (has no administration in time range) lactated ringers BOLUS 1,000 mL (1,000 mLs Intravenous $New Bag 11/29/231532) CT Scan Flush (58 mLs Intravenous $Given 11/29/23 1605) iopamidol (ISOVUE-370) solution 500 mL (78 mLs Intravenous $Given 11/29/23 1605) Assessments: 1435 I examined the patient and obtained history as noted above. Independent Interpretation (X-rays, CTs, rhythm strip): See MDM Consultations/Discussion of Management or Tests: [address] Andre, [facility], regarding the patient. Social Determinants of Health affecting care: See MDM Disposition: The patient was admitted to the hospital under the care of Dr. Zhang. Impression & Plan [facility] Diagnoses: none MIPS (If applicable): N/A Medical Decision Makin63 year old female presenting w/ abdominal pain, diarrhea Social determinants affecting patient's health include: No significant social determinants negatively affecting the patient's health I reviewed medical records from hospital admission on 09/22/2023 DDx includes Crohn's disease, electrolyte abnormality, bowel obstruction although less likely, C. difficile colitis, infectious colitis NOS, abdominal pain NOS. Doubt atypical ACS, vascular catastrophe given history and physical exam. Labs significant for minimal creatinine elevation, hemoglobin normal, or WBC normal . Imaging sig for findings as noted above consistent with colitis. Interventionsas noted above. Discussed patient with on-call gastroenterology from [facility] recommended admission forfurther evaluation and IV steroids. Patient was subsequent admitted to the hospital service for further evaluation and management. She was counseled on the results, diagnosis and disposition prior to admission. She is understanding agreeable plan. Diagnosis: ICD-10-CM 1. Exacerbation of Crohn's disease with complication (H) K50.919 2. Generalized abdominal pain R10.84 Discharge Medications: New Prescriptions No medications on file Scribe Disclosure: Wilian Ruffin, am serving as a scribe at 2:15 PM on 11/29/2023 to document services personally performed by Jesus Will MD based on my observations and the provider's statements to me. 11/29/2023 Jesus Will MD Vaughn, Christopher E, MD 11/29/23 1800 documented in this encounter Miscellaneous Notes * Plan of Care - Rhonda Ramon RN - 12/09/2023 4:54 PM CDT Goal Outcome Evaluation: VSS. Afebrile. Pain well managed with tylenol and oral dilaudid. Bowel sounds active. Tolerating regular diet. Drinking well. Voiding well, no stool. Ambulating [place] several times. IV with some mild redness and cording. IV discontinued and warm pack applied. Discharge instructions given. Home meds given and explained. Discharge home with . Problem: Adult Inpatient Plan of Care Goal: Absence of Hospital-Acquired Illness or Injury Intervention: Identify and Manage Fall Risk Recent Flowsheet Documentation Taken 12/09/2023 08 by Rhonda Ramon RN Safety Promotion/Fall Prevention: clutter free environment maintained nonskid shoes/slippers when out of bed Intervention: Prevent Skin Injury Recent Flowsheet Documentation Taken 12/09/2023 08 by Rhonda Ramon RN Body Position: position changed independently Goal: Optimal Comfort and Wellbeing Intervention: Monitor Pain and Promote Comfort Recent Flowsheet Documentation Taken 12/09/2023817 by Rhonda Ramon RNsquare cutter Interventions: medication (see MAR) Problem: Pain Acute Goal: Optimal Pain Control and Function Intervention: Develop Pain Management Plan Recent Flowsheet Documentation Taken 12/09/2023 08 by Rhonda Ramon RNsquare cutter Interventions: medication (see MAR) Problem: Bowel Disease, Inflammatory (Ulcerative Colitis or Crohn's Disease) Goal: Optimal Pain Control and Function Intervention: Prevent or Manage Pain Recent Flowsheet Documentation Taken 12/09/2023 08 by Rhonda Ramon RNsquare cutter Interventions: medication (see MAR) * Plan of Care - Chanelle Stewart RN - 12/09/2023 6:18 AM CDT Vitals: VSS. Afebrile. Independent in room. Pt rested comfortably between cares. Resp: WDL. LS clear and equal bilaterally GI/: non distended, soft, RUQ & RLQ tenderness. Passing flatus, BS active and audible. N/V controled with IV Zofran x1. Tolerating regular diet. Voiding WDL. IV: WDL dressing c/d/i, saline locked Pain/Comfort: 6-8/10 while awake. Able to sleep comfortably between cares. Tylenol x1. Oral dilaudid x3. Atarax x1. Skin: scattered bruises on arms from previous IV pokes Social: WDL coping effectively Plan: pain and nausea management, oral abx Problem: Adult Inpatient Plan of Care Goal: Plan of Care Review Description: The Plan of Care Review/Shift note should be completed every shift. The Outcome Evaluation is a brief statement about your assessment that the patient is improving, declining, or no change. This information will be displayed automatically on your shift note. 12/09/2023617 by Chanelle Stewart RN Outcome: Progressing Flowsheets (Taken 12/09/2023617) Plan of Care Reviewed With: patient Overall Patient Progress: improving 12/09/2023616 by Chanelle Stewart RN Outcome: Progressing Flowsheets (Taken 12/09/2023616) Plan of Care Reviewed With: patient 12/09/2023616 by Chanelle Stewart RN Outcome: Progressing Flowsheets (Taken 12/09/2023616) Plan of Care Reviewed With: patient Overall Patient Progress: improving Goal: Absence of Hospital-Acquired Illness or Injury Intervention: Identify and Manage Fall Risk Recent Flowsheet Documentation Taken 12/08/20232016 by Chanelle Stewart RN Safety Promotion/Fall Prevention: patient and family education room organization consistent safety round/check completed clutter free environment maintained Intervention: Prevent Skin Injury Recent Flowsheet Documentation Taken 12/09/2023411 by Chanelle Stewart RN Body Position: position changed independently Taken 12/08/20232016 by Chanelle Stewart RN Body Position: position changed independently Skin Protection: adhesive use limited Device Skin Pressure Protection: adhesive use limited tubing/devices free from skin contact Intervention: Prevent and Manage VTE (Venous Thromboembolism) Risk Recent Flowsheet Documentation Taken 12/08/20232016 by Chanelle Stewart RN VTE Prevention/Management: (AMBULATES) SCDs (sequential compression devices) off Intervention: Prevent Infection Recent Flowsheet Documentation Taken 12/08/20232016 by Chanelle Stewart RN Infection Prevention: equipment surfaces disinfected hand hygiene promoted single patient room provided rest/sleep promoted Goal: Optimal Comfort and Wellbeing Intervention: Monitor Pain and Promote Comfort Recent Flowsheet Documentation Taken 12/09/2023411 by Chanelle Stewart RN Pain Management Interventions: medication (see MAR) Taken 12/08/20232339 by Chanelle Stewart RN Pain Management Interventions: medication (see MAR) Taken 12/08/20232016 by Chanelle Stewart RN Pain Management Interventions: medication (see MAR) Problem: Pain Acute Goal: Optimal Pain Control and Function Intervention: Develop Pain Management Plan Recent Flowsheet Documentation Taken 12/09/2023411 by Chanelle Stewart RN Pain Management Interventions: medication (see MAR) Taken 12/08/20232339 by Chanelle Stewart RN Pain Management Interventions: medication (see MAR) Taken 12/08/20232016 by Chanelle Stewart RN Pain Management Interventions: medication (see MAR) Intervention: Prevent or Manage Pain Recent Flowsheet Documentation Taken 12/08/20232016 by Chanelle Stewart RN Sensory Stimulation Regulation: care clustered Sleep/Rest Enhancement: awakenings minimized consistent schedule promoted noise level reduced regular sleep/rest pattern promoted relaxation techniques promoted Bowel Elimination Promotion: adequate fluid intake promoted ambulation promoted Complementary Therapy: aromatherapy utilized Medication Review/Management: medications reviewed high-risk medications identified Intervention: Optimize Psychosocial Wellbeing Recent Flowsheet Documentation Taken 12/08/20232016 by Chanelle Stewart RN Supportive Measures: active listening utilized decision-making supported goal-setting facilitated problem-solving facilitated relaxation techniques promoted verbalization of feelings encouraged Problem: Bowel Disease, Inflammatory (Ulcerative Colitis or Crohn's Disease) Goal: Optimal Adaptation to Chronic Illness Intervention: Support Psychosocial Response to Illness Recent Flowsheet Documentation Taken 12/08/20232016 by Chanelle Stewart RN Supportive Measures: active listening utilized decision-making supported goal-setting facilitated problem-solving facilitated relaxation techniques promoted verbalization of feelings encouraged Goal: Diarrhea Symptom Relief Intervention: Manage Diarrhea Recent Flowsheet Documentation Taken 12/08/20232016 by Chanelle Stewart RN Diarrhea Management: fluids promoted Fluid/Electrolyte Management: fluids provided Goal: Optimal Pain Control and Function Intervention: Prevent or Manage Pain Recent Flowsheet Documentation Taken 12/09/2023411 by Chanelle Stewart square cutter Interventions: medication (see MAR) Taken 12/08/2023 2340 by Chanelle Stewart RN Pain Management Interventions: medication (see MAR) Taken 12/08/2023 2017 by Chanelle Stewart RN Pain Management Interventions: medication (see MAR) Sleep/Rest Enhancement: awakenings minimized consistent schedule promoted noise level reduced regular sleep/rest pattern promoted relaxation techniques promoted Complementary Therapy: aromatherapy utilized Goal Outcome Evaluation: Plan of Care Reviewed With: patient Overall Patient Progress: improvingOverall Patient Progress: improving * Plan of Care - Anju Barrett RN - 12/08/2023 6:07 PM CDT Goal Outcome Evaluation: Plan of Care Reviewed With: patient Overall Patient Progress: improvingOverall Patient Progress: improving Afebrile. Receiving oral pain medication with some relief from abdominal and R shoulder pain. Receiving Zofran for C/O intermittent nausea. C/O reflux; receiving Tums and Protonix changed to BID. Active bowel sounds. Abdomen soft and tender in RUQ and RLQ. Passing flatus. Intermittent dizziness. Poor appetite; encouraging smaller, more frequent meals. Plan: Oral steroids and antibiotics. Encourage ambulation and fluids. GI consulting. Monitor and provide for needs Problem: Adult Inpatient Plan of Care Goal: Plan of Care Review Description: The Plan of Care Review/Shift note should be completed every shift. The Outcome Evaluation is a brief statement about your assessment that the patient is improving, declining, or no change. This information will be displayed automatically on your shift note. Outcome: Progressing Flowsheets (Taken 12/08/2023 1806) Plan of Care Reviewed With: patient Overall Patient Progress: improving Goal: Patient-Specific Goal (Individualized) Description: You can add care plan individualizations to a care plan. Examples of Individualizationmight be: Parent requests to be called daily at 9am for status, I have a hard time hearing out of my right ear, or Do not touch me to wake me up as it startles me. Outcome: Progressing Goal: Absence of Hospital-Acquired Illness or Injury Outcome: Progressing Intervention: Identify and Manage Fall Risk Recent Flowsheet Documentation Taken 12/08/2023 0817 by Anju Barrett RN Safety Promotion/Fall Prevention: clutter free environment maintained safety round/check completed Intervention: Prevent Skin Injury Recent Flowsheet Documentation Taken 12/08/2023816 by Anju Barrett RN Body Position: position changed independently Skin Protection: adhesive use limited Device Skin Pressure Protection: adhesive use limited Intervention: Prevent and Manage VTE (Venous Thromboembolism) Risk Recent Flowsheet Documentation Taken 12/08/2023 08 by Anju Barrett RN VTE Prevention/Management: SCDs (sequential compression devices) off Intervention: Prevent Infection Recent Flowsheet Documentation Taken 12/08/2023816 by Anju Barrett RN Infection Prevention: hand hygiene promoted rest/sleep promoted single patient room provided Goal: Optimal Comfort and Wellbeing Outcome: Progressing Intervention: Monitor Pain and Promote Comfort Recent Flowsheet Documentation Taken 12/08/2023 1603 by Anju Barrett RN Pain Management Interventions: medication (see MAR) Taken 12/08/2023816 by Anju Barrett RN Pain Management Interventions: medication (see MAR) heat applied Goal: Readiness for Transition of Care Outcome: Progressing Problem: Pain Acute Goal: Optimal Pain Control and Function Outcome: Progressing Intervention: Develop Pain Management Plan Recent Flowsheet Documentation Taken 12/08/2023 1603 by Anju Barrett RN Pain Management Interventions: medication (see MAR) Taken 12/08/2023816 by Anju Barrett RN Pain Management Interventions: medication (see MAR) heat applied Intervention: Prevent or Manage Pain Recent Flowsheet Documentation Taken 12/08/2023816 by Anju Barrett RN Sensory Stimulation Regulation: care clustered Bowel Elimination Promotion: adequate fluid intake promoted ambulation promoted Medication Review/Management: medications reviewed Intervention: Optimize Psychosocial Wellbeing Recent Flowsheet Documentation Taken 12/08/2023816 by Anju Barrett RN Supportive Measures: active listening utilized decision-making supported goal-setting facilitated positive reinforcement provided problem-solving facilitated self-care encouraged self-responsibility promoted verbalization of feelings encouraged Problem: Bowel Disease, Inflammatory (Ulcerative Colitis or Crohn's Disease) Goal: Optimal Adaptation to Chronic Illness Outcome: Progressing Intervention: Support Psychosocial Response to Illness Recent Flowsheet Documentation Taken 12/08/2023816 by Anju Barrett RN Supportive Measures: active listening utilized decision-making supported goal-setting facilitated positive reinforcement provided problem-solving facilitated self-care encouraged self-responsibility promoted verbalization of feelings encouraged Goal: Diarrhea Symptom Relief Outcome: Progressing Intervention: Manage Diarrhea Recent Flowsheet Documentation Taken 12/08/2023 0817 by Anju Barrett RN Diarrhea Management: fluids promoted Fluid/Electrolyte Management: fluids provided Goal: Absence of Infection Signs and Symptoms Outcome: Progressing Goal: Optimal Nutrition Delivery Outcome: Progressing Goal: Optimal Pain Control and Function Outcome: Progressing Intervention: Prevent or Manage Pain Recent Flowsheet Documentation Taken 12/08/2023 1603 by Anju Barrett RN Pain Management Interventions: medication (see MAR) Taken 12/08/2023 0817 by Anju Barrett RN Pain Management Interventions: medication (see MAR) heat applied * Provider Notification - Anju Barrett RN - 12/08/2023 5:00 PM CDT Provider notified of R shoulder pain, concentrated urine, dizziness and intermittent diaphoresis. Provider here at the bedside to evaluate patient. * Plan of Care - Odalys Yoder RN - 12/08/2023 5:31 AM CDT Goal Outcome Evaluation: Plan of Care Reviewed With: patient Overall Patient Progress: no change Orientation: Alert and oriented x4 VSS. 97% on RA. afebrile. LS: clear and equal bilaterally. GI: Passing gas. Hypoactive bowel sounds in bilateral upper quadrants, hyperactive in bilateral lower quadrants. Denies N/V. : Adequate urine output. Skin: bruising to bilateral forearms. Activity: Independent. Pt sleeping intermittently between cares. . Pain: 5-8/10 abdominal pain. Described as constant stabbing in RUQ. Oral dilaudid x2. Atarax x2. Tylenol x2. Simethicone x1. IV dilaudid offered several times due to being in pain between oral options but patient declining. Ice and heat for comfort. Updates/Plan: pain control. Encourage low fiber diet. Patient hopeful to discharge home later today. Continue with current cares. * Plan of Care - Shreya Nicholson RN - 12/07/2023 11:46 PM CDT Goal Outcome Evaluation: Plan of Care Reviewed With: patient Overall Patient Progress: improvingOverall Patient Progress: improving Alert and Oriented x3, VSS. Independent in room. Resp: LS clear and equal GI/: abdomen tender, no disteneded, BS hpoactive in upper, and hyperactive on lower quandrants. Pt passing flatus, no BM this shift, Denies N/V. Tolerating reg diet. Voiding. IV: WDL clean,dry and intact. Saline locked. Pain/Comfort: rating 6/10 abdominal pain. PRN oral dilaudid x1 given. Skin: WDL; showered Plan: VSS, Pain management , IV steroid Problem: Adult Inpatient Plan of Care Goal: Plan of Care Review Description: The Plan of Care Review/Shift note should be completed every shift. The Outcome Evaluation is a brief statement about your assessment that the patient is improving, declining, or no change. This information will be displayed automatically on your shift note. Outcome: Progressing Flowsheets (Taken 12/07/2023 2311) Plan of Care Reviewed With: patient Overall Patient Progress: improving Intervention: Identify and Manage Fall Risk Recent Flowsheet Documentation Taken 12/07/20232043 by Shreya Nicholson RN Safety Promotion/Fall Prevention: clutter free environment maintained safety round/check completed nonskid shoes/slippers when out of bed patient and family education Intervention: Prevent Skin Injury Recent Flowsheet Documentation Taken 12/07/20232043 by Shreya Nicholson RN Body Position: position changed independently Skin Protection: adhesive use limited Device Skin Pressure Protection: adhesive use limited tubing/devices free from skin contact Intervention: Prevent and Manage VTE (Venous Thromboembolism) Risk Recent Flowsheet Documentation Taken 12/07/20232043 by Shreya Nicholson RN VTE Prevention/Management: SCDs (sequential compression devices) off Intervention: Prevent Infection Recent Flowsheet Documentation Taken 12/07/20232043 by Shreya Nicholson RN Infection Prevention: hand hygiene promoted rest/sleep promoted single patient room provided Goal: Optimal Comfort and Wellbeing Outcome: Progressing Intervention: Monitor Pain and Promote Comfort Recent Flowsheet Documentation Taken 12/07/20232043 by Shreya Nicholson RN Pain Management Interventions: heat applied rest distraction care clustered Goal: Readiness for Transition of Care Outcome: Progressing Problem: Pain Acute Goal: Optimal Pain Control and Function Outcome: Progressing Intervention: Develop Pain Management Plan Recent Flowsheet Documentation Taken 12/07/20232043 by Shreya Nicholson RN Pain Management Interventions: heat applied rest distraction care clustered Intervention: Prevent or Manage Pain Recent Flowsheet Documentation Taken 12/07/20232043 by Shreya Nicholson RN Sensory Stimulation Regulation: care clustered Bowel Elimination Promotion: adequate fluid intake promoted Medication Review/Management: medications reviewed Intervention: Optimize Psychosocial Wellbeing Recent Flowsheet Documentation Taken 12/07/20232043 by Shreya Nicholson RN Supportive Measures: active listening utilized decision-making supported goal-setting facilitated problem-solving facilitated self-care encouraged self-responsibility promoted verbalization of feelings encouraged Problem: Bowel Disease, Inflammatory (Ulcerative Colitis or Crohn's Disease) Goal: Optimal Adaptation to Chronic Illness Outcome: Progressing Intervention: Support Psychosocial Response to Illness Recent Flowsheet Documentation Taken 12/07/20232043 by Shreya Nicholson RN Supportive Measures: active listening utilized decision-making supported goal-setting facilitated problem-solving facilitated self-care encouraged self-responsibility promoted verbalization of feelings encouraged Goal: Diarrhea Symptom Relief Outcome: Progressing Intervention: Manage Diarrhea Recent Flowsheet Documentation Taken 12/07/20232043 by Shreya Nicholson RN Perineal Care: perineum cleansed * Plan of Care - Anju Barrett RN - 12/07/2023 6:46 PM CDT Goal Outcome Evaluation: Plan of Care Reviewed With: patient Overall Patient Progress: improvingOverall Patient Progress: improving Afebrile. Received IV Dilaudid times one this morning for abdominal pain, otherwise pain controlledon oral pain medication. Receiving Zofran for C/O intermittent nausea. C/O reflux; receiving Tums. Hyperactive bowel sounds. Hypoactive bowel sounds in LUQ. Abdomen soft and tender. Passing flatus. C/O dizziness improved following IVF bolus and increased PO fluid intake. Plan: IV Steroids. Encourage ambulation. GI consulting. Monitor and provide for needs. Problem: Adult Inpatient Plan of Care Goal: Plan of Care Review Description: The Plan of Care Review/Shift note should be completed every shift. The Outcome Evaluation is a brief statement about your assessment that the patient is improving, declining, or no change. This information will be displayed automatically on your shift note. Outcome: Progressing Flowsheets (Taken 12/07/2023 1846) Plan of Care Reviewed With: patient Overall Patient Progress: improving Goal: Patient-Specific Goal (Individualized) Description: You can add care plan individualizations to a care plan. Examples of Individualizationmight be: Parent requests to be called daily at 9am for status, I have a hard time hearing out of my right ear, or Do not touch me to wake me up as it startles me. Outcome: Progressing Goal: Absence of Hospital-Acquired Illness or Injury Outcome: Progressing Intervention: Identify and Manage Fall Risk Recent Flowsheet Documentation Taken 12/07/2023 0745 by Anju Barrett RN Safety Promotion/Fall Prevention: clutter free environment maintained safety round/check completed Intervention: Prevent Skin Injury Recent Flowsheet Documentation Taken 12/07/2023 0745 by Anju Barrett RN Body Position: position changed independently Skin Protection: adhesive use limited Device Skin Pressure Protection: adhesive use limited Intervention: Prevent and Manage VTE (Venous Thromboembolism) Risk Recent Flowsheet Documentation Taken 12/07/2023 0745 by Anju Barrett RN VTE Prevention/Management: SCDs (sequential compression devices) off Intervention: Prevent Infection Recent Flowsheet Documentation Taken 12/07/2023 0745 by Anju Barrett RN Infection Prevention: hand hygiene promoted rest/sleep promoted single patient room provided Goal: Optimal Comfort and Wellbeing Outcome: Progressing Intervention: Monitor Pain and Promote Comfort Recent Flowsheet Documentation Taken 12/07/2023 1822 by Anju Barrett RN Pain Management Interventions: medication (see MAR) Taken 12/07/2023 1456 by Anju Barrett RN Pain Management Interventions: medication (see MAR) Taken 12/07/2023 1210 by Anju Barrett RN Pain Management Interventions: medication (see MAR) Taken 12/07/2023 0915 by Anju Barrett RN Pain Management Interventions: distraction rest Taken 12/07/2023 0848 by Anju Barrett RN Pain Management Interventions: medication (see MAR) Taken 12/07/2023 0747 by Anju Barrett RN Pain Management Interventions: heat applied Goal: Readiness for Transition of Care Outcome: Progressing Problem: Pain Acute Goal: Optimal Pain Control and Function Outcome: Progressing Intervention: Develop Pain Management Plan Recent Flowsheet Documentation Taken 12/07/2023 1822 by Anju Barrett RN Pain Management Interventions: medication (see MAR) Taken 12/07/2023 1456 by Anju Barrett RN Pain Management Interventions: medication (see MAR) Taken 12/07/2023 1210 by Anju Barrett RN Pain Management Interventions: medication (see MAR) Taken 12/07/2023 0915 by Anju Barrett RN Pain Management Interventions: distraction rest Taken 12/07/2023 0848 by Anju Barrett RN Pain Management Interventions: medication (see MAR) Taken 12/07/2023 0747 by Anju Barrett RN Pain Management Interventions: heat applied Intervention: Prevent or Manage Pain Recent Flowsheet Documentation Taken 12/07/2023 0745 by Anju Barrett RN Sensory Stimulation Regulation: care clustered Sleep/Rest Enhancement: regular sleep/rest pattern promoted Bowel Elimination Promotion: adequate fluid intake promoted ambulation promoted Complementary Therapy: aromatherapy utilized Medication Review/Management: medications reviewed Intervention: Optimize Psychosocial Wellbeing Recent Flowsheet Documentation Taken 12/07/2023 0745 by Anju Barrett RN Supportive Measures: active listening utilized decision-making supported goal-setting facilitated positive reinforcement provided problem-solving facilitated self-care encouraged self-responsibility promoted verbalization of feelings encouraged Problem: Bowel Disease, Inflammatory (Ulcerative Colitis or Crohn's Disease) Goal: Optimal Adaptation to Chronic Illness Outcome: Progressing Intervention: Support Psychosocial Response to Illness Recent Flowsheet Documentation Taken 12/07/2023 0745 by Anju Barrett RN Supportive Measures: active listening utilized decision-making supported goal-setting facilitated positive reinforcement provided problem-solving facilitated self-care encouraged self-responsibility promoted verbalization of feelings encouraged Goal: Diarrhea Symptom Relief Outcome: Progressing Intervention: Manage Diarrhea Recent Flowsheet Documentation Taken 12/07/2023 0745 by Anju Barrett RN Fluid/Electrolyte Management: fluids provided Goal: Absence of Infection Signs and Symptoms Outcome: Progressing Goal: Optimal Nutrition Delivery Outcome: Progressing Goal: Optimal Pain Control and Function Outcome: Progressing Intervention: Prevent or Manage Pain Recent Flowsheet Documentation Taken 12/07/2023 1822 by Anju Barrett RN Pain Management Interventions: medication (see MAR) Taken 12/07/2023 1456 by Anju Barrett RN Pain Management Interventions: medication (see MAR) Taken 12/07/2023 1210 by Anju Barrett RN Pain Management Interventions: medication (see MAR) Taken 12/07/2023 0915 by Anju Barrett RN Pain Management Interventions: distraction rest Taken 12/07/2023 0848 by Anju Barrett RN Pain Management Interventions: medication (see MAR) Taken 12/07/2023 0747 by Anju Barrett RN Pain Management Interventions: heat applied Taken 12/07/2023 0745 by Anju Barrett RN Sleep/Rest Enhancement: regular sleep/rest pattern promoted Complementary Therapy: aromatherapy utilized * Plan of Care - Lupe Paz RN - 12/07/2023 5:20 AM CDT Goal Outcome Evaluation: Plan of Care Reviewed With: patient Overall Patient Progress: improvingOverall Patient Progress: improving Vital Signs: A&O. VSS on RA. Afebrile. Pain/Comfort: abdominal pain 5-9/10. Given dilaudid x2, atarax x2, zofran x2, and simethicone x2. Assessment: LS clear. BS active and audible. Abdominal discomfort. Nausea intermittently. Diet: tolerating fluids and bites of crackers Output: adequate output. Activity/Ambulation: ambulating to room independently. Plan: Continue with pain management. Continue with IV solumedrol. Problem: Adult Inpatient Plan of Care Goal: Plan of Care Review Description: The Plan of Care Review/Shift note should be completed every shift. The Outcome Evaluation is a brief statement about your assessment that the patient is improving, declining, or no change. This information will be displayed automatically on your shift note. 12/07/2023520 by Lupe Paz RN Outcome: Progressing Flowsheets (Taken 12/07/2023520) Plan of Care Reviewed With: patient Overall Patient Progress: no change Goal: Patient-Specific Goal (Individualized) Description: You can add care plan individualizations to a care plan. Examples of Individualizationmight be: Parent requests to be called daily at 9am for status, I have a hard time hearing out of my right ear, or Do not touch me to wake me up as it startles me. 12/07/2023520 by Lupe Paz RN Outcome: Progressing Goal: Absence of Hospital-Acquired Illness or Injury 12/07/2023520 by Lupe Paz RN Outcome: Progressing Intervention: Identify and Manage Fall Risk Recent Flowsheet Documentation Taken 12/07/2023 0000 by Lupe Paz RN Safety Promotion/Fall Prevention: assistive device/personal items within reach clutter free environment maintained Intervention: Prevent Skin Injury Recent Flowsheet Documentation Taken 12/07/2023 0000 by Lupe Paz RN Body Position: position changed independently Skin Protection: adhesive use limited Device Skin Pressure Protection: adhesive use limited Taken 12/06/2023 2326 by Lupe Paz RN Body Position: position changed independently Intervention: Prevent and Manage VTE (Venous Thromboembolism) Risk Recent Flowsheet Documentation Taken 12/07/2023 0000 by Lupe Paz RN VTE Prevention/Management: SCDs (sequential compression devices) off Intervention: Prevent Infection Recent Flowsheet Documentation Taken 12/07/2023 0000 by Lupe Paz RN Infection Prevention: single patient room provided rest/sleep promoted hand hygiene promoted Goal: Optimal Comfort and Wellbeing 12/07/2023520 by Lupe Paz RN Outcome: Progressing Goal: Readiness for Transition of Care 12/07/2023 0521 by Lupe Paz RN Outcome: Progressing Problem: Pain Acute Goal: Optimal Pain Control and Function 12/07/2023 0521 by Lupe Paz RN Outcome: Progressing Intervention: Prevent or Manage Pain Recent Flowsheet Documentation Taken 12/07/2023 0000 by Lupe Paz RN Sensory Stimulation Regulation: care clustered Bowel Elimination Promotion: adequate fluid intake promoted Medication Review/Management: medications reviewed Intervention: Optimize Psychosocial Wellbeing Recent Flowsheet Documentation Taken 12/07/2023 0000 by Lupe Paz RN Supportive Measures: active listening utilized Problem: Bowel Disease, Inflammatory (Ulcerative Colitis or Crohn's Disease) Goal: Optimal Adaptation to Chronic Illness 12/07/2023 0521 by Lupe Paz RN Outcome: Progressing Intervention: Support Psychosocial Response to Illness Recent Flowsheet Documentation Taken 12/07/2023 0000 by Lupe Paz RN Supportive Measures: active listening utilized Goal: Diarrhea Symptom Relief 12/07/2023 0521 by Lupe Paz RN Outcome: Progressing Goal: Absence of Infection Signs and Symptoms 12/07/2023 0521 by Lupe Paz RN Outcome: Progressing Goal: Optimal Nutrition Delivery 12/07/2023 0521 by Lupe Paz RN Outcome: Progressing Goal: Optimal Pain Control and Function 12/07/2023 05 by Lupe Paz RN Outcome: Progressing * Plan of Care - Peggy Jara RN - 12/06/2023 7:02 PM CDT Goal Outcome Evaluation: Plan of Care Reviewed With: patient Overall Patient Progress: no changeOverall Patient Progress: no change Outcome Evaluation: BMs, pain control [id number]: A&Ox4. VSS on RA. Up in room independently. C/o abdominal pain, given PRN Tylenol. Patient would like to have PRNs when available. No BM. Regular diet. LS clear. +BS. IV SL. Problem: Adult Inpatient Plan of Care Goal: Plan of Care Review Description: The Plan of Care Review/Shift note should be completed every shift. The Outcome Evaluation is a brief statement about your assessment that the patient is improving, declining, or no change. This information will be displayed automatically on your shift note. Outcome: Not Progressing Flowsheets (Taken 12/06/2023 1901) Outcome Evaluation: BMs, pain control Plan of Care Reviewed With: patient Overall Patient Progress: no change Goal: Patient-Specific Goal (Individualized) Description: You can add care plan individualizations to a care plan. Examples of Individualizationmight be: Parent requests to be called daily at 9am for status, I have a hard time hearing out of my right ear, or Do not touch me to wake me up as it startles me. Outcome: Not Progressing Goal: Absence of Hospital-Acquired Illness or Injury Outcome: Not Progressing Intervention: Identify and Manage Fall Risk Recent Flowsheet Documentation Taken 12/06/2023 1800 by Peggy Jara RN Safety Promotion/Fall Prevention: assistive device/personal items within reach clutter free environment maintained increase visualization of patient nonskid shoes/slippers when out of bed patient and family education safety round/check completed Intervention: Prevent Skin Injury Recent Flowsheet Documentation Taken 12/06/2023 1800 by Peggy Jara RN Body Position: position changed independently Skin Protection: adhesive use limited Device Skin Pressure Protection: adhesive use limited Intervention: Prevent and Manage VTE (Venous Thromboembolism) Risk Recent Flowsheet Documentation Taken 12/06/2023 1800 by Peggy Jara RN VTE Prevention/Management: SCDs (sequential compression devices) off Goal: Optimal Comfort and Wellbeing Outcome: Not Progressing Intervention: Monitor Pain and Promote Comfort Recent Flowsheet Documentation Taken 12/06/2023 1719 by Peggy Jara RNsquare cutter Interventions: medication (see MAR) Goal: Readiness for Transition of Care Outcome: Not Progressing Problem: Pain Acute Goal: Optimal Pain Control and Function Outcome: Not Progressing Intervention: Develop Pain Management Plan Recent Flowsheet Documentation Taken 12/06/2023 1719 by Peggy Jara RNsquare cutter Interventions: medication (see MAR) Intervention: Prevent or Manage Pain Recent Flowsheet Documentation Taken 12/06/2023 1800 by Peggy Jara RN Sensory Stimulation Regulation: care clustered Bowel Elimination Promotion: adequate fluid intake promoted Medication Review/Management: medications reviewed Intervention: Optimize Psychosocial Wellbeing Recent Flowsheet Documentation Taken 12/06/2023 1800 by Peggy Jara RN Supportive Measures: active listening utilized Problem: Bowel Disease, Inflammatory (Ulcerative Colitis or Crohn's Disease) Goal: Optimal Adaptation to Chronic Illness Outcome: Not Progressing Intervention: Support Psychosocial Response to Illness Recent Flowsheet Documentation Taken 12/06/2023 1800 by Peggy Jara RN Supportive Measures: active listening utilized Goal: Diarrhea Symptom Relief Outcome: Not Progressing Intervention: Manage Diarrhea Recent Flowsheet Documentation Taken 12/06/2023 1800 by Peggy Jara RN Fluid/Electrolyte Management: fluids provided Goal: Absence of Infection Signs and Symptoms Outcome: Not Progressing Intervention: Prevent or Manage Infection Recent Flowsheet Documentation Taken 12/06/2023 1800 by Peggy Jara RN Infection Management: aseptic technique maintained Goal: Optimal Nutrition Delivery Outcome: Not Progressing Goal: Optimal Pain Control and Function Outcome: Not Progressing Intervention: Prevent or Manage Pain Recent Flowsheet Documentation Taken 12/06/2023 1719 by Peggy Jara RNsquare cutter Interventions: medication (see MAR) * Plan of Care - Marisa Isaacs RN - 12/06/2023 2:23 PM CDT Goal Outcome Evaluation: Plan of Care Reviewed With: patient Overall Patient Progress: improvingOverall Patient Progress: improving Afebrile, VSS, pt c/o feeling bloated, abdomen soft, tender, good bowel sounds. States is passing gas but no stool today. Senna given, pt refusing miralax. States pain, cramping is mid abdomen and over to the R side. Dilaudid po given with atarax and simethicone at 1350 when rating pain to a 8. Up ambulating x2 in halls, and up to shower. Ate a few bites of eggs this am, all banana. Not tolerating more to eat at this time. Will continue with IV solumedrol. Pt updated on plan of care. Addendum: Hospitalist here to see pt and pain score up to a 9 after po pain meds. IV dilaudid then given per Hospitalist. ( 1450) Pt teary at this time, will continue to assess pain. Pt does not feelconstipated. Very frustrated at this point. * Plan of Care - Lupe Paz RN - 12/06/2023 6:12 AM CDT Goal Outcome Evaluation: Vital Signs: A&O. VSS on RA. Afebrile. Pain/Comfort: abdominal pain 5-8/10. Given oral dilaudid x1, atarax x2, zofran x2, and simethicone x2. Assessment: LS clear. BS hypoactive. Abdominal discomfort. Nausea intermittently. Remicade dose restarted and completed. Diet: tolerating fluids Output: adequate output. Activity/Ambulation: ambulating to room independently. Plan: Continue with pain management. Continue with IV solumedrol. Problem: Adult Inpatient Plan of Care Goal: Plan of Care Review Description: The Plan of Care Review/Shift note should be completed every shift. The Outcome Evaluation is a brief statement about your assessment that the patient is improving, declining, or no change. This information will be displayed automatically on your shift note. Outcome: Progressing Flowsheets (Taken 12/06/2023 0611) Plan of Care Reviewed With: patient Overall Patient Progress: improving Goal: Patient-Specific Goal (Individualized) Description: You can add care plan individualizations to a care plan. Examples of Individualizationmight be: Parent requests to be called daily at 9am for status, I have a hard time hearing out of my right ear, or Do not touch me to wake me up as it startles me. Outcome: Progressing Goal: Absence of Hospital-Acquired Illness or Injury Outcome: Progressing Intervention: Identify and Manage Fall Risk Recent Flowsheet Documentation Taken 12/05/20232158 by Lupe Paz RN Safety Promotion/Fall Prevention: assistive device/personal items within reach clutter free environment maintained nonskid shoes/slippers when out of bed Intervention: Prevent Skin Injury Recent Flowsheet Documentation Taken 12/06/2023 0418 by Lupe Paz RN Body Position: position changed independently Taken 12/06/2023 0140 by Lupe Paz RN Body Position: position changed independently Taken 12/05/20232158 by Lupe Paz RN Body Position: position changed independently Skin Protection: adhesive use limited Device Skin Pressure Protection: adhesive use limited Intervention: Prevent and Manage VTE (Venous Thromboembolism) Risk Recent Flowsheet Documentation Taken 12/05/20232158 by Lupe Paz RN VTE Prevention/Management: SCDs (sequential compression devices) off Intervention: Prevent Infection Recent Flowsheet Documentation Taken 12/05/20232158 by Lupe Paz RN Infection Prevention: hand hygiene promoted rest/sleep promoted Goal: Optimal Comfort and Wellbeing Outcome: Progressing Intervention: Monitor Pain and Promote Comfort Recent Flowsheet Documentation Taken 12/06/2023 0418 by Lupe Paz RN Pain Management Interventions: medication (see MAR) Taken 12/06/2023 014 by Lupe Paz RN Pain Management Interventions: medication offered but refused rest Taken 12/05/20232158 by Lupe Paz RN Pain Management Interventions: medication (see MAR) Goal: Readiness for Transition of Care Outcome: Progressing Problem: Pain Acute Goal: Optimal Pain Control and Function Outcome: Progressing Intervention: Develop Pain Management Plan Recent Flowsheet Documentation Taken 12/06/2023 0418 by Lupe Pza RN Pain Management Interventions: medication (see MAR) Taken 12/06/2023139 by Lupe Paz RN Pain Management Interventions: medication offered but refused rest Taken 12/05/20232158 by Lupe Paz RN Pain Management Interventions: medication (see MAR) Intervention: Prevent or Manage Pain Recent Flowsheet Documentation Taken 12/05/20232158 by Lupe Paz RN Sensory Stimulation Regulation: care clustered Bowel Elimination Promotion: adequate fluid intake promoted Medication Review/Management: medications reviewed Intervention: Optimize Psychosocial Wellbeing Recent Flowsheet Documentation Taken 12/05/20232158 by Lupe Paz RN Supportive Measures: active listening utilized Problem: Bowel Disease, Inflammatory (Ulcerative Colitis or Crohn's Disease) Goal: Optimal Adaptation to Chronic Illness Outcome: Progressing Intervention: Support Psychosocial Response to Illness Recent Flowsheet Documentation Taken 12/05/20232158 by Lupe Paz RN Supportive Measures: active listening utilized Goal: Diarrhea Symptom Relief Outcome: Progressing Goal: Absence of Infection Signs and Symptoms Outcome: Progressing Intervention: Prevent or Manage Infection Recent Flowsheet Documentation Taken 12/05/20232158 by Lupe Paz RN Infection Management: aseptic technique maintained Goal: Optimal Nutrition Delivery Outcome: Progressing Goal: Optimal Pain Control and Function Outcome: Progressing Intervention: Prevent or Manage Pain Recent Flowsheet Documentation Taken 12/06/2023 0418 by Lupe Paz RN Pain Management Interventions: medication (see MAR) Taken 12/06/2023 0140 by Lupe Paz RN Pain Management Interventions: medication offered but refused rest Taken 12/05/20232158 by Lupe Paz RN Pain Management Interventions: medication (see MAR) * Plan of Care - Peggy Jara RN - 12/05/2023 8:26 PM CDT Goal Outcome Evaluation: Plan of Care Reviewed With: patient Overall Patient Progress: improvingOverall Patient Progress: improving Outcome Evaluation: BM following PRN tap water enema, remicade infusion A&Ox4. VSS on RA. Up in room and hallway independently. C/o abdominal pain, given PRN atarax, toradol, zofran, and simethicone with little to no decrease in pain. Voiding via BR, c/o urinary symptoms. UA ordered. BS hypoactive/faint. Given PRN tap water enema with BM following. Regular diet, reports eating low fiber foods. IV remicade infusion started. Requiring second IV to finish infusion as previous IV became edematous despite blood return. GI following. * Provider Notification - Peggy Jara RN - 12/05/2023 5:33 PM CDT MD Notification Notified Person: MD Notified Person Name: Dr. Gallardo Notification Date/Time: 12/05/2023 3073 Notification Interaction: Vocera page Purpose of Notification: Patient with edema around site of infusing remicade but getting blood return from IV. C/o pain when palpated. Spoke with pharmacy. Not a vesicant. Recommendations? Placing new PIV now to finish infusion. Orders Received: Awaiting orders if needed. Comments: * Provider Notification - Peggy Jara RN - 12/05/2023 2:05 PM CDT Notification Notified Person: Notified Person Name: Dr. Gallardo Notification Date/Time: 12/05/2023 1406 Notification Interaction: Mangatar page Purpose of Notification: Patient states she usually takes a claritin and steroid before receiving her remicade infusion. Does she need either of these ordered prior to her scheduled infusion at 1500? Orders Received: MD to order claritin as patient is already receiving IV steroids. Comments: * Provider Notification - Peggy Jara RN - 12/05/2023 11:06 AM CDT Notification Notified Person: Notified Person Name: Dr. Gallardo Notification Date/Time: 12/05/2023 1106 Notification Interaction: Mangatar page Purpose of Notification: Patient c/o abdominal pain with urination and orange colored/odorous urine. Do you want a UA? Last UA collected on 11/28. Orders Received: UA ordered by . Comments: * Provider Notification - Peggy Jara RN - 12/05/2023 10:56 AM CDT Notification Notified Person: Notified Person Name: Alisa Norman ([facility]) Notification Date/Time: 12/05/2023 1055 Notification Interaction: Phone call Purpose of Notification: Okay to give PRN tap water enema? Had 2 small pebble- like BMs yesterday. Patient wondering if we should try PRN suppository again first before enema? Orders Received: Okay to give enema. Comments: * Plan of Care - Guerda Sharma RN - 12/05/2023 5:55 AM CDT Goal Outcome Evaluation: Plan of Care Reviewed With: patient Overall Patient Progress: improvingOverall Patient Progress: improving VS: Afebrile. Hypertension. Respiratory: WDL; lung sounds clear. GI: Intermittent nausea; PRN Zofran x2 given. PRN Senna x1 given and Simethicone x2 given. Hyperactive bowel sounds. Tender, soft abdomen. : Voiding. Activity: Independent. Pain: Rating pain 6-9. PRN Atarax x2, Toradol x2, Dilaudid x2 given. Lines: L PIV SL. Plan: Pain management. Nausea management. Monitor GI status. Problem: Adult Inpatient Plan of Care Goal: Plan of Care Review Description: The Plan of Care Review/Shift note should be completed every shift. The Outcome Evaluation is a brief statement about your assessment that the patient is improving, declining, or no change. This information will be displayed automatically on your shift note. Outcome: Progressing Flowsheets (Taken 12/05/2023 0513) Plan of Care Reviewed With: patient Overall Patient Progress: improving Goal: Patient-Specific Goal (Individualized) Description: You can add care plan individualizations to a care plan. Examples of Individualizationmight be: Parent requests to be called daily at 9am for status, I have a hard time hearing out of my right ear, or Do not touch me to wake me up as it startles me. Outcome: Progressing Goal: Absence of Hospital-Acquired Illness or Injury Outcome: Progressing Intervention: Identify and Manage Fall Risk Recent Flowsheet Documentation Taken 12/04/20232053 by Guerda Sharma RN Safety Promotion/Fall Prevention: assistive device/personal items within reach clutter free environment maintained lighting adjusted nonskid shoes/slippers when out of bed patient and family education room near nurse's station room organization consistent safety round/check completed Intervention: Prevent Skin Injury Recent Flowsheet Documentation Taken 12/04/20232053 by Guerda Sharma RN Body Position: position changed independently sitting up in bed Skin Protection: adhesive use limited Device Skin Pressure Protection: adhesive use limited tubing/devices free from skin contact Intervention: Prevent and Manage VTE (Venous Thromboembolism) Risk Recent Flowsheet Documentation Taken 12/04/20232053 by Guerda Sahrma RN VTE Prevention/Management: (Ambulatory) SCDs (sequential compression devices) off Intervention: Prevent Infection Recent Flowsheet Documentation Taken 12/04/20232053 by Guerda Sharma RN Infection Prevention: environmental surveillance performed equipment surfaces disinfected hand hygiene promoted personal protective equipment utilized rest/sleep promoted single patient room provided Goal: Optimal Comfort and Wellbeing Outcome: Progressing Intervention: Monitor Pain and Promote Comfort Recent Flowsheet Documentation Taken 12/05/2023 014 by Guerda Sharma RN Pain Management Interventions: medication (see MAR) Taken 12/04/20232053 by Guerda Sharma RN Pain Management Interventions: medication (see MAR) rest Goal: Readiness for Transition of Care Outcome: Progressing Problem: Pain Acute Goal: Optimal Pain Control and Function Outcome: Progressing Intervention: Develop Pain Management Plan Recent Flowsheet Documentation Taken 12/05/2023 014 by Guerda Sharma RN Pain Management Interventions: medication (see MAR) Taken 12/04/20232053 by Guerda Sharma RN Pain Management Interventions: medication (see MAR) rest Intervention: Prevent or Manage Pain Recent Flowsheet Documentation Taken 12/04/20232053 by Guerda Sharma RN Sensory Stimulation Regulation: care clustered quiet environment promoted television on Sleep/Rest Enhancement: comfort measures consistent schedule promoted regular sleep/rest pattern promoted Bowel Elimination Promotion: adequate fluid intake promoted ambulation promoted Medication Review/Management: medications reviewed Intervention: Optimize Psychosocial Wellbeing Recent Flowsheet Documentation Taken 12/04/20232053 by Guerda Sharma RN Supportive Measures: active listening utilized decision-making supported goal-setting facilitated problem-solving facilitated relaxation techniques promoted self-care encouraged verbalization of feelings encouraged Problem: Bowel Disease, Inflammatory (Ulcerative Colitis or Crohn's Disease) Goal: Optimal Adaptation to Chronic Illness Outcome: Progressing Intervention: Support Psychosocial Response to Illness Recent Flowsheet Documentation Taken 12/04/20232053 by Guerda Sharma RN Supportive Measures: active listening utilized decision-making supported goal-setting facilitated problem-solving facilitated relaxation techniques promoted self-care encouraged verbalization of feelings encouraged Goal: Diarrhea Symptom Relief Outcome: Progressing Intervention: Manage Diarrhea Recent Flowsheet Documentation Taken 12/04/20232053 by Guerda Sharma RN Fluid/Electrolyte Management: fluids provided Goal: Absence of Infection Signs and Symptoms Outcome: Progressing Goal: Optimal Nutrition Delivery Outcome: Progressing Goal: Optimal Pain Control and Function Outcome: Progressing Intervention: Prevent or Manage Pain Recent Flowsheet Documentation Taken 12/05/2023 0145 by Guerda Sharma RN Pain Management Interventions: medication (see MAR) Taken 12/04/20232053 by Guerda Sharma RN Pain Management Interventions: medication (see MAR) rest Sleep/Rest Enhancement: comfort measures consistent schedule promoted regular sleep/rest pattern promoted * Plan of Care - Kristin Mabry RN - 12/04/2023 12:50 PM CDT Goal Outcome Evaluation: Plan of Care Reviewed With: patient Overall Patient Progress: improvingOverall Patient Progress: improving Updates: Hawa is doing okay today. Was feeling better this morning before having miralax in [facility] and has had increasing pain since. VSS. Independent in room, ambulating in hallways. GI/: Abdominal discomfort/cramping and tender to palpation. Minimal flatus, hyperactive BS, voiding WDL. 2 small/soft/formed BM this shift after dulcolax - 2 senna and miralax also given today. Intermittent nausea, ODT zofran given x2. Continuing to attempt to tolerate bites of regular diet. IV: Restarted in L wrist, SL b/t meds, flushes well. Some redness noted at insertion site but pt has no complaints of discomfort. Pain/Comfort: 6-06/17. Toradol, atarax, simethicone, oral dilaudid x1, IV dilaudid x2 providing adequate pain management per pt. Skin: WDL x bruising from previous IVs on bilateral arms. Social: Visitors at bedside today. Attended Em[employer] service this evening. Plan: Continue to monitor GI status, encourage OOB activity, assess diet tolerance, and provide forcomfort and needs. Pt considering enema and a shower this evening. Problem: Adult Inpatient Plan of Care Goal: Plan of Care Review Description: The Plan of Care Review/Shift note should be completed every shift. The Outcome Evaluation is a brief statement about your assessment that the patient is improving, declining, or no change. This information will be displayed automatically on your shift note. Outcome: Progressing Flowsheets (Taken 12/04/2023 1250) Plan of Care Reviewed With: patient Overall Patient Progress: improving Goal: Patient-Specific Goal (Individualized) Description: You can add care plan individualizations to a care plan. Examples of Individualizationmight be: Parent requests to be called daily at 9am for status, I have a hard time hearing out of my right ear, or Do not touch me to wake me up as it startles me. Outcome: Progressing Goal: Absence of Hospital-Acquired Illness or Injury Outcome: Progressing Intervention: Identify and Manage Fall Risk Recent Flowsheet Documentation Taken 12/04/2023 08 by Kristin Mabry RN Safety Promotion/Fall Prevention: assistive device/personal items within reach clutter free environment maintained nonskid shoes/slippers when out of bed patient and family education safety round/check completed treat underlying cause Intervention: Prevent Skin Injury Recent Flowsheet Documentation Taken 12/04/2023 0809 by Kristin Mabry RN Skin Protection: adhesive use limited Device Skin Pressure Protection: adhesive use limited Taken 12/04/2023 0807 by Kristin Mabry RN Body Position: position changed independently sitting up in bed Intervention: Prevent and Manage VTE (Venous Thromboembolism) Risk Recent Flowsheet Documentation Taken 12/04/2023 0809 by Kristin Mabry RN VTE Prevention/Management: SCDs (sequential compression devices) off Intervention: Prevent Infection Recent Flowsheet Documentation Taken 12/04/2023 0809 by Kristin Mabry RN Infection Prevention: environmental surveillance performed equipment surfaces disinfected hand hygiene promoted rest/sleep promoted single patient room provided Goal: Optimal Comfort and Wellbeing Outcome: Progressing Intervention: Monitor Pain and Promote Comfort Recent Flowsheet Documentation Taken 12/04/2023 0956 by Kristin Mabry RN Pain Management Interventions: medication (see MAR) Taken 12/04/2023 0807 by Kristin Mabry RN Pain Management Interventions: medication (see MAR) heat applied Goal: Readiness for Transition of Care Outcome: Progressing Problem: Pain Acute Goal: Optimal Pain Control and Function Outcome: Progressing Intervention: Develop Pain Management Plan Recent Flowsheet Documentation Taken 12/04/2023 0956 by Kristin Mabry RN Pain Management Interventions: medication (see MAR) Taken 12/04/2023 08 by Kristin Mabry RN Pain Management Interventions: medication (see MAR) heat applied Intervention: Prevent or Manage Pain Recent Flowsheet Documentation Taken 12/04/2023 0809 by Kristin Mabry RN Sensory Stimulation Regulation: care clustered Sleep/Rest Enhancement: relaxation techniques promoted Bowel Elimination Promotion: adequate fluid intake promoted ambulation promoted Medication Review/Management: medications reviewed Intervention: Optimize Psychosocial Wellbeing Recent Flowsheet Documentation Taken 12/04/2023 0809 by Kristin Mabry RN Supportive Measures: active listening utilized decision-making supported goal-setting facilitated positive reinforcement provided relaxation techniques promoted verbalization of feelings encouraged Problem: Bowel Disease, Inflammatory (Ulcerative Colitis or Crohn's Disease) Goal: Optimal Adaptation to Chronic Illness Outcome: Progressing Intervention: Support Psychosocial Response to Illness Recent Flowsheet Documentation Taken 12/04/2023 08 by Kristin Mabry RN Supportive Measures: active listening utilized decision-making supported goal-setting facilitated positive reinforcement provided relaxation techniques promoted verbalization of feelings encouraged Goal: Diarrhea Symptom Relief Outcome: Progressing Intervention: Manage Diarrhea Recent Flowsheet Documentation Taken 12/04/2023 08 by Kristin Mabry RN Fluid/Electrolyte Management: fluids provided Goal: Absence of Infection Signs and Symptoms Outcome: Progressing Intervention: Prevent or Manage Infection Recent Flowsheet Documentation Taken 12/04/2023 0809 by Kristin Mabry RN Isolation Precautions: enteric precautions discontinued Goal: Optimal Nutrition Delivery Outcome: Progressing Goal: Optimal Pain Control and Function Outcome: Progressing Intervention: Prevent or Manage Pain Recent Flowsheet Documentation Taken 12/04/2023 0956 by Kristin Mabry RN Pain Management Interventions: medication (see MAR) Taken 12/04/2023 08 by Kristin Mabry RN Sleep/Rest Enhancement: relaxation techniques promoted Taken 12/04/2023 08 by Kristin Mabry RN Pain Management Interventions: medication (see MAR) heat applied * Plan of Care - Guerda Sharma RN - 12/04/2023 3:31 AM CDT Goal Outcome Evaluation: Plan of Care Reviewed With: patient Overall Patient Progress: improving VS: Afebrile. Intermittent hypertension. Other VSS. Respiratory: WDL; lung sounds clear. GI: Intermittent nausea. Passing gas. Normoactive bowel sounds. Tender, soft abdomen. : Voiding. Activity: Independent. Encouraged ambulation as tolerated. Pain: Rating pain 5-7. PRN Dilaudid x1, PRN Toradol x1, and PRN Atarax x1 given. Lines: R PIV SL. Plan: Pain management. Nausea management. IV solumedrol. Monitor GI status. Problem: Adult Inpatient Plan of Care Goal: Plan of Care Review Description: The Plan of Care Review/Shift note should be completed every shift. The Outcome Evaluation is a brief statement about your assessment that the patient is improving, declining, or no change. This information will be displayed automatically on your shift note. Outcome: Progressing Flowsheets (Taken 12/04/2023 033) Plan of Care Reviewed With: patient Overall Patient Progress: improving Goal: Patient-Specific Goal (Individualized) Description: You can add care plan individualizations to a care plan. Examples of Individualizationmight be: Parent requests to be called daily at 9am for status, I have a hard time hearing out of my right ear, or Do not touch me to wake me up as it startles me. Outcome: Progressing Goal: Absence of Hospital-Acquired Illness or Injury Outcome: Progressing Intervention: Identify and Manage Fall Risk Recent Flowsheet Documentation Taken 12/03/20232104 by Guerda Sharma RN Safety Promotion/Fall Prevention: assistive device/personal items within reach clutter free environment maintained lighting adjusted nonskid shoes/slippers when out of bed patient and family education room near nurse's station room organization consistent safety round/check completed Intervention: Prevent Skin Injury Recent Flowsheet Documentation Taken 12/03/20230 by Guerda Sharma RN Body Position: position changed independently Taken 12/03/20232104 by Guerda Sharma RN Body Position: position changed independently Skin Protection: adhesive use limited Device Skin Pressure Protection: adhesive use limited tubing/devices free from skin contact Intervention: Prevent and Manage VTE (Venous Thromboembolism) Risk Recent Flowsheet Documentation Taken 12/03/20232104 by Guerda Sharma RN VTE Prevention/Management: (Ambulatory) SCDs (sequential compression devices) off Intervention: Prevent Infection Recent Flowsheet Documentation Taken 12/03/20232104 by Guerda Sharma RN Infection Prevention: environmental surveillance performed equipment surfaces disinfected hand hygiene promoted personal protective equipment utilized rest/sleep promoted single patient room provided Goal: Optimal Comfort and Wellbeing Outcome: Progressing Intervention: Monitor Pain and Promote Comfort Recent Flowsheet Documentation Taken 12/03/20230 by Guerda Sharma RN Pain Management Interventions: medication (see MAR) Taken 12/03/20232104 by Guerda Sharma RN Pain Management Interventions: medication (see MAR) Goal: Readiness for Transition of Care Outcome: Progressing Problem: Pain Acute Goal: Optimal Pain Control and Function Outcome: Progressing Intervention: Develop Pain Management Plan Recent Flowsheet Documentation Taken 12/03/20232239 by Guerda Sharma RN Pain Management Interventions: medication (see MAR) Taken 12/03/20232104 by Guerda Sharma RN Pain Management Interventions: medication (see MAR) Intervention: Prevent or Manage Pain Recent Flowsheet Documentation Taken 12/03/20232104 by Guerda Sharma RN Sensory Stimulation Regulation: care clustered quiet environment promoted television on Sleep/Rest Enhancement: comfort measures consistent schedule promoted regular sleep/rest pattern promoted Bowel Elimination Promotion: adequate fluid intake promoted ambulation promoted Medication Review/Management: medications reviewed Intervention: Optimize Psychosocial Wellbeing Recent Flowsheet Documentation Taken 12/03/20232104 by Guerda Sharma RN Supportive Measures: active listening utilized decision-making supported goal-setting facilitated problem-solving facilitated relaxation techniques promoted self-care encouraged verbalization of feelings encouraged Problem: Bowel Disease, Inflammatory (Ulcerative Colitis or Crohn's Disease) Goal: Optimal Adaptation to Chronic Illness Outcome: Progressing Intervention: Support Psychosocial Response to Illness Recent Flowsheet Documentation Taken 12/03/20232104 by Guerda Sharma RN Supportive Measures: active listening utilized decision-making supported goal-setting facilitated problem-solving facilitated relaxation techniques promoted self-care encouraged verbalization of feelings encouraged Goal: Diarrhea Symptom Relief Outcome: Progressing Intervention: Manage Diarrhea Recent Flowsheet Documentation Taken 12/03/20232104 by Guerda Sharma RN Fluid/Electrolyte Management: fluids provided Goal: Absence of Infection Signs and Symptoms Outcome: Progressing Goal: Optimal Nutrition Delivery Outcome: Progressing Goal: Optimal Pain Control and Function Outcome: Progressing Intervention: Prevent or Manage Pain Recent Flowsheet Documentation Taken 12/03/2023 2240 by Guerda Sharma RN Pain Management Interventions: medication (see MAR) Taken 12/03/20232104 by Guerda Sharma RN Pain Management Interventions: medication (see MAR) Sleep/Rest Enhancement: comfort measures consistent schedule promoted regular sleep/rest pattern promoted * Plan of Care - Marisa Isaacs RN - 12/03/2023 2:30 PM CDT Goal Outcome Evaluation: Plan of Care Reviewed With: patient Overall Patient Progress: improvingOverall Patient Progress: improving Afebrile, VSS, BP continues slightly elevated, 155/99, 142/96,pt c/o abdominal pain prior to MR enterography but increased to an 8 after lying on stomach during scan. IV dilaudid then given per pt request and pt's pain then to a 4. Pt passing gas but no stool, given senna and dulcolax for good results. Has had 3 stools. Had skim milk and cream of rice for lunch which was ok'd per [facility]. Pt has continued with abdominal pain/soreness, IV dilaudid given at 1608 for a pain of 7, pt then took po dilaudid with toradol at 1900. Has had 2 additional stools and was feeling hungry at 1800. Continues on IV Solumedrol. Will continue with plan of care. Problem: Adult Inpatient Plan of Care Goal: Plan of Care Review Description: The Plan of Care Review/Shift note should be completed every shift. The Outcome Evaluation is a brief statement about your assessment that the patient is improving, declining, or no change. This information will be displayed automatically on your shift note. Outcome: Progressing Flowsheets (Taken 12/03/2023 1428) Plan of Care Reviewed With: patient Overall Patient Progress: improving Goal: Patient-Specific Goal (Individualized) Description: You can add care plan individualizations to a care plan. Examples of Individualizationmight be: Parent requests to be called daily at 9am for status, I have a hard time hearing out of my right ear, or Do not touch me to wake me up as it startles me. Outcome: Progressing Goal: Absence of Hospital-Acquired Illness or Injury Outcome: Progressing Intervention: Identify and Manage Fall Risk Recent Flowsheet Documentation Taken 12/03/2023 1000 by Marisa Isaacs RN Safety Promotion/Fall Prevention: clutter free environment maintained assistive device/personal items within reach Intervention: Prevent Skin Injury Recent Flowsheet Documentation Taken 12/03/2023 1000 by Marisa Isaacs RN Body Position: position changed independently Skin Protection: adhesive use limited Device Skin Pressure Protection: adhesive use limited tubing/devices free from skin contact Intervention: Prevent and Manage VTE (Venous Thromboembolism) Risk Recent Flowsheet Documentation Taken 12/03/2023 1000 by Marisa Isaacs RN VTE Prevention/Management: (ambulatory) SCDs (sequential compression devices) off Intervention: Prevent Infection Recent Flowsheet Documentation Taken 12/03/2023 1000 by Marisa Isaacs RN Infection Prevention: rest/sleep promoted hand hygiene promoted single patient room provided Goal: Optimal Comfort and Wellbeing Outcome: Progressing Intervention: Monitor Pain and Promote Comfort Recent Flowsheet Documentation Taken 12/03/2023 1148 by Marisa Isaacs RN Pain Management Interventions: medication (see MAR) [id number] dosing utilized care clustered heat applied Taken 12/03/2023 0928 by Marisa Isaacs RN Pain Management Interventions: medication (see MAR) care clustered heat applied Goal: Readiness for Transition of Care Outcome: Progressing * Plan of Care - Guerda Sharma RN - 12/03/2023 1:09 AM CDT Goal Outcome Evaluation: Plan of Care Reviewed With: patient Overall Patient Progress: no change VS: Afebrile. Hypertensive. Respiratory: WDL; lung sounds clear. GI: No BM overnight. Hypoactive bowel sounds. Intermittent nausea; PRN Zofran x1 given. Soft, tender abdomen. : Voiding. Activity: Independent . Pt showered in evening hours. Pain: Rating pain 6-8. PRN Dilaudid x2, PRN Atarax x1, and PRN Toradol x2 given. Lines: R PIV SL. Plan: Pain management. Nausea management. IV Solumedrol. Monitor GI status. Problem: Adult Inpatient Plan of Care Goal: Plan of Care Review Description: The Plan of Care Review/Shift note should be completed every shift. The Outcome Evaluation is a brief statement about your assessment that the patient is improving, declining, or no change. This information will be displayed automatically on your shift note. 12/03/2023108 by Guerda Sharma RN Outcome: Progressing Flowsheets (Taken 12/03/2023108) Plan of Care Reviewed With: patient Overall Patient Progress: no change 12/03/2023106 by Guerda Sharma RN Outcome: Not Progressing Flowsheets (Taken 12/03/2023106) Plan of Care Reviewed With: patient Overall Patient Progress: no change Goal: Patient-Specific Goal (Individualized) Description: You can add care plan individualizations to a care plan. Examples of Individualizationmight be: Parent requests to be called daily at 9am for status, I have a hard time hearing out of my right ear, or Do not touch me to wake me up as it startles me. 12/03/2023108 by Guerda Sharma RN Outcome: Progressing 12/03/2023106 by Guerda Sharma RN Outcome: Not Progressing Goal: Absence of Hospital-Acquired Illness or Injury 12/03/2023108 by Guerda Sharma RN Outcome: Progressing 12/03/2023106 by Guerda Sharma RN Outcome: Not Progressing Intervention: Identify and Manage Fall Risk Recent Flowsheet Documentation Taken 12/02/20232056 by Guerda Sharma RN Safety Promotion/Fall Prevention: assistive device/personal items within reach clutter free environment maintained lighting adjusted nonskid shoes/slippers when out of bed patient and family education room near nurse's station room organization consistent safety round/check completed Intervention: Prevent Skin Injury Recent Flowsheet Documentation Taken 12/02/20232339 by Guerda Sharma RN Body Position: position changed independently Taken 12/02/20232056 by Guerda Sharma RN Body Position: position changed independently Skin Protection: adhesive use limited Device Skin Pressure Protection: adhesive use limited tubing/devices free from skin contact Intervention: Prevent and Manage VTE (Venous Thromboembolism) Risk Recent Flowsheet Documentation Taken 12/02/20232056 by Guerda Sharma RN VTE Prevention/Management: (Ambulatory) SCDs (sequential compression devices) off Intervention: Prevent Infection Recent Flowsheet Documentation Taken 12/02/20232056 by Guerda Sharma RN Infection Prevention: environmental surveillance performed equipment surfaces disinfected hand hygiene promoted personal protective equipment utilized rest/sleep promoted single patient room provided Goal: Optimal Comfort and Wellbeing 12/03/2023108 by Guerda Sharma RN Outcome: Progressing 12/03/2023106 by Guerda Sharma RN Outcome: Not Progressing Intervention: Monitor Pain and Promote Comfort Recent Flowsheet Documentation Taken 12/02/20232339 by Guerda Sharma RN Pain Management Interventions: medication (see MAR) heat applied rest repositioned Taken 12/02/20232114 by Guerda Sharma RN Pain Management Interventions: heat applied rest repositioned shower Taken 12/02/20232056 by Guerda Sharma RN Pain Management Interventions: heat applied medication (see MAR) Goal: Readiness for Transition of Care 12/03/2023108 by Guerda Sharma RN Outcome: Progressing 12/03/2023106 by Guerda Sharma RN Outcome: Not Progressing Problem: Pain Acute Goal: Optimal Pain Control and Function 12/03/2023108 by Guerda Sharma RN Outcome: Progressing 12/03/2023106 by Guerda Sharma RN Outcome: Not Progressing Intervention: Develop Pain Management Plan Recent Flowsheet Documentation Taken 12/02/20232339 by Guerda Sharma RN Pain Management Interventions: medication (see MAR) heat applied rest repositioned Taken 12/02/20232114 by Guerda Sharma RN Pain Management Interventions: heat applied rest repositioned shower Taken 12/02/20232056 by Guerda Sharma RN Pain Management Interventions: heat applied medication (see MAR) Intervention: Prevent or Manage Pain Recent Flowsheet Documentation Taken 12/02/20232056 by Guerda Sharma RN Sensory Stimulation Regulation: care clustered lighting decreased quiet environment promoted television on Sleep/Rest Enhancement: awakenings minimized comfort measures regular sleep/rest pattern promoted room darkened Bowel Elimination Promotion: adequate fluid intake promoted ambulation promoted Medication Review/Management: medications reviewed high-risk medications identified Intervention: Optimize Psychosocial Wellbeing Recent Flowsheet Documentation Taken 12/02/20232056 by Guerda Sharma RN Supportive Measures: active listening utilized decision-making supported goal-setting facilitated relaxation techniques promoted self-care encouraged verbalization of feelings encouraged Problem: Bowel Disease, Inflammatory (Ulcerative Colitis or Crohn's Disease) Goal: Optimal Adaptation to Chronic Illness 12/03/2023108 by Guerda Sharma RN Outcome: Progressing 12/03/2023106 by Guerda Sharma RN Outcome: Not Progressing Intervention: Support Psychosocial Response to Illness Recent Flowsheet Documentation Taken 12/02/20232056 by Guerda Sharma RN Supportive Measures: active listening utilized decision-making supported goal-setting facilitated relaxation techniques promoted self-care encouraged verbalization of feelings encouraged Goal: Diarrhea Symptom Relief 12/03/2023108 by Guerda Sharma RN Outcome: Progressing 12/03/2023106 by Guerda Sharma RN Outcome: Not Progressing Goal: Absence of Infection Signs and Symptoms 12/03/2023108 by Guerda Sharma RN Outcome: Progressing 12/03/2023106 by Guerda Sharma RN Outcome: Not Progressing Goal: Optimal Nutrition Delivery 12/03/2023108 by Guerda Sharma RN Outcome: Progressing 12/03/2023106 by Guerda Sharma RN Outcome: Not Progressing Goal: Optimal Pain Control and Function 12/03/2023108 by Guerda Sharma RN Outcome: Progressing 12/03/2023106 by Guerda Sharma RN Outcome: Not Progressing Intervention: Prevent or Manage Pain Recent Flowsheet Documentation Taken 12/02/2023 2340 by Guerda Sharma RN Pain Management Interventions: medication (see MAR) heat applied rest repositioned Taken 12/02/20232114 by Guerda Sharma RN Pain Management Interventions: heat applied rest repositioned shower Taken 12/02/20232056 by Guerda Sharma square cutter Interventions: heat applied medication (see MAR) Sleep/Rest Enhancement: awakenings minimized comfort measures regular sleep/rest pattern promoted room darkened * Plan of Care - Rebecca Garcia RN - 12/02/2023 2:06 PM CDT Goal Outcome Evaluation: Plan of Care Reviewed With: patient Overall Patient Progress: no changeOverall Patient Progress: no change Outcome Evaluation: Pain is being managed with heating pad, PO atarax and dilaudid, IV toradol and dilaudid. IV zofran x1 given for nausea. Senna also given per patient request. On IV solumedrol. Patient is eating regular diet and ambulating. No stools. GI ordered MRI which will be completed in themorning as patient needs to be NPO for 6 hours prior, ativan ordered to be given prior to MRI per patient request. BP 129/85 (BP Location: Left arm) Pulse 79 Temp 98.1 ??F (36.7 ??C) (Oral) Resp 16 Ht 1.6 m(5' 3) Wt 67.5 kg (148 lb 13 oz) SpO2 96% BMI 26.36 kg/m?? Problem: Adult Inpatient Plan of Care Goal: Plan of Care Review Description: The Plan of Care Review/Shift note should be completed every shift. The Outcome Evaluation is a brief statement about your assessment that the patient is improving, declining, or no change. This information will be displayed automatically on your shift note. Flowsheets (Taken 12/02/2023 1351) Outcome Evaluation: Pain is being managed with heating pad, PO atarax and dilaudid, IV toradol and dilaudid. IV zofran x1 given for nausea. Senna also given per patient request. On IV solumedrol. Patient is eating regular diet and ambulating. No stools. GI ordered MRI which will be completed in themorning as patient needs to be NPO for 6 hours prior, ativan ordered to be given prior to MRI per patient request. Plan of Care Reviewed With: patient Overall Patient Progress: no change Goal: Absence of Hospital-Acquired Illness or Injury Intervention: Identify and Manage Fall Risk Recent Flowsheet Documentation Taken 12/02/2023816 by Rebecca Garcia RN Safety Promotion/Fall Prevention: safety round/check completed Intervention: Prevent Skin Injury Recent Flowsheet Documentation Taken 12/02/2023816 by Rebecca Garcia RN Body Position: position changed independently Intervention: Prevent and Manage VTE (Venous Thromboembolism) Risk Recent Flowsheet Documentation Taken 12/02/2023 08 by Rebecca Garcia RN VTE Prevention/Management: SCDs (sequential compression devices) off Goal: Optimal Comfort and Wellbeing Intervention: Monitor Pain and Promote Comfort Recent Flowsheet Documentation Taken 12/02/2023 1231 by Rebecca Garcia RN Pain Management Interventions: medication (see MAR) Taken 12/02/2023 1058 by Rebecca Garcia RN Pain Management Interventions: medication (see MAR) Taken 12/02/2023 0900 by Rebecca Garcia RN Pain Management Interventions: ambulation/increased activity Taken 12/02/2023 08 by Rebecca Garcia RN Pain Management Interventions: medication (see MAR) Problem: Pain Acute Goal: Optimal Pain Control and Function Intervention: Develop Pain Management Plan Recent Flowsheet Documentation Taken 12/02/2023 1231 by Rebecca Garcia RN Pain Management Interventions: medication (see MAR) Taken 12/02/2023 1058 by Rebecca Garcia RN Pain Management Interventions: medication (see MAR) Taken 12/02/2023 0900 by Rebecca Garcia RN Pain Management Interventions: ambulation/increased activity Taken 12/02/2023 08 by Rebecca Garcia RN Pain Management Interventions: medication (see MAR) Intervention: Prevent or Manage Pain Recent Flowsheet Documentation Taken 12/02/2023816 by Rebecca Garcia RN Medication Review/Management: medications reviewed Problem: Bowel Disease, Inflammatory (Ulcerative Colitis or Crohn's Disease) Goal: Optimal Pain Control and Function Intervention: Prevent or Manage Pain Recent Flowsheet Documentation Taken 12/02/2023 1231 by Rebecca Garcia RN Pain Management Interventions: medication (see MAR) Taken 12/02/2023 1058 by Rebecca Garcia RN Pain Management Interventions: medication (see MAR) Taken 12/02/2023 0900 by Rebecca Garcia RN Pain Management Interventions: ambulation/increased activity Taken 12/02/2023 0817 by Rebecca Garcia RN Pain Management Interventions: medication (see MAR) * Plan of Care - Odalys Yoder RN - 12/02/2023 5:18 AM CDT Goal Outcome Evaluation: Plan of Care Reviewed With: patient Overall Patient Progress: no change Orientation: Alert and oriented x4. Appropriately expressing frustrations with prolonged illness and course. VSS. 97% on RA. afebrile. LS: clear and equal bilaterally. GI: Passing gas. Audible bowel sounds. no stool overnight. Denies N/V. : Adequate urine output. Skin: intact Activity: Independent. Pt sleeping between cares. Up to bathroom ad gerry. In recliner for comfort asneeded. . Pain: 8/10 abdominal pain described as cramping radiating to back spasms. IV dilaudid x2. Oral dilaudid x1. Atarax x1. Toradol x1. Heating pad for comfort. Updates/Plan: Continue with current cares. * Plan of Care - Marisa Isaacs RN - 12/01/2023 11:45 PM CDT Goal Outcome Evaluation: Plan of Care Reviewed With: patient Overall Patient Progress: no changeOverall Patient Progress: no change Afebrile, VSS, BP slightly up at 147/93. Pt continues with cramping pain, rating pain to a 8. Dilaudid 0.5 mg given with atarax , pt then stating pain decreases to a 4 but doesn't last, pain just creeps back up again. IV toradol also given x2 this shift. Aqua K pad to abdomen for comfort. Restless at times with pain and frustrated and teary at times tonight with progress. Out in [place] to ambulate x1. Voiding well, no stool. Did eat about 1/2 her supper. Drinking water. IV saline locked betweenpain meds. Continues on IV solumedrol. Aware of plan of care. * Utilization Review - Jesus Gilbert MD - 12/01/2023 4:41 PM CDT [facility] Utilization Review Admission Status; Secondary Review Determination Admission Date: 11/29/2023 2:06 PM Under the authority of the Utilization Management Committee, the utilization review process indicated a secondary review on the above patient. The review outcome is based on review of the medical records, discussions with staff, and applying clinical experience noted on the date of the review. (X) Inpatient Status Appropriate - This patient's medical care is consistent with medical management for inpatient care and reasonable inpatient medical practice. RATIONALE FOR DETERMINATION Hortensia Buitrago is a 63 year old female with past medical history of Crohn's disease, who presentedwith abdominal pain, nausea and emesis along with diarrhea, and is admitted with acute Crohn's flare, intractable abdominal pain and failed outpatient infliximab therapy. She is started on high-dose IV Solu- Medrol, IV fluids, bowel rest and supportive cares. Still has abdominal pain and difficulty with oral intake due to nausea and abdominal pain this morning. Plan to continue current regimen andclose monitoring until resolution of symptoms. In light of failed observation cares, suboptimal clinical improvement and need for ongoing IV steroids and close monitoring with anticipated length of stay more than 2 midnights, it is reasonable to advance to inpatient status. Recommendations communicated to the primary team Dr. Ann. The information on this document is developed by the utilization review team in order for the business office to ensure compliance. This only denotes the appropriateness of proper admission status and does not reflect the quality of care rendered. Sincerely, Jesus Gilbert MD, MS Physician Advisor Utilization Review-Ord * Plan of Care - Kelsea You RN - 12/01/2023 12:00 PM CDT PRIMARY DIAGNOSIS: ACUTE PAIN OUTPATIENT/OBSERVATION GOALS TO BE MET BEFORE DISCHARGE: 1. Pain Status: Improved but still requiring IV narcotics. 2. Return to near baseline physical activity: Yes 3. Cleared for discharge by consultants (if involved): No Appellate Conferee Nurse Safe discharge environment identified: Yes Barriers to discharge: Yes Entered by: Kelsea You RN 12/01/2023 Please review provider order for any additional goals. Nurse to notify provider when observation goals have been met and patient is ready for discharge. A/O x4. IV saline locked. Reg diet. Edema LEs. Abdominal pain- IV Dilaudid and Toradol given with some relief. Independent. K and Mg protocol. No BM yet- senna given. * Plan of Care - Kelsea You RN - 12/01/2023 8:00 AM CDT PRIMARY DIAGNOSIS: ACUTE PAIN OUTPATIENT/OBSERVATION GOALS TO BE MET BEFORE DISCHARGE: 1. Pain Status: Improved but still requiring IV narcotics. 2. Return to near baseline physical activity: Yes 3. Cleared for discharge by consultants (if involved): No Appellate Conferee Nurse Safe discharge environment identified: Yes Barriers to discharge: Yes Entered by: Kelsea You RN 12/01/2023 Please review provider order for any additional goals. Nurse to notify provider when observation goals have been met and patient is ready for discharge. A/O x4. NS @100. Reg diet. Edema LEs. Independent. K and Mg protocol. * Plan of Care - Madison Pastor RN - 12/01/2023 1:03 AM CDT Shift: 9790 - 7733 Goal Outcome Evaluation: Plan of Care reviewed with: patient Overall patient progress: stable Vitals: VSS Pain: pain ranging from 5-8/10, pt states pain never gets below a 5 even with medication. Notable Events: Pt A&O x4, up ind in room. Pt reports she has been unable to have a BM all day,concerned as she feels bloated and like there's pressure in her abdomen - denies being able to passgas. PRN dilaudid given x3, PRN atarax given x2, see MAR. Pt ambulated in hallways. Clustered caresto promote rest. Plan: monitor VS, manage pain/discomfort, encourage activity * Plan of Care - Chanelle Stewart RN - 11/30/2023 7:31 PM CDT Goal Outcome Evaluation: 1823-4241 Vitals: VSS. Afebrile. Independent in room. Resp: WDL. LS clear and equal GI/: abdomen rounded, soft and tender in all four quadrants, pt states feeling bloated, not passing flatus per pt, no BM this shift, BS active and audible. Denies N/V. Tolerating regular diet. Voiding WDL. IV: WDL dressing c/d/i, infusing NS @100 Pain/Comfort: 5/10. Heat applied, declined pain medication Skin: WDL Social: WDL coping effectively Plan: collect stool sample once pt has BM, K & mg protocol, monitor CRP, and provide for comfort and needs. Problem: Adult Inpatient Plan of Care Goal: Plan of Care Review Description: The Plan of Care Review/Shift note should be completed every shift. The Outcome Evaluation is a brief statement about your assessment that the patient is improving, declining, or no change. This information will be displayed automatically on your shift note. Outcome: Progressing Goal: Patient-Specific Goal (Individualized) Description: You can add care plan individualizations to a care plan. Examples of Individualizationmight be: Parent requests to be called daily at 9am for status, I have a hard time hearing out of my right ear, or Do not touch me to wake me up as it startles me. Outcome: Progressing Goal: Absence of Hospital-Acquired Illness or Injury Outcome: Progressing Intervention: Identify and Manage Fall Risk Recent Flowsheet Documentation Taken 11/30/2023 1625 by Chanelle Stewart RN Safety Promotion/Fall Prevention: patient and family education room organization consistent safety round/check completed Intervention: Prevent Skin Injury Recent Flowsheet Documentation Taken 11/30/2023 1625 by Chanelle Stewart RN Body Position: position changed independently Skin Protection: adhesive use limited Device Skin Pressure Protection: tubing/devices free from skin contact adhesive use limited Intervention: Prevent and Manage VTE (Venous Thromboembolism) Risk Recent Flowsheet Documentation Taken 11/30/2023 1625 by Chanelle Stewart RN VTE Prevention/Management: (mobile) SCDs (sequential compression devices) off Intervention: Prevent Infection Recent Flowsheet Documentation Taken 11/30/2023 1625 by Chanelle Stewart RN Infection Prevention: equipment surfaces disinfected hand hygiene promoted personal protective equipment utilized rest/sleep promoted single patient room provided Goal: Optimal Comfort and Wellbeing Outcome: Progressing Intervention: Monitor Pain and Promote Comfort Recent Flowsheet Documentation Taken 11/30/2023 1625 by Chanelle Stewart RN Pain Management Interventions: heat applied Taken 11/30/2023 1531 by Chanelle Stewart RN Pain Management Interventions: quiet environment facilitated rest Goal: Readiness for Transition of Care Outcome: Progressing Problem: Pain Acute Goal: Optimal Pain Control and Function Outcome: Progressing Intervention: Develop Pain Management Plan Recent Flowsheet Documentation Taken 11/30/2023 1625 by Chanelle Stewart RN Pain Management Interventions: heat applied Taken 11/30/2023 1531 by Chanelle Stewart RN Pain Management Interventions: quiet environment facilitated rest Intervention: Prevent or Manage Pain Recent Flowsheet Documentation Taken 11/30/2023 1625 by Chanelle Stewart RN Medication Review/Management: medications reviewed Intervention: Optimize Psychosocial Wellbeing Recent Flowsheet Documentation Taken 11/30/2023 1625 by Chanelle Stewart RN Supportive Measures: active listening utilized problem-solving facilitated decision-making supported verbalization of feelings encouraged * Utilization Review - Apolinar Mahmood MD - 11/30/2023 4:18 PM CDT Admission Status; Secondary Review Determination Under the authority of the Utilization Management Committee, the utilization review process indicated a secondary review on the above patient. The review outcome is based on review of the medical records, discussions with staff, and applying clinical experience noted on the date of the review. (x) Observation Status Appropriate - This patient does not meet hospital inpatient criteria and is placed in observation status. If this patient's primary payer is Medicare and was admitted as an inpatient, Condition Code 44 should be used and patient status changed to observation. RATIONALE FOR DETERMINATION Patient is a 63-year-old female admitted on 11/29/2023. Patient came to the ED with abdominal pain. White count was normal at 8.9. Patient has a history of Crohn's disease with exacerbations. She is on Remicade. CT scan showed wall thickening and mucosal hyper enhancement of the colon suggestive of mild infectious colitis. Creatinine is stable at 0.91 today and was slightly elevated at 1.02 on admission. The patient has not had a stool since the day prior to admission. Patient was placed on IV Solu-Medrol every day 40 mg. GI consulted and recommended C diff test in addition. Likely discharge tomorrow if improved. Based on [facility] criteria for inflam bowel ds, recommend OBS Dr Su notified via am com [facility] criteria for IP below: Admission is indicated for 1 or more of the following(1)(2)(3)(4)(5)(6):Supporting evidence, suggestions, and alternatives Hemodynamic instability Expand Acute severe ulcerative colitis, as indicated by Severe signs or symptoms (eg, bloody diarrhea) insufficiently responsive to outpatient therapy (eg,requires inpatient treatment such as IV immunosuppression) Abdominal pain that persists despite observation care Abdominal abscess Fistulizing Crohn disease Toxic megacolon Intestinal perforation Signs of intestinal obstruction (eg, vomiting with inability to tolerate oral intake, abdominal pain and distention, imaging consistent with bowel obstruction)(11) Peritoneal signs Severe electrolyte abnormalities requiring inpatient care Vomiting that is severe or persistent Dehydration that is severe or persistent Expand Anemia requiring inpatient admission, as indicated by Acute kidney injury (stage 2) Acute renal failure (stage 3 acute kidney injury) Bacteremia (if blood cultures performed) The severity of illness, intensity of service [...] 1 and Chapter 6, section 70.4. Sincerely, Chris Mahmood MD Physician Advisor Utilization Review/ Case Management [facility]. * Plan of Care - Marisa Isaacs RN - 11/30/2023 2:54 PM CDT Goal Outcome Evaluation: Overall Patient Progress: improvingOverall Patient Progress: improving Afebrile, VSS, lungs clear, pt passing gas, abdomen rounded, feeling bloated for pt. Pt rating abdominal pain to a 7, describing it as stabbing and feeling like her bowel is twisting. IV dilaudid 0.4mg given x1 for minimal relief ( pt rating pain at a 5) IV dilaudid 0.5 mg then given with atarax [id number]. Will continue to assess pain. IV toradol given for not much relief. IV fluids continue at 100 /hr. Pt sheron coffee, ate few bites of solids for breakfast and pain then increased. Pt not sure whatto order, no appetite for lunch. Family here to visit x1. Potassium redrawn today and was 4.6. Lab work- CRP in am. * Plan of Care - Jana Gates - 11/30/2023 12:06 AM CDT Goal Outcome Evaluation: Plan of Care Reviewed With: patient VS/Orientation: VSS, AxO x4 Activity: Pt stand-by assist for IV assistance to bathroom Significant events: Pt reported feeling nauseous after eating dinner and intermittent - gave PRN zofran x2 with relief. Gave Dilaudid x3 - pt reported relief from 7-8/10 to 5/10. No stool noted overnight, abdomen soft and tender, voiding well. L PIV infusing NS @100 mL/hr. Plan: Monitor VS, manage pain and discomfort, pending enteric and CMV IgM/IgG panel, Solumedrol q12hrs. Associated attestation - Guerda Sharma RN - 11/30/2023 7:34 AM CDT Accounting Office Manager agrees with the assessment and note written by WILLIAN Gates. * Pharmacy-Admission Medication History - Yao Toribio [facility] - 11/29/2023 8:07 PM CDT Pharmacist Admission Medication History Admission medication history is complete. The information provided in this note is only as accurateas the sources available at the time of the update. Information Source(s): Patient and CareEverywhere/SureScripts via in-person Pertinent Information: none Changes made to [employer] medication list: Added: prednisone Deleted: arthritic tylenol Changed: robaxin, vit c. Vit d Allergies reviewed with patient and updates made in EHR: yes Medication History Completed By: Yao Toribio [facility] 11/29/2023 8:07 PM [employer] Med List Medication Sig Last Dose acetaminophen (TYLENOL) 500 MG tablet Take 1-2 tablets (500-1,000 mg) by mouth every 6 hours as needed for mild pain 11/29/2023 at 0900 albuterol (PROAIR HFA/PROVENTIL HFA/VENTOLIN HFA) 108 (90 Base) MCG/ACT inhaler Inhale 2 puffs intothe lungs every 6 hours as needed for shortness of breath, wheezing or cough bisacodyl (DULCOLAX) [address] 1 suppository (10 mg) rectally 2 times daily as neededfor constipation cyanocobalamin (CYANOCOBALAMIN) 1000 MCG/ML injection Inject 1,000 mcg as directed every 30 days 10/23/2023 dicyclomine (BENTYL) 20 MG tablet Take 1 tablet (20 mg) by mouth 4 times daily (before meals and nightly) 11/29/2023 at x1 esomeprazole (NEXIUM) [address] capsule Take 40 mg by mouth 2 times daily (before meals) Take 30-60 minutes before eating. 11/29/2023 at x1 famotidine (PEPCID) 40 MG tablet Take 40 mg by mouth At Bedtime 11/28/2023 at hs inFLIXimab (REMICADE IV) Inject 10 mg/kg into the vein once every eight weeks 11/05/2023 medical cannabis (Patient's own supply) Take 1 [...] times daily as needed for muscle spasms (Patient taking differently: Take 1,000 mg by mouth 2 times daily) 11/29/2023 at x1 montelukast (SINGULAIR) 10 MG tablet Take 10 mg by mouth At Bedtime 11/28/2023 nortriptyline (PAMELOR) 25 MG capsule Take 25 mg by mouth At Bedtime 11/28/2023 ondansetron (ZOFRAN ODT) 4 MG ODT tab Take 1 tablet (4 mg) by mouth every 8 hours as needed for nausea predniSONE (DELTASONE) 5 MG tablet Take by mouth daily Starting 11/26/23 80 mg dailly for 1 week, then 70 mg dailly for 1 week 60 mg dailly for 1 week 50 mg dailly for 1 week 40 mg dailly for 1 week 30 mg dailly for 1 week 20 mg dailly for 1 week 10 mg dailly for 1 week 11/29/2023 at am 80 mg simethicone (MYLICON) 80 MG chewable tablet Take 1 tablet (80 mg) by mouth every 6 hours as needed for cramping traZODone (DESYREL) 100 MG tablet Take 200 mg by mouth At Bedtime 11/28/2023 vitamin C (ASCORBIC ACID) 1000 MG TABS Take 1,000 mg by mouth daily 11/29/2023 at am Vitamin D3 (CHOLECALCIFEROL) 25 mcg (1000 units) tablet Take 25 mcg by mouth daily 11/29/2023 at am * Provider Notification - Guerda Sharma RN - 11/29/2023 8:00 PM CDT Paged provider [phone] KW is wondering if she could have continuous fluids overnight, as she states that she feels dehydrated and that she feels better when they are running. Paged provider She also is concerned that a few of her important home meds are not ordered, including Singulair, Trazadone, and Nortriptyline; she also stated she is overdue for her Vitamin B12 shotand would like that ordered as well. Received order for home meds and IV fluids. documented in this encounter Plan of Treatment Not on file documented as of this encounter Procedures Procedure Name Priority Date/Time Associated Diagnosis Comments CRP INFLAMMATION Routine 12/09/2023 7:49 AM CDT BASIC METABOLIC PANEL Routine 12/09/2023 7:49 AM CDT POTASSIUM Routine 12/08/2023 6:57 AM CDT MAGNESIUM Routine 12/08/2023 6:57 AM CDT CRP INFLAMMATION Routine 12/08/2023 6:57 AM CDT MAGNESIUM Add-On 12/07/2023 6:50 AM CDT CRP INFLAMMATION Routine 12/07/2023 6:50 AM CDT BASIC METABOLIC PANEL Routine 12/07/2023 6:50 AM CDT CBC WITH PLATELETS Routine 12/07/2023 6: 50 AM CDT POTASSIUM Routine 12/06/2023 6:02 AM CDT MAGNESIUM Routine 12/06/2023 6:02 AM CDT CRP INFLAMMATION Routine 12/06/2023 6:02 AM CDT ROUTINE UA WITH MICROSCOPIC REFLEX TO CULTURE Routine 12/06/2023 1:40 AM CDT URINE CULTURE Routine 12/06/2023 1:40 AM CDT POTASSIUM Routine 12/05/2023 7:43 AM CDT MAGNESIUM Routine 12/05/2023 7:43 AM CDT CRP INFLAMMATION Routine 12/05/2023 7:43 AM CDT POTASSIUM Routine 12/04/2023 6:53 AM CDT MAGNESIUM Routine 12/04/2023 6:53 AM CDT CRP INFLAMMATION Routine 12/04/2023 6:53 AM CDT MR ENTEROGRAPHY W/O AND W CONTRAST Routine 12/03/2023 9:11 AM CDT CBC WITH PLATELETS AND DIFFERENTIAL Routine 12/03/2023 7:20 AM CDT CBC WITH PLATELETS & DIFFERENTIAL Routine 12/03/2023 7:20 AM CDT MAGNESIUM Routine 12/03/2023 7:20 AM CDT CRP INFLAMMATION Routine 12/03/2023 7:20 AM CDT BASIC METABOLIC PANEL Routine 12/03/2023 7:20 AM CDT POTASSIUM Routine 12/02/2023 7:45 AM CDT MAGNESIUM Routine 12/02/2023 7:45 AM CDT CRP INFLAMMATION Routine 12/02/2023 7:45 AM CDT MAGNESIUM Routine 12/01/2023 7:01 AM CDT CRP INFLAMMATION Routine 12/01/2023 7:01 AM CDT BASIC METABOLIC PANEL Routine 12/01/2023 7:01 AM CDT CBC WITH PLATELETS Routine 12/01/2023 7: 01 AM CDT POTASSIUM Timed 11/30/2023 1:48 PM CDT MAGNESIUM Routine 11/30/2023 7:06 AM CDT BASIC METABOLIC PANEL Routine 11/30/2023 7:06 AM CDT CBC WITH PLATELETS Routine 11/30/2023 7: 06 AM CDT CMV ANTIBODY IGM STAT 11/29/2023 7:32 PM CDT CMV ANTIBODY IGG STAT 11/29/2023 7:[address] ABDOMEN PELVIS W CONTRAST STAT 11/29/2023 4:13 PM CDT CBC WITH PLATELETS AND DIFFERENTIAL STAT 11/29/2023 3:28 PM CDT CBC WITH PLATELETS & DIFFERENTIAL STAT 11/29/2023 3:28 PM CDT ERYTHROCYTE SEDIMENTATION RATE AUTO STAT 11/29/2023 3:28 PM CDT CRP INFLAMMATION STAT 11/29/2023 3:28 PM CDT COMPREHENSIVE METABOLIC PANEL STAT 11/29/2023 3:28 PM CDT ROUTINE UA WITH MICROSCOPIC REFLEX TO CULTURE STAT 11/29/2023 3:26 PM CDT documented in this encounter Results * CRP inflammation (12/09/2023 7:49 AM CDT) CRP Inflammation 3.72 <5.00 mg/L 12/09/19 8:19 AM CDT LABORATORY Blood STRUCTURE OF RIGHT HAND / Unknown Venipuncture / Unknown 12/09/2023 7:49 AM CDT 12/09/2023 7:57 AM CDT Kai Su LAB - BLOOD ORDER NATALIIA LABORATORY [facility] Care Lab [address] Lab (1st floor, no room number) [place] [address] * (ABNORMAL) Basic metabolic panel (12/09/2023 7:49 AM CDT) [facility] Sodium 137 135 - 145 mmol/L 12/09/2023 [...] - 0.95 mg/dL 12/09/2023 8:19 AM CDT LABORATORY GFR Estimate 61 >60 mL/min/1. 73m2 12/09/2023 8:19 AM CDT LABORATORY Calcium 8.7(L) 8.8 - 10.2 mg/dL 12/09/2023 8:19 AM CDT LABORATORY Glucose 126(H) 70 - 99 mg/dL 12/09/2023 8:19 AM CDT LABORATORY Blood STRUCTURE OF RIGHT HAND / Unknown Venipuncture / Unknown 12/09/2023 7:49 AM CDT 12/09/2023 7:57 AM CDT Cathy Navarreteley DO LAB - BLOOD ORDERABL ES Performing Organization Address [facility]/ZIP Co de Phone Number [facility] Lab [address] Lab (1st floor, no room number) [place] [phone] [place] [address] * (ABNORMAL) CRP inflammation (12/08/2023 6:57 AM CDT) CRP Inflammation 6.79(H) <5.00 mg/L 12/08/2023 7:51 AM CDT RH LABORATORY Blood STRUCTURE OF RIGHT HAND / Unknown Venipuncture / Unknown 12/08/2023 6:57 AM CDT 12/08/2023 7:08 AM CDT Kai Su DO LAB - BLOOD ORDER NATALIIA Performing Organization Address [facility]/ZIP Co de Phone Number [facility] Lab [address] Lab (1st floor, no room number) [place] [phone], [facility] * (ABNORMAL) Magnesium (12/08/2023 6:57 AM CDT) Magnesium 2.4(H) 1.7 - 2.3 mg/dL 12/08/2023 7:28 AM CDT RH LABORATORY Blood STRUCTURE OF RIGHT HAND / Unknown Venipuncture / Unknown 12/08/2023 6:57 AM CDT 12/08/2023 7:08 AM CDT Eusebio Zhang MD LAB - BLOOD ORDERABL ES Performing Organization Address City/[facility]/ZIP Co de Phone Number [facility] Care Lab [address] Lab (1st floor, no room number) [place] [phone], [facility] * Potassium (12/08/2023 6:57 AM CDT) Potassium 4.7 3.4 - 5.3 mmol/L 12/08/2023 7:28 AM CDT RH LABORATORY Blood STRUCTURE OF RIGHT HAND / Unknown Venipuncture / Unknown 12/08/2023 6:57 AM CDT 12/08/2023 7:08 AM CDT Eusebio Zhang MD LAB - BLOOD ORDERABL ES LABORATORY [facility] Acute Care Lab [address] Lab (1st floor, no room number) [place] [address] * (ABNORMAL) Magnesium (12/07/2023 6:50 AM CDT) Magnesium 2.5(H) 1.7 - 2.3 mg/dL 12/07/2023 8:32 AM CDT LABORATORY Blood STRUCTURE OF LEFT UPPER LIMB / Unknown Venipuncture / Unknown 12/07/2023 6:50 AM CDT 12/07/2023 7:05 AM CDT Eusebio Zhang MD LAB - BLOOD ORDERABL ES Performing Organization Address City/[facility]/ZIP Co de Phone Number LABORATORY [facility] Lab [address] Lab (1st floor, no room number) [place] [address] * (ABNORMAL) CRP inflammation (12/07/2023 6:50 AM CDT) CRP Inflammation 20.60(H) <5.00 mg/L 12/07/2023 10:52 AM CDT UU LABORATORY Blood STRUCTURE OF LEFT UPPER LIMB / Unknown Venipuncture / Unknown 12/07/2023 6:50 AM CDT 12/07/2023 7:05 AM CDT Kai Su DO LAB - BLOOD ORDER NATALIIA [facility] LABORATORY [facility] [place] [facility] [address] [facility], [address] [place] [address], [facility] * (ABNORMAL) Basic metabolic panel (12/07/2023 6:50 AM CDT) Sodium 137 135 - 145 mmol/L 12/07/2023 7:25 AM CDT LABORATORY Comment:Reference intervals for this test were updated on 06/03/2023 to more accurately reflect our healthy population. There may be differences in the flagging of prior results with similar values performed with this method. Interpretation of those prior results can be made in the context of the updated reference intervals. Potassium 4.6 3.4 - 5.3 mmol/L 12/07/2023 7:25 AM CDT LABORATORY Chloride 100 98 - 107 mmol/L 12/07/2023 7:25 AM CDT LABORATORY Carbon Dioxide (CO2) 29 22 - 29 mmol/L 12/07/2023 7:25 AM CDT LABORATORY Anion Gap 8 7 - 15 mmol/L 12/07/2023 7:25 AM CDT LABORATORY Urea Nitrogen 20.2 8.0 - 23.0 mg/dL 12/07/2023 7:25 AM CDT LABORATORY Creatinine 1.07(H) 0.51 - 0.95 mg/dL 12/07/2023 7:25 AM CDT LABORATORY GFR Estimate 58(L) >60 mL/min/1. 73m2 12/07/2023 7:25 AM CDT LABORATORY Calcium 8.7(L) 8.8 - 10.2 mg/dL 12/07/2023 7:25 AM CDT LABORATORY Glucose 121(H) 70 - 99 mg/dL 12/07/2023 7:25 AM CDT LABORATORY Blood STRUCTURE OF LEFT UPPER LIMB / Unknown Venipuncture / Unknown 12/07/2023 6:50 AM CDT 12/07/2023 7:05 AM CDT Cathy Childers DO LAB - BLOOD ORDERABL ES LABORATORY [facility] Lab [address] [facility] Lab (1st floor, no room number) [place] [address], [facility] * (ABNORMAL) CBC with platelets (12/07/2023 6:50 AM CDT) WBC Count 13.4(H) 4.0 - 11.0 10e3/uL [...] Childers DO LAB - BLOOD ORDERABL ES [facility] Lab [address] Lab (1st floor, no room number) [place] [address] * (ABNORMAL) CRP inflammation (12/06/2023 6:02 AM CDT) CRP Inflammation 36.31(H) <5.00 mg/L 12/06/2023 7:04 AM CDT RH LABORATORY Blood STRUCTURE OF LEFT UPPER LIMB / Unknown Venipuncture / Unknown 12/06/2023 6:02 AM CDT 12/06/2023 6:13 AM CDT Kai Su DO LAB - BLOOD ORDER NATALIIA [facility] Lab [address] Lab (1st floor, no room number) [place] [phone] [place] [address] * (ABNORMAL) Magnesium (12/06/2023 6:02 AM CDT) Magnesium 2.5(H) 1.7 - 2.3 mg/dL 12/06/2023 7:04 AM CDT RH LABORATORY Blood STRUCTURE OF LEFT UPPER LIMB / Unknown Venipuncture / Unknown 12/06/2023 6:02 AM CDT 12/06/2023 6:13 AM CDT Eusebio Zhang MD LAB - BLOOD ORDERABL ES Performing Organization Address [facility]/ZIP Co de Phone Number [facility] [address] Lab (1st floor, no room number) [place] [phone] * Potassium (12/06/2023 6:02 AM CDT) Potassium 4.8 3.4 - 5.3 mmol/L 12/06/2023 7:04 AM CDT LABORATORY Blood STRUCTURE OF LEFT UPPER LIMB / Unknown Venipuncture / Unknown 12/06/2023 6:02 AM CDT 12/06/2023 6:13 AM CDT Eusebio Zhang MD LAB - BLOOD ORDERABL ES [facility] [address] Lab (1st floor, no room number) [place] [phone] [place] [address] * (ABNORMAL) Urine Culture (12/06/2023 1:40 AM [...] coli Cefazolin MAMIE <=4 ug/mL: Susceptible Comment:Cefazolin ND C breakpoints are for the treatment of [...] MICRO GENER AL ORDERABLES UU IDD LABORATORY [facility] Inf. Diseases Di[facility]. Lab [address] [facility], Room [address] [address] * (ABNORMAL) UA with Microscopic reflex to Culture (12/06/2023 1:40 AM CDT) Color Urine Straw Colorless, Straw, Light Yellow, Yellow 12/06/2023 2:45 AM CDT RH LABORATORY Appearance Urine Clear Clear 12/06/19 24 2:45 AM CDT RH LABORATORY Glucose Urine Negative Negative mg/dL 12/06/2023 2:45 AM CDT RH LABORATORY Bilirubin Urine Negative Negative 2:45 AM CDT RH LABORATORY Ketones Urine Negative Negative mg/dL 12/06/2023 2:45 AM CDT RH LABORATORY Specific [place] Urine 1.005 1.003 - 1.035 12/06/2023 2:45 AM CDT RH LABORATORY Blood Urine Negative Negative 12/06/2023 2:45 AM CDT RH LABORATORY pH Urine 6.0 5.0 - 7.0 12/06/2023 2:45 AM CDT RH LABORATORY Protein Albumin Urine Negative Negative mg/dL 12/06/2023 2:45 AM CDT RH LABORATORY Urobilinogen Urine Normal Normal, 2.0 mg/dL 12/06/2023 2:45 AM CDT RH LABORATORY Nitrite Urine Positive(A) Negative 12/06/2023 2:45 AM CDT RH LABORATORY Leukocyte Esterase Urine Negative Negative 12/06/2023 2:45 AM CDT RH LABORATORY Bacteria Urine Few(A) None Seen /HPF 12/06/2023 2:45 AM CDT RH LABORATORY RBC Urine <1 <=2 /HPF 12/06/2023 2:45 AM CDT RH LABORATORY WBC Urine 1 <=5 /HPF 12/06/2023 2:45 AM CDT RH LABORATORY Urine URINE SPECIMEN OBTAINED BY CLEAN CATCH PROCEDURE / Unknown Non-blood Collection / Unknown 12/06/2023 1:40 AM CDT 12/06/2023 1:50 AM CDT Narrative RH LABORATORY - 12/06/2023 2:45 AM CDT Urine Culture ordered based on laboratory criteria Valdez Gallardo MD LAB - URINE ORDER NATALIIA [facility] Lab [address] Lab (1st floor, no room number) [place] [address] * (ABNORMAL) CRP inflammation (12/05/2023 7:43 AM CDT) CRP Inflammation 19.09(H) <5.00 mg/L 12/05/2023 8:25 AM CDT RH LABORATORY Blood STRUCTURE OF RIGHT UPPER LIMB / Unknown Venipuncture / Unknown 12/05/2023 7:43 AM CDT 12/05/2023 7:56 AM CDT Kai Su DO LAB - BLOOD ORDER NATALIIA [facility] [address] Lab (1st floor, no room number) [address] * (ABNORMAL) Magnesium (12/05/2023 7:43 AM CDT) Magnesium 2.5(H) 1.7 - 2.3 mg/dL 12/05/2023 8:25 AM CDT RH LABORATORY Blood STRUCTURE OF RIGHT UPPER LIMB / Unknown Venipuncture / Unknown 12/05/2023 7:43 AM CDT 12/05/2023 7:56 AM CDT Eusebio Zhang MD LAB - BLOOD ORDERABL ES Performing Organization Address City/[facility]/ZIP Co de Phone Number [facility] Lab [address] Lab (1st floor, no room number) [address] * Potassium (12/05/2023 7:43 AM CDT) Potassium 4.9 3.4 - 5.3 mmol/L 12/05/2023 8:25 AM CDT RH LABORATORY Blood STRUCTURE OF RIGHT UPPER LIMB / Unknown Venipuncture / Unknown 12/05/2023 7:43 AM CDT 12/05/2023 7:56 AM CDT Eusebio Zhang MD LAB - BLOOD ORDERABL ES Performing Organization Address [facility]/ZIP Co de Phone Number [facility] Care Lab [address] Lab (1st floor, no room number) [address] * (ABNORMAL) CRP inflammation (12/04/2023 6:53 AM CDT) CRP Inflammation 21.12(H) <5.00 mg/L 12/04/2023 7:37 AM CDT RH LABORATORY Blood STRUCTURE OF LEFT HAND / Unknown Venipuncture / Unknown 12/04/2023 6:53 AM CDT 12/04/2023 7:09 AM CDT Kai Su DO LAB - BLOOD ORDER NATALIIA [facility] [address] Lab (1st floor, no room number) [place] [address] * Magnesium (12/04/2023 6:53 AM CDT) Magnesium 2.3 1.7 - 2.3 mg/dL 12/04/2023 7:37 AM CDT RH LABORATORY Blood STRUCTURE OF LEFT HAND / Unknown Venipuncture / Unknown 12/04/2023 6:53 AM CDT 12/04/2023 7:09 AM CDT Eusebio Zhang MD LAB - BLOOD ORDERABL ES Performing Organization Address City/[facility]/ZIP Co de Phone Number [facility] Care Lab [address] Lab (1st floor, no room number) [place] [phone] * Potassium (12/04/2023 6:53 AM CDT) Potassium 4.9 3.4 - 5.3 mmol/L 12/04/2023 7:37 AM CDT LABORATORY Blood STRUCTURE OF LEFT HAND / Unknown Venipuncture / Unknown 12/04/2023 6:53 AM CDT 12/04/2023 7:09 AM CDT Eusebio Zhang MD LAB - BLOOD ORDERABL ES Performing Organization Address [facility]/ZIP Co de Phone Number [facility] [address] Lab (1st floor, no room number) [place] [address] * MR Enterography w/o & wContrast [...] appearance, and close follow-up is recommended. JOAQUÍN CAAL MD SYSTEM ID: [id number] Narrative 12/03/2023 12:04 PM CDT MR ENTEROGRAPHY [...] the right lower quadrant. Procedure Note Joaquín Caal MD - 12/03/2023 MR ENTEROGRAPHY WITHOUT AND [...] appearance, and close follow-up is recommended. JOAQUÍN CAAL MD SYSTEM ID: [id number] Hortensia Dominguez PA-C [facility] [place] * (ABNORMAL) CBC with platelets and differential (12/03/2023 7:20 AM CDT) [facility] Signature WBC Count 13.6(H) 4.0 - 11.0 10e3/uL [...] NRBCs 0.0 10e3/uL 12/03/2023 7:44 AM CDT RH LABORATORY Blood STRUCTURE OF LEFT UPPER LIMB / Unknown Venipuncture / Unknown 12/03/2023 7:20 AM CDT 12/03/2023 7:41 AM CDT Valdez Gallardo MD LAB - BLOOD ORDER NATALIIA [facility] [address] Lab (1st floor, no room number) [place] [phone] [place] [address] * CRP inflammation (12/03/2023 7:20 AM CDT) CRP Inflammation <3.00 <5.00 mg/L 12/03/19 8:03 AM CDT RH LABORATORY Blood STRUCTURE OF RIGHT UPPER LIMB / Unknown Venipuncture / Unknown 12/03/2023 7:20 AM CDT 12/03/2023 7:41 AM CDT Kai Su DO LAB - BLOOD ORDER NATALIIA [facility] [address] Lab (1st floor, no room number) [place] [phone] [place] [address] * (ABNORMAL) Basic metabolic panel (12/03/2023 7:20 AM CDT) Pathologist [facility] Sodium 138 135 - 145 mmol/L 12/03/2023 8:08 AM CDT RH LABORATORY Comment:Reference intervals for this test were updated on 06/03/2023 to more accurately reflect our healthy population. There may be differences in the flagging of prior results with similar values performed with this method. Interpretation of those prior results can be made in the context of the updated reference intervals. Potassium 4.8 3.4 - 5.3 mmol/L 12/03/2023 8:08 AM CDT LABORATORY Chloride 105 98 - 107 mmol/L 12/03/2023 8:08 AM CDT LABORATORY Carbon Dioxide (CO2) 22 22 - 29 mmol/L 12/03/2023 8:08 AM CDT LABORATORY Anion Gap 11 7 - 15 mmol/L 12/03/2023 8:08 AM CDT LABORATORY Urea Nitrogen 25.2(H) 8.0 - 23.0 mg/dL 12/03/2023 8:08 AM CDT LABORATORY Creatinine 0.98(H) 0.51 - 0.95 mg/dL 12/03/2023 8:08 AM CDT LABORATORY GFR Estimate 64 >60 mL/min/1. 73m2 12/03/2023 8:08 AM CDT LABORATORY Calcium 8.5(L) 8.8 - 10.2 mg/dL 12/03/2023 8:08 AM CDT LABORATORY Glucose 118(H) 70 - 99 mg/dL 12/03/2023 8:08 AM CDT LABORATORY Blood STRUCTURE OF RIGHT UPPER LIMB / Unknown Venipuncture / Unknown 12/03/2023 7:20 AM CDT 12/03/2023 7:41 AM CDT Al Berny Gallardo MD LAB - BLOOD ORDER NATALIIA LABORATORY [facility] Lab [address] [facility] Lab (1st floor, no room number) [place] [address], [facility] * (ABNORMAL) Magnesium (12/03/2023 7:20 AM CDT) Magnesium 2.5(H) 1.7 - 2.3 mg/dL 12/03/2023 8:03 AM CDT LABORATORY Blood STRUCTURE OF RIGHT UPPER LIMB / Unknown Venipuncture / Unknown 12/03/2023 7:20 AM CDT 12/03/2023 7:41 AM CDT Valdez Gallardo MD LAB - BLOOD ORDER NATALIIA [facility] [address] Lab (1st floor, no room number) [address] * CRP inflammation (12/02/2023 7:45 AM CDT) CRP Inflammation <3.00 <5.00 mg/L 12/02/19 8:19 AM CDT RH LABORATORY Blood STRUCTURE OF LEFT UPPER LIMB / Unknown Venipuncture / Unknown 12/02/2023 7:45 AM CDT 12/02/2023 7:55 AM CDT Kai Su DO LAB - BLOOD ORDER NATALIIA Performing Organization Address City/[facility]/ZIP Co de Phone Number [facility] Care Lab [address] Lab (1st floor, no room number) [address] * Magnesium (12/02/2023 7:45 AM CDT) Magnesium 2.3 1.7 - 2.3 mg/dL 12/02/2023 8:19 AM CDT RH LABORATORY Blood STRUCTURE OF LEFT UPPER LIMB / Unknown Venipuncture / Unknown 12/02/2023 7:45 AM CDT 12/02/2023 7:55 AM CDT Valdez Gallardo MD LAB - BLOOD ORDER NATALIIA [facility] [address] Lab (1st floor, no room number) [address] * Potassium (12/02/2023 7:45 AM CDT) Potassium 4.2 3.4 - 5.3 mmol/L 12/02/2023 8:19 AM CDT RH LABORATORY Blood STRUCTURE OF LEFT UPPER LIMB / Unknown Venipuncture / Unknown 12/02/2023 7:45 AM CDT 12/02/2023 7:55 AM CDT Valdez Gallardo MD LAB - BLOOD ORDER NATALIIA [facility] [address] Lab (1st floor, no room number) [place] [phone] [place] [address] * CRP inflammation (12/01/2023 7:01 AM CDT) CRP Inflammation <3.00 <5.00 mg/L 12/01/19 7:35 AM CDT RH LABORATORY Blood STRUCTURE OF RIGHT UPPER LIMB / Unknown Venipuncture / Unknown 12/01/2023 7:01 AM CDT 12/01/2023 7:07 AM CDT Kai Su DO LAB - BLOOD ORDER NATALIIA Performing Organization Address City/[facility]/ZIP Co de Phone Number [facility] [address] Lab (1st floor, no room number) [place] [phone] [place] [address] * Magnesium (12/01/2023 7:01 AM CDT) Magnesium 2.2 1.7 - 2.3 mg/dL 12/01/2023 7:35 AM CDT LABORATORY Blood STRUCTURE OF RIGHT UPPER LIMB / Unknown Venipuncture / Unknown 12/01/2023 7:01 AM CDT 12/01/2023 7:07 AM CDT Eusebio Zhang MD LAB - BLOOD ORDERABL ES [facility] [address] Lab (1st floor, no room number) [place] [phone] [place] [address] * (ABNORMAL) Basic metabolic panel (12/01/2023 7:01 AM CDT) Sodium 142 135 - 145 mmol/L 12/01/2023 7:35 AM CDT RH LABORATORY Comment:Reference intervals for this test were updated on 06/03/2023 to more accurately reflect our healthy population. There may be differences in the flagging of prior results with similar values performed with this method. Interpretation of those prior results can be made in the context of the updated reference intervals. Potassium 4.3 3.4 - 5.3 mmol/L 12/01/2023 7:35 AM CDT LABORATORY Chloride 107 98 - 107 mmol/L 12/01/2023 7:35 AM CDT RH LABORATORY Carbon Dioxide (CO2) 26 22 - 29 mmol/L 12/01/2023 7:35 AM CDT RH LABORATORY Anion Gap 9 7 - 15 mmol/L 12/01/2023 7:35 AM CDT [facility] LABORATORY Urea Nitrogen 13.2 8.0 - 23.0 mg/dL 12/01/2023 7:35 AM CDT [facility] LAB[facility]ATORY Creatinine 0.95 0.51 - 0.95 mg/dL 12/01/2023 7:35 AM CDT RH LABORATORY GFR Estimate 67 >60 mL/min/1. 73m2 12/01/2023 7:35 AM CDT [facility] LABORAT[facility] Calcium 8.6(L) 8.8 - 10.2 mg/dL 12/01/2023 7:35 AM CDT LABORATORY Glucose 100(H) 70 - 99 mg/dL 12/01/2023 7:35 AM [facility]T [facility] Blood STRUCTURE OF RIGHT UPPER LIMB / Unknown Venipuncture / Unknown 12/01/2023 7:01 AM CDT 12/01/2023 7:07 AM CDT Kai Su DO LAB - BLOOD ORDER [facility] [address] Lab (1st floor, no room number) [place] [address], [facility] * CBC with platelets (12/01/2023 7:01 AM CDT) WBC Count 7.8 4.0 - 11.0 10e3/uL 12/01/2023 7:11 AM CDT [facility] RBC Count 4.10 3.80 - 5.20 10e6/uL 12/01/2023 7:11 AM CDT [facility] Hemoglobin 11.9 11.7 - 15.7 g/dL 12/01/2023 7:11 AM CDT [facility] Hematocrit 36.3 35.0 - 47.0 % 12/01/2023 7:11 AM CDT [facility] MCV 89 78 - 100 fL 12/01/2023 7:11 AM CDT [facility] MCH 29.0 26.5 - 33.0 pg 12/01/2023 7:11 AM CDT [facility] MCHC 32.8 31.5 - 36.5 g/dL 12/01/2023 7:11 AM CDT [facility] RDW 12.1 10.0 - 15.0 % 12/01/2023 7:11 AM CDT [facility] Platelet Count 229 150 - 450 10e3/uL 12/01/2023 7:11 AM CDT [facility] Blood STRUCTURE OF RIGHT UPPER LIMB / Unknown Venipuncture / Unknown 12/01/2023 7:01 AM CDT 12/01/2023 7:07 AM CDT Kai Su DO LAB - BLOOD ORDER NATALIIA [facility] Care Lab [address] Lab (1st floor, no room number) [place] [id number] [place] [address] * Potassium (11/30/2023 1:48 PM CDT) [facility] Potassium 4.6 3.4 - 5.3 mmol/L 11/30/2023 2:09 PM CDT [facility] Blood STRUCTURE OF RIGHT UPPER LIMB / Unknown Venipuncture / Unknown 11/30/2023 1:48 PM CDT 11/30/2023 1:51 PM CDT Kai Su DO LAB - BLOOD ORDER NATALIIA [facility] [address] Lab (1st floor, no room number) [place] [address] * Magnesium (11/30/2023 7:06 AM CDT) Magnesium 2.3 1.7 - 2.3 mg/dL 11/30/2023 7:34 AM CDT [facility] Blood STRUCTURE OF RIGHT UPPER LIMB / Unknown Venipuncture / Unknown 11/30/2023 7:06 AM CDT 11/30/2023 7:12 AM CDT Eusebio Zhang MD LAB - BLOOD ORDERABL ES LABORATORY [facility] Acute Care Lab [address] Lab (1st floor, no room number) [place] [address], [facility] * CBC with platelets (11/30/2023 7:06 AM CDT) Pathologist [facility] WBC Count 10.5 4.0 - 11.0 10e3/uL 11/30/2023 7:14 AM CDT [facility] RBC Count 4.32 3.80 - 5.20 10e6/uL 11/30/2023 7:14 AM CDT [facility] Hemoglobin 12.7 11.7 - 15.7 g/dL 11/30/2023 7:14 AM CDT [facility] Hematocrit 38.8 35.0 - 47.0 % 11/30/2023 7:14 AM CDT [facility] MCV 90 78 - 100 fL 11/30/2023 7:14 AM CDT [facility] MCH 29.4 26.5 - 33.0 pg 11/30/2023 7:14 AM CDT [facility] MCHC 32.7 31.5 - 36.5 g/dL 11/30/2023 7:14 AM CDT [facility] RDW 12.1 10.0 - 15.0 % 11/30/2023 7:14 AM CDT [facility] Platelet Count 251 150 - 450 10e3/uL 11/30/2023 7:14 AM CDT [facility] Blood STRUCTURE OF RIGHT UPPER LIMB / Unknown Venipuncture / Unknown 11/30/2023 7:06 AM CDT 11/30/2023 7:12 AM CDT Eusebio Zhang MD LAB - BLOOD ORDERABL ES LABORATORY [facility] Lab [address] Lab (1st floor, no room number) [place] [address], [facility] * (ABNORMAL) Basic metabolic panel (11/30/2023 7:06 AM CDT) Sodium 142 135 - 145 mmol/L 11/30/2023 7:34 AM CDT LABORATORY Comment:Reference intervals for this test were updated on 06/03/2023 to more accurately reflect our healthy population. There may be differences in the flagging of prior results with similar values performed with this method. Interpretation of those prior results can be made in the context of the updated reference intervals. Potassium 5.4(H) 3.4 - 5.3 mmol/L 11/30/2023 7:34 AM CDT LABORATORY Chloride 107 98 - 107 mmol/L 11/30/2023 7:34 AM CDT LABORATORY Carbon Dioxide (CO2) 29 22 - 29 mmol/L 11/30/2023 7:34 AM CDT LABORATORY Anion Gap 6(L) 7 - 15 mmol/L 11/30/2023 7:34 AM CDT LABORATORY Urea Nitrogen 12.3 8.0 - 23.0 mg/dL 11/30/2023 7:34 AM CDT LABORATORY Creatinine 0.91 0.51 - 0.95 mg/dL 11/30/2023 7:34 AM CDT LABORATORY GFR Estimate 70 >60 mL/min/1. 73m2 11/30/2023 7:34 AM CDT LABORATORY Calcium 9.0 8.8 - 10.2 mg/dL 11/30/2023 7:34 AM CDT LABORATORY Glucose 100(H) 70 - 99 mg/dL 11/30/2023 7:34 AM CDT LABORATORY Blood STRUCTURE OF RIGHT UPPER LIMB / Unknown Venipuncture / Unknown 11/30/2023 7:06 AM CDT 11/30/2023 7:12 AM CDT Eusebio Zhang MD LAB - BLOOD ORDERABL ES LABORATORY [facility] Lab [address] Lab (1st floor, no room number) [place] [address] * (ABNORMAL) CMV Antibody IgG (11/29/2023 7:32 [...] Zhang MD LAB - BLOOD ORDERABL ES [facility] CORE/PROT/ENDO Specialty Core/Prot/Endo [address] [facility] [address] Building, Room [address] * CMV antibody IgM (11/29/2023 7:32 PM [...] Zhang MD LAB - BLOOD ORDERABL ES [facility] SPECIALTY CORE/PROT/ENDO [facility] Specialty Core/Prot/Endo [address] [facility] [address] Building, Room [address] [place] [address] * CT Abdomen Pelvis w Contrast (11/29/2023 [...] EXAM: CT ABDOMEN PELVIS W CONTRAST LOCATION: [facility] DATE: 11/29/2023 INDICATION: Severe abd pain and [...] EXAM: CT ABDOMEN PELVIS W CONTRAST LOCATION: [facility] DATE: 11/29/2023 INDICATION: Severe abd pain and [...] Will MD IMG CT ORDERABLE S * CBC with platelets and differential (11/29/2023 3:28 PM CDT) WBC Count 8.9 4.0 - 11.0 10e3/uL 11/29/2023 3:45 PM CDT [facility] RBC Count 4.61 3.80 - 5.20 10e6/uL 11/29/2023 3:45 PM CDT [facility] Hemoglobin 13.6 11.7 - 15.7 g/dL 11/29/2023 3:45 PM CDT [facility] Hematocrit 41.3 35.0 - 47.0 % 11/29/2023 3:45 PM CDT [facility] MCV 90 78 - 100 fL 11/29/2023 3:45 PM CDT [facility] MCH 29.5 26.5 - 33.0 pg 11/29/2023 3:45 PM CDT [facility] MCHC 32.9 31.5 - 36.5 g/dL 11/29/2023 3:45 PM CDT [facility] RDW 12.5 10.0 - 15.0 % 11/29/2023 3:45 PM CDT [facility] Platelet Count 276 150 - 450 10e3/uL 11/29/2023 3:45 PM CDT [facility] % Neutrophils 84 % 11/29/2023 3:45 PM CDT [facility] % Lymphocytes 11 % 11/29/2023 3:45 PM CDT [facility] % Monocytes 4 % 11/29/2023 3:45 PM CDT [facility] % Eosinophils 0 % 11/29/2023 3:45 PM CDT [facility] % Basophils 0 % 11/29/2023 3:45 PM CDT [facility] % Immature Granulocytes 1 % 11/29/2023 3:45 PM CDT [facility] NRBCs per 100 WBC 0 <1 /100 024 3:45 PM CDT [facility] Absolute Neutrophils 7.5 1.6 - 8.3 10e3/uL 11/29/2023 3:45 PM CDT [facility] Absolute Lymphocytes 1.0 0.8 - 5.3 10e3/uL 11/29/2023 3:45 PM CDT [facility] Absolute Monocytes 0.3 0.0 - 1.3 10e3/uL 11/29/2023 3:45 PM CDT [facility] Absolute Eosinophils 0.0 0.0 - 0.7 10e3/uL 11/29/2023 3:45 PM CDT [facility] Absolute Basophils 0.0 0.0 - 0.2 10e3/uL 11/29/2023 3:45 PM CDT [facility] Absolute Immature Granulocytes 0.1 <=0.4 10e3/uL 11/29/2023 3:45 PM CDT [facility] Absolute NRBCs 0.0 10e3/uL 11/29/2023 3:45 PM CDT [facility] Blood BLOOD SPECIMEN / Unknown Venipuncture / Unknown 11/29/2023 3:28 PM CDT 11/29/2023 3:42 PM CDT Jesus Will MD LAB - BLOOD ORDShawn SINGH [facility] Care Lab [address] [facility] Lab (1st floor, no room number) [place] [address] * CRP inflammation (11/29/2023 3:28 PM CDT) CRP Inflammation <3.00 <5.00 mg/L 11/29/19 4:03 PM CDT [facility] Blood BLOOD SPECIMEN / Unknown Venipuncture / Unknown 11/29/2023 3:28 PM CDT 11/29/2023 3:42 PM CDT Jesus Will MD LAB - BLOOD ORDShawn SINGH [facility] Lab [address] Lab (1st floor, no room number) [place] [address] * Erythrocyte sedimentation rate auto (11/29/2023 3:28 PM CDT) Pathologist [facility] Erythrocyte Sedimentation Rate 3 0 - 30 mm/hr 11/29/2023 3:57 PM CDT [facility] Blood BLOOD SPECIMEN / Unknown Venipuncture / Unknown 11/29/2023 3:28 PM CDT 11/29/2023 3:42 PM CDT Jesus Will MD LAB - BLOOD ORDE SAMANTHA LABORATORY [facility] Care Lab [address] Lab (1st floor, no room number) [place] [phone] * (ABNORMAL) Comprehensive metabolic panel (11/29/2023 3:28 PM CDT) [facility] Sodium 138 135 - 145 mmol/L 11/29/2023 [...] Will MD LAB - BLOOD RUSS SINGH [facility] Organization Address City/State/ZIP Co de Phone Number [facility] [address] Lab (1st floor, no room number) [place] [address], [facility] * (ABNORMAL) UA with Microscopic reflex to Culture (11/29/2023 3:26 PM CDT) Color Urine Straw Colorless, Straw, Light Yellow, Yellow 11/29/2023 3:46 PM CDT [facility] Appearance Urine Clear Clear 11/29/19 3:46 PM CDT [facility] Glucose Urine Negative Negative mg/dL 11/29/2023 3:46 PM CDT [facility] Bilirubin Urine Negative Negative 3:46 PM CDT [facility] Ketones Urine Negative Negative mg/dL 11/29/2023 3:46 PM CDT [facility] Specific [place] Urine 1.006 1.003 - 1.035 11/29/2023 3:46 PM CDT [facility] Blood Urine Negative Negative 11/29/2023 3:46 PM CDT [facility] pH Urine 5.5 5.0 - 7.0 11/29/2023 3:46 PM CDT [facility] Protein Albumin Urine Negative Negative mg/dL 11/29/2023 3:46 PM CDT [facility] Urobilinogen Urine Normal Normal, 2.0 mg/dL 11/29/2023 3:46 PM CDT [facility] Nitrite Urine Negative Negative 11/29/2023 3:46 PM CDT [facility] Leukocyte Esterase Urine Negative Negative 11/29/2023 3:46 PM CDT [facility] Bacteria Urine Few(A) None Seen /HPF 11/29/2023 3:46 PM CDT [facility] RBC Urine <1 <=2 /HPF 11/29/2023 3:46 PM CDT [facility] WBC Urine <1 <=5 /HPF 11/29/2023 3:46 PM CDT [facility] Squamous Epithelials Urine <1 <=1 /HPF 11/29/2023 3:46 PM CDT [facility] Urine MID-STREAM URINE SPECIMEN / Unknown Non-blood Collection / Unknown 11/29/2023 3:26 PM CDT 11/29/2023 3:30 PM CDT Narrative [facility] - 11/29/2023 3:46 PM CDT Urine Culture not indicated Jesus Will MD [facility] Organization Address City/State/ZIP Co de Phone Number [facility] [address] [facility] Lab (1st floor, no room number) [place] [address], [facility] documented in this encounter Visit Diagnoses Diagnosis Generalized abdominal pain- Primary Abdominal pain, generalized Exacerbation of Crohn's disease with complication (H) Generalized abdominal pain Abdominal pain, generalized IBD (inflammatory bowel disease) Other and unspecified noninfectious gastroenteritis and colitis Nausea Nausea alone Crohn's disease with complication, unspecified gastrointestinal tract location (H) Exacerbation of Crohn's disease with complication (H) documented in this encounter Admitting Diagnoses Diagnosis Generalized abdominal pain Abdominal pain, generalized Crohn disease (H) Regional enteritis of unspecified site documented in this encounter Administered Medications Inactive Administered Medications - up to 3 most recent administrations Medication Order MAR Action Action Date Dose Rate Site acetaminophen (TYLENOL) Suppository 650 mg 650 mg, Rectal, EVERY 4 HOURS PRN, mild pain, other, and adjunct with moderate or severe pain or per patient request, Starting on 11/29/23 at 1831, Alternate with ibuprofen if ordered. Maximum acetaminophen dose from all sources = 75 mg/kg/day not to exceed 4 grams/day. acetaminophen (TYLENOL) tablet 650 mg 650 mg, Oral, EVERY 4 HOURS PRN, mild pain, other, and adjunct with moderate or severe pain or per patient request, Starting on 11/29/23 at 1831, Alternate with ibuprofen if ordered. Maximum acetaminophen dose from all sources = 75 mg/kg/day not to exceed 4 grams/day. $Given 12/09/2023 11:43 AM CDT 650 mg $Given 12/08/2023 8:35 PM CDT 650 mg $Given 12/08/2023 4:03 PM CDT 650 mg bisacodyl (DULCOLAX) suppository 10 mg 10 mg, Rectal, ONCE, On 12/03/23 at 1200, For 1 dose, Hold for loose stools. $Given 12/03/2023 12:33 PM CDT 10 mg bisacodyl (DULCOLAX) suppository 10 mg 10 mg, Rectal, DAILY PRN, constipation, Starting on Betty 12/04/23 at 1302, 1ST dose now Hold for loose stools. $Given 12/04/2023 1:58 PM CDT 10 mg calcium carbonate (TUMS) chewable tablet 1,000 mg 1,000 mg, Oral, 4 TIMES DAILY PRN, heartburn, Starting on 11/29/23 at 1831 $Given 12/08/2023 11:59 AM CDT 1,000 mg $Given 12/07/2023 2:56 PM CDT 1,000 mg ciprofloxacin (CIPRO) tablet 500 mg Routine, 500 mg, Oral, EVERY 12 HOURS SCHEDULED, First dose on Fri12/08/23 at 2000, For 5 days, Administer at least 2 hours before [...] after administration, Indications: Urinary Tract Infection $Given 12/09/2023 8:18 AM CDT 500 mg $Given 12/08/2023 8:26 PM CDT [address] Scan Flush Intravenous, 100 mL, ONCE, On 11/29/23 at 1605, For 1 dose, This entry is for use by Radiology to intermittently used as a flush in patients receiving a CT scan. $Given 11/29/2023 4:05 PM CDT 58 mLs dicyclomine (BENTYL) tablet 20 mg 20 mg, Oral, 4 TIMES DAILY BEFORE MEALS & NIGHTLY, First dose on 11/29/23 at 2230, Recommended to take before meals. $Given 12/03/2023 7:56 AM CDT 20 mg $Given 12/02/2023 10:15 PM CDT 20 mg $Given 12/02/2023 4:23 PM CDT 20 mg famotidine (PEPCID) injection 20 mg 20 mg, Intravenous, Administer over 2 Minutes, ONCE, On Betty 12/04/23 at 1330, For 1 dose, For ordered IV doses 1-20 mg, give IV Push diluted with 5-10 mL NS over a minimum of 2 minutes. $Given 12/04/2023 1:59 PM CDT 20 mg famotidine (PEPCID) tablet 20 mg 20 mg, Oral, AT BEDTIME, First dose (after last modification) on 12/01/23 at 2200, Dose adjusted per renal dosing policy. Estimated CrCl = 30-60 mL/min. $Given 12/08/2023 11:29 PM CDT 20 mg $Given 12/07/2023 10:15 PM CDT 20 mg $Given 12/06/2023 11:25 PM CDT 20 mg famotidine (PEPCID) tablet 40 mg 40 mg, Oral, AT BEDTIME, First dose on 11/29/23 at 2200 $Given 11/30/2023 11:19 PM CDT 40 mg $Given 11/29/2023 10:57 PM CDT 40 mg gadobutrol (GADAVIST) injection 7 mL 7 mL, Intravenous, ONCE, On Fri12/03/23 at 0800, For 1 dose $Given 12/03/2023 8:26 AM CDT 7 mLs glucagon injection 1 mg 1 mg, Intravenous, ONCE, On Fri12/03/23 at 0800, For 1 dose, The tech will be required to give the injection of 0.5 mg of glucagon slowly at the beginning of imaging and 0.5 mg of glucagon just before contrast injection. $Given 12/03/2023 8:27 AM CDT 1 mg HYDROmorphone (DILAUDID) injection 0.2-0.4 mg 0.2-0.4 mg, Intravenous, EVERY 3 HOURS PRN, severe pain, Starting on 11/29/23 at 1906 $Given 11/30/2023 10:07 AM CDT 0.4 mg $Given 11/30/2023 6:53 AM CDT 0.4 mg $Given 11/30/2023 2:41 AM CDT 0.4 mg HYDROmorphone (DILAUDID) tablet 2 mg 2 mg, Oral, EVERY 3 HOURS PRN, severe pain, Starting on 11/30/23 at 1208 $Given 12/07/2023 3:48 AM CDT 2 mg $Given 12/06/2023 1:48 PM CDT 2 mg $Given 12/05/2023 9:59 PM CDT 2 mg HYDROmorphone (DILAUDID) tablet 2-4 mg 2-4 mg, Oral, EVERY 3 HOURS PRN, severe pain, Starting on 12/07/23 at 0924 $Given 12/09/2023 4:05 PM CDT 4 mg $Given 12/09/2023 11:43 AM CDT 2 mg $Given 12/09/2023 8:18 AM CDT 4 mg HYDROmorphone (PF) (DILAUDID) injection 0.5 mg 0.5 mg, Intravenous, EVERY 3 HOURS PRN, severe pain, Starting on 11/30/23 at 1259 $Given 12/07/2023 8:48 AM CDT 0.5 mg $Given 12/06/2023 11:26 PM CDT 0.5 mg $Given 12/06/2023 8:29 PM CDT 0.5 mg hydrOXYzine HCl (ATARAX) tablet 25 mg 25 mg, Oral, EVERY 6 HOURS PRN, other, adjuvant pain, Starting on 11/30/23 at 1209, Start with 25 mg for the initial dose. If the 25 mg dose is ineffective, increase to the 50 mg dose at the next administration time and maintain further doses at 50 mg. If the 50 mg dose is ineffective, contact the provider. $Given 12/08/2023 11:52 AM CDT 25 mg $Given 12/08/2023 12:35 AM CDT 25 mg $Given 12/07/2023 6:22 PM CDT 25 mg hydrOXYzine HCl (ATARAX) tablet 50 mg 50 mg, Oral, EVERY 6 HOURS PRN, other, adjuvant pain, Starting on 11/30/23 at 1209, Start with 25 mg for the initial dose. If the 25 mg dose is ineffective, increase to the 50 mg dose at the next administration time and maintain further doses at 50 mg. If the 50 mg dose is ineffective, contact the provider. $Given 12/08/2023 11:29 PM CDT 50 mg $Given 12/08/2023 6:00 AM CDT 50 mg $Given 12/07/2023 3:48 AM CDT 50 mg inFLIXimab (REMICADE) 700 mg in sodium chloride 0.9 % 275 mL infusion 700 mg, Intravenous, ONCE, On Fri12/05/23 at 1500, For 1 dose, Administer over 120 Minutes, [...] breath, dyspnea, wheezing, sneezing, or hives. Dose changed from 710 (10 mg/kg) mg to 700 mg per rounding policy. Change within 10%. Louise Alcala [facility] 12/05/23 Administer through an in-line, sterile, non-pyrogenic, low protein-binding 0.2-0.22 micron filter. Restarted 12/05/2023 10:10 PM CDT 137.5 mL/hr $New Bag 12/05/2023 3:43 PM CDT 700 mg 137.5 mL/hr iopamidol (ISOVUE-370) solution 500 mL 500 mL, Intravenous, ONCE, On 11/29/23 at 1605, For 1 dose $Given 11/29/2023 4:05 PM CDT 78 mLs ketorolac (TORADOL) injection 30 mg 30 mg, Intravenous, EVERY 6 HOURS PRN, inflammatory pain, Starting on 11/30/23 at 1208, For 5 days, Can cause pain on injection. If ordered intravenously (IV) : administer through a running maintenance fluid over 1 minute followed by a flush. If patient complains of pain on injection, may dilute 15-30 mg in 5 mL and push over 1 to 2 minutes. $Given 12/05/2023 9:42 AM CDT 30 mg $Given 12/05/2023 3:30 AM CDT 30 mg $Given 12/04/2023 8:54 PM CDT 30 mg lactated ringers BOLUS 1,000 mL Intravenous, 1,000 mL, ONCE, at 1,000 mL/hr, Administer over 1 Hours, On 11/29/23 at 1430, For 1 dose $New Bag 11/29/2023 3:33 PM CDT 1,000 mLs 1000 mL/hr lactated ringers BOLUS 500 mL Intravenous, 500 mL, ONCE, at 250 mL/hr, Administer over 2 Hours, On 12/07/23 at 1030, For 1 dose $New Bag 12/07/2023 10:29 AM CDT 500 mLs 250 mL/hr loratadine (CLARITIN) tablet 10 mg 10 mg, Oral, ONCE, On Fri12/05/23 at 1500, For 1 dose, Administer prior to remicaide infusion $Given 12/05/2023 3:22 PM CDT 10 mg LORazepam (ATIVAN) injection 0.5 mg 0.5 mg, Intravenous, ONCE, On Fri12/02/23 at 1400, For 1 dose, Administer prior to MRI. IV Route: Dilute with equal volume NS prior to use. This drug may cause significant respiratory depression. Monitor respiratory status and vital signs carefully for 1 hour after each dose. $Given 12/03/2023 8:14 AM CDT 0.5 mg methylPREDNISolone sodium succinate (SOLU-MEDROL) injection 20 mg 20 mg, Intravenous, EVERY 12 HOURS, First dose on Fri11/29/23 at 1930, Doses greater than or equal to 1000 mg administer over 60 minutes Doses greater than or equal to 500 mg administer over 30-60 minutes Doses greater than or equal to 250 mg administer over 15-30 minutes Doses less than or equal to 125 mg IVP over 3-5 minutes $Given 12/02/2023 8:22 AM CDT 20 mg $Given 12/01/2023 7:27 PM CDT 20 mg $Given 12/01/2023 8:04 AM CDT 20 mg methylPREDNISolone sodium succinate (SOLU-MEDROL) injection 20 mg 20 mg, Intravenous, EVERY 8 HOURS, First dose (after last modification) on Fri12/02/23 at 1630, Doses greater than or equal to 1000 mg administer over 60 minutes Doses greater than or equal to 500 mg administer over 30-60 minutes Doses greater than or equal to 250 mg administer over 15-30 minutes Doses less than or equal to 125 mg IVP over 3-5 minutes $Given 12/08/2023 8:15 AM CDT 20 m g $Given 12/08/2023 12:35 AM CDT 20 mg $Given 12/07/2023 4:26 PM CDT 20 mg montelukast (SINGULAIR) tablet 10 mg 10 mg, Oral, AT BEDTIME, First dose on Fri11/29/23 at 2230 $Given 12/08/2023 11:29 PM CDT 10 mg $Given 12/07/2023 10:10 PM CDT 10 mg $Given 12/06/2023 11:25 PM CDT 10 mg morphine (PF) injection 4 mg 4 mg, Intravenous, EVERY 15 MIN PRN, moderate pain, severe pain, Starting on 11/29/23 at 1439, For 3 doses, Notify the provider to assess for uncontrolled pain or analgesic side effects. Hold while on IV ADMITTANCE ATTENDANT or with regular IV opioid dosing. $Given 11/29/2023 5:50 PM CDT 4 mg $Given 11/29/2023 3:33 PM CDT 4 mg naloxone (NARCAN) injection 0.2 mg 0.2 mg, Intravenous, EVERY 2 MIN PRN, opioid reversal, Starting on 11/29/23 at 1908, Administer intravenous route when available and notify [...] 2 MIN PRN, opioid reversal, Starting on 11/29/23 at 1908, Administer intramuscular if an intravenous route is [...] 2 MIN PRN, opioid reversal, Starting on 11/29/23 at 1908, Administer intravenous route when available and notify [...] 2 MIN PRN, opioid reversal, Starting on 11/29/23 at 1908, Administer intramuscular if an intravenous route is [...] mg, Oral, AT BEDTIME, First dose on 11/29/23 at 2230 $Given 12/08/2023 11:29 PM CDT 25 mg $Given 12/07/2023 10:09 PM CDT 25 mg $Given 12/06/2023 11:24 PM CDT 25 mg ondansetron (ZOFRAN ODT) ODT tab 4 mg 4 mg, Oral, EVERY 6 HOURS PRN, nausea, vomiting, Starting on 11/29/23 at 1831, This is Step 1 of nausea and vomiting management. If nausea not resolved in 15 minutes, go to Step 2 prochlorperazine (COMPAZINE). With dry hands, peel back foil backing and gently remove tablet. Do not push oral disintegrating tablet through foil backing. Administer immediately on tongue and oral disintegrating tablet dissolves in seconds, then swallow with saliva. Liquid not required. $Given 12/07/2023 3:50 AM CDT 4 mg $Given 12/06/2023 8:29 PM CDT 4 mg $Given 12/06/2023 4:18 AM CDT 4 mg ondansetron (ZOFRAN) injection 4 mg 4 mg, Intravenous, EVERY 30 MIN PRN, nausea, vomiting, Administer over 2-5 Minutes, Starting on 11/29/23 at 1439, For 3 doses, May repeat in 30 minutes as needed, up to 3 doses. Irritant. $Given 11/29/2023 3:33 PM CDT 4 mg ondansetron (ZOFRAN) injection 4 mg 4 mg, Intravenous, EVERY 6 HOURS PRN, nausea, vomiting, Administer over 2-5 Minutes, Starting on 11/29/23 at 1831, Give IF patient unable to tolerate oral medication. This is Step 1 of nausea and vomiting management. If nausea not resolved in 15 minutes, go to Step 2 prochlorperazine (COMPAZINE). Irritant. $Given 12/09/2023 8:25 AM CDT 4 mg $Given 12/08/2023 11:28 PM CDT 4 mg $Given 12/08/2023 4:04 PM CDT 4 mg pantoprazole (PROTONIX) EC tablet 40 mg 40 mg, Oral, EVERY MORNING BEFORE BREAKFAST, First dose on 11/30/23 at 0730, This therapy was substituted for esomeprazole (NEXIUM) 40 mg every morning before breakfast. $Given 12/08/2023 8:14 AM CDT 40 mg $Given 12/07/2023 8:14 AM CDT 40 mg $Given 12/06/2023 9:50 AM CDT 40 mg pantoprazole (PROTONIX) EC tablet 40 mg 40 mg, Oral, 2 TIMES DAILY BEFORE MEALS, First dose (after last modification) on Fri12/08/23 at 1630, This therapy was substituted for esomeprazole (NEXIUM) 40 mg every morning before breakfast. $Given 12/09/2023 4:05 PM CDT 40 mg $Given 12/09/2023 8:18 AM CDT 40 mg $Given 12/08/2023 4:21 PM CDT 40 mg polyethylene glycol (MIRALAX) Packet 17 g 17 g, Oral, DAILY, First dose on Fri12/03/23 at 1230, 1 Packet = 17 grams. Mix each gram with at least 1/2 ounce (15 mL) of water - 8 ounces for 17 g dose, 4 ounces for 8.5 g dose, 2 ounces for 4 g dose. Follow with the same volume of water. Hold for loose stools unless being administered as part of a bowel prep regimen or bowel clean out. $Given 12/04/2023 8:13 AM CDT 17 g predniSONE (DELTASONE) tablet 20 mg 20 mg, Oral, ONCE, On Fri12/08/23 at 1830, For 1 dose $Given 12/08/2023 8:26 PM CDT 20 mg predniSONE (DELTASONE) tablet 40 mg 40 mg, Oral, DAILY, First dose on Fri12/09/23 at 0800, For 7 days $Given 12/09/2023 8:18 AM CDT 40 mg senna-docusate (SENOKOT-S/PERICOLACE) 8.6-50 MG per tablet 1 tablet 1 tablet, Oral, 2 TIMES DAILY PRN, constipation, Starting on 11/29/23 at 1831, If no bowel movement in 24 hours, [...] 4: enema Hold for loose stools. $Given 12/09/2023 8:25 AM CDT 1 table t senna-docusate (SENOKOT-S/PERICOLACE) 8.6-50 MG per tablet 2 tablet 2 tablet, Oral, 2 TIMES DAILY PRN, constipation, Starting on 11/29/23 at 1831, IF more than 1 constipation PRN medication is ordered, administer step-walsh as indicated, moving to the next step ONLY if prior step ineffective. Step 1: senna-docusate (SENOKOT-S; PERICOLACE) OR bisacodyl (DULCOLAX) EC tablet Step 2: polyethylene glycol (MIRALAX/GLYCOLAX) Step 3: bisacodyl (DULCOLAX) suppository Step 4: enema Hold for loose stools. $Given 12/07/2023 8:14 AM CDT 2 tablets $Given 12/06/2023 9:51 AM CDT 2 tablets $Given 12/04/2023 8:51 PM CDT 2 tablets simethicone (MYLICON) chewable tablet 80 mg 80 mg, Oral, EVERY 6 HOURS PRN, cramping, Starting on 11/29/23 at 1831 $Given 12/09/2023 8:24 AM CDT 80 mg $Given 12/08/2023 1:42 PM CDT 80 mg $Given 12/08/2023 8:17 AM CDT 80 mg sodium chloride (PF) 0.9% PF flush 3 mL 3 mL, Intracatheter, EVERY 8 HOURS, First dose on 11/29/23 at 1900, to lock peripheral IV dormant line $Given 12/09/2023 11:43 AM CDT 3 mLs $Given 12/08/2023 11:34 PM CDT 3 mLs $Given 12/08/2023 4:14 PM CDT 3 mLs sodium chloride (PF) 0.9% PF flush 3 mL 3 mL, Intracatheter, EVERY 1 MIN PRN, line flush, other, to ensure patency or to lock dormant line, Starting on 11/29/23 at 1831 $Given 12/08/2023 11:31 PM CDT 3 mLs $Given 12/06/2023 2:55 PM CDT 3 mLs $Given 12/06/2023 2:49 PM CDT 3 mLs sodium chloride (PF) 0.9% PF flush 60 mL 60 mL, Intravenous, ONCE, On Fri12/03/23 at 0800, For 1 dose $Given 12/03/2023 8:27 AM CDT 60 mLs sodium chloride 0.9 % infusion at 100 mL/hr, Intravenous, CONTINUOUS, Starting on 11/29/23 at 2030, Until 12/01/23 at 1042 Rate/Dose Verify 12/01/2023 6:43 AM CDT 100 mL/hr $New Bag 12/01/2023 4:35 AM CDT 100 mL/hr Rate/Dose Verify 11/30/2023 7:00 PM CDT 100 mL/ hr traZODone (DESYREL) tablet 200 mg 200 mg, Oral, AT BEDTIME, First dose on 11/29/23 at 2230 $Given 12/08/2023 11:28 PM CDT 200 mg $Given 12/07/2023 10:09 PM CDT 200 mg $Given 12/06/2023 11:25 PM CDT 200 mg documented in this encounter Active and Recently Administered Medications Times are shown in CDT. Scheduled Medication Order 12/07/2023 12/08/2023 12/09/2023 ciprofloxacin (CIPRO) tablet 500 mg Routine, 500 mg, Oral, EVERY 12 HOURS SCHEDULED, First dose on Fri12/08/23 at 2000, For 5 days, Administer at least 2 hours before [...] hour after administration, Indications: Urinary Tract Infection 2025 ($Given - Provider: Chanelle Stewart RN) 0818 ($Given - Provider: Rhonda Ramon RN) famotidine (PEPCID) tablet 20 mg 20 mg, Oral, AT BEDTIME, First dose (after last modification) on Fri12/01/23 at 2200, Dose adjusted per renal dosing policy. Estimated CrCl = 30-60 mL/min. 2215 ($Given - Provider: Shreya Nicholson RN) 2329 ($Given - Provider: Chanelle Stewart, IFRAH) lactated ringers BOLUS 500 mL (COMPLETED) Intravenous, 500 mL, ONCE, at 250 mL/hr, Administer over 2 Hours, On Fri12/07/23 at 1030, For 1 dose 1029 ($New Bag - Provider: Anju Barrett, IFRAH) methylPREDNISolone sodium succinate (SOLU-MEDROL) injection 20 mg (CANCELED) 20 mg, Intravenous, EVERY 8 HOURS, First dose (after last modification) on Fri12/02/23 at 1630, Doses greater than or equal to 1000 mg administer over 60 minutes Doses greater than or equal to 500 mg administer over 30-60 minutes Doses greater than or equal to 250 mg administer over 15-30 minutes Doses less than or equal to 125 mg IVP over 3-5 minutes 0747 (Not Given - Provider: Anju Barrett RN - Reason: Loss of IV access)0849 ($Given - Provider: Anju Barrett RN - Comment: Loss of IV access)1626 ($Given - Provider: Anju Barrett RN) 0035 ($Given - Provider: Odalys Rodas RN)0815 ($Given - Provider: Anju Barrett, IFRAH) montelukast (SINGULAIR) tablet 10 mg 10 mg, Oral, AT BEDTIME, First dose on 11/29/23 at 2230 2210 ($Given - Provider: Shreya Nicholson RN) 232 ($Given - Provider: Chanelle Stewart, IFRAH) nortriptyline (PAMELOR) capsule 25 mg 25 mg, Oral, AT BEDTIME, First dose on 11/29/23 at 2230 2209 ($Given - Provider: Shreya Nicholson RN) 232 ($Given - Provider: Chanelle Stewart, IFRAH) pantoprazole (PROTONIX) EC tablet 40 mg (CANCELED) 40 mg, Oral, EVERY MORNING BEFORE BREAKFAST, First dose on Fri11/30/23 at 0730, This therapy was substituted for esomeprazole (NEXIUM) 40 mg every morning before breakfast. 0814 ($Given - Provider: Anju Barrett RN) 0814 ($Given - Provider: Anju Barrett RN) pantoprazole (PROTONIX) EC tablet 40 mg 40 mg, Oral, 2 TIMES DAILY BEFORE MEALS, First dose (after last modification) on Fri12/08/23 at 1630, This therapy was substituted for esomeprazole (NEXIUM) 40 mg every morning before breakfast. 1621 ($Given - Provider: Anju Barrett RN) 0818 ($Given - Provider: Rhonda Ramon, RN)1605 ($Given - Provider: Rhonda Ramon RN) polyethylene glycol (MIRALAX) Packet 17 g 17 g, Oral, DAILY, First dose on Fri12/03/23 at 1230, 1 Packet = 17 grams. Mix each gram with at least 1/2 ounce (15 mL) of water - 8 ounces for 17 g dose, 4 ounces for 8.5 g dose, 2 ounces for 4 g dose. Follow with the same volume of water. Hold for loose stools unless being administered as part of a bowel prep regimen or bowel clean out. 0924 (Not Given - Provider: Anju Barrett RN - Reason: Patient/family refused) 0814 (Not Given - Provider: Anju Barrett RN - Reason: Patient/family refused) 1144 (Not Given - Provider: Anju Barrett RN - Reason: Patient/family refused) predniSONE (DELTASONE) tablet 20 mg (COMPLETED) 20 mg, Oral, ONCE, On Fri12/08/23 at 1830, For 1 dose 2025 ($Given - Provider: Chanelle Stewart RN) predniSONE (DELTASONE) tablet 40 mg 40 mg, Oral, DAILY, First dose on Fri12/09/23 at 0800, For 7 days 0818 ($Given - Provider: Rhonda Ramon RN) sodium chloride (PF) 0.9% PF flush 3 mL 3 mL, Intracatheter, EVERY 8 HOURS, First dose on 11/29/23 at 1900, to lock peripheral IV dormant line 0350 ($Given - Provider: Lupe Paz RN)0849 ($Given - Provider: Anju Barrett, IFRAH)1626 ($Given - Provider: Anju Barrett, IFRAH) 0037 ($Given - Provider: Odalys Rodas, IFRAH)0823 ($Given - Provider: Anju Barrett, IFRAH)1614 ($Given - Provider: Anju Barrett, IFRAH)2334 ($Given - Provider: Chanelle Stewart, RN) 1143 ($Given - Provider: Anju Barrett, IFRAH)1600 (Canceled Entry - Provider: Orders Generic Provider - Comment: Automatically canceled at discontinue of medication order) traZODone (DESYREL) tablet 200 mg 200 mg, Oral, AT BEDTIME, First dose on 11/29/23 at 2230 2209 ($Given - Provider: Shreya Nicholson RN) 2328 ($Given - Provider: Chanelle Stewart, IFRAH) PRN Medication Order 12/07/2023 12/08/2023 12/09/2023 acetaminophen (TYLENOL) Suppository 650 mg(Linked Group 1) 650 mg, Rectal, EVERY 4 HOURS PRN, mild pain, other, and adjunct with moderate or severe pain or per patient request, Starting on 11/29/23 at 1831, Alternate with ibuprofen if ordered. Maximum acetaminophen dose from all sources = 75 mg/kg/day not to exceed 4 grams/day. 0825 (See Alternative - Provider: Anju Barrett RN)1456 (See Alternative - Provider: Anju Barrett RN) 0035 (See Alternative - Provider: Odalys Rodas, IFRAH)0420 (See Alternative - Provider: Odalys Rodas, IFRAH)0816 (See Alternative - Provider: Anju Barrett, IFRAH)1152 (See Alternative - Provider: Anju Barrett, IFRAH)1603 (See Alternative - Provider: Anju Barrett, IFRAH)2035 (See Alternative - Provider: Chanelle Stewart, IFRAH) 1143 (See Alternative - Provider: Anju Barrett, IFRAH) acetaminophen (TYLENOL) tablet 650 mg(Linked Group 1) 650 mg, Oral, EVERY 4 HOURS PRN, mild pain, other, and adjunct with moderate or severe pain or per patient request, Starting on 11/29/23 at 1831, Alternate with ibuprofen if ordered. Maximum acetaminophen dose from all sources = 75 mg/kg/day not to exceed 4 grams/day. 0825 ($Given - Provider: Anju Barrett RN)1456 ($Given - Provider: Anju Barrett RN) 0035 ($Given - Provider: Odalys Rodas, IFRAH)0420 ($Given - Provider: Odalys Rodas, IFRAH)0816 ($Given - Provider: Anju Barrett RN)1152 ($Given - Provider: Anju Barrett RN)1603 ($Given - Provider: Anju Barrett RN)2035 ($Given - Provider: Chanelle Stewart RN) 1143 ($Given - Provider: Anju Barrett RN) bisacodyl (DULCOLAX) suppository 10 mg 10 mg, Rectal, DAILY PRN, constipation, Starting on Betty 12/04/23 at 1302, 1ST dose now Hold for loose stools. calcium carbonate (TUMS) chewable tablet 1,000 mg 1,000 mg, Oral, 4 TIMES DAILY PRN, heartburn, Starting on 11/29/23 at 1831 1456 ($Given - Provider: Anju Barrett RN) 1159 ($Given - Provider: Anju Barertt RN) HYDROmorphone (DILAUDID) tablet 2 mg (CANCELED) 2 mg, Oral, EVERY 3 HOURS PRN, severe pain, Starting on 11/30/23 at 1208 0348 ($Given - Provider: Lupe Paz RN)0848 (Not Given - Provider: Anju Barrett RN - Reason: Patient/family refused) HYDROmorphone (DILAUDID) tablet 2-4 mg 2-4 mg, Oral, EVERY 3 HOURS PRN, severe pain, Starting on 12/07/23 at 0924 1210 ($Given - Provider: Anju Barrett RN)1456 ($Given - Provider: Anju Barrett RN)1821 ($Given - Provider: Anju Barrett RN)2211 ($Given - Provider: Shreya Nicholson RN) 0117 ($Given - Provider: Odalys Rodas, IFRAH)0420 ($Given - Provider: Odalys Rodas, IFRAH)0817 ($Given - Provider: Anju Barrett RN)1152 ($Given - Provider: Anju Barrett RN)1603 ($Given - Provider: Anju Barrett RN)2025 ($Given - Provider: Chanelle Stewart RN)2330 ($Given - Provider: Chanelle Stewart RN) 0418 ($Given - Provider: Chanelle Stewart RN)0818 ($Given - Provider: Rhonda Ramon RN)1143 ($Given - Provider: Anju Barrett RN)1605 ($Given - Provider: Rhonda Ramon RN) HYDROmorphone (PF) (DILAUDID) injection 0.5 mg 0.5 mg, Intravenous, EVERY 3 HOURS PRN, severe pain, Starting on 11/30/23 at 1259 0747 (Not Given - Provider: Anju Barrett RN - Reason: Loss of IV access)0848 ($Given - Provider: Anju Barrett RN) hydrOXYzine HCl (ATARAX) tablet 25 mg(Linked Group 2) 25 mg, Oral, EVERY 6 HOURS PRN, other, adjuvant pain, Starting on 11/30/23 at 1209, Start with 25 mg for the initial dose. If the 25 mg dose is ineffective, increase to the 50 mg dose at the next administration time and maintain further doses at 50 mg. If the 50 mg dose is ineffective, contact the provider. 0348 (See Alternative - Provider: Lupe Paz RN)1211 ($Given - Provider: Anju Barrett RN)1822 ($Given - Provider: Anju Barrett RN) 0035 ($Given - Provider: Odalys Rodas RN)0600 (See Alternative - Provider: Odalys Rodas RN)1152 ($Given - Provider: Anju Barrett, IFRAH)2322 (See Alternative - Provider: Chanelle Stewart, IFRAH) hydrOXYzine HCl (ATARAX) tablet 50 mg(Linked Group 2) 50 mg, Oral, EVERY 6 HOURS PRN, other, adjuvant pain, Starting on 11/30/23 at 1209, Start with 25 mg for the initial dose. If the 25 mg dose is ineffective, increase to the 50 mg dose at the next administration time and maintain further doses at 50 mg. If the 50 mg dose is ineffective, contact the provider. 0348 ($Given - Provider: Lupe Paz RN)1211 (See Alternative - Provider: Anju Barrett RN)1822 (See Alternative - Provider: Anju Barrett RN) 0035 (See Alternative - Provider: Odalys Rodas, IFRAH)0600 ($Given - Provider: Odalys Rodas RN)1152 (See Alternative - Provider: Anju Barrett, IFRAH)2321 ($Given - Provider: Chanelle Stewart, IFRAH) lidocaine (LMX4) cream Topical, EVERY 1 HOUR PRN, pain, with VAD insertion, Starting on 11/29/23 at 1831, Apply at least 30 minutes prior to [...] mild pain with VAD insertion, Starting on 11/29/23 at 1831, MAX dose 1 mL subcutaneous OR intradermal along the side of the vein in divided doses as needed for VAD insertion. Do NOT give if patient has a history of allergy to any local anesthetic or any carlos product. Do NOT use both lidocaine intradermal/subcutaneous injection and the lidocaine cream on the same site. naloxone (NARCAN) injection 0.2 mg(Linked Group 3) 0.2 mg, Intravenous, EVERY 2 MIN PRN, opioid reversal, Starting on 11/29/23 at 1908, Administer intravenous route when available and notify [...] 2 MIN PRN, opioid reversal, Starting on 11/29/23 at 1908, Administer intramuscular if an intravenous route is [...] 2 MIN PRN, opioid reversal, Starting on 11/29/23 at 1908, Administer intravenous route when available and notify [...] 2 MIN PRN, opioid reversal, Starting on 11/29/23 at 1908, Administer intramuscular if an intravenous route is [...] (ZOFRAN ODT) ODT tab 4 mg(Linked Group 4) 4 mg, Oral, EVERY 6 HOURS PRN, nausea, vomiting, Starting on 11/29/23 at 1831, This is Step 1 of nausea and vomiting management. If nausea not resolved in 15 minutes, go to Step 2 prochlorperazine (COMPAZINE). With dry hands, peel back foil backing and gently remove tablet. Do not push oral disintegrating tablet through foil backing. Administer immediately on tongue and oral disintegrating tablet dissolves in seconds, then swallow with saliva. Liquid not required. 0350 ($Given - Provider: Lupe Paz RN)1040 (See Alternative - Provider: Anju Barrett RN)1627 (See Alternative - Provider: Anju Barrett RN) 0956 (See Alternative - Provider: Anju Barrett RN)1604 (See Alternative - Provider: Anju Barrett RN)2328 (See Alternative - Provider: Chanelle Stewart RN) 0825 (See Alternative - Provider: Rhonda Ramon, IFRAH) ondansetron (ZOFRAN) injection 4 mg(Linked Group 4) 4 mg, Intravenous, EVERY 6 HOURS PRN, nausea, vomiting, Administer over 2-5 Minutes, Starting on 11/29/23 at 1831, Give IF patient unable to tolerate oral medication. This is Step 1 of nausea and vomiting management. If nausea not resolved in 15 minutes, go to Step 2 prochlorperazine (COMPAZINE). Irritant. 0350 (See Alternative - Provider: Lupe Paz RN)1040 ($Given - Provider: Anju Barrett RN)1627 ($Given - Provider: Anju Barrett RN) 0956 ($Given - Provider: Anju Barrett RN)1604 ($Given - Provider: Anju Barrett RN)2328 ($Given - Provider: Chanelle Stewart RN) 0825 ($Given - Provider: Rhonda Ramon RN) senna-docusate (SENOKOT-S/PERICOLACE) 8.6-50 MG per tablet 1 tablet(Linked Group 5) 1 tablet, Oral, 2 TIMES DAILY PRN, constipation, Starting on 11/29/23 at 1831, If no bowel movement in 24 hours, increase to 2 tablets by mouth. IF more than 1 constipation PRN medication is ordered, administer step-walsh as indicated, moving to the next step ONLY if prior step ineffective. Step 1: senna-docusate (SENOKOT-S; PERICOLACE) OR bisacodyl (DULCOLAX) EC tablet Step 2: polyethylene glycol (MIRALAX/GLYCOLAX) Step 3: bisacodyl (DULCOLAX) suppository Step 4: enema Hold for loose stools. 0814 (See Alternative - Provider: Anju Barrett RN)0925 (Not Given - Provider: Anju Barrett RN - Reason: Other) 1159 (Not Given - Provider: Anju Barrett RN - Reason: Other) 0825 ($Given - Provider: Rhonda Ramon RN) senna-docusate (SENOKOT-S/PERICOLACE) 8.6-50 MG per tablet 2 tablet(Linked Group 5) 2 tablet, Oral, 2 TIMES DAILY PRN, constipation, Starting on 11/29/23 at 1831, IF more than 1 constipation PRN medication is ordered, administer step-walsh as indicated, moving to the next step ONLY if prior step ineffective. Step 1: senna-docusate (SENOKOT-S; PERICOLACE) OR bisacodyl (DULCOLAX) EC tablet Step 2: polyethylene glycol (MIRALAX/GLYCOLAX) Step 3: bisacodyl (DULCOLAX) suppository Step 4: enema Hold for loose stools. 0814 ($Given - Provider: Anju Barrett RN)0925 (See Alternative - Provider: Anju Barrett RN) 1159 (See Alternative - Provider: Anju Barrett RN) 0825 (See Alternative - Provider: Rhonda Ramon RN) simethicone (MYLICON) chewable tablet 80 mg 80 mg, Oral, EVERY 6 HOURS PRN, cramping, Starting on 11/29/23 at 1831 0348 ($Given - Provider: Lupe Paz RN)1040 ($Given - Provider: Anju Barrett RN)1627 ($Given - Provider: Anju Barrett RN) 0117 ($Given - Provider: Odalys Rodas RN)0817 ($Given - Provider: Anju Barrett RN)1342 ($Given - Provider: Anju Barrett RN) 0824 ($Given - Provider: Rhonda Ramon RN) sodium chloride (PF) 0.9% PF flush 3 mL 3 mL, Intracatheter, EVERY 1 MIN PRN, line flush, other, to ensure patency or to lock dormant line, Starting on 11/29/23 at 1831 2331 ($Given - Provider: Chanelle Stewart RN) Linked Groups Order Group 1: acetaminophen (TYLENOL) tablet 650 mgJump to med 650 mg, Oral, EVERY 4 HOURS PRN, mild pain, other, and adjunct with moderate or severe pain or per patient request, Starting on 11/29/23 at 1831, Alternate with ibuprofen if ordered. Maximum acetaminophen dose from all sources = 75 mg/kg/day not to exceed 4 grams/day. Or acetaminophen (TYLENOL) Suppository 650 mgJump to med 650 mg, Rectal, EVERY 4 HOURS PRN, mild pain, other, and adjunct with moderate or severe pain or per patient request, Starting on 11/29/23 at 1831, Alternate with ibuprofen if ordered. Maximum acetaminophen dose from all sources = 75 mg/kg/day not to exceed 4 grams/day. Group 2: hydrOXYzine HCl (ATARAX) tablet 25 mgJump to med 25 mg, Oral, EVERY 6 HOURS PRN, other, adjuvant pain, Starting on 11/30/23 at 1209, Start with 25 mg for the initial dose. If the 25 mg dose is ineffective, increase to the 50 mg dose at the next administration time and maintain further doses at 50 mg. If the 50 mg dose is ineffective, contact the provider. Or hydrOXYzine HCl (ATARAX) tablet 50 mgJump to med 50 mg, Oral, EVERY 6 HOURS PRN, other, adjuvant pain, Starting on 11/30/23 at 1209, Start with 25 mg for the initial dose. If the 25 mg dose is ineffective, increase to the 50 mg dose at the next administration time and maintain further doses at 50 mg. If the 50 mg dose is ineffective, contact the provider. Group 3: naloxone (NARCAN) injection 0.2 mgJump to med 0.2 mg, Intravenous, EVERY 2 MIN PRN, opioid reversal, Starting on 11/29/23 at 1908, Administer intravenous route when available and notify [...] 2 MIN PRN, opioid reversal, Starting on 11/29/23 at 1908, Administer intravenous route when available and notify [...] 2 MIN PRN, opioid reversal, Starting on 11/29/23 at 1908, Administer intramuscular if an intravenous route is [...] 2 MIN PRN, opioid reversal, Starting on 11/29/23 at 1908, Administer intramuscular if an intravenous route is [...] not improved after 4 naloxone doses. Group 4: ondansetron (ZOFRAN ODT) ODT tab 4 mgJump to med 4 mg, Oral, EVERY 6 HOURS PRN, nausea, vomiting, Starting on 11/29/23 at 1831, This is Step 1 of nausea and [...] vomiting, Administer over 2-5 Minutes, Starting on 11/29/23 at 1831, Give IF patient unable to tolerate oral medication. This is Step 1 of nausea and vomiting management. If nausea not resolved in 15 minutes, go to Step 2 prochlorperazine (COMPAZINE). Irritant. Group 5: senna-docusate (SENOKOT-S/PERICOLACE) 8.6-50 MG per tablet 1 tabletJump to med 1 tablet, Oral, 2 TIMES DAILY PRN, constipation, Starting on 11/29/23 at 1831, If no bowel movement in 24 hours, [...] 2 TIMES DAILY PRN, constipation, Starting on 11/29/23 at 1831, IF more than 1 constipation PRN medication [...] documented as of this encounter Care Teams [employer] Teacher Relationship Specialty Start Date End Date Andrew Israel PA-C [address] [place] [address] PCP - General 05/15/23 documented as of this encounter
--- OUTSIDE RECORDS SUMMARY | 2024-01-20 21:13 | XMS_ITS | Clinical Summary ---
Author Name Unknown Organization [employer] [facility] [employer] [facility] Address [place], [place] [address] Care Team Providers Care Commercial Marketing Specialist Name Role Phone Adithya Patten MD Primary [...] 02/13/2017 Active nortriptyline (PAMELOR) 25 mg capsule 09/11/2019 Active Active Problems No known active problems Encounters Date Type Department Care Team Description 10/30/2023 Lab Requisition [facility] [phone] Rebeca Castro MD from Last 3 Months Family History Medical History Relation Name Comments [...] 05/23/2009 10:00 AM CDT Plan of Treatment Upcoming Encounters Date Type Department Care Team (Late st Contact Info) Description 01/27/2024 9:00 AM CDT Office Visit [facility] [address] [place] [address] [place] [address] [place] [address] Health Maintenance Due Date Last Done Comments Tdap 1970 Depression screening for age 12+ [...] for age 50+ (1 of 2) 2009 COVID-19 vaccine series (3 season) 2023 12/26/2020, 12/05/2020 Influenza for age 50-64 05/09/2024 Pneumococcal series for age 6-64 Aged Out No longer eligible b ased on patient's age to complete this topic Procedures Procedure Name Priority Date/Time Associated Diagnosis Comments LAB TRACKING EVENT Routine 10/30/2023 9: 00 AM [employer] PATH TISSUE EXAM Routine 10/30/2023 9:00 AM [employer] from Last 3 Months Results * LAB TRACKING EVENT (10/30/2023 9:00 AM [employer]) Other (Other) Client Collect / Unknown 10/30/2023 9:00 AM [employer] 10/30/2023 3:22 PM [employer] Rebeca Castro MD LAB BILL ONLY [facility] [address] [place] [address], * PATH TISSUE EXAM (10/30/2023 9:00 AM [employer]) Case Report Pathology Report ?Case: [id number] ? Authorizing Provider: ??Rebeca Castro MD ?? Collected: ? 10/30/2023 0900 ? Ordering Location: ? [facility] ?Received: ?10/30/2023 1859 ? Pathologist: ? Lorene Mei MD ? Specimen: ?Chest ? 11/03/2023 9:10 AM [facility] [employer] [facility] Final Diagnosis A) SKIN, LEFT LATERAL CHEST, BIOPSY: 1. Intradermal nevus 2. Negative for malignancy 11/03/2023 9:10 AM [facility] [employer] [facility] Comment A) Incomplete sampling of melanocytic proliferations may impair accurate diagnosis. Clinical correlation with the overall size of the lesion, and presence of remaining or recurring pigment, is required for optimal treatment. 11/03/2023 9:10 AM [facility] [employer] [facility] EN[facility] Clinical Information Irritated nevus rule out atypia 11/03/2023 9:10 AM [facility] Gross Description A) Received in formalin, labeled with the patient's name and left lateral chest, is a 0.8 x 0.7 x 0.1 cm skin biopsy. There is a 0.7 x 0.6 cm raised claudio lesion. The specimen is inked red, trisected and entirely submitted in one cassette. EKW 10/30/2023 11/03/2023 9:10 AM [facility] [employer] LABORATORY ENTRAL LABORATORY Microscopic Description The final diagnosis is based on microscopic examination of appropriate sections of all specimens. 11/03/2023 9:10 AM [facility] [employer] [facility] Additional Information Interpreted at [facility] Laboratory - [address], [place] [address] 11/03/2023 9:[address] [facility] [employer] [facility] Other (Chest) 10/30/2023 9:0 0 AM [employer] 10/30/2023 6:59 PM [employer] Rebeca Castro MD PATHOLOGY/CYTOLOG Y [facility] [address] [place] [address], from Last 3 Months Advance Directives * Full Code (Latest Code Status on File) Date Activated Date Inactivated Comments 05/23/2009 10:06 AM 05/24/2009 2:39 AM Care Teams Commercial Marketing Specialist Relationship Specialty Start Date End Date Adithya Patten MD PCP - General 05/21/09
--- OUTSIDE RECORDS SUMMARY | 2024-01-20 21:14 | XMS_ITS | Continuity of Care Document ---
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 Name Role Phone DavidtrAlisa Mas Unavailable Unavailable Allergies, Adverse Reactions, Alerts Substance Reaction Status Criticality MEPERIDINE HCL Nausea/Vomiting Active No Informa tion adhesive tape Rash Active No Information MEPERIDINE HCL Anaphylaxis Active No Informatio n OXYCODONE HCL Anaphylaxis Active No Information acetaminophen Anaphylaxis Active No Information MEPERIDINE HCL Nausea/Vomiting Active No Informa tion OXYCODONE HCL Nausea/Vomiting Active No Informat ion acetaminophen Nausea/Vomiting Active No Informat ion Nausea/Vomiting Active No Informati on MEPERIDINE HCL [...] Effective Dates (start - stop) Status Comments zolpidem 5 mg tablet take 1 tablet by oral route every day at bedtime as needed 5 MG - Active ondansetron 4 mg disintegrating tablet Take 1-2 tablets by mouth every 8 hours as needed for nausea during colon prep. - Active prednisone 5 mg tablet take 25 milligram by oral route daily for 7 days and then taper by 5mg every 7 days Apr-26-2024 - Active to complete taper Solu-Medrol (PF) 40 mg/mL solution for injection Administer Solu-medrol 40 mg IV with infusion - Active Remicade 100 mg intravenous solution Administer Remicade 10mg/kg every four weeks, infuse by IV route - Active prednisone 5 mg tablet take by Oral route as directed Not Available - Active Take 8 tablets daily x 1 week then 7 tabs daily x 1 week, 6 tabs daily x 1 week, 5 tabs dialy x 1 week, 4 tabs daily x 1 week, 3 tabs daily x 1 week, 2 tabs daily x 1 week 1 tab daily until gone benzonatate 200 mg capsule take 1 capsule by oral route 3 times every day as needed for cough 200 MG - Active montelukast 5 mg chewable tablet chew 2 tablet by oral route every day in the evening 10 MG - Active dicyclomine 20 mg tablet take 1 tablet by oral route 4 times every day as needed for abdominal pain and/or bowel urgency - Active Remicade 100 mg intravenous solution Administer Remicade 10mg/kg every six weeks, infuse by IV route - Active Claritin 10 mg tablet Take Claritin 10mg day before and day of infusion - Active Solu-Medrol (PF) 40 mg/mL solution for injection Administer Solu-medrol 40 mg IV - Active Tylenol 325 mg tablet Take Tylenol 650mg PO half hour before infusion - Active Solu-Medrol (PF) 40 mg/mL solution for injection Administer Solu-medrol 40 mg IV - Active Venofer 200 mg iron/10 mL intravenous solution Administer 5 200mg doses of Venofer by IV route over a 14 day period over at least 15 minutes - Active cyanocobalamin (vit B-12) 1,000 mcg/mL injection solution Administer Vitamin B-12 1,000mcg/mL every month, by intramuscular route - Active methocarbamol 500 mg tablet take 1 tablet by oral route 4 times every day 500 MG - Active Senokot 8.6 mg tablet take 2 tablet by oral route every bedtime 2 tablet - Active esomeprazole magnesium 40 mg capsule,delayed release take 1 capsule by oral route 2 times daily 30 minutes to 1 hour before breakfast and dinner - Active acetaminophen ER 650 mg tablet,extended release take 1 tablet by oral route every 8 hours as needed swallowing whole with water. Do not break, crush, dissolve and/or chew. as needed 650 MG - Active Proair Digihaler 90 mcg/actuation aerosol powder breath [...] patient takes 200mg Not Available - Active Vitamin D3 50 mcg (2,000 unit) capsule take by Oral route every day Not Available - Active Vitamin C 1,000 mg tablet take 1 Tablet by Oral route every day 1 Tablet - Active L-LYSINE (unknown strength) take 1 by oral route every morning Not Available - Active ondansetron 4 mg disintegrating tablet Take 1-2 tablets by mouth every 8 hours as needed for nausea during colon prep. - No Longer Active Procedures Procedure Date Offic/outpt E&m Estab Mod-hi 2 24 IV Infusion Up To 1 Hour Remicade Per 10 Mg Established Level 4 Subsqt Hosp-da E&m Minr Compl 4 Subsqt Hosp-da E&m Stable 15 M 24 Subsqt Hosp-da E&m Minr Compl 4 Subsqt Hosp-da E&m Minr Compl 4 Subsqt Hosp-da E&m Minr Compl 4 Subsqt Hosp-da E&m Minr Compl 4 Subsqt Hosp-da E&m Minr Compl 4 Init Inpt Cons New/est Mod-hi 4 Avsola IV Infusion Up To 1 Hour Each Add Seq IV Push, Non Chem 24 Methylpred Na Succinate-40 Mg 4 Routine Serum Collection Offic/outpt E&m Estab Low-mod 4 Init Inpt Cons New/est Mod-hi 4 Remicade Per 10 Mg Remicade Per 10 Mg IV Infusion Up To 1 Hour Routine Serum Collection Established Level 4 Colonoscopy Flex; W/bx 1/mx Moderate Sedation, Initial [...] Diagnoses Date Provider Providers Copied on Encounter Offic/outpt E&m Estab Mod-hi 2 [facility] [address] [address], [place], [place], [id number], tel:[phone] [facility] GI Symptoms or Concerns (chief complaint) Crohn's disease of small intestine without complications 4 Edstrmeredith Cuellar. [address], [id number], [place]. tel:[phone] Referring Provider: Referral Self, USE FOR SELF REFERRALS. [facility] [address] [address], [place], [place], [address], tel:[phone] [facility] Crohn's disease of small intestine without complications 4 Juan Carlos Lozada. [address] [facility], [address], [id number], [place]. tel:[phone] Referring Provider: Referral Self, USE FOR SELF REFERRALS. [facility], [address] [address], [place], [address], [place] tel:[phone] [facility] Crohn's disease of small intestine without complication Apr-1 4 Drake Spivey. [address] [place] [address], [id number], [place]. tel:[phone] Referring Provider: Referral Self, USE FOR SELF REFERRALS. [facility], [address] [address], [place], [address], [place] tel:[phone] [facility] No Information Apr-1 4 Bhavin Haji. [address] [place] [address], [id number], [place]. tel:[phone] [facility], [address] [address], [place], [address], [place] tel:[phone] [facility] Crohn's disease of small intestine without complication Apr-0 4 Danii Cagle. [address] [place] [address], [id number], [place]. tel:[phone] Established Level 4 [facility], [address] [address], [place], [address], [place] tel:[phone] [facility] GI Symptoms or Concerns (chief complaint) Previous History Review (chief complaint) Crohn's disease of small intestine without complication Apr-0 4 Danii Cagle. [address] [place] [address], [id number], [place]. tel:[phone] Referring Provider: Referral Self, USE FOR SELF REFERRALS. [facility], [address] [address], [place], [address], [place] tel:[phone] [facility] Crohn's disease of small intestine without complication Apr-0 4 Drake Spivey. [address] [facility] [address], [place], [place], [id number], [place]. tel:[phone] Subsqt Hosp-da E&m Minr Compl [facility], [address] [address], [place], [place], [address], [place] tel:[phone] [facility] No Information 0 4 Edstrmeredith Cuellar. [address] [place] [address], [place], [address], [place]. tel:[phone] Referring Provider: Alisa WEST, [address] [place] [address], [place], [address]. tel:[phone] Subsqt Hosp-da E&m Minr Compl [facility], [address] [address], [place], [place], [address], [place] tel:[phone] [facility] No Information 4 Danii Cagle. [address] [place] [address], [place], [id number], [place]. tel:[phone] Referring Provider: Gurjit Foy MD, [address] [place] [address], [address]. tel:[phone] Subsqt Hosp-da E&m Minr Compl [facility], [address] [address], [place], [place], [address], [place] tel:[phone] [facility] No Information 4 Edstrmeredith Cuellar. [address] [place] [address], [place], [id number], [place]. tel:[phone] Referring Provider: Alisa WEST, [address] [place] [address], [address]. tel:[phone] Subsqt Hosp-da E&m Minr Compl [facility], [address] [address], [facility] [place], [address], [place] tel:[phone] [facility] No Information 4 Zoë Bazan. [address] [facility], [facility] [address], [place], [place], [id number], [place]. tel:[phone] Referring Provider: Hortensia Wu, [address] [address], [place], [address]. tel:[phone] Init Inpt Cons New/est Mod-hi [facility], [address] [address], [place], [address], [place] tel:[phone] [facility] No Information Nov-2 4 Thai Moya. [address], [id number], [place]. tel:[phone] Referring Provider: Andrew PRADHAN, [address], [place], [address]. tel:[phone] [facility], [address] [address], [place], [address], [place] tel:[phone] [facility] No Information 2 4 Edstrom BRETT Cuellar. [address] [facility], [address], [id number], [place]. tel:[phone] [facility], [address] [address], [place], [address], [place] tel:[phone] [facility] Crohn's disease of small intestine without complication Nov- 4 Drake Spivey. [address], [id number], [place]. tel:[phone] [facility], [address] [address], [place], [address], [place] tel:[phone] [facility] Crohn's disease of small intestine without complication Mar-0 4 Drake Spivey. [address] [place] [address], [id number], [place]. tel:[phone] Referring Provider: Referral Self, USE FOR SELF REFERRALS. [facility], [address] [address], [place], [id number], [place] tel:[phone] [facility] [place] Crohn's disease of small intestine without complications 4 Anastacio Schwartz. [address], [id number], [place]. tel:[phone] Referring Provider: Referral Self, USE FOR SELF REFERRALS. [facility], [address] [address], [place], [id number], [place] tel:[phone] [facility] [place] Crohn's disease of small intestine without complications 4 Emerson Segundoanine. [address] [place] [address], [id number], [place]. tel:[phone] Referring Provider: Referral Self, USE FOR SELF REFERRALS. Offic/outpt E&m Estab Low-mod [facility], [address] [address], [place], [id number], [place] tel:[phone] [facility] GI Symptoms or Concerns (chief complaint) Additional Narrative (chief complaint) Diarrhea, unspecifiedCr ohn's disease of small intestine without complications 4 Drake Spivey. [address] [place] [address], [id number], [place]. tel:[phone] Referring Provider: Referral Self, USE FOR SELF REFERRALS. [facility], [address] [address], [place], [id number], [place] tel:[phone] [facility] [place] Crohn's disease of small intestine without complications 4 Emerson Cuellar. [address] [place] [address], [id number], [place]. tel:[phone] [facility], [address] [address], [place], [id number], [place] tel:[phone] [facility] No Information 4 Jhonatan Farah. [address] [place] [address] [place], [id number], [place]. tel:[phone] [facility], [address] [address], [place], [address], [place] tel:[phone] [facility] Crohn's disease of small intestine without complications 4 Edstrom BRETT Cuellar. [address], [id number], [place]. tel:[phone] [facility], [address] [address], [place], [address], [place] tel:[phone] [facility] Crohn's disease of small intestine without complications 4 Alexander Foley. [address], [id number], [place]. tel:[phone] Init Inpt Cons New/est Mod-hi [facility], [address] [address], [place], [address], [place] tel:[phone] [facility] No Information 4 Zoë Bazan. [address], [id number], [place]. tel:[phone] Referring Provider: Andrew PRADHAN, [address], [place], [address]. tel:[phone] [facility], [address] [address], [place], [address], [place] tel:[phone] [facility] Crohn's disease of small intestine without complications 4 Edstrom [place] Cuellar. [address], [id number], [place]. tel:[phone] [facility], [address] [address], [place], [address], [place] tel:[phone] [facility] Crohn's disease of small intestine without complications 3 Edstrom PA Alisa. [address] [facility] [address], [place], [address], [place]. tel:[phone] [facility], [address] [address], [place], [address], [place] tel:[phone] [facility] Crohn's disease of small intestine without complications 3 Saulo Malave. [address] [facility], [facility] [address], [place], [address], [place]. tel:[phone] Referring Provider: Referral Self, USE FOR SELF REFERRALS. [facility], [address] [address], [place], [address], [place] tel:[phone] [facility] Crohn's disease of small intestine without complications 3 Edstrom BRETT Cuellar. [address] [facility], [facility] [address], [place], [address], [place]. tel:[phone] Referring Provider: Referral Self, USE FOR SELF REFERRALS. [facility], [address] [address], [place], [address], [place] tel:[phone] [facility] No Information 0 3 Anthony Duenas. [address] [facility], [facility] [address], [place], [address], [place]. tel:[phone] [facility], [address] [address], [place], [address], [place] tel:[phone] [facility] Crohn's disease of small intestine without complications 0 3 Edstrom [place] Cuellar. [address] [facility] [address], [place], [address], [place]. tel:[phone] [facility], [address] [address], [place], [address], [place] tel:[phone] [facility] Crohn's disease of small intestine without complications Nov3 0 3 Edstrom [place]TT Cuellar. [address] [facility] [address], [place], [address], [place]. tel:[phone] Established Level 4 [facility], [address] [address], [place], [id number], [place] tel:[phone] [facility] GI Symptoms or Concerns (chief complaint) Additional Narrative (chief complaint) Crohn's disease of small intestine without complications Diarrhea, unspecifiedIr on deficiency anemia, unspecified 3 Edstrom BRETT Cuellar. [address], [id number], [place]. tel:[phone] Referring Provider: Referral Self, USE FOR SELF REFERRALS. [facility], [address] [address], [place], [address], [place] tel:[phone] [facility] Crohn's disease of small intestine without complications 3 Bhavin Haji. [facility] [address], [id number], [place]. tel:[phone] [facility], [address] [address], [place], [address], [place] tel:[phone] [facility] No Information 3 Saulo Malave. [address] [place] [address], [id number], [place]. tel:[phone] Referring Provider: Andrew PRADHAN, [address], [place], [address]. tel:[phone] Init Inpt Cons New/est Mod-hi [facility], [address] [address], [place], [id number], [place] tel:[phone] [facility] No Information 3 Marshall Hernández. [facility] [address], [id number], [place]. tel:[phone] Referring Provider: Andrew PRADHAN, [address], [place], [address]. tel:[phone] [facility], [address] [address], [place], [address], [place] tel:[phone] [facility] Crohn's disease of small intestine without complications Oct-0 9 3 Edstrom [place]TT Cuellar. [address] [facility], [address], [id number], [place]. tel:[phone] [facility], [address] [address], [place], [address], [place] tel:[phone] [facility] Crohn's disease of small intestine without complications Oct-0 4-202 3 Edstrom [place]TT Cuellar. [address] [facility], [facility] [address], [place], [address], [place]. tel:[phone] [facility], [address] [address], [place], [address], [place] tel:[phone] [facility] Iron deficiency anemia, unspecified Sep-0 3 Al Encinas. [address], [id number], [place]. tel:[phone] Referring Provider: Referral Self, USE FOR SELF REFERRALS. [facility], [address] [address], [place], [address], [place] tel:[phone] [facility] Iron deficiency anemia, unspecified Sep-0 3 Manuel Lemons. [address] [facility], [address], [address], [place]. tel:[phone] Referring Provider: Referral Self, USE FOR SELF REFERRALS. [facility], [address] [address], [place], [address], [place] tel:[phone] [facility] Iron deficiency anemia, unspecified iron deficiency anemia type Sep-0 3 Edstrom [place] Cuellar. [address] [facility], [facility] [address], [place], [address], [place]. tel:[phone] [facility], [address] [address], [place], [address], [place] tel:[phone] [facility] No Information 3 Emerson Cuellar. [address] [facility], [facility] [address], [place], [place], [address], [place]. tel:[phone] [facility], [address] [address], [place], [address], [place] tel:[phone] [facility] Crohn's disease of small intestine without complications 3 Christopher Pak. [address] [facility], [facility] [address], [place], [address], [place]. tel:[phone] Referring Provider: Referral Self, USE FOR SELF REFERRALS. [facility], [address] [address], [place], [address], [place] tel:[phone] [facility] Crohn's disease of small intestine without complications 3 Emerson Cuellar. [address] [facility] [address], [place], [address], [place]. tel:[phone] Referring Provider: Alisa WEST, [address] [facility] [address], [place], [address]. tel:[phone] [facility], [address] [address], [place], [address], [place] tel:[phone] [facility] Iron deficiency anemia, unspecified iron deficiency anemia type 3 Emerson Cuellar. [address] [facility], [facility] [address], [place], [address], [place]. tel:[phone] [facility], [address] [address], [place], [address], [place] tel:[phone] [facility] Terminal ileitis without complication 3 Emerson Cuellar. [address] [facility], [facility] [address], [place], [address], [place]. tel:[phone] [facility], [address] [address], [place], [address], [place] tel:[phone] [facility] Terminal ileitis without complication 3 Emerson WEST Alisa. [address] [facility], [facility] [address], [place], [place], [address], [place]. tel:[phone] Offic/outpt E&m Estab Low-mod [facility], [address] [address], [place], [address], [place] tel:[phone] [facility] GI Symptoms or Concerns (chief complaint) Additional Narrative (chief complaint) Terminal ileitis without complication 3 Edstrmeredith Cuellar. [address] [facility], [facility] [address], [place], [address], [place]. tel:[phone] Referring Provider: Referral Self, USE FOR SELF REFERRALS. [facility], [address] [address], [place], [address], [place] tel:[phone] [facility] Terminal ileitis without complication 3 Sonny Freeman. [address] [facility], [facility] [address], [place], [address], [place]. tel:[phone] [facility], [address] [address], [place], [address], [place] tel:[phone] [facility] Terminal ileitis without complication 3 Sonny Freeman. [address] [facility], [facility] [address], [place], [address], [place]. tel:[phone] Init Inpt Cons New/est Mod-hi [facility], [address] [address], [place], [address], [place] tel:[phone] [facility] No Information 3 Citlalli Gupta. [address] [facility], [address] [address], [place], [place], [address], [place]. tel:[phone] Referring Provider: Carolin Harris PAC R, [address] [facility], [place], [address]. tel:[phone] [facility], [address] [address], [place], [place], [address], [place] tel:[phone] [facility] B12 deficiency 3 Sonny Freeman. [address] [facility], [address], [address], [place]. tel:[phone] [facility], [address] [address], [facility] [place], [address], [place] tel:[phone] [facility] Terminal ileitis without complication 3 Reji Ashley. [address] [facility], [facility] [address], [place], [address], [place]. tel:[phone] Referring Provider: Referral Self, USE FOR SELF REFERRALS. Offic/outpt E&m Estab Low-mod [facility], [address] [address], [facility] [place], [address], [place] tel:[phone] [facility] GI Symptoms or Concerns (chief complaint) Terminal ileitis without complicationD ietary counseling and surveillance 3 Sonny Freeman. [address] [facility], [address], [id number], [place]. tel:[phone] Referring Provider: Referral Self, USE FOR SELF REFERRALS. [facility], [address] [address], [facility] [place], [address], [place] tel:[phone] [facility] Terminal ileitis without complication 3 Nisha Paez. [address] [facility], [facility] [address], [place], [place], [address], [place]. tel:[phone] Kenny Limon MD. tel:[phone] Subsqt Hosp-da E&m Minr Compl [facility], [address] [address], [facility] [place], [address], [place] tel:[phone] [facility] No Information 3 Arjun Pascual. [address] [facility], [facility] [address], [place], [place], [address], [place]. tel:[phone] Referring Provider: Alton Díaz DO, [address] [facility] [address], [place], [address]. [phone] [facility], [address] [address], [place], [place], [address], [place] tel:[phone] [facility] No Information 3 Davidtrmeredith Cuellar. [address] [facility], [facility] [address], [place], [address], [place]. tel:[phone] Subsqt Hosp-da E&m Sig Compl 3 [facility], [address] [address], [facility] [place], [address], [place] tel:[phone] [facility] No Information 3 Marshall Hernández. [address] [place] [address], [id number], [place]. tel:[phone] Referring Provider: Betty Olivares NP, [address] [place] [address], [address]. tel:[phone] [facility], [address] [address], [place], [place], [id number], [place] tel:[phone] [facility] No Information 3 Alexander Foley. [address] [facility], [facility] [address], [place], [id number], [place]. tel:[phone] Referring Provider: Og Munoz MD S, [address], [address]. tel:[phone] [facility], [address] [address], [facility] [place], [id number], [place] tel:[phone] [facility] No Information 3 Zoë Bazan. [address] [facility], [facility] [address], [place], [id number], [place]. tel:[phone] Referring Provider: Betty Olivares [employer]ING BOAT MATE, [address] [facility] [address], [place], [address]. tel:[phone] [facility], [address] [address], [place], [id number], [place] tel:[phone] [facility] Terminal ileitis without complication 3 Citlalli Gupta. [address] [place] [address], [facility] [address], [place], [id number], [place]. tel:[phone] [facility], [address] [address], [place], [id number], [place] tel:[phone] [facility] No Information 3 Citlalli Gupta. [address] [place] [address], [id number], [place]. tel:[phone] Referring Provider: Candy Lennon [employer]ING [employer] MATE, [address] [place] [address], [address]. tel:[phone] [facility], [address] [address], [place], [id number], [place] tel:[phone] [facility] No Information 3 No Information Init Inpt Cons New/est Mod-hi [facility], [address] [address], [place], [place], [id number], [place] tel:[phone] [facility] No Information 3 Suze Pedro. [address] [place] [address], [facility] [address], [place], [id number], [place]. tel:[phone] Referring Provider: Mayela Pruitt NP, [address] [place] [address], [address]. tel:[phone] Offic/outpt E&m Estab Mod-hi 2 [facility], [address] [address], [place], [place], [id number], [place] tel:[phone] [facility] GI Symptoms or Concerns (chief complaint) Additional Narrative (chief complaint) Terminal ileitis without complicationD iarrhea, unspecifiedEp igastric painAbdominal pain, lowerWeight loss 3 Edstrom BRETT Cuellar. [address] [facility], [facility] 500, [place], [place], [id number], [place]. tel:[phone] Kenny Limon MD. tel:[phone] marsh Provider: Referral Self, USE FOR SELF REFERRALS. [facility], [address] [address], [place], [place], [id number], [place] tel:[phone] [facility] Chronic diarrhea 3 Mariano Engel [address] [facility], [facility] [address], [place], [id number], [place]. tel:[phone] Kenny Limon MD. tel:[phone] [facility], [address] [address], [place], [place], [id number], [place] tel:[phone] [facility] GI Symptoms or Concerns (chief complaint) Chronic diarrheaColor ectal polyp detected on colonoscopyTe rminal ileitis without complicationD iarrhea, unspecifiedBe nign neoplasm of cecumNoninfec tive gastroenterit is and colitis, unspecifiedBe nign neoplasm of cecum 3 Mariano Engel [address] [facility], [facility] [address], [place], [id number], [place]. tel:[phone] Kenny Limon MD. tel:[phone] Provider: Andrew PRADHAN, [address], [place], [address]. tel:[phone] [facility], [address] [address], [place], [place], [id number], [place] tel:[phone] [facility] No Information 3 Mariano Engel [address] [facility], [facility] 500, [place], [place], [id number], [place]. tel:[phone] [facility], [address] [address], [place], [id number], [place] tel:[phone] [facility] Acute diarrhea May-0 3 Jude Arzola. [address] [facility], [facility] 500, [place], [place], [id number], [place]. tel:[phone] Referring Provider: Referral Self, USE FOR SELF REFERRALS. Office Cons New/estab Mod [facility], [address] [address], [place], [id number], [place] tel:[phone] [facility] GI Symptoms or Concerns (chief complaint) Acute diarrhea Dec- 3 Jude Arzola. [address] [facility], [facility] [address], [place], [place], [id number], [place]. tel:[phone] Kenny Limon MD. tel:[phone] marsh Provider: Andrew PRADHAN, [address], [place], [address]. tel:[phone] Family History Family Member Type Diagnosis Age [...] Cancer, breast Immunizations Vaccine Date Status Comments Influenza, injectable, Madin Marilu Canine Kidney, preservative free, quadrivalent administered Note: [facility] bi-direct ional interface ; Source: Other Registry SARS-COV-2 (COVID-19) vaccin e, mRNA, spike protein, LNP, preservative free, 50 mcg/0.5 mL dose administered Note: [facility] bi-direct ional interface ; Source: Other Registry zoster vaccine recombinant administered N ote: [facility] bi-directional interface ; Source: Other Registry SARS-COV-2 (COVID-19) [...] ; Source: Other Registry Influenza, injectable, Madin Marilu Canine Kidney, preservative free, quadrivalent administered Note: [facility] bi-direct ional interface ; Source: Other Registry Afluria Qd administered Note: M [facility] bi-directional interface ; Source: Other Registry influenza, high dose seasona l, preservative-free administered Note: [facility] bi-direct ional interface ; Source: Other Registry Influenza, seasonal, injectable, preservative free administered Note: [facility] bi-directional interface ; Source: Other Registry tetanus toxoid, reduced diphtheria toxoid, and acellular pertussis vaccine, adsorbed administered Note: [facility] bi-direct ional interface ; Source: Other Registry Influenza, seasonal, injectable, preservative free administered Note: [facility] bi-directional interface ; Source: Other Registry Influenza, seasonal, injectable administered Note: [facility] bi-direct ional interface ; Source: Other Registry Pneumococcal conjugate PCV20 pending Source: New Immunization Record Hep B, recombinant, adjuvanted pending Source: New Immunization Record Hep B, recombinant, adjuvanted pending Source: New Immunization Record Pneumococcal conjugate PCV20 pending Source: New Immunization Record Payers Payer name Insurance type Covered green party ID Authoriza tion(s) [employer] [id number] [employer] [id number] [employer] [id number] [facility] Remicade Social History Type Description Quantity Date Captured Comments Alcohol Use Details Unknown Caffeine Use Details Unknown Tobacco Use Status Smoking Status undefined Non-Smoking Tobacco Use Details : No Details Available : No Details Available Sex Female Vital Signs Date / Time: Height Weight BMI Pulse Rate Blood Pressure Temperature Respiratory Rate Body Surface Area Head Circumference Head Circ. Percentile Wt./Matias. Percentile BMI percentile Pulse Ox Inhaled Ox 3:17 PM 63.00 in 68.946 kg (152.00 lbs) 26.9 2 kg/m eter (2) 3:22 PM 63.00 in 68.855 kg (151.80 lbs) 26.8 9 kg/m eter (2) 95 /min 150/76 mm[Hg] Chief Complaint And Reason For Visit From encounter dated '01/19/2024 15:45'. GI Symptoms or Concerns (chief complaint). Description: 63-year-old female presenting to clinic today for follow up regarding Crohn's ileitis.Most recent hospitalization in late November/early December for a flare with inpatient workup notable elevated CRP of 36 and evidence of new active inflammation on MR enterography. She was given infliximab 10 mg/kg dose in the hospital (12/04), which had been 4 weeks after her last dose with symptom improvement and decrease in CRP to 6. She had another dose at this interval on 01/01 with the next dose scheduled in a little over a week (01/29). She currently is on prednisone 15 mg but will start 10mg tomorrow. She notes that after both the November and December infusions she felt much better with less frequent stools but usually about 8-11 days prior to infusions is when symptoms start to worsen. She is due in 11 days. She is not sure if oral prednisone provides much benefit at all and wishes to get off of it. Her symptoms have gradually been worsening over the last few days with increasing diffuse/more focal RLQ pain, increasing stool frequency from 3- 4 loose to formed, to 8 loose to liquid stools with rectal urgency. No bleeding. Mild associated nausea, no vomiting. Using ondansetron as needed and dicyclomine 20mg four times daily. Trying to avoid NSAIDs but taking periodic aleve for the abdominal pain. No weight loss. Continues to have trouble with headaches and high blood pressure. Has not followed up with PCP about BP since being hospitalized in November. 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 CURRENT TREATMENT:-Infliximab 10 mg/kg every 6 weeks (increased from 5 mg/kg to 10 mg/kg on 08/14/23; then increased to every 6 weeks starting 09/24/23 from every 8 weeks after low trough levels in 08/14/2023). Increased to every 4 weeks late November 2023 after hospitalization - increased inflammation on MRE and CRP 36 down to 6 after steroids/dose of inpatient infliximab 10mg/kg.Prednisone taper now. IMAGING:CT abdomen and pelvis 12/10/2022 revealing thickened distalileum with mucosal hyperemia. Prior cholecystectomy with borderline dilated CBD.CT abdomen and pelvis 01/20/2023. Stable hyperemia of distal small bowel loops suggestive of chronic inflammation and colon filled with fluid, enlarged mesenteric lymph nodes, stable.CT scan 03/2023: no significant change in 3 segments of TI with wall thickening and mucosal hyperenhancement with associated luminal narrowing, no abscess or fistula.CT abd/pelvis (postop pain): wall thickening at the anastomosis and distended small bowel loop proximal to the anastomosis consistent with possible postoperative ileus, along with very small extraluminal air likely normal postoperative findings. She was treated with antibioticsMRE 09/29/23: post-surgical changes, no active inflammationMRE 12/03/23: There is short segmentof bowel wall thickening and enhancement in the distal ileum, new since prior exam. Trace fluid andmild prom lymph nodes. Evidence of constipation. Multiple mild prominent small bowel loops, suggestileus. ENDOSCOPIES:EGD 12/13/2022, endoscopically normal. Gastric biopsies, chronic gastritis, but negative H. pylori. Esophageal and duodenal biopsies were normal.Colonoscopy 01/28/2023: Narrowing, ulcerations, scarring in the terminal ileum. Biopsies revealed nonspecific mildly active chronic ileitis without specific features. Random right and left colon biopsies were normal. She had a 4 mm cecal SSA.Colonoscopy 06/17/23: normal colon and terminal ileum, patent ilecolonic anastomosis, internal hemorrhoids. Random colon biopsy normal. SURGICAL HISTORY:Ileocecectomy 03/2023: with surgical pathology active, chronic ileitis with colon margin with tubular adenoma. No evidence of malignancy. MEDI DAJA HISTORY:history of RCC s/p nephrectomy , CKD stage 3Medication trials:Cholestyramine cause severe constipation after only 2 days.Imodium also caused severe constipation.She takes nortriptyline for headaches. Health Maintenance:Hepatitis B surface Ag negative, not immune (02/2023). Hepatitis B vaccine ordered - to get with next infusion.Hepatitis A vaccine - undocumented. Flu vaccine - recommended annually. Up to date. COVID 19 vaccine - initial series 2020, up to date on boosters. Zoster vaccine - 07/2023. REports getting live vaccine. Instructed patient vaccine should be non-live (shingrix only). She will discuss with PCP or pharmacy. Pneumococcal vaccines - Recommended Prevnar 20. Ordered to be given at next infusion. Quantiferon - negative 02/2023. TPMT - 28.6Vitamin D - 22.5 04/2023.Taking vitamin D daily. Vitamin B12 - low 218 February 2023. On vitamin B12 injections. Repeat level normal 04/2023. Ordered repeat level with next infusion 01/29. Derm eval - Recommend annual skin cancer s creening with dermatology. Saw derm recently, no concerning lesions.NSAIDs - none.Tobacco use - none. Surveillance colonoscopy - due in 5 years (2027) due to history of adenomatous polyps. Reason For Referral Reason For Referral No Information Plan Of Treatment Date Type Action Status Goal Lifestyle education regardin g diet completed Referral Ordered: C Difficile Toxin Gene CAROLINE, Rfx To???Cdiff Toxins A+B,EIA Appointment date/timeframe: 09/30/2023 ordered Referral Ordered: MRI Enterography With Contrast Per Radiology Appointment date/timeframe: 09/30/2023 ordered Referral Ordered: follow-up visit with Pete Dennis MD 6 Months Appointment date/timeframe: 6 Months ordered Referral Ordered: Second Opinion Pathology Appointment date/timeframe: First Available ordered Referral Ordered: Administer Vitamin B-12 1,000mcg/mL every month, by intramuscular route Appointment date/timeframe: 03/20/2023 ordered Referral Ordered: follow-up visit with IBD MD in [place] [facility] 3 Months Appointment [...] Hortensia Buitrago BOOKED Appointment Hortensia Buitrago BOOKED Appointment Hortensia Buitrago BOOKED Appointment Hortensia Buitrago BOOKED Appointment Hortensia Buitrago BOOKED Appointment Hortensia Buitrago BOOKED Appointment Hortensia Buitrago BOOKED Appointment Hortensia Buitrago BOOKED Appointment Hortensia Buitrago BOOKED Appointment Hortensia Buitrago BOOKED Unknown Immunization Pneumococcal conjugate PCV20 ordered Unknown Immunization Hep B, recombinant, adjuvant ed ordered Unknown Immunization Hep B, recombinant, adjuvant ed ordered Unknown Immunization Pneumococcal conjugate PCV20 ordered History Of Present Illness Encounter Date Complaint History Of Prese nt Illness GI Symptoms or Concerns 63-year- old female presenting to clinic today for follow up regarding Crohn's ileitis.Most recent hospitalization in late November/early December for a flare with inpatient workup notable elevated CRP of 36 and evidence of new active inflammation on MR enterography. She was given infliximab 10 mg/kg dose in the hospital (12/04), which had been 4 weeks after her last dose with symptom improvement and decrease in CRP to 6. She had another dose at this interval on 01/01 with the next dose scheduled in a little over a week (01/29). She currently is on prednisone 15 mg but will start 10mg tomorrow. She notes that after both the November and December infusions she felt much better with less frequent stools but usually about 8-11 days prior to infusions is when symptoms start to worsen. She is due in 11 days. She is not sure if oral prednisone provides much benefit at all and wishes to get off of it. Her symptoms have gradually been worsening over the last few days with increasing diffuse/more focal RLQ pain, increasing stool frequency from 3-4 loose to formed, to 8 loose to liquid stools with rectal urgency. No bleeding. Mild associated nausea, no vomiting. Using ondansetron as needed and dicyclomine 20mg four times daily. Trying to avoid NSAIDs but taking periodic aleve for the abdominal pain. No weight loss. Continues to have trouble with headaches and high blood pressure. Has not followed up with PCP about BP since being hospitalized in November. 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 CURRENT TREATMENT:-Infliximab 10 mg/kg every 6 weeks (increased from 5 mg/kg to 10 mg/kg on 08/14/23; then increased to every 6 weeks starting 09/24/23 from every 8 weeks after low trough levels in 08/14/2023). Increased to every 4 weeks late November 2023 after hospitalization - increased inflammation on MRE and CRP 36 down to 6 after steroids/dose of inpatient infliximab 10mg/kg.Prednisone taper now. IMAGING:CT abdomen and pelvis 12/10/2022 revealing thickened distal ileum with mucosal hyperemia. Prior cholecystectomy with borderline dilated CBD.CT abdomen and pelvis 01/20/2023. Stable hyperemia of distal small bowel loops suggestive of chronic inflammation and colon filled with fluid, enlarged mesenteric lymph nodes, stable.CT scan 03/2023: no significant change in 3 segments of TI with wall thickening and mucosal hyperenhancement with associated luminal narrowing, no abscess or fistula.CT abd/pelvis (postop pain): wall thickening at the anastomosis and distended small bowel loop proximal to the anastomosis consistent with possible postoperative ileus, along with very small extraluminal air likely normal postoperative findings. She was treated with antibioticsMRE 09/29/23: post-surgical changes, no active inflammationMRE 12/03/23: There is short segment of bowel wall thickening and enhancement in the distal ileum, new since prior exam. Trace fluid and mild prom lymph nodes. Evidence of constipation. Multiple mild prominent small bowel loops, suggest ileus. ENDOSCOPIES:EGD 12/13/2022, endoscopically normal. Gastric biopsies, chronic gastritis, but negative H. pylori. Esophageal and duodenal biopsies were normal.Colonoscopy 01/28/2023: Narrowing, ulcerations, scarring in the terminal ileum. Biopsies revealed nonspecific mildly active chronic ileitis without specific features. Random right and left colon biopsies were normal. She had a 4 mm cecal SSA.Colonoscopy 06/17/23: normal colon and terminal ileum, patent ilecolonic anastomosis, internal hemorrhoids. Random colon biopsy normal. SURGICAL HISTORY:Ileocecectomy 03/2023: with surgical pathology active, chronic ileitis with colon margin with tubular adenoma. No evidence of malignancy. MEDICAL HISTORY:history of RCC s/p nephrectomy , CKD stage 3Medication trials:Cholestyramine cause severe constipation after only 2 days.Imodium also caused severe constipation.She takes nortriptyline for headaches. Health Maintenance:Hepatitis B surface Ag negative, not immune (02/2023). Hepatitis B vaccine ordered - to get with next infusion.Hepatitis A vaccine - undocumented. Flu vaccine - recommended annually. Up to date. COVID 19 vaccine - initial series 2020, up to date on boosters. Zoster vaccine - 07/2023. REports getting live vaccine. Instructed patient vaccine should be non-live (shingrix only). She will discuss with PCP or pharmacy. Pneumococcal vaccines - Recommended Prevnar 20. Ordered to be given at next infusion. Quantiferon - negative 02/2023. TPMT - 28.6Vitamin D - 22.5 04/2023. Taking vitamin D daily. Vitamin B12 - low 218 February 2023. On vitamin B12 injections. Repeat level normal 04/2023. Ordered repeat level with next infusion 01/29. Derm eval - Recommend annual skin cancer screening with dermatology. Saw derm recently, no concerning lesions.NSAIDs - none.Tobacco use - none. Surveillance colonoscopy - due in 5 years (2027) due to history of adenomatous polyps. 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 CURRENT TREATMENT:-Infliximab 10 mg/kg every 6 weeks (increased from 5 mg/kg to 10 mg/kg on 08/14/23; then increased to every 6 weeks starting 09/24/23 from every 8 weeks after low trough levels in 08/14/2023). PA in place to increase to every 4 weeks, given recent flare with hospitalization, increased inflammation on MRE and CRP 36 down to 6 after steroidsPrednisone taperIMAGING:CT abdomen and pelvis 12/10/2022 revealing thickened distal ileum with mucosal hyperemia. Prior cholecystectomy with borderline dilated CBD.CT abdomen and pelvis 01/20/2023. Stable hyperemia of distal small bowel loops suggestive of chronic inflammation and colon filled with fluid, enlarged mesenteric lymph nodes, stable.CT scan 03/2023: no significant change in 3 segments of TI with wall thickening and mucosal hyperenhancement with associated luminal narrowing, no abscess or fistula.CT abd/pelvis (postop pain): wall thickening at the anastomosis and distended small bowel loop proximal to the anastomosis consistent with possible postoperative ileus, along with very small extraluminal air likely normal postoperative findings. She was treated with antibioticsMRE 09/29/23: post-surgical changes, no active inflammationMRE 12/03/23: There is short segment of bowel wall thickening and enhancement in the distal ileum, new since prior exam. Trace fluid and mild prom lymph nodes. Evidence of constipation. Multiple mild prominent small bowel loops, suggest ileus. ENDOSCOPIES:EGD 12/13/2022, endoscopically normal. Gastric biopsies, chronic gastritis, but negative H. pylori. Esophageal and duodenal biopsies were normal.Colonoscopy 01/28/2023: Narrowing, ulcerations, scarring in the terminal ileum. Biopsies revealed nonspecific mildly active chronic ileitis without specific features. Random right and left colon biopsies were normal. She had a 4 mm cecal SSA.Colonoscopy 06/17/23: normal colon and terminal ileum, patent ilecolonic anastomosis, internal hemorrhoids. Random colon biopsy normal. SURGICAL HISTORY:Ileocecectomy 03/2023: with surgical pathology active, chronic ileitis with colon margin with tubular adenoma. No evidence of malignancy. MEDICAL HISTORY:history of RCC s/p nephrectomy , CKD stage 3Medication trials:Cholestyramine cause severe constipation after only 2 days.Imodium also caused severe constipation.She takes nortriptyline for headaches. Health Maintenance:Hepatitis B surface Ag negative, not immune (02/2023). Hepatitis B vaccine recommended. Hepatitis A vaccine - undocumented. Flu vaccine - recommended annually. COVID 19 vaccine - initial series 2020, no boosters. Recommended updated booster. Zoster vaccine - undocumented. Recommended Shingrix through PCP office. Pneumococcal vaccines - Recommended Prevnar 20. Quantiferon - negative 02/2023. TPMT - 28.6Vitamin D - 22.5 04/2023. Taking vitamin D daily. Vitamin B12 - low 218 February 2023. On vitamin B12 injections. Repeat level normal 04/2023. Derm eval - Recommend annual skin cancer screening with dermatology. She will discuss derm with PCP. NSAIDs - none.Tobacco use - none. Surveillance colonoscopy - due in 5 years (2027) due to history of adenomatous polyps. GI Symptoms or Concerns Hortensia is a pleasant 63-year-old female, who is managed by Dr. Juan and Alisa Norman in our [place] [facility]. She presents today for an urgent followup after recent hospitalization. I did review the outside records in the [place] EMR. It does appear that she had a flare evidenced by CRP of 36, on steroids went down to 6, evidence of new active inflammation on MR enterography, and she was given infliximab 10 mg/kg dose in the hospital, which had been 4 weeks after her last dose and she is now improved. She still has some abdominal cramps, but the diarrhea has significantly improved and she has some formed stool. Thus, the Remicade every 4 weeks worked well for her. She is still on prednisone taper. She is about 2-3 weeks in. Additional Narrative IBD History :Crohns ileitis, fibrostenotic phenotype diagnosed January 2023, s/p ileocecal resection March 2023. CURRENT TREATMENT:-Infliximab 10 mg/kg every 6 weeks (increased from 5 mg/kg to 10 mg/kg on 08/14/23; then increased to every 6 weeks starting 09/24/23 from every 8 weeks after low trough levels in 08/14/2023).IMAGING:CT abdomen and pelvis 12/10/2022 revealing thickened distal ileum with mucosal hyperemia. Prior cholecystectomy with borderline dilated CBD.CT abdomen and pelvis 01/20/2023. Stable hyperemia of distal small bowel loops suggestive of chronic inflammation and colon filled with fluid, enlarged mesenteric lymph nodes, stable.CT scan 03/2023: no significant change in 3 segments of TI with wall thickening and mucosal hyperenhancement with associated luminal narrowing, no abscess or fistula.CT abd/pelvis (postop pain): wall thickening at the anastomosis and distended small bowel loop proximal to the anastomosis consistent with possible postoperative ileus, along with very small extraluminal air likely normal postoperative findings. She was treated with antibioticsMRE 09/29/23: post-surgical changes, no active inflammationENDOSCOPIES:EGD 12/13/2022, endoscopically normal. Gastric biopsies, chronic gastritis, but negative H. pylori. Esophageal and duodenal biopsies were normal.Colonoscopy 01/28/2023: Narrowing, ulcerations, scarring in the terminal ileum. Biopsies revealed nonspecific mildly active chronic ileitis without specific features. Random right and left colon biopsies were normal. She had a 4 mm cecal SSA.Colonoscopy 06/17/23: normal colon and terminal ileum, patent ilecolonic anastomosis, internal hemorrhoids. Random colon biopsy normal. SURGICAL HISTORY:Ileocecectomy 03/2023: with surgical pathology active, chronic ileitis with colon margin with tubular adenoma. No evidence of malignancy. MEDICAL HISTORY:history of RCC s/p nephrectomy , CKD stage 3Medication trials:Cholestyramine cause severe constipation after only 2 days.Imodium also caused severe constipation.She takes nortriptyline for headaches. Health Maintenance:Hepatitis B surface Ag negative, not immune (02/2023). Hepatitis B vaccine recommended. Hepatitis A vaccine - undocumented. Flu vaccine - recommended annually. COVID 19 vaccine - initial series 2020, no boosters. Recommended updated booster. Zoster vaccine - undocumented. Recommended Shingrix through PCP office. Pneumococcal vaccines - Recommended Prevnar 20. Quantiferon - negative 02/2023. TPMT - 28.6Vitamin D - 22.5 04/2023. Taking vitamin D daily. Vitamin B12 - low 218 February 2023. On vitamin B12 injections. Repeat level normal 04/2023. Derm eval - Recommend annual skin cancer screening with dermatology. She will discuss derm with PCP. NSAIDs - none.Tobacco use - none. Surveillance colonoscopy - due in 5 years (2027) due to history of adenomatous polyps. GI Symptoms or Concerns Additional Narrative Hortensia is a 63-year-old female with history of RCC s/p nephrectomy , CKD stage 3 presenting for virtual visit follow up today for Crohn's ileitis. 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 She was admitted to the hospital in February but did not respond to IV steroids and Remicade was started inpatient. Due to ongoing symptoms and active disease on CT scan with TI stricture she underwent laparoscopic ileocecal resection in March with Dr. Iverson. Pathology was consistent with Crohn's disease. She resumed Remicade 5 mg/kg every 8 weeks following surgery and remains on this treatment today. During this time, she did lose approximately 30 lbs. Since her surgery, she has had ongoing frequent stools. She was hospitalized 1 month ago in June for increased abdominal pain and diarrhea. CT showed colitis in the ascending and sigmoid colon. Enteric stool panel and C diff PCR negative and fecal calprotectin was normal at 30. Due to non-response to IV steroids, she had a colonoscopy on 06/20 that shows a normal colon and TI, patent anastomosis, and internal hemorrhoids. Random colon biopsy was normal. She was discharged on oral prednisone taper. CBC, BMP were normal other than elevated creatinine 1 (this is her baseline s/p nephrectomy). Today, she reports no significant improvement in her stooling. She is having 5-10 initially formed but becoming liquid throughout the day. She has less severe RLQ abdominal pain although severity can wax and wane. She denies rectal bleeding, vomiting, or ongoing weight loss. She notes that if she takes Imodium, she will get constipated and not have a BM for 3 days. She mentions some issues with dizziness. She is frustrated with ongoing diarrhea. More recent labs reviewed done 07/19 due to dizziness symptoms showed normal CBC and iron studies. She had anemia with a HGB 10.7 in April. B12 level was normal at that time. She had Venofer in May but on 2nd infusion developed an allergic reaction of subjective tongue swelling, throat tightness, and drop in O2 saturation. She was sent to the hospital for evaluation. She has not received any further IV iron infusions. Anemia has resolved. She developed headaches with Remicade infusions and this is managed well with Tylenol pre-meds. 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 ImagingCT abdomen and pelvis 12/10/2022 revealing thickened distal ileum with mucosal hyperemia. Prior cholecystectomy with borderline dilated CBD.CT abdomen and pelvis 01/20/2023. Stable hyperemia of distal small bowel loops suggestive of chronic inflammation and colon filled with fluid, enlarged mesenteric lymph nodes, stable.CT scan 03/2023: no significant change in 3 segments of TI with wall thickening and mucosal hyperenhancement with associated luminal narrowing, no abscess or fistula.CT abd/pelvis (postop pain): wall thickening at the anastomosis and distended small bowel loop proximal to the anastomosis consistent with possible postoperative ileus, along with very small extraluminal air likely normal postoperative findings. She was treated with antibioticsEndoscopy:EGD 12/13/2022, endoscopically normal. Gastric biopsies, chronic gastritis, but negative H. pylori. Esophageal and duodenal biopsies were normal.Colonoscopy 01/28/2023: Narrowing, ulcerations, scarring in the terminal ileum. Biopsies revealed nonspecific mildly active chronic ileitis without specific features. Random right and left colon biopsies were normal. She had a 4 mm cecal SSA.Colonoscopy 06/17/23: normal colon and terminal ileum, patent ilecolonic anastomosis, internal hemorrhoids. Random colon biopsy normal. Stool studies including C. diff were negative in the past.Surgical pathology 03/2023: active, chronic ileitis with colon margin with tubular adenoma. No evidence of malignancy. Health Maintenance:Hepatitis B surface Ag negative, not immune (02/2023). Hepatitis B vaccine recommended. Hepatitis A vaccine - undocumented. Flu vaccine - recommended annually. COVID 19 vaccine - initial series 2020, no boosters. Recommended updated booster. Zoster vaccine - undocumented. Recommended Shingrix through PCP office. Pneumococcal vaccines - Recommended Prevnar 20. Quantiferon - negative 02/2023. TPMT - 28.6Vitamin D - 22.5 04/2023. Taking vitamin D daily. Vitamin B12 - low 218 February 2023. On vitamin B12 injections. Repeat level normal 04/2023. Derm eval - Recommend annual skin cancer screening with dermatology. She will discuss derm with PCP. NSAIDs - none.Tobacco use - none. Surveillance colonoscopy - due in 5 years due to history of adenomatous polyps. GI Symptoms or Concerns Additional Narrative Hortensia is a 63-year-old female [...] scheduled for her 2nd induction infusion at [place] tomorrow. Additionally, she is on a prednisone [...] 13 she had an upper endoscopy through [facility] that was endoscopically normal. mid and distal [...] received 36 pages of outside records from [facility] which I reviewed in preparation for this visit. These included several outpatient visits with Andrew Israel as well as an ER visit to [facility] on 12/10/22. Labs 12/10 revaled mild anemia [...] the CBD. EGD was subsequently completed at [place] on 12/13/22 which revealed chronic active gastritis [...] reports that she went on vacation to [place] on November 28 developed a stabbing epigastric [...] She does note a prior colonoscopy with [facility] about 12 years ago. She notes [...] Information Instructions Date Instruction Additional Infor shayna 1. Continue predniso ne taper by 5mg every 7 days. 2. Plan to check Remicade trough level/antibodies at next infusion in 11 days. 3. Check C diff now. We can fax orders to PCP. 4. Will check vitamin B12 level at infusion and inflammatory marker. Continue injections monthly for now. 5. Prevnar 20 vaccine and hepatitis B vaccine ordered. 6. Discuss timing of Shingrix (non-live shingles vaccine) with your pharmacist or PCP. 7. Avoid NSAID medicatoins. 8. Continue dicyclomine 20mg up to 4 times daily as needed for pain. 9. Continue daily vitamin D. 10. If pain severe and diarrhea continues to worsen, recommend going to the hospital for IV steroids. 11. Tentative follow up with Dr. Juan in 2 months. Related to Crohn's disease of small intestine without complications - Await approval for Remicade 10mg/kg every 4 weeks, from EMR appears to have been requested while the patient was in the hospital.- Continue prednisone taper- Follow-up in 4-6 weeks Related to Crohn's disease of small intestine without complication Infliximab IV per standard jeyson col. Related to Crohn's disease of small intestine without complications Infliximab IV per ac celerated protocol 1. Continue Remicade 5mg/kg every 8 weeks with Tylenol pre-meds.2. Start cholestyramine 1/2 packet (2grams) daily to help with diarrhea. Make sure to take other medications 1 hour before or 4-6 hours after cholestyramine. 3. Can try adding Metamucil 1 tbsp a day to help with stool consistency. 4. Discuss vaccines with PCP office - Prevnar 20, annaul flu shot, COVID-19 booster, hepatitis B vaccine, and Shingrix shingles vaccine (non-live). 5. Continue vitamin D daily. 6. Avoid NSAIDs. 7. Establish care with dermatology for annual skin cancer screening exams. Can also discuss hair thinning/loss with them. This is likely related to previously active Crohn's and will improve over the course of 4-6 months. 8. Follow up visit to establish care with IBD MD Infante in 3 months. Related to Crohn's disease of small intestine without complications Question NSAID or Cr ohns. [facility] 03/21/2023 RS [id number] Related to Terminal ileitis without complication Pathology review Related to Term inal ileitis without complication B12 1000 mcg IM week ly x 4 then monthly indefinitely Related to B12 deficiency - Labs tomorrow incl uding IBD profile- Continue Remicade induction- Follow up with colorectal surgeon Dr. Madison Iverson - Follow up [facility] clinic in [facility] [place]- Colonoscopy in ~ 5 months- Taper prednisone [...] Crohn's disease of small intestine without complications Infliximab IV per ac celerated protocol I recommended going to the hospital for admission for IV steroids given her non-response to prednisone and degree of pain/diarrhea, weight loss. She may require colorectal surgery consult and potentially initiation of infliximab in the hospital. I [place] working today to provide update on patient pending presentation. I also updated Dr. Vernon who is covering [facility] this week. Related to Terminal ileitis without complication Colon Cancer Prevention Related to Colorectal polyp detected on colonoscopy Colon Polyps Related to Color ectal polyp detected on colonoscopy Hemorrhoids Related to Color ectal polyp detected on colonoscopy High Fiber Diet Related to Color ectal polyp detected on colonoscopy Assessments Type Assessment Date assessment Crohn's disease of small intesti ne without complications impression 63-year-old female w ith a history of Crohn's ileitis, fibrostenotic phenotype, s/p ileocecal resection March 2023 currently on Remicade monotherapy for maintenance since August 2023. Her dose was recently changed from 10 milligrams/kilogram every 6 weeks to every 4 weeks after a hospitalization in November for a flare. During that hospitalization MR enterography showed active inflammation in the TI and CRP was elevated at 36. She received a dose of infliximab in the hospital at a 4 week interval for the first time on December 04. She had a 2nd dose January 01, and her 3rd dose at this interval will be coming up next week. She has a clinical response to Remicade but unfortunately, continues to struggle with symptoms leading up to her infusion despite 2 doses at every 4 weeks at this point. Presently, she is continuing on a prednisone taper from her hospitalization and does not feel that it changes her symptoms at all. The only thing that helps is Remicade. She mentions that IV steroids helped when she was hospitalized. She is having frequent loose to liquid bowel movements and abdominal pain presently (11 days from her next infusion). She does not look acutely ill on exam today. Abdominal exam is similar to when she was hospitalized at which time she reported feeling good . We discussed that she is at risk for C diff infection and although she has been tested on multiple occasions for this, would recommend checking again at this time as we may be considering changing treatments. At this point, I recommended that we check a trough level at her next infusion. If this is low we will need to switch medications. We reviewed potential options including Stelara, Skyrizi, Entyvio. Onset of action is slower with Entyvio which would likely require ongoing prednisone use (which as mentioned does not help) and may increase possibility for rehospitalization. Recent head to head trial data shows Skyrizi superior to Stelara therefore, I recommended switching to Skyrizi pending upcoming testing. I suspect there may be a functional component to patient's diarrhea/abdominal pain but difficult to know at this time. We discussed that if pain worsens that she should present to the ER for IV steroids and more urgent abdominal imaging, etc. Increasing the prednisone has not helped in the past. Patient Care Teams Name Effective Dates (start - stop) Status Members No Information
[2024-01-20 22:45] LABS: Vitamin B12* 562 pg/mL (243-894)
[2024-01-20 22:51] LABS: C.Difficile Negative (Negative); CDIFFEPI 027 PRESUMPTIVE NEGATIVE (Negative)
[2024-01-20 23:03] LABS: C Reactive Protein* < 0.5 mg/dL (0.5-1.0)
[2024-01-25 12:07] LABS: Infliximab Antibodies <20 ng/mL (<=19)
== END 2024-01-20 21:10 | disposition home or self-care (01) ==
LOC: NPINS 21:09
PROVIDERS: PCP Physician Assistant Medical
DX: K50.00 Crohn's disease of small intestine without complications (principal)
CPT/HCPCS: 80230; 82607; 86140; 87493

== ENCOUNTER 2024-05-20 09:56 | Outpatient (CLI) | payer BC, SELFPAY ==
--- OUTSIDE RECORDS SUMMARY | 2024-05-20 10:08 | XMS_ITS | Encounter Summary ---
Author Organization [facility] Address [address] [place] [id number] Care Team Providers Care Ultrasound Manager Name Role Phone Andrew Israel PA-C Primary Care Provider [phone] Reason for Visit * Reason Comments Abdominal Pain * Auth/Cert Specialty Diagnoses / Procedures Referred By Esa carvajal Referred To Contact EMERGENCY MEDICINE Diagnoses Exacerbation of Crohn's disease with complication (H) Emergency Dept [address] [place] [address] Referral ID Status Reason Start Date Expiration Date Visits Re quested Visits Authorized [id number] 1 1 Encounter Details Date Type Department Care Team (Late st Contact Info) Description 03/01/2024 3:35 PM CDT - 03/03/2024 5:21 PM CDT Hospital Encounter [place] [address] Medical Surgical [address] [place] [address] Philipp Schneider DO [facility] [place] [address] [address] [address] [place] [address] Eusebio Zhang MD [address] [place] [address] Boom Shaikh MD [address] [place] [address] Exacerbation of Crohn's disease with complication (H) Discharge Disposition: Home or Self [...] Sign Reading Time Taken Comments Blood Pressure 131/75 03/03/2024 3:05 PM CDT Pulse 78 03/03/2024 3:05 PM CDT Temperature 36.7 ??C (98 ??F) 03/03/2024 3:05 PM CDT Respiratory Rate 12 03/03/2024 3:05 PM CDT Oxygen Saturation 93% 03/03/2024 3:05 PM CDT Inhaled Oxygen Concentration - - Weight 69.1 kg (152 lb 5.4 oz) 03/01/2024 2:16 P M CDT Height 160 cm (5' 3) 03/01/2024 2:16 PM CDT Body Mass Index 26.99 03/01/2024 2:16 PM CDT documented in this encounter Discharge Summaries * Boom Shaikh MD - 03/03/2024 3:23 PM CDT [facility] Hospitalist Discharge Summary Date of Admission: 03/01/2024 Date of Discharge: 03/03/2024 Discharging Provider: Boom Shaikh MD Discharge Service: Hospitalist Service Discharge Diagnoses Acute abdominal pain of unclear etiology. History of Crohn's disease, on Remicade. No evidence of flareup. GERD: Insomnia: Overweight: Clinically Significant Risk Factors # Overweight: Estimated body mass index is 26.99 kg/m?? as calculated from the following: Height as of this encounter: 1.6 m (5' 3). Weight as of this encounter: 69.1 kg (152 lb 5.4 oz). Follow-ups Needed After Discharge Additional follow-up instructions/to-do's for PCP NO : Unresulted Labs Ordered in the Past 30 Days of this Admission No orders found from 01/31/2024 to 03/02/2024. These results will be followed up by pcp Discharge Disposition Discharged to home Condition at discharge: Stable Hospital Course Hortensia Buitrago is a 63-year-old female with a past medical history significant for Crohn's disease, GERD, and insomnia. She follows with [facility] and has been on Remicade since August 2023. She presents with waxing and waning abdominal pain over the last 4 to 5 days. She attempted to contact her GI clinic but was unsuccessful. Due to increasing stooling, poor oral intake, and abdominal pain, she presented to the emergency room for further evaluation. 1. History of Crohn disease. Crohn's flareup was initially suspected however clinical findings and laboratory workup to rule out any flareup of Crohn disease or any other acute intra-abdominal process. The patient has been seen and followed by gastroenterology, she is a established patient of [facility] and well-known by them, they have recommended to send her home and follow-up in office. - Patient has been on Remicade since August 2023, with the last infusion 3 days ago. -On admission symptoms her symptoms were lower abdominal pain, cramping, non- bloody diarrhea, and poor oral intake. During the hospital stay the patient did not have any diarrhea, on the contrary shewas constipated. Two consecutive CRP in the labs of 48 hours reveal undetectable levels. 2. GERD 3. Insomnia: 4. Overweight: - BMI: 26.99 kg/m?? (Height: 1.6 m, Weight: 69.1 kg). Plan: 1 Acute Crohn's Flare: - Admit to inpatient unit for IV hydration and close monitoring. - Administer IV Solu-Medrol 40 mg every 8 hours per GI recommendation. - Provide antiemetics and pain control as needed. - Consult with GI for further management and recommendations. 2. GERD: - Resume PPI therapy. 3. Insomnia: - Resume trazodone for sleep. 4. Overweight: - Monitor weight and BMI. - Discuss weight management strategies and dietary recommendations with the patient. Follow-Up: - Monitor vital signs, fluid intake/output, and response to IV steroids. - CRP < 3.0 , GI to adjust treatment plan accordingly. - Follow up with GI consult recommendations. Diet: Combination Diet Regular Diet Adult DVT Prophylaxis: Pneumatic Compression Devices Uribe Catheter: Not present Lines: None Cardiac Monitoring: None Code Status: Full Code Consultations This Hospital Stay GASTROENTEROLOGY IP CONSULT CARE MANAGEMENT / SOCIAL WORK IP CONSULT Code Status Full Code Time Spent on this Encounter I, Boom Shaikh MD, personally saw the patient today and spent greater than 30 minutes discharging this patient. Boom Shaikh MD [place] [address] MEDICAL SURGICAL [address] [facility] [id number] Physical Exam Vital Signs: Temp: 98 ??F (36.7 ??C) Temp src: Oral BP: 131/75 Pulse: 78 Resp: 12 SpO2: 93 % O2 Device: None (Room air) Weight: 152 lbs 5.41 oz Constitutional: awake, alert, cooperative, no apparent distress, and appears stated age Respiratory: No increased work of breathing, good air exchange, clear to auscultation bilaterally, no crackles or wheezing Cardiovascular: Normal apical impulse, regular rate and rhythm, normal S1 and S2, no S3 or S4, and no murmur noted Primary Care Physician Andrew Israel Discharge Orders No discharge procedures on file. Significant Results and Procedures Results for orders placed or performed during the hospital encounter of 03/01/24 CT Abdomen Pelvis w Contrast Narrative EXAM: CT ABDOMEN PELVIS W CONTRAST LOCATION: [facility] DATE: 03/01/2024 INDICATION: RLQ and right sided abd pain; Hx Crohn's; likely flare COMPARISON: CT 11/29/2023, MRI 12/03/2023 TECHNIQUE: CT scan of the abdomen and pelvis was performed following injection of IV contrast. Multiplanar reformats were obtained. Dose reduction techniques were used. CONTRAST: 76mL Isovue 370 FINDINGS: LOWER CHEST: Unremarkable. HEPATOBILIARY: Cholecystectomy. Mild extrahepatic biliary ductal dilation is stable from prior exam, likely related to reservoir effect. PANCREAS: Normal. SPLEEN: Normal. ADRENAL GLANDS: Normal. KIDNEYS/BLADDER: Prior right nephrectomy. No left hydronephrosis. Urinary bladder is unremarkable. BOWEL: Prior ileocecectomy. The transverse colon is relatively featureless with subtle wall thickening, mucosal hyperenhancement and surrounding fat stranding, new/increased in comparison to prior exam. No evidence of bowel obstruction, gross perforation or evidence of penetrating disease. LYMPH NODES: No suspicious lymphadenopathy. VASCULATURE: Scattered calcified atherosclerosis. PELVIC ORGANS: Hysterectomy. MUSCULOSKELETAL: No acute bony abnormality. Impression IMPRESSION: 1. Likely transverse colitis, new/worsened since prior exam, most likely related to known inflammatory bowel disease. 2. No evidence of bowel obstruction or penetrating disease. Discharge Medications Current Discharge Medication List CONTINUE these medications which have NOT CHANGED Details acetaminophen (TYLENOL) 500 MG tablet Take 1-2 tablets (500-1,000 mg) by mouth every 6 hours as needed for mild pain Associated Diagnoses: RLQ abdominal pain albuterol (PROAIR HFA/PROVENTIL HFA/VENTOLIN HFA) 108 (90 Base) MCG/ACT inhaler Inhale 2 puffs intothe lungs every 6 hours as needed for shortness of breath, wheezing or cough cyanocobalamin (CYANOCOBALAMIN) 1000 MCG/ML injection Inject 1,000 [...] IV) Inject 10 mg/kg into the vein every 4 weeks l-lysine HCl 500 MG TABS tablet Take 1,000 mg by mouth daily medical cannabis (Patient's own supply) Take 1 [...] Take 25 mg by mouth At Bedtime simethicone (MYLICON) 80 MG chewable tablet Take [...] tablet Take 25 mcg by mouth daily zolpidem (AMBIEN) 5 MG tablet Take 5 mg by mouth nightly as needed ondansetron (ZOFRAN ODT) 4 MG ODT tab Take 1 tablet (4 mg) by mouth every 8 hours as needed for nausea Qty: 20 tablet, Refills: 0 Associated Diagnoses: Crohn's disease with complication, unspecified gastrointestinal tract location (H) STOP taking these medications bisacodyl (DULCOLAX) 10 MG suppository Comments: Reason for Stopping: hydrOXYzine HCl (ATARAX) 25 MG tablet Comments: Reason for Stopping: Allergies Allergies Allergen Reactions Latex Hives Oxycodone Anaphylaxis, Hives and Swelling Throat swelling, per pt Pt tolerates Belcher/Vicodin (06/22/2023) Penicillin G Anaphylaxis Sumatriptan Palpitations Aspirin [...] for shortness of breath, wheezing or cough cyanocobalamin (CYANOCOBALAMIN) 1000 MCG/ML injection Inject 1,000 mcg as directed every 30 days dicyclomine (BENTYL) 20 MG tabletIndications:Intract able abdominal pain Take 1 tablet (20 mg) by mouth 4 times daily (before meals and nightly) 30 tablet 09/25/2023 esomeprazole (NEXIUM) [address] capsule Take 40 mg by mouth 2 times daily (before meals) Take 30-60 minutes before eating. famotidine (PEPCID) 40 MG tablet Take 40 mg by mouth At Bedtime inFLIXimab (REMICADE IV)Indications:Gastroente rologist has changed the frequency to every 6 weeks Inject 10 mg/kg into the vein every 4 weeks l-lysine HCl 500 MG TABS tablet Take 1,000 mg by mouth daily medical cannabis (Patient's own supply) Take 1 [...] as needed for nausea 20 tablet 12/09/2023 simethicone (MYLICON) 80 MG chewable tabletIndications:Intract able abdominal pain Take 1 tablet (80 mg) by mouth every 6 hours as needed for cramping 30 tablet 09/25/2023 traZODone (DESYREL) 100 MG tablet Take 200 mg by mouth At Bedtime vitamin C (ASCORBIC ACID) 1000 MG TABS Take 1,000 mg by mouth daily Vitamin D3 (CHOLECALCIFEROL) 25 mcg (1000 units) tablet Take 25 mcg by mouth daily zolpidem (AMBIEN) 5 MG tablet Take 5 mg by mouth nightly as needed 03/01/2024 documented as of this encounter Progress Notes * Betty Olivares APRN AIR BRAKE OPERATOR - 03/03/2024 12:55 PM CDT GASTROENTEROLOGY PROGRESS NOTE CC: Abdominal pain and diarrhea SUBJECTIVE: Reports severe abdominal pain after spicy food. No BM since admission. Decline Maalox. OBJECTIVE: General Appearance: BP 137/78 (BP Location: Right arm) Pulse 78 Temp 98 ??F (36.7 ??C) (Oral) Resp 20 Ht 1.6 m (5' 3) Wt 69.1 kg (152 lb 5.4 oz) SpO2 95% BMI 26.99 kg/m?? Temp (24hrs), Av.1 ??F (36.7 ??C), Min:98 ??F (36.7 ??C), Max:98.4 ??F (36.9 ??C) Patient Vitals for the past 72 hrs: Weight 03/01/24 1416 69.1 kg (152 lb 5.4 oz) No intake or output data in the 24 hours ending 03/03/24 1255 PHYSICAL EXAM General: alert, oriented, NAD SKIN: no suspicious lesions, rashes, jaundice, or spider angiomas EYES: No scleral icterus RESPIRATORY: Non labored breathing GASTROINTESTINAL: Active bowel sounds, severe tenderness on palpation. NEURO:Grossly WNL. Additional Comments: ROS, FH, SH: See initial GI consult for details. Recent Labs Lab Test 03/03/24 0657 03/02/24 0621 03/01/24 1424 WBC 10.4 8.2 8.0 HGB 12.5 12.8 13.3 MCV 89 88 91 PLT 277 243 273 Recent Labs Lab Test 03/03/24 0657 03/02/24 0621 03/01/24 1424 POTASSIUM 4.5 4.7 4.3 CHLORIDE 104 105 105 CO2 25 22 22 BUN 12.2 7.4* 9.0 ANIONGAP 11 11 14 Recent Labs Lab Test 03/02/24 0621 03/01/24 1502 12/06/23 0140 11/29/23 1528 11/29/23 1526 09/23/23 0816 06/16/23 1750 06/16/23 1737 03/31/23 1717 03/31/23 1608 ALBUMIN 4.0 -- -- 4.7 -- 3.9 < > 4.7 -- 3.9 BILITOTAL 0.6 -- -- 0.3 -- 0.6 < > 0.4 -- 0.3 ALT 19 -- -- 13 -- 11 < > 15 -- 28 AST 19 -- -- 17 -- 16 < > 24 -- 29 PROTEIN -- Negative Negative -- Negative -- < > -- < > -- LIPASE -- -- -- -- -- -- -- 27 -- 56 < > = values in this interval not displayed. Imaging and procedures: I have reviewed the patient's new clinical lab results Problem list pertaining to GI: Abdominal pain Diarrhea Assessment: This is a 63 y-o female with a history of fibrostenotic crohn's. S/P resection, who is currently on Remicade 10 mg/kg every 4 weeks. She was admitted for worsening abdominal pain and diarrhea since last week. Her last infusion was on Friday. CT showed transverse colitis, new/worsened since prior exam, most likely related to known inflammatory bowel disease. CRP within normal limits. She was started on IV steroids. She is feeling better yesterday. She ate spicy food so she could have bowel movements, which worsened her pain. Plan: - Oral steroids taper after discharge - Pepcid 20 mg and simethicone to help with abdominal discomfort form spicy food - Follow-up with IBD clinic as scheduled in March - Contact [facility] with any new or worsening symptoms I will discuss with Dr. Bah Time spent: 20 minutes, greater than 50% of the visit was spent in counseling/coordination of care. Betty Olivares CNP [facility] ([facility]) [phone] * Boom Shaikh MD - 03/02/2024 11:14 AM CDT [facility] Medicine Progress Note - Hospitalist Service Date of Admission: 03/01/2024 Assessment & Plan Hortensia Buitrago is a 63-year-old female with a past medical history significant for Crohn's disease, GERD, and insomnia. She follows with [facility] and has been on Remicade since August 2023. She presents with waxing and waning abdominal pain over the last 4 to 5 days. She attempted to contact her GI clinic but was unsuccessful. Due to increasing stooling, poor oral intake, and abdominal pain, she presented to the emergency room for further evaluation. 1. Acute Crohn's Flare: - Patient has been on Remicade since August 2023, with the last infusion 3 days ago. - Symptoms: Lower abdominal pain, cramping, non-bloody diarrhea, and poor oral intake. 2. GERD: 3. Insomnia: 4. Overweight: - BMI: 26.99 kg/m?? (Height: 1.6 m, Weight: 69.1 kg). Plan: 1 Acute Crohn's Flare: - Admit to inpatient unit for IV hydration and close monitoring. - Administer IV Solu-Medrol 40 mg every 8 hours per GI recommendation. - Provide antiemetics and pain control as needed. - Consult with GI for further management and recommendations. 2. GERD: - Resume PPI therapy. 3. Insomnia: - Resume trazodone for sleep. 4. Overweight: - Monitor weight and BMI. - Discuss weight management strategies and dietary recommendations with the patient. Follow-Up: - Monitor vital signs, fluid intake/output, and response to IV steroids. - CRP < 3.0 , GI to adjust treatment plan accordingly. - Follow up with GI consult recommendations. Diet: Combination Diet Regular Diet Adult DVT Prophylaxis: Pneumatic Compression Devices Uribe Catheter: Not present Lines: None Cardiac Monitoring: None Code Status: Full Code Clinically Significant Risk Factors Present on Admission # Overweight: Estimated body mass index is 26.99 kg/m?? as calculated from the following: Height as of this encounter: 1.6 m (5' 3). Weight as of this encounter: 69.1 kg (152 lb 5.4 oz). Disposition Plan Medically Ready for Discharge: Anticipated in 2-4 Days Boom Shaikh MD Hospitalist Service [facility] Securely message with [employer] (more info) Text page via [facility] Paging/Directory Interval History She feels better today, no nausea, vomiting, diarrhea. Only 1 bowel movement since admission Abdominal pain is still present recurring, improved with Tylenol and Dilaudid.. No other concerns. Physical Exam Vital Signs: Temp: 98 ??F (36.7 ??C) Temp src: Oral BP: 117/80 Pulse: 73 Resp: 20 SpO2: 97 % O2 Device: None (Room air) Weight: 152 lbs 5.41 oz Constitutional: awake, alert, cooperative, no apparent distress, and appears stated age Respiratory: No increased work of breathing, good air exchange, clear to auscultation bilaterally, no crackles or wheezing Cardiovascular: Normal apical impulse, regular rate and rhythm, normal S1 and S2, no S3 or S4, and no murmur noted GI: Bowel sounds present, abdomen soft but very sensitive to light palpation at the level of the epigastrium and in the left painful in the lower abdomen. Medical Decision Making 40 MINUTES SPENT BY ME on the date of service doing chart review, history, exam, documentation & further activities per the note. Data I have personally reviewed the following data over the past 24 hrs: 8.2 \ 12.8 / 243 138 105 7.4 (L) / 122 (H) 4.7 22 0.82 \ ALT: 19 AST: 19 AP: 80 TBILI: 0.6 ALB: 4.0 TOT PROTEIN: 6.2 (L) LIPASE: N/A Procal: N/A CRP: <3.00 Lactic Acid: N/A Imaging results reviewed over the past 24 hrs: Recent Results (from the past 24 hour(s)) CT Abdomen Pelvis w Contrast Narrative EXAM: CT ABDOMEN PELVIS W CONTRAST LOCATION: [facility] DATE: 03/01/2024 INDICATION: RLQ and right sided abd pain; Hx Crohn's; likely flare COMPARISON: CT 11/29/2023, MRI 12/03/2023 TECHNIQUE: CT scan of the abdomen and pelvis was performed following injection of IV contrast. Multiplanar reformats were obtained. Dose reduction techniques were used. CONTRAST: 76mL Isovue 370 FINDINGS: LOWER CHEST: Unremarkable. HEPATOBILIARY: Cholecystectomy. Mild extrahepatic biliary ductal dilation is stable from prior exam, likely related to reservoir effect. PANCREAS: Normal. SPLEEN: Normal. ADRENAL GLANDS: Normal. KIDNEYS/BLADDER: Prior right nephrectomy. No left hydronephrosis. Urinary bladder is unremarkable. BOWEL: Prior ileocecectomy. The transverse colon is relatively featureless with subtle wall thickening, mucosal hyperenhancement and surrounding fat stranding, new/increased in comparison to prior exam. No evidence of bowel obstruction, gross perforation or evidence of penetrating disease. LYMPH NODES: No suspicious lymphadenopathy. VASCULATURE: Scattered calcified atherosclerosis. PELVIC ORGANS: Hysterectomy. MUSCULOSKELETAL: No acute bony abnormality. Impression IMPRESSION: 1. Likely transverse colitis, new/worsened since prior exam, most likely related to known inflammatory bowel disease. 2. No evidence of bowel obstruction or penetrating disease. documented in this encounter H&P Notes * Carolin Harris PA-C - 03/01/2024 11:26 PM CDT [facility] Admission History and Physical Examination NAME: Hortensia Buitrago : 1960 Date of Admission: 03/01/2024 Assessment & Plan Hortensia Buitrago is a 63 year old female with a PMH significant for Crohn's disease follows with [facility] and has started Remicade for the last year who presents with waxing waning abdominal pain over the last 4 to 5 days. She attempted to call her GI clinic but was unable to reachthem. She was having increasing stooling poor p.o. intake and abdominal pain therefore she came into the emergency room for further evaluation. Here in the ER she was initially hypertensive but otherwise vital signs are stable. Laboratory results today was fairly unremarkable. White count normal mild renal insufficiency with creatinine 1.09 and CRP is currently pending. CT scan abdomen pelvis shows likely transverse colitis with new or worsened wall thickening and surrounding fat stranding no abscess or penetrating disease. Apparently GI was going to start her on p.o. steroid taper but since she is admitted to the hospital and not able to tolerate adequate p.o. hospital admission was recommended for initiation of IV steroids. # Acute Crohn's flare Has been a patient of [facility], has been on Remicade since August 2023 with herlast infusion just 3 days ago. She describes abdominal pain in the lower region and cramping along with nonbloody diarrhea and poor p.o. intake -On exam her belly is soft there is no guarding, she appears to be stable and nontoxic-appearing -Admit as inpatient for IV fluid hydration -Antiemetics, pain control -Continue IV Solu-Medrol 40 mg every 8hr as per GI recommendation -will obtain formal GI consult # GERD - resume PPI # Insomnia -Resume trazodone # Overweight: Estimated body mass index is 26.99 kg/m?? as calculated from the following: Height as of this encounter: 1.6 m (5' 3). Weight as of this encounter: 69.1 kg (152 lb 5.4 oz). Awaiting formal pharmacy reconciliation to resume home medications. DVT Prophylaxis: Low Risk/Ambulatory with no VTE prophylaxis indicated and Ambulate every shift Code Status: Full Code Medically Ready for Discharge: Anticipated in 2-4 Days Expected Discharge Date: 03/03/2024 Carolin Harris PA-C Primary Care Physician Andrew Israel Chief Complaint Abd pain History is obtained from the patient Discussed with Dr. Schneider in the ED, full chart review including lab work, imaging, and vital signs were reviewed. History of Present Illness Hortensia Buitrago is a 63 year old female with a PMH significant for Crohn's disease follows with [facility] and has started Remicade for the last year who presents with waxing waning abdominal pain over the last 4 to 5 days. She attempted to call her GI clinic but was unable to reachthem. She was having increasing stooling poor p.o. intake and abdominal pain therefore she came into the emergency room for further evaluation. Here in the ER she was initially hypertensive but otherwise vital signs are stable. Laboratory results today was fairly unremarkable. White count normal mild renal insufficiency with creatinine 1.09 and CRP is currently pending. CT scan abdomen pelvis shows likely transverse colitis with new or worsened wall thickening and surrounding fat stranding no abscess or penetrating disease. Apparently GI was going to start her on p.o. steroid taper but since she is admitted to the hospital and not able to tolerate adequate p.o. hospital admission was recommended for initiation of IV steroids. Past Medical History I have reviewed this patient's medical history and updated it with pertinent information if needed. 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 CURRENT TREATMENT:-Infliximab 10 mg/kg every 6 weeks (increased from 5 mg/kg to 10 mg/kg on 08/14/23; then increased to every 6 weeks starting 09/24/23 from every 8 weeks after low trough levelsin 08/14/2023). Increased to every 4 weeks late November 2023 after hospitalization - increased inflammation on MRE and CRP 36 down to 6 after steroids/dose of inpatient infliximab 10mg/kg. IMAGING:CT abdomen and pelvis 12/10/2022 revealing thickened distal ileum with mucosal hyperemia. Prior cholecystectomy with borderline dilated CBD.. Past Surgical History I have reviewed this patient's surgical history and updated it with pertinent information if needed. Past Surgical History: Procedure Laterality Date APPENDECTOMY CHOLECYSTECTOMY COLONOSCOPY N/A 06/20/2023 Procedure: Colonoscopy with biopsies; Surgeon: Ananda Vernon MD; Location: [facility] LAPAROSCOPIC RESECTION ILEOCECAL N/A 03/21/2023 Procedure: Laparoscopic assisted ileocolic resection; Surgeon: Madison Iverson MD; Location: [facility] NEPHRECTOMY Right 2008 Prior to Admission Medications Prior to Admission Medications Prescriptions Last Dose Informant Patient Reported? Taking? Vitamin D3 (CHOLECALCIFEROL) 25 mcg (1000 units) tablet Yes No Sig: Take 25 mcg by mouth daily acetaminophen (TYLENOL) 500 MG tablet No No Sig: Take 1-2 tablets (500-1,000 mg) by mouth every 6 hours as needed for mild pain albuterol (PROAIR HFA/PROVENTIL HFA/VENTOLIN HFA) 108 [...] 1,000 mg by mouth 2 times daily montelukast (SINGULAIR) 10 MG tablet Yes No Sig: Take 10 mg by mouth At Bedtime nortriptyline (PAMELOR) 25 MG capsule Yes No Sig: Take 25 mg by mouth At Bedtime ondansetron (ZOFRAN ODT) 4 MG ODT tab No No Sig: Take 1 tablet (4 mg) by mouth every 8 hours as needed for nausea predniSONE (DELTASONE) 5 MG tablet Yes No Sig: Take by mouth daily Starting 11/26/23 80 mg dailly for 1 week, then 70 mg dailly for 1 week 60 mg dailly for 1 week 50 mg dailly for 1 week 40 mg dailly for 1 week 30 mg dailly for 1 week 20 mg dailly for 1 week 10 mg dailly for 1 week simethicone (MYLICON) 80 MG chewable tablet No No Sig: Take 1 tablet (80 mg) by mouth every 6 hours as needed for cramping traZODone (DESYREL) 100 MG tablet Yes No Sig: Take 200 mg by mouth At Bedtime vitamin C (ASCORBIC ACID) 1000 MG TABS Yes No Sig: Take 1,000 mg by mouth daily Facility-Administered Medications: None Allergies Allergies Allergen Reactions Latex Hives Oxycodone Anaphylaxis, Hives and Swelling Throat swelling, per pt Pt tolerates Belcher/Vicodin (06/22/2023) Penicillin G Anaphylaxis Sumatriptan Palpitations Aspirin Nausea and Vomiting Demerol Hcl [Meperidine] Nausea and Vomiting N/V Percocet [Oxycodone-Acetaminophen] Nausea and Vomiting N/V Acetaminophen Nausea and Vomiting Codeine Nausea and Vomiting Mold Social History I have reviewed this patient's social history and updated it with pertinent information if needed. Hortensia Buitrago Family History I have reviewed this patient's family history and updated it with pertinent information if needed. Family History Problem Relation Age of Onset Colon Cancer Niece Review of Systems The 10 point Review of Systems is negative other than noted in the HPI or here. Physical Exam Temp: 97.8 ??F (36.6 ??C) Temp src: Oral BP: 136/87 Pulse: 78 Resp: 20 SpO2: 98 % O2 Device: None (Room air) Vital Signs with Ranges Temp: [97.7 ??F (36.5 ??C)-97.8 ??F (36.6 ??C)] 97.8 ??F (36.6 ??C) Pulse: [78-110] 78 Resp: [16-20] 20 BP: (124-155)/(86-106) 136/87 SpO2: [94 %-100 %] 98 % 152 lbs 5.41 oz Constitutional: Awake, alert, no apparent distress. Eyes: Conjunctiva and pupils examined and normal. HEENT: Moist mucous membranes, normal dentition. Respiratory: Clear to auscultation bilaterally, no crackles or wheezing. Cardiovascular: Regular rate and rhythm, normal S1 and S2, and no murmur noted. GI: Soft, non-distended,mild mid abd tenderness with palpation , bowel sounds present. No rebound tenderness or guarding. Lymph/Hematologic: No anterior cervical or supraclavicular adenopathy. Skin: No rashes, no cyanosis, no edema. Musculoskeletal: No deformities noted. No erythema or tenderness. Moving all extremities. Neurologic: No focal deficits noted. Speech is clear. Coordination and strength grossly normal. Psychiatric: Appropriate affect. Data Data reviewed today: EKG: NSR Imaging: Recent Results (from the past 24 hour(s)) CT Abdomen Pelvis w Contrast Narrative EXAM: CT ABDOMEN PELVIS W CONTRAST LOCATION: [facility] DATE: 03/01/2024 INDICATION: RLQ and right sided abd pain; Hx Crohn's; likely flare COMPARISON: CT 11/29/2023, MRI 12/03/2023 TECHNIQUE: CT scan of the abdomen and pelvis was performed following injection of IV contrast. Multiplanar reformats were obtained. Dose reduction techniques were used. CONTRAST: 76mL Isovue 370 FINDINGS: LOWER CHEST: Unremarkable. HEPATOBILIARY: Cholecystectomy. Mild extrahepatic biliary ductal dilation is stable from prior exam, likely related to reservoir effect. PANCREAS: Normal. SPLEEN: Normal. ADRENAL GLANDS: Normal. KIDNEYS/BLADDER: Prior right nephrectomy. No left hydronephrosis. Urinary bladder is unremarkable. BOWEL: Prior ileocecectomy. The transverse colon is relatively featureless with subtle wall thickening, mucosal hyperenhancement and surrounding fat stranding, new/increased in comparison to prior exam. No evidence of bowel obstruction, gross perforation or evidence of penetrating disease. LYMPH NODES: No suspicious lymphadenopathy. VASCULATURE: Scattered calcified atherosclerosis. PELVIC ORGANS: Hysterectomy. MUSCULOSKELETAL: No acute bony abnormality. Impression IMPRESSION: 1. Likely transverse colitis, new/worsened since prior exam, most likely related to known inflammatory bowel disease. 2. No evidence of bowel obstruction or penetrating disease. Recent Labs Lab 03/01/24 1424 WBC 8.0 HGB 13.3 MCV 91 PLT 273 NA 141 POTASSIUM 4.3 CHLORIDE 105 CO2 22 BUN 9.0 CR 1.09* ANIONGAP 14 DAJA 9.6 GLC 119* Carolin [facility] Medicine March 01, 2024 Securely message with the [employer] Web Console (learn more here) Text page via [facility] Paging/Directory Associated attestation - Eusebio Zhang MD - 03/04/2024 10:24 AM CDT Physician Attestation I have reviewed and discussed with the advanced practice provider their history, physical and plan for Hortensia Buitrago. I did not participate in a shared visit; this is an advanced practice provider only visit. Eusebio Zhang MD Date of Service (when I saw the patient): I did not personally see this patient today. documented in this encounter Consult Notes * Jessica Alcaraz RN - 03/02/2024 11:39 AM CDTAssociated Order(s): CARE MANAGEMENT / SOCIAL WORK IP CONSULT Care Management Discharge Note Discharge Date: 03/03/2024 Discharge Disposition: Home Discharge Services: None Discharge DME: Discharge Transportation: family or friend will provide Private pay costs discussed: Not applicable Does the patient's insurance plan have a 3 day qualifying hospital stay waiver? No Education Provided on the Discharge Plan: yes Persons Notified of Discharge Plans: Patient Patient/Family in Agreement with the Plan: yes Handoff Referral Completed: Yes Additional Information: Patient admitted with Chrons flare. Has elevated URR of 25%. Met with patient at the bedside. She confirms she lives at home with her spouse and is independent with all her ADLs and IADLs at baseline. She verbalizes frustration about needing to be admitted again due to her inflammation. I would just like to feel like my old self again, even for a month. She understands that her treatment plan is new with Remicade starting in January and will take time. She has a very supportive spouse and does not feel at this point she has any discharge needs. She is looking forward to a 2 week vacation coming up and is hoping to feel better by then. CM will sign off but if any needs do arise please re-consult our team. Jessica Alcaraz LEAD SETTER [facility] [employer] [facility] [phone] * Betty Olivares APRN CNP - 03/02/2024 11:15 AM CDTAssociated Order(s): GASTROENTEROLOGY IP CONSULT Images from the original note were not included. GASTROENTEROLOGY CONSULTATION Hortensia Downing Buitrago [address] [place] [id number] 63 year old female Admission Date/Time: 03/01/2024 Primary Care Provider: Andrew Israel We were asked to see the patient in consultation by Dr. Zhang for evaluation of Crohn's flare. CC: Abdominal pain HPI: Hortensia Buitrago is a 63 year old female with a history of fibrostenotic crohn's with s/p resection, she was on steroids for about 4 months, currently on Remicade 10 mg/kg every 4 weeks. She was symptoms free for three weeks after her last infusion. She started having several non bloody bowel movements last . She received her scheduled infusion on Friday. [place] very tired on Friday. She had multiple stools on Friday as well. Yesterday she experienced severe mid abdominal pain that radiated to right mid back this was associated with nausea as well. She call [facility] she was give oral steroids for 10 day. She hasn't picked up the prescription yet. She presented to ED due to worsening pain. Pain is better today, had one BM today. No bloody stools. She did take a small dose of dilaudid this morning. CT on this admission showed transverse colitis, new/worsened since prior exam, most likely related to known inflammatory bowel disease. No evidence of bowel obstruction or penetrating disease. CRP within normal limits. CBC and Blood counts within normal limits. Her las colonoscopy from 06/2023 showed normal ileum, healthy appearing anastomosis. MRCP from November 2023 showed hort segment of bowel wall thickening and enhancement in the distal ileum, new since the previous exam and suspicious for active Crohn's inflammation.Trace amount of free fluid in the right lower quadrant and several mildly prominent mesenteric lymph nodes in the right lower quadrant are nonspecific, but likely also related to distal small bowel inflammation. Moderate to large amount of stool throughout the colon suggests constipation. Multiple mildly prominent loops of mid and distal small bowel with no definite transition point suggests ileus, although an early small bowel obstruction is difficult to exclude from this appearance, and close follow-up is recommended. PAST MEDICAL HISTORY: Patient Active Problem List Diagnosis Date Noted Generalized abdominal pain 11/29/2023 Priority: Medium Exacerbation of Crohn's disease with complication (H) 11/29/2023 Priority: Medium Crohn disease (H) 11/29/2023 Priority: Medium History of Crohn's disease 09/22/2023 Priority: Medium [...] needed for mild pain 04/02/23 Yes Jackie Huffman PA-C albuterol (PROAIR HFA/PROVENTIL HFA/VENTOLIN HFA) 108 (90 Base) MCG/ACT inhaler Inhale 2 puffs intothe lungs every 6 hours as needed for shortness of breath, wheezing or cough Yes Unknown, Entered By History cyanocobalamin (CYANOCOBALAMIN) 1000 MCG/ML injection [...] IV) Inject 10 mg/kg into the vein every 4 weeks Yes Unknown, Entered By History l-lysine HCl 500 MG TABS tablet Take 1,000 mg by mouth daily Yes Unknown, Entered By History medical cannabis [...] At Bedtime Yes Unknown, Entered By History simethicone (MYLICON) [...] mouth daily Yes Unknown, Entered By History zolpidem (AMBIEN) 5 MG tablet Take 5 mg by mouth nightly as needed 03/01/24 Yes Unknown, Entered By History ondansetron (ZOFRAN ODT) 4 MG ODT tab Take 1 tablet (4 mg) by mouth every 8 hours as needed for nausea 12/09/23 Cathy Childers DO ALLERGIES: Allergies Allergen Reactions Latex Hives Oxycodone Anaphylaxis, Hives and Swelling Throat swelling, per pt Pt tolerates Belcher/Vicodin (06/22/2023) Penicillin G Anaphylaxis Sumatriptan Palpitations Aspirin Nausea and Vomiting Demerol Hcl [Meperidine] Nausea and Vomiting N/V Percocet [Oxycodone-Acetaminophen] Nausea and Vomiting N/V Acetaminophen Nausea and Vomiting Codeine Nausea and Vomiting Mold SOCIAL HISTORY: FAMILY HISTORY: Family History Problem Relation Age of Onset Colon Cancer Niece PHYSICAL EXAM: BP 117/80 (BP Location: Right arm) Pulse 73 Temp 98 ??F (36.7 ??C) (Oral) Resp 20 Ht 1.6 m (5' 3) Wt 69.1 kg (152 lb 5.4 oz) SpO2 97% BMI 26.99 kg/m?? General: alert, oriented, NAD SKIN: no suspicious lesions, rashes, jaundice, or spider angiomas EYES: No scleral icterus RESPIRATORY: Non labored breathing, Lungs clear CARDIOVASCULAR: RRR. No murmurs, clicks gallops or rub GASTROINTESTINAL: Active bowel sounds, abdomen soft and mid abdominal tenderness on palpation. JOINT/EXTREMITIES: extremities normal- no gross deformities noted. No edema. NEURO: Grossly WNL. PSYCH: no abnormal anxiety/depression LABS: I reviewed the patient's new clinical lab test results. Recent Labs Lab Test 03/02/24 0621 03/01/24 1424 12/07/23 0650 WBC 8.2 8.0 13.4* HGB 12.8 13.3 13.3 MCV 88 91 90 PLT 243 273 253 Recent Labs Lab Test 03/02/24 0621 03/01/24 1424 12/09/23 0749 NA 138 141 137 POTASSIUM 4.7 4.3 4.6 CHLORIDE 105 105 101 CO2 22 22 29 BUN 7.4* 9.0 15.8 ANIONGAP 11 14 7 DAJA 8.9 9.6 8.7* Recent Labs Lab Test 03/02/24 0621 03/01/24 1502 12/06/23 0140 11/29/23 1528 11/29/23 1526 09/23/23 0816 06/16/23 1750 06/16/23 1737 03/31/23 1717 03/31/23 1608 ALBUMIN 4.0 -- -- 4.7 -- 3.9 < > 4.7 -- 3.9 BILITOTAL 0.6 -- -- 0.3 -- 0.6 < > 0.4 -- 0.3 ALT 19 -- -- 13 -- 11 < > 15 -- 28 AST 19 -- -- 17 -- 16 < > 24 -- 29 ALKPHOS 80 -- -- 71 -- 64 < > 87 -- 72 PROTEIN -- Negative Negative -- Negative -- < > -- < > -- LIPASE -- -- -- -- -- -- -- 27 -- 56 < > = values in this interval not displayed. IMAGING/PROCEDURES: CT 03/01 IMPRESSION: 1. Likely transverse colitis, new/worsened since prior exam, most likely related to known inflammatory bowel disease. 2. No evidence of bowel obstruction or penetrating disease. MRE November 2023 IMPRESSION: 1. There is a short segment [...] this appearance, and close follow-up is recommended. Colonoscopy 06/16/2023 Impression: - The examined portion of the ileum was normal. - Patent end-to-side ileo-colonic anastomosis, characterized by healthy appearing mucosa. - Normal mucosa in the entire examined colon. Biopsied. - Internal hemorrhoids. I personally reviewed the patient's new imaging results. Problem list pertaining to GI: Crohn's flare Abdominal pain Diarrhea Assessment: This is a 63 y-o female with a history of fibrostenotic crohn's. S/P resection, who is currently on Remicade 10 mg/kg every 4 weeks. She was admitted for worsening abdominal pain and diarrhea since last week. Her last infusion was on Friday. CT showed transverse colitis, new/worsened since prior exam, most likely related to known inflammatory bowel disease. CRP within normal limits. She was started on IV steroids. She is feeling better today. Plan: - Continue IV steroids - Stool test to rule out infection - She might be able to go home tomorrow on oral steroids. Rx already at her pharmacy. --Follow up with Dr. Juan as scheduled in March - GI will follow I will discuss with Dr. Vernon Thank you for allowing me to participate in the care of this patient. Please contact me with any questions or concerns. Total time spent: Approximately, 45 minutes was spent providing patient care, including patient evaluation, reviewing documentation/test results, and order worker. Thank you for asking us to participate in the care of this patient. Betty Olivares CNP [place] [employer] [facility] ([facility]) [id number] Associated attestation - Ananda Vernon MD - 03/02/2024 3:50 PM CDT GI/Hepatology Staff addendum This patient was discussed in detail with NPPA, seen and examined by myself, please see my findingsas outlined below. She began to have frequent BMs and increased abdominal pain on 02/23, which increased significantly on 02/25. She had her infliximab infusion on 02/26, unfortunately she did not have significant improvement and therefore came to the ER. She denies fevers, nausea, or vomiting. Physical Exam: General Appearance: alert, oriented x3, no acute distress. BP 128/74 (BP Location: Right arm) Pulse 89 Temp 98.4 ??F (36.9 ??C) (Oral) Resp 20 Ht 1.6 m (5' 3) Wt 69.1 kg (152 lb 5.4 oz) SpO2 97% BMI 26.99 kg/m?? : Eye: sclera anicteric. GI: Soft, NABS, mild epigastric tenderness without rebound. Neuro: no asterixis. COMMENTS: Reviewed the patient's pertinent lab and imaging results. Assessment and Plan: 63 year old female Crohn's disease admit with worsening pain and diarrhea. Feeling significantly better today, only 1 BM so for today. Agree with stool studies, continue IV steroids, hopefully home tomorrow. Total time spent on patient care activities 25 minutes Ananda Vernon MD documented in this encounter ED Notes * America Miramontes RN - 03/01/2024 9:04 PM CDT [facility] ED Nurse Handoff Report ED Chief complaint: Abdominal Pain . ED Diagnosis: Final diagnoses: Exacerbation of Crohn's disease with complication (H) Allergies: Allergies Allergen Reactions Latex Hives Oxycodone Anaphylaxis, Hives and Swelling Throat swelling, per pt Pt tolerates Belcher/Vicodin (06/22/2023) Penicillin G Anaphylaxis Sumatriptan Palpitations Aspirin Nausea and Vomiting Demerol Hcl [Meperidine] Nausea and Vomiting N/V Percocet [Oxycodone-Acetaminophen] Nausea and Vomiting N/V Acetaminophen Nausea and Vomiting Codeine Nausea and Vomiting Mold Code Status: Full Code Activity level - Baseline/Home: independent. Activity Level - Current: assist of 2. Lift room needed: No. Bariatric: No Process Safety Specialist Needed: No Isolation: No. Infection: Not Applicable. Respiratory status: Room air Vital Signs (within 30 minutes): Vitals: 03/01/24 1700 03/01/24 1715 03/01/24 1745 03/01/24 1800 BP: (!) 155/98 (!) 150/93 (!) 150/89 Pulse: 79 Resp: Temp: TempSrc: SpO2: 100% 99% 98% 98% Weight: Height: Cardiac Rhythm: , Pain level: Patient confused: No. Patient Falls Risk: nonskid shoes/slippers when out of bed. Elimination Status: Has voided Patient Report - Initial Complaint: Hortensia Buitrago is a 63 year old female who presents with abdominal pain. Patient states that she had 20 inches of her small intestine and small portion of her large intestine removed 11 months ago. She notes that her frequency of Chron's flare-ups has not reduced. Patient deduces her current episode of abdominal pain to a Chron's flare-up by relating its similarity two an episode she had two months ago that caused her to get admitted. Patient describes that her abdominal pain is localized in her lower abdomen and gradually radiates to her right side. Patient notes the onset of her symptoms as four days ago, noting that she went to the bathroom 18 times. P dorian notes that she had a Remicade injection three days ago and that her symptoms did not improveas she also excessively had bowel movements the same day. She states that she had minimal bowel movements two days ago during the afternoon, but had the onset of a stabbing pain and increased bowel movements that night. She states that she went to [facility] today but that her provider was not present, and was subsequently advised to come to the ED. She states that she usually has morphine and dilaudidused for pain management. 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 She denies chest pain and shortness of breath. . Focused Assessment: Abdominal pain, nausea, vomiting, diarrhea since Friday last week. Took zofran at 8am, helped with nausea a little bit. Pain with urination. Abnormal Results: Labs Ordered and Resulted from Time of ED Arrival to Time of ED Departure BASIC METABOLIC PANEL - Abnormal Result Value Sodium 141 Potassium 4.3 Chloride 105 Carbon Dioxide (CO2) 22 Anion Gap 14 Urea Nitrogen 9.0 Creatinine 1.09 (*) GFR Estimate 56 (*) Calcium 9.6 Glucose 119 (*) ROUTINE UA WITH MICROSCOPIC REFLEX TO CULTURE - Abnormal Color Urine Straw Appearance Urine Clear Glucose Urine Negative Bilirubin Urine Negative Ketones Urine Negative Specific [place] Urine 1.005 Blood Urine Negative pH Urine 5.5 Protein Albumin Urine Negative Urobilinogen Urine Normal Nitrite Urine Negative Leukocyte Esterase Urine Negative Bacteria Urine Few (*) RBC Urine <1 WBC Urine <1 MAGNESIUM - Normal Magnesium 2.1 CBC WITH PLATELETS AND DIFFERENTIAL WBC Count 8.0 RBC Count 4.51 Hemoglobin 13.3 Hematocrit 40.8 MCV 91 MCH 29.5 MCHC 32.6 RDW 13.2 Platelet Count 273 % Neutrophils 59 % Lymphocytes 32 % Monocytes 7 % Eosinophils 2 % Basophils 1 % Immature Granulocytes 1 NRBCs per 100 WBC 0 Absolute Neutrophils 4.7 Absolute Lymphocytes 2.5 Absolute Monocytes 0.6 Absolute Eosinophils 0.1 Absolute Basophils 0.1 Absolute Immature Granulocytes 0.[address] Abdomen Pelvis w Contrast Final Result IMPRESSION: 1. Likely transverse colitis, new/worsened since prior exam, most likely related to known inflammatory bowel disease. 2. No evidence of bowel obstruction or penetrating disease. Treatments provided: Pain meds Family Comments: OBS brochure/video discussed/provided to patient: N/A ED Medications: Medications ondansetron (ZOFRAN ODT) ODT tab 4 mg (4 mg Oral $Given 03/01/24 1420) morphine (PF) injection 4 mg (4 mg Intravenous $Given 03/01/241655) ondansetron (ZOFRAN) injection 4 mg (4 mg Intravenous $Given 03/01/241654) sodium chloride 0.9% BOLUS 1,000 mL (0 mLs Intravenous Stopped 03/01/241806) iopamidol (ISOVUE-370) solution 500 mL (76 mLs Intravenous $Given 03/01/241815) CT scan flush (59 mLs Intravenous $Given 03/01/241815) HYDROmorphone (DILAUDID) injection 1 mg (1 mg Intravenous $Given 03/01/242001) methylPREDNISolone sodium succinate (SOLU-MEDROL) injection 20 mg (20 mg Intravenous $Given ) Drips infusing: No For the majority of the shift this patient was Green. Interventions performed were Pain meds, see MAR. Sepsis treatment initiated: No Cares/treatment/interventions/medications to be completed following ED care: See Orders ED Nurse Name: Ella Richardson RN 9:04 PM RECEIVING UNIT ED HANDOFF REVIEW Above ED Nurse Handoff Report was reviewed: Yes Reviewed by: America Miramontes RN on March 01, 2024 at 9:53 PM Augustin Longoria called the ED to inform them the note was read: Yes * Cori Hull RN - 03/01/2024 2:17 PM CDT Abdominal pain, nausea, vomiting, diarrhea since Friday last week. Took zofran at 8am, helped with nausea a little bit. Pain with urination. * Philipp Schneider DO - 03/01/2024 2:07 PM CDT Emergency Department Note History of Present Illness Chief Complaint: Abdominal Pain HPI Hortensia Buitrago is a 63 year old female who presents with abdominal pain. Patient states that she had 20 inches of her small intestine and small portion of her large intestine removed 11 months ago. She notes that her frequency of Chron's flare-ups has not reduced. Patient deduces her current episode of abdominal pain to a Chron's flare-up by relating its similarity two an episode she had two months ago that caused her to get admitted. Patient describes that her abdominal pain is localized in her lower abdomen and gradually radiates to her right side. Patient notes the onset of her symptoms as four days ago, noting that she went to the bathroom 18 times. Patient notes that she had a Remicade injection three days ago and that her symptoms did not improve as she also excessively had bowel movements the same day. She states that she had minimal bowel movements two days ago during the afternoon, but had the onset of a stabbing pain and increased bowel movements that night. She states thatshe went to [facility] today but that her provider was not present, and was subsequently advised to come to the ED. She states that she usually has morphine and dilaudid used for pain management. Of note, patient states that she had her right kidney removed in 2008 due to cancer. She denies chest pain and shortness of breath. Independent Historian: None Review of External Notes None Past Medical History Medical History, Surgical History, Problem List, and Medications Reviewed in Epic Physical Exam Patient Vitals for the past 24 hrs: BP Temp Temp src Pulse Resp SpO2 Height Weight 03/01/24 2205 131/86 -- -- -- -- 95 % -- -- 03/01/24 2115 124/86 -- -- -- -- 94 % -- -- 03/01/24 2000 (!) 137/106 -- -- 80 -- -- -- -- 03/01/24 1800 (!) 150/89 -- -- 79 -- 98 % -- -- 03/01/24 1745 (!) 150/93 -- -- -- -- 98 % -- -- 03/01/24 1715 (!) 155/98 -- -- -- -- 99 % -- -- 03/01/24 1700 -- -- -- -- -- 100 % -- -- 03/01/24 1645 (!) 130/92 -- -- -- -- -- -- -- 03/01/24 1416 (!) 141/102 97.7 ??F (36.5 ??C) Temporal 110 16 100 % 1.6 m (5' 3) 69.1 kg (152 lb 5.4 oz) Physical Exam Constitutional: Vital signs reviewed as above. Eyes: PEERL, EOMI B/L Neck: No JVD noted. FROM Cardiovascular: tachycardic rate, Regular rhythm and normal heart sounds. No murmur heard. Equal B/L peripheral pulses. Pulmonary/Chest: Effort normal and breath sounds normal. No respiratory distress. Patient has no wheezes. Patient has no rales. Gastrointestinal: Soft. There is periumbilical and RLQ tenderness. There is RLQ rebound. Musculoskeletal/Extremities: No pitting edema noted. Normal tone. Neurological: Alert Skin: Skin is warm and dry. There is no diaphoresis noted. Psychiatric: The patient appears calm. Diagnostics Laboratory: Imaging: Labs Ordered and Resulted from Time of ED Arrival to Time of ED Departure BASIC METABOLIC PANEL - Abnormal Result Value Sodium 141 Potassium 4.3 Chloride 105 Carbon Dioxide (CO2) 22 Anion Gap 14 Urea Nitrogen 9.0 Creatinine 1.09 (*) GFR Estimate 56 (*) Calcium 9.6 Glucose 119 (*) ROUTINE UA WITH MICROSCOPIC REFLEX TO CULTURE - Abnormal Color Urine Straw Appearance Urine Clear Glucose Urine Negative Bilirubin Urine Negative Ketones Urine Negative Specific [place] Urine 1.005 Blood Urine Negative pH Urine 5.5 Protein Albumin Urine Negative Urobilinogen Urine Normal Nitrite Urine Negative Leukocyte Esterase Urine Negative Bacteria Urine Few (*) RBC Urine <1 WBC Urine <1 MAGNESIUM - Normal Magnesium 2.1 CBC WITH PLATELETS AND DIFFERENTIAL WBC Count 8.0 RBC Count 4.51 Hemoglobin 13.3 Hematocrit 40.8 MCV 91 MCH 29.5 MCHC 32.6 RDW 13.2 Platelet Count 273 % Neutrophils 59 % Lymphocytes 32 % Monocytes 7 % Eosinophils 2 % Basophils 1 % Immature Granulocytes 1 NRBCs per 100 WBC 0 Absolute Neutrophils 4.7 Absolute Lymphocytes 2.5 Absolute Monocytes 0.6 Absolute Eosinophils 0.1 Absolute Basophils 0.1 Absolute Immature Granulocytes 0.[address] Abdomen Pelvis w Contrast Final Result IMPRESSION: 1. Likely transverse colitis, new/worsened since prior exam, most likely related to known inflammatory bowel disease. 2. No evidence of bowel obstruction or penetrating disease. ECG results from 03/01/24 EKG 12 lead Value Systolic Blood Pressure Diastolic Blood Pressure Ventricular Rate 86 Atrial Rate 86 VA Interval 138 QRS Duration 84 QT 358 QTc 428 P [place] 40 R AXIS -11 T [place] 50 Interpretation ECG Sinus rhythm Minimal voltage criteria for LVH, may be normal variant ( R in aVL ) Borderline ECG When compared with ECG of 31-MAR-2023 20:17, No significant change was found Interpreted by me at 1457 Independent Interpretation See ED course ED Course Medications Administered Medications ondansetron (ZOFRAN) injection 4 mg (4 mg Intravenous $Given 03/01/24 2213) ondansetron (ZOFRAN ODT) ODT tab 4 mg (4 mg Oral $Given 03/01/24 1420) morphine (PF) injection 4 mg (4 mg Intravenous $Given 03/01/24 1656) ondansetron (ZOFRAN) injection 4 mg (4 mg Intravenous $Given 03/01/24 1655) sodium chloride 0.9% BOLUS 1,000 mL (0 mLs Intravenous Stopped 03/01/241806) iopamidol (ISOVUE-370) solution 500 mL (76 mLs Intravenous $Given 03/01/241815) CT scan flush (59 mLs Intravenous $Given 03/01/241815) HYDROmorphone (DILAUDID) injection 1 mg (1 mg Intravenous $Given 03/01/242001) methylPREDNISolone sodium succinate (SOLU-MEDROL) injection 20 mg (20 mg Intravenous $Given ) Procedures Procedures Discussion of Management See ED Course Social Determinants of Health adding to complexity of care None ED Course ED Course as of 03/01/242221Mar 01, 20241606 I obtained history and examined the patient as noted above 1939 Rechecked and updated. 1954 D/W Dr. Win ([facility]). Would recommend 20mg IV solu-medrol now. If she wants to go home she lauren 20 mg prednisone/day x 2 weeks (this was prescribed by her GI clinic this AM). If she stays inpt, can do 20mg solu-medrol q8. 2014 Rechecked. Patient feels that oral prednisone is not typically effective for her. I will pursue inpatient treatment. 2057 D/W Carolin Harris PA-C, accepting for Dr. Zhang. Medical Decision Making / Diagnosis [facility] Diagnoses: None Code Status: Prior MIPS None Medical Decision Making: This 63-year-old female patient presents to the ED due to abdominal pain. Please see the HPI and exam for specifics. A broad differential was considered leading to the workup above. I was fairly certain the patient would have an exacerbation of her Crohn's but due to the initial severity of her abdominal exam I was prepared for bowel obstruction, abscess, perforation, etc. Fortunately, none of those were found and the patient likely simply has an exacerbation of her Crohn's disease. I discussedthe case with GI and we will plan on administering IV Solu-Medrol. The patient stated that oral prednisone does not seem to help her flareups and after that discussion we will plan on admitting the patient to the hospital. I discussed the case with the admitting hospitalist who accepts patient for further monitoring and care. Critical Care: None. Disposition: See ED Course and MDM ICD-10 Codes: ICD-10-CM 1. Exacerbation of Crohn's disease with complication (H) K50.919 Discharge Medications: New Prescriptions No medications on file 03/01/2024 Philipp Schneider DO [employer] Philipp Schneider DO 03/01/242222 documented in this encounter Miscellaneous Notes * Plan of Care - Cate Contreras RN - 03/03/2024 5:10 PM CDT Discharge Note Patient discharged to home via private vehicle accompanied by significant other . IV: Discontinued Prescriptions N/A. Belongings reviewed and sent with patient. Home medications returned to patient: NA Equipment sent with: N/A. patient verbalizes understanding of discharge instructions. AVS given to patient. Additional education completed? Pain management PRIMARY DIAGNOSIS: GENERIC NURSING OUTPATIENT/OBSERVATION GOALS TO BE MET BEFORE DISCHARGE: ADLs back to baseline: Yes Activity and level of assistance: Ambulating independently. Pain status: Improved-controlled with oral pain medications. Return to near baseline physical activity: Yes Continuous Dryout Operator Helper Nurse Safe discharge environment identified: Yes Barriers to discharge: No Entered by: AVI FISCHER RN 03/03/2024 5:20 PM Please review provider order for any additional goals. Nurse to notify provider when observation goals have been met and patient is ready for discharge. Goal Outcome Evaluation: Plan of Care Reviewed With: patient Overall Patient Progress: improvingOverall Patient Progress: improving Outcome Evaluation: Ready for d/c Problem: Adult Inpatient Plan of Care Goal: Plan of Care Review Description: The Plan of Care Review/Shift note should be completed every shift. The Outcome Evaluation is a brief statement about your assessment that the patient is improving, declining, or no change. This information will be displayed automatically on your shift note. 03/02/20242207 by Cate Contreras RN Outcome: Progressing Flowsheets (Taken 03/02/20242207) Outcome Evaluation: pain well managed with current regimen, awaiting stool sample Plan of Care Reviewed With: patient Overall Patient Progress: improving 03/02/20242200 by Cate Contreras RN Outcome: Progressing Flowsheets (Taken 03/02/20242200) Outcome Evaluation: No BM, pain managed with PO medications Plan of Care Reviewed With: patient Overall Patient Progress: no change 03/02/20241750 by Cate Contreras RN Outcome: Not Progressing Flowsheets (Taken 03/02/20241750) Outcome Evaluation: No BM since stool sample labs ordered, pain managed with PO Medications Plan of Care Reviewed With: patient Overall [...] wake me up as it startles me. 03/02/20242207 by Cate Contreras RN Outcome: Progressing 03/02/20242200 by Cate Contreras RN Outcome: Progressing 03/02/20241750 by Cate Contrreas RN Outcome: Not Progressing Goal: Absence of Hospital-Acquired Illness or Injury 03/02/20242207 by Cate Contreras RN Outcome: Progressing 03/02/20242200 by Cate Contreras RN Outcome: Progressing 03/02/20241750 by Cate Contreras RN Outcome: Not Progressing Intervention: Identify and Manage Fall Risk Recent Flowsheet Documentation Taken 03/02/20240 by Cate Contreras RN Safety Promotion/Fall Prevention: assistive device/personal items within reach clutter free environment maintained increased rounding and observation lighting adjusted nonskid shoes/slippers when out of bed safety round/check completed room organization consistent treat reversible contributory factors Intervention: Prevent Skin Injury Recent Flowsheet Documentation Taken 03/02/2024 1620 by Cate Contreras RN Skin Protection: adhesive use limited Device Skin Pressure Protection: adhesive use limited tubing/devices free from skin contact Intervention: Prevent and Manage VTE (Venous Thromboembolism) Risk Recent Flowsheet Documentation Taken 03/02/2024 1620 by Cate Contreras RN VTE Prevention/Management: SCDs (sequential compression devices) off Intervention: Prevent Infection Recent Flowsheet Documentation Taken 03/02/2024 1620 by Cate Contreras RN Infection Prevention: rest/sleep promoted hand hygiene promoted single patient room provided equipment surfaces disinfected Goal: Optimal Comfort and Wellbeing 03/02/20242207 by Cate Contreras RN Outcome: Progressing 03/02/20242200 by Cate Contreras RN Outcome: Progressing 03/02/2024 175 by Cate Contreras RN Outcome: Not Progressing Intervention: Monitor Pain and Promote Comfort Recent Flowsheet Documentation Taken 03/02/20242012 by Cate Contreras RN Pain Management Interventions: medication (see MAR) Taken 03/02/2024 1628 by Cate Contreras RN Pain Management Interventions: medication (see MAR) Goal: Readiness for Transition of Care 03/02/20242207 by Cate Contreras RN Outcome: Progressing 03/02/20242200 by Cate Contreras RN Outcome: Progressing 03/02/2024 175 by Cate Contreras RN Outcome: Not Progressing * Plan of Care - Cate Contreras RN - 03/03/2024 1:00 PM CDT Goal Outcome Evaluation: Plan of Care Reviewed With: patient Overall Patient Progress: improving Overall Patient Progress: improving Outcome Evaluation: Ready for d/c PRIMARY DIAGNOSIS: GENERIC NURSING OUTPATIENT/OBSERVATION GOALS TO BE MET BEFORE DISCHARGE: ADLs back to baseline: Yes Activity and level of assistance: Ambulating independently. Pain status: Improved-controlled with oral pain medications. Return to near baseline physical activity: Yes Continuous Dryout Operator Helper Nurse Safe discharge environment identified: Yes Barriers to discharge: No Entered by: AVI FISCHER RN 03/03/2024 5:20 PM Please review provider order for any additional goals. Nurse to notify provider when observation goals have been met and patient is ready for discharge. PRIMARY DIAGNOSIS: GENERIC NURSING OUTPATIENT/OBSERVATION GOALS TO BE MET BEFORE DISCHARGE: ADLs back to baseline: Yes Activity and level of assistance: Ambulating independently. Pain status: Improved-controlled with oral pain medications. Return to near baseline physical activity: Yes Continuous Dryout Operator Helper Nurse Safe discharge environment identified: Yes Barriers to discharge: Yes Entered by: AVI FISCHER RN 03/03/2024 1300 Please review provider order for any additional goals. Nurse to notify provider when observation goals have been met and patient is ready for discharge. Goal Outcome Evaluation: Plan of Care Reviewed With: patient Overall Patient Progress: improvingOverall Patient Progress: improving Outcome Evaluation: Ready for d/c Problem: Adult Inpatient Plan of Care Goal: Plan of Care Review Description: The Plan of Care Review/Shift note should be completed every shift. The Outcome Evaluation is a brief statement about your assessment that the patient is improving, declining, or no change. This information will be displayed automatically on your shift note. 03/02/20242207 by Cate Contreras RN Outcome: Progressing Flowsheets (Taken 03/02/20242207) Outcome Evaluation: pain well managed with current regimen, awaiting stool sample Plan of Care Reviewed With: patient Overall Patient Progress: improving 03/02/20242200 by Cate Contreras RN Outcome: Progressing Flowsheets (Taken 03/02/20242200) Outcome Evaluation: No BM, pain managed with PO medications Plan of Care Reviewed With: patient Overall Patient Progress: no change 03/02/20241750 by Cate Contreras RN Outcome: Not Progressing Flowsheets (Taken 03/02/20241750) Outcome Evaluation: No BM since stool sample labs ordered, pain managed with PO Medications Plan of Care Reviewed With: patient Overall [...] wake me up as it startles me. 03/02/20242207 by Cate Contreras, IFRAH Outcome: Progressing 03/02/20242200 by Cate Contreras RN Outcome: Progressing 03/02/20241750 by Cate Contreras RN Outcome: Not Progressing Goal: Absence of Hospital-Acquired Illness or Injury 03/02/20242207 by Cate Contreras, IFRAH Outcome: Progressing 03/02/20242200 by Cate Contreras, RN Outcome: Progressing 03/02/20241750 by Cate Contreras RN Outcome: Not Progressing Intervention: Identify and Manage Fall Risk Recent Flowsheet Documentation Taken 03/02/2024 1620 by Cate Contreras RN Safety Promotion/Fall Prevention: assistive device/personal items within reach clutter free environment maintained increased rounding and observation lighting adjusted nonskid shoes/slippers when out of bed safety round/check completed room organization consistent treat reversible contributory factors Intervention: Prevent Skin Injury Recent Flowsheet Documentation Taken 03/02/2024 1620 by Cate Contreras RN Skin Protection: adhesive use limited Device Skin Pressure Protection: adhesive use limited tubing/devices free from skin contact Intervention: Prevent and Manage VTE (Venous Thromboembolism) Risk Recent Flowsheet Documentation Taken 03/02/2024 1620 by Cate Contreras RN VTE Prevention/Management: SCDs (sequential compression devices) off Intervention: Prevent Infection Recent Flowsheet Documentation Taken 03/02/2024 1620 by Cate Contreras RN Infection Prevention: rest/sleep promoted hand hygiene promoted single patient room provided equipment surfaces disinfected Goal: Optimal Comfort and Wellbeing 03/02/20242207 by Cate Contreras RN Outcome: Progressing 03/02/20242200 by Cate Contreras RN Outcome: Progressing 03/02/20241750 by Cate Contreras RN Outcome: Not Progressing Intervention: Monitor Pain and Promote Comfort Recent Flowsheet Documentation Taken 03/02/20242012 by Cate Contreras RN Pain Management Interventions: medication (see MAR) Taken 03/02/20241627 by Cate Contreras RN Pain Management Interventions: medication (see MAR) Goal: Readiness for Transition of Care 03/02/20242207 by Cate Contreras RN Outcome: Progressing 03/02/20242200 by Cate Contreras RN Outcome: Progressing 03/02/20241750 by Cate Contreras RN Outcome: Not Progressing * Plan of Care - Cate Contreras RN - 03/03/2024 9:00 AM CDT PRIMARY DIAGNOSIS: GENERIC NURSING OUTPATIENT/OBSERVATION GOALS TO BE MET BEFORE DISCHARGE: ADLs back to baseline: Yes Activity and level of assistance: Ambulating independently. Pain status: Improved-controlled with oral pain medications. Return to near baseline physical activity: Yes Continuous Dryout Operator Helper Nurse Safe discharge environment identified: Yes Barriers to discharge: Yes Entered by: AVI FISCHER RN 03/03/2024 5:23 PM Please review provider order for any additional goals. Nurse to notify provider when observation goals have been met and patient is ready for discharge. Goal Outcome Evaluation: Plan of Care Reviewed With: patient Overall Patient Progress: improvingOverall Patient Progress: improving Outcome Evaluation: Ready for d/c Problem: Adult Inpatient Plan of Care Goal: Plan of Care Review Description: The Plan of Care Review/Shift note should be completed every shift. The Outcome Evaluation is a brief statement about your assessment that the patient is improving, declining, or no change. This information will be displayed automatically on your shift note. Outcome: Met Flowsheets (Taken 03/03/2024 170) Outcome Evaluation: Ready for d/c Plan of Care Reviewed With: patient Overall [...] me up as it startles me. Outcome: Met Goal: Absence of Hospital-Acquired Illness or Injury Outcome: Met Intervention: Identify and Manage Fall Risk Recent Flowsheet Documentation Taken 03/03/2024 0900 by Cate Contreras RN Safety Promotion/Fall Prevention: assistive device/personal items within reach clutter free environment maintained increased rounding and observation lighting adjusted nonskid shoes/slippers when out of bed safety round/check completed Intervention: Prevent Skin Injury Recent Flowsheet Documentation Taken 03/03/2024 0900 by Cate Contreras RN Body Position: position changed independently Skin Protection: adhesive use limited Device Skin Pressure Protection: adhesive use limited tubing/devices free from skin contact Intervention: Prevent and Manage VTE (Venous Thromboembolism) Risk Recent Flowsheet Documentation Taken 03/03/2024 0900 by Cate Contreras RN VTE Prevention/Management: patient refused intervention SCDs (sequential compression devices) off Intervention: Prevent Infection Recent Flowsheet Documentation Taken 03/03/2024 1705 by Cate Contreras RN Infection Prevention: single patient room provided rest/sleep promoted hand hygiene promoted Taken 03/03/2024 0900 by Cate Contreras RN Infection Prevention: single patient room provided rest/sleep promoted hand hygiene promoted Goal: Optimal Comfort and Wellbeing Outcome: Met Intervention: Monitor Pain and Promote Comfort Recent Flowsheet Documentation Taken 03/03/2024 1616 by Cate Contreras RN Pain Management Interventions: medication (see MAR) Taken 03/03/2024 1311 by Cate Contreras RN Pain Management Interventions: medication (see MAR) Taken 03/03/2024 0800 by Cate Contreras RN Pain Management Interventions: rest shower declines Goal: Readiness for Transition of Care Outcome: Met * Plan of Care - Alicia Schwartz RN - 03/03/2024 4:00 AM CDT Goal Outcome Evaluation: Plan of Care Reviewed With: patient Overall Patient Progress: improvingOverall Patient Progress: improving Outcome Evaluation: Alert. denies,sob,nausea. No BM overnight. PIV SL. Ind in room refuses bed alarm. PRIMARY DIAGNOSIS: Exacerbation of Crohn's OUTPATIENT/OBSERVATION GOALS TO BE MET BEFORE DISCHARGE: ADLs back to baseline: Yes Activity and level of assistance: Ambulating independently. Pain status: Improved but still requiring IV narcotics. Return to near baseline physical activity: Yes Continuous Dryout Operator Helper Nurse Safe discharge environment identified: Yes Barriers to discharge: Yes Vitals are Temp: 98 ??F (36.7 ??C) Temp src: Oral BP: 129/69 Pulse: 83 Resp: 20 SpO2: 96 %. Patient is Alert and Oriented x4. They are independent with no assistive devices . Patient is on Enteric precuations for C-Diff. Pt is a Regular diet. They are complaining of 8/10 pain in their abdomen. Dilaudid given for pain. Patient is Saline locked. Entered by: Alicia Schwartz RN 03/03/2024 6:05 AM Please review provider order for any additional goals. Nurse to notify provider when observation goals have been met and patient is ready for discharge. Problem: Adult Inpatient Plan of Care Goal: Plan of Care Review Description: The Plan of Care Review/Shift note should be completed every shift. The Outcome Evaluation is a brief statement about your assessment that the patient is improving, declining, or no change. This information will be displayed automatically on your shift note. 03/03/2024300 by Alicia Schwartz RN Outcome: Progressing Flowsheets (Taken 03/03/2024300) Outcome Evaluation: Alert. denies,sob,nausea. No BM overnight. PIV SL. Ind in room refuses bed alarm. Plan of Care Reviewed With: patient Overall Patient Progress: improving 03/03/2024299 by Alicia Schwartz RN Outcome: Progressing Goal: Patient-Specific Goal (Individualized) Description: You can add care plan individualizations to a care plan. Examples of Individualizationmight be: Parent requests to be called daily at 9am for status, I have a hard time hearing out of my right ear, or Do not touch me to wake me up as it startles me. 03/03/2024300 by Alicia Schwartz RN Outcome: Progressing 03/03/2024299 by Alicia Schwartz RN Outcome: Progressing Goal: Absence of Hospital-Acquired Illness or Injury 03/03/2024300 by Alicia Schwartz RN Outcome: Progressing 03/03/2024299 by Alicia Schwartz RN Outcome: Progressing Intervention: Identify and Manage Fall Risk Recent Flowsheet Documentation Taken 03/03/2024111 by Alicia Schwartz RN Safety Promotion/Fall Prevention: clutter free environment maintained safety round/check completed Intervention: Prevent Skin Injury Recent Flowsheet Documentation Taken 03/03/2024111 by Alicia Schwartz RN Body Position: position changed independently Intervention: Prevent Infection Recent Flowsheet Documentation Taken 03/03/2024111 by Alicia Schwartz RN Infection Prevention: single patient room provided rest/sleep promoted hand hygiene promoted Goal: Optimal Comfort and Wellbeing 03/03/2024300 by Alicia Schwartz RN Outcome: Progressing 03/03/2024299 by Alicia Schwartz RN Outcome: Progressing Intervention: Monitor Pain and Promote Comfort Recent Flowsheet Documentation Taken 03/03/2024111 by Alicia Schwartz RN Pain Management Interventions: declines Goal: Readiness for Transition of Care 03/03/2024300 by Alicia Schwartz RN Outcome: Progressing 03/03/2024299 by Alicia Schwartz RN Outcome: Progressing Problem: Pain Acute Goal: Optimal Pain Control and Function 03/03/2024300 by Alicia Schwartz RN Outcome: Progressing 03/03/2024299 by Alicia Schwartz RN Outcome: Progressing Intervention: Develop Pain Management Plan Recent Flowsheet Documentation Taken 03/03/2024111 by Alicia Schwartz RN Pain Management Interventions: declines Problem: Skin Injury Risk Increased Goal: Skin Health and Integrity 03/03/2024300 by Alicia Schwartz RN Outcome: Progressing 03/03/2024299 by Alicia Schwartz RN Outcome: Progressing Intervention: Plan: Nurse Driven Intervention: Moisture Management Recent Flowsheet Documentation Taken 03/03/2024111 by Alicia Schwartz RN Moisture Interventions: Encourage regular toileting Intervention: Optimize Skin Protection Recent Flowsheet Documentation Taken 03/03/2024111 by Alicia Schwartz RN Head of Bed (HOB) Positioning: HOB at 20 degrees * Plan of Care - Alicia Schwartz RN - 03/03/2024 12:00 AM CDT Goal Outcome Evaluation: Plan of Care Reviewed With: patient Overall Patient Progress: improvingOverall Patient Progress: improving Outcome Evaluation: Alert. denies,sob,nausea. No BM overnight. PIV SL. Ind in room refuses bed alarm. PRIMARY DIAGNOSIS: Exacerbation of Crohn's OUTPATIENT/OBSERVATION GOALS TO BE MET BEFORE DISCHARGE: ADLs back to baseline: Yes Activity and level of assistance: Ambulating independently. Pain status: Improved but still requiring IV narcotics. Return to near baseline physical activity: Yes Continuous Dryout Operator Helper Nurse Safe discharge environment identified: Yes Barriers to discharge: Yes Entered by: Alicia Schwartz RN 03/03/2024 3:02 AM Please review provider order for any additional goals. Nurse to notify provider when observation goals have been met and patient is ready for discharge. Problem: Adult Inpatient Plan of Care Goal: Plan of Care Review Description: The Plan of Care Review/Shift note should be completed every shift. The Outcome Evaluation is a brief statement about your assessment that the patient is improving, declining, or no change. This information will be displayed automatically on your shift note. 03/03/2024300 by Alicia Schwartz RN Outcome: Progressing Flowsheets (Taken 03/03/2024300) Outcome Evaluation: Alert. denies,sob,nausea. No BM overnight. PIV SL. Ind in room refuses bed alarm. Plan of Care Reviewed With: patient Overall Patient Progress: improving 03/03/2024299 by Alicia Schwartz RN Outcome: Progressing Goal: Patient-Specific Goal (Individualized) Description: You can add care plan individualizations to a care plan. Examples of Individualizationmight be: Parent requests to be called daily at 9am for status, I have a hard time hearing out of my right ear, or Do not touch me to wake me up as it startles me. 03/03/2024300 by Alicia Schwartz RN Outcome: Progressing 03/03/2024299 by Alicia Schwartz RN Outcome: Progressing Goal: Absence of Hospital-Acquired Illness or Injury 03/03/2024300 by Alicia Schwartz RN Outcome: Progressing 03/03/2024299 by Alicia Schwartz RN Outcome: Progressing Intervention: Identify and Manage Fall Risk Recent Flowsheet Documentation Taken 03/03/2024111 by Alicia Schwartz RN Safety Promotion/Fall Prevention: clutter free environment maintained safety round/check completed Intervention: Prevent Skin Injury Recent Flowsheet Documentation Taken 03/03/2024111 by Alicia Schwartz RN Body Position: position changed independently Intervention: Prevent Infection Recent Flowsheet Documentation Taken 03/03/2024111 by Alicia Schwartz RN Infection Prevention: single patient room provided rest/sleep promoted hand hygiene promoted Goal: Optimal Comfort and Wellbeing 03/03/2024300 by Alicia Schwartz RN Outcome: Progressing 03/03/2024299 by Alicia Schwartz RN Outcome: Progressing Intervention: Monitor Pain and Promote Comfort Recent Flowsheet Documentation Taken 03/03/2024111 by Alicia Schwartz RN Pain Management Interventions: declines Goal: Readiness for Transition of Care 03/03/2024300 by Alicia Schwartz RN Outcome: Progressing 03/03/2024299 by Alicia Schwartz RN Outcome: Progressing Problem: Pain Acute Goal: Optimal Pain Control and Function 03/03/2024300 by Alicia Schwartz RN Outcome: Progressing 03/03/2024299 by Alicia Schwartz RN Outcome: Progressing Intervention: Develop Pain Management Plan Recent Flowsheet Documentation Taken 03/03/2024111 by Alicia Schwartz RN Pain Management Interventions: declines Problem: Skin Injury Risk Increased Goal: Skin Health and Integrity 03/03/2024300 by Alicia Schwartz RN Outcome: Progressing 03/03/2024299 by Alicia Schwartz RN Outcome: Progressing Intervention: Plan: Nurse Driven Intervention: Moisture Management Recent Flowsheet Documentation Taken 03/03/2024111 by Alicia Schwartz RN Moisture Interventions: Encourage regular toileting Intervention: Optimize Skin Protection Recent Flowsheet Documentation Taken 03/03/2024111 by Alicia Schwartz RN Head of Bed (HOB) Positioning: HOB at 20 degrees * Plan of Care - Cate Cotnreras RN - 03/02/2024 10:08 PM CDT Pertinent assessments: Assumed care of pt from [id number]. VSS. A&Ox4. Lungs CTA. Bowel sounds active in all quadrants. Tolerating diet. Adequate urinary output. PIV SL between medications. Pain controlled with current regimen and repositioning. Major Shift Events: C. Dif panel ordered, awaiting BM, UAL in room, medications given for pain Treatment Plan: pain management, stool sample collection pending, MNGI following, IV Solumedrol Goal Outcome Evaluation: Plan of Care Reviewed With: patient Overall Patient Progress: improvingOverall Patient Progress: improving Outcome Evaluation: pain well managed with current regimen, awaiting stool sample Problem: Adult Inpatient Plan of Care Goal: Plan of Care Review Description: The Plan of Care Review/Shift note should be completed every shift. The Outcome Evaluation is a brief statement about your assessment that the patient is improving, declining, or no change. This information will be displayed automatically on your shift note. 03/02/20242207 by Cate Contreras RN Outcome: Progressing Flowsheets (Taken 03/02/20242207) Outcome Evaluation: pain well managed with current regimen, awaiting stool sample Plan of Care Reviewed With: patient Overall Patient Progress: improving 03/02/20242200 by Cate Contreras RN Outcome: Progressing Flowsheets (Taken 03/02/20242200) Outcome Evaluation: No BM, pain managed with PO medications Plan of Care Reviewed With: patient Overall Patient Progress: no change 03/02/20241750 by Cate Contreras RN Outcome: Not Progressing Flowsheets (Taken 03/02/20241750) Outcome Evaluation: No BM since stool sample labs ordered, pain managed with PO Medications Plan of Care Reviewed With: patient Overall [...] wake me up as it startles me. 03/02/20242207 by Cate Contreras RN Outcome: Progressing 03/02/20242200 by Cate Contreras RN Outcome: Progressing 03/02/20241750 by Cate Contreras RN Outcome: Not Progressing Goal: Absence of Hospital-Acquired Illness or Injury 03/02/20242207 by Cate Contreras RN Outcome: Progressing 03/02/20242200 by Cate Contreras RN Outcome: Progressing 03/02/20241750 by Cate Contreras RN Outcome: Not Progressing Intervention: Identify and Manage Fall Risk Recent Flowsheet Documentation Taken 03/02/2024 1620 by Cate Contreras RN Safety Promotion/Fall Prevention: assistive device/personal items within reach clutter free environment maintained increased rounding and observation lighting adjusted nonskid shoes/slippers when out of bed safety round/check completed room organization consistent treat reversible contributory factors Intervention: Prevent Skin Injury Recent Flowsheet Documentation Taken 03/02/2024 1620 by Cate Contreras RN Skin Protection: adhesive use limited Device Skin Pressure Protection: adhesive use limited tubing/devices free from skin contact Intervention: Prevent and Manage VTE (Venous Thromboembolism) Risk Recent Flowsheet Documentation Taken 03/02/2024 1620 by Cate Contreras RN VTE Prevention/Management: SCDs (sequential compression devices) off Intervention: Prevent Infection Recent Flowsheet Documentation Taken 03/02/2024 1620 by Cate Contreras RN Infection Prevention: rest/sleep promoted hand hygiene promoted single patient room provided equipment surfaces disinfected Goal: Optimal Comfort and Wellbeing 03/02/20242207 by Cate Contreras RN Outcome: Progressing 03/02/20242200 by Cate Contreras RN Outcome: Progressing 03/02/20241750 by Cate Contreras RN Outcome: Not Progressing Intervention: Monitor Pain and Promote Comfort Recent Flowsheet Documentation Taken 03/02/20242012 by Cate Contreras RN Pain Management Interventions: medication (see MAR) Taken 03/02/20248 by Cate Contreras RN Pain Management Interventions: medication (see MAR) Goal: Readiness for Transition of Care 03/02/20242207 by Cate Contreras RN Outcome: Progressing 03/02/20242200 by Cate Contreras RN Outcome: Progressing 03/02/20241750 by Cate Contreras RN Outcome: Not Progressing * Plan of Care - Cate Contreras RN - 03/02/2024 8:00 PM CDT PRIMARY DIAGNOSIS: GENERIC NURSING OUTPATIENT/OBSERVATION GOALS TO BE MET BEFORE DISCHARGE: ADLs back to baseline: Yes Activity and level of assistance: Ambulating independently. Pain status: Improved-controlled with oral pain medications. 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 Nurse to notify provider when observation goals have been met and patient is ready for discharge. Goal Outcome Evaluation: Plan of Care Reviewed With: patient Overall Patient Progress: no changeOverall Patient Progress: no change Outcome Evaluation: No BM, pain managed with PO medications Problem: Adult Inpatient Plan of Care Goal: Plan of Care Review Description: The Plan of Care Review/Shift note should be completed every shift. The Outcome Evaluation is a brief statement about your assessment that the patient is improving, declining, or no change. This information will be displayed automatically on your shift note. 03/02/20242200 by Cate Contreras RN Outcome: Progressing Flowsheets (Taken 03/02/20242200) Outcome Evaluation: No BM, pain managed with PO medications Plan of Care Reviewed With: patient Overall Patient Progress: no change 03/02/20241750 by Cate Contreras RN Outcome: Not Progressing Flowsheets (Taken 03/02/20241750) Outcome Evaluation: No BM since stool sample labs ordered, pain managed with PO Medications Plan of Care Reviewed With: patient Overall [...] wake me up as it startles me. 03/02/20242200 by Cate Contreras RN Outcome: Progressing 03/02/20241750 by Cate Contreras RN Outcome: Not Progressing Goal: Absence of Hospital-Acquired Illness or Injury 03/02/20242200 by Cate Contreras RN Outcome: Progressing 03/02/20241750 by Cate Contreras RN Outcome: Not Progressing Intervention: Identify and Manage Fall Risk Recent Flowsheet Documentation Taken 03/02/20241619 by Cate Contreras RN Safety Promotion/Fall Prevention: assistive device/personal items within reach clutter free environment maintained increased rounding and observation lighting adjusted nonskid shoes/slippers when out of bed safety round/check completed room organization consistent treat reversible contributory factors Intervention: Prevent Skin Injury Recent Flowsheet Documentation Taken 03/02/20241619 by Cate Contreras RN Skin Protection: adhesive use limited Device Skin Pressure Protection: adhesive use limited tubing/devices free from skin contact Intervention: Prevent and Manage VTE (Venous Thromboembolism) Risk Recent Flowsheet Documentation Taken 03/02/2024 1620 by Cate Contreras RN VTE Prevention/Management: SCDs (sequential compression devices) off Intervention: Prevent Infection Recent Flowsheet Documentation Taken 03/02/2024 1620 by Cate Contreras RN Infection Prevention: rest/sleep promoted hand hygiene promoted single patient room provided equipment surfaces disinfected Goal: Optimal Comfort and Wellbeing 03/02/20242200 by Cate Contreras RN Outcome: Progressing 03/02/2024 1751 by Cate Contreras RN Outcome: Not Progressing Intervention: Monitor Pain and Promote Comfort Recent Flowsheet Documentation Taken 03/02/20242012 by Cate Contreras RN Pain Management Interventions: medication (see MAR) Taken 03/02/2024 1628 by Cate Contreras RN Pain Management Interventions: medication (see MAR) Goal: Readiness for Transition of Care 03/02/20242200 by Cate Contreras RN Outcome: Progressing 03/02/2024 175 by Cate Contreras RN Outcome: Not Progressing * Plan of Care - Cate Contreras RN - 03/02/2024 4:00 PM CDT PRIMARY DIAGNOSIS: GENERIC NURSING OUTPATIENT/OBSERVATION GOALS TO BE MET BEFORE DISCHARGE: ADLs back to baseline: Yes Activity and level of assistance: Ambulating independently. Pain status: Improved-controlled with oral pain medications. Return to near baseline physical activity: Yes Continuous Dryout Operator Helper Nurse Safe discharge environment identified: Yes Barriers to discharge: Yes Entered by: AVI FISCHER RN 03/02/2024 5:51 PM Please review provider order for any additional goals. Nurse to notify provider when observation goals have been met and patient is ready for discharge. Goal Outcome Evaluation: Plan of Care Reviewed With: patient Overall Patient Progress: no changeOverall Patient Progress: no change Outcome Evaluation: No BM since stool sample labs ordered, pain managed with PO Medications Problem: Adult Inpatient Plan of Care Goal: Plan of Care Review Description: The Plan of Care Review/Shift note should be completed every shift. The Outcome Evaluation is a brief statement about your assessment that the patient is improving, declining, or no change. This information will be displayed automatically on your shift note. Outcome: Not Progressing Flowsheets (Taken 03/02/2024 1751) Outcome Evaluation: No BM since stool sample labs ordered, pain managed with PO Medications Plan of Care Reviewed With: patient Overall [...] Manage Fall Risk Recent Flowsheet Documentation Taken 03/02/2024 1620 by Cate Contreras RN Safety Promotion/Fall Prevention: assistive device/personal items within reach clutter free environment maintained increased rounding and observation lighting adjusted nonskid shoes/slippers when out of bed safety round/check completed room organization consistent treat reversible contributory factors Taken 03/02/2024 0800 by Cate Contreras RN Safety Promotion/Fall Prevention: assistive device/personal items within reach clutter free environment maintained increased rounding and observation lighting adjusted nonskid shoes/slippers when out of bed safety round/check completed room organization consistent treat reversible contributory factors Intervention: Prevent Skin Injury Recent Flowsheet Documentation Taken 03/02/2024 1620 by Cate Contreras RN Skin Protection: adhesive use limited Device Skin Pressure Protection: adhesive use limited tubing/devices free from skin contact Taken 03/02/2024 0800 by Cate Contreras RN Body Position: position changed independently Skin Protection: adhesive use limited Device Skin Pressure Protection: adhesive use limited tubing/devices free from skin contact Intervention: Prevent and Manage VTE (Venous Thromboembolism) Risk Recent Flowsheet Documentation Taken 03/02/2024 1620 by Cate Contreras RN VTE Prevention/Management: SCDs (sequential compression devices) off Taken 03/02/2024 0800 by Cate Contreras RN VTE Prevention/Management: SCDs (sequential compression devices) off Intervention: Prevent Infection Recent Flowsheet Documentation Taken 03/02/2024 1620 by Cate Contreras RN Infection Prevention: rest/sleep promoted hand hygiene promoted single patient room provided equipment surfaces disinfected Taken 03/02/2024 0700 by Cate Contreras RN Infection Prevention: rest/sleep promoted hand hygiene promoted single patient room provided equipment surfaces disinfected Goal: Optimal Comfort and Wellbeing Outcome: Not Progressing Intervention: Monitor Pain and Promote Comfort Recent Flowsheet Documentation Taken 03/02/2024 1628 by Cate Contreras RN Pain Management Interventions: medication (see MAR) Taken 03/02/2024 0756 by Cate Contreras RN Pain Management Interventions: medication (see MAR) Goal: Readiness for Transition of Care Outcome: Not Progressing * Utilization Review - Rosy Sanchez MD - 03/02/2024 12:45 PM CDT Admission Status; Secondary Review Determination [...] status changed to observation. RATIONALE FOR DETERMINATION 63-year-old female with a history of fibrostenotic Crohn's disease, s/p resection, currently on Remicade 10 mg/kg every 4 weeks, presented with worsening abdominal pain and diarrhea since last week. Her last infusion was on Friday. She experienced severe mid-abdominal pain radiating to herright mid-back, nausea, and multiple non-bloody bowel movements. A CT scan showed new/worsened transverse colitis. She was initially hypertensive in the ER, with otherwise stable vitals and normal lab results, except for mild renal insufficiency (creatinine 1.09). Due to her inability to tolerate oral intake, she was admitted for IV steroid treatment. She is feeling better today with pain improvement and one non-bloody BM. Stool tests to rule out infection were ordered, and she might be discharged on oral steroids. The severity of illness, intensity of service provided, expected LOS and risk for adverse outcome make the care appropriate for further observation; however, doesn't meet criteria for hospital inpatient admission. Dr Shaikh notified of this determination. This document was produced using voice recognition software. The information on this document is developed [...] 1 and Chapter 6, section 70.4. Sincerely, ROSY SANCHEZ MD System Tax RepresentativeLocal Bulk Driver [facility]. * Pharmacy-Admission Medication History - Fabiana Canada RPH - 03/02/2024 9:57 AM CDT Pharmacist Admission Medication History Admission medication history is complete. The information provided in this note is only as accurateas the sources available at the time of the update. Information Source(s): Patient via in-person Pertinent Information: - Changes made to HOST/HOSTESS GROUND medication list: Added: L-lysine, zolpidem Deleted: bisacodyl (suppository), hydroxyzine, prednisone Changed: infliximab q8wk to q4wk Allergies reviewed with patient and updates made in EHR: No, reviewed on admission. Medication History Completed By: Fabiana Canada RPH 03/02/2024 9:57 AM HOST[employer] Med List Medication Sig Last Dose acetaminophen (TYLENOL) 500 MG tablet Take 1-2 tablets (500-1,000 mg) by mouth every 6 hours as needed for mild pain Unknown at - albuterol (PROAIR HFA/PROVENTIL HFA/VENTOLIN HFA) 108 (90 Base) MCG/ACT inhaler Inhale 2 puffs intothe lungs every 6 hours as needed for shortness of breath, wheezing or cough Unknown at - cyanocobalamin (CYANOCOBALAMIN) 1000 MCG/ML injection Inject 1,000 mcg as directed every 30 days 02/24/2024 dicyclomine (BENTYL) 20 MG tablet Take 1 tablet (20 mg) by mouth 4 times daily (before meals and nightly) 03/01/2024 at - esomeprazole (NEXIUM) [address] capsule Take 40 mg by mouth 2 times daily (before meals) Take 30-60 minutes before eating. 03/01/2024 at am famotidine (PEPCID) 40 MG tablet Take 40 mg by mouth At Bedtime 02/29/2024 at HS inFLIXimab (REMICADE IV) Inject 10 mg/kg into the vein every 4 weeks 02/27/2024 l-lysine HCl 500 MG TABS tablet Take 1,000 mg by mouth daily 03/01/2024 medical cannabis (Patient's own supply) Take 1 Dose by mouth See Admin Instructions (The purpose ofthis order is to document that the patient reports taking medical cannabis. This is not a prescription, and is not used to certify that the patient has a qualifying medical condition.) 25 MG EDIBLE Unknown methocarbamol (ROBAXIN) 500 MG tablet Take 1 tablet (500 mg) by mouth 4 times daily as needed for muscle spasms (Patient taking differently: Take 1,000 mg by mouth 2 times daily) 03/01/2024 at AM, 1000 mg montelukast (SINGULAIR) 10 MG tablet Take 10 mg by mouth At Bedtime 02/29/2024 at HS nortriptyline (PAMELOR) 25 MG capsule Take 25 mg by mouth At Bedtime 02/29/2024 at HS simethicone (MYLICON) 80 MG chewable tablet Take 1 tablet (80 mg) by mouth every 6 hours as needed for cramping Unknown traZODone (DESYREL) 100 MG tablet Take 200 mg by mouth At Bedtime 02/29/2024 vitamin C (ASCORBIC ACID) 1000 MG TABS Take 1,000 mg by mouth daily Past Week Vitamin D3 (CHOLECALCIFEROL) 25 mcg (1000 units) tablet Take 25 mcg by mouth daily 03/01/2024 zolpidem (AMBIEN) 5 MG tablet Take 5 mg by mouth nightly as needed Unknown at - * Plan of Care - Alicia cShwartz RN - 03/02/2024 6:43 AM CDT Goal Outcome Evaluation: Plan of Care Reviewed With: patient Overall Patient Progress: improvingOverall Patient Progress: improving Outcome Evaluation: Alert. denies nausea,sob, or chest pain. C/o of abdomina pain prn med given. PIV infusing LR@100. Ind in the room refuses bed alarm. Problem: Adult Inpatient Plan of Care Goal: Plan of Care Review Description: The Plan of Care Review/Shift note should be completed every shift. The Outcome Evaluation is a brief statement about your assessment that the patient is improving, declining, or no change. This information will be displayed automatically on your shift note. 03/02/2024457 by Alicia Schwartz RN Outcome: Progressing Flowsheets (Taken 03/02/2024457) Outcome Evaluation: Alert. denies nausea,sob, or chest pain. C/o of abdomina pain prn med given. PIV infusing LR@100. Ind in the room refuses bed alarm. Plan of Care Reviewed With: patient Overall Patient Progress: improving 03/02/2024456 by Alicia Schwartz RN Outcome: Progressing Goal: Patient-Specific Goal (Individualized) Description: You can add care plan individualizations to a care plan. Examples of Individualizationmight be: Parent requests to be called daily at 9am for status, I have a hard time hearing out of my right ear, or Do not touch me to wake me up as it startles me. 03/02/2024457 by Alicia Schwartz RN Outcome: Progressing 03/02/2024456 by Alicia Schwartz RN Outcome: Progressing Goal: Absence of Hospital-Acquired Illness or Injury 03/02/2024457 by Alicia Schwartz RN Outcome: Progressing 03/02/2024456 by Alicia Schwartz RN Outcome: Progressing Intervention: Identify and Manage Fall Risk Recent Flowsheet Documentation Taken 03/02/202426 by Alicia Schwartz RN Safety Promotion/Fall Prevention: clutter free environment maintained safety round/check completed Intervention: Prevent Skin Injury Recent Flowsheet Documentation Taken 03/02/202426 by Alicia Schwartz RN Body Position: position changed independently Intervention: Prevent Infection Recent Flowsheet Documentation Taken 03/02/2024 002 by Alicia Schwartz RN Infection Prevention: single patient room provided hand hygiene promoted Goal: Optimal Comfort and Wellbeing 03/02/2024457 by Alicia Schwartz RN Outcome: Progressing 03/02/2024456 by Alicia Schwartz RN Outcome: Progressing Intervention: Monitor Pain and Promote Comfort Recent Flowsheet Documentation Taken 03/02/2024354 by Alicia Schwartz RN Pain Management Interventions: medication (see MAR) Goal: Readiness for Transition of Care 03/02/2024457 by Alicia Schwartz RN Outcome: Progressing 03/02/2024456 by Alicia Schwartz RN Outcome: Progressing Problem: Pain Acute Goal: Optimal Pain Control and Function 03/02/2024457 by Alicia Schwartz RN Outcome: Progressing 03/02/2024456 by Alicia Schwartz RN Outcome: Progressing Intervention: Develop Pain Management Plan Recent Flowsheet Documentation Taken 03/02/2024354 by Alicia Schwartz RN Pain Management Interventions: medication (see MAR) Problem: Skin Injury Risk Increased Goal: Skin Health and Integrity 03/02/2024457 by Alicia Schwartz RN Outcome: Progressing 03/02/2024456 by Alicia Schwartz RN Outcome: Progressing Intervention: Plan: Nurse Driven Intervention: Moisture Management Recent Flowsheet Documentation Taken 03/02/202426 by Alicia Schwartz RN Moisture Interventions: Encourage regular toileting * Plan of Care - America Miramontes RN - 03/01/2024 11:37 PM CDT To Do: End of Shift Summary For vital signs and complete assessments, please see documentation flowsheets. Pertinent assessments: Pt admitted to unit at 2230. A&Ox4, VSS on RA. Afebrile. Rates pain in abdomen at 3, received pain medication in ED. Endorses nausea, zofran given in ED. Denies SOB. SBA inthe room. Regular diet. LPIV SL. Bed alarm on for safety. Major Shift Events Admitted to unit. Treatment Plan: Pain and nausea management. Bedside Nurse: America Miramontes RN Problem: Adult Inpatient Plan of Care Goal: Plan of Care Review Description: The Plan of Care Review/Shift note should be completed every shift. The Outcome Evaluation is a brief statement about your assessment that the patient is improving, declining, or no change. This information will be displayed automatically on your shift note. Outcome: Progressing Flowsheets (Taken 03/01/2024 2337) Outcome Evaluation: Pain and nausea improving with medication intervention. Plan of Care Reviewed With: patient Overall [...] Manage Fall Risk Recent Flowsheet Documentation Taken 03/01/20242228 by America Miramontes RN Safety Promotion/Fall Prevention: clutter free environment maintained nonskid shoes/slippers when out of bed Intervention: Prevent and Manage VTE (Venous Thromboembolism) Risk Recent Flowsheet Documentation Taken 03/01/20242228 by America Miramontes RN VTE Prevention/Management: SCDs (sequential compression devices) off Intervention: Prevent Infection Recent Flowsheet Documentation Taken 03/01/20242228 by America Miramnotes RN Infection Prevention: equipment surfaces disinfected hand hygiene promoted single patient room provided rest/sleep promoted Goal: Optimal Comfort and Wellbeing Outcome: Progressing Intervention: Monitor Pain and Promote Comfort Recent Flowsheet Documentation Taken 03/01/20242228 by America Miramontes RN Pain Management Interventions: medication (see MAR) Goal: Readiness for Transition of Care Outcome: Progressing Intervention: Mutually Develop Transition Plan Recent Flowsheet Documentation Taken 03/01/20242232 by America Miramontes RN Equipment Currently Used at Home: none Problem: Pain Acute Goal: Optimal Pain Control and Function Outcome: Progressing Intervention: Develop Pain Management Plan Recent Flowsheet Documentation Taken 03/01/20242228 by America Miramontes RN Pain Management Interventions: medication (see MAR) Intervention: Prevent or Manage Pain Recent Flowsheet Documentation Taken 03/01/20242228 by America Miramontes RN Medication Review/Management: medications reviewed high-risk medications identified Problem: Fall Injury Risk Goal: Absence of Fall and Fall-Related Injury Outcome: Progressing Intervention: Identify and Manage Contributors Recent Flowsheet Documentation Taken 03/01/20242228 by America Miramontes RN Medication Review/Management: medications reviewed high-risk medications identified Intervention: Promote Injury-Free Environment Recent Flowsheet Documentation Taken 03/01/20242228 by America Miramontes RN Safety Promotion/Fall Prevention: clutter free environment maintained nonskid shoes/slippers when out of bed Problem: Skin Injury Risk Increased Goal: Skin Health and Integrity Outcome: Progressing Intervention: Plan: Nurse Driven Intervention: Moisture Management Recent Flowsheet Documentation Taken 03/01/20242228 by America Miramontes RN Moisture Interventions: Encourage regular toileting No brief in bed Incontinence pad Goal Outcome Evaluation: Plan of Care Reviewed With: patient Overall Patient Progress: improvingOverall Patient Progress: improving Outcome Evaluation: Pain and nausea improving with medication intervention. documented in this encounter Plan of Treatment Not on file documented as of this encounter Procedures Procedure Name Priority Date/Time Associated Diagnosis Comments CBC WITH PLATELETS AND DIFFERENTIAL Routine 03/03/2024 6:57 AM CDT CBC WITH PLATELETS & DIFFERENTIAL Routine 03/03/2024 6:57 AM CDT CRP INFLAMMATION Routine 03/03/2024 6:57 AM CDT BASIC METABOLIC PANEL Routine 03/03/2024 6:57 AM CDT HEPATIC FUNCTION PANEL Routine 03/02/2024 6:21 AM CDT BASIC METABOLIC PANEL Routine 03/02/2024 6:21 AM CDT CBC WITH PLATELETS Routine 03/02/2024 6: [address] ABDOMEN PELVIS W CONTRAST STAT 03/01/2024 6:26 PM CDT ROUTINE UA WITH MICROSCOPIC REFLEX TO CULTURE STAT 03/01/2024 3:02 PM CDT EKG 12-LEAD, TRACING ONLY STAT 03/01/2024 2:54 PM CDT EXTRA TUBE STAT 03/01/2024 2:24 PM CDT EXTRA RED TOP TUBE STAT 03/01/2024 2: 24 PM CDT EXTRA BLUE TOP TUBE STAT 03/01/2024 2 :24 PM CDT CBC WITH PLATELETS AND DIFFERENTIAL STAT 03/01/2024 2:24 PM CDT CBC WITH PLATELETS & DIFFERENTIAL STAT 03/01/2024 2:24 PM CDT MAGNESIUM STAT 03/01/2024 2:24 PM CDT CRP INFLAMMATION Add-On 03/01/2024 2:24 PM CDT BASIC METABOLIC PANEL STAT 03/01/2024 2:24 PM CDT documented in this encounter Results * (ABNORMAL) CBC with platelets and differential (03/03/2024 6:57 AM CDT) [facility] [address] WBC Count 10.4 4.0 - 11.0 10e3/uL 03/03/2024 7:07 AM CDT [facility] RBC Count 4.32 3.80 - 5.20 10e6/uL 03/03/2024 7:07 AM CDT [facility] Hemoglobin 12.5 11.7 - 15.7 g/dL 03/03/2024 7:07 AM CDT [facility] Hematocrit 38.3 35.0 - 47.0 % 03/03/2024 7:07 AM CDT [facility] MCV 89 78 - 100 fL 03/03/2024 7:07 AM CDT [facility] MCH 28.9 26.5 - 33.0 pg 03/03/2024 7:07 AM CDT [facility] MCHC 32.6 31.5 - 36.5 g/dL 03/03/2024 7:07 AM CDT [facility] RDW 13.2 10.0 - 15.0 % 03/03/2024 7:07 AM CDT [facility] Platelet Count 277 150 - 450 10e3/uL 03/03/2024 7:07 AM CDT [facility] % Neutrophils 83 % 03/03/2024 7:07 AM CDT [facility] % Lymphocytes 12 % 03/03/2024 7:07 AM CDT [facility] % Monocytes 4 % 03/03/2024 7:07 AM CDT [facility] % Eosinophils 0 % 03/03/2024 7:07 AM CDT [facility] % Basophils 0 % 03/03/2024 7:07 AM CDT [facility] % Immature Granulocytes 1 % 03/03/2024 7:07 AM CDT [facility] NRBCs per 100 WBC 0 <1 /100 024 7:07 AM CDT [facility] Absolute Neutrophils 8.6(H) 1.6 - 8.3 10e3/uL 03/03/2024 7:07 AM CDT [facility] Absolute Lymphocytes 1.2 0.8 - 5.3 10e3/uL 03/03/2024 7:07 AM CDT [facility] Absolute Monocytes 0.5 0.0 - 1.3 10e3/uL 03/03/2024 7:07 AM CDT [facility] Absolute Eosinophils 0.0 0.0 - 0.7 10e3/uL 03/03/2024 7:07 AM CDT [facility] Absolute Basophils 0.0 0.0 - 0.2 10e3/uL 03/03/2024 7:07 AM CDT [facility] Absolute Immature Granulocytes 0.1 <=0.4 10e3/uL 03/03/2024 7:07 AM CDT [facility] Absolute NRBCs 0.0 10e3/uL 03/03/2024 7:07 AM CDT [facility] Blood STRUCTURE OF RIGHT UPPER LIMB / Unknown Venipuncture / Unknown 03/03/2024 6:57 AM CDT 03/03/2024 7:03 AM CDT Boom Shaikh MD LAB - BLOOD ORDERABL ES LABORATORY [facility] [address] Lab (1st floor, no room number) [place] [address] * CRP inflammation (03/03/2024 6:57 AM CDT) CRP Inflammation <3.00 <5.00 mg/L 03/03/20 7:36 AM CDT [facility] Blood STRUCTURE OF RIGHT UPPER LIMB / Unknown Venipuncture / Unknown 03/03/2024 6:57 AM CDT 03/03/2024 7:03 AM CDT Boom Shaikh MD LAB - BLOOD ORDERABL ES Performing Organization Address [facility] Co de Phone Number LABORATORY [facility] [address] Lab (1st floor, no room number) [place] [phone] * (ABNORMAL) Basic metabolic panel (03/03/2024 6:57 AM CDT) Sodium 140 135 - 145 mmol/L 03/03/2024 7:36 AM CDT [facility] Comment:Reference intervals for this test were updated on 06/03/2023 to more accurately reflect our healthy population. There may be differences in the flagging of prior results with similar values performed with this method. Interpretation of those prior results can be made in the context of the updated reference intervals. Potassium 4.5 3.4 - 5.3 mmol/L 03/03/2024 7:36 AM CDT [facility] Chloride 104 98 - 107 mmol/L 03/03/2024 7:36 AM CDT [facility] Carbon Dioxide (CO2) 25 22 - 29 mmol/L 03/03/2024 7:36 AM CDT [facility] Anion Gap 11 7 - 15 mmol/L 03/03/2024 7:36 AM CDT [facility] Urea Nitrogen 12.2 8.0 - 23.0 mg/dL 03/03/2024 7:36 AM CDT [facility] Creatinine 0.96(H) 0.51 - 0.95 mg/dL 03/03/2024 7:36 AM CDT [facility] GFR Estimate 66 >60 mL/min/1. 73m2 03/03/2024 7:36 AM CDT [facility] Comment:eGFR calculated us2020 CKD-EPI equation. Calcium 9.2 8.8 - 10.2 mg/dL 03/03/2024 7:36 AM CDT [facility] Glucose 144(H) 70 - 99 mg/dL 03/03/2024 7:36 AM CDT [facility] Blood STRUCTURE OF RIGHT UPPER LIMB / Unknown Venipuncture / Unknown 03/03/2024 6:57 AM CDT 03/03/2024 7:03 AM CDT Boom Shaikh MD LAB - BLOOD ORDERABL ES [facility] Lab [address] [facility] Lab (1st floor, no room number) [place] [address] * CBC with platelets (03/02/2024 6:21 AM CDT) WBC Count 8.2 4.0 - 11.0 10e3/uL 03/02/2024 6:31 AM CDT [facility] RBC Count 4.42 3.80 - 5.20 10e6/uL 03/02/2024 6:31 AM CDT [facility] Hemoglobin 12.8 11.7 - 15.7 g/dL 03/02/2024 6:31 AM CDT [facility] Hematocrit 38.9 35.0 - 47.0 % 03/02/2024 6:31 AM CDT [facility] MCV 88 78 - 100 fL 03/02/2024 6:31 AM CDT [facility] MCH 29.0 26.5 - 33.0 pg 03/02/2024 6:31 AM CDT [facility] MCHC 32.9 31.5 - 36.5 g/dL 03/02/2024 6:31 AM CDT [facility] RDW 12.8 10.0 - 15.0 % 03/02/2024 6:31 AM CDT [facility] Platelet Count 243 150 - 450 10e3/uL 03/02/2024 6:31 AM CDT [facility] Blood STRUCTURE OF RIGHT HAND / Unknown Venipuncture / Unknown 03/02/2024 6:21 AM CDT 03/02/2024 6:27 AM CDT Carolin Harris PA-C LAB - BLOOD ORDER NATALIIA [facility] Lab [address] Lab (1st floor, no room number) [place] [address], [facility] * (ABNORMAL) Hepatic panel (03/02/2024 6:21 AM CDT) [facility] [address] Protein Total 6.2(L) 6.4 - 8.3 g/dL 03/02/2024 6:53 AM CDT [facility] Albumin 4.0 3.5 - 5.2 g/dL 03/02/2024 6:53 AM CDT [facility] Bilirubin Total 0.6 <=1.2 mg/dL 03/02/2024 6:53 AM CDT [facility] Alkaline Phosphatase 80 40 - 150 U/L 03/02/2024 6:53 AM CDT [facility] AST 19 0 - 45 U/L 03/02/2024 6:53 AM CDT [facility] Comment:Reference intervals for this test were updated on 02/17/2023 to more accurately reflect our healthy population. There may be differences in the flagging of prior results with similar values performed with this method. Interpretation of those prior results can be made in the context of the updated reference intervals. ALT 19 0 - 50 U/L 03/02/2024 6:53 AM CDT [facility] Comment:Reference intervals for this test were updated on 02/17/2023 to more accurately reflect our healthy population. There may be differences in the flagging of prior results with similar values performed with this method. Interpretation of those prior results can be made in the context of the updated reference intervals. Bilirubin Direct <0.20 0.00 - 0.30 mg/dL 03/02/2024 6:53 AM CDT [facility] Blood STRUCTURE OF RIGHT HAND / Unknown Venipuncture / Unknown 03/02/2024 6:21 AM CDT 03/02/2024 6:27 AM CDT Carolin Harris PA-C LAB - BLOOD ORDER NATALIIA [facility] Lab [address] Lab (1st floor, no room number) [place] [address] * (ABNORMAL) Basic metabolic panel (03/02/2024 6:21 AM CDT) Sodium 138 135 - 145 mmol/L 03/02/2024 6:53 AM CDT [facility] Comment:Reference intervals for this test were updated on 06/03/2023 to more accurately reflect our healthy population. There may be differences in the flagging of prior results with similar values performed with this method. Interpretation of those prior results can be made in the context of the updated reference intervals. Potassium 4.7 3.4 - 5.3 mmol/L 03/02/2024 6:53 AM CDT LABORATORY Chloride 105 98 - 107 mmol/L 03/02/2024 6:53 AM CDT LABORATORY Carbon Dioxide (CO2) 22 22 - 29 mmol/L 03/02/2024 6:53 AM CDT LABORATORY Anion Gap 11 7 - 15 mmol/L 03/02/2024 6:53 AM CDT LABORATORY Urea Nitrogen 7.4(L) 8.0 - 23.0 mg/dL 03/02/2024 6:53 AM CDT LABORATORY Creatinine 0.82 0.51 - 0.95 mg/dL 03/02/2024 6:53 AM CDT LABORATORY GFR Estimate 79 >60 mL/min/1. 73m2 03/02/2024 6:53 AM CDT [facility] Comment:eGFR calculated usin g 2020 CKD-EPI equation. Calcium 8.9 8.8 - 10.2 mg/dL 03/02/2024 6:53 AM CDT LABORATORY Glucose 122(H) 70 - 99 mg/dL 03/02/2024 6:53 AM CDT [facility] Blood STRUCTURE OF RIGHT HAND / Unknown Venipuncture / Unknown 03/02/2024 6:21 AM CDT 03/02/2024 6:27 AM CDT Carolin WEST-C LAB - BLOOD ORDER NATALIIA [facility] Lab [address] [facility] Lab (1st floor, no room number) [place] [address], [facility] * CT Abdomen Pelvis w Contrast (03/01/2024 6:26 PM CDT) Anatomical Region Laterality Modality Abdomen/Pelvis, SUBRAD CT TIFFANIE DY, UMP CT ABDOMEN PELVIS, RAD CT Computed Tomography 03/01/2024 6:26 PM CDT Impressions 03/01/2024 7:15 PM CDT IMPRESSION: 1. ??Likely transverse colitis, new/worsened since prior exam, most likely related to known inflammatory bowel disease. 2. ??No evidence of bowel obstruction or penetrating disease. Narrative 03/01/2024 7:15 PM CDT EXAM: CT ABDOMEN PELVIS W CONTRAST LOCATION: [facility] DATE: 03/01/2024 INDICATION: RLQ and right sided abd pain; Hx Crohn's; likely flare COMPARISON: CT 11/29/2023, MRI 12/03/2023 TECHNIQUE: CT scan of the abdomen and pelvis was performed following injection of IV contrast. Multiplanar reformats were obtained. Dose reduction techniques were used. CONTRAST: 76mL Isovue 370 FINDINGS: LOWER CHEST: Unremarkable. HEPATOBILIARY: Cholecystectomy. Mild extrahepatic biliary ductal dilation is stable from prior exam, likely related to reservoir effect. PANCREAS: Normal. SPLEEN: Normal. ADRENAL GLANDS: Normal. KIDNEYS/BLADDER: Prior right nephrectomy. No left hydronephrosis. Urinary bladder is unremarkable. BOWEL: Prior ileocecectomy. The transverse colon is relatively featureless with subtle wall thickening, mucosal hyperenhancement and surrounding fat stranding, new/increased in comparison to prior exam. No evidence of bowel obstruction, gross perforation or evidence of penetrating disease. LYMPH NODES: No suspicious lymphadenopathy. VASCULATURE: Scattered calcified atherosclerosis. PELVIC ORGANS: Hysterectomy. MUSCULOSKELETAL: No acute bony abnormality. Procedure Note Maikel Gooden MD - 03/01/2024 EXAM: CT ABDOMEN PELVIS W CONTRAST LOCATION: [facility] DATE: 03/01/2024 INDICATION: RLQ and right sided abd pain; Hx Crohn's; likely flare COMPARISON: CT 11/29/2023, MRI 12/03/2023 TECHNIQUE: CT scan of the abdomen and pelvis was performed followinginjection of IV contrast. Multiplanar reformats were obtained. Dosereduction techniques were used. CONTRAST: 76mL Isovue 370 FINDINGS: LOWER CHEST: Unremarkable. HEPATOBILIARY: Cholecystectomy. Mild extrahepatic biliary ductal dilationis stable from prior exam, likely related to reservoir effect. PANCREAS: Normal. SPLEEN: Normal. ADRENAL GLANDS: Normal. KIDNEYS/BLADDER: Prior right nephrectomy. No left hydronephrosis. Urinarybladder is unremarkable. BOWEL: Prior ileocecectomy. The transverse colon is relatively featurelesswith subtle wall thickening, mucosal hyperenhancement and surrounding fatstranding, new/increased in comparison to prior exam. No evidence of bowelobstruction, gross perforation or evidence of penetrating disease. LYMPH NODES: No suspicious lymphadenopathy. VASCULATURE: Scattered calcified atherosclerosis. PELVIC ORGANS: Hysterectomy. MUSCULOSKELETAL: No acute bony abnormality. IMPRESSION: 1. Likely transverse colitis, new/worsened since prior exam, most likelyrelated to known inflammatory bowel disease. 2. No evidence of bowel obstruction or penetrating disease. Philipp Schneider DO IMG CT ORDERABLE S * (ABNORMAL) UA with Microscopic reflex to Culture (03/01/2024 3:02 PM CDT) Color Urine Straw Colorless, Straw, Light Yellow, Yellow 03/01/2024 3:18 PM CDT LABORATORY Appearance Urine Clear Clear 03/01/20 3:18 PM CDT [facility] Glucose Urine Negative Negative mg/dL 03/01/2024 3:18 PM CDT [facility] Bilirubin Urine Negative Negative 3:18 PM CDT [facility] Ketones Urine Negative Negative mg/dL 03/01/2024 3:18 PM CDT LABORATORY Specific [place] Urine 1.005 1.003 - 1.035 03/01/2024 3:18 PM CDT [facility] Blood Urine Negative Negative 03/01/2024 3:18 PM CDT LABORATORY pH Urine 5.5 5.0 - 7.0 03/01/2024 3:18 PM CDT [facility] Protein Albumin Urine Negative Negative mg/dL 03/01/2024 3:18 PM CDT [facility] Urobilinogen Urine Normal Normal, 2.0 mg/dL 03/01/2024 3:18 PM CDT [facility] Nitrite Urine Negative Negative 03/01/2024 3:18 PM CDT [facility] Leukocyte Esterase Urine Negative Negative 03/01/2024 3:18 PM CDT [facility] Bacteria Urine Few(A) None Seen /HPF 03/01/2024 3:18 PM CDT [facility] RBC Urine <1 <=2 /HPF 03/01/2024 3:18 PM CDT [facility] WBC Urine <1 <=5 /HPF 03/01/2024 3:18 PM CDT [facility] Urine URINE SPECIMEN OBTAINED BY CLEAN CATCH PROCEDURE / Unknown Non-blood Collection / Unknown 03/01/2024 3:02 PM CDT 03/01/2024 3:12 PM CDT Narrative [facility] - 03/01/2024 3:18 PM CDT Urine Culture not indicated Philipp Schneider DO LAB - URINE RUSS SINGH LABORATORY [facility] Lab [address] Lab (1st floor, no room number) [place] [address] * EKG 12 lead (03/01/2024 2:54 PM CDT) Systolic Blood Pressure mmHg RADIOLOGY RESULTS Diastolic Blood Pressure mmHg RADIOLOGY RESULTS Ventricular Rate 86 BPM RAD IOLOGY RESULTS Atrial Rate 86 BPM RADIOLOG Y RESULTS VA Interval 138 ms RADIOLOG Y RESULTS QRS Duration 84 ms RADIOLO GY RESULTS QT 358 ms RADIOLOGY RESULTS QTc 428 ms RADIOLOGY RESULTS P [place] 40 degrees RADIOLOGY RESULTS R AXIS -11 degrees RADIOLOGY RESULTS T [place] 50 degrees RADIOLOGY RESULTS Interpretation ECG Sinus rhythm Minimal voltage criteria for LVH, may be normal variant ( R in aVL ) Borderline ECG When compared with ECG of 31-MAR-2023 20:17, No significant change was found Unconfirmed report - interpretation of this ECG is computer generated - see medical record for final interpretation Confirmed by - EMERGENCY ROOM, PHYSICIAN ([id number]), assistant film editor Issa Ventura ([id number]) on 03/01/2024 3:16:11 PM RADIOLOGY RESULTS 03/01/2024 2:54 PM CDT 03/01/2024 3:16 PM CDT Philipp Schneider DO ECG ORDERABLES RADIOLOGY RESULTS * CRP inflammation (03/01/2024 2:24 PM CDT) CRP Inflammation <3.00 <5.00 mg/L 03/02/20 2:18 AM CDT [facility] Blood STRUCTURE OF LEFT UPPER LIMB / Unknown Venipuncture / Unknown 03/01/2024 2:24 PM CDT 03/01/2024 2:28 PM CDT Carolin WEST-C LAB - BLOOD ORDER NATALIIA Performing Organization Address City/[facility] Co de Phone Number [facility] Lab [address] Lab (1st floor, no room number) [address] * Magnesium (03/01/2024 2:24 PM CDT) Magnesium 2.1 1.7 - 2.3 mg/dL 03/01/2024 4:40 PM CDT [facility] Blood STRUCTURE OF LEFT UPPER LIMB / Unknown Venipuncture / Unknown 03/01/2024 2:24 PM CDT 03/01/2024 2:28 PM CDT Philipp Schneider DO LAB - BLOOD ORDE RABLISSY Performing Organization Address [facility] Co de Phone Number [facility] Lab [address] Lab (1st floor, no room number) [address] * Extra Red Top Tube (03/01/2024 2:24 PM CDT) Hold Specimen JIC 03/01/2024 3:31 PM CDT [facility] Blood STRUCTURE OF LEFT UPPER LIMB / Unknown Venipuncture / Unknown 03/01/2024 2:24 PM CDT 03/01/2024 2:28 PM CDT Philipp Schneider DO LAB - BLOOD ORDE RABLISSY [facility] Lab [address] Lab (1st floor, no room number) [place] [address] * Extra Blue Top Tube (03/01/2024 2:24 PM CDT) Hold Specimen JIC 03/01/2024 3:31 PM CDT [facility] Blood STRUCTURE OF LEFT UPPER LIMB / Unknown Venipuncture / Unknown 03/01/2024 2:24 PM CDT 03/01/2024 2:28 PM CDT Philipp Schneider DO LAB - BLOOD ORDE SAMANTHA LABORATORY [facility] Lab [address] Lab (1st floor, no room number) [place] [address] * CBC with platelets and differential (03/01/2024 2:24 PM CDT) WBC Count 8.0 4.0 - 11.0 10e3/uL 03/01/2024 2:31 PM CDT [facility] RBC Count 4.51 3.80 - 5.20 10e6/uL 03/01/2024 2:31 PM CDT [facility] Hemoglobin 13.3 11.7 - 15.7 g/dL 03/01/2024 2:31 PM CDT [facility] Hematocrit 40.8 35.0 - 47.0 % 03/01/2024 2:31 PM CDT [facility] MCV 91 78 - 100 fL 03/01/2024 2:31 PM CDT [facility] MCH 29.5 26.5 - 33.0 pg 03/01/2024 2:31 PM CDT [facility] MCHC 32.6 31.5 - 36.5 g/dL 03/01/2024 2:31 PM CDT [facility] RDW 13.2 10.0 - 15.0 % 03/01/2024 2:31 PM CDT [facility] Platelet Count 273 150 - 450 10e3/uL 03/01/2024 2:31 PM CDT [facility] % Neutrophils 59 % 03/01/2024 2:31 PM CDT [facility] % Lymphocytes 32 % 03/01/2024 2:31 PM CDT [facility] % Monocytes 7 % 03/01/2024 2:31 PM CDT [facility] % Eosinophils 2 % 03/01/2024 2:31 PM CDT [facility] % Basophils 1 % 03/01/2024 2:31 PM CDT [facility] % Immature Granulocytes 1 % 03/01/2024 2:31 PM CDT [facility] NRBCs per 100 WBC 0 <1 /100 024 2:31 PM CDT [facility] Absolute Neutrophils 4.7 1.6 - 8.3 10e3/uL 03/01/2024 2:31 PM CDT [facility] Absolute Lymphocytes 2.5 0.8 - 5.3 10e3/uL 03/01/2024 2:31 PM CDT [facility] Absolute Monocytes 0.6 0.0 - 1.3 10e3/uL 03/01/2024 2:31 PM CDT [facility] Absolute Eosinophils 0.1 0.0 - 0.7 10e3/uL 03/01/2024 2:31 PM CDT [facility] Absolute Basophils 0.1 0.0 - 0.2 10e3/uL 03/01/2024 2:31 PM CDT [facility] Absolute Immature Granulocytes 0.1 <=0.4 10e3/uL 03/01/2024 2:31 PM CDT [facility] Absolute NRBCs 0.0 10e3/uL 03/01/2024 2:31 PM CDT [facility] Blood STRUCTURE OF LEFT UPPER LIMB / Unknown Venipuncture / Unknown 03/01/2024 2:24 PM CDT 03/01/2024 2:28 PM CDT Philipp Schneider DO LAB - BLOOD RUSS SINGH [facility] Lab [address] [facility] Lab (1st floor, no room number) [place] [address], [facility] * (ABNORMAL) Basic metabolic panel (BMP) (03/01/2024 2:24 PM CDT) [facility] [address] Sodium 141 135 - 145 mmol/L 03/01/2024 2:51 PM CDT [facility] Comment:Reference intervals for this test were updated on 06/03/2023 to more accurately reflect our healthy population. There may be differences in the flagging of prior results with similar values performed with this method. Interpretation of those prior results can be made in the context of the updated reference intervals. Potassium 4.3 3.4 - 5.3 mmol/L 03/01/2024 2:51 PM CDT [facility] Chloride 105 98 - 107 mmol/L 03/01/2024 2:51 PM CDT [facility] Carbon Dioxide (CO2) 22 22 - 29 mmol/L 03/01/2024 2:51 PM CDT [facility] Anion Gap 14 7 - 15 mmol/L 03/01/2024 2:51 PM CDT [facility] Urea Nitrogen 9.0 8.0 - 23.0 mg/dL 03/01/2024 2:51 PM CDT LABORATORY Creatinine 1.09(H) 0.51 - 0.95 mg/dL 03/01/2024 2:51 PM CDT [facility] GFR Estimate 56(L) >60 mL/min/1. 73m2 03/01/2024 2:51 PM CDT [facility] Comment:eGFR calculated usin 2020 CKD-EPI equation. Calcium 9.6 8.8 - 10.2 mg/dL 03/01/2024 2:51 PM CDT LABORATORY Glucose 119(H) 70 - 99 mg/dL 03/01/2024 2:51 PM CDT LABORATORY Blood STRUCTURE OF LEFT UPPER LIMB / Unknown Venipuncture / Unknown 03/01/2024 2:24 PM CDT 03/01/2024 2:28 PM CDT Philipp Schneider DO LAB - BLOOD RUSS SINGH LABORATORY [facility] Lab [address] [facility] Lab (1st floor, no room number) [place] [address], [facility] documented in this encounter Visit Diagnoses Diagnosis Exacerbation of Crohn's disease with complication (H) Exacerbation of Crohn's disease with complication (H) documented in this encounter Administered Medications Inactive Administered Medications - up to 3 most recent administrations Medication Order MAR Action Action Date Dose Rate Site acetaminophen (TYLENOL) tablet 1,000 mg 1,000 mg, Oral, EVERY 6 HOURS PRN, moderate pain, Starting on Fri03/03/24 at 0931, Maximum acetaminophen dose from all sources = 75 mg/kg/day not to exceed 4 gram $Given 03/03/2024 4:16 PM CDT 1,000 mg acetaminophen (TYLENOL) tablet 500 mg 500 mg, Oral, EVERY 6 HOURS PRN, mild pain, Starting on Fri03/03/24 at 0931, Maximum acetaminophen dose from all sources = 75 mg/kg/day not to exceed 4 gram acetaminophen (TYLENOL) tablet 500-1,000 mg 500-1,000 mg, Oral, EVERY 6 HOURS PRN, mild pain, Starting on Fri03/01/24 at 2321, Maximum acetaminophen dose from all sources = 75 mg/kg/day not to exceed 4 gram $Given 03/02/2024 7:56 AM CDT 500 mg alum & mag hydroxide-simethicone (MAALOX) suspension 30 mL 30 mL, Oral, ONCE, On Fri03/03/24 at 1330, For 1 dose, Shake well. $Given 03/03/2024 1:53 PM CDT [address] scan flush Intravenous, 100 mL, ONCE, On Fri03/01/24 at 1820, For 1 dose, This entry is for use by Radiology to intermittently used as a flush in patients receiving a CT scan. $Given 03/01/2024 6:16 PM CDT 59 mLs dicyclomine (BENTYL) tablet 20 mg 20 mg, Oral, 4 TIMES DAILY BEFORE MEALS & NIGHTLY, First dose on Fri03/01/24 at 2330, Recommended to take before meals. $Given 03/03/2024 4:16 PM CDT 20 mg $Given 03/03/2024 11:14 AM CDT 20 mg $Given 03/02/2024 9:32 PM CDT 20 mg famotidine (PEPCID) tablet 20 mg 20 mg, Oral, AT BEDTIME, First dose (after last modification) on Fri03/03/24 at 2200, Dose adjusted per renal dosing policy. Estimated CrCl = 30-60 mL/min. famotidine (PEPCID) tablet 40 mg 40 mg, Oral, AT BEDTIME, First dose on Fri03/01/24 at 2330 $Given 03/02/2024 9:32 PM CDT 40 mg $Given 03/02/2024 12:33 AM CDT 40 mg HYDROmorphone (DILAUDID) half-tab 1 mg 1 mg, Oral, EVERY 4 HOURS PRN, moderate pain, IF pain not managed with non-pharmacological and non-opioid interventions, Starting on Fri03/01/24 at 2324, May use concomitant with non-opioid analgesics. $Given 03/02/2024 4:28 PM CDT 1 mg $Given 03/02/2024 9:45 AM CDT 1 mg HYDROmorphone (DILAUDID) injection 0.2 mg 0.2 mg, Intravenous, EVERY 2 HOURS PRN, moderate pain, IF patient cannot take oral opioid OR IF pain not managed with non-pharmacological, non-opioid, or oral opioid interventions if ordered, Starting on Fri03/01/24 at 2324, May use concomitant with non-opioid analgesics. $Given 03/02/2024 11:12 PM CDT 0.2 mg HYDROmorphone (DILAUDID) injection 0.4 mg 0.4 mg, Intravenous, EVERY 2 HOURS PRN, severe pain, IF patient cannot take oral opioid OR IF pain not managed with non-pharmacological, non-opioid, or oral opioid interventions if ordered, Starting on Fri03/01/24 at 2324, May use concomitant with non-opioid analgesics. $Given 03/03/2024 1:11 PM CDT 0.4 mg HYDROmorphone (DILAUDID) injection 1 mg 1 mg, Intravenous, ONCE, On Fri03/01/24 at 1945, For 1 dose $Given 03/01/2024 8:02 PM CDT 1 mg HYDROmorphone (DILAUDID) tablet 2 mg 2 mg, Oral, EVERY 4 HOURS PRN, severe pain, IF pain not managed with non-pharmacological and non-opioid interventions, Starting on Fri03/01/24 at 2324, May use concomitant with non-opioid analgesics. $Given 03/03/2024 4:16 PM CDT 2 mg $Given 03/03/2024 5:55 AM CDT 2 mg $Given 03/02/2024 3:56 AM CDT 2 mg hydrOXYzine HCl (ATARAX) tablet 25 mg 25 mg, Oral, EVERY 6 HOURS PRN, other, adjuvant pain, Starting on Fri03/01/24 at 2322 $Given 03/03/2024 4:16 PM CDT 25 mg $Given 03/03/2024 10:05 AM CDT 25 mg $Given 03/02/2024 8:13 PM CDT 25 mg iopamidol (ISOVUE-370) solution 500 mL 500 mL, Intravenous, ONCE, On Fri03/01/24 at 1820, For 1 dose $Given 03/01/2024 6:16 PM CDT 76 mLs lactated ringers infusion at 100 mL/hr, Intravenous, CONTINUOUS, Starting on Fri03/01/24 at 2330, Until Fri03/02/24 at 0929 $New Bag 03/02/2024 12:32 AM CDT 100 mL/hr methocarbamol (ROBAXIN) tablet 1,000 mg 1,000 mg, Oral, 2 TIMES DAILY, First dose on Fri03/01/24 at 2330 $Given 03/03/2024 10:05 AM CDT 1,000 mg $Given 03/02/2024 8:13 PM CDT 1,000 mg $Given 03/02/2024 9:44 AM CDT 1,000 mg methylPREDNISolone sodium succinate (SOLU-MEDROL) injection 20 mg 20 mg, Intravenous, Administer over 2 Minutes, ONCE, On Fri03/01/24 at 2000, For 1 dose $Given 03/01/2024 8:02 PM CDT 20 mg methylPREDNISolone sodium succinate (SOLU-MEDROL) injection 20 mg 20 mg, Intravenous, Administer over 2 Minutes, EVERY 8 HOURS, First dose on Fri03/02/24 at 0400 $Given 03/03/2024 1:07 PM CDT 20 mg $Given 03/03/2024 5:45 AM CDT 20 mg $Given 03/02/2024 9:32 PM CDT 20 mg montelukast (SINGULAIR) tablet 10 mg 10 mg, Oral, AT BEDTIME, First dose on Fri03/01/24 at 2330 $Given 03/02/2024 9:31 PM CDT 10 mg $Given 03/02/2024 12:33 AM CDT 10 mg morphine (PF) injection 4 mg 4 mg, Intravenous, ONCE, On Fri03/01/24 at 1620, For 1 dose $Given 03/01/2024 4:56 PM CDT 4 mg naloxone (NARCAN) injection 0.2 mg 0.2 mg, Intravenous, EVERY 2 MIN PRN, opioid reversal, Starting on Fri03/01/24 at 2332, Administer intravenous route when available and notify [...] 2 MIN PRN, opioid reversal, Starting on Fri03/01/24 at 2332, Administer intramuscular if an intravenous route is [...] 2 MIN PRN, opioid reversal, Starting on Fri03/01/24 at 2332, Administer intravenous route when available and notify [...] 2 MIN PRN, opioid reversal, Starting on Fri03/01/24 at 2332, Administer intramuscular if an intravenous route is [...] mg, Oral, AT BEDTIME, First dose on Fri03/01/24 at 2330 $Given 03/02/2024 9:32 PM CDT 25 mg $Given 03/02/2024 12:34 AM CDT 25 mg ondansetron (ZOFRAN ODT) ODT tab 4 mg 4 mg, Oral, ONCE, On Fri03/01/24 at 1420, For 1 dose, With dry hands, peel back foil backing and gently remove tablet. Do not push oral disintegrating tablet through foil backing. Administer immediately on tongue and oral disintegrating tablet dissolves in seconds, then swallow with saliva. Liquid not required. $Given 03/01/2024 2:20 PM CDT 4 mg ondansetron (ZOFRAN ODT) ODT tab 4 mg 4 mg, Oral, EVERY 6 HOURS PRN, nausea, vomiting, Starting on Fri03/01/24 at 2325, This is Step 1 of nausea and vomiting management. If nausea not resolved in 15 minutes, go to Step 2 prochlorperazine (COMPAZINE). With dry hands, peel back foil backing and gently remove tablet. Do not push oral disintegrating tablet through foil backing. Administer immediately on tongue and oral disintegrating tablet dissolves in seconds, then swallow with saliva. Liquid not required. $Given 03/02/2024 4:30 PM CDT 4 mg ondansetron (ZOFRAN) injection 4 mg 4 mg, Intravenous, ONCE, Administer over 2-5 Minutes, On Fri03/01/24 at 1620, For 1 dose, Irritant. $Given 03/01/2024 4:55 PM CDT 4 mg ondansetron (ZOFRAN) injection 4 mg 4 mg, Intravenous, EVERY 30 MIN PRN, nausea, vomiting, Administer over 2-5 Minutes, Starting on Fri03/01/24 at 2159, For 3 doses, May repeat in 30 minutes as needed, up to 3 doses. Irritant. $Given 03/01/2024 10:13 PM CDT 4 mg ondansetron (ZOFRAN) injection 4 mg 4 mg, Intravenous, EVERY 6 HOURS PRN, nausea, vomiting, Administer over 2-5 Minutes, Starting on Fri03/01/24 at 2325, Give IF patient unable to tolerate oral medication. This is Step 1 of nausea and vomiting management. If nausea not resolved in 15 minutes, go to Step 2 prochlorperazine (COMPAZINE). Irritant. $Given 03/03/2024 1:07 PM CDT 4 mg $Given 03/03/2024 8:49 AM CDT 4 mg $Given 03/02/2024 9:50 AM CDT 4 mg pantoprazole (PROTONIX) EC tablet 40 mg 40 mg, Oral, EVERY MORNING BEFORE BREAKFAST, First dose on Fri03/02/24 at 0730, This therapy was substituted for esomeprazole (NEXIUM) 40 mg every morning before breakfast. $Given 03/03/2024 10:05 AM CDT 40 mg $Given 03/02/2024 7:56 AM CDT 40 mg prochlorperazine (COMPAZINE) injection 10 mg 10 mg, Intravenous, EVERY 6 HOURS PRN, nausea, vomiting, Administer over 1-2 Minutes, Starting on Fri03/01/24 at 2325, IF patient unable to tolerate oral medication. This is Step 2 of nausea and vomiting management. Give if nausea not resolved 15 minutes after giving ondansetron (ZOFRAN). prochlorperazine (COMPAZINE) suppository 25 mg 25 mg, Rectal, EVERY 12 HOURS PRN, nausea, vomiting, Starting on Fri03/01/24 at 2325, This is Step 2 of nausea and vomiting management. Give if nausea not resolved 15 minutes after giving ondansetron (ZOFRAN). prochlorperazine (COMPAZINE) tablet 10 mg 10 mg, Oral, EVERY 6 HOURS PRN, vomiting, Starting on Fri03/01/24 at 2325, This is Step 2 of nausea and vomiting management. Give if nausea not resolved 15 minutes after giving ondansetron (ZOFRAN). senna-docusate (SENOKOT-S/PERICOLACE) 8.6-50 MG per tablet 1 tablet 1 tablet, Oral, 2 TIMES DAILY PRN, constipation, Starting on Fri03/01/24 at 2322, If no bowel movement in 24 hours, increase to 2 tablets by mouth. IF more than 1 constipation PRN medication is ordered, administer step-walsh as indicated, moving to the next step ONLY if prior step ineffective. Step 1: senna-docusate (SENOKOT-S; PERICOLACE) OR bisacodyl (DULCOLAX) EC tablet Step 2: polyethylene glycol (MIRALAX/GLYCOLAX) Step 3: bisacodyl (DULCOLAX) suppository Step 4: enema Hold for loose stools. senna-docusate (SENOKOT-S/PERICOLACE) 8.6-50 MG per tablet 2 tablet 2 tablet, Oral, 2 TIMES DAILY PRN, constipation, Starting on Fri03/01/24 at 2322, IF more than 1 constipation PRN medication [...] EVERY 6 HOURS PRN, cramping, Starting on Fri03/01/24 at 2322 $Given 03/03/2024 1:12 PM CDT 80 mg sodium chloride 0.9% BOLUS 1,000 mL Intravenous, 1,000 mL, ONCE, at 1,000 mL/hr, Administer over 1 Hours, On Fri03/01/24 at 1620, For 1 dose $New Bag 03/01/2024 4:56 PM CDT 1,000 mLs 1000 mL/hr traZODone (DESYREL) tablet 200 mg 200 mg, Oral, AT BEDTIME, First dose on Fri03/01/24 at 2330 $Given 03/02/2024 9:32 PM CDT 200 mg $Given 03/02/2024 12:33 AM CDT 200 mg documented in this encounter Active and Recently Administered Medications Times are shown in CDT. Scheduled Medication Order 03/01/2024 03/02/2024 03/03/2024 alum & mag hydroxide-simethicone (MAALOX) suspension 30 mL (COMPLETED) 30 mL, Oral, ONCE, On Fri03/03/24 at 1330, For 1 dose, Shake well. 1353 ($Given - Provider: Cate Contreras RN) CT scan flush (COMPLETED) Intravenous, 100 mL, ONCE, On Fri03/01/24 at 1820, For 1 dose, This entry is for use by Radiology to intermittently used as a flush in patients receiving a CT scan. 1816 ($Given - Provider: Manda Kaufman) dicyclomine (BENTYL) tablet 20 mg 20 mg, Oral, 4 TIMES DAILY BEFORE MEALS & NIGHTLY, First dose on Fri03/01/24 at 2330, Recommended to take before meals. 0034 ($Given - Provider: Alicia Schwartz RN)0756 ($Given - Provider: Cate Contreras RN)1214 ($Given - Provider: Cate Contreras RN)1628 ($Given - Provider: Cate Contreras RN)2132 ($Given - Provider: Cate Contreras RN) 0902 (Not Given - Provider: Cate Contreras RN - Reason: Nausea - Comment: pt given zofran and will re-evaluate for lunch)1114 ($Given - Provider: Cate Contreras RN)1616 ($Given - Provider: Cate Contreras RN) famotidine (PEPCID) tablet 20 mg 20 mg, Oral, AT BEDTIME, First dose (after last modification) on Fri03/03/24 at 2200, Dose adjusted per renal dosing policy. Estimated CrCl = 30-60 mL/min. famotidine (PEPCID) tablet 40 mg (CANCELED) 40 mg, Oral, AT BEDTIME, First dose on Fri03/01/24 at 2330 0033 ($Given - Provider: Alicia Schwartz RN)213 ($Given - Provider: Cate Contreras RN) HYDROmorphone (DILAUDID) injection 1 mg (COMPLETED) 1 mg, Intravenous, ONCE, On Fri03/01/24 at 1945, For 1 dose 2001 ($Given - Provider: Ella Richardson RN) iopamidol (ISOVUE-370) solution 500 mL (COMPLETED) 500 mL, Intravenous, ONCE, On Fri03/01/24 at 1820, For 1 dose 181 ($Given - Provider: Manda Kaufman) methocarbamol (ROBAXIN) tablet 1,000 mg 1,000 mg, Oral, 2 TIMES DAILY, First dose on Fri03/01/24 at 2330 0033 ($Given - Provider: Alicia Schwartz RN)0944 ($Given - Provider: Cate Contreras RN)2012 ($Given - Provider: Cate Contreras RN) 1005 ($Given - Provider: Cate Contreras RN) methylPREDNISolone sodium succinate (SOLU-MEDROL) injection 20 mg (COMPLETED) 20 mg, Intravenous, Administer over 2 Minutes, ONCE, On Fri03/01/24 at 2000, For 1 dose 2001 ($Given - Provider: Ella Richardson, IFRAH) methylPREDNISolone sodium succinate (SOLU-MEDROL) injection 20 mg 20 mg, Intravenous, Administer over 2 Minutes, EVERY 8 HOURS, First dose on Fri03/02/24 at 0400 0357 ($Given - Provider: Alicia Schwartz RN)1214 ($Given - Provider: Cate Contreras, IFRAH)2132 ($Given - Provider: Cate Contreras RN - Comment: pt walking in halls.) 0545 ($Given - Provider: Alicia Schwartz RN)1307 ($Given - Provider: Cate Contreras, IFRAH) montelukast (SINGULAIR) tablet 10 mg 10 mg, Oral, AT BEDTIME, First dose on Fri03/01/24 at 2330 0033 ($Given - Provider: Alicia Schwartz RN)2131 ($Given - Provider: Cate Contreras RN) morphine (PF) injection 4 mg (COMPLETED) 4 mg, Intravenous, ONCE, On Fri03/01/24 at 1620, For 1 dose 1656 ($Given - Provider: Ella Richardson RN) nortriptyline (PAMELOR) capsule 25 mg 25 mg, Oral, AT BEDTIME, First dose on Fri03/01/24 at 2330 0034 ($Given - Provider: Alicia Schwartz RN)2132 ($Given - Provider: Cate Contreras RN) ondansetron (ZOFRAN ODT) ODT tab 4 mg (COMPLETED) 4 mg, Oral, ONCE, On Fri03/01/24 at 1420, For 1 dose, With dry hands, peel back foil backing and gently remove tablet. Do not push oral disintegrating tablet through foil backing. Administer immediately on tongue and oral disintegrating tablet dissolves in seconds, then swallow with saliva. Liquid not required. 1420 ($Given - Provider: Cori Hull RN) ondansetron (ZOFRAN) injection 4 mg (COMPLETED) 4 mg, Intravenous, ONCE, Administer over 2-5 Minutes, On Fri03/01/24 at 1620, For 1 dose, Irritant. 1655 ($Given - Provider: Ella Richardson RN) pantoprazole (PROTONIX) EC tablet 40 mg 40 mg, Oral, EVERY MORNING BEFORE BREAKFAST, First dose on Fri03/02/24 at 0730, This therapy was substituted for esomeprazole (NEXIUM) 40 mg every morning before breakfast. 0756 ($Given - Provider: Cate Contreras RN) 1005 ($Given - Provider: Cate Contreras RN) sodium chloride 0.9% BOLUS 1,000 mL (COMPLETED) Intravenous, 1,000 mL, ONCE, at 1,000 mL/hr, Administer over 1 Hours, On Fri03/01/24 at 1620, For 1 dose 1656 ($New Bag - Provider: Ella Richardson RN)1807 (Stopped - Provider: Ella Richardson RN) traZODone (DESYREL) tablet 200 mg 200 mg, Oral, AT BEDTIME, First dose on Fri03/01/24 at 2330 0033 ($Given - Provider: Alicia Schwartz RN)2132 ($Given - Provider: Cate Contreras, IFRAH) Continuous Medication Order 03/01/2024 03/02/2024 03/03/2024 lactated ringers infusion () at 100 mL/hr, Intravenous, CONTINUOUS, Starting on Fri03/01/24 at 2330, Until Fri03/02/24 at 0929 0032 ($New Bag - Provider: Lulu Schwartz RN)1000 (Stopped - Provider: Cate Contreras, IFRAH) PRN Medication Order 03/01/2024 03/02/2024 03/03/2024 acetaminophen (TYLENOL) tablet 1,000 mg(Linked Group 1) 1,000 mg, Oral, EVERY 6 HOURS PRN, moderate pain, Starting on Fri03/03/24 at 0931, Maximum acetaminophen dose from all sources = 75 mg/kg/day not to exceed 4 gram 1616 ($Given - Provider: Cate Contreras, IFRAH) acetaminophen (TYLENOL) tablet 500 mg(Linked Group 1) 500 mg, Oral, EVERY 6 HOURS PRN, mild pain, Starting on Fri03/03/24 at 0931, Maximum acetaminophen dose from all sources = 75 mg/kg/day not to exceed 4 gram 1616 (See Alternative - Provider: Cate Contreras RN) acetaminophen (TYLENOL) tablet 500-1,000 mg (CANCELED) 500-1,000 mg, Oral, EVERY 6 HOURS PRN, mild pain, Starting on Fri03/01/24 at 2321, Maximum acetaminophen dose from all sources = 75 mg/kg/day not to exceed 4 gram 0756 ($Given - Provider: Cate Contreras RN) bisacodyl (DULCOLAX) suppository 10 mg 10 mg, Rectal, 2 TIMES DAILY PRN, constipation, Starting on Fri03/01/24 at 2321, Hold for loose stools. HYDROmorphone (DILAUDID) half-tab 1 mg 1 mg, Oral, EVERY 4 HOURS PRN, moderate pain, IF pain not managed with non-pharmacological and non-opioid interventions, Starting on Fri03/01/24 at 2324, May use concomitant with non-opioid analgesics. 0945 ($Given - Provider: Cate Contreras RN)1628 ($Given - Provider: Cate Contreras RN) HYDROmorphone (DILAUDID) injection 0.2 mg 0.2 mg, Intravenous, EVERY 2 HOURS PRN, moderate pain, IF patient cannot take oral opioid OR IF pain not managed with non-pharmacological, non-opioid, or oral opioid interventions if ordered, Starting on Fri03/01/24 at 2324, May use concomitant with non-opioid analgesics. 2312 ($Given - Provider: Cate Contreras RN) HYDROmorphone (DILAUDID) injection 0.4 mg 0.4 mg, Intravenous, EVERY 2 HOURS PRN, severe pain, IF patient cannot take oral opioid OR IF pain not managed with non-pharmacological, non-opioid, or oral opioid interventions if ordered, Starting on Fri03/01/24 at 2324, May use concomitant with non-opioid analgesics. 1311 ($Given - Provider: Cate Contreras RN) HYDROmorphone (DILAUDID) tablet 2 mg 2 mg, Oral, EVERY 4 HOURS PRN, severe pain, IF pain not managed with non-pharmacological and non-opioid interventions, Starting on Fri03/01/24 at 2324, May use concomitant with non-opioid analgesics. 0356 ($Given - Provider: Alicia Schwartz, RN) 0555 ($Given - Provider: Alicia Schwartz RN)1616 ($Given - Provider: Cate Contreras, RN) hydrOXYzine HCl (ATARAX) tablet 25 mg 25 mg, Oral, EVERY 6 HOURS PRN, other, adjuvant pain, Starting on Fri03/01/24 at 2322 2012 ($Given - Provider: Cate Contreras RN) 1005 ($Given - Provider: Cate Contreras, RN)1616 ($Given - Provider: Cate Contreras, RN) naloxone (NARCAN) injection 0.2 mg(Linked Group 2) 0.2 mg, Intravenous, EVERY 2 MIN PRN, opioid reversal, Starting on Fri03/01/24 at 2332, Administer intravenous route when available and notify [...] 2 MIN PRN, opioid reversal, Starting on Fri03/01/24 at 2332, Administer intramuscular if an intravenous route is [...] 2 MIN PRN, opioid reversal, Starting on Fri03/01/24 at 2332, Administer intravenous route when available and notify [...] 2 MIN PRN, opioid reversal, Starting on Fri03/01/24 at 2332, Administer intramuscular if an intravenous route is [...] (ZOFRAN ODT) ODT tab 4 mg(Linked Group 3) 4 mg, Oral, EVERY 6 HOURS PRN, nausea, vomiting, Starting on Fri03/01/24 at 2325, This is Step 1 of nausea and vomiting management. If nausea not resolved in 15 minutes, go to Step 2 prochlorperazine (COMPAZINE). With dry hands, peel back foil backing and gently remove tablet. Do not push oral disintegrating tablet through foil backing. Administer immediately on tongue and oral disintegrating tablet dissolves in seconds, then swallow with saliva. Liquid not required. 0950 (See Alternative - Provider: Cate Contreras RN)1630 ($Given - Provider: Cate Contreras RN) 0849 (See Alternative - Provider: Cate Contreras RN)1307 (See Alternative - Provider: Cate Contreras RN) ondansetron (ZOFRAN) injection 4 mg (CANCELED) 4 mg, Intravenous, EVERY 30 MIN PRN, nausea, vomiting, Administer over 2-5 Minutes, Starting on Fri03/01/24 at 2159, For 3 doses, May repeat in 30 minutes as needed, up to 3 doses. Irritant. 2213 ($Given - Provider: Odalys Mancilla RN) ondansetron (ZOFRAN) injection 4 mg(Linked Group 3) 4 mg, Intravenous, EVERY 6 HOURS PRN, nausea, vomiting, Administer over 2-5 Minutes, Starting on Fri03/01/24 at 2325, Give IF patient unable to tolerate oral medication. This is Step 1 of nausea and vomiting management. If nausea not resolved in 15 minutes, go to Step 2 prochlorperazine (COMPAZINE). Irritant. 0950 ($Given - Provider: Cate Contreras RN)1630 (See Alternative - Provider: Cate Contreras RN) 0849 ($Given - Provider: Cate Contreras RN)1307 ($Given - Provider: Cate Contreras RN) polyethylene glycol (MIRALAX) Packet 17 g 17 g, Oral, 2 TIMES DAILY PRN, constipation, Starting on Fri03/01/24 at 2325, IF more than 1 constipation PRN medication is ordered, administer step-walsh as indicated, moving to the next step ONLY if prior step ineffective. Step 1: senna-docusate (SENOKOT-S; PERICOLACE) OR bisacodyl (DULCOLAX) EC tablet Step 2: polyethylene glycol (MIRALAX/GLYCOLAX) Step 3: bisacodyl (DULCOLAX) suppository Step 4: enema 1 Packet = 17 grams. Mix each gram with at least 1/2 ounce (15 mL) of water - 8 ounces for 17 g dose, 4 ounces for 8.5 g dose, 2 ounces for 4 g dose. Follow with the same volume of water. Hold for loose stools unless being administered as part of a bowel prep regimen or bowel clean out. prochlorperazine (COMPAZINE) injection 10 mg(Linked Group 4) 10 mg, Intravenous, EVERY 6 HOURS PRN, nausea, vomiting, Administer over 1-2 Minutes, Starting on Fri03/01/24 at 2325, IF patient unable to tolerate oral medication. This is Step 2 of nausea and vomiting management. Give if nausea not resolved 15 minutes after giving ondansetron (ZOFRAN). prochlorperazine (COMPAZINE) suppository 25 mg(Linked Group 4) 25 mg, Rectal, EVERY 12 HOURS PRN, nausea, vomiting, Starting on Fri03/01/24 at 2325, This is Step 2 of nausea and vomiting management. Give if nausea not resolved 15 minutes after giving ondansetron (ZOFRAN). prochlorperazine (COMPAZINE) tablet 10 mg(Linked Group 4) 10 mg, Oral, EVERY 6 HOURS PRN, vomiting, Starting on Fri03/01/24 at 2325, This is Step 2 of nausea and vomiting management. Give if nausea not resolved 15 minutes after giving ondansetron (ZOFRAN). senna-docusate (SENOKOT-S/PERICOLACE) 8.6-50 MG per tablet 1 tablet(Linked Group 5) 1 tablet, Oral, 2 TIMES DAILY PRN, constipation, Starting on Fri03/01/24 at 2322, If no bowel movement in 24 hours, increase to 2 tablets by mouth. IF more than 1 constipation PRN medication is ordered, administer step-walsh as indicated, moving to the next step ONLY if prior step ineffective. Step 1: senna-docusate (SENOKOT-S; PERICOLACE) OR bisacodyl (DULCOLAX) EC tablet Step 2: polyethylene glycol (MIRALAX/GLYCOLAX) Step 3: bisacodyl (DULCOLAX) suppository Step 4: enema Hold for loose stools. senna-docusate (SENOKOT-S/PERICOLACE) 8.6-50 MG per tablet 2 tablet(Linked Group 5) 2 tablet, Oral, 2 TIMES DAILY PRN, constipation, Starting on Fri03/01/24 at 2322, IF more than 1 constipation PRN medication [...] EVERY 6 HOURS PRN, cramping, Starting on Fri03/01/24 at 2322 1312 ($Given - Provider: Cate Contreras RN) Linked Groups Order Group 1: acetaminophen (TYLENOL) tablet 500 mgJump to med 500 mg, Oral, EVERY 6 HOURS PRN, mild pain, Starting on Fri03/03/24 at 0931, Maximum acetaminophen dose from all sources = 75 mg/kg/day not to exceed 4 gram Or acetaminophen (TYLENOL) tablet 1,000 mgJump to med 1,000 mg, Oral, EVERY 6 HOURS PRN, moderate pain, Starting on Fri03/03/24 at 0931, Maximum acetaminophen dose from all sources = 75 mg/kg/day not to exceed 4 gram Group 2: naloxone (NARCAN) injection 0.2 mgJump to med 0.2 mg, Intravenous, EVERY 2 MIN PRN, opioid reversal, Starting on Fri03/01/24 at 2332, Administer intravenous route when available and notify [...] 2 MIN PRN, opioid reversal, Starting on Fri03/01/24 at 233, Administer intravenous route when available and notify [...] 2 MIN PRN, opioid reversal, Starting on Fri03/01/24 at 2332, Administer intramuscular if an intravenous route is [...] 2 MIN PRN, opioid reversal, Starting on Fri03/01/24 at 2332, Administer intramuscular if an intravenous route is [...] improved after 4 naloxone doses. Group 3: ondansetron (ZOFRAN ODT) ODT tab 4 mgJump to med 4 mg, Oral, EVERY 6 HOURS PRN, nausea, vomiting, Starting on Fri03/01/24 at 2325, This is Step 1 of nausea and [...] vomiting, Administer over 2-5 Minutes, Starting on Fri03/01/24 at 2325, Give IF patient unable to tolerate oral medication. This is Step 1 of nausea and vomiting management. If nausea not resolved in 15 minutes, go to Step 2 prochlorperazine (COMPAZINE). Irritant. Group 4: prochlorperazine (COMPAZINE) injection 10 mgJump to med 10 mg, Intravenous, EVERY 6 HOURS PRN, nausea, vomiting, Administer over 1-2 Minutes, Starting on Fri03/01/24 at 2325, IF patient unable to tolerate oral medication. This is Step 2 of nausea and vomiting management. Give if nausea not resolved 15 minutes after giving ondansetron (ZOFRAN). Or prochlorperazine (COMPAZINE) tablet 10 mgJump to med 10 mg, Oral, EVERY 6 HOURS PRN, vomiting, Starting on Fri03/01/24 at 2325, This is Step 2 of nausea and vomiting management. Give if nausea not resolved 15 minutes after giving ondansetron (ZOFRAN). Or prochlorperazine (COMPAZINE) suppository 25 mgJump to med 25 mg, Rectal, EVERY 12 HOURS PRN, nausea, vomiting, Starting on Fri03/01/24 at 2325, This is Step 2 of nausea and vomiting management. Give if nausea not resolved 15 minutes after giving ondansetron (ZOFRAN). Group 5: senna-docusate (SENOKOT-S/PERICOLACE) 8.6-50 MG per tablet 1 tabletJump to med 1 tablet, Oral, 2 TIMES DAILY PRN, constipation, Starting on Fri03/01/24 at 2322, If no bowel movement in 24 hours, [...] 2 TIMES DAILY PRN, constipation, Starting on Fri03/01/24 at 2322, IF more than 1 constipation PRN medication [...] Last Indicated Resolved Time Rule Out C-difficile 03/02/2024 03/02/2024 024 12:32 PM CDT documented as of this encounter Care Teams Ultrasound Manager Relationship Specialty Start Date End Date Andrew Israel PA-C [place] [id number] [facility] [place] [id number] PCP - General 05/15/23 documented as of this encounter
--- OUTSIDE RECORDS SUMMARY | 2024-05-20 10:08 | XMS_ITS | Referral Summary ---
Author Organization [facility] Address [address] [place] [address] Care Team Providers Care Manager Library Name Role Phone Andrew Israel PA-C Primary Care Provider [phone] Encounters Date Type Department Care Team Description 03/01/2024 3:35 PM CDT - 03/03/2024 5:21 PM CDT Hospital Encounter [place] [address] [facility] [address] [place] [address] Philipp Schneider DO Hess, Toy, MD Cabrera, Jesus F, MD Exacerbation of Crohn's disease with complication (H) Discharge Disposition: Home or Self Care 03/01/2024 Travel from Last 3 Months Allergies Active Allergy Reactions Criticality Noted Date Comments Acetaminophen Nausea and Vomiting 01/28/2023 Aspirin Nausea and Vomiting Medium 02/11/2023 Codeine Nausea and Vomiting 02/11/2023 Meperidine Nausea and Vomiting Medium 02/10/2023 N/V Latex Hives High 02/11/2023 Mold 02/11/2023 Oxycodone Anaphylaxis,Hives,Sw e lling High 02/10/2023 Throat swelling, per pt Pt tolerates Porum/Vicodin (06/22/2023) Penicillin G Anaphylaxis High 02/11/2023 Oxycodone-Acetaminophen [...] shortness of breath, wheezing or cough Active methocarbamol (ROBAXIN) 500 MG tabletIndications:RLQ abdominal pain,Partial small bowel obstruction (H),IBD (inflammatory bowel disease),Nausea Take 1 tablet (500 mg) by mouth 4 times daily as needed for muscle spasms 15 tablet 1 02/23/2023 Active cyanocobalamin (CYANOCOBALAMIN) 1000 MCG/ML injection Inject 1,000 mcg as directed every 30 days Active acetaminophen (TYLENOL) 500 MG tabletIndications:RLQ abdominal pain Take 1-2 tablets (500-1,000 mg) by mouth every 6 hours as needed for mild pain 04/02/2023 Active medical cannabis (Patient's own supply) Take 1 Dose by mouth See Admin Instructions (The purpose of this order is to document that the patient reports taking medical cannabis. This is not a prescription, and is not used to certify that the patient has a qualifying medical condition.) 25 MG EDIBLE Active inFLIXimab (REMICADE IV)Indications:Gastroe nterologist has changed the frequency to every 6 weeks Inject 10 mg/kg into the vein every 4 weeks Active dicyclomine (BENTYL) 20 MG tabletIndications:Intr actable abdominal pain Take 1 tablet (20 mg) by mouth 4 times daily (before meals and nightly) 30 tablet 09/25/2023 Active simethicone (MYLICON) 80 MG chewable tabletIndications:Intr actable abdominal pain Take 1 tablet (80 mg) by mouth every 6 hours as needed for cramping 30 tablet 09/25/2023 Active vitamin C (ASCORBIC ACID) 1000 MG TABS Take 1,000 mg by mouth daily Active Vitamin D3 (CHOLECALCIFEROL) 25 mcg (1000 units) tablet Take 25 mcg by mouth daily Active ondansetron (ZOFRAN ODT) 4 MG ODT tabIndications:Crohn's disease with complication, unspecified gastrointestinal tract location (H) Take 1 tablet (4 mg) by mouth every 8 hours as needed for nausea 20 tablet 12/09/2023 Active l-lysine HCl 500 MG TABS tablet Take 1,000 mg by mouth daily Active zolpidem (AMBIEN) 5 MG tablet Take 5 mg by mouth nightly as needed 03/01/2024 Active Active Problems Problem Noted Date Diagnosed [...] Mass Index 26.99 03/01/2024 2:16 PM CDT Plan of Treatment Not on file Procedures Procedure Name Priority Date/Time Associated Diagnosis Comments CBC WITH PLATELETS & DIFFERENTIAL Routine 03/03/2024 6:57 AM CDT CBC WITH PLATELETS AND DIFFERENTIAL Routine 03/03/2024 6:57 AM CDT CRP INFLAMMATION Routine 03/03/2024 6:57 AM CDT BASIC METABOLIC PANEL Routine 03/03/2024 6:57 AM CDT CBC WITH PLATELETS Routine 03/02/2024 6: 21 AM CDT HEPATIC FUNCTION PANEL Routine 03/02/2024 6:21 AM CDT BASIC METABOLIC PANEL Routine 03/02/2024 6:[address] ABDOMEN PELVIS W CONTRAST STAT 03/01/2024 6:26 PM CDT ROUTINE UA WITH MICROSCOPIC REFLEX TO CULTURE STAT 03/01/2024 3:02 PM CDT EKG 12-LEAD, TRACING ONLY STAT 03/01/2024 2:54 PM CDT CBC WITH PLATELETS & DIFFERENTIAL STAT 03/01/2024 2:24 PM CDT CRP INFLAMMATION Add-On 03/01/2024 2:24 PM CDT MAGNESIUM STAT 03/01/2024 2:24 PM CDT EXTRA RED TOP TUBE STAT 03/01/2024 2: 24 PM CDT EXTRA BLUE TOP TUBE STAT 03/01/2024 2 :24 PM CDT CBC WITH PLATELETS AND DIFFERENTIAL STAT 03/01/2024 2:24 PM CDT EXTRA TUBE STAT 03/01/2024 2:24 PM CDT BASIC METABOLIC PANEL STAT 03/01/2024 2:24 PM CDT COLONOSCOPY Routine 06/20/2023 8:38 AM CDT from Last 3 Months or Most Recently Relevant to Health Maintenance Results * (ABNORMAL) CBC with platelets and differential (03/03/2024 6:57 AM CDT) Only the most recent of2 resultswithin the time period is included. WBC Count 10.4 4.0 - 11.0 10e3/uL [...] MD LAB - BLOOD ORDERABL ES LABORATORY [facility] Lab [address] Lab (1st floor, no room number) [place] [address] * CRP inflammation (03/03/2024 6:57 AM CDT) Only the most recent of2 resultswithin the time period is included. CRP Inflammation <3.00 <5.00 mg/L 03/03/20 7:36 AM CDT RH LABORATORY Blood STRUCTURE OF RIGHT UPPER LIMB / Unknown Venipuncture / Unknown 03/03/2024 6:57 AM CDT 03/03/2024 7:03 AM CDT Boom Shaikh MD LAB - BLOOD ORDERABL ES [facility] LABORATORY [facility] Acute [facility] Lab [address] Lab (1st floor, no room number) [place] [address], [facility] * (ABNORMAL) Basic metabolic panel (03/03/2024 6:57 AM CDT) Only the most recent of3 resultswithin the time period is included. Sodium 140 135 - 145 mmol/L 03/03/2024 7:36 AM CDT LABORATORY Comment:Reference intervals for this test were updated on 06/03/2023 to more accurately reflect our healthy population. There may be differences in the flagging of prior results with similar values performed with this method. Interpretation of those prior results can be made in the context of the updated reference intervals. Potassium 4.5 3.4 - 5.3 mmol/L 03/03/2024 7:36 AM CDT LABORATORY Chloride 104 98 - 107 mmol/L 03/03/2024 7:36 AM CDT LABORATORY Carbon Dioxide (CO2) 25 22 - 29 mmol/L 03/03/2024 7:36 AM CDT LABORATORY Anion Gap 11 7 - 15 mmol/L 03/03/2024 7:36 AM CDT LABORATORY Urea Nitrogen 12.2 8.0 - 23.0 mg/dL 03/03/2024 7:36 AM CDT LABORATORY Creatinine 0.96(H) 0.51 - 0.95 mg/dL 03/03/2024 7:36 AM CDT LABORATORY GFR Estimate 66 >60 mL/min/1. 73m2 03/03/2024 7:36 AM CDT LABORATORY Comment:eGFR calculated us2020 CKD-EPI equation. Calcium 9.2 8.8 - 10.2 mg/dL 03/03/2024 7:36 AM CDT LABORATORY Glucose 144(H) 70 - 99 mg/dL 03/03/2024 7:36 AM CDT LABORATORY Blood STRUCTURE OF RIGHT UPPER LIMB / Unknown Venipuncture / Unknown 03/03/2024 6:57 AM CDT 03/03/2024 7:03 AM CDT Boom Shaikh MD LAB - BLOOD ORDERABL ES Performing Organization Address City/[facility]/ZIP Co de Phone Number RH LABORATORY [facility] Lab [address] Lab (1st floor, no room number) [place] [address], [facility] * (ABNORMAL) Hepatic panel (03/02/2024 6:21 AM CDT) Protein Total 6.2(L) 6.4 - 8.3 g/dL [...] Harris PA-C LAB - BLOOD ORDER NATALIIA Performing Organization Address City/[facility]/ZIP Co de Phone Number RH LABORATORY [facility] [address] Lab (1st floor, no room number) [place] [address] * CBC with platelets (03/02/2024 6:21 AM [...] LAB - BLOOD ORDER NATALIIA RH LABORATORY [facility] [address] Lab (1st floor, no room number) [place] [address] * CT Abdomen Pelvis w Contrast [...] EXAM: CT ABDOMEN PELVIS W CONTRAST LOCATION: [facility] DATE: 03/01/2024 INDICATION: RLQ and right sided [...] EXAM: CT ABDOMEN PELVIS W CONTRAST LOCATION: [facility] DATE: 03/01/2024 INDICATION: RLQ and right sided [...] Light Yellow, Yellow 03/01/2024 3:18 PM CDT RH LABORATORY Appearance Urine Clear Clear 03/01/20 3:18 PM CDT RH LABORATORY Glucose Urine Negative Negative mg/dL 03/01/2024 3:18 PM CDT RH LABORATORY Bilirubin Urine Negative Negative 3:18 PM CDT RH LABORATORY Ketones Urine Negative Negative mg/dL 03/01/2024 3:18 PM CDT RH LABORATORY Specific [place] Urine 1.005 1.003 - 1.035 03/01/2024 3:18 PM CDT RH LABORATORY Blood Urine Negative Negative 03/01/2024 3:18 PM CDT RH LABORATORY pH Urine 5.5 [...] indicated Philipp Schneider DO LAB - URINE ORDE LACYLISSY [facility] LABORATORY [facility] Lab [address] Lab (1st floor, no room number) [place] [address], [facility] * EKG 12 lead (03/01/2024 2:54 PM CDT) Systolic Blood Pressure mmHg RADIOLOGY RESULTS Diastolic Blood Pressure mmHg RADIOLOGY RESULTS Ventricular Rate 86 BPM RAD IOLOGY RESULTS Atrial Rate 86 BPM RADIOLOG Y RESULTS FL Interval 138 ms RADIOLOG Y RESULTS QRS Duration 84 ms RADIOLO GY RESULTS QT 358 ms RADIOLOGY RESULTS QTc 428 ms RADIOLOGY RESULTS P [place] 40 degrees RADIOLOGY RESULTS R AXIS -11 degrees RADIOLOGY RESULTS T [place] 50 degrees RADIOLOGY RESULTS Interpretation ECG Sinus rhythm Minimal voltage criteria for LVH, may be normal variant ( R in aVL ) Borderline ECG When compared with ECG of 31-MAR-2023 20:17, No significant change was found Unconfirmed report - interpretation of this ECG is computer generated - see medical record for final interpretation Confirmed by - EMERGENCY ROOM, PHYSICIAN ([id number]), market editor Issa Ventura ([id number]) on 03/01/2024 3:16:11 PM RADIOLOGY RESULTS 03/01/2024 2:54 PM CDT 03/01/2024 3:16 PM CDT Philipp Schneider DO ECG ORDERABLES RADIOLOGY RESULTS * Extra Red Top Tube (03/01/2024 2:24 PM CDT) Hold Specimen JI 03/01/2024 3:31 PM CDT LABORATORY Blood STRUCTURE OF LEFT UPPER LIMB / Unknown Venipuncture / Unknown 03/01/2024 2:24 PM CDT 03/01/2024 2:28 PM CDT Philipp Schneider DO LAB - BLOOD ORDE LACYLISSY Performing Organization Address City/[facility]/ZIP Co de Phone Number [facility] Acute [facility] Lab [address] Lab (1st floor, no room number) [place] [address], [place] * Extra Blue Top Tube (03/01/2024 2:24 PM CDT) Hold Specimen JIC 03/01/2024 3:31 PM CDT LABORATORY Blood STRUCTURE OF LEFT UPPER LIMB / Unknown Venipuncture / Unknown 03/01/2024 2:24 PM CDT 03/01/2024 2:28 PM CDT Philipp Kai Schneider LAB - BLOOD KAROLINAE SAMANTHA Performing Organization Address [facility]/ZIP Co de Phone Number [facility] Lab [address] Lab (1st floor, no room number) [place] [address] * Magnesium (03/01/2024 2:24 PM CDT) Pathologist [facility] Magnesium 2.1 1.7 - 2.3 mg/dL 03/01/2024 4:40 PM CDT LABORATORY Blood STRUCTURE OF LEFT UPPER LIMB / Unknown Venipuncture / Unknown 03/01/2024 2:24 PM CDT 03/01/2024 2:28 PM CDT Philipp Kai Wyatt ACUÑA LAB - BLOOD RUSS SINGH Performing Organization Address City/[facility]/ZIP Co de Phone Number [facility] Lab [address] Lab (1st floor, no room number) [place] [address] * COLONOSCOPY (06/20/2023 8:38 AM CDT) COLONOSCOPY [facility] Patient Name: Hortensia Buitrago ?Procedure Date: [...] monitored continuously. The ?Olympus Pediatric Colonoscope Model #PCF-TC704P, ?[place]ora #253, SN #[id number] was introduced through the ?anus and advanced [...] Recommendation: ? - Return patient to [facility] for [facility] care. ?- Advance diet as tolerated. ?- Hopefully she continues to improve. Will follow. ? Electonically signed by Veronika Vernon MD VERONIKA VERNON MD 06/20/2023 9:29:14 AM I was physically present for the entire viewing portion of the exam. VERONIKA VERNON MD Number of Addenda: 0 Note Initiated On: 06/20/2023 8:38 AM MRN: ?[id number] Procedure Date: ? 06/20/2023 8:38:02 AM Total Procedure Duration: 0 hours 17 minutes 16 seconds Estimated Blood Loss: ? Scope In: 8:54:15 AM Scope Out: 9:11:31 AM RADIOLOGY RESULTS 06/20/2023 8:38 AM CDT Veronika Vernon MD PROCEDURES RADIOLOGY RESULTS from Last 3 Months or Most Recently Relevant to Health Maintenance Advance Directives For more information, please contact: [phone] * Full Code (Latest Code Status on File) Date Activated Date Inactivated Comments 03/01/2024 11:25 PM 03/03/2024 7:21 PM All basic a nd advanced life-sustaining interventions are performed as appropriate Question Answer Comments Code status determined by: Discussion with patie nt/ legal decision maker * Full Code Date Activated Date Inactivated Comments 11/29/2023 6:29 [...] Discussion with luca nt/ legal decision maker * Full Code Date Activated Date Inactivated Comments 03/31/2023 10:48 PM 04/02/2023 3:29 PM All basic a nd advanced life-sustaining interventions are performed as appropriate Question Answer Comments Code status determined by: Discussion with luca nt/ legal decision maker Care Teams Manager Library Relationship Specialty Start Date End Date Andrew Israel PA-C [address] [address] PCP - General 05/15/23
--- OUTSIDE RECORDS SUMMARY | 2024-05-20 10:08 | XMS_ITS | Clinical Summary ---
Author Organization [facility] Address [address] [place] [address] Care Team Providers Care Bag Worker Name Role Phone Anderw Israel PA-C Primary Care Provider [phone] Allergies Active Allergy Reactions Criticality Noted Date Comments Acetaminophen Nausea and Vomiting 01/28/2023 Aspirin Nausea and Vomiting Medium 02/11/2023 Codeine Nausea and Vomiting 02/11/2023 Meperidine Nausea and Vomiting Medium 02/10/2023 N/V Latex Hives High 02/11/2023 Mold 02/11/2023 Oxycodone Anaphylaxis,Hives,Sw e lling High 02/10/2023 Throat swelling, per pt Pt tolerates [place]/Vicodin (06/22/2023) Penicillin G Anaphylaxis High 02/11/2023 Oxycodone-Acetaminophen [...] - 03/03/2024 5:21 PM CDT Hospital Encounter [place] [address] [facility] [address] [place] [address] Philipp Schneider DO Hess, Toy, MD Cabrera, Jesus F, MD Exacerbation of Crohn's disease with complication (H) Discharge Disposition: Home or Self Care 03/01/2024 Travel from Last 3 Months Immunizations Name [...] 03/01/2024 2:16 PM CDT Plan of Treatment Health Maintenance Due Date Last Done Comments ADVANCE CARE PLANNING 1960 ANNUAL REVIEW OF HM ORDERS 1959 CT COLONOGRAPHY 1959 DEXA 1959 FIT 1959 FLEX SIG 1959 MAMMO SCREENING 1959 sDNA (Cologuard) 1959 Pneumococcal Vaccine: 65+ Years (1 of 2 - PCV) 1965 HIV SCREENING 1974 HEPATITIS C SCREENING 1977 LIPID 1999 RSV VACCINE (1 - Risk 60-74 years 1-dose series) 2019 PHQ-2 (once per calendar year) 2023 ZOSTER IMMUNIZATION (2 of 2) 09/29/2023 08/04/2023 FALL RISK ASSESSMENT 2024 MEDICARE ANNUAL WELLNESS VISIT 2024 COVID-19 Vaccine ( - season) 2024 08/04/2023, 12/26/2020, 12/05/2020 INFLUENZA VACCINE (#1) 2024 , 08/04/2023, 08/04/2023, Additional history exists GLUCOSE 03/03/2027 03/03/2024, 02/07, 03/01/2024, Additional history exists DTAP/TDAP/TD IMMUNIZATION (3 - Td or Tdap) 01/03/2032 01/02/2022, 05/28/2011, 05/17/2004 COLONOSCOPY 06/20/2033 06/20/2023, 06/08, 06/20/2023, Additional history exists COLORECTAL CANCER SCREENING 06/20/2033 HPV IMMUNIZATION Aged Out No longer e [...] Shaikh MD LAB - BLOOD ORDERABL ES [facility] Lab [address] Lab (1st floor, no room number) [place] [address] * CRP inflammation (03/03/2024 6:57 AM CDT) Only the most recent of2 resultswithin the time period is included. CRP Inflammation <3.00 <5.00 mg/L 03/03/20 7:36 AM CDT RH LABORATORY Blood STRUCTURE OF RIGHT UPPER LIMB / Unknown Venipuncture / Unknown 03/03/2024 6:57 AM CDT 03/03/2024 7:03 AM CDT Boom Shaikh MD LAB - BLOOD ORDERABL ES [facility] Lab [address] Lab (1st floor, no room number) [place] [address] * (ABNORMAL) Basic [...] MD LAB - BLOOD ORDERABL ES LABORATORY [facility] Acute Care Lab [address] [facility] Lab (1st floor, no room number) [place] [address] * (ABNORMAL) Hepatic [...] - 0.30 mg/dL 03/02/2024 6:53 AM CDT LABORATORY Blood STRUCTURE OF RIGHT HAND / Unknown Venipuncture / Unknown 03/02/2024 6:21 AM CDT 03/02/2024 6:27 AM CDT Carolin Harris PA-C LAB - BLOOD ORDER NATALIIA LABORATORY [facility] Acute [facility] Lab [address] Lab (1st floor, no room number) [place] [address], [facility] * CBC with platelets (03/02/2024 6:21 AM CDT) [facility] WBC Count 8.2 4.0 - 11.0 10e3/uL [...] LAB - BLOOD ORDER NATALIIA RH LABORATORY [facility] Lab [address] [facility] Lab (1st floor, no room number) [place] [address] * CT Abdomen [...] EXAM: CT ABDOMEN PELVIS W CONTRAST LOCATION: [facility] DATE: 03/01/2024 INDICATION: RLQ and right sided [...] EXAM: CT ABDOMEN PELVIS W CONTRAST LOCATION: [facility] DATE: 03/01/2024 INDICATION: RLQ and right sided [...] 03/01/2024 3:18 PM CDT RH LABORATORY Specific [place] Urine 1.005 1.003 - 1.035 03/01/2024 3:18 [...] 3:18 PM CDT Urine Culture not indicated Philippbeverly Quinn Wyatt ACUÑA LAB - URINE ORDE SAMANTHA Performing Organization Address City/[facility]/ZIP Co de Phone Number LABORATORY [facility] Lab [address] Lab (1st floor, no room number) [place] [address] * EKG 12 lead (03/01/2024 2:54 PM CDT) Systolic Blood Pressure mmHg RADIOLOGY RESULTS Diastolic Blood Pressure mmHg RADIOLOGY RESULTS Ventricular Rate 86 BPM RAD IOLOGY RESULTS Atrial Rate 86 BPM RADIOLOG Y RESULTS [place] Interval 138 ms RADIOLOG Y RESULTS QRS Duration 84 ms RADIOLO GY RESULTS QT 358 ms RADIOLOGY RESULTS QTc 428 ms RADIOLOGY RESULTS P [place] 40 degrees RADIOLOGY RESULTS R AXIS -11 degrees RADIOLOGY RESULTS T [place] 50 degrees RADIOLOGY RESULTS Interpretation ECG Sinus rhythm Minimal voltage criteria for LVH, may be normal variant ( R in aVL ) Borderline ECG When compared with ECG of 31-MAR-2023 20:17, No significant change was found Unconfirmed report - interpretation of this ECG is computer generated - see medical record for final interpretation Confirmed by - EMERGENCY ROOM, PHYSICIAN ([id number]), editor newspaper Issa Ventura ([id number]) on 03/01/2024 3:16:11 PM RADIOLOGY RESULTS 03/01/2024 2:54 PM CDT 03/01/2024 3:16 PM CDT Philippbeverly Schneider ECG ORDERABLES Performing Organization Address City/[facility]/ZIP Co de Phone Number RADIOLOGY RESULTS * Extra Red Top Tube (03/01/2024 2:24 PM CDT) Hold Specimen JI 03/01/2024 3:31 PM CDT LABORATORY Blood STRUCTURE OF LEFT UPPER LIMB / Unknown Venipuncture / Unknown 03/01/2024 2:24 PM CDT 03/01/2024 2:28 PM CDT Philipp Kai Wyatt ACUÑA LAB - BLOOD ORDE RABLISSY Performing Organization Address City/[facility]/ZIP Co de Phone Number LABORATORY [facility] Lab [address] Lab (1st floor, no room number) [place] [address], [facility] * Extra Blue Top Tube (03/01/2024 2:24 PM CDT) Hold Specimen JIC 03/01/2024 3:31 PM CDT LABORATORY Blood STRUCTURE OF LEFT UPPER LIMB / Unknown Venipuncture / Unknown 03/01/2024 2:24 PM CDT 03/01/2024 2:28 PM CDT Philipp Schneider DO LAB - BLOOD ORDE SAMANTHA [facility] Acute Care Lab [address] Lab (1st floor, no room number) [place] [address] * Magnesium (03/01/2024 2:24 PM CDT) Pathologist [facility] Magnesium 2.1 1.7 - 2.3 mg/dL 03/01/2024 4:40 PM CDT LABORATORY Blood STRUCTURE OF LEFT UPPER LIMB / Unknown Venipuncture / Unknown 03/01/2024 2:24 PM CDT 03/01/2024 2:28 PM CDT Philipp Schneider DO LAB - BLOOD RUSS SAMANTHA [facility] Care Lab [address] Lab (1st floor, no room number) [place] [address] * COLONOSCOPY (06/20/2023 8:38 AM CDT) COLONOSCOPY [facility] Patient Name: Hortensia Buitrago ?Procedure Date: [...] monitored continuously. The ?Olympus Pediatric Colonoscope Model #PCF-XR358I, ?[place]ora #253, SN #[id number] was introduced through the ?anus and advanced [...] Note Initiated On: 06/20/2023 8:38 AM MRN: ?[id number] Procedure Date: ? 06/20/2023 8:38:02 AM Total Procedure Duration: 0 hours 17 minutes 16 seconds Estimated Blood Loss: ? Scope In: 8:54:15 AM Scope Out: 9:11:31 AM RADIOLOGY RESULTS 06/20/2023 8:38 AM CDT Veronika Vernon MD PROCEDURES RADIOLOGY RESULTS from Last 3 Months or Most Recently Relevant to Health Maintenance Advance Directives For more information, please contact: [phone] * Full Code (Latest Code Status on [...] patie nt/ legal decision maker Care Teams Bag Worker Relationship Specialty Start Date End Date Andrew Israel PA-C [place] [address] [place] [address] PCP - General 05/15/23
--- OUTSIDE RECORDS SUMMARY | 2024-05-20 10:09 | XMS_ITS | Clinical Summary ---
Author Organization [facility] Address [place], [place] [address] Care Team Providers Care Shrimp Peeler Name Role Phone Adithya Patten MD Primary [...] 11/01/2010 Active traZODone (DESYREL) 50 mg tablet 100 mg at bedtime. 2 tablets 11 02/04/2017 Active esomeprazole (NEXIUM) 40 mg [...] age 18+ 1977 Hepatitis C screening for age 18-79 1977 Tetanus booster 1979 Pap test for age 21-65 1980 Colonoscopy through age 75 2004 Lipids for age 45-75 2004 Mammogram for age 45-75 2004 Zoster (shingles) series for age 50+ (1 of 2) 2009 DEXA/DXA scan for age 65+ 2024 Pneumococcal series for age 65+ (1 of 1 - PCV) 2024 COVID-19 vaccine series (2022-24 season) 2024 08/04/2023, 12/26/2020, 12/05/2020 Influenza for age 65+ 05/09/2024 Advance Directives * Full Code (Latest Code Status on File) Date Activated Date Inactivated Comments 05/23/2009 10:06 AM 05/24/2009 2:39 AM Care Teams Shrimp Peeler Relationship Specialty Start Date End Date Adithya Patten MD PCP - General 05/21/09
--- OUTSIDE RECORDS SUMMARY | 2024-05-20 10:09 | XMS_ITS | Encounter Summary ---
Author Organization [facility] Address [address] [place] [address] Care Team Providers Care Vegetable Tester Name Role Phone Andrew Israel PA-C Primary Care Provider [phone] Encounter Details Date Type Department Care Team (Latest Contact Info) Description 03/01/2024 Travel Social History Tobacco Use Types Packs/Day [...] on filedocumented in this encounter Care Teams Vegetable Tester Relationship Specialty Start Date End Date Andrew Israel PA-C [place] [id number] [facility] [place] [address] PCP - General 05/15/23 documented as of this encounter
--- OUTSIDE RECORDS SUMMARY | 2024-05-20 10:09 | XMS_ITS ---
Author Organization [facility] Address [address] [place] [address] Care Team Providers Care Vascular Technologist Sonographer Name Role Phone Andrew Israel PA-C Primary Care Provider [phone] Transitional Care Management Status:Closed (Closed) Start date:03/04/2024 Enrollment date:03/05/2024 End date:03/18/2024 Close reason:Goals met Continued Care and Services Coordination
[2024-05-20 10:30] LABS: Creatinine* 1.3 mg/dL (0.5-1.5); Estimated Glomerular Filt Rate 46 ml/min
--- NOTE | 2024-05-20 11:00 | CRLHL7_ITS ---
For Patients: As a result of the Century Cures Act, medical imaging exams and procedure reports are released immediately into your electronic medical record. You may view this report before your referring provider. If you have questions, please contact your health care provider. INDICATION: Crohn`s disease TECHNIQUE: Volumetric helical scanning of the abdomen and pelvis was performed utilizing an enterography protocol. The patient ingested 1350 cc of Volumen contrast material prior to scanning. 74 cc of Isovue 370 contrast material were administered IV. Coronal and sagittal reconstructions were obtained. COMPARISON: Abdomen/pelvis CT of 01/20/2023 FINDINGS: In the interval, an ileocecal resection has been performed. No small bowel wall thickening or mucosal hyperenhancement is identified. Mild wall thickening and mucosal hyperenhancement of the sigmoid colon is noted along with dilation of the associated vasa recta. These findings suggest active inflammation. However, there is no obvious associated mesenteric edema to confirm active inflammation. No free intraperitoneal fluid is evident. No perianal disease is noted. No lymphadenopathy is demonstrated. The liver is normal in size, shape and attenuation. Postop changes of cholecystectomy are again noted. No bile duct dilation is evident. The spleen is within normal limits. The adrenal glands are unremarkable. The pancreas is within normal limits. Postop changes of right nephrectomy are again noted. Left kidney is unremarkable. The bladder is grossly negative. Postop changes of hysterectomy are again noted. The lung bases are clear, and heart size is normal. IMPRESSION: 1. Interval ileocecal resection. No small bowel inflammation evident. 2. Mild active inflammatory changes of the sigmoid colon suggested, as above. 3. Post cholecystectomy, hysterectomy and right nephrectomy. Please note that all CT scans at this facility use dose modulation, iterative reconstruction, and/or weight-based dosing when appropriate to reduce radiation dose to as low as reasonably achievable. Dictated by Elpidio Carmona MD @ 05/21/2024 6:09:26 AM (Electronically Signed)
== END 2024-05-20 09:57 | disposition home or self-care (01) ==
LOC: CT 09:59
PROVIDERS: PCP Physician Assistant Medical; Visit Provider Internal Medicine
DX: K50.00 Crohn's disease of small intestine without complications (principal)
CPT/HCPCS: 36415; 74177; 82565; Q9967

== ENCOUNTER 2024-09-13 10:47 | Outpatient (CLI) | payer BC, SELFPAY | END 2024-09-13 10:48 | disposition home or self-care (01) | LOC: NFLDREF 09-14 03:00 | PROVIDERS: PCP Physician Assistant Medical; Referring Provider Physician Assistant Medical; Visit Provider Physician Assistant Medical | DX: E53.8 Deficiency of other specified B group vitamins (principal); E78.2 Mixed hyperlipidemia; I10 Essential (primary) hypertension | CPT/HCPCS: 80053; 80061; 82607 ==

== ENCOUNTER 2024-10-07 15:11 | Outpatient (CLI) | payer BC, SELFPAY ==
--- NOTE | 2024-10-07 15:30 | CRLHL7_ITS ---
For Patients: As a result of the Century Cures Act, medical imaging exams and procedure reports are released immediately into your electronic medical record. You may view this report before your referring provider. If you have questions, please contact your health care provider. XR DXA Bone Mineral Density (BMD) Reason for exam: Asymptomatic menopausal state. Current height (in): 63. Weight (lb): 147. Menopause age: 28. Ethnicity: White. 1. Have you had a previous hip or vertebral fracture? No. 2. Have you had any fractures during your adult life which did not result from significant trauma (e.g., auto accident)? Yes. 3. Did either of your parents have a hip fracture? No. 4. Do you smoke? No. 5. Have you ever taken Glucocorticoids? No. 6. Do you have rheumatoid arthritis? No. 7. Do you have secondary osteoporosis? No. 8. Do you drink 3 or more alcoholic drinks per day? No. 9. Are you being treated for osteoporosis? No. 10. Have you ever taken any of the following medications: Actonel, Evista, Fosamax, Miacalcin, Reclast, Boniva, Forteo, HRT (i.e., estrogen/hormone therapy), Protelos, Prolia, Vitamin D, Calcium, other ??? please specify. ANSWER: Yes, vitamin D. 11. Do you have any of the following medical conditions: Anorexia or bulimia, asthma or emphysema, end stage renal disease, hyperparathyroidism, any seizure disorders, cancer, inflammatory bowel diseases, hysterectomy, other ??? please specify. ANSWER: Yes, inflammatory bowel diseases. 12. What was your maximum height (inches)? 64. 13. Do you perform weight bearing exercise regularly? No. 14. Do you regularly consume dairy products? Yes. 15. Do you drink caffeinated beverages? Yes. 16. At what age did your period start? 15. 17. Are you premenopausal? No. 18. How many full-term pregnancies have you had? 3. 19. Have you ever missed your period for more than 6 months in a row (not including or menopause)? No. TECHNIQUE: Bone mineral density study was performed using the [employer]. FINDINGS: The results of the study expressed as bone mineral density (BMD) are as follows: Lumbar spine L1 to L4: BMD: 0.752 g/cm2. T-score: -2.7. Z-score: -0.9 Neck Left: BMD: 0.619 g/cm2. T-score: -2.1. Z-score: -0.5 Right: BMD: 0.555 g/cm2. T-score: -2.7. Z-score: -1.1 Total Left: BMD: 0.791 g/cm2. T-score: -1.2. Z-score: 0.0 Right: BMD: 0.738 g/cm2. T-score: -1.7. Z-score: -0.4 IMPRESSION: Osteoporosis. *Comparison exams done prior to 02/2020 were performed on different unit, [facility]. Alex Talbot M.D. Diagnostic Radiologist [email or web address] [email or web address] montalvo/Dictated by: Alex Talbot MD @ 10/07/2024 4:44:00 PM (Electronically Signed)
== END 2024-10-07 15:12 | disposition home or self-care (01) ==
LOC: RAD 15:12
PROVIDERS: PCP Physician Assistant Medical; Visit Provider Physician Assistant Medical
DX: Z78.0 Asymptomatic menopausal state (principal); M81.0 Age-related osteoporosis without current pathological fracture
CPT/HCPCS: 77080

== ENCOUNTER 2024-10-18 15:43 | Outpatient (CLI) | payer BC, SELFPAY | END 2024-10-18 15:44 | disposition home or self-care (01) | LOC: FRMREF 15:43 | PROVIDERS: PCP Physician Assistant Medical; Visit Provider Physician Assistant Medical | DX: E53.8 Deficiency of other specified B group vitamins (principal); K50.10 Crohn's disease of large intestine without complications | CPT/HCPCS: 82607; 86140 ==

== ENCOUNTER 2025-01-10 10:40 | Outpatient (CLI) | payer BC, SELFPAY | END 2025-01-10 10:41 | disposition home or self-care (01) | LOC: NFLDREF 01-14 01:44 | PROVIDERS: PCP Physician Assistant Medical; Referring Provider Physician Assistant Medical; Visit Provider Physician Assistant Medical | DX: R39.89 Other symptoms and signs involving the genitourinary system (principal); R42 Dizziness and giddiness; E53.8 Deficiency of other specified B group vitamins | CPT/HCPCS: 87086 ==

== ENCOUNTER 2025-04-26 18:11 | Outpatient (CLI) | payer BC, SELFPAY ==
--- NOTE | 2025-04-26 18:20 | CRLHL7_ITS ---
For Patients: As a result of the Century Cures Act, medical imaging exams and procedure reports are released immediately into your electronic medical record. You may view this report before your referring provider. If you have questions, please contact your health care provider. INDICATION: BILATERAL SCREENING MAMMOGRAM, ASYMPTOMATIC 65 Y/O FEMALE COMPARISON: 01/26/2018, 12/05/2020, 10/20/2023 TECHNIQUE: Digital mammogram in CC and MLO projections including computer-aided detection (CAD) and tomosynthesis. BREAST COMPOSITION: There are scattered areas of fibroglandular density. FINDINGS: No suspicious findings. ASSESSMENT: BI-RADS 1 Negative RECOMMENDATION: Annual screening mammogram. A lay language report of this examination will be provided to the patient. Dictated by: Brigida Aviles MD @ 04/27/2025 11:17:00 (Electronically Signed)
== END 2025-04-26 18:12 | disposition home or self-care (01) ==
LOC: MAMMO 18:11
PROVIDERS: PCP Physician Assistant Medical; Visit Provider Physician Assistant Medical
DX: Z12.31 Encounter for screening mammogram for malignant neoplasm of breast (principal)
CPT/HCPCS: 77063; 77067